=== PATIENT | female | born 1945 | race Caucasian/White ===

== ENCOUNTER 2023-01-05 10:14 | Outpatient (OUT) | payer MEDICARE, SELFPAY ==
--- NOTE | 2023-01-05 10:21 | CT_ITS ---
[address] [address] Patient Name: NUVIA ABRAHAM MRN: [id number] date: 1945 Sex: F Assigned Patient Location: CT Current Patient Location: CT Accession/Order Number: [id number] Exam Date: 01/05/2023 10:22 Report Date: 01/05/2023 14:35 At the request of: AMAN JOSEPH Procedure: CT lung screening low-dose EXAMINATION: CT lung screening low-dose HISTORY: Smoker F17.200 . COMPARISON: CT chest 11/10/2021, 11/08/2019 TECHNIQUE: Axial, Coronal, and Sagittal images were created without the administration of IV contrast material. Dose reduction techniques were achieved by using automated exposure control and/or adjustment of mA and/or kV according to patient size and/or use of iterative reconstruction technique. FINDINGS: LUNGS: Stable 8 mm nodule within right lower lobe superior segment. Stable 10 mm nodule within lingula. Mild emphysematous changes. Calcification of the bronchial pozo bilaterally, unchanged. No significant mucous plugging. PLEURA: No mass, effusion, or pneumothorax. VASCULATURE: No abnormality. SCOTTIE: No mass or pathologic adenopathy. MEDIASTINUM: No mass or pathologic adenopathy. CARDIAC: Atherosclerotic disease. Moderate narrowing of upper abdominal aorta. AORTA: No aneurysm or dissection. CHEST WALL: No mass or axillary adenopathy BONES: Marked degenerative disc disease of the visible lower cervical spine. No bone lesion or fracture. LIMITED ABDOMEN: No suspicious findings. Limited images of the upper abdomen. OTHER: Negative. CT/CT lung screening low-dose IMPRESSION: 1. Lung-RADS 2- Benign Appearance or Behavior. Nodules with a very low likelihood of becoming a clinically active cancer due to size or lack of growth. Follow-up CT Chest in 1 year. Electronically authenticated by: GINGER BROOKS Date: 01/05/2023 14:35
--- NOTE | 2023-01-05 10:23 | MM_ITS ---
Patient: NUVIA ABRAHAM Exam Date: 01/05/2023 : 1945 Gender:F Ordering : DR AMAN GE Admission #: [id number] Family : DR WILY PRADO M.D. Order #: [id number] CLICK HERE TO VIEW EXAM RADIOLOGY REPORT PROCEDURE: MM TOMOSYNTHESIS SCREENING BI COMPARISON: MG MAMM SCREEN 3D [place] CAD, 11/10/2021. MG MAMM [place] SCRN W CAD DIG, 11/15/2019. MG MAMM [place] SCRN W CAD DIG, 08/09/2018. INDICATIONS: Screening Calculator Name NCI Breast Cancer Risk Assessment Tool 5 Year Breast Cancer Risk 10.70% Lifetime Breast Cancer Risk 21.50% Personal Breast Cancer No Personal Ovarian Cancer No Treatments None Family Cancers Mother with breast cancer at age ~50; Sister with breast cancer at age ~60. LOCATION: [facility] BREAST COMPOSITION: Scattered areas fibroglandular density. FINDINGS: DIAGNOSTIC CATEGORY 2--BENIGN FINDING: RIGHT BREAST: No significant suspicious finding. Scattered benign-appearing calcifications are present. No significant change has occurred. LEFT BREAST: No significant suspicious finding. Scattered benign-appearing calcifications are present. Scattered benign-appearing lymph nodes are present. No significant change has occurred. RECOMMENDATIONS: ROUTINE MAMMOGRAM AND CLINICAL EVALUATION IN 12 MONTHS. PLEASE NOTE: A NORMAL MAMMOGRAM DOES NOT EXCLUDE THE POSSIBILITY OF BREAST CANCER. A CLINICALLY SUSPICIOUS PALPABLE LUMP SHOULD BE BIOPSIED. Dictated by: Camacho Dumont M.D. on 01/05/2023 at 13:38 Approved by: Camacho Dumont M.D. on 01/05/2023 at 13:41
== END 2023-01-05 10:15 | disposition home or self-care (01) ==
LOC: CT 10:14
PROVIDERS: PCP Family Medicine; Visit Provider Physician Assistant
DX: F17.200 Nicotine dependence, unspecified, uncomplicated (principal); Z12.31 Encounter for screening mammogram for malignant neoplasm of breast; Z80.3 Family history of malignant neoplasm of breast; R91.8 Other nonspecific abnormal finding of lung field
CPT/HCPCS: 71271; 77063; 77067

== ENCOUNTER 2023-01-13 11:00 | Emergency (ER) | payer MEDICARE, SELFPAY ==
[2023-01-13 11:04] VITALS: BP 181/64; PULSE 64; RESP 16; TEMP 36.4; O2SAT 95; BMI 33.8
--- NOTE | 2023-01-13 11:11 | PC.NURSE ---
Pt had a choking epsiode on a hard boiled egg. Pt's daughter did the Heimlich with no relief. Pt was able to breath and drink during this but was coughing and states she feels fine now just that her throat feels irritated. Pt states has had similar episodes of this in the past and has never been told she has strictures or anything in esophagus.
--- NOTE | 2023-01-13 11:21 | ED_ITS ---
HPI - General Adult General Chief complaint: Shortness of Breath/Dyspnea Stated complaint: CHOKING Time Seen by Provider: 01/13/23 11:18 Source: patient Mode of arrival: ambulance Limitations: no limitations History of Present Illness HPI narrative: Presenting to us after she had an episode of choking while she eating a boiled egg she did mention that she was eating very fast and maybe this is the reason, she does not have a problem frequently with the swallowing The patient daughter tried to give her the Heimlich maneuver but it all resolved by the time the EMS got there and the patient had no difficulty breathing The patient denies any difficulty breathing at the moment no complaints Related Data Allergies Allergy/AdvReac Type Severity Reaction Status Date / Time petrmiketum,white AdvReac Severe Blister Verified 01/13/23 11:08 [From Petroleum Jelly] tagemet AdvReac Severe Diarrhea Uncoded 01/13/23 11:08 Review of Systems ROS Status of ROS 10 or more systems reviewed and unremarkable except as noted in history and below [facility] Social History Smoking status: Current every day smoker Exam Narrative Exam Narrative: Nurses notes and vital signs reviewed and patient is not hypoxic. General: Well-appearing and in no apparent distress. Skin: Warm, dry, no pallor noted. No rash. Head: Normocephalic, atraumatic. Neck: Supple, non-tender. Eye: Pupils are equal, round and EOMI. No scleral icterus. Ears, Nose, Mouth, and Throat: TM are clear, no nasal mucosal hypertrophy. Oral mucosa is moist, no posterior oropharynx erythema, uvula is mid-line Cardiovascular: Regular Rate and Rhythm without murmur, gallop or rub. Respiratory: No accessory muscle use or respiratory distress. Lungs are clear to auscultation, no wheezing, rales or rhonchi Chest Wall: no tenderness Back: No midline thoracic or lumbar vertebral tenderness. No CVA tenderness Musculoskeletal: normal ROM, no calf or popliteal tenderness, no lower extremity edema/swelling GI: Abdomen is soft, non-distended. Normal bowel sounds. No masses appreciated. No tenderness to palpation. No rebound, guarding, or rigidity noted. Neurological: A&O x4. No cranial nerve dysfunction observed. No truncal ataxia. Moves all extremities. Sensation intact. Psychiatric: Cooperative and interactive. Normal mood and affect. Constitutional Vital Signs, click to edit/add: Last Vital Signs Temp 97.6 F 01/13/23 11:04 Pulse 64 01/13/23 11:04 Resp 16 01/13/23 11:04 BP 181/64 H 01/13/23 11:04 Pulse Ox 95 01/13/23 11:04 O2 Del Method Room Air 01/13/23 11:04 Course Vital Signs Vital signs: Vital Signs Temperature 97.6 F 01/13/23 11:04 Pulse Rate 64 01/13/23 11:04 Respiratory Rate 16 01/13/23 11:04 Blood Pressure 181/64 H 01/13/23 11:04 Pulse Oximetry 95 01/13/23 11:04 Oxygen Delivery Method Room Air 01/13/23 11:04 Temperature 97.6 F 01/13/23 11:04 Pulse Rate 64 01/13/23 11:04 Respiratory Rate 16 01/13/23 11:04 Blood Pressure 181/64 H 01/13/23 11:04 Pulse Oximetry 95 01/13/23 11:04 Oxygen Delivery Method Room Air 01/13/23 11:04 Medical Decision Making MDM Narrative Medical decision making narrative: The patient examination was completely benign her lung examination was normal with good air entry bilaterally She does not have any complaint at the moment but I did explain to her that she need to follow-up with a primary care doctor for further evaluation of her swallow because could be underlying problem The patient to avoid eating anything that hard or in big size The patient also was noted to have elevated blood pressure which according to her is a old problem as she has a history of hypertension The patient is to follow up with primary care physician in next 2-3 days or to return to the emergency department should any of the signs or symptoms worsen or new symptoms develop. The patient agrees with the following Diagnosis and Treatment plan and the patient will be discharged home. Discharge Plan Discharge Chief Complaint: Shortness of Breath/Dyspnea Clinical Impression: Choking Patient Disposition: Home, Self-Care Time of Disposition Decision: 11:19 Condition: Good Mode of Transportation: Private Vehicle Instructions: Food Impaction (ED) Stand Alone Forms: Portal Instructions Referrals: WILY PRADO [Primary Care Provider] - 1 week
== END 2023-01-13 11:40 | disposition home or self-care (01) ==
PROVIDERS: Emergency Provider Emergency Medicine; PCP Family Medicine
DX: T17.928A Food in respiratory tract, part unspecified causing other injury, initial encounter (principal); F17.210 Nicotine dependence, cigarettes, uncomplicated
CPT/HCPCS: 99283

== ENCOUNTER 2023-05-15 01:44 | Observation (INO) | payer MEDICARE, SELFPAY ==
[2023-05-15] VITALS (30 sets, daily range): BP systolic 182–271; BP diastolic 68–106; PULSE 60–80; RESP 2–28; TEMP 36.4–36.7; O2SAT 94; BMI 29.6
--- NOTE | 2023-05-15 01:48 | CT_ITS ---
The [address] [address] Patient Name: NUVIA ABRAHAM MRN: [id number] date: 1945 Sex: F Assigned Patient Location: ER Current Patient Location: ER Accession/Order Number: [id number] Exam Date: 05/15/2023 02:01 Report Date: 05/15/2023 02:50 At the request of: TERRANCE GENAO Procedure: CT head/brain wo con EXAM: CT head/brain wo con HISTORY: fall COMPARISON: CT head, 05/15/2023. TECHNIQUE: Nonenhanced CT imaging of the head with sagittal and coronal reconstructions. Dose reduction techniques were achieved by using automated exposure control and/or adjustment of mA and/or kV according to patient size and/or use of iterative reconstruction technique. FINDINGS: No intracranial hemorrhage, edema, mass effect or midline shift is seen. The brain parenchyma, ventricles and extra-axial CSF spaces appear age-appropriate. The calvarium and imaged facial bones appear intact. There is a right maxillary retention cyst or polyp. The paranasal sinuses are otherwise clear. There is nasal septal deviation to the right. The bilateral mastoid air cells are clear. No extracranial soft tissue gas, loculated fluid or foreign body is seen. CT/CT head/brain wo con IMPRESSION: No calvarial fracture or acute intracranial abnormality. Electronically authenticated by: SON SHELLEY Date: 05/15/2023 02:50
--- NOTE | 2023-05-15 01:48 | CT_ITS ---
[address] [address] Patient Name: NUVIA ABRAHAM MRN: [id number] date: 1945 Sex: F Assigned Patient Location: Current Patient Location: Accession/Order Number: [id number] Exam Date: 05/15/2023 02:01 Report Date: 05/15/2023 02:31 At the request of: TERRANCE GENAO Procedure: CT cervical spine wo con EXAMINATION: CT Cervical Spine without IV Contrast TECHNIQUE: Standard protocol axial Cervical spine CT was performed without intravenous contrast. Multiplanar reformatted images were created according to the routine protocol. QPP DOCUMENTATION: At least one of the following dose reduction techniques was utilized: Iterative reconstruction, and/or Automatic Exposure Control, and/or mA/kV adjustment based on body size. INDICATION: . fall COMPARISON: None FINDINGS: Segmentation: There are 7 cervical vertebrae. Alignment: Minimal anterolisthesis of C3 on C4 and C4 on C5. Vertebrae: No fractures or significant losses of vertebral body heights. Intervertebral Discs: Moderate degenerative disc disease at C5-C6 and C6-C7. There are anterior endplate osteophytes at these levels. Spinal Canal: There are small posterior disc osteophyte complexes at C5-C6 and C6-C7 which contribute to mild spinal canal narrowing. Neural foramina: There is multilevel facet arthropathy which is most severe bilaterally at C3-C4 and on the right at C4-C5 and C5-C6. There is also mild uncovertebral arthropathy at several levels. These findings result in mild foraminal narrowing at C3-C4 and C5-C6. Paraspinal soft tissues: Unremarkable. Mild emphysematous changes within the upper lungs. CT/CT cervical spine wo con IMPRESSION: 1. No CT evidence of acute abnormalities throughout the cervical spine. 2. Multilevel degenerative changes. Electronically authenticated by: CARLOZ VALDEZ Date: 05/15/2023 02:31
--- NOTE | 2023-05-15 01:54 | ED_ITS ---
HPI - Fall General Chief Complaint: Fall Stated Complaint: FALL Time Seen by Provider: 05/15/23 01:47 Source: patient Mode of arrival: ambulance History of Present Illness HPI Narrative: 77-year-old female presents to the emergency department for a fall. She fell and hit the back of her head. She takes Plavix and aspirin. She complains of headache. She was transported here by paramedics with a c-collar in place. No other apparent injury. She was recently started on baclofen. She fell just before coming into the emergency department. Related Data Home Medications Medication Instructions Recorded Confirmed B-Complex 05/15/23 CoQ-10 30 mg PO 05/15/23 Fish Oil 1,000 mg PO 05/15/23 Lantus Solostar U-100 Insulin 05/15/23 Miralax 17 g 05/15/23 [place] Oil 05/15/23 Ventolin HFA 05/15/23 Zyrtec 10 mg PO 05/15/23 alpha lipoic acid 200 mg capsule 200 mg PO DAILY 05/15/23 05/15/23 aspirin 81 mg capsule 81 mg PO DAILY 05/15/23 05/15/23 atorvastatin 20 mg tablet 20 mg PO DAILY 05/15/23 05/15/23 baclofen 10 mg tablet 10 mg PO Q12H 05/15/23 05/15/23 calcium citrate-vitamin D3 05/15/23 clopidogrel 75 mg tablet 75 mg PO DAILY 05/15/23 05/15/23 famotidine 20 mg PO 05/15/23 fenofibrate nanocrystallized 145 145 mg PO 05/15/23 mg tablet ferrous sulfate 325 mg PO 05/15/23 gabapentin 600 mg tablet 600 mg PO Q8H 05/15/23 05/15/23 hydrochlorothiazide 25 mg tablet 25 mg PO DAILY 05/15/23 05/15/23 ipratropium 0.5 mg-albuterol 3 mg 3 ml inhalation Q6H 05/15/23 05/15/23 (2.5 mg base)/3 mL nebulization soln levothyroxine 88 mcg tablet 88 mcg PO DAILY 05/15/23 05/15/23 lisinopril 40 mg tablet 40 mg PO DAILY 05/15/23 05/15/23 magnesium 30 mg PO 05/15/23 melatonin 5 mg capsule 5 mg PO 05/15/23 meloxicam 15 mg tablet 15 mg PO DAILY 05/15/23 05/15/23 metoprolol tartrate 25 mg tablet 25 mg PO TID 05/15/23 05/15/23 multivitamin (Daily Multi-Vitamin 1 tab PO DAILY 05/15/23 05/15/23 tablet) niacin 500 mg PO 05/15/23 omeprazole 20 mg capsule,delayed 20 mg PO 05/15/23 release oxcarbazepine 300 mg tablet 300 mg PO BID 05/15/23 05/15/23 sitagliptin phosphate 50 2 tab PO DAILY 05/15/23 05/15/23 mg-metformin 500 mg tablet (Janumet) sodium chloride 1,000 mg PO 05/15/23 tiotropium 2.5 mcg-olodaterol 2.5 2 puff inhalation Q24H 05/15/23 05/15/23 mcg/actuation mist for inhalation (Stiolto Respimat) torsemide 10 mg tablet 10 mg PO DAILY 05/15/23 05/15/23 tramadol 50 mg tablet 100 mg PO Q6H PRN pain 05/15/23 05/15/23 vitamin E 268 mg (400 unit) capsule 268 mg PO DAILY 05/15/23 05/15/23 zinc gluconate 50 mg PO 05/15/23 Allergies Allergy/AdvReac Type Severity Reaction Status Date / Time petrolatum,white AdvReac Severe Blister Verified 01/13/23 11:08 [From Petroleum Jelly] tagemet AdvReac Severe Diarrhea Uncoded 01/13/23 11:08 Review of Systems ROS Narrative A ten point review of systems is negative except as noted above. PFSH PFSH Social History Smoking status: Current every day smoker Exam Narrative Exam Narrative: Nurses note and vital signs reviewed and patient is not hypoxic. General: The patient appears well and in no apparent distress. Patient is resting comfortably on cart. Skin: Warm, dry, no pallor noted. There is no rash noted. Head: Normocephalic Eye: Normal conjunctiva, no drainage Ears, Nose, Mouth, and Throat: oral mucosa is moist. Nares patent. Cardiovascular: Regular Rate and Rhythm Respiratory: Patient is in no distress, no accessory muscle use, lungs are clear to auscultation, no wheezing, rales or rhonchi Back: non-tender GI: soft and nontender Musculoskeletal: no tenderness to palpation at all four extremities. Neurological: A&O x4, normal speechwith low to answer questions but answers appropriately Psychiatric: Cooperative Constitutional Vital Signs, click to edit/add: Last Vital Signs Temp 98.0 F 05/15/23 01:43 Pulse 62 05/15/23 01:43 Resp 16 05/15/23 01:43 BP 264/90 H 05/15/23 01:53 Pulse Ox 94 L 05/15/23 01:43 O2 Del Method Room Air 05/15/23 01:43 Course Vital Signs Vital signs: Vital Signs Temperature 98.0 F 05/15/23 01:43 Pulse Rate 62 05/15/23 01:43 Respiratory Rate 16 05/15/23 01:43 Blood Pressure 268/98 H 05/15/23 01:43 Pulse Oximetry 94 L 05/15/23 01:43 Oxygen Delivery Method Room Air 05/15/23 01:43 Temperature 98.0 F 05/15/23 01:43 Pulse Rate 62 05/15/23 01:43 Respiratory Rate 16 05/15/23 01:43 Blood Pressure 264/90 H 05/15/23 01:53 Pulse Oximetry 94 L 05/15/23 01:43 Oxygen Delivery Method Room Air 05/15/23 01:43 MDM - Fall MDM Narrative Medical decision making narrative: CT brain and CT C-spine are negative. Bloodwork nonspecific. The patient was already on melatonin and gabapentin and Trileptal and Ultram and then baclofen was added this week. Since then she's had increasing weakness and has been sleeping a lot. My clinical impression is that her symptoms are due to overmedication and she's being admitted. Findings discussed with her family. Differential Diagnosis Differential diagnosis: Likely syncope and other (intracranial hemorrhage, fall, head contusion) Lab Data Attestation: I reviewed the patient's lab results. Labs: Lab Results 05/15/23 Range/Units 01:43 WBC 6.7 (4.0-11.0) 10^3/uL RBC 4.77 (4.20-5.40) 10^6/uL Hgb 14.6 (12.0-16.0) g/dL Hct 44.2 (36.0-48.0) % MCV 92.7 (81.0-99.0) fL MCH 30.6 (26.7-34.0) pg MCHC 33.0 (29.9-35.2) g/dL RDW 14.7 (11.0-15.0) % Plt Count 308 (150-450) 10^3/uL MPV 9.1 L (9.5-13.5) fL Neut % (Auto) 63.9 (43.0-75.0) % Lymph % (Auto) 21.2 (20.5-60.0) % Schleicher % (Auto) 10.9 (1.7-12.0) % Eos % (Auto) 2.4 (0.9-7.0) % Baso % (Auto) 0.6 (0.2-2.0) % Neut # (Auto) 4.3 (1.4-6.5) 10^3/uL Lymph # (Auto) 1.4 (1.2-3.8) 10^3/uL Schleicher # (Auto) 0.7 (0.3-0.8) 10^3/uL Eos # (Auto) 0.2 (0.0-0.7) 10^3/uL Baso # (Auto) 0.0 (0.0-0.1) 10^3/uL Abs Immat Gran (auto) 0.07 H (0.00-0.03) 10^3/uL Imm/Tot Granulo (auto) 1.0 H (0.0-0.5) % Sodium 138 (136-145) mmol/L Potassium 3.6 (3.5-5.1) mmol/L Chloride 101 (98-107) mmol/L Carbon Dioxide 31.4 (21.0-32.0) mmol/L Anion Gap 9.2 BUN 25.0 H (7.0-18.0) mg/dL Creatinine 0.86 (0.55-1.02) mg/dL Est GFR ( Amer) >60 (>=60) Est GFR (Non-Af Amer) >60 (>=60) BUN/Creatinine Ratio 29.1 Glucose 100 (74-106) mg/dL Calcium 10.2 H (8.5-10.1) mg/dL Imaging Data CT C-spine and CT brain: Radiologist's impression: Procedure: CT cervical spine wo con EXAMINATION: CT Cervical Spine without IV Contrast TECHNIQUE: Standard protocol axial Cervical spine CT was performed without intravenous contrast. Multiplanar reformatted images were created according to the routine protocol. Q DOCUMENTATION: At least one of the following dose reduction techniques was utilized: Iterative reconstruction, and/or Automatic Exposure Control, and/or mA/kV adjustment based on body size. INDICATION: . fall COMPARISON: None FINDINGS: Segmentation: There are 7 cervical vertebrae. Alignment: Minimal anterolisthesis of C3 on C4 and C4 on C5. Vertebrae: No fractures or significant losses of vertebral body heights. Intervertebral Discs: Moderate degenerative disc disease at C5-C6 and C6-C7. There are anterior endplate osteophytes at these levels. Spinal Canal: There are small posterior disc osteophyte complexes at C5-C6 and C6-C7 which contribute to mild spinal canal narrowing. Neural foramina: There is multilevel facet arthropathy which is most severe bilaterally at C3-C4 and on the right at C4-C5 and C5-C6. There is also mild uncovertebral arthropathy at several levels. These findings result in mild foraminal narrowing at C3-C4 and C5-C6. Paraspinal soft tissues: Unremarkable. Mild emphysematous changes within the upper lungs. IMPRESSION: 1. No CT evidence of acute abnormalities throughout the cervical spine. 2. Multilevel degenerative changes. Electronically authenticated by: CARLOZ VALDEZ Date: 05/15/2023 02:31 Procedure: CT head/brain wo con EXAM: CT head/brain wo con HISTORY: fall COMPARISON: CT head, 05/15/2023. TECHNIQUE: Nonenhanced CT imaging of the head with sagittal and coronal reconstructions. Dose reduction techniques were achieved by using automated exposure control and/or adjustment of mA and/or kV according to patient size and/or use of iterative reconstruction technique. FINDINGS: No intracranial hemorrhage, edema, mass effect or midline shift is seen. The brain parenchyma, ventricles and extra-axial CSF spaces appear age-appropriate. The calvarium and imaged facial bones appear intact. There is a right maxillary retention cyst or polyp. The paranasal sinuses are otherwise clear. There is nasal septal deviation to the right. The bilateral mastoid air cells are clear. No extracranial soft tissue gas, loculated fluid or foreign body is seen. IMPRESSION: No calvarial fracture or acute intracranial abnormality. Electronically authenticated by: SON SHELLEY Date: 05/15/2023 02:50 ECG Data Attestation: I personally reviewed and interpreted this ECG as follows: (EKG on my interpretation shows sinus rhythm with a rate of 58 and no acute change) Discharge Plan Discharge Chief Complaint: Fall Clinical Impression: Medication side effect, Generalized weakness Patient Disposition: Admitted as Observation Time of Disposition Decision: 03:18 Condition: Good Prescriptions / Home Meds: No Action baclofen 10 mg tablet 10 mg PO Q12H clopidogrel 75 mg tablet 75 mg PO DAILY fenofibrate nanocrystallized 145 mg tablet 145 mg PO gabapentin 600 mg tablet 600 mg PO Q8H hydrochlorothiazide 25 mg tablet 25 mg PO DAILY ipratropium-albuterol 0.5 mg-3 mg(2.5 mg base)/3 mL solution for nebulization 3 ml INHALATION Q6H levothyroxine 88 mcg tablet 88 mcg PO DAILY lisinopril 40 mg tablet 40 mg PO DAILY meloxicam 15 mg tablet 15 mg PO DAILY metoprolol tartrate 25 mg tablet 25 mg PO TID omeprazole 20 mg capsule,delayed release(DR/EC) 20 mg PO oxcarbazepine 300 mg tablet 300 mg PO BID Janumet 50-500 mg tablet 2 tab PO DAILY Stiolto Respimat 2.5-2.5 mcg/actuation mist 2 puff INHALATION Q24H torsemide 10 mg tablet 10 mg PO DAILY tramadol 50 mg tablet 100 mg PO Q6H PRN (Reason: pain) alpha lipoic acid 200 mg capsule 200 mg PO DAILY vitamin E 268 mg (400 unit) capsule 268 mg PO DAILY aspirin 81 mg capsule 81 mg PO DAILY atorvastatin 20 mg tablet 20 mg PO DAILY B-Complex calcium citrate-vitamin D3 CoQ-10 30 mg PO [place] Oil famotidine 20 mg PO ferrous sulfate 325 mg PO Fish Oil 1,000 mg PO melatonin 5 mg capsule 5 mg PO magnesium 30 mg PO multivitamin [Daily Multi-Vitamin] Tablet 1 tab PO DAILY niacin 500 mg PO sodium chloride 1,000 mg PO Miralax 17 g Lantus Solostar U-100 Insulin Ventolin HFA zinc gluconate 50 mg PO Zyrtec 10 mg PO Stand Alone Forms: Portal Instructions Referrals: WILY PRADO [Primary Care Provider] - 1 week
--- NOTE | 2023-05-15 01:58 | ECG_ITS ---
The [facility] Test Date: 2023-05-15 Pat Name: NUVIA ABRAHAM Department: Room: - Gender: Female Lan Support Specialist: : 1945 Requested By: WILY PRADO Order Number: [id number] Reading MD: RAIN CLARK Measurements Intervals [place] Rate: 58 P: 70 ME: 164 QRS: 66 QRSD: 92 T: 43 QT: 446 QTc: 443 Interpretive Statements [address]/T wave changes, can't exclude inferolateral ischemia 9130 borderline ECG No previous ECG available for comparison Electronically Signed On 05-16-2023 17:33:55 EST by RAIN CLARK
--- NOTE | 2023-05-15 01:59 | PC.NURSE ---
Patient brought in by EMS after fallinng at home. She was walking out of bathroom and fell backwards, hitting her head. She is on Plavix and Aspirin. Her daughter that she lives with states she was started on Baclofen last month and has been having episodes of grogginess and being slow to respond since starting this medication. On arrival to the ED, patient is very slow to respond, although she does answer questions appropriately when she is able to wake up long enough to respond. She admits to pain in her head but denies pain anywhere else.
[2023-05-15 02:07] LABS: Basophils Percent Auto 0.6 % (0.2-2.0); Eosinophils Absolute Auto 0.2 10^3/uL (0.0-0.7); Eosinophils Percent Auto 2.4 % (0.9-7.0); Hematocrit 44.2 % (36.0-48.0); Hemoglobin 14.6 g/dL (12.0-16.0); Immature Granulocytes Abs Auto 0.07 10^3/uL (0.00-0.03); Lymphocytes Absolute Auto 1.4 10^3/uL (1.2-3.8); Lymphocytes Percent Auto 21.2 % (20.5-60.0); Mean Corpuscular Hemoglobin 30.6 pg (26.7-34.0); Mean Corpuscular Volume 92.7 fL (81.0-99.0); Mean Platelet Volume 9.1 fL (9.5-13.5); Monocytes Absolute Auto 0.7 10^3/uL (0.3-0.8); Monocytes Percent Auto 10.9 % (1.7-12.0); Neutrophils Absolute Auto 4.3 10^3/uL (1.4-6.5); Neutrophils Percent Auto 63.9 % (43.0-75.0); Platelet Count 308 10^3/uL (150-450); Red Blood Count 4.77 10^6/uL (4.20-5.40); Red Cell Distribution Width 14.7 % (11.0-15.0); White Blood Count 6.7 10^3/uL (4.0-11.0)
[2023-05-15 02:14] LABS: Anion Gap 9.2; BUN Creatinine Ratio 29.1; Calcium 10.2 mg/dL (8.5-10.1); Carbon Dioxide 31.4 mmol/L (21.0-32.0); Chloride 101 mmol/L (98-107); Estimated GFR (African America >60 (>=60); Estimated GFR (Non-African Ame >60 (>=60); Glucose 100 mg/dL (74-106); Potassium 3.6 mmol/L (3.5-5.1); Sodium 138 mmol/L (136-145)
[2023-05-15] MEDS: HYDRALAZINE HCL 20 MG/ML VIAL 10 MG IVP (03:48)
--- NOTE | 2023-05-15 05:36 | W.PM.TELEPN ---
Progress Note: Subjective Subjective Interval history: CC: Fall HPI: This is a 77 years old female with past medical history significant for diabetes, hypertension, chronic back pain who presents for evaluation of change in mental status, confusion, fall. Apparently patient taking multiple medications for management of her chronic back pain. Recently baclofen been added to his regimen. Family stating that with addition of the medication patient become more confused, obtunded, had difficulty walking and finally fell on the day of her presentation. On evaluation emergency room patient found to be profoundly hypertensive. She responded to IV hydralazine. Trauma workup was negative. Exam Narrative Exam Narrative: Physical Exam: Not in distress, pleasant, lucid, cooperative, Head - atraumatic, eyes - pupils equal, round, reactive to light, extra ocular movement intact, MMM Neck - supple, thyroid not enlarged, LN not palpated Lungs - clear to auscultation, no dullness on percussion CVS - heart sounds S1, S2, no additional murmurs gallop, regular rate and rhythm Gastrointestinal?abdomen is soft, non-tender, non-distended, no organomegaly, positive bowel sounds Extremities no clubbing, cyanosis or edema Neurological?cranial nerve II?XII grossly intact, no meningeal signs, no cerebellar signs, no sensory deficit Musculoskeletal - joints, no effusions, ROM preserved Dermatological - the skin dry, warm, no rashes Psychiatric?patient is AAO X3, patient has normal affect Constitutional Vital Signs, click to edit/add: Last Vital Signs Temp 97.8 F 05/15/23 04:41 Pulse 69 05/15/23 04:46 Resp 16 05/15/23 04:41 BP 212/75 H 05/15/23 04:41 Pulse Ox 94 L 05/15/23 04:46 O2 Del Method Room Air 05/15/23 04:46 Progress Note: Objective Labs Labs: Short CBC 05/15/23 Range/Units 01:43 WBC 6.7 (4.0-11.0) 10^3/uL Hgb 14.6 (12.0-16.0) g/dL Hct 44.2 (36.0-48.0) % Plt Count 308 (150-450) 10^3/uL BMP 05/15/23 01:43 Sodium 138 Potassium 3.6 Chloride 101 Carbon Dioxide 31.4 BUN 25.0 H Creatinine 0.86 Glucose 100 Calcium 10.2 H Progress Note: A&P Assessment and Plan (1) Toxic encephalopathy: Assessment and Plan: Most probably related to side effect of the medication, especially baclofen and combination of with the rest of your medications. Medications currently on hold. Anticipate resolution of the symptoms within the next 12-24 hours. Will going to provide fall precautions. Symptomatic care. (2) Diabetes: Assessment and Plan: I ordered ADA diet, Accu-Cheks, coverage with insulin sliding scale (3) Hypertension: Assessment and Plan: Patient's blood pressure seems to be poorly controlled on presentation. Home medications restarted. Continue to utilize hydralazine as needed (patient is relatively bradycardic). (4) Chronic back pain: Assessment and Plan: Defer to outpatient management. Hold on baclofen for now Plan As the provider for the telehealth service, I attest that I introduced myself to the patient, provided my credentials, disclosed by location and determined that based on a review of the patient's chart and discussion with members of the patient's treatment team, telemedicine via real-time, 2 way, and interactive audio and video platform is an appropriate and effective means of providing the service. ?The patient and I mutually agree this visit is appropriate for telemedicine. ?The virtual encounter was taken place from? [place], [place]. ?The encounter took approximately 35 minutes. ?The nurse was present during the entire time and I was able to move the stethoscope in appropriate directions. ?The patient was evaluated at the Hospital ? Portions of this note may be dictated using [employer]ged[employer] voice recognition software. Variances in spelling and vocabulary are possible and unintentional. Not all errors may be caught and/or corrected. Please notify the author if any discrepancies are noted and/or if the meaning of any statement is unclear.? ? Patient verbally consented for treatment via video visit with patient currently located at the [facility] and provider located in [place]. Telemedicine Attestation Telemedicine Attestation I conducted this encounter from [[place]] via secure live, [id number] video conference with the patient, located at [facility] with [toxic encephalopathy]. Prior to the interview, the risks and benefits of telemedicine were discussed with the patient and verbal consent was obtained.
[2023-05-15 06:20] LABS: Basophils Absolute Auto 0.1 10^3/uL (0.0-0.1); Basophils Percent Auto 0.4 % (0.2-2.0); Eosinophils Absolute Auto 0.1 10^3/uL (0.0-0.7); Eosinophils Percent Auto 0.8 % (0.9-7.0); Hematocrit 45.2 % (36.0-48.0); Hemoglobin 14.8 g/dL (12.0-16.0); Immature Granulocytes Abs Auto 0.06 10^3/uL (0.00-0.03); Immature Granulocytes Pct Auto 0.5 % (0.0-0.5); Lymphocytes Absolute Auto 1.8 10^3/uL (1.2-3.8); Lymphocytes Percent Auto 14.3 % (20.5-60.0); Mean Corpuscular HGB Conc 32.7 g/dL (29.9-35.2); Mean Corpuscular Hemoglobin 30.5 pg (26.7-34.0); Monocytes Absolute Auto 0.8 10^3/uL (0.3-0.8); Monocytes Percent Auto 6.8 % (1.7-12.0); Neutrophils Absolute Auto 9.6 10^3/uL (1.4-6.5); Neutrophils Percent Auto 77.2 % (43.0-75.0); Platelet Count 291 10^3/uL (150-450); Red Blood Count 4.86 10^6/uL (4.20-5.40); Red Cell Distribution Width 14.6 % (11.0-15.0); White Blood Count 12.4 10^3/uL (4.0-11.0)
[2023-05-15 06:54] LABS: C Reactive Protein <0.50 mg/dL (<=0.50)
[2023-05-15] MEDS: METOPROLOL TARTRATE 25 MG TABLET PO ×2 (07:46→11:45)
[2023-05-15 07:50] LABS: Glucometer 114 mg/dL (74-106)
[2023-05-15] MEDS: CLOPIDOGREL BISULFATE 75 MG TABLET PO (08:51)
[2023-05-15] MEDS: ATORVASTATIN CALCIUM 20 MG TABLET PO (08:51)
[2023-05-15] MEDS: HYDROCHLOROTHIAZIDE 25 MG TABLET PO (08:51)
[2023-05-15] MEDS: LEVOTHYROXINE SODIUM 88 MCG TABLET PO (08:51)
[2023-05-15] MEDS: LISINOPRIL 20 MG TABLET 40 MG PO (08:51)
[2023-05-15] MEDS: ASPIRIN 81 MG TAB.CHEW PO (08:51)
[2023-05-15] MEDS: TORSEMIDE 20 MG TABLET 10 MG PO (08:51)
[2023-05-15 11:40] LABS: Glucometer 119 mg/dL (74-106)
--- NOTE | 2023-05-15 14:53 | PM.HP ---
H&P: HPI History of Present Illness Chief complaint: FALL Narrative: 77 y/o female to ER after a fall. History of chronic back pain and on neurontin, trileptal, and ultram. Recently added baclofen and also uses melatonin QHS. Patient seemed more tired than usual and confused. Fell and hit head. Brought to ER and CT head and C-spine negative. BP initially elevated but responded to IV medicaiton. Patient remained very sedated and concerned of medication side effects. Admitted for monitoring. Improved overnight. Awake and alert this am. Feels well and no new concerns. Review of Systems ROS Constitutional Denies: fever, chills or fatigue Cardiovascular Denies: chest pain, palpitations or edema Respiratory Denies: shortness of breath, cough or wheezing Gastrointestinal Denies: abdominal pain, nausea, vomiting or diarrhea Genitourinary Denies: painful urination [facility] Medical History (Updated 05/15/23 @ 08:42 by Etienne Espitia MD) Medication side effect ?T88.7XXA - Unspecified adverse effect of drug or medicament, initial encounter (ICD-10) Chronic back pain ?M54.9 - Dorsalgia, unspecified (ICD-10) ?G89.29 - Other chronic pain (ICD-10) Diabetes ?E11.9 - Type 2 diabetes mellitus without complications (ICD-10) Choking ?T17.308A - Unspecified foreign body in larynx causing other injury, initial encounter (ICD-10) GERD (gastroesophageal reflux disease) ?K21.9 - Gastro-esophageal reflux disease without esophagitis (ICD-10) Social History Smoking status: Current every day smoker Meds Home Medications and Allergies Home Medications Medication Instructions Recorded Confirmed Type B-Complex 05/15/23 History CoQ-10 30 mg PO DAILY 05/15/23 05/15/23 History Fish Oil 1,000 mg PO 05/15/23 History Lantus Solostar U-100 Insulin 05/15/23 History Miralax 17 g PO .qd PRN constipation 05/15/23 05/15/23 History [place] Oil 05/15/23 History Ventolin HFA 05/15/23 History Zyrtec 10 mg PO .qd PRN allergy symptoms 05/15/23 05/15/23 History alpha lipoic acid 200 mg capsule 200 mg PO DAILY 05/15/23 05/15/23 History aspirin 81 mg capsule 81 mg PO DAILY 05/15/23 05/15/23 History atorvastatin 20 mg tablet 20 mg PO DAILY 05/15/23 05/15/23 History calcium citrate-vitamin D3 05/15/23 History clopidogrel 75 mg tablet 75 mg PO DAILY 05/15/23 05/15/23 History famotidine 20 mg PO 05/15/23 History fenofibrate nanocrystallized 145 145 mg PO .qd 05/15/23 05/15/23 History mg tablet ferrous sulfate 325 mg PO 05/15/23 History gabapentin 600 mg tablet 600 mg PO Q8H 05/15/23 05/15/23 History hydrochlorothiazide 25 mg tablet 25 mg PO DAILY 05/15/23 05/15/23 History ipratropium 0.5 mg-albuterol 3 mg 3 ml inhalation Q6H 05/15/23 05/15/23 History (2.5 mg base)/3 mL nebulization soln levothyroxine 88 mcg tablet 88 mcg PO DAILY 05/15/23 05/15/23 History lisinopril 40 mg tablet 40 mg PO DAILY 05/15/23 05/15/23 History magnesium 30 mg PO 05/15/23 History melatonin 5 mg capsule 5 mg PO 05/15/23 History meloxicam 15 mg tablet 15 mg PO DAILY 05/15/23 05/15/23 History metoprolol tartrate 25 mg tablet 25 mg PO TID 05/15/23 05/15/23 History multivitamin (Daily Multi-Vitamin 1 tab PO DAILY 05/15/23 05/15/23 History tablet) niacin 500 mg PO .qd 05/15/23 05/15/23 History omeprazole 20 mg capsule,delayed 20 mg PO .qd 05/15/23 05/15/23 History release oxcarbazepine 300 mg tablet 300 mg PO BID 05/15/23 05/15/23 History sitagliptin phosphate 50 2 tab PO DAILY 05/15/23 05/15/23 History mg-metformin 500 mg tablet (Janumet) sodium chloride 1,000 mg PO 05/15/23 History tiotropium 2.5 mcg-olodaterol 2.5 2 puff inhalation Q24H 05/15/23 05/15/23 History mcg/actuation mist for inhalation (Stiolto Respimat) torsemide 10 mg tablet 10 mg PO DAILY 05/15/23 05/15/23 History tramadol 50 mg tablet 100 mg PO Q6H PRN pain 05/15/23 05/15/23 History vitamin E 268 mg (400 unit) capsule 268 mg PO DAILY 05/15/23 05/15/23 History zinc gluconate 50 mg PO 05/15/23 History Allergies Allergy/AdvReac Type Severity Reaction Status Date / Time petrolatum,white AdvReac Severe Blister Verified 01/13/23 11:08 [From Petroleum Jelly] tagemet AdvReac Severe Diarrhea Uncoded 01/13/23 11:08 Exam Constitutional Vital Signs, click to edit/add: Last Vital Signs Temp 97.6 F 05/15/23 11:41 Pulse 60 05/15/23 10:50 Resp 10 L 05/15/23 10:50 BP 186/82 H 05/15/23 08:51 Pulse Ox 94 L 05/15/23 04:46 O2 Del Method Room Air 05/15/23 11:41 Documenting provider has reviewed patient's vital signs: yes Common normals: no apparent distress, oriented x3 and alert HENMT Common normals: normocephalic Eye Common normals: PERRL and EOMs intact bilaterally Respiratory Common normals: normal respiratory effort and clear to auscultation bilaterally Cardio Common normals: regular rate, regular rhythm, no gallops, no murmurs and no rub GI Common normals: Normal to inspection, nondistended, normoactive bowel sounds present and non-tender Extremity Common normals: no pedal edema Results Labs Labs: Short CBC 05/15/23 05/15/23 Range/Units 01:43 06:06 WBC 6.7 12.4 H (4.0-11.0) 10^3/uL Hgb 14.6 14.8 (12.0-16.0) g/dL Hct 44.2 45.2 (36.0-48.0) % Plt Count 308 291 (150-450) 10^3/uL BMP 05/15/23 01:43 Sodium 138 Potassium 3.6 Chloride 101 Carbon Dioxide 31.4 BUN 25.0 H Creatinine 0.86 Glucose 100 Calcium 10.2 H Assessment and Plan Assessment and Plan (1) Toxic encephalopathy: (2) Fall in elderly patient: (3) Sedated due to multiple medications: (4) Lumbar degenerative disc disease: (5) Generalized weakness: (6) Type 2 diabetes mellitus with hyperglycemia: (7) Hypertension: (8) PVD (peripheral vascular disease): Plan Admitted after fall and increased sedation related to medication. Improved over time and no further symptoms. Discharge home. Stop baclofen but resume other medication as directed. F/u with PCP in 1-2 weeks and can adjust medication as needed.
== END 2023-05-15 12:42 | disposition home or self-care (01) ==
LOC: ER 03:18 → ICU 04:28
PROVIDERS: Internal Medicine; Admitting Provider Family Medicine; Emergency Provider Emergency Medicine; PCP Family Medicine; Visit Provider Family Medicine
DX: G92.8 Other toxic encephalopathy (principal); R53.1 Weakness; M51.36 Other intervertebral disc degeneration, lumbar region; E11.65 Type 2 diabetes mellitus with hyperglycemia; I73.9 Peripheral vascular disease, unspecified; I10 Essential (primary) hypertension; G89.29 Other chronic pain; M54.9 Dorsalgia, unspecified; T50.915A Adverse effect of multiple unspecified drugs, medicaments and biological substances, initial encounter; F17.210 Nicotine dependence, cigarettes, uncomplicated; Z79.82 Long term (current) use of aspirin; Z79.899 Other long term (current) drug therapy; Z79.890 Hormone replacement therapy; Z79.02 Long term (current) use of antithrombotics/antiplatelets; K21.9 Gastro-esophageal reflux disease without esophagitis; W19.XXXA Unspecified fall, initial encounter
CPT/HCPCS: 36415; 70450; 72125; 80048; 82948; 85025; 86140; 93005; 96374; 99285; G0378; Q3014

== ENCOUNTER 2023-08-12 14:24 | Outpatient (OUT) | payer MEDICARE, SELFPAY ==
--- OUTSIDE RECORDS SUMMARY | 2023-08-12 14:28 | XMS_ITS | CCD ---
Author Organization [facility] Care Team Providers Care Devil Tender Name Role Phone Mikie West Unavailable MD Wily Prado Primary Care Provider MD Wily Prado Referring Provider [phone] CARMELA Tijerina Attending Provider MD Wily Prado Primary Care Provider MD Wily Prado Referring Provider CARMELA Tijerina Attending Provider MD Jesse Tran Attending Provider TODD, DR GINGER Hurley Consulting Unavailable PAY, DR HUNTER Attending Unavailable PAY, DR HUNTER Admitting Unavailable JOHAN, DR JULIEN Primary Care Unavailable PAY, DR HUNTER Consulting Unavailable AUNG ZIMMERMAN Consulting Unavailable ELSIE, AUNG Attending Unavailable ELSIE, AUNG Admitting Unavailable JOHAN, DR JULIEN Primary Care Unavailable MARKER, DR FISHER Attending Unavailable MARKER, DR FISHER Admitting Unavailable MARKER, DR FISHER Consulting Unavailable JOHAN, DR JULIEN Primary Care Unavailable TERRANCE GENAO Consulting Unavailable YAJAIRA, DR LOGAN Hurley Consulting Unavailable YAJAIRA, DR LOGAN Hurley Attending Unavailable YAJAIRA, DR LOGAN Hurley Admitting Unavailable JOHAN, DR JULIEN Primary Care Unavailable KETAN ALVAREZ Consulting Unavailable PAY, DR HUNTER Attending Unavailable PAY, DR HUNTER Admitting Unavailable LUMA BLAKE Consulting Unavailable JOHAN, DR JULIEN Primary Care Unavailable TODD, DR GINGER Hurley Consulting Unavailable ELSIE, AUNG Attending Unavailable ELSIE, AUNG Admitting Unavailable JOHAN, DR JULIEN Primary Care Unavailable TERRANCE GENAO Consulting Unavailable KATIRJI, ZAC Attending Unavailable KATIRPURVI, ZAC Admitting Unavailable ZIEBER, DR GINGER Hurley Consulting Unavailable JOHAN, DR JULIEN Primary Care Unavailable KATKOTERRANCE Consulting Unavailable ROBERT, ROXY Consulting Unavailable MARKER, DR FISHER Consulting Unavailable MARKER, DR FISHER Attending Unavailable MARKER, DR FISHER Admitting Unavailable JOHAN, DR JULIEN Primary Care Unavailable WEST, DR ARIAN Rahman Consulting Unavailable JOHAN, DR JULIEN Primary Care Unavailable HEMMER, DR AMAN Palacio Attending Unavailable HEMMER, DR AMAN Palacio Admitting Unavailable HEMMER, DR AMAN Palacio Consulting Unavailable BEJ, LOGAN Consulting Unavailable JOHAN, DR JULIEN Primary Care Unavailable BEJ, LOGAN Attending Unavailable BEJ, LOGAN Admitting Unavailable HOY, DR DAO Consulting Unavailable HOY, DR DAO Attending Unavailable HOY, DR DAO Admitting Unavailable JOHAN, DR JULIEN Primary Care Unavailable ZIEBER, DR GINGER Hurley Consulting Unavailable PAY, DR HUNTER Consulting Unavailable SAMSA, RHIANNON Consulting Unavailable ZIPSER, ALFONSO Consulting Unavailable GATES, DR LOGAN Hurley Consulting Unavailable GATES, DR LOGAN Hurley Attending Unavailable YAJAIRA, DR LOGAN Hurley Admitting Unavailable JOHAN, DR JULIEN Primary Care Unavailable CARSON VASQUEZ Consulting Unavailable JANET SCHWARTZ Consulting Unavailable MD Wily Prado Primary Care Provider MD Wily Prado Referring Provider CARMELA Tijerina Attending Provider PROVIDER, UNKNOWN Admitting Unavailable PROVIDER, UNKNOWN Attending Unavailable PROVIDER, UNKNOWN Admitting Unavailable PROVIDER, UNKNOWN Attending Unavailable Unavailable Primary Care Provider UnavailMD Wily Zhang Primary Care Provider MD Wily Prado Referring Provider CARMELA Tijerina Attending Provider MD Wily Prado Primary Care Provider MD Wily Prado Referring Provider CARMELA Tijerina Attending Provider MD Wily Prado Primary Care Provider MD Wily Prado Referring Provider CARMELA Tijerina Attending Provider MD Wily Prado Primary Care Provider MD Wily Prado Referring Provider CARMELA Tijerina Attending Provider Wily Prado MD Unavailable Wily Prado MD Primary Care Provider [phone] Taylor Tijerina Attending Unavail able Johan, Rugen M Primary Care Unavailable Dema, Rugen M Referring Unavailable DemTaylor pires Admitting Unavail able JOHAN, RUGEN M Attending Unavailable SONNY SHEFFIELD Attending Unavailable JOHAN, RUGEN M Referring Unavailable BLACKSTONSONNY Attending Unavailable JOHAN, RUGEN M Referring Unavailable BLACKSTONSONNY Attending Unavailable JOHAN, RUGEN M Referring Unavailable LONDON CRABTREE Attending Unavailable JOHAN, RUGEN M Referring Unavailable LONDON CRABTREE Attending Unavailable JOHAN, RUGEN M Referring Unavailable LONDON CRABTREE Attending Unavailable JOHAN, RUGEN M Referring Unavailable DAWIT NEFF Attending Unavailable JOHAN, RUGEN M Referring Unavailable LONDON CRABTREE Attending Unavailable JOHAN, RUGEN M Referring Unavailable LONDON CRABTREE Attending Unavailable JOHAN, RUGEN M Referring Unavailable LONDON CRABTREE Attending Unavailable JOHAN, RUGEN M Referring Unavailable LONDON CRABTREE Attending Unavailable JOHAN, RUGEN M Referring Unavailable LONDON CRABTREE Attending Unavailable JOHAN, RUGEN M Referring Unavailable LONDON CRABTREE Attending Unavailable JOHAN, RUGEN M Referring Unavailable LONDON CRABTREE Attending Unavailable JOHAN, RUGEN M Referring Unavailable Allergies Allergy Classification Reported Allergen(s) Allergy Type Date of Onset Reaction(s) Facility (1 source) Bacitracin / Neomycin / Polymyxin B Drug Allergy Unknown [facility] Other (1 source) Cimetidine Drug Allergy Unknown [facility] Other (8 sources) Bacitracin; Translations: [bacitracin] Drug Allergy 2 [facility] (15 sources) Cimetidine; Translations: [cimetidine] Drug Allergy 2 Unknown [facility] (8 sources) Neomycin; Translations: [neomycin] Drug Allergy 2 Blister [facility] (8 sources) contact metal agent; Translations: [contact metal agent] Propensity to adverse reactions 2 Rash [facility] (9 sources) petrolatum,whit e; Translations: [petrolatum,whi te] Propensity to adverse reactions 2 [facility] (8 sources) polymyxin B; Translations: [polymyxin B] Propensity to adverse reactions 2 [facility] (1 source) Bacitracin / Neomycin / Polymyxin B Drug Allergy 5 [facility] (1 source) Cimetidine Drug Allergy 5 [facility] (7 sources) Bacitracin / Polymyxin B Drug Allergy 3 Unknown [facility] Work Phone: (7 sources) Petrolatum Drug Allergy 3 Unknown [facility] Medications Current Medications Medication Drug Class(es) Dates Sig (Normalized) Sig (Original) [id number] 200 actuat albuterol 0.09 mg/actuat metered dose inhaler (15 sources) beta2-Adrenergic Agonist Start: 12-17-2019 take 1 puff(s) by inhalation four times daily Albuterol Sulfate (Ventolin Hfa) 90 mcg/actuation Hfa Aerosol Inhaler Active 2 PUFF INHALATION Four times daily December 17, 2019 12:00am take 2 puff(s) by in halation every six hours for wheezing Ventolin HFA 108 (90 Base) MCG/ACT inhaler Inhale 2 puffs every 6 (six) hours if needed for wheezing or shortness of breath. 0 Active take 1 puff(s) by in halation every four hours as needed Ventolin HFA 108 (90 Base) MCG/ACT 1 puf f as needed Inhalation every 4 hrs Active albuterol 0.833 mg/ml / ipratropium bromide 0.167 mg/ml inhalation solution (7 sources) Anticholinergic, beta2-Adrenergic Agonist Start: 06-17-2022 ipratropium-albuterol (Duo-Neb) 0.5-2.5 mg/3 mL nebulizer solution Take 3 mL by nebulization every 6 (six) hours. PRN 0 06/17/2022 Active Alpha Lipoic Acid 200 MG (1 source) take 3 capsules by mouth once daily Alpha Lipoic Acid 200 MG 3 capsules Orally one time a day Active ascorbic acid 60 mg / beta carotene 5000 unt / copper sulfate 40 mg / dl-alpha tocopheryl acetate 30 unt / sodium selenite 0.04 mg / zinc oxide 40 mg oral tablet (7 sources) Vitamin C take 1 tablet by mouth once daily Multiple Vitamin (Multivitamin Adult) tablet Take 1 tablet by mouth 1 (one) time each day at the same time. 0 Active aspirin 81 mg delayed release oral tablet (15 sources) Platelet Aggregation Inhibitor, Nonsteroidal Anti-inflammatory Drug Start: 12-17-2019 Aspirin (Magno Low Dose Aspirin) 81 mg Tablet,Delayed Release (Dr/Ec) Active 81 MG PO Daily at bedtime December 17, 2019 12:00am atorvastatin 20 mg oral tablet (15 sources) HMG-CoA Reductase Inhibitor Start: 04-25-2023 atorvastatin (Lipitor) 20 MG tablet Indications: Essential hypertension (CMS/HCC) TAKE 1 TABLET EVERY DAY 90 tablet 3 04/25/2023 Active Start: 12-14-2019 take 20 mg by mouth once daily at bedtime Atorvastatin Active 20 MG PO Daily at bedtime December 14, 2019 12:00am B Complex + C TR - (1 source) B Complex + C TR - as directed Orally Active B Complex Vitamins (B COMPLEX 1 PO) (7 sources) B Complex Vitami ns (B COMPLEX 1 PO) Take 1 tablet by mouth 1 (one) time each day. 0 Active Calcium (1 source) Phosphate Binder, Calcium Calcium 1200+D3 Active calcium carbonate 1500 mg / cholecalciferol 0.01 mg oral tablet (7 sources) Vitamin D Start: 12-17-19 take 1 tablet by mouth once daily before lunch Calcium Carbonate-Vitamin D3 (Calcium 600 + D(3)) 600 mg(1,500mg) -400 unit Tablet Active 1 TAB PO Daily before lunch December 17, 2019 12:00am Calcium Citrate / Vitamin D (7 sources) take 1 tablet by mouth once daily Calcium Citrate-Vitamin D (CALCIUM CITRATE + D3 MAXIMUM PO) Take 1 tablet by mouth 1 (one) time each day. 0 Active cetirizine hydrochloride 10 mg oral tablet (15 sources) Histamine-1 Receptor Antagonist Start: 12-17-19 take 1 tablet by mouth once daily Cetirizine (Zyrtec) 10 mg Tablet Active 10 MG PO every day at noon December 17, 2019 12:00am clopidogrel 75 mg oral tablet (15 sources) [id number] Platelet Inhibitor Start: 12-14-19 take 1 tablet by mouth in the morning clopidogrel (Plavix) 75 MG tablet Indications: Stenosis of carotid artery, unspecified laterality Take 1 tablet (75 mg) by mouth in the morning. 100 tablet 2 12/27/2022 Active docusate sodium 100 mg oral tablet (14 sources) Start: 12-30-19 take 100 mg by mouth once daily Docusate Sodium Active 100 MG PO Daily December 29, 2021 12:00am Docusate Sodium (STOOL SOFTENER LAXATIVE PO) Take 1 tablet by mouth if needed 0 Active evening primrose oil 500 mg oral capsule (8 sources) Start: 12-17-2019 take 1000 mg by mouth once daily Evening Burns Oil Active 1000 MG PO every day at noon December 17, 2019 12:00am take 1 capsule by mouth once alma delia ly Evening Burns Oil 1000 MG 1 capsule Orally one time a day Active EVENING PRIMROSE OIL PO (7 sources) EVENING PRIMROSE OIL PO Take 1 application by mouth 1 (one) time each day. 0 Active famotidine 10 mg oral tablet (15 sources) Histamine-2 Receptor Antagonist Start: 12-17-2019 Famotidine (Pepcid Ac) 10 mg Tablet Active 20 MG PO Daily at bedtime December 17, 2019 12:00am famotidine (Pepc id) 20 MG tablet Take 1 tablet by mouth as needed at bedtime for indigestion or heartburn. 0 Active fenofibrate 145 mg oral tablet (15 sources) Peroxisome Proliferator Receptor alpha Agonist Start: 12-14-2019 take 145 mg by mouth once daily at bedtime Fenofibrate Nanocrystallized Active 145 MG PO Daily at bedtime December 14, 2019 12:00am ferrous sulfate 325 mg oral tablet (7 sources) Start: 12-01-2021 take 1 tablet by mouth once daily ferrous sulfate 325 (65 Fe) MG tablet Take 1 tablet by mouth 1 (one) time each day at the same time. 0 12/01/2021 Active Fish Oils (1 source) take 1 capsule by mouth twice daily Fish Oil 1200 MG 1 capsule Orally Twice a day Active gabapentin 600 mg oral tablet (15 sources) Anti-epileptic Agent Start: 12-14-2019 take 1 tablet by mouth in the morning, then take 1 tablet by mouth in the evening, then take 1 tablet by mouth at bedtime gabapentin (Neurontin) 600 MG tablet Indications: Type 2 diabetes mellitus with diabetic polyneuropathy, with long-term current use of insulin (CMS/HCC) Take 1 tablet (600 mg) by mouth in the morning and 1 tablet (600 mg) in the evening and 1 tablet (600 mg) before bedtime. 300 tablet 1 12/31/2022 Active Horse [place] 300 MG (1 source) take 1 capsule by mouth once daily Horse [place] 300 MG 1 capsule Orally one time a day Active HORSE CHESTNUT PO (7 sources) take 1 tablet by mouth once daily HORSE CHESTNUT PO Take 1 tablet by mouth 1 (one) time each day. 0 Active horse chestnut seed 300 mg oral capsule (7 sources) Start: 12-17-2019 take 300 mg by mouth once daily [place] Active 300 MG PO every day at noon December 17, 2019 12:00am hydroCHLOROthiazide 25 mg oral tablet (15 sources) Thiazide Diuretic Start: 10-06-2020 take 1 tablet by mouth in the morning hydroCHLOROthiazide (HYDRODiuril) 25 MG tablet Indications: Essential hypertension (CMS/HCC) Take 1 tablet (25 mg) by mouth in the morning. 100 tablet 3 12/22/2022 Active 3 ml insulin glargine 100 unt/ml pen injector (15 sources) Insulin Analog Start: 12-14-2019 Insulin Glargine (Lantus Solostar U-100 Insulin) 100 unit/mL (3 mL) insulin pen Active 25 UNIT SUBCUT Daily at bedtime December 14, 2019 12:00am Lantus 100 UNIT/ ML as directed Subcutaneous Active levothyroxine sodium 0.088 mg oral tablet (15 sources) l-Thyroxine Start: 06-01-2023 take 1 tablet by mouth before mealtime levothyroxine (Synthroid) 88 MCG tablet Indications: Acquired hypothyroidism (CMS/HCC) Take 1 tablet (88 mcg) by mouth in the morning. Take before meals. 100 tablet 3 06/01/2023 Active Start: 12-14-2019 take 75 ug by mouth once daily in the morning Levothyroxine Active 75 MCG PO Every morning December 14, 2019 12:00am take 1 tablet by yana once daily in the morning Levothyroxine Sodium 75 MCG 1 tablet in the morning on an empty stomach Orally Once a day Active lisinopril 40 mg oral tablet (15 sources) Angiotensin Converting Enzyme Inhibitor Start: 10-06-2020 take 1 tablet by mouth in the morning lisinopril 40 MG tablet Indications: Essential hypertension (CMS/HCC) Take 1 tablet (40 mg) by mouth in the morning. 100 tablet 3 12/22/2022 Active magnesium gluconate 550 mg oral tablet (7 sources) take 1 tablet by mouth in the morning magnesium 30 MG tablet Take 30 mg by mouth in the morning. 0 Active meloxicam 15 mg oral tablet (7 sources) Nonsteroidal Anti-inflammatory Drug Start: 03-08-2023 meloxicam (Mobic) 15 MG tablet Indications: Carpal tunnel syndrome, unspecified laterality TAKE 1 TABLET EVERY DAY 90 tablet 3 03/08/2023 Active metFORMIN hydrochloride 500 mg / SITagliptin 50 mg oral tablet (15 sources) Biguanide, Dipeptidyl Peptidase 4 Inhibitor Start: 12-31-2022 take 2 tablets by mouth in the morning SITagliptin-metFOR MIN (Janumet) 50-500 MG tablet Indications: Type 2 diabetes mellitus with diabetic polyneuropathy, with long-term current use of insulin (CMS/HCC) Take 2 tablets by mouth in the morning. 200 tablet 3 12/31/2022 Active Start: 12-14-2019 take 2 tablets by mo [facility] once daily Sitagliptin Phos-Metformin (Janumet) 50-500 mg tablet Active 2 TAB PO Daily December 14, 2019 12:00am take 2 tablets one time daily metoprolol tartrate 25 mg oral tablet (15 sources) beta-Adrenergic Sofia Start: 05-23-2023 metopr olol tartrate (Lopressor) 25 MG tablet Indications: Essential hypertension (CMS/HCC) TAKE 1 TABLET THREE TIMES DAILY (IN THE MORNING, IN THE EVENING, AND BEFORE BEDTIME) 270 tablet 3 05/23/2023 Active Start: 10-06-2020 take 25 mg by mouth three times daily Metoprolol Tartrate Active 25 MG PO Three times daily 90 October 06, 2020 12:00am Multivital (1 source) Multivital Activ e Multivitamin (Daily-Sandy) Tablet (7 sources) Start: 12-17-2019 take 1 tablet by mouth once daily at bedtime Multivitamin (Daily-Sandy) Tablet Active 1 TAB PO Daily at bedtime December 16, 2019 11:00pm plus iron Start: 12-17-2019 take 1 tablet by yana th once daily at bedtime Multivitamin (Daily-Sandy) Tablet Active 1 TAB PO Daily at bedtime December 17, 2019 12:00am plus iron naproxen 500 mg oral tablet (8 sources) Nonsteroidal Anti-inflammatory Drug Start: 12-17-2019 take 1 tablet by mouth twice daily Naproxen (Naprosyn) 500 mg Tablet Active 500 MG PO Twice daily December 17, 2019 12:00am take 1 tablet by yana th every twelve hours at mealtime as needed Naproxen 500 MG 1 tablet with food or milk as needed Orally every 12 hrs Active niacin 500 mg oral tablet (15 sources) Nicotinic Acid Start: 12-17-2019 take 500 mg by mouth once daily Niacin Active 500 MG PO every day at noon December 17, 2019 12:00am Tiotropium-Olodat vipul (15 sources) Anticholinergic, beta2-Adrenergic Agonist Start: 09-18-2020 Tiotropium-Olodate rol (Stiolto Respimat) 2.5-2.5 mcg/actuation Mist Active 2 PUFF INHALATION Daily at bedtime September 17, 2020 11:00pm Start: 09-18-2020 Tiotropium-Olo daterol (Stiolto Respimat) 2.5-2.5 mcg/actuation Mist Active 2 PUFF INHALATION Daily at bedtime September 18, 2020 12:00am Stiolto Respimat 2.5-2.5 MCG/ACT aerosol solution inhaler Inhale 2 Inhalation 1 (one) time each day at the same time. 0 Active Stiolto Respimat 2.5-2.5 MCG/ACT TAKE 2 PUFFS BY MOUTH EVERY DAY Inhalation for 90 Active [place] 3-Okr-Ygu-Fish Oil (Fish Oil) 1,000 mg (120 mg-180 mg) Capsule (7 sources) Start: 12-17-2019 take 1 capsule by mouth twice daily [place] 6-Act-Qis-Fish Oil (Fish Oil) 1,000 mg (120 mg-180 mg) Capsule Active 1 CAP PO Twice daily December 16, 2019 11:00pm Start: 12-17-2019 take 1 capsule by [facility] twice daily [place] 4-Syk-Fqr-Fish Oil (Fish Oil) 1,000 mg (120 mg-180 mg) Capsule Active 1 CAP PO Twice daily December 17, 2019 12:00am [place]-3 Fatty Acids (Fish Oil) 1000 MG capsule delayed-release (7 sources) take 1 capsule by mouth once daily [place]-3 Fatty Acids (Fish Oil) 1000 MG capsule delayed-release Take 1 capsule by mouth 1 (one) time each day. 0 Active omeprazole 20 mg delayed release oral capsule (15 sources) Proton Pump Inhibitor Start: 12-30-19 take 20 mg by mouth once daily Omeprazole Active 20 MG PO Daily December 29, 2021 12:00am OXcarbazepine 300 mg oral tablet (13 sources) Anti-epileptic Agent Start: 12-14-19 take 1 tablet by mouth in the morning OXcarbazepine (Trileptal) 300 MG tablet Indications: Other diabetic neurological complication associated with type 2 diabetes mellitus (CMS/HCC) Take 1 tablet (300 mg) by mouth in the morning and 1 tablet (300 mg) before bedtime. 200 tablet 3 10/15/2022 Active polyethylene glycol 3350 43449 mg powder for oral solution (10 sources) Osmotic Laxative Start: 07-31-19 Polyethylene Glycol 3350 (Miralax) 17 gram Powder In Packet Active 17 GM PO Daily July 30, 2022 12:00am Sennosides-Docusate Sodium 8.6-50 MG (1 source) take 1 tablet by mouth once daily in the evening as needed Sennosides-Docusate Sodium 8.6-50 MG 1 tablet in the evening as needed Orally Once a day Active sodium chloride 1000 mg oral tablet (7 sources) take 1 tablet by mouth every twenty-four hours as needed sodium chloride 1 g tablet Take 1 g by mouth Daily as needed. 0 Active Spectravite - (1 source) Spectravite - as directed Orally Active thioctic acid 200 mg oral capsule (7 sources) take 1 tablet by mouth once daily Alpha Lipoic Acid 200 MG capsule Take 1 tablet by mouth 1 (one) time each day. 0 Active torsemide 10 mg oral tablet (13 sources) Loop Diuretic Start: 12-14-19 20 take 1 tablet by mouth in the morning torsemide (Demadex) 10 MG tablet Indications: Lymphedema Take 1 tablet (10 mg) by mouth in the morning. 100 tablet 3 10/15/2022 Active traMADol hydrochloride 50 mg oral tablet (10 sources) Opioid Agonist Start: 06-16-19 End: 07-02-19 24 take 1 tablet by mouth every six hours for pain traMADol (Ultram) 50 MG tablet Indications: Acute bilateral low back pain with bilateral sciatica Take 1 tablet (50 mg) by mouth every 6 (six) hours if needed for severe pain for up to 10 days 40 tablet 0 06/22/2023 07/02/2023 Active Start: 02-22-2022 take 50 mg by mouth twice padmini y Tramadol Active 50 MG PO Twice daily February 22, 2022 12:00am ubidecarenone 30 mg oral capsule (7 sources) take 1 capsule by mouth in the morning co-enzyme Q-10 30 MG capsule Take 30 mg by mouth in the morning. 0 Active Vitamin B Complex (B-Complex) Tablet (7 sources) Start: 12-17-2019 take 1 tablet by mouth once daily Vitamin B Complex (B-Complex) Tablet Active 1 TAB PO every day at noon December 16, 2019 11:00pm Start: 12-17-2019 take 1 tablet by [facility] once daily Vitamin B Complex (B-Complex) Tablet Active 1 TAB PO every day at noDecember 17, 2019 12:00am vitamin e 180 mg oral capsule (14 sources) Start: 12-17-2019 take 800 [IU] by mouth once daily in the morning Vitamin E Active 800 UNIT PO Every morning December 17, 2019 12:00am take 2 capsules by mouth once da feliberto alpha tocopherol (Vitamin E) 400 units capsule Take 2 capsules by mouth 1 (one) time each day at the same time. 0 Active Vitamin E 400 UNIT (1 source) take 1 capsule by mo [facility] once daily Vitamin E 400 UNIT 1 capsule Orally Once a day Active Zinc (8 sources) Start: 12-17-2019 take 50 mg by mouth once daily Zinc Active 50 MG PO every day at noDecember 16, 2019 11:00pm Start: 12-17-2019 take 50 mg by mouth once daily Zinc Active 50 MG PO every day at noDecember 17, 2019 12:00am take 1 tablet by mouth once padmini y Zinc 50 MG 1 tablet Orally Once a day Active zinc gluconate 50 mg oral tablet (7 sources) take 1 tablet by yana th once daily zinc gluconate 50 MG tablet Take 1 tablet by mouth 1 (one) time each day at the same time. 0 Active Completed/Discontinued Medications Medication Drug Class(es) Dates Sig (Normalized) Sig (Original) Glucos Sul [id number]-Wssvt-C-M n (Glucosamine Chondroitin) 550-30-1 mg Capsule (7 sources) Start: 12-17-2019 End: 01-12-2022 take 1 capsule by mouth twice daily Glucos Sul 9cjo-Edl-Lvjko-C-Mn (Glucosamine Chondroitin) 550-30-1 mg Capsule Discontinued 1 CAP PO Twice daily December 16, 2019 11:00pm January 12, 2022 10:09am Start: 12-17-2019 End: 01-12-2022 take 1 capsule by mouth twice daily Glucos Sul 4mkt-Qqe-Vhxuk-C-Mn (Glucosamine Chondroitin) 550-30-1 mg Capsule Discontinued 1 CAP PO Twice daily December 17, 2019 12:00am January 12, 2022 11:09am 12 hr guaiFENesin 600 mg extended release oral tablet (7 sources) Start: 12-17-2019 End: 12-31-2021 take 2 tablets by mouth twice daily, then take 1 tablet by mouth every twelve hours Guaifenesin (Mucinex) 600 mg Tablet Extended Release 12hr Discontinued 1200 MG PO Twice daily December 17, 2019 12:00am December 31, 2021 3:19pm hydroCHLOROthiazide 12.5 mg / lisinopril 20 mg oral tablet (7 sources) Thiazide Diuretic, Angiotensin Converting Enzyme Inhibitor Start: 12-14-2019 End: 10-06-2020 take 1 tablet by mouth once daily Lisinopril-Hydroc hlorothiazide Discontinued 1 TAB PO every day at noon December 14, 2019 12:00am October 06, 2020 2:11pm melatonin 10 mg oral tablet (15 sources) Start: 12-17-2019 End: 07-30-2022 take 5 mg by mouth at bedtime Melatonin Discontinued 5 MG PO Bedtime December 17, 2019 12:00am July 30, 2022 10:47am melatonin 5 MG t ablet Take 1 tablet by mouth if needed 0 Active Melatonin 10 MG as directed Orally Active 7 actuat umeclidinium 0.0625 mg/actuat / vilanterol 0.025 mg/actuat dry powder inhaler (7 sources) Anticholinergic, beta2-Adrenergic Agonist Start: 12-17-2019 End: 09-18-2020 Umeclidinium-Vilanterol (Anoro Ellipta) 62.5-25 mcg/actuation Blister With Device Discontinued 1 INH INHALATION Daily December 17, 2019 12:00am September 18, 2020 3:52pm Problems Active Problems Problem Classification Problem Date Documented Date Episodic/Chronic Anxiety disorders (7 sources) Feeling agitated; Translations: [Acute stress reaction] 01-12-2022 Chronic Cancer of cervix (1 source) Personal history of malignant neoplasm of cervix uteri; Translations: [PERS HX MALIG NEOPLASM CERV UTERI] Onset: 01-25-2022 Episodic Chronic obstructive pulmonary disease and bronchiectasis (17 sources) Chronic obstructive pulmonary disease with (acute) exacerbation; Translations: [Chronic obstructive pulmonary disease with (acute) lower respiratory infection] Onset: 11-13-2021 Resolved: 12-27-2022 10-31-2022 Chronic Congestive heart failure; nonhypertensive (1 source) Heart failure, unspecified; Translations: [HEART FAILURE UNSPECIFIED] Onset: 11-25-2021 Chronic Coronary atherosclerosis and other heart disease (1 source) Atherosclerotic heart disease of [place] coronary artery without angina pectoris; Translations: [ASHD 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] Onset: 11-25-2021 Chronic Deficiency and other anemia (1 source) Anemia, unspecified; Translations: [ANEMIA UNSPECIFIED] Onset: 01-25-2022 Episodic Diabetes mellitus without complication (8 sources) Type 2 diabetes mellitus without complications; Translations: [Diabetes mellitus] Onset: 01-25-2022 10-31-2022 Chronic Digestive congenital anomalies (7 sources) Enlargement of tongue; Translations: [Macroglossia] Onset: 10-31-2022 10-31-2022 Chronic Disorders of lipid metabolism (9 sources) Pure hypercholesterolemia, unspecified; Translations: [Hyperlipidemia, unspecified] Onset: 08-17-2021 10-31-2022 Chronic E Codes: Fall (2 sources) Unspecified fall, initial encounter; Translations: [Fall] Onset: 01-18-2022 Episodic Epilepsy; convulsions (1 source) Epilepsy, unspecified, not intractable, without status epilepticus; Translations: [EPILEPSY UNS NOT INTRACT W/O SE] Onset: 08-17-2021 Chronic Esophageal disorders (8 sources) Gastro-esophageal reflux disease without esophagitis; Translations: [Gastroesophageal reflux disease] Onset: 01-25-2022 10-31-2022 Chronic Essential hypertension (9 sources) Hypertensive disorder; Translations: [Essential (primary) hypertension] Onset: 01-25-2022 10-31-2022 Chronic Headache; including migraine (14 sources) Complicated migraine; Translations: [Migraine with aura, not intractable, without status migrainosus] Onset: 10-31-2022 10-31-2022 Chronic Hypertension with complications and secondary hypertension (8 sources) Hypertensive emergency; Translations: [Hypertensive emergency] Onset: 11-25-2021 01-12-2022 Chronic Menopausal disorders (8 sources) Other primary ovarian failure; Translations: [Primary ovarian failure] Onset: 11-13-2021 10-31-2022 Chronic Nausea and vomiting (4 sources) Nausea; Translations: [NAUSEA] Onset: 01-20-2022 Episodic Occlusion or stenosis of precerebral arteries (19 sources) Right carotid artery stenosis; Translations: [Occlusion and stenosis of right carotid artery] Onset: 02-24-2021 Resolved: 02-24-2021 Chronic Open wounds of extremities (4 sources) Unspecified open wound of left great toe without damage to nail, initial encounter; Translations: [UNS OP WND LT GRT TOE NO DMG NL INT] Onset: 12-24-2021 Episodic Osteoarthritis (7 sources) Osteoarthritis; Translations: [Unspecified osteoarthritis, unspecified site] Onset: 10-31-2022 10-31-2022 Chronic Other aftercare (1 source) salvage determiner (current) use of aspirin; Translations: [SKILLED NURSING CURRENT USE OF ASPIRIN] Onset: 01-25-2022 Episodic Other aftercare (1 source) residential (current) use of insulin; Translations: [SKILLED NURSING CURRENT USE OF INSULIN] Onset: 01-25-2022 Episodic Other aftercare (1 source) Other senior care (current) drug therapy; Translations: [OTH RN ONCOLOGY RESEARCH CURRENT DRUG THERAPY] Onset: 01-25-2022 Episodic Other and ill-defined heart disease (7 sources) Diastolic dysfunction; Translations: [Other ill-defined heart diseases] Onset: 10-31-2022 10-31-2022 Chronic Other bone disease and musculoskeletal deformities (1 source) Other specified disorders of bone density and structure, left thigh; Translations: [[facility] D/O BONE DEN STRUCT LT THIGH] Onset: 11-13-2021 Episodic Other circulatory disease (1 source) Disorder of carotid artery; Translations: [Disorder of arteries and arterioles, unspecified] Chronic Other diseases of veins and lymphatics (7 sources) Lymphedema; Translations: [Lymphedema, not elsewhere classified] Onset: 10-31-2022 10-31-2022 Chronic Other injuries and conditions due to external causes (1 source) History of falling; Translations: [HISTORY OF FALLING] Onset: 01-25-2022 Episodic Other lower respiratory disease (7 sources) Abnormal breathing; Translations: [Unspecified abnormalities of breathing] 01-12-2022 Episodic Other lower respiratory disease (3 sources) Shortness of breath; Translations: [SHORTNESS OF BREATH] Onset: 11-24-2021 Episodic Other lower respiratory disease (1 source) Other nonspecific abnormal finding of lung field; Translations: [[facility] NONSPECIFIC ABN FIND LNG FIELD] Onset: 11-13-2021 Episodic Other nervous system disorders (4 sources) Polyneuropathy, unspecified; Translations: [POLYNEUROPATHY UNSPECIFIED] Onset: 08-12-2021 Chronic Other nervous system disorders (1 source) Hereditary and idiopathic neuropathy, unspecified; Translations: [HEREDITARY IDIOPATH NEUROPATHY UNS] Onset: 08-17-2021 Chronic Other nervous system disorders (7 sources) Carpal tunnel syndrome; Translations: [Carpal tunnel syndrome, unspecified upper limb] Onset: 10-31-2022 10-31-2022 Chronic Other nervous system disorders (7 sources) Polyneuropathy; Translations: [Polyneuropathy, unspecified] Onset: 10-31-2022 10-31-2022 Chronic Other non-traumatic joint disorders (4 sources) Pain in right hip; Translations: [PAIN IN RIGHT HIP] Onset: 01-06-2022 Episodic Other non-traumatic joint disorders (4 sources) Pain in right elbow; Translations: [PAIN IN RIGHT ELBOW] Onset: 01-04-2022 Episodic Other non-traumatic joint disorders (1 source) Pain in right knee; Translations: [PAIN IN RIGHT KNEE] Onset: 01-06-2022 Episodic Other non-traumatic joint disorders (3 sources) Hip pain; Translations: [Pain in right hip] 06-20-2023 Episodic Other nutritional; endocrine; and metabolic disorders (7 sources) Body mass index 30+ - obesity; Translations: [Obesity, unspecified] Onset: 10-31-2022 10-31-2022 Chronic Other screening for suspected conditions (not mental disorders or infectious disease) (1 source) Encounter for screening mammogram for malignant neoplasm of breast; Translations: [ENC SCR MAMMO MALIG NEOPLASM BREAST] Onset: 11-13-2021 Episodic Other upper respiratory disease (3 sources) Other specified disorders of nose and nasal sinuses; Translations: [OTH SPEC D/O NOSE NASAL SINUSES] Onset: 01-14-2022 Episodic Peripheral and visceral atherosclerosis (2 sources) Peripheral vascular disease, unspecified; Translations: [Generalized atherosclerosis] Onset: 08-17-2021 Chronic Pneumonia (except that caused by tuberculosis or sexually transmitted disease) (1 source) Pneumonia, unspecified organism; Translations: [PNEUMONIA UNSPECIFIED ORGANISM] Onset: 11-25-2021 Episodic Residual codes; unclassified (7 sources) Noncompliance with treatment; Translations: [Patient's noncompliance with other medical treatment and regimen] 01-12-2022 Episodic Residual codes; unclassified (7 sources) Delirium; Translations: [Disorientation, unspecified] 01-12-2022 Episodic Residual codes; unclassified (1 source) Other specified postprocedural states; Translations: [OTH SPECIFIED POSTPROCEDURAL STATES] Onset: 01-25-2022 Episodic Residual codes; unclassified (1 source) Acquired absence of other specified parts of digestive tract; Translations: [ACQ ABSENCE OTH PART DIGESTV TRACT] Onset: 01-18-2022 Episodic Residual codes; unclassified (1 source) Acquired absence of both cervix and uterus; Translations: [ACQUIRED ABSENCE BOTH CERVIX AND UTERUS] Onset: 01-18-2022 Episodic Residual codes; unclassified (1 source) Family history of malignant neoplasm of breast; Translations: [FAMILY HX MALIG NEOPLASM OF BREAST] Onset: 11-13-2021 Episodic Spondylosis; intervertebral disc disorders; other back problems (10 sources) Lumbar spondylosis; Translations: [Spondylosis without myelopathy or radiculopathy, lumbar region] Onset: 12-27-2022 12-27-2022 Chronic Spondylosis; intervertebral disc disorders; other back problems (12 sources) Lumbago with sciatica, right side; Translations: [Acute back pain with sciatica] Onset: 01-25-2022 05-10-2023 Episodic Substance-related disorders (10 sources) Smoker; Translations: [Nicotine dependence, unspecified, uncomplicated] Onset: 02-24-2021 Resolved: 02-24-2021 Chronic Superficial injury; contusion (2 sources) Contusion of other part of head, initial encounter; Translations: [Contusion of right elbow, initial encounter] Onset: 01-06-2022 Episodic Thyroid disorders (8 sources) Hypothyroidism, unspecified; Translations: [Hypothyroidism] Onset: 01-25-2022 10-31-2022 Chronic Transient cerebral ischemia (8 sources) Transient cerebral ischemic attack, unspecified; Translations: [Transient cerebral ischemia] Onset: 06-10-2021 10-31-2022 Chronic Unclassified (1 source) CONTACT W/AND (SUSP) EXPOS COVID-19; Translations: [CONTACT W/AND (SUSP) EXPOS COVID-19] Onset: 11-25-2021 Past or Other Problems Problem Classification Problem Date Documented Date Episodic/Chronic Calculus of urinary tract (8 sources) Personal history of urinary calculi; Translations: [Kidney stone] Onset: 01-25-2022 10-31-2022 Episodic Conditions associated with dizziness or vertigo (4 sources) Dizziness and giddiness; Translations: [DIZZINESS AND GIDDINESS] Onset: 05-27-2021 Episodic Deficiency and other anemia (14 sources) Iron deficiency anemia; Translations: [Iron deficiency anemia, unspecified] Onset: 10-31-2022 01-12-2022 Episodic Deficiency and other anemia (8 sources) Iron deficiency anemia, unspecified; Translations: [Iron deficiency anemia, unspecified] Onset: 02-01-2023 01-12-2022 Episodic Deficiency and other anemia (1 source) Other dietary vitamin B12 deficiency anemia; Translations: [OTH DIETARY VITAMIN B12 DEF ANEMIA] Onset: 08-17-2021 Episodic Diabetes mellitus with complications (7 sources) Neuropathy due to diabetes mellitus; Translations: [Type 2 diabetes mellitus with diabetic neuropathy, unspecified] Onset: 10-31-2022 Resolved: 12-27-2022 12-27-2022 Chronic Fluid and electrolyte disorders (8 sources) Hypo-osmolality and hyponatremia; Translations: [Hyponatremia] Onset: 01-25-2022 10-31-2022 Episodic Immunizations and screening for infectious disease (1 source) Encounter for screening for infections with a predominantly sexual mode of transmission; Translations: [ENC SCREEN INFECTIONS SEXL TRANSMS] Onset: 08-17-2021 Episodic Mood disorders (7 sources) Mood disorders Onset: 12-27-2022 12-27-2022 Nutritional deficiencies (1 source) Pyridoxine deficiency; 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] Onset: 08-17-2021 Episodic Other aftercare (1 source) residential (current) use of oral hypoglycemic drugs; Translations: [RN ONCOLOGY RESEARCH USE ORAL HYPOGLYCEMIC DX] Onset: 05-28-2021 Episodic Other bone disease and musculoskeletal deformities (7 sources) Osteopenia; Translations: [Other specified disorders of bone density and structure, left thigh] Onset: 10-31-2022 10-31-2022 Episodic Other connective tissue disease (1 source) Myalgia, unspecified site; Translations: [MYALGIA UNSPECIFIED SITE] Onset: 08-17-2021 Episodic Other connective tissue disease (7 sources) Weakness of hand; Translations: [Other symptoms and signs involving the musculoskeletal system] Onset: 10-31-2022 10-31-2022 Episodic Other diseases of kidney and ureters (7 sources) Acquired renal cystic disease; Translations: [Cyst of kidney, acquired] Onset: 10-31-2022 10-31-2022 Episodic Other nervous system disorders (4 sources) Paresthesia of skin; Translations: [PARESTHESIA OF SKIN] Onset: 06-10-2021 Episodic Other nervous system disorders (4 sources) Anesthesia of skin; Translations: [ANESTHESIA OF SKIN] Onset: 05-28-2021 Episodic Other nervous system disorders (7 sources) White matter disease; Translations: [White matter disease, unspecified] Onset: 10-31-2022 10-31-2022 Episodic Residual codes; unclassified (1 source) Insomnia; Translations: [Insomnia, unspecified] Episodic Results Test Name Value Interpretation Reference Range Facility Alanine aminotransferase [En zymatic activity/volume] in Serum or PlasmaOrdered By: Taylor Tijerina on 01-31-2023 ALT [Catalytic activity/Vol] 16 U/L 7-52 [facility] Albumin [Mass/volume] in Ser um or Plasma by Bromocresol green (BCG) dye binding methoOrdered By: Taylor Tijerina on 01-31-2023 Albumin BCG dye [Mass/Vol] 3.7 g/dL 3.5-5.7 [facility] Alkaline phosphatase [Enzyma tic activity/volume] in Serum or PlasmaOrdered By: Taylor Tijerina on 01-31-2023 ALP [Catalytic activity/Vol] 72 U/L 34-104 [facility] Aspartate aminotransferase [ Enzymatic activity/volume] in Serum or PlasmaOrdered By: Taylor Tijerina on 01-31-2023 AST [Catalytic activity/Vol] 24 U/L 13-39 [facility] Basophils Auto (Bld) [#/Vol] Ordered By: Taylor Tijerina on 01-31-2023 Basophils (Bld) [#/Vol] 0.1 10*3/uL 0.0-0.2 [facility] Basophils/100 WBC Auto (Bld) Ordered By: Taylor Tijerina on 01-31-2023 Basophils/100 WBC (Bld) 0.9 % . [facility] Bilirubin.total [Mass/volume ] in Serum or PlasmaOrdered By: Taylor Tijerina on 01-31-2023 Bilirubin [Mass/Vol] 0.4 mg/dL 0.3-1.0 [facility] Calcium [Mass/volume] in Ser um or PlasmaOrdered By: Taylor Tijerina on 01-31-2023 Calcium [Mass/Vol] 9.1 mg/dL 8.6-10.3 [facility] Carbon dioxide, total [Moles /volume] in Serum or PlasmaOrdered By: Taylor Tijerina on 01-31-2023 CO2 [Moles/Vol] 30.6 mmol/L 21.0-31.0 [facility] Chloride [Moles/volume] in S ramiro or PlasmaOrdered By: Taylor Tijerina on 01-31-2023 Chloride [Moles/Vol] 102 mmol/L 98-107 [facility] Complete Blood Count Auto Di ffon 01-31-2023 Basophils (Bld) [#/Vol] 0.1 10*3/uL Normal 0.0-0.2 [facility] Comment on above: Result Comment: PERF ORMED BY: [place] [address] PATHOLOGIST DIRECTOR OF ENTERTAINMENT JOSE QUIROZ M.D. Performed By: #### F E and TIBC, CMP, CHEL, CBC #### [address] Basophils/100 WBC (Bld) 0.9 % Normal . F [facility] [place] Comment on above: Performed By: #### F E and TIBC, CMP, CHEL, CBC #### [address] Eosinophils (Bld) [#/Vol] 0.1 10*3/uL Normal 0.0-0.45 [facility] Comment on above: Performed By: #### F E and TIBC, CMP, CHEL, CBC #### [address] Eosinophils/100 WBC (Bld) 2.0 % Normal . [facility] Comment on above: Performed By: #### F E and TIBC, CMP, CHEL, CBC #### [address] Erythrocyte distribution width (RBC) [Ratio] 13.8 % Normal 11.9-15.3 [facility] Comment on above: Performed By: #### F E and TIBC, CMP, CHEL, CBC #### [address] Hematocrit (Bld) [Volume fraction] 40.4 % Normal 34.0-46.4 [facility] Comment on above: Performed By: #### F E and TIBC, CMP, CHEL, CBC #### [address] Hemoglobin (Bld) [Mass/Vol] 13.9 g/dL Normal 11.8-15.4 [facility] Comment on above: Performed By: #### F E and TIBC, CMP, CHEL, CBC #### [address] Lymphocytes (Bld) [#/Vol] 1.8 10*3/uL Normal 1.00-4.8 [facility] Comment on above: Performed By: #### F E and TIBC, CMP, CHEL, CBC #### [address] Lymphocytes/100 WBC (Bld) 26.2 % Normal . [facility] Comment on above: Performed By: #### F E and TIBC, CMP, CHEL, CBC #### [address] MCH (RBC) [Entitic mass] 32.5 pg Normal 24.7-34.3 [facility] Comment on above: Performed By: #### F E and TIBC, CMP, CHEL, CBC #### [address] MCV (RBC) [Entitic vol] 94.5 fL Normal 80-100 [facility] Comment on above: Performed By: #### F E and TIBC, CMP, CHEL, CBC #### [address] Mean Corpuscular HGB Conc 34.4 g/dL Normal 32.0-35.0 [facility] Comment on above: Performed By: #### F E and TIBC, CMP, CHEL, CBC #### [address] Monocytes (Bld) [#/Vol] 0.6 10*3/uL Normal 0.0-0.8 [facility] Comment on above: Performed By: #### F E and TIBC, CMP, CHEL, CBC #### [address] Monocytes/100 WBC (Bld) 9.2 % Normal . F [facility] [place] Comment on above: Performed By: #### F E and TIBC, CMP, CHEL, CBC #### [address] Neutrophils (Bld) [#/Vol] 4.2 10*3/uL Normal 1.8-7.7 [facility] Comment on above: Performed By: #### F E and TIBC, CMP, CHEL, CBC #### [facility] [address] Neutrophils/100 WBC (Bld) 61.7 % Normal . [facility] Comment on above: Performed By: #### F E and TIBC, CMP, CHEL, CBC #### [facility] [address] NRBC% 0.1 /100{WBC} Normal 0-0.5 [facility] Comment on above: Performed By: #### F E and TIBC, CMP, CHEL, CBC #### [address] Platelet mean volume (Bld) [Entitic vol] 7.4 fL Normal 6.3-10.7 [facility] Comment on above: Performed By: #### F E and TIBC, CMP, CHEL, CBC #### [address] Platelets (Bld) [#/Vol] 349 10*3/uL Normal 150-450 [facility] Comment on above: Performed By: #### F E and TIBC, CMP, CHEL, CBC #### [address] RBC (Bld) [#/Vol] 4.27 10*6/uL Normal 3.60-5.00 [facility] Comment on above: Performed By: #### F E and TIBC, CMP, CHEL, CBC #### [address] WBC (Bld) [#/Vol] 6.9 10*3/uL Normal 3.8-11.6 [facility] Comment on above: Performed By: #### F E and TIBC, CMP, CHEL, CBC #### [address] Comprehensive Metabolic Pane bing 01-31-2023 Albumin [Mass/Vol] 3.7 g/dL Normal 3.5-5.7 [facility] Comment on above: Performed By: #### F E and TIBC, CMP, CHEL, CBC #### [facility] [address] Albumin/Globulin [Mass ratio] 1.4 {ratio} Normal [facility] Comment on above: Performed By: #### F E and TIBC, CMP, CHEL, CBC #### [facility] [address] ALP [Catalytic activity/Vol] 72 U/L Normal 34-104 [facility] Comment on above: Performed By: #### F E and TIBC, CMP, CHEL, CBC #### [facility] [address] ALT [Catalytic activity/Vol] 16 U/L Normal 7-52 [facility] Comment on above: Performed By: #### F E and TIBC, CMP, CHEL, CBC #### [facility] [address] Anion gap [Moles/Vol] 7.6 mmol/L Normal 6.0-15.0 [facility] Comment on above: Performed By: #### F E and TIBC, CMP, CHEL, CBC #### [facility] [address] [place] [address] [place] AST [Catalytic activity/Vol] 24 U/L Normal 13-39 [facility] Comment on above: Performed By: #### F E and TIBC, CMP, CHEL, CBC #### [facility] [address] [place] [address] [place] Bilirubin [Mass/Vol] 0.4 mg/dL Normal 0.3-1.0 [facility] Comment on above: Performed By: #### F E and TIBC, CMP, CHEL, CBC #### [facility] [address] [place] [address] [place] Calcium [Mass/Vol] 9.1 mg/dL Normal 8.6-10.3 [facility] Comment on above: Performed By: #### F E and TIBC, CMP, CHEL, CBC #### [facility] [address] Chloride [Moles/Vol] 102 mmol/L Normal 98-107 [facility] Comment on above: Performed By: #### F E and TIBC, CMP, CHEL, CBC #### [facility] [address] CO2 [Moles/Vol] 30.6 mmol/L Normal 21.0-31.0 [facility] Comment on above: Performed By: #### F E and TIBC, CMP, CHEL, CBC #### [address] Creatinine [Mass/Vol] 0.90 mg/dL Normal 0.60-1.20 [facility] Comment on above: Performed By: #### F E and TIBC, CMP, CHEL, CBC #### [address] Creatinine Clr Calc Pharmacy 49.88 [facility] Comment on above: Performed By: #### F E and TIBC, CMP, CHEL, CBC #### [address] GFR/1.73 sq M.predicted MDRD (S/P/Bld) [Vol rate/Area] mL/min/{1.73_m2} [facility] Comment on above: Performed By: #### F E and TIBC, CMP, CHEL, CBC #### [address] Globulin (S) [Mass/Vol] 2.6 g/dL Normal [facility] Comment on above: Performed By: #### F E and TIBC, CMP, CHEL, CBC #### [address] Glucose [Mass/Vol] 118 mg/dL High 70-100 [facility] Comment on above: Result Comment: [facility] Glucose Reference Range is dependent on time and content of last meal. Glucose of more than 200 mg/dL in a nonstressed, ambulatory subject supports the diagnosis of Diabetes Mellitus. ADA recommended reference range Performed By: #### F E and TIBC, CMP, CHEL, CBC #### [address] Potassium [Moles/Vol] 4.2 mmol/L Normal 3.5-5.1 [facility] Comment on above: Result Comment: Hemo lysis is present at a level that could interfere with the result. Performed By: #### F E and TIBC, CMP, CHEL, CBC #### [address] Protein [Mass/Vol] 6.3 g/dL Low 6.4-8.9 [facility] Comment on above: Performed By: #### F E and TIBC, CMP, CHEL, CBC #### [address] Sodium [Moles/Vol] 136 mmol/L Normal 136-145 [facility] Comment on above: Performed By: #### F E and TIBC, CMP, CHEL, CBC #### [place] [address] [place] Urea nitrogen [Mass/Vol] 24 mg/dL Normal 7-25 [facility] Comment on above: Performed By: #### F E and TIBC, CMP, CHEL, CBC #### [address] Creatinine [Mass/volume] in Serum or PlasmaOrdered By: Taylor Tijerina on 01-31-2023 Creatinine [Mass/Vol] 0.90 mg/dL 0.60-1.20 [facility] Eosinophils Auto (Bld) [#/Vo l]Ordered By: Taylor Tijerina on 01-31-2023 Eosinophils (Bld) [#/Vol] 0.1 10*3/uL 0.0-0.45 [facility] Eosinophils/100 WBC Auto (Bl d)Ordered By: Taylor Tijerina on 01-31-2023 Eosinophils/100 WBC (Bld) 2.0 % . [facility] Erythrocyte distribution wid th Auto (RBC) [Ratio]Ordered By: Taylor Tijerina on 01-31-2023 Erythrocyte distribution width (RBC) [Ratio] 13.8 % 11.9-15.3 [facility] Ferritinon 01-31-2023 Ferritin [Mass/Vol] 58.3 ng/mL Normal 11.0-306.8 [facility] Comment on above: Result Comment: PERF ORMED BY: [facility] [address] [place] [address] PATHOLOGIST DIRECTOR OF ENTERTAINMENT JOSE QUIROZ M.D. Performed By: #### F E and TIBC, CMP, CHEL, CBC #### [facility] [address] Ferritin [Mass/volume] in Se rum or PlasmaOrdered By: Taylor Tijerina on 01-31-2023 Ferritin [Mass/Vol] 58.3 ng/mL 11.0-306.8 [facility] Globulin Calc (S) [Mass/Vol] Ordered By: Taylor Tijerina on 01-31-2023 Globulin (S) [Mass/Vol] 2.6 g/dL F [facility] Glucose [Mass/volume] in Ser um or PlasmaOrdered By: Taylor Tijerina on 01-31-2023 Glucose [Mass/Vol] 118 mg/dL 70-100 [facility] Comment on above: ADA recommended refe rence rangeRandom Glucose Reference Range is dependent on time and content of last meal. Glucose of more than 200 mg/dL in a nonstressed, ambulatory subject supports the diagnosis of Diabetes Mellitus. Hematocrit Auto (Bld) [Volum e fraction]Ordered By: Taylor Tijerina on 01-31-2023 Hematocrit (Bld) [Volume fraction] 40.4 % 34.0-46.4 [facility] Hemoglobin [Mass/volume] in BloodOrdered By: Taylor Tijerina on 01-31-2023 Hemoglobin (Bld) [Mass/Vol] 13.9 g/dL 11.8-15.4 [facility] Iron [Mass/volume] in Serum or PlasmaOrdered By: Taylor Tijerina on 01-31-2023 Iron [Mass/Vol] 91 ug/dL 50-212 [facility] Iron and TIBC Profileon 01-14 % Iron Saturation 23.6 % Normal 20-50 [facility] Comment on above: Performed By: #### F E and TIBC, CMP, CHEL, CBC #### [facility] [address] [place] [id number] [place] Iron [Mass/Vol] 91 ug/dL Normal 50-212 [facility] Comment on above: Performed By: #### F E and TIBC, CMP, CHEL, CBC #### [facility] [address] [place] [address] [place] Total Iron Binding Capacity 385 ug/dL Normal 255-450 [facility] Comment on above: Performed By: #### F E and TIBC, CMP, CHEL, CBC #### [facility] [address] [place] [id number] [place] Transferrin [Mass/Vol] 275 mg/dL Normal 203-362 [facility] Comment on above: Performed By: #### F E and TIBC, CMP, CHEL, CBC #### [facility] [address] [place] [address] [place] Iron binding capacity [Mass/ volume] in Serum or PlasmaOrdered By: Taylor Tijerina on 01-31-2023 Iron binding capacity [Mass/Vol] 385 ug/dL 255-450 [facility] Iron saturation [Mass Fracti on] in Serum or PlasmaOrdered By: Taylor Tijerina on 01-31-2023 Iron saturation [Mass fraction] 23.6 % 20-50 [facility] Leukocytes [#/volume] correc shara for nucleated erythrocytes in Blood by Automated counOrdered By: Talyor Tijerina on 01-31-2023 WBC corrected for nucl RBC Auto (Bld) [#/Vol] 6.9 10*3/uL 3.8-11.6 [facility] Lymphocytes Auto (Bld) [#/Vo l]Ordered By: Taylor Tijerina on 01-31-2023 Lymphocytes (Bld) [#/Vol] 1.8 10*3/uL 1.00-4.8 [facility] Lymphocytes/100 WBC Auto (Bl d)Ordered By: Taylor Tijerina on 01-31-2023 Lymphocytes/100 WBC (Bld) 26.2 % . [facility] MCH Auto (RBC) [Entitic mass ]Ordered By: Taylor Tijerina on 01-31-2023 MCH (RBC) [Entitic mass] 32.5 pg 24.7-34.3 [facility] MCHC Auto (RBC) [Mass/Vol]Or dered By: Taylor Tijerina on 01-31-2023 MCHC (RBC) [Mass/Vol] 34.4 g/dL 32.0-35.0 [facility] MCV Auto (RBC) [Entitic vol] Ordered By: Taylor Tijerina on 01-31-2023 MCV (RBC) [Entitic vol] 94.5 fL 80-100 [facility] Monocytes Auto (Bld) [#/Vol] Ordered By: Taylor Tijerina on 01-31-2023 Monocytes (Bld) [#/Vol] 0.6 10*3/uL 0.0-0.8 [facility] Monocytes/100 WBC Auto (Bld) Ordered By: Taylor Tijerina on 01-31-2023 Monocytes/100 WBC (Bld) 9.2 % . [facility] Neutrophils Auto (Bld) [#/Vo l]Ordered By: Taylor Tijerina on 01-31-2023 Neutrophils (Bld) [#/Vol] 4.2 10*3/uL 1.8-7.7 [facility] Neutrophils/100 WBC Auto (Bl d)Ordered By: Taylor Tijerina on 01-31-2023 Neutrophils/100 WBC (Bld) 61.7 % . [facility] No Panel InformationOrdered By: Taylor Tijerina on 01-31-2023 Estimated GFR (CKD-EPI) > 60.0 mL/Min [facility] Creatinine Clearance (Chem 49.88 [facility] Nucleated erythrocytes [Pres ence] in Blood by Automated countOrdered By: Taylor Tijerina on 01-31-2023 Nucleated RBC Auto Ql (Bld) 0.1 /100{WBC} 0-0.5 [facility] Platelet mean volume Auto (B ld) [Entitic vol]Ordered By: Taylor Tijerina on 01-31-2023 Platelet mean volume (Bld) [Entitic vol] 7.4 fL 6.3-10.7 [facility] Platelets Auto (Bld) [#/Vol] Ordered By: Taylor Tijerina on 01-31-2023 Platelets (Bld) [#/Vol] 349 10*3/uL 150-450 [facility] Potassium [Moles/volume] in Serum or PlasmaOrdered By: Taylor Tijerina on 01-31-2023 Potassium [Moles/Vol] 4.2 mmol/L 3.5-5.1 [facility] Comment on above: Hemolysis is present at a level that could interfere with the result. Protein [Mass/volume] in Ser um or PlasmaOrdered By: Taylor Tijerina on 01-31-2023 Protein [Mass/Vol] 6.3 g/dL 6.4-8.9 [facility] RBC Auto (Bld) [#/Vol]Ordere d By: Taylor Tijerina on 01-31-2023 RBC (Bld) [#/Vol] 4.27 10*6/uL 3.60-5.00 [facility] Serum or plasma albumin/glob ulin mass ratioOrdered By: Taylor Tijerina on 01-31-2023 Albumin/Globulin [Mass ratio] 1.4 {ratio} [facility] Serum or plasma anion gap de terminationOrdered By: Taylor Tijerina on 01-31-2023 Anion gap [Moles/Vol] 7.6 mmol/L 6.0-15.0 [facility] Sodium [Moles/volume] in Ser um or PlasmaOrdered By: Taylor Tijerina on 01-31-2023 Sodium [Moles/Vol] 136 mmol/L 136-145 [facility] Transferrin [Mass/volume] in Serum or PlasmaOrdered By: Taylor Tijerina on 01-31-2023 Transferrin [Mass/Vol] 275 mg/dL 203-362 [facility] Urea nitrogen [Mass/volume] in Serum or PlasmaOrdered By: Taylor Tijerina on 01-31-2023 Urea nitrogen [Mass/Vol] 24 mg/dL 7-25 [facility] WBC Auto (Bld) [#/Vol]Ordere d By: Taylor Tijerina on 01-31-2023 WBC (Bld) [#/Vol] 6.9 10*3/uL 3.8-11.6 [facility] Alanine aminotransferase [En zymatic activity/volume] in Serum or PlasmaOrdered By: Taylor Tijerina on 11-01-2022 ALT [Catalytic activity/Vol] 18 U/L 7-52 [facility] Albumin [Mass/volume] in Ser um or Plasma by Bromocresol green (BCG) dye binding methoOrdered By: Taylor Tijerina on 11-01-2022 Albumin BCG dye [Mass/Vol] 3.8 g/dL 3.5-5.7 [facility] Alkaline phosphatase [Enzyma tic activity/volume] in Serum or PlasmaOrdered By: Taylor Tijerina on 11-01-2022 ALP [Catalytic activity/Vol] 38 U/L 34-104 [facility] Aspartate aminotransferase [ Enzymatic activity/volume] in Serum or PlasmaOrdered By: Taylor Tijerina on 11-01-2022 AST [Catalytic activity/Vol] 22 U/L 13-39 [facility] Basophils Auto (Bld) [#/Vol] Ordered By: Taylor Tijerina on 11-01-2022 Basophils (Bld) [#/Vol] 0.1 10*3/uL 0.0-0.2 [facility] Basophils/100 WBC Auto (Bld) Ordered By: Taylor Tijerina on 11-01-2022 Basophils/100 WBC (Bld) 1.3 % . [facility] [place] Bilirubin.total [Mass/volume ] in Serum or PlasmaOrdered By: Taylor Tijerina on 11-01-2022 Bilirubin [Mass/Vol] 0.4 mg/dL 0.3-1.0 [facility] Calcium [Mass/volume] in Ser um or PlasmaOrdered By: Taylor Tijerina on 11-01-2022 Calcium [Mass/Vol] 9.2 mg/dL 8.6-10.3 [facility] Carbon dioxide, total [Moles /volume] in Serum or PlasmaOrdered By: Taylor Tijerina on 11-01-2022 CO2 [Moles/Vol] 28.9 mmol/L 21.0-31.0 [facility] Chloride [Moles/volume] in S ramiro or PlasmaOrdered By: Taylor Lilliana on 11-01-2022 Chloride [Moles/Vol] 100 mmol/L 98-107 [facility] Complete Blood Count Auto Di ffon 11-01-2022 Basophils (Bld) [#/Vol] 0.1 10*3/uL Normal 0.0-0.2 [facility] Comment on above: Result Comment: PERF ORMED BY: [place] [address] PATHOLOGIST DIRECTOR OF ENTERTAINMENT JOSE QUIROZ M.D. Performed By: #### C BC, FE and TIBC, CMP, CHEL #### [address] Basophils/100 WBC (Bld) 1.3 % Normal . F [facility] Comment on above: Performed By: #### C BC, FE and TIBC, CMP, CHEL #### [address] Eosinophils (Bld) [#/Vol] 0.1 10*3/uL Normal 0.0-0.45 [facility] Comment on above: Performed By: #### C BC, FE and TIBC, CMP, CHEL #### [address] Eosinophils/100 WBC (Bld) 1.7 % Normal . [facility] Comment on above: Performed By: #### C BC, FE and TIBC, CMP, CHEL #### [address] Erythrocyte distribution width (RBC) [Ratio] 13.6 % Normal 11.9-15.3 [facility] Comment on above: Performed By: #### C BC, FE and TIBC, CMP, CHEL #### [address] Hematocrit (Bld) [Volume fraction] 37.4 % Normal 34.0-46.4 [facility] Comment on above: Performed By: #### C BC, FE and TIBC, CMP, CHEL #### [address] Hemoglobin (Bld) [Mass/Vol] 13.0 g/dL Normal 11.8-15.4 [facility] Comment on above: Performed By: #### C BC, FE and TIBC, CMP, CHEL #### [address] Lymphocytes (Bld) [#/Vol] 1.7 10*3/uL Normal 1.00-4.8 [facility] Comment on above: Performed By: #### C BC, FE and TIBC, CMP, CHEL #### [address] Lymphocytes/100 WBC (Bld) 26.9 % Normal . [facility] Comment on above: Performed By: #### C BC, FE and TIBC, CMP, CHEL #### [address] MCH (RBC) [Entitic mass] 33.1 pg Normal 24.7-34.3 [facility] Comment on above: Performed By: #### C BC, FE and TIBC, CMP, CHEL #### [address] MCV (RBC) [Entitic vol] 95.6 fL Normal 80-100 F [facility] Comment on above: Performed By: #### C BC, FE and TIBC, CMP, CHEL #### [address] Mean Corpuscular HGB Conc 34.7 g/dL Normal 32.0-35.0 [facility] Comment on above: Performed By: #### C BC, FE and TIBC, CMP, CHEL #### [address] Monocytes (Bld) [#/Vol] 0.6 10*3/uL Normal 0.0-0.8 [facility] Comment on above: Performed By: #### C BC, FE and TIBC, CMP, CHEL #### [place] [address] [place] Monocytes/100 WBC (Bld) 9.5 % Normal . F [facility] Comment on above: Performed By: #### C BC, FE and TIBC, CMP, CHEL #### [address] Neutrophils (Bld) [#/Vol] 3.8 10*3/uL Normal 1.8-7.7 [facility] Comment on above: Performed By: #### C BC, FE and TIBC, CMP, CHEL #### [address] Neutrophils/100 WBC (Bld) 60.6 % Normal . [facility] Comment on above: Performed By: #### C BC, FE and TIBC, CMP, CHEL #### [address] NRBC% 0.2 /100{WBC} Normal 0-0.5 [facility] Comment on above: Performed By: #### C BC, FE and TIBC, CMP, CHEL #### [address] Platelet mean volume (Bld) [Entitic vol] 7.1 fL Normal 6.3-10.7 [facility] Comment on above: Performed By: #### C BC, FE and TIBC, CMP, CHEL #### [place] [address] [place] Platelets (Bld) [#/Vol] 266 10*3/uL Normal 150-450 [facility] Comment on above: Performed By: #### C BC, FE and TIBC, CMP, CHEL #### [place] [address] [place] RBC (Bld) [#/Vol] 3.92 10*6/uL Normal 3.60-5.00 [facility] Comment on above: Performed By: #### C BC, FE and TIBC, CMP, CHEL #### [place] [address] [place] WBC (Bld) [#/Vol] 6.3 10*3/uL Normal 3.8-11.6 [facility] Comment on above: Performed By: #### C BC, FE and TIBC, CMP, CHEL #### [facility] [address] Comprehensive Metabolic Pane bing 11-01-2022 Albumin [Mass/Vol] 3.8 g/dL Normal 3.5-5.7 [facility] Comment on above: Performed By: #### C BC, FE and TIBC, CMP, CHEL #### [address] Albumin/Globulin [Mass ratio] 1.7 {ratio} Normal [facility] Comment on above: Performed By: #### C BC, FE and TIBC, CMP, CHEL #### [address] ALP [Catalytic activity/Vol] 38 U/L Normal 34-104 [facility] Comment on above: Performed By: #### C BC, FE and TIBC, CMP, CHEL #### [address] ALT [Catalytic activity/Vol] 18 U/L Normal 7-52 [facility] Comment on above: Performed By: #### C BC, FE and TIBC, CMP, CHEL #### [address] Anion gap [Moles/Vol] 11.4 mmol/L Normal 6.0-15.0 [facility] Comment on above: Performed By: #### C BC, FE and TIBC, CMP, CHEL #### [address] AST [Catalytic activity/Vol] 22 U/L Normal 13-39 [facility] Comment on above: Performed By: #### C BC, FE and TIBC, CMP, CHEL #### [address] Bilirubin [Mass/Vol] 0.4 mg/dL Normal 0.3-1.0 [facility] Comment on above: Performed By: #### C BC, FE and TIBC, CMP, CHEL #### [facility] [address] Calcium [Mass/Vol] 9.2 mg/dL Normal 8.6-10.3 [facility] Comment on above: Performed By: #### C BC, FE and TIBC, CMP, CHEL #### [facility] [address] Chloride [Moles/Vol] 100 mmol/L Normal 98-107 [facility] Comment on above: Performed By: #### C BC, FE and TIBC, CMP, CHEL #### [address] CO2 [Moles/Vol] 28.9 mmol/L Normal 21.0-31.0 [facility] Comment on above: Performed By: #### C BC, FE and TIBC, CMP, CHEL #### [address] Creatinine [Mass/Vol] 0.76 mg/dL Normal 0.60-1.20 [facility] Comment on above: Performed By: #### C BC, FE and TIBC, CMP, CHEL #### [address] Creatinine Clr Calc Pharmacy 57.26 [facility] Comment on above: Performed By: #### C BC, FE and TIBC, CMP, CHEL #### [address] GFR/1.73 sq M.predicted MDRD (S/P/Bld) [Vol rate/Area] mL/min/{1.73_m2} [facility] Comment on above: Performed By: #### C BC, FE and TIBC, CMP, CHEL #### [address] Globulin (S) [Mass/Vol] 2.2 g/dL Normal [facility] Comment on above: Performed By: #### C BC, FE and TIBC, CMP, CHEL #### [place] [address] [place] Glucose [Mass/Vol] 118 mg/dL High 70-100 [facility] Comment on above: Result Comment: [place] Glucose Reference Range is dependent on time and content of last meal. Glucose of more than 200 mg/dL in a nonstressed, ambulatory subject supports the diagnosis of Diabetes Mellitus. ADA recommended reference range Performed By: #### C BC, FE and TIBC, CMP, CHEL #### [facility] [address] Potassium [Moles/Vol] 4.3 mmol/L Normal 3.5-5.1 [facility] Comment on above: Performed By: #### C BC, FE and TIBC CMP, CHEL #### [facility] [address] Protein [Mass/Vol] 6.0 g/dL Low 6.4-8.9 [facility] Comment on above: Performed By: #### C BC, FE and TIBC, CMP, CHEL #### [facility] [address] Sodium [Moles/Vol] 136 mmol/L Normal 136-145 [facility] Comment on above: Performed By: #### C BC, FE and TIBC, CMP, CHEL #### [facility] [address] Urea nitrogen [Mass/Vol] 22 mg/dL Normal 7-25 [facility] Comment on above: Performed By: #### C BC, FE and TIBC, CMP, CHEL #### [facility] [address] Creatinine [Mass/volume] in Serum or PlasmaOrdered By: Taylor Tijerina on 11-01-2022 Creatinine [Mass/Vol] 0.76 mg/dL 0.60-1.20 [facility] Eosinophils Auto (Bld) [#/Vo l]Ordered By: Taylor Tijerina on 11-01-2022 Eosinophils (Bld) [#/Vol] 0.1 10*3/uL 0.0-0.45 [facility] Eosinophils/100 WBC Auto (Bl d)Ordered By: Taylor Tijerina on 11-01-2022 Eosinophils/100 WBC (Bld) 1.7 % . [facility] Erythrocyte distribution wid th Auto (RBC) [Ratio]Ordered By: Taylor Tijerina on 11-01-2022 Erythrocyte distribution width (RBC) [Ratio] 13.6 % 11.9-15.3 [facility] Ferritinon 11-01-2022 Ferritin [Mass/Vol] 90.9 ng/mL Normal 11.0-306.8 [facility] Comment on above: Result Comment: PERF ORMED BY: [facility] [address] [place] [address] PATHOLOGIST DIRECTOR OF ENTERTAINMENT JOSE QUIROZ M.D. Performed By: #### C BC, FE and TIBC, CMP, CHEL #### [facility] [address] Ferritin [Mass/volume] in Se rum or PlasmaOrdered By: Taylor Tijerina on 11-01-2022 Ferritin [Mass/Vol] 90.9 ng/mL 11.0-306.8 [facility] Globulin Calc (S) [Mass/Vol] Ordered By: Taylor Tijerina on 11-01-2022 Globulin (S) [Mass/Vol] 2.2 g/dL F [facility] Glucose [Mass/volume] in Ser um or PlasmaOrdered By: Taylor Tijerina on 11-01-2022 Glucose [Mass/Vol] 118 mg/dL 70-100 [facility] Comment on above: ADA recommended refe rence rangeRandom Glucose Reference Range is dependent on time and content of last meal. Glucose of more than 200 mg/dL in a nonstressed, ambulatory subject supports the diagnosis of Diabetes Mellitus. Hematocrit Auto (Bld) [Volum e fraction]Ordered By: Taylor Tijerina on 11-01-2022 Hematocrit (Bld) [Volume fraction] 37.4 % 34.0-46.4 [facility] Hemoglobin [Mass/volume] in BloodOrdered By: Taylor Tijerina on 11-01-2022 Hemoglobin (Bld) [Mass/Vol] 13.0 g/dL 11.8-15.4 [facility] Iron [Mass/volume] in Serum or PlasmaOrdered By: Taylor Tijerina on 11-01-2022 Iron [Mass/Vol] 94 ug/dL 50-212 [facility] Iron and TIBC Profileon 10-14 % Iron Saturation 25.3 % Normal 20-50 [facility] Comment on above: Performed By: #### C BC, FE and TIBC, CMP, CHEL #### [facility] [address] [place] [id number] [place] Iron [Mass/Vol] 94 ug/dL Normal 50-212 [facility] Comment on above: Performed By: #### C BC, FE and TIBC, CMP, CHEL #### [facility] [address] Total Iron Binding Capacity 372 ug/dL Normal 255-450 [facility] Comment on above: Performed By: #### C BC, FE and TIBC, CMP, CHEL #### [facility] [address] [place] [id number] [place] Transferrin [Mass/Vol] 266 mg/dL Normal 203-362 [facility] Comment on above: Performed By: #### C BC, FE and TIBC, CMP, CHEL #### [facility] [address] [place] [address] [place] Iron binding capacity [Mass/ volume] in Serum or PlasmaOrdered By: Taylor Tijerina on 11-01-2022 Iron binding capacity [Mass/Vol] 372 ug/dL 255-450 [facility] Iron saturation [Mass Fracti on] in Serum or PlasmaOrdered By: Taylor Tijerina on 11-01-2022 Iron saturation [Mass fraction] 25.3 % 20-50 [facility] Leukocytes [#/volume] correc shara for nucleated erythrocytes in Blood by Automated counOrdered By: Taylor Tijerina on 11-01-2022 WBC corrected for nucl RBC Auto (Bld) [#/Vol] 6.3 10*3/uL 3.8-11.6 [facility] Lymphocytes Auto (Bld) [#/Vo l]Ordered By: Taylor Tijerina on 11-01-2022 Lymphocytes (Bld) [#/Vol] 1.7 10*3/uL 1.00-4.8 [facility] Lymphocytes/100 WBC Auto (Bl d)Ordered By: Taylor Tijerina on 11-01-2022 Lymphocytes/100 WBC (Bld) 26.9 % . [facility] MCH Auto (RBC) [Entitic mass ]Ordered By: Taylor Tijerina on 11-01-2022 MCH (RBC) [Entitic mass] 33.1 pg 24.7-34.3 [facility] MCHC Auto (RBC) [Mass/Vol]Or dered By: Taylor Tijerina on 11-01-2022 MCHC (RBC) [Mass/Vol] 34.7 g/dL 32.0-35.0 [facility] MCV Auto (RBC) [Entitic vol] Ordered By: Taylor Tijerina on 11-01-2022 MCV (RBC) [Entitic vol] 95.6 fL 80-100 [facility] Monocytes Auto (Bld) [#/Vol] Ordered By: Taylor Tijerina on 11-01-2022 Monocytes (Bld) [#/Vol] 0.6 10*3/uL 0.0-0.8 [facility] Monocytes/100 WBC Auto (Bld) Ordered By: Taylor Tijerina on 11-01-2022 Monocytes/100 WBC (Bld) 9.5 % . [facility] Neutrophils Auto (Bld) [#/Vo l]Ordered By: Taylor Tijerina on 11-01-2022 Neutrophils (Bld) [#/Vol] 3.8 10*3/uL 1.8-7.7 [facility] Neutrophils/100 WBC Auto (Bl d)Ordered By: Taylor Tijerina on 11-01-2022 Neutrophils/100 WBC (Bld) 60.6 % . [facility] No Panel InformationOrdered By: Taylor Tijerina on 11-01-2022 Estimated GFR (CKD-EPI) > 60.0 mL/Min [facility] Creatinine Clearance (Chem 57.26 [facility] Nucleated erythrocytes [Pres ence] in Blood by Automated countOrdered By: Taylor Tijerina on 11-01-2022 Nucleated RBC Auto Ql (Bld) 0.2 /100{WBC} 0-0.5 [facility] Platelet mean volume Auto (B ld) [Entitic vol]Ordered By: Taylor Tijerina on 11-01-2022 Platelet mean volume (Bld) [Entitic vol] 7.1 fL 6.3-10.7 [facility] Platelets Auto (Bld) [#/Vol] Ordered By: Taylor Tijerina on 11-01-2022 Platelets (Bld) [#/Vol] 266 10*3/uL 150-450 [facility] Potassium [Moles/volume] in Serum or PlasmaOrdered By: Taylor Tijerina on 11-01-2022 Potassium [Moles/Vol] 4.3 mmol/L 3.5-5.1 [facility] Protein [Mass/volume] in Ser um or PlasmaOrdered By: Taylor Tijerina on 11-01-2022 Protein [Mass/Vol] 6.0 g/dL 6.4-8.9 [facility] RBC Auto (Bld) [#/Vol]Ordere d By: Taylor Tijerina on 11-01-2022 RBC (Bld) [#/Vol] 3.92 10*6/uL 3.60-5.00 [facility] Serum or plasma albumin/glob ulin mass ratioOrdered By: Taylor Tijerina on 11-01-2022 Albumin/Globulin [Mass ratio] 1.7 {ratio} [facility] Serum or plasma anion gap de terminationOrdered By: Taylor Tijerina on 11-01-2022 Anion gap [Moles/Vol] 11.4 mmol/L 6.0-15.0 [facility] Sodium [Moles/volume] in Ser um or PlasmaOrdered By: Taylor Tijerina on 11-01-2022 Sodium [Moles/Vol] 136 mmol/L 136-145 [facility] Transferrin [Mass/volume] in Serum or PlasmaOrdered By: Taylor Tijerina on 11-01-2022 Transferrin [Mass/Vol] 266 mg/dL 203-362 [facility] Urea nitrogen [Mass/volume] in Serum or PlasmaOrdered By: Taylor Tijerina on 11-01-2022 Urea nitrogen [Mass/Vol] 22 mg/dL 7-25 [facility] WBC Auto (Bld) [#/Vol]Ordere d By: Taylor Tijerina on 11-01-2022 WBC (Bld) [#/Vol] 6.3 10*3/uL 3.8-11.6 [facility] Basophils Auto (Bld) [#/Vol] Ordered By: Emily Degroot on 07-22-2022 Basophils (Bld) [#/Vol] 0.0 10*3/uL 0.0-0.2 [facility] Basophils/100 WBC Auto (Bld) Ordered By: Emily Degroot on 07-22-2022 Basophils/100 WBC (Bld) 0.5 % . [facility] Complete Blood Count Auto Di ffon 07-22-2022 Basophils (Bld) [#/Vol] 0.0 10*3/uL Normal 0.0-0.2 [facility] Comment on above: Result Comment: PERF ORMED BY: [facility] [address] [facility] [place] [address] PATHOLOGIST DIRECTOR OF ENTERTAINMENT JOSE QUIROZ M.D. Performed By: #### C BC, FE and TIBC, CHEL #### [facility] [address] Basophils/100 WBC (Bld) 0.5 % Normal . [facility] Comment on above: Performed By: #### C BC, FE and TIBC, CHEL #### [facility] [address] [place] [address] [place] Eosinophils (Bld) [#/Vol] 0.1 10*3/uL Normal 0.0-0.45 [facility] Comment on above: Performed By: #### C BC, FE and TIBC, CHEL #### [facility] [address] [place] [address] [place] Eosinophils/100 WBC (Bld) 1.8 % Normal . [facility] Comment on above: Performed By: #### C BC, FE and TIBC, CHEL #### [facility] [address] [place] [address] [place] Erythrocyte distribution width (RBC) [Ratio] 15.1 % Normal 11.9-15.3 [facility] Comment on above: Performed By: #### C BC, FE and TIBC, CHEL #### [address] Hematocrit (Bld) [Volume fraction] 39.5 % Normal 34.0-46.4 [facility] Comment on above: Performed By: #### C BC, FE and TIBC, CHEL #### [address] Hemoglobin (Bld) [Mass/Vol] 13.5 g/dL Normal 11.8-15.4 [facility] Comment on above: Performed By: #### C BC, FE and TIBC, CHEL #### [address] Lymphocytes (Bld) [#/Vol] 1.5 10*3/uL Normal 1.00-4.8 [facility] Comment on above: Performed By: #### C BC, FE and TIBC, CHEL #### [address] Lymphocytes/100 WBC (Bld) 24.3 % Normal . [facility] Comment on above: Performed By: #### C BC, FE and TIBC, CHEL #### [address] MCH (RBC) [Entitic mass] 31.7 pg Normal 24.7-34.3 [facility] Comment on above: Performed By: #### C BC, FE and TIBC, CHEL #### [address] MCV (RBC) [Entitic vol] 92.9 fL Normal 80-100 [facility] Comment on above: Performed By: #### C BC, FE and TIBC, CHEL #### [address] Mean Corpuscular HGB Conc 34.1 g/dL Normal 32.0-35.0 [facility] Comment on above: Performed By: #### C BC, FE and TIBC, CHEL #### [facility] [address] Monocytes (Bld) [#/Vol] 0.5 10*3/uL Normal 0.0-0.8 [facility] Comment on above: Performed By: #### C BC, FE and TIBC, CHEL #### [facility] [address] Monocytes/100 WBC (Bld) 7.9 % Normal . [facility] Comment on above: Performed By: #### C BC, FE and TIBC, CHEL #### [facility] [address] Neutrophils (Bld) [#/Vol] 4.1 10*3/uL Normal 1.8-7.7 [facility] Comment on above: Performed By: #### C BC, FE and TIBC, CHEL #### [facility] [address] Neutrophils/100 WBC (Bld) 65.5 % Normal . [facility] Comment on above: Performed By: #### C BC, FE and TIBC, CHEL #### [facility] [address] [place] [address] [place] NRBC% 0.1 /100{WBC} Normal 0-0.5 [facility] Comment on above: Performed By: #### C BC, FE and TIBC, CHEL #### [facility] [address] Platelet mean volume (Bld) [Entitic vol] 7.1 fL Normal 6.3-10.7 [facility] Comment on above: Performed By: #### C BC, FE and TIBC, CHEL #### [facility] [address] [place] [address] [place] Platelets (Bld) [#/Vol] 308 10*3/uL Normal 150-450 [facility] Comment on above: Performed By: #### C BC, FE and TIBC, CHEL #### [facility] [address] [place] [address] [place] RBC (Bld) [#/Vol] 4.25 10*6/uL Normal 3.60-5.00 [facility] Comment on above: Performed By: #### C BC, FE and TIBC, CHEL #### [address] WBC (Bld) [#/Vol] 6.2 10*3/uL Normal 3.8-11.6 [facility] Comment on above: Performed By: #### C BC, FE and TIBC, CHEL #### [address] Eosinophils Auto (Bld) [#/Vo l]Ordered By: Emily Degroot on 07-22-2022 Eosinophils (Bld) [#/Vol] 0.1 10*3/uL 0.0-0.45 [facility] Eosinophils/100 WBC Auto (Bl d)Ordered By: Emily Degroot on 07-22-2022 Eosinophils/100 WBC (Bld) 1.8 % . [facility] Erythrocyte distribution wid th Auto (RBC) [Ratio]Ordered By: Emily Degroot on 07-22-2022 Erythrocyte distribution width (RBC) [Ratio] 15.1 % 11.9-15.3 [facility] Ferritinon 07-22-2022 Ferritin [Mass/Vol] 27.4 ng/mL Normal 11.0-306.8 [facility] Comment on above: Order Comment: PT NO T FASTING Result Comment: PERF ORMED BY: [place] [address] PATHOLOGIST DIRECTOR OF ENTERTAINMENT JOSE QUIROZ M.D. Performed By: #### C BC, FE and TIBC, CMP, CHEL #### [address] Ferritin [Mass/volume] in Se rum or PlasmaOrdered By: Emily Degroot on 07-22-2022 Ferritin [Mass/Vol] 27.4 ng/mL 11.0-306.8 [facility] Hematocrit Auto (Bld) [Volum e fraction]Ordered By: Emily Degroot on 07-22-2022 Hematocrit (Bld) [Volume fraction] 39.5 % 34.0-46.4 [facility] Hemoglobin [Mass/volume] in BloodOrdered By: Emily Degroot on 07-22-2022 Hemoglobin (Bld) [Mass/Vol] 13.5 g/dL 11.8-15.4 [facility] Iron [Mass/volume] in Serum or PlasmaOrdered By: Emily Degroot on 07-22-2022 Iron [Mass/Vol] 75 ug/dL 50-212 [facility] Iron and TIBC Profileon % Iron Saturation 15.4 % Low 20-50 [facility] Comment on above: Order Comment: PT NO T FASTING Performed By: #### C BC, FE and TIBC, CHEL #### [facility] [address] [place] [id number] [facility] Iron [Mass/Vol] 75 ug/dL Normal 50-212 [facility] Comment on above: Order Comment: PT NO T FASTING Performed By: #### C BC, FE and TIBC, CHEL #### [facility] [address] Total Iron Binding Capacity 486 ug/dL High 255-450 [facility] Comment on above: Order Comment: PT NO T FASTING Performed By: #### C BC, FE and TIBC, CHEL #### [facility] [address] [place] [id number] [place] Transferrin [Mass/Vol] 347 mg/dL Normal 203-362 [facility] Comment on above: Order Comment: PT NO T FASTING Performed By: #### C BC, FE and TIBC, CHEL #### [facility] [address] [place] [id number] [place] Iron binding capacity [Mass/ volume] in Serum or PlasmaOrdered By: Emily Degroot on 07-22-2022 Iron binding capacity [Mass/Vol] 486 ug/dL 255-450 [facility] Iron saturation [Mass Fracti on] in Serum or PlasmaOrdered By: Emily Degroot on 07-22-2022 Iron saturation [Mass fraction] 15.4 % 20-50 [facility] Leukocytes [#/volume] correc shara for nucleated erythrocytes in Blood by Automated counOrdered By: Emily Degroot on 07-22-2022 WBC corrected for nucl RBC Auto (Bld) [#/Vol] 6.2 10*3/uL 3.8-11.6 [facility] Lymphocytes Auto (Bld) [#/Vo l]Ordered By: Emily Degroot on 07-22-2022 Lymphocytes (Bld) [#/Vol] 1.5 10*3/uL 1.00-4.8 [facility] Lymphocytes/100 WBC Auto (Bl d)Ordered By: Emily Degroot on 07-22-2022 Lymphocytes/100 WBC (Bld) 24.3 % . [facility] MCH Auto (RBC) [Entitic mass ]Ordered By: Emily Degroot on 07-22-2022 MCH (RBC) [Entitic mass] 31.7 pg 24.7-34.3 [facility] MCHC Auto (RBC) [Mass/Vol]Or dered By: Emily Degroot on 07-22-2022 MCHC (RBC) [Mass/Vol] 34.1 g/dL 32.0-35.0 [facility] MCV Auto (RBC) [Entitic vol] Ordered By: Emily Degroot on 07-22-2022 MCV (RBC) [Entitic vol] 92.9 fL 80-100 [facility] Monocytes Auto (Bld) [#/Vol] Ordered By: Emily Degroot on 07-22-2022 Monocytes (Bld) [#/Vol] 0.5 10*3/uL 0.0-0.8 [facility] Monocytes/100 WBC Auto (Bld) Ordered By: Emily Degroot on 07-22-2022 Monocytes/100 WBC (Bld) 7.9 % . [facility] Neutrophils Auto (Bld) [#/Vo l]Ordered By: Emily Degroot on 07-22-2022 Neutrophils (Bld) [#/Vol] 4.1 10*3/uL 1.8-7.7 [facility] Neutrophils/100 WBC Auto (Bl d)Ordered By: Emily Degroot on 07-22-2022 Neutrophils/100 WBC (Bld) 65.5 % . [facility] Nucleated erythrocytes [Pres ence] in Blood by Automated countOrdered By: Emily Degroot on 07-22-2022 Nucleated RBC Auto Ql (Bld) 0.1 /100{WBC} 0-0.5 [facility] Platelet mean volume Auto (B ld) [Entitic vol]Ordered By: Emily Degroot on 07-22-2022 Platelet mean volume (Bld) [Entitic vol] 7.1 fL 6.3-10.7 [facility] Platelets Auto (Bld) [#/Vol] Ordered By: Emily Degroot on 07-22-2022 Platelets (Bld) [#/Vol] 308 10*3/uL 150-450 [facility] RBC Auto (Bld) [#/Vol]Ordere d By: Emily Degroot on 07-22-2022 RBC (Bld) [#/Vol] 4.25 10*6/uL 3.60-5.00 [facility] Transferrin [Mass/volume] in Serum or PlasmaOrdered By: Emily Degroot on 07-22-2022 Transferrin [Mass/Vol] 347 mg/dL 203-362 [facility] WBC Auto (Bld) [#/Vol]Ordere d By: Emily Degroot on 07-22-2022 WBC (Bld) [#/Vol] 6.2 10*3/uL 3.8-11.6 [facility] Anisocytosis LM Ql (Bld)Orde red By: Marisabel Noel on 04-23-2022 Anisocytosis Ql (Bld) Moderate [facility] Basophils Auto (Bld) [#/Vol] Ordered By: Marisabel Noel on 04-23-2022 Basophils (Bld) [#/Vol] 0.1 10*3/uL 0.0-0.2 [facility] Basophils/100 WBC Auto (Bld) Ordered By: Marisabel Noel on 04-23-2022 Basophils/100 WBC (Bld) 0.8 % . [facility] CT biopsyOrdered By: Marisabel foss on 04-23-2022 Transferrin [Mass/Vol] 309 mg/dL 180-380 [facility] Eosinophils Auto (Bld) [#/Vo l]Ordered By: Marisabel Noel on 04-23-2022 Eosinophils (Bld) [#/Vol] 0.2 10*3/uL 0.0-0.45 [facility] Eosinophils/100 WBC Auto (Bl d)Ordered By: Marisabel Noel on 04-23-2022 Eosinophils/100 WBC (Bld) 3.3 % . [facility] Erythrocyte distribution wid th Auto (RBC) [Ratio]Ordered By: Marisabel Noel on 04-23-2022 Erythrocyte distribution width (RBC) [Ratio] 16.9 % 11.9-15.3 [facility] Ferritin [Mass/volume] in Se rum or PlasmaOrdered By: Marisabel Noel on 04-23-2022 Ferritin [Mass/Vol] 40.0 ng/mL 11-306.8 [facility] Hematocrit Auto (Bld) [Volum e fraction]Ordered By: Marisabel Noel on 04-23-2022 Hematocrit (Bld) [Volume fraction] 40.2 % 34.0-46.4 [facility] Hemoglobin [Mass/volume] in BloodOrdered By: Marisabel Noel on 04-23-2022 Hemoglobin (Bld) [Mass/Vol] 13.5 g/dL 11.8-15.4 [facility] Hypochromia LM Ql (Bld)Order ed By: Marisabel Noel on 04-23-2022 Hypochromia Ql (Bld) Moderate [facility] Iron [Mass/volume] in Serum or PlasmaOrdered By: Marisabel Noel on 04-23-2022 Iron [Mass/Vol] 73 ug/dL 40-150 [facility] Iron binding capacity [Mass/ volume] in Serum or PlasmaOrdered By: Marisabel Noel on 04-23-2022 Iron binding capacity [Mass/Vol] 433 ug/dL 255-450 [facility] Iron saturation [Mass Fracti on] in Serum or PlasmaOrdered By: Marisabel Noel on 04-23-2022 Iron saturation [Mass fraction] 16.0 % 20-50 [facility] Leukocytes [#/volume] correc shara for nucleated erythrocytes in Blood by Automated counOrdered By: Marisabel Noel on 04-23-2022 WBC corrected for nucl RBC Auto (Bld) [#/Vol] 7.0 10*3/uL 3.8-11.6 [facility] Lymphocytes Auto (Bld) [#/Vo l]Ordered By: Marisabel Noel on 04-23-2022 Lymphocytes (Bld) [#/Vol] 1.4 10*3/uL 1.00-4.8 [facility] Lymphocytes/100 WBC Auto (Bl d)Ordered By: Marisabel Noel on 04-23-2022 Lymphocytes/100 WBC (Bld) 20.8 % . [facility] MCH Auto (RBC) [Entitic mass ]Ordered By: Marisabel Noel on 04-23-2022 MCH (RBC) [Entitic mass] 29.8 pg 24.7-34.3 [facility] MCHC Auto (RBC) [Mass/Vol]Or dered By: Marisabel Noel on 04-23-2022 MCHC (RBC) [Mass/Vol] 33.4 g/dL 32.0-35.0 [facility] MCV Auto (RBC) [Entitic vol] Ordered By: Marisabel Noel on 04-23-2022 MCV (RBC) [Entitic vol] 89.2 fL 80-100 [facility] Microcytes LM Ql (Bld)Ordere d By: Marisabel Noel on 04-23-2022 Microcytes Ql (Bld) Slight [facility] Monocytes Auto (Bld) [#/Vol] Ordered By: Marisabel Noel on 04-23-2022 Monocytes (Bld) [#/Vol] 0.5 10*3/uL 0.0-0.8 [facility] Monocytes/100 WBC Auto (Bld) Ordered By: Marisabel Noel on 04-23-2022 Monocytes/100 WBC (Bld) 6.9 % . [facility] Neutrophils Auto (Bld) [#/Vo l]Ordered By: Marisabel Noel on 04-23-2022 Neutrophils (Bld) [#/Vol] 4.7 10*3/uL 1.8-7.7 [facility] Neutrophils/100 WBC Auto (Bl d)Ordered By: Marisabel Noel on 04-23-2022 Neutrophils/100 WBC (Bld) 68.2 % . [facility] Nucleated erythrocytes [Pres ence] in Blood by Automated countOrdered By: Marisabel Noel on 04-23-2022 Nucleated RBC Auto Ql (Bld) 0.1 /100{WBC} 0-0.5 [facility] Ovalocyte detectionOrdered B y: Marisabel Noel on 04-23-2022 Ovalocytes LM Ql (Bld) Slight [facility] Platelet adequacy [Presence] in Blood by Light microscopyOrdered By: Marisabel Noel on 04-23-2022 Platelets LM Ql (Bld) Normal Normal [facility] Platelet mean volume Auto (B ld) [Entitic vol]Ordered By: Marisabel Noel on 04-23-2022 Platelet mean volume (Bld) [Entitic vol] 6.9 fL 6.3-10.7 [facility] Platelet morphology finding [Identifier] in BloodOrdered By: Marisabel Noel on 04-23-2022 Platelet morphology finding Nom (Bld) Normal Normal [facility] Platelets Auto (Bld) [#/Vol] Ordered By: Marisabel Noel on 04-23-2022 Platelets (Bld) [#/Vol] 298 10*3/uL 150-450 [facility] RBC Auto (Bld) [#/Vol]Ordere d By: Marisabel Noel on 04-23-2022 RBC (Bld) [#/Vol] 4.51 10*6/uL 3.60-5.00 [facility] RBC morphologyOrdered By: Pablo Noel on 04-23-2022 RBC morphology finding Nom (Bld) N/A [facility] Red blood cell stomatocyte d etectionOrdered By: Marisabel Noel on 04-23-2022 Stomatocytes LM Ql (Bld) Slight [facility] WBC Auto (Bld) [#/Vol]Ordere d By: Marisabel Noel on 04-23-2022 WBC (Bld) [#/Vol] 7.0 10*3/uL 3.8-11.6 [facility] Basophils Auto (Bld) [#/Vol] Ordered By: Taylor Tijerina on 02-18-2022 Basophils (Bld) [#/Vol] N/A [facility] Basophils/100 WBC Auto (Bld) Ordered By: Taylor Tijerina on 02-18-2022 Basophils/100 WBC (Bld) N/A [facility] Basophils/100 WBC (Bld) 1 % 0-2 F [facility] Blood anisocytosis detection Ordered By: Taylor Tijerina on 02-18-2022 Anisocytosis Ql (Bld) Marked [facility] Blood hemoglobin measurement (mass/volume)Ordered By: Taylor Tijerina on 02-18-2022 Hemoglobin (Bld) [Mass/Vol] 11.1 g/dL 11.8-15.4 [facility] Blood leukocytes automated c ount (number/volume)Ordered By: Taylor Tijerina on 02-18-2022 WBC (Bld) [#/Vol] 4.5 10*3/uL 4.5-11.0 [facility] CT biopsyOrdered By: Taylor Trammell on 02-18-2022 Transferrin [Mass/Vol] 297 mg/dL 180-380 [facility] Eosinophils Auto (Bld) [#/Vo l]Ordered By: Taylor Tijerina on 02-18-2022 Eosinophils (Bld) [#/Vol] N/A [facility] Eosinophils/100 WBC Auto (Bl d)Ordered By: Taylor Tijerina on 02-18-2022 Eosinophils/100 WBC (Bld) N/A [facility] Erythrocyte distribution wid th Auto (RBC) [Ratio]Ordered By: Taylor Tijerina on 02-18-2022 Erythrocyte distribution width (RBC) [Ratio] 38.8 % 11.9-15.3 [facility] Ferritin [Mass/volume] in Se rum or PlasmaOrdered By: Taylor Tijerina on 02-18-2022 Ferritin [Mass/Vol] 229.8 ng/mL 11-306.8 [facility] Hematocrit Auto (Bld) [Volum e fraction]Ordered By: Taylor Tijerina on 02-18-2022 Hematocrit (Bld) [Volume fraction] 35.2 % 34.0-46.4 [facility] Hypochromia detectionOrdered By: Taylor Tijerina on 02-18-2022 Hypochromia Ql (Bld) Marked [facility] Iron [Mass/volume] in Serum or PlasmaOrdered By: Taylor Tijerina on 02-18-2022 Iron [Mass/Vol] 116 ug/dL 40-150 [facility] Iron binding capacity [Mass/ volume] in Serum or PlasmaOrdered By: Taylor Tijerina on 02-18-2022 Iron binding capacity [Mass/Vol] 416 ug/dL 255-450 [facility] Iron saturation [Mass Fracti on] in Serum or PlasmaOrdered By: Taylor Tijerina on 02-18-2022 Iron saturation [Mass fraction] 27.0 % 20-50 [facility] Laboratory - Hematology and Cell countsOrdered By: Taylor Tijerina on 02-18-2022 Band form neutrophils/100 WBC (Bld) 2 % 0-5 [facility] Nucleated RBC/100 WBC (Bld) [Ratio] 0.1 % 0-0.5 [facility] Lymphocytes Auto (Bld) [#/Vo l]Ordered By: Taylor Tijerina on 02-18-2022 Lymphocytes (Bld) [#/Vol] N/A [facility] Lymphocytes/100 WBC Auto (Bl d)Ordered By: Taylor Tijerina on 02-18-2022 Lymphocytes/100 WBC (Bld) N/A [facility] Lymphocytes/100 WBC (Bld) 21 % 18-42 [facility] Lymphocytes/100 WBC Manual c nt (Bld)Ordered By: Taylor Tijerina on 02-18-2022 Lymphocytes/100 WBC (Bld) 2 % 0-12 [facility] MCH Auto (RBC) [Entitic mass ]Ordered By: Taylor Tijerina on 02-18-2022 MCH (RBC) [Entitic mass] 24.7 pg 24.7-34.3 [facility] MCHC Auto (RBC) [Mass/Vol]Or dered By: Taylor Tijerina on 02-18-2022 MCHC (RBC) [Mass/Vol] 31.6 g/dL 32.0-35.0 [facility] MCV Auto (RBC) [Entitic vol] Ordered By: Taylor Tijerina on 02-18-2022 MCV (RBC) [Entitic vol] 78.3 fL 80-100 [facility] Macrocytes detectionOrdered By: Taylor Tijerina on 02-18-2022 Macrocytes Ql (Bld) Moderate [facility] Monocytes Auto (Bld) [#/Vol] Ordered By: Taylor Tijerina on 02-18-2022 Monocytes (Bld) [#/Vol] N/A [facility] Monocytes/100 WBC Auto (Bld) Ordered By: Taylor Tijerina on 02-18-2022 Monocytes/100 WBC (Bld) N/A [facility] Monocytes/100 WBC Manual cnt (Bld)Ordered By: Taylor Tijerina on 02-18-2022 Monocytes/100 WBC (Bld) 6 % 2-11 [facility] Neutrophils Auto (Bld) [#/Vo l]Ordered By: Taylor Tijerina on 02-18-2022 Neutrophils (Bld) [#/Vol] N/A [facility] Neutrophils/100 WBC Auto (Bl d)Ordered By: Taylor Tijerina on 02-18-2022 Neutrophils/100 WBC (Bld) N/A [facility] No Panel InformationOrdered By: Taylor Tijerina on 02-18-2022 Microcytosis Slight [facility] Platelet Estimate Normal Normal [facility] Platelet Morphology Comment Normal Normal [facility] Platelet mean volume Auto (B ld) [Entitic vol]Ordered By: Taylor Tijerina on 02-18-2022 Platelet mean volume (Bld) [Entitic vol] 8.4 fL 6.3-10.7 [facility] Platelets Auto (Bld) [#/Vol] Ordered By: Taylor Tijerina on 02-18-2022 Platelets (Bld) [#/Vol] 363 10*3/uL 150-450 [facility] RBC Auto (Bld) [#/Vol]Ordere d By: Taylor Tijerina on 02-18-2022 RBC (Bld) [#/Vol] 4.49 10*6/uL 3.60-5.00 [facility] RBC morphologyOrdered By: Ana Laura shannon Lilliana on 02-18-2022 RBC morphology finding Nom (Bld) N/A [facility] Red blood cell stomatocyte d etectionOrdered By: Taylor Chengpranay on 02-18-2022 Stomatocytes LM Ql (Bld) Slight [facility] Segmented neutrophils/100 WB C Manual cnt (Bld)Ordered By: Taylor Chengpranay on 02-18-2022 Segmented neutrophils/100 WBC (Bld) 68 % 50-70 [facility] Progress Noteson 02-17-2022 Law Enforcement Director Authentication Interface Message Text EMERGENCY TRIAGE, TREAT AND TRANSPORT (ET3) DOCUMENTATION OF TELEHEALTH VISIT Date / Time: 02/17/2022916 Name: Nuvia Abraham : 1945 SSN: [id number] EMS Agency: [facility] [x] Verbal consent obtained [] Implied consent - patient with potential emergency medical condition requiring assessment of capacity to refuse treatment and/or transport VITAL SIGNS: see flowsheet documentation Reason for Telehealth Visit: Chief Complaint Patient presents with Fall fall History of Present Ilness: Per EMS Reports mechanical fall this Am. Denies head inj loc. No injuries Has capacity Would like to refuse transport Additional pertinent PMHx, SocHx, FamHx: DM HTN COPD Review of Systems: Unable to obtain Exam: Unable to complete Medical Decision Making: Standard Refusal done by EMS Unable to complete full tele health assessment d/t connection issues. Disposition Supported by Telehealth Assessment: ET3 transport decisions: Refused transport EMS Disposition Reported: Same ET3 Encounter Completed by: Cassidy Julio MD Normal [facility] [employer] CT FACIAL BONES WO CONon CT FACIAL BONES WO CON INDICATION: 76 ye ars old; Female. Closed head trauma status post fall. Nasal pain. No loss of consciousness. TECHNIQUE: CT Head (ax/cor/sag reformats). Ionizing radiation dose reduced via iterative reconstruction/FBP blend and body size kV/mA adjustment. Comparison: Head CT dated 06/04/2021. Brain MRI dated 06/05/2021. FINDINGS: POSTOPERATIVE CHANGES: None. BRAIN PARENCHYMA: No hemorrhage, mass or acute infarct. Subtle patchy low-density in the subcortical white matter without mass effect consistent with small vessel ischemia. VENTRICLES/EXTRA-AXI AL SPACES: Normal for patient's age. Dilated perivascular space in the lentiform nucleus on the right. SINUSES/MASTOIDS: Visualized sinuses are clear. Please see the facial bone portion of this report.. Mastoid air cells are clear. MSK: No displaced or depressed calvarial fractures are noted. OTHER: No hyperdense intraluminal thrombus is seen. Vascular calcifications are noted. Incidental note is disconjugate gaze with right external strabismus. This is a nonspecific finding. TECHNIQUE: CT of the facial bones was performed. IV contrast: None. Axial, coronal, sagittal reformats were created and reviewed. Ionizing radiation dose reduced via iterative reconstruction/FBP blend and body size kV/mA adjustment. Dose reduction techniques were achieved by using automated exposure control and/or adjustment of mA and/or kV according to patient size and/or use of iterative reconstruction technique. COMPARISON: None FINDINGS: FRONTAL BONES: SUPRAORBITAL SOFT TISSUES: Normal without swelling, laceration or foreign body. ORBITS: Globes: Normal without proptosis or evidence of disruption or intraocular foreign body. Retrobulbar fat: normal without mass or hematoma. Extraocular Muscles: Normal and symmetric without prolapse or evidence of entrapment. Optic Nerves: Normal without mass-effect or evidence of disruption. Preseptal Soft Tissues: Normal without swelling, laceration or foreign body. Lester: Intact without evidence of fracture. MAXILLA AND MANDIBLE: Maxillary and buccal soft tissues: There is soft tissue swelling overlying the maxilla on the left in the infraorbital soft tissues. Maxillary bones: Intact bilaterally without fracture or avulsed teeth. Mandible: No displaced fractures appreciated. Multiple missing teeth. Degenerative change in the TMJ. Nasal bones and septum: There is subtle deformity of the nasal bones without bony displacement. Soft tissue swelling is seen which is greater on the left than the right. There is a soft tissue nasal septal hematoma projecting to the left. This is best seen on the axial images including but not limited to, 47/series 4 and measures 19.48 x 17.44 mm in diameter. The nasal septum is deviated to the right with spur formation. PARANASAL SINUSES: Frontal: Clear. Ethmoid: Clear. Maxillary: Mucoperiosteal thickening with cyst or polyp formation present on the right. Sphenoid: Clear. Zygomatic arch: Intact bilaterally. Pterygoid plates: Intact bilaterally. IMPRESSION: 1. No acute intracranial abnormality. No hemorrhage or mass effect. 2. Small vessel ischemic changes. 3. Vascular calcifications. 4. Subtle deformity of the nasal bones consistent with nondisplaced fracture. There is a anterior septal soft tissue hematoma which projects to the left. Posteriorly the septum is deviated to the right. Electronically authenticated by: CARSON VASQUEZ Date: 2022-01-14 02:14 Normal [facility] XR CHEST 1 Von 01-14-2022 XR CHEST 1 V XR CHEST 1 V 01/14/2022 1:42 AM EDT CLINICAL INDICATION: Cough COMPARISON: 11/23/2021 TECHNIQUE: Portable semiupright AP view of the chest. FINDINGS: There are no tubes or implants noted. The cardiomediastinal silhouette and pulmonary vasculature are within normal limits. Aortic calcifications are seen. No focal opacity concerning for consolidation. No pneumothorax or pleural effusion. Osseous structures demonstrate degenerative changes. Soft tissues are grossly unremarkable. IMPRESSION: No acute cardiopulmonary abnormality. Electronically authenticated by: JANET SCHWARTZ Date: 2022-01-14 03:18 Normal [facility] Albumin [Mass/volume] in Ser um or PlasmaOrdered By: Taylor Tijerina on 01-12-2022 Albumin [Mass/Vol] 3.1 g/dL 2.9-4.4 [facility] Basophils Auto (Bld) [#/Vol] Ordered By: Taylor Tijerina on 01-12-2022 Basophils (Bld) [#/Vol] 0.1 10*3/uL 0.0-0.2 [facility] Basophils/100 WBC Auto (Bld) Ordered By: Taylor Tijerina on 01-12-2022 Basophils/100 WBC (Bld) 0.9 % . [facility] Blood anisocytosis detection Ordered By: Taylor Tijerina on 01-12-2022 Anisocytosis Ql (Bld) Moderate [facility] Blood hemoglobin measurement (mass/volume)Ordered By: Taylor Tijerina on 01-12-2022 Hemoglobin (Bld) [Mass/Vol] 8.2 g/dL 11.8-15.4 [facility] Blood leukocytes automated c ount (number/volume)Ordered By: Taylor Tijerina on 01-12-2022 WBC (Bld) [#/Vol] 6.0 10*3/uL 4.5-11.0 [facility] Blood polychromasia detectio n by light microscopyOrdered By: Taylor Tijerina on 01-12-2022 Polychromasia LM Ql (Bld) Slight [facility] Body fluid albumin measureme nt (mass/volume)Ordered By: Taylor Tijerina on 01-12-2022 Albumin (Body fld) [Mass/Vol] 2.9 g/dL 3.2-5.[address] [facility] CT biopsyOrdered By: Taylor Trammell on 01-12-2022 Transferrin [Mass/Vol] 479 mg/dL 180-380 [facility] Creatinine and Glomerular fi ltration rate.predicted panel (S/P/Bld)Ordered By: Taylor Tijerina on 01-12-2022 Creatinine [Mass/Vol] 0.76 mg/dL 0.44-1.03 [facility] Eosinophils Auto (Bld) [#/Vo l]Ordered By: Taylor Tijerina on 01-12-2022 Eosinophils (Bld) [#/Vol] 0.1 10*3/uL 0.0-0.45 [facility] Eosinophils/100 WBC Auto (Bl d)Ordered By: Taylor Tijerina on 01-12-2022 Eosinophils/100 WBC (Bld) 1.3 % . [facility] Erythrocyte distribution wid th Auto (RBC) [Ratio]Ordered By: Taylor Tijerina on 01-12-2022 Erythrocyte distribution width (RBC) [Ratio] 22.4 % 11.9-15.3 [facility] Erythrocyte sedimentation ra te by Photometric methodOrdered By: Taylor Tijerina on 01-12-2022 ESR Photometric method (Bld) [Velocity] 21 mm/hr 0-29 [facility] Estimated glomerular filtrat ion rate (GFR) non- AmericanOrdered By: Taylor Tijerina on 01-12-2022 GFR/1.73 sq M.predicted among non-blacks MDRD (S/P/Bld) [Vol rate/Area] > 60 mL/Min [facility] Ferritin [Mass/volume] in Se rum or PlasmaOrdered By: Taylor Tijerina on 01-12-2022 Ferritin [Mass/Vol] 10.8 ng/mL 11-306.8 [facility] Folate [Mass/volume] in Seru m or PlasmaOrdered By: Taylor Tijerina on 01-12-2022 Folate [Mass/Vol] ng/mL >5.9 [facility] Comment on above: Folate reference ran ge: >5.9 ng/ml The WHO technical consultation on folate and vitamin b12 deficiencies has determined that folate concentrations less than 4 ng/ml are considered deficient. Folate reference ran ge: >5.9 ng/mlThe WHO technical consultation on folate and vitamin [id number] has determined that folate concentrations lessthan 4 ng/ml are considered deficient. Globulin Calc (S) [Mass/Vol] Ordered By: Taylor Tijerina on 01-12-2022 Globulin (S) [Mass/Vol] 3.1 g/dL F [facility] Hematocrit Auto (Bld) [Volum e fraction]Ordered By: Taylor Tijerina on 01-12-2022 Hematocrit (Bld) [Volume fraction] 27.4 % 34.0-46.4 [facility] Hypochromia detectionOrdered By: Taylor Tijerina on 01-12-2022 Hypochromia Ql (Bld) Moderate [facility] IgA [Mass/volume] in Serum o r PlasmaOrdered By: Taylor Tijerina on 01-12-2022 IgA [Mass/Vol] 206 mg/dL 64-422 [facility] IgG [Mass/volume] in Serum o r PlasmaOrdered By: Taylor Tijerina on 01-12-2022 IgG [Mass/Vol] 1070 mg/dL 586-1602 [facility] IgM [Mass/volume] in Serum o r PlasmaOrdered By: Taylor Tijerina on 01-12-2022 IgM [Mass/Vol] 166 mg/dL 26-217 [facility] Comment on above: Performed at: [facility] [address] [id number] Center Lead Consultant: Carlos Mcintyre PhD, Phone: [phone] Performed at: [facility] [address] [id number] Director: Carlos Mcintyre PhD, Phone: [phone] Immunoglobulin light chains. kappa.free [Mass/volume] in SerumOrdered By: Taylor Tijerina on 01-12-2022 Immunoglobulin light chains.kappa.free (S) [Mass/Vol] 44.4 mg/L 3.3-19.4 [facility] Immunoglobulin light chains. kappa.free/Immunoglobulin light chains.lambda.free [MassOrdered By: Taylor Tijerina on 01-12-2022 Immunoglobulin light chains.kappa.free/Immun oglobulin light chains.lambda.free (S) [Mass ratio] 1.60 0.26-1.65 [facility] Comment on above: Performed at: [facility] [address] [id number] Center Lead Consultant: Carlos Mcintyre PhD, Phone: [phone] Performed at: [facility] [address] [id number] Director: Carlos Mcintyre PhD, Phone: [phone] Immunoglobulin light chains. lambda.free [Mass/volume] in Serum or PlasmaOrdered By: Taylor Tijerina on 01-12-2022 Immunoglobulin light chains.lambda.free [Mass/Vol] 27.7 mg/L 5.7-26.3 [facility] Iron [Mass/volume] in Serum or PlasmaOrdered By: Taylor Tijerina on 01-12-2022 Iron [Mass/Vol] 10 ug/dL 40-150 [facility] Iron binding capacity [Mass/ volume] in Serum or PlasmaOrdered By: Taylor Tijerina on 01-12-2022 Iron binding capacity [Mass/Vol] 671 ug/dL 255-450 [facility] Iron saturation [Mass Fracti on] in Serum or PlasmaOrdered By: Taylor Tijerina on 01-12-2022 Iron saturation [Mass fraction] 1.0 % 20-50 [facility] Laboratory - Chemistry and C hemistry - challengeOrdered By: Taylor Tijerina on 01-12-2022 Cobalamin (Vitamin B12) [Mass/Vol] 700 pg/mL 180-914 [facility] Laboratory - Hematology and Cell countsOrdered By: Taylor Tijerina on 01-12-2022 Nucleated RBC/100 WBC (Bld) [Ratio] 0.2 % 0-0.5 [facility] Lymphocytes Auto (Bld) [#/Vo l]Ordered By: Taylor Tijerina on 01-12-2022 Lymphocytes (Bld) [#/Vol] 1.1 10*3/uL 1.00-4.8 [facility] Lymphocytes/100 WBC Auto (Bl d)Ordered By: Taylor Tijerina on 01-12-2022 Lymphocytes/100 WBC (Bld) 17.7 % . [facility] Lymphocytes/100 WBC (Bld) 25 % 18-42 [facility] MCH Auto (RBC) [Entitic mass ]Ordered By: Taylor Tijerina on 01-12-2022 MCH (RBC) [Entitic mass] 18.6 pg 24.7-34.3 [facility] MCHC Auto (RBC) [Mass/Vol]Or dered By: Taylor Tijerina on 01-12-2022 MCHC (RBC) [Mass/Vol] 29.8 g/dL 32.0-35.0 [facility] MCV Auto (RBC) [Entitic vol] Ordered By: Taylor Tijerina on 01-12-2022 MCV (RBC) [Entitic vol] 62.5 fL 80-100 F [facility] Macrocytes detectionOrdered By: Taylor Tijerina on 01-12-2022 Macrocytes Ql (Bld) Slight [facility] Monocyte %Ordered By: Taylor hogan on 01-12-2022 Monocytes/100 WBC (Bld) 1 % 1-3 F [facility] Monocytes Auto (Bld) [#/Vol] Ordered By: Taylor Tijerina on 01-12-2022 Monocytes (Bld) [#/Vol] 0.5 10*3/uL 0.0-0.8 [facility] Monocytes/100 WBC Auto (Bld) Ordered By: Taylor Tijerina on 01-12-2022 Monocytes/100 WBC (Bld) 8.4 % . F [facility] Monocytes/100 WBC Manual cnt (Bld)Ordered By: Taylor Tijerina on 01-12-2022 Monocytes/100 WBC (Bld) 6 % 2-11 F [facility] Neutrophils Auto (Bld) [#/Vo l]Ordered By: Taylor Tijerina on 01-12-2022 Neutrophils (Bld) [#/Vol] 4.3 10*3/uL 1.8-7.7 [facility] Neutrophils/100 WBC Auto (Bl d)Ordered By: Taylor Chengpranay on 01-12-2022 Neutrophils/100 WBC (Bld) 71.7 % . [facility] No Panel InformationOrdered By: Taylor Chengpranay on 01-12-2022 Absolute Reticulocyte Count 0.213 10*6/uL 0.024-0.084 [facility] Estimated GFR () > 60 mL/Min [facility] Comment on above: GFR estimated refere nce range: According to KDOQI guidelines, <60 ml/min/1.73m2 is sufficient to diagnose a patient with chronic kidney disease. Microcytosis Slight [facility] Percent Reticulocyte Count 4.9 % 0.5-1.5 [facility] Pharmacy Creatinine Clearance (Chem 60.82 [facility] Platelet Estimate Normal Normal [facility] Platelet Morphology Comment Normal Normal [facility] Protein Electrophoresis M-Brooks Comment: g/dL Not Observed [facility] Comment on above: SPE shows asymmetric al gamma. Protein Electrophoresis Note See comment . [facility] Comment on above: Protein electrophore sis scan will follow via computer, mail, or plater production delivery. Performed at: [facility] [address] [id number] Center Lead Consultant: Carlos Mcintyre PhD, Phone: [phone] Protein electrophore sis scan will follow via computer,mail, or plater production delivery.Performed at: [facility] [id number] Director: Carlos Mcintyre PhD, Phone: [phone] Serum Immunofixation Comment: . [facility] Comment on above: Presence of monoclon al protein is unclear at this time. Suggest repeat in 3 to 6 months if clinically indicated. Presence of monoclon al protein is unclear at this time. Suggestrepeat in 3 to 6 months if clinically indicated. Platelet mean volume Auto (B ld) [Entitic vol]Ordered By: Taylor Tijerina on 01-12-2022 Platelet mean volume (Bld) [Entitic vol] 8.4 fL 6.3-10.7 [facility] Platelets Auto (Bld) [#/Vol] Ordered By: Taylor Tijerina on 01-12-2022 Platelets (Bld) [#/Vol] 386 10*3/uL 150-450 [facility] Protein [Mass/volume] in Ser um or PlasmaOrdered By: Taylor Tijerina on 01-12-2022 Protein [Mass/Vol] 6.0 g/dL 6.1-7.9 [facility] Protein [Mass/Vol] 6.4 g/dL 6.0-8.5 [facility] RBC Auto (Bld) [#/Vol]Ordere d By: Taylor Tijerina on 01-12-2022 RBC (Bld) [#/Vol] 4.38 10*6/uL 3.60-5.00 [facility] RBC morphologyOrdered By: Ana Laura Tijerina on 01-12-2022 RBC morphology finding Nom (Bld) N/A [facility] Segmented neutrophils/100 WB C Manual cnt (Bld)Ordered By: Taylor Tijerina on 01-12-2022 Segmented neutrophils/100 WBC (Bld) 68 % 50-70 [facility] Serum globulin measurement ( mass/volume)Ordered By: Taylor Tijerina on 01-12-2022 Globulin (S) [Mass/Vol] 3.3 g/dL 2.2-3.9 F [facility] Serum or plasma alanine terry otransferase measurement without P-5'-P (enzymatic activiOrdered By: Taylor Tijerina on 01-12-2022 ALT No additional P-5'-P [Catalytic activity/Vol] 25 U/L 10-60 [facility] Serum or plasma albumin/glob ulin mass ratioOrdered By: Taylor Tijerina on 01-12-2022 Albumin/Globulin [Mass ratio] 0.9 {ratio} 0.7-1.7 [facility] Serum or plasma alkaline ariella sphatase measurement (enzymatic activity/volume)Ordered By: Taylor Tijerina on 01-12-2022 ALP [Catalytic activity/Vol] 52 U/L 32-92 [facility] Serum or plasma alpha 1 glob ulin measurement by electrophoresis (mass/volume)Ordered By: Taylor Tijerina on 01-12-2022 Alpha 1 globulin Elph [Mass/Vol] 0.3 g/dL 0.0-0.4 [facility] Serum or plasma alpha 2 glob ulin measurement by electrophoresis (mass/volume)Ordered By: Taylor Tijerina on 01-12-2022 Alpha 2 globulin Elph [Mass/Vol] 0.8 g/dL 0.4-1.0 [facility] Serum or plasma anion gap de terminationOrdered By: Taylor Tijerina on 01-12-2022 Anion gap [Moles/Vol] 16.3 mmol/L 6.0-15.0 [facility] Serum or plasma aspartate am inotransferase measurement (enzymatic activity/volume)Ordered By: Taylor Tijerina on 01-12-2022 AST [Catalytic activity/Vol] 42 U/L 10-42 [facility] Serum or plasma beta globuli n measurement by electrophoresis (mass/volume)Ordered By: Taylor Tijerina on 01-12-2022 Beta globulin Elph [Mass/Vol] 1.1 g/dL 0.7-1.3 [facility] Serum or plasma calcium jake urement (mass/volume)Ordered By: Taylor Tijerina on 01-12-2022 Calcium [Mass/Vol] 8.8 mg/dL 8.2-10.2 [facility] Serum or plasma chloride jie surement (moles/volume)Ordered By: Taylor Tijerina on 01-12-2022 Chloride [Moles/Vol] 84 mmol/L 95-114 [facility] Serum or plasma erythropoiet in (EPO) measurement (units/volume)Ordered By: Taylor Tijerina on 01-12-2022 Erythropoietin (EPO) Qn 745.9 mIU/mL 2.6-18.5 [facility] Comment on above: Roomtag el DxI 800 Immunoassay System Values obtained with different assay methods or kits cannot be used interchangeably. Results cannot be interpreted as absolute evidence of the presence or absence of malignant disease. Performed at: [facility] [address], [place] [id number] Center Lead Consultant: Carlos Mcintyre PhD, Phone: [phone] Roomtag el DxI 800 Immunoassay SystemValues obtained with different assay methods or kits cannotbe used interchangeably. Results cannot be interpreted asabsolute evidence of the presence or absence of malignantdisease.Performed at: [facility], [place] [id number] Director: Carlos Mcintyre PhD, Phone: [phone] Serum or plasma gamma globul in measurement by electrophoresis (mass/volume)Ordered By: Taylor Tijerina on 01-12-2022 Gamma globulin Elph [Mass/Vol] 1.1 g/dL 0.4-1.8 [facility] Serum or plasma glucose jake urement (mass/volume)Ordered By: Taylor Tijerina on 01-12-2022 Glucose [Mass/Vol] 106 mg/dL 70-100 [facility] Comment on above: ADA recommended refe rence range Random Glucose Reference Range is dependent on time and content of last meal. Glucose of more than 200 mg/dL in a nonstressed, ambulatory subject supports the diagnosis of Diabetes Mellitus. ADA recommended refe rence rangeRandom Glucose Reference Range is dependent on time and content of last meal. Glucose of more than 200 mg/dL in a nonstressed, ambulatory subject supports the diagnosis of Diabetes Mellitus. Serum or plasma potassium me asurement (moles/volume)Ordered By: Taylor Tijerina on 01-12-2022 Potassium [Moles/Vol] 4.0 mmol/L 3.5-5.1 [facility] Serum or plasma sodium measu rement (moles/volume)Ordered By: Taylor Tijerina on 01-12-2022 Sodium [Moles/Vol] 125 mmol/L 136-146 [facility] Serum or plasma total biliru bin measurement (mass/volume)Ordered By: Talyor Tijerina on 01-12-2022 Bilirubin [Mass/Vol] 1.0 mg/dL 0.3-1.2 [facility] Serum or plasma total carbon dioxide measurement (moles/volume)Ordered By: Taylor Tijerina on 01-12-2022 CO2 [Moles/Vol] 28.7 mmol/L 22.0-30.0 [facility] Serum or plasma urea nitroge n measurement (mass/volume)Ordered By: Taylor Tijerina on 01-12-2022 Urea nitrogen [Mass/Vol] 9 mg/dL 02-05 [facility] BNPon 11-24-2021 Natriuretic peptide B (Bld) [Mass/Vol] 591.0 pg/mL Normal <=900.0 [facility] Comment on above: Performed By: #### C MP, BNP #### [facility] [address] [address] [address] Good Montiel CBC AUTO DIFFon 11-24-2021 BASO # 0.1 103/ul Normal 0.0-0.1 [facility] Comment on above: Performed By: #### C MP, CMADM #### [facility] [address] [address] [address] Good Montiel Basophils/100 WBC (Bld) 0.7 % Normal 0.2-2.0 [facility] Comment on above: Performed By: #### C MP, CMADM #### [facility] [address] [address] [address] Good Montiel EO # 0.2 103/ul Normal 0.0-0.7 [facility] Comment on above: Performed By: #### C MP, CMADM #### [facility] [address] [address] [address] Good Montiel Eosinophils/100 WBC (Bld) 2.4 % Normal 0.9-7.0 [facility] Comment on above: Performed By: #### C MP, CMADM #### [facility] [address] [address] [address] Good Montiel Erythrocyte distribution width (RBC) [Ratio] 19.1 % Critically high 11.0-15.0 [facility] Comment on above: Performed By: #### C MP, CMADM #### [facility] [address] [address] [address] Good Montiel Hematocrit (Bld) [Volume fraction] 25.5 % Critically low 36.0-48.0 [facility] Comment on above: Performed By: #### C TIFFANY, CMADM #### [facility] [address] [place] [address] Dr. Good Montiel Hemoglobin (Bld) [Mass/Vol] 7.4 g/dL Critically low 12.0-16.0 [facility] Comment on above: Performed By: #### C TIFFANY, CMADM #### [facility] [address] [place] [address] Dr. Good Montiel IG # 0.05 10e3/ul Critically high 0.00-0.03 [facility] Comment on above: Performed By: #### C TIFFANY, DOUGLASDM #### [facility] [address] [place] [address] Dr. Good Montiel IG % 0.6 % Critically high 0.0-0.5 [facility] Comment on above: Performed By: #### C TIFFANY CMADM #### [facility] [address] [place] [address] Dr. Good Montiel LYMPH # 1.7 103/ul Normal 1.2-3.8 [facility] Comment on above: Performed By: #### C DOUGLAS ALLENDM #### [facility] [address] [place] [address] Dr. Good Montiel Lymphocytes/100 WBC (Bld) 20.6 % Normal 20.5-60.0 [facility] Comment on above: Performed By: #### C TIFFANY, DOUGLASDM #### [facility] [address] [place] [address] Dr. Good Montiel MANUAL DIFF REQ NO Normal [facility] Comment on above: Performed By: #### C TIFFANY, CMADM #### [facility] [address] [place] [address] Dr. Good Montiel MCH (RBC) [Entitic mass] 18.9 pg Critically low 26.7-34.0 [facility] Comment on above: Performed By: #### C TIFFANY, CMADM #### [facility] [address] [place] [address] Dr. Good Montiel MCHC (RBC) [Mass/Vol] 29.0 g/dL Critically low 29.9-35.2 [facility] Comment on above: Performed By: #### C TIFFANY, CMADM #### [facility] [address] [address] [address] Good Montiel MCV (RBC) [Entitic vol] 65.2 fL Critically low 81.0-99. 0 [facility] Comment on above: Performed By: #### C TIFFANY, CMADM #### [facility] [address] [place] [address] Dr. Good Montiel MONO # 0.8 103/ul Normal 0.3-0.8 [facility] Comment on above: Performed By: #### C TIFFANY, CMADM #### [facility] [address] [place] [address] Dr. Good Montiel Monocytes/100 WBC (Bld) 9.4 % Normal 1.7-12.0 [facility] Comment on above: Performed By: #### C TIFFANY, CMADM #### [facility] [address] [place] [address] Dr. Good Montiel NEUT # 5.5 103/ul Normal 1.4-6.5 [facility] Comment on above: Performed By: #### C TIFFANY, DOUGLASDM #### [facility] [address] [place] [address] Dr. Good Montiel Neutrophils/100 WBC (Bld) 66.3 % Normal 43.0-75.0 [facility] Comment on above: Performed By: #### C TIFAFNY, CMADM #### [facility] [address] [place] [address] Dr. Good Montiel Platelet mean volume (Bld) [Entitic vol] 9.1 fL Critically low 9.5-13.5 [facility] Comment on above: Performed By: #### C TIFFANY, CMADM #### [facility] [address] [place] [address] Dr. Good Montiel PLT 431 103/ul Normal 150-450 [facility] Comment on above: Performed By: #### C TIFFANY, CMADM #### [facility] [address] [address] [address] Good Montiel RBC 3.91 106/ul Critically low 4.20-5.40 [facility] Comment on above: Performed By: #### C MP, CMADM #### [facility] [address] [address] [address] Good Montiel WBC 8.3 103/ul Normal 4.0-11.0 [facility] Comment on above: Performed By: #### C MP, CMADM #### [facility] [address] [address] [address] Good Montiel Covid-19 PCR ([facility])on 11-13 SARS-CoV-2 (COVID-19) RNA FELECIA+probe Ql (Unsp spec) Not detected Normal NOT DETECTED [facility] Comment on above: Result Comment: When diagnostic testing is negative, the possibility of a false negative should be considered in the context of a patient's recent exposures and the presence of clinical signs and symptoms consistent with SARS-CoV-2. This test is not yet approved or cleared by the [place] FDA. When there are no FDA-approved or cleared tests available, and other criteria are met, FDA can make tests available under an emergency access mechanism called an Emergency Use Authorization (EUA). The EUA for this test is supported by the [place] of Health and Human Service's declaration that circumstances exist to justify the emergency use of in vitro diagnostics for the detection and/or diagnosis of the virus that causes COVID-19. This EUA will remain in effect for the duration of the COVID-19 declaration justifying emergency of IVDs, unless it is terminated or revoked by the FDA (after which the test may no longer be used). Performed By: #### M MA2 #### [facility] [address] [address] [address] Good Montiel PROF 14(COMP METB)on 022 Albumin [Mass/Vol] 3.1 g/dL Critically low 3.4-5.0 [facility] Comment on above: Performed By: #### C MP, BNP #### [facility] [address] [address] [address] Good Montiel Albumin/Globulin [Mass ratio] 0.9 {ratio} Normal [facility] Comment on above: Performed By: #### C MP, BNP #### [facility] [address] [place] [address] Dr. Good Montiel ALP [Catalytic activity/Vol] 60 U/L Normal 46-116 [facility] Comment on above: Performed By: #### C MP, BNP #### [facility] [address] [address] [address] Good Montiel ALT [Catalytic activity/Vol] 30 U/L Normal 14-59 [facility] Comment on above: Performed By: #### C MP, BNP #### [facility] [address] [place] [address] Dr. Good Montiel Anion gap [Moles/Vol] 10.1 mmol/L Normal [facility] Comment on above: Performed By: #### C MP, BNP #### [facility] [address] [place] [address] Dr. Good Montiel AST [Catalytic activity/Vol] 32 U/L Normal 15-37 [facility] Comment on above: Performed By: #### C MP, BNP #### [facility] [address] [place] [address] Dr. Good Montiel Bilirubin [Mass/Vol] 0.7 mg/dL Normal 0.2-1.0 [facility] Comment on above: Performed By: #### C MP, BNP #### [facility] [address] [address] [address] Good Montiel Calcium [Mass/Vol] 8.7 mg/dL Normal 8.5-10.1 [facility] Comment on above: Performed By: #### C MP, BNP #### [facility] [address] [place] [address] Dr. Good Montiel Chloride [Moles/Vol] 93 mmol/L Critically low 98-107 [facility] Comment on above: Performed By: #### C MP, BNP #### [facility] [address] [place] [address] Dr. Good Montiel CO2 [Moles/Vol] 27.5 mmol/L Normal 21.0-32.0 [facility] Comment on above: Performed By: #### C MP, BNP #### [facility] [address] [place] [address] Dr. Good Montiel Creatinine [Mass/Vol] 0.80 mg/dL Normal 0.55-1.02 [facility] Comment on above: Performed By: #### C MP, BNP #### [facility] [address] [address] [address] Good Montiel EGFR-AF CYPRIOT >60 Normal >=60 [facility] Comment on above: Performed By: #### C MP, BNP #### [facility] [address] [place] [address] Dr. Good Montiel EGFR-NON AF CYPRIOT >60 Normal >=60 [facility] Comment on above: Performed By: #### C MP, BNP #### [facility] [address] [place] [address] Dr. Good Montiel Globulin (S) [Mass/Vol] 3.5 g/dL Normal [facility] Comment on above: Performed By: #### C MP, BNP #### [facility] [address] [place] [address] Dr. Good Montiel Glucose [Mass/Vol] 146 mg/dL Critically high 74-106 [facility] Comment on above: Performed By: #### C MP, BNP #### [facility] [address] [place] [address] Dr. Good Montiel Potassium [Moles/Vol] 3.6 mmol/L Normal 3.5-5.1 [facility] Comment on above: Performed By: #### C MP, BNP #### [facility] [address] [place] [address] Dr. Good Montiel Protein [Mass/Vol] 6.6 g/dL Normal 6.4-8.2 [facility] Comment on above: Performed By: #### C MP, BNP #### [facility] [address] [place] [address] Dr. Good Montiel Sodium [Moles/Vol] 127 mmol/L Critically low 136-145 Th e [facility] Comment on above: Performed By: #### C MP, BNP #### [facility] [address], [place] [address] Dr. Good Montiel Urea nitrogen [Mass/Vol] 19.0 mg/dL Critically high 7.0-18.0 [facility] Comment on above: Performed By: #### C MP, BNP #### [facility] [address], [place] [address] Dr. Good Montiel Urea nitrogen/Creatinine [Mass ratio] 23.8 mg/mg Normal [facility] Comment on above: Performed By: #### C MP, BNP #### [facility] [address], [place] [address] Dr. Good Montiel XR CHEST 1 Von 11-24-2021 XR CHEST 1 V CHEST X-RAY HISTORY: Chest pain COMPARISON: 06/05/2021 TECHNIQUE: 1 view chest is submitted for review. FINDINGS: The lungs are adequately expanded with airspace opacity in the right lower lobe. The cardiac silhouette is enlarged. Pulmonary vascularity is unremarkable. Osseous structures are within expected limits for patients age. . IMPRESSION: 1. Airspace opacity in the right lower lobe. Please correlate for pneumonia versus atelectasis. 2. Cardiomegaly. Electronically authenticated by: KETAN ALVAREZ Date: 2021-11-24 00:21 Normal [facility] CT LUNG CANCER SCREENINGon 0 11-10-2021 CT LUNG CANCER SCREENING EXAMINATION: CT LUNG CANCER SCREENING HISTORY: Adult health examination COMPARISON: 11/08/2019 TECHNIQUE: Axial, Coronal, and Sagittal images were created without the administration of IV contrast material. Dose reduction techniques were achieved by using automated exposure control and/or adjustment of mA and/or kV according to patient size and/or use of iterative reconstruction technique. FINDINGS: LUNGS: Stable solid 10 mm nodule in the lingula axial image 57. Stable 8 mm solid nodule in the right lower lobe axial image 70. Minimal emphysema with an apical predominance. Stable scattered patchy infiltrates in the lingula, right middle and lower lobes, atelectasis and/or scar. No new significant pulmonary nodule or mass. Extensive calcification of the tracheobronchial tree. Small amount of endobronchial soft tissue right mainstem bronchus, retained mucus is favored PLEURA: No mass, effusion, or pneumothorax. VASCULATURE: No abnormality. SCOTTIE: Scattered stable lymph nodes MEDIASTINUM: Scattered stable lymph nodes CARDIAC: No enlargement or pericardial effusion. Mild coronary atherosclerosis AORTA: Aortic valve calcifications. Moderate aortic calcifications. No aortic aneurysm CHEST WALL: No mass or axillary adenopathy BONES: No bone lesion or fracture. LIMITED ABDOMEN: No suspicious findings. Limited images of the upper abdomen. OTHER: Negative. IMPRESSION: Stable pulmonary nodules. No new significant nodule or mass LUNG SCREENING: Lung-RADS Category 2- Benign Appearance or Behavior. Nodules with a very low likelihood of becoming a clinically active cancer due to size or lack of growth. 2. Continue annual screening with LDCT in 12 months. Electronically authenticated by: ARIAN GRADY Date: 2021-11-10 10:55 Normal [facility] MAMM SCREEN 3D [place]OTTE CADon 11-10-2021 MG MAMM SCREEN 3D [place] CAD Patient: NUVIA ABRAHAM Exam Date: 11/10/2021 : 1945 Gender:F Ordering : DR AMAN GE Admission #: [id number] Family : Order #: [id number] CLICK HERE TO VIEW EXAM RADIOLOGY REPORT PROCEDURE: MAMMOGRAM SCREENING 3D BILATERAL CAD COMPARISON: MG MAMM CHARLOTTE SCRN W CAD DIG, 08/09/2018. MG MAMM [place] SCRN W CAD DIG, 11/15/2019. INDICATIONS: Primary ovarian failure Calculator Name NCI Breast Cancer Risk Assessment Tool 5 Year Breast Cancer Risk 10.70% Lifetime Breast Cancer Risk 22.80% Personal Breast Cancer No Personal Ovarian Cancer No Treatments None Family Cancers Mother with breast cancer at age 50; Sister with breast cancer at age 60. LOCATION: [facility] BREAST COMPOSITION: Scattered areas fibroglandular density. FINDINGS: DIAGNOSTIC CATEGORY 2--BENIGN FINDING. NO CHANGE FROM COMPARISON. Scattered benign-appearing calcifications are present. Scattered benign-appearing lymph nodes are present. RIGHT BREAST: No significant suspicious finding. LEFT BREAST: No significant suspicious finding. RECOMMENDATIONS: ROUTINE MAMMOGRAM AND CLINICAL EVALUATION IN 12 MONTHS. PLEASE NOTE: A NORMAL MAMMOGRAM DOES NOT EXCLUDE THE POSSIBILITY OF BREAST CANCER. A CLINICALLY SUSPICIOUS PALPABLE LUMP SHOULD BE BIOPSIED. Dictated by: Arian Grady MD on 11/12/2021 at 08:01 Approved by: Arian Grady MD on 11/12/2021 at 08:03 Normal [facility] XR DEXA BONE DENSITYon 11-10 XR DEXA BONE DENSITY EXAMINATION: XR DEX A BONE DENSITY, 11/10/2021 8:59 AM EDT HISTORY: Primary ovarian failure COMPARISON: None. TECHNIQUE: Dual-energy X-ray absorptiometry (DEXA) bone density study performed for the axial skeleton. FINDINGS: Bone mineral density AP spine L1-L4 measures 1.248 g/sq cm. T score 0.6. WHO classification: Normal. The lowest bone mineral densities the left femoral trochanter measuring 0.642 g/sq cm. T score -1.8. WHO classification: Osteopenia IMPRESSION: Osteopenia. Moderate fracture risk Electronically authenticated by: ARIAN GRADY Date: 2021-11-10 17:06 Normal [facility] Comprehensive Metabolic Pane bing 10-01-2021 Albumin [Mass/Vol] 3.9 g/dL Normal 3.6-5.1 [facility] Comment on above: Performed By: #### C MP #### [facility] [address], [place] [id number] Albumin/Globulin [Mass ratio] 1.4 {ratio} Normal 1.0-2.5 [facility] Comment on above: Performed By: #### C MP #### [facility] [address], [place] [id number] ALP [Catalytic activity/Vol] 51 U/L Normal 35-119 [facility] Comment on above: Performed By: #### C MP #### [facility] [address], [place] [id number] ALT [Catalytic activity/Vol] 15 U/L Normal 6-33 [facility] Comment on above: Result Comment: 04/15 Female reference range changed. Performed By: #### C MP #### [facility] [address], [place] [id number] Anion gap [Moles/Vol] 18 mmol/L Normal 12-20 [facility] Comment on above: Result Comment: Effe ctive 05/21/2019 reference range changed. Performed By: #### C MP #### [facility] [address], [place] [id number] AST [Catalytic activity/Vol] 20 U/L Normal 9-34 [facility] Comment on above: Performed By: #### C MP #### [facility] [address], [place] [id number] BUN/CREA 18 Ratio Normal 6-22 [facility] Comment on above: Performed By: #### C MP #### [facility] [address] [facility] [place] [id number] Calcium [Mass/Vol] 9.8 mg/dL Normal 8.6-10.2 [facility] Comment on above: Performed By: #### C MP #### [facility] [address] [facility] [id number] Chloride [Moles/Vol] 88 mmol/L Low 98-107 [facility] Comment on above: Performed By: #### C MP #### [facility] [address], [place] [id number] CO2 [Moles/Vol] 23 mmol/L Normal 20-31 [facility] Comment on above: Performed By: #### C MP #### [facility] [address], [place] [id number] Creatinine [Mass/Vol] 0.9 mg/dL Normal 0.6-1.4 [facility] Comment on above: Performed By: #### C MP #### [facility] [address], [place] [id number] eGFRAA 77 mL/min/1.73m2 Normal >60 [facility] Comment on above: Performed By: #### C MP #### [facility] [address], [place] [id number] eGFRNAA 64 mL/min/1.73m2 Normal >60 [facility] Comment on above: Performed By: #### C MP #### [facility] [address], [place] [id number] Globulin (S) [Mass/Vol] 2.7 g/dL Normal 1.9-3.7 [facility] Comment on above: Performed By: #### C MP #### [facility] [address], [place] [id number] Glucose [Mass/Vol] 151 mg/dL High 65-99 Aga [facility]ian [facility] Comment on above: Result Comment: For FASTING Glucose --- ADA reference ranges: Normal 65-99 mg/dl Prediabetes 100-125 Diabetes >/= 126 Performed By: #### C MP #### [facility] [address], [place] [id number] Potassium [Moles/Vol] 4.5 mmol/L Normal 3.5-5.5 [facility] Comment on above: Performed By: #### C MP #### [facility] [address], [place] [id number] Protein [Mass/Vol] 6.6 g/dL Normal 6.1-8.1 [facility]ga julian [facility] Comment on above: Performed By: #### C MP #### [facility] [address], [place] [id number] Sodium [Moles/Vol] 125 mmol/L Low 135-146 [facility]ga julian [facility] Comment on above: Performed By: #### C MP #### [facility] [address], [place] [id number] TBIL <0.3 Normal [facility] Comment on above: Performed By: #### C MP #### [facility] [address], [place] [id number] Urea nitrogen [Mass/Vol] 16 mg/dL Normal 7-25 [facility] Comment on above: Performed By: #### C MP #### [facility] [address], [place] [id number] VITAMIN B6on 08-20-2021 Vitamin B6 50.1 ug/L Critically high 2.0-32.8 [facility] Comment on above: Result Comment: Ef fective August 17, 2021 Vitamin B6 reference interval will be changing to: 3.4 - 65.2 ug/L Deficiency: < 3.4 Marginal: 3.4 - 5.1 Adequate: > 5.1 Performed By: #### V ITAB6 ####[facility] [address], [place] [address]KfDr. Good Montiel METHYLMALONIC ACID (MMA)on 0 08-18-2021 Methylmalonic Acid, Serum 327 nmol/L Normal 0-378 [facility] Comment on above: Performed By: #### M MA2 #### [facility] [address] [address] [address] Good Montiel IMMUNOFIX ELEC, PROTEIN ELEC URINEon 08-14-2021 Albumin, U 55.3 % Normal [facility] Comment on above: Performed By: #### C TIFFANY, CMADM #### [facility] [address] [address] [address] Good Montiel Jeqlz-0-Cbunlhkk, U 3.9 % Normal [facility] Comment on above: Performed By: #### C TIFFANY, DOUGLASDM #### [facility] [address] [place] [address] Dr. Good Montiel Smxyj-2-Gqxrefee, U 6.7 % Normal [facility] Comment on above: Performed By: #### C TIFFANY, CMADM #### [facility] [address] [address] [address] Good Montiel Beta Globulin, U 12.9 % Normal [facility] Comment on above: Performed By: #### C TIFFANY, DOUGLASDM #### [facility] [address] [address] [address] Good Montiel Gamma Globulin, U 21.1 % Normal [facility] Comment on above: Performed By: #### C TIFFANY, DOUGLASDM #### [facility] [address] [place] [address] Dr. Good Montiel Immunofixation Result, Urine Comment: Normal [facility] Comment on above: Result Comment: Pres ence of monoclonal protein is unclear at this time. Suggest repeat in 3 to 6 months if clinically indicated. Performed By: #### C TIFFANY, CMADM #### [facility] [address] [place] [address] Dr. Good Montiel M-Brooks, % Not Observed Normal Not Observed [facility] Comment on above: Performed By: #### C TIFFANY, CMADM #### [facility] [address] [place] [address] Dr. Good Montiel Note: Comment Normal [facility] Comment on above: Result Comment: Prot ein electrophoresis scan will follow via computer, mail, or plater production delivery. Performed By: #### C TIFFANY, SERAFIN #### [facility] [address] [place] [address] Dr. Good Montiel PDF . Normal [facility] Comment on above: Performed By: #### C TIFFANY, SERAFIN #### [facility] [address] [address] [address] Good Montiel Protein (U) [Mass/Vol] 12.2 mg/dL Normal Not Estab. Th e [facility] Comment on above: Performed By: #### C TIFFANY, SERAFIN #### [facility] [address] [place] [address] Dr. Good Montiel WEST NILE VIRUS AB (IGG AND IGM)on 08-14-2021 West Nile Virus, IgG Negative Normal Negative [facility] Comment on above: Result Comment: No d etectable West Nile Virus IgG Antibody. If a recent infection is suspected, another specimen should be submitted for testing within 7-14 days. Performed By: #### C TIFFANY, SERAFIN #### [facility] [address] [address] [address] Good Montiel West Nile Virus, IgM Negative Normal Negative [facility] Comment on above: Result Comment: No d etectable West Nile Virus IgM Antibody. If a recent infection is suspected, another specimen should be submitted for testing within 7-14 days. Performed By: #### C TIFFANY, SERAFIN #### [facility] [address] [place] [address] Dr. Good Montiel JAY EIA W/REFLEX 5 BIOMARKER Son 08-13-2021 JAY Direct Negative Normal Negative [facility] Comment on above: Performed By: #### A NARF ####[facility] [address] [address]Dr. Good Montiel C-REACTIVE PROTEINS (HS)on 0 08-13-2021 C-Reactive Protein, Cardiac 0.55 mg/L Normal 0.00-3.00 [facility] Comment on above: Result Comment: Rela tive Risk for Future Cardiovascular Event Low <1.00 Average 1.00 - 3.00 High >3.00 Performed By: #### C [facility] ####[facility] [address] [address]Dr. Good Montiel HOMOCYSTEINEon 08-13-2021 Homocyst(e)ine, Plasma 15.3 umol/L Normal 0.0-19.2 [facility] Comment on above: Performed By: #### H TALIBCY #### [facility] [address] [address] [address] Good Montiel IMMUNOFIXATION ELEC, PROTEIN ELECon 08-13-2021 Albumin [Mass/Vol] 3.7 g/dL Normal 2.9-4.4 [facility] Comment on above: Performed By: #### Hakeem MA2 #### [facility] [address] [address] [address] Good Montiel Albumin/Globulin [Mass ratio] 1.1 {ratio} Normal 0.7-1.7 [facility] Comment on above: Performed By: #### Hakeem MA2 #### [facility] [address] [address] [address] Good Montiel Awvna-6-Lgaexjeo 0.2 g/dL Normal 0.0-0.4 [facility] Comment on above: Performed By: #### Hakeem MA2 #### [facility] [address] [address] [address] Good Montiel Ngulv-4-Mtklwqgz 0.9 g/dL Normal 0.4-1.0 [facility] Comment on above: Performed By: #### Hakeem MA2 #### [facility] [address] [address] [address] Good Montiel Beta Globulin 1.2 g/dL Normal 0.7-1.3 [facility] Comment on above: Performed By: #### Hakeem MA2 #### [facility] [address] [place] [address] Dr. Good Montiel Gamma Globulin 1.2 g/dL Normal 0.4-1.8 [facility] Comment on above: Performed By: #### Hakeem MA2 #### [facility] [address] [address] [address] Good Montiel Globulin (S) [Mass/Vol] 3.4 g/dL Normal 2.2-3.9 [facility] Comment on above: Performed By: #### M MA2 #### [facility] [address] [address] [address] Good Montiel Immunofixation Result, Serum Comment: Normal [facility] Comment on above: Result Comment: Pres ence of monoclonal protein is unclear at this time. Suggest repeat in 3 to 6 months if clinically indicated. Performed By: #### M MA2 #### [facility] [address] [address] [address] Good Montiel Immunoglobulin A, Qn, Serum 269 mg/dL Normal 64-422 [facility] Comment on above: Performed By: #### M MA2 #### [facility] [address] [address] [address] Good Montiel Immunoglobulin G, Qn, Serum 1056 mg/dL Normal 586-1602 [facility] Comment on above: Performed By: #### M MA2 #### [facility] [address] [address] [address] Good Montiel Immunoglobulin M, Qn, Serum 201 mg/dL Normal 26-217 [facility] Comment on above: Performed By: #### M MA2 #### [facility] [address] [address] [address] Good Montiel M-Brooks Comment: Normal Not Observed [facility] Comment on above: Result Comment: ASYM METRICAL GAMMA Performed By: #### M MA2 #### [facility] [address] [address] [address] Good Montiel PDF . Normal [facility] Comment on above: Performed By: #### M MA2 #### [facility] [address] [address] [address] Good Montiel Please note: Comment Normal [facility] Comment on above: Result Comment: Prot ein electrophoresis scan will follow via computer, mail, or plater production delivery. Performed By: #### M MA2 #### [facility] [address], [place] [address] Dr. Good Montiel Protein [Mass/Vol] 7.1 g/dL Normal 6.0-8.5 [facility] Comment on above: Performed By: #### M MA2 #### [facility] [address], [place] [address] Dr. Good Montiel LYME DISEASE AB EIA W REFLEX on 08-13-2021 Lyme Total Antibody,EIA Negative Normal Negative [facility] Comment on above: Result Comment: Lyme Antibody Negative No laboratory evidence of infection with B. burgdorferi (Lyme disease). Negative results may occur in patients recently infected (greater than or equal to 14 days) with B. burgdorferi. If recent infection is suspected, repeat testing on a new sample collected in 7 to 14 days is recommended. Performed By: #### L YMA ####[facility] [address] [place], [place] [address]CvDr. Good Montiel RHEUMATOID FACTORon 08-14-19 RA Latex Turbid. 10.1 IU/mL Normal <14.0 [facility] Comment on above: Performed By: #### C TIFFANY, SERAFIN #### [facility] [address], [place] [address] Dr. Good Montiel RPR QUANTon 08-13-2021 Rapid Plasma Reagin, Quant Non-Reactive Normal NonRea<1:1 [facility] Comment on above: Result Comment: Plea se Note: This test does not meet current guidelines for screening and diagnosis of syphilis. This test is intended for following treatment response in patients being treated for syphilis infection. To screen for syphilis infection, a reflex cascade that includes both RPR and a treponema-specific assay should be utilized, such as Treponema pallidum (Syphilis) Screening [place] (698929) or Rapid Plasma Reagin (RPR) Test With Reflex to Quantitative RPR and Confirmatory Treponema pallidum Antibodies (491662). Performed By: #### C TIFFANY, CMADM #### [facility] [address], [place] [address] Dr. Good Montiel FREE T4on 08-12-2021 Free T4 [Mass/Vol] 1.03 ng/dL Normal 0.78-2.19 [facility] Comment on above: Performed By: #### B 12FOL, FT4 ####[facility] [address] [place] [id number]. Good Montiel SED RATE WESTERGRENon 2021 SED RATE 17 mm/hr Normal <=30 [facility] Comment on above: Performed By: #### C MP, CMADM #### [facility] [address] [address] [address] Good Montiel TSHon 08-12-2021 TSH 3.737 uIU/mL Normal 0.470-4.680 [facility] Comment on above: Performed By: #### T SH ####[facility] [address] [place], [place] [address]DrSmooth Montiel TSH RANGE SEE BELOW Normal [facility] Comment on above: Result Comment: <0.3 4 UIU/ml HYPERTHYROID 0.34-5.60 UIU/ml EUTHYROID >5.60 UIU/ml HYPOTHYROID Performed By: #### T SH ####[facility] [address] [place] [id number] Montiel VIT B12 AND FOLATEon 022 Cobalamin (Vitamin B12) [Mass/Vol] 741.0 pg/mL Normal 239.0-931.0 [facility] Comment on above: Performed By: #### B 12FOL, FT4 ####[facility] [address] [id number] Montiel FOLATE >20.00 Normal >=2.76 [facility] Comment on above: Performed By: #### B 12FOL, FT4 ####[facility] [address] [id number]. Good Montiel CBC AUTO DIFFon 06-10-2021 BASO # 0.1 103/ul Normal 0.0-0.1 [facility] Comment on above: Performed By: #### C BC ####[facility] [address] [address]DrSmooth Montiel Basophils/100 WBC (Bld) 0.7 % Normal 0.2-2.0 [facility] Comment on above: Performed By: #### C BC ####[facility] [address] [place] [address]DrSmooth Montiel EO # 0.2 103/ul Normal 0.0-0.7 [facility] Comment on above: Performed By: #### C BC ####[facility] [address] [place], [place] [address]DrSmooth Montiel Eosinophils/100 WBC (Bld) 1.6 % Normal 0.9-7.0 [facility] Comment on above: Performed By: #### C BC ####[facility] [address] [place], [place] [address]Dr. Good Montiel Erythrocyte distribution width (RBC) [Ratio] 18.7 % Critically high 11.0-15.0 [facility] Comment on above: Performed By: #### C BC ####[facility] [address] [place], [place] [address]DrSmooth Montiel Hematocrit (Bld) [Volume fraction] 29.6 % Critically low 36.0-48.0 [facility] Comment on above: Performed By: #### C BC ####[facility] [address] [place], [place] [address]DrSmooth Montiel Hemoglobin (Bld) [Mass/Vol] 9.1 g/dL Critically low 12.0-16.0 [facility] Comment on above: Performed By: #### C BC ####[facility] [address] [place], [place] [address]DrSmooth Montiel IG # 0.06 10e3/ul Critically high 0.00-0.03 [facility] Comment on above: Performed By: #### C BC ####[facility] [address] [place], [place] [address]DrSmooth Montiel IG % 0.6 % Critically high 0.0-0.5 [facility] Comment on above: Performed By: #### C BC ####[facility] [address] [place], [place] [address]DrSmooth Montiel LYMPH # 2.0 103/ul Normal 1.2-3.8 [facility] Comment on above: Performed By: #### C BC ####[facility] [address] [place] [address]DrSmooth Montiel Lymphocytes/100 WBC (Bld) 18.5 % Critically low 20.5-60.0 [facility] Comment on above: Performed By: #### C BC ####[facility] [address] [place], [place] [address]DrSmotoh Montiel MANUAL DIFF REQ NO Normal [facility] Comment on above: Performed By: #### C BC ####[facility] [address] [place] [address]DrSmooth Montiel MCH (RBC) [Entitic mass] 21.8 pg Critically low 26.7-34.0 [facility] Comment on above: Performed By: #### C BC ####[facility] [address] [place], [place] [address]DrSmooth Montiel MCHC (RBC) [Mass/Vol] 30.7 g/dL Normal 29.9-35.2 [facility] Comment on above: Performed By: #### C BC ####[facility] [address] [place], [place] [address]DrSmooth Montiel MCV (RBC) [Entitic vol] 71.0 fL Critically low 81.0-99. 0 [facility] Comment on above: Performed By: #### C BC ####[facility] [address] [place], [place] [address]DrSmooth Montiel MONO # 0.8 103/ul Normal 0.3-0.8 [facility] Comment on above: Performed By: #### C BC ####[facility] [address] [place], [place] [address]DrSmooth Montiel Monocytes/100 WBC (Bld) 7.0 % Normal 1.7-12.0 [facility] Comment on above: Performed By: #### C BC ####[facility] [address] [place], [place] [address]DrSmooth Montiel NEUT # 7.6 103/ul Critically high 1.4-6.5 [facility] Comment on above: Performed By: #### C BC ####[facility] [address] [place] [id number] Montiel Neutrophils/100 WBC (Bld) 71.6 % Normal 43.0-75.0 [facility] Comment on above: Performed By: #### C BC ####[facility] [address] [place] [id number]. Good Montiel Platelet mean volume (Bld) [Entitic vol] 8.4 fL Critically low 9.5-13.5 [facility] Comment on above: Performed By: #### C BC ####[facility] [address] [place] [address]Dr. Good Montiel PLT 442 103/ul Normal 150-450 [facility] Comment on above: Performed By: #### C BC ####[facility] [address] [place] [address]Dr. Good Montiel RBC 4.17 106/ul Critically low 4.20-5.40 [facility] Comment on above: Performed By: #### C BC ####[facility] [address] [place] [id number]. Good Montiel WBC 10.7 103/ul Normal 4.0-11.0 [facility] Comment on above: Performed By: #### C BC ####[facility] [address] [place] [id number]. Good Montiel CRPon 06-10-2021 CRP [Mass/Vol] mg/L Normal <=1.0 The [facility] Comment on above: Performed By: #### M MA2 #### [facility] [address] [place], [place] [address] Dr. Good Montiel ER URINE PROFILEon 2 Bilirubin Ql (U) Negative Normal NEGATIVE [facility] Comment on above: Performed By: #### E RUR ####[facility] [address] [place] [id number]. Good Montiel Clarity (U) CLEAR Normal CLEAR [facility] Comment on above: Performed By: #### E RUR ####[facility] [address] [place], [place] [address]Dr. Good Montiel Color (U) YELLOW Normal YELLOW [facility] Comment on above: Performed By: #### E RUR ####[facility] [address] [place], [place] [address]Dr. Rejoo Montiel ERUAHD A micrscopic examination will be performed if indicated. Normal [facility] Comment on above: Performed By: #### E RUR ####[facility] Fr[address] [place], [place] [address]Dr. Good Dinesh Glucose Ql (U) Negative Normal NEGATIVE The [facility] Comment on above: Performed By: #### E RUR ####[facility] R[address] [place], [place] [address]Dr. Good Dinesh Hemoglobin Ql (U) Negative Normal NEGATIVE [facility] Comment on above: Performed By: #### E RUR ####[facility] [address] [place], [place] [address]Dr. Good Dinesh Ketones Ql (U) Negative Normal NEGATIVE The [facility] Comment on above: Performed By: #### E RUR ####[facility] F[address] [place], [place] [address]Dr. Good Dinesh LEUKOCYTES Negative Normal NEGATIVE [facility] Comment on above: Performed By: #### E RUR ####[facility] [address] [place], [place] [address]Dr. Good Dinesh Nitrite Ql (U) Negative Normal NEGATIVE The [facility] Comment on above: Performed By: #### E RUR ####[facility] [address] [place], [place] [address]Dr. Good Montiel pH (U) 6.5 [pH] Normal 5-9 [facility] Comment on above: Performed By: #### E RUR ####[facility] K[address] [place], [place] [address]Dr. Good Montiel SPEC GRAVITY 1.010 Normal 1.005-<=1.02 5 [facility] Comment on above: Performed By: #### E RUR ####[facility] [address] [place] [address]DrSmooth Montiel UA PROTEIN Negative Normal NEGATIVE/ TRACE [facility] Comment on above: Performed By: #### E RUR ####[facility] [address] [place] [address]DrSmooth Montiel UR MICRO IND NOT INDICATED Normal [facility] Comment on above: Performed By: #### E RUR ####[facility] [address] [place] [address]Dr. Good Montiel Urobilinogen Qn (U) 0.2 {Momo'U}/dL Normal 0.2 - 1. 0 [facility] Comment on above: Performed By: #### E RUR ####[facility] [address] [place], [place] [address]DrSmooth Montiel LACTATE/LACTIC ACIDon 2021 Lactate [Moles/Vol] 1.9 mmol/L Normal 0.7-2.0 [facility] Comment on above: Performed By: #### L ACT ####[facility] [address] [place], [place] [address]Dr. Good Montiel PROF 14(COMP METB)on 022 Albumin [Mass/Vol] 3.0 g/dL Critically low 3.5-5.0 [facility] Comment on above: Performed By: #### Hakeem DU2 #### [facility] [address] [place] [address] Dr. Good Montiel Albumin/Globulin [Mass ratio] 0.9 {ratio} Normal [facility] Comment on above: Performed By: #### Hakeem DU2 #### [facility] [address] [place] [address] Dr. Good Montiel ALP [Catalytic activity/Vol] 36 U/L Critically low 38-126 [facility] Comment on above: Performed By: #### Hakeem RIVERA #### [facility] [address] [place] [address] Dr. Good Montiel ALT [Catalytic activity/Vol] 26 U/L Normal 9-52 [facility] Comment on above: Performed By: #### M MA2 #### [facility] [address] [place] [address] [address] Good Montiel Anion gap [Moles/Vol] 12.2 mmol/L Normal Th [facility] Comment on above: Performed By: #### Hakeem DU2 #### [facility] [address] [place] [address] [address] Good Montiel AST [Catalytic activity/Vol] 23 U/L Normal 14-36 [facility] Comment on above: Performed By: #### Hakeem DU2 #### [facility] [address] [place] [address] Dr. Good Montiel Bilirubin [Mass/Vol] 0.4 mg/dL Normal 0.2-1.3 [facility] Comment on above: Performed By: #### Hakeem DU2 #### [facility] [address] [address] [address] Good Montiel Calcium [Mass/Vol] 8.5 mg/dL Normal 8.4-10.2 [facility] Comment on above: Performed By: #### Hakeem DU2 #### [facility] [address] [place] [address] Dr. Good Montiel Chloride [Moles/Vol] 93 mmol/L Critically low 98-107 [facility] Comment on above: Performed By: #### Hakeem DU2 #### [facility] [address] [place] [address] [address] Good Montiel CO2 [Moles/Vol] 27.6 mmol/L Normal 22.0-30.0 [facility] Comment on above: Performed By: #### Hakeem DU2 #### [facility] [address] [place] [address] [address] Good Montiel Creatinine [Mass/Vol] 0.78 mg/dL Normal 0.52-1.04 [facility] Comment on above: Performed By: #### Hakeem DU2 #### [facility] [address] [place] [address] Dr. Good Montiel EGFR-AF CYPRIOT >60 Normal >=60 [facility] Comment on above: Performed By: #### M MA2 #### [facility] [address] [address] [address] Good Montiel EGFR-NON AF CYPRIOT >60 Normal >=60 [facility] Comment on above: Performed By: #### M MA2 #### [facility] [address] [place] [address] [address] Good Montiel Globulin (S) [Mass/Vol] 3.2 g/dL Normal [facility] Comment on above: Performed By: #### M MA2 #### [facility] [address] [place] [address] [address] Good Montiel Glucose [Mass/Vol] 111 mg/dL Critically high 74-106 [facility] Comment on above: Performed By: #### M MA2 #### [facility] [address] [place] [address] [address] Good Montiel Potassium [Moles/Vol] 3.8 mmol/L Normal 3.4-5.0 [facility] Comment on above: Performed By: #### M MA2 #### [facility] [address] [place] [address] [address] Good Montiel Protein [Mass/Vol] 6.2 g/dL Normal 6.1-8.2 [facility] Comment on above: Performed By: #### M MA2 #### [facility] [address] [place] [address] [address] Good Montiel Sodium [Moles/Vol] 129 mmol/L Critically low 137-145 [facility] Comment on above: Performed By: #### M MA2 #### [facility] [address] [place] [address] [address] Good Montiel Urea nitrogen [Mass/Vol] 17.0 mg/dL Normal 7.0-17.0 [facility] Comment on above: Performed By: #### M MA2 #### [facility] [address] [place] [address] [address] Good Montiel Urea nitrogen/Creatinine [Mass ratio] 21.8 mg/mg Normal [facility] Comment on above: Performed By: #### Hakeem DU2 #### [facility] [address] [place] [address] Dr. Good Montiel TROPONIN, HIGH SENSITIVITYon 06-10-2021 HSTROP 9.8 pg/mL Normal 4.0-35.5 [facility] Comment on above: Result Comment: CUT- OFF POINTS HAVE BEEN ESTABLISHED BASED ON THE FOURTH UNIVERSAL DEFINITIONS OF MYOCARDIAL INFARCTION. THE UPPER REFERENCE LIMIT (URL) OF TROPONIN, DEFINED THE 99TH PERCENTILE OF cTnI DISTRIBUTION IN A REFERENCE POPULATION, HAS BEEN CONFIRMED THE DECISION THRESHOLD FOR [place] DIAGNOSIS. Performed By: #### Hakeem DU2 #### [facility] [address] [place] [address] Dr. Good Montiel TSHon 06-10-2021 TSH 7.927 uIU/mL Critically high 0.470-4.680 [facility] Comment on above: Performed By: #### Hakeem DU2 #### [facility] [address] [place] [address] Dr. Good Montiel TSH RANGE SEE BELOW Normal [facility] Comment on above: Result Comment: <0.3 4 UIU/ml HYPERTHYROID 0.34-5.60 UIU/ml EUTHYROID >5.60 UIU/ml HYPOTHYROID Performed By: #### Hakeem RIVERA #### [facility] [address] [place] [address] Dr. Good Montiel CBC AUTO DIFFon 06-06-2021 BASO # 0.1 103/ul Normal 0.0-0.1 [facility] Comment on above: Performed By: #### C TIFFANY, SERAFIN #### [facility] [address] [place] [address] Dr. Good Montiel Basophils/100 WBC (Bld) 0.7 % Normal 0.2-2.0 [facility] Comment on above: Performed By: #### C TIFFANY, DOUGLASDM #### [facility] [address] [place] [address] Dr. Good Montiel EO # 0.2 103/ul Normal 0.0-0.7 [facility] Comment on above: Performed By: #### C MP, CMADM #### [facility] [address] [place] [address] Dr. Good Montiel Eosinophils/100 WBC (Bld) 2.5 % Normal 0.9-7.0 [facility] Comment on above: Performed By: #### C TIFFANY, CMADM #### [facility] [address] [place] [address] Dr. Good Montiel Erythrocyte distribution width (RBC) [Ratio] 18.5 % Critically high 11.0-15.0 [facility] Comment on above: Performed By: #### C TIFFANY, CMADM #### [facility] [address] [place] [address] Dr. Good Montiel Hematocrit (Bld) [Volume fraction] 30.1 % Critically low 36.0-48.0 [facility] Comment on above: Performed By: #### C TIFFANY, CMADM #### [facility] [address] [place] [address] Dr. Good Montiel Hemoglobin (Bld) [Mass/Vol] 9.3 g/dL Critically low 12.0-16.0 [facility] Comment on above: Performed By: #### C TIFFANY, CMADM #### [facility] [address] [place] [address] Dr. Good Montiel IG # 0.06 10e3/ul Critically high 0.00-0.03 [facility] Comment on above: Performed By: #### C TIFFANY, CMADM #### [facility] [address] [place] [address] Dr. Good Montiel IG % 0.7 % Critically high 0.0-0.5 [facility] Comment on above: Performed By: #### C TIFFANY, CMADM #### [facility] [address] [place] [address] Dr. Good Montiel LYMPH # 2.0 103/ul Normal 1.2-3.8 [facility] Comment on above: Performed By: #### C TIFFANY, CMADM #### [facility] [address] [place] [address] Dr. Good Montiel Lymphocytes/100 WBC (Bld) 23.0 % Normal 20.5-60.0 [facility] Comment on above: Performed By: #### C TIFFANY, CMADM #### [facility] [address] [place] [address] Dr. Good Montiel MANUAL DIFF REQ NO Normal [facility] Comment on above: Performed By: #### C TIFFANY, CMADM #### [facility] [address] [place] [address] Dr. Good Montiel MCH (RBC) [Entitic mass] 21.9 pg Critically low 26.7-34.0 [facility] Comment on above: Performed By: #### C TIFFANY, CMADM #### [facility] [address] [place] [address] Dr. Good Montiel MCHC (RBC) [Mass/Vol] 30.9 g/dL Normal 29.9-35.2 [facility] Comment on above: Performed By: #### C TIFFANY CMADM #### [facility] [address] [place] [address] Dr. Good Montiel MCV (RBC) [Entitic vol] 70.8 fL Critically low 81.0-99. 0 [facility] Comment on above: Performed By: #### C DOUGLAS ALLENDM #### [facility] [address] [place] [address] Dr. Good Montiel MONO # 1.0 103/ul Critically high 0.3-0.8 [facility] Comment on above: Performed By: #### C TIFFANY, DOUGLASDM #### [facility] [address] [place] [address] Dr. Good Montiel Monocytes/100 WBC (Bld) 11.3 % Normal 1.7-12.0 [facility] Comment on above: Performed By: #### C TIFFANY, DOUGLASDM #### [facility] [address] [place] [address] Dr. Good Montiel NEUT # 5.2 103/ul Normal 1.4-6.5 [facility] Comment on above: Performed By: #### C TIFFANY, DOUGLASDM #### [facility] [address] [place], [place] [id number] Dr. Good Montiel Neutrophils/100 WBC (Bld) 61.8 % Normal 43.0-75.0 [facility] Comment on above: Performed By: #### C TIFFANY, SERAFIN #### [facility] [address] [place] [address] Dr. Good Montiel Platelet mean volume (Bld) [Entitic vol] 8.5 fL Critically low 9.5-13.5 [facility] Comment on above: Performed By: #### C TIFFANY, DOUGLASDM #### [facility] [address] [place] [address] Dr. Good Montiel PLT 455 103/ul Critically high 150-450 [facility] Comment on above: Performed By: #### C TIFFANY, DOUGLASDM #### [facility] [address] [place] [address] Dr. Good Montiel RBC 4.25 106/ul Normal 4.20-5.40 [facility] Comment on above: Performed By: #### C TIFFANY, DOUGLASDM #### [facility] [address] [place] [address] Dr. Good Montiel WBC 8.5 103/ul Normal 4.0-11.0 [facility] Comment on above: Performed By: #### C TIFFANY, DOUGLASDM #### [facility] [address] [place] [address] Dr. Good Montiel POINT OF CARE GLUCOSEon 05-17 Glucose [Mass/Vol] 164 mg/dL Critically high 74-106 [facility] Comment on above: Performed By: #### C TIFFANY, DOUGLASDM #### [facility] [address] [place] [address] Dr. Good Montiel PROF 14(COMP METB)on 022 Albumin [Mass/Vol] 3.2 g/dL Critically low 3.5-5.0 [facility] Comment on above: Performed By: #### M MA2 #### [facility] [address] [place] [address] Dr. Good Montiel Albumin/Globulin [Mass ratio] 1.1 {ratio} Normal [facility] Comment on above: Performed By: #### M MA2 #### [facility] [address] [place] [address] [address] Good Montiel ALP [Catalytic activity/Vol] 37 U/L Critically low 38-126 [facility] Comment on above: Performed By: #### M MA2 #### [facility] [address] [place] [address] [address] Good Montiel ALT [Catalytic activity/Vol] 26 U/L Normal 9-52 [facility] Comment on above: Performed By: #### M MA2 #### [facility] [address] [place] [address] [address] Good Montiel Anion gap [Moles/Vol] 11.5 mmol/L Normal Th e [facility] Comment on above: Performed By: #### M MA2 #### [facility] [address] [place] [address] Dr. Good Montiel AST [Catalytic activity/Vol] 25 U/L Normal 14-36 [facility] Comment on above: Performed By: #### M MA2 #### [facility] [address] [place] [address] [address] Good Montiel Bilirubin [Mass/Vol] 0.4 mg/dL Normal 0.2-1.3 [facility] Comment on above: Performed By: #### M MA2 #### [facility] [address] [place] [address] [address] Good Montiel Calcium [Mass/Vol] 8.8 mg/dL Normal 8.4-10.2 [facility] Comment on above: Performed By: #### M MA2 #### [facility] [address] [place] [address] [address] Good Montiel Chloride [Moles/Vol] 93 mmol/L Critically low 98-107 [facility] Comment on above: Performed By: #### M MA2 #### [facility] [address] [place] [address] [address] Good Montiel CO2 [Moles/Vol] 28.2 mmol/L Normal 22.0-30.0 [facility] Comment on above: Performed By: #### M MA2 #### [facility] [address] [place] [address] [address] Good Montiel Creatinine [Mass/Vol] 0.57 mg/dL Normal 0.52-1.04 [facility] Comment on above: Performed By: #### M MA2 #### [facility] [address] [place] [address] [address] Good Montiel EGFR-AF CYPRIOT >60 Normal >=60 [facility] Comment on above: Performed By: #### M MA2 #### [facility] [address] [place] [address] [address] Good Montiel EGFR-NON AF CYPRIOT >60 Normal >=60 [facility] Comment on above: Performed By: #### M MA2 #### [facility] [address] [place] [address] Dr. Good Montiel Globulin (S) [Mass/Vol] 3.0 g/dL Normal [facility] Comment on above: Performed By: #### M MA2 #### [facility] [address] [place] [address] Dr. Good Montiel Glucose [Mass/Vol] 106 mg/dL Normal 74-106 [facility] Comment on above: Performed By: #### M MA2 #### [facility] [address] [place] [address] Dr. Good Montiel Potassium [Moles/Vol] 3.7 mmol/L Normal 3.4-5.0 [facility] Comment on above: Performed By: #### M MA2 #### [facility] [address] [place] [address] [address] Good Montiel Protein [Mass/Vol] 6.2 g/dL Normal 6.1-8.2 [facility] Comment on above: Performed By: #### M MA2 #### [facility] [address] [place] [address] Dr. Good Montiel Sodium [Moles/Vol] 129 mmol/L Critically low 137-145 [facility] Comment on above: Performed By: #### M MA2 #### [facility] [address] [place] [address] [address] Good Montiel Urea nitrogen [Mass/Vol] 14.0 mg/dL Normal 7.0-17.0 [facility] Comment on above: Performed By: #### M ANA LAURA2 #### [facility] [address] [place] [address] Dr. Good Montiel Urea nitrogen/Creatinine [Mass ratio] 24.6 mg/mg Normal [facility] Comment on above: Performed By: #### M MA2 #### [facility] [address] [place] [address] Dr. Good Montiel CARDIAC LOGAN ADMITon 022 CK [Catalytic activity/Vol] 55 U/L Normal 30-135 [facility] Comment on above: Performed By: #### C TIFFANY, SERAFIN #### [facility] [address] [place] [address] Dr. Good Montiel CK.MB [Mass/Vol] 2.09 ng/mL Normal <=2.37 [facility] Comment on above: Performed By: #### C TIFFANY, DOUGLASDM #### [facility] [address] [place] [address] Dr. Good Montiel HSTROP 10.2 pg/mL Normal 4.0-35.5 [facility] Comment on above: Result Comment: CUT- OFF POINTS HAVE BEEN ESTABLISHED BASED ON THE FOURTH UNIVERSAL DEFINITIONS OF MYOCARDIAL INFARCTION. THE UPPER REFERENCE LIMIT (URL) OF TROPONIN, DEFINED THE 99TH PERCENTILE OF cTnI DISTRIBUTION IN A REFERENCE POPULATION, HAS BEEN CONFIRMED THE DECISION THRESHOLD FOR [place] DIAGNOSIS. Performed By: #### C TIFFANY, SERAFIN #### [facility] [address] [place] [address] Dr. Good Montiel CLIF 61.0 ng/mL Normal <=61.5 [facility] Comment on above: Performed By: #### C TIFFANY, DOUGLASDM #### [facility] [address] [place] [address] Dr. Good Montiel CBC AUTO DIFFon 06-05-2021 BASO # 0.1 103/ul Normal 0.0-0.1 [facility] Comment on above: Performed By: #### C BC ####[facility] [address] [place] [id number]. Good Montiel Basophils/100 WBC (Bld) 0.8 % Normal 0.2-2.0 [facility] Comment on above: Performed By: #### C BC ####[facility] [address] [place] [id number]. Good Montiel EO # 0.2 103/ul Normal 0.0-0.7 [facility] Comment on above: Performed By: #### C BC ####[facility] [address] [place], [place] [address]Dr. Good Montiel Eosinophils/100 WBC (Bld) 2.2 % Normal 0.9-7.0 [facility] Comment on above: Performed By: #### C BC ####[facility] [address] [place], [place] [address]Dr. Good Montiel Erythrocyte distribution width (RBC) [Ratio] 18.2 % Critically high 11.0-15.0 [facility] Comment on above: Performed By: #### C BC ####[facility] [address] [place] [address]Dr. Good Montiel Hematocrit (Bld) [Volume fraction] 31.1 % Critically low 36.0-48.0 [facility] Comment on above: Performed By: #### C BC ####[facility] [address] [place] [id number]. Good Montiel Hemoglobin (Bld) [Mass/Vol] 9.6 g/dL Critically low 12.0-16.0 [facility] Comment on above: Performed By: #### C BC ####[facility] [address] [place] [id number]. Good Montiel IG # 0.07 10e3/ul Critically high 0.00-0.03 [facility] Comment on above: Performed By: #### C BC ####[facility] [address] [place], [place] [id number]. Good Montiel IG % 0.9 % Critically high 0.0-0.5 [facility] Comment on above: Performed By: #### C BC ####[facility] [address] [place] [id number]. Rejoo Dinesh LYMPH # 1.3 103/ul Normal 1.2-3.8 [facility] Comment on above: Performed By: #### C BC ####[facility] [address] [place] [id number]. Good Montiel Lymphocytes/100 WBC (Bld) 17.2 % Critically low 20.5-60.0 [facility] Comment on above: Performed By: #### C BC ####[facility] [address] [place] [id number]. Good Montiel MANUAL DIFF REQ NO Normal [facility] Comment on above: Performed By: #### C BC ####[facility] [address] [place] [id number]. Good Montiel MCH (RBC) [Entitic mass] 21.8 pg Critically low 26.7-34.0 [facility] Comment on above: Performed By: #### C BC ####[facility] [address] [place] [id number]. Good Montiel MCHC (RBC) [Mass/Vol] 30.9 g/dL Normal 29.9-35.2 [facility] Comment on above: Performed By: #### C BC ####[facility] [address] [place] [id number]. Good Montiel MCV (RBC) [Entitic vol] 70.5 fL Critically low 81.0-99. 0 [facility] Comment on above: Performed By: #### C BC ####[facility] [address] [place] [id number]. Good Montiel MONO # 0.6 103/ul Normal 0.3-0.8 [facility] Comment on above: Performed By: #### C BC ####[facility] [address] [place] [id number]. Good Montiel Monocytes/100 WBC (Bld) 8.3 % Normal 1.7-12.0 [facility] Comment on above: Performed By: #### C BC ####[facility] [address] [place], [place] [address]Af. Good Montiel NEUT # 5.3 103/ul Normal 1.4-6.5 [facility] Comment on above: Performed By: #### C BC ####[facility] [address] [place], [place] [address]An. Good Montiel Neutrophils/100 WBC (Bld) 70.6 % Normal 43.0-75.0 [facility] Comment on above: Performed By: #### C BC ####[facility] [address] [place], [place] [address]Vf. Good Montiel Platelet mean volume (Bld) [Entitic vol] 8.3 fL Critically low 9.5-13.5 [facility] Comment on above: Performed By: #### C BC ####[facility] [address] [place] [id number]. Good Montiel PLT 463 103/ul Critically high 150-450 [facility] Comment on above: Performed By: #### C BC ####[facility] [address] [place], [place] [address]Qf. Good Montiel RBC 4.41 106/ul Normal 4.20-5.40 [facility] Comment on above: Performed By: #### C BC ####[facility] [address] [place] [id number]. Good Montiel WBC 7.6 103/ul Normal 4.0-11.0 [facility] Comment on above: Performed By: #### C BC ####[facility] [address] [place] [id number]. Good Montiel CT STROKE HEAD WOon 06-05-19 CT STROKE HEAD WO EXAMINATION: CT STROKE HEAD WO, 06/05/2021 8:50 AM EST HISTORY: Dizziness COMPARISON: None. TECHNIQUE: CT scan of the head was performed without IV contrast. CT dose reduction technique was used, including Automated Exposure Control. FINDINGS: BRAIN: No edema, hemorrhage, mass, acute infarction, or inappropriate atrophy. Decreased attenuation within the periventricular deep white matter of the frontal lobes favoring chronic small vessel ischemic changes. CSF SPACES: No hydrocephalus, subarachnoid hemorrhage, or mass. Appropriate for age. SKULL: No fracture, mass, or other significant visible lesion. SINUSES: Large mucocele/retention cyst within right maxillary sinus and minimal mucosal thickening. ORBITS: No appreciable abnormality on the limited views. OTHER: Negative IMPRESSION: 1. No intracranial hemorrhage or appreciable acute abnormality. 2. Age consistent mild atrophy and chronic small vessel ischemic changes. 3. Mild chronic sinusitis. Findings called to the emergency department to be relayed to Dr. Garcia. Electronically authenticated by: GINGER BROOKS Date: 2021-06-05 10:30 Normal [facility] Covid-19 PCR (CVDTBH)on 05-17 SARS-CoV-2 (COVID-19) RNA FELECIA+probe Ql (Unsp spec) Not detected Normal NOT DETECTED [facility] Comment on above: Result Comment: When diagnostic testing is negative, the possibility of a false negative should be considered in the context of a patient's recent exposures and the presence of clinical signs and symptoms consistent with SARS-CoV-2. This test is not yet approved or cleared by the [place] FDA. When there are no FDA-approved or cleared tests available, and other criteria are met, FDA can make tests available under an emergency access mechanism called an Emergency Use Authorization (EUA). The EUA for this test is supported by the Marketing Services Coordinator of Health and Human Service's declaration that circumstances exist to justify the emergency use of in vitro diagnostics for the detection and/or diagnosis of the virus that causes COVID-19. This EUA will remain in effect for the duration of the COVID-19 declaration justifying emergency of IVDs, unless it is terminated or revoked by the FDA (after which the test may no longer be used). Performed By: #### C [facility] #### [facility] [address] [address] [address] Good Montiel ECHOCARDIO M/2D COMPLETEon 0 06-05-2021 ECHOCARDIO M/2D COMPLETE Patient: NUVIA ABRAHAM Exam Date: 06/05/2021 : 1945 Gender:F Ordering : DR. RHIANNON OLSON . Admission #: [id number] Family : DR WILY PRADO M.D. Order #: [id number] CLICK HERE TO VIEW EXAM ECHOCARDIOGRAM REPORT PROCEDURE: CARDIO PULMONARY ECHOCARDIO M/2D COMP INDICATIONS: CVA symptoms, hypertension, smoker COMPARISON: None. DESCRIPTION: COMPLETE ECHOCARDIOGRAM Real-time transthoracic echocardiography with 2D, M-mode, spectral and color flow Doppler performed. QUALITY: Technical quality was good. LEFT VENTRICLE: Normal chamber size. Thickened septal wall. No regional wall motion abnormalities. LV EF: Normal left ventricular ejection fraction, (>55%). DIASTOLIC: Grade II diastolic dysfunction. ATRIAL SEPTUM: Agitated saline contrast does not reveal an intra-cardiac shunt. LEFT ATRIUM: Mild dilatation. RIGHT ATRIUM: Normal chamber size. RIGHT VENTRICLE: Normal chamber size. Normal systolic function. TRICUSPID VALVE: Normal mobility and thickness. No stenosis with mild to moderate regurgitation. Doppler studies reveal moderately (45-60) elevated right sided pressures. RVSP 50 mmHg MITRAL VALVE: Normal mobility and thickness. No evidence of mitral valve stenosis. There is no mitral annular calcification. Mild to moderate mitral regurgitation. AORTIC VALVE: Normal trileaflet appearance. Mildly calcified aortic valve. Normal leaflet mobility. No evidence of aortic valve stenosis. No aortic regurgitation. AORTIC ROOT: Normal diameter and appearance. Ascending aorta and aortic arch are normal in size. PULMONIC VALVE: Not well visualized. No stenosis. No regurgitation. PERICARDIUM: No evidence of pericardial effusion. IVC: Collapses with inspirations. IVC is normal in size. CONCLUSION: Global left ventricular systolic function is normal; visually estimated ejection fraction is 55-60%. No significant wall motion abnormalities. Grade 2, moderate diastolic dysfunction. The left atrium is mildly dilated. The right ventricle is normal in size and systolic function. Mild to moderate tricuspid and mitral regurgitation. Moderately elevated right-sided pressures. Agitated saline contrast does not reveal an intracardiac shunt. Adult Echocardiography Procedure Report Left Ventricle LVEDD (3.7 - 5.6 cm): 5.11 cm LVESD (2.2 - 4.0 cm): 3.80 cm LVIVS thickness (0.6 - 1.2 cm): 1.43 cm LVPW thickness (0.5 - 1.0 cm): 8.54 mm e': 6.77 cm/s E - e': 14.80 LVOT Area (cm2): 3.14 cm2 LVOT Diameter 2.00 cm Left Atrium LA Volume Index (2D A2C): 39.70 ml/m2 Left Atrium Systolic Dimension: 4.00 cm Left Atrium Systolic Area(A2C): 21.50 cm2 Left Atrium Systolic Area(A4C): 18.50 cm2 Left Atrium Systolic Volume(A2C): 98398 mm3 Left Atrium Systolic Volume(A4C): 03444 mm3 Mitral Valve MV E to A Ratio: 1.10 Mitral Valve A-Wave Peak Velocity: 91.30 cm/s Mitral Valve E-Wave Peak Velocity: 100.00 cm/s Deceleration Time: 185 ms Right Ventricle Aorta AO Root Diam: 3.40 cm Aortic Valve Peak Velocity (Antegrade Flow): 117.00 cm/s AoV Area (Peak Angelito): 1.91 cm2 Peak Velocity(Antegrade Flow): 123.00 cm/s Peak Gradient(Antegrade Flow): 6 mm[Hg] Tricuspid Valve Peak Velocity (Regurgitant Flow): 331.00 cm/s Pulmonic Valve Peak Velocity: 97.70 cm/s Peak Gradient: 4 mm[Hg] Right Atrium Dictated by: Josafat Ramírez M.D. on 06/08/2021 at 14:15 Approved by: Josafat Ramírez M.D. on 06/08/2021 at 14:19 Normal [facility] GLYCOHEMOGLOBIN A1Con 2021 ADA RECOMMENDATION ADA THERAPEUTIC TARGET 6.0 - 7.0 ACTION SUGGESTED > 7.0 Normal [facility] Comment on above: Performed By: #### M MA2 #### [facility] [address] [address] [address] Good Montiel Glucose [Mass/Vol] 131 mg/dL Normal [facility] Comment on above: Performed By: #### M MA2 #### [facility] [address] [address] [address] Good Montiel HbA1c (Bld) [Mass fraction] 6.2 % Critically high <=6.0 [facility] Comment on above: Performed By: #### M MA2 #### [facility] [address] [place], [place] [address] Dr. Good Montiel LIPID PROFILEon 06-05-2021 CHOL-HDL RATIO NORM SEE BELOW Normal [facility] Comment on above: Result Comment: 3.3 - 4.4 LOW RISK 4.4 - 7.1 AVERAGE RISK 7.1 - 11.0 MODERATE RISK >11.0 HIGH RISK Performed By: #### C SERAFIN ALLEN #### [facility] [address] [address] [address] Good Montiel Cholesterol [Mass/Vol] 157 mg/dL Normal <=200 [facility] Comment on above: Performed By: #### C TIFFANY, DOUGLASDM #### [facility] [address] [address] [address] Good Montiel Cholesterol in HDL [Mass/Vol] 44 mg/dL Normal [facility] Comment on above: Performed By: #### C TIFFANY, SERAFIN #### [facility] [address] [address] [address] Good Montiel Cholesterol in LDL [Mass/Vol] 80.0 mg/dL Normal [facility] Comment on above: Performed By: #### C SERAFIN ALLEN #### [facility] [address] [address] [address] Good Montiel Cholesterol.total/Rocío sterol in HDL [Mass ratio] 3.6 {ratio} Normal [facility] Comment on above: Performed By: #### C SERAFIN ALLEN #### [facility] [address] [address] [address] Good Montiel HDL NORMAL > or = 60 mg/dl - LOW CARDIOVASCULAR RISK <40 mg/dl - HIGH CARDIOVASCULAR RISK Normal [facility] Comment on above: Performed By: #### C SERAFIN ALLEN #### [facility] [address] [address] [address] Good Montiel LDL CALC NORMAL SEE BELOW Normal [facility] Comment on above: Result Comment: <100 mg/dl OPTIMAL 100 - 129 mg/dl NEAR OR ABOVE OPTIMAL 130 - 159 mg/dl BORDERLINE HIGH 160 - 189 mg/dl HIGH >190 mg/dl VERY HIGH Performed By: #### C SERAFIN ALLEN #### [facility] [address] [address] [address] Good Montiel Triglyceride [Mass/Vol] 165 mg/dL Critically high <=150 [facility] Comment on above: Performed By: #### C SERAFIN ALLEN #### [facility] [address] [address] [address] Good Montiel VLDL CALC 33.0 mg/dL Normal [facility] Comment on above: Performed By: #### C SERAFIN ALLEN #### [facility] [address] [id number] Good Montiel MRI BRAIN WO CONon 2 MRI BRAIN WO CON EXAM: MRI BRAIN WO CON HISTORY: Transient cerebral ischemia left arm numbness. COMPARISON: CT brain 06/05/2021. TECHNIQUE: Multiplanar, multisequence MRI images of the brain were obtained without contrast including the following: Axial diffusion, axial T2, axial flair, axial GRE, and sagittal T1-weighted images of the brain. FINDINGS: There is a mild degree of scattered foci of periventricular and subcortical white matter T2/FLAIR hyperintensity that are nonspecific and likely due to chronic microangiopathic change. There is no acute intracranial hemorrhage, extra-axial fluid collection, midline shift, or mass effect. There is no acute infarction. There is no abnormal intracranial susceptibility. The ventricles, sulci, and cisterns are age-appropriate in size and configuration without hydrocephalus or herniation. Flow voids are seen in the major intracranial vessels suggesting their patency. The orbits appear normal. There is a mucous retention cysts within the right maxillary sinus with mild mucosal thickening. The bones and extracranial soft tissues are unremarkable. IMPRESSION: 1. No acute intracranial process. No acute intracranial hemorrhage, mass, extra-axial fluid collection, or acute infarction. 2. Mild degree of white matter T2 hyperintensity is nonspecific although likely due to chronic microangiopathic change. Electronically authenticated by: ALFONSO ALTMAN Date: 2021-06-05 15:08 Normal [facility] POINT OF CARE GLUCOSEon 05-17 Glucose [Mass/Vol] 119 mg/dL Critically high 74-106 [facility] Comment on above: Performed By: #### P OCGLUC ####[facility] [address] [place], [place] [address]TrDr. Godo Montiel Glucose [Mass/Vol] 169 mg/dL Critically high 74-106 [facility] Comment on above: Performed By: #### P OCGLUC ####[facility] [address] [place], [place] [address]Dr. Good Montiel Glucose [Mass/Vol] 119 mg/dL Critically high 74-106 [facility] Comment on above: Performed By: #### P OCGLUC ####[facility] [address] [place], [place] [address]QyDr. Good Montiel PROF 14(COMP METB)on 022 Albumin [Mass/Vol] 3.3 g/dL Critically low 3.5-5.0 [facility] Comment on above: Performed By: #### C TIFFANY, CMADM #### [facility] [address] [address] [address] Good Montiel Albumin/Globulin [Mass ratio] 1.0 {ratio} Normal [facility] Comment on above: Performed By: #### C TIFFANY, CMADM #### [facility] [address] [address] [address] Good Montiel ALP [Catalytic activity/Vol] 40 U/L Normal 38-126 [facility] Comment on above: Performed By: #### C TIFFANY, CMADM #### [facility] [address] [address] [address] Good Montiel ALT [Catalytic activity/Vol] 23 U/L Normal 9-52 [facility] Comment on above: Performed By: #### C TIFFANY, CMADM #### [facility] [address] [address] [address] Good Montiel Anion gap [Moles/Vol] 11.3 mmol/L Normal [facility] Comment on above: Performed By: #### C TIFFANY, CMADM #### [facility] [address] [address] [address] Good Montiel AST [Catalytic activity/Vol] 20 U/L Normal 14-36 [facility] Comment on above: Performed By: #### C MP, CMADM #### [facility] [address] [address] [address] Good Montiel Bilirubin [Mass/Vol] 0.6 mg/dL Normal 0.2-1.3 [facility] Comment on above: Performed By: #### C MP, CMADM #### [facility] [address] [address] [address] Good Montiel Calcium [Mass/Vol] 8.5 mg/dL Normal 8.4-10.2 [facility] Comment on above: Performed By: #### C MP, CMADM #### [facility] [address] [address] [address] Good Montiel Chloride [Moles/Vol] 90 mmol/L Critically low 98-107 [facility] Comment on above: Performed By: #### C MP, CMADM #### [facility] [address] [address] [address] Good Montiel CO2 [Moles/Vol] 28.5 mmol/L Normal 22.0-30.0 [facility] Comment on above: Performed By: #### C MP, CMADM #### [facility] [address] [address] [address] Good Montiel Creatinine [Mass/Vol] 0.89 mg/dL Normal 0.52-1.04 [facility] Comment on above: Performed By: #### C TIFFANY, CMADM #### [facility] [address] [place] [address] Dr. Good Montiel EGFR-AF CYPRIOT >60 Normal >=60 [facility] Comment on above: Performed By: #### C TIFFANY, CMADM #### [facility] [address] [address] [address] Good Montiel EGFR-NON AF CYPRIOT >60 Normal >=60 [facility] Comment on above: Performed By: #### C MP, CMADM #### [facility] [address] [address] [address] Good Montiel Globulin (S) [Mass/Vol] 3.3 g/dL Normal [facility] Comment on above: Performed By: #### C MP, CMADM #### [facility] [address] [address] [address] Good Montiel Glucose [Mass/Vol] 128 mg/dL Critically high 74-106 [facility] Comment on above: Performed By: #### C TIFFANY, CMADM #### [facility] [address] [address] [address] Good Montiel Potassium [Moles/Vol] 3.8 mmol/L Normal 3.4-5.0 [facility] Comment on above: Performed By: #### C TIFFANY, CMADM #### [facility] [address] [place] [address] Dr. Good Montiel Protein [Mass/Vol] 6.6 g/dL Normal 6.1-8.2 [facility] Comment on above: Performed By: #### C TIFFANY, DOUGLASDM #### [facility] [address] [place] [address] Dr. Good Montiel Sodium [Moles/Vol] 126 mmol/L Critically low 137-145 [facility] Comment on above: Performed By: #### C TIFFANY, DOUGLASDM #### [facility] [address] [place] [address] Dr. Good Montiel Urea nitrogen [Mass/Vol] 16.0 mg/dL Normal 7.0-17.0 [facility] Comment on above: Performed By: #### C TIFFANY, DOUGLASDM #### [facility] [address] [place] [address] Dr. Good Montiel Urea nitrogen/Creatinine [Mass ratio] 18.0 mg/mg Normal [facility] Comment on above: Performed By: #### C TIFFANY, DOUGLASDM #### [facility] [address] [place] [address] Dr. Good Montiel US CAROTID ART BILon 022 US CAROTID ART [place]TE EXAMINATION: US CAROTID ART [place] HISTORY: Transient cerebral ischemia COMPARISON: Ultrasound carotid artery bilateral 11/08/2019 TECHNIQUE: Duplex Doppler ultrasound analysis of carotid and vertebral arteries. . Bilateral carotid arterial duplex examination was performed using B-mode, color flow and spectral analysis. Carotid stenosis is reported according to validated velocity parameters, similar to NASCET criteria. FINDINGS: RIGHT CAROTID ARTERY: Endovascular stent within the internal carotid artery. Mild plaque without significant stenosis. RIGHT VERTEBRAL: Antegrade flow. Subclavian: PSV: 116.2 cm/s EDV: 11.5 cm/s CCA: Prox: PSV: 72.9 cm/s EDV: 7.5 cm/s Mid: PSV: 49.4 cm/s EDV: 11.0 cm/s Distal: PSV: 67.7 cm/s EDV: 11.9 cm/s BULB: PSV: 61.6 cm/s EDV: 9.2 cm/s ICA: Prox: PSV: 80.9 cm/s EDV: 18.2 cm/s Mid: PSV: 171.0 cm/s EDV: 33.9 cm/s Distal: PSV: 161.7 cm/s EDV: 29.3 cm/s ECA: PSV: 152.9 cm/s EDV: 5.1 cm/s VERTEBRAL: PSV: 72.9 cm/s EDV: 10.1 cm/s ICA/CCA ratio: PSV: 2.5 EDV: 2.9 LEFT CAROTID ARTERY: Mild plaque without significant stenosis. Suspect prior endarterectomy with clearing of previously seen plaque. LEFT VERTEBRAL: Antegrade flow. Subclavian: PSV: 119.4 cm/s EDV: 11.5 cm/s CCA: Prox: PSV: 59.0 cm/s EDV: 7.5 cm/s Mid: PSV: 66.0 cm/s EDV: 11.9 cm/s Distal: PSV: 58.1 cm/s EDV: 8.4 cm/s BULB: PSV: 62.5 cm/s EDV: 8.4 cm/s ICA: Prox: PSV: 60.0 cm/s EDV: 10.6 cm/s Mid: PSV: 122.4 cm/s EDV: 26.7 cm/s Distal: PSV: 126.3 cm/s EDV: 25.4 cm/s ECA: PSV: 161.3 cm/s EDV: 0.0 cm/s VERTEBRAL: PSV: 61.4 cm/s EDV: 13.1 cm/s ICA/CCA ratio: PSV: 2.2 EDV: 3.0 IMPRESSION: 1. Flow velocities on the right suggest 50-69% flow stenosis. Stent placement within ICA, and mild atherosclerotic disease. 2. Flow velocities on the left suggest 0-49% flow stenosis. Clearing of previously seen dense atherosclerotic plaque. Electronically authenticated by: GINGER BROOKS Date: 2021-06-05 15:31 Normal [facility] XR CHEST 1 Von 06-05-2021 XR CHEST 1 V EXAMINATION: XR CHEST 1 V HISTORY: Dizziness COMPARISON: XR chest 05/27/2021, 01/08/2015 FINDINGS: LUNGS: Mild haziness overlying the lung bases and mild chronic stranding consistent with interstitial changes. VASCULATURE: No increased pulmonary vasculature. PLEURA: No pneumothorax, effusion, or pleural thickening. CARDIAC: No cardiomegaly or cardiac silhouette abnormality. MEDIASTINUM: No visible mass or adenopathy. BONES: No fracture or visible bone lesion. OTHER: Negative. IMPRESSION: 1. Trace bibasilar atelectasis versus infiltrates overlying chronic interstitial changes. Electronically authenticated by: GINGER BROOKS Date: 2021-06-05 09:36 Normal [facility] CT HEAD WO CONon 06-04-2021 CT HEAD WO CON EXAMINATION: CT HEAD WO CON, 06/04/2021 7:10 AM EST HISTORY: Numbness , left-sided weakness and tingling COMPARISON: None. TECHNIQUE: CT scan of the head was performed without IV contrast. CT dose reduction technique was used, including Automated Exposure Control. FINDINGS: BRAIN: Areas of mildly decreased attenuation within the deep white matter favoring chronic small vessel ischemic changes. No edema, hemorrhage, mass, acute infarction, or inappropriate atrophy. CSF SPACES: No hydrocephalus, subarachnoid hemorrhage, or mass. Appropriate for age. SKULL: No fracture, mass, or other significant visible lesion. SINUSES: No significant mucosal thickening or fluid on the limited views. ORBITS: No appreciable abnormality on the limited views. OTHER: Negative IMPRESSION: 1. No intracranial hemorrhage or appreciable acute abnormality. 2. Mild age consistent atrophy and chronic small vessel ischemic changes. Electronically authenticated by: GINGER BROOKS Date: 2021-06-04 08:06 Normal [facility] BNPon 05-27-2021 Natriuretic peptide B (Bld) [Mass/Vol] 285.0 pg/mL Normal <=900.0 [facility] Comment on above: Performed By: #### C MADM, CMP, BNP ####[facility] [address] [place] [address]DrSmooth Montiel CARDIAC LOGAN ADMITon 022 CK [Catalytic activity/Vol] 60 U/L Normal 30-135 [facility] Comment on above: Performed By: #### C MADM, CMP, BNP ####[facility] [address] [place] [id number]. Good Montiel CK.MB [Mass/Vol] 2.13 ng/mL Normal <=2.37 [facility] Comment on above: Performed By: #### C MADM, CMP, BNP ####[facility] [address] [place] [id number]. Good Montiel HSTROP 10.8 pg/mL Normal 4.0-35.5 [facility] Comment on above: Result Comment: CUT- OFF POINTS HAVE BEEN ESTABLISHED BASED ON THE FOURTH UNIVERSAL DEFINITIONS OF MYOCARDIAL INFARCTION. THE UPPER REFERENCE LIMIT (URL) OF TROPONIN, DEFINED THE 99TH PERCENTILE OF cTnI DISTRIBUTION IN A REFERENCE POPULATION, HAS BEEN CONFIRMED THE DECISION THRESHOLD FOR [place] DIAGNOSIS. Performed By: #### C MADM, CMP, BNP ####[facility] [address] [place] [id number]. oGod Montiel CLIF 62.0 ng/mL Critically high <=61.5 [facility] Comment on above: Performed By: #### C MADM, CMP, BNP ####[facility] [address] [place] [id number]. Good Montiel CBC AUTO DIFFon 05-27-2021 BASO # 0.1 103/ul Normal 0.0-0.1 [facility] Comment on above: Performed By: #### C BC ####[facility] [address] [place] [id number]. Good Montiel Basophils/100 WBC (Bld) 0.8 % Normal 0.2-2.0 [facility] Comment on above: Performed By: #### C BC ####[facility] [address] [place] [id number]. Good Montiel EO # 0.3 103/ul Normal 0.0-0.7 [facility] Comment on above: Performed By: #### C BC ####[facility] [facility] [address] [place] [id number]. Good Montiel Eosinophils/100 WBC (Bld) 3.1 % Normal 0.9-7.0 [facility] Comment on above: Performed By: #### C BC ####[facility] [address] [place] [id number]. Good Montiel Erythrocyte distribution width (RBC) [Ratio] 18.4 % Critically high 11.0-15.0 [facility] Comment on above: Performed By: #### C BC ####[facility] [address] [place] [address]Dr. Good Montiel Hematocrit (Bld) [Volume fraction] 31.8 % Critically low 36.0-48.0 [facility] Comment on above: Performed By: #### C BC ####[facility] [address] [place], [place] [address]Dr. Good Montiel Hemoglobin (Bld) [Mass/Vol] 9.8 g/dL Critically low 12.0-16.0 [facility] Comment on above: Performed By: #### C BC ####[facility] [address] [place], [place] [address]Dr. Good Montiel IG # 0.09 10e3/ul Critically high 0.00-0.03 [facility] Comment on above: Performed By: #### C BC ####[facility] [address] [place], [place] [address]Dr. Good Montiel IG % 1.1 % Critically high 0.0-0.5 [facility] Comment on above: Performed By: #### C BC ####[facility] [address] [place], [place] [address]Dr. Good Montiel LYMPH # 1.6 103/ul Normal 1.2-3.8 [facility] Comment on above: Performed By: #### C BC ####[facility] [address] [place], [place] [address]Dr. Good Montiel Lymphocytes/100 WBC (Bld) 18.5 % Critically low 20.5-60.0 [facility] Comment on above: Performed By: #### C BC ####[facility] Ishgevicve[address] [place] [id number]. Rejoo Montiel MANUAL DIFF REQ NO Normal [facility] Comment on above: Performed By: #### C BC ####[facility] X[address]sl[address] [place] [id number]. Good Montiel MCH (RBC) [Entitic mass] 22.1 pg Critically low 26.7-34.0 [facility] Comment on above: Performed By: #### C BC ####[facility] Qp[address]ym[address] [place] [id number]. Rejoo Montiel MCHC (RBC) [Mass/Vol] 30.8 g/dL Normal 29.9-35.2 [facility] Comment on above: Performed By: #### C BC ####[facility] [address]xsmdx[address] [place] [address]Dr. Good Montiel MCV (RBC) [Entitic vol] 71.6 fL Critically low 81.0-99. 0 [facility] Comment on above: Performed By: #### C BC ####[facility] V[address]fec[address] [place] [id number]. Good Montiel MONO # 0.7 103/ul Normal 0.3-0.8 [facility] Comment on above: Performed By: #### C BC ####[facility] [address]bs[address] [place] [id number]. Good Montiel Monocytes/100 WBC (Bld) 8.8 % Normal 1.7-12.0 [facility] Comment on above: Performed By: #### C BC ####[facility] [address]uz[address] [place] [id number]. Good Montiel NEUT # 5.7 103/ul Normal 1.4-6.5 [facility] Comment on above: Performed By: #### C BC ####[facility] [address] [place] [id number]. Good Montiel Neutrophils/100 WBC (Bld) 67.7 % Normal 43.0-75.0 [facility] Comment on above: Performed By: #### C BC ####[facility] [address] [place], [place] [address]Ix. Good Montiel Platelet mean volume (Bld) [Entitic vol] 8.2 fL Critically low 9.5-13.5 [facility] Comment on above: Performed By: #### C BC ####[facility] [address]ce[address]xs[address] [place], [place] [address]Cm. Good Montiel PLT 382 103/ul Normal 150-450 [facility] Comment on above: Performed By: #### C BC ####[facility] Esxowrwh[address]26[address] [place], [place] [address]Ph. Good Montiel RBC 4.44 106/ul Normal 4.20-5.40 [facility] Comment on above: Performed By: #### C BC ####[facility] [address]kv[address] [place], [place] [address]Sr. Good Montiel WBC 8.4 103/ul Normal 4.0-11.0 [facility] Comment on above: Performed By: #### C BC ####[facility] [address]ndtw[address] [place], [place] [address]Xo. Good Mont[address] CT STROKE HEAD WOon 05-27-19 CT STROKE HEAD WO EXAMINATION: CT STROKE HEAD WO, 05/27/2021 6:54 AM EST HISTORY: Dizziness ; left facial numbness, left upper extremity numbness COMPARISON: None. TECHNIQUE: CT scan of the head was performed without IV contrast. CT dose reduction technique was used, including Automated Exposure Control. FINDINGS: BRAIN: Mild decreased attenuation involving the periventricular deep white matter of the frontal lobes, left greater than right. No edema, hemorrhage, mass, acute infarction, or inappropriate atrophy. CSF SPACES: No hydrocephalus, subarachnoid hemorrhage, or mass. Appropriate for age. SKULL: No fracture, mass, or other significant visible lesion. SINUSES: No significant mucosal thickening or fluid on the limited views. ORBITS: No appreciable abnormality on the limited views. OTHER: Negative IMPRESSION: 1. No intracranial hemorrhage. 2. Mild chronic small vessel ischemic changes. Minimal atrophy. Findings discussed via telephone with Hetal in the emergency department to be relayed to Dr. Castillo. Electronically authenticated by: GINGER BROOKS Date: 2021-05-27 07:10 Normal [facility] PROF 14(COMP METB)on 022 Albumin [Mass/Vol] 3.3 g/dL Critically low 3.5-5.0 Th e [facility] Comment on above: Performed By: #### C MADM, CMP, BNP ####[facility] [address] [place] [address]Dr. Good Montiel Albumin/Globulin [Mass ratio] 1.0 {ratio} Normal [facility] Comment on above: Performed By: #### C MADM, CMP, BNP ####[facility] Rv[address]xvx[address] [place] [address]Dr. Good Montiel ALP [Catalytic activity/Vol] 43 U/L Normal 38-126 [facility] Comment on above: Performed By: #### C MADM, CMP, BNP ####[facility] Mbw[address]opwurt[address] [place] [address]Dr. Good Montiel ALT [Catalytic activity/Vol] 27 U/L Normal 9-52 [facility] Comment on above: Performed By: #### C MADM, CMP, BNP ####[facility] Dtrlcxvndp6553 [place] [address]Dr. Good Montiel Anion gap [Moles/Vol] 8.1 mmol/L Normal [facility] Comment on above: Performed By: #### C MADM, CMP, BNP ####[facility] Pboiipkuhv[address] [place] [address]Dr. Good Montiel AST [Catalytic activity/Vol] 23 U/L Normal 14-36 [facility] Comment on above: Performed By: #### C MADM, CMP, BNP ####[facility] Jjtmborihi[address]19 [place] [address]Dr. Good Montiel Bilirubin [Mass/Vol] 0.4 mg/dL Normal 0.2-1.3 [facility] Comment on above: Performed By: #### C MADM, CMP, BNP ####[facility] C[address]wbbcwz[address] [place] [address]Dr. Good Montiel Calcium [Mass/Vol] 8.5 mg/dL Normal 8.4-10.2 [facility] Comment on above: Performed By: #### C MADM, CMP, BNP ####[facility] Tdbpa[address]joz[address] [place] [address]Dr. Good Montiel Chloride [Moles/Vol] 94 mmol/L Critically low 98-107 [facility] Comment on above: Performed By: #### C MADM, CMP, BNP ####[facility] Enfmjhwunb35[address] [place] [address]Dr. Good Montiel CO2 [Moles/Vol] 29.9 mmol/L Normal 22.0-30.0 [facility] Comment on above: Performed By: #### C MADM, CMP, BNP ####[facility] [address] [place], [place] [address]Dr. Good Montiel Creatinine [Mass/Vol] 0.77 mg/dL Normal 0.52-1.04 [facility] Comment on above: Performed By: #### C MADM, CMP, BNP ####[facility] If[address]th[address] [place], [place] [address]Dr. Good Montiel EGFR-AF CYPRIOT >60 Normal >=60 [facility] Comment on above: Performed By: #### C MADM, CMP, BNP ####[facility] K[address]ch[address] [place], [place] [address]Dr. Good Montiel EGFR-NON AF CYPRIOT >60 Normal >=60 [facility] Comment on above: Performed By: #### C MADM, CMP, BNP ####[facility] E[address]xc[address] [place] [address]Dr. Good Montiel Globulin (S) [Mass/Vol] 3.4 g/dL Normal [facility] Comment on above: Performed By: #### C MADM, CMP, BNP ####[facility] [address] [place], [place] [address]Dr. Good Montiel Glucose [Mass/Vol] 114 mg/dL Critically high 74-106 [facility] Comment on above: Performed By: #### C MADM, CMP, BNP ####[facility] Anvmjtmmlz[address] [place] [address]Dr. Good Montiel Potassium [Moles/Vol] 4.0 mmol/L Normal 3.4-5.0 [facility] Comment on above: Performed By: #### C MADM, CMP, BNP ####[facility] [address] [place] [address]Dr. Good Montiel Protein [Mass/Vol] 6.7 g/dL Normal 6.1-8.2 [facility] Comment on above: Performed By: #### C MADM, CMP, BNP ####[facility] [address]qph[address]jjxi[address] [place] [address]Dr. Good Montiel Sodium [Moles/Vol] 128 mmol/L Critically low 137-145 [facility] Comment on above: Performed By: #### C MADM, CMP, BNP ####[facility] Y[address]mfawl[address] [place] [address]Dr. Good Montiel Urea nitrogen [Mass/Vol] 12.0 mg/dL Normal 7.0-17.0 [facility] Comment on above: Performed By: #### C MADHakeem, CMP, BNP ####[facility] Y[address]pd[address] [place] [address]Dr. Good Montiel Urea nitrogen/Creatinine [Mass ratio] 15.6 mg/mg Normal [facility] Comment on above: Performed By: #### C MADM, CMP, BNP ####[facility] Wrxtxbhpji[address] [place] [address]Dr. Good Montiel PROTIMEon 05-27-2021 INR Coag (PPP) [Relative time] 1.01 {INR} Normal [facility] Comment on above: Performed By: #### M MA2 #### [facility] [address] [address] [address] Good Montiel INR GUIDELINES SEE BELOW Normal [facility] Comment on above: Result Comment: JEANNINE RED INR: 2.0 - 3.0 CONDITIONS NOT LISTED BELOW 2.5 - 3.5 FOR PROSTHETIC HEART VALVE REPLACEMENT 2.5 - 3.5 RECURRENT THROMBOSIS Performed By: #### M MA2 #### [facility] [address] [address] [address] Good Montiel PT Coag (PPP) [Time] 10.9 s Normal 9.0-11.6 [facility] Comment on above: Performed By: #### M MA2 #### [facility] [address] [place] [address] Dr. Good Montiel PTTon 05-27-2021 aPTT Coag (Bld) [Time] 24.5 s Normal 22.3-36.2 [facility] Comment on above: Performed By: #### M MA2 #### [facility] [address] [place] [address] Dr. Good Montiel XR CHEST 1 Von 05-27-2021 XR CHEST 1 V EXAMINATION: XR CHEST 1 V HISTORY: Dizziness COMPARISON: XR chest 01/08/2015 FINDINGS: LUNGS: No significant pulmonary parenchymal abnormalities. VASCULATURE: No increased pulmonary vasculature. PLEURA: No pneumothorax, effusion, or pleural thickening. CARDIAC: No cardiomegaly or cardiac silhouette abnormality. MEDIASTINUM: No visible mass or adenopathy. BONES: No fracture or visible bone lesion. OTHER: Negative. IMPRESSION: 1. No acute cardiopulmonary process. Stable chest. Electronically authenticated by: GINGER BROOKS Date: 2021-05-27 07:53 Normal [facility] Vital Signs Date Time Vital Sign Value Performing Clinician Facility 02-01-2023 10:58-0400 Body temperature 97.2 [degF] MD Wily Prado Work Phone: [facility] 02-01-2023 10:58-0400 Body weight 78.92 kg MD Wily Prado Work Phone: [facility] 02-01-2023 10:58-0400 Diastolic blood pressure 66 mm[Hg] MD Wily Prado Work Phone: [facility] 02-01-2023 10:58-0400 Heart rate 67 /min MD Wily Prado Work Phone: [facility] 02-01-2023 10:58-0400 Respiratory rate 16 /min MD Wily Prado Work Phone: [facility] 02-01-2023 10:58-0400 SaO2% (BldA) [Mass fraction] 95 % MD Wily Prado Work Phone: [facility] 02-01-2023 10:58-0400 Systolic blood pressure 171 mm[Hg] MD Wily Prado Work Phone: [facility] 11-02-2022 09:46-0400 Body temperature 97.8 [degF] MD Wily Prado Work Phone: [facility] 11-02-2022 09:46-0400 Body weight 78.01 kg MD Wily Prado Work Phone: [facility] 11-02-2022 09:46-0400 Diastolic blood pressure 79 mm[Hg] MD Wily Prado Work Phone: [facility] 11-02-2022 09:46-0400 Heart rate 64 /min MD Wily Prado Work Phone: [facility] 11-02-2022 09:46-0400 Respiratory rate 16 /min MD Wily Prado Work Phone: [facility] 11-02-2022 09:46-0400 SaO2% (BldA) [Mass fraction] 95 % MD Wily Prado Work Phone: [facility] 11-02-2022 09:46-0400 Systolic blood pressure 179 mm[Hg] MD Wily Prado Work Phone: [facility] 07-30-2022 10:49-0400 Body temperature 97.7 [degF] MD Wily Prado Work Phone: [facility] 07-30-2022 10:49-0400 Body weight 81 kg MD Wily Prado Work Phone: [facility] 07-30-2022 10:49-0400 Diastolic blood pressure 81 mm[Hg] MD Wily Prado Work Phone: [facility] 07-30-2022 10:49-0400 Heart rate 64 /min MD Wily Prado Work Phone: [facility] 07-30-2022 10:49-0400 Respiratory rate 16 /min MD Wily Prado Work Phone: [facility] 07-30-2022 10:49-0400 SaO2% (BldA) [Mass fraction] 96 % MD Wily Prado Work Phone: [facility] 07-30-2022 10:49-0400 Systolic blood pressure 166 mm[Hg] MD Wily Prado Work Phone: [facility] 04-26-2022 09:37-0500 Body temperature 97.8 [degF] MD Wily Prado Work Phone: [facility] 04-26-2022 09:37-0500 Body weight 80.4 kg MD Wily Prado Work Phone: [facility] 04-26-2022 09:37-0500 Diastolic blood pressure 71 mm[Hg] MD Wily Prado Work Phone: [facility] 04-26-2022 09:37-0500 Heart rate 60 /min MD Wily Prado Work Phone: [facility] 04-26-2022 09:37-0500 Respiratory rate 16 /min MD Wily Prado Work Phone: [facility] 04-26-2022 09:37-0500 SaO2% (BldA) [Mass fraction] 93 % MD Wily Prado Work Phone: [facility] 04-26-2022 09:37-0500 Systolic blood pressure 145 mm[Hg] MD Wily Prado Work Phone: [facility] 02-22-2022 11:08-0400 Body temperature 98 [degF] MD Wily Prado Work Phone: [facility] 02-22-2022 11:08-0400 Body weight 80.73 kg MD Wily Prado Work Phone: [facility] 02-22-2022 11:08-0400 Diastolic blood pressure 56 mm[Hg] MD Wily Prado Work Phone: [facility] 02-22-2022 11:08-0400 Heart rate 65 /min MD Wily Prado Work Phone: [facility] 02-22-2022 11:08-0400 Respiratory rate 16 /min MD Wily Prado Work Phone: [facility] 02-22-2022 11:08-0400 SaO2% (BldA) [Mass fraction] 95 % MD Wily Prado Work Phone: [facility] 02-22-2022 11:08-0400 Systolic blood pressure 163 mm[Hg] MD Wily Prado Work Phone: [facility] 01-12-2022 11:24-0400 Body temperature 97.9 [degF] MD Wily Prado Work Phone: [facility] 01-12-2022 11:24-0400 Body weight 87.86 kg MD Wily Prado Work Phone: [facility] 01-12-2022 11:24-0400 Diastolic blood pressure 63 mm[Hg] MD Wily Prado Work Phone: [facility] 01-12-2022 11:24-0400 Heart rate 58 /min MD Wily Prado Work Phone: [facility] 01-12-2022 11:24-0400 Respiratory rate 18 /min MD Wily Prado Work Phone: [facility] 01-12-2022 11:24-0400 SaO2% (BldA) [Mass fraction] 97 % MD Wily Prado Work Phone: [facility] 01-12-2022 11:24-0400 Systolic blood pressure 169 mm[Hg] MD Wily Prado Work Phone: [facility] 01-12-2022 11:14-0400 Body height 152.4 cm MD Wily Prado Work Phone: [facility] 02-24-2021 13:00-0400 Body height 152.4 cm Mikie West Other [facility] Other 02-24-2021 13:00-0400 Body mass index (BMI) [Ratio] 37.1 kg/m2 Mikie Mijaresreyaima Other [facility] Other 02-24-2021 13:00-0400 Body temperature 97.6 [degF] Mikie West Other [facility] Other 02-24-2021 13:00-0400 Body weight 86.18 kg Mikie West Other [facility] Other 02-24-2021 13:00-0400 Diastolic blood pressure 67 mm[Hg] Mikie Mijaresrer Other [facility] Other 02-24-2021 13:00-0400 Systolic blood pressure 166 mm[Hg] Mikie Buehrer Other [facility] Other Encounters Encounter Date Encounter Type Care Provider Facility Start: 08-09-2023 End: 08-10-2023 ambulatory LONDON BRO Not Available Start: 08-05-2023 End: 08-05-2023 ambulatory LONDON BRO Not Available Start: 08-02-2023 End: 08-02-2023 ambulatory LONDON BRO Not Available Start: 07-29-2023 End: 07-29-2023 ambulatory LONDON BRO Not Available Start: 07-25-2023 End: 07-26-2023 ambulatory LONDON BRO Not Available Start: 07-21-2023 End: 07-21-2023 ambulatory LONDON CRABTREE Not Available Start: 07-18-2023 End: 07-18-2023 ambulatory LONDON CRABTREE Not Available Start: 07-14-2023 End: 07-14-2023 ambulatory DAWIT NEFF Not Available Start: 07-12-2023 End: 07-12-2023 ambulatory LONDON CRABTREE Not Available Start: 07-05-2023 End: 07-05-2023 ambulatory LONDON CRABTREE Not Available Start: 06-28-2023 End: 06-28-2023 ambulatory LONDON CRABTREE Not Available Start: 06-28-2023 End: 06-28-2023 ambulatory London Crabtree [employer] [facility] Comment on above: Acute bilateral low back pain with sciatica, sciatica laterality unspecified (Primary Dx); Lumbar spondylosis; Bilateral hip pain Start: 06-28-2023 Bamboo flowsheet Londno Crabtree PT A [facility] Start: 06-28-2023 Bamboo flowsheet [place] Crabtree PT A [facility] Start: 06-21-2023 End: 06-21-2023 ambulatory SONNY SHEFFIELD Not Available Start: 06-21-2023 End: 06-21-2023 ambulatory Sonny Sheffield PT Work Phone: [facility] Comment on above: Acute bilateral low back pain with sciatica, sciatica laterality unspecified (Primary Dx); Lumbar spondylosis; Bilateral hip pain Start: 06-16-2023 End: 06-16-2023 ambulatory Sonny Sheffield PT Work Phone: [facility] Comment on above: Acute bilateral low back pain with sciatica, sciatica laterality unspecified (Primary Dx); Lumbar spondylosis; Bilateral hip pain Start: 06-16-2023 Bamboo flowsheet Sonny brown PT Work Phone: [facility] Start: 06-16-2023 Bamboo flowsheet Sonny gauthierton PT Work Phone: [facility] Start: 06-16-2023 Telephone encounter Wily Swenson MD Work Phone: [facility] Comment on above: Med Refill ([facility] [place]) Acute bilateral low back pain with bilateral sciatica (Primary Dx) Start: 06-09-2023 End: 06-09-2023 ambulatory SONNY SHEFFIELD Not Available Start: 05-10-2023 End: 05-10-2023 ambulatory WILY PRADO Not Available Start: 02-01-2023 ambulatory MD Wily caballero Work Phone: [facility] Work Phone: Start: 02-01-2023 Registered Recurring MD Wily Prado Work Phone: [facility] Work Phone: Start: 11-02-2022 End: 11-02-2022 ambulatory MD Wily Prado Work Phone: [facility] Work Phone: Start: 11-02-2022 End: 11-02-2022 Registered Recurring MD Wily Prado Work Phone: [facility] Work Phone: Start: 07-30-2022 End: 07-30-2022 ambulatory MD Wily Prado Work Phone: [facility] Work Phone: Start: 07-30-2022 End: 07-30-2022 Registered Recurring MD Wily Prado Work Phone: [facility] Work Phone: Start: 04-26-2022 End: 04-26-2022 ambulatory MD Wily Prado Work Phone: [facility] Work Phone: Start: 04-26-2022 End: 04-26-2022 Registered Recurring MD Wily Prado Work Phone: [facility] Start: 02-22-2022 End: 02-22-2022 ambulatory MD Wily Prado Work Phone: [facility] Work Phone: Start: 02-22-2022 End: 02-22-2022 Registered Recurring MD Wily Prado Work Phone: [facility] Start: 02-17-2022 End: 02-17-2022 ambulatory UNKNOWN PROVIDER Facility:[facility] Start: 02-17-2022 End: 02-17-2022 Emergency department patient visit [facility] Emergency Triage, Treat and Transport Comment on above: Arrived Start: 01-21-2022 End: 01-21-[address] NATALIA LYN Facility:[facility] Start: 01-20-2022 End: 01-20-[address] MIKIE GARCIA Facility:[facility] Start: 01-20-2022 End: 01-20-2022 Departed Referred MD Wily Prado Work Phone: [facility] Start: 01-15-2022 End: 01-19-2022 ambulatory UNKNOWN PROVIDER Facility:[facility] Start: 01-14-2022 End: 01-14-[address] LOGAN GATES Facility:[facility] Start: 01-12-2022 End: 01-12-2022 Registered Recurring MD [facility] Prado [facility] Start: 01-12-2022 Registered Recurring MD [facility]ily Prado [facility] Start: 01-04-2022 End: 01-04-[address] GINGER BROOKS Facility:[facility] Start: 12-24-2021 End: 12-24-2021 ambulatory AUNG ZIMMERMAN Facility:[facility] Start: 11-24-2021 End: 11-24-[address] LOGAN GATES Facility:[facility] Start: 11-13-2021 Encounter for genera l adult medical examination without abnormal findings DR AMAN JOSEPH [facility] Start: 11-10-2021 End: 11-11-[address] ARIAN GRADY Facility:[facility] Start: 11-10-2021 End: 11-11-2021 Encounter for general adult medical examination without abnormal findings DR ARIAN GRADY Facility:[facility] Start: 08-12-2021 End: 08-13-2021 ambulatory LOGAN ROSE Facility:[facility] Start: 06-10-2021 End: 06-10-[address] NATALIA LYN Facility:[facility] Start: 06-05-2021 End: 06-06-[address] FELIBERTO LEO Facility:[facility] Start: 06-04-2021 End: 06-04-[address] GINGER BROOKS Facility:[facility] Start: 05-27-2021 End: 05-27-2021 ambulatory ZAC HANKINS Facility:[facility] Start: 02-24-2021 Office outpatient vi sit 15 minutes Mikie West [facility] Procedures Date Procedure Procedure Detail Performing Clinician Start: 01-05-2022 Colonoscopy Sonny Sheffield PT Work Phone: History of carotid endarterectomy H/O carotid endarterectomy MD Wily Prado Work Phone: Plan of Treatment Date Care Activity Detail Author Start: 01-06-2032 Screening for malign ant neoplasm of colon [facility] Start: 10-28-2025 Cholesterol [Mass/volume] in Serum or Plasma Cholesterol [facility] Start: 05-10-2024 Urine screening for protein Diabetes: Urine Protein Screening [facility] Start: 12-28-2023 Medicare Annual Well ness (AWV) Medicare Annual Wellness (AWV) [facility] Start: 07-05-2023 End: 07-05-2023 ambulatory 07/05/2023 2:30 PM EST Treatment [facility] [address] [place] [id number] [place] Crabtree, [employer] [facility] Start: 06-30-2023 End: 06-30-2023 ambulatory [facility] Start: 06-29-2023 Hemoglobin A1c measurement Diabetes: Hemoglobin A1C [facility] Comment on above: Postponed from 03/29 (Other Medical Reasons) Start: 06-28-2023 End: 06-28-2023 ambulatory [facility] Comment on above: Arrived Start: 06-23-2023 End: 06-23-2023 ambulatory [facility] Start: 06-21-2023 End: 02-06-2024 ambulatory 06/21/2023 2:30 PM EST Treatment [facility] [address] [facility] [address] [place] [address] Sonny Sheffield, PT [address] [facility] [address] [place] [address] [facility] Start: 06-16-2023 End: 06-16-2023 ambulatory 06/16/2023 2:00 PM EST Treatment [facility] [address] [facility] [address] [place] [address] Sonny Sheffield, PT [address] [facility] [address] [place] [address] Arrived [facility] Comment on above: Arrived Start: 11-22-2022 Screening for malign ant neoplasm of colon FIT-DNA [facility] Start: 10-14-2022 Annual Wellness Visi t ([id number]) Annual Wellness Visit (G0439) [facility] Start: 08-30-2022 [facility] Start: 08-23-2022 [facility] Start: 02-28-2022 Glaucoma screening Diabetes: R etinopathy Screening [facility] Start: 02-13-2022 Influenza vaccination Influenza Vacc ine (#1) [facility] Start: 02-04-2022 [facility] Start: 02-02-2022 COVID-19 Vaccine (5 - Booster for Pfizer series) COVID-19 Vaccine (5 - Booster for Pfizer series) [facility] Start: 01-28-2022 [facility] Start: 11-10-2021 Screening for malign ant neoplasm of colon FOBT [facility] Start: 11-07-2021 Pneumococcal vaccination Pneum ococcal Vaccine(s) (65+ yrs) (2 - PPSV23 or PCV20) [facility] Start: 01-02-2021 Shingles (RZV) Vacci ne (2 of 2) Shingles (RZV) Vaccine (2 of 2) [facility] Start: 11-14-2020 Screening for malign ant neoplasm of breast Mammography [facility] Start: 07-26-2012 Screening for osteoporosis Bone Densitometry [facility] Start: 07-26-1997 Measurement of occul t blood in single stool specimen [facility] Start: 07-26-1997 Screening for malign ant neoplasm of colon CRC Screening [facility] Start: 07-26-1965 Hepatitis C screening Hepatitis C An tibody [facility] Start: 07-26-1965 Tetanus + diphtheria + acellular pertussis vaccine (product) Tdap Booster [facility] Start: 1947 Screening for malign ant neoplasm of colon [facility] Comprehensive metabo lic 1999 panel - Serum or Plasma [facility] Comprehensive metabo lic 1999 panel - Serum or Plasma [facility] Comprehensive metabo lic 1999 panel - Serum or Plasma [facility] Ferritin [Mass/volum e] in Serum or Plasma [facility] Ferritin [Mass/volum e] in Serum or Plasma [facility] Work Phone: [facility] Immunizations Immunization Date Immunization Notes Care Provider [facility] 06-17-2023 RSV, recombinant, protein subunit RSVpreF, adjuvant reconstitu, 120mcg/0.5mL, PF (Arexvy) Sonny Sheffield PT Work Phone: [facility] 03-21-2023 Influenza, Seasonal, Quadrivalent, Adjuvanted Sonny Sheffield PT Work Phone: [facility] 03-19-2022 influenza, high dose seasonal, preservative-free Sonny Sheffield PT Work Phone: [facility] 01-04-2022 diphtheria, tetanus toxoids and pertussis vaccine [facility] 01-04-2022 tetanus toxoid, redu blake diphtheria toxoid, and acellular pertussis vaccine, adsorbed Sonny Sheffield PT Work Phone: [facility] 10-30-2021 tetanus toxoid, redu blake diphtheria toxoid, and acellular pertussis vaccine, adsorbed Sonny Sheffield PT Work Phone: [facility] 04-21-2021 Influenza, seasonal vaccine, quadrivalent, adjuvanted, 0.5mL dose, preservative free (QYK=379) [facility] 04-21-2021 Seasonal, trivalent, recombinant, injectable influenza vaccine, preservative free Sonny Sheffield PT Work Phone: [facility] 04-21-2021 influenza virus vaccine, unspecified formulation [facility] 11-07-2020 pneumococcal conjuga te vaccine, 13 valent [facility] 11-07-2020 zoster vaccine recombinant [facility] 07-14-2020 COVID-19 Vaccine Pfi zer - Documentation Purposes Only Mikie West Other [facility] 06-22-2020 COVID-19 Vaccine Pfi zer - Documentation Purposes Only Mikie West Other [facility] 2018 pneumococcal polysaccharide vaccine, 23 valent Mikie West Other [facility] 06-13-2009 novel [id number], preservative-free, injectable [facility] Payers Date Payer Category Payer Unknown AARP AARP [id number] 2022-Present [address] [place] [address] [id number] 2021 Self-pay [id number] 2012 Medicare [id number] [id number] [id number] 1959 Medicare [id number] 2.1 6.840.1.641717.19 1959 Unknown [id number] 2.1 6.840.1.328297.19 1947 Unknown [id number] 2.16.840.1.306100.3.579.2.593 1947 Unknown [id number] 2.16.840.1.975374.3.579.2.593 1947 Unknown [id number] 2.16.840.1.613987.3.579.2.593 1947 Unknown [id number] 2.16.840.1.612409.3.579.2.593 1947 Unknown [id number] 2.16.840.1.536130.3.579.2.593 1947 Unknown [id number] 2.16.840.1.024581.3.579.2.593 1947 Unknown [id number] 2.16.840.1.468253.3.579.2.593 1947 Unknown [id number] 2.16.840.1.235360.3.579.2.593 1947 Unknown [id number] 2.16.840.1.959922.3.579.2.593 1947 Unknown [id number] 2.16.840.1.688165.3.579.2.593 1947 Unknown [id number] 2.16.840.1.220998.3.579.2.593 1947 Unknown [id number] 2.16.840.1.392437.3.579.2.593 1947 Unknown [id number] 2.16.840.1.667543.3.579.2.732 1947 Unknown [id number] 2.16.840.1.294201.3.579.2.732 1947 Unknown [id number] 2.16.840.1.839728.3.579.2.1259 1947 Unknown [id number] 2.16.840.1.970587.3.579.2.1259 1947 Unknown [id number] 2.16.840.1.172293.3.579.2.1259 1947 Unknown [id number] 2.16.840.1.284871.3.579.2.1258 1947 Unknown [id number] 2.16.840.1.032009.3.579.2.1258 1947 Unknown [id number] 2.16.840.1.165391.3.579.2.1258 1947 Unknown [id number] 2.16.840.1.409057.3.579.2.1258 1947 Unknown [id number] 2.16.840.1.788439.3.579.2.1258 1947 Unknown [id number] 2.16.840.1.331106.3.579.2.1258 1947 Unknown [id number] 2.16.840.1.772044.3.579.2.1258 1947 Unknown [id number] 2.16.840.1.228277.3.579.2.1258 1947 Unknown [id number] 2.16.840.1.801779.3.579.2.1258 1947 Unknown [id number] 2.16.840.1.455318.3.579.2.1258 1947 Unknown [id number] 2.16.840.1.457707.3.579.2.125 1947 Unknown [id number] 2.16.840.1.163619.3.579.2.1259 Unknown [id number] 2.16.840.1.946242.3.579.2.531 Social History Date Type Detail Facility Unknown if ever smoked [facility] Other Start: 12-27-2022 End: 05-10-2023 Sex Assigned At [facility] Other Start: 01-12-2022 End: 02-01-2023 Tobacco smoking status NHIS Smoker (finding) [facility] Start: 1945 Sex Assigned At Female [facility] Tobacco smoking stat us NHIS Tobacco smoking consumption unknown [facility] Start: 1945 Sex Assigned At Not on file [facility] Start: 12-27-2022 Tobacco smoking status PAIS Smokes tobacco daily [facility] History of tobacco use Cigarette Smoker [facility] Start: 12-27-2022 End: 05-10-2023 Cigarettes smoked current (pack per day) - Reported 1.5 [facility] Start: 12-27-2022 Tobacco use and exposure Smokeless tobacco non-user [facility] Start: 05-10-2023 Alcohol intake Lifetime non-drinker (finding) [facility] Start: 11-10-2022 Tobacco Comment 11-20 cigs/day [facility] Start: 11-10-2022 Alcohol Comment Caffeine intake: more than 4 cups per day [facility] Medical Equipment Procedure Code Equipment Code Equipment Origin al Text Equipment Identifier Dates Endarterectomy, carotid Cardiovascular patch, animal-derived [id number] FDA Start: 10-02-2020 Angioplasty of carotid artery with insertion of stent Bare-metal carotid artery stent ()[id number] FDA Start: 12-17-2019 USE DIRECTED TWICE A DAY [id number] Start: 12-20-2022 1 each by Other route in the morning and 1 each before bedtime. [id number] USE TO TEST BLOO D SUGAR TWICE DAILY [id number] Start: 06-27-2023 Goals Date Patient Goal Desired Activity /State Clinical Notes 02-24-2021 to 06-21-2023 Sonny Sheffield, PT - 06/21/2023 2:30 PM ESTTelephone Encounter - Meme Olsen, LANGUAGE INSTRUCTOR - 06/16/2023 3:41 PM ESTTelephone Encounter - Meme Olsen, LANGUAGE INSTRUCTOR - 06/16/2023 3:41 PM EST Note Date & Type Note Facility 06-21-2023 History of Presen t illness Narrative Physical Therapy Physical Therapy Evaluation Visit Patient Name: Nuvia Abraham Today's Date: 06/16/23 Encounter Diagnoses Name Primary? Acute bilateral low back pain with sciatica, sciatica laterality unspecified Yes Lumbar spondylosis Bilateral hip pain Visit number: 3 Supervised Time: 40 minutes Total Time: 60 minutes Time IN: 2:20 pm Time OUT: 3:20 pm History: Pt. Presents to PT with c/c of bilateral lumbar and hip pain which started 4-5 months ago. No insidious onset. Denies N/T. Right side pain is worse than left. Unable to stand greater than 10 minutes. Pt. Has history of neuropathy. Sit to stand transfers increases her pain. History of falls a year ago due to low sodium leading to increase weakness but no falls since correcting sodium issue. Precautions: as tolerated Subjective/Pain: Reports of less back and hip pain, pleased with her progress. Objective: PT Evaluation (06/09/23) LE ROM: grossly WFL Lumbar: flexion ankle, rotation normal, extension decreased 50% limited to due pain Flexibility: moderate bilateral hamstring and piriformis muscle tightness Strength: right LE grossly 4/5, left LE grossly 4/5, core 4-/5 Palpation: TTP L5/S1 segement Back index: 12% Goals: To be met by 4-6 weeks 1) Pt. Will report of 0/10 low back pain while walking/standing for long periods of time to help improve her functional mobility with daily tasks. 2) Pt. Will demonstrate normal LE muscle flexibility to help decrease back pain and improve her functional mobility with daily tasks. 3) Pt. Will demonstrate 5/5 bilateral LE muscle strength to help improve her functional mobility and quality of life with daily tasks. 4) Pt. Will demonstrate 5/5 core strength to allow her to walk/stand for long periods of time to help improve her functional mobility. 5) Pt. Will be able to stand for 30-40 minutes or greater to help improve her functional mobility. TREATMENT: PT evaluation (20 minutes) Manual: lumbar PA mob, LE stretching/PROM (24 minutes) Therapeutic Exercise: guided patient through skilled therapeutic exercises to help improve functional mobility; exercises in grid (16 minutes) Therapeutic Activity: Neuromuscular Re-education: Modalities: sitting: IFC with MHP to lumbar spine (15 minutes) Assessment: The patient has participated in 3 outpatient PT sessions since start of care on 06/09/23. Pt. Will benefit from skilled PT services. PT treatment to focus on improve LE/core strength and flexibility. Progressing well toward PT goals. Plan: Recommend outpatient PT 1-2x/week for 4-6 weeks per above PT POC pending patient progress and medical necessity standards I hereby deem this POC medically necessary. Please sign below and fax back to the number below. Physician Signature: Date: documented in this encounter [facility] 06-16-2023 Telephone encounter Note Form atting of this note might be different from the original. Requesting refill of Tramadol - not on current med list. [facility] 06-16-2023 Miscellaneous Notes Formattin g of this note might be different from the original. Requesting refill of Tramadol - not on current med list. documented in this encounter [facility] 06-16-2023 History of Presen t illness Narrative Physical Therapy Physical Therapy Evaluation Visit Patient Name: Nuvia Abraham Today's Date: 06/16/23 Encounter Diagnoses Name Primary? Acute bilateral low back pain with sciatica, sciatica laterality unspecified Yes Lumbar spondylosis Bilateral hip pain Visit number: 2 Supervised Time: 40 minutes Total Time: 60 minutes Time IN: 2:00 pm Time OUT: 3:00 pm History: Pt. Presents to PT with c/c of bilateral lumbar and hip pain which started 4-5 months ago. No insidious onset. Denies N/T. Right side pain is worse than left. Unable to stand greater than 10 minutes. Pt. Has history of neuropathy. Sit to stand transfers increases her pain. History of falls a year ago due to low sodium leading to increase weakness but no falls since correcting sodium issue. Precautions: as tolerated Subjective/Pain: Reports she continues to have bilateral hip pain. Objective: PT Evaluation (06/09/23) LE ROM: grossly WFL Lumbar: flexion ankle, rotation normal, extension decreased 50% limited to due pain Flexibility: moderate bilateral hamstring and piriformis muscle tightness Strength: right LE grossly 4/5, left LE grossly 4/5, core 4-/5 Palpation: TTP L5/S1 segement Back index: 12% Goals: To be met by 4-6 weeks 1) Pt. Will report of 0/10 low back pain while walking/standing for long periods of time to help improve her functional mobility with daily tasks. 2) Pt. Will demonstrate normal LE muscle flexibility to help decrease back pain and improve her functional mobility with daily tasks. 3) Pt. Will demonstrate 5/5 bilateral LE muscle strength to help improve her functional mobility and quality of life with daily tasks. 4) Pt. Will demonstrate 5/5 core strength to allow her to walk/stand for long periods of time to help improve her functional mobility. 5) Pt. Will be able to stand for 30-40 minutes or greater to help improve her functional mobility. TREATMENT: PT evaluation (20 minutes) Manual: lumbar PA mob, LE stretching/PROM (24 minutes) Therapeutic Exercise: guided patient through skilled therapeutic exercises to help improve functional mobility; exercises in grid (16 minutes) Therapeutic Activity: Neuromuscular Re-education: Modalities: sitting: IFC with MHP to lumbar spine (15 minutes) Assessment: The patient has participated in 2 outpatient PT sessions since start of care on 06/09/23. Pt. Will benefit from skilled PT services. PT treatment to focus on improve LE/core strength and flexibility. Added manual techniques to help improve muscle flexibility today. Pt. Tolerate treatment well, performed MT bilaterally. Plan: Recommend outpatient PT 1-2x/week for 4-6 weeks per above PT POC pending patient progress and medical necessity standards I hereby deem this POC medically necessary. Please sign below and fax back to the number below. Physician Signature: Date: documented in this encounter [facility] 11-02-2022 Progress note Note Date/Time November 02, 2022 10:01[facility] [place] [id number] Hem/Onc Follow Up Note - OP Signed Patient: Nuvia Abraham MR#: [id number] : 1945 Acct:[id number] Age/Sex: 77 / F Type: REG RCR Copies to: Wily Prado MD~ Subjective Date/Time of Service: Date of Service: 11/02/2022 Time of Service: 10:00 Chief Complaint: Patient is here today for a 3 month follow up visit for iron deficiency anemia and go over labs HPI: Patient is a 76-year-old white lady seen with her daughter for hematologic surveillance on iron deficiency anemia. She received Injectafer in January 2022. She felt slightly better in terms of energy and much better in terms of restless leg syndrome symptoms. She continues to feel pretty good for the most part. No significant fatigue or changes in energy levels. Most recent iron studies show ferritin - 40 and iron saturation of 16%; with normal, robust hemoglobin of 13.5. She denies dyspnea, orthopnea, chest pain, dizziness or lightheadedness. She had repeated fall episodes previously, but nothing recently; denies with no syncope or near syncope. If mostly due to her lower extremity neuropathy and restless leg 07/30/22 She has fatigue and restless legs denies dark, tarry stool or other complaints hgb 13.5, iron sat low at 15.4% and ferritin 27.4 11/02/22 she is feeling well, has good energy denies restless legs or black, tarry stool. no new complaints her chronic back and hip pain continues to be her biggest issue. she is due for follow-up soon for this labs good- iron WNL - Summary of Therapies Summary of Therapies: Injectafer 750 mg IV x 2 doses: 01/28/2022 and 02/04/2022 PMFSH - Medical History Medical History: Medical History (Last Reviewed 08/30/22 @ 11:15 by Ritika Stiles) Arthritis mild hips Cellulitis left arm Cervical cancer COPD (chronic obstructive pulmonary disease) Diabetes Eczema ears bilateral GERD (gastroesophageal reflux disease) History of cataract not replaced yet Hyperlipidemia Hypertension Hypothyroidism Iron deficiency anemia Kidney stones Neuropathy Smoker - Surgical History Surgical History: Surgical History (Last Reviewed 01/12/22 @ 11:15 by Ritika Stiles) H/O carotid endarterectomy right, stent placed 2014 H/O: hysterectomy partial 1993 History of cholecystectomy 1999 - Family History Family History: Family History (Last Updated 01/12/22 @ 11:16 by Ritika Stiles) Mother Pancreatic cancer Diabetes Breast cancer Father Diabetes Heart disease Sister Breast cancer - Social History Smoking Status: Current every day smoker Tobacco Type: cigarettes Substance Use Type: None Social History Comments: I share with my daughter; it's my house. Home Medications & Allergies Allergies cimetidine [From Tagamet] Allergy (Verified 11/02/22 09:45) Diarrhea bacitracin [From Neosporin ([id number])] Adverse Reaction (Verified 11/02/22 09:45) Blister contact metal agent Adverse Reaction (Verified 11/02/22 09:45) Rash neomycin [From Neosporin ([id number])] Adverse Reaction (Verified 11/02/22 09:45) Blister petrolatum,white [From Petroleum Jelly] Adverse Reaction (Verified 11/02/22 09:45) Blister polymyxin B [From Neosporin (guu-mxx-kyukr)] Adverse Reaction (Verified 11/02/2308:45) Blister Home Medications atorvastatin 20 mg tablet 20 mg PO QHS 12/14/19 [History Confirmed 11/02/22] clopidogrel 75 mg tablet (Plavix) 75 mg PO QNOON 12/14/19 [History Confirmed 11/02/22] fenofibrate nanocrystallized 145 mg tablet 145 mg PO QHS cholesterol 12/14/19 [History Confirmed 11/02/22] gabapentin 600 mg tablet 600 mg PO TID neuropathy 12/14/19 [History Confirmed 11/02/22] insulin glargine 100 unit/mL (3 mL) subcutaneous pen (Lantus Solostar U-100 Insulin) 25 unit subcut QHS 12/14/19 [History Confirmed 11/02/22] levothyroxine 75 mcg tablet 75 mcg PO QAM thyroid 12/14/19 [History Confirmed 11/02/22] oxcarbazepine 300 mg tablet 300 mg PO BID neuropathy 12/14/19 [History Confirmed 11/02/22] sitagliptin phosphate 50 mg-metformin 500 mg tablet (Janumet) 2 tab PO DAILY diabetes 12/14/19 [History Confirmed 11/02/22] torsemide 10 mg tablet 10 mg PO QAM blood pressure 12/14/19 [History Confirmed 11/02/22] albuterol sulfate 90 mcg/actuation aerosol inhaler (Ventolin HFA) 2 puff inhalation QID PRN Shortness Of Breath Or Wheezing 12/17/19 [History Confirmed 11/02/22] aspirin 81 mg tablet,delayed release (Magno Low Dose Aspirin) 81 mg PO QHS 12/17/19 [History Confirmed 11/02/22] calcium carbonate 600 mg-vitamin D3 10 mcg (400 unit) tablet (Calcium 600 + D(3)) 1 tab PO DAILY.AC.LUNCH 12/17/19 [History Confirmed 11/02/22] cetirizine 10 mg tablet (Zyrtec) 10 mg PO QNOON allergies 12/17/19 [History Confirmed 11/02/22] evening primrose oil 500 mg capsule 1,000 mg PO QNOON 12/17/19 [History Confirmed 11/02/22] famotidine 10 mg tablet (Pepcid AC) 20 mg PO QHS PRN upset stomach 12/17/19 [History Confirmed 11/02/22] horse chestnut 300 mg capsule 300 mg PO QNOON circulation in legs 12/17/19 [History Confirmed 11/02/22] multivitamin (Daily-Sandy tablet) 1 tab PO QHS 12/17/19 [History Confirmed 11/02/22] naproxen 500 mg tablet (Naprosyn) 500 mg PO BID 12/17/19 [History Confirmed 11/02/22] niacin 500 mg tablet 500 mg PO QNOON 12/17/19 [History Confirmed 11/02/22] omega 2-zdu-nis-fish oil 1,000 mg (120 mg-180 mg) capsule (Fish Oil) 1 cap PO BID 12/17/19 [History Confirmed 11/02/22] vitamin B complex (B-Complex tablet) 1 tab PO QNOON 12/17/19 [History Confirmed 11/02/22] vitamin E 268 mg (400 unit) capsule 800 unit PO QAM 12/17/19 [History Confirmed 11/02/22] zinc 50 mg tablet 50 mg PO QNOON 12/17/19 [History Confirmed 11/02/22] tiotropium 2.5 mcg-olodaterol 2.5 mcg/actuation mist for inhalation (Stiolto Respimat) 2 puff inhalation QHS 09/18/20 [History Confirmed 11/02/22] hydrochlorothiazide 25 mg tablet 25 mg PO DAILY@1200 #30 tabs 10/06/20 [Rx Confirmed 11/02/22] lisinopril 40 mg tablet 40 mg PO DAILY@1200 30 days #30 tabs 10/06/20 [Rx Confirmed 11/02/22] metoprolol tartrate 25 mg tablet 25 mg PO TID #90 tabs 10/06/20 [Rx Confirmed 11/02/22] docusate sodium 100 mg tablet 100 mg PO DAILY PRN Constipation 12/29/21 [History Confirmed 11/02/22] omeprazole 20 mg capsule,delayed release 20 mg PO DAILY 12/29/21 [History Confirmed 11/02/22] tramadol 50 mg tablet 50 mg PO BID PRN Back Pain 02/22/22 [History Confirmed 11/02/22] polyethylene glycol 3350 17 gram oral powder packet (Miralax) 17 g PO DAILY 07/30/22 [History Confirmed 11/02/22] Objective - Height/Weight Height/Weight: Height 5 ft Weight 78.018 kg - Vital Signs Vital Signs: 11/02/22 09:46 Temperature 97.8 F Pulse Rate [Left Brachial] 64 Respiratory Rate 16 Blood Pressure [Left Arm] 179/79 H 02 Sat by Pulse Oximetry 95 Oxygen Delivery Method Room Air - Pain Generalized Left Pain Intensity: 0 Physical Exam Narrative: GENERAL APPEARANCE: Well developed, well nourished, in no acute distress. SKIN: Inspection of the skin reveals no rashes, ulcerations or petechiae. HEENT: The sclerae were anicteric and conjunctivae were pink and moist. EOMI, PERRLA. The oral mucosa is moist and clear. NECK: Supple and symmetric. There was no thyroid enlargement, and no tenderness,or masses were felt. LUNGS: Normal breath sounds on auscultation without rales, rhonchi, or crackles. CARDIOVASCULAR: S1 and S2, regular rate and rhythm, no murmurs, gallops, rubs. ABDOMEN: Soft, nontender, bowel sounds normal. No hepatosplenomegaly. No mass palpated. MUSCULOSKELETAL: Gait was normal. There was no tenderness or effusions noted. Muscle strength and tone were normal. EXTREMITIES: No cyanosis, clubbing or edema. NEUROLOGIC: Alert and oriented x 3. Normal affect. Gait was normal. Sensation totouch was normal. Results - Labs Labs: Diagram of Most Recent CBC and CMP 11/01/22 14:05 11/01/22 14:05 Labs - Last 7 Days 11/01/22 14:05: PHA Creatinine Clear 57.26, Sodium 136, Potassium 4.3, Chloride 100, Carbon Dioxide 28.9, Anion Gap 11.4, BUN 22, Creatinine 0.76, Est GFR (CKD-EPI) > 60.0, Glucose 118 H, Calcium 9.2, Iron 94, TIBC 372, Iron Saturation 25.3, Transferrin 266, Ferritin 90.9, Total Bilirubin 0.4, AST 22, ALT 18, Alkaline Phosphatase 38, Total Protein 6.0 L, Albumin 3.8, Globulin 2.2, Albumin/Globulin Ratio 1.7 11/01/22 14:05: Corrected WBC 6.3, Uncorrected WBC Count 6.3, RBC 3.92, Hgb 13.0, Hct 37.4, MCV 95.6, MCH 33.1, MCHC 34.7, RDW 13.6, Plt Count 266, MPV 7.1,Neut % (Auto) 60.6, Lymph % (Auto) 26.9, Greene % (Auto) 9.5, Eos % (Auto) 1.7, Baso % (Auto) 1.3, Nucleat RBC Rel Count 0.2, Neut # (Auto) 3.8, Lymph # (Auto) 1.7, Greene # (Auto) 0.6, Eos # (Auto) 0.1, Baso # (Auto) 0.1 Assessment and Plan (1) Iron deficiency anemia Iron deficiency anemia - she does not tolerate oral iron, as this previously caused severe constipation. In general, the patient feels better since the iron infusion; she notes better energy and improvement in restless legs. Most recent labs reveal normal, rather robust hemoglobin of 13.5; with iron saturation of 16% and ferritin?40. Status post: EGD/Colonoscopy in January 2022; with no acute findings other than chronic, inactive gastritis. Is not taking NSAIDS as previously advised by Dr. Noel. July 2022 iron levels low again, will plan to replete with additional IV Injectafer x 2 doses October 2022 hemoglobin and iron studies WNL. Will repeat in 3mo with follow-up - Time with Patient Time Spent with Patient (Follow Up Visit): 25 minutes Coordination of Care & Counseling Time: Greater than 50% of time spent with patient was for coordination of care (as documented) and [id number] counseling of patient and/or family. Dictated By: Taylor Tijerina APRN DD/ 1000 Signed By: <Electronically signed by CARMELA Tijerina> 11/02/22 [address] [facility] Work Phone: 1(735) 411-760003-28-2023 Progress note Author Taylor Tijerina [facility] August 10, 2022 11:00am Note Date/Time July 30, 2022 11: 10am [facility] [place] [id number] Hem/Onc Follow Up Note - OP Signed Patient: Nuvia Abraham MR#: [id number] : 1945 Acct:[id number] Age/Sex: 77 / F Type: REG RCR Copies to: Wily Prado MD~ Subjective Date/Time of Service: Date of Service: 07/30/2022 Time of Service: 11:10 Chief Complaint: 3 month follup up with labs HPI: Patient is a 76-year-old white lady seen with her daughter for hematologic surveillance on iron deficiency anemia. She received Injectafer in January 2022. She felt slightly better in terms of energy and much better in terms of restless leg syndrome symptoms. She continues to feel pretty good for the most part. No significant fatigue or changes in energy levels. Most recent iron studies show ferritin - 40 and iron saturation of 16%; with normal, robust hemoglobin of 13.5. She denies dyspnea, orthopnea, chest pain, dizziness or lightheadedness. She had repeated fall episodes previously, but nothing recently; denies with no syncope or near syncope. If mostly due to her lower extremity neuropathy and restless leg 07/30/22 She has fatigue and restless legs denies dark, tarry stool or other complaints hgb 13.5, iron sat low at 15.4% and ferritin 27.4 [facility] - Medical History Medical History: Medical History (Last Reviewed 01/12/22 @ 11:15 by Ritika Stiles) Arthritis mild hips Cellulitis left arm Cervical cancer COPD (chronic obstructive pulmonary disease) Diabetes Eczema ears bilateral GERD (gastroesophageal reflux disease) History of cataract not replaced yet Hyperlipidemia Hypertension Hypothyroidism Iron deficiency anemia Kidney stones Neuropathy Smoker - Surgical History Surgical History: Surgical History (Last Reviewed 01/12/22 @ 11:15 by Ritika Stiles) H/O carotid endarterectomy right, stent placed 2014 H/O: hysterectomy partial 1993 History of cholecystectomy 1999 - Family History Family History: Family History (Last Updated 01/12/22 @ 11:16 by Ritika Stiles) Mother Pancreatic cancer Diabetes Breast cancer Father Diabetes Heart disease Sister Breast cancer - Social History Smoking Status: Current every day smoker Tobacco Type: cigarettes Substance Use Type: None Social History Comments: I share with my daughter; it's my house. Home Medications & Allergies Allergies cimetidine [From Tagamet] Allergy (Verified 07/30/22 10:44) Diarrhea bacitracin [From Neosporin ([id number])] Adverse Reaction (Verified 07/30/22 10:44) Blister contact metal agent Adverse Reaction (Verified 07/30/22 10:44) Rash neomycin [From Neosporin ([id number]-[id number])] Adverse Reaction (Verified 07/30/22 10:44) Blister petrolatum,white [From Petroleum Jelly] Adverse Reaction (Verified 07/30/22 10:44) Blister polymyxin B [From Neosporin ([id number]-[id number])] Adverse Reaction (Verified 07/30/2309:44) Blister Home Medications atorvastatin 20 mg tablet 20 mg PO QHS 12/14/19 [History Confirmed 07/30/22] clopidogrel 75 mg tablet (Plavix) 75 mg PO QNOON 12/14/19 [History Confirmed 07/30/22] fenofibrate nanocrystallized 145 mg tablet 145 mg PO QHS cholesterol 12/14/19 [History Confirmed 07/30/22] gabapentin 600 mg tablet 600 mg PO TID neuropathy 12/14/19 [History Confirmed 07/30/22] insulin glargine 100 unit/mL (3 mL) subcutaneous pen (Lantus Solostar U-100 Insulin) 25 unit subcut QHS 12/14/19 [History Confirmed 07/30/22] levothyroxine 75 mcg tablet 75 mcg PO QAM thyroid 12/14/19 [History Confirmed 07/30/22] oxcarbazepine 300 mg tablet 300 mg PO BID neuropathy 12/14/19 [History Confirmed 07/30/22] sitagliptin phosphate 50 mg-metformin 500 mg tablet (Janumet) 2 tab PO DAILY diabetes 12/14/19 [History Confirmed 07/30/22] torsemide 10 mg tablet 10 mg PO QAM blood pressure 12/14/19 [History Confirmed 07/30/22] albuterol sulfate 90 mcg/actuation aerosol inhaler (Ventolin HFA) 2 puff inhalation QID PRN Shortness Of Breath Or Wheezing 12/17/19 [History Confirmed 07/30/22] aspirin 81 mg tablet,delayed release (Magno Low Dose Aspirin) 81 mg PO QHS 12/17/19 [History Confirmed 07/30/22] calcium carbonate 600 mg-vitamin D3 10 mcg (400 unit) tablet (Calcium 600 + D(3)) 1 tab PO DAILY.AC.LUNCH 12/17/19 [History Confirmed 07/30/22] cetirizine 10 mg tablet (Zyrtec) 10 mg PO QNOON allergies 12/17/19 [History Confirmed 07/30/22] evening primrose oil 500 mg capsule 1,000 mg PO QNOON 12/17/19 [History Confirmed 07/30/22] famotidine 10 mg tablet (Pepcid AC) 20 mg PO QHS PRN upset stomach 12/17/19 [History Confirmed 07/30/22] horse chestnut 300 mg capsule 300 mg PO QNOON circulation in legs 12/17/19 [History Confirmed 07/30/22] multivitamin (Daily-Sandy tablet) 1 tab PO QHS 12/17/19 [History Confirmed 07/30/22] naproxen 500 mg tablet (Naprosyn) 500 mg PO BID 12/17/19 [History Confirmed 07/30/22] niacin 500 mg tablet 500 mg PO QNOON 12/17/19 [History Confirmed 07/30/22] omega 7-ooa-icr-fish oil 1,000 mg (120 mg-180 mg) capsule (Fish Oil) 1 cap PO BID 12/17/19 [History Confirmed 07/30/22] vitamin B complex (B-Complex tablet) 1 tab PO QNOON 12/17/19 [History Confirmed 07/30/22] vitamin E 268 mg (400 unit) capsule 800 unit PO QAM 12/17/19 [History Confirmed 07/30/22] zinc 50 mg tablet 50 mg PO QNOON 12/17/19 [History Confirmed 07/30/22] tiotropium 2.5 mcg-olodaterol 2.5 mcg/actuation mist for inhalation (SocialTaggolto Respimat) 2 puff inhalation QHS 09/18/20 [History Confirmed 07/30/22] hydrochlorothiazide 25 mg tablet 25 mg PO DAILY@1200 #30 tabs 10/06/20 [Rx Confirmed 07/30/22] lisinopril 40 mg tablet 40 mg PO DAILY@1200 30 days #30 tabs 10/06/20 [Rx Confirmed 07/30/22] metoprolol tartrate 25 mg tablet 25 mg PO TID #90 tabs 10/06/20 [Rx Confirmed 07/30/22] docusate sodium 100 mg tablet 100 mg PO DAILY PRN Constipation 12/29/21 [History Confirmed 07/30/22] omeprazole 20 mg capsule,delayed release 20 mg PO DAILY 12/29/21 [History Confirmed 07/30/22] tramadol 50 mg tablet 50 mg PO BID PRN Back Pain 02/22/22 [History Confirmed 07/30/22] polyethylene glycol 3350 17 gram oral powder packet (Miralax) 17 g PO DAILY 07/30/22 [History Confirmed 07/30/22] Objective - Height/Weight Height/Weight: Height 5 ft Weight 81 kg - Vital Signs Vital Signs: 07/30/22 10:49 Temperature 97.7 F Pulse Rate [Left Brachial] 64 Respiratory Rate 16 Blood Pressure [Left Arm] 166/81 H 02 Sat by Pulse Oximetry 96 Oxygen Delivery Method Room Air - Pain Generalized Left Pain Intensity: 0 Physical Exam Narrative: GENERAL APPEARANCE: Well developed, well nourished, in no acute distress. SKIN: Inspection of the skin reveals no rashes, ulcerations or petechiae. HEENT: The sclerae were anicteric and conjunctivae were pink and moist. EOMI, PERRLA. The oral mucosa is moist and clear. NECK: Supple and symmetric. There was no thyroid enlargement, and no tenderness,or masses were felt. LUNGS: Normal breath sounds on auscultation without rales, rhonchi, or crackles. CARDIOVASCULAR: S1 and S2, regular rate and rhythm, no murmurs, gallops, rubs. ABDOMEN: Soft, nontender, bowel sounds normal. No hepatosplenomegaly. No mass palpated. MUSCULOSKELETAL: Gait was normal. There was no tenderness or effusions noted. Muscle strength and tone were normal. EXTREMITIES: No cyanosis, clubbing or edema. NEUROLOGIC: Alert and oriented x 3. Normal affect. Gait was normal. Sensation totouch was normal. Results - Labs Labs: Diagram of Most Recent CBC and CMP 07/22/22 12:20 01/12/22 12:41 Assessment and Plan (1) Iron deficiency anemia Iron deficiency anemia - she does not tolerate oral iron, as this previously caused severe constipation. In general, the patient feels better since the iron infusion; she notes better energy and improvement in restless legs. Most recent labs reveal normal, rather robust hemoglobin of 13.5; with iron saturation of 16% and ferritin?40. Status post: EGD/Colonoscopy in January 2022; with no acute findings other than chronic, inactive gastritis. Is not taking NSAIDS as previously advised by Dr. Noel. July 2022 iron levels low again, will plan to replete with additional IV Injectafer x 2 doses Repeat cbc, cmp, iron studies in 3 months, sooner as needed - Time with Patient Time Spent with Patient (Follow Up Visit): 25 minutes Coordination of Care & Counseling Time: Greater than 50% of time spent with patient was for coordination of care (as documented) and [id number] counseling of patient and/or family. Dictated By: Taylor Tijerina APRN DD/ [id number] Signed By: <Electronically signed by CARMELA Tijerina> 08/10/22 [address] [facility] Work Phone: [phone]) 820-240112-12-2022 Progress note Author mEily Degroot [facility] April 26, 2022 3:23pm Note Date/Time April 26, 2022 3:16pm [facility] [place] [id number] Hem/Onc Follow Up Note - OP Signed Patient: Nuvia Abraham MR#: [id number] : 1945 Acct:[id number] Age/Sex: 76 / F Type: REG RCR Copies to: Wily Prado MD~ Subjective Date/Time of Service: Date of Service: 04/26/2022 Time of Service: 15:14 Chief Complaint: Patient is here today for 2 month follow up visit for iron deficiency anemia and go over labs HPI: Patient is a 76-year-old white lady seen with her daughter for hematologic surveillance on iron deficiency anemia. She received Injectafer in January 2022. She felt slightly better in terms of energy and much better in terms of restless leg syndrome symptoms. She continues to feel pretty good for the most part. No significant fatigue or changes in energy levels. Most recent iron studies show ferritin - 40 and iron saturation of 16%; with normal, robust hemoglobin of 13.5. She denies dyspnea, orthopnea, chest pain, dizziness or lightheadedness. She had repeated fall episodes previously, but nothing recently; denies with no syncope or near syncope. If mostly due to her lower extremity neuropathy and restless leg - Summary of Therapies Summary of Therapies: Injectafer 750 mg IV x 2 doses: 01/28/2022 and 02/04/2022 Subjective/ROS - Narrative: CONSTITUTIONAL: No weight loss, fever, chills, weakness or fatigue. HEENT: Eyes: No visual loss, blurred vision, double vision or yellow sclerae. Ears, Nose, Throat: No hearing loss, epistaxis. SKIN: No rash or itching. CARDIOVASCULAR: No chest pain, chest pressure or chest discomfort. No palpitations or edema. RESPIRATORY: No shortness of breath, cough or hemoptysis. GASTROINTESTINAL: No dysphagia, nausea, vomiting or diarrhea. No abdominal pain,melena, hematochezia. GENITOURINARY: No dysuria, urinary frequency or urgency. NEUROLOGICAL: No headache, dizziness, syncope, numbness or tingling in the extremities. MUSCULOSKELETAL: No muscle, back pain, joint pain or stiffness. HEMATOLOGIC: No bleeding or bruising. LYMPHATICS: No enlarged nodes. PSYCHIATRIC: No history of depression or anxiety. ENDOCRINOLOGIC: No reports of sweating, cold or heat intolerance. No polyuria orpolydipsia. ALLERGIES: No history of asthma, hives, eczema or rhinitis. [facility] - Medical History Medical History: Medical History (Last Reviewed 01/12/22 @ 11:15 by Ritika Stiles) Arthritis mild hips Cellulitis left arm Cervical cancer COPD (chronic obstructive pulmonary disease) Diabetes Eczema ears bilateral GERD (gastroesophageal reflux disease) History of cataract not replaced yet Hyperlipidemia Hypertension Hypothyroidism Iron deficiency anemia Kidney stones Neuropathy Smoker - Surgical History Surgical History: Surgical History (Last Reviewed 01/12/22 @ 11:15 by Ritika Stiles) H/O carotid endarterectomy right, stent placed 2014 H/O: hysterectomy partial 1992 History of cholecystectomy 1999 - Family History Family History: Family History (Last Updated 01/12/22 @ 11:16 by Ritika Stiles) Mother Pancreatic cancer Diabetes Breast cancer Father Diabetes Heart disease Sister Breast cancer - Social History Smoking Status: Current every day smoker Tobacco Type: cigarettes Substance Use Type: None Social History Comments: I share with my daughter; it's my house. Home Medications & Allergies Allergies cimetidine [From Tagamet] Allergy (Verified 04/26/22 09:36) Diarrhea bacitracin [From Neosporin ([id number]-mlr-aaral)] Adverse Reaction (Verified 04/26/22 09:36) Blister contact metal agent Adverse Reaction (Verified 04/26/22 09:36) Rash neomycin [From Neosporin ([id number]-syv-ykhcx)] Adverse Reaction (Verified 04/26/22 09:36) Blister petrolatum,white [From Petroleum Jelly] Adverse Reaction (Verified 04/26/22 09:36) Blister polymyxin B [From Neosporin ([id number]-yau-[id number])] Adverse Reaction (Verified 04/26/2209:36) Blister Home Medications atorvastatin 20 mg tablet 20 mg PO QHS 12/14/19 [History Confirmed 04/26/22] clopidogrel 75 mg tablet (Plavix) 75 mg PO QNOON 12/14/19 [History Confirmed 04/26/22] fenofibrate nanocrystallized 145 mg tablet 145 mg PO QHS cholesterol 12/14/19 [History Confirmed 04/26/22] gabapentin 600 mg tablet 600 mg PO TID neuropathy 12/14/19 [History Confirmed 04/26/22] insulin glargine 100 unit/mL (3 mL) subcutaneous pen (Lantus Solostar U-100 Insulin) 25 unit subcut QHS 12/14/19 [History Confirmed 04/26/22] levothyroxine 75 mcg tablet 75 mcg PO QAM thyroid 12/14/19 [History Confirmed 04/26/22] oxcarbazepine 300 mg tablet 300 mg PO BID neuropathy 12/14/19 [History Confirmed 04/26/22] sitagliptin phosphate 50 mg-metformin 500 mg tablet (Janumet) 2 tab PO DAILY diabetes 12/14/19 [History Confirmed 04/26/22] torsemide 10 mg tablet 10 mg PO QAM blood pressure 12/14/19 [History Confirmed 04/26/22] albuterol sulfate 90 mcg/actuation aerosol inhaler (Ventolin HFA) 2 puff inhalation QID PRN Shortness Of Breath Or Wheezing 12/17/19 [History Confirmed 04/26/22] aspirin 81 mg tablet,delayed release (Magno Low Dose Aspirin) 81 mg PO QHS 12/17/19 [History Confirmed 04/26/22] calcium carbonate 600 mg-vitamin D3 10 mcg (400 unit) tablet (Calcium 600 + D(3)) 1 tab PO DAILY.AC.LUNCH 12/17/19 [History Confirmed 04/26/22] cetirizine 10 mg tablet (Zyrtec) 10 mg PO QNOON allergies 12/17/19 [History Confirmed 04/26/22] evening primrose oil 500 mg capsule 1,000 mg PO QNOON 12/17/19 [History Confirmed 04/26/22] famotidine 10 mg tablet (Pepcid AC) 20 mg PO QHS PRN upset stomach 12/17/19 [History Confirmed 04/26/22] horse chestnut 300 mg capsule 300 mg PO QNOON circulation in legs 12/17/19 [History Confirmed 04/26/22] melatonin 10 mg tablet 5 mg PO HS sleep 12/17/19 [History Confirmed 04/26/22] multivitamin (Daily-Sandy tablet) 1 tab PO QHS 12/17/19 [History Confirmed 04/26/22] naproxen 500 mg tablet (Naprosyn) 500 mg PO BID 12/17/19 [History Confirmed 04/26/22] niacin 500 mg tablet 500 mg PO QNOON 12/17/19 [History Confirmed 04/26/22] omega 1-xdj-zdl-fish oil 1,000 mg (120 mg-180 mg) capsule (Fish Oil) 1 cap PO BID 12/17/19 [History Confirmed 04/26/22] vitamin B complex (B-Complex tablet) 1 tab PO QNOON 12/17/19 [History Confirmed 04/26/22] vitamin E 268 mg (400 unit) capsule 800 unit PO QAM 12/17/19 [History Confirmed 04/26/22] zinc 50 mg tablet 50 mg PO QNOON 12/17/19 [History Confirmed 04/26/22] tiotropium 2.5 mcg-olodaterol 2.5 mcg/actuation mist for inhalation (Stiolto Respimat) 2 puff inhalation QHS 09/18/20 [History Confirmed 04/26/22] hydrochlorothiazide 25 mg tablet 25 mg PO DAILY@1200 #30 tabs 10/06/20 [Rx Confirmed 04/26/22] lisinopril 40 mg tablet 40 mg PO DAILY@1200 30 days #30 tabs 10/06/20 [Rx Confirmed 04/26/22] metoprolol tartrate 25 mg tablet 25 mg PO TID #90 tabs 10/06/20 [Rx Confirmed 04/26/22] docusate sodium 100 mg tablet 100 mg PO DAILY PRN Constipation 12/29/21 [History Confirmed 04/26/22] omeprazole 20 mg capsule,delayed release 20 mg PO DAILY 12/29/21 [History Confirmed 04/26/22] tramadol 50 mg tablet 50 mg PO BID PRN Back Pain 02/22/22 [History Confirmed 04/26/22] Objective - Resuscitation Status Resuscitation Status: Full Code - Height/Weight Height/Weight: Height 5 ft Weight 80.4 kg - Vital Signs Vital Signs: 04/26/22 09:37 Temperature 97.8 F Pulse Rate [Left Brachial] 60 Respiratory Rate 16 Blood Pressure [Left Arm] 145/71 H 02 Sat by Pulse Oximetry 93 L Oxygen Delivery Method Room Air - Pain Generalized Left Pain Intensity: 0 Physical Exam Narrative: GENERAL APPEARANCE: Well developed, well nourished, in no acute distress. SKIN: Inspection of the skin reveals no rashes, ulcerations or petechiae. HEENT: The sclerae were anicteric and conjunctivae were pink and moist. EOMI, PERRLA. The oral mucosa is moist and clear. NECK: Supple and symmetric. There was no thyroid enlargement, and no tenderness,or masses were felt. CHEST: Normal contour without any kyphoscoliosis. LUNGS: Normal breath sounds on auscultation without rales, rhonchi, or crackles. CARDIOVASCULAR: S1 and S2, regular rate and rhythm, no murmurs, gallops, rubs. ABDOMEN: Soft, nontender, bowel sounds normal. No hepatosplenomegaly. No mass palpated. LYMPH NODES: No lymphadenopathy was appreciated in the neck, axillae or groin. MUSCULOSKELETAL: Gait was normal. There was no tenderness or effusions noted. Muscle strength and tone were normal. EXTREMITIES: No cyanosis, clubbing or edema. NEUROLOGIC: Alert and oriented x 3. Normal affect. Gait was normal. Sensation totouch was normal. - ECOG Performance Status ECOG Score: 1 Results - Labs Labs: Diagram of Most Recent CBC and CMP 04/23/22 12:05 01/12/22 12:41 Labs - Last 7 Days 04/23/22 12:05: Corrected WBC 7.0, Uncorrected WBC Count 7.0, RBC 4.51, Hgb 13.5, Hct 40.2, MCV 89.2, MCH 29.8, MCHC 33.4, RDW 16.9 H, Plt Count 298, MPV 6.9, Neut % (Auto) 68.2, Lymph % (Auto) 20.8, Greene % (Auto) 6.9, Eos % (Auto) 3.3, Baso % (Auto) 0.8, Nucleat RBC Rel Count 0.1, Neut # (Auto) 4.7, Lymph # (Auto) 1.4, Greene # (Auto) 0.5, Eos # (Auto) 0.2, Baso # (Auto) 0.1, Platelet Estimate Normal, Plt Morphology Comment Normal, RBC Morphology N/A, Hypochromasia Moderate, Anisocytosis Moderate, Microcytosis Slight, Ovalocytes Slight, Stomatocytes Slight 04/23/22 11:52: Iron 73, TIBC 433, Iron Saturation 16.0 L, Transferrin 309, Ferritin 40.0 Assessment and Plan (1) Iron deficiency anemia In general, the patient feels better since the iron infusion; she notes better energy and improvement in restless legs. Most recent labs reveal normal, rather robust hemoglobin of 13.5; with iron saturation of 16% and ferritin?40. Status post: EGD/Colonoscopy in January 2022; with no acute findings other than chronic, inactive gastritis. She has since stopped taking NSAIDS as previously advised by Dr. Noel. Will follow clinically, see patient back in ~ 3-4 months to identify need and frequency of iron. - she does not tolerate oral iron, as this previously caused severe constipation. - repeat labs and iron studies in 3 months; sooner if new issues or concerns arise. - Time with Patient Time Spent with Patient (Follow Up Visit): 25 minutes Coordination of Care & Counseling Time: Greater than 50% of time spent with patient was for coordination of care (as documented) and [id number] counseling of patient and/or family. Dictated By: Emily Degroot APRN DD/ 151 Signed By: <Electronically signed by CARMELA Degroot> 04/26/22 [address] [facility] Work Phone: [phone]) 755-388910-10-2022 Progress note Author Marisabel Noel [facility] February 22, 2022 12:49pm Note Date/Time February 22, 2022 1 2:45pm [facility] [place] [id number] Hem/Onc Follow Up Note - OP Signed Patient: Nuvia Abraham MR#: [id number] : 1945 Acct:[id number] Age/Sex: 76 / F Type: REG RCR Copies to: Wily Prado MD~ Subjective Date/Time of Service: Date of Service: 02/22/2022 Time of Service: 12:43 Chief Complaint: Patient is here today for a 5 week follow up visit for iron deficiency anemia and go over labs HPI: Patient is a 76-year-old white lady seen with her daughter for hematologic surveillance on iron deficiency anemia. She received 2 weekly infusions of Injectafer last 1 was 2 weeks ago. She felt slightly better in terms of energy and much better in terms of restless leg syndrome symptoms. She denies dyspnea,orthopnea, chest pain, dizziness or lightheadedness. She had repeated fall episodes with no syncope or near syncope. If mostly due to her lower extremity neuropathy and restless leg Subjective/ROS - Narrative: CONSTITUTIONAL: No weight loss, fever, chills, weakness or fatigue. HEENT: Eyes: No visual loss, blurred vision, double vision or yellow sclerae. Ears, Nose, Throat: No hearing loss, epistaxis. SKIN: No rash or itching. CARDIOVASCULAR: No chest pain, chest pressure or chest discomfort. No palpitations or edema. RESPIRATORY: No shortness of breath, cough or hemoptysis. GASTROINTESTINAL: No dysphagia, nausea, vomiting or diarrhea. No abdominal pain,melena, hematochezia. GENITOURINARY: No dysuria, urinary frequency or urgency. NEUROLOGICAL: No headache, dizziness, syncope, numbness or tingling in the extremities. MUSCULOSKELETAL: No muscle, back pain, joint pain or stiffness. HEMATOLOGIC: No bleeding or bruising. LYMPHATICS: No enlarged nodes. PSYCHIATRIC: No history of depression or anxiety. ENDOCRINOLOGIC: No reports of sweating, cold or heat intolerance. No polyuria orpolydipsia. ALLERGIES: No history of asthma, hives, eczema or rhinitis. [facility] - Medical History Medical History: Medical History (Last Reviewed 01/12/22 @ 11:15 by Ritika Stiles) Arthritis mild hips Cellulitis left arm Cervical cancer COPD (chronic obstructive pulmonary disease) Diabetes Eczema ears bilateral GERD (gastroesophageal reflux disease) History of cataract not replaced yet Hyperlipidemia Hypertension Hypothyroidism Iron deficiency anemia Kidney stones Neuropathy Smoker - Surgical History Surgical History: Surgical History (Last Reviewed 01/12/22 @ 11:15 by Ritika Stiles) H/O carotid endarterectomy right, stent placed 2014 H/O: hysterectomy partial 1992 History of cholecystectomy 1999 - Family History Family History: Family History (Last Updated 01/12/22 @ 11:16 by Ritika Stiles) Mother Pancreatic cancer Diabetes Breast cancer Father Diabetes Heart disease Sister Breast cancer - Social History Smoking Status: Current every day smoker Tobacco Type: cigarettes Substance Use Type: None Social History Comments: I share with my daughter; it's my house. Home Medications & Allergies Allergies cimetidine [From Tagamet] Allergy (Verified 02/22/22 11:05) Diarrhea bacitracin [From Neosporin ([id number]-mho-bpkyy)] Adverse Reaction (Verified 02/22/22 11:05) Blister contact metal agent Adverse Reaction (Verified 02/22/22 11:05) Rash neomycin [From Neosporin ([id number]-irs-qawly)] Adverse Reaction (Verified 02/22/22 11:05) Blister petrolatum,white [From Petroleum Jelly] Adverse Reaction (Verified 02/22/22 11:05) Blister polymyxin B [From Neosporin ([id number]-keryq)] Adverse Reaction (Verified 02/22/2211:05) Blister Home Medications atorvastatin 20 mg tablet 20 mg PO QHS 12/14/19 [History Confirmed 02/22/22] clopidogrel 75 mg tablet (Plavix) 75 mg PO QNOON 12/14/19 [History Confirmed 02/22/22] fenofibrate nanocrystallized 145 mg tablet 145 mg PO QHS cholesterol 12/14/19 [History Confirmed 02/22/22] gabapentin 600 mg tablet 600 mg PO TID neuropathy 12/14/19 [History Confirmed 02/22/22] insulin glargine 100 unit/mL (3 mL) subcutaneous pen (Lantus Solostar U-100 Insulin) 25 unit subcut QHS 12/14/19 [History Confirmed 02/22/22] levothyroxine 75 mcg tablet 75 mcg PO QAM thyroid 12/14/19 [History Confirmed 02/22/22] oxcarbazepine 300 mg tablet 300 mg PO BID neuropathy 12/14/19 [History Confirmed 02/22/22] sitagliptin 50 mg-metformin 500 mg tablet (Janumet) 2 tab PO DAILY diabetes 12/14/19 [History Confirmed 02/22/22] torsemide 10 mg tablet 10 mg PO QAM blood pressure 12/14/19 [History Confirmed 02/22/22] albuterol sulfate 90 mcg/actuation aerosol inhaler (Ventolin HFA) 2 puff inhalation QID PRN Shortness Of Breath Or Wheezing 12/17/19 [History Confirmed 02/22/22] aspirin 81 mg tablet,delayed release (Magno Low Dose Aspirin) 81 mg PO QHS 12/17/19 [History Confirmed 02/22/22] calcium carbonate 600 mg-vitamin D3 10 mcg (400 unit) tablet (Calcium 600 + D(3)) 1 tab PO DAILY.AC.LUNCH 12/17/19 [History Confirmed 02/22/22] cetirizine 10 mg tablet (Zyrtec) 10 mg PO QNOON allergies 12/17/19 [History Confirmed 02/22/22] evening primrose oil 500 mg capsule 1,000 mg PO QNOON 12/17/19 [History Confirmed 02/22/22] famotidine 10 mg tablet (Pepcid AC) 20 mg PO QHS PRN upset stomach 12/17/19 [History Confirmed 02/22/22] horse chestnut 300 mg capsule 300 mg PO QNOON circulation in legs 12/17/19 [History Confirmed 02/22/22] melatonin 10 mg tablet 5 mg PO HS sleep 12/17/19 [History Confirmed 02/22/22] multivitamin (Daily-Sandy tablet) 1 tab PO QHS 12/17/19 [History Confirmed 02/22/22] naproxen 500 mg tablet (Naprosyn) 500 mg PO BID 12/17/19 [History Confirmed 02/22/22] niacin 500 mg tablet 500 mg PO QNOON 12/17/19 [History Confirmed 02/22/22] omega 3-cll-twq-fish oil 1,000 mg (120 mg-180 mg) capsule (Fish Oil) 1 cap PO BID 12/17/19 [History Confirmed 02/22/22] vitamin B complex (B-Complex tablet) 1 tab PO QNOON 12/17/19 [History Confirmed 02/22/22] vitamin E 268 mg (400 unit) capsule 800 unit PO QAM 12/17/19 [History Confirmed 02/22/22] zinc 50 mg tablet 50 mg PO QNOON 12/17/19 [History Confirmed 02/22/22] tiotropium 2.5 mcg-olodaterol 2.5 mcg/actuation mist for inhalation (Stiolto Respimat) 2 puff inhalation QHS 09/18/20 [History Confirmed 02/22/22] hydrochlorothiazide 25 mg tablet 25 mg PO DAILY@1200 #30 tabs 10/06/20 [Rx Confirmed 02/22/22] lisinopril 40 mg tablet 40 mg PO DAILY@1200 30 days #30 tabs 10/06/20 [Rx Confirmed 02/22/22] metoprolol tartrate 25 mg tablet 25 mg PO TID #90 tabs 10/06/20 [Rx Confirmed 02/22/22] docusate sodium 100 mg tablet 100 mg PO DAILY PRN Constipation 12/29/21 [History Confirmed 02/22/22] omeprazole 20 mg capsule,delayed release 20 mg PO DAILY 12/29/21 [History Confirmed 02/22/22] tramadol 50 mg tablet 50 mg PO BID PRN Back Pain 02/22/22 [History Confirmed 02/22/22] Objective - Height/Weight Height/Weight: Height 5 ft Weight 80.739 kg - Vital Signs Vital Signs: 02/22/22 11:08 Temperature 98.0 F Pulse Rate [Left Brachial] 65 Respiratory Rate 16 Blood Pressure [Left Arm] 163/56 H 02 Sat by Pulse Oximetry 95 Oxygen Delivery Method Nasal Cannula - Pain Generalized Left Pain Intensity: 4 Physical Exam Narrative: GENERAL APPEARANCE: Well developed, well nourished, in no acute distress. SKIN: Inspection of the skin reveals no rashes, ulcerations or petechiae. HEENT: The sclerae were anicteric and conjunctivae were pink and moist. EOMI, PERRLA. The oral mucosa is moist and clear. NECK: Supple and symmetric. There was no thyroid enlargement, and no tenderness,or masses were felt. CHEST: Normal contour without any kyphoscoliosis. LUNGS: Normal breath sounds on auscultation without rales, rhonchi, or crackles. CARDIOVASCULAR: S1 and S2, regular rate and rhythm, no murmurs, gallops, rubs. ABDOMEN: Soft, nontender, bowel sounds normal. No hepatosplenomegaly. No mass palpated. LYMPH NODES: No lymphadenopathy was appreciated in the neck, axillae or groin. MUSCULOSKELETAL: Gait was normal. There was no tenderness or effusions noted. Muscle strength and tone were normal. EXTREMITIES: No cyanosis, clubbing or edema. NEUROLOGIC: Alert and oriented x 3. Normal affect. Gait was normal. Sensation totouch was normal. - ECOG Performance Status ECOG Score: 1 Results - Labs Labs: Diagram of Most Recent CBC and CMP 02/18/22 14:13 01/12/22 12:41 Labs - Last 7 Days 02/18/22 14:13: Iron 116, TIBC 416, Iron Saturation 27.0, Transferrin 297, Ferritin 229.8 02/18/22 14:13: Corrected WBC 4.5, Uncorrected WBC Count 4.5, RBC 4.49, Hgb 11.1L, Hct 35.2, MCV 78.3 L, MCH 24.7, MCHC 31.6 L, RDW 38.8 H, Plt Count 363, MPV 8.4, Neut % (Auto) N/A, Lymph % (Auto) N/A, Greene % (Auto) N/A, Eos % (Auto) N/A,Baso % (Auto) N/A, Neut # (Auto) N/A, Lymph # (Auto) N/A, Greene # (Auto) N/A, Eos# (Auto) N/A, Baso # (Auto) N/A, Nucleated RBC % (auto) 0.1, Band Neutrophils % 2, Lymphocytes % 21, Monocytes % 6, Basophils % 1, Segmented Neutrophils 68, Reactive Lymphocytes 2, Platelet Estimate Normal, Plt Morphology Comment Normal,RBC Morphology N/A, Hypochromasia Marked, Anisocytosis Marked, Microcytosis Slight, Macrocytosis Moderate, Stomatocytes Slight Assessment and Plan (1) Iron deficiency anemia Patient feels better since the iron infusion. Although she said slightly betterrelated to her allergy but it is too early since the infusions were given 10 days ago also. On the other hand she already noticed significant improvement inher symptoms related to the restless leg syndrome. Patient's takes nonsteroidalanti-inflammatory medications so advised her not to. She does not have symptomsto suggest celiac disease. Instructed to return to office in 8 weeks with CBC, ferritin and TIBC. If everything normalizes as hopefully anticipated return to office as needed - Time with Patient Coordination of Care & Counseling Time: Greater than 50% of time spent with patient was for coordination of care (as documented) and [id number] counseling of patient and/or family. Dictated By: Marisabel Noel MD DD/ 124 Signed By: <Electronically signed by Marisabel Noel MD> 02/22/22 1249 [facility] Work Phone: [phone] 910-716910-05-2022 History of Present illness Narrative* Cassidy Julio MD - 02/17/2022 9:17 AM EDT Images from the original note were not included. EMERGENCY TRIAGE, TREAT AND TRANSPORT (ET3) DOCUMENTATION OF TELEHEALTH VISIT Date / Time: 02/17/2022916 Name: Nuvia Abraham : 1945 SSN: [id number] EMS Agency: [facility] [x] Verbal consent obtained [] Implied consent - patient with potential emergency medical condition requiring assessment of capacity to refuse treatment and/or transport VITAL SIGNS: see flowsheet documentation Reason for Telehealth Visit: Chief Complaint Patient presents with Fall fall History of Present Ilness: Per EMS Reports mechanical fall this Am. Denies head inj loc. No injuries Has capacity Would like to refuse transport Additional pertinent PMHx, SocHx, FamHx: DM HTN COPD Review of Systems: Unable to obtain Exam: Unable to complete Medical Decision Making: Standard Refusal done by EMS Unable to complete full tele health assessment d/t connection issues. Disposition Supported by Telehealth Assessment: ET3 transport decisions: Refused transport EMS Disposition Reported: Same ET3 Encounter Completed by: Cassidy Julio MD documented in this [id number] Consult note Author Maciel Sofia [facility] January 19, 2022 2:52pm Note Date/Time January 12, 2022 12 :54pm [facility] [place] [id number] Hem/Onc Consult Note - OP Signed Patient: Nuvia Abraham MR#: [id number] : 1945 Acct:[id number] Age/Sex: 76 / F Type: REG RCR Copies to: Wily Prado MD~ HPI Date/Time of Service: Date of Service: 01/12/2022 Time of Service: 12:41 Referring Provider/PCP: Referring Provider: Wily Prado MD PCP: Wily Prado MD - History of Present Illness Reason for Consultation: Iron deficiency anemia Chief Complaint: Patient is here for a referral from Dr Prado for iron deficiencyanemia, outside labs. Patient reports fatigue and weakness. HPI: Nuvia is a 76yr old female with a history of hyperlipidemia, hypothyroidism, HTN, COPD, diabetes, carotid artery stenosis, arthritis, cervical cancer, GERD, kidney stones, neuropathy, Eczema and iron deficiency anemia. Surgical history includes hysterectomy, cholecystectomy, right carotid angioplasty and stent, andleft carotid endarterectomy with Dacron patch angioplasty. Her family history ofcancer includes her mother with breast and pancreatic cancer and her sister withbreast cancer. She does not believe any genetic testing has been done, and declines this for now. She is referred from Dr. Wily Prado for iron deficiency anemia. Most recent labsfrom November 2021 reveal hemoglobin of 7.4 with low MCV and MCH, and normal WBC andplatelets. Unable to locate recent iron studies from [facility]. She will have a colonoscopy and EGD in one week (beginning of January). On exam, she is significantly fatigued and feels weak. She denies any pica or dark/tarry stool, but admits to restless legs that she has had for years. She also notes BLE neuropathy from her diabetes, as well as nausea without vomiting and intermittent constipation. The only time she gets heartburn is if she does not take her medications with food. Otherwise she denies dyspnea, chest pain, new bone pain, diarrhea, fevers, chills, sweats, or unintentional weight loss. [facility] - Medical History Medical History: Medical History (Last Reviewed 01/12/22 @ 11:15 by Ritika Stiles) Arthritis mild hips Cellulitis left arm Cervical cancer COPD (chronic obstructive pulmonary disease) Diabetes Eczema ears bilateral GERD (gastroesophageal reflux disease) History of cataract not replaced yet Hyperlipidemia Hypertension Hypothyroidism Iron deficiency anemia Kidney stones Neuropathy Smoker - Surgical History Surgical History: Surgical History (Last Reviewed 01/12/22 @ 11:15 by Ritika Stiles) H/O carotid endarterectomy right, stent placed 2014 H/O: hysterectomy partial 1992 History of cholecystectomy 1999 - Family History Family History: Family History (Last Updated 01/12/22 @ 11:16 by Ritika Stiles) Mother Pancreatic cancer Diabetes Breast cancer Father Diabetes Heart disease Sister Breast cancer - Social History Smoking Status: Current every day smoker Tobacco Type: cigarettes Substance Use Type: None Social History Comments: I share with my daughter; it's my house. Home Medications & Allergies Allergies cimetidine [From Tagamet] Allergy (Verified 01/12/22 11:14) Diarrhea bacitracin [From Neosporin ([id number])] Adverse Reaction (Verified 01/12/22 11:14) Blister contact metal agent Adverse Reaction (Verified 01/12/22 11:14) Rash neomycin [From Neosporin ([id number])] Adverse Reaction (Verified 01/12/22 11:14) Blister petrolatum,white [From Petroleum Jelly] Adverse Reaction (Verified 01/12/22 11:14) Blister polymyxin B [From Neosporin ([id number])] Adverse Reaction (Verified 01/12/2211:14) Blister Home Medications atorvastatin 20 mg tablet 20 mg PO QHS 12/14/19 [History Confirmed 01/12/22] clopidogrel 75 mg tablet (Plavix) 75 mg PO QNOON 12/14/19 [History Confirmed 01/12/22] fenofibrate nanocrystallized 145 mg tablet 145 mg PO QHS cholesterol 12/14/19 [History Confirmed 01/12/22] gabapentin 600 mg tablet 600 mg PO TID neuropathy 12/14/19 [History Confirmed 01/12/22] insulin glargine 100 unit/mL (3 mL) subcutaneous pen (Lantus Solostar U-100 Insulin) 25 unit subcut QHS 12/14/19 [History Confirmed 01/12/22] levothyroxine 75 mcg tablet 75 mcg PO QAM thyroid 12/14/19 [History Confirmed 01/12/22] oxcarbazepine 300 mg tablet 300 mg PO BID neuropathy 12/14/19 [History Confirmed 01/12/22] sitagliptin 50 mg-metformin 500 mg tablet (Janumet) 2 tab PO DAILY diabetes 12/14/19 [History Confirmed 01/12/22] torsemide 10 mg tablet 10 mg PO QAM blood pressure 12/14/19 [History Confirmed 01/12/22] albuterol sulfate 90 mcg/actuation aerosol inhaler (Ventolin HFA) 2 puff inhalation QID PRN Shortness Of Breath Or Wheezing 12/17/19 [History Confirmed 01/12/22] aspirin 81 mg tablet,delayed release (Magno Low Dose Aspirin) 81 mg PO QHS 12/17/19 [History Confirmed 01/12/22] calcium carbonate 600 mg-vitamin D3 10 mcg (400 unit) tablet (Calcium 600 + D(3)) 1 tab PO DAILY.AC.LUNCH 08/03/20 [History Confirmed 01/12/22] cetirizine 10 mg tablet (Zyrtec) 10 mg PO QNOON allergies 12/17/19 [History Confirmed 01/12/22] evening primrose oil 500 mg capsule 1,000 mg PO QNOON 12/17/19 [History Confirmed 01/12/22] famotidine 10 mg tablet (Pepcid AC) 20 mg PO QHS PRN upset stomach 12/17/19 [History Confirmed 01/12/22] horse chestnut 300 mg capsule 300 mg PO QNOON circulation in legs 12/17/19 [History Confirmed 01/12/22] melatonin 10 mg tablet 5 mg PO HS sleep 12/17/19 [History Confirmed 01/12/22] multivitamin (Daily-Sandy) 1 tab PO QHS 12/17/19 [History Confirmed 01/12/22] naproxen 500 mg tablet (Naprosyn) 500 mg PO BID 12/17/19 [History Confirmed 01/12/22] niacin 500 mg tablet 500 mg PO QNOON 12/17/19 [History Confirmed 01/12/22] omega 1-yrr-gdi-fish oil 1,000 mg (120 mg-180 mg) capsule (Fish Oil) 1 cap PO BID 12/17/19 [History Confirmed 01/12/22] vitamin B complex (B-Complex) 1 tab PO QNOON 12/17/19 [History Confirmed 01/12/22] vitamin E 268 mg (400 unit) capsule 800 unit PO QAM 12/17/19 [History Confirmed 01/12/22] zinc 50 mg tablet 50 mg PO QNOON 12/17/19 [History Confirmed 01/12/22] tiotropium 2.5 mcg-olodaterol 2.5 mcg/actuation mist for inhalation (Stiolto Respimat) 2 puff inhalation QHS 09/18/20 [History Confirmed 01/12/22] hydrochlorothiazide 25 mg tablet 25 mg PO DAILY@1200 #30 tabs 10/06/20 [Rx Confirmed 01/12/22] lisinopril 40 mg tablet 40 mg PO DAILY@1200 30 days #30 tabs 10/06/20 [Rx Confirmed 01/12/22] metoprolol tartrate 25 mg tablet 25 mg PO TID #90 tabs 10/06/20 [Rx Confirmed 01/12/22] docusate sodium 100 mg tablet 100 mg PO DAILY PRN Constipation 12/29/21 [History Confirmed 01/12/22] omeprazole 20 mg capsule,delayed release 20 mg PO DAILY 12/29/21 [History Confirmed 01/12/22] Objective - Height/Weight Height/Weight: Height 5 ft Weight 87.861 kg - Vital Signs Vital Signs: 01/12/22 11:24 Temperature 97.9 F Pulse Rate [Left Brachial] 58 L Respiratory Rate 18 Blood Pressure [Left Arm] 169/63 H 02 Sat by Pulse Oximetry 97 Oxygen Delivery Method Room Air - Pain Generalized Left Pain Intensity: 4 Physical Exam Narrative: CONSTITUTIONAL: The patient is in no acute distress, but falling asleep during exam. Patient is examined in wheelchair HEAD / FACE: Normocephalic. EYES: Pupils are equal and reactive to light. Conjunctivae and lids are benign in appearance. Ocular movement intact. No scleral icterus. EARS: Hearing grossly intact. NOSE / MOUTH / THROAT: Nose, mouth, tongue and oropharynx are benign in appearance. No signs of inflammation. NECK / THYROID: Neck is supple. Thyroid is symmetrical, without thyromegaly, masses or palpable nodules. RESPIRATORY: Normal to inspection. Lungs clear to auscultation and percussion. No wheezing, rhonchi, rales or rubs. Normal effort. CARDIOVASCULAR: Regular rate and rhythm. No murmurs, gallops, or rubs. ABDOMEN: Bowel sounds normoactive. Soft, nontender and non-distended. No hepatosplenomegaly noted. No masses noted. INTEGUMENTARY: No rashes. No suspicious lesions. Some scattered small scabs to her BUE, chronic per patient MUSCULOSKELETAL: Normal musculature, no joint deformities. EXTREMITIES: No cyanosis or clubbing. 1+ BLE edema. NEUROLOGICAL: Alert and oriented. Cranial nerves intact. No gross motor or sensory deficits. PSYCHIATRIC: No anxiety or evidence of depression. Assessment and Plan (1) Iron deficiency anemia Iron deficiency anemia- likely due to chronic blood loss She has been on oral iron supplementation without response to date Unclear source of bleeding- scheduled for colonoscopy and EGD first week of January 2022 We will plan to replete with IV Injectafer x 2 doses Will check cbc, cmp, iron studies, b12, folate, esr, epo, retic, and paraproteinevaluation Follow-up in 6 weeks to review results We will repeat cbc, iron studies at follow-up to assess response to IV therapy - Time with Patient Coordination of Care & Counseling Time: Greater than 50% of time spent with patient was for coordination of care (as documented) and [id number] counseling of patient and/or family. Dictated By: Taylor Tijerina APRN DD/ 1241 Signed By: <Electronically signed by CARMELA Tijerina> 01/12/22 1403 <Electronically signed by Maciel Sofia II, DO> 01/19/22 1452 [facility] Work Phone: [phone] 245-473608-22-2022 NotePROCEDURE: XR ELBOW RT 2V HISTORY: Bone injury ; acute elbow pain after falling COMPARISON: None. FINDINGS: BONES:No fracture, acute abnormality, or significant arthropathy. SOFT TISSUES:Soft tissue swelling posterior to the proximal forearm. EFFUSION:None visible. OTHER: Negative. IMPRESSION: 1. No acute bone abnormality or joint effusion. Electronically authenticated by: GINGER BROOKS Date: 2022-01-04 13:57[facility]10-12-2021 Evaluation note* Encounter Date Diagnosis Assessment Notes Treatment Notes Treatment Clinical Notes Feb, Occlusion and stenosis of bilateral carotid arteries (ICD-10 - I65.23) Overall she has done well since her left CEA. We reviewed today's duplex studies together and her carotid occlusive disease is stable. We will continue to follow her along for annual surveillance carotid duplex studies. She will continue with her aspirin and statin medications daily. She verbalizes understanding of all discussion here today, agrees with plan at this time, denies any questions. Feb, Current smoker (ICD-10 - F17.200) We discussed the various health risks associated with cigarette smoking and discussed my recommendation for smoking cessation. She does not state readiness for smoking cessation at this time. [facility] Other Evaluation note* Diagnosis Onset Date Resolution Status Iron deficiency anemia acute [facility] Work Phone: Evaluation note* Diagnosis Fall, initial encounter- [facility] Diagnosis Acute bilateral low back pain with bilateral sciatica- Primary documented in this encounter [facility]* Diagnosis Acute bilateral low back pain with sciatica, sciatica laterality unspecified- Primary Lumbar spondylosis Lumbosacral spondylosis without myelopathy Bilateral hip pain Pain in joint, pelvic region and thigh documented in this encounter [facility]* Diagnosis Acute bilateral low back pain with sciatica, sciatica laterality unspecified- Primary Lumbar spondylosis Lumbosacral spondylosis without myelopathy Bilateral hip pain Pain in joint, pelvic region and thigh documented in this encounter [facility] HealthcareHistory general Narrative - Reported* Type Description Date Medical History carotid stenosis Medical History DM Medical History HTN Medical History Hyperlipidemia Medical History COPD Medical History GERD Medical History HYPOTHYROIDISM Surgical History Carotid endarterectomy right Surgical History choly 1999 Surgical History Hysterectomy 1992 Surgical History LEFT CEA Hospitalization History see above Hospitalization History pgeisert Hospitalization History ACUTE DELIRIUM; 10/02/20 [facility] Other Progress note [facility] 02, 2022 10:02am Note Date/Time November 02, 2022 10:0 1am [facility] [place] [address] Hem/Onc Follow Up Note - OP Signed Patient: Nuvia Abraham MR#: [id number] : 1945 Acct:[id number] Age/Sex: 77 / F Type: REG RCR Copies to: Wily Prado MD~ Subjective Date/Time of Service: Date of Service: 11/02/2022 Time of Service: 10:00 Chief Complaint: Patient is here today for a 3 month follow up visit for iron deficiency anemia and go over labs HPI: Patient is a 76-year-old white lady seen with her daughter for hematologic surveillance on iron deficiency anemia. She received Injectafer in January 2022. She felt slightly better in terms of energy and much better in terms of restless leg syndrome symptoms. She continues to feel pretty good for the most part. No significant fatigue or changes in energy levels. Most recent iron studies show ferritin - 40 and iron saturation of 16%; with normal, robust hemoglobin of 13.5. She denies dyspnea, orthopnea, chest pain, dizziness or lightheadedness. She had repeated fall episodes previously, but nothing recently; denies with no syncope or near syncope. If mostly due to her lower extremity neuropathy and restless leg 07/30/22 She has fatigue and restless legs denies dark, tarry stool or other complaints hgb 13.5, iron sat low at 15.4% and ferritin 27.4 11/02/22 she is feeling well, has good energy denies restless legs or black, tarry stool. no new complaints her chronic back and hip pain continues to be her biggest issue. she is due for follow-up soon for this labs good- iron WNL - Summary of Therapies Summary of Therapies: Injectafer 750 mg IV x 2 doses: 01/28/2022 and 02/04/2022 [facility] - Medical History Medical History: Medical History (Last Reviewed 01/12/22 @ 11:15 by Ritika Stiles) Arthritis mild hips Cellulitis left arm Cervical cancer COPD (chronic obstructive pulmonary disease) Diabetes Eczema ears bilateral GERD (gastroesophageal reflux disease) History of cataract not replaced yet Hyperlipidemia Hypertension Hypothyroidism Iron deficiency anemia Kidney stones Neuropathy Smoker - Surgical History Surgical History: Surgical History (Last Reviewed 01/12/22 @ 11:15 by Ritika Stiles) H/O carotid endarterectomy right, stent placed 2014 H/O: hysterectomy partial 1993 History of cholecystectomy 1999 - Family History Family History: Family History (Last Updated 01/12/22 @ 11:16 by Ritika Stiles) Mother Pancreatic cancer Diabetes Breast cancer Father Diabetes Heart disease Sister Breast cancer - Social History Smoking Status: Current every day smoker Tobacco Type: cigarettes Substance Use Type: None Social History Comments: I share with my daughter; it's my house. Home Medications & Allergies Allergies cimetidine [From Tagamet] Allergy (Verified 11/02/22 09:45) Diarrhea bacitracin [From Neosporin ([id number])] Adverse Reaction (Verified 11/02/22 09:45) Blister contact metal agent Adverse Reaction (Verified 11/02/22 09:45) Rash neomycin [From Neosporin ([id number])] Adverse Reaction (Verified 11/02/22 09:45) Blister petrolatum,white [From Petroleum Jelly] Adverse Reaction (Verified 11/02/22 09:45) Blister polymyxin B [From Neosporin ([id number])] Adverse Reaction (Verified 11/02/2308:45) Blister Home Medications atorvastatin 20 mg tablet 20 mg PO QHS 12/14/19 [History Confirmed 11/02/22] clopidogrel 75 mg tablet (Plavix) 75 mg PO QNOON 12/14/19 [History Confirmed 11/02/22] fenofibrate nanocrystallized 145 mg tablet 145 mg PO QHS cholesterol 12/14/19 [History Confirmed 11/02/22] gabapentin 600 mg tablet 600 mg PO TID neuropathy 12/14/19 [History Confirmed 11/02/22] insulin glargine 100 unit/mL (3 mL) subcutaneous pen (Lantus Solostar U-100 Insulin) 25 unit subcut QHS 12/14/19 [History Confirmed 11/02/22] levothyroxine 75 mcg tablet 75 mcg PO QAM thyroid 12/14/19 [History Confirmed 11/02/22] oxcarbazepine 300 mg tablet 300 mg PO BID neuropathy 12/14/19 [History Confirmed 11/02/22] sitagliptin phosphate 50 mg-metformin 500 mg tablet (Janumet) 2 tab PO DAILY diabetes 12/14/19 [History Confirmed 11/02/22] torsemide 10 mg tablet 10 mg PO QAM blood pressure 12/14/19 [History Confirmed 11/02/22] albuterol sulfate 90 mcg/actuation aerosol inhaler (Ventolin HFA) 2 puff inhalation QID PRN Shortness Of Breath Or Wheezing 12/17/19 [History Confirmed 11/02/22] aspirin 81 mg tablet,delayed release (Magno Low Dose Aspirin) 81 mg PO QHS 12/17/19 [History Confirmed 11/02/22] calcium carbonate 600 mg-vitamin D3 10 mcg (400 unit) tablet (Calcium 600 + D(3)) 1 tab PO DAILY.AC.LUNCH 12/17/19 [History Confirmed 11/02/22] cetirizine 10 mg tablet (Zyrtec) 10 mg PO QNOON allergies 12/17/19 [History Confirmed 11/02/22] evening primrose oil 500 mg capsule 1,000 mg PO QNOON 12/17/19 [History Confirmed 11/02/22] famotidine 10 mg tablet (Pepcid AC) 20 mg PO QHS PRN upset stomach 12/17/19 [History Confirmed 11/02/22] horse chestnut 300 mg capsule 300 mg PO QNOON circulation in legs 12/17/19 [History Confirmed 11/02/22] multivitamin (Daily-Sandy tablet) 1 tab PO QHS 12/17/19 [History Confirmed 11/02/22] naproxen 500 mg tablet (Naprosyn) 500 mg PO BID 12/17/19 [History Confirmed 11/02/22] niacin 500 mg tablet 500 mg PO QNOON 12/17/19 [History Confirmed 11/02/22] omega 0-tys-hvo-fish oil 1,000 mg (120 mg-180 mg) capsule (Fish Oil) 1 cap PO BID 12/17/19 [History Confirmed 11/02/22] vitamin B complex (B-Complex tablet) 1 tab PO QNOON 12/17/19 [History Confirmed 11/02/22] vitamin E 268 mg (400 unit) capsule 800 unit PO QAM 12/17/19 [History Confirmed 11/02/22] zinc 50 mg tablet 50 mg PO QNOON 12/17/19 [History Confirmed 11/02/22] tiotropium 2.5 mcg-olodaterol 2.5 mcg/actuation mist for inhalation (Stiolto Respimat) 2 puff inhalation QHS 09/18/20 [History Confirmed 11/02/22] hydrochlorothiazide 25 mg tablet 25 mg PO DAILY@1200 #30 tabs 10/06/20 [Rx Confirmed 11/02/22] lisinopril 40 mg tablet 40 mg PO DAILY@1200 30 days #30 tabs 10/06/20 [Rx Confirmed 11/02/22] metoprolol tartrate 25 mg tablet 25 mg PO TID #90 tabs 10/06/20 [Rx Confirmed 11/02/22] docusate sodium 100 mg tablet 100 mg PO DAILY PRN Constipation 12/29/21 [History Confirmed 11/02/22] omeprazole 20 mg capsule,delayed release 20 mg PO DAILY 12/29/21 [History Confirmed 11/02/22] tramadol 50 mg tablet 50 mg PO BID PRN Back Pain 02/22/22 [History Confirmed 11/02/22] polyethylene glycol 3350 17 gram oral powder packet (Miralax) 17 g PO DAILY 07/30/22 [History Confirmed 11/02/22] Objective - Height/Weight Height/Weight: Height 5 ft Weight 78.018 kg - Vital Signs Vital Signs: 11/02/22 09:46 Temperature 97.8 F Pulse Rate [Left Brachial] 64 Respiratory Rate 16 Blood Pressure [Left Arm] 179/79 H 02 Sat by Pulse Oximetry 95 Oxygen Delivery Method Room Air - Pain Generalized Left Pain Intensity: 0 Physical Exam Narrative: GENERAL APPEARANCE: Well developed, well nourished, in no acute distress. SKIN: Inspection of the skin reveals no rashes, ulcerations or petechiae. HEENT: The sclerae were anicteric and conjunctivae were pink and moist. EOMI, PERRLA. The oral mucosa is moist and clear. NECK: Supple and symmetric. There was no thyroid enlargement, and no tenderness,or masses were felt. LUNGS: Normal breath sounds on auscultation without rales, rhonchi, or crackles. CARDIOVASCULAR: S1 and S2, regular rate and rhythm, no murmurs, gallops, rubs. ABDOMEN: Soft, nontender, bowel sounds normal. No hepatosplenomegaly. No mass palpated. MUSCULOSKELETAL: Gait was normal. There was no tenderness or effusions noted. Muscle strength and tone were normal. EXTREMITIES: No cyanosis, clubbing or edema. NEUROLOGIC: Alert and oriented x 3. Normal affect. Gait was normal. Sensation totouch was normal. Results - Labs Labs: Diagram of Most Recent CBC and CMP 11/01/22 14:05 11/01/22 14:05 Labs - Last 7 Days 11/01/22 14:05: PHA Creatinine Clear 57.26, Sodium 136, Potassium 4.3, Chloride 100, Carbon Dioxide 28.9, Anion Gap 11.4, BUN 22, Creatinine 0.76, Est GFR (CKD-EPI) > 60.0, Glucose 118 H, Calcium 9.2, Iron 94, TIBC 372, Iron Saturation 25.3, Transferrin 266, Ferritin 90.9, Total Bilirubin 0.4, AST 22, ALT 18, Alkaline Phosphatase 38, Total Protein 6.0 L, Albumin 3.8, Globulin 2.2, Albumin/Globulin Ratio 1.7 11/01/22 14:05: Corrected WBC 6.3, Uncorrected WBC Count 6.3, RBC 3.92, Hgb 13.0, Hct 37.4, MCV 95.6, MCH 33.1, MCHC 34.7, RDW 13.6, Plt Count 266, MPV 7.1,Neut % (Auto) 60.6, Lymph % (Auto) 26.9, Greene % (Auto) 9.5, Eos % (Auto) 1.7, Baso % (Auto) 1.3, Nucleat RBC Rel Count 0.2, Neut # (Auto) 3.8, Lymph # (Auto) 1.7, Greene # (Auto) 0.6, Eos # (Auto) 0.1, Baso # (Auto) 0.1 Assessment and Plan (1) Iron deficiency anemia Iron deficiency anemia - she does not tolerate oral iron, as this previously caused severe constipation. In general, the patient feels better since the iron infusion; she notes better energy and improvement in restless legs. Most recent labs reveal normal, rather robust hemoglobin of 13.5; with iron saturation of 16% and ferritin?40. Status post: EGD/Colonoscopy in January 2022; with no acute findings other than chronic, inactive gastritis. Is not taking NSAIDS as previously advised by Dr. Noel. July 2022 iron levels low again, will plan to replete with additional IV Injectafer x 2 doses October 2022 hemoglobin and iron studies WNL. Will repeat in 3mo with follow-up - Time with Patient Time Spent with Patient (Follow Up Visit): 25 minutes Coordination of Care & Counseling Time: Greater than 50% of time spent with patient was for coordination of care (as documented) and [id number] counseling of patient and/or family. Dictated By: Taylor Tijerina APRN DD/ 1000 Signed By: <Electronically signed by CARMELA Tijerina> 11/02/22 1002 [facility] Work Phone: Progress note Author Taylor Tijerina [facility] February 01, 2023 11:23am Note Date/Time February 01, 2023 11:04am [facility] at [address] [address] Hem/Onc Follow Up Note - OP Signed Patient: Nuvia Abraham MR#: [id number] : 1945 Acct:[id number] Age/Sex: 77 / F Type: REG RCR Copies to: Wily Prado MD~ Date of Service: 02/01/2023 Time of Service: 11:04 - Assessment & Plan (1) Iron deficiency anemia Plan: Iron deficiency anemia - she does not tolerate oral iron, as this previously caused severe constipation. Received IV iron Jan 2022 with improvement in symptoms and counts EGD/Colonoscopy in January 2022; with no acute findings other than chronic, inactive gastritis. Is not taking NSAIDS as previously advised by Dr. Noel. July 2022 iron levels low again, will plan to replete with additional IV Injectafer x 2 doses October 2022 and Jan 2023 hemoglobin and iron studies WNL. Given stability, will push f/u and labs to 6mo Follow Up Instructions: cbc, cmp, iron studies in 6mo follow-up in 6mo - History of Present Illness Chief Complaint: Patient is here today for a 3 month follow up for iron deficiency anemia and go over labs HPI: Patient is a 76-year-old white lady seen with her daughter for hematologic surveillance on iron deficiency anemia. She received Injectafer in January 2022. She felt slightly better in terms of energy and much better in terms of restless leg syndrome symptoms. She continues to feel pretty good for the most part. No significant fatigue or changes in energy levels. Most recent iron studies show ferritin - 40 and iron saturation of 16%; with normal, robust hemoglobin of 13.5. She denies dyspnea, orthopnea, chest pain, dizziness or lightheadedness. She had repeated fall episodes previously, but nothing recently; denies with no syncope or near syncope. If mostly due to her lower extremity neuropathy and restless leg 07/30/22 She has fatigue and restless legs denies dark, tarry stool or other complaints hgb 13.5, iron sat low at 15.4% and ferritin 27.4 11/02/22 she is feeling well, has good energy denies restless legs or black, tarry stool. no new complaints her chronic back and hip pain continues to be her biggest issue. she is due for follow-up soon for this labs good- iron WNL 02/01/23 she feels good, energy is stable she is not having any black or tarry stool. Is eating and drinking ok no new complaints at all hgb 13.9, iron sat 23.6% and ferritin 58.3 - Physical Exam GENERAL APPEARANCE: Well developed, well nourished, in no acute distress. SKIN: Inspection of the skin reveals no rashes, ulcerations or petechiae. LUNGS: Normal breath sounds on auscultation without rales, rhonchi, or crackles. CARDIOVASCULAR: S1 and S2, regular rate and rhythm, no murmurs, gallops, rubs. EXTREMITIES: No cyanosis, clubbing or edema. NEUROLOGIC: Alert and oriented x 3. Normal affect. Gait was normal. Sensation totouch was normal. - Time with Patient Coordination of Care & Counseling Time: Greater than 50% of time spent with patient was for coordination of care (as documented) and [id number] counseling of patient and/or family. [facility] - Medical History Medical History: Medical History (Last Reviewed 01/12/22 @ 11:15 by Ritika Stiles) Arthritis mild hips Cellulitis left arm Cervical cancer COPD (chronic obstructive pulmonary disease) Diabetes Eczema ears bilateral GERD (gastroesophageal reflux disease) History of cataract not replaced yet Hyperlipidemia Hypertension Hypothyroidism Iron deficiency anemia Kidney stones Neuropathy Smoker - Surgical History Surgical History: Surgical History (Last Reviewed 01/12/22 @ 11:15 by Ritika Stiles) H/O carotid endarterectomy right, stent placed 2014 H/O: hysterectomy partial 1993 History of cholecystectomy 1999 - Family History Family History: Family History (Last Updated 01/12/22 @ 11:16 by Ritika Stiles) Mother Pancreatic cancer Diabetes Breast cancer Father Diabetes Heart disease Sister Breast cancer - Social History Smoking Status: Current every day smoker Tobacco Type: cigarettes Substance Use Type: None Social History Comments: I share with my daughter; it's my house. Additional Data - Additional Objective Data Height/Weight: Height 5 ft Weight 78.925 kg Vital Signs: 02/01/23 10:58 Temperature 97.2 F L Pulse Rate [Left Brachial] 67 Respiratory Rate 16 Blood Pressure [Left Arm] 171/66 H 02 Sat by Pulse Oximetry 95 Oxygen Delivery Method Room Air - Lab Results Diagram of Most Recent CBC and CMP 01/31/23 15:48 01/31/23 15:48 Labs - Last 7 Days 01/31/23 15:48: PHA Creatinine Clear 49.88, Sodium 136, Potassium 4.2, Chloride 102, Carbon Dioxide 30.6, Anion Gap 7.6, BUN 24, Creatinine 0.90, Est GFR (CKD-EPI) > 60.0, Glucose 118 H, Calcium 9.1, Iron 91, TIBC 385, Iron Saturation 23.6, Transferrin 275, Ferritin 58.3, Total Bilirubin 0.4, AST 24, ALT 16, Alkaline Phosphatase 72, Total Protein 6.3 L, Albumin 3.7, Globulin 2.6, Albumin/Globulin Ratio 1.4 01/31/23 15:48: Corrected WBC 6.9, Uncorrected WBC Count 6.9, RBC 4.27, Hgb 13.9, Hct 40.4, MCV 94.5, MCH 32.5, MCHC 34.4, RDW 13.8, Plt Count 349, MPV 7.4,Neut % (Auto) 61.7, Lymph % (Auto) 26.2, Greene % (Auto) 9.2, Eos % (Auto) 2.0, Baso % (Auto) 0.9, Nucleat RBC Rel Count 0.1, Neut # (Auto) 4.2, Lymph # (Auto) 1.8, Greene # (Auto) 0.6, Eos # (Auto) 0.1, Baso # (Auto) 0.1 - Home Medications and Allergies Allergies/Adverse Reactions: Allergies cimetidine [From Tagamet] Allergy (Verified 02/01/23 10:56) Diarrhea bacitracin [From Neosporin ([id number])] Adverse Reaction (Verified 02/01/23 10:56) Blister contact metal agent Adverse Reaction (Verified 02/01/23 10:56) Rash neomycin [From Neosporin ([id number])] Adverse Reaction (Verified 02/01/23 10:56) Blister petrolatum,white [From Petroleum Jelly] Adverse Reaction (Verified 02/01/23 10:56) Blister polymyxin B [From Neosporin ([id number])] Adverse Reaction (Verified 02/01/2310:56) Blister Home Medications: Home Medications atorvastatin 20 mg tablet 20 mg PO QHS 12/14/19 [History Confirmed 02/01/23] clopidogrel 75 mg tablet (Plavix) 75 mg PO QNOON 12/14/19 [History Confirmed 02/01/23] fenofibrate nanocrystallized 145 mg tablet 145 mg PO QHS cholesterol 12/14/19 [History Confirmed 02/01/23] gabapentin 600 mg tablet 600 mg PO TID neuropathy 12/14/19 [History Confirmed 02/01/23] insulin glargine 100 unit/mL (3 mL) subcutaneous pen (Lantus Solostar U-100 Insulin) 25 unit subcut QHS 12/14/19 [History Confirmed 02/01/23] levothyroxine 75 mcg tablet 75 mcg PO QAM thyroid 12/14/19 [History Confirmed 02/01/23] oxcarbazepine 300 mg tablet 300 mg PO BID neuropathy 12/14/19 [History Confirmed 02/01/23] sitagliptin phosphate 50 mg-metformin 500 mg tablet (Janumet) 2 tab PO DAILY diabetes 12/14/19 [History Confirmed 02/01/23] torsemide 10 mg tablet 10 mg PO QAM blood pressure 12/14/19 [History Confirmed 02/01/23] albuterol sulfate 90 mcg/actuation aerosol inhaler (Ventolin HFA) 2 puff inhalation QID PRN Shortness Of Breath Or Wheezing 12/17/19 [History Confirmed 02/01/23] aspirin 81 mg tablet,delayed release (Magno Low Dose Aspirin) 81 mg PO QHS 12/17/19 [History Confirmed 02/01/23] calcium carbonate 600 mg-vitamin D3 10 mcg (400 unit) tablet (Calcium 600 + D(3)) 1 tab PO DAILY.AC.LUNCH 12/17/19 [History Confirmed 02/01/23] cetirizine 10 mg tablet (Zyrtec) 10 mg PO QNOON allergies 12/17/19 [History Confirmed 02/01/23] evening primrose oil 500 mg capsule 1,000 mg PO QNOON 12/17/19 [History Confirmed 02/01/23] famotidine 10 mg tablet (Pepcid AC) 20 mg PO QHS PRN upset stomach 12/17/19 [History Confirmed 02/01/23] horse chestnut 300 mg capsule 300 mg PO QNOON circulation in legs 12/17/19 [History Confirmed 02/01/23] multivitamin (Daily-Sandy tablet) 1 tab PO QHS 12/17/19 [History Confirmed 02/01/23] naproxen 500 mg tablet (Naprosyn) 500 mg PO BID 08/03/20 [History Confirmed 02/01/23] niacin 500 mg tablet 500 mg PO QNOON 12/17/19 [History Confirmed 02/01/23] omega 7-rmt-jpm-fish oil 1,000 mg (120 mg-180 mg) capsule (Fish Oil) 1 cap PO BID 12/17/19 [History Confirmed 02/01/23] vitamin B complex (B-Complex tablet) 1 tab PO QNOON 12/17/19 [History Confirmed 02/01/23] vitamin E 268 mg (400 unit) capsule 800 unit PO QAM 12/17/19 [History Confirmed 02/01/23] zinc 50 mg tablet 50 mg PO QNOON 12/17/19 [History Confirmed 02/01/23] tiotropium 2.5 mcg-olodaterol 2.5 mcg/actuation mist for inhalation (Stiolto Respimat) 2 puff inhalation QHS 09/18/20 [History Confirmed 02/01/23] hydrochlorothiazide 25 mg tablet 25 mg PO DAILY@1200 #30 tabs 10/06/20 [Rx Confirmed 02/01/23] lisinopril 40 mg tablet 40 mg PO DAILY@1200 30 days #30 tabs 10/06/20 [Rx Confirmed 02/01/23] metoprolol tartrate 25 mg tablet 25 mg PO TID #90 tabs 10/06/20 [Rx Confirmed 02/01/23] docusate sodium 100 mg tablet 100 mg PO DAILY PRN Constipation 12/29/21 [History Confirmed 02/01/23] omeprazole 20 mg capsule,delayed release 20 mg PO DAILY 12/29/21 [History Confirmed 02/01/23] tramadol 50 mg tablet 50 mg PO BID PRN Back Pain 02/22/22 [History Confirmed 02/01/23] polyethylene glycol 3350 17 gram oral powder packet (Miralax) 17 g PO DAILY 07/30/22 [History Confirmed 02/01/23] Dictated By: Taylor Tijerina APRN DD/ 1104 Signed By: <Electronically signed by CARMELA Tijerina> 02/01/23 1123 [facility] Work Phone: Summary Purpose Family History No Family History Records Found Relationship Condition Age at Onset Recorded Date/T rosa Not Specified Malignant neoplasm of pancreas Unknown Diabetes mellitus Unknown Malignant neoplasm of breast Unknown father Diabetes mellitus Unknown Heart disease Unknown sister Malignant neoplasm of breast Unknown Advance Directives No Advanced Directives Records Found Advance Directive Response Recorded Date/ Time Advance Directives No December 11 3:31pm Advance Directive Response Recorded Date/ Time Advance Directives No December 11 2:31pm Chief Complaint and Reason for Visit Chief Complaint Iron Def /Anemia Reason for Visit Iron deficiency anem ia Chief Complaint Anemia Iron Def /Anemia Reason for Visit Iron deficiency anem ia Additional Source Comments INFORMATION SOURCE (unrecogn ized section and content) DATE CREATED AUTHOR 10/04/2021 [facility] dical Specialist DATE CREATED AUTHOR AUTHOR'S ORGANIZ ATION 01/25/2022 [facility] DATE CREATED AUTHOR AUTHOR'S ORGANIZ ATION 02/23/2022 [facility] DATE CREATED AUTHOR AUTHOR'S ORGANIZ ATION 07/20/2023 [facility] DATE CREATED AUTHOR AUTHOR'S ORGANIZ ATION 08/10/2023 [facility] d[facility] Specialists EPIC REASON FOR VISIT (unrecogniz ed section and content) Reason Comments Fall Reason Onset Date Comments Med Refill 06/16/2023 [facility]AM[facility]OL [facility] [place] Specialty Diagnoses / Procedures Referred By David chin Referred To Contact Physical Therapy Diagnoses Acute bilateral low back pain with sciatica, sciatica laterality unspecified Lumbar spondylosis Procedures AK OFFICE/OUTPATIENT NEW HIGH MDM 60 MINUTES Wily Prado MD [address] [facility] [address] [place] [address] Sonny Sheffield, PT [address] [facility] [address] [place] [address] Referral ID Status Reason Start Date Expiration Date Visits Requested Visits Authorized [id number] Authorized Specialty Services Required 3 11/06/2023 10 10 Care Teams (unrecognized sec tion and content) Team Status: Active Member Role Status Dates Wiyl Prado MD Primary Care Provider Active Team Status: Active Member Role Status Dates Wily Prado MD Primary Care Provider, Referring Pro vider Active Taylor Tijerina APRN Attending Provider Actcarmelo tillman Team Status: Inactive Member Role Status Dates Wily Prado MD Primary Care Provider Active Jesse Tran MD Attending Provider Active Devil Tender Relationship Specialty Start Date End Date Wily Prado MD [address] [place] [address] PCP - ACO Reach 10/07/22 Wily Prado MD [address] [place] [address] PCP - General Family Medicine 10/28/22 Devil Tender Relationship Specialty Start Date End Date Wily Prado MD [address] [place] [address] PCP - ACO Reach 10/07/22 Wily Prado MD [address] [place] [address] PCP - General Family Medicine 10/28/22 Devil Tender Relationship Specialty Start Date End Date Wily Prado MD [address] [place] [address] PCP - ACO Reach 10/07/22 Wily Prado MD [address] [place] [address] PCP - General Family Medicine 10/28/22 Devil Tender Relationship Specialty Start Date End Date Wily Prado MD [address] [place] [address] PCP - ACO Reach 10/07/22 Wily Prado MD [address] [place] [address] PCP - General Family Medicine 10/28/22 Goals (unrecognized section and content) Goals may be documented in a n alternate section FOR RECORDS PERTAINING TO PATIENTS WHO ARE OR HAVE BEEN ENROLLED IN A CHEMICAL DEPENDENCY/SUBSTANCEABUSE PROGRAM, SOME INFORMATION MAY BE OMITTED. This clinical summary was aggregated from multiple sources. Caution should be exercised in using it in the provision of clinical care. This summary normalizes information from multiple sources, and as a consequence, information in this document may materially change the coding, format and clinical context of patient data. In addition, data may be omitted in some cases. CLINICAL DECISIONS SHOULD BE BASED ON THE PRIMARY CLINICAL RECORDS. [facility]. provides no warranty or guarantee of the accuracy or completeness of information in this document.
--- NOTE | 2023-08-12 14:30 | XR_ITS ---
[place] [id number] Patient Name: NUVIA ABRAHAM MRN: [id number] date: 1945 Sex: F Assigned Patient Location: [facility] Current Patient Location: Accession/Order Number: [id number] Exam Date: 08/12/2023 14:38 Report Date: 08/13/2023 06:43 At the request of: WILY PRADO Procedure: XR lumbar spine 2-3V EXAMINATION: XR lumbar spine 2-3V HISTORY: Lumbar Spondylosis M47.816, Acute Low Back Pain radiating into hips and legs COMPARISON: CT abdomen pelvis 11/10/2020 FINDINGS: BONES: Mild grade 1 anterolisthesis of L4 on 5. No fracture or bone lesion. Moderate degenerative facet arthropathy L3-L4 through L5-S1. DISC SPACES: L3-L4 mild narrowing. L4-L5, L5-S1 moderate-marked narrowing. PARASPINOUS: Marked atherosclerotic disease of aorta and branches. OTHER: Negative. XR/XR lumbar spine 2-3V IMPRESSION: 1. Multilevel moderate- marked degenerative changes of lower lumbar spine; slightly progressed compared to prior study. Electronically authenticated by: GINGER BROOKS Date: 08/13/2023 06:43
== END 2023-08-12 14:25 | disposition home or self-care (01) ==
LOC: RAD 14:25
PROVIDERS: PCP Family Medicine; Visit Provider Family Medicine
DX: M54.40 Lumbago with sciatica, unspecified side (principal); M47.816 Spondylosis without myelopathy or radiculopathy, lumbar region; M51.36 Other intervertebral disc degeneration, lumbar region
CPT/HCPCS: 72100

== ENCOUNTER 2024-11-13 11:39 | Outpatient (OUT) | payer MEDICARE, SELFPAY ==
--- NOTE | 2024-11-13 12:10 | PM.WCHP ---
Wound Care H&P: HPI History of Present Illness Narrative: The pain is a pleasant 79-year-old female with history of well-controlled type 2 diabetes, last hemoglobin A1c was 4.8, who presents for evaluation of a black bloody toenail . The patient states she snagged her left second toe on the rug and noticed black drainage from under the toenail. She denies pain in her foot. She wears custom diabetic shoes. [facility] Medical History (Updated 11/13/24 @ 12:13 by LUMA Nazario) PVD (peripheral vascular disease) ?I73.9 - Peripheral vascular disease, unspecified (ICD-10) Type 2 diabetes mellitus with hyperglycemia ?E11.65 - Type 2 diabetes mellitus with hyperglycemia (ICD-10) Lumbar degenerative disc disease ?M51.36 - Other intervertebral disc degeneration, lumbar region (ICD-10) Hypertension ?I10 - Essential (primary) hypertension (ICD-10) Medication side effect ?T88.7XXA - Unspecified adverse effect of drug or medicament, initial encounter (ICD-10) Chronic back pain ?M54.9 - Dorsalgia, unspecified (ICD-10) ?G89.29 - Other chronic pain (ICD-10) Diabetes ?E11.9 - Type 2 diabetes mellitus without complications (ICD-10) Choking ?T17.308A - Unspecified foreign body in larynx causing other injury, initial encounter (ICD-10) GERD (gastroesophageal reflux disease) ?K21.9 - Gastro-esophageal reflux disease without esophagitis (ICD-10) Social History Smoking status: Current every day smoker Meds Home Medications and Allergies Home Medications ?Medication ?Instructions ?Recorded ?Confirmed ?Type B-Complex 05/15/23 History CoQ-10 30 mg PO DAILY 05/15/23 05/15/23 History Fish Oil 1,000 mg PO 05/15/23 History Lantus Solostar U-100 Insulin 05/15/23 History Miralax 17 g PO .qd PRN constipation 05/15/23 05/15/23 History Vici Oil 05/15/23 History Ventolin HFA 05/15/23 History Zyrtec 10 mg PO .qd PRN allergy symptoms 05/15/23 05/15/23 History alpha lipoic acid 200 mg capsule 200 mg PO DAILY 05/15/23 05/15/23 History aspirin 81 mg capsule 81 mg PO DAILY 05/15/23 05/15/23 History atorvastatin 20 mg tablet 20 mg PO DAILY 05/15/23 05/15/23 History calcium citrate-vitamin D3 05/15/23 History clopidogrel 75 mg tablet 75 mg PO DAILY 05/15/23 05/15/23 History famotidine 20 mg PO 05/15/23 History fenofibrate nanocrystallized 145 145 mg PO .qd 05/15/23 05/15/23 History mg tablet ferrous sulfate 325 mg PO 05/15/23 History gabapentin 600 mg tablet 600 mg PO Q8H 05/15/23 05/15/23 History hydrochlorothiazide 25 mg tablet 25 mg PO DAILY 05/15/23 05/15/23 History ipratropium 0.5 mg-albuterol 3 mg 3 ml inhalation Q6H 05/15/23 05/15/23 History (2.5 mg base)/3 mL nebulization soln levothyroxine 88 mcg tablet 88 mcg PO DAILY 05/15/23 05/15/23 History lisinopril 40 mg tablet 40 mg PO DAILY 05/15/23 05/15/23 History magnesium 30 mg PO 05/15/23 History melatonin 5 mg capsule 5 mg PO 05/15/23 History meloxicam 15 mg tablet 15 mg PO DAILY 05/15/23 05/15/23 History metoprolol tartrate 25 mg tablet 25 mg PO TID 05/15/23 05/15/23 History multivitamin (Daily Multi-Vitamin 1 tab PO DAILY 05/15/23 05/15/23 History tablet) niacin 500 mg PO .qd 05/15/23 05/15/23 History omeprazole 20 mg capsule,delayed 20 mg PO .qd 05/15/23 05/15/23 History release oxcarbazepine 300 mg tablet 300 mg PO BID 05/15/23 05/15/23 History sitagliptin phosphate 50 2 tab PO DAILY 05/15/23 05/15/23 History mg-metformin 500 mg tablet (Janumet) sodium chloride 1,000 mg PO 05/15/23 History tiotropium 2.5 mcg-olodaterol 2.5 2 puff inhalation Q24H 05/15/23 05/15/23 History mcg/actuation mist for inhalation (Stiolto Respimat) torsemide 10 mg tablet 10 mg PO DAILY 05/15/23 05/15/23 History tramadol 50 mg tablet 100 mg PO Q6H PRN pain 05/15/23 05/15/23 History vitamin E 268 mg (400 unit) capsule 268 mg PO DAILY 05/15/23 05/15/23 History zinc gluconate 50 mg PO 05/15/23 History Allergies Allergy/AdvReac Type Severity Reaction Status Date / Time petrolatum,white (From AdvReac Severe Blister Verified 01/13/23 11:08 Petroleum Jelly) tagemet AdvReac Severe Diarrhea Uncoded 01/13/23 11:08 Exam Narrative: Exam Narrative: Derm: Toenails 1 through 10 are thickened, elongated, and incurvated.? No evidence of paronychia.? The left second toenail is detached proximally and attached at the distal end of the toenail. Upon debridement of the toenail, there is no laceration identified. Skin is diffusely dry, thin, and atrophic.? Hemosiderin staining present on the lower legs bilaterally. Vascular: DP and PT pulses are nonpalpable bilaterally.? Capillary refill is less than 3 seconds to all toes. Digital hair is absent bilaterally. 2+ pitting edema noted to both ankles. Neuro: Vibratory sensation is absent bilaterally.? Achilles deep tendon reflex is absent bilaterally.? Protective sensation was tested with a monofilament and is present in 1/5 areas tested on the right and 0/5 areas tested on the left.? Musculoskeletal: No gross deformity.? Mild bruising noted on the left second toe which is rectus. Strength 5/5 in all planes bilaterally Assessment and Plan Assessment and Plan (1) Traumatic onycholysis: (2) Tinea unguium: (3) Type 2 diabetes mellitus with diabetic neuropathy, unspecified: (4) Diminished pulses in lower extremity: Plan The patient presents for evaluation of trauma to the left second toenail. The toenail was noted to be partially from the nailbed. The nail was debrided, anesthesia was not necessary. No nailbed laceration was identified. The remainder of her toenails were sharply debrided with nail nippers without incident. She may follow-up in 3 months or at her discretion. Acute Procedures Podiatry Nail Debridement Class B Findings Absent posterior tibial pulse: bilateral Advanced trophic changes as evidenced by any three of the following: decreased hair growth, nail changes (thickening), pigmentary changes (discoloring), skin texture (thin or shiny) and skin color (rubor or redness) Absent dorsalis pedis pulse: bilateral Class C Findings Claudication: No Temperature changes: No Edema: Yes Nail debridement paresthesia (abnormal spontaneous sensations in the feet): Yes Burning: Yes Qualifies If: Qualifiers If:: A patient qualifies for nail debridement if they have: 1 class A finding (Q7) 2 class B findings (Q8) OR 1 class B & 2 class C findings in addition to a primary condition (Q9) Nail Procedure Nail Procedure Time out: Yes Nail procedure: other (Toenail debridement nails 1 through 10) Number of affected nails: 10 Location (toes): left and right Procedure successful: Yes Patient tolerated procedure: well and no complications Additional comments: Left second toenail was noted to be partially detached from the nailbed. It was debrided without incident.
== END 2024-11-13 11:40 | disposition home or self-care (01) ==
LOC: WC 11:39
PROVIDERS: PCP Family Medicine; Visit Provider Physician Assistant
DX: L60.1 Onycholysis (principal); B35.1 Tinea unguium; E11.40 Type 2 diabetes mellitus with diabetic neuropathy, unspecified; I73.9 Peripheral vascular disease, unspecified
CPT/HCPCS: 11721

== ENCOUNTER 2024-11-19 11:24 | Outpatient (OUT) | payer MEDICARE, SELFPAY ==
--- OUTSIDE RECORDS SUMMARY | 2024-11-19 11:27 | XMS_ITS | Encounter Summary ---
Author Organization [facility] Address [address] [place] [address] Care Team Providers Care Abrasive Sawyer Name Role Phone Nohemy Guajardo MD Unavailable Nohemy Guajardo MD Primary Care Provider [phone] Encounter Details Date Type Department Care Team (Late Contact Info) Description 01/05/2023 Orders Only [facility] [address] [place] [address] A, Unknown Practice [address] [place], [place] [id number] Social History Tobacco Use Types Packs/Day Years Used Date Smoking Tobacco: Every Day Cigarettes 1.5 50 Smokeless Tobacco: Never Comments:11-20 cigs/day Alcohol Use Standard Drinks/Week Comments Never 0 (1 standard drink = 0.6 oz pure alcohol) Caffeine intake: more than 4 cups per day PHQ-2 Answer Date Recorded Patient Health Questionnaire-2 Score 0 12/27/2022 Comments Unknown Sex and Gender Information Value Date Recorded Sex Assigned at Not on file Legal Sex Female 8:06 PM EDT Gender Identity Not on file Sexual Orientation Not on file documented as of this encounter Plan of Treatment Upcoming Encounters Date Type Department Care Team (Late Contact Info) Description 04/02/2025 1:00 PM EST Office Visit [facility] [address] [place] [id number] Nohemy Guajardo MD [address] [id number] documented as of this encounter Procedures Procedure Name Priority Date/Time Associated Diagnosis Comments CT LUNG SCREENING LOW DOSE Routine 01/05/2023 4:36 PM EDT documented in this encounter Results * CT lung screening low dose (01/05/2023 4:36 PM EDT) Anatomical Region Laterality Modality Lung Computed Tomogra phy us Unknown Practice A IMG CT PROCEDURES Final Resul t documented in this encounter Visit Diagnoses Not on filedocumented in this encounter Additional Health Concerns Assessment Noted Time PHQ-9 Depression Total Score: 5 12/28/19 23 8:00 AM EDT documented as of this encounter Care Teams Abrasive Sawyer Relationship Specialty Start Date End Date Nohemy Guajardo MD [address] [place] [address] PCP - ACO Reach 10/07/22 Nohemy Guajardo MD [address] [address] PCP - General Family Medicine 10/28/22 documented as of this encounter
--- OUTSIDE RECORDS SUMMARY | 2024-11-19 11:27 | XMS_ITS | Clinical Summary ---
Author Organization [facility] Address [address] [place] [address] Care Team Providers Care Emergency Medical Services Coordinator Name Role Phone Nohemy Guajardo MD Unavailable Nohemy Guajardo MD Primary Care Provider [phone] Allergies Active Allergy Reactions Criticality Noted Date Comments Bacitracin 02/01/2023 Other Reaction(s): Blister Bacitracin-Polymyxin B Unknown 10/31/2022 Cimetidine Unknown 10/31/2022 Neomycin 02/01/2023 Other Reaction(s): Blister Petrolatum Unknown 10/31/2022 Polymyxin B 02/01/2023 Other Reaction(s): Blister Medications Calcium Citrate-Vitamin D (CALCIUM CITRATE + D3 MAXIMUM PO) Take 1 tablet by mouth 1 (one) time each day. Active EVENING PRIMROSE OIL PO Take 1 application by mouth 1 (one) time each day. Active [place]-3 Fatty Acids (Fish Oil) 1000 MG capsule delayed-release Take 1 capsule by mouth 1 (one) time each day. Active HORSE CHESTNUT PO Take 1 tablet by mouth 1 (one) time each day. Active Docusate Sodium (STOOL SOFTENER LAXATIVE PO) Take 1 tablet by mouth if needed Active Ventolin HFA 108 (90 Base) MCG/ACT inhaler Inhale 2 puffs every 6 (six) hours if needed for wheezing or shortness of breath. Active Alpha Lipoic Acid 200 MG capsule Take 1 tablet by mouth 1 (one) time each day. Active cetirizine (ZyrTEC ALLERGY) 10 MG tablet Take 1 tablet by mouth 1 (one) time each day at the same time. Active famotidine (Pepcid) 20 MG tablet Take 1 tablet by mouth as needed at bedtime for indigestion or heartburn. Active ferrous sulfate 325 (65 Fe) MG tablet Take 1 tablet by mouth 1 (one) time each day at the same time. 022 Active ipratropium-albut vipul (Duo-Neb) 0.5-2.5 mg/3 mL nebulizer solution Take 3 mL by nebulization every 6 (six) hours. PRN 023 Active melatonin 5 MG tablet Take 1 tablet by mouth if needed Active Multiple Vitamin (Multivitamin Adult) tablet Take 1 tablet by mouth 1 (one) time each day at the same time. Active niacin 500 MG tablet Take 1 tablet by mouth 1 (one) time each day at the same time. Active alpha tocopherol (Vitamin E) 400 units capsule Take 2 capsules by mouth 1 (one) time each day at the same time. Active zinc gluconate 50 MG tablet Take 1 tablet by mouth 1 (one) time each day at the same time. Active co-enzyme Q-10 30 MG capsule Take 30 mg by mouth in the morning. Active magnesium 30 MG tablet Take 30 mg by mouth in the morning. Active sodium chloride 1 g tablet Take 1 g by mouth Daily as needed. Active polyethylene glycol, PEG, 3350 (Miralax) 17 g packet Take 17 g by mouth Daily as needed. Active OneTouch Ultra test stripIndications: Type 2 diabetes mellitus with diabetic polyneuropathy, with long-term current use of insulin ([facility]) USE TO TEST BLOOD SUGAR TWICE DAILY 200 strip 3 024 Active lisinopril 40 MG tabletIndications :Essential hypertension TAKE 1 TABLET EVERY MORNING 100 tablet 3 024 Active hydroCHLOROthiazi de (HYDRODiuril) 25 MG tabletIndications :Essential hypertension TAKE 1 TABLET EVERY MORNING 100 tablet 3 024 Active SITagliptin-metFO RMIN (Janumet) 50-500 MG tabletIndications :Type 2 diabetes mellitus with diabetic polyneuropathy, with long-term current use of insulin ([facility]) Take 2 tablets by mouth in the morning. 180 tablet 3 024 Active atorvastatin (Lipitor) 20 MG tabletIndications :Essential hypertension TAKE 1 TABLET EVERY DAY 90 tablet 3 024 Active metoprolol tartrate (Lopressor) 25 MG tabletIndications :Essential hypertension TAKE 1 TABLET THREE TIMES DAILY (IN THE MORNING, IN THE EVENING, AND BEFORE BEDTIME) 270 tablet 3 024 Active naproxen (Naprosyn) 500 MG tabletIndications :Hand weakness TAKE 1 TABLET TWICE DAILY WITH FOOD OR MILK 180 tablet 025 Active levothyroxine (Synthroid, Levoxyl) 88 MCG tabletIndications :Acquired hypothyroidism TAKE 1 TABLET IN THE MORNING BEFORE A MEAL 90 tablet 3 025 Active omeprazole (PriLOSEC) [address] capsuleIndication s:Gastroesophagea l reflux disease without esophagitis TAKE 1 CAPSULE EVERY DAY 100 capsule 3 025 Active fenofibrate (Tricor) 145 MG tabletIndications :Mixed hyperlipidemia TAKE 1 TABLET EVERY DAY 100 tablet 025 Active Stiolto Respimat 2.5-2.5 MCG/ACT aerosol solution inhalerIndication s:Chronic obstructive pulmonary disease, unspecified ([facility]) INHALE 2 PUFFS EVERY DAY 12 g 3 025 Active insulin pen needle (Droplet Pen [place]) 32G x 4 mm miscIndications:O ther specified diabetes mellitus with other specified complication, unspecified whether care home insulin use ([facility]) USE INSTRUCTED 300 each 3 025 Active OXcarbazepine (Trileptal) 300 MG tabletIndications :Other diabetic neurological complication associated with type 2 diabetes mellitus (HCC) TAKE 1 TABLET IN THE MORNING AND TAKE 1 TABLET BEFORE BEDTIME 200 tablet 3 025 Active torsemide (Demadex) 10 MG tabletIndications :Lymphedema TAKE 1 TABLET EVERY MORNING 100 tablet 025 Active clopidogrel (Plavix) 75 MG tabletIndications :Stenosis of carotid artery, unspecified laterality TAKE 1 TABLET EVERY MORNING 100 tablet 025 Active insulin glargine (Lantus SoloStar) 100 UNIT/ML penIndications:Ty pe 2 diabetes mellitus with diabetic polyneuropathy, with long-term current use of insulin ([facility]) Inject 22 Units under the skin at bedtime 025 Active ALPRAZolam (Xanax) 0.5 MG tabletIndications :Other insomnia Take 1 tablet (0.5 mg) by mouth as needed at bedtime for anxiety 30 tablet 025 2024 Active gabapentin (Neurontin) 600 MG tabletIndications :Type 2 diabetes mellitus with diabetic polyneuropathy, with long-term current use of insulin (HCC) Take 1 tablet (600 mg) by mouth in the morning and 1 tablet (600 mg) in the evening and 1 tablet (600 mg) before bedtime. 300 tablet 3 025 Active amLODIPine (Norvasc) 10 MG tabletIndications :Essential hypertension TAKE 1 TABLET (10 MG) BY MOUTH DAILY. 100 tablet 1 025 Active gabapentin (Neurontin) 600 MG tabletIndications :Type 2 diabetes mellitus with diabetic polyneuropathy, with long-term current use of insulin (HCC) Take 1 tablet (600 mg) by mouth in the morning and 1 tablet (600 mg) in the evening and 1 tablet (600 mg) before bedtime. 300 tablet 3 024 2024 Discontinued(R eorder) amLODIPine (Norvasc) 10 MG tabletIndications :Essential hypertension TAKE 1 TABLET (10 MG) BY MOUTH DAILY. 100 tablet 1 025 2024 Discontinued ALPRAZolam (Xanax) 0.5 MG tabletIndications :Other insomnia Take 1 tablet (0.5 mg) by mouth as needed at bedtime for anxiety 30 tablet 025 2024 Discontinued(R eorder) Active Problems Problem Noted Date Diagnosed Date Bilateral carotid bruits 10/11/2024 Routine general medical examination at [facility] 12/26/2023 Atherosclerosis of aorta 12/26/2023 Assessment & Plan (12/26/2023 11:18 AM EDT): Found on imaging. Make sure we control DM HTN A1c ordered Other secondary pulmonary hypertension Assessment & Plan (12/26/2023 11:20 AM EDT): Ound on Echo No CHF sxs or edema Epilepsy, unspecified, not i ntractable, without status epilepticus 12/26/2023 Assessment & Plan (10/11/2024 3:53 PM EDT): Controlled with meds Assessment & Plan (12/26/2023 11:22 AM EDT): Stable Follow up with Neuro as needed Saw Neuro last week also said back non surgical Heart failure, unspecified 12/26/2023 Assessment & Plan (10/11/2024 3:53 PM EDT): Continue current meds. Assessment & Plan (12/26/2023 11:18 AM EDT): No symptoms currently Peripheral vascular disease, unspecified Assessment & Plan (12/26/2023 11:19 AM EDT): Continue current meds Diabetes mellitus with peripheral vascular disea se 12/26/2023 Assessment & Plan (10/11/2024 3:53 PM EDT): No Tobacco use Follow ADA 1800 diet low carbohydrate Continue Med Compliance Goal LDL less than 100 Goal BP 130/80 Goal HgbA1c < 7.0% Monitor Feet, monitor for infection Needs Exercise Yearly eye exams Prior to your visit today we reviewed your chart and outlined testing and treatment needed for your care. Reviewed poissble complications of diabetes including, loss of vision, kidney failure and increased risk of heart attacks and stroke. We made recommendations on how to control your blood sugars, and minimize your risk of these complications. We discussed your current barriers to a healthy living and importance of healthy diet and exercise. Assessment & Plan (12/26/2023 11:19 AM EDT): No Tobacco use Follow ADA 1800 diet low carbohydrate Continue Med Compliance Goal LDL less than 100 Goal BP 130/80 Goal HgbA1c < 7.0% Monitor Feet, monitor for infection Needs Exercise Yearly eye exams Prior to your visit today we reviewed your chart and outlined testing and treatment needed for your care. Reviewed poissble complications of diabetes including, loss of vision, kidney failure and increased risk of heart attacks and stroke. We made recommendations on how to control your blood sugars, and minimize your risk of these complications. We discussed your current barriers to a healthy living and importance of healthy diet and exercise. OLIVA (obstructive sleep apnea) 12/20/2023 Assessment & Plan (12/20/2023 2:45 PM EDT): Get old chart rasheed PSGs. Hypervitaminosis B6 12/20/2023 Assessment & Plan (12/20/2023 3:06 PM EDT): Stop B-complex. Remain on MVI alone. Redo B6 4-8 w. Lumbar paraspinal muscle spasm 12/20/2023 Assessment & Plan (12/20/2023 3:04 PM EDT): PT - add lumbar spine to curr regimen. I do not feel that there is a surgical lesion at present. May have tizanidine 2 mg hs, incr to 4 mg if need be, if/when pt decides. Carpal tunnel syndrome, bilateral 12/20/2023 Assessment & Plan (12/20/2023 3:03 PM EDT): Use splints B nightly! PT/OT please fit for B wrist splints.) Acute delirium 08/25/2023 Agitation states as acute re action to exceptional (gross) stress 08/25/2023 Assessment & Plan (05/08/2024 8:57 AM EST): Patient's Medicine is effective at controlling symptoms at current dose and frequency. PDMP reviewed with no evidence of overuse and abuse D/W patient to avoid use of benzodiazepines when consuming alcohol Advised against operating heavy machinery and driving long distances while on medicines. Breathing problem 08/25/2023 H/O carotid endarterectomy 08/25/2023 Hypertensive emergency 08/25/2023 Assessment & Plan (05/08/2024 9:07 AM EST): Add Norvasc Take all current blood medications If with severe or stroke like symptoms got to ER Noncompliance 08/25/2023 Claustrophobia 08/25/2023 Acute bilateral low back pain with sciatica 04/16 Assessment & Plan (05/10/2023 3:51 PM EST): Stretching exercises. Will do XR and meds and PT first. 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 12/27/2022 Assessment & Plan (08/25/2023 2:25 PM EDT): Do an MRI Consider Referral pain specialist or neurosurgeon Chronic obstructive pulmonary disease 10/31/2022 Carotid artery stenosis 10/31/2022 Assessment & Plan (08/25/2023 2:24 PM EDT): Needs to f/up with vascular surgery Carpal tunnel syndrome 10/31/2022 Complicated migraine 10/31/2022 Diabetes mellitus 10/31/2022 Assessment & Plan (05/08/2024 8:56 AM EST): No Tobacco use Follow ADA 1800 diet low carbohydrate Continue Med Compliance Goal LDL less than 100 Goal BP 130/80 Goal HgbA1c < 7.0% Monitor Feet, monitor for infection Needs Exercise Yearly eye exams Prior to your visit today we reviewed your chart and outlined testing and treatment needed for your care. Reviewed poissble complications of diabetes including, loss of vision, kidney failure and increased risk of heart attacks and stroke. We made recommendations on how to control your blood sugars, and minimize your risk of these complications. We discussed your current barriers to a healthy living and importance of healthy diet and exercise. Grade II diastolic dysfunction 10/31/2022 Assessment & Plan (10/11/2024 3:56 PM EDT): Needs better BP control Benign hypertension 10/31/2022 Assessment & Plan (10/11/2024 3:54 PM EDT): Our specific goals, for your hypertension, is to keep your blood pressure less than 140/90, and the importance of weight control. We made recommendations on how to control your blood pressure, and minimize your risk of these copmplications. We also discussed your current barriers to a healthy living and importance of healthy diet and exercise. Prior to your visit today we have reviewed your chart and formed a plan to assist with providing you the best possible care. We reviewed the possible complications of hypertension including, stroke, heart failure and kidney impairment. In addition, we discussed your medications, the importance of taking them as prescribed. DASH diet handouts Gastroesophageal reflux disease 10/31/2022 Hand weakness 10/31/2022 Hyperlipidemia 10/31/2022 Assessment & Plan (05/08/2024 9:06 AM EST): This is a chronic medical condition that is stable since last assessment. No changes in treatment are suggested at this time. Continue Current meds. 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 Renal cysts, acquired, bilateral 10/31/2022 Smoker 10/31/2022 Transient ischemic attack 10/31/2022 White matter disease 10/31/2022 Resolved Problems Problem Noted Date Diagnosed Date Resolved Date Acute exacerbation of chroni c obstructive pulmonary disease 10/31/2022 12/27/2022 Diabetic neuropathy 10/31/2022 12/28/19 23 Encounters Date Type Department Care Team Description 11/18/2024 Refill [facility] [address] [facility] [address] [place] [id number] Nohemy Guajardo MD Essential hypertension 11/12/2024 Telephone [facility] [address] [facility] [address] [place] [id number] Nohemy Guajardo MD 11/09/2024 Refill [facility] [address] [facility] [address] [place] [id number] Nohemy Guajardo MD Type 2 diabetes mellitus with diabetic polyneuropathy, with long-term current use of insulin (HCC) 11/09/2024 Refill [facility] [address] [facility] [address] [place] [address] Nohemy Guajardo MD Other insomnia 10/22/2024 Results Follow-Up [facility] [address] [facility] [address] [place] [address] Nohemy Guajardo MD 10/19/2024 10:30 AM EDT Ancillary Procedure [facility] [address] [place] [address] Bilateral carotid bruits 10/19/2024 Travel 10/12/2024 Telephone [facility] [address] [facility] [address] [place] [address] Latonya Marie PA 10/11/2024 3:30 PM EDT Office Visit [facility] [address] [facility] [address] [place] [address] Nohemy Guajardo MD Diabetes mellitus with peripheral vascular disease (HCC) (Primary Dx); Epilepsy, unspecified, not intractable, without status epilepticus (HCC); Other secondary pulmonary hypertension (HCC); Heart failure, unspecified (HCC); Benign hypertension ; Grade II diastolic dysfunction; Type 2 diabetes mellitus with diabetic polyneuropathy, with long-term current use of insulin (HCC); Bilateral carotid bruits 10/11/2024 Telephone [facility] [address] [facility] [facility] [address] [place] [address] Nohemy Guajardo MD 10/11/2024 Travel 10/09/2024 Refill [facility] [address] [facility] [address] [place] [address] Nohemy Guajardo MD Other insomnia 10/01/2024 Refill [facility] [address] [facility] [address] [place] [address] Delia Hernandez, RACING SECR[employer]ARY Stenosis of carotid artery, unspecified laterality 10/01/2024 Refill [facility] [address] [facility] [address] [place] [address] Nohemy Guajardo MD Other diabetic neurological complication associated with type 2 diabetes mellitus (HCC); Lymphedema 09/06/2024 Refill [facility] [address] [place] [address] [place] [address] Alexandriaanahy Mariia, JORI Other insomnia 08/27/2024 Refill [facility] [address] [place] [address] [place] [address] Nohemy Guajardo MD Type 2 diabetes mellitus with diabetic polyneuropathy, with long-term current use of insulin (HCC) 08/20/2024 Refill [facility] [address] [place] [address] [place] [address] Nohemy Guajardo MD Chronic obstructive pulmonary disease, unspecified (HCC); Other specified diabetes mellitus with other specified complication, unspecified whether terminal worker insulin use (HCC) from Last 3 Months Immunizations Immunization Administration Dates Next Due Influenza, High Dose Seasonal, Preservative Free 01/06/2024,03/19/2022 Influenza, Recombinant, injectable, preservative free 04/21/2021 Influenza, Seasonal, Quadrivalent, Adjuvanted Novel [id number], preservative-free 06/13 Pneumococcal Conjugate PCV 13 11/07/2020 Pneumococcal Polysaccharide PPSV23 2018 RSV, recombinant, protein bravo bunit RSVpreF, adjuvant reconstitu, 120mcg/0.5mL, PF (Arexvy) 06/17/2023 Tdap 01/04/2022,10/30/2021 Zoster, Recombinant 11/07/2020 Family History Medical History Relation Name Comments Cancer Father Cancer Mother Diabetes Mother Heart disease Mother Hypertension Mother Relation Name Status Comments Father Mother Sister 3 sisters Social History Tobacco Use Types Packs/Day Years Used Date Smoking Tobacco: Every Day Cigarettes 1.5 50 Smokeless Tobacco: Never Tobacco Cessation:Ready to Q uit: Not Asked; Counseling Given: Not Answered Comments:11-20 cigs/day Alcohol Use Standard Drinks/Week Comments Never 0 (1 standard drink = 0.6 oz pure alcohol) Caffeine intake: more than 4 cups per day PHQ-2 Answer Date Recorded Patient Health Questionnaire-2 Score 0 10/11/2024 Comments Unknown Sex and Gender Information Value Date Recorded Sex Assigned at Not on file Legal Sex Female 8:06 PM EDT Gender Identity Not on file Sexual Orientation Not on file Last Filed Vital Signs Vital Sign Reading Time Taken Comments Blood Pressure 130/60 10/11/2024 3:48 PM EDT Pulse 64 10/11/2024 3:48 PM EDT Temperature - - Respiratory Rate 17 05/08/2024 8:24 AM EST Oxygen Saturation 94% 10/11/2024 3:48 PM EDT Inhaled Oxygen Concentration - - Weight 78 kg (172 lb) 10/11/2024 3:48 PM EDT Height 149.9 cm (4' 11 ) 10/11/2024 3:48 PM EDT Body Mass Index 34.74 10/11/2024 3:48 PM EDT Plan of Treatment Upcoming Encounters Date Type Department Care Team (Late st Contact Info) Description 04/02/2025 1:00 PM EST Office Visit [facility] [address] [facility] [address] [place] [address] Nohemy Guajardo MD [address] [facility] [address] [place] [address] Health Maintenance Due Date Last Done Comments Lung Cancer Screening Shared Decision Making 1945 Diabetes: Retinopathy Screening 02/28/2022 0 Diabetes: Urine Protein Screening 05/10/2024 05/10/2023, 10/28/2020, 10/22/2019 Medicare Annual Wellness (AWV) 12/25/2024 0 12/26/2023, 12/27/2022, 10/30/2021, Additional history exists Diabetes: Hemoglobin A1C 01/11/2025 025, 12/26/2023, 08/25/2023, Additional history exists Influenza Vaccine (#1) 2025 4, 03/21/2023, 03/19/2022, Additional history exists FIT-DNA Discontinued 11/23/2019, 11/23/2019 Pneumococcal Vaccine: 65+ Years Completed 1, 2018 FOBT Discontinued 11/10/2020 Colonoscopy Discontinued 01/20/2022, 01/05/2022 Colorectal Cancer Screening Discontinued CT Colonography Discontinued FIT Discontinued Sigmoidoscopy Discontinued Procedures Procedure Name Priority Date/Time Associated Diagnosis Comments [facility] US CAROTID ARTERY DUPLEX BILATERAL Routine 10/19/2024 11:02 AM EDT Bilateral carotid bruits POCT GLYCATED HEMOGLOBIN, TOTAL Routine 10/11/2024 3:59 PM EDT Diabetes mellitus with peripheral vascular disease (HCC) MICROALBUMIN / CREATININE URINE RATIO Routine 05/10/2023 3:42 PM EST Type 2 diabetes mellitus with diabetic polyneuropathy, with long-term current use of insulin (HCC) COLONOSCOPY Routine 01/05/2022 12:00 PM EDT Iron deficiency anemia secondary to blood loss (chronic) Anemia, unspecified OCC BLD IMMUNO SCREEN Routine 11/10/2020 COLOR FUNDUS PHOTOGRAPHY - OU - BOTH EYES Routine 02/29/2020 12:00 PM EDT LAB COLOGUARD COLON CANCER SCREEN Routine 11/23/2019 from Last 3 Months or Most Recently Relevant to Health Maintenance Results * Vascular US carotid artery duplex bilateral (10/19/2024 11:02 AM EDT) Anatomical Region Laterality Modality Neck Ultrasound 10/22/2024 10:5 5 AM EDT Narrative 10/22/2024 10:55 AM EDT EXAM: [facility] US CAROTID ARTERY DUPLEX BILATERAL HISTORY: Bilateral carotid bruit. History of endarterectomy 15 years ago. COMPARISON: None available. TECHNIQUE: Two-dimensional grayscale, color and spectral Doppler ultrasound imaging of the bilateral carotid arteries was performed. FINDINGS: There is mild plaque visualized in the right common carotid artery and bulb, extending into the internal carotid artery resulting in less than 50% stenosis. The peak systolic and end diastolic velocities in the distal right CCA, ICA and ECA are 67/11, 105/20 and 163 cm/s. The ICA/CCA ratio is 1.6. The external carotid artery is patent with antegrade flow. Antegrade flow is present in the vertebral artery. There is [id number] plaque visualized in the left common carotid artery and bulb, extending into the internal carotid artery resulting in less than 50% stenosis. The peak systolic and end diastolic velocities in the distal left CCA, ICA and ECA are 68/9, 92/23 and 173 cm/s. The ICA/CCA ratio is 1.4. The external carotid artery is patent with antegrade flow. Antegrade flow is present in the vertebral artery. IMPRESSION: 1. Less than 50% stenosis of the bilateral internal carotid arteries utilizing SRU criteria. Interpreted by: Electronically signed by CARLOZ HEARD II, MD, PHD at 22-Oct-2024 10:54:18 AM [facility] SRU criteria: <180 No plaque <2.0 Normal <180 <50% plaque <2.0 <50% 180-230 >50% plaque 2.0 - 4.0 50-69% >230 >50% plaque >4.0 >70% PSV 125-180 cm/sec and ICA/CCA PSV Ratio >= 2.0 is also consistent with 50- 69% stenosis. Procedure Note Carloz Heard MD - 10/22/2024 EXAM: [facility] US CAROTID ARTERY DUPLEX BILATERAL HISTORY: Bilateral carotid bruit. History of endarterectomy 15 yearsago. COMPARISON: None available. TECHNIQUE: Two-dimensional grayscale, color and spectral Dopplerultrasound imaging of the bilateral carotid arteries was performed. FINDINGS: There is mild plaque visualized in the right common carotid artery andbulb, extending into the internal carotid artery resulting in less than50% stenosis. The peak systolic and end diastolic velocities in thedistal right CCA, ICA and ECA are 67/11, 105/20 and 163 cm/s. The ICA/CCAratio is 1.6. The external carotid artery is patent with antegrade flow.Antegrade flow is present in the vertebral artery. There is [id number] plaque visualized in the left common carotidartery and bulb, extending into the internal carotid artery resulting inless than 50% stenosis. The peak systolic and end diastolic velocities inthe distal left CCA, ICA and ECA are 68/9, 92/23 and 173 cm/s. TheICA/CCA ratio is 1.4. The external carotid artery is patent withantegrade flow. Antegrade flow is present in the vertebral artery. IMPRESSION: 1. Less than 50% stenosis of the bilateral internal carotid arteriesutilizing SRU criteria. Interpreted by: Electronically signed by CARLOZ HEARD II, MD, PHD [id number] 10:54:18 AM [facility] SRU criteria: <180 No plaque <2.0 Normal <180 <50% plaque <2.0 <50% 180-230 >50% plaque 2.0 - 4.0 50-69% >230 >50% plaque >4.0 >70% PSV 125-180 cm/sec and ICA/CCA PSV Ratio >= 2.0 is also consistent [id number]% stenosis. us Nohemy Guajardo MD IMG US PROCEDURES Final Result * POCT Glycated hemoglobin, total (10/11/2024 3:59 PM EDT) Hemoglobin A1C 4.8 Blood 10/11/2024 3:59 PM EDT us Nohemy Guajardo MD POINT OF CARE TEST ENTER/EDIT OR DERABLES Final Result * (ABNORMAL) Microalbumin / creatinine, urine ratio (05/10/2023 3:42 PM EST) CREATININE, RANDOM URINE 30 20 - 275 mg/dL [facility] ALBUMIN, URINE 7.5 See Note: mg/dL [facility] Comment: Reference Range: Reference Range Not established ALBUMIN/CREATININE RATIO, RANDOM URINE 250(H) <30 mcg/mg creat [facility] Comment: The ADA defines abnormalities in albumin excretion as follows: Albuminuria Category Result (mcg/mg creatinine) Normal to Mildly increased <30 Moderately increased 30-299 Severely increased > OR = 300 The ADA recommends that at least two of three specimens collected within a 3-6 month period be abnormal before considering a patient to be within a diagnostic category. Urine Urine specimen obtained by clean catch procedure / Unknown 05/10/2023 3:42 PM EST 05/10/2023 3:42 PM EST Narrative Resulting Agency Comment Performing Organization Information Site ID: QPT Name: [facility] Address: [address], [address] [place] [address] Director: Дмитрий Mendoza MD Nohemy Guajardo MD LAB URINE ORDERABLES Final Resul t Performing Organization Address [facility] Co de Phone Number [facility] * Colonoscopy (01/05/2022 12:00 PM EDT) Anatomical Region Laterality Modality Endoscopy 01/05/2022 12:0 0 PM EDT Narrative 01/05/2022 12:00 PM EDT PERFORMED AT [facility] LOCATION:[id number] Procedure Note CONVERSION, GENERIC - 09/29/2022 PERFORMED AT [facility] LOCATION:[id number] Jesse Rahman MD ENDOSCOPY PROCEDURE ORDERABL ES Final Result * OCC BLD IMMUNO SCREEN (11/10/2020) [facility] OCCULT BLOOD NEGATIVE NEGATIVE [facility] PERFORMING LAB: see note [facility] Comment:[address] [facility] - [place] Latonya Jarrett,[place] [address] ,Ext. [phone] 11/10/2020 Nohemy Guajardo MD [facility] Final Result Performing Organization Address [facility] Co de Phone Number [facility] * Color Fundus Photography - OU - Both Eyes (02/29/2020 12:00 PM EDT) Anatomical Region Laterality Modality Head Fundus Photograp hy 02/29/2020 12:0 0 PM EDT Narrative 02/29/2020 12:00 PM EDT PERFORMED AT [facility] LOCATION:[id number] [facility] Procedure Note CONVERSION, GENERIC - 09/29/2022 PERFORMED AT [facility] LOCATION:[id number] [facility] Nohemy Guajardo MD OPHTH PHOTOGRAPHY Final Result * Cologuard® colon cancer screening (11/23/2019) COLOGUARD RESULT REPORTABLE Negative Not Applicable [facility] Comment: A negative result indicates a low likelihood that a colorectal cancer (CRC) or an advanced adenoma (adenomatous polyps with more advanced pre-malignant features) is present. The chance that a person with a negative Cologuard test has a colorectal cancer is less than 1 in 1500 (negative predictive value >99.9%) or has an advanced adenoma is less than 5.3% (negative predictive value 94.7%). These data are based on a prospective cross-sectional screening study of 10,000 individuals at average risk for colorectal cancer who were screened with both Cologuard and colonoscopy. (Patricia Madera et al, N Engl J Med 2014;370(14):5886-0517) The normal value (reference range) for this assay is negative. COLOGUARD RE-SCREENING RECOMMENDATION: Periodic routine colorectal cancer screening is an important part of preventive healthcare for asymptomatic persons at average risk for colorectal cancer. Following a negative Cologuard result, the [place] Cancer Society and U.S. Multi-Society Task Force screening guidelines recommend a Cologuard re-screening interval of 3 years. References: [place] [employer] Society (ACS). Colorectal cancer prevention and early detection. [place], [place]: [place] [employer]; [updated 2015Sep 06]. https://www.cancer.org/cancer/zstid-zntbfc-wjireh/skuxkwzfi-bbvjizzwg-dpjpdky/ac s-rec ommendations.html. Accessed January 13, 2018; Dominic DK, Tamiko HARMON, Lance KayK, Colorectal Cancer Screening: Recommendations for Physicians and Patients from the U.S. Multi-Society Task Force on Colorectal Cancer Screening, Am J Gastroenterology 2017; 112:5511-0909. TEST TYPE: Composite algorithmic analysis of stool DNA-biomarkers with hemoglobin immunoassay. Quantitative values of individual biomarkers are not reportable and are not associated with individual biomarker result reference ranges. PRECAUTIONS AND LIMITATIONS: Cologuard is intended for colorectal cancer screening of adults of either sex, 45 years or older, who are at average-risk for colorectal cancer (CRC). Cologuard has been approved for use by the U.S. FDA. Cologuard may produce a false negative or false positive result. A negative Cologuard test result does not guarantee the absence of CRC or advanced adenoma (pre-cancer). Patients with a negative Cologuard test result should be advised to continue participating in a colorectal cancer screening program. The screening interval for Cologuard is currently recommended at an interval of every 3 years by the [place] [employer] and U.S. Multi-Society Task Force. A false positive result occurs when Cologuard produces a positive result, even though a colonoscopy may not find colorectal cancer or precancerous polyps. The performance of Cologuard has been established in a cross sectional study (i.e., single point in time) of average-risk adults aged 50-84. Cologuard performance in patients ages 45 to 49 years was estimated by sub-group analysis of near-age groups. Cologuard performance data in a 10,000 patient pivotal study using colonoscopy as the reference method can be accessed at the following location: www.RedCap/results. Additional description of the Cologuard test process, warnings and precautions can be found at www.cologuardtest.com. Rx only. 11/23/2019 Nohemy Guajardo MD LAB MOLECULAR DIAGNOSTICS ORDERA NENITA Final Result [facility] from Last 3 Months or Most Recently Relevant to Health Maintenance Insurance MEDICARE [facility] Care Teams Emergency Medical Services Coordinator Relationship Specialty Start Date End Date Nohemy Guajardo MD [address] [facility] [address] [place] [address] PCP - ACO Reach 10/07/22 Nohemy Guajardo MD [address] [facility] [address] [place] [address] PCP - General Family Medicine 10/28/22
--- OUTSIDE RECORDS SUMMARY | 2024-11-19 11:27 | XMS_ITS | Encounter Summary ---
Author Organization [facility] Address [address] [place] [address] Care Team Providers Care Aeronautical Engineering Teacher Name Role Phone Nohemy Guajardo MD Unavailable Nohemy Guajardo MD Primary Care Provider [phone] Encounter Details Date Type Department Care Team (Late Contact Info) Description 09/16/2023 External Result Encounter [facility] External Department Unsolicited Nohemy Guajardo MD [address] [place] [facility] 110 [place], [place] [id number] Social History Tobacco Use Types Packs/Day Years [...] Upcoming Encounters Date Type Department Care Team ([facility] Contact Info) Description 04/02/2025 1:00 PM EST Office Visit [facility] 112 [facility] 110 [place] [address] Nohemy Guajardo MD 112 [facility] 110 [place], [place] [id number] documented as of this encounter Procedures Procedure Name Priority Date/Time Associated Diagnosis Comments MR LUMBAR SPINE WO CONTRAST 09/16/2023 10:46 AM EDT documented in this encounter Results * MR lumbar spine wo contrast (09/16/2023 10:46 AM EDT) Anatomical Region Laterality Modality Spine, L-spine Magnetic Resonan ce 09/16/2023 10:4 6 AM EDT Impressions 09/16/2023 10:59 AM EDT OSTEOPENIA AND DEGENERATIVE CHANGES. MRI LUMBAR SPINE WITHOUT CONTRAST COMPARISON: None Multiecho imaging in the axial and sagittal plane was performed without contrast. There is mild anterolisthesis of L4 on L5. No acute compression fractures are identified. There are discovertebral degenerative changes, greatest at L4-5 though also at the lumbosacral junction. The conus medullaris is normal caliber, position and signal intensity. Renal cysts are present. At T12-L1 and L1-2, there is no significant disc disease or stenosis. At L2-3, there is mild annular disc bulging, greater toward the neural foramen. Minor facet and ligament hypertrophy is seen. There is thecal sac effacement. There is no significant foraminal impingement. At L3-4, there is mild narrowing of the disc space. Moderate annular disc bulging is visualized. There is slight cephalad extension of disc material, greater centrally. There is moderate facet and ligamentous hypertrophy. There is a small synovial cyst on the left along the anterior margin of the lamina measuring 4 mm in size. There is moderate central stenosis and crowding of the nerve roots. There is moderate left and mild to moderate right foraminal encroachment. At L4-5, there is narrowing of the disc space. Annular disc bulging is present, asymmetric extending laterally on the right. There is also partial uncovering of the disc and slight cephalad extension of disc material. There is prominent bilateral facet disease and thickening of ligamentum flavum. There is moderate thecal sac effacement. There is severe right and at least moderate left foraminal encroachment. At the lumbosacral junction, there is narrowing of the disc space. Annular disc bulging is visualized, slightly asymmetric extending laterally on the left. There is bilateral facet disease. No significant thecal sac effacement is identified. There is moderate left and mild right foraminal encroachment. IMPRESSION: LOWER LUMBAR DISCOVERTEBRAL DEGENERATIVE CHANGES FROM L3 - 4 DOWN WITH ASSOCIATED STENOSIS OUTLINED ABOVE. Impression dictated by: Latonya Riggs M.D.09/16/2023 10:57 AM Dictation Location: [id number]-12 Transcribed By: [facility] 09/16/23 1057 Dictated By: Latonya Riggs MD 09/16/23 1046 Signed By: <Electronically signed by MD Latonya Riggs in OV> 09/16/23 1057 Narrative 09/16/2023 10:59 AM EDT [facility] Main Drifting [address] [place] [address] XRay Report Signed Patient: Lovely Martin MR#: [id number] : 1945 Acct:[id number] Age/Sex: 78 / F ADM Date: 09/16/23 Loc: Room: Type: [facility] Attending Dr: Nohemy Guajardo MD Copies to: Nohemy Guajardo MD Ordering Provider: Nohemy Guajardo MD Date of Service: 09/16/23 MR/MR lumbar spine wo con: M51.36, M43.16 M54.42, M54.41 ([id number]) XR/XR pre/post mri xray: M54.42, M54.41, M51.36, M43.16 CLINICAL DATA: Acute bilateral low back pain with radiculopathy. No reported injury. PRE-MRI LUMBAR SPINE - 2 views COMPARISON: None AP and lateral standing views were obtained. There is osteopenia. There is approximately 5 mm retrolisthesis of L4 on L5. Alignment is otherwise maintained. No acute compression fractures are seen. This is space narrowing from L3 - 4 down. There is mild endplate spurring and mid and lower lumbar facet hypertrophy. The SI joints are intact. There is atherosclerotic plaque involving the aorta and its branches. There is moderate stool within the distal colon. XR/XR pre/post mri xray Procedure Note Radiology, Radiologist, - 09/16/[address] [facility] Main Drifting [address] [place] [address] XRay Report Signed Patient: Lovely Martin AMR#: [id number] : 8Acct:[id number] Age/Sex: 78 / FADM Date: 09/16/23 Loc: Room:Type: [facility] Attending Dr: Nohemy Guajardo MD Copies to: Nohemy Guajardo MD Ordering Provider: Nohemy Guajardo MD Date of Service: 09/16/23 MR/MR lumbar spine wo con: M51.36, M43.16M54.42, M54.41 ([id number]) XR/XR pre/post mri xray: M54.42, M54.41, M51.36, M43.16 CLINICAL DATA: Acute bilateral low back pain with radiculopathy. Noreported injury. PRE-MRI LUMBAR SPINE - 2 views COMPARISON: None AP and lateral standing views were obtained. There is osteopenia. There isapproximately 5 mm retrolisthesis of L4 on L5. Alignment is otherwise maintained. No acutecompression fractures are seen. This is space narrowing from L3 - 4 down. There is mild endplatespurring and mid and lower lumbar facet hypertrophy. The SI joints are intact. There isatherosclerotic plaque involving the aorta and its branches. There is moderate stool within the distal colon. XR/XR pre/post mri xray IMPRESSION: OSTEOPENIA AND DEGENERATIVE CHANGES. MRI LUMBAR SPINE WITHOUT CONTRAST COMPARISON: None Multiecho imaging in the axial and sagittal plane was performed withoutcontrast. There is mild anterolisthesis of L4 on L5. No acute compression fracturesare identified. There are discovertebral degenerative changes, greatest at L4-5 though also at thelumbosacral junction. The conus medullaris is normal caliber, position and signal intensity. Renalcysts are present. At T12-L1 and L1-2, there is no significant disc disease or stenosis. At L2-3, there is mild annular disc bulging, greater toward the neuralforamen. Minor facet and ligament hypertrophy is seen. There is thecal sac effacement. There is nosignificant foraminal impingement. At L3-4, there is mild narrowing of the disc space. Moderate annular discbulging is visualized. There is slight cephalad extension of disc material, greater centrally.There is moderate facet and ligamentous hypertrophy. There is a small synovial cyst on the left alongthe anterior margin of the lamina measuring 4 mm in size. There is moderate central stenosis andcrowding of the nerve roots. There is moderate left and mild to moderate right foraminal encroachment. At L4-5, there is narrowing of the disc space. Annular disc bulging ispresent, asymmetric extending laterally on the right. There is also partial uncovering of the disc andslight cephalad extension of disc material. There is prominent bilateral facet disease andthickening of ligamentum flavum. There is moderate thecal sac effacement. There is severe right and atleast moderate left foraminal encroachment. At the lumbosacral junction, there is narrowing of the disc space. Annulardisc bulging is visualized, slightly asymmetric extending laterally on the left. There isbilateral facet disease. No significant thecal sac effacement is identified. There is moderate leftand mild right foraminal encroachment. IMPRESSION: LOWER LUMBAR DISCOVERTEBRAL DEGENERATIVE CHANGES FROM L3 - 4 DOWN WITHASSOCIATED STENOSIS OUTLINED ABOVE. Impression dictated by: Latonya Riggs M.D.09/16/2023 10:57 AM Dictation Location: [place] [address] Transcribed By: [facility] 09/16/23 1057 Dictated By: Latonya Riggs MD 09/16/23 1046 Signed By: <Electronically signed by MD Latonya Riggs in OV> 09/16/23 1057 Nohemy Guajardo MD IMG MRI PROCEDURES Final Result documented in this encounter Visit Diagnoses Not on filedocumented in this encounter Additional Health Concerns Assessment Noted Time PHQ-9 Depression Total Score: 5 12/28/19 23 8:00 AM EDT documented as of this encounter Care Teams Aeronautical Engineering Teacher Relationship Specialty Start Date End Date Nohemy Guajardo MD [address] [place] [address] PCP - ACO Reach 10/07/22 Nohemy Guajardo MD 112 [facility] 110 [place] [phone] PCP - General Family Medicine 10/28/22 documented as of this encounter
--- OUTSIDE RECORDS SUMMARY | 2024-11-19 11:27 | XMS_ITS | Encounter Summary ---
Author Organization [facility] Address [address] [place] [address] Care Team Providers Care Returned Goods Receiving Clerk Name Role Phone Nohemy Guajardo MD Unavailable Nohemy Guajardo MD Primary Care Provider [phone] Encounter Details Date Type Department Care Team ([facility] Contact Info) Description 12/31/2022 Abstract [facility] 112 [facility] 110 [place] [address] Nohemy Guajardo MD 112 [facility] 110 [place] [address] Social History Tobacco Use Types Packs/Day Years [...] Upcoming Encounters Date Type Department Care Team ([facility] Contact Info) Description 04/02/2025 1:00 PM EST Office Visit [facility] 112 [facility] 110 [place] [address] Nohemy Guajardo MD 112 [facility] 110 [place] [address] documented as of this encounter Visit Diagnoses Not on filedocumented in this encounter Additional Health Concerns Assessment Noted Time PHQ-9 Depression Total Score: 5 12/28/19 23 8:00 AM EDT documented as of this encounter Care Teams Returned Goods Receiving Clerk Relationship Specialty Start Date End Date Nohemy Guajardo MD 112 [facility] 110 [place] [address] PCP - ACO Reach 10/07/22 Nohemy Guajardo MD 112 [facility] 110 [place] [address] PCP - General Family Medicine 10/28/22 documented as of this encounter
--- OUTSIDE RECORDS SUMMARY | 2024-11-19 11:27 | XMS_ITS | Encounter Summary ---
Author Organization [facility] Address [address] [place] [address] Care Team Providers Care Steam Fitter Supervisor Maintenance Name Role Phone Nohemy Guajardo MD Unavailable Nohemy Guajardo MD Primary Care Provider [phone] Encounter Details Date Type Department Care Team ([facility] Contact Info) Description 05/17/2023 Abstract [facility] 112 [facility] 110 [place] [address] Nohemy Guajardo MD 112 [facility] 110 [place] [address] Social History Tobacco Use Types Packs/Day Years [...] Upcoming Encounters Date Type Department Care Team ([facility] Contact Info) Description 04/02/2025 1:00 PM EST Office Visit [facility] 112 [facility] [address] [place] [address] Nohemy Guajardo MD 112 [facility] [address] [place] [address] documented as of this encounter Visit Diagnoses Not on filedocumented in this encounter Additional Health Concerns Assessment Noted Time PHQ-9 Depression Total Score: 5 12/28/19 23 8:00 AM EDT documented as of this encounter Care Teams Steam Fitter Supervisor Maintenance Relationship Specialty Start Date End Date Nohemy Guajardo MD 112 [facility] 110 [place] [address] PCP - ACO Reach 10/07/22 Nohemy Guajardo MD 112 [facility] [address] [place] [address] PCP - General Family Medicine 10/28/22 documented as of this encounter
--- OUTSIDE RECORDS SUMMARY | 2024-11-19 11:27 | XMS_ITS | Encounter Summary ---
Author Organization [facility] Address [address] [place] [address] Care Team Providers Care Technology Applications Consultant Name Role Phone Nohemy Guajardo MD Unavailable Nohemy Guajardo MD Primary Care Provider [phone] Reason for Visit * Reason Onset Date Comments Med Refill 09/06/2024 Encounter Details Date Type Department Care Team (Late st Contact Info) Description 09/06/2024 Refill [facility] [address] [place] [address] [place] [address] Mariia Dos Santos LPN [address] [place] [address] Other insomnia Social History Tobacco Use Types Packs/Day Years Used Date Smoking Tobacco: Every Day Cigarettes 1.5 50 Smokeless Tobacco: Never Comments:11-20 cigs/day Alcohol Use Standard Drinks/Week Comments Never 0 (1 standard drink = 0.6 oz pure alcohol) Caffeine intake: more than 4 cups per day PHQ-2 Answer Date Recorded Patient Health Questionnaire-2 Score 0 12/26/2023 Comments Unknown Sex and Gender Information Value Date Recorded Sex Assigned at Not on file Legal Sex Female 8:06 PM EDT Gender Identity Not on file Sexual Orientation Not on file documented as of this encounter Miscellaneous Notes * Telephone Encounter - LUMA Garcia - 09/07/2024 12:29 PM EDT Please help pt get set up with a medication follow up appt with Dr. Guajardo within the next few weeks.Last refill for Xanax until seen. OARRS reviewed, Rx sent into patient's pharmacy. documented in this encounter Plan of Treatment Upcoming Encounters Date Type Department Care Team (Late st Contact Info) Description 04/02/2025 1:00 PM EST Office Visit [facility] [address] [address] Nohemy Guajardo MD 112 [facility] 110 [place] [address] documented as of this encounter Visit Diagnoses Diagnosis Other insomnia documented in this encounter Additional Health Concerns Assessment Noted Time PHQ-9 Depression Total Score: 4 12/26/19 24 10:00 AM EDT documented as of this encounter Care Teams Technology Applications Consultant Relationship Specialty Start Date End Date Nohemy Guajardo MD [address] [address] PCP - ACO Reach 10/07/22 Nohemy Guajardo MD 112 [facility] 110 [place] [address] PCP - General Family Medicine 10/28/22 documented as of this encounter
--- OUTSIDE RECORDS SUMMARY | 2024-11-19 11:27 | XMS_ITS | Encounter Summary ---
Author Organization [facility] Address [address] [place] [address] Care Team Providers Care Shear Scrapman Name Role Phone Nohemy Guajardo MD Unavailable Nohemy Guajardo MD Primary Care Provider [phone] Encounter Details Date Type Department Care Team ([facility] Contact Info) Description 07/03/2024 Abstract [facility] 112 [facility] 110 [place] [address] Nohemy Guajardo MD 112 [facility] 110 [place] [address] Social History Tobacco Use Types Packs/Day Years [...] Upcoming Encounters Date Type Department Care Team ([facility] Contact Info) Description 04/02/2025 1:00 PM EST Office Visit [facility] 112 [facility] 110 [place] [address] Nohemy Guajardo MD 112 [facility] [address] [place] [address] documented as of this encounter Visit Diagnoses Not on filedocumented in this encounter Additional Health Concerns Assessment Noted Time PHQ-9 Depression Total Score: 4 12/26/19 24 10:00 AM EDT documented as of this encounter Care Teams Shear Scrapman Relationship Specialty Start Date End Date Nohemy Guajardo MD 112 [facility] 110 [place] [address] PCP - ACO Reach 10/07/22 Nohemy Guajardo MD 112 [facility] 110 [place] [address] PCP - General Family Medicine 10/28/22 documented as of this encounter
--- OUTSIDE RECORDS SUMMARY | 2024-11-19 11:27 | XMS_ITS | Encounter Summary ---
Author Organization [facility] Address [address] [place] [address] Care Team Providers Care Dry Can Tender Name Role Phone Nohemy Guajardo MD Unavailable Nohemy Guajardo MD Primary Care Provider [phone] Reason for Referral * Consultation (Routine) - Authorized Specialty Diagnoses / Procedures Referred By David chin Referred To Contact Pain Medicine Diagnoses Lumbar spondylosis 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 claudication Procedures [facility] 60 MINUTES Nohemy Guajardo MD 112 [facility] 110 [place] [address] Phone: tel: fax: Danitza Murray MD [address] [place] [address] Phone: tel: fax: Referral ID Status Reason Start Date Expiration Date Visits Requested Visits Authorized [id number] Authorized Specialty Services Required 11/12/2024 05/11/2025 1 1 Encounter Details Date Type Department Care Team ([facility] Contact Info) Description 11/12/2024 Telephone [facility] [address] [facility] 110 [place] [address] Nohemy Guajardo MD 112 [facility] 110 [place] [address] Social History Tobacco Use Types Packs/Day Years [...] encounter Miscellaneous Notes * Telephone Encounter - Madiha Negrete MA - 11/12/2024 11:16 AM EDT Referral faxed to dr dill * Telephone Encounter - Elke Menezes - 11/12/2024 10:52 AM EDT Patient is reqesting a referral to pain management in [facility] the phone number is [phone] Dr. Rider documented in this encounter Plan of Treatment Upcoming Encounters Date Type Department Care Team (Late st Contact Info) Description 04/02/2025 1:00 PM EST Office Visit [facility] [address] [facility] 110 [place] [address] Nohemy Guajardo MD 112 [facility] 110 [place] [address] Scheduled Referrals Name Type Priority Associated Diagnoses Orde r Schedule Ambulatory referral to Pain Medicine Outpatient Referral Routine Lumbar spondylosis 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 claudication Expected: 11/12/2024 (Approximate), Expires: 05/14/2025 documented as of this encounter Visit Diagnoses Diagnosis Lumbar spondylosis Lumbosacral spondylosis without myelopathy 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 claudication documented in this encounter Additional Health Concerns Assessment Noted Time PHQ-9 Depression Total Score: 4 12/26/19 24 10:00 AM EDT documented as of this encounter Care Teams Dry Can Tender Relationship Specialty Start Date End Date Nohemy Guajardo MD 112 [facility] 110 [place] [address] PCP - ACO Reach 10/07/22 Nohemy Guajardo MD [address] [address] PCP - General Family Medicine 10/28/22 documented as of this encounter
--- OUTSIDE RECORDS SUMMARY | 2024-11-19 11:27 | XMS_ITS | Encounter Summary ---
Author Organization [facility] Address [address] [place] [address] Care Team Providers Care Patron Attendant Name Role Phone Nohemy Guajardo MD Unavailable Nohemy Guajardo MD Primary Care Provider [phone] Reason for Visit * Reason Onset Date Comments Med Refill 11/09/2024 Encounter Details Date Type Department Care Team (Late st Contact Info) Description 11/09/2024 Refill [facility] 112 [facility] 110 [place] [phone] Nohemy Guajardo MD 112 [facility] 110 [place], [place] [id number] Other insomnia Social History Tobacco Use Types [...] * Telephone Encounter - LUMA Garcia - 11/09/2024 9:39 AM EDT I believe I already did so, Did they not receive it? * Telephone Encounter - VENANCIO SMALL - 11/09/2024 9:27 AM EDT Send to [facility] in [place] * Telephone Encounter - LUMA Garcia - 11/09/2024 9:07 AM EDT OARRS reviewed, Rx sent into patient's pharmacy. * Telephone Encounter - VENANCIO SMALL - 11/09/2024 8:40 AM EDT OV 10/11/24 RF 10/11/24 documented in this encounter Plan of Treatment Upcoming Encounters Date Type Department Care Team (Late st Contact Info) Description 04/02/2025 1:00 PM EST Office Visit [facility] [address] [address] Nohemy Guajardo MD [address] [address] documented as of this encounter Visit Diagnoses Diagnosis Other insomnia documented in this encounter Additional Health Concerns Assessment Noted Time PHQ-9 Depression Total Score: 4 12/26/19 24 10:00 AM EDT documented as of this encounter Care Teams Patron Attendant Relationship Specialty Start Date End Date Nohemy Guajardo MD 112 [address] [facility] 110 [place] [address] PCP - ACO Reach 10/07/22 Nohemy Guajardo MD [address] [address] PCP - General Family Medicine 10/28/22 documented as of this encounter
--- OUTSIDE RECORDS SUMMARY | 2024-11-19 11:27 | XMS_ITS | Encounter Summary ---
Author Organization [facility] Address [address] [place] [address] Care Team Providers Care Urgent Care Name Role Phone Nohemy Guajardo MD Unavailable Nohemy Guajardo MD Primary Care Provider [phone] Encounter Details Date Type Department Care Team ([facility] Contact Info) Description 05/17/2023 Abstract [facility] 112 [facility] 110 [place] [address] Nohemy Guajardo MD 112 [facility] 110 [place] [address] Social History Tobacco Use Types Packs/Day Years [...] Upcoming Encounters Date Type Department Care Team ([facility] Contact Info) Description 04/02/2025 1:00 PM EST Office Visit [facility] 112 [facility] 110 [place] [address] Nohemy Guajardo MD 112 [facility] [address] [place] [address] documented as of this encounter Visit Diagnoses Not on filedocumented in this encounter Additional Health Concerns Assessment Noted Time PHQ-9 Depression Total Score: 5 12/28/19 23 8:00 AM EDT documented as of this encounter Care Teams Urgent Care Relationship Specialty Start Date End Date Nohemy Guajardo MD 112 [facility] 110 [place] [address] PCP - ACO Reach 10/07/22 Nohemy Guajardo MD 112 [facility] 110 [place] [address] PCP - General Family Medicine 10/28/22 documented as of this encounter
--- OUTSIDE RECORDS SUMMARY | 2024-11-19 11:27 | XMS_ITS | Encounter Summary ---
Author Organization [facility] Address [address] [place] [address] Care Team Providers Care Metaphysician Name Role Phone Nohemy Guajardo MD Unavailable Nohemy Guajardo MD Primary Care Provider [phone] Encounter Details Date Type Department Care Team (Late Contact Info) Description 05/17/2023 Orders Only [facility] [address] [facility] 110 [place] [address] A, Unknown Practice [address] [place], [place] [phone] Social History Tobacco Use Types Packs/Day Years [...] Office Visit [facility] [address] [facility] 110 [place] [address] Nohemy Guajardo MD [address] [facility] 110 [place] [address] documented as of this encounter Procedures Procedure Name Priority Date/Time Associated Diagnosis Comments CT SPINE CERVICAL W/O CONTRAST Routine 05/15/2023 9:15 AM EST ELECTROCARDIOGRAM REPORT Routine 023 8:[address] HEAD/BRAIN W & WO CONTRAST Routine 05/15/2023 8:20 AM EST documented in this encounter Results * CT SPINE CERVICAL W/O CONTRAST (05/15/2023 9:15 AM EST) Anatomical Region Laterality Modality Radiographic Alice ging us Unknown Practice A IMG XR PROCEDURES Final Resul t * Electrocardiogram Report (05/15/2023 8:21 AM EST) us Unknown Practice A IN CLINIC/BEDSIDE ORDERABLES Final Result * CT HEAD/BRAIN W & WO CONTRAST (05/15/2023 8:20 AM EST) Anatomical Region Laterality Modality Radiographic Alice ging us Unknown Practice A IMG XR PROCEDURES Final Resul t documented in this encounter Visit Diagnoses Not on filedocumented in this encounter Additional Health Concerns Assessment Noted Time PHQ-9 Depression Total Score: 5 12/28/19 23 8:00 AM EDT documented as of this encounter Care Teams Metaphysician Relationship Specialty Start Date End Date Nohemy Guajardo MD [address] [facility] 110 [place] [address] PCP - ACO Reach 10/07/22 Nohemy Guajardo MD [address] [facility] [address] [place] [address] PCP - General Family Medicine 10/28/22 documented as of this encounter
--- OUTSIDE RECORDS SUMMARY | 2024-11-19 11:27 | XMS_ITS | Encounter Summary ---
Author Organization [facility] Address [id number] [address] [place] [address] Care Team Providers Care Finish Repairer Name Role Phone Nohemy Guajardo MD Primary Care Provider Encounter Details Date Type Department Care Team (Late st Contact Info) Description 03/03/2016 Refill [facility] [address] [place] [phone] Kristina Elizalde Social History Tobacco Use Types Packs/Day Years Used Date Smoking Tobacco: Never Assessed Comments Unknown Sex and Gender Information Value Date Recorded Sex Assigned at Not on file Legal Sex Female 11:53 AM EDT Gender Identity Not on file Sexual Orientation Not on file documented as of this encounter Plan of Treatment Not on file documented as of this encounter Visit Diagnoses Not on filedocumented in this encounter Care Teams Finish Repairer Relationship Specialty Start Date [place] [address] PCP - General Family Medicine 11/15/19 documented as of this encounter
--- OUTSIDE RECORDS SUMMARY | 2024-11-19 11:27 | XMS_ITS | Encounter Summary ---
Author Organization [facility] Address [address] [place] [address] Care Team Providers Care Shaper Hand Name Role Phone Nohemy Guajardo MD Unavailable Nohemy Guajardo MD Primary Care Provider [phone] Encounter Details Date Type Department Care Team ([facility] Contact Info) Description 05/17/2023 Abstract [facility] 112 [facility] 110 [place] [address] Nohemy Guajardo MD 112 [facility] 110 [place] [address] Social History Tobacco Use Types Packs/Day Years [...] Upcoming Encounters Date Type Department Care Team ([facility] Contact Info) Description 04/02/2025 1:00 PM EST Office Visit [facility] 112 [facility] 110 [place] [address] Nohemy Guajardo MD 112 [facility] [address] [place] [address] documented as of this encounter Visit Diagnoses Not on filedocumented in this encounter Additional Health Concerns Assessment Noted Time PHQ-9 Depression Total Score: 5 12/28/19 23 8:00 AM EDT documented as of this encounter Care Teams Shaper Hand Relationship Specialty Start Date End Date Nohemy Guajardo MD 112 [facility] 110 [place] [address] PCP - ACO Reach 10/07/22 Nohemy Guajardo MD 112 [facility] 110 [place] [address] PCP - General Family Medicine 10/28/22 documented as of this encounter
--- OUTSIDE RECORDS SUMMARY | 2024-11-19 11:27 | XMS_ITS | Encounter Summary ---
Author Organization [facility] Address [address] [place] [address] Care Team Providers Care Woodwind Reeds Cutter Name Role Phone Nohemy Guajardo MD Unavailable Nohemy Guajardo MD Primary Care Provider [phone] Encounter Details Date Type Department Care Team ([facility] Contact Info) Description 01/05/2023 Abstract [facility] 112 [facility] 110 [place] [address] Nohemy Guajardo MD 112 [facility] 110 [place] [address] Social History Tobacco Use Types Packs/Day Years [...] Upcoming Encounters Date Type Department Care Team ([facility] Contact Info) Description 04/02/2025 1:00 PM EST Office Visit [facility] 112 [facility] 110 [place] [address] Nohemy Guajardo MD 112 [facility] [address] [place] [address] documented as of this encounter Visit Diagnoses Not on filedocumented in this encounter Additional Health Concerns Assessment Noted Time PHQ-9 Depression Total Score: 5 12/28/19 23 8:00 AM EDT documented as of this encounter Care Teams Woodwind Reeds Cutter Relationship Specialty Start Date End Date Nohemy Guajardo MD 112 [facility] 110 [place] [address] PCP - ACO Reach 10/07/22 Nohemy Guajardo MD 112 [facility] 110 [place] [address] PCP - General Family Medicine 10/28/22 documented as of this encounter
--- OUTSIDE RECORDS SUMMARY | 2024-11-19 11:27 | XMS_ITS | Encounter Summary ---
Author Organization [facility] Address [address] [place] [address] Care Team Providers Care Plate Sensitizer Name Role Phone Nohemy Guajardo MD Unavailable Nohemy Guajardo MD Primary Care Provider [phone] Encounter Details Date Type Department Care Team ([facility] Contact Info) Description 02/01/2023 Abstract [facility] 112 [facility] [address] [place] [address] Nohemy Guajardo MD 112 [facility] 110 [place] [address] Social History Tobacco Use Types Packs/Day Years [...] Upcoming Encounters Date Type Department Care Team ([facility] Contact Info) Description 04/02/2025 1:00 PM EST Office Visit [facility] 112 [facility] [address] [place] [address] Nohemy Guajardo MD 112 [facility] [address] [place] [address] documented as of this encounter Visit Diagnoses Not on filedocumented in this encounter Additional Health Concerns Assessment Noted Time PHQ-9 Depression Total Score: 5 12/28/19 23 8:00 AM EDT documented as of this encounter Care Teams Plate Sensitizer Relationship Specialty Start Date End Date Nohemy Guajardo MD 112 [facility] 110 [place] [address] PCP - ACO Reach 10/07/22 Nohemy Guajardo MD 112 [facility] 110 [place] [address] PCP - General Family Medicine 10/28/22 documented as of this encounter
--- OUTSIDE RECORDS SUMMARY | 2024-11-19 11:27 | XMS_ITS | Encounter Summary ---
Author Organization [facility] Address [address] [place] [address] Care Team Providers Care Asic Design Engineer Name Role Phone Nohemy Prado MD Unavailable Nohemy Prado MD Primary Care Provider [phone] Encounter Details Date Type Department Care Team (Late Contact Info) Description 08/13/2023 Clinisync Result Encounter [facility] External Department Unsolicited Nohemy Prado MD 112 [facility] 110 [place], [place] [id number] Social History Tobacco Use Types Packs/Day Years [...] Upcoming Encounters Date Type Department Care Team ([facility] Contact Info) Description 04/02/2025 1:00 PM EST Office Visit [facility] 112 [facility] 110 [place] [address] Nohemy Prado MD 112 [facility] 110 [place], [place] [address] documented as of this encounter Procedures Procedure Name Priority Date/Time Associated Diagnosis Comments XR LUMBAR SPINE 2 OR 3V 08/13/2023 6:43 AM EDT documented in this encounter Results * XR LUMBAR SPINE 2 OR 3V (08/13/2023 6:43 AM EDT) Anatomical Region Laterality Modality Radiographic Alice ging 08/13/2023 6:43 AM EDT Narrative 08/13/2023 6:46 AM EDT [address] [address] XRay Report Signed Patient: NUVIA ABRAHAM MR#: [id number] : 1945 Acct:[id number] Age/Sex: 78 / F ADM Date: 08/12/23 Loc: RAD Attending Dr: NOHEMY PRADO Ordering Physician: NOHEMY PRADO Date of Service: 08/12/23 Procedure(s): XR lumbar spine 2-3V Accession Number(s): [id number] cc: NOHEMY PRADO [address] [address] Patient Name: NUVIA ABRAHAM MRN: [id number] date: 1945 Sex: F Assigned Patient Location: [facility] Current Patient Location: Accession/Order Number: [id number] Exam Date: 08/12/2023 14:38 Report Date: 08/13/2023 06:43 At the request of: NOHEMY PRADO Procedure: XR lumbar spine 2-3V EXAMINATION: XR lumbar spine 2-3V HISTORY: Lumbar Spondylosis M47.816, Acute Low Back Pain radiating into hips and legs COMPARISON: CT abdomen pelvis 11/10/2020 FINDINGS: BONES: Mild grade 1 anterolisthesis of L4 on 5. No fracture or bone lesion. Moderate degenerative facet arthropathy L3-L4 through L5-S1. DISC SPACES: L3-L4 mild narrowing. L4-L5, L5-S1 moderate-marked narrowing. PARASPINOUS: Marked atherosclerotic disease of aorta and branches. OTHER: Negative. XR/XR lumbar spine 2-3V IMPRESSION: 1. Multilevel moderate- marked degenerative changes of lower lumbar spine; slightly progressed compared to prior study. Electronically authenticated by: CAMACHO DUMONT Date: 08/13/2023 06:43 Dictated By: Camacho Dumont M.D. Signed By: 08/13/2346 DD/ 2 TD/TT: Excavating Supervisor: Procedure Note Radiology, Radiologist, MD - 08/17/2023 [place] [address] XRay Report Signed Patient: NUVIA ABRAHAM AMR#: [id number] : 1945cct:[id number] Age/Sex: 78 / FADM Date: 08/12/23 Loc: [facility] Attending Dr: NOHEMY PRADO Ordering Physician: NOHEMY PRADO Date of Service: 08/12/23 Procedure(s): XR lumbar spine 2-3V Accession Number(s): [id number] cc: NOHEMY PRADO [place] [id number] Patient Name: NUVIA ABRAHAM MRN: [facility]:[id number] date: 1945 Sex: F Assigned Patient Location: [facility] Current Patient Location: Accession/Order Number: [id number] Exam Date: 08/12/2023 14:38 Report Date: 08/13/2023 06:43 At the request of: NOHEMY PRADO Procedure: XR lumbar spine 2-3V EXAMINATION: XR lumbar spine 2-3V HISTORY: Lumbar Spondylosis M47.816, Acute Low Back Pain radiating intohips and legs COMPARISON: CT abdomen pelvis 11/10/2020 FINDINGS: BONES: Mild grade 1 anterolisthesis of L4 on 5. No fracture or bonelesion. Moderate degenerative facet arthropathy L3-L4 through L5-S1. DISC SPACES: L3-L4 mild narrowing. L4-L5, L5-S1 moderate-marked narrowing. PARASPINOUS: Marked atherosclerotic disease of aorta and branches. OTHER: Negative. XR/XR lumbar spine 2-3V IMPRESSION: 1. Multilevel moderate- marked degenerative changes of lower lumbar spine; slightly progressed compared to prior study. Electronically authenticated by: CAMACHO DUMONT Date: 08/13/2023 06:43 Dictated By: Camacho Dumont M.D. Signed By:08/13/2346 DD/ TD/TT: Excavating Supervisor: us Nohemy Prado MD IMG XR PROCEDURES Final Result documented in this encounter Visit Diagnoses Not on filedocumented in this encounter Additional Health Concerns Assessment Noted Time PHQ-9 Depression Total Score: 5 12/28/19 23 8:00 AM EDT documented as of this encounter Care Teams Asic Design Engineer Relationship Specialty Start Date End Date Nohemy Prado MD 112 [facility] 110 [place] [address] PCP - ACO Reach 10/07/22 Nohemy Prado MD 112 [facility] 110 [place] [address] PCP - General Family Medicine 10/28/22 documented as of this encounter
--- OUTSIDE RECORDS SUMMARY | 2024-11-19 11:27 | XMS_ITS | Encounter Summary ---
Author Organization [facility] Address [address] [place] [address] Care Team Providers Care Infrastructure Design Engineer Name Role Phone Nohemy Guajardo MD Unavailable Nohemy Guajardo MD Primary Care Provider [phone] Encounter Details Date Type Department Care Team (Late Contact Info) Description 01/06/2023 Orders Only [facility] 112 [facility] 110 [place] [address] A, Unknown Practice [address] [place], [place] [phone] Social History Tobacco Use Types Packs/Day Years [...] Office Visit [facility] 112 [facility] 110 [place] [address] Nohemy Guajardo MD [address] [address] documented as of this encounter Procedures Procedure Name Priority Date/Time Associated Diagnosis Comments CT LUNG SCREENING LOW DOSE Routine 01/05/2023 8:43 AM EDT documented in this encounter Results * CT lung screening low dose (01/05/2023 8:43 AM EDT) Anatomical Region Laterality Modality Lung Computed Tomogra phy us Unknown Practice A IMG CT PROCEDURES Final Resul t documented in this encounter Visit Diagnoses Not on filedocumented in this encounter Additional Health Concerns Assessment Noted Time PHQ-9 Depression Total Score: 5 12/28/19 8:00 AM EDT documented as of this encounter Care Teams Infrastructure Design Engineer Relationship Specialty Start Date End Date Noheym Guajardo MD 112 [address] [place] [address] PCP - ACO Reach 10/07/22 Nohemy Guajardo MD [address] [address] PCP - General Family Medicine 10/28/22 documented as of this encounter
--- OUTSIDE RECORDS SUMMARY | 2024-11-19 11:27 | XMS_ITS | Encounter Summary ---
Author Organization [facility] Address [address] [place] [address] Care Team Providers Care Marketing Writer Name Role Phone Nohemy Guajardo MD Unavailable Nohemy Guajardo MD Primary Care Provider [phone] Encounter Details Date Type Department Care Team ([facility] Contact Info) Description 08/30/2023 Abstract [facility] 112 [facility] 110 [place] [address] Nohemy Guajardo MD 112 [facility] 110 [place] [address] Social History Tobacco Use Types Packs/Day Years [...] Upcoming Encounters Date Type Department Care Team ([facility] Contact Info) Description 04/02/2025 1:00 PM EST Office Visit [facility] 112 [facility] 110 [place] [address] Nohemy Guajardo MD 112 [facility] [address] [place] [address] documented as of this encounter Visit Diagnoses Not on filedocumented in this encounter Additional Health Concerns Assessment Noted Time PHQ-9 Depression Total Score: 5 12/28/19 23 8:00 AM EDT documented as of this encounter Care Teams Marketing Writer Relationship Specialty Start Date End Date Nohemy Guajardo MD 112 [facility] 110 [place] [address] PCP - ACO Reach 10/07/22 Nohemy Guajardo MD 112 [facility] 110 [place] [address] PCP - General Family Medicine 10/28/22 documented as of this encounter
--- OUTSIDE RECORDS SUMMARY | 2024-11-19 11:27 | XMS_ITS | Encounter Summary ---
Author Organization [facility] Address [address] [place] [address] Care Team Providers Care Tire Shop Mechanic Name Role Phone Nohemy Guajardo MD Unavailable Nohemy Guajardo MD Primary Care Provider [phone] Encounter Details Date Type Department Care Team ([facility] Contact Info) Description 12/28/2023 Abstract [facility] 112 [facility] 110 [place] [address] Nohemy Guajardo MD 112 [facility] 110 [place] [address] Social History Tobacco Use Types Packs/Day Years [...] Upcoming Encounters Date Type Department Care Team ([facility] Contact Info) Description 04/02/2025 1:00 PM EST Office Visit [facility] 112 [facility] 110 [place] [address] Nohemy Guajardo MD 112 [facility] [address] [place] [address] documented as of this encounter Visit Diagnoses Not on filedocumented in this encounter Additional Health Concerns Assessment Noted Time PHQ-9 Depression Total Score: 4 12/26/19 24 10:00 AM EDT documented as of this encounter Care Teams Tire Shop Mechanic Relationship Specialty Start Date End Date Nohemy Guajardo MD 112 [facility] 110 [place] [address] PCP - ACO Reach 10/07/22 Nohemy Guajardo MD 112 [facility] 110 [place] [address] PCP - General Family Medicine 10/28/22 documented as of this encounter
--- OUTSIDE RECORDS SUMMARY | 2024-11-19 11:27 | XMS_ITS | Encounter Summary ---
Author Organization [facility] Address [address] [place] [address] Care Team Providers Care Sawmill Relief Worker Name Role Phone Nohemy Guajardo MD Unavailable Nohemy Guajardo MD Primary Care Provider [phone] Reason for Visit * Reason Onset Date Comments Med Refill 11/09/2024 Encounter Details Date Type Department Care Team (Late Contact Info) Description 11/09/2024 Refill [facility] 112 [facility] 110 [place] [phone] Nohemy Guajardo MD 112 [facility] 110 [place] [address] Type 2 diabetes mellitus with diabetic polyneuropathy, with long-term current use of insulin ([facility]) Social History Tobacco Use Types Packs/Day Years [...] EST Office Visit [facility] 112 [facility] 110 [place] [address] Nohemy Guajardo MD 112 [facility] [address] [place] [address] documented as of this encounter Visit Diagnoses Diagnosis Type 2 diabetes mellitus with diabetic polyneuropathy, with long-term current use of insulin (HCC) documented in this encounter Additional Health Concerns Assessment Noted Time PHQ-9 Depression Total Score: 4 12/26/19 24 10:00 AM EDT documented as of this encounter Care Teams Sawmill Relief Worker Relationship Specialty Start Date End Date Nohemy Guajardo MD 112 [facility] [address] [place] [address] PCP - ACO Reach 10/07/22 Nohemy Guajardo MD 112 [facility] [address] [place] [address] PCP - General Family Medicine 10/28/22 documented as of this encounter
--- OUTSIDE RECORDS SUMMARY | 2024-11-19 11:27 | XMS_ITS | Encounter Summary ---
Author Organization [facility] Address [address] [place] [address] Care Team Providers Care Roofing Applicator Name Role Phone Nohemy Guajardo MD Unavailable Nohemy Guajardo MD Primary Care Provider [phone] Reason for Visit * Reason Comments Med Refill Encounter Details Date Type Department Care Team (Late st Contact Info) Description 11/18/2024 Refill [facility] 112 [facility] 110 [place] [phone] Nohemy Guajardo MD 112 [facility] 110 [place], [place] [id number] Essential hypertension Social History Tobacco Use Types Packs/Day Years [...] * Telephone Encounter - LUMA Garcia - 11/19/2024 8:33 AM EDT Amlodipine sent. documented in this encounter Plan of Treatment Upcoming Encounters Date Type Department Care Team (Late st Contact Info) Description 04/02/2025 1:00 PM EST Office Visit [facility] 112 [facility] [address] [place] [address] Nohemy Guajardo MD 112 [facility] [address] [place] [address] documented as of this encounter Visit Diagnoses Diagnosis Essential hypertension Unspecified essential hypertension documented in this encounter Additional Health Concerns Assessment Noted Time PHQ-9 Depression Total Score: 4 12/26/19 24 10:00 AM EDT documented as of this encounter Care Teams Roofing Applicator Relationship Specialty Start Date End Date Nohemy Guajardo MD 112 [facility] [address] [place] [address] PCP - ACO Reach 10/07/22 Nohemy Guajardo MD 112 [facility] [address] [place] [address] PCP - General Family Medicine 10/28/22 documented as of this encounter
--- NOTE | 2024-11-19 12:35 | PM.CN ---
Consult Note: HPI Data of Consult Patient: new to practice Consult date: 11/19/24 Requesting Physician: Danitza Murray MD Primary Care Provider: WILY PRADO Consult Narrative Reason for consult: low back pain Narrative: 79yof who presents for evaluation. longstanding history of low back pain, worsened with standing and ambulation. imaging reviewed, significant for moderate to severe facet arthropathy in lower lumbar spine. has engaged in >6 weeks of provider directed home exercise course, without benefit. uses gabapentin, mobic. denies adverse med side effects. cc:: CC: Danitza Murray MD Review of Systems ROS Status of ROS 10 or more systems reviewed and unremarkable except as noted in history and below [facility] Medical History PVD (peripheral vascular disease) �I73.9 - Peripheral vascular disease, unspecified (ICD-10) Type 2 diabetes mellitus with hyperglycemia �E11.65 - Type 2 diabetes mellitus with hyperglycemia (ICD-10) Lumbar degenerative disc disease �M51.36 - Other intervertebral disc degeneration, lumbar region (ICD-10) Hypertension �I10 - Essential (primary) hypertension (ICD-10) Medication side effect �T88.7XXA - Unspecified adverse effect of drug or medicament, initial encounter (ICD-10) Chronic back pain �M54.9 - Dorsalgia, unspecified (ICD-10) �G89.29 - Other chronic pain (ICD-10) Diabetes �E11.9 - Type 2 diabetes mellitus without complications (ICD-10) Choking �T17.308A - Unspecified foreign body in larynx causing other injury, initial encounter (ICD-10) GERD (gastroesophageal reflux disease) �K21.9 - Gastro-esophageal reflux disease without esophagitis (ICD-10) Social History Smoking status: Current every day smoker Meds Home Medications and Allergies Home Medications �Medication �Instructions �Recorded �Confirmed �Type B-Complex 05/15/23 History CoQ-10 30 mg PO DAILY 05/15/23 05/15/23 History Fish Oil 1,000 mg PO 05/15/23 History Lantus Solostar U-100 Insulin 05/15/23 History Miralax 17 g PO .qd PRN constipation 05/15/23 05/15/23 History [place] Oil 05/15/23 History Ventolin HFA 05/15/23 History Zyrtec 10 mg PO .qd PRN allergy symptoms 05/15/23 05/15/23 History alpha lipoic acid 200 mg capsule 200 mg PO DAILY 05/15/23 05/15/23 History aspirin 81 mg capsule 81 mg PO DAILY 05/15/23 05/15/23 History atorvastatin 20 mg tablet 20 mg PO DAILY 05/15/23 05/15/23 History calcium citrate-vitamin D3 05/15/23 History clopidogrel 75 mg tablet 75 mg PO DAILY 05/15/23 05/15/23 History famotidine 20 mg PO 05/15/23 History fenofibrate nanocrystallized 145 145 mg PO .qd 05/15/23 05/15/23 History mg tablet ferrous sulfate 325 mg PO 05/15/23 History gabapentin 600 mg tablet 600 mg PO Q8H 05/15/23 05/15/23 History hydrochlorothiazide 25 mg tablet 25 mg PO DAILY 05/15/23 05/15/23 History ipratropium 0.5 mg-albuterol 3 mg 3 ml inhalation Q6H 05/15/23 05/15/23 History (2.5 mg base)/3 mL nebulization soln levothyroxine 88 mcg tablet 88 mcg PO DAILY 05/15/23 05/15/23 History lisinopril 40 mg tablet 40 mg PO DAILY 05/15/23 05/15/23 History magnesium 30 mg PO 05/15/23 History melatonin 5 mg capsule 5 mg PO 05/15/23 History meloxicam 15 mg tablet 15 mg PO DAILY 05/15/23 05/15/23 History metoprolol tartrate 25 mg tablet 25 mg PO TID 05/15/23 05/15/23 History multivitamin (Daily Multi-Vitamin 1 tab PO DAILY 05/15/23 05/15/23 History tablet) niacin 500 mg PO .qd 05/15/23 05/15/23 History omeprazole 20 mg capsule,delayed 20 mg PO .qd 05/15/23 05/15/23 History release oxcarbazepine 300 mg tablet 300 mg PO BID 05/15/23 05/15/23 History sitagliptin phosphate 50 2 tab PO DAILY 05/15/23 05/15/23 History mg-metformin 500 mg tablet (Janumet) sodium chloride 1,000 mg PO 05/15/23 History tiotropium 2.5 mcg-olodaterol 2.5 2 puff inhalation Q24H 05/15/23 05/15/23 History mcg/actuation mist for inhalation (Stiolto Respimat) torsemide 10 mg tablet 10 mg PO DAILY 05/15/23 05/15/23 History tramadol 50 mg tablet 100 mg PO Q6H PRN pain 05/15/23 05/15/23 History vitamin E 268 mg (400 unit) capsule 268 mg PO DAILY 05/15/23 05/15/23 History zinc gluconate 50 mg PO 05/15/23 History Allergies Allergy/AdvReac Type Severity Reaction Status Date / Time petrolatum,white (From AdvReac Severe Blister Verified 01/13/23 11:08 Petroleum Jelly) tagemet AdvReac Severe Diarrhea Uncoded 01/13/23 11:08 Exam Narrative Exam Narrative: Psych-alert and oriented x 3. Attentive and appropriate, constitutionally normal, displays normal mood and affect per situation.� There are no obvious deficits in memory, reasoning, or intellect.� Skin-no obvious rashes, bruising, erythema noted to the patient's area of pain. Extremities- extremities are warm with minimal edema and palpable pulses. Lumbar-no significant tenderness to palpation noted in the lumbar spine and paraspinal musculature.� Pain is elicited with extension, and lateral rotation of the lumbar spine. Range of motion is slightly diminished with these motions due to pain. Facet loading maneuvers are positive bilaterally and do appear to be concordant with the patient's normal complaints of pain.� Coordination remains intact.� Gait remains non-antalgic. Assessment and Plan Assessment and Plan (1) Lumbar spondylosis: Plan 79yof who presents for evaluation. failed conservative measures, as noted. imaging reviewed, as noted. given symptoms and imaging, prudent to attempt bilateral l4-5, l5-s1 medial branch block under fluoroscopic guidance. she is in agreement. meds reviewed, no changes. follow up after procedure.
== END 2024-11-19 11:25 | disposition home or self-care (01) ==
LOC: PM 11:25
PROVIDERS: PCP Family Medicine; Visit Provider Anesthesiology
DX: M47.816 Spondylosis without myelopathy or radiculopathy, lumbar region (principal)
CPT/HCPCS: G0463

== ENCOUNTER 2024-12-24 09:02 | Day surgery (SDC) | payer MEDICARE, SELFPAY ==
[2024-12-24 09:23] VITALS: BP 160/60; PULSE 65; TEMP 36.3; O2SAT 96
[2024-12-24 09:46] VITALS: BP 179/74; PULSE 67; O2SAT 93
[2024-12-24 09:47] VITALS: BP 170/74; PULSE 67; O2SAT 92
[2024-12-24] MEDS: LIDOCAINE HCL 2% 400 MG/20 ML MDV INJ (09:50)
[2024-12-24] MEDS: BUPIVACAINE HCL 0.25% PF 25 MG/10 ML VIAL 8 ML INJ (09:50)
--- NOTE | 2024-12-24 09:54 | W.PM.PROCNOT ---
Date of procedure: 12/24/24 Pre-op diagnosis: Pain due to lumbar spondylosis without myelopathy Post-op diagnosis: same as pre-op Procedure: Procedure: Bilateral L4-5, l5-S1 medial branch block Medications: Bupivacaine 0.25% 6cc The patient was seen and examined in the preoperative holding area.? An informed consent was obtained and placed on the chart.? The patient was brought to the medical procedure unit and placed in the prone position.? A timeout was completed verifying correct patient, procedure site, positioning, plan, and special equipment.? Using aseptic technique, the needle was placed at left L4. Under direct fluoroscopic visualization a Quincke-tipped spinal needle was advanced to the junction of the superior articulating process with the transverse process at the designated medial branch segment.? Preceded by negative aspiration, the above-mentioned injectate was placed in 1 mL aliquots.? The procedure was repeated at left L5, S1.? The needle was removed and insertion site was covered. The same procedure, at the same levels, was completed on the right side. The patient was taken to the postprocedural recovery area and monitored for an appropriate length of time before found suitable for discharge in the company of a responsible adult. Anesthesia: Local Surgeon: Danitza Murray Pathology: none sent Condition: stable Disposition: no change
== END 2024-12-24 09:57 | disposition home or self-care (01) ==
LOC: SURGOUT 09:03
PROVIDERS: PCP Family Medicine; Visit Provider Anesthesiology
DX: M47.816 Spondylosis without myelopathy or radiculopathy, lumbar region (principal); M54.50 Low back pain, unspecified; E11.8 Type 2 diabetes mellitus with unspecified complications; Z79.84 Long term (current) use of oral hypoglycemic drugs
CPT/HCPCS: 36415; 64493; 64494; 82948; J0665

== ENCOUNTER 2024-12-27 12:22 | Outpatient (OUT) | payer MEDICARE, SELFPAY ==
--- OUTSIDE RECORDS SUMMARY | 2024-12-27 12:24 | XMS_ITS | Clinical Summary ---
Author Organization [facility] Address [id number] [address] [place] [address] Care Team Providers Care Golf Sales Associate Name Role Phone Nohemy Guajardo MD Primary Care Provider [phone] Family History Medical History Relation Name Comments Breast cancer Mother Breast cancer Other MATERNAL GREAT GRANDMOTH Breast cancer Paternal Grandmother Breast cancer Sister Relation Name Status Comments Mother Other MATERNAL GREAT GRANDMOTH Paternal Grandmother Sister Social History Tobacco Use Types Packs/Day Years Used Date Smoking Tobacco: Never Assessed Childcare Answer Date Recorded Childcare Unknown 10/25/2018 Employment Answer Date Recorded Employment Unknown 10/25/2018 Purpose - Life Answer Date Recorded Purpose and direction in life Unknown Comments No Sex and Gender Information Value Date Recorded Sex Assigned at Not on file Legal Sex Female 11:53 AM EDT Gender Identity Not on file Sexual Orientation Not on file Last Filed Vital Signs Vital Sign Reading Time Taken Comments Blood Pressure - - Pulse - - Temperature - - Respiratory Rate - - Oxygen Saturation - - Inhaled Oxygen Concentration - - Weight 86.2 kg (190 lb) 08/09/2018 10:13 AM EDT Height 154.9 cm (5' 1 ) 08/09/2018 10:13 AM EDT Body Mass Index 35.9 08/09/2018 10:13 AM EDT Plan of Treatment Health Maintenance Due Date Last Done Comments Depression Screening 1957 Tobacco Screening 1957 DTaP,Tdap and Td Vaccines (1 - Tdap) 07/26/1966 Fall Risk Screening 07/26/2012 Zoster (Shingles) Vaccine (2 of 2) 01/02/20212020 COVID-19 Vaccine (4 2023-2 5 season) 2024 04/21/2021, 07/14/2020, 06/22/2020 Influenza Vaccine 01/14/2025 04/21/2021, 06/13/2009 Medical Devices Not on file Insurance [facility] Care Teams Golf Sales Associate Relationship Specialty Start Date End Date Nohemy Guajardo MD [facility] [place] [address] PCP - General Family Medicine 11/15/19
--- OUTSIDE RECORDS SUMMARY | 2024-12-27 12:24 | XMS_ITS | Encounter Summary ---
Author Organization [facility] Address [address] [place] [address] Care Team Providers Care Manager Chinese Name Role Phone Nohemy Guajardo MD Unavailable Nohemy Guajardo MD Primary Care Provider [phone] Reason for Visit * Reason Onset Date Comments Med Refill 12/14/2024 Encounter Details Date Type Department Care Team (Late st Contact Info) Description 12/14/2024 Refill [facility] [place] [facility] [address] [facility] 110 [place] [phone] Latonya Marie PA [address] [facility] 110 [place] [address] Other insomnia Social History Tobacco Use Types [...] encounter Miscellaneous Notes * Telephone Encounter - LMUA Garcia - 12/14/2024 12:17 PM EDT Resent, though it does show that [facility] filled this, hopefully she will not have an issue getting this at [facility] and the other Rx will be cancelled. * Telephone Encounter - VENANCIO SMALL - 12/14/2024 10:03 AM EDT Needs to go to [facility] documented in this encounter Plan of Treatment Upcoming Encounters Date Type Department Care Team (Late st Contact Info) Description 04/02/2025 1:00 PM EST Office Visit [facility] [place] [facility] [address] [facility] [address] [place] [address] Nohemy Guajardo MD [address] [facility] [address] [place] [address] documented as of this encounter Visit Diagnoses Diagnosis Other insomnia documented in this encounter Additional Health Concerns Assessment Noted Time PHQ-9 Depression Total Score: 4 12/26/19 24 10:00 AM EDT documented as of this encounter Care Teams Manager Chinese Relationship Specialty Start Date End Date Nohemy Guajardo MD [address] [facility] [address] [place] [address] PCP - ACO Reach 10/07/22 Nohemy Guajardo MD [address] [facility] [address] [place] [address] PCP - General Family Medicine 10/28/22 documented as of this encounter
--- OUTSIDE RECORDS SUMMARY | 2024-12-27 12:24 | XMS_ITS | Encounter Summary ---
Author Organization [facility] Address [address] [place] [address] Care Team Providers Care Commercial Loan Assistant Name Role Phone Nohemy Guajardo MD Unavailable Nohemy Guajardo MD Primary Care Provider [phone] Encounter Details Date Type Department Care Team (Late Contact Info) Description 05/17/2023 Abstract [facility] [place] [facility] 112 [facility] 110 [place] [phone] Noehmy Guajardo MD 112 [facility] 110 [place] [address] Social History Tobacco Use Types Packs/Day Years [...] Upcoming Encounters Date Type Department Care Team ([facility] Contact Info) Description 04/02/2025 1:00 PM EST Office Visit [facility] [place] [facility] 112 [facility] 110 [place] [address] Nohemy Guajardo MD 112 [facility] 110 [place] [address] documented as of this encounter Visit Diagnoses Not on filedocumented in this encounter Additional Health Concerns Assessment Noted Time PHQ-9 Depression Total Score: 5 12/28/19 23 8:00 AM EDT documented as of this encounter Care Teams Commercial Loan Assistant Relationship Specialty Start Date End Date Nohemy Guajardo MD 112 [facility] 110 [place] [address] PCP - ACO Reach 10/07/22 Nohemy Guajardo MD 112 [facility] 110 [place] [address] PCP - General Family Medicine 10/28/22 documented as of this encounter
--- OUTSIDE RECORDS SUMMARY | 2024-12-27 12:24 | XMS_ITS | Encounter Summary ---
Author Organization [facility] Address [address] [place] [address] Care Team Providers Care Simulation Software Engineer Name Role Phone Nohemy Guajardo MD Unavailable Nohemy Guajardo MD Primary Care Provider [phone] Encounter Details Date Type Department Care Team (Late Contact Info) Description 05/17/2023 Abstract [facility] [place] [facility] 112 [facility] 110 [place] [address] Nohemy Guajardo MD 112 [facility] 110 [place] [address] Social History Tobacco Use Types Packs/Day Years [...] Upcoming Encounters Date Type Department Care Team ([facility] Contact Info) Description 04/02/2025 1:00 PM EST Office Visit [facility] [place] [facility] [address] [facility] 110 [place] [address] Nohemy Guajardo MD 112 [facility] 110 [place] [address] documented as of this encounter Visit Diagnoses Not on filedocumented in this encounter Additional Health Concerns Assessment Noted Time PHQ-9 Depression Total Score: 5 12/28/19 23 8:00 AM EDT documented as of this encounter Care Teams Simulation Software Engineer Relationship Specialty Start Date End Date Nohemy Guajardo MD 112 [facility] 110 [place] [address] PCP - ACO Reach 10/07/22 Nohemy Guajardo MD 112 [facility] 110 [place] [address] PCP - General Family Medicine 10/28/22 documented as of this encounter
--- OUTSIDE RECORDS SUMMARY | 2024-12-27 12:24 | XMS_ITS | Encounter Summary ---
Author Organization [facility] Address [address] [place] [address] Care Team Providers Care System Planning Engineer Name Role Phone Nohemy Guajardo MD Unavailable Nohemy Guajardo MD Primary Care Provider [phone] Encounter Details Date Type Department Care Team (Late Contact Info) Description 01/05/2023 Abstract [facility] [place] [facility] 112 [facility] 110 [place] [address] Nohemy Guajardo MD 112 [facility] 110 [place] [address] Social History Tobacco Use Types Packs/Day Years [...] Upcoming Encounters Date Type Department Care Team ([facility] Contact Info) Description 04/02/2025 1:00 PM EST Office Visit [facility] [place] [facility] 112 [facility] 110 [place] [address] Nohemy Guajardo MD 112 [facility] 110 [place] [address] documented as of this encounter Visit Diagnoses Not on filedocumented in this encounter Additional Health Concerns Assessment Noted Time PHQ-9 Depression Total Score: 5 12/28/19 23 8:00 AM EDT documented as of this encounter Care Teams System Planning Engineer Relationship Specialty Start Date End Date Nohemy Guajardo MD 112 [facility] 110 [place] [address] PCP - ACO Reach 10/07/22 Nohemy Guajardo MD 112 [facility] 110 [place] [address] PCP - General Family Medicine 10/28/22 documented as of this encounter
--- OUTSIDE RECORDS SUMMARY | 2024-12-27 12:24 | XMS_ITS | Encounter Summary ---
Author Organization [facility] Address [address] [place] [address] Care Team Providers Care Procedure Writer Name Role Phone Nohemy Guajardo MD Unavailable Nohemy Guajardo MD Primary Care Provider [phone] Encounter Details Date Type Department Care Team (Late Contact Info) Description 01/06/2023 Orders Only [facility] [place] [facility] [address] [place] [address] [place] [address] A, Unknown Practice [address] [place], [place] [phone] Social History Tobacco Use Types Packs/Day Years [...] Upcoming Encounters Date Type Department Care Team ([facility] Contact Info) Description 04/02/2025 1:00 PM EST Office Visit [facility] [place] [facility] [address] [place] [address] [place] [address] Nohemy Guajardo MD 112 [facility] 110 [place] [address] documented as of this encounter Procedures Procedure [...] documented as of this encounter Care Teams Procedure Writer Relationship Specialty Start Date End Date Nohemy Guajardo MD 112 [facility] 110 [place] [address] PCP - ACO Reach 10/07/22 Nohemy Guajardo MD 112 [facility] 110 [place] [address] PCP - General Family Medicine 10/28/22 documented as of this encounter
--- OUTSIDE RECORDS SUMMARY | 2024-12-27 12:24 | XMS_ITS | Encounter Summary ---
Author Organization [facility] Address [address] [place] [address] Care Team Providers Care Radiation Protection Engineer Name Role Phone Nohemy Guajardo MD Unavailable Nohemy Guajardo MD Primary Care Provider [phone] Encounter Details Date Type Department Care Team (Late Contact Info) Description 05/17/2023 Abstract [facility] [place] [facility] [address] [facility] 110 [place] [address] Nohemy Guajardo MD 112 [facility] 110 [place] [address] Social History Tobacco Use Types Packs/Day Years [...] Upcoming Encounters Date Type Department Care Team ([facility] Contact Info) Description 04/02/2025 1:00 PM EST Office Visit [facility] [place] [facility] [address] [facility] 110 [place] [address] Nohemy Guajardo MD 112 [facility] 110 [place] [address] documented as of this encounter Visit Diagnoses Not on filedocumented in this encounter Additional Health Concerns Assessment Noted Time PHQ-9 Depression Total Score: 5 12/28/19 23 8:00 AM EDT documented as of this encounter Care Teams Radiation Protection Engineer Relationship Specialty Start Date End Date Nohemy Guajardo MD 112 [facility] 110 [place] [address] PCP - ACO Reach 10/07/22 Nohemy Guajardo MD 112 [facility] 110 [place] [address] PCP - General Family Medicine 10/28/22 documented as of this encounter
--- OUTSIDE RECORDS SUMMARY | 2024-12-27 12:24 | XMS_ITS | Encounter Summary ---
Author Organization [facility] Address [address] [place] [address] Care Team Providers Care Brass Burnisher Name Role Phone Nohemy Guajardo MD Unavailable Nohemy Guajardo MD Primary Care Provider [phone] Encounter Details Date Type Department Care Team (Late Contact Info) Description 12/31/2022 Abstract [facility] [place] [facility] 112 [facility] 110 [place] [address] Nohemy Guajardo MD 112 [facility] 110 [place] [address] Social History Tobacco Use Types Packs/Day Years [...] Upcoming Encounters Date Type Department Care Team ([facility] [address] Contact Info) Description 04/02/2025 1:00 PM EST Office Visit [facility] [place] [facility] 112 [facility] 110 [place] [address] Nohemy Guajardo MD 112 [facility] 110 [place] [address] documented as of this encounter Visit Diagnoses Not on filedocumented in this encounter Additional Health Concerns Assessment Noted Time PHQ-9 Depression Total Score: 5 12/28/19 23 8:00 AM EDT documented as of this encounter Care Teams Brass Burnisher Relationship Specialty Start Date End Date Nohemy Guajardo MD 112 [facility] 110 [place] [address] PCP - ACO Reach 10/07/22 Nohemy Guajardo MD 112 [facility] 110 [place] [address] PCP - General Family Medicine 10/28/22 documented as of this encounter
--- OUTSIDE RECORDS SUMMARY | 2024-12-27 12:24 | XMS_ITS | Encounter Summary ---
Author Organization [facility] Address [address] [place] [address] Care Team Providers Care Manager Wholesale Name Role Phone Nohemy Guajardo MD Unavailable Nohemy Guajardo MD Primary Care Provider [phone] Encounter Details Date Type Department Care Team (Late Contact Info) Description 01/05/2023 Orders Only [facility] [place] [facility] [address] [place] [address] [place] [address] A, Unknown Practice [address] [place], [place] [phone] Social History Tobacco Use Types Packs/Day Years [...] Upcoming Encounters Date Type Department Care Team ([facility] Contact Info) Description 04/02/2025 1:00 PM EST Office Visit [facility] [place] [facility] [address] [address] [place] [address] Nohemy Guajardo MD 112 [facility] 110 [place] [address] documented as of this encounter Procedures Procedure [...] as of this encounter Care Teams Manager Wholesale Relationship Specialty Start Date End Date Nohemy Guajardo MD 112 [facility] 110 [place] [address] PCP - ACO Reach 10/07/22 Nohemy Guajardo MD 112 [facility] 110 [place] [address] PCP - General Family Medicine 10/28/22 documented as of this encounter
--- OUTSIDE RECORDS SUMMARY | 2024-12-27 12:24 | XMS_ITS | Encounter Summary ---
Author Organization [facility] tem Address [id number] [address] [place] [address] Care Team Providers Care Document Design Specialist Name Role Phone Nohemy Guajardo MD Primary Care Provider Encounter Details Date Type Department Care Team (Late st Contact Info) Description 03/03/2016 Refill [facility] [address] [place] [phone] Kristina Elizalde Social History Tobacco Use Types [...] on filedocumented in this encounter Care Teams Document Design Specialist Relationship Specialty Start Date End Date [place] [address] PCP - General Family Medicine 11/15/19 documented as of this encounter
--- OUTSIDE RECORDS SUMMARY | 2024-12-27 12:24 | XMS_ITS | Encounter Summary ---
Author Organization [facility] Address [address] [place] [address] Care Team Providers Care School Guard Name Role Phone Nohemy Guajardo MD Unavailable Nohemy Guajardo MD Primary Care Provider [phone] Encounter Details Date Type Department Care Team (Late Contact Info) Description 12/28/2023 Abstract [facility] [place] [facility] 112 [facility] 110 [place] [phone] Nohemy Guajardo MD 112 [facility] 110 [place] [address] Social History Tobacco Use Types Packs/Day Years [...] Encounters Date Type Department Care Team ([facility] Contact Info) Description 04/02/2025 1:00 PM EST Office Visit [facility] [place] [facility] 112 [facility] 110 [place] [address] Nohemy Guajardo MD 112 [place] [facility] 110 [place] [address] documented as of this encounter Visit Diagnoses Not on filedocumented in this encounter Additional Health Concerns Assessment Noted Time PHQ-9 Depression Total Score: 4 12/26/19 24 10:00 AM EDT documented as of this encounter Care Teams School Guard Relationship Specialty Start Date End Date Nohemy Guajardo MD [address] [place] [facility] 110 [place] [address] PCP - ACO Reach 10/07/22 Nohemy Guajardo MD [address] [place] [facility] [address] [place] [address] PCP - General Family Medicine 10/28/22 documented as of this encounter
--- OUTSIDE RECORDS SUMMARY | 2024-12-27 12:24 | XMS_ITS | Encounter Summary ---
Author Organization [facility] Address [address] [place] [address] Care Team Providers Care Coconut Candy Maker Name Role Phone Nohemy Guajardo MD Unavailable Nohemy Guajardo MD Primary Care Provider [phone] Reason for Visit * Reason Comments Med Refill Encounter Details Date Type Department Care Team (Late Contact Info) Description 12/22/2024 Refill [facility] [place] [facility] [address] [facility] 110 [place] [address] Nohemy Guajardo MD 112 [facility] 110 [place] [address] Essential hypertension Social History Tobacco Use Types [...] Upcoming Encounters Date Type Department Care Team ([facility] Contact Info) Description 04/02/2025 1:00 PM EST Office Visit [facility] [place] [facility] [address] [facility] 110 [place] [address] Nohemy Guajardo MD 112 [facility] [address] [place] [address] documented as of this encounter Visit Diagnoses Diagnosis Essential hypertension Unspecified essential hypertension documented in this encounter Additional Health Concerns Assessment Noted Time PHQ-9 Depression Total Score: 4 12/26/19 24 10:00 AM EDT documented as of this encounter Care Teams Coconut Candy Maker Relationship Specialty Start Date End Date Nohemy Guajardo MD 112 [facility] [address] [place] [address] PCP - ACO Reach 10/07/22 Nohemy Guajardo MD 112 [facility] [address] [place] [address] PCP - General Family Medicine 10/28/22 documented as of this encounter
--- OUTSIDE RECORDS SUMMARY | 2024-12-27 12:24 | XMS_ITS | Encounter Summary ---
Author Organization [facility] Address [address] [place] [address] Care Team Providers Care Supervisor Tank House Name Role Phone Nohemy Guajardo MD Unavailable Nohemy Guajardo MD Primary Care Provider [phone] Encounter Details Date Type Department Care Team (Late Contact Info) Description 12/17/2024 Abstract [facility] [place] [facility] 112 [facility] 110 [place] [address] Nohemy Guajardo MD 112 [facility] 110 [place] [address] Social History Tobacco Use Types Packs/Day Years [...] Upcoming Encounters Date Type Department Care Team ([facility] Contact Info) Description 04/02/2025 1:00 PM EST Office Visit [facility] [place] [facility] 112 [facility] 110 [place] [address] Nohemy Guajardo MD 112 [facility] 110 [place] [address] documented as of this encounter Visit Diagnoses Not on filedocumented in this encounter Additional Health Concerns Assessment Noted Time PHQ-9 Depression Total Score: 4 12/26/19 24 10:00 AM EDT documented as of this encounter Care Teams Supervisor Tank House Relationship Specialty Start Date End Date Nohemy Guajardo MD 112 [facility] 110 [place] [address] PCP - ACO Reach 10/07/22 Nohemy Guajardo MD 112 [facility] 110 [place] [address] PCP - General Family Medicine 10/28/22 documented as of this encounter
--- OUTSIDE RECORDS SUMMARY | 2024-12-27 12:24 | XMS_ITS | Encounter Summary ---
Author Organization [facility] Address [address] [place] [address] Care Team Providers Care House Wirer Name Role Phone Nohemy Guajardo MD Unavailable Nohemy Guajardo MD Primary Care Provider [phone] Encounter Details Date Type Department Care Team (Late Contact Info) Description 07/03/2024 Abstract [facility] [place] [facility] 112 [facility] 110 [place] [phone] Nohemy Guajardo MD 112 [facility] 110 [place] [address] Social History Tobacco Use Types Packs/Day Years [...] Department Care Team ([facility] Contact Info) Description 04/02/2025 1:00 PM EST Office Visit [facility] [place] [facility] [address] [facility] 110 [place] [address] Nohemy Guajardo MD 112 [place] [facility] 110 [place] [address] documented as of this encounter Visit Diagnoses Not on filedocumented in this encounter Additional Health Concerns Assessment Noted Time PHQ-9 Depression Total Score: 4 12/26/19 24 10:00 AM EDT documented as of this encounter Care Teams House Wirer Relationship Specialty Start Date End Date Nohemy Guajardo MD 112 [place] [facility] [address] [place] [address] PCP - ACO Reach 10/07/22 Nohemy Guajardo MD 112 [place] [facility] 110 [place] [address] PCP - General Family Medicine 10/28/22 documented as of this encounter
--- OUTSIDE RECORDS SUMMARY | 2024-12-27 12:24 | XMS_ITS | Encounter Summary ---
Author Organization [facility] Address [address] [place] [address] Care Team Providers Care Balance Staff Inspector Name Role Phone Nohemy Guajardo MD Unavailable Nohemy Guajardo MD Primary Care Provider Encounter Details Date Type Department Care Team (Late st Contact Info) Description 12/14/2024 Abstract [facility] 112 [facility] 110 [place] [address] Nohemy Guajardo MD 112 [facility] 110 [place] [address] Social History Tobacco Use Types Packs/Day Years [...] on file documented as of this encounter Progress Notes * Madiha Negrete MA - 12/14/2024 9:01 AM EDT Documented eye exam documented in this encounter Plan of Treatment Upcoming Encounters Date Type Department Care Team (Late st Contact Info) Description 04/02/2025 1:00 PM EST Office Visit [facility] [place] [facility] [address] [place] [address] [place] [address] Nohemy Guajardo MD [address] [place] 110 [place] [address] documented as of this encounter Procedures Procedure Name Priority Date/Time Associated Diagnosis Comments DIABETIC RETINOPATHY SCREENING - OU - BOTH EYES Routine 12/13/2024 10:00 AM EDT documented in this encounter Results * Diabetic Retinopathy Screening - OU - Both Eyes (12/13/2024 10:00 AM EDT) RESULTS normal Anatomical Region Laterality Modality Head Other Nohemy Guajardo MD OPHTH PHOTOGRAPHY Final Result documented in this encounter Visit Diagnoses Not on filedocumented in this encounter Additional Health Concerns Assessment Noted Time PHQ-9 Depression Total Score: 4 12/26/19 24 10:00 AM EDT documented as of this encounter Care Teams Balance Staff Inspector Relationship Specialty Start Date End Date Nohemy Guajardo MD [address] [facility] 110 [place] [address] PCP - ACO Reach 10/07/22 Nohemy Guajardo MD [address] [facility] 110 [place] [address] PCP - General Family Medicine 10/28/22 documented as of this encounter
--- OUTSIDE RECORDS SUMMARY | 2024-12-27 12:24 | XMS_ITS | Encounter Summary ---
Author Organization [facility] Address [address] [place] [address] Care Team Providers Care Wireless Sales Expert Name Role Phone Nohemy Guajardo MD Unavailable Nohemy Guajardo MD Primary Care Provider [phone] Encounter Details Date Type Department Care Team (Late Contact Info) Description 05/17/2023 Orders Only [facility] [place] [facility] [address] [place] [address] [place] [address] A, Unknown Practice [address] [place], [place] [phone] Social History Tobacco Use Types Packs/Day Years [...] 1:00 PM EST Office Visit [facility] [place] [facility] [address] [place] [address] [place] [address] Nohemy Guajardo MD [address] [facility] 110 [place] [address] documented as of this encounter Procedures Procedure [...] documented as of this encounter Care Teams Wireless Sales Expert Relationship Specialty Start Date End Date Nohemy Guajardo MD [address] [facility] [address] [place] [address] PCP - ACO Reach 10/07/22 Nohemy Guajardo MD [address] [facility] 110 [place] [address] PCP - General Family Medicine 10/28/22 documented as of this encounter
--- OUTSIDE RECORDS SUMMARY | 2024-12-27 12:24 | XMS_ITS | Encounter Summary ---
Author Organization [facility] Address [address] [place] [address] Care Team Providers Care Watchstander Name Role Phone Nohemy Prado MD Unavailable Nohemy Prado MD Primary Care Provider [phone] Encounter Details Date Type Department Care Team (Late Contact Info) Description 08/13/2023 Clinisync Result Encounter N[facility] External Department Unsolicited Nohemy Prado MD 112 [place] [facility] 110 [place] [address] Social History Tobacco Use Types Packs/Day Years [...] Upcoming Encounters Date Type Department Care Team ([facility] Contact Info) Description 04/02/2025 1:00 PM EST Office Visit [facility] [place] [address] [facility] 110 [place] [address] Nohemy Prado MD [address] [place] [address] documented as of this encounter Procedures Procedure Name Priority Date/Time Associated Diagnosis Comments XR LUMBAR SPINE 2 OR 3V 08/13/2023 6:43 AM EDT documented in this encounter Results * XR LUMBAR SPINE 2 OR 3V (08/13/2023 6:43 AM EDT) Anatomical Region Laterality Modality Radiographic Alice ging 08/13/2023 6:43 AM EDT Narrative 08/13/2023 6:46 AM EDT [address] [address] XRay Report Signed Patient: NUVIA ABRAHAM MR#: [id number] : 1945 Acct:[id number] Age/Sex: 78 / F ADM Date: 08/12/23 Loc: RAD Attending Dr: NOHEMY PRADO Ordering Physician: NOHEMY PRADO Date of Service: 08/12/23 Procedure(s): XR lumbar spine 2-3V Accession Number(s): [id number] cc: NOHEMY PRADO [address] [address] Patient Name: NUVIA ABRAHAM MRN: [id number] date: 1945 Sex: F Assigned Patient Location: [facility] Current Patient Location: Accession/Order Number: [id number] Exam Date: 08/12/2023 14:38 Report Date: 08/13/2023 [...] M.D. Signed By: 08/13/2346 DD/ 2 TD/TT: Disability Program Navigator: Procedure Note Radiology, Radiologist, MD - 08/17/2023 [place] [address] XRay Report Signed Patient: NUVIA ABRAHAM AMR#: [id number] : 1945cct:[id number] Age/Sex: 78 / FADM Date: 08/12/23 Loc: RAD Attending Dr: NOHEMY PRADO Ordering Physician: NOHEMY PRADO Date of Service: 08/12/23 Procedure(s): XR lumbar spine 2-3V Accession Number(s): [id number] cc: NOHEMY PRADO [place] [id number] Patient Name: NUVIA ABRAHAM MRN: [facility]:[id number] date: 1945 Sex: F Assigned Patient Location: [facility] Current Patient Location: Accession/Order Number: [id number] Exam Date: 08/12/2023 14:38 Report Date: 08/13/2023 [...] By: Camacho Dumont M.D. Signed By:08/13/2346 DD/ 2 TD/TT: Disability Program Navigator: us Nohemy Prado MD IMG XR PROCEDURES Final Result documented in this encounter Visit Diagnoses Not on filedocumented in this encounter Additional Health Concerns Assessment Noted Time PHQ-9 Depression Total Score: 5 12/28/19 23 8:00 AM EDT documented as of this encounter Care Teams Watchstander Relationship Specialty Start Date End Date Nohemy Prado MD 112 [place] [facility] 110 [place] [address] PCP - ACO Reach 10/07/22 Nohemy Prado MD 112 [facility] 110 [place] [address] PCP - General Family Medicine 10/28/22 documented as of this encounter
--- OUTSIDE RECORDS SUMMARY | 2024-12-27 12:24 | XMS_ITS | Encounter Summary ---
Author Organization [facility] Address [address] [place] [address] Care Team Providers Care Title I Instructional Assistant Name Role Phone Nohemy Guajardo MD Unavailable Nohemy Guajardo MD Primary Care Provider [phone] Encounter Details Date Type Department Care Team (Late Contact Info) Description 02/01/2023 Abstract [facility] [place] [facility] 112 [facility] 110 [place] [address] Nohemy Guajardo MD 112 [facility] 110 [place] [address] Social History Tobacco Use Types Packs/Day Years [...] Upcoming Encounters Date Type Department Care Team ([facility] Contact Info) Description 04/02/2025 1:00 PM EST Office Visit [facility] [place] [facility] 112 [facility] 110 [place] [address] Nohemy Guajardo MD 112 [place] [facility] 110 [place] [address] documented as of this encounter Visit Diagnoses Not on filedocumented in this encounter Additional Health Concerns Assessment Noted Time PHQ-9 Depression Total Score: 5 12/28/19 23 8:00 AM EDT documented as of this encounter Care Teams Title I Instructional Assistant Relationship Specialty Start Date End Date Nohemy Guajardo MD 112 [place] [facility] 110 [place] [address] PCP - ACO Reach 10/07/22 Nohemy Guajardo MD 112 [place] [facility] 110 [place] [address] PCP - General Family Medicine 10/28/22 documented as of this encounter
--- OUTSIDE RECORDS SUMMARY | 2024-12-27 12:24 | XMS_ITS | Encounter Summary ---
Author Organization [facility] Address [address] [place] [address] Care Team Providers Care Company Accountant Name Role Phone Nohemy Guajardo MD Unavailable Nohemy Guajardo MD Primary Care Provider [phone] Encounter Details Date Type Department Care Team (Late Contact Info) Description 09/16/2023 External Result Encounter N[facility] External Department Unsolicited Nohemy Guajardo MD 112 [facility] 110 [place] [address] Social History Tobacco Use Types [...] Type Department Care Team ([facility] Contact Info) Description 04/02/2025 1:00 PM EST Office Visit [facility] [place] 112 [facility] 110 [place] [address] Nohemy Guajardo MD 112 [facility] 110 [place] [address] documented as of this encounter Procedures Procedure [...] Latonya Riggs M.D.09/16/2023 10:57 AM Dictation Location: [place] [address] Transcribed By: [facility] 09/16/23 1057 Dictated By: Latonya Riggs MD 09/16/23 1046 Signed By: <Electronically signed by MD Latonya Riggs in [place]> 09/16/23 1057 Narrative 09/16/2023 10:59 AM EDT [facility] [place] [address] [place] [address] XRay Report Signed Patient: Lovely Martin MR#: [id number] : 1945 Acct:[id number] Age/Sex: 78 / F ADM Date: 09/16/23 Loc: Room: Type: [facility] Attending Dr: Nohemy Guajardo MD Copies to: Nohemy Guajardo MD Ordering Provider: Nohemy Guajardo MD Date of Service: 09/16/23 MR/MR lumbar spine wo con: M51.36, M43.16 M54.42, M54.41 ([id number]) XR/XR pre/post mri xray: M54.42, M54.41, M51.36, [...] xray Procedure Note Radiology, Radiologist, - 09/16/2023 [facility] [place] [address] [place] [address] XRay Report Signed Patient: Lovely Martin AMR#: [id number] : 8Acct:[id number] Age/Sex: 78 / FADM Date: 09/16/23 Loc: MR Room:Type: [facility] Attending Dr: Nohemy Guajardo MD Copies to: Nohemy Guajardo MD Ordering Provider: Nohemy Guajardo MD Date of Service: 09/16/23 MR/MR lumbar spine wo con: M51.36, M43.16M54.42, M54.41 ([id number]) XR/XR pre/post mri xray: M54.42, M54.41, M51.36, [...] Latonya Riggs M.D.09/16/2023 10:57 AM Dictation Location: [place] [address] Transcribed By: [facility] 09/16/23 1057 Dictated By: Latonya Riggs MD [...] documented as of this encounter Care Teams Company Accountant Relationship Specialty Start Date End Date Nohemy Guajardo MD [address] [place] [address] PCP - ACO Reach 10/07/22 Nohemy Guajardo MD 112 [place] [address] PCP - General Family Medicine 10/28/22 documented as of this encounter
--- OUTSIDE RECORDS SUMMARY | 2024-12-27 12:24 | XMS_ITS | Clinical Summary ---
Author Organization [facility] Address [address] [place] [address] Care Team Providers Care Parking Worker Name Role Phone Nohemy Guajardo MD Unavailable Nohemy Guajardo MD Primary Care Provider [phone] Allergies Active Allergy Reactions Criticality Noted Date [...] mouth 1 (one) time each day. Active [place]-3 Fatty Acids (Fish Oil) 1000 MG capsule [...] g by mouth Daily as needed. Active SITagliptin-metFO RMIN (Janumet) 50-500 MG tabletIndications :Type 2 diabetes mellitus with diabetic polyneuropathy, with long-term current use of insulin (HCC) Take 2 tablets by mouth in the [...] DAILY WITH FOOD OR MILK 180 tablet 3 025 Active levothyroxine (Synthroid, Levoxyl) 88 MCG tabletIndications :Acquired hypothyroidism TAKE 1 TABLET IN THE MORNING BEFORE A MEAL 90 tablet 3 025 Active omeprazole (PriLOSEC) [address] capsuleIndication s:Gastroesophagea l reflux disease without esophagitis TAKE 1 CAPSULE EVERY DAY 100 capsule 3 025 Active fenofibrate (Tricor) 145 MG tabletIndications :Mixed hyperlipidemia TAKE 1 TABLET EVERY DAY 100 tablet 3 025 Active Stiolto Respimat 2.5-2.5 MCG/ACT aerosol solution inhalerIndication s:Chronic obstructive pulmonary disease, unspecified ([facility]) INHALE 2 PUFFS EVERY DAY 12 g 3 Active insulin pen needle (Droplet Pen Meherrin) 32G x 4 mm miscIndications:O ther specified diabetes mellitus with other specified complication, unspecified whether intermodal customer service insulin use ([facility]) USE INSTRUCTED 300 each 3 025 Active OXcarbazepine (Trileptal) 300 MG tabletIndications :Other diabetic neurological complication associated with type 2 diabetes mellitus ([facility]) TAKE 1 TABLET IN THE MORNING AND TAKE 1 TABLET BEFORE BEDTIME 200 tablet 3 025 Active torsemide (Demadex) 10 MG tabletIndications :Lymphedema TAKE 1 TABLET EVERY MORNING 100 tablet 3 025 Active clopidogrel (Plavix) 75 MG tabletIndications :Stenosis of carotid artery, unspecified laterality TAKE 1 TABLET EVERY MORNING 100 tablet 3 025 Active insulin glargine (Lantus SoloStar) 100 UNIT/ML penIndications:Ty pe 2 diabetes mellitus with diabetic polyneuropathy, with long-term current use of insulin ([facility]) Inject 22 Units under the skin at bedtime 025 Active gabapentin (Neurontin) 600 MG tabletIndications :Type 2 diabetes mellitus with diabetic polyneuropathy, with long-term current use of insulin ([facility]) Take 1 tablet (600 mg) by mouth in the morning and 1 tablet (600 mg) in the evening and 1 tablet (600 mg) before bedtime. 300 tablet 3 025 Active amLODIPine (Norvasc) 10 MG tabletIndications :Essential hypertension TAKE 1 TABLET (10 MG) BY MOUTH DAILY. 100 tablet 1 07/07/2 025 Active OneTouch Ultra test stripIndications: Type 2 diabetes mellitus with diabetic polyneuropathy, with long-term current use of insulin ([facility]),Type 2 diabetes mellitus with diabetic peripheral angiopathy without gangrene, without long-term current use of insulin ([facility]) USE TO TEST BLOOD SUGAR TWICE DAILY 200 strip 3 Active ALPRAZolam (Xanax) 0.5 MG tabletIndications :Other insomnia Take 1 tablet (0.5 mg) by mouth as needed at bedtime for anxiety 30 tablet 025 2024 Active lisinopril 40 MG tabletIndications :Essential hypertension TAKE 1 TABLET EVERY MORNING 100 tablet 3 Active hydroCHLOROthiazi de (HYDRODiuril) 25 MG tabletIndications :Essential hypertension TAKE 1 TABLET EVERY MORNING 100 tablet 3 Active OneTouch Ultra test stripIndications: Type 2 diabetes mellitus with diabetic polyneuropathy, with long-term current use of insulin ([facility]) USE TO TEST BLOOD SUGAR TWICE DAILY 200 strip 3 024 2024 Discontinued lisinopril 40 MG tabletIndications :Essential hypertension TAKE 1 TABLET EVERY MORNING 100 tablet 3 024 2024 Discontinued hydroCHLOROthiazi de (HYDRODiuril) 25 MG tabletIndications :Essential hypertension TAKE 1 TABLET EVERY MORNING 100 tablet 3 024 2024 Discontinued ALPRAZolam (Xanax) 0.5 MG tabletIndications :Other insomnia Take 1 tablet (0.5 mg) by mouth as needed at bedtime for anxiety 30 tablet 025 2024 Discontinued(R eorder) ALPRAZolam (Xanax) 0.5 MG tabletIndications :Other insomnia Take 1 tablet (0.5 mg) by mouth as needed at bedtime for anxiety 30 tablet 025 2024 Discontinued(R eorder) Active Problems Problem Noted Date Diagnosed Date Bilateral carotid bruits 10/11/2024 Routine general medical examination at [facility] 12/26/2023 Atherosclerosis of aorta 12/26/2023 Assessment & [...] No symptoms currently Peripheral vascular disease, unspecified 024 Assessment & Plan (12/26/2023 11:19 AM EDT): [...] Encounters Date Type Department Care Team Description 12/22/2024 Refill [facility] [place] [facility] [address] [facility] [address] [place] [address] Nohemy Guajardo MD Essential hypertension 12/17/2024 [facility] [address] [address] [facility] [address] [place] [address] Nohemy Guajardo MD 12/14/2024 [facility] [address] [place] [address] [place] [address] Latonya Marie PA Other insomnia 12/14/2024 [facility] [address] [address] [place] [address] Nohemy Guajardo MD 12/10/2024 [facility] [address] [place] [address] Nohemy Guajardo MD Other insomnia 12/08/2024 [facility] [place] [facility] [address] [facility] [address] [place] [address] Nohemy Guajardo MD Type 2 diabetes mellitus with diabetic polyneuropathy, with long-term current use of insulin (HCC); Type 2 diabetes mellitus with diabetic peripheral angiopathy without gangrene, without long-term current use of insulin (HCC) 12/03/2024 Abstract [facility] [place] [facility] [address] [address] [place] [address] Nohemy Guajardo MD 11/18/2024 [facility] [address] [address] [facility] [address] [place] [address] Nohemy Guajardo MD Essential hypertension 11/12/2024 Telephone [facility] [place] [facility] [address] [facility] [address] [place] [address] Nohemy Guajardo MD 11/09/2024 [facility] [address] [place] [address] [place] [address] Nohemy Guajardo MD Type 2 diabetes mellitus with diabetic polyneuropathy, with long-term current use of insulin (HCC) 11/09/2024 Refill [facility] [address] [facility] [address] [place] [address] Nohemy Guajardo MD Other insomnia 10/22/2024 Results Follow-Up [facility] [address] [facility] [address] [place] [address] Nohemy Guajardo MD Vascular US carotid artery duplex bilateral 10/19/2024 10:30 AM EDT Ancillary Procedure [facility] [address] [place] [phone] Bilateral carotid bruits 10/19/2024 Travel 10/12/2024 Telephone [facility] [address] [facility] [address] [place] [phone] Latonya Marie PA 10/11/2024 3:30 PM EDT Office Visit [facility] [address] [facility] [address] [place] [phone] Nohemy Guajardo MD Diabetes mellitus with peripheral vascular disease (HCC) (Primary Dx); Epilepsy, unspecified, not intractable, without status epilepticus (HCC); Other secondary pulmonary hypertension (HCC); Heart failure, unspecified (HCC); Benign hypertension ; Grade II diastolic dysfunction; Type 2 diabetes mellitus with diabetic polyneuropathy, with long-term current use of insulin (HCC); Bilateral carotid bruits 10/11/[address]phone [facility] [address] [facility] [address] [place] [address] Nohemy Guajardo MD 10/11/2024 Travel 10/09/2024 Refill [facility] [address] [facility] [address] [place] [address] Nohemy Guajardo MD Other insomnia 10/01/2024 Refill [facility] [address] [facility] [address] [place] [address] Delia Hernandez, DONOR SERVICES MANAGER Stenosis of carotid artery, unspecified laterality 10/01/20[facility] [address] [facility] [address] [place] [address] Nohemy Guajardo MD Other diabetic neurological complication associated with type 2 diabetes mellitus (HCC); Lymphedema from Last 3 Months Immunizations Immunization Administration Dates Next Due Influenza, High Dose Seasonal, Preservative Free 01/06/2024,03/19/2022 Influenza, Recombinant, injectable, preservative free 04/21/2021 Influenza, Seasonal, Quadrivalent, Adjuvanted Novel [id number], preservative-free 06/13 Pneumococcal Conjugate PCV 13 11/07/2020 [...] 1:00 PM EST Office Visit [facility] [place] [facility] [address] [facility] [address] [place] [address] Nohemy Guajardo MD [address] [facility] [address] [place] [address] Health Maintenance Due Date Last Done Comments Lung Cancer Screening Shared Decision Making 1945 Diabetes: Urine Protein Screening 05/10/2024 05/10/2023, 10/28/2020, 10/22/2019 Medicare Annual Wellness (AWV) 12/25/2024 0 12/26/2023, 12/27/2022, 10/30/2021, Additional history exists Diabetes: Hemoglobin A1C 01/11/2025 025, 12/26/2023, 08/25/2023, Additional history exists Influenza Vaccine (#1) 2025 4, 03/21/2023, 03/19/2022, Additional history exists Diabetes: Retinopathy Screening 12/13/2026 12/13/2024, 11/30/2024, 02/29/2020 FIT-DNA Discontinued 11/23/2019, 11/23/2019 Pneumococcal Vaccine: 65+ Years Completed , 2018 FOBT Discontinued 11/10/2020 Colonoscopy Discontinued 01/20/2022, 01/05/2022 Colorectal Cancer Screening Discontinued CT Colonography Discontinued FIT Discontinued Sigmoidoscopy Discontinued Procedures Procedure Name Priority Date/Time Associated Diagnosis Comments DIABETIC RETINOPATHY SCREENING - OU - BOTH EYES Routine 12/13/2024 10:00 AM EDT DIABETIC RETINOPATHY SCREENING - OU - BOTH EYES Routine 11/30/2024 VAS US CAROTID ARTERY DUPLEX BILATERAL Routine 10/19/2024 [...] unspecified OCC BLD IMMUNO SCREEN Routine 11/10/2020 LAB COLOGUARD COLON CANCER SCREEN Routine 11/23/2019 from Last 3 Months or Most Recently Relevant to Health Maintenance Results * Diabetic Retinopathy Screening - OU - Both Eyes (12/13/2024 10:00 AM EDT) RESULTS normal Anatomical Region Laterality Modality Head Other us Nohemy Guajardo MD OPHTH PHOTOGRAPHY Final Result * Diabetic Retinopathy Screening - OU - Both Eyes (11/30/2024) RESULTS normal Anatomical Region Laterality Modality Head Other 11/30/2024 us Nohemy Guajardo MD OPHTH PHOTOGRAPHY Final Result * Vascular US carotid artery duplex bilateral (10/19/2024 11:02 AM EDT) Anatomical Region Laterality Modality Neck Ultrasound 10/22/2024 10:5 5 AM EDT Narrative 10/22/2024 10:55 AM EDT EXAM: VASC US CAROTID ARTERY DUPLEX BILATERAL HISTORY: Bilateral [...] present in the vertebral artery. There is [id number] plaque visualized in the left common carotid [...] II, MD, PHD at 22-Oct-2024 10:54:18 AM [facility] SRU criteria: <180 No plaque <2.0 Normal <180 <50% plaque <2.0 <50% 180-230 >50% plaque 2.0 - 4.0 50-69% >230 >50% plaque >4.0 >70% PSV 125-180 cm/sec and ICA/CCA PSV Ratio >= 2.0 is also consistent with 50- 69% stenosis. Procedure Note Carloz Heard MD - 10/22/2024 EXAM: [facility] US CAROTID ARTERY DUPLEX BILATERAL HISTORY: Bilateral [...] present in the vertebral artery. There is [id number] plaque visualized in the left common carotidartery [...] signed by CARLOZ HEARD II, MD, PHD [id number] 10:54:18 AM [facility] SRU criteria: <180 No plaque <2.0 Normal <180 <50% plaque <2.0 <50% 180-230 >50% plaque 2.0 - 4.0 50-69% >230 >50% plaque >4.0 >70% PSV 125-180 cm/sec and ICA/CCA PSV Ratio >= 2.0 is also consistent [id number]% stenosis. us Nohemy Guajardo MD IMG US [...] Information Site ID: [id number] Name: [facility] Address: [address] [facility], [address] [place] [id number] Director: Дмитрий Mendoza MD Nohemy Guajardo MD LAB URINE ORDERABLES Final Resul t Performing Organization Address City/[facility]/ZIP Co de Phone Number [facility] * Colonoscopy (01/05/2022 12:00 PM EDT) Anatomical Region Laterality Modality Endoscopy 01/05/2022 12:0 0 PM EDT Narrative 01/05/2022 12:00 PM EDT PERFORMED AT [facility] LOCATION:[id number] Procedure Note CONVERSION, GENERIC - 09/29/2022 PERFORMED AT [facility] LOCATION:[id number] Jesse Rahman MD ENDOSCOPY PROCEDURE ORDERABL ES Final Result * OCC BLD IMMUNO SCREEN (11/10/2020) OCCULT BLOOD NEGATIVE NEGATIVE [facility] PERFORMING LAB: see note [facility] Comment:[address] Laboratory - [employer] Latonya Jarrett,[place] [address] ,Ext. [phone] 11/10/2020 Nohemy Guajardo MD [facility] Final Result Performing Organization Address City/[facility]/ZIP Co de Phone Number [facility] * Cologuard?? colon cancer screening (11/23/2019) COLOGUARD RESULT REPORTABLE [...] screened with both Cologuard and colonoscopy. (Patricia Real al, N Engl J Med 2014;370(14):3877-6426) The normal value (reference range) for this assay is negative. COLOGUARD RE-SCREENING RECOMMENDATION: Periodic routine colorectal cancer screening is an important part of preventive healthcare for asymptomatic persons at average risk for colorectal cancer. Following a negative Cologuard result, the [place] [employer] and U.S. Multi-Society Task Force screening guidelines recommend a Cologuard re-screening interval of 3 years. References: [place] [employer] (ACS). Colorectal cancer prevention and early detection. [place], [place]: [place] [employer]; [updated 2015Sep 06]. https://www.cancer.org/cancer/oapvi-slllyc-bfwhiw/vhglgiydk-dhqegggng-fewpzws/ac s-rec ommendations.html. Accessed January 13, 2018; Dominic FRIAS, Tamiko HARMON, Lance KayK, Colorectal Cancer Screening: Recommendations for Physicians and Patients from the U.S. Multi-Society Task Force on Colorectal Cancer Screening, Am J Gastroenterology 2017; 112:2431-5781. TEST TYPE: Composite algorithmic analysis of stool [...] interval of every 3 years by the [place] [employer] and U.S. Multi-Society Task Force. [...] can be accessed at the following location: www.[employer].Envis/results. Additional description of the Cologuard test process, warnings and precautions can be found at www.cologuardtest.com. Rx only. 11/23/2019 Nohemy Guajardo MD LAB MOLECULAR DIAGNOSTICS ORDERA BLEAbhijeet Final Result [facility] from Last 3 Months or Most Recently Relevant to Health Maintenance Insurance MEDICARE [facility] Care Teams Parking Worker Relationship Specialty Start Date End Date Nohemy Guajardo MD [address] [place] [address] [address] [place] [address] PCP - ACO Reach 10/07/22 Nohemy Guajardo MD [address] [facility] [address] [place] [address] PCP - General Family Medicine 10/28/22
--- OUTSIDE RECORDS SUMMARY | 2024-12-27 12:29 | XMS_ITS | CCD ---
Author Organization [facility] Care Team Providers Care Embedded Firmware Developer Name Role Phone Mikie West Unavailable MD [...] Unavailable YAJAIRA, DR LOGAN Hurley Consulting Unavailable GATES, DR LOGAN Hurley Attending Unavailable YAJAIRA, DR LOGAN Hurley Admitting Unavailable JOHAN, DR JULIEN Primary Care Unavailable KETAN ALVAREZ Consulting Unavailable PAY, DR HUNTER Attending Unavailable PAY, DR HUNTER Admitting Unavailable LUMA BLAKE Consulting Unavailable JOHAN, DR JULIEN Primary Care Unavailable ZIEBER, DR GINGER Hurley Consulting Unavailable ELSIE, AUNG Attending Unavailable ELSIE, AUNG Admitting Unavailable JOHAN, DR JULIEN Primary Care Unavailable TERRANCE GENAO Consulting Unavailable ZAC HANKINS Attending Unavailable ZAC HANKINS Admitting Unavailable ZIEBER, DR GINGER Hurley Consulting Unavailable JOHAN, DR JULIEN Primary Care Unavailable KATKO, TERRANCE Yoder Consulting Unavailable ROBERT, ROXY Consulting Unavailable MARKER, DR FISHER Consulting Unavailable MARKER, DR FISHER Attending Unavailable MARKER, DR FISHER Admitting Unavailable JOHAN, DR JULIEN Primary Care Unavailable WEST, DR ARIAN Rahman Consulting Unavailable JOHAN, DR JULIEN Primary Care Unavailable HEMMER, DR LATONYA Palacio Attending Unavailable HEMMER, DR LATONYA Palacio Admitting Unavailable HEMMER, DR LATONYA Palacio Consulting Unavailable BEJ, LOGAN Consulting Unavailable JOHAN, DR JULIEN Primary Care Unavailable BEJ, LOGAN Attending Unavailable BEJ, LOGAN Admitting Unavailable HOY, DR ADO Consulting Unavailable HOY, DR DAO Attending Unavailable HOY, DR DAO Admitting Unavailable JOHAN, DR JULIEN Primary Care Unavailable ZIEBER, DR GINGER Hurley Consulting Unavailable PAY, DR HUNTER Consulting Unavailable SAMSA, RHIANNON Consulting Unavailable ZIPSER, ALFONSO Consulting Unavailable YAJAIRA, DR LOGAN Hurley Consulting Unavailable YAJAIRA, DR LOGNA Hurley Attending Unavailable YAJAIRA, DR LOGAN Hurley Admitting Unavailable JOHAN, DR JULIEN Primary Care Unavailable CHRISTINA, CARSON Consulting Unavailable JANET SCHWARTZ Consulting Unavailable MD Wily Prado Primary Care Provider [phone] MD Wily Prado Referring Provider CARMELA Tijerina Attending Provider PROVIDER, UNKNOWN Admitting Unavailable PROVIDER, UNKNOWN Attending Unavailable PROVIDER, UNKNOWN Admitting Unavailable PROVIDER, UNKNOWN Attending Unavailable Unavailable Primary Care Provider UnavailMD Wily Zhang Primary Care Provider [phone] MD Wily Prado Referring Provider CARMELA Tijerina Attending Provider MD Wily Prado Primary Care Provider MD Wily Prado Referring Provider CARMELA Tijerina Attending Provider MD Wily Prado Primary Care Provider MD Wily Prado Referring Provider CARMELA Tijerina Attending Provider MD Wily Prado Primary Care Provider [phone] MD Wily Prado Referring Provider [phone] CARMELA Tijerina Katherine Attending Provider Wily Prado MD Unavailable Wily Prado MD Primary Care Provider MD Wily Prado Primary Care Provider [phone] MD Wily Prado Attending Provider Wily Prado Attending Unavailable Wily Prado Primary Care Unavailable Wily Prado Admitting Unavailable WILY PRADO Attending Unavailable WILY PRADO Referring Unavailable LOGAN KAUR Attending Unavailable WILY PRADO Referring Unavailable WILY PRADO Attending Unavailable JALYN GUAN Attending Unavailable LOGAN KAUR Referring Unavailable LONDON CRABTREE Attending Unavailable LOGAN KAUR Referring Unavailable JALYN GUAN Attending Unavailable LOGAN KAUR Referring Unavailable LONDON CRABTREE Attending Unavailable LOGAN KAUR Referring Unavailable EDDIE AMBROCIO Attending Unavailable LOGAN KAUR Referring Unavailable JALYN GUAN Attending Unavailable LOGAN KAUR Referring Unavailable WILY PRADO Attending Unavailable WILY PRADO Attending Unavailable Trevor HERNANDEZ, Danitza Egan Attending Unavailable Allergies Allergy Classification Reported Allergen(s) Allergy Type Date of Onset Reaction(s) Facility (1 source) Bacitracin / Neomycin / Polymyxin B Drug Allergy Unknown [facility] Other (1 source) Cimetidine Drug Allergy Unknown [facility] Other (20 sources) Bacitracin; Translations: [bacitracin] Drug Allergy 2 [facility] (20 sources) Cimetidine; Translations: [cimetidine] Drug Allergy 2 [facility] (20 sources) Neomycin; Translations: [neomycin] Drug Allergy 2 [facility] (10 sources) contact metal agent; Translations: [contact metal agent] Propensity to adverse reactions 2 [facility] (11 sources) petrolatum,whit e; Translations: [petrolatum,whi te] Propensity to adverse reactions 2 [facility] (20 sources) polymyxin B; Translations: [polymyxin B] Propensity to adverse reactions 2 [facility] (1 source) Bacitracin / Neomycin / Polymyxin B Drug Allergy 5 [facility] (1 source) Cimetidine Drug Allergy 5 [facility] (20 sources) Bacitracin / Polymyxin B Drug Allergy 3 Unknown [facility] Work Phone: (20 sources) Petrolatum Drug Allergy 3 Unknown [facility] Medications Current Medications Medication Drug Class(es) Dates Sig (Normalized) Sig (Original) [id number] 200 actuat albuterol 0.09 mg/actuat metered dose inhaler (20 sources) beta2-Adrenergic Agonist Start: 12-17-2019 take 1 [...] for wheezing or shortness of breath. Active take 1 puff(s) by in halation every four hours as needed Ventolin HFA 108 (90 Base) MCG/ACT 1 puf f as needed Inhalation every 4 hrs Active albuterol 0.833 mg/ml / ipratropium bromide 0.167 mg/ml inhalation solution (20 sources) Anticholinergic, beta2-Adrenergic Agonist Start: 06-17-2022 ipratropium-albuterol (Duo-Neb) 0.5-2.5 mg/3 mL nebulizer solution Take 3 mL by nebulization every 6 (six) hours. PRN 06/17/2022 Active Alpha Lipoic Acid 200 MG (1 source) take 3 capsules by mouth once daily Alpha Lipoic Acid 200 MG 3 capsules Orally one time a day Active ALPRAZolam 0.5 mg oral tablet (20 sources) Benzodiazepine Start: 12-16-2023 End: 01-13-2025 ALPRAZolam (Xanax) 0.5 MG tablet Indications: Other insomnia Take 1 tablet (0.5 mg) by mouth as needed at bedtime for anxiety 30 tablet 12/14/2024 01/13/2025 Active amLODIPine 10 mg oral tablet (14 sources) Dihydropyridine Calcium Channel Latha Start: 05-08-2024 End: 12-16-2024 take 1 tablet by mouth once daily amLODIPine (Norvasc) 10 MG tablet Indications: Essential hypertension TAKE 1 TABLET (10 MG) BY MOUTH DAILY. 100 tablet 1 11/19/2024 Active ascorbic acid 60 mg / beta carotene 5000 unt / copper sulfate 40 mg / dl-alpha tocopheryl acetate 30 unt / sodium selenite 0.04 mg / zinc oxide 40 mg oral tablet (20 sources) Vitamin C take 1 tablet by mouth once daily Multiple Vitamin (Multivitamin Adult) tablet Take 1 tablet by mouth 1 (one) time each day at the same time. Active aspirin 81 mg delayed release oral tablet (17 sources) Platelet Aggregation Inhibitor, Nonsteroidal Anti-inflammatory Drug Start: 12-17-2019 Aspirin (Magno Low Dose Aspirin) 81 mg Tablet,Delayed Release (Dr/Ec) Active 81 MG PO Daily at bedtime December 17, 2019 12:00am atorvastatin 20 mg oral tablet (20 sources) HMG-CoA Reductase Inhibitor Start: 12-14-2019 End: 02-10-2024 atorvastatin (Lipitor) 20 MG tablet Indications: Essential hypertension TAKE 1 TABLET EVERY DAY 90 tablet 3 02/10/2024 Active B Complex + C TR - (1 source) B Complex + C TR - as directed Orally Active B Complex Vitamins (B COMPLEX 1 PO) (7 sources) B Complex Vitami ns (B COMPLEX 1 PO) Take 1 tablet by mouth 1 (one) time each day. 0 Active Calcium (1 source) Phosphate Binder, Calcium Calcium 1200+D3 Acti ve calcium carbonate 1500 mg / cholecalciferol 0.01 mg oral tablet (9 sources) Vitamin D Start: 12-17-2019 take 1 tablet by mouth once daily before lunch Calcium Carbonate-Vitamin D3 (Calcium 600 + D(3)) 600 mg(1,500mg) -400 unit Tablet Active 1 TAB PO Daily before lunch December 17, 2019 12:00am Calcium Citrate / Vitamin D (20 sources) take 1 tablet by mouth once daily Calcium Citrate-Vitamin D (CALCIUM CITRATE + D3 MAXIMUM PO) Take 1 tablet by mouth 1 (one) time each day. Active take 1 tablet by mouth once padmini y Calcium Citrate-Vitamin D (CALCIUM CITRATE + D3 MAXIMUM PO) Take 1 tablet by mouth 1 (one) time each day. 0 Active cetirizine hydrochloride 10 mg oral tablet (20 sources) Histamine-1 Receptor Antagonist Start: 12-17-2019 take 1 tablet by mouth once daily Cetirizine (Zyrtec) 10 mg Tablet Active 10 MG PO every day at noon December 17, 2019 12:00am clopidogrel 75 mg oral tablet (20 sources) [id number] Platelet Inhibitor Start: 10-01-2024 clopidogrel (Plavix) 75 MG tablet Indications: Stenosis of carotid artery, unspecified laterality TAKE 1 TABLET EVERY MORNING 100 tablet 3 10/01/2024 Active Start: 12-14-2019 clopidogrel (P lavix) 75 MG tablet Indications: Stenosis of carotid artery, unspecified laterality TAKE 1 TABLET EVERY MORNING 90 tablet 3 11/11/2023 Active docusate sodium 100 mg oral tablet (20 sources) Start: 12-29-2021 take 100 mg by mouth once daily Docusate Sodium Active 100 MG PO Daily December 29, 2021 12:00am Docusate Sodium (STOOL SOFTENER LAXATIVE PO) Take 1 tablet by mouth if needed Active Docusate Sodium (STOOL SOFTENER LAXATIVE PO) Take 1 tablet by mouth if needed 0 Active evening primrose oil 500 mg oral capsule (10 sources) Start: 12-17-2019 take 1000 mg by mouth once daily Evening [place] Oil Active 1000 MG PO every day at noon December 17, 2019 12:00am take 1 capsule by mouth once alma delia ly Evening [place] Oil 1000 MG 1 capsule Orally one time a day Active EVENING PRIMROSE OIL PO (20 sources) EVENING PRIMROSE OIL PO Take 1 application by mouth 1 (one) time each day. Active EVENING PRIMROSE OIL PO Take 1 application by mouth 1 (one) time each day. 0 Active famotidine 10 mg oral tablet (20 sources) Histamine-2 Receptor Antagonist Start: 12-17-2019 Famotidine (Pepcid Ac) 10 mg Tablet Active 20 MG PO Daily at bedtime December 17, 2019 12:00am famotidine (Pepc id) 20 MG tablet Take 1 tablet by mouth as needed at bedtime for indigestion or heartburn. Active fenofibrate 145 mg oral tablet (20 sources) Peroxisome Proliferator Receptor alpha Agonist Start: 07-16-2024 fenofibrate (Tricor) 145 MG tablet Indications: Mixed hyperlipidemia TAKE 1 TABLET EVERY DAY 100 tablet 3 07/16/2024 Active Start: 12-14-2019 fenofibrate (T ricor) 145 MG tablet Indications: Mixed hyperlipidemia (CMS/HCC) TAKE 1 TABLET EVERY DAY 100 tablet 3 08/26/2023 Active ferrous sulfate 325 mg oral tablet (20 sources) Start: 12-01-2021 take 1 tablet by mouth once daily ferrous sulfate 325 (65 Fe) MG tablet Take 1 tablet by mouth 1 (one) time each day at the same time. 12/01/2021 Active Fish Oils (1 source) take 1 capsule by mouth twice daily Fish Oil 1200 MG 1 capsule Orally Twice a day Active gabapentin 600 mg oral tablet (20 sources) Anti-epileptic Agent Start: 12-14-2019 take 1 [...] (600 mg) before bedtime. 300 tablet 3 11/09/2024 Active Horse [place] 300 MG (1 source) take 1 capsule by mouth once daily Horse [place] 300 MG 1 capsule Orally one time a day Active HORSE CHESTNUT PO (20 sources) take 1 tablet by mouth once daily HORSE CHESTNUT PO Take 1 tablet by mouth 1 (one) time each day. Active take 1 tablet by mouth once padmini y HORSE CHESTNUT PO Take 1 tablet by mouth 1 (one) time each day. 0 Active horse chestnut seed 300 mg oral capsule (9 sources) Start: 12-17-2019 take 300 mg by mouth once daily [place] Active 300 MG PO every day at noon December 17, 2019 12:00am hydroCHLOROthiazide 25 mg oral tablet (20 sources) Thiazide Diuretic Start: 10-06-2020 hydroCHLOROthiazide (HYDRODiuril) 25 MG tablet Indications: Essential hypertension TAKE 1 TABLET EVERY MORNING 100 tablet 3 12/01/2023 Active 3 ml insulin glargine 100 unt/ml pen injector (20 sources) Insulin Analog Start: 10-11-2024 insulin glargine (Lantus SoloStar) 100 UNIT/ML pen Indications: Type 2 diabetes mellitus with diabetic polyneuropathy, with long-term current use of insulin (HCC) Inject 22 Units under the skin at bedtime 10/11/2024 Active Start: 08-27-2024 End: 10-11-2024 Lantus SoloStar 100 UNIT/ML pen Indications: Type 2 diabetes mellitus with diabetic polyneuropathy, with long-term current use of insulin (CMS/HCC) INJECT 25 UNITS UNDER THE SKIN ONE TIME DAILY DIRECTED 30 mL 3 08/27/2024 10/11/2024 Discontinued (Reorder) Start: 12-14-2019 Lantus SoloSta r 100 UNIT/ML pen Indications: Type 2 diabetes mellitus with diabetic polyneuropathy, with long-term current use of insulin (CMS/HCC) INJECT 25 UNITS UNDER THE SKIN ONE TIME DAILY DIRECTED 30 mL 3 07/25/2023 Active Lantus 100 UNIT/ ML as directed Subcutaneous Active levothyroxine sodium 0.088 mg oral tablet (20 sources) l-Thyroxine Start: 06-08-2024 levothyroxine (Synthroid, Levoxyl) 88 MCG tablet Indications: Acquired hypothyroidism TAKE 1 TABLET IN THE MORNING BEFORE A MEAL 90 tablet 3 06/08/2024 Active Start: 08-01-2023 take 1 tablet by yana th before mealtime levothyroxine (Synthroid, Levoxyl) 88 MCG tablet Indications: Acquired hypothyroidism (CMS/HCC) TAKE 1 TABLET (88 MCG) BY MOUTH IN THE MORNING BEFORE A MEAL 90 tablet 3 08/01/2023 Active Start: 06-01-2023 take 1 tablet by yana th before mealtime levothyroxine (Synthroid) 88 MCG tablet Indications: Acquired hypothyroidism (CMS/HCC) Take 1 tablet (88 mcg) by mouth in the morning. Take before meals. 100 tablet 3 06/01/2023 Active Start: 12-14-2019 take 75 ug by mouth once daily in the morning Levothyroxine Active 75 MCG PO Every morning December 14, 2019 12:00am take 1 tablet by yana th once daily in the morning Levothyroxine Sodium 75 MCG 1 tablet in the morning on an empty stomach Orally Once a day Active lisinopril 40 mg oral tablet (20 sources) Angiotensin Converting Enzyme Inhibitor Start: 10-06-2020 lisinopril 40 MG tablet Indications: Essential hypertension TAKE 1 TABLET EVERY MORNING 100 tablet 3 12/01/2023 Active magnesium gluconate 550 mg oral tablet (20 sources) take 1 tablet by mouth in the morning magnesium 30 MG tablet Take 30 mg by mouth in the morning. Active meloxicam 15 mg oral tablet (7 sources) Nonsteroidal Anti-inflammatory Drug Start: 03-08-2023 meloxicam (Mobic) 15 MG tablet Indications: Carpal tunnel syndrome, unspecified laterality TAKE 1 TABLET EVERY DAY 90 tablet 3 03/08/2023 Active metFORMIN hydrochloride 500 mg / SITagliptin 50 mg oral tablet (20 sources) Biguanide, Dipeptidyl Peptidase 4 Inhibitor Start: 12-31-2022 End: 02-10-2024 take 2 tablets by mouth in the morning SITagliptin-metFOR MIN (Janumet) 50-500 MG tablet Indications: Type 2 diabetes mellitus with diabetic polyneuropathy, with long-term current use of insulin (HCC) Take 2 tablets by mouth in the morning. 180 tablet 3 02/10/2024 Active Start: 12-14-2019 take 2 tablets by mo [facility] once daily Sitagliptin Phos-Metformin (Janumet) 50-500 mg tablet Active 2 TAB PO Daily December 14, 2019 12:00am take 2 tablets one time daily metoprolol tartrate 25 mg oral tablet (20 sources) beta-Adrenergic Latha Start: 10-06-2020 metoprolol tartrate (Lopressor) 25 MG tablet Indications: Essential hypertension TAKE 1 TABLET THREE TIMES DAILY (IN THE MORNING, IN THE EVENING, AND BEFORE BEDTIME) 270 tablet 3 02/13/2024 Active Multivital (1 source) Multivital Activ e Multivitamin (Daily-Sandy) Tablet (9 sources) Start: 12-17-2019 take 1 tablet by mouth once daily at bedtime Multivitamin (Daily-Sandy) Tablet Active 1 TAB PO Daily at bedtime December 16, 2019 11:00pm plus iron Start: 12-17-2019 take 1 tablet by yana th once daily at bedtime Multivitamin (Daily-Sandy) Tablet Active 1 TAB PO Daily at bedtime December 17, 2019 12:00am plus iron naproxen 500 mg oral tablet (20 sources) Nonsteroidal Anti-inflammatory Drug Start: 06-04-2024 naproxen (Naprosy n) 500 MG tablet Indications: Hand weakness TAKE 1 TABLET TWICE DAILY WITH FOOD OR MILK 180 tablet 3 06/04/2024 Active Start: 12-17-2019 naproxen (Napr osyn) 500 MG tablet Indications: Hand weakness TAKE 1 TABLET TWICE DAILY WITH FOOD OR MILK 180 tablet 3 08/01/2023 Active take 1 tablet by yana th every twelve hours at mealtime as needed Naproxen 500 MG 1 tablet with food or milk as needed Orally every 12 hrs Active niacin 500 mg oral tablet (20 sources) Nicotinic Acid Start: 12-17-2019 take 500 mg by mouth once daily Niacin Active 500 MG PO every day at noon December 17, 2019 12:00am 10 actuat olodaterol 0.0025 mg/actuat / tiotropium 0.0025 mg/actuat inhalation spray (20 sources) Anticholinergic, beta2-Adrenergic Agonist Start: 08-20-2024 Stiolto Respimat 2.5-2.5 MCG/ACT aerosol solution inhaler Indications: Chronic obstructive pulmonary disease, unspecified (HCC) INHALE 2 PUFFS EVERY DAY 12 g 3 08/20/2024 Active Start: 05-31-2024 tiotropium-olo daterol (Stiolto Respimat) 2.5-2.5 MCG/ACT aerosol solution inhaler Indications: Chronic obstructive pulmonary disease, unspecified (CMS/HCC) Inhale 2 Inhalation Daily 4 g 3 05/31/2024 Active Start: 02-07-2024 tiotropium-olo daterol (Stiolto Respimat) 2.5-2.5 MCG/ACT aerosol solution inhaler Indications: Chronic obstructive pulmonary disease, unspecified (CMS/HCC) INHALE 2 PUFFS BY MOUTH ONCE A DAY 4 g 3 02/07/2024 Active Start: 09-15-2023 tiotropium-olo daterol (Stiolto Respimat) 2.5-2.5 MCG/ACT aerosol solution inhaler Indications: Chronic obstructive pulmonary disease, unspecified (CMS/HCC) INHALE 2 PUFFS ONCE A DAY 4 g 3 09/15/2023 Active Start: 09-18-2020 Tiotropium-Olo daterol (Stiolto Respimat) 2.5-2.5 [...] MOUTH EVERY DAY Inhalation for 90 Active [place] 3-Wxc-Zev-Fish Oil (Fish Oil) 1,000 mg (120 mg-180 mg) Capsule (9 sources) Start: 12-17-2019 take 1 capsule by mouth twice daily [place] 1-Hlp-Ile-Fish Oil (Fish Oil) 1,000 mg (120 mg-180 mg) Capsule Active 1 CAP PO Twice daily December 16, 2019 11:00pm Start: 12-17-2019 take 1 capsule by mo [facility] twice daily [place] 4-Bmc-Wkr-Fish Oil (Fish Oil) 1,000 mg (120 mg-180 mg) Capsule Active 1 CAP PO Twice daily December 17, 2019 12:00am [place]-3 Fatty Acids (Fish Oi l) 1000 MG capsule delayed-release (20 sources) take 1 capsule by mouth once daily [place]-3 Fatty Acids (Fish Oil) 1000 MG capsule delayed-release Take 1 capsule by mouth 1 (one) time each day. Active take 1 capsule by mouth once alma delia ly [place]-3 Fatty Acids (Fish Oil) 1000 MG capsule delayed-release Take 1 capsule by mouth 1 (one) time each day. 0 Active omeprazole 20 mg delayed release oral capsule (20 sources) Proton Pump Inhibitor Start: 07-16-2024 omeprazole (PriLOSEC ) [address] capsule Indications: Gastroesophageal reflux disease without esophagitis TAKE 1 CAPSULE EVERY DAY 100 capsule 3 07/16/2024 Active Start: 12-29-2021 omeprazole (Pr iLOSEC) [address] capsule Indications: Gastroesophageal reflux disease without esophagitis TAKE 1 CAPSULE ONE TIME DAILY 100 capsule 3 08/26/2023 Active OXcarbazepine 300 mg oral tablet (20 sources) Anti-epileptic Agent Start: 10-01-2024 OXcarbaze pine (Trileptal) 300 MG tablet Indications: Other diabetic neurological complication associated with type 2 diabetes mellitus (HCC) TAKE 1 TABLET IN THE MORNING AND TAKE 1 TABLET BEFORE BEDTIME 200 tablet 3 10/01/2024 Active Start: 12-14-2019 OXcarbazepine (Trileptal) 300 MG tablet Indications: Other diabetic neurological complication associated with type 2 diabetes mellitus (CMS/HCC) TAKE 1 TABLET IN THE MORNING AND TAKE 1 TABLET BEFORE BEDTIME 180 tablet 3 11/14/2023 Active polyethylene glycol 3350 32049 mg powder for oral solution (20 sources) Osmotic Laxative Start: 07-30-2022 Polyethylene Glycol 3350 (Miralax) 17 gram Powder In Packet Active 17 GM PO Daily July 30, 2022 12:00am Sennosides-Docusate Sodium 8.6-50 MG (1 source) take 1 tablet by mouth once daily in the evening as needed Sennosides-Docusate Sodium 8.6-50 MG 1 tablet in the evening as needed Orally Once a day Active sodium chloride 1000 mg oral tablet (20 sources) take 1 tablet by mouth every twenty-four hours as needed sodium chloride 1 g tablet Take 1 g by mouth Daily as needed. Active Spectravite - (1 source) Spectravite - as directed Orally Active thioctic acid 200 mg oral capsule (20 sources) take 1 tablet by mouth once daily Alpha Lipoic Acid 200 MG capsule Take 1 tablet by mouth 1 (one) time each day. Active torsemide 10 mg oral tablet (20 sources) Loop Diuretic Start: 10-01-2024 torsemide (Dem adex) 10 MG tablet Indications: Lymphedema TAKE 1 TABLET EVERY MORNING 100 tablet 3 10/01/2024 Active Start: 12-14-2019 torsemide (Dem adex) 10 MG tablet Indications: Lymphedema TAKE 1 TABLET EVERY MORNING 90 tablet 3 11/14/2023 Active traMADol hydrochloride 50 mg oral tablet (20 sources) Opioid Agonist Start: 06-16-2023 End: 02-16-2024 take 1 tablet by mouth every six hours for pain traMADol (Ultram) 50 MG tablet Indications: Lumbar spondylosis , 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 claudication Take 1 tablet (50 mg) by mouth every 6 (six) hours if needed for severe pain 120 tablet 01/17/2024 02/16/2024 Active Start: 02-22-2022 take 50 mg by mouth twice padmini y Tramadol Active 50 MG PO Twice daily February 22, 2022 12:00am ubidecarenone 30 mg oral capsule (20 sources) take 1 capsule by mouth in the morning co-enzyme Q-10 30 MG capsule Take 30 mg by mouth in the morning. Active Vitamin B Complex (B-Complex) Tablet (9 sources) Start: 12-17-2019 take 1 tablet by mouth once daily Vitamin B Complex (B-Complex) Tablet Active 1 TAB PO every day at noon December 16, 2019 11:00pm Start: 12-17-2019 take 1 tablet by yana th once daily Vitamin B Complex (B-Complex) Tablet Active 1 TAB PO every day at noon December 17, 2019 12:00am vitamin e 180 mg oral capsule (20 sources) Start: 12-17-2019 take 800 [IU] by mouth once daily in the morning Vitamin E Active 800 UNIT PO Every morning December 17, 2019 12:00am take 2 capsules by mouth once da feliberto alpha tocopherol (Vitamin E) 400 units capsule Take 2 capsules by mouth 1 (one) time each day at the same time. Active Vitamin E 400 UNIT (1 source) take 1 capsule by mo [facility] once daily Vitamin E 400 UNIT 1 capsule Orally Once a day Active Zinc (10 sources) Start: 12-17-2019 take 50 mg by mouth once daily Zinc Active 50 MG PO every day at noon December 16, 2019 11:00pm Start: 12-17-2019 take 50 mg by mouth once daily Zinc Active 50 MG PO every day at noDecember 17, 2019 12:00am take 1 tablet by mouth once padmini y Zinc 50 MG 1 tablet Orally Once a day Active zinc gluconate 50 mg oral tablet (20 sources) take 1 tablet by yana th once daily zinc gluconate 50 MG tablet Take 1 tablet by mouth 1 (one) time each day at the same time. Active Completed/Discontinued Medications Medication Drug Class(es) Dates Sig (Normalized) Sig (Original) Gluc[place] [id number]-C-M n (Glucosamine Chondroitin) 550-30-1 mg Capsule (9 sources) Start: 12-17-2019 End: 01-12-2022 take 1 capsule by mouth twice daily [place]uc[place] 5jcr-Cej-Eajyf-C-Mn (Glucosamine Chondroitin) 550-30-1 mg Capsule Discontinued 1 CAP PO Twice daily December 16, 2019 11:00pm January 12, 2022 10:09am Start: 12-17-2019 End: 01-12-2022 take 1 capsule by mouth twice daily Glucos [place] 4gkv-Szy-Pxzhl-C-Mn (Glucosamine Chondroitin) 550-30-1 mg Capsule Discontinued 1 CAP PO Twice daily December 17, 2019 12:00am January 12, 2022 11:09am 12 hr guaiFENesin 600 mg extended release oral tablet (9 sources) Start: 12-17-2019 End: 12-31-2021 take 2 tablets by mouth twice daily, then take 1 tablet by mouth every twelve hours Guaifenesin (Mucinex) 600 mg Tablet Extended Release 12hr Discontinued 1200 MG PO Twice daily December 17, 2019 12:00am December 31, 2021 3:19pm hydroCHLOROthiazide 12.5 mg / lisinopril 20 mg oral tablet (9 sources) Thiazide Diuretic, Angiotensin Converting Enzyme Inhibitor Start: 12-14-2019 End: 10-06-2020 take 1 tablet by mouth once daily Lisinopril-Hydroc hlorothiazide Discontinued 1 TAB PO every day at noon December 14, 2019 12:00am October 06, 2020 2:11pm melatonin 10 mg oral tablet (20 sources) Start: 12-17-2019 End: 07-30-2022 take 5 mg by mouth at bedtime Melatonin Discontinued 5 MG PO Bedtime December 17, 2019 12:00am July 30, 2022 10:47am melatonin 5 MG t ablet Take 1 tablet by mouth if needed Active Melatonin 10 MG as directed Orally Active 7 actuat umeclidinium 0.0625 mg/actuat / vilanterol 0.025 mg/actuat dry powder inhaler (9 sources) Anticholinergic, beta2-Adrenergic Agonist Start: 12-17-2019 End: 09-18-2020 Umeclidinium-Vilanterol (Anoro Ellipta) 62.5-25 mcg/actuation Blister With Device Discontinued 1 INH INHALATION Daily December 17, 2019 12:00am September 18, 2020 3:52pm Problems Active Problems Problem Classification Problem Date Documented Date Episodic/Chronic Anxiety disorders (20 sources) Feeling agitated; Translations: [Acute stress reaction] Onset: 08-25-2023 01-12-2022 Chronic Cancer of cervix (1 source) Personal history of malignant neoplasm of cervix uteri; Translations: [PERS HX MALIG NEOPLASM CERV UTERI] Onset: 01-25-2022 Episodic Chronic obstructive pulmonary disease and bronchiectasis (20 sources) Chronic obstructive pulmonary disease with (acute) exacerbation; Translations: [Chronic obstructive pulmonary disease with (acute) lower respiratory infection] Onset: 11-13-2021 Resolved: 12-27-2022 10-31-2022 Chronic Congestive heart failure; nonhypertensive (20 sources) Heart failure, unspecified; Translations: [Heart failure] Onset: 11-25-2021 12-26-2023 Chronic Coronary atherosclerosis and other heart disease (1 source) Atherosclerotic heart disease of [place] coronary artery without angina pectoris; Translations: [ASHD [place] 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] Onset: 11-25-2021 Chronic Deficiency and other anemia (7 sources) Iron deficiency anemia, unspecified; Translations: [Iron deficiency anemia, unspecified] 01-12-2022 Episodic Deficiency and other anemia (1 source) Anemia, unspecified; Translations: [ANEMIA UNSPECIFIED] Onset: 01-25-2022 Episodic Diabetes mellitus with complications (20 sources) Neuropathy due to diabetes mellitus; Translations: [Type 2 diabetes mellitus with diabetic neuropathy, unspecified] Onset: 10-31-2022 Resolved: 12-27-2022 12-27-2022 Chronic Diabetes mellitus without complication (20 sources) Type 2 diabetes mellitus without complications; Translations: [Diabetes mellitus] Onset: 01-25-2022 10-31-2022 Chronic Digestive congenital anomalies (20 sources) Enlargement of tongue; Translations: [Macroglossia] Onset: 10-31-2022 10-31-2022 Chronic Disorders of lipid metabolism (20 sources) Pure hypercholesterolemia, unspecified; Translations: [Hyperlipidemia, unspecified] Onset: 08-17-2021 10-31-2022 Chronic E Codes: Fall (2 sources) Unspecified fall, initial encounter; Translations: [Fall] Onset: 01-18-2022 Episodic Epilepsy; convulsions (20 sources) Epilepsy, unspecified, not intractable, without status epilepticus; Translations: [Epilepsy] Onset: 08-17-2021 12-26-2023 Chronic Esophageal disorders (20 sources) Gastro-esophageal reflux disease without esophagitis; Translations: [Gastroesophageal reflux disease] Onset: 01-25-2022 10-31-2022 Chronic Essential hypertension (20 sources) Hypertensive disorder; Translations: [Essential (primary) hypertension] Onset: 01-25-2022 10-31-2022 Chronic Headache; including migraine (20 sources) Complicated migraine; Translations: [Migraine with aura, not intractable, without status migrainosus] Onset: 10-31-2022 10-31-2022 Chronic Hypertension with complications and secondary hypertension (20 sources) Hypertensive emergency; Translations: [Hypertensive emergency] Onset: 11-25-2021 01-12-2022 Chronic Menopausal disorders (20 sources) Other primary ovarian failure; Translations: [Primary ovarian failure] Onset: 11-13-2021 10-31-2022 Chronic Nausea and vomiting (4 sources) Nausea; Translations: [NAUSEA] Onset: 01-20-2022 Episodic Occlusion or stenosis of precerebral arteries (20 sources) Right carotid artery stenosis; Translations: [Occlusion and stenosis of right carotid artery] Onset: 02-24-2021 Resolved: 02-24-2021 Chronic Open wounds of extremities (4 sources) Unspecified open wound of left great toe without damage to nail, initial encounter; Translations: [UNS OP WND LT GRT TOE NO DMG NL INT] Onset: 12-24-2021 Episodic Osteoarthritis (20 sources) Osteoarthritis; Translations: [Unspecified osteoarthritis, unspecified site] Onset: 10-31-2022 10-31-2022 Chronic Other aftercare (1 source) intermediate (current) use of aspirin; Translations: [[facility] CURRENT USE OF ASPIRIN] Onset: 01-25-2022 Episodic Other aftercare (1 source) intermediate (current) use of insulin; Translations: [[facility] CURRENT USE OF INSULIN] Onset: 01-25-2022 Episodic Other aftercare (1 source) Other mcfp (current) drug therapy; Translations: [OTH [facility] CURRENT DRUG THERAPY] Onset: 01-25-2022 Episodic Other and ill-defined heart disease (20 sources) Diastolic dysfunction; Translations: [Other ill-defined heart diseases] Onset: 10-31-2022 10-31-2022 Chronic Other bone disease and musculoskeletal deformities (1 source) Other specified disorders of bone density and structure, left thigh; Translations: [OT D/O BONE DEN STRUCT LT THIGH] Onset: 11-13-2021 Episodic Other circulatory disease (1 source) Disorder of carotid artery; Translations: [Disorder of arteries and arterioles, unspecified] Chronic Other circulatory disease (12 sources) Carotid bruit; Translations: [Other specified symptoms and signs involving the circulatory and respiratory systems] Onset: 10-11-2024 10-11-2024 Episodic Other diseases of veins and lymphatics (20 sources) Lymphedema; Translations: [Lymphedema, not elsewhere classified] Onset: 10-31-2022 10-31-2022 Chronic Other injuries and conditions due to external causes (1 source) History of falling; Translations: [HISTORY OF FALLING] Onset: 01-25-2022 Episodic Other lower respiratory disease (3 sources) Shortness of breath; Translations: [SHORTNESS OF BREATH] Onset: 11-24-2021 Episodic Other lower respiratory disease (1 source) Other nonspecific abnormal finding of lung field; Translations: [[facility] NONSPECIFIC ABN FIND LNG FIELD] Onset: 11-13-2021 Episodic Other nervous system disorders (4 sources) Polyneuropathy, unspecified; Translations: [POLYNEUROPATHY UNSPECIFIED] Onset: 08-12-2021 Chronic Other nervous system disorders (1 source) Hereditary and idiopathic neuropathy, unspecified; Translations: [HEREDITARY IDIOPATH NEUROPATHY UNS] Onset: 08-17-2021 Chronic Other nervous system disorders (20 sources) Carpal tunnel syndrome; Translations: [Carpal tunnel syndrome, unspecified upper limb] Onset: 10-31-2022 10-31-2022 Chronic Other nervous system disorders (20 sources) Polyneuropathy; Translations: [Polyneuropathy, unspecified] Onset: 10-31-2022 10-31-2022 Chronic Other nervous system disorders (20 sources) Bilateral carpal tunnel syndrome; Translations: [Carpal tunnel syndrome, bilateral upper limbs] Onset: 12-20-2023 12-20-2023 Chronic Other non-traumatic joint disorders (4 sources) Pain in right hip; Translations: [PAIN IN RIGHT HIP] Onset: 01-06-2022 Episodic Other non-traumatic joint disorders (4 sources) Pain in right elbow; Translations: [PAIN IN RIGHT ELBOW] Onset: 01-04-2022 Episodic Other non-traumatic joint disorders (1 source) Pain in right knee; Translations: [PAIN IN RIGHT KNEE] Onset: 01-06-2022 Episodic Other nutritional; endocrine; and metabolic disorders (20 sources) Body mass index 30+ - obesity; Translations: [Obesity, unspecified] Onset: 10-31-2022 10-31-2022 Chronic Other nutritional; endocrine; and metabolic disorders (20 sources) Hypervitaminosis B6; 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] Onset: 12-20-2023 12-20-2023 Chronic Other screening for suspected conditions (not mental disorders or infectious disease) (1 source) Encounter for screening mammogram for malignant neoplasm of breast; Translations: [ENC SCR MAMMO MALIG NEOPLASM BREAST] Onset: 11-13-2021 Episodic Other upper respiratory disease (3 sources) Other specified disorders of nose and nasal sinuses; Translations: [OTH SPEC D/O NOSE NASAL SINUSES] Onset: 01-14-2022 Episodic Peripheral and visceral atherosclerosis (20 sources) Peripheral vascular disease, unspecified; Translations: [Generalized atherosclerosis] Onset: 08-17-2021 12-26-2023 Chronic Pneumonia (except that caused by tuberculosis or sexually transmitted disease) (1 source) Pneumonia, unspecified organism; Translations: [PNEUMONIA UNSPECIFIED ORGANISM] Onset: 11-25-2021 Episodic Pulmonary heart disease (20 sources) Secondary pulmonary hypertension; Translations: [Other secondary pulmonary hypertension] Onset: 12-26-2023 12-26-2023 Chronic Residual codes; unclassified (13 sources) Insomnia; Translations: [Other insomnia] 02-15-2024 Chronic Residual codes; unclassified (20 sources) Obstructive sleep apnea syndrome; Translations: [Obstructive sleep apnea (adult) (pediatric)] Onset: 12-20-2023 12-20-2023 Chronic Residual codes; unclassified (1 source) Other specified [...] Spondylosis; intervertebral disc disorders; other back problems (20 sources) Lumbar spondylosis; Translations: [Spondylosis without myelopathy or radiculopathy, lumbar region] Onset: 12-27-2022 12-27-2022 Chronic Substance-related disorders (20 sources) Smoker; Translations: [Nicotine dependence, unspecified, uncomplicated] Onset: 02-24-2021 Resolved: 02-24-2021 Chronic Superficial injury; contusion (2 sources) Contusion of other part of head, initial encounter; Translations: [Contusion of right elbow, initial encounter] Onset: 01-06-2022 Episodic Thyroid disorders (20 sources) Hypothyroidism, unspecified; Translations: [Hypothyroidism] Onset: 01-25-2022 10-31-2022 Chronic Transient cerebral ischemia (20 sources) Transient cerebral ischemic attack, unspecified; Translations: [Transient cerebral ischemia] Onset: 06-10-2021 10-31-2022 Chronic Unclassified (1 source) CONTACT W/AND (SUSP) EXPOS COVID-19; Translations: [CONTACT W/AND (SUSP) EXPOS COVID-19] Onset: 11-25-2021 Past or Other Problems Problem Classification Problem Date Documented Date Episodic/Chronic Calculus of urinary tract (20 sources) Personal history of urinary calculi; Translations: [Kidney stone] Onset: 01-25-2022 10-31-2022 Episodic Conditions associated with dizziness or vertigo (4 sources) Dizziness and giddiness; Translations: [DIZZINESS AND GIDDINESS] Onset: 05-27-2021 Episodic Deficiency and other anemia (20 sources) Iron deficiency anemia; Translations: [Iron deficiency anemia, unspecified] Onset: 10-31-2022 01-12-2022 Episodic Deficiency and other anemia (1 source) Other dietary vitamin B12 deficiency anemia; Translations: [OTH DIETARY VITAMIN B12 DEF ANEMIA] Onset: 08-17-2021 Episodic Fluid and electrolyte disorders (20 sources) Hypo-osmolality and hyponatremia; Translations: [Hyponatremia] Onset: 01-25-2022 3 Episodic Immunizations and screening for infectious disease (1 source) Encounter for screening for infections with a predominantly sexual mode of transmission; Translations: [ENC SCREEN INFECTIONS SEXL TRANSMS] Onset: 08-17-2021 Episodic Mood disorders (20 sources) Mood disorders Onset: 12-27-2022 Resolved: 12-26-2023 12-27-2022 Nutritional deficiencies (1 source) Pyridoxine deficiency; 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] Onset: 08-17-2021 Episodic Other aftercare (1 source) 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; Translations: [JAVA APPLICATION ENGINEER USE ORAL HYPOGLYCEMIC DX] Onset: 05-28-2021 Episodic Other bone disease and musculoskeletal deformities (20 sources) Osteopenia; Translations: [Other specified disorders of bone density and structure, left thigh] Onset: 10-31-2022 10-31-2022 Episodic Other connective tissue disease (1 source) Myalgia, unspecified site; Translations: [MYALGIA UNSPECIFIED SITE] Onset: 08-17-2021 Episodic Other connective tissue disease (20 sources) Weakness of hand; Translations: [Other symptoms and signs involving the musculoskeletal system] Onset: 10-31-2022 10-31-2022 Episodic Other diseases of kidney and ureters (20 sources) Acquired renal cystic disease; Translations: [Cyst of kidney, acquired] Onset: 10-31-2022 10-31-2022 Episodic Other lower respiratory disease (20 sources) Abnormal breathing; Translations: [Unspecified abnormalities of breathing] Onset: 08-25-2023 01-12-2022 Episodic Other nervous system disorders (4 sources) Paresthesia of skin; Translations: [PARESTHESIA OF SKIN] Onset: 06-10-2021 Episodic Other nervous system disorders (4 sources) Anesthesia of skin; Translations: [ANESTHESIA OF SKIN] Onset: 05-28-2021 Episodic Other nervous system disorders (20 sources) White matter disease; Translations: [White matter disease, unspecified] Onset: 10-31-2022 10-31-2022 Episodic Other non-traumatic joint disorders (6 sources) Hip pain; Translations: [Pain in right hip] 06-20-2023 Episodic Residual codes; unclassified (1 source) Insomnia; Translations: [Insomnia, unspecified] Episodic Residual codes; unclassified (20 sources) Noncompliance with treatment; Translations: [Patient's noncompliance with other medical treatment and regimen] Onset: 08-25-2023 01-12-2022 Episodic Residual codes; unclassified (20 sources) Delirium; Translations: [Disorientation, unspecified] Onset: 08-25-2023 01-12-2022 Episodic Spondylosis; intervertebral disc disorders; other back problems (20 sources) Lumbago with sciatica, right side; Translations: [Acute back pain with sciatica] Onset: 01-25-2022 05-10-2023 Episodic Results Test Name Value Interpretation Reference Range Facility [facility] US CAROTID ARTERY DUPLE X BILATERALon 10-19-2024 [facility] US CAROTID ARTERY DUPLEX BILATERAL EXAM: [facility] US CAROTID ARTERY DUPLEX BILATERAL HISTORY: Bilateral [...] present in the vertebral artery. There is ydki-uz-edmgkner plaque visualized in the left common carotid [...] criteria. Interpreted by: Electronically signed by CARLOZ HOUGH II, MD, PHD at 22-Oct-2024 10:54:18 AM [facility] SRU criteria: <180 No plaque <2.0 Normal <180 <50% plaque <2.0 <50% 180-230 >50% plaque 2.0 - 4.0 50-69% >230 >50% plaque >4.0 >70% PSV 125-180 cm/sec and ICA/CCA PSV Ratio >= 2.0 is also consistent with 50-69% stenosis. Normal Not Available Laboratory - Hematology and Cell countson 10-11-2024 HbA1c (Bld) [Mass fraction] 4.8 % [facility] No Panel Informationon 10-11 Interpretation and review of laboratory results Normal [facility] CBC (H/H, RBC, INDICES, WBC, PLT)on 05-12-2024 Erythrocyte distribution width (RBC) [Ratio] 14.0 % Normal 11.0-15.0 [facility] Comment on above: Performed By: #### 7 600 #### [facility] [address], [address] [place] [address] [employer]: Дмитрий Mendoza MD #### [id number], 1759 #### [facility] [address] [employer] Electrician: Joyce Vaca Hematocrit (Bld) [Volume fraction] 40.1 % Normal 35.0-45.0 [facility] Comment on above: Performed By: #### 7 600 #### [facility] [address], [address] [place] [address] [employer]ian: Дмитрий Mendoza MD #### [id number], 1759 #### [facility] [address] [employer] Electrician: Joyce Vaca Hemoglobin (Bld) [Mass/Vol] 13.5 g/dL Normal 11.7-15.5 [facility] Comment on above: Performed By: #### 7 600 #### [facility] [address], [address] [place] [address] [employer]ian: Дмитрий Mendoza MD #### [id number], 1759 #### [facility] [id number] Aviation Electrician: Joyce Vaca MCH (RBC) [Entitic mass] 30.6 pg Normal 27.0-33.0 [facility] Comment on above: Performed By: #### 7 600 #### [facility] [address], [address] [place] [address] [employer] Electrician: Дмитрий Mendoza MD #### [id number], 1759 #### [facility] [address] Aviation Electrician: Joyce Vaca MCHC (RBC) [Mass/Vol] 33.7 g/dL Normal 32.0-36.[address] [facility] Comment on above: Result Comment: For adults, a slight decrease in the calculated MCHC value (in the range of 30 to 32 g/dL) is most likely not clinically significant; however, it should be interpreted with caution in correlation with other red cell parameters and the patient's clinical condition. Performed By: #### 7 600 #### [facility] [place] [address] [employer] Electrician: Дмитрий Mendoza MD #### [id number], 1759 #### [facility] [address] [employer] Electrician: Joyce Vaca MCV (RBC) [Entitic vol] 90.9 fL Normal 80.0-100.0 [facility] Comment on above: Performed By: #### 7 600 #### [facility] [place] [address] [employer] Electrician: Дмитрий Mendoza MD #### [id number], 1759 #### [facility] [address] [employer] Electrician: Joyce Vaca Platelet mean volume (Bld) [Entitic vol] 8.5 fL Normal 7.5-12.5 [facility] Comment on above: Performed By: #### 7 600 #### [facility] [place] [address] [employer] Electrician: Дмитрий Mendoza MD #### [id number], 1759 #### [facility] [address] Aviation Electrician: Joyce Vaca Platelets (Bld) [#/Vol] 309 10*3/uL Normal 140-400 [facility] Comment on above: Performed By: #### 7 600 #### [facility] [address], [address] [place] [address] [employer] Electrician: Дмитрий Mendoza MD #### [id number], 1759 #### [facility] [address] [place] [address] Aviation Electrician: Joyce Vaca RBC (Bld) [#/Vol] 4.41 10*6/uL Normal 3.80-5.10 [facility] Comment on above: Performed By: #### 7 600 #### [facility] [address], [address] [place] [address] Aviation Electrician: Дмитрий Mendoza MD #### [id number], 1759 #### [facility] [address] Aviation Electrician: Joyce Vaca WBC (Bld) [#/Vol] 7.2 10*3/uL Normal 3.8-10.8 [facility] Comment on above: Performed By: #### 7 600 #### [facility] [place] [address] [employer] Electrician: Дмитрий Mendoza MD #### [id number], 1759 #### [facility] [address] Aviation Electrician: Joyce Vaca [facility] 05-12-2024 Albumin [Mass/Vol] 3.7 g/dL Normal 3.6-5.1 [facility] Comment on above: Performed By: #### 7 600 #### [facility] [address], [address] [place] [address] Aviation Electrician: Дмитрий Mendoza MD #### [id number], 1759 #### [facility] [id number] Aviation Electrician: Joyce Vaca Albumin/Globulin [Mass ratio] 1.3 {ratio} Normal 1.0-2.5 [facility] Comment on above: Performed By: #### 7 600 #### [facility] of [address], [address] [place] [address] [employer] Electrician: Дмитрий Mendoza MD #### [id number], 1759 #### [facility] [address] Aviation Electrician: Joyce Vaca ALP [Catalytic activity/Vol] 35 U/L Low 37-153 [facility] Comment on above: Performed By: #### 7 600 #### [facility] [address], [address] [place] [address] Aviation Electrician: Дмитрий Mendoza MD #### [id number], 1759 #### [facility] [address] Aviation Electrician: Joyce Vaca ALT [Catalytic activity/Vol] 16 U/L Normal 6-29 [facility] Comment on above: Performed By: #### 7 600 #### [facility] [address], [address] [place] [address] Aviation Electrician: Дмитрий Mendoza MD #### [id number], 1759 #### [facility]-[address] Aviation Electrician: Joyce Vaca AST [Catalytic activity/Vol] 26 U/L Normal 10-35 [facility] Comment on above: Performed By: #### 7 600 #### [facility] [address], [address] [place] [address] Aviation Electrician: Дмитрий Mendoza MD #### [id number], 1759 #### [facility] [address] Aviation Electrician: Joyce Vaca Bilirubin [Mass/Vol] 0.5 mg/dL Normal 0.2-1.2 [facility] Comment on above: Performed By: #### 7 600 #### [facility] [address], [address] [place] [address] Aviation Electrician: Дмитрий Mendoza MD #### [id number], 1759 #### [facility] [address] [place] [address] [employer] Electrician: Joyce Vaca BUN/CREATININE RATIO SEE NOTE: Normal 6-22 [facility] Comment on above: Result Comment: Not Reported: BUN and Creatinine are within reference range. Performed By: #### 7 600 #### [facility] [address], [address] [place] [address] [employer] Electrician: Дмитрий Mendoza MD #### [id number], 1759 #### [facility] [address] [place] [address] Aviation Electrician: Joyce Friedmani Calcium [Mass/Vol] 9.6 mg/dL Normal 8.6-10.4 [facility] Comment on above: Performed By: #### 7 600 #### [facility] [address], [address] [place] [address] [employer] Electrician: Дмитрий Mendoza MD #### [id number], 175 #### [facility] [address] [place] [address] [employer] Electrician: Joyce Hurley Flati Chloride [Moles/Vol] 97 mmol/L Low 98-110 [facility] Comment on above: Performed By: #### 7 600 #### [facility] [address], [address] [place] [address] Aviation Electrician: Дмитрий Mendoza MD #### [id number], 1759 #### [facility] [address] [place] [address] Aviation Electrician: Joyce Hurley Flati CO2 [Moles/Vol] 30 mmol/L Normal 20-32 [facility] Comment on above: Performed By: #### 7 600 #### [facility] [address], [address] [place] [address] Aviation Electrician: Дмитрий Mendoza MD #### [id number], 175 #### [facility] [address] [place] [id number] Aviation Electrician: Joyce Vaca Creatinine [Mass/Vol] 0.69 mg/dL Normal 0.60-1.[address] [facility] Comment on above: Performed By: #### 7 600 #### [facility] [address], [address] [place] [address] Aviation Electrician: Дмитрий Mendoza MD #### [id number], 1759 #### [facility] [address] [place], [place] [id number] Aviation Electrician: Joyce Friedmani GFR/1.73 sq M.predicted among non-blacks MDRD (S/P/Bld) [Vol rate/Area] 90 mL/min/{1.73_m2} Normal > OR = 60 [facility] Comment on above: Performed By: #### 7 600 #### [facility] [address], [address] [place] [address] Aviation Electrician: Дмитрий Mendoza MD #### [id number], 1759 #### [facility] [address] [place], [place] [id number] Aviation Electrician: Joyce Vaca Globulin (S) [Mass/Vol] 2.8 g/dL Normal 1.9-3.7 [facility] Comment on above: Performed By: #### 7 600 #### [facility] [address], [address] [place] [address] [employer] Electrician: Дмитрий Mendoza MD #### [id number], 1759 #### [facility] [address] [place] [id number] [employer] Electrician: Joyce Hurley Flati Glucose [Mass/Vol] 81 mg/dL Normal 65-139 [facility] Comment on above: Result Comment: Non-fasting reference interval Performed By: #### 7 600 #### [facility] [address], [address] [place] [address] [employer] Electrician: Дмитрий Mendoza MD #### [id number], 1757 #### [facility] [address] [address] [employer] Electrician: Joyce Vaca Potassium [Moles/Vol] 4.1 mmol/L Normal 3.5-5.3 [facility] Comment on above: Performed By: #### 7 600 #### [facility] [address], [address] [place] [address] [employer] Electrician: Дмитрий Mendoza MD #### [id number], 1759 #### [facility] [address] [place] [address] Aviation Electrician: Joyce Vaca Protein [Mass/Vol] 6.5 g/dL Normal 6.1-8.1 [facility] Comment on above: Performed By: #### 7 600 #### [facility] [place] [address] [employer] Electrician: Дмитрий Mendoza MD #### [id number], 1759 #### [facility] [address] [place] [address] Aviation Electrician: Joyce Vaca Sodium [Moles/Vol] 135 mmol/L Normal 135-146 [facility] Comment on above: Performed By: #### 7 600 #### [facility] [place] [address] Aviation Electrician: Дмитрий Mendoza MD #### [id number], 1759 #### [facility] [address] Aviation Electrician: Joyce Vaca Urea nitrogen [Mass/Vol] 21 mg/dL Normal 7-25 [facility] Comment on above: Performed By: #### 7 600 #### [facility] [address], [address] [place] [address] [employer]: Дмитрий Mendoza MD #### [id number], 1750 #### [facility] [address] [place] [phone] [employer] Electrician: Joyce Vaca LIPID PANEL, [facility] 12-2 Cholesterol [Mass/Vol] 156 mg/dL Normal <200 [facility] Comment on above: Order Comment: FASTI NG:NO COLLECTION REQUIREMENTS NOT MET. PATIENT ADVISED TO RETURN. FASTING: NO Performed By: #### 7 600 #### [facility] [address], [address] [place] [address] [employer]ian: Дмитрий Mendoza MD #### [id number], 1759 #### [facility] [address] [place] [address] [employer] Electrician: Joyce Vaca Cholesterol in HDL [Mass/Vol] 42 mg/dL Low > OR = 50 [facility] Comment on above: Order Comment: FASTI NG:NO COLLECTION REQUIREMENTS NOT MET. PATIENT ADVISED TO RETURN. FASTING: NO Performed By: #### 7 600 #### [facility] [address], [address] [place] [address] [employer]ian: Дмитрий Mendoza MD #### [id number], 1759 #### [facility] [address] [place] [address] [employer] Electrician: Joyce Vaca Cholesterol in LDL [Mass/Vol] 85 mg/dL Normal [facility] Comment on above: Order Comment: FASTI NG:NO COLLECTION REQUIREMENTS NOT MET. PATIENT ADVISED TO RETURN. FASTING: NO Result Comment: Refe rence range: <100 Desirable range <100 mg/dL for primary prevention; <70 mg/dL for patients with CHD or diabetic patients with > or = 2 CHD risk factors. LDL-C is now calculated using the Yraely calculation, which is a validated novel method providing better accuracy than the Friedewald equation in the estimation of LDL-C. Devyn SUE et al. ZORAIDA. 2013;310(19): 9018-9879 (http://education.DxTerity.Betterific/faq/VFW146) Performed By: #### 7 600 #### [facility] [address], [address] [place] [address] [employer]ian: Дмитрий Mendoza MD #### [id number], 1759 #### [facility] [address] [place], [place] [id number] Aviation Electrician: Joyce Vaca Cholesterol.total/Rocío sterol in HDL [Mass ratio] 3.7 {ratio} Normal <5.0 [facility] Comment on above: Order Comment: FASTI NG:NO COLLECTION REQUIREMENTS NOT MET. PATIENT ADVISED TO RETURN. FASTING: NO Performed By: #### 7 600 #### [facility] [address], [address] [place] [address] [employer]ian: Дмитрий Mendoza MD #### [id number], 1759 #### [facility] [address] [place] [phone] [employer]ian: Joyce Vaca NON HDL CHOLESTEROL 114 mg/dL (calc) Normal <130 [facility] Comment on above: Order Comment: FASTI NG:NO COLLECTION REQUIREMENTS NOT MET. PATIENT ADVISED TO RETURN. FASTING: NO Result Comment: For patients with diabetes plus 1 major ASCVD risk factor, treating to a non-HDL-C goal of <100 mg/dL (LDL-C of <70 mg/dL) is considered a therapeutic option. Performed By: #### 7 600 #### [facility] [address], [address] [place] [address] [employer]ian: Дмитрий Mendoza MD #### [id number], 1759 #### [facility] [address] [place] [phone] [employer]ian: Joyce Vaca Triglyceride [Mass/Vol] 197 mg/dL High <150 [facility] Comment on above: Order Comment: FASTI NG:NO COLLECTION REQUIREMENTS NOT MET. PATIENT ADVISED TO RETURN. FASTING: NO Performed By: #### 7 600 #### [facility] [address], [address] [place] [address] [employer] Electrician: Дмитрий Mendoza MD #### [id number], 1758 #### [facility] [address] [place] [phone] [employer] Electrician: Joyce Vaca MR lumbar spine wo conon MR lumbar spine wo con [facility] Main [address] [address] XRay Report Signed Patient: Nuvia Martin MR#: [id number] : 1945 Acct:[id number] Age/Sex: 78 / F ADM Date: 09/16/23 Loc: MR Room: Type: [facility] Attending Dr: Wily Prado MD Copies to: Wily Prado MD Ordering Provider: Wily Prado MD Date of Service: 09/16/23 MR/MR lumbar spine wo con: M51.36, M43.16 M54.42, M54.41 ([id number]) XR/XR pre/post mri xray: M54.42, M54.41, M51.36, [...] Latonya Riggs M.D.09/16/2023 10:57 AM Dictation Location: [place] [address] Transcribed By: [facility] 09/16/23 1057 Dictated By: Latonya Riggs MD 09/16/23 1046 Signed By: 09/16/23 1057 Normal [facility] Alanine aminotransferase [En zymatic activity/volume] in Serum or PlasmaOrdered By: Taylor Tijerina on 01-31-2023 ALT [Catalytic activity/Vol] 16 U/L 7-52 [facility] Albumin [Mass/volume] in Ser um or Plasma by Bromocresol green (BCG) dye binding methoOrdered By: Taylor Tijerina on 01-31-2023 Albumin BCG dye [Mass/Vol] 3.7 g/dL 3.5-5.7 [facility] Alkaline phosphatase [Enzyma tic activity/volume] in Serum or PlasmaOrdered By: Taylor Tijerina on 01-31-2023 ALP [Catalytic activity/Vol] 72 U/L 34-104 [facility] Aspartate aminotransferase [ Enzymatic activity/volume] in Serum or PlasmaOrdered By: Taylor Tijerina 01-31-2023 AST [Catalytic activity/Vol] 24 U/L 13-39 [facility] Basophils Auto (Bld) [#/Vol] Ordered By: Taylor Tijerina on 01-31-2023 Basophils (Bld) [#/Vol] 0.1 10*3/uL 0.0-0.2 [facility] Basophils/100 WBC Auto (Bld) Ordered By: Taylor Tijerina on 01-31-2023 Basophils/100 WBC (Bld) 0.9 % . [facility] Bilirubin.total [Mass/volume ] in Serum or PlasmaOrdered By: Taylor Tijerina on 01-31-2023 Bilirubin [Mass/Vol] 0.4 mg/dL 0.3-1.0 [facility] Calcium [Mass/volume] in Ser um or PlasmaOrdered By: Taylor Tijerina on 01-31-2023 Calcium [Mass/Vol] 9.1 mg/dL 8.6-10.3 [facility] Carbon dioxide, total [Moles /volume] in Serum or PlasmaOrdered By: Taylor Tijerina on 01-31-2023 CO2 [Moles/Vol] 30.6 mmol/L 21.0-31.0 [facility] Chloride [Moles/volume] in S ramiro or PlasmaOrdered By: Taylor Tijerina on 01-31-2023 Chloride [Moles/Vol] 102 mmol/L 98-107 [facility] Creatinine [Mass/volume] in Serum or PlasmaOrdered By: Taylor Tijerina on 01-31-2023 Creatinine [Mass/Vol] 0.90 mg/dL 0.60-1.20 [facility] Eosinophils Auto (Bld) [#/Vo l]Ordered By: Taylor Tijerina on 01-31-2023 Eosinophils (Bld) [#/Vol] 0.1 10*3/uL 0.0-0.45 [facility] Eosinophils/100 WBC Auto (Bl d)Ordered By: Taylor Tijerina on 01-31-2023 Eosinophils/100 WBC (Bld) 2.0 % . [facility] Erythrocyte distribution wid th Auto (RBC) [Ratio]Ordered By: Taylor Tijerina on 01-31-2023 Erythrocyte distribution width (RBC) [Ratio] 13.8 % 11.9-15.3 [facility] Ferritin [Mass/volume] in Se rum or PlasmaOrdered By: Taylor Tijerina on 01-31-2023 Ferritin [Mass/Vol] 58.3 ng/mL 11.0-306.8 [facility] Globulin Calc (S) [Mass/Vol] Ordered By: Taylor Tijerina on 01-31-2023 Globulin (S) [Mass/Vol] 2.6 g/dL [facility] Glucose [Mass/volume] in Ser um or PlasmaOrdered By: Taylor Tijerina on 01-31-2023 Glucose [Mass/Vol] 118 mg/dL 70-100 [facility] Comment on above: ADA recommended refe rence rangeRandom Glucose Reference Range is dependent on time and content of last meal. Glucose of more than 200 mg/dL in a nonstressed, ambulatory subject supports the diagnosis of Diabetes Mellitus. Hematocrit Auto (Bld) [Volum e fraction]Ordered By: Taylor Tijerina on 01-31-2023 Hematocrit (Bld) [Volume fraction] 40.4 % 34.0-46.4 [facility] Hemoglobin [Mass/volume] in BloodOrdered By: Taylor Tijerina on 01-31-2023 Hemoglobin (Bld) [Mass/Vol] 13.9 g/dL 11.8-15.4 [facility] Iron [Mass/volume] in Serum or PlasmaOrdered By: Taylor Tijerina on 01-31-2023 Iron [Mass/Vol] 91 ug/dL 50-212 [facility] Iron binding capacity [Mass/ volume] in Serum or PlasmaOrdered By: Taylor Tijerina on 01-31-2023 Iron binding capacity [Mass/Vol] 385 ug/dL 255-450 [facility] Iron saturation [Mass Fracti on] in Serum or PlasmaOrdered By: Taylor Tijerina on 01-31-2023 Iron saturation [Mass fraction] 23.6 % 20-50 [facility] Leukocytes [#/volume] correc shara for nucleated erythrocytes in Blood by Automated counOrdered By: Taylor Tijerina on 01-31-2023 WBC corrected for nucl RBC Auto (Bld) [#/Vol] 6.9 10*3/uL 3.8-11.6 [facility] Lymphocytes Auto (Bld) [#/Vo l]Ordered By: Taylor Tijerina on 01-31-2023 Lymphocytes (Bld) [#/Vol] 1.8 10*3/uL 1.00-4.8 [facility] Lymphocytes/100 WBC Auto (Bl d)Ordered By: Taylor Tijerina on 01-31-2023 Lymphocytes/100 WBC (Bld) 26.2 % . [facility] MCH Auto (RBC) [Entitic mass ]Ordered By: Taylor Tijerina on 01-31-2023 MCH (RBC) [Entitic mass] 32.5 pg 24.7-34.3 [facility] MCHC Auto (RBC) [Mass/Vol]Or dered By: Taylor Tijerina on 01-31-2023 MCHC (RBC) [Mass/Vol] 34.4 g/dL 32.0-35.0 [facility] MCV Auto (RBC) [Entitic vol] Ordered By: Taylor Tijerina on 01-31-2023 MCV (RBC) [Entitic vol] 94.5 fL 80-100 [facility] Monocytes Auto (Bld) [#/Vol] Ordered By: Taylor Tijerina on 01-31-2023 Monocytes (Bld) [#/Vol] 0.6 10*3/uL 0.0-0.8 [facility] Monocytes/100 WBC Auto (Bld) Ordered By: Taylor Tijerina on 01-31-2023 Monocytes/100 WBC (Bld) 9.2 % . [facility] Neutrophils Auto (Bld) [#/Vo l]Ordered By: Taylor Tijerina on 01-31-2023 Neutrophils (Bld) [#/Vol] 4.2 10*3/uL 1.8-7.7 [facility] Neutrophils/100 WBC Auto (Bl d)Ordered By: Taylor Tijerina on 01-31-2023 Neutrophils/100 WBC (Bld) 61.7 % . [facility] No Panel InformationOrdered By: Taylor Tijerina on 01-31-2023 Estimated GFR (CKD-EPI) > 60.0 mL/Min [facility] Creatinine Clearance (Chem 49.88 [facility] Nucleated erythrocytes [Pres ence] in Blood by Automated countOrdered By: Taylor Tijerina on 01-31-2023 Nucleated RBC Auto Ql (Bld) 0.1 /100{WBC} 0-0.5 [facility] Platelet mean volume Auto (B ld) [Entitic vol]Ordered By: Taylor Tijerina on 01-31-2023 Platelet mean volume (Bld) [Entitic vol] 7.4 fL 6.3-10.7 [facility] Platelets Auto (Bld) [#/Vol] Ordered By: Taylor Tijerina on 01-31-2023 Platelets (Bld) [#/Vol] 349 10*3/uL 150-450 [facility] Potassium [Moles/volume] in Serum or PlasmaOrdered By: Taylor Tijerina on 01-31-2023 Potassium [Moles/Vol] 4.2 mmol/L 3.5-5.1 [facility] Comment on above: Hemolysis is present at a level that could interfere with the result. Protein [Mass/volume] in Ser um or PlasmaOrdered By: Taylor Tijerina on 01-31-2023 Protein [Mass/Vol] 6.3 g/dL 6.4-8.9 [facility] RBC Auto (Bld) [#/Vol]Ordere d By: Taylor Tijerina on 01-31-2023 RBC (Bld) [#/Vol] 4.27 10*6/uL 3.60-5.00 [facility] Serum or plasma albumin/glob ulin mass ratioOrdered By: Taylor Tijerina on 01-31-2023 Albumin/Globulin [Mass ratio] 1.4 {ratio} [facility] Serum or plasma anion gap de terminationOrdered By: Taylor Tijerina on 01-31-2023 Anion gap [Moles/Vol] 7.6 mmol/L 6.0-15.0 [facility] Sodium [Moles/volume] in Ser um or PlasmaOrdered By: Taylor Tijerina on 01-31-2023 Sodium [Moles/Vol] 136 mmol/L 136-145 [facility] Transferrin [Mass/volume] in Serum or PlasmaOrdered By: Taylor Tijerina on 01-31-2023 Transferrin [Mass/Vol] 275 mg/dL 203-362 [facility] Urea nitrogen [Mass/volume] in Serum or PlasmaOrdered By: Taylor Tijerina on 01-31-2023 Urea nitrogen [Mass/Vol] 24 mg/dL 7-25 [facility] WBC Auto (Bld) [#/Vol]Ordere d By: Taylor Tijerina on 01-31-2023 WBC (Bld) [#/Vol] 6.9 10*3/uL 3.8-11.6 [facility] Alanine aminotransferase [En zymatic activity/volume] in Serum or PlasmaOrdered By: Taylor Tijerina on 11-01-2022 ALT [Catalytic activity/Vol] 18 U/L 7-52 [facility] Albumin [Mass/volume] in Ser um or Plasma by Bromocresol green (BCG) dye binding methoOrdered By: Taylor Tijerina on 11-01-2022 Albumin BCG dye [Mass/Vol] 3.8 g/dL 3.5-5.7 [facility] Alkaline phosphatase [Enzyma tic activity/volume] in Serum or PlasmaOrdered By: Taylor Tijerina on 11-01-2022 ALP [Catalytic activity/Vol] 38 U/L 34-104 [facility] Aspartate aminotransferase [ Enzymatic activity/volume] in Serum or PlasmaOrdered By: Taylor Tijerina on 11-01-2022 AST [Catalytic activity/Vol] 22 U/L 13-39 [facility] Basophils Auto (Bld) [#/Vol] Ordered By: Taylor Tijerina on 11-01-2022 Basophils (Bld) [#/Vol] 0.1 10*3/uL 0.0-0.2 [facility] Basophils/100 WBC Auto (Bld) Ordered By: Taylor Tijerina on 11-01-2022 Basophils/100 WBC (Bld) 1.3 % . [facility] Bilirubin.total [Mass/volume ] in Serum or PlasmaOrdered By: Taylor Tijerina on 11-01-2022 Bilirubin [Mass/Vol] 0.4 mg/dL 0.3-1.0 [facility] Calcium [Mass/volume] in Ser um or PlasmaOrdered By: Taylor Tijerina on 11-01-2022 Calcium [Mass/Vol] 9.2 mg/dL 8.6-10.3 [facility] Carbon dioxide, total [Moles /volume] in Serum or PlasmaOrdered By: Taylor Tijerina on 11-01-2022 CO2 [Moles/Vol] 28.9 mmol/L 21.0-31.0 [facility] Chloride [Moles/volume] in S ramiro or PlasmaOrdered By: Taylor Tijerina on 11-01-2022 Chloride [Moles/Vol] 100 mmol/L 98-107 [facility] Creatinine [Mass/volume] in Serum or PlasmaOrdered By: Taylor Tijerina on 11-01-2022 Creatinine [Mass/Vol] 0.76 mg/dL 0.60-1.20 [facility] Eosinophils Auto (Bld) [#/Vo l]Ordered By: Taylor Tijerina on 11-01-2022 Eosinophils (Bld) [#/Vol] 0.1 10*3/uL 0.0-0.45 [facility] Eosinophils/100 WBC Auto (Bl d)Ordered By: Taylor Tijerina on 11-01-2022 Eosinophils/100 WBC (Bld) 1.7 % . [facility] Erythrocyte distribution wid th Auto (RBC) [Ratio]Ordered By: Taylor Tijerina on 11-01-2022 Erythrocyte distribution width (RBC) [Ratio] 13.6 % 11.9-15.3 [facility] Ferritin [Mass/volume] in Se rum or PlasmaOrdered By: Taylor Tijerina on 11-01-2022 Ferritin [Mass/Vol] 90.9 ng/mL 11.0-306.8 [facility] Globulin Calc (S) [Mass/Vol] Ordered By: Taylor Tijerina on 11-01-2022 Globulin (S) [Mass/Vol] 2.2 g/dL [facility] Glucose [Mass/volume] in Ser um or PlasmaOrdered By: Taylor Tijerina on 11-01-2022 Glucose [Mass/Vol] 118 mg/dL 70-100 [facility] Comment on above: ADA recommended refe rence rangeRandom Glucose Reference Range is dependent on time and content of last meal. Glucose of more than 200 mg/dL in a nonstressed, ambulatory subject supports the diagnosis of Diabetes Mellitus. Hematocrit Auto (Bld) [Volum e fraction]Ordered By: Taylor Tijerina on 11-01-2022 Hematocrit (Bld) [Volume fraction] 37.4 % 34.0-46.4 [facility] Hemoglobin [Mass/volume] in BloodOrdered By: Taylor Tijerina on 11-01-2022 Hemoglobin (Bld) [Mass/Vol] 13.0 g/dL 11.8-15.4 [facility] Iron [Mass/volume] in Serum or PlasmaOrdered By: Taylor Tijerina on 11-01-2022 Iron [Mass/Vol] 94 ug/dL 50-212 [facility] Iron binding capacity [Mass/ volume] in Serum or PlasmaOrdered By: Taylor Tijerina on 11-01-2022 Iron binding capacity [Mass/Vol] 372 ug/dL 255-450 [facility] Iron saturation [Mass Fracti on] in Serum or PlasmaOrdered By: Taylor Tijerina on 11-01-2022 Iron saturation [Mass fraction] 25.3 % 20-50 [facility] Leukocytes [#/volume] correc shara for nucleated erythrocytes in Blood by Automated counOrdered By: Taylor Tijerina on 11-01-2022 WBC corrected for nucl RBC Auto (Bld) [#/Vol] 6.3 10*3/uL 3.8-11.6 [facility] Lymphocytes Auto (Bld) [#/Vo l]Ordered By: Taylor Tijerina on 11-01-2022 Lymphocytes (Bld) [#/Vol] 1.7 10*3/uL 1.00-4.8 [facility] Lymphocytes/100 WBC Auto (Bl d)Ordered By: Taylor Tijerina on 11-01-2022 Lymphocytes/100 WBC (Bld) 26.9 % . [facility] MCH Auto (RBC) [Entitic mass ]Ordered By: Taylor Tijerina on 11-01-2022 MCH (RBC) [Entitic mass] 33.1 pg 24.7-34.3 [facility] MCHC Auto (RBC) [Mass/Vol]Or dered By: Taylor Tijerina on 11-01-2022 MCHC (RBC) [Mass/Vol] 34.7 g/dL 32.0-35.0 [facility] MCV Auto (RBC) [Entitic vol] Ordered By: Taylor Tijerina on 11-01-2022 MCV (RBC) [Entitic vol] 95.6 fL 80-100 [facility] Monocytes Auto (Bld) [#/Vol] Ordered By: Taylor Tijerina on 11-01-2022 Monocytes (Bld) [#/Vol] 0.6 10*3/uL 0.0-0.8 [facility] Monocytes/100 WBC Auto (Bld) Ordered By: Taylor Tijerina on 11-01-2022 Monocytes/100 WBC (Bld) 9.5 % . [facility] Neutrophils Auto (Bld) [#/Vo l]Ordered By: Taylor Tijerina on 11-01-2022 Neutrophils (Bld) [#/Vol] 3.8 10*3/uL 1.8-7.7 [facility] Neutrophils/100 WBC Auto (Bl d)Ordered By: Taylor Tijerina on 11-01-2022 Neutrophils/100 WBC (Bld) 60.6 % . [facility] No Panel InformationOrdered By: Taylor Tijerina on 11-01-2022 Estimated GFR (CKD-EPI) > 60.0 mL/Min [facility] Creatinine Clearance (Chem 57.26 [facility] Nucleated erythrocytes [Pres ence] in Blood by Automated countOrdered By: Taylor Tijerina on 11-01-2022 Nucleated RBC Auto Ql (Bld) 0.2 /100{WBC} 0-0.5 [facility] Platelet mean volume Auto (B ld) [Entitic vol]Ordered By: Taylor Tijerina on 11-01-2022 Platelet mean volume (Bld) [Entitic vol] 7.1 fL 6.3-10.7 [facility] Platelets Auto (Bld) [#/Vol] Ordered By: Taylor Tijerina on 11-01-2022 Platelets (Bld) [#/Vol] 266 10*3/uL 150-450 [facility] Potassium [Moles/volume] in Serum or PlasmaOrdered By: Taylor Tijerina on 11-01-2022 Potassium [Moles/Vol] 4.3 mmol/L 3.5-5.1 [facility] Protein [Mass/volume] in Ser um or PlasmaOrdered By: Taylor Tijerina on 11-01-2022 Protein [Mass/Vol] 6.0 g/dL 6.4-8.9 [facility] RBC Auto (Bld) [#/Vol]Ordere d By: Taylor Tijerina on 11-01-2022 RBC (Bld) [#/Vol] 3.92 10*6/uL 3.60-5.00 [facility] Serum or plasma albumin/glob ulin mass ratioOrdered By: Taylor Tijerina on 11-01-2022 Albumin/Globulin [Mass ratio] 1.7 {ratio} [facility] Serum or plasma anion gap de terminationOrdered By: Taylor Tijerina on 11-01-2022 Anion gap [Moles/Vol] 11.4 mmol/L 6.0-15.0 [facility] Sodium [Moles/volume] in Ser um or PlasmaOrdered By: Taylor Tijerina on 11-01-2022 Sodium [Moles/Vol] 136 mmol/L 136-145 [facility] Transferrin [Mass/volume] in Serum or PlasmaOrdered By: Taylor Tijerina on 11-01-2022 Transferrin [Mass/Vol] 266 mg/dL 203-362 [facility] Urea nitrogen [Mass/volume] in Serum or PlasmaOrdered By: Taylor Tijerina on 11-01-2022 Urea nitrogen [Mass/Vol] 22 mg/dL 7-25 [facility] WBC Auto (Bld) [#/Vol]Ordere d By: Taylor Tijerina on 11-01-2022 WBC (Bld) [#/Vol] 6.3 10*3/uL 3.8-11.6 [facility] Basophils Auto (Bld) [#/Vol] Ordered By: Emily Degroot on 07-22-2022 Basophils (Bld) [#/Vol] 0.0 10*3/uL 0.0-0.2 [facility] Basophils/100 WBC Auto (Bld) Ordered By: Emily Degroot on 07-22-2022 Basophils/100 WBC (Bld) 0.5 % . [facility] Eosinophils Auto (Bld) [#/Vo l]Ordered By: Emily Degroot on 07-22-2022 Eosinophils (Bld) [#/Vol] 0.1 10*3/uL 0.0-0.45 [facility] Eosinophils/100 WBC Auto (Bl d)Ordered By: Emily Degroot on 07-22-2022 Eosinophils/100 WBC (Bld) 1.8 % . [facility] Erythrocyte distribution wid th Auto (RBC) [Ratio]Ordered By: Emily Degroot on 07-22-2022 Erythrocyte distribution width (RBC) [Ratio] 15.1 % 11.9-15.3 [facility] Ferritin [Mass/volume] in Se rum or PlasmaOrdered By: Emily Degroot on 07-22-2022 Ferritin [Mass/Vol] 27.4 ng/mL 11.0-306.8 [facility] Hematocrit Auto (Bld) [Volum e fraction]Ordered By: Emily Degroot on 07-22-2022 Hematocrit (Bld) [Volume fraction] 39.5 % 34.0-46.4 [facility] Hemoglobin [Mass/volume] in BloodOrdered By: Emily Degroot on 07-22-2022 Hemoglobin (Bld) [Mass/Vol] 13.5 g/dL 11.8-15.4 [facility] Iron [Mass/volume] in Serum or PlasmaOrdered By: Emily Degroot on 07-22-2022 Iron [Mass/Vol] 75 ug/dL 50-212 [facility] Iron binding capacity [Mass/ volume] in Serum or PlasmaOrdered By: Emily Degroot on 07-22-2022 Iron binding capacity [Mass/Vol] 486 ug/dL 255-450 [facility] Iron saturation [Mass Fracti on] in Serum or PlasmaOrdered By: Emily Degroot on 07-22-2022 Iron saturation [Mass fraction] 15.4 % 20-50 [facility] Leukocytes [#/volume] correc shara for nucleated erythrocytes in Blood by Automated counOrdered By: Emily Degroot on 07-22-2022 WBC corrected for nucl RBC Auto (Bld) [#/Vol] 6.2 10*3/uL 3.8-11.6 [facility] Lymphocytes Auto (Bld) [#/Vo l]Ordered By: Emily Degroot on 07-22-2022 Lymphocytes (Bld) [#/Vol] 1.5 10*3/uL 1.00-4.8 [facility] Lymphocytes/100 WBC Auto (Bl d)Ordered By: Emily Degroot on 07-22-2022 Lymphocytes/100 WBC (Bld) 24.3 % . [facility] MCH Auto (RBC) [Entitic mass ]Ordered By: Emily Degroot on 07-22-2022 MCH (RBC) [Entitic mass] 31.7 pg 24.7-34.3 [facility] MCHC Auto (RBC) [Mass/Vol]Or dered By: Emily Degroot on 07-22-2022 MCHC (RBC) [Mass/Vol] 34.1 g/dL 32.0-35.0 [facility] MCV Auto (RBC) [Entitic vol] Ordered By: Emily Degroot on 07-22-2022 MCV (RBC) [Entitic vol] 92.9 fL 80-100 [facility] Monocytes Auto (Bld) [#/Vol] Ordered By: Emily Degroot on 07-22-2022 Monocytes (Bld) [#/Vol] 0.5 10*3/uL 0.0-0.8 [facility] Monocytes/100 WBC Auto (Bld) Ordered By: Emily Degroot on 07-22-2022 Monocytes/100 WBC (Bld) 7.9 % . [facility] Neutrophils Auto (Bld) [#/Vo l]Ordered By: Emily Degroot on 07-22-2022 Neutrophils (Bld) [#/Vol] 4.1 10*3/uL 1.8-7.7 [facility] Neutrophils/100 WBC Auto (Bl d)Ordered By: Emily Degroot on 07-22-2022 Neutrophils/100 WBC (Bld) 65.5 % . [facility] Nucleated erythrocytes [Pres ence] in Blood by Automated countOrdered By: Emily Degroot on 07-22-2022 Nucleated RBC Auto Ql (Bld) 0.1 /100{WBC} 0-0.5 [facility] Platelet mean volume Auto (B ld) [Entitic vol]Ordered By: Emily Degroot on 07-22-2022 Platelet mean volume (Bld) [Entitic vol] 7.1 fL 6.3-10.7 [facility] Platelets Auto (Bld) [#/Vol] Ordered By: Emily Degroot on 07-22-2022 Platelets (Bld) [#/Vol] 308 10*3/uL 150-450 [facility] RBC Auto (Bld) [#/Vol]Ordere d By: Emily Degroot on 07-22-2022 RBC (Bld) [#/Vol] 4.25 10*6/uL 3.60-5.00 [facility] Transferrin [Mass/volume] in Serum or PlasmaOrdered By: Emily Degroot on 07-22-2022 Transferrin [Mass/Vol] 347 mg/dL 203-362 [facility] WBC Auto (Bld) [#/Vol]Ordere d By: Emily Degroot on 07-22-2022 WBC (Bld) [#/Vol] 6.2 10*3/uL 3.8-11.6 [facility] Anisocytosis LM Ql (Bld)Orde red By: Marisabel Noel on 04-23-2022 Anisocytosis Ql (Bld) Moderate [facility] Basophils Auto (Bld) [#/Vol] Ordered By: Marisabel Noel on 04-23-2022 Basophils (Bld) [#/Vol] 0.1 10*3/uL 0.0-0.2 [facility] Basophils/100 WBC Auto (Bld) Ordered By: Marisabel Noel on 04-23-2022 Basophils/100 WBC (Bld) 0.8 % . [facility] CT biopsyOrdered By: Marisabel foss on 04-23-2022 Transferrin [Mass/Vol] 309 mg/dL 180-380 [facility] Eosinophils Auto (Bld) [#/Vo l]Ordered By: Marisabel Noel on 04-23-2022 Eosinophils (Bld) [#/Vol] 0.2 10*3/uL 0.0-0.45 [facility] Eosinophils/100 WBC Auto (Bl d)Ordered By: Marisabel Noel on 04-23-2022 Eosinophils/100 WBC (Bld) 3.3 % . [facility] Erythrocyte distribution wid th Auto (RBC) [Ratio]Ordered By: Marisabel Noel on 04-23-2022 Erythrocyte distribution width (RBC) [Ratio] 16.9 % 11.9-15.3 [facility] Ferritin [Mass/volume] in Se rum or PlasmaOrdered By: Marisabel Noel on 04-23-2022 Ferritin [Mass/Vol] 40.0 ng/mL 11-306.8 [facility] Hematocrit Auto (Bld) [Volum e fraction]Ordered By: Marisabel Noel on 04-23-2022 Hematocrit (Bld) [Volume fraction] 40.2 % 34.0-46.4 [facility] Hemoglobin [Mass/volume] in BloodOrdered By: Marisabel Noel on 04-23-2022 Hemoglobin (Bld) [Mass/Vol] 13.5 g/dL 11.8-15.4 [facility] Hypochromia LM Ql (Bld)Order ed By: Marisabel Noel on 04-23-2022 Hypochromia Ql (Bld) Moderate [facility] Iron [Mass/volume] in Serum or PlasmaOrdered By: Marisabel Noel on 04-23-2022 Iron [Mass/Vol] 73 ug/dL 40-150 [facility] Iron binding capacity [Mass/ volume] in Serum or PlasmaOrdered By: Marisabel Noel on 04-23-2022 Iron binding capacity [Mass/Vol] 433 ug/dL 255-450 [facility] Iron saturation [Mass Fracti on] in Serum or PlasmaOrdered By: Marisabel Noel on 04-23-2022 Iron saturation [Mass fraction] 16.0 % 20-50 [facility] Leukocytes [#/volume] correc shara for nucleated erythrocytes in Blood by Automated counOrdered By: Marisabel Noel on 04-23-2022 WBC corrected for nucl RBC Auto (Bld) [#/Vol] 7.0 10*3/uL 3.8-11.6 [facility] Lymphocytes Auto (Bld) [#/Vo l]Ordered By: Marisabel Noel on 04-23-2022 Lymphocytes (Bld) [#/Vol] 1.4 10*3/uL 1.00-4.8 [facility] Lymphocytes/100 WBC Auto (Bl d)Ordered By: Marisabel Noel on 04-23-2022 Lymphocytes/100 WBC (Bld) 20.8 % . [facility] MCH Auto (RBC) [Entitic mass ]Ordered By: Marisabel Noel on 04-23-2022 MCH (RBC) [Entitic mass] 29.8 pg 24.7-34.3 [facility] MCHC Auto (RBC) [Mass/Vol]Or dered By: Marisabel Noel on 04-23-2022 MCHC (RBC) [Mass/Vol] 33.4 g/dL 32.0-35.0 [facility] MCV Auto (RBC) [Entitic vol] Ordered By: Marisabel Noel on 04-23-2022 MCV (RBC) [Entitic vol] 89.2 fL 80-100 F [facility] Microcytes LM Ql (Bld)Ordere d By: Marisabel Noel on 04-23-2022 Microcytes Ql (Bld) [facility]light [facility] Monocytes Auto (Bld) [#/Vol] Ordered By: Marisabel Noel on 04-23-2022 Monocytes (Bld) [#/Vol] 0.5 10*3/uL 0.0-0.8 [facility] Monocytes/100 WBC Auto (Bld) Ordered By: Marisabel Noel on 04-23-2022 Monocytes/100 WBC (Bld) 6.9 % . F [facility] Neutrophils Auto (Bld) [#/Vo l]Ordered By: Marisabel Noel on 04-23-2022 Neutrophils (Bld) [#/Vol] 4.7 10*3/uL 1.8-7.7 [facility] Neutrophils/100 WBC Auto (Bl d)Ordered By: Marisabel Noel on 04-23-2022 Neutrophils/100 WBC (Bld) 68.2 % . [facility] Nucleated erythrocytes [Pres ence] in Blood by Automated countOrdered By: Marisabel Noel on 04-23-2022 Nucleated RBC Auto Ql (Bld) 0.1 /100{WBC} 0-0.5 [facility] Ovalocyte detectionOrdered B y: Marisabel Noel on 04-23-2022 Ovalocytes LM Ql (Bld) Slight [facility] Platelet adequacy [Presence] in Blood by Light microscopyOrdered By: Marisabel Noel on 04-23-2022 Platelets LM Ql (Bld) Normal Normal [facility] Platelet mean volume Auto (B ld) [Entitic vol]Ordered By: Marisabel Noel on 04-23-2022 Platelet mean volume (Bld) [Entitic vol] 6.9 fL 6.3-10.7 [facility] Platelet morphology finding [Identifier] in BloodOrdered By: Marisabel Noel on 04-23-2022 Platelet morphology finding Nom (Bld) Normal Normal [facility] Platelets Auto (Bld) [#/Vol] Ordered By: Marisabel Noel on 04-23-2022 Platelets (Bld) [#/Vol] 298 10*3/uL 150-450 [facility] RBC Auto (Bld) [#/Vol]Ordere d By: Marisabel Noel on 04-23-2022 RBC (Bld) [#/Vol] 4.51 10*6/uL 3.60-5.00 [facility] RBC morphologyOrdered By: Pablo Noel on 04-23-2022 RBC morphology finding Nom (Bld) N/A [facility] Red blood cell stomatocyte d etectionOrdered By: Marisabel Noel on 04-23-2022 Stomatocytes LM Ql (Bld) Slight [facility] WBC Auto (Bld) [#/Vol]Ordere d By: Marisabel Noel on 04-23-2022 WBC (Bld) [#/Vol] 7.0 10*3/uL 3.8-11.6 [facility] Basophils Auto (Bld) [#/Vol] Ordered By: Taylor Tijerina on 02-18-2022 Basophils (Bld) [#/Vol] N/A F [facility] Basophils/100 WBC Auto (Bld) Ordered By: Taylor Tijerina on 02-18-2022 Basophils/100 WBC (Bld) N/A [facility] Basophils/100 WBC (Bld) 1 % 0-2 F [facility] Blood anisocytosis detection Ordered By: Taylor Tijerina on 02-18-2022 Anisocytosis Ql (Bld) Marked [facility] Blood hemoglobin measurement (mass/volume)Ordered By: Taylor Tijerina on 02-18-2022 Hemoglobin (Bld) [Mass/Vol] 11.1 g/dL 11.8-15.4 [facility] Blood leukocytes automated c ount (number/volume)Ordered By: Taylor Tijerina on 02-18-2022 WBC (Bld) [#/Vol] 4.5 10*3/uL 4.5-11.[address] [facility] [address] biopsyOrdered By: Taylor Trammell on 02-18-2022 Transferrin [Mass/Vol] 297 mg/dL 180-380 [facility] Eosinophils Auto (Bld) [#/Vo l]Ordered By: Taylor Tijerina on 02-18-2022 Eosinophils (Bld) [#/Vol] N/A [facility] Eosinophils/100 WBC Auto (Bl d)Ordered By: Taylor Tijerina on 02-18-2022 Eosinophils/100 WBC (Bld) N/A [facility] Erythrocyte distribution wid th Auto (RBC) [Ratio]Ordered By: Taylor Tijerina on 02-18-2022 Erythrocyte distribution width (RBC) [Ratio] 38.8 % 11.9-15.3 [facility] Ferritin [Mass/volume] in Se rum or PlasmaOrdered By: Taylor Tijerina on 02-18-2022 Ferritin [Mass/Vol] 229.8 ng/mL 11-306.8 [facility] Hematocrit Auto (Bld) [Volum e fraction]Ordered By: Taylor Tijerina on 02-18-2022 Hematocrit (Bld) [Volume fraction] 35.2 % 34.0-46.4 [facility] Hypochromia detectionOrdered By: Taylor Tijerina on 02-18-2022 Hypochromia Ql (Bld) Marked [facility] Iron [Mass/volume] in Serum or PlasmaOrdered By: Taylor Tijerina on 02-18-2022 Iron [Mass/Vol] 116 ug/dL 40-150 [facility] Iron binding capacity [Mass/ volume] in Serum or PlasmaOrdered By: Taylor Tijerina on 02-18-2022 Iron binding capacity [Mass/Vol] 416 ug/dL 255-450 [facility] Iron saturation [Mass Fracti on] in Serum or PlasmaOrdered By: Taylor Tijerina on 02-18-2022 Iron saturation [Mass fraction] 27.0 % 20-50 [facility] Laboratory - Hematology and Cell countsOrdered By: Taylor Tijerina on 02-18-2022 Band form neutrophils/100 WBC (Bld) 2 % 0-5 [facility] Nucleated RBC/100 WBC (Bld) [Ratio] 0.1 % 0-0.5 [facility] Lymphocytes Auto (Bld) [#/Vo l]Ordered By: Taylor Tijerina on 02-18-2022 Lymphocytes (Bld) [#/Vol] N/A [facility] Lymphocytes/100 WBC Auto (Bl d)Ordered By: Taylor Tijerina on 02-18-2022 Lymphocytes/100 WBC (Bld) N/A [facility] Lymphocytes/100 WBC (Bld) 21 % 18-42 [facility] Lymphocytes/100 WBC Manual c nt (Bld)Ordered By: Taylor Tijerina on 02-18-2022 Lymphocytes/100 WBC (Bld) 2 % 0-12 [facility] MCH Auto (RBC) [Entitic mass ]Ordered By: Taylor Tijerina on 02-18-2022 MCH (RBC) [Entitic mass] 24.7 pg 24.7-34.3 [facility] MCHC Auto (RBC) [Mass/Vol]Or dered By: Taylor Tijerina on 02-18-2022 MCHC (RBC) [Mass/Vol] 31.6 g/dL 32.0-35.0 [facility] MCV Auto (RBC) [Entitic vol] Ordered By: Taylor Tijerina on 02-18-2022 MCV (RBC) [Entitic vol] 78.3 fL 80-100 F [facility] Macrocytes detectionOrdered By: Taylor Tijerina on 02-18-2022 Macrocytes Ql (Bld) Moderate [facility] Monocytes Auto (Bld) [#/Vol] Ordered By: Taylor Tijerina on 02-18-2022 Monocytes (Bld) [#/Vol] N/A F [facility] Monocytes/100 WBC Auto (Bld) Ordered By: Taylor Tijerina on 02-18-2022 Monocytes/100 WBC (Bld) N/A [facility] Monocytes/100 WBC Manual cnt (Bld)Ordered By: Taylor Tijerina on 02-18-2022 Monocytes/100 WBC (Bld) 6 % 2-11 [facility] Neutrophils Auto (Bld) [#/Vo l]Ordered By: Taylor Tijerina on 02-18-2022 Neutrophils (Bld) [#/Vol] N/A [facility] Neutrophils/100 WBC Auto (Bl d)Ordered By: Taylor Tijerina on 02-18-2022 Neutrophils/100 WBC (Bld) N/A [facility] No Panel InformationOrdered By: Taylor Tijerina on 02-18-2022 Microcytosis Slight [facility] Platelet Estimate Normal Normal [facility] Platelet Morphology Comment Normal Normal [facility] Platelet mean volume Auto (B ld) [Entitic vol]Ordered By: Taylor Tijerina on 02-18-2022 Platelet mean volume (Bld) [Entitic vol] 8.4 fL 6.3-10.7 [facility] Platelets Auto (Bld) [#/Vol] Ordered By: Taylor Tijerina on 02-18-2022 Platelets (Bld) [#/Vol] 363 10*3/uL 150-450 [facility] RBC Auto (Bld) [#/Vol]Ordere d By: Taylor Tijerina on 02-18-2022 RBC (Bld) [#/Vol] 4.49 10*6/uL 3.60-5.00 [facility] RBC morphologyOrdered By: Ana Laura ortega Lilliana on 02-18-2022 RBC morphology finding Nom (Bld) N/A [facility] Red blood cell stomatocyte d etectionOrdered By: Taylor Tijerina on 02-18-2022 Stomatocytes LM Ql (Bld) Slight [facility] Segmented neutrophils/100 WB C Manual cnt (Bld)Ordered By: Taylor Peñaedwar on 02-18-2022 Segmented neutrophils/100 WBC (Bld) 68 % 50-70 [facility] Progress Noteson 02-17-2022 Bag Inspector Authentication Interface Message Text EMERGENCY TRIAGE, TREAT AND TRANSPORT (ET3) DOCUMENTATION OF TELEHEALTH VISIT Date / Time: 02/17/2022916 Name: Nuvia Martin : 1945 SSN: [id number] EMS Agency: [facility] [x] Verbal consent obtained [] [...] Completed by: Cassidy Julio MD Normal [facility] [employer] [facility] CT FACIAL BONES WO CONon CT [...] by: CARSON VASQUEZ Date: 2022-01-14 02:14 Normal [facility] XR CHEST 1 Von 01-14-2022 XR CHEST [...] JANET SCHWARTZ Date: 2022-01-14 03:18 Normal [facility] Albumin [Mass/volume] in Ser um or PlasmaOrdered By: Taylor Tijerina on 01-12-2022 Albumin [Mass/Vol] 3.1 g/dL 2.9-4.4 [facility] Basophils Auto (Bld) [#/Vol] Ordered By: Taylor Tijerina on 01-12-2022 Basophils (Bld) [#/Vol] 0.1 10*3/uL 0.0-0.2 [facility] Basophils/100 WBC Auto (Bld) Ordered By: Taylor Tijerina on 01-12-2022 Basophils/100 WBC (Bld) 0.9 % . F [facility] Blood anisocytosis detection Ordered By: Taylor Tijerina on 01-12-2022 Anisocytosis Ql (Bld) Moderate [facility] Blood hemoglobin measurement (mass/volume)Ordered By: Taylor Tijerina on 01-12-2022 Hemoglobin (Bld) [Mass/Vol] 8.2 g/dL 11.8-15.4 [facility] Blood leukocytes automated c ount (number/volume)Ordered By: Taylor Tijerina on 01-12-2022 WBC (Bld) [#/Vol] 6.0 10*3/uL 4.5-11.0 [facility] Blood polychromasia detectio n by light microscopyOrdered By: Taylor Tijerina on 01-12-2022 Polychromasia LM Ql (Bld) Slight [facility] Body fluid albumin measureme nt (mass/volume)Ordered By: Taylor Tijerina on 01-12-2022 Albumin (Body fld) [Mass/Vol] 2.9 g/dL 3.2-5.[address] [facility] [address] biopsyOrdered By: Taylor Trammell on 01-12-2022 Transferrin [Mass/Vol] 479 mg/dL 180-380 [facility] Creatinine and Glomerular fi ltration rate.predicted panel (S/P/Bld)Ordered By: Taylor Tijerina on 01-12-2022 Creatinine [Mass/Vol] 0.76 mg/dL 0.44-1.03 [facility] Eosinophils Auto (Bld) [#/Vo l]Ordered By: Taylor Tijerina on 01-12-2022 Eosinophils (Bld) [#/Vol] 0.1 10*3/uL 0.0-0.45 [facility] Eosinophils/100 WBC Auto (Bl d)Ordered By: Taylor Tijerina on 01-12-2022 Eosinophils/100 WBC (Bld) 1.3 % . [facility] Erythrocyte distribution wid th Auto (RBC) [Ratio]Ordered By: Taylor Tijerina on 01-12-2022 Erythrocyte distribution width (RBC) [Ratio] 22.4 % 11.9-15.3 [facility] Erythrocyte sedimentation ra te by Photometric methodOrdered By: Taylor Tijerina on 01-12-2022 ESR Photometric method (Bld) [Velocity] 21 mm/hr 0-29 [facility] Estimated glomerular filtrat ion rate (GFR) non- AmericanOrdered By: Taylor Tijerina on 01-12-2022 GFR/1.73 sq M.predicted among non-blacks MDRD (S/P/Bld) [Vol rate/Area] > 60 mL/Min [facility] Ferritin [Mass/volume] in Se rum or PlasmaOrdered By: Taylor Tijerina on 01-12-2022 Ferritin [Mass/Vol] 10.8 ng/mL 11-306.8 [facility] Folate [Mass/volume] in Seru m or PlasmaOrdered By: Taylor Tijerina on 01-12-2022 Folate [Mass/Vol] ng/mL >5.9 [facility] Comment on above: Folate reference ran ge: >5.9 ng/ml The WHO technical consultation on folate and vitamin b12 deficiencies has determined that folate concentrations less than 4 ng/ml are considered deficient. Folate reference ran ge: >5.9 ng/mlThe WHO technical consultation on folate and vitamin [id number] has determined that folate concentrations lessthan 4 ng/ml are considered deficient. Globulin Calc (S) [Mass/Vol] Ordered By: Taylor Tijerina on 01-12-2022 Globulin (S) [Mass/Vol] 3.1 g/dL F [facility] Hematocrit Auto (Bld) [Volum e fraction]Ordered By: Taylor Tijerina on 01-12-2022 Hematocrit (Bld) [Volume fraction] 27.4 % 34.0-46.4 [facility] Hypochromia detectionOrdered By: Taylor Tijerina on 01-12-2022 Hypochromia Ql (Bld) Moderate [facility] IgA [Mass/volume] in Serum o r PlasmaOrdered By: Taylor Tijerina on 01-12-2022 IgA [Mass/Vol] 206 mg/dL 64-422 [facility] IgG [Mass/volume] in Serum o r PlasmaOrdered By: Taylor Tijerina on 01-12-2022 IgG [Mass/Vol] 1070 mg/dL 586-1602 [facility] IgM [Mass/volume] in Serum o r PlasmaOrdered By: Taylor Tijerina on 01-12-2022 IgM [Mass/Vol] 166 mg/dL 26-217 [facility] Comment on above: Performed at: [employer] [place] [address], [place] [id number] District Manager: Carlos Mcintyre PhD, Phone: [phone] Performed at: [facility], [place] [id number] Director: Carlos Mcintyre PhD, Phone: [phone] Immunoglobulin light chains. kappa.free [Mass/volume] in SerumOrdered By: Taylor Tijerina on 01-12-2022 Immunoglobulin light chains.kappa.free (S) [Mass/Vol] 44.4 mg/L 3.3-19.4 [facility] Immunoglobulin light chains. kappa.free/Immunoglobulin light chains.lambda.free [MassOrdered By: Taylor Tijerina on 01-12-2022 Immunoglobulin light chains.kappa.free/Immun oglobulin light chains.lambda.free (S) [Mass ratio] 1.60 0.26-1.65 [facility] Comment on above: Performed at: [facility] [address] [id number] District Manager: Carlos Mcintyre PhD, Phone: [phone] Performed at: [employer] [address] [id number] Director: Carlos Mcintyre PhD, Phone: [phone] Immunoglobulin light chains. lambda.free [Mass/volume] in Serum or PlasmaOrdered By: Taylor Tijerina on 01-12-2022 Immunoglobulin light chains.lambda.free [Mass/Vol] 27.7 mg/L 5.7-26.3 [facility] Iron [Mass/volume] in Serum or PlasmaOrdered By: Taylor Tijerina on 01-12-2022 Iron [Mass/Vol] 10 ug/dL 40-150 [facility] Iron binding capacity [Mass/ volume] in Serum or PlasmaOrdered By: Taylor Tijerina on 01-12-2022 Iron binding capacity [Mass/Vol] 671 ug/dL 255-450 [facility] Iron saturation [Mass Fracti on] in Serum or PlasmaOrdered By: Taylor Tijerina on 01-12-2022 Iron saturation [Mass fraction] 1.0 % 20-50 [facility] Laboratory - Chemistry and C hemistry - challengeOrdered By: Taylor Tijerina on 01-12-2022 Cobalamin (Vitamin B12) [Mass/Vol] 700 pg/mL 180-914 [facility] - Hematology and Cell countsOrdered By: Taylor Tijerina on 01-12-2022 Nucleated RBC/100 WBC (Bld) [Ratio] 0.2 % 0-0.5 [facility] Lymphocytes Auto (Bld) [#/Vo l]Ordered By: Taylor Tijerina on 01-12-2022 Lymphocytes (Bld) [#/Vol] 1.1 10*3/uL 1.00-4.8 [facility] Lymphocytes/100 WBC Auto (Bl d)Ordered By: Taylor Tijerina on 01-12-2022 Lymphocytes/100 WBC (Bld) 17.7 % . [facility] Lymphocytes/100 WBC (Bld) 25 % 18-42 [facility] MCH Auto (RBC) [Entitic mass ]Ordered By: Taylor Tijerina on 01-12-2022 MCH (RBC) [Entitic mass] 18.6 pg 24.7-34.3 [facility] MCHC Auto (RBC) [Mass/Vol]Or dered By: Taylor Tijerina on 01-12-2022 MCHC (RBC) [Mass/Vol] 29.8 g/dL 32.0-35.0 [facility] MCV Auto (RBC) [Entitic vol] Ordered By: Taylor Tijerina on 01-12-2022 MCV (RBC) [Entitic vol] 62.5 fL 80-100 F [facility] Macrocytes detectionOrdered By: Taylor Tijerina on 01-12-2022 Macrocytes Ql (Bld) Slight [facility] Monocyte %Ordered By: Taylor hogan on 01-12-2022 Monocytes/100 WBC (Bld) 1 % 1-3 F [facility] Monocytes Auto (Bld) [#/Vol] Ordered By: Taylor Tijerina on 01-12-2022 Monocytes (Bld) [#/Vol] 0.5 10*3/uL 0.0-0.8 [facility] Monocytes/100 WBC Auto (Bld) Ordered By: Taylor Tijerina on 01-12-2022 Monocytes/100 WBC (Bld) 8.4 % . F [facility] Monocytes/100 WBC Manual cnt (Bld)Ordered By: Taylor Tijerina on 01-12-2022 Monocytes/100 WBC (Bld) 6 % 2-11 [facility] Neutrophils Auto (Bld) [#/Vo l]Ordered By: Taylor Lilliana on 01-12-2022 Neutrophils (Bld) [#/Vol] 4.3 10*3/uL 1.8-7.7 [facility] Neutrophils/100 WBC Auto (Bl d)Ordered By: Taylor Tijerina on 01-12-2022 Neutrophils/100 WBC (Bld) 71.7 % . [facility] No Panel InformationOrdered By: Taylor Tijerina on 01-12-2022 Absolute Reticulocyte Count 0.213 10*6/uL 0.024-0.084 [facility] Estimated GFR () > 60 mL/Min [facility] Comment on above: GFR estimated refere nce range: According to KDOQI guidelines, <60 ml/min/1.73m2 is sufficient to diagnose a patient with chronic kidney disease. Microcytosis Slight [facility] Percent Reticulocyte Count 4.9 % 0.5-1.5 [facility] Creatinine Clearance (Chem 60.82 [facility] Platelet Estimate Normal Normal [facility] Platelet Morphology Comment Normal Normal [facility] Protein Electrophoresis M-Brooks Comment: g/dL Not Observed [facility] Comment on above: SPE shows asymmetric al gamma. Protein Electrophoresis Note See comment . [facility] Comment on above: Protein electrophore sis scan will follow via computer, mail, or equal opportunity officer delivery. Performed at: [employer] [id number] District Manager: Carlos Mcintyre PhD, Phone: [phone] Protein electrophore sis scan will follow via computer,mail, or equal opportunity officer delivery.Performed at: [employer] [id number] Director: Carlos Mcintyre PhD, Phone: [phone] Serum Immunofixation Comment: . [facility] Comment on above: Presence of monoclon [...] volume (Bld) [Entitic vol] 8.4 fL 6.3-10.7 [facility] Platelets Auto (Bld) [#/Vol] Ordered By: Taylor Tijerina on 01-12-2022 Platelets (Bld) [#/Vol] 386 10*3/uL 150-450 [facility] Protein [Mass/volume] in Ser um or PlasmaOrdered By: Taylor Tijerina on 01-12-2022 Protein [Mass/Vol] 6.0 g/dL 6.1-7.9 [facility] Protein [Mass/Vol] 6.4 g/dL 6.0-8.5 [facility] RBC Auto (Bld) [#/Vol]Ordere d By: Taylor Tijerina on 01-12-2022 RBC (Bld) [#/Vol] 4.38 10*6/uL 3.60-5.00 [facility] RBC morphologyOrdered By: Ana Laura Tijerina on 01-12-2022 RBC morphology finding Nom (Bld) N/A [facility] Segmented neutrophils/100 WB C Manual cnt (Bld)Ordered By: Taylor Tijerina on 01-12-2022 Segmented neutrophils/100 WBC (Bld) 68 % 50-70 [facility] Serum globulin measurement ( mass/volume)Ordered By: Taylor Tijerina on 01-12-2022 Globulin (S) [Mass/Vol] 3.3 g/dL 2.2-3.9 [facility] Serum or plasma alanine terry otransferase measurement without P-5'-P (enzymatic activiOrdered By: Taylor Tijerina on 01-12-2022 ALT No additional P-5'-P [Catalytic activity/Vol] 25 U/L 10-60 [facility] Serum or plasma albumin/glob ulin mass ratioOrdered By: Taylor Tijerina on 01-12-2022 Albumin/Globulin [Mass ratio] 0.9 {ratio} 0.7-1.7 [facility] Serum or plasma alkaline ariella sphatase measurement (enzymatic activity/volume)Ordered By: Taylor Tijerina on 01-12-2022 ALP [Catalytic activity/Vol] 52 U/L 32-92 [facility] Serum or plasma alpha 1 glob ulin measurement by electrophoresis (mass/volume)Ordered By: Taylor Lilliana on 01-12-2022 Alpha 1 globulin Elph [Mass/Vol] 0.3 g/dL 0.0-0.4 [facility] Serum or plasma alpha 2 glob ulin measurement by electrophoresis (mass/volume)Ordered By: Taylor Tijerina on 01-12-2022 Alpha 2 globulin Elph [Mass/Vol] 0.8 g/dL 0.4-1.0 [facility] Serum or plasma anion gap de terminationOrdered By: Taylor Tijerina on 01-12-2022 Anion gap [Moles/Vol] 16.3 mmol/L 6.0-15.0 [facility] Serum or plasma aspartate am inotransferase measurement (enzymatic activity/volume)Ordered By: Taylor Tijerina on 01-12-2022 AST [Catalytic activity/Vol] 42 U/L 10-42 [facility] Serum or plasma beta globuli n measurement by electrophoresis (mass/volume)Ordered By: Taylor Tijerina on 01-12-2022 Beta globulin Elph [Mass/Vol] 1.1 g/dL 0.7-1.3 [facility] Serum or plasma calcium jake urement (mass/volume)Ordered By: Taylor Tijerina on 01-12-2022 Calcium [Mass/Vol] 8.8 mg/dL 8.2-10.2 [facility] Serum or plasma chloride jie surement (moles/volume)Ordered By: Taylor Tijerina on 01-12-2022 Chloride [Moles/Vol] 84 mmol/L 95-114 [facility] Serum or plasma erythropoiet in (EPO) measurement (units/volume)Ordered By: Taylor Tijerina on 01-12-2022 Erythropoietin (EPO) Qn 745.9 mIU/mL 2.6-18.5 [facility] Comment on above: [employer] 800 Immunoassay System Values obtained with different assay methods or kits cannot be used interchangeably. Results cannot be interpreted as absolute evidence of the presence or absence of malignant disease. Performed at: [address] [id number] District Manager: Carlos Mcintyre PhD, Phone: [phone] [employer] 800 Immunoassay SystemValues obtained with different assay methods or kits cannotbe used interchangeably. Results cannot be interpreted asabsolute evidence of the presence or absence of malignantdisease.Performed at: [facility], [place] [id number] Director: Carlos Mcintyre PhD, Phone: [phone] Serum or plasma gamma globul in measurement by electrophoresis (mass/volume)Ordered By: Taylor Tijerina on 01-12-2022 Gamma globulin Elph [Mass/Vol] 1.1 g/dL 0.4-1.8 [facility] Serum or plasma glucose jake urement (mass/volume)Ordered By: Taylor Tijerina on 01-12-2022 Glucose [Mass/Vol] 106 mg/dL 70-100 [facility] Comment on above: ADA recommended refe [...] on 01-12-2022 Potassium [Moles/Vol] 4.0 mmol/L 3.5-5.1 [facility] Serum or plasma sodium measu rement (moles/volume)Ordered By: Taylor Tijerina on 01-12-2022 Sodium [Moles/Vol] 125 mmol/L 136-146 [facility] Serum or plasma total biliru bin measurement (mass/volume)Ordered By: Taylor Tijerina on 01-12-2022 Bilirubin [Mass/Vol] 1.0 mg/dL 0.3-1.2 [facility] Serum or plasma total carbon dioxide measurement (moles/volume)Ordered By: Taylor Tijerina on 01-12-2022 CO2 [Moles/Vol] 28.7 mmol/L 22.0-30.0 [facility] Serum or plasma urea nitroge n measurement (mass/volume)Ordered By: Taylor Lilliana on 01-12-2022 Urea nitrogen [Mass/Vol] 9 mg/dL 02-05 [facility] BNPon 11-24-2021 Natriuretic peptide B (Bld) [Mass/Vol] 591.0 pg/mL Normal <=900.0 [facility] Comment on above: Performed By: #### C MP, BNP #### [facility] [address] [address] [address] Good Montiel CBC AUTO DIFFon 11-24-2021 BASO # 0.1 103/ul Normal 0.0-0.1 [facility] Comment on above: Performed By: #### C TIFFANY, CMADM #### [facility] [address] [address] [address] Good Montiel Basophils/100 WBC (Bld) 0.7 % Normal 0.2-2.0 [facility] Comment on above: Performed By: #### C MP, CMADM #### [facility] [address] [address] [address] Good Montiel EO # 0.2 103/ul Normal 0.0-0.7 [facility] Comment on above: Performed By: #### C MP, CMADM #### [facility] [address] [address] [address] Good Montiel Eosinophils/100 WBC (Bld) 2.4 % Normal 0.9-7.0 [facility] Comment on above: Performed By: #### C MP, CMADM #### [facility] [address] [address] [address] Good Montiel Erythrocyte distribution width (RBC) [Ratio] 19.1 % Critically high 11.0-15.0 [facility] Comment on above: Performed By: #### C MP, CMADM #### [facility] [address] [place] [address] Dr. Good Montiel Hematocrit (Bld) [Volume fraction] 25.5 % Critically low 36.0-48.0 [facility] Comment on above: Performed By: #### C MP, CMADM #### [facility] [address] [address] [address] Good Montiel Hemoglobin (Bld) [Mass/Vol] 7.4 g/dL Critically low 12.0-16.0 [facility] Comment on above: Performed By: #### C MP, CMADM #### [facility] [address] [address] [address] Good Montiel IG # 0.05 10e3/ul Critically high 0.00-0.03 [facility] Comment on above: Performed By: #### C MP, CMADM #### [facility] [address] [address] [address] Good Montiel IG % 0.6 % Critically high 0.0-0.5 [facility] Comment on above: Performed By: #### C MP, CMADM #### [facility] [address] [address] [address] Good Montiel LYMPH # 1.7 103/ul Normal 1.2-3.8 [facility] Comment on above: Performed By: #### C MP, CMADM #### [facility] [address] [place] [address] Dr. Good Montiel Lymphocytes/100 WBC (Bld) 20.6 % Normal 20.5-60.0 [facility] Comment on above: Performed By: #### C MP, CMADM #### [facility] [address] [address] [address] Good Montiel MANUAL DIFF REQ NO Normal [facility] Comment on above: Performed By: #### C MP, CMADM #### [facility] [address] [address] [address] Good Montiel MCH (RBC) [Entitic mass] 18.9 pg Critically low 26.7-34.0 [facility] Comment on above: Performed By: #### C MP, CMADM #### [facility] [address] [place] [address] Dr. Good Montiel MCHC (RBC) [Mass/Vol] 29.0 g/dL Critically low 29.9-35.2 [facility] Comment on above: Performed By: #### C MP, CMADM #### [facility] [address] [place] [address] Dr. Good Montiel MCV (RBC) [Entitic vol] 65.2 fL Critically low 81.0-99. 0 [facility] Comment on above: Performed By: #### C MP, CMADM #### [facility] [address] [place] [address] Dr. Good Montiel MONO # 0.8 103/ul Normal 0.3-0.8 [facility] Comment on above: Performed By: #### C TIFFANY, CMADM #### [facility] [address] [place] [address] Dr. Good Montiel Monocytes/100 WBC (Bld) 9.4 % Normal 1.7-12.0 [facility] Comment on above: Performed By: #### C MP, CMADM #### [facility] [address] [place] [address] Dr. Good Montiel NEUT # 5.5 103/ul Normal 1.4-6.5 [facility] Comment on above: Performed By: #### C TIFFANY, CMADM #### [facility] [address] [place] [address] Dr. Good Montiel Neutrophils/100 WBC (Bld) 66.3 % Normal 43.0-75.0 [facility] Comment on above: Performed By: #### C MP, CMADM #### [facility] [address] [place] [address] Dr. Good Montiel Platelet mean volume (Bld) [Entitic vol] 9.1 fL Critically low 9.5-13.5 [facility] Comment on above: Performed By: #### C MP, CMADM #### [facility] [address] [place] [address] Dr. Good Montiel PLT 431 103/ul Normal 150-450 [facility] Comment on above: Performed By: #### C MP, CMADM #### [facility] [address] [place] [address] Dr. Good Montiel RBC 3.91 106/ul Critically low 4.20-5.40 [facility] Comment on above: Performed By: #### C MP, CMADM #### [facility] [address] [address] [address] Good Montiel WBC 8.3 103/ul Normal 4.0-11.0 [facility] Comment on above: Performed By: #### C TIFFANY, CMADM #### [facility] [address] [address] [address] Good Montiel Covid-19 PCR ([facility]on 11-13 SARS-CoV-2 (COVID-19) RNA FELECIA+probe Ql (Unsp spec) Not detected Normal NOT DETECTED [facility] Comment on above: Result Comment: When diagnostic [...] for this test is supported by the Range Ecologist of Health and Human Service's declaration that [...] used). Performed By: #### M MA2 #### [facility] [address] [place] [address] Dr. Good Montiel PROF 14(COMP METB)on 022 Albumin [Mass/Vol] 3.1 g/dL Critically low 3.4-5.0 [facility] Comment on above: Performed By: #### C MP, BNP #### [facility] [address] [place] [address] Dr. Good Montiel Albumin/Globulin [Mass ratio] 0.9 {ratio} Normal [facility] Comment on above: Performed By: #### C MP, BNP #### [facility] [address] [address] [address] Good Montiel ALP [Catalytic activity/Vol] 60 U/L Normal 46-116 [facility] Comment on above: Performed By: #### C MP, BNP #### [facility] [address] [address] [address] Good Montiel ALT [Catalytic activity/Vol] 30 U/L Normal 14-59 [facility] Comment on above: Performed By: #### C MP, BNP #### [facility] [address] [address] [address] Good Montiel Anion gap [Moles/Vol] 10.1 mmol/L Normal [facility] Comment on above: Performed By: #### C MP, BNP #### [facility] [address] [place] [address] Dr. Good Montiel AST [Catalytic activity/Vol] 32 U/L Normal 15-37 [facility] Comment on above: Performed By: #### C MP, BNP #### [facility] [address] [address] [address] Good Montiel Bilirubin [Mass/Vol] 0.7 mg/dL Normal 0.2-1.0 [facility] Comment on above: Performed By: #### C MP, BNP #### [facility] [address] [address] [address] Good Montiel Calcium [Mass/Vol] 8.7 mg/dL Normal 8.5-10.1 [facility] Comment on above: Performed By: #### C MP, BNP #### [facility] [address] [address] [address] Good Montiel Chloride [Moles/Vol] 93 mmol/L Critically low 98-107 [facility] Comment on above: Performed By: #### C MP, BNP #### [facility] [address] [address] [address] Good Montiel CO2 [Moles/Vol] 27.5 mmol/L Normal 21.0-32.0 [facility] Comment on above: Performed By: #### C MP, BNP #### [facility] [address] [address] [address] Good Montiel Creatinine [Mass/Vol] 0.80 mg/dL Normal 0.55-1.02 [facility] Comment on above: Performed By: #### C MP, BNP #### [facility] [address] [address] [address] Good Montiel EGFR-AF EGYPTIAN >60 Normal >=60 [facility] Comment on above: Performed By: #### C MP, BNP #### [facility] [address] [address] [address] Good Montiel EGFR-NON AF EGYPTIAN >60 Normal >=60 [facility] Comment on above: Performed By: #### C MP, BNP #### [facility] [address] [address] [address] Good Montiel Globulin (S) [Mass/Vol] 3.5 g/dL Normal [facility] Comment on above: Performed By: #### C MP, BNP #### [facility] [address] [address] [address] Good Montiel Glucose [Mass/Vol] 146 mg/dL Critically high 74-106 [facility] Comment on above: Performed By: #### C MP, BNP #### [facility] [address] [address] [address] Good Montiel Potassium [Moles/Vol] 3.6 mmol/L Normal 3.5-5.1 [facility] Comment on above: Performed By: #### C MP, BNP #### [facility] [address] [address] [address] Good Montiel Protein [Mass/Vol] 6.6 g/dL Normal 6.4-8.2 [facility] Comment on above: Performed By: #### C MP, BNP #### [facility] [address] [address] [address] Good Montiel Sodium [Moles/Vol] 127 mmol/L Critically low 136-145 [facility] Comment on above: Performed By: #### C MP, BNP #### [facility] [address], [place] [address] [address] Good Montiel Urea nitrogen [Mass/Vol] 19.0 mg/dL Critically high 7.0-18.0 [facility] Comment on above: Performed By: #### C MP, BNP #### [facility] [address], [place] [address] Dr. Good Montiel Urea nitrogen/Creatinine [Mass ratio] 23.8 mg/mg Normal [facility] Comment on above: Performed By: #### C MP, BNP #### [facility] [address], [place] [address] Dr. Good Montiel XR CHEST 1 Von [...] by: KETAN ALVAREZ Date: 2021-11-24 00:21 Normal [facility] CT LUNG CANCER SCREENINGon 0 11-10-2021 [...] in 12 months. Electronically authenticated by: ARIAN VARGAS Date: 2021-11-10 10:55 Normal [facility] MAMM SCREEN 3D [place] CADon 11-10-2021 MG MAMM SCREEN 3D [place] CAD Patient: NUVIA MARTIN Exam Date: 11/10/2021 : 1945 Gender:F Ordering : DR LATONYA JOSEPH PA Admission #: [id number] Family : Order #: [id number] CLICK HERE TO VIEW EXAM RADIOLOGY REPORT [...] with breast cancer at age 62. LOCATION: [facility] BREAST COMPOSITION: Scattered areas fibroglandular density. [...] LUMP SHOULD BE BIOPSIED. Dictated by: Arian Vargas MD on 11/12/2021 at 08:01 Approved by: Arian Vargas MD on 11/12/2021 at 08:03 Normal [facility] XR DEXA BONE DENSITYon 11-10 XR [...] Moderate fracture risk Electronically authenticated by: ARIAN VARGAS Date: 2021-11-10 17:06 Normal [facility] Comprehensive Metabolic Pane bing 10-01-2021 Albumin [Mass/Vol] 3.9 g/dL Normal 3.6-5.1 [facility] [place] [employer] Comment on above: Performed By: #### C MP #### [facility] [address], [place] [id number] Albumin/Globulin [Mass ratio] 1.4 {ratio} Normal 1.0-2.5 [facility] Comment on above: Performed By: #### C MP #### [facility] [address], [place] [id number] ALP [Catalytic activity/Vol] 51 U/L Normal 35-119 [facility] Comment on above: Performed By: #### C MP #### [facility] [address], [place] [id number] ALT [Catalytic activity/Vol] 15 U/L Normal 6-33 [facility] Comment on above: Result Comment: 04/15 Female reference range changed. Performed By: #### C MP #### [facility] [address], [place] [id number] Anion gap [Moles/Vol] 18 mmol/L Normal 12-20 [facility] Comment on above: Result Comment: Effe ctive 05/21/2019 reference range changed. Performed By: #### C MP #### [facility] [address], [place] [id number] AST [Catalytic activity/Vol] 20 U/L Normal 9-34 [facility] Comment on above: Performed By: #### C MP #### [facility] [address], [place] [id number] BUN/CREA 18 Ratio Normal 6-22 [facility] Comment on above: Performed By: #### C MP #### [facility] [address], [place] [id number] Calcium [Mass/Vol] 9.8 mg/dL Normal 8.6-10.2 [facility] on above: Performed By: #### C MP #### [facility] [address], [place] [id number] Chloride [Moles/Vol] 88 mmol/L Low 98-107 [facility] Comment on above: Performed By: #### C MP #### [facility] [address], [place] [id number] CO2 [Moles/Vol] 23 mmol/L Normal 20-31 [facility] Comment on above: Performed By: #### C MP #### [facility] [address], [place] [id number] Creatinine [Mass/Vol] 0.9 mg/dL Normal 0.6-1.4 [facility] Comment on above: Performed By: #### C MP #### [facility] [address], [place] [id number] eGFRAA 77 mL/min/1.73m2 Normal >60 [facility] Comment on above: Performed By: #### C MP #### [facility] [address], [place] [id number] eGFRNAA 64 mL/min/1.73m2 Normal >60 [facility] Comment on above: Performed By: #### C MP #### [facility] [address], [place] [id number] Globulin (S) [Mass/Vol] 2.7 g/dL Normal 1.9-3.7 [facility] Comment on above: Performed By: #### C MP #### [facility] [address] [facility] [place] [id number] Glucose [Mass/Vol] 151 mg/dL High 65-99 [facility] [place] [employer] Comment on above: Result Comment: For FASTING Glucose --- ADA reference ranges: Normal 65-99 mg/dl Prediabetes 100-125 Diabetes >/= 126 Performed By: #### C MP #### [facility] [address], [place] [id number] Potassium [Moles/Vol] 4.5 mmol/L Normal 3.5-5.5 [facility] Comment on above: Performed By: #### C MP #### [facility] [address], [place] [id number] Protein [Mass/Vol] 6.6 g/dL Normal 6.1-8.1 [facility] Comment on above: Performed By: #### C MP #### [facility] [address], [place] [id number] Sodium [Moles/Vol] 125 mmol/L Low 135-146 Aga [facility] Comment on above: Performed By: #### C MP #### [facility] [address], [place] [id number] TBIL <0.3 Normal [facility] Comment on above: Performed By: #### C MP #### [facility] [address], [place] [id number] Urea nitrogen [Mass/Vol] 16 mg/dL Normal 7-25 [facility] Comment on above: Performed By: #### C MP #### [facility] [address], [place] [id number] VITAMIN B6on 08-20-2021 Vitamin B6 50.1 ug/L Critically high 2.0-32.8 [facility] Comment on above: Result Comment: Ef fective August 17, 2021 Vitamin B6 reference interval will be changing to: 3.4 - 65.2 ug/L Deficiency: < 3.4 Marginal: 3.4 - 5.1 Adequate: > 5.1 Performed By: #### V ITAB6 ####[facility] [address] [place], [place] [address]ZaSmooth Montiel METHYLMALONIC ACID (MMA)on 0 08-18-2021 Methylmalonic Acid, Serum 327 nmol/L Normal 0-378 [facility] Comment on above: Performed By: #### M MA2 #### [facility] [address] [address] [address] Good Montiel IMMUNOFIX ELEC, PROTEIN ELEC URINEon 08-14-2021 Albumin, U 55.3 % Normal [facility] Comment on above: Performed By: #### C MP, CMADM #### [facility] [address] [address] [address] Good Montiel Xgjss-6-Rjzuzqkt, U 3.9 % Normal [facility] Comment on above: Performed By: #### C MP, CMADM #### [facility] [address] [address] [address] Good Montiel Itgro-3-Srmareqf, U 6.7 % Normal [facility] Comment on above: Performed By: #### C MP, CMADM #### [facility] [address] [address] [address] Good Montiel Beta Globulin, U 12.9 % Normal [facility] Comment on above: Performed By: #### C MP, CMADM #### [facility] [address] [address] [address] Good Montiel Gamma Globulin, U 21.1 % Normal [facility] Comment on above: Performed By: #### C MP, CMADM #### [facility] [address] [address] [address] Good Montiel Immunofixation Result, Urine Comment: Normal [facility] Comment on above: Result Comment: Pres ence of monoclonal protein is unclear at this time. Suggest repeat in 3 to 6 months if clinically indicated. Performed By: #### C MP, CMADM #### [facility] [address] [address] [address] Good Montiel M-Brooks, % Not Observed Normal Not Observed [facility] Comment on above: Performed By: #### C MP, CMADM #### [facility] [address] [address] [address] Good Montiel Note: Comment Normal [facility] Comment on above: Result Comment: Prot ein electrophoresis scan will follow via computer, mail, or equal opportunity officer delivery. Performed By: #### C TIFFANY, CMADM #### [facility] [address] [place] [address] Dr. Good Montiel PDF . Normal [facility] Comment on above: Performed By: #### C TIFFANY, CMADM #### [facility] [address] [address] [address] Good Montiel Protein (U) [Mass/Vol] 12.2 mg/dL Normal Not Estab. Th [facility] Comment on above: Performed By: #### C TIFFANY, CMADM #### [facility] [address] [address] [address] Good Montiel WEST NILE VIRUS AB (IGG AND IGM)on 08-14-2021 West Nile Virus, IgG Negative Normal Negative [facility] Comment on above: Result Comment: No d etectable West Nile Virus IgG Antibody. If a recent infection is suspected, another specimen should be submitted for testing within 7-14 days. Performed By: #### C TIFFANY, CMADM #### [facility] [address] [address] [address] Good Montiel West Nile Virus, IgM Negative Normal Negative [facility] Comment on above: Result Comment: No d etectable West Nile Virus IgM Antibody. If a recent infection is suspected, another specimen should be submitted for testing within 7-14 days. Performed By: #### C TIFFANY, CMADM #### [facility] [address] [place] [address] Dr. Good Montiel JAY EIA W/REFLEX 5 BIOMARKER Son 08-13-2021 JAY Direct Negative Normal Negative [facility] Comment on above: Performed By: #### A NARF ####[facility] [address] [address]Dr. Good Montiel C-REACTIVE PROTEINS (HS)on 0 08-13-2021 C-Reactive Protein, Cardiac 0.55 mg/L Normal 0.00-3.00 [facility] Comment on above: Result Comment: Rela tive Risk for Future Cardiovascular Event Low <1.00 Average 1.00 - 3.00 High >3.00 Performed By: #### C RPHS ####[facility] [address] [address]Dr. Good Montiel HOMOCYSTEINEon 08-13-2021 Homocyst(e)ine, Plasma 15.3 umol/L Normal 0.0-19.2 [facility] Comment on above: Performed By: #### H OMCY #### [facility] [address] [address] [address] Good Montiel IMMUNOFIXATION ELEC, PROTEIN ELECon 08-13-2021 Albumin [Mass/Vol] 3.7 g/dL Normal 2.9-4.4 [facility] Comment on above: Performed By: #### M MA2 #### [facility] [address] [address] [address] Good Montiel Albumin/Globulin [Mass ratio] 1.1 {ratio} Normal 0.7-1.7 [facility] Comment on above: Performed By: #### Hakeem DU2 #### [facility] [address] [address] [address] Good Montiel Gdhxy-3-Gphoczic 0.2 g/dL Normal 0.0-0.4 [facility] Comment on above: Performed By: #### Hakeem MA2 #### [facility] [address] [place] [address] Dr. Good Montiel Mzyzu-9-Yhfbvmxc 0.9 g/dL Normal 0.4-1.0 [facility] Comment on above: Performed By: #### Hakeem MA2 #### [facility] [address] [address] [address] Good Montiel Beta Globulin 1.2 g/dL Normal 0.7-1.3 [facility] Comment on above: Performed By: #### Hakeem MA2 #### [facility] [address] [place] [address] Dr. Good Montiel Gamma Globulin 1.2 g/dL Normal 0.4-1.8 [facility] Comment on above: Performed By: #### Hakeem MA2 #### [facility] [address] [place] [address] Dr. Good Montiel Globulin (S) [Mass/Vol] 3.4 g/dL Normal 2.2-3.9 [facility] Comment on above: Performed By: #### M MA2 #### [facility] [address] [address] [address] Good Montiel Immunofixation Result, Serum Comment: Normal [facility] Comment on above: Result Comment: Pres ence of monoclonal protein is unclear at this time. Suggest repeat in 3 to 6 months if clinically indicated. Performed By: #### M MA2 #### [facility] [address] [address] [address] Good Montiel Immunoglobulin A, Qn, Serum 269 mg/dL Normal 64-422 [facility] Comment on above: Performed By: #### M MA2 #### [facility] [address] [place] [address] Dr. Good Montiel Immunoglobulin G, Qn, Serum 1056 mg/dL Normal 586-1602 [facility] Comment on above: Performed By: #### Hakeem MA2 #### [facility] [address] [place] [address] Dr. Good Montiel Immunoglobulin M, Qn, Serum 201 mg/dL Normal 26-217 [facility] Comment on above: Performed By: #### M MA2 #### [facility] [address] [place] [address] Dr. Good Montiel M-Brooks Comment: Normal Not Observed [facility] Comment on above: Result Comment: ASYM METRICAL GAMMA Performed By: #### M MA2 #### [facility] [address] [address] [address] Good Montiel PDF . Normal [facility] Comment on above: Performed By: #### M MA2 #### [facility] [address] [place] [address] Dr. Good Montiel Please note: Comment Normal [facility] Comment on above: Result Comment: Prot ein electrophoresis scan will follow via computer, mail, or equal opportunity officer delivery. Performed By: #### M MA2 #### [facility] [address] [address] [address] Good Montiel Protein [Mass/Vol] 7.1 g/dL Normal 6.0-8.5 [facility] Comment on above: Performed By: #### M MA2 #### [facility] [address] [address] [address] Good Montiel LYME DISEASE AB EIA W REFLEX on 08-13-2021 Lyme Total Antibody,EIA Negative Normal Negative [facility] Comment on above: Result Comment: Lyme Antibody Negative No laboratory evidence of infection with B. burgdorferi (Lyme disease). Negative results may occur in patients recently infected (greater than or equal to 14 days) with B. burgdorferi. If recent infection is suspected, repeat testing on a new sample collected in 7 to 14 days is recommended. Performed By: #### L YMA ####[facility] [address] [address]. Good Montiel RHEUMATOID FACTORon 08-14-19 22 RA Latex Turbid. 10.1 IU/mL Normal <14.0 [facility] Comment on above: Performed By: #### C SERAFIN ALLEN #### [facility] [address] [address] [address] Good Montiel RPR QUANTon 08-13-2021 Rapid Plasma Reagin, Quant Non-Reactive Normal NonRea<1:1 [facility] Comment on above: Result Comment: Plea se Note: This test does not meet current guidelines for screening and diagnosis of syphilis. This test is intended for following treatment response in patients being treated for syphilis infection. To screen for syphilis infection, a reflex cascade that includes both RPR and a treponema-specific assay should be utilized, such as Treponema pallidum (Syphilis) Screening [place] (088750) or Rapid Plasma Reagin (RPR) Test With Reflex to Quantitative RPR and Confirmatory Treponema pallidum Antibodies (510355). Performed By: #### C TIFFANY, SERAFIN #### [facility] [address] [place] [address] Dr. Good Montiel FREE T4on 08-12-2021 Free T4 [Mass/Vol] 1.03 ng/dL Normal 0.78-2.19 [facility] Comment on above: Performed By: #### B 12FOL, FT4 ####[facility] [address] [place] [id number]. Good Montiel SED RATE WESTERGRENon 2021 SED RATE 17 mm/hr Normal <=30 [facility] Comment on above: Performed By: #### C MP, CMADM #### [facility] [address], [place] [address] Dr. Good Montiel TSHon 08-12-2021 TSH 3.737 uIU/mL Normal 0.470-4.680 [facility] Comment on above: Performed By: #### T SH ####[facility] [address] [place] [address]Dr. Good Montiel TSH RANGE SEE BELOW Normal [facility] Comment on above: Result Comment: <0.3 4 UIU/ml HYPERTHYROID 0.34-5.60 UIU/ml EUTHYROID >5.60 UIU/ml HYPOTHYROID Performed By: #### T SH ####[facility] [address] [place] [address]Dr. Good Montiel VIT B12 AND FOLATEon 022 Cobalamin (Vitamin B12) [Mass/Vol] 741.0 pg/mL Normal 239.0-931.0 [facility] Comment on above: Performed By: #### B 12FOL, FT4 ####[facility] [address] [place] [id number]. Good Montiel FOLATE >20.00 Normal >=2.76 [facility] Comment on above: Performed By: #### B 12FOL, FT4 ####[facility] [address] [place] [id number]. Good Montiel CBC AUTO DIFFon 06-10-2021 BASO # 0.1 103/ul Normal 0.0-0.1 [facility] Comment on above: Performed By: #### C BC ####[facility] [address] [place] [address]Dr. Good Montiel Basophils/100 WBC (Bld) 0.7 % Normal 0.2-2.0 [facility] Comment on above: Performed By: #### C BC ####[facility] [address] [place] [id number]. Good Montiel EO # 0.2 103/ul Normal 0.0-0.7 [facility] Comment on above: Performed By: #### C BC ####[facility] [address] [place] [id number]. Good Montiel Eosinophils/100 WBC (Bld) 1.6 % Normal 0.9-7.0 [facility] Comment on above: Performed By: #### C BC ####[facility] [address] [place] [address]Dr. Good Montiel Erythrocyte distribution width (RBC) [Ratio] 18.7 % Critically high 11.0-15.0 [facility] Comment on above: Performed By: #### C BC ####[facility] [address] [place], [place] [address]Dr. Good Montiel Hematocrit (Bld) [Volume fraction] 29.6 % Critically low 36.0-48.0 [facility] Comment on above: Performed By: #### C BC ####[facility] [address] [place], [place] [address]Dr. Good Montiel Hemoglobin (Bld) [Mass/Vol] 9.1 g/dL Critically low 12.0-16.0 [facility] Comment on above: Performed By: #### C BC ####[facility] [address] [place] [address]Dr. Good Montiel IG # 0.06 10e3/ul Critically high 0.00-0.03 [facility] Comment on above: Performed By: #### C BC ####[facility] [address] [place], [place] [address]Dr. Good Montiel IG % 0.6 % Critically high 0.0-0.5 [facility] Comment on above: Performed By: #### C BC ####[facility] [address] [place], [place] [address]DrSmooth Montiel LYMPH # 2.0 103/ul Normal 1.2-3.8 [facility] Comment on above: Performed By: #### C BC ####[facility] [address] [place] [address]Dr. Good Montiel Lymphocytes/100 WBC (Bld) 18.5 % Critically low 20.5-60.0 [facility] Comment on above: Performed By: #### C BC ####[facility] [address] [place] [address]DrSmooth Montiel MANUAL DIFF REQ NO Normal [facility] Comment on above: Performed By: #### C BC ####[facility] [address] [place] [phone]. Good Montiel MCH (RBC) [Entitic mass] 21.8 pg Critically low 26.7-34.0 [facility] Comment on above: Performed By: #### C BC ####[facility] [address] [place], [place] [address]Dr. Good Montiel MCHC (RBC) [Mass/Vol] 30.7 g/dL Normal 29.9-35.2 [facility] Comment on above: Performed By: #### C BC ####[facility] [address] [place] [address]DrSmooth Montiel MCV (RBC) [Entitic vol] 71.0 fL Critically low 81.0-99. 0 [facility] Comment on above: Performed By: #### C BC ####[facility] [address] [place] [address]DrSmooth Montiel MONO # 0.8 103/ul Normal 0.3-0.8 [facility] Comment on above: Performed By: #### C BC ####[facility] [address] [place] [phone] Montiel Monocytes/100 WBC (Bld) 7.0 % Normal 1.7-12.0 [facility] Comment on above: Performed By: #### C BC ####[facility] [address] [place], [place] [address]DrSmooth Montiel NEUT # 7.6 103/ul Critically high 1.4-6.5 [facility] Comment on above: Performed By: #### C BC ####[facility] [address] [place] [phone] Montiel Neutrophils/100 WBC (Bld) 71.6 % Normal 43.0-75.0 [facility] Comment on above: Performed By: #### C BC ####[facility] [address] [place] [phone] Montiel Platelet mean volume (Bld) [Entitic vol] 8.4 fL Critically low 9.5-13.5 [facility] Comment on above: Performed By: #### C BC ####[facility] [address] [place] [phone] Montiel PLT 442 103/ul Normal 150-450 [facility] Comment on above: Performed By: #### C BC ####[facility] [address] [place] [phone]. Good Montiel RBC 4.17 106/ul Critically low 4.20-5.40 [facility] Comment on above: Performed By: #### C BC ####[facility] [address] [place] [phone] Montiel WBC 10.7 103/ul Normal 4.0-11.0 [facility] Comment on above: Performed By: #### C BC ####[facility] [address] [place] [phone]. Good Montiel CRPon 06-10-2021 CRP [Mass/Vol] mg/L Normal <=1.0 [facility] Comment on above: Performed By: #### M MA2 #### [facility] [address], [place] [address] Dr. Good Montiel ER URINE PROFILEon 2 Bilirubin Ql (U) Negative Normal NEGATIVE [facility] Comment on above: Performed By: #### E RUR ####[facility] [address] [place] [phone]. Good Montiel Clarity (U) CLEAR Normal CLEAR [facility] Comment on above: Performed By: #### E RUR ####[facility] [address] [place], [place] [address]Dr. Good Montiel Color (U) YELLOW Normal YELLOW [facility] Comment on above: Performed By: #### E RUR ####[facility] [address] [place], [place] [address]Dr. Good Montiel ERUAHD A micrscopic examination will be performed if indicated. Normal [facility] Comment on above: Performed By: #### E RUR ####[facility] [address] [place], [place] [address]Dr. Good Dinesh Glucose Ql (U) Negative Normal NEGATIVE [facility] Comment on above: Performed By: #### E RUR ####[facility] [address] [place], [place] [address]Dr. Good Dinesh Hemoglobin Ql (U) Negative Normal NEGATIVE [facility] Comment on above: Performed By: #### E RUR ####[facility] [address] [place], [place] [address]Dr. Good Montiel Ketones Ql (U) Negative Normal NEGATIVE [facility] Comment on above: Performed By: #### E RUR ####[facility] [address] [place], [place] [address]Dr. Rejoo Montiel LEUKOCYTES Negative Normal NEGATIVE [facility] Comment on above: Performed By: #### E RUR ####[facility] [address] [place], [place] [address]Dr. Good Montiel Nitrite Ql (U) Negative Normal NEGATIVE [facility] Comment on above: Performed By: #### E RUR ####[facility] [address] [place], [place] [address]Dr. Rejoo Dinesh pH (U) 6.5 [pH] Normal 5-9 [facility] Comment on above: Performed By: #### E RUR ####[facility] [address] [place], [place] [address]Dr. Good Montiel SPEC GRAVITY 1.010 Normal 1.005-<=1.02 5 [facility] Comment on above: Performed By: #### E RUR ####[facility] [address] [place] [address]Dr. Good Montiel UA PROTEIN Negative Normal NEGATIVE/ TRACE [facility] Comment on above: Performed By: #### E RUR ####[facility] [address] [place] [address]Dr. Good Montiel UR MICRO IND NOT INDICATED Normal [facility] Comment on above: Performed By: #### E RUR ####[facility] [address] [place] [address]Dr. Good Montiel Urobilinogen Qn (U) 0.2 {Momo'U}/dL Normal 0.2 - 1. 0 [facility] Comment on above: Performed By: #### E RUR ####[facility] [address] [place] [address]DrSmooth Montiel LACTATE/LACTIC ACIDon 2021 Lactate [Moles/Vol] 1.9 mmol/L Normal 0.7-2.0 [facility] Comment on above: Performed By: #### L ACT ####[facility] [address] [place], [place] [address]Dr. Good Montiel PROF 14(COMP METB)on 022 Albumin [Mass/Vol] 3.0 g/dL Critically low 3.5-5.0 [facility] Comment on above: Performed By: #### Hakeem DU2 #### [facility] [address] [place] [address] [address] Good Montiel Albumin/Globulin [Mass ratio] 0.9 {ratio} Normal [facility] Comment on above: Performed By: #### Hakeem DU2 #### [facility] [address] [place] [address] [address] Good Montiel ALP [Catalytic activity/Vol] 36 U/L Critically low 38-126 [facility] Comment on above: Performed By: #### Hakeem DU2 #### [facility] [address] [place] [address] [address] Good Montiel ALT [Catalytic activity/Vol] 26 U/L Normal 9-52 [facility] Comment on above: Performed By: #### M MA2 #### [facility] [address] [place] [address] [address] Good Montiel Anion gap [Moles/Vol] 12.2 mmol/L Normal [facility] Comment on above: Performed By: #### M MA2 #### [facility] [address] [place] [address] [address] Good Montiel AST [Catalytic activity/Vol] 23 U/L Normal 14-36 [facility] Comment on above: Performed By: #### M MA2 #### [facility] [address] [place] [address] [address] Good Montiel Bilirubin [Mass/Vol] 0.4 mg/dL Normal 0.2-1.3 [facility] Comment on above: Performed By: #### M MA2 #### [facility] [address] [place] [address] [address] Good Montiel Calcium [Mass/Vol] 8.5 mg/dL Normal 8.4-10.2 [facility] Comment on above: Performed By: #### M MA2 #### [facility] [address] [place] [address] [address] Good Montiel Chloride [Moles/Vol] 93 mmol/L Critically low 98-107 [facility] Comment on above: Performed By: #### M MA2 #### [facility] [address] [place] [address] [address] Good Montiel CO2 [Moles/Vol] 27.6 mmol/L Normal 22.0-30.0 [facility] Comment on above: Performed By: #### M MA2 #### [facility] [address] [place] [address] [address] Good Montiel Creatinine [Mass/Vol] 0.78 mg/dL Normal 0.52-1.04 [facility] Comment on above: Performed By: #### M MA2 #### [facility] [address] [place] [address] [address] Good Montiel EGFR-AF EGYPTIAN >60 Normal >=60 [facility] Comment on above: Performed By: #### M MA2 #### [facility] [address] [place] [address] [address] Good Montiel EGFR-NON AF EGYPTIAN >60 Normal >=60 [facility] Comment on above: Performed By: #### M MA2 #### [facility] [address] [place] [address] [address] Good Montiel Globulin (S) [Mass/Vol] 3.2 g/dL Normal [facility] Comment on above: Performed By: #### M MA2 #### [facility] [address] [place] [address] [address] Good Montiel Glucose [Mass/Vol] 111 mg/dL Critically high 74-106 [facility] Comment on above: Performed By: #### M MA2 #### [facility] [address] [place] [address] [address] Good Montiel Potassium [Moles/Vol] 3.8 mmol/L Normal 3.4-5.0 [facility] Comment on above: Performed By: #### M MA2 #### [facility] [address] [place] [address] [address] Good Montiel Protein [Mass/Vol] 6.2 g/dL Normal 6.1-8.2 [facility] Comment on above: Performed By: #### M MA2 #### [facility] [address] [place] [address] [address] Good Montiel Sodium [Moles/Vol] 129 mmol/L Critically low 137-145 [facility] Comment on above: Performed By: #### M MA2 #### [facility] [address] [place] [address] [address] Good Montiel Urea nitrogen [Mass/Vol] 17.0 mg/dL Normal 7.0-17.0 [facility] Comment on above: Performed By: #### M MA2 #### [facility] [address] [place] [address] [address] Good Montiel Urea nitrogen/Creatinine [Mass ratio] 21.8 mg/mg Normal [facility] Comment on above: Performed By: #### M MA2 #### [facility] [address] [place] [address] Dr. Good Montiel TROPONIN, HIGH SENSITIVITYon 06-10-2021 HSTROP 9.8 pg/mL Normal 4.0-35.5 [facility] Comment on above: Result Comment: CUT- OFF POINTS HAVE BEEN ESTABLISHED BASED ON THE FOURTH UNIVERSAL DEFINITIONS OF MYOCARDIAL INFARCTION. THE UPPER REFERENCE LIMIT (URL) OF TROPONIN, DEFINED THE 99TH PERCENTILE OF cTnI DISTRIBUTION IN A REFERENCE POPULATION, HAS BEEN CONFIRMED THE DECISION THRESHOLD FOR PA DIAGNOSIS. Performed By: #### Hakeem RIVERA #### [facility] [address] [place] [address] Dr. Good Montiel TSHon 06-10-2021 TSH 7.927 uIU/mL Critically high 0.470-4.680 [facility] Comment on above: Performed By: #### Hakeem RIVERA #### [facility] [address] [place] [address] Dr. Good Montiel TSH RANGE SEE BELOW Normal [facility] Comment on above: Result Comment: <0.3 4 UIU/ml HYPERTHYROID 0.34-5.60 UIU/ml EUTHYROID >5.60 UIU/ml HYPOTHYROID Performed By: #### Hakeem RIVERA #### [facility] [address] [place] [address] Dr. Good Montiel CBC AUTO DIFFon 06-06-2021 BASO # 0.1 103/ul Normal 0.0-0.1 [facility] Comment on above: Performed By: #### SERAFIN Portillo MP #### [facility] [address] [place] [address] Dr. Good Montiel Basophils/100 WBC (Bld) 0.7 % Normal 0.2-2.0 [facility] Comment on above: Performed By: #### SERAFIN Portillo MP #### [facility] [address] [place] [address] Dr. Good Montiel EO # 0.2 103/ul Normal 0.0-0.7 [facility] Comment on above: Performed By: #### SERAFIN Portillo MP #### [facility] [address] [place] [address] [address] Good Montiel Eosinophils/100 WBC (Bld) 2.5 % Normal 0.9-7.0 [facility] Comment on above: Performed By: #### C TIFFANY, CMADM #### [facility] [address] [place] [address] Dr. Good Montiel Erythrocyte distribution width (RBC) [Ratio] 18.5 % Critically high 11.0-15.0 [facility] Comment on above: Performed By: #### C TIFFANY, CMADM #### [facility] [address] [place] [address] [address] Good Montiel Hematocrit (Bld) [Volume fraction] 30.1 % Critically low 36.0-48.0 [facility] Comment on above: Performed By: #### C TIFFANY, CMADM #### [facility] [address] [place] [address] Dr. Good Montiel Hemoglobin (Bld) [Mass/Vol] 9.3 g/dL Critically low 12.0-16.0 [facility] Comment on above: Performed By: #### C TIFFANY, CMADM #### [facility] [address] [place] [address] [address] Good Montiel IG # 0.06 10e3/ul Critically high 0.00-0.03 [facility] Comment on above: Performed By: #### C TIFFANY, CMADM #### [facility] [address] [place] [address] Dr. Good Montiel IG % 0.7 % Critically high 0.0-0.5 [facility] Comment on above: Performed By: #### C TIFFANY, CMADM #### [facility] [address] [place] [address] Dr. Good Montiel LYMPH # 2.0 103/ul Normal 1.2-3.8 [facility] Comment on above: Performed By: #### C TIFFANY, CMADM #### [facility] [address] [place] [address] Dr. Good Montiel Lymphocytes/100 WBC (Bld) 23.0 % Normal 20.5-60.0 [facility] Comment on above: Performed By: #### C TIFFANY, CMADM #### [facility] [address] [place] [address] Dr. Good Montiel MANUAL DIFF REQ NO Normal [facility] Comment on above: Performed By: #### C MP, CMADM #### [facility] [address] [place] [address] Dr. Good Montiel MCH (RBC) [Entitic mass] 21.9 pg Critically low 26.7-34.0 [facility] Comment on above: Performed By: #### C TIFFANY, CMADM #### [facility] [address] [place] [address] Dr. Good Montiel MCHC (RBC) [Mass/Vol] 30.9 g/dL Normal 29.9-35.2 [facility] Comment on above: Performed By: #### C TIFFANY, CMADM #### [facility] [address] [place] [address] Dr. Good Montiel MCV (RBC) [Entitic vol] 70.8 fL Critically low 81.0-99. 0 [facility] Comment on above: Performed By: #### C TIFFANY, CMADM #### [facility] [address] [place] [address] Dr. Good Montiel MONO # 1.0 103/ul Critically high 0.3-0.8 [facility] Comment on above: Performed By: #### C TIFFANY, CMADM #### [facility] [address] [place] [address] Dr. Good Montiel Monocytes/100 WBC (Bld) 11.3 % Normal 1.7-12.0 [facility] Comment on above: Performed By: #### C TIFFANY, CMADM #### [facility] [address] [place] [address] Dr. Good Montiel NEUT # 5.2 103/ul Normal 1.4-6.5 [facility] Comment on above: Performed By: #### C TIFFANY, CMADM #### [facility] [address] [place] [address] Dr. Good Montiel Neutrophils/100 WBC (Bld) 61.8 % Normal 43.0-75.0 [facility] Comment on above: Performed By: #### C SERAFIN ALLEN #### [facility] [address] [place] [address] Dr. Good Montiel Platelet mean volume (Bld) [Entitic vol] 8.5 fL Critically low 9.5-13.5 [facility] Comment on above: Performed By: #### C SERAFIN ALLEN #### [facility] [address] [place] [address] [address] Good Montiel PLT 455 103/ul Critically high 150-450 [facility] Comment on above: Performed By: #### C SERAFIN ALLEN #### [facility] [address] [place] [address] Dr. Good Montiel RBC 4.25 106/ul Normal 4.20-5.40 [facility] Comment on above: Performed By: #### C SERAFIN ALLEN #### [facility] [address] [place] [address] Dr. Good Montiel WBC 8.5 103/ul Normal 4.0-11.0 [facility] Comment on above: Performed By: #### C SERAFIN ALLEN #### [facility] [address] [place] [address] Dr. Good Montiel POINT OF CARE GLUCOSEon 05-17 Glucose [Mass/Vol] 164 mg/dL Critically high 74-106 [facility] Comment on above: Performed By: #### C SERAFIN ALLEN #### [facility] [address] [place] [address] Dr. Good Montiel PROF 14(COMP METB)on 022 Albumin [Mass/Vol] 3.2 g/dL Critically low 3.5-5.0 [facility] Comment on above: Performed By: #### Hakeem RIVERA #### [facility] [address] [place] [address] Dr. Good Montiel Albumin/Globulin [Mass ratio] 1.1 {ratio} Normal [facility] Comment on above: Performed By: #### M MIGUEL #### [facility] [address] [place] [address] [address] Good Montiel ALP [Catalytic activity/Vol] 37 U/L Critically low 38-126 [facility] Comment on above: Performed By: #### M MA2 #### [facility] [address] [place] [address] [address] Good Montiel ALT [Catalytic activity/Vol] 26 U/L Normal 9-52 [facility] Comment on above: Performed By: #### M MA2 #### [facility] [address] [place] [address] [address] Good Montiel Anion gap [Moles/Vol] 11.5 mmol/L Normal [facility] Comment on above: Performed By: #### M MA2 #### [facility] [address] [place] [address] [address] Good Montiel AST [Catalytic activity/Vol] 25 U/L Normal 14-36 [facility] Comment on above: Performed By: #### M MA2 #### [facility] [address] [place] [address] [address] Good Montiel Bilirubin [Mass/Vol] 0.4 mg/dL Normal 0.2-1.3 [facility] Comment on above: Performed By: #### M MA2 #### [facility] [address] [place] [address] [address] Good Montiel Calcium [Mass/Vol] 8.8 mg/dL Normal 8.4-10.2 [facility] Comment on above: Performed By: #### M MA2 #### [facility] [address] [place] [address] [address] Good Montiel Chloride [Moles/Vol] 93 mmol/L Critically low 98-107 [facility] Comment on above: Performed By: #### M MA2 #### [facility] [address] [place] [address] [address] Good Montiel CO2 [Moles/Vol] 28.2 mmol/L Normal 22.0-30.0 [facility] Comment on above: Performed By: #### M MA2 #### [facility] [address] [place] [address] [address] Good Montiel Creatinine [Mass/Vol] 0.57 mg/dL Normal 0.52-1.04 [facility] Comment on above: Performed By: #### M MA2 #### [facility] [address] [place] [address] [address] Good Montiel EGFR-AF EGYPTIAN >60 Normal >=60 [facility] Comment on above: Performed By: #### M MA2 #### [facility] [address] [place] [address] [address] Good Montiel EGFR-NON AF EGYPTIAN >60 Normal >=60 [facility] Comment on above: Performed By: #### M ANA LAURA2 #### [facility] [address] [place] [address] [address] Good Montiel Globulin (S) [Mass/Vol] 3.0 g/dL Normal T [facility] Comment on above: Performed By: #### M ANA LAURA2 #### [facility] [address] [place] [address] [address] Good Montiel Glucose [Mass/Vol] 106 mg/dL Normal 74-106 [facility] Comment on above: Performed By: #### M ANA LAURA2 #### [facility] [address] [place] [address] Dr. Good Montiel Potassium [Moles/Vol] 3.7 mmol/L Normal 3.4-5.0 [facility] Comment on above: Performed By: #### M ANA LAURA2 #### [facility] [address] [address] [address] Good Montiel Protein [Mass/Vol] 6.2 g/dL Normal 6.1-8.2 [facility] Comment on above: Performed By: #### M ANA LAURA2 #### [facility] [address] [place] [address] Dr. Good Montiel Sodium [Moles/Vol] 129 mmol/L Critically low 137-145 [facility] Comment on above: Performed By: #### M ANA LAURA2 #### [facility] [address] [place] [address] Dr. Good Montiel Urea nitrogen [Mass/Vol] 14.0 mg/dL Normal 7.0-17.0 [facility] Comment on above: Performed By: #### M ANA LAURA2 #### [facility] [address] [place] [address] Dr. Good Montiel Urea nitrogen/Creatinine [Mass ratio] 24.6 mg/mg Normal [facility] Comment on above: Performed By: #### M ANA LAURA2 #### [facility] [address] [place] [address] Dr. Good Montiel CARDIAC LOGAN ADMITon 022 CK [Catalytic activity/Vol] 55 U/L Normal 30-135 [facility] Comment on above: Performed By: #### SERAFIN Portillo MP #### [facility] [address] [place] [address] Dr. Good Montiel CK.MB [Mass/Vol] 2.09 ng/mL Normal <=2.37 [facility] Comment on above: Performed By: #### SERAFIN Portillo MP #### [facility] [address] [place] [address] Dr. Good Montiel HSTROP 10.2 pg/mL Normal 4.0-35.5 [facility] Comment on above: Result Comment: CUT- OFF POINTS HAVE BEEN ESTABLISHED BASED ON THE FOURTH UNIVERSAL DEFINITIONS OF MYOCARDIAL INFARCTION. THE UPPER REFERENCE LIMIT (URL) OF TROPONIN, DEFINED THE 99TH PERCENTILE OF cTnI DISTRIBUTION IN A REFERENCE POPULATION, HAS BEEN CONFIRMED THE DECISION THRESHOLD FOR PA DIAGNOSIS. Performed By: #### SERAFIN Portillo MP #### [facility] [address] [place] [address] Dr. Good Montiel CLIF 61.0 ng/mL Normal <=61.5 [facility] Comment on above: Performed By: #### C SERAFIN ALLEN #### [facility] [address] [place] [address] Dr. Good Montiel CBC AUTO DIFFon 06-05-2021 BASO # 0.1 103/ul Normal 0.0-0.1 [facility] Comment on above: Performed By: #### C MONO ####[facility] [address] [address]Dr. Good Montiel Basophils/100 WBC (Bld) 0.8 % Normal 0.2-2.0 [facility] Comment on above: Performed By: #### C BC ####[facility] [address] [address]Dr. Good Montiel EO # 0.2 103/ul Normal 0.0-0.7 [facility] Comment on above: Performed By: #### C BC ####[facility] [address] [place], [place] [address]Dr. Good Montiel Eosinophils/100 WBC (Bld) 2.2 % Normal 0.9-7.0 [facility] Comment on above: Performed By: #### C BC ####[facility] [address] [place], [place] [address]Dr. Good Montiel Erythrocyte distribution width (RBC) [Ratio] 18.2 % Critically high 11.0-15.0 [facility] Comment on above: Performed By: #### C BC ####[facility] [address] [place], [place] [address]Dr. Good Montiel Hematocrit (Bld) [Volume fraction] 31.1 % Critically low 36.0-48.0 [facility] Comment on above: Performed By: #### C BC ####[facility] [address] [place], [place] [address]Dr. Good Montiel Hemoglobin (Bld) [Mass/Vol] 9.6 g/dL Critically low 12.0-16.0 [facility] Comment on above: Performed By: #### C BC ####[facility] [address] [address]Dr. Good Montiel IG # 0.07 10e3/ul Critically high 0.00-0.03 [facility] Comment on above: Performed By: #### C BC ####[facility] [address] [place], [place] [address]Dr. Good Montiel IG % 0.9 % Critically high 0.0-0.5 [facility] Comment on above: Performed By: #### C BC ####[facility] [address] [id number]. Good Dinesh LYMPH # 1.3 103/ul Normal 1.2-3.8 [facility] Comment on above: Performed By: #### C BC ####[facility] [address] [id number]. Good Dinesh Lymphocytes/100 WBC (Bld) 17.2 % Critically low 20.5-60.0 [facility] Comment on above: Performed By: #### C BC ####[facility] [address] [id number]. Rejoo Montiel MANUAL DIFF REQ NO Normal [facility] Comment on above: Performed By: #### C BC ####[facility] [address] [id number]. Rejoo Montiel MCH (RBC) [Entitic mass] 21.8 pg Critically low 26.7-34.0 [facility] Comment on above: Performed By: #### C BC ####[facility] [address] [id number]. Good Dinesh MCHC (RBC) [Mass/Vol] 30.9 g/dL Normal 29.9-35.2 [facility] Comment on above: Performed By: #### C BC ####[facility] [address] [id number]. Good Montiel MCV (RBC) [Entitic vol] 70.5 fL Critically low 81.0-99. 0 [facility] Comment on above: Performed By: #### C BC ####[facility] [address] [phone]. Good Montiel MONO # 0.6 103/ul Normal 0.3-0.8 [facility] Comment on above: Performed By: #### C BC ####[facility] [address] [id number]. Good Montiel Monocytes/100 WBC (Bld) 8.3 % Normal 1.7-12.0 [facility] Comment on above: Performed By: #### C BC ####[facility] [address] [place], [place] [address]Rs. Good Montiel NEUT # 5.3 103/ul Normal 1.4-6.5 [facility] Comment on above: Performed By: #### C BC ####[facility] [address] [place], [place] [address]In. Good Montiel Neutrophils/100 WBC (Bld) 70.6 % Normal 43.0-75.0 [facility] Comment on above: Performed By: #### C BC ####[facility] [address]hjc[address] [place], [place] [address]Vh. Good Montiel Platelet mean volume (Bld) [Entitic vol] 8.3 fL Critically low 9.5-13.5 [facility] Comment on above: Performed By: #### C BC ####[facility] [address]q37[address] [place], [place] [address]Rs. Good Montiel PLT 463 103/ul Critically high 150-450 [facility] Comment on above: Performed By: #### C BC ####[facility] [address] [place], [place] [address]Fr. Good Montiel RBC 4.41 106/ul Normal 4.20-5.40 [facility] Comment on above: Performed By: #### C BC ####[facility] Tsh[address] [place], [place] [address]Nt. Good Montiel WBC 7.6 103/ul Normal 4.0-11.0 [facility] Comment on above: Performed By: #### C BC ####[facility] [phone]. Good Montiel CT STROKE HEAD WOon 06-05-19 [...] GINGER BROOKS Date: 2021-06-05 10:30 Normal [facility] Covid-19 PCR (CVDTBH)on 05-17 SARS-CoV-2 (COVID-19) RNA FELECIA+probe Ql (Unsp spec) Not detected Normal NOT DETECTED [facility] Comment on above: Result Comment: When diagnostic [...] for this test is supported by the [employer] of Health and Human Service's declaration that [...] longer be used). Performed By: #### C [facility] #### [facility] [address] [address] [address] Good Montiel ECHOCARDIO M/2D COMPLETEon 0 06-05-2021 ECHOCARDIO M/2D COMPLETE Patient: NUVIA MARTIN Exam Date: 06/05/2021 : 1945 Gender:F Ordering : DR. RHIANNON OLSON . Admission #: [id number] Family : DR WILY PRADO M.D. Order #: [id number] CLICK HERE TO VIEW EXAM ECHOCARDIOGRAM REPORT [...] Area(A4C): 18.50 cm2 Left Atrium Systolic Volume(A2C): 43479 mm3 Left Atrium Systolic Volume(A4C): 50449 mm3 Mitral Valve MV E to A [...] Ramírez M.D. on 06/08/2021 at 14:19 Normal [facility] GLYCOHEMOGLOBIN A1Con 2021 ADA RECOMMENDATION ADA THERAPEUTIC TARGET 6.0 - 7.0 ACTION SUGGESTED > 7.0 Normal [facility] Comment on above: Performed By: #### M MA2 #### [facility] [address] [address] [address] Good Montiel Glucose [Mass/Vol] 131 mg/dL Normal [facility] Comment on above: Performed By: #### M MA2 #### [facility] [address] [address] [address] Good Montiel HbA1c (Bld) [Mass fraction] 6.2 % Critically high <=6.0 [facility] Comment on above: Performed By: #### M MA2 #### [facility] [address] [address] [address] Good Montiel LIPID PROFILEon 06-05-2021 CHOL-HDL RATIO NORM SEE BELOW Normal [facility] Comment on above: Result Comment: 3.3 - 4.4 LOW RISK 4.4 - 7.1 AVERAGE RISK 7.1 - 11.0 MODERATE RISK >11.0 HIGH RISK Performed By: #### C SERAFIN ALLEN #### [facility] [address] [address] [address] Good Montiel Cholesterol [Mass/Vol] 157 mg/dL Normal <=200 [facility] Comment on above: Performed By: #### C SERAFIN ALLEN #### [facility] [address] [address] [address] Good Montiel Cholesterol in HDL [Mass/Vol] 44 mg/dL Normal [facility] Comment on above: Performed By: #### C SERAFIN ALLEN #### [facility] [address] [place] [address] Dr. Good Montiel Cholesterol in LDL [Mass/Vol] 80.0 mg/dL Normal [facility] Comment on above: Performed By: #### C SERAFIN ALLEN #### [facility] [address] [place] [address] Dr. Good Montiel Cholesterol.total/Rocío sterol in HDL [Mass ratio] 3.6 {ratio} Normal [facility] Comment on above: Performed By: #### C SERAFIN ALLEN #### [facility] [address] [place] [address] Dr. Good Montiel HDL NORMAL > or = 60 mg/dl - LOW CARDIOVASCULAR RISK <40 mg/dl - HIGH CARDIOVASCULAR RISK Normal [facility] Comment on above: Performed By: #### C SERAFIN ALLEN #### [facility] [address] [place] [address] Dr. Good Montiel LDL CALC NORMAL SEE BELOW Normal [facility] Comment on above: Result Comment: <100 mg/dl OPTIMAL 100 - 129 mg/dl NEAR OR ABOVE OPTIMAL 130 - 159 mg/dl BORDERLINE HIGH 160 - 189 mg/dl HIGH >190 mg/dl VERY HIGH Performed By: #### C SERAFIN ALLEN #### [facility] [address] [place] [address] Dr. Good Montiel Triglyceride [Mass/Vol] 165 mg/dL Critically high <=150 [facility] Comment on above: Performed By: #### C SERAFIN ALLEN #### [facility] [address] [address] [address] Good Montiel VLDL CALC 33.0 mg/dL Normal [facility] Comment on above: Performed By: #### C SERAFIN ALLEN #### [facility] [address] [address] [address] Good Montiel MRI BRAIN WO CONon [...] by: ALFONSO ALTMAN Date: 2021-06-05 15:08 Normal [facility] POINT OF CARE GLUCOSEon 05-17 Glucose [Mass/Vol] 119 mg/dL Critically high 74-106 [facility] Comment on above: Performed By: #### P OCGLUC ####[facility] [address] [address]Dr. Good oMntiel Glucose [Mass/Vol] 169 mg/dL Critically high 74-106 [facility] Comment on above: Performed By: #### P OCGLUC ####[facility] [address] [place], [place] [address]CpDr. Good Montiel Glucose [Mass/Vol] 119 mg/dL Critically high 74-106 [facility] Comment on above: Performed By: #### P OCGLUC ####[facility] [address] [place], [place] [address]GcDr. Good Montiel PROF 14(COMP METB)on 022 Albumin [Mass/Vol] 3.3 g/dL Critically low 3.5-5.0 [facility] Comment on above: Performed By: #### C TIFFANY, CMADM #### [facility] [address] [address] [address] Good Montiel Albumin/Globulin [Mass ratio] 1.0 {ratio} Normal [facility] Comment on above: Performed By: #### C TIFFANY, CMADM #### [facility] [address] [address] [address] Good Montiel ALP [Catalytic activity/Vol] 40 U/L Normal 38-126 [facility] Comment on above: Performed By: #### C TIFFANY, CMADM #### [facility] [address] [address] [address] Good Montiel ALT [Catalytic activity/Vol] 23 U/L Normal 9-52 [facility] Comment on above: Performed By: #### C TIFFANY, CMADM #### [facility] [address] [address] [address] Good Montiel Anion gap [Moles/Vol] 11.3 mmol/L Normal [facility] Comment on above: Performed By: #### C TIFFANY, CMADM #### [facility] [address] [address] [address] Good Montiel AST [Catalytic activity/Vol] 20 U/L Normal 14-36 [facility] Comment on above: Performed By: #### C TIFFANY, CMADM #### [facility] [address] [address] [address] Good Montiel Bilirubin [Mass/Vol] 0.6 mg/dL Normal 0.2-1.3 [facility] Comment on above: Performed By: #### C TIFFANY, CMADM #### [facility] [address] [address] [address] Good Montiel Calcium [Mass/Vol] 8.5 mg/dL Normal 8.4-10.2 [facility] Comment on above: Performed By: #### C MP, CMADM #### [facility] [address] [address] [address] Good Montiel Chloride [Moles/Vol] 90 mmol/L Critically low 98-107 [facility] Comment on above: Performed By: #### C MP, CMADM #### [facility] [address] [address] [address] Good Montiel CO2 [Moles/Vol] 28.5 mmol/L Normal 22.0-30.0 [facility] Comment on above: Performed By: #### C MP, CMADM #### [facility] [address] [place] [address] Dr. Good Montiel Creatinine [Mass/Vol] 0.89 mg/dL Normal 0.52-1.04 [facility] Comment on above: Performed By: #### C MP, CMADM #### [facility] [address] [address] [address] Good Montiel EGFR-AF EGYPTIAN >60 Normal >=60 [facility] Comment on above: Performed By: #### C MP, CMADM #### [facility] [address] [address] [address] Good Montiel EGFR-NON AF EGYPTIAN >60 Normal >=60 [facility] Comment on above: Performed By: #### C MP, CMADM #### [facility] [address] [address] [address] Good Montiel Globulin (S) [Mass/Vol] 3.3 g/dL Normal [facility] Comment on above: Performed By: #### C MP, CMADM #### [facility] [address] [address] [address] Good Montiel Glucose [Mass/Vol] 128 mg/dL Critically high 74-106 [facility] Comment on above: Performed By: #### C MP, CMADM #### [facility] [address] [address] [address] Good Montiel Potassium [Moles/Vol] 3.8 mmol/L Normal 3.4-5.0 [facility] Comment on above: Performed By: #### C MP, CMADM #### [facility] [address] [address] [address] Good Montiel Protein [Mass/Vol] 6.6 g/dL Normal 6.1-8.2 [facility] Comment on above: Performed By: #### C MP, CMADM #### [facility] [address] [address] [address] Good Montiel Sodium [Moles/Vol] 126 mmol/L Critically low 137-145 [facility] Comment on above: Performed By: #### C MP, CMADM #### [facility] [address] [address] [address] Good Montiel Urea nitrogen [Mass/Vol] 16.0 mg/dL Normal 7.0-17.0 [facility] Comment on above: Performed By: #### C MP, CMADM #### [facility] [address] [address] [address] Good Montiel Urea nitrogen/Creatinine [Mass ratio] 18.0 mg/mg Normal [facility] Comment on above: Performed By: #### C MP, CMADM #### [facility] [address] [place] [address] Dr. Good Montiel US CAROTID ART BILon [...] GINGER BROOKS Date: 2021-06-05 15:31 Normal [facility] XR CHEST 1 Von 06-05-2021 XR CHEST [...] GINGER BROOKS Date: 2021-06-05 09:36 Normal [facility] CT HEAD WO CONon 06-04-2021 CT HEAD [...] GINGER BROOKS Date: 2021-06-04 08:06 Normal [facility] BNPon 05-27-2021 Natriuretic peptide B (Bld) [Mass/Vol] 285.0 pg/mL Normal <=900.0 [facility] Comment on above: Performed By: #### C MADM, CMP, BNP ####[facility] [address] [place], [place] [address]Yi. Good Montiel CARDIAC LOGAN ADMITon 01-12-2 022 CK [Catalytic activity/Vol] 60 U/L Normal 30-135 [facility] Comment on above: Performed By: #### C MADM, CMP, BNP ####[facility] [address] [address]Dr. Good Dinesh CK.MB [Mass/Vol] 2.13 ng/mL Normal <=2.37 [facility] Comment on above: Performed By: #### C MADM, CMP, BNP ####[facility] [address] [address]Dr. Good Dinesh HSTROP 10.8 pg/mL Normal 4.0-35.5 [facility] Comment on above: Result Comment: CUT- OFF POINTS HAVE BEEN ESTABLISHED BASED ON THE FOURTH UNIVERSAL DEFINITIONS OF MYOCARDIAL INFARCTION. THE UPPER REFERENCE LIMIT (URL) OF TROPONIN, DEFINED THE 99TH PERCENTILE OF cTnI DISTRIBUTION IN A REFERENCE POPULATION, HAS BEEN CONFIRMED THE DECISION THRESHOLD FOR PA DIAGNOSIS. Performed By: #### C MADM, CMP, BNP ####[facility] [address] [address]Dr. Rejoo Montiel CLIF 62.0 ng/mL Critically high <=61.5 [facility] Comment on above: Performed By: #### C MADM, CMP, BNP ####[facility] [address] [address]Dr. Rejoo Montiel CBC AUTO DIFFon 05-27-2021 BASO # 0.1 103/ul Normal 0.0-0.1 [facility] Comment on above: Performed By: #### C BC ####[facility] [address] [address]Dr. Good Montiel Basophils/100 WBC (Bld) 0.8 % Normal 0.2-2.0 [facility] Comment on above: Performed By: #### C BC ####[facility] [address] [place], [place] [address]Dr. Good Montiel EO # 0.3 103/ul Normal 0.0-0.7 [facility] Comment on above: Performed By: #### C BC ####[facility] [address] [address]Dr. Good Montiel Eosinophils/100 WBC (Bld) 3.1 % Normal 0.9-7.0 [facility] Comment on above: Performed By: #### C BC ####[facility] [address] [place], [place] [address]Dr. Good Montiel Erythrocyte distribution width (RBC) [Ratio] 18.4 % Critically high 11.0-15.0 [facility] Comment on above: Performed By: #### C BC ####[facility] [address] [place], [place] [address]Dr. Good Montiel Hematocrit (Bld) [Volume fraction] 31.8 % Critically low 36.0-48.0 [facility] Comment on above: Performed By: #### C BC ####[facility] [address] [place], [place] [address]Dr. Good Montiel Hemoglobin (Bld) [Mass/Vol] 9.8 g/dL Critically low 12.0-16.0 [facility] Comment on above: Performed By: #### C BC ####[facility] [address] [place], [place] [address]Dr. Good Montiel IG # 0.09 10e3/ul Critically high 0.00-0.03 [facility] Comment on above: Performed By: #### C BC ####[facility] [address] [place], [place] [address]Dr. Good Montiel IG % 1.1 % Critically high 0.0-0.5 [facility] Comment on above: Performed By: #### C BC ####[facility] [address] [place], [place] [address]Dr. Good Montiel LYMPH # 1.6 103/ul Normal 1.2-3.8 [facility] Comment on above: Performed By: #### C BC ####[facility] [address] [place], [place] [address]Dr. Good Montiel Lymphocytes/100 WBC (Bld) 18.5 % Critically low 20.5-60.0 [facility] Comment on above: Performed By: #### C BC ####[facility] [address] [id number]. Good Montiel MANUAL DIFF REQ NO Normal [facility] Comment on above: Performed By: #### C BC ####[facility] [address] [id number]. Good Montiel MCH (RBC) [Entitic mass] 22.1 pg Critically low 26.7-34.0 [facility] Comment on above: Performed By: #### C BC ####[facility] [address] [id number]. Good Montiel MCHC (RBC) [Mass/Vol] 30.8 g/dL Normal 29.9-35.2 [facility] Comment on above: Performed By: #### C BC ####[facility] [address] [id number]. Good Dinesh MCV (RBC) [Entitic vol] 71.6 fL Critically low 81.0-99. 0 [facility] Comment on above: Performed By: #### C BC ####[facility] [address] [id number]. Good Dinesh MONO # 0.7 103/ul Normal 0.3-0.8 [facility] Comment on above: Performed By: #### C BC ####[facility] [address] [id number]. Good Dinesh Monocytes/100 WBC (Bld) 8.8 % Normal 1.7-12.0 [facility] Comment on above: Performed By: #### C BC ####[facility] [address] [id number]. Good Montiel NEUT # 5.7 103/ul Normal 1.4-6.5 [facility] Comment on above: Performed By: #### C BC ####[facility] [address] [id number]. Rejoo Montiel Neutrophils/100 WBC (Bld) 67.7 % Normal 43.0-75.0 [facility] Comment on above: Performed By: #### C BC ####[facility] [address] [place], [place] [address]Aa. Good Montiel Platelet mean volume (Bld) [Entitic vol] 8.2 fL Critically low 9.5-13.5 [facility] Comment on above: Performed By: #### C BC ####[facility] [address]60[address] [place], [place] [address]Hz. Good Montiel PLT 382 103/ul Normal 150-450 [facility] Comment on above: Performed By: #### C BC ####[facility] [address]cnu[address] [place], [place] [address]Um. Good Montiel RBC 4.44 106/ul Normal 4.20-5.40 [facility] Comment on above: Performed By: #### C BC ####[facility] [address]np97[address] [place], [place] [address]Iu. Good Montiel WBC 8.4 103/ul Normal 4.0-11.0 [facility] Comment on above: Performed By: #### C BC ####[facility] [address] [place], [place] [address] STROKE HEAD WOon 05-27-19 CT [...] GINGER BROOKS Date: 2021-05-27 07:10 Normal [facility] PROF 14(COMP METB)on 022 Albumin [Mass/Vol] 3.3 g/dL Critically low 3.5-5.0 [facility] Comment on above: Performed By: #### C MADM, CMP, BNP ####[facility] [address] [address]Dr. Good Montiel Albumin/Globulin [Mass ratio] 1.0 {ratio} Normal [facility] Comment on above: Performed By: #### C MADM, CMP, BNP ####[facility] [address] [address]Dr. Good Montiel ALP [Catalytic activity/Vol] 43 U/L Normal 38-126 [facility] Comment on above: Performed By: #### C MADM, CMP, BNP ####[facility] [address] [address]Dr. Good Montiel ALT [Catalytic activity/Vol] 27 U/L Normal 9-52 [facility] Comment on above: Performed By: #### C MADM, CMP, BNP ####[facility] [address] [address]Dr. Good Montiel Anion gap [Moles/Vol] 8.1 mmol/L Normal [facility] Comment on above: Performed By: #### C MADM, CMP, BNP ####[facility] [address] [place] [address]Dr. Good Montiel AST [Catalytic activity/Vol] 23 U/L Normal 14-36 [facility] Comment on above: Performed By: #### C MADM, CMP, BNP ####[facility] [address] [address]Dr. Good Montiel Bilirubin [Mass/Vol] 0.4 mg/dL Normal 0.2-1.3 [facility] Comment on above: Performed By: #### C MADM, CMP, BNP ####[facility] [address] [address]Dr. Good Montiel Calcium [Mass/Vol] 8.5 mg/dL Normal 8.4-10.2 [facility] Comment on above: Performed By: #### C MADM, CMP, BNP ####[facility] [address] [address]Dr. Good Montiel Chloride [Moles/Vol] 94 mmol/L Critically low 98-107 [facility] Comment on above: Performed By: #### C MADM, CMP, BNP ####[facility] [address] [address]Dr. Good Montiel CO2 [Moles/Vol] 29.9 mmol/L Normal 22.0-30.0 [facility] Comment on above: Performed By: #### C MADM, CMP, BNP ####[facility] [address] [place], [place] [address]Dr. Good Montiel Creatinine [Mass/Vol] 0.77 mg/dL Normal 0.52-1.04 [facility] Comment on above: Performed By: #### C MADM, CMP, BNP ####[facility] [address] [place], [place] [address]Dr. Good Montiel EGFR-AF EGYPTIAN >60 Normal >=60 [facility] Comment on above: Performed By: #### C MADM, CMP, BNP ####[facility] [address] [place], [place] [address]Dr. Good Montiel EGFR-NON AF EGYPTIAN >60 Normal >=60 [facility] Comment on above: Performed By: #### C MADM, CMP, BNP ####[facility] [address] [place], [place] [address]Dr. Good Montiel Globulin (S) [Mass/Vol] 3.4 g/dL Normal [facility] Comment on above: Performed By: #### C MADM, CMP, BNP ####[facility] [address] [place], [place] [address]Dr. Good Montiel Glucose [Mass/Vol] 114 mg/dL Critically high 74-106 [facility] Comment on above: Performed By: #### C MADM, CMP, BNP ####[facility] [address] [place], [place] [address]Dr. Good Montiel Potassium [Moles/Vol] 4.0 mmol/L Normal 3.4-5.0 [facility] Comment on above: Performed By: #### C BAUTISTA CMP, BNP ####[facility] [address] [address]Dr. Good Montiel Protein [Mass/Vol] 6.7 g/dL Normal 6.1-8.2 [facility] Comment on above: Performed By: #### C BAUTISTA, CMP, BNP ####[facility] [address] [address]Dr. Good Montiel Sodium [Moles/Vol] 128 mmol/L Critically low 137-145 [facility] Comment on above: Performed By: #### C BAUTISTA CMP, BNP ####[facility] [address] [address]Dr. Good Montiel Urea nitrogen [Mass/Vol] 12.0 mg/dL Normal 7.0-17.0 [facility] Comment on above: Performed By: #### C BAUTISTA CMP, BNP ####[facility] [address] [address]Dr. Good Montiel Urea nitrogen/Creatinine [Mass ratio] 15.6 mg/mg Normal [facility] Comment on above: Performed By: #### C BAUTISTA CMP, BNP ####[facility] [address] [address]DrSmooth Montiel PROTIMEon 05-27-2021 INR Coag (PPP) [Relative time] 1.01 {INR} Normal [facility] Comment on above: Performed By: #### M ANA LAURA2 #### [facility] [address] [address] [address] Good Montiel INR GUIDELINES SEE BELOW Normal [facility] Comment on above: Result Comment: JEANNINE RED INR: 2.0 - 3.0 CONDITIONS NOT LISTED BELOW 2.5 - 3.5 FOR PROSTHETIC HEART VALVE REPLACEMENT 2.5 - 3.5 RECURRENT THROMBOSIS Performed By: #### M MA2 #### [facility] [address] [address] [address] Good Montiel PT Coag (PPP) [Time] 10.9 s Normal 9.0-11.6 [facility] Comment on above: Performed By: #### M MA2 #### [facility] [address], [place] [address] Dr. Good Montiel PTTon 05-27-2021 aPTT Coag (Bld) [Time] 24.5 s Normal 22.3-36.2 [facility] Comment on above: Performed By: #### M MA2 #### [facility] [address], [place] [address] Dr. Good Montiel XR CHEST 1 Von [...] by: GINGER BROOKS Date: 2021-05-27 07:53 Normal [facility] Vital Signs Date Time Vital Sign Value Performing Clinician Facility 10-11-2024 15:48-0400 Body height 149.9 cm Wily Prado MD Work Phone: [facility] 10-11-2024 15:48-0400 Body mass index (BMI) [Ratio] 34.74 kg/m2 Wily Prado MD Work Phone: [facility] 10-11-2024 15:48-0400 Body weight 78.02 kg Wily Prado MD Work Phone: [facility] 10-11-2024 15:48-0400 Diastolic blood pressure 60 mm[Hg] Wily Prado MD Work Phone: [facility] 10-11-2024 15:48-0400 Heart rate 64 /min Wily Prado MD Work Phone: [facility] 10-11-2024 15:48-0400 SaO2% (BldA) [Mass fraction] 94 % Wily Prado MD Work Phone: [facility] 10-11-2024 15:48-0400 Systolic blood pressure 130 mm[Hg] Wily Prado MD Work Phone: [facility] 05-11-2024 08:34-0500 Diastolic blood pressure 60 mm[Hg] Wily Prado MD Work Phone: [facility] 05-11-2024 08:34-0500 Systolic blood pressure 160 mm[Hg] Wily Prado MD Work Phone: [facility] 05-08-2024 08:24-0500 Body height 149.9 cm Wily Prado MD Work Phone: [facility] 05-08-2024 08:24-0500 Body mass index (BMI) [Ratio] 33.33 kg/m2 Wily Prado MD Work Phone: [facility] 05-08-2024 08:24-0500 Body weight 74.84 kg Wily Prado MD Work Phone: [facility] 05-08-2024 08:24-0500 Diastolic blood pressure 92 mm[Hg] Wily Prado MD Work Phone: [facility] 05-08-2024 08:24-0500 Heart rate 61 /min Wily Prado MD Work Phone: [facility] 05-08-2024 08:24-0500 Respiratory rate 17 /min Wily Prado MD Work Phone: [facility] 05-08-2024 08:24-0500 SaO2% (BldA) [Mass fraction] 98 % Wily Prado MD Work Phone: [facility] 05-08-2024 08:24-0500 Systolic blood pressure 184 mm[Hg] Wily Prado MD Work Phone: [facility] 01-17-2024 10:04-0400 Body height 149.9 cm Wily Prado MD Work Phone: [facility] 01-17-2024 10:04-0400 Body mass index (BMI) [Ratio] 33.12 kg/m2 Wily Prado MD Work Phone: [facility] 01-17-2024 10:04-0400 Body weight 74.39 kg Wily Prado MD Work Phone: [facility] 01-17-2024 10:04-0400 Diastolic blood pressure 84 mm[Hg] Wily Prado MD Work Phone: [facility] 01-17-2024 10:04-0400 Heart rate 58 /min Wily Prado MD Work Phone: [facility] 01-17-2024 10:04-0400 SaO2% (BldA) [Mass fraction] 97 % Wily Prado MD Work Phone: [facility] 01-17-2024 10:04-0400 Systolic blood pressure 138 mm[Hg] Wily Prado MD Work Phone: [facility] 02-01-2023 10:58-0400 Body temperature 97.2 [degF] MD Wily Prado Work Phone: [facility] 02-01-2023 10:58-0400 Body weight 78.92 kg MD Wily Prado Work Phone: [facility] 02-01-2023 10:58-0400 Diastolic blood pressure 66 mm[Hg] MD Wily Prado Work Phone: [facility] 02-01-2023 10:58-0400 Heart rate 67 /min MD Wily Prado Work Phone: [facility] 02-01-2023 10:58-0400 Respiratory rate 16 /min MD Wily Prado Work Phone: [facility] 02-01-2023 10:58-0400 SaO2% (BldA) [Mass fraction] 95 % MD Wily Prado Work Phone: [facility] 02-01-2023 10:58-0400 Systolic blood pressure 171 mm[Hg] MD Wily Prado Work Phone: [facility] 11-02-2022 09:46-0400 Body temperature 97.8 [degF] MD Wily Prado Work Phone: [facility] 11-02-2022 09:46-0400 Body weight 78.01 kg MD Wily Prado Work Phone: [facility] 11-02-2022 09:46-0400 Diastolic blood pressure 79 mm[Hg] MD Wily Prado Work Phone: [facility] 11-02-2022 09:46-0400 Heart rate 64 /min MD Wily Prado Work Phone: [facility] 11-02-2022 09:46-0400 Respiratory rate 16 /min MD Wily Prado Work Phone: [facility] 11-02-2022 09:46-0400 SaO2% (BldA) [Mass fraction] 95 % MD Wily Prado Work Phone: [facility] 11-02-2022 09:46-0400 Systolic blood pressure 179 mm[Hg] MD Wily Prado Work Phone: [facility] 07-30-2022 10:49-0400 Body temperature 97.7 [degF] MD Wily Prado Work Phone: [facility] 07-30-2022 10:49-0400 Body weight 81 kg MD Wily Prado Work Phone: [facility] 07-30-2022 10:49-0400 Diastolic blood pressure 81 mm[Hg] MD Wily Prado Work Phone: [facility] 07-30-2022 10:49-0400 Heart rate 64 /min MD Wily Prado Work Phone: [facility] 07-30-2022 10:49-0400 Respiratory rate 16 /min MD Wily Prado Work Phone: [facility] 07-30-2022 10:49-0400 SaO2% (BldA) [Mass fraction] 96 % MD Wily Prado Work Phone: [facility] 07-30-2022 10:49-0400 Systolic blood pressure 166 mm[Hg] MD Wily Prado Work Phone: [facility] 04-26-2022 09:37-0500 Body temperature 97.8 [degF] MD Wily Prado Work Phone: [facility] 04-26-2022 09:37-0500 Body weight 80.4 kg MD Wily Prado Work Phone: [facility] 04-26-2022 09:37-0500 Diastolic blood pressure 71 mm[Hg] MD Wily Prado Work Phone: [facility] 04-26-2022 09:37-0500 Heart rate 60 /min MD Wily Prado Work Phone: [facility] 04-26-2022 09:37-0500 Respiratory rate 16 /min MD Wily Prado Work Phone: [facility] 04-26-2022 09:37-0500 SaO2% (BldA) [Mass fraction] 93 % MD Wily Prado Work Phone: [facility] 04-26-2022 09:37-0500 Systolic blood pressure 145 mm[Hg] MD Wily Prado Work Phone: [facility] 02-22-2022 11:08-0400 Body temperature 98 [degF] MD Wily Prado Work Phone: [facility] 02-22-2022 11:08-0400 Body weight 80.73 kg MD Wily Prado Work Phone: [facility] 02-22-2022 11:08-0400 Diastolic blood pressure 56 mm[Hg] MD Wily Prado Work Phone: [facility] 02-22-2022 11:08-0400 Heart rate 65 /min MD Wily Prado Work Phone: [facility] 02-22-2022 11:08-0400 Respiratory rate 16 /min MD Wily Prado Work Phone: [facility] 02-22-2022 11:08-0400 SaO2% (BldA) [Mass fraction] 95 % MD Wily Prado Work Phone: [facility] 02-22-2022 11:08-0400 Systolic blood pressure 163 mm[Hg] MD Wily Prado Work Phone: [facility] 01-12-2022 11:24-0400 Body temperature 97.9 [degF] MD Wily Prado Work Phone: [facility] 01-12-2022 11:24-0400 Body weight 87.86 kg MD Wily Prado Work Phone: [facility] 01-12-2022 11:24-0400 Diastolic blood pressure 63 mm[Hg] MD Wily Prado Work Phone: [facility] 01-12-2022 11:24-0400 Heart rate 58 /min MD Wily Prado Work Phone: [facility] 01-12-2022 11:24-0400 Respiratory rate 18 /min MD Wily Prado Work Phone: [facility] 01-12-2022 11:24-0400 SaO2% (BldA) [Mass fraction] 97 % MD Wily Prado Work Phone: [facility] 01-12-2022 11:24-0400 Systolic blood pressure 169 mm[Hg] MD Wily Prado Work Phone: [facility] 01-12-2022 11:14-0400 Body height 152.4 cm MD Wily Prado Work Phone: [facility] 02-24-2021 13:00-0400 Body height 152.4 cm Mikie West Other [employer] Other 02-24-2021 13:00-0400 Body mass index (BMI) [Ratio] 37.1 kg/m2 Mikie West Other [employer] Other 02-24-2021 13:00-0400 Body temperature 97.6 [degF] Mikie West Other [employer] Other 02-24-2021 13:00-0400 Body weight 86.18 kg Mikie West Other [employer] Other 02-24-2021 13:00-0400 Diastolic blood pressure 67 mm[Hg] Mikie Serranor Other [employer] Other 02-24-2021 13:00-0400 Systolic blood pressure 166 mm[Hg] Mikie Mijaresrer Other [employer] Other Encounters Encounter Date Encounter Type Care Provider Facility Start: 12-14-2024 End: 12-14-2024 Refill Latonya GE Work Phone: [facility] Comment on above: Other insomnia Start: 12-10-2024 End: 12-11-2024 Refill Wily Prado MD Work Phone: [facility] Comment on above: Other insomnia Start: 11-18-2024 End: 11-19-2024 Refill Wily Prado MD Work Phone: [facility] Comment on above: Essential hypertensi on Start: 11-09-2024 End: 11-09-2024 Refill Wily Prado MD Work Phone: [facility] Comment on above: Other insomnia Start: 10-19-2024 End: 10-19-2024 ambulatory WILY PRADO Not Available Start: 10-12-2024 End: 10-12-2024 Telephone encounter Latonya GE Work Phone: [facility] Start: 10-11-2024 End: 10-11-2024 ambulatory WILY PRADO Not Available Start: 10-11-2024 End: 10-11-2024 Office outpatient visit 25 minutes Wily Prado MD Work Phone: [facility] Comment on above: Diabetes mellitus wi th peripheral vascular disease (CMS/HCC) (Primary Dx); Epilepsy, unspecified, not intractable, without status epilepticus; Other secondary pulmonary hypertension; Heart failure, unspecified (CMS/HCC); Benign hypertension (CMS/HCC); Grade II diastolic dysfunction; Type 2 diabetes mellitus with diabetic polyneuropathy, with long-term current use of insulin (CMS/HCC); Bilateral carotid bruits Start: 10-11-2024 End: 10-12-2024 Telephone encounter Wily Prado MD Work Phone: [facility] Start: 10-09-2024 End: 10-11-2024 Refill Wily Prado MD Work Phone: [facility] Comment on above: Other insomnia Start: 08-09-2024 End: 08-09-2024 Refill Mariia Dos Santos LPN [facility] Comment on above: Other insomnia Start: 05-11-2024 End: 05-11-2024 Patient encounter procedure Wily Prado MD Work Phone: [facility] Comment on above: Essential hypertensi on (CMS/HCC) Start: 05-11-2024 End: 05-11-2024 ambulatory WILY PRADO Not Available Start: 05-08-2024 End: 05-08-2024 Bamboo flowsheet Wily Prado MD Work Phone: [facility] Start: 05-08-2024 End: 05-08-2024 Bamboo flowsheet Wily Prado MD Work Phone: [facility] Start: 05-08-2024 End: 05-08-2024 Office outpatient visit 25 minutes Wily Prado MD Work Phone: [facility] Comment on above: 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, with long-term current use of insulin ([facility]/HCC) (Primary Dx); Mixed hyperlipidemia (CMS/HCC); Agitation states as acute reaction to exceptional (gross) stress; Essential hypertension (CMS/HCC); Other insomnia; Hypertensive emergency (CMS/HCC) Start: 05-08-2024 End: 05-08-2024 ambulatory RUGEN M JOHAN Not Available Start: 05-04-2024 End: 05-04-2024 Refill Madiha [place] MA [facility] Comment on above: Other insomnia Start: 03-26-2024 End: 03-26-2024 Refill Madiha [place] MA [facility] Comment on above: Other insomnia Start: 03-20-2024 End: 03-20-2024 Refill Madiha Caden MA [facility] Comment on above: Other insomnia Start: 02-15-2024 End: 02-15-2024 Refill Madiha [place] MA [facility] Comment on above: Other insomnia Start: 02-10-2024 End: 02-10-2024 Refill Latonya GE Work Phone: [facility] Comment on above: 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, with long-term current use of insulin (CMS/[facility]) Essential hypertensi on ([facility]) Start: 01-17-2024 End: 01-17-2024 Office outpatient visit 25 minutes Wily Prado MD Work Phone: [facility] Comment on above: Lumbar spondylosis ( Primary Dx); Other insomnia; 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 claudication Start: 01-17-2024 End: 01-17-2024 ambulatory RUGEN M JOHAN Not Available Start: 01-11-2024 End: 01-11-2024 Bamboo flowsheet Jalyn Guan PT [facility] Start: 01-11-2024 End: 01-11-2024 Bamboo flowsheet Jalyn Guan PT [facility] Start: 01-11-2024 End: 01-11-2024 ambulatory Jalyn Guan PT [facility] Comment on above: Muscle spasm of back (Primary Dx); Bilateral hip pain; Acute bilateral low back pain with sciatica, sciatica laterality unspecified; Lumbar spondylosis Start: 01-09-2024 End: 01-09-2024 Bamboo flowsheet Eddie Ambrocio HOSPITALIST NOCTURNIST PHYSICIAN [facility] Start: 01-09-2024 End: 01-09-2024 Bamboo flowsheet Eddie Ambrocio HOSPITALIST NOCTURNIST PHYSICIAN [facility] Start: 01-09-2024 End: 01-09-2024 ambulatory Eddie Marierebel HOSPITALIST NOCTURNIST PHYSICIAN [facility] Comment on above: Muscle spasm of back (Primary Dx); Bilateral hip pain; Acute bilateral low back pain with sciatica, sciatica laterality unspecified; Lumbar spondylosis Start: 01-05-2024 End: 01-05-2024 ambulatory London German HOSPITALIST NOCTURNIST PHYSICIAN [facility] Comment on above: Muscle spasm of back (Primary Dx); Bilateral hip pain; Acute bilateral low back pain with sciatica, sciatica laterality unspecified; Lumbar spondylosis Start: 01-02-2024 End: 01-02-2024 ambulatory JALYN GUAN Not Available Start: 12-29-2023 End: 12-29-2023 ambulatory LONDON CRABTREE Not Available Start: 12-27-2023 End: 12-27-2023 ambulatory JALYN GUAN Not Available Start: 12-26-2023 Assay of hemosiderin , quant London German HOSPITALIST NOCTURNIST PHYSICIAN [facility] Start: 12-26-2023 End: 12-26-2023 ambulatory WILY PRADO Not Available Start: 12-20-2023 End: 12-20-2023 ambulatory LOGAN KAUR Not Available Start: 09-16-2023 End: 09-16-2023 Patient encounter procedure MD Wily Prado Work Phone: [facility] [place] Work Phone: Start: 09-16-2023 End: 09-16-2023 ambulatory MD Wily Prado Work Phone: [facility] Work Phone: Start: 06-28-2023 End: 06-28-2023 ambulatory London Crabtree HOSPITALIST NOCTURNIST PHYSICIAN [facility] Comment on above: Acute bilateral low back pain with sciatica, sciatica laterality unspecified (Primary Dx); Lumbar spondylosis; Bilateral hip pain Start: 06-28-2023 Bamboo flowsheet London Crabtree PT A [facility] Start: 06-28-2023 Bamboo flowsheet London Crabtree PT A [facility] Start: 06-21-2023 End: 06-21-2023 ambulatory Som Sheffield PT Work Phone: [facility] Comment on above: Acute bilateral low back pain with sciatica, sciatica laterality unspecified (Primary Dx); Lumbar spondylosis; Bilateral hip pain Start: 06-16-2023 End: 06-16-2023 ambulatory Som Hernandezton PT Work Phone: [facility] Comment on above: Acute bilateral low back pain with sciatica, sciatica laterality unspecified (Primary Dx); Lumbar spondylosis; Bilateral hip pain Start: 06-16-2023 Bamboo flowsheet Som Chin Terrence kston PT Work Phone: [facility] Start: 06-16-2023 Bamboo flowsheet Som T Terrence kston PT Work Phone: [facility] Start: 06-16-2023 Telephone encounter Wily Swenson MD Work Phone: [facility] Comment on above: Med Refill ([facility]AM[facility]OL TO [facility] [place]) Acute bilateral low back pain with bilateral sciatica (Primary Dx) Start: 02-01-2023 ambulatory MD Wily landers Work Phone: [facility] Work Phone: Start: 02-01-2023 Registered Recurring MD Wily Prado Work Phone: [facility] Work Phone: Start: 11-02-2022 End: 11-02-2022 ambulatory MD Wily Prado Work Phone: [facility] Work Phone: Start: 11-02-2022 End: 11-02-2022 Registered Recurring MD Wily Prado Work Phone: [facility] Work Phone: Start: 07-30-2022 End: 07-30-2022 ambulatory MD Wily Prado Work Phone: [facility] Work Phone: Start: 07-30-2022 End: 07-30-2022 Registered Recurring MD Wily Prado Work Phone: [facility] Work Phone: Start: 04-26-2022 End: 04-26-2022 ambulatory MD Wily Prado Work Phone: [facility] Work Phone: Start: 04-26-2022 End: 04-26-2022 Registered Recurring MD [facility] Start: 02-22-2022 End: 02-22-2022 ambulatory MD Wily Prado Work Phone: [facility] Work Phone: Start: 02-22-2022 End: 02-22-2022 Registered Recurring MD [facility] Prado [facility] Start: 02-17-2022 End: 02-17-2022 ambulatory UNKNOWN PROVIDER Facility:[facility] Start: 02-17-2022 End: 02-17-2022 Emergency department patient visit [facility] Emergency Triage, Treat and Transport Comment on above: Arrived Start: 01-21-2022 End: 01-21-[address] NATALIA LYN Facility:[facility] Start: 01-20-2022 End: 01-20-[address] MIKIE GARCIA Facility:[facility] Start: 01-20-2022 End: 01-20-2022 Departed Referred MD Wily Prado Work Phone: [facility] [place] Start: 01-15-2022 End: 01-19-2022 ambulatory UNKNOWN PROVIDER Facility:[facility] Start: 01-14-2022 End: 01-14-[address] LOGAN GATES Facility:[facility] Start: 01-12-2022 End: 01-12-2022 Registered Recurring MD [facility]ado [facility] Start: 01-12-2022 Registered Recurring MD [facility]ado [facility] Start: 01-04-2022 End: 01-04-[address] GINGER BROOKS Facility:[facility] Start: 12-24-2021 End: 12-24-2021 ambulatory AUNG ZIMMERMAN Facility:[facility] Start: 11-24-2021 End: 11-24-[address] LOGAN GATES Facility:[facility] Start: 11-13-2021 Encounter for genera l adult medical examination without abnormal findings DR LATONYA JOSEPH [facility] Start: 11-10-2021 End: 11-11-[address] ARIAN VARGAS Facility:[facility] Start: 11-10-2021 End: 11-11-2021 Encounter for general adult medical examination without abnormal findings DR ARIAN VARGAS Facility:[facility] Start: 08-12-2021 End: 08-13-2021 ambulatory LOGAN KAUR Facility:[facility] Start: 06-10-2021 End: 06-10-[address] NATALIA LYN Facility:[facility] Start: 06-05-2021 End: 06-06-[address] FELIBERTO LEO Facility:[facility] Start: 06-04-2021 End: 06-04-[address] GINGER BROOKS Facility:[facility] Start: 05-27-2021 End: 05-27-2021 ambulatory ZAC HANKINS Facility:[facility] Start: 02-24-2021 Office outpatient vi sit 15 minutes Mikie West [facility] Procedures Date Procedure Procedure Detail Performing Clinician Start: 10-11-2024 Hemoglobin glycosylated a1c Wily Prado MD Work Phone: Start: 09-16-2023 XR pre/post mri xray MD Wily Prado Work Phone: Start: 09-16-2023 MR lumbar spine wo con MD Wily Prado Work Phone: Start: 08-25-2023 History of carotid endarterectomy H/O carotid endarterectomy London Crabtree HOSPITALIST NOCTURNIST PHYSICIAN Start: 01-05-2022 Colonoscopy Som Sheffield PT Work Phone: History of carotid endarterectomy H/O carotid endarterectomy MD Wily Prado Work Phone: Plan of Treatment Date Care Activity Detail Author Start: 01-06-2032 Screening for malign ant neoplasm of colon [facility] Start: 12-13-2026 Glaucoma screening Diabetes: R etinopathy Screening [facility] Start: 11-30-2026 Glaucoma screening Diabetes: R etinopathy Screening [facility] Start: 10-28-2025 Cholesterol [Mass/volume] in Serum or Plasma Cholesterol [facility] Start: 04-02-2025 End: 04-02-2025 Patient encounter procedure [facility] Start: 01-14-2025 Influenza vaccination Influenza Vacc ine (#1) [facility] Start: 01-11-2025 Hemoglobin A1c measurement Diabetes: Hemoglobin A1C [facility] Start: 12-25-2024 Medicare Annual Well ness (AWV) Medicare Annual Wellness (AWV) [facility] Start: 10-11-2024 End: 10-11-2024 Patient encounter procedure 10/11/2024 3:30 PM EDT Office Visit [facility] [address] [facility] [address] [place] [id number] Wily Prado MD [address] [place] [facility] [address] [place] [address] [facility] Start: 10-11-2024 End: 10-11-2025 US.doppler Carotid arteries - bilateral Vascular US carotid artery duplex bilateral Imaging Routine Bilateral carotid bruits Expected: 10/11/2024, Expires: 10/11/2025 [facility] Work Phone: Comment on above: Expected: 10/11/2024 , Expires: 10/11/2025 Start: 05-11-2024 End: 05-11-2024 Clinical Support 05/11/2024 10:00 AM EST Clinical Support [facility] [address] [place] [address] [place] [address] [facility] Start: 05-10-2024 Urine screening for protein Diabetes: Urine Protein Screening [facility] [facility] Start: 05-08-2024 End: 05-08-2024 Patient encounter procedure [facility] Comment on above: Arrived Start: 04-17-2024 End: 04-17-2024 Patient encounter procedure [facility] Start: 03-27-2024 Hemoglobin A1c measurement Diabetes: Hemoglobin A1C [facility] Start: 01-17-2024 End: 01-17-2024 Patient encounter procedure 01/17/2024 10:00 AM EDT Office Visit [facility] [address] [facility] [address] [place] [address] Wily Prado MD [address] [place] [address] [facility] Start: 01-15-2024 Influenza vaccination Influenza Vacc ine (#1) [facility] Start: 01-11-2024 End: 01-11-2024 ambulatory 01/11/2024 10:30 AM EDT Treatment [facility] [address] [place] [address] Jalyn uGan, PT [facility] Start: 01-09-2024 End: 01-09-2024 ambulatory [facility] Comment on above: Arrived Start: 12-28-2023 Medicare Annual Well ness (AWV) Medicare Annual Wellness (AWV) [facility] Start: 07-05-2023 End: 07-05-2023 ambulatory 07/05/2023 2:30 PM EST Treatment [facility] [address] [place] [address] London Crabtree, JUNIOR [facility] Start: 06-30-2023 End: 06-30-2023 ambulatory [facility] Start: 06-29-2023 Hemoglobin A1c measurement Diabetes: Hemoglobin A1C [facility] Comment on above: Postponed from 03/29 (Other Medical Reasons) Start: 06-28-2023 End: 06-28-2023 ambulatory [facility] Comment on above: Arrived Start: 06-23-2023 End: 06-23-2023 ambulatory [facility] Start: 06-21-2023 End: 06-21-2023 ambulatory 06/21/2023 2:30 PM EST Treatment [facility] [address] [facility] [address] [place] [address] Som Sheffield, PT [address] [facility] [address] [place] [address] [facility] Start: 06-16-2023 End: 06-16-2023 ambulatory 06/16/2023 2:00 PM EST Treatment [facility] [address] [facility] [address] [place] [address] Som Sheffield, PT [address] [facility] [address] [place] [address] Arrived [facility] Comment on above: Arrived Start: 11-22-2022 Screening for malign ant neoplasm of colon FIT-DNA [facility] Start: 10-14-2022 Annual Wellness Visi t (G0439) Annual Wellness Visit (G0439) [facility] Start: 08-30-2022 [facility] Start: 08-23-2022 [facility] Start: 02-28-2022 Glaucoma screening Diabetes: R etinopathy Screening [facility] Start: 02-13-2022 Influenza vaccination Influenza Vacc ine (#1) [facility] Start: 02-04-2022 [facility] Start: 02-02-2022 COVID-19 Vaccine (5 - Booster for Pfizer series) COVID-19 Vaccine (5 - Booster for Pfizer series) [facility] Start: 01-28-2022 [facility] Start: 11-10-2021 Screening for malign ant [...] t blood in single stool specimen FIT [facility] Start: 07-26-1997 Screening for malign ant neoplasm of colon CRC Screening [facility] Start: 07-26-1965 Hepatitis C screening Hepatitis C An tibody [facility] Start: 07-26-1965 Tetanus + diphtheria + acellular pertussis vaccine (product) Tdap Booster [facility] Start: 1947 Screening for malign ant neoplasm of colon [facility] Start: 1947 Screening for malign ant neoplasm of lung Lung Cancer Screening Shared Decision Making [facility] metabo lic 1999 panel - Serum or Plasma [facility] Comprehensive metabo lic 1999 panel - Serum or Plasma [facility] Comprehensive metabo lic 1999 panel - Serum or Plasma [facility] Ferritin [Mass/volum e] in Serum or Plasma [facility] Ferritin [Mass/volum e] in Serum or Plasma [facility] Work Phone: [facility] Immunizations Immunization Date Immunization Notes Care Provider Fa [facility] 01-06-2024 influenza, high dose seasonal, preservative-free Wily Prado MD Work Phone: [facility] 01-06-2024 influenza virus vaccine, unspecified formulation Wily Prado MD Work Phone: [facility] 06-17-2023 RSV, recombinant, protein subunit RSVpreF, adjuvant reconstitu, 120mcg/0.5mL, PF (Arexvy) Som Sheffield PT Work Phone: [facility] 03-21-2023 Influenza, Seasonal, Quadrivalent, Adjuvanted Som Sheffield PT Work Phone: [facility] 03-21-2023 influenza virus vaccine, unspecified formulation London Crabtree PTA [facility] 03-19-2022 influenza, high dose seasonal, preservative-free Som Sheffield PT Work Phone: [facility] 01-04-2022 diphtheria, tetanus toxoids and pertussis vaccine [facility] 01-04-2022 tetanus toxoid, redu blake diphtheria toxoid, and acellular pertussis vaccine, adsorbed Som Sheffield PT Work Phone: [facility] 10-30-2021 tetanus toxoid, redu blake diphtheria toxoid, and acellular pertussis vaccine, adsorbed Som Sheffield PT Work Phone: [facility] 04-21-2021 Influenza, seasonal vaccine, quadrivalent, adjuvanted, 0.5mL dose, preservative free (AKB=718) [facility] 04-21-2021 Seasonal, trivalent, recombinant, injectable influenza vaccine, preservative free Som Sheffield PT Work Phone: [facility] 04-21-2021 influenza virus vaccine, unspecified formulation [facility] 11-07-2020 pneumococcal conjuga te vaccine, 13 valent [facility] 11-07-2020 zoster vaccine recombinant Et3 [facility] 07-14-2020 COVID-19 Vaccine Pfi zer - Documentation Purposes Only Mikie West Other [facility] 06-22-2020 COVID-19 Vaccine Pfi zer - Documentation Purposes Only Mikie West Other [facility] 2018 pneumococcal polysaccharide vaccine, 23 valent Mikie West Other [facility] 06-13-2009 novel [id number], preservative-free, injectable [facility] Payers Date Payer Category Payer Self-pay [id number] 2022 Private Health Insurance [employer] Mo mber [id number] 2022 Unknown [id number] .[id number] 2012 Medicare [id number] 1.13.56.2. [id number] 1959 Medicare [id number] 2.16.840.1.923280.19 1959 Unknown [id number] 2.16.840.1.128093.19 1947 Unknown [id number] 2.16.840.1.848493.3.579.2 .593 1947 Unknown [id number] 2.16.840.1.451192.3.579.2 .593 1947 Unknown [id number] 2.16.840.1.347818.3.579.2 .593 1947 Unknown [id number] 2.16.840.1.210058.3.579.2 .593 1947 Unknown [id number] 2.16.840.1.441779.3.579.2 .593 1947 Unknown [id number] 2.16.840.1.803492.3.579.2 .593 1947 Unknown [id number] 2.16.840.1.075140.3.579.2 .593 1947 Unknown [id number] 2.16.840.1.898050.3.579.2 .593 1947 Unknown [id number] 2.16.840.1.089046.3.579.2 .593 1947 Unknown [id number] 2.16.840.1.876494.3.579.2 .593 1947 Unknown [id number] 2.16.840.1.793675.3.579.2 .593 1947 Unknown [id number] 2.16.840.1.680179.3.579.2 .593 1947 Unknown [id number] 2.16.840.1.975587.3.579.2 .732 1947 Unknown [id number] 2.16.840.1.994565.3.579.2 .732 1947 Unknown [id number] 2..840.1.266530.3.579.2 .125 1947 Unknown [id number] 2..840.1.330957.3.579.2 .125 1947 Unknown [id number] 2.16.840.1.209669.3.579.2 .1259 1947 Unknown [id number] 2.16.840.1.784844.3.579.2 .1259 1947 Unknown [id number] 2.16.840.1.214454.3.579.2 .1259 1947 Unknown [id number] 2.16.840.1.323428.3.579.2 .125 1947 Unknown [id number] 2.16.840.1.237966.3.579.2 .1259 1947 Unknown [id number] 2.16.840.1.335309.3.579.2 .1259 1947 Unknown [id number] 2.16.840.1.141516.3.579.2 .9 1947 Unknown [id number] 2.16.840.1.736526.3.579.2 .1258 1947 Unknown [id number] 2.16.840.1.337005.3.579.2 .9 1947 Unknown [id number] 2.16.840.1.903289.3.579.2 .1258 1947 Unknown [id number] 2.16.840.1.550283.3.579.2 .9 1947 Unknown [id number] 2.16.840.1.768822.3.579.2 .196 Unknown [id number] 2.16.840.1.498522.3.579.2 .531 Social History Date Type Detail Facility Unknown if ever smoked [facility] Other Start: 05-10-2023 End: 10-11-2024 Sex Assigned At [facility] Start: 01-12-2022 End: 02-01-2023 Tobacco smoking status [facility] Smoker (finding) [facility] Start: 1945 Sex Assigned At Female [facility] Tobacco smoking stat us [facility] Tobacco smoking consumption unknown [facility] Start: 1945 Sex Assigned At Not on file [facility] Start: 12-27-2022 End: 05-08-2024 Tobacco smoking status [facility] Smokes tobacco daily [facility] History of tobacco use Cigarette Smoker [facility] Start: 12-27-2022 End: 10-11-2024 Cigarettes smoked current (pack per day) - Reported 1.5 [facility] Start: 12-27-2022 End: 05-08-2024 Tobacco use and exposure Smokeless tobacco non-user [facility] Start: 05-10-2023 End: 10-11-2024 Alcohol intake Lifetime non-drinker (finding) [facility] Start: 11-10-2022 Tobacco Comment 11-20 cigs/day [facility] Start: 11-10-2022 Alcohol Comment Caffeine intake: more than 4 cups per day [facility] Medical Equipment Procedure Code Equipment Code Equipment Origin al Text Equipment Identifier Dates Endarterectomy, carotid Cardiovascular patch, animal-derived ()[id number] [facility] Start: 10-02-2020 Angioplasty of carotid artery with insertion of stent Bare-metal carotid artery stent ()[id number] [facility] Start: 12-17-2019 USE DIRECTED TWICE A DAY [id number] Start: 12-20-2022 1 each by Other route in the morning and 1 each before bedtime. [id number] USE TO TEST BLOO D SUGAR TWICE DAILY [id number] Start: 06-27-2023 Use as instructed [id number] Start: 05-31-2024 USE INSTRUCTED [id number] Start: 08-20-2024 USE TO TEST BLOO D SUGAR TWICE DAILY [id number] Start: 12-10-2024 Goals Date Patient Goal Desired Activity /State Functional Status Date Assessment Result Facility 10-11-2024 Patient Health [facility] ionnaire 2 item (PHQ-2) [Reported] [facility] Clinical Notes 02-24-2021 to 12-14-2024 Telephone Encounter - LUMA Garcia - 12/14/2024 12:17 PM EDTTelephone Encounter - LUMA Garcia - 12/14/2024 12:17 PM EDTTelephone Encounter - VENANCIO SMALL - 12/14/2024 10:03 AM EDT Note Date & Type Note Facility 12-14-2024 Telephone encount er Note Resent, though it does show that [facility] filled this, hopefully she will not have an issue getting this at [facility] and the other Rx will be cancelled. [facility] 12-14-2024 Miscellaneous Notes Formattin g of this note might be different from the original. Resent, though it does show that [facility] filled this, hopefully she will not have an issue getting this at [facility] and the other Rx will be cancelled. [facility] documented in this encounter [facility] 12-14-2024 Telephone encount er Note [facility]eds [facility] go to [facility] 12-11-2024 Telephone encount er Note OARRS reviewed, Rx sent into patient's pharmacy. [facility] 12-11-2024 Miscellaneous Notes Formattin g of this note might be different from the original. [facility]ARRS reviewed, Rx sent into patient's pharmacy. documented in this encounter [facility] 11-19-2024 Telephone encount er Note Amlodipine sent. [facility] 11-19-2024 Miscellaneous Notes Formattin g of this note might be different from the original. Amlodipine sent. documented in this encounter [facility] 11-09-2024 Telephone encount er Note OARRS reviewed, Rx sent into patient's pharmacy. [facility] 11-09-2024 Miscellaneous Notes Formattin g of this note might be different from the original. OARRS reviewed, Rx sent into patient's pharmacy. [facility] 10/11/24 RF 10/11/24 documented in this encounter [facility] 11-09-2024 Telephone encount er Note OV 10/11/24 RF 10/11/24 [facility] 10-12-2024 Telephone encount er Note See TE from today. Rx will be filled at [facility]. [facility] 10-12-2024 Miscellaneous Notes Formattin g of this note might be different from the original. See TE from today. Rx will be filled at [facility]. Patient need refill on ALPRAZolam (Xanax) 0.5 MG . She asked if that could be sent to [facility] in [place]. documented in this encounter [facility] 10-12-2024 Telephone encount er Note [facility] called, questioning Xanax being sent to [facility]. Advised it was supposed to be filled at [facility], pt did want it filled there, not [facility]. They have a refill on file for her for 30 day supply and will proceed with filling it. They will contact [facility] and let them know that they are filling the Rx for the patient. [facility] 10-12-2024 Miscellaneous Notes Formattin g of this note might be different from the original. [facility] called, questioning Xanax being sent to [facility]. Advised it was supposed to be filled at [facility], pt did want it filled there, not [facility]. They have a refill on file for her for 30 day supply and will proceed with filling it. They will contact [facility] and let them know that they are filling the Rx for the patient. documented in this encounter [facility] 10-11-2024 Telephone encount er Note Patient need refill on ALPRAZolam (Xanax) 0.5 MG . She asked if that could be sent to [facility] in [place]. [facility] 10-11-2024 History of Presen t illness Narrative Associated Problem(s): Grade II diastolic dysfunction Needs better BP control Associated Problem(s): Benign hypertension (CMS/HCC) Our specific goals, for your hypertension, is [...] taking them as prescribed. DASH diet handouts Associated Problem(s): Diabetes mellitus with peripheral vascular disease (CMS/HCC) No Tobacco use Follow ADA 1800 diet [...] and importance of healthy diet and exercise. Associated Problem(s): Heart failure, unspecified (CMS/HCC) Continue current meds. Associated Problem(s): Epilepsy, unspecified, not intractable, without status epilepticus Controlled with meds Images from the original note were not included. HPI Diabetes Additional comments: Last A1c was 5.2 Last edited by Madiha Negrete MA on 10/11/2024 8:44 AM. Subjective Patient ID: Nuvia Martin is a 79 y.o. female who presents for Diabetes (Last A1c was 5.2 ). Pt states her BP is still running the same even with the new medication amlodipine , for her at home Pt is also having constipation and gas, she has tried laxatives, eating more fruit, things with lots of fiber, increase her with intake , this has been going on for a couple of months now Poss wanting lab work for sodium Pt BP today is 160/62 repeat 130/60 Diabetes She presents for her follow-up diabetic visit. She has type 2 diabetes mellitus. No MedicAlert identification noted. Her disease course has been stable. There are no hypoglycemic associated symptoms. Pertinent negatives for hypoglycemia include no confusion, dizziness, nervousness/anxiousness, speech difficulty or tremors. Pertinent negatives for diabetes include no chest pain, no fatigue and no polydipsia. There are no hypoglycemic complications. There are no diabetic complications. Risk factors for coronary artery disease include diabetes mellitus. Current diabetic treatment includes oral agent (dual therapy). Her weight is stable. She is following a diabetic diet. Meal planning includes avoidance of concentrated sweets. She has not had a previous visit with a dietitian. She participates in exercise intermittently. There is no change in her home blood glucose trend. An LESLEY inhibitor/angiotensin II receptor latha is being taken. 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 Current Outpatient Medications on File Prior to Visit Medication Sig Dispense Refill Alpha Lipoic Acid 200 MG capsule Take 1 tablet by mouth 1 (one) time each day. alpha tocopherol (Vitamin E) 400 units capsule Take 2 capsules by mouth 1 (one) time each day at the same time. amLODIPine (Norvasc) 10 MG tablet TAKE 1 TABLET (10 MG) BY MOUTH DAILY. 100 tablet 1 atorvastatin (Lipitor) 20 MG tablet TAKE 1 TABLET EVERY DAY 90 tablet 3 Calcium Citrate-Vitamin D (CALCIUM CITRATE + D3 MAXIMUM PO) Take 1 tablet by mouth 1 (one) time each day. cetirizine (ZyrTEC ALLERGY) 10 MG tablet Take 1 tablet by mouth 1 (one) time each day at the same time. clopidogrel (Plavix) 75 MG tablet TAKE 1 TABLET EVERY MORNING 100 tablet 3 co-enzyme Q-10 30 MG capsule Take 30 mg by mouth in the morning. Docusate Sodium (STOOL SOFTENER LAXATIVE PO) Take 1 tablet by mouth if needed EVENING PRIMROSE OIL PO Take 1 application by mouth 1 (one) time each day. famotidine (Pepcid) 20 MG tablet Take 1 tablet by mouth as needed at bedtime for indigestion or heartburn. fenofibrate (Tricor) 145 MG tablet TAKE 1 TABLET EVERY DAY 100 tablet 3 ferrous sulfate 325 (65 Fe) MG tablet Take 1 tablet by mouth 1 (one) time each day at the same time. gabapentin (Neurontin) 600 MG tablet Take 1 tablet (600 mg) by mouth in the morning and 1 tablet (600 mg) in the evening and 1 tablet (600 mg) before bedtime. 300 tablet 3 HORSE CHESTNUT PO Take 1 tablet by mouth 1 (one) time each day. hydroCHLOROthiazide (HYDRODiuril) 25 MG tablet TAKE 1 TABLET EVERY MORNING 100 tablet 3 insulin pen needle (Droplet Pen Levasy) 32G x 4 mm misc USE INSTRUCTED 300 each 3 ipratropium-albuterol (Duo-Neb) 0.5-2.5 mg/3 mL nebulizer solution Take 3 mL by nebulization every 6 (six) hours. PRN levothyroxine (Synthroid, Levoxyl) 88 MCG tablet TAKE 1 TABLET IN THE MORNING BEFORE A MEAL 90 tablet 3 lisinopril 40 MG tablet TAKE 1 TABLET EVERY MORNING 100 tablet 3 magnesium 30 MG tablet Take 30 mg by mouth in the morning. melatonin 5 MG tablet Take 1 tablet by mouth if needed metoprolol tartrate (Lopressor) 25 MG tablet TAKE 1 TABLET THREE TIMES DAILY (IN THE MORNING, IN THE EVENING, AND BEFORE BEDTIME) 270 tablet 3 Multiple Vitamin (Multivitamin Adult) tablet Take 1 tablet by mouth 1 (one) time each day at the same time. naproxen (Naprosyn) 500 MG tablet TAKE 1 TABLET TWICE DAILY WITH FOOD OR MILK 180 tablet 3 niacin 500 MG tablet Take 1 tablet by mouth 1 (one) time each day at the same time. [place]-3 Fatty Acids (Fish Oil) 1000 MG capsule delayed-release Take 1 capsule by mouth 1 (one) time each day. omeprazole (PriLOSEC) [address] capsule TAKE 1 CAPSULE EVERY DAY 100 capsule 3 Ma[place]ou InternationalTouch Ultra test strip USE TO TEST BLOOD SUGAR TWICE DAILY 200 strip 3 OXcarbazepine (Trileptal) 300 MG tablet TAKE 1 TABLET IN THE MORNING AND TAKE 1 TABLET BEFORE BEDTIME 200 tablet 3 polyethylene glycol, PEG, 3350 (Miralax) 17 g packet Take 17 g by mouth Daily as needed. SITagliptin-metFORMIN (Janumet) 50-500 MG tablet Take 2 tablets by mouth in the morning. 180 tablet 3 sodium chloride 1 g tablet Take 1 g by mouth Daily as needed. Stiolto Respimat 2.5-2.5 MCG/ACT aerosol solution inhaler INHALE 2 PUFFS EVERY DAY 12 g 3 torsemide (Demadex) 10 MG tablet TAKE 1 TABLET EVERY MORNING 100 tablet 3 Ventolin HFA 108 (90 Base) MCG/ACT inhaler Inhale 2 puffs every 6 (six) hours if needed for wheezing or shortness of breath. zinc gluconate 50 MG tablet Take 1 tablet by mouth 1 (one) time each day at the same time. [DISCONTINUED] ALPRAZolam (Xanax) 0.5 MG tablet Take 1 tablet (0.5 mg) by mouth as needed at bedtime for anxiety 30 tablet 0 [DISCONTINUED] Lantus SoloStar 100 UNIT/ML pen INJECT 25 UNITS UNDER THE SKIN ONE TIME DAILY DIRECTED 30 mL 3 ALPRAZolam (Xanax) 0.5 MG tablet Take 1 tablet (0.5 mg) by mouth as needed at bedtime for anxiety 30 tablet 0 No current facility-administered medications on file prior to visit. I have reviewed and reconciled the history and medication list with the patient today. Allergies Allergen Reactions Bacitracin Other Reaction(s): Blister Bacitracin-Polymyxin B Unknown Cimetidine Unknown Neomycin Other Reaction(s): Blister Petrolatum Unknown Polymyxin B Other Reaction(s): Blister Social History Tobacco Use Smoking status: Every Day Current packs/day: 1.50 Average packs/day: 1.5 packs/day for 50.0 years (75.0 ttl pk-yrs) Types: Cigarettes Smokeless tobacco: Never Tobacco comments: 11-20 cigs/day Vaping Use Vaping status: Every Day Substance Use Topics Alcohol use: Never Comment: Caffeine intake: more than 4 cups per day Drug use: Never Family History Problem Relation Name Age of Onset Cancer Mother Hypertension Mother Heart disease Mother Diabetes Mother Cancer Father Past Medical History: Diagnosis Date AMS (altered mental status) 10/30/2020 [facility] Anemia Arthritis Asthma Breast lump Bronchitis Cancer ([facility]/HCC) cervical Carotid artery stenosis Cataract Chicken pox COPD (chronic obstructive pulmonary disease) ([facility]/HCC) Diabetes mellitus (CMS/HCC) Disease of thyroid gland (CMS/HCC) Emphysema lung (CMS/HCC) History of being hospitalized 10/30/2020 AMS [facility] Hyperlipemia ([facility]) Hypertension ([facility]/HCC) Measles Vascular calcification Past Surgical History: Procedure Laterality Date CAROTID ARTERY ANGIOPLASTY 12/17/2019 and stent CAROTID ENDARTERECTOMY Right 2015 CAROTID ENDARTERECTOMY Left 10/02/2020 CHOLECYSTECTOMY 2000 COLONOSCOPY 01/20/2022 normal, EGD, chronic gastritis, Dr. Tran CT ANGIOGRAM NECK 09/23/2015 CT ANGIOGRAM NECK 09/23/2015 HYSTERECTOMY 1993 Visit Vitals BP 130/60 Pulse 64 Ht 4' 11 Wt 172 lb SpO2 94% BMI 34.74 kg/m Smoking Status Every Day BSA 1.8 m Review of Systems Constitutional: Negative for chills, fatigue, fever and unexpected weight change. Respiratory: Negative for cough. Cardiovascular: Negative for chest pain. Gastrointestinal: Negative for abdominal pain, blood in stool, constipation, diarrhea, nausea and vomiting. Genitourinary: Negative for dysuria, enuresis, frequency and hematuria. Musculoskeletal: Negative for back pain. Neurological: Negative for dizziness, tremors, syncope, facial asymmetry and speech difficulty. Psychiatric/Behavioral: Negative for agitation, behavioral problems, confusion and dysphoric mood. The patient is not nervous/anxious. Endocrine: Negative for polydipsia. Objective Physical Exam Constitutional: General: She is not in acute distress. Appearance: Normal appearance. HENT: Head: Normocephalic. Neck: Vascular: Carotid bruit present. Cardiovascular: Rate and Rhythm: Normal rate and regular rhythm. Pulmonary: Effort: Pulmonary effort is normal. No respiratory distress. Breath sounds: Normal breath sounds. Neurological: General: No focal deficit present. Mental Status: She is alert and oriented to person, place, and time. Psychiatric: Mood and Affect: Mood normal. Office Visit on 10/11/2024 Component Date Value Ref Range Status Hemoglobin A1C 10/11/2024 4.8 Final Assessment/Plan Problem List Items Addressed This Visit Diabetes mellitus (CMS/HCC) Relevant Medications insulin glargine (Lantus SoloStar) 100 UNIT/ML pen Grade II diastolic dysfunction Needs better BP control Benign hypertension (CMS/HCC) Our specific goals, for your hypertension, is [...] taking them as prescribed. DASH diet handouts Other secondary pulmonary hypertension Epilepsy, unspecified, not intractable, without status epilepticus Controlled with meds Heart failure, unspecified (CMS/HCC) Continue current meds. Diabetes mellitus with peripheral vascular disease (CMS/HCC) - Primary No Tobacco use Follow ADA 1800 diet [...] and importance of healthy diet and exercise. Relevant Orders POCT Glycated hemoglobin, total (Completed) Bilateral carotid bruits Relevant Orders Vascular US carotid artery duplex bilateral Follow up in about 6 months (around 04/13/2025) for Diabetes. documented in this encounter [facility] 10-11-2024 Telephone encount er Note Patient has appointment today. [facility] 10-11-2024 Miscellaneous Notes Formattin g of this note might be different from the original. Patient has appointment today. documented in this encounter [facility] 05-11-2024 History of Presen t illness Narrative Pt was here for a BP check documented in this encounter [facility] 05-08-2024 History of Presen t illness Narrative Associated Problem(s): Hypertensive emergency (CMS/HCC) Add Norvasc Take all current blood medications If with severe or stroke like symptoms got to ER Associated Problem(s): Hyperlipidemia (CMS/HCC) This is a chronic medical condition that is stable since last assessment. No changes in treatment are suggested at this time. Continue Current meds. Associated Problem(s): Agitation states as acute reaction to exceptional (gross) stress Patient's Medicine is effective at controlling symptoms at current dose and frequency. PDMP reviewed with no evidence of overuse and abuse D/W patient to avoid use of benzodiazepines when consuming alcohol Advised against operating heavy machinery and driving long distances while on medicines. Associated Problem(s): Diabetes mellitus ([facility]) No Tobacco use Follow ADA 1800 diet [...] and importance of healthy diet and exercise. Images from the original note were not included. Subjective Patient ID: Nuvia Martin is a 78 y.o. female who presents for pain management/ depression. Nuvia presents today for a 3 month F/U for pain/ drepression. Patient states she has a lot of pain when standing and walking. Current Outpatient Medications on File Prior to Visit Medication Sig Dispense Refill atorvastatin (Lipitor) 20 MG tablet TAKE 1 TABLET EVERY DAY 90 tablet 3 Alpha Lipoic Acid 200 MG capsule Take 1 tablet by mouth 1 (one) time each day. alpha tocopherol (Vitamin E) 400 units capsule Take 2 capsules by mouth 1 (one) time each day at the same time. Calcium Citrate-Vitamin D (CALCIUM CITRATE + D3 MAXIMUM PO) Take 1 tablet by mouth 1 (one) time each day. cetirizine (ZyrTEC ALLERGY) 10 MG tablet Take 1 tablet by mouth 1 (one) time each day at the same time. clopidogrel (Plavix) 75 MG tablet TAKE 1 TABLET EVERY MORNING 90 tablet 3 co-enzyme Q-10 30 MG capsule Take 30 mg by mouth in the morning. Docusate Sodium (STOOL SOFTENER LAXATIVE PO) Take 1 tablet by mouth if needed EVENING PRIMROSE OIL PO Take 1 application by mouth 1 (one) time each day. famotidine (Pepcid) 20 MG tablet Take 1 tablet by mouth as needed at bedtime for indigestion or heartburn. fenofibrate (Tricor) 145 MG tablet TAKE 1 TABLET EVERY DAY 100 tablet 3 ferrous sulfate 325 (65 Fe) MG tablet Take 1 tablet by mouth 1 (one) time each day at the same time. gabapentin (Neurontin) 600 MG tablet Take 1 tablet (600 mg) by mouth in the morning and 1 tablet (600 mg) in the evening and 1 tablet (600 mg) before bedtime. 300 tablet 3 HORSE CHESTNUT PO Take 1 tablet by mouth 1 (one) time each day. hydroCHLOROthiazide (HYDRODiuril) 25 MG tablet TAKE 1 TABLET EVERY MORNING 100 tablet 3 insulin pen needle (BD Pen Needle Susan U/F) 32G x 4 mm misc USE DIRECTED TWICE A DAY 100 each 3 ipratropium-albuterol (Duo-Neb) 0.5-2.5 mg/3 mL nebulizer solution Take 3 mL by nebulization every 6 (six) hours. PRN Lantus SoloStar 100 UNIT/ML pen INJECT 25 UNITS UNDER THE SKIN ONE TIME DAILY DIRECTED 30 mL 3 levothyroxine (Synthroid, Levoxyl) 88 MCG tablet TAKE 1 TABLET (88 MCG) BY MOUTH IN THE MORNING BEFORE A MEAL 90 tablet 3 lisinopril 40 MG tablet TAKE 1 TABLET EVERY MORNING 100 tablet 3 magnesium 30 MG tablet Take 30 mg by mouth in the morning. melatonin 5 MG tablet Take 1 tablet by mouth if needed metoprolol tartrate (Lopressor) 25 MG tablet TAKE 1 TABLET THREE TIMES DAILY (IN THE MORNING, IN THE EVENING, AND BEFORE BEDTIME) 270 tablet 3 Multiple Vitamin (Multivitamin Adult) tablet Take 1 tablet by mouth 1 (one) time each day at the same time. naproxen (Naprosyn) 500 MG tablet TAKE 1 TABLET TWICE DAILY WITH FOOD OR MILK 180 tablet 3 niacin 500 MG tablet Take 1 tablet by mouth 1 (one) time each day at the same time. [place]-3 Fatty Acids (Fish Oil) 1000 MG capsule delayed-release Take 1 capsule by mouth 1 (one) time each day. omeprazole (PriLOSEC) [address] capsule TAKE 1 CAPSULE ONE TIME DAILY 100 capsule 3 OneTouch Ultra test strip USE TO TEST BLOOD SUGAR TWICE DAILY 200 strip 3 OXcarbazepine (Trileptal) 300 MG tablet TAKE 1 TABLET IN THE MORNING AND TAKE 1 TABLET BEFORE BEDTIME 180 tablet 3 polyethylene glycol, PEG, 3350 (Miralax) 17 g packet Take 17 g by mouth Daily as needed. SITagliptin-metFORMIN (Janumet) 50-500 MG tablet Take 2 tablets by mouth in the morning. 180 tablet 3 sodium chloride 1 g tablet Take 1 g by mouth Daily as needed. tiotropium-olodaterol (Stiolto Respimat) 2.5-2.5 MCG/ACT aerosol solution inhaler INHALE 2 PUFFS BY MOUTH ONCE A DAY 4 g 3 torsemide (Demadex) 10 MG tablet TAKE 1 TABLET EVERY MORNING 90 tablet 3 Ventolin HFA 108 (90 Base) MCG/ACT inhaler Inhale 2 puffs every 6 (six) hours if needed for wheezing or shortness of breath. zinc gluconate 50 MG tablet Take 1 tablet by mouth 1 (one) time each day at the same time. [DISCONTINUED] ALPRAZolam (Xanax) 0.5 MG tablet Take 1 tablet (0.5 mg) by mouth as needed at bedtime for anxiety for up to 7 days 7 tablet 0 [DISCONTINUED] ALPRAZolam (Xanax) 0.5 MG tablet Take 1 tablet (0.5 mg) by mouth as needed at bedtime for anxiety for up to 7 days 7 tablet 0 No current facility-administered medications on file prior to visit. I have reviewed and reconciled the history and medication list with the patient today. Allergies Allergen Reactions Bacitracin Other Reaction(s): Blister Bacitracin-Polymyxin B Unknown Cimetidine Unknown Neomycin Other Reaction(s): Blister Petrolatum Unknown Polymyxin B Other Reaction(s): Blister Social History Tobacco Use Smoking status: Every Day Current packs/day: 1.50 Average packs/day: 1.5 packs/day for 50.0 years (75.0 ttl pk-yrs) Types: Cigarettes Smokeless tobacco: Never Tobacco comments: 11-20 cigs/day Vaping Use Vaping status: Every Day Substance Use Topics Alcohol use: Never Comment: Caffeine intake: more than 4 cups per day Drug use: Never Family History Problem Relation Name Age of Onset Cancer Mother Hypertension Mother Heart disease Mother Diabetes Mother Cancer Father Past Medical History: Diagnosis Date AMS (altered mental status) 10/30/[place] [facility] [place] Arthritis Asthma ([facility]) Breast lump Bronchitis Cancer ([facility]) cervical Carotid artery stenosis Cataract Chicken pox COPD (chronic obstructive pulmonary disease) (CMS/HCC) Diabetes mellitus (CMS/HCC) Disease of thyroid gland (CMS/HCC) Emphysema lung (CMS/HCC) History of being hospitalized 10/30/2020 [facility] Hyperlipemia (CMS/HCC) Hypertension (CMS/HCC) Measles Vascular calcification Past Surgical History: Procedure Laterality Date CAROTID ARTERY ANGIOPLASTY 12/17/2019 and stent CAROTID ENDARTERECTOMY Right 2014 CAROTID ENDARTERECTOMY Left 10/02/2020 CHOLECYSTECTOMY 2000 COLONOSCOPY 01/20/2022 normal, EGD, chronic gastritis, Dr. Tran CT ANGIOGRAM NECK 09/23/2015 CT ANGIOGRAM NECK 09/23/2015 HYSTERECTOMY 1993 Visit Vitals BP (!) 184/92 Pulse 61 Resp 17 Ht 4' 11 Wt 165 lb SpO2 98% BMI 33.33 kg/m Smoking Status Every Day BSA 1.76 m Review of Systems Constitutional: Negative for chills, fatigue, fever and unexpected weight change. Respiratory: Negative for cough. Cardiovascular: Negative for chest pain. Gastrointestinal: Negative for abdominal pain, blood in stool, constipation, diarrhea, nausea and vomiting. Genitourinary: Negative for dysuria, enuresis, frequency and hematuria. Musculoskeletal: Negative for back pain. Neurological: Negative for dizziness, tremors, syncope, facial asymmetry and speech difficulty. Psychiatric/Behavioral: Negative for agitation, behavioral problems, confusion and dysphoric mood. The patient is not nervous/anxious. Objective Physical Exam Constitutional: General: She is not in acute distress. Appearance: Normal appearance. HENT: Head: Normocephalic. Neck: Vascular: No carotid bruit. Cardiovascular: Rate and Rhythm: Normal rate and regular rhythm. Pulmonary: Effort: Pulmonary effort is normal. No respiratory distress. Breath sounds: Normal breath sounds. Neurological: General: No focal deficit present. Mental Status: She is alert and oriented to person, place, and time. Psychiatric: Mood and Affect: Mood normal. Assessment/Plan Problem List Items Addressed This Visit Diabetes mellitus (CMS/HCC) - Primary No Tobacco use Follow ADA 1800 diet [...] and importance of healthy diet and exercise. Essential hypertension (CMS/HCC) Relevant Medications amLODIPine (Norvasc) 10 MG tablet Hyperlipidemia (CMS/HCC) This is a chronic medical condition that is stable since last assessment. No changes in treatment are suggested at this time. Continue Current meds. Agitation states as acute reaction to exceptional (gross) stress Patient's Medicine is effective at controlling symptoms at current dose and frequency. PDMP reviewed with no evidence of overuse and abuse D/W patient to avoid use of benzodiazepines when consuming alcohol Advised against operating heavy machinery and driving long distances while on medicines. Hypertensive emergency (CMS/HCC) Add Norvasc Take all current blood medications If with severe or stroke like symptoms got to ER Other Visit Diagnoses Other insomnia Relevant Medications ALPRAZolam (Xanax) 0.5 MG tablet Follow up in about 3 days (around 05/11/2024) for Hypertension. documented in this encounter [facility] 05-04-2024 Telephone encount er Note 7 day supply sent. [facility] 05-04-2024 Miscellaneous Notes Formattin g of this note might be different from the original. 7 day supply sent. Pt made an appt for tues with johan , but she is needing a refill on her xanax if willing to send in for her [facility] she stated it helps her sleep at night documented in this encounter [facility] 05-04-2024 Telephone encount er Note Pt made an appt for tues with johan , but she is needing a refill on her xanax if willing to send in for her [facility] she stated it helps her sleep at night [facility] 03-20-2024 Telephone encount er Note OARRS reviewed, Rx sent into patient's pharmacy. [facility] 03-20-2024 Miscellaneous Notes Formattin g of this note might be different from the original. OARRS reviewed, Rx sent into patient's pharmacy. documented in this encounter [facility] 02-15-2024 Telephone encount er Note OARRS reviewed, Rx sent into patient's pharmacy. [facility] 02-15-2024 Miscellaneous Notes Formattin g of this note might be different from the original. OARRS reviewed, Rx sent into patient's pharmacy. documented in this encounter [facility] 02-10-2024 Telephone encount er Note Atorvastatin sent. [facility] 02-10-2024 Miscellaneous Notes Formattin g of this note might be different from the original. Atorvastatin sent. documented in this encounter [facility] 02-10-2024 Telephone encount er Note Janumet sent [facility] 02-10-2024 Miscellaneous Notes Formattin g of this note might be different from the original. Janumet sent documented in this encounter [facility] 01-17-2024 History of Presen t illness Narrative Images from the original note were not included. Subjective Patient ID: Nuvia Martin is a 78 y.o. female who presents for dicuss pain management. Pt is wanting to discuss going to pain management, she also would like to know if she can get refill of tramadol Current Outpatient Medications on File Prior to Visit Medication Sig Dispense Refill Alpha Lipoic Acid 200 MG capsule Take 1 tablet by mouth 1 (one) time each day. alpha tocopherol (Vitamin E) 400 units capsule Take 2 capsules by mouth 1 (one) time each day at the same time. atorvastatin (Lipitor) 20 MG tablet TAKE 1 TABLET EVERY DAY 90 tablet 3 Calcium Citrate-Vitamin D (CALCIUM CITRATE + D3 MAXIMUM PO) Take 1 tablet by mouth 1 (one) time each day. cetirizine (ZyrTEC ALLERGY) 10 MG tablet Take 1 tablet by mouth 1 (one) time each day at the same time. clopidogrel (Plavix) 75 MG tablet TAKE 1 TABLET EVERY MORNING 90 tablet 3 co-enzyme Q-10 30 MG capsule Take 30 mg by mouth in the morning. Docusate Sodium (STOOL SOFTENER LAXATIVE PO) Take 1 tablet by mouth if needed EVENING PRIMROSE OIL PO Take 1 application by mouth 1 (one) time each day. famotidine (Pepcid) 20 MG tablet Take 1 tablet by mouth as needed at bedtime for indigestion or heartburn. fenofibrate (Tricor) 145 MG tablet TAKE 1 TABLET EVERY DAY 100 tablet 3 ferrous sulfate 325 (65 Fe) MG tablet Take 1 tablet by mouth 1 (one) time each day at the same time. gabapentin (Neurontin) 600 MG tablet Take 1 tablet (600 mg) by mouth in the morning and 1 tablet (600 mg) in the evening and 1 tablet (600 mg) before bedtime. 300 tablet 3 HORSE CHESTNUT PO Take 1 tablet by mouth 1 (one) time each day. hydroCHLOROthiazide (HYDRODiuril) 25 MG tablet TAKE 1 TABLET EVERY MORNING 100 tablet 3 insulin pen needle (BD Pen Needle Susan U/F) 32G x 4 mm misc USE DIRECTED TWICE A DAY 100 each 3 ipratropium-albuterol (Duo-Neb) 0.5-2.5 mg/3 mL nebulizer solution Take 3 mL by nebulization every 6 (six) hours. PRN Lantus SoloStar 100 UNIT/ML pen INJECT 25 UNITS UNDER THE SKIN ONE TIME DAILY DIRECTED 30 mL 3 levothyroxine (Synthroid, Levoxyl) 88 MCG tablet TAKE 1 TABLET (88 MCG) BY MOUTH IN THE MORNING BEFORE A MEAL 90 tablet 3 lisinopril 40 MG tablet TAKE 1 TABLET EVERY MORNING 100 tablet 3 magnesium 30 MG tablet Take 30 mg by mouth in the morning. melatonin 5 MG tablet Take 1 tablet by mouth if needed metoprolol tartrate (Lopressor) 25 MG tablet TAKE 1 TABLET THREE TIMES DAILY (IN THE MORNING, IN THE EVENING, AND BEFORE BEDTIME) 270 tablet 3 Multiple Vitamin (Multivitamin Adult) tablet Take 1 tablet by mouth 1 (one) time each day at the same time. naproxen (Naprosyn) 500 MG tablet TAKE 1 TABLET TWICE DAILY WITH FOOD OR MILK 180 tablet 3 niacin 500 MG tablet Take 1 tablet by mouth 1 (one) time each day at the same time. [place]-3 Fatty Acids (Fish Oil) 1000 MG capsule delayed-release Take 1 capsule by mouth 1 (one) time each day. omeprazole (PriLOSEC) [address] capsule TAKE 1 CAPSULE ONE TIME DAILY 100 capsule 3 OneTouch Ultra test strip USE TO TEST BLOOD SUGAR TWICE DAILY 200 strip 3 OXcarbazepine (Trileptal) 300 MG tablet TAKE 1 TABLET IN THE MORNING AND TAKE 1 TABLET BEFORE BEDTIME 180 tablet 3 polyethylene glycol, PEG, 3350 (Miralax) 17 g packet Take 17 g by mouth Daily as needed. SITagliptin-metFORMIN (Janumet) 50-500 MG tablet Take 2 tablets by mouth in the morning. 200 tablet 3 sodium chloride 1 g tablet Take 1 g by mouth Daily as needed. tiotropium-olodaterol (Stiolto Respimat) 2.5-2.5 MCG/ACT aerosol solution inhaler INHALE 2 PUFFS ONCE A DAY 4 g 3 torsemide (Demadex) 10 MG tablet TAKE 1 TABLET EVERY MORNING 90 tablet 3 Ventolin HFA 108 (90 Base) MCG/ACT inhaler Inhale 2 puffs every 6 (six) hours if needed for wheezing or shortness of breath. zinc gluconate 50 MG tablet Take 1 tablet by mouth 1 (one) time each day at the same time. [DISCONTINUED] ALPRAZolam (Xanax) 0.5 MG tablet Take 1 tablet (0.5 mg) by mouth as needed at bedtime for anxiety 30 tablet 0 [DISCONTINUED] traMADol (Ultram) 50 MG tablet Take 50 mg by mouth every 6 (six) hours if needed for severe pain No current facility-administered medications on file prior to visit. I have reviewed and reconciled the history and medication list with the patient today. Allergies Allergen Reactions Bacitracin Other Reaction(s): Blister Bacitracin-Polymyxin B Unknown Cimetidine Unknown Neomycin Other Reaction(s): Blister Petrolatum Unknown Polymyxin B Other Reaction(s): Blister Social History Tobacco Use Smoking status: Every Day Current packs/day: 1.50 Average packs/day: 1.5 packs/day for 50.0 years (75.0 ttl pk-yrs) Types: Cigarettes Smokeless tobacco: Never Tobacco comments: 11-20 cigs/day Substance Use Topics Alcohol use: Never Comment: Caffeine intake: more than 4 cups per day Drug use: Never Family History Problem Relation Name Age of Onset Cancer Mother Hypertension Mother Heart disease Mother Diabetes Mother Cancer Father Past Medical History: Diagnosis Date AMS (altered mental status) 10/30/2020 [facility] [place] Anemia Arthritis Asthma ([facility]) Breast lump Bronchitis Cancer ([facility]) cervical Carotid artery stenosis Cataract Chicken pox COPD (chronic obstructive pulmonary disease) ([facility]CC) Diabetes mellitus ([facility]) Disease of thyroid gland ([facility]) Emphysema lung ([facility]) History of being hospitalized 10/30/2020 A[facility] [place] Hyperlipemia ([facility]) Hypertension ([facility]) Measles Vascular calcification Past Surgical History: Procedure Laterality Date CAROTID ARTERY ANGIOPLASTY 12/17/2019 and stent CAROTID ENDARTERECTOMY Right 2014 CAROTID ENDARTERECTOMY Left 10/02/2020 CHOLECYSTECTOMY 2000 COLONOSCOPY 01/20/2022 normal, EGD, chronic gastritis, Dr. Tran CT ANGIOGRAM NECK 09/23/2015 CT ANGIOGRAM NECK 09/23/2015 HYSTERECTOMY 1993 Visit Vitals BP 138/84 Pulse 58 Ht 4' 11 Wt 164 lb SpO2 97% BMI 33.12 kg/m Smoking Status Every Day BSA 1.76 m Review of Systems Constitutional: Negative for chills, fatigue, fever and unexpected weight change. Respiratory: Negative for cough. Cardiovascular: Negative for chest pain. Gastrointestinal: Negative for abdominal pain, blood in stool, constipation, diarrhea, nausea and vomiting. Genitourinary: Negative for dysuria, enuresis, frequency and hematuria. Musculoskeletal: Negative for back pain. Neurological: Negative for dizziness, tremors, syncope, facial asymmetry and speech difficulty. Psychiatric/Behavioral: Negative for agitation, behavioral problems, confusion and dysphoric mood. The patient is not nervous/anxious. Objective Physical Exam Constitutional: Appearance: Normal appearance. She is normal weight. Musculoskeletal: Cervical back: Tenderness present. No rigidity. Thoracic back: Spasms and tenderness present. Back: Neurological: Mental Status: She is alert. Assessment/Plan Problem List Items Addressed This Visit None Visit Diagnoses Lumbar spondylosis - Primary Relevant Medications traMADol (Ultram) 50 MG tablet Other Relevant Orders Ambulatory referral to Pain Medicine Other insomnia Relevant Medications ALPRAZolam (Xanax) 0.5 MG tablet 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 claudication Relevant Medications traMADol (Ultram) 50 MG tablet Other Relevant Orders Ambulatory referral to Pain Medicine Follow up in about 3 months (around 04/17/2024). documented in this encounter [facility] 01-11-2024 History of Presen t illness Narrative Physical Therapy Treatment Visit / DISCHARGE Patient Name: Nuvia Landeros Today's Date: 01/11/2024 Encounter Diagnoses Name Primary? Muscle spasm of back Yes Bilateral hip pain Acute bilateral low back pain with sciatica, sciatica laterality unspecified Lumbar spondylosis Visit number: 6 Timed Code Treatment Minutes: 28 minutes Total Treatment Time: 28 minutes Time In: 1030 Time Out: 1103 History: Pt has had back and bilateral hip pain for quite some time. PT in the past has helped. Pt states lately she has not been doing exercises at home like she should and she has been feeling weaker. Feels like she needs to get her strength and endurance back where it was. Has not been able to walk outside with her cane lately; has only been able to walk at store when she is pushing a cart. Pt states she does have neuropathy in both her feet; denies any recent falls. Precautions: [place] Subjective: Pt states she has been hurting pretty bad since last session. Thought she was doing OK but when she arrived home her naproxen wore off and she was in a significant amount of pain. Pt states she believes she has hit a point where her exercises cannot be progressed without increasing her pain. Knows she has to work at exercises to get stronger; however, her pain continues to interfere. Would like to continue with HEP and step therapy at this point. Pain: 11/22 Objective: PT Evaluation (12/27/2023) LUMBAR SPINE AROM: flex fingers to toes without end range pain, ERP noted with extension and right SB Strength: 4-/5 bilateral hips, 4- to 4/5 bilateral quads and ankles; Five Time Sit to Stand with arms across chest: 34.94 seconds Muscle length: 90/90 HS right 45 degrees knee flexion, left 38 degrees Palpation: Mild tenderness right lower lumbar and right buttock Special Test: bilateral slump testing is negative Functional: TUG without device: 24.65 seconds and 24.66 seconds. Ten meter walk test: 10.26 seconds Neurological: Reflexes: 2+ bilateral patellar Myotomes: negative bilateral Dermatomes: negative bilateral Special Test: negative clonus Treatment: Education: HEP education with demonstration, Educated on Eval Findings and POC Manual Therapy: () STM/DTM, low grade mobilization. Passive ROM, Joint mobilization, Soft Tissue Mobilization, Myofascial Release, Muscle Energy Technique, Neural Mobilization, Myofascial Cupping, Dry Needling, IASTM, and Scar mobilization as needed. Therapeutic Exercise: (28 minutes) Strength, Endurance, Flexibility, ROM, HEP, Neural Mobilization, Power, and Core Stability as needed. Reviewed HEP with focus on sitting and supine ex. Pt issued pictures of supine core ex for home program with good understanding. Therapeutic Activity: Exercises to improve dynamic activities, functional tasks, functional mobility to return to prior activity level as needed. Neuromuscular re-education: Balance Training, Muscle Facilitation, Dynamic Stability, Core Stabilization, and Blood Flow Restriction Training (BFRT) as needed. Modalities: Heat, Ice, Electrical Stimulation, Ultrasound, Cervical Mechanical Traction, Lumbar Mechanical Traction, Iontophoresis, and Fluidotherapy as needed. HP in supine post treatment. (PRN minutes) Assessment: Pt was seen for 6 PT sessions for low back pain and bilateral LE weakness. Pt reports compliance with HEP and demo's good knowledge of current program. Five Time Sit to Stand: 46.52 seconds with arms across chest. TUG without device: 24.80 seconds. Ten Meter Walk Test: 12.06 seconds. Strength bilateral hips and quads 4- to 4/5. Back Index score: 18/50. We will now discharge per pt request and inability to progress strengthening due to pain. Outcome Measure: Back Index: 22/50 Rehab Diagnosis: low back and bilateral hip pain, bilateral LE weakness Short Term Goal: To be met in 2 weeks Goal 1: Pt to be instructed in home exercise program. - met [facility] Goals: To be met in 10 weeks Goal 1: Pt to report independence and compliance with home program. - met Goal 2: Pt to complete TUG in less than 16.00 seconds indicating improved mobility and decrease fall risk. - not met Goal 3: Pt to perform 5 sit to stands with arms across chest in less than 20.0 seconds indicating improved functional strength of LE's. - not met Goal 4: Pt to score no greater than 14/50 on Back Index indicating improved QOL. - not met Goal 5: Pt to report pain no greater than 4/10 with function tasks, ADL's, and work related activities. - not met Goal 6: Pt to achieve 4/5 strength bilateral hips and 4+/5 strength bilateral quads to assist with functional mobility. - not met Goal 7: Pt to complete Ten meter walk test in less than 8.0 seconds indicating improved gait and mobility. - not met Discharge to home program. documented in this encounter [facility] 06-21-2023 History of Presen t illness Narrative Physical Therapy Physical Therapy Evaluation Visit Patient Name: Nuvia Martin Today's Date: 06/16/23 Encounter Diagnoses Name Primary? [...] Physician Signature: Date: documented in this encounter [facility] 06-16-2023 Telephone encount er Note Requesting refill of Tramadol - not on current med list. [facility] 06-16-2023 Miscellaneous Notes Formattin g of this note might be different from the original. Requesting refill of Tramadol - not on current med list. documented in this encounter [facility] 06-16-2023 History of Presen t illness Narrative Physical Therapy Physical Therapy Evaluation Visit Patient Name: Nuvia Martin Today's Date: 06/16/23 Encounter Diagnoses Name Primary? [...] Physician Signature: Date: documented in this encounter [facility] 11-02-2022 Progress note Note Date/Time November 02, 2022 10:01[facility] [place] at [address] [address] Hem/Onc Follow Up Note - OP Signed Patient: Nuvia Martin MR#: [id number] : 1945 Acct:[id number] Age/Sex: 77 / F Type: REG RCR [...] 2 doses: 01/28/2022 and 02/04/2022 [facility] - Medical History Medical History: Medical History [...] (Verified 11/02/22 09:45) Diarrhea bacitracin [From Neosporin (isq-nfb-rwxsi)] Adverse Reaction (Verified 11/02/22 09:45) Blister contact metal agent Adverse Reaction (Verified 11/02/22 09:45) Rash neomycin [From Neosporin (myy-miq-jlfpm)] Adverse Reaction (Verified 11/02/22 09:45) Blister petrolatum,white [From Petroleum Jelly] Adverse Reaction (Verified 11/02/22 09:45) Blister polymyxin B [From Neosporin (jxn-meg-ufnxk)] Adverse Reaction (Verified 11/02/2308:45) Blister Home Medications [...] PO QNOON 12/17/19 [History Confirmed 11/02/22] omega 8-oaa-vsy-fish oil 1,000 mg (120 mg-180 mg) capsule [...] % (Auto) 60.6, Lymph % (Auto) 26.9, Mathews % (Auto) 9.5, Eos % (Auto) 1.7, Baso % (Auto) 1.3, Nucleat RBC Rel Count 0.2, Neut # (Auto) 3.8, Lymph # (Auto) 1.7, Mathews # (Auto) 0.6, Eos # (Auto) 0.1, [...] for coordination of care (as documented) and uqze-fm-ehds counseling of patient and/or family. Dictated By: Taylor Tijerina APRN DD/ 1000 Signed By: <Electronically signed by CARMELA Tijerina> 11/02/22 1002 [facility] Work Phone: 1(373) 150-666803-28-2023 Progress note Author Taylor Tijerina [facility] August 10, 2022 11:00am Note Date/Time July 30, 2022 11: 10am [facility] [place] [address] Hem/Onc Follow Up Note - OP Signed Patient: Nuvia Martin MR#: [id number] : 1945 Acct:[id number] Age/Sex: 77 / F Type: REG RCR [...] at 15.4% and ferritin 27.4 [facility] - Medical History Medical History: Medical History [...] (Verified 07/30/22 10:44) Diarrhea bacitracin [From Neosporin (nij-wsr-ewmyh)] Adverse Reaction (Verified 07/30/22 10:44) Blister contact metal agent Adverse Reaction (Verified 07/30/22 10:44) Rash neomycin [From Neosporin (jia-kxf-hhnku)] Adverse Reaction (Verified 07/30/22 10:44) Blister petrolatum,white [From Petroleum Jelly] Adverse Reaction (Verified 07/30/22 10:44) Blister polymyxin B [From Neosporin (hxl-ucg-awkes)] Adverse Reaction (Verified 07/30/2309:44) Blister Home Medications [...] Confirmed 07/30/22] aspirin 81 mg tablet,delayed release (Mango Low Dose Aspirin) 81 mg PO QHS [...] PO QNOON 12/17/19 [History Confirmed 07/30/22] omega 5-qzi-jcj-fish oil 1,000 mg (120 mg-180 mg) capsule [...] for coordination of care (as documented) and ofuu-wn-gcrx counseling of patient and/or family. Dictated By: Taylor Tijerina APRN DD/ 1110 Signed By: <Electronically signed by CARMELA Tijerina> 08/10/22 1100 [facility] Work Phone: 1(261) 297-526912-12-2022 Progress note Author Emily Degroot [facility] April 26, 2022 3:23pm Note Date/Time April 26, 2022 3:16pm [facility] [place] [address] Hem/Onc Follow Up Note - OP Signed Patient: Nuvia Martin MR#: [id number] : 1945 Acct:[id number] Age/Sex: 76 / F Type: REG RCR [...] asthma, hives, eczema or rhinitis. [facility] - Medical History Medical History: Medical History [...] (Verified 04/26/22 09:36) Diarrhea bacitracin [From Neosporin (coo-tak-njooa)] Adverse Reaction (Verified 04/26/22 09:36) Blister contact metal agent Adverse Reaction (Verified 04/26/22 09:36) Rash neomycin [From Neosporin (lzk-grp-ahzls)] Adverse Reaction (Verified 04/26/22 09:36) Blister petrolatum,white [From Petroleum Jelly] Adverse Reaction (Verified 04/26/22 09:36) Blister polymyxin B [From Neosporin (vah-nat-fbvbn)] Adverse Reaction (Verified 04/26/2209:36) Blister Home Medications [...] PO QNOON 12/17/19 [History Confirmed 04/26/22] omega 5-qvs-sfj-fish oil 1,000 mg (120 mg-180 mg) capsule (Fish Oil) 1 cap PO BID 12/17/19 [History Confirmed 04/26/22] vitamin B complex (B-Complex tablet) 1 tab PO QNOON 12/17/19 [History Confirmed 04/26/22] vitamin E 268 mg (400 unit) capsule 800 unit PO QAM 08/03/20 [History Confirmed 04/26/22] zinc 50 mg tablet [...] % (Auto) 68.2, Lymph % (Auto) 20.8, Mathews % (Auto) 6.9, Eos % (Auto) 3.3, Baso % (Auto) 0.8, Nucleat RBC Rel Count 0.1, Neut # (Auto) 4.7, Lymph # (Auto) 1.4, Mathews # (Auto) 0.5, Eos # (Auto) 0.2, [...] for coordination of care (as documented) and ivab-jk-mevi counseling of patient and/or family. Dictated By: Emily Degroot APRN DD/ 1514 Signed By: <Electronically signed by CARMELA Degroot> 04/26/22 1523 [facility] Work Phone: 1(924) 230-528210-10-2022 Progress note Author Marisabel Noel [facility] February 22, 2022 12:49pm Note Date/Time February 22, 2022 1 2:45pm [facility] [place] [id number] Hem/Onc Follow Up Note - OP Signed Patient: Nuvia Martin MR#: [id number] : 1945 Acct:[id number] Age/Sex: 76 / F Type: REG RCR [...] asthma, hives, eczema or rhinitis. [facility] - Medical History Medical History: Medical History [...] (Verified 02/22/22 11:05) Diarrhea bacitracin [From Neosporin (fvv-oqq-wkhfw)] Adverse Reaction (Verified 02/22/22 11:05) Blister contact metal agent Adverse Reaction (Verified 02/22/22 11:05) Rash neomycin [From Neosporin (oqq-veb-ghmgx)] Adverse Reaction (Verified 02/22/22 11:05) Blister petrolatum,white [From Petroleum Jelly] Adverse Reaction (Verified 02/22/22 11:05) Blister polymyxin B [From Neosporin (iut-axn-kchkx)] Adverse Reaction (Verified 02/22/2211:05) Blister Home Medications [...] PO QNOON 12/17/19 [History Confirmed 02/22/22] omega 6-pat-hrl-fish oil 1,000 mg (120 mg-180 mg) capsule [...] % (Auto) N/A, Lymph % (Auto) N/A, Mathews % (Auto) N/A, Eos % (Auto) N/A,Baso % (Auto) N/A, Neut # (Auto) N/A, Lymph # (Auto) N/A, Mathews # (Auto) N/A, Eos# (Auto) N/A, Baso [...] for coordination of care (as documented) and otnw-pq-gbzs counseling of patient and/or family. Dictated By: Marisabel Noel MD DD/ 1243 Signed By: <Electronically signed by Marisabel Noel MD> 02/22/22 1249 [facility] Work Phone: 1(661) 618-285110-05-2022 History of Present illness Narrative* Cassidy Julio MD - 02/17/2022 9:17 AM EDT Images from the original note were not included. EMERGENCY TRIAGE, TREAT AND TRANSPORT (ET3) DOCUMENTATION OF TELEHEALTH VISIT Date / Time: 02/17/2022916 Name: Nuvia Martin : 1945 SSN: [id number] EMS Agency: [facility] [x] Verbal consent obtained [] [...] by: Cassidy Julio MD documented in this [id number] Consult note Author Maciel Sofia [facility] January 19, 2022 2:52pm Note Date/Time January 12, 2022 12 :54pm [facility] [place] [address] Hem/Onc Consult Note - OP Signed Patient: Nuvia Martin MR#: [id number] : 1945 Acct:[id number] Age/Sex: 76 / F Type: REG RCR [...] Unable to locate recent iron studies from [facility]. She will have a colonoscopy and EGD [...] sweats, or unintentional weight loss. [facility] - Medical History Medical History: Medical History [...] (Verified 01/12/22 11:14) Diarrhea bacitracin [From Neosporin (anl-rnz-hvczm)] Adverse Reaction (Verified 01/12/22 11:14) Blister contact metal agent Adverse Reaction (Verified 01/12/22 11:14) Rash neomycin [From Neosporin (xhf-pqe-hckri)] Adverse Reaction (Verified 01/12/22 11:14) Blister petrolatum,white [From Petroleum Jelly] Adverse Reaction (Verified 01/12/22 11:14) Blister polymyxin B [From Neosporin (uqu-pgv-ffywo)] Adverse Reaction (Verified 01/12/2211:14) Blister Home Medications [...] 1 tab PO DAILY.AC.LUNCH 12/17/19 [History Confirmed 01/12/22] cetirizine 10 mg tablet [...] PO QNOON 12/17/19 [History Confirmed 01/12/22] omega 9-ghn-flk-fish oil 1,000 mg (120 mg-180 mg) capsule [...] for coordination of care (as documented) and azbx-jw-ulje counseling of patient and/or family. Dictated By: Taylor Tijerina APRN DD/ 1241 Signed By: <Electronically signed by CARMELA Tijerina> 01/12/22 1403 <Electronically signed by Maciel Sofia II, DO> 01/19/22 1452 [facility] Work Phone: 1(423) 531-414208-22-2022 NotePROCEDURE: XR ELBOW RT 2V HISTORY: Bone injury ; acute elbow pain after falling COMPARISON: None. FINDINGS: BONES:No fracture, acute abnormality, or significant arthropathy. SOFT TISSUES:Soft tissue swelling posterior to the proximal forearm. EFFUSION:None visible. OTHER: Negative. IMPRESSION: 1. No acute bone abnormality or joint effusion. Electronically authenticated by: GINGER BROOKS Date: 2022-01-04 13:57[facility]10-12-2021 Evaluation note* Encounter Date Diagnosis Assessment [...] readiness for smoking cessation at this time. [employer] Other Evaluation note* Diagnosis Onset Date Resolution Status Iron deficiency anemia acute [facility] Work Phone: Evaluation note* Diagnosis Fall, initial encounter- [facility] Diagnosis Acute bilateral low back pain with bilateral sciatica- Primary [facility] [...] thigh [facility] noteNo assessment information availableFirTriHealth Work Phone: Evaluation note* Diagnosis Other insomnia documented in this encounter [facility]* Diagnosis Acute bilateral low back pain with sciatica, sciatica laterality unspecified- Primary Type 2 diabetes mellitus with diabetic polyneuropathy, with long-term current use of insulin (CMS/HCC) Lumbar spondylosis Lumbosacral spondylosis without myelopathy Lumbar adjacent segment disease with spondylolisthesis- Primary Acute bilateral low back pain with bilateral sciatica Type 2 diabetes mellitus with diabetic polyneuropathy, with long-term current use of insulin (CMS/HCC) Bilateral carotid artery stenosis Occlusion and stenosis of carotid artery without mention of cerebral infarction Claustrophobia (CMS/HCC) Other isolated or specific phobias Type 2 diabetes mellitus with diabetic peripheral angiopathy without gangrene, without long-term current use of insulin (CMS/HCC) Hypervitaminosis B6- Primary Other hyperalimentation Acute bilateral low back pain with bilateral sciatica Lumbar adjacent segment disease with spondylolisthesis Lumbar spondylosis Lumbosacral spondylosis without myelopathy Stenosis of carotid artery, unspecified laterality Lumbar paraspinal muscle spasm Other symptoms referable to back Carpal tunnel syndrome, bilateral Carpal tunnel syndrome Migraine without aura and without status migrainosus, not intractable (CMS/HCC) OLIVA (obstructive sleep apnea) Obstructive sleep apnea (adult) (pediatric) Routine general medical examination at health care facility- Primary Routine general medical examination at a health care facility Type 2 diabetes mellitus with diabetic peripheral angiopathy without gangrene, without long-term current use of insulin (CMS/HCC) Peripheral vascular disease, unspecified (CMS/HCC) Peripheral vascular disease, unspecified Heart failure, unspecified (CMS/HCC) Heart failure, unspecified Epilepsy, unspecified, not intractable, without status epilepticus (CMS/HCC) Other secondary pulmonary hypertension (CMS/HCC) Atherosclerosis of aorta (CMS/HCC) Atherosclerosis of aorta Medicare annual wellness visit, subsequent Diabetes mellitus with peripheral vascular disease (CMS/HCC) Other insomnia documented in this encounter [facility]* Diagnosis Acute bilateral low back pain with sciatica, sciatica laterality unspecified- Primary Type 2 diabetes mellitus with diabetic polyneuropathy, with long-term current use of insulin (CMS/HCC) Lumbar spondylosis Lumbosacral spondylosis without myelopathy Lumbar adjacent segment disease with spondylolisthesis- Primary Acute bilateral low back pain with bilateral sciatica Type 2 diabetes mellitus with diabetic polyneuropathy, with long-term current use of insulin (CMS/HCC) Bilateral carotid artery stenosis Occlusion and stenosis of carotid artery without mention of cerebral infarction Claustrophobia (CMS/HCC) Other isolated or specific phobias Type 2 diabetes mellitus with diabetic peripheral angiopathy without gangrene, without long-term current use of insulin (CMS/HCC) Hypervitaminosis B6- Primary Other hyperalimentation Acute bilateral low back pain with bilateral sciatica Lumbar adjacent segment disease with spondylolisthesis Lumbar spondylosis Lumbosacral spondylosis without myelopathy Stenosis of carotid artery, unspecified laterality Lumbar paraspinal muscle spasm Other symptoms referable to back Carpal tunnel syndrome, bilateral Carpal tunnel syndrome Migraine without aura and without status migrainosus, not intractable (CMS/HCC) OLIVA (obstructive sleep apnea) Obstructive sleep apnea (adult) (pediatric) Routine general medical examination at health care facility- Primary Routine general medical examination at a health care facility Type 2 diabetes mellitus with diabetic peripheral angiopathy without gangrene, without long-term current use of insulin (CMS/HCC) Peripheral vascular disease, unspecified (CMS/HCC) Peripheral vascular disease, unspecified Heart failure, unspecified (CMS/HCC) Heart failure, unspecified Epilepsy, unspecified, not intractable, without status epilepticus (CMS/HCC) Other secondary pulmonary hypertension (CMS/HCC) Atherosclerosis of aorta ([facility]) Atherosclerosis of aorta Medicare annual wellness visit, subsequent Diabetes mellitus with peripheral vascular disease ([facility]) Other insomnia [facility] Diagnosis Muscle spasm of back- Primary Bilateral hip pain Pain in joint, pelvic region and thigh Acute bilateral low back pain with sciatica, sciatica laterality unspecified Lumbar spondylosis Lumbosacral spondylosis without myelopathy [facility]* Diagnosis Muscle spasm of back- Primary Bilateral hip pain Pain in joint, pelvic region and thigh Acute bilateral low back pain with sciatica, sciatica laterality unspecified Lumbar spondylosis Lumbosacral spondylosis without myelopathy [facility]* Diagnosis Lumbar spondylosis- Primary Lumbosacral spondylosis without myelopathy Other insomnia 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 claudication documented [facility]* Diagnosis Type 2 diabetes mellitus with diabetic polyneuropathy, with long-term current use of insulin (CMS/HCC) documented in this encounter [facility]* Diagnosis Essential hypertension (CMS/HCC) Unspecified essential hypertension documented in this encounter [facility]* Diagnosis Acute bilateral low back pain with sciatica, sciatica laterality unspecified- Primary Type 2 diabetes mellitus with diabetic polyneuropathy, with long-term current use of insulin (CMS/HCC) Lumbar spondylosis Lumbosacral spondylosis without myelopathy Lumbar adjacent segment disease with spondylolisthesis- Primary Acute bilateral low back pain with bilateral sciatica Type 2 diabetes mellitus with diabetic polyneuropathy, with long-term current use of insulin (CMS/HCC) Bilateral carotid artery stenosis Occlusion and stenosis of carotid artery without mention of cerebral infarction Claustrophobia (CMS/HCC) Other isolated or specific phobias Type 2 diabetes mellitus with diabetic peripheral angiopathy without gangrene, without long-term current use of insulin (CMS/HCC) Hypervitaminosis B6- Primary Other hyperalimentation Acute bilateral low back pain with bilateral sciatica Lumbar adjacent segment disease with spondylolisthesis Lumbar spondylosis Lumbosacral spondylosis without myelopathy Stenosis of carotid artery, unspecified laterality Lumbar paraspinal muscle spasm Other symptoms referable to back Carpal tunnel syndrome, bilateral Carpal tunnel syndrome Migraine without aura and without status migrainosus, not intractable (CMS/HCC) OLIVA (obstructive sleep apnea) Obstructive sleep apnea (adult) (pediatric) Routine general medical examination at health care facility- Primary Routine general medical examination at a health care facility Type 2 diabetes mellitus with diabetic peripheral angiopathy without gangrene, without long-term current use of insulin (CMS/HCC) Peripheral vascular disease, unspecified (CMS/HCC) Peripheral vascular disease, unspecified Heart failure, unspecified (CMS/HCC) Heart failure, unspecified Epilepsy, unspecified, not intractable, without status epilepticus (CMS/HCC) Other secondary pulmonary hypertension (CMS/HCC) Atherosclerosis of aorta (CMS/HCC) Atherosclerosis of aorta Medicare annual wellness visit, subsequent Diabetes mellitus with peripheral vascular disease (CMS/HCC) Type 2 diabetes mellitus with diabetic polyneuropathy, with long-term current use of insulin (CMS/HCC)- Primary Mixed hyperlipidemia (CMS/HCC) Mixed hyperlipidemia Agitation states as acute reaction to exceptional (gross) stress Predominant psychomotor disturbance as reaction to stress Essential hypertension (CMS/HCC) Unspecified essential hypertension Other insomnia Hypertensive emergency (CMS/HCC) documented in this encounter [facility]* Diagnosis Acute bilateral low back pain with sciatica, sciatica laterality unspecified- Primary Type 2 diabetes mellitus with diabetic polyneuropathy, with long-term current use of insulin (CMS/HCC) Lumbar spondylosis Lumbosacral spondylosis without myelopathy Lumbar adjacent segment disease with spondylolisthesis- Primary Acute bilateral low back pain with bilateral sciatica Type 2 diabetes mellitus with diabetic polyneuropathy, with long-term current use of insulin (CMS/HCC) Bilateral carotid artery stenosis Occlusion and stenosis of carotid artery without mention of cerebral infarction Claustrophobia (CMS/HCC) Other isolated or specific phobias Type 2 diabetes mellitus with diabetic peripheral angiopathy without gangrene, without long-term current use of insulin (CMS/HCC) Hypervitaminosis B6- Primary Other hyperalimentation Acute bilateral low back pain with bilateral sciatica Lumbar adjacent segment disease with spondylolisthesis Lumbar spondylosis Lumbosacral spondylosis without myelopathy Stenosis of carotid artery, unspecified laterality Lumbar paraspinal muscle spasm Other symptoms referable to back Carpal tunnel syndrome, bilateral Carpal tunnel syndrome Migraine without aura and without status migrainosus, not intractable (CMS/HCC) OLIVA (obstructive sleep apnea) Obstructive sleep apnea (adult) (pediatric) Routine general medical examination at health care facility- Primary Routine general medical examination at a health care facility Type 2 diabetes mellitus with diabetic peripheral angiopathy without gangrene, without long-term current use of insulin (CMS/HCC) Peripheral vascular disease, unspecified (CMS/HCC) Peripheral vascular disease, unspecified Heart failure, unspecified (CMS/HCC) Heart failure, unspecified Epilepsy, unspecified, not intractable, without status epilepticus (CMS/HCC) Other secondary pulmonary hypertension (CMS/HCC) Atherosclerosis of aorta (CMS/HCC) Atherosclerosis of aorta Medicare annual wellness visit, subsequent Diabetes mellitus with peripheral vascular disease (CMS/HCC) Type 2 diabetes mellitus with diabetic polyneuropathy, with long-term current use of insulin (CMS/HCC)- Primary Mixed hyperlipidemia (CMS/HCC) Mixed hyperlipidemia Agitation states as acute reaction to exceptional (gross) stress Predominant psychomotor disturbance as reaction to stress Essential hypertension (CMS/HCC) Unspecified essential hypertension Other insomnia Hypertensive emergency (CMS/HCC) Essential hypertension (CMS/HCC) Unspecified essential hypertension documented in this encounter [facility]* Diagnosis Acute bilateral low back pain with sciatica, sciatica laterality unspecified- Primary Type 2 diabetes mellitus with diabetic polyneuropathy, with long-term current use of insulin (CMS/HCC) Lumbar spondylosis Lumbosacral spondylosis without myelopathy Lumbar adjacent segment disease with spondylolisthesis- Primary Acute bilateral low back pain with bilateral sciatica Type 2 diabetes mellitus with diabetic polyneuropathy, with long-term current use of insulin (CMS/HCC) Bilateral carotid artery stenosis Occlusion and stenosis of carotid artery without mention of cerebral infarction Claustrophobia (CMS/[facility]) Other isolated or specific phobias Type 2 diabetes mellitus with diabetic peripheral angiopathy without gangrene, without long-term current use of insulin (CMS/[facility]) Hypervitaminosis B6- Primary Other hyperalimentation Acute bilateral low back pain with bilateral sciatica Lumbar adjacent segment disease with spondylolisthesis Lumbar spondylosis Lumbosacral spondylosis without myelopathy Stenosis of carotid artery, unspecified laterality Lumbar paraspinal muscle spasm Other symptoms referable to back Carpal tunnel syndrome, bilateral Carpal tunnel syndrome Migraine without aura and without status migrainosus, not intractable (CMS/[facility]) OLIVA (obstructive sleep apnea) Obstructive sleep apnea (adult) (pediatric) Routine general medical examination at health care facility- Primary Routine general medical examination at a health care facility Type 2 diabetes mellitus with diabetic peripheral angiopathy without gangrene, without long-term current use of insulin (CMS/HCC) Peripheral vascular disease, unspecified (CMS/HCC) Peripheral vascular disease, unspecified Heart failure, unspecified (CMS/HCC) Heart failure, unspecified Epilepsy, unspecified, not intractable, without status epilepticus (CMS/HCC) Other secondary pulmonary hypertension (CMS/HCC) Atherosclerosis of aorta (CMS/[facility]) Atherosclerosis of aorta Medicare annual wellness visit, subsequent Diabetes mellitus with peripheral vascular disease (CMS/[facility]) Type 2 diabetes mellitus with diabetic polyneuropathy, with long-term current use of insulin (CMS/HCC)- Primary Mixed hyperlipidemia (CMS/HCC) Mixed hyperlipidemia Agitation states as acute reaction to exceptional (gross) stress Predominant psychomotor disturbance as reaction to stress Essential hypertension (CMS/HCC) Unspecified essential hypertension Other insomnia Hypertensive emergency (CMS/[facility]) Other insomnia documented in this encounter [facility]* Diagnosis Acute bilateral low back pain with sciatica, sciatica laterality unspecified- Primary Type 2 diabetes mellitus with diabetic polyneuropathy, with long-term current use of insulin ([facility]) Lumbar spondylosis Lumbosacral spondylosis without myelopathy Lumbar adjacent segment disease with spondylolisthesis- Primary Acute bilateral low back pain with bilateral sciatica Type 2 diabetes mellitus with diabetic polyneuropathy, with long-term current use of insulin ([facility]) Bilateral carotid artery stenosis Occlusion and stenosis of carotid artery without mention of cerebral infarction Claustrophobia ([facility]) Other isolated or specific phobias Type 2 diabetes mellitus with diabetic peripheral angiopathy without gangrene, without long-term current use of insulin ([facility]) Hypervitaminosis B6- Primary Other hyperalimentation Acute bilateral low back pain with bilateral sciatica Lumbar adjacent segment disease with spondylolisthesis Lumbar spondylosis Lumbosacral spondylosis without myelopathy Stenosis of carotid artery, unspecified laterality Lumbar paraspinal muscle spasm Other symptoms referable to back Carpal tunnel syndrome, bilateral Carpal tunnel syndrome Migraine without aura and without status migrainosus, not intractable ([facility]) OLIVA (obstructive sleep apnea) Obstructive sleep apnea (adult) (pediatric) Routine general medical examination at health care facility- Primary Routine general medical examination at a health care facility Type 2 diabetes mellitus with diabetic peripheral angiopathy without gangrene, without long-term current use of insulin ([facility]) Peripheral vascular disease, unspecified ([facility]) Peripheral vascular disease, unspecified Heart failure, unspecified ([facility]) Heart failure, unspecified Epilepsy, unspecified, not intractable, without status epilepticus Other secondary pulmonary hypertension Atherosclerosis of aorta ([facility]) Atherosclerosis of aorta Medicare annual wellness visit, subsequent Diabetes mellitus with peripheral vascular disease ([facility]) Type 2 diabetes mellitus with diabetic polyneuropathy, with long-term current use of insulin ([facility])- Primary Mixed hyperlipidemia ([facility]) Mixed hyperlipidemia Agitation states as acute reaction to exceptional (gross) stress Predominant psychomotor disturbance as reaction to stress Essential hypertension ([facility]) Unspecified essential hypertension Other insomnia Hypertensive emergency ([facility]) Other insomnia documented in this encounter [facility] Diagnosis Acute bilateral low back pain with sciatica, sciatica laterality unspecified- Primary Type 2 diabetes mellitus with diabetic polyneuropathy, with long-term current use of insulin ([facility]) Lumbar spondylosis Lumbosacral spondylosis without myelopathy Lumbar adjacent segment disease with spondylolisthesis- Primary Acute bilateral low back pain with bilateral sciatica Type 2 diabetes mellitus with diabetic polyneuropathy, with long-term current use of insulin (CMS/HCC) Bilateral carotid artery stenosis Occlusion and stenosis of carotid artery without mention of cerebral infarction Claustrophobia (CMS/HCC) Other isolated or specific phobias Type 2 diabetes mellitus with diabetic peripheral angiopathy without gangrene, without long-term current use of insulin (CMS/HCC) Hypervitaminosis B6- Primary Other hyperalimentation Acute bilateral low back pain with bilateral sciatica Lumbar adjacent segment disease with spondylolisthesis Lumbar spondylosis Lumbosacral spondylosis without myelopathy Stenosis of carotid artery, unspecified laterality Lumbar paraspinal muscle spasm Other symptoms referable to back Carpal tunnel syndrome, bilateral Carpal tunnel syndrome Migraine without aura and without status migrainosus, not intractable (CMS/HCC) OLIVA (obstructive sleep apnea) Obstructive sleep apnea (adult) (pediatric) Routine general medical examination at health care facility- Primary Routine general medical examination at a health care facility Type 2 diabetes mellitus with diabetic peripheral angiopathy without gangrene, without long-term current use of insulin (CMS/HCC) Peripheral vascular disease, unspecified (CMS/HCC) Peripheral vascular disease, unspecified Heart failure, unspecified (CMS/HCC) Heart failure, unspecified Epilepsy, unspecified, not intractable, without status epilepticus Other secondary pulmonary hypertension Atherosclerosis of aorta (CMS/HCC) Atherosclerosis of aorta Medicare annual wellness visit, subsequent Diabetes mellitus with peripheral vascular disease ([facility]/H[facility]) Type 2 diabetes mellitus with diabetic polyneuropathy, with long-term current use of insulin (CMS/HCC)- Primary Mixed hyperlipidemia (CMS/HCC) Mixed hyperlipidemia Agitation states as acute reaction to exceptional (gross) stress Predominant psychomotor disturbance as reaction to stress Essential hypertension (CMS/HCC) Unspecified essential hypertension Other insomnia Hypertensive emergency ([facility]) Diabetes mellitus with peripheral vascular disease (CMS/HCC)- Primary Epilepsy, unspecified, not intractable, without status epilepticus Other secondary pulmonary hypertension Heart failure, unspecified (CMS/HCC) Heart failure, unspecified Benign hypertension (CMS/HCC) Essential hypertension, benign Grade II diastolic dysfunction Type 2 diabetes mellitus with diabetic polyneuropathy, with long-term current use of insulin ([facility]) Bilateral carotid bruits documented in this encounter [facility]* Diagnosis Acute bilateral low back pain with sciatica, sciatica laterality unspecified- Primary Type 2 diabetes mellitus with diabetic polyneuropathy, with long-term current use of insulin (HCC) Lumbar spondylosis Lumbosacral spondylosis without myelopathy Lumbar adjacent segment disease with spondylolisthesis- Primary Acute bilateral low back pain with bilateral sciatica Type 2 diabetes mellitus with diabetic polyneuropathy, with long-term current use of insulin (HCC) Bilateral carotid artery stenosis Occlusion and stenosis of carotid artery without mention of cerebral infarction Claustrophobia Other isolated or specific phobias Type 2 diabetes mellitus with diabetic peripheral angiopathy without gangrene, without long-term current use of insulin (HCC) Hypervitaminosis B6- Primary Other hyperalimentation Acute bilateral low back pain with bilateral sciatica Lumbar adjacent segment disease with spondylolisthesis Lumbar spondylosis Lumbosacral spondylosis without myelopathy Stenosis of carotid artery, unspecified laterality Lumbar paraspinal muscle spasm Other symptoms referable to back Carpal tunnel syndrome, bilateral Carpal tunnel syndrome Migraine without aura and without status migrainosus, not intractable OLIVA (obstructive sleep apnea) Obstructive sleep apnea (adult) (pediatric) Routine general medical examination at health care facility- Primary Routine general medical examination at a health care facility Type 2 diabetes mellitus with diabetic peripheral angiopathy without gangrene, without long-term current use of insulin (HCC) Peripheral vascular disease, unspecified Heart failure, unspecified (HCC) Heart failure, unspecified Epilepsy, unspecified, not intractable, without status epilepticus (HCC) Other secondary pulmonary hypertension (HCC) Atherosclerosis of aorta Medicare annual wellness visit, subsequent Diabetes mellitus with peripheral vascular disease (HCC) Type 2 diabetes mellitus with diabetic polyneuropathy, with long-term current use of insulin (HCC)- Primary Mixed hyperlipidemia Mixed hyperlipidemia Agitation states as acute reaction to exceptional (gross) stress Predominant psychomotor disturbance as reaction to stress Essential hypertension Unspecified essential hypertension Other insomnia Hypertensive emergency Diabetes mellitus with peripheral vascular disease (HCC)- Primary Epilepsy, unspecified, not intractable, without status epilepticus (HCC) Other secondary pulmonary hypertension (HCC) Heart failure, unspecified (HCC) Heart failure, unspecified Benign hypertension Essential hypertension, benign Grade II diastolic dysfunction Type 2 diabetes mellitus with diabetic polyneuropathy, with long-term current use of insulin (HCC) Bilateral carotid bruits Other insomnia documented in this encounter [facility]* Diagnosis Acute bilateral low back pain with sciatica, sciatica laterality unspecified- Primary Type 2 diabetes mellitus with diabetic polyneuropathy, with long-term current use of insulin (HCC) Lumbar spondylosis Lumbosacral spondylosis without myelopathy Lumbar adjacent segment disease with spondylolisthesis- Primary Acute bilateral low back pain with bilateral sciatica Type 2 diabetes mellitus with diabetic polyneuropathy, with long-term current use of insulin (HCC) Bilateral carotid artery stenosis Occlusion and stenosis of carotid artery without mention of cerebral infarction Claustrophobia Other isolated or specific phobias Type 2 diabetes mellitus with diabetic peripheral angiopathy without gangrene, without long-term current use of insulin (HCC) Hypervitaminosis B6- Primary Other hyperalimentation Acute bilateral low back pain with bilateral sciatica Lumbar adjacent segment disease with spondylolisthesis Lumbar spondylosis Lumbosacral spondylosis without myelopathy Stenosis of carotid artery, unspecified laterality Lumbar paraspinal muscle spasm Other symptoms referable to back Carpal tunnel syndrome, bilateral Carpal tunnel syndrome Migraine without aura and without status migrainosus, not intractable OLIVA (obstructive sleep apnea) Obstructive sleep apnea (adult) (pediatric) Routine general medical examination at health care facility- Primary Routine general medical examination at a health care facility Type 2 diabetes mellitus with diabetic peripheral angiopathy without gangrene, without long-term current use of insulin (HCC) Peripheral vascular disease, unspecified Heart failure, unspecified (HCC) Heart failure, unspecified Epilepsy, unspecified, not intractable, without status epilepticus (HCC) Other secondary pulmonary hypertension (HCC) Atherosclerosis of aorta Medicare annual wellness visit, subsequent Diabetes mellitus with peripheral vascular disease (HCC) Type 2 diabetes mellitus with diabetic polyneuropathy, with long-term current use of insulin (HCC)- Primary Mixed hyperlipidemia Mixed hyperlipidemia Agitation states as acute reaction to exceptional (gross) stress Predominant psychomotor disturbance as reaction to stress Essential hypertension Unspecified essential hypertension Other insomnia Hypertensive emergency Diabetes mellitus with peripheral vascular disease (HCC)- Primary Epilepsy, unspecified, not intractable, without status epilepticus (HCC) Other secondary pulmonary hypertension (HCC) Heart failure, unspecified (HCC) Heart failure, unspecified Benign hypertension Essential hypertension, benign Grade II diastolic dysfunction Type 2 diabetes mellitus with diabetic polyneuropathy, with long-term current use of insulin (HCC) Bilateral carotid bruits Essential hypertension Unspecified essential hypertension documented in this encounter [facility]* Diagnosis Acute bilateral low back pain with sciatica, sciatica laterality unspecified- Primary Type 2 diabetes mellitus with diabetic polyneuropathy, with long-term current use of insulin (HCC) Lumbar spondylosis Lumbosacral spondylosis without myelopathy Lumbar adjacent segment disease with spondylolisthesis- Primary Acute bilateral low back pain with bilateral sciatica Type 2 diabetes mellitus with diabetic polyneuropathy, with long-term current use of insulin (HCC) Bilateral carotid artery stenosis Occlusion and stenosis of carotid artery without mention of cerebral infarction Claustrophobia Other isolated or specific phobias Type 2 diabetes mellitus with diabetic peripheral angiopathy without gangrene, without long-term current use of insulin (HCC) Hypervitaminosis B6- Primary Other hyperalimentation Acute bilateral low back pain with bilateral sciatica Lumbar adjacent segment disease with spondylolisthesis Lumbar spondylosis Lumbosacral spondylosis without myelopathy Stenosis of carotid artery, unspecified laterality Lumbar paraspinal muscle spasm Other symptoms referable to back Carpal tunnel syndrome, bilateral Carpal tunnel syndrome Migraine without aura and without status migrainosus, not intractable OLIVA (obstructive sleep apnea) Obstructive sleep apnea (adult) (pediatric) Routine general medical examination at health care facility- Primary Routine general medical examination at a health care facility Type 2 diabetes mellitus with diabetic peripheral angiopathy without gangrene, without long-term current use of insulin (HCC) Peripheral vascular disease, unspecified Heart failure, unspecified (HCC) Heart failure, unspecified Epilepsy, unspecified, not intractable, without status epilepticus (HCC) Other secondary pulmonary hypertension (HCC) Atherosclerosis of aorta Medicare annual wellness visit, subsequent Diabetes mellitus with peripheral vascular disease (HCC) Type 2 diabetes mellitus with diabetic polyneuropathy, with long-term current use of insulin (HCC)- Primary Mixed hyperlipidemia Mixed hyperlipidemia Agitation states as acute reaction to exceptional (gross) stress Predominant psychomotor disturbance as reaction to stress Essential hypertension Unspecified essential hypertension Other insomnia Hypertensive emergency Diabetes mellitus with peripheral vascular disease (HCC)- Primary Epilepsy, unspecified, not intractable, without status epilepticus (HCC) Other secondary pulmonary hypertension (HCC) Heart failure, unspecified (HCC) Heart failure, unspecified Benign hypertension Essential hypertension, benign Grade II diastolic dysfunction Type 2 diabetes mellitus with diabetic polyneuropathy, with long-term current use of insulin (HCC) Bilateral carotid bruits Other insomnia documented in this encounter [facility]* Diagnosis Acute bilateral low back pain with sciatica, sciatica laterality unspecified- Primary Type 2 diabetes mellitus with diabetic polyneuropathy, with long-term current use of insulin (HCC) Lumbar spondylosis Lumbosacral spondylosis without myelopathy Lumbar adjacent segment disease with spondylolisthesis- Primary Acute bilateral low back pain with bilateral sciatica Type 2 diabetes mellitus with diabetic polyneuropathy, with long-term current use of insulin (HCC) Bilateral carotid artery stenosis Occlusion and stenosis of carotid artery without mention of cerebral infarction Claustrophobia Other isolated or specific phobias Type 2 diabetes mellitus with diabetic peripheral angiopathy without gangrene, without long-term current use of insulin (HCC) Hypervitaminosis B6- Primary Other hyperalimentation Acute bilateral low back pain with bilateral sciatica Lumbar adjacent segment disease with spondylolisthesis Lumbar spondylosis Lumbosacral spondylosis without myelopathy Stenosis of carotid artery, unspecified laterality Lumbar paraspinal muscle spasm Other symptoms referable to back Carpal tunnel syndrome, bilateral Carpal tunnel syndrome Migraine without aura and without status migrainosus, not intractable OLIVA (obstructive sleep apnea) Obstructive sleep apnea (adult) (pediatric) Routine general medical examination at health care facility- Primary Routine general medical examination at a health care facility Type 2 diabetes mellitus with diabetic peripheral angiopathy without gangrene, without long-term current use of insulin (HCC) Peripheral vascular disease, unspecified Heart failure, unspecified (HCC) Heart failure, unspecified Epilepsy, unspecified, not intractable, without status epilepticus (HCC) Other secondary pulmonary hypertension (HCC) Atherosclerosis of aorta Medicare annual wellness visit, subsequent Diabetes mellitus with peripheral vascular disease (HCC) Type 2 diabetes mellitus with diabetic polyneuropathy, with long-term current use of insulin (HCC)- Primary Mixed hyperlipidemia Mixed hyperlipidemia Agitation states as acute reaction to exceptional (gross) stress Predominant psychomotor disturbance as reaction to stress Essential hypertension Unspecified essential hypertension Other insomnia Hypertensive emergency Diabetes mellitus with peripheral vascular disease (HCC)- Primary Epilepsy, unspecified, not intractable, without status epilepticus (HCC) Other secondary pulmonary hypertension (HCC) Heart failure, unspecified (HCC) Heart failure, unspecified Benign hypertension Essential hypertension, benign Grade II diastolic dysfunction Type 2 diabetes mellitus with diabetic polyneuropathy, with long-term current use of insulin (HCC) Bilateral carotid bruits Other insomnia documented in this encounter [facility] N[facility]ative - Reported* Type Description Date Medical History carotid stenosis Medical History DM Medical History HTN Medical History Hyperlipidemia Medical History COPD Medical History GERD Medical History HYPOTHYROIDISM Surgical History Carotid endarterectomy right Surgical History choly 1999 Surgical History Hysterectomy 1992 Surgical History LEFT CEA Hospitalization History see above Hospitalization History pgeisert Hospitalization History ACUTE DELIRIUM; 10/02/20 [employer] Other Progress note Author Taylor Tijerina [facility] November 02, 2022 10:02am Note Date/Time November 02, 2022 10:0 1am [facility] [place] [id number] Hem/Onc Follow Up Note - OP Signed Patient: Nuvia Martin MR#: [id number] : 1945 Acct:[id number] Age/Sex: 77 / F Type: REG RCR [...] (Verified 11/02/22 09:45) Diarrhea bacitracin [From Neosporin ([id number])] Adverse Reaction (Verified 11/02/22 09:45) Blister contact metal agent Adverse Reaction (Verified 11/02/22 09:45) Rash neomycin [From Neosporin (bpk-[id number])] Adverse Reaction (Verified 11/02/22 09:45) Blister petrolatum,white [From Petroleum Jelly] Adverse Reaction (Verified 11/02/22 09:45) Blister polymyxin B [From Neosporin (xvk-mmo-qbnzc)] Adverse Reaction (Verified 11/02/2308:45) Blister Home Medications [...] PO QNOON 12/17/19 [History Confirmed 11/02/22] omega 0-aiv-izz-fish oil 1,000 mg (120 mg-180 mg) capsule [...] % (Auto) 60.6, Lymph % (Auto) 26.9, Mathews % (Auto) 9.5, Eos % (Auto) 1.7, Baso % (Auto) 1.3, Nucleat RBC Rel Count 0.2, Neut # (Auto) 3.8, Lymph # (Auto) 1.7, Mathews # (Auto) 0.6, Eos # (Auto) 0.1, [...] for coordination of care (as documented) and xqun-cu-ramd counseling of patient and/or family. Dictated By: Taylor Tijerina APRN DD/ 1000 Signed By: <Electronically signed by CARMELA Tijerina> 11/02/22 1002 [facility] Work Phone: Progress note Author Taylor Tijerina [facility] February 01, 2023 11:23am Note Date/Time February 01, 2023 11:04am [facility] [place] [address] Hem/Onc Follow Up Note - OP Signed Patient: Nuvia Martin MR#: [id number] : 1945 Acct:[id number] Age/Sex: 77 / F Type: REG RCR [...] for coordination of care (as documented) and bdcv-nd-svse counseling of patient and/or family. [facility] - Medical History Medical History: Medical History [...] % (Auto) 61.7, Lymph % (Auto) 26.2, Mathews % (Auto) 9.2, Eos % (Auto) 2.0, Baso % (Auto) 0.9, Nucleat RBC Rel Count 0.1, Neut # (Auto) 4.2, Lymph # (Auto) 1.8, Mathews # (Auto) 0.6, Eos # (Auto) 0.1, Baso # (Auto) 0.1 - Home Medications and Allergies Allergies/Adverse Reactions: Allergies cimetidine [From Tagamet] Allergy (Verified 02/01/23 10:56) Diarrhea bacitracin [From Neosporin (ftv-wjl-wpudq)] Adverse Reaction (Verified 02/01/23 10:56) Blister contact metal agent Adverse Reaction (Verified 02/01/23 10:56) Rash neomycin [From Neosporin (drl-tdb-oqbvj)] Adverse Reaction (Verified 02/01/23 10:56) Blister petrolatum,white [From Petroleum Jelly] Adverse Reaction (Verified 02/01/23 10:56) Blister polymyxin B [From Neosporin (gqk-tnc-mhnpy)] Adverse Reaction (Verified 02/01/2310:56) Blister Home Medications: [...] 500 mg PO BID 12/17/19 [History Confirmed 02/01/23] niacin 500 mg tablet 500 mg PO QNOON 12/17/19 [History Confirmed 02/01/23] omega 2-ofh-ylb-fish oil 1,000 mg (120 mg-180 mg) capsule [...] <Electronically signed by CARMELA Tijerina> 02/01/23 [address] [facility] Work Phone: Reason for referral (narrative)* Consultation (Routine) - Pending Review Specialty Diagnoses / Procedures Referred By David t Referred To Contact Pain Medicine Diagnoses Lumbar spondylosis 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 claudication Procedures [place] OFFICE/OUTPATIENT [facility] 60 MINUTES Wily Prado MD [address] [address] Danitza Murray MD [address] [place] [address] Referral ID Status Reason Start Date Expiration Date Visits Requested Visits Authorized [id number] Pending Review Specialty Services Required 01/17/2024 07/15/2024 1 1 [facility] Summary Purpose Family History Relationship Condition Age at Onset Recorded Date/T rosa Not Specified Malignant neoplasm of pancreas Unknown Diabetes mellitus Unknown Malignant neoplasm of breast Unknown father Diabetes mellitus Unknown Heart disease Unknown sister Malignant neoplasm of breast Unknown Relationship Condition Age at Onset Recorded Date/T rosa Not Specified Malignant neoplasm of pancreas Unknown Diabetes mellitus Unknown Malignant neoplasm of breast Unknown father Diabetes mellitus Unknown Heart disease Unknown sister Malignant neoplasm of breast Unknown brother Malignant neoplasm of breast Unknown Malignant neoplasm Unknown Hypertension Unknown father Heart disease Unknown Unknown Not Specified Unknown Relationship Condition Age at Onset Recorded Date/T rosa mother Malignant neoplasm of pancreas Unknown Diabetes mellitus Unknown Malignant neoplasm of breast Unknown father Diabetes mellitus Unknown Heart disease Unknown sister Malignant neoplasm of breast Unknown brother Malignant neoplasm of breast Unknown Malignant neoplasm Unknown Hypertension Unknown father Heart disease Unknown Unknown mother Unknown Advance Directives Advance Directive Response Recorded Date/ Time Advance Directives No December 11 3:31pm Advance Directive Response Recorded Date/ Time Advance Directives No December 11 2:31pm Chief Complaint and Reason for Visit Chief Complaint Iron Def /Anemia Reason for Visit Iron deficiency anem ia Chief Complaint Anemia Iron Def /Anemia Reason for Visit Iron deficiency anem ia Chief Complaint m43.16 m54.42 m54.41 Additional Source Comments INFORMATION SOURCE (unrecogn ized section and content) DATE CREATED AUTHOR 10/04/2021 [facility] DATE CREATED AUTHOR AUTHOR'S ORGANIZ ATION 01/25/2022 [facility] DATE CREATED AUTHOR AUTHOR'S ORGANIZ ATION 02/23/2022 [facility] DATE CREATED AUTHOR AUTHOR'S ORGANIZ ATION 03/09/2024 [facility] DATE CREATED AUTHOR AUTHOR'S ORGANIZ ATION 05/13/2024 [facility] DATE CREATED AUTHOR AUTHOR'S ORGANIZ ATION 10/23/2024 [facility] DATE CREATED AUTHOR AUTHOR'S ORGANIZ ATION 12/02/2024 [facility] REASON FOR VISIT (unrecogniz ed section and content) Reason Comments Fall Reason Onset Date Comments Med Refill 06/16/2023 [facility] [place] Specialty Diagnoses / Procedures Referred By Contac t Referred To Contact Physical Therapy Diagnoses Acute bilateral low back pain with sciatica, sciatica laterality unspecified Lumbar spondylosis Procedures [place] OFFICE/OUTPATIENT NEW HIGH MDM 60 MINUTES Wily Prado MD [address] [facility] [address] [place] [address] Som Sheffield, PT [address] [facility] [address] [place] [address] Referral ID Status Reason Start Date Expiration Date Visits Requested Visits Authorized [id number] Authorized Specialty Services Required 3 11/06/2023 10 10 Reason Onset Date Comments Med Refill 02/15/2024 Reason Onset Date Comments Med Refill 03/20/2024 Reason Onset Date Comments Med Refill 03/26/2024 Specialty Diagnoses / Procedures Referred By David chin Referred To Contact Physical Therapy Diagnoses Muscle spasm of back lumbar paraspinal muscle spasms Procedures consult and treat Logan Kaur MD [address] [facility] [address] [place] [address] Jalyn Guan PT Referral ID Status Reason Start Date Expiration Date Visits Requested Visits Authorized [id number] Authorized Consult and Treat 12/20/2023 06/17/2024 15 15 Reason Comments dicuss pain management Reason Comments Med Refill Reason Onset Date Comments Med Refill 05/04/2024 Reason Onset Date Comments Med Refill 08/09/2024 Reason Onset Date Comments Med Refill 10/09/2024 Reason Comments Diabetes Last A1c was 5.2 Reason Onset Date Comments Med Refill 11/09/2024 Reason Onset Date Comments Med Refill 12/10/2024 Reason Onset Date Comments Med Refill 12/14/2024 Care Teams (unrecognized sec tion and content) Team Status: Active Member Role Status Amber Prado MD Primary Care Provider Active Team Status: Inactive Member Role Status Dates Wily Prado MD Primary Care Provide r, Attending Provider Active Start: September 16, 2023 End: September 16, 2023 Team Status: Active Member Role Status Amber Prado MD Primary Care Provider, Referring Pro vider Active Taylor Tijerina APRN Attending Provider Acti primo Team Status: Inactive Member Role Status Dates Wily Prado MD Primary Care Provider Active Jesse Tran MD Attending Provider Active Embedded Firmware Developer Relationship Specialty Start Date End Date Wily Prado MD [address] [facility] [address] [place] [address] PCP - ACO Reach 10/07/22 iWly Prado MD [address] [facility] [address] [place] [address] PCP - General Family Medicine 10/28/22 Embedded Firmware Developer Relationship Specialty Start Date End Date Wily Prado MD [address] [facility] [address] [place] [address] PCP - ACO Reach 10/07/22 Wily Prado MD [address] [facility] [address] [place] [address] PCP - General Family Medicine 10/28/22 Embedded Firmware Developer Relationship Specialty Start Date End Date Wily Prado MD [address] [facility] [address] [place] [address] PCP - ACO Reach 10/07/22 Wily Prado MD [address] [facility] [address] [place] [address] PCP - General Family Medicine 10/28/22 Embedded Firmware Developer Relationship Specialty Start Date End Date Wily Prado MD [address] [facility] [address] [place] [address] PCP - ACO Reach 10/07/22 Wily Prado MD [address] [facility] [address] [place] [address] PCP - General Family Medicine 10/28/22 Embedded Firmware Developer Relationship Specialty Start Date End Date Wily Prado MD [address] [facility] [address] [place] [address] PCP - ACO Reach 10/07/22 Wily Prado MD [address] [facility] [address] [place] [address] PCP - General Family Medicine 10/28/22 Embedded Firmware Developer Relationship Specialty Start Date End Date Wily Prado MD [address] [facility] [address] [place] [address] PCP - ACO Reach 10/07/22 Wily Prado MD [address] [facility] [address] [place] [address] PCP - General Family Medicine 10/28/22 Embedded Firmware Developer Relationship Specialty Start Date End Date Wily Prado MD [address] [facility] [address] [place] [address] PCP - ACO Reach 10/07/22 Wily Prado MD [address] [facility] [address] [place] [address] PCP - General Family Medicine 10/28/22 Embedded Firmware Developer Relationship Specialty Start Date End Date Wily Prado MD [address] [facility] [address] [place] [address] PCP - ACO Reach 10/07/22 Wily Prado MD [address] [facility] [address] [place] [address] PCP - General Family Medicine 10/28/22 Embedded Firmware Developer Relationship Specialty Start Date End Date Wily Prado MD [address] [facility] [address] [place] [address] PCP - ACO Reach 10/07/22 Wily Prado MD [address] [facility] [address] [place] [address] PCP - General Family Medicine 10/28/22 Embedded Firmware Developer Relationship Specialty Start Date End Date Wily Prado MD [address] [facility] [address] [place] [address] PCP - ACO Reach 10/07/22 Wily Prado MD [address] [facility] [address] [place] [address] PCP - General Family Medicine 10/28/22 Embedded Firmware Developer Relationship Specialty Start Date End Date Wily Prado MD [address] [facility] [address] [place] [address] PCP - ACO Reach 10/07/22 Wily Prado MD [address] [facility] [address] [place] [address] PCP - General Family Medicine 10/28/22 Embedded Firmware Developer Relationship Specialty Start Date End Date Wily Prado MD [address] [facility] [address] [place] [address] PCP - ACO Reach 10/07/22 Wily Prado MD [address] [facility] [address] [place] [address] PCP - General Family Medicine 10/28/22 Embedded Firmware Developer Relationship Specialty Start Date End Date Wily Prado MD [address] [facility] [address] [place] [address] PCP - ACO Reach 10/07/22 Wily Prado MD [address] [facility] [address] [place] [address] PCP - General Family Medicine 10/28/22 Embedded Firmware Developer Relationship Specialty Start Date End Date Wily Prado MD [address] [facility] [address] [place] [address] PCP - ACO Reach 10/07/22 Wily Prado MD [address] [facility] [address] [place] [address] PCP - General Family Medicine 10/28/22 Embedded Firmware Developer Relationship Specialty Start Date End Date Wily Prado MD [address] [facility] [address] [place] [address] PCP - ACO Reach 10/07/22 Wily Prado MD [address] [facility] [address] [place] [address] PCP - General Family Medicine 10/28/22 Embedded Firmware Developer Relationship Specialty Start Date End Date Wily Prado MD [address] [facility] [address] [place] [address] PCP - ACO Reach 10/07/22 Wily Prado MD [address] [facility] [address] [place] [address] PCP - General Family Medicine 10/28/22 Embedded Firmware Developer Relationship Specialty Start Date End Date Wily Prado MD [address] [facility] [address] [place] [address] PCP - ACO Reach 10/07/22 Wily Prado MD [address] [facility] [address] [place] [address] PCP - General Family Medicine 10/28/22 Embedded Firmware Developer Relationship Specialty Start Date End Date Wily Prado MD [address] [facility] [address] [place] [address] PCP - ACO Reach 10/07/22 Wily Prado MD [address] [facility] [address] [place] [address] PCP - General Family Medicine 10/28/22 Embedded Firmware Developer Relationship Specialty Start Date End Date Wily Prado MD [address] [facility] [address] [place] [address] PCP - ACO Reach 10/07/22 Wily Prado MD [address] [facility] [address] [place] [address] PCP - General Family Medicine 10/28/22 Embedded Firmware Developer Relationship Specialty Start Date End Date Wily Prado MD [address] [facility] [address] [place] [address] PCP - ACO Reach 10/07/22 Wily Prado MD [address] [facility] [address] [place] [address] PCP - General Family Medicine 10/28/22 Embedded Firmware Developer Relationship Specialty Start Date End Date Wily Prado MD [address] [facility] [address] [place] [address] PCP - ACO Reach 10/07/22 Wily Prado MD [address] [facility] [address] [place] [address] PCP - General Family Medicine 10/28/22 Embedded Firmware Developer Relationship Specialty Start Date End Date Wily Prado MD [address] [facility] [address] [place] [address] PCP - ACO Reach 10/07/22 Wily Prado MD [address] [facility] [address] [place] [address] PCP - General Family Medicine 10/28/22 Embedded Firmware Developer Relationship Specialty Start Date End Date Wily Prado MD [address] [facility] [address] [place] [address] PCP - ACO Reach 10/07/22 Wily Prado MD [address] [facility] [address] [place] [address] PCP - General Family Medicine 10/28/22 Goals [...] BE BASED ON THE PRIMARY CLINICAL RECORDS. [employer] [facility]. provides no warranty or guarantee of the accuracy or completeness of information in this document.
--- NOTE | 2024-12-27 12:56 | PM.CN ---
Consult Note: HPI Data of Consult Patient: known to practice within the last 3 years Consult date: 12/27/24 Requesting Physician: Maria Antonia Powers NP Primary Care Provider: WILY PRADO Consult Narrative Reason for consult: back pain Narrative: Lovely Martin a pleasant 79 year old female presents for evaluation of low back pain secondary to lumbar stenosis, lumbar ddd, and lumbar spondylosis. pt has failed to benefit from > 6 weeks of PT/HEP, heat, ice, tylenol, nsaids. recently underwent bilateral L4-5 L5-S1 mbb #1 with no improvement while anesthetized. pain today 6/10 increasing to 8/10 with standing walking and lifting, improves significantly with forward flexion and sitting. SHANNAN 31%. cc:: CC: Maria Antonia Powers NP [facility] Medical History (Updated 12/27/24 @ 12:59 by Maria Antonia Powers NP) Low back pain ?M54.50 - Low back pain, unspecified (ICD-10) Smoker ?F17.200 - Nicotine dependence, unspecified, uncomplicated (ICD-10) PVD (peripheral vascular disease) ?I73.9 - Peripheral vascular disease, unspecified (ICD-10) Type 2 diabetes mellitus with hyperglycemia ?E11.65 - Type 2 diabetes mellitus with hyperglycemia (ICD-10) Lumbar degenerative disc disease ?M51.36 - Other intervertebral disc degeneration, lumbar region (ICD-10) Hypertension ?I10 - Essential (primary) hypertension (ICD-10) Medication side effect ?T88.7XXA - Unspecified adverse effect of drug or medicament, initial encounter (ICD-10) Chronic back pain ?M54.9 - Dorsalgia, unspecified (ICD-10) ?G89.29 - Other chronic pain (ICD-10) Diabetes ?E11.9 - Type 2 diabetes mellitus without complications (ICD-10) Choking ?T17.308A - Unspecified foreign body in larynx causing other injury, initial encounter (ICD-10) GERD (gastroesophageal reflux disease) ?K21.9 - Gastro-esophageal reflux disease without esophagitis (ICD-10) Surgical History (Updated 12/07/24 @ 09:04 by Grace Abbott) H/O heart artery stent ?Z95.5 - Presence of coronary angioplasty implant and graft (ICD-10) H/O: hysterectomy ?Z90.710 - Acquired absence of both cervix and uterus (ICD-10) History of cholecystectomy ?Z90.49 - Acquired absence of other specified parts of digestive tract (ICD-10) Social History Smoking status: Current every day smoker Meds Home Medications and Allergies Home Medications ?Medication ?Instructions ?Recorded ?Confirmed ?Type Lantus Solostar U-100 Insulin 05/15/23 History Ventolin HFA 05/15/23 History atorvastatin 20 mg tablet 20 mg PO DAILY 05/15/23 12/24/24 History clopidogrel 75 mg tablet 75 mg PO DAILY 05/15/23 12/24/24 History fenofibrate nanocrystallized 145 145 mg PO .qd 05/15/23 12/24/24 History mg tablet gabapentin 600 mg tablet 600 mg PO Q8H 05/15/23 12/24/24 History hydrochlorothiazide 25 mg tablet 25 mg PO DAILY 05/15/23 12/24/24 History ipratropium 0.5 mg-albuterol 3 mg 3 ml inhalation Q6H 05/15/23 12/24/24 History (2.5 mg base)/3 mL nebulization soln lisinopril 40 mg tablet 40 mg PO DAILY 05/15/23 12/24/24 History metoprolol tartrate 25 mg tablet 25 mg PO TID 05/15/23 12/24/24 History omeprazole 20 mg capsule,delayed 20 mg PO .qd 05/15/23 12/24/24 History release oxcarbazepine 300 mg tablet 300 mg PO BID 05/15/23 12/24/24 History sitagliptin phosphate 50 2 tab PO DAILY 05/15/23 12/24/24 History mg-metformin 500 mg tablet (Janumet) tiotropium 2.5 mcg-olodaterol 2.5 2 puff inhalation Q24H 05/15/23 12/24/24 History mcg/actuation mist for inhalation (Stiolto Respimat) torsemide 10 mg tablet 10 mg PO DAILY 05/15/23 12/24/24 History alprazolam 0.5 mg tablet 0.5 mg PO DAILY 11/20/24 12/24/24 History amlodipine 10 mg tablet 10 mg PO DAILY 11/20/24 12/24/24 History naproxen 500 mg tablet 500 mg PO Q12H 11/20/24 12/24/24 History Allergies Allergy/AdvReac Type Severity Reaction Status Date / Time nickel Allergy Mild Rash Verified 12/24/24 09:28 petrolatum,white (From AdvReac Severe Blister Verified 12/24/24 09:28 Petroleum Jelly) tagemet AdvReac Severe Diarrhea Uncoded 12/24/24 09:28 Exam Constitutional Documenting provider has reviewed patient's vital signs: yes Common normals: no apparent distress, oriented x3, healthy appearing, alert and well nourished General appearance: cooperative HENMT Common normals: normocephalic, hearing grossly normal bilaterally and moist oral mucous membranes Head and scalp: normocephalic Eye Common normals: PERRL Pupil: PERRL Neck & C-Spine Common normals: full ROM General: normal visual inspection Chest Common normals: inspection of chest normal Respiratory Common normals: normal respiratory effort, no retractions and no use of accessory muscles Back & Pelvis Lumbar spine/lower back: ROM limited, pain with ROM and straight leg raise negative bilaterally; no lumbar spinal tenderness Other: increased low back pain with standing and walking, significant improvement with forward flexion and sitting strength 4/5 in BLE decreased sensation bilateral L3,4,5 Neuro Common normals: oriented x3 Sensorium/orientation: alert Psych Common normals: mental status grossly normal, thought process normal, cooperative, affect normal, speech normal and activity/motor behavior normal Speech: normal speech Thought process: normal thought process Results Additional Findings Additional findings: If on a controlled substance or opioids, I have checked an [place] report on this patient and there are no aberrancies noted in the prescribing history.??If on a controlled substance or opioid a drug screen was completed and reviewed within the last year, and if there has not been a drug screen completed we ordered one today to monitor higher risk, state monitored pain medication use. As part of providing excellent, safe, comprehensive care, the following was completed at our patient's visit: 1. A medication reconciliation and review to ensure accurate knowledge of current/active medications, including asking our patients to inform us about any [id number] medications or herbal remedies/nutritional supplements/alternative remedies. 2. A review to specifically ensure our patients have had annual screening for screening for depression, screening for tobacco use, and screening for unhealthy alcohol use. For concerning screenings had a discussion with the patient, provided patient education, and recommended follow-up with primary care provider when appropriate. If patient noted with a risk of falling, they received education on strength, gait, and balance training to prevent future risk of falling. Portions of this note may have been carried over from the previous visit and updated as appropriate. Please note this office utilizes paper charting in addition to the electronic medical record. A list of current medications, vitals, and PMH is available there as the clinical staff outside of myself do not have access to [employer] charting during the clinic day operations. As part of providing quality comprehensive care the current medications, vitals, and PMH were reviewed in the paper chart. Assessment and Plan Assessment and Plan (1) Lumbar stenosis with neurogenic claudication: (2) Lumbar spondylosis: (3) Other intervertebral disc degeneration, lumbar region with discogenic back pain only: Plan lumbar MRI reviewed with pt, proceed with bilateral L4-5 TFESI for lumbar stenosis with NC under fluoroscopy defer additional medication management due to polypharmacy and hx of falls continue HEP as tolerated f/u 2 weeks after injection, may consider bilateral L3-4 TFESI due to multilevel stenosis
== END 2024-12-27 12:23 | disposition home or self-care (01) ==
LOC: PM 12:22
PROVIDERS: PCP Family Medicine; Visit Provider Nurse Practitioner
DX: M48.062 Spinal stenosis, lumbar region with neurogenic claudication (principal); M47.816 Spondylosis without myelopathy or radiculopathy, lumbar region; M51.360 Other intervertebral disc degeneration, lumbar region with discogenic back pain only
CPT/HCPCS: G0463

== ENCOUNTER 2025-01-07 08:08 | Day surgery (SDC) | payer MEDICARE, SELFPAY ==
--- OUTSIDE RECORDS SUMMARY | 2025-01-07 08:14 | XMS_ITS | CCD ---
Author Organization [facility] Inform ion Partnership [facility] Care Team Providers Care Seismograph Helper Name Role Phone Mikie West Unavailable MD Wily Prado Primary Care Provider MD Wily Prado Referring Provider CARMELA Tijerina Attending Provider MD Wily Prado Primary Care Provider [phone] MD Wily Prado Referring Provider [phone] CARMELA Tijerina Attending Provider MD Jesse Tran Attending Provider [phone] TODD, DR GINGER Hurley Consulting Unavailable PAY, DR HUNTER Attending Unavailable PAY, DR HUNTER Admitting Unavailable JOHAN, DR JULIEN Primary Care Unavailable PAY, DR HUNTER Consulting Unavailable AUNG ZIMMERMAN Consulting Unavailable ELSIE, AUNG Attending Unavailable AUNG ZIMMERMAN Admitting Unavailable JOHAN, DR JULIEN Primary Care Unavailable MARKER, DR FISHER Attending Unavailable MARKER, DR FISHER Admitting Unavailable MARKER, DR FISHER Consulting Unavailable JOHAN, DR JULIEN Primary Care Unavailable TERRANCE GENAO Consulting Unavailable YAJAIRA, DR LOGAN Hurley Consulting Unavailable GATES, DR LOGAN Hurley Attending Unavailable GATES, DR LOGAN Hurley Admitting Unavailable JOHAN, DR JULIEN Primary Care Unavailable KETAN ALVAREZ Consulting Unavailable PAY, DR HUNTER Attending Unavailable PAY, DR HUNTER Admitting Unavailable HAYDENLUMA Consulting Unavailable JOHAN, DR JULIEN Primary Care Unavailable TODD, DR GINGER Hurley Consulting Unavailable ELSIE, AUNG Attending Unavailable ELSIE, AUNG Admitting Unavailable JOHAN, DR JULIEN Primary Care Unavailable TERRANCE GENAO Consulting Unavailable ZAC HANKINS Attending Unavailable KATIRPURVI, ZAC Admitting Unavailable ZIEBER, [...] Unavailable GATES, DR LOGAN Hurley Attending Unavailable GATES, DR LOGAN Hurley Admitting Unavailable JOHAN, DR JULIEN Primary Care Unavailable CHRISTINA, CARSON Consulting Unavailable JANET SCHWARTZ Consulting Unavailable MD Wily Prado Primary Care Provider MD Wily Prado Referring Provider CARMELA Tijerina Attending Provider PROVIDER, UNKNOWN Admitting Unavailable PROVIDER, UNKNOWN Attending Unavailable PROVIDER, UNKNOWN Admitting Unavailable PROVIDER, UNKNOWN Attending Unavailable Unavailable Primary Care Provider UnavailMD Wily Zhang Primary Care Provider [phone] MD Wily Prado Referring Provider [phone] CARMELA Tijerina Attending Provider MD Wily Prado Primary Care Provider [phone] MD Wily Prado Referring Provider CARMELA Tijerina Attending Provider MD Wily Prado Primary Care Provider MD Wily Prado Referring Provider [phone] CARMELA Tijerina Attending Provider MD Wily Prado Primary Care Provider [phone] MD Wily Prado Referring Provider FITO TijerinaN Narcisa Attending Provider Wily Prado MD Unavailable iWly Prado MD Primary Care Provider [phone] MD Wily Prado Primary Care Provider MD Wily Prado Attending Provider [phone] Wily Prado Attending Unavailable Wily Prado Primary [...] Unavailable Trevor HERNANDEZ, Danitza Egan Attending Unavailable Trevor HERNANDEZ, Danitza Egan Attending Unavailable Allergies Allergy Classification Reported Allergen(s) Allergy Type Date of Onset Reaction(s) Facility (1 source) Bacitracin / Neomycin / Polymyxin B Drug Allergy Unknown [facility] Other (1 source) Cimetidine Drug Allergy Unknown [facility] Other (20 sources) Bacitracin; Translations: [bacitracin] Drug Allergy 2 [facility] (20 sources) Cimetidine; Translations: [cimetidine] Drug Allergy 2 [facility] (20 sources) Neomycin; Translations: [neomycin] Drug Allergy [address] [facility] (10 sources) contact metal agent; Translations: [contact metal agent] Propensity to adverse reactions 2 Rash [facility] (11 sources) petrolatum,whit e; Translations: [petrolatum,whi te] Propensity to adverse reactions 2 [facility] (20 sources) polymyxin B; Translations: [polymyxin B] Propensity to adverse reactions 2 [facility] (1 source) Bacitracin / Neomycin / Polymyxin B Drug Allergy 5 [facility] (1 source) Cimetidine Drug Allergy 5 [facility] (20 sources) Bacitracin / Polymyxin B Drug Allergy 3 Unknown [facility] Work Phone: (20 sources) Petrolatum Drug Allergy 3 Unknown [facility] Medications Current Medications Medication Drug Class(es) Dates Sig (Normalized) Sig (Original) [id number] 200 actuat albuterol 0.09 mg/actuat metered dose [...] 1000 mg by mouth once daily Evening [place] Oil Active 1000 MG PO every day at noon December 17, 2019 12:00am take 1 capsule by mouth once alma delia ly Evening [place] Oil 1000 MG 1 capsule Orally one [...] bedtime. 300 tablet 3 11/09/2024 Active Horse Mcdonald 300 MG (1 source) take 1 capsule by mouth once daily Horse Mcdonald 300 MG 1 capsule Orally one time [...] 300 mg by mouth once daily Horse Mcdonald Active 300 MG PO every day at [...] Start: 12-14-2019 take 2 tablets by mo [facility] once daily Sitagliptin Phos-Metformin (Janumet) 50-500 [...] MOUTH EVERY DAY Inhalation for 90 Active [place] 2-Yhp-Lbh-Fish Oil (Fish Oil) 1,000 mg (120 mg-180 mg) Capsule (9 sources) Start: 12-17-2019 take 1 capsule by mouth twice daily [place] 9-Tqn-Orq-Fish Oil (Fish Oil) 1,000 mg (120 mg-180 mg) Capsule Active 1 CAP PO Twice daily December 16, 2019 11:00pm Start: 12-17-2019 take 1 capsule by [facility] twice daily [place] 5-Crp-Qfg-Fish Oil (Fish Oil) 1,000 mg (120 mg-180 mg) Capsule Active 1 CAP PO Twice daily December 17, 2019 12:00am [place]-3 Fatty Acids (Fish Oi l) 1000 MG capsule delayed-release (20 sources) take 1 capsule by mouth once daily [place]-3 Fatty Acids (Fish Oil) 1000 MG capsule delayed-release Take 1 capsule by mouth 1 (one) time each day. Active take 1 capsule by mouth once alma delia ly [place]-3 Fatty Acids (Fish Oil) 1000 MG capsule [...] tablet 3 11/14/2023 Active polyethylene glycol 3350 89757 mg powder for oral solution (20 sources) [...] (1 source) take 1 capsule by mo ut once daily Vitamin E 400 UNIT 1 capsule Orally Once a day Active Zinc (10 sources) Start: 12-17-2019 take 50 mg by mouth once daily Zinc Active 50 MG PO every day at noon December 16, 2019 11:00pm Start: 12-17-2019 take 50 mg by mouth once daily Zinc Active 50 MG PO every day at noon December 17, 2019 12:00am take 1 tablet [...] Dates Sig (Normalized) Sig (Original) Glucos Sul 5nnq-Tkc-Lftyz-C-M n (Glucosamine Chondroitin) 550-30-1 mg Capsule (9 sources) Start: 12-17-2019 End: 01-12-2022 take 1 capsule by mouth twice daily Glucos Sul 0xhk-Gcw-Qntvu-C-Mn (Glucosamine Chondroitin) 550-30-1 mg Capsule Discontinued 1 CAP PO Twice daily December 16, 2019 11:00pm January 12, 2022 10:09am Start: 12-17-2019 End: 01-12-2022 take 1 capsule by mouth twice daily Glucos Sul 3zoa-Yrp-Lhxps-C-Mn (Glucosamine Chondroitin) 550-30-1 mg Capsule Discontinued 1 [...] disease (1 source) Atherosclerotic heart disease of [place] coronary artery without angina pectoris; Translations: [[facility] 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] Onset: 11-25-2021 Chronic [...] 10-31-2022 10-31-2022 Chronic Other aftercare (1 source) termite control service representative (current) use of aspirin; Translations: [[employer] CURRENT USE OF ASPIRIN] Onset: 01-25-2022 Episodic Other aftercare (1 source) termite control service representative (current) use of insulin; Translations: [[facility] CURRENT USE OF INSULIN] Onset: 01-25-2022 Episodic Other aftercare (1 source) Other termite control service representative (current) drug therapy; Translations: [OTH [employer] CURRENT DRUG THERAPY] Onset: 01-25-2022 Episodic Other and ill-defined heart disease (20 sources) Diastolic dysfunction; Translations: [Other ill-defined heart diseases] Onset: 10-31-2022 10-31-2022 Chronic Other bone disease and musculoskeletal deformities (1 source) Other specified disorders of bone density and structure, left thigh; Translations: [[facility] D/O BONE DEN STRUCT LT THIGH] Onset: [...] nonspecific abnormal finding of lung field; Translations: [[facility] NONSPECIFIC ABN FIND LNG FIELD] Onset: 11-13-2021 [...] Onset: 08-17-2021 Episodic Other aftercare (1 source) termite control service representative (current) use of oral hypoglycemic drugs; Translations: [[facility] USE ORAL HYPOGLYCEMIC DX] Onset: 05-28-2021 Episodic [...] Test Name Value Interpretation Reference Range Facility [facility] US CAROTID ARTERY DUPLE X BILATERALon 10-19-2024 [facility] US CAROTID ARTERY DUPLEX BILATERAL EXAM: [facility] US CAROTID ARTERY DUPLEX BILATERAL [...] present in the vertebral artery. There is rjro-zu-dafzpfwm plaque visualized in the left common carotid [...] II, MD, PHD at 22-Oct-2024 10:54:18 AM [facility] SRU criteria: <180 No plaque <2.0 Normal <180 <50% plaque <2.0 <50% 180-230 >50% plaque 2.0 - 4.0 50-69% >230 >50% plaque >4.0 >70% PSV 125-180 cm/sec and ICA/CCA PSV Ratio >= 2.0 is also consistent with 50-69% stenosis. Normal Not Available Laboratory - Hematology and Cell countson 10-11-2024 HbA1c (Bld) [Mass fraction] 4.8 % [facility] No Panel Informationon 10-11 Interpretation and review of laboratory results Normal [facility] CBC (H/H, RBC, INDICES, WBC, PLT)on 05-12-2024 Erythrocyte distribution width (RBC) [Ratio] 14.0 % Normal 11.0-15.0 [facility] Comment on above: Performed By: #### 7 600 #### [facility] [place] [address] [employer] Attendant: Дмитрий Mendoza MD #### [id number], 2932 #### [facility] [address] [employer] Attendant: Joyce Vaca Hematocrit (Bld) [Volume fraction] 40.1 % Normal 35.0-45.0 [facility] Comment on above: Performed By: #### 7 600 #### [facility] [place] [address] [employer] Attendant: Дмитрий Mendoza MD #### 69414, 175 #### [facility] [address] [employer] Attendant: Joyce Vaca Hemoglobin (Bld) [Mass/Vol] 13.5 g/dL Normal 11.7-15.5 [facility] Comment on above: Performed By: #### 7 600 #### [facility] [place] [address] [employer]ist [employer] Attendant: Дмитрий Mendoza MD #### 57800, 1753 #### [facility] [employer]ist [employer] Attendant: Joyce R Flati MCH (RBC) [Entitic mass] 30.6 pg Normal 27.0-33.0 [facility] Comment on above: Performed By: #### 7 600 #### [facility] [address], [address] [place] [address] [employer]ist [employer] Attendant: Дмитрий Mendoza MD #### 46642, 1759 #### [facility] [place] [address] [employer] Attendant: Joyce Vaca MCHC (RBC) [Mass/Vol] 33.7 g/dL [...] By: #### 7 600 #### [facility] [address], [address] [place] [address] [employer]ist [employer] Attendant: Дмитрий Mendoza MD #### 98165, 175 #### [facility] [place] [address] [employer] Attendant: Joyce Vaca MCV (RBC) [Entitic vol] 90.9 fL Normal 80.0-100.0 [facility] Comment on above: Performed By: #### 7 600 #### [facility] [place] [address] [employer]ist [employer] Attendant: Дмитрий Mendoza MD #### 73622, 175 #### [facility] [address] [place], [place] [id number] [employer]ist [employer] Attendant: Joyce Vaca Platelet mean volume (Bld) [Entitic vol] 8.5 fL Normal 7.5-12.5 [facility] Comment on above: Performed By: #### 7 600 #### [facility] [address], [address] [place] [address] [employer]ist [employer] Attendant: Дмитрий Mendoza MD #### 83072, 1757 #### [facility] [address] [place] [phone] [employer]ist [employer] Attendant: Joyce Vaca Platelets (Bld) [#/Vol] 309 10*3/uL Normal 140-400 [facility] Comment on above: Performed By: #### 7 600 #### [facility] [address], [address] [place] [address] [employer]ist [employer] Attendant: Дмитрий Mendoza MD #### 22205, 1759 #### [facility] [address] [place] [phone] [employer]ist [employer] Attendant: Joyce Vaca RBC (Bld) [#/Vol] 4.41 10*6/uL Normal 3.80-5.10 [facility] Comment on above: Performed By: #### 7 600 #### [facility] [address], [address] [place] [address] [employer]ist [employer] Attendant: Дмитрий Mendoza MD #### 28169, 1759 #### [facility] [address] [employer] Attendant: Joyce Vaca WBC (Bld) [#/Vol] 7.2 10*3/uL Normal 3.8-10.8 [facility] Comment on above: Performed By: #### 7 600 #### [facility] [address], [address] [place] [address] [employer]ist [employer] Attendant: Дмитрий Mendoza MD #### 81269, 1759 #### [facility] [address] [place], [place] [id number] [employer]ist [employer] Attendant: Joyce Vaca [facility] 05-12-2024 Albumin [Mass/Vol] 3.7 g/dL Normal 3.6-5.1 [facility] Comment on above: Performed By: #### 7 600 #### [facility] [address], [address] [place] [address] [employer]ist [employer] Attendant: Дмитрий Mendoza MD #### 07474, 1759 #### [facility] [address] [place] [address] Tourist [employer] Attendant: Joyce Vaca Albumin/Globulin [Mass ratio] 1.3 {ratio} Normal 1.0-2.5 [facility] Comment on above: Performed By: #### 7 600 #### [facility] [address], [address] [place] [address] [employer]ist [employer] Attendant: Дмитрий Mendoza MD #### 15803, 1759 #### [facility] [address] [place] [address] Tourist [employer] Attendant: Joyce Vaca ALP [Catalytic activity/Vol] 35 U/L Low 37-153 [facility] Comment on above: Performed By: #### 7 600 #### [facility] [address], [address] [place] [address] [employer]ist [employer] Attendant: Дмитрий Mendoza MD #### 09345, 1759 #### [facility] [address] [employer]ist [employer] Attendant: Joyce Vaca ALT [Catalytic activity/Vol] 16 U/L Normal 6-29 [facility] Comment on above: Performed By: #### 7 600 #### [facility] [address], [address] [place] [address] [employer]ist [employer] Attendant: Дмитрий Mendoza MD #### 73482, 1759 #### [facility]-[address] Tourist [employer] Attendant: Joyce Vaca AST [Catalytic activity/Vol] 26 U/L Normal 10-35 [facility] Comment on above: Performed By: #### 7 600 #### [facility] [address], [address] [place] [address] [employer]ist [employer] Attendant: Дмитрий Mendoza MD #### 31862, 8642 #### [facility] [address] [place], [place] [id number] Tourist [employer] Attendant: Joyce Vaca Bilirubin [Mass/Vol] 0.5 mg/dL Normal 0.2-1.2 [facility] Comment on above: Performed By: #### 7 600 #### [facility] [address], [address] [place] [address] [employer]ist [employer] Attendant: Дмитрий Mendoza MD #### 26596, 1759 #### [facility] [address] [employer] Attendant: Joyce Vaca BUN/CREATININE RATIO SEE NOTE: Normal 6-22 [facility] Comment on above: Result Comment: Not Reported: BUN and Creatinine are within reference range. Performed By: #### 7 600 #### [facility] [address], [address] [place] [address] [employer]ist [employer] Attendant: Дмитрий Mendoza MD #### 27787, 1759 #### [facility] [address] [employer] Attendant: Joyce Hurley Flati Calcium [Mass/Vol] 9.6 mg/dL Normal 8.6-10.4 [facility] Comment on above: Performed By: #### 7 600 #### [facility] [address], [address] [place] [address] [employer]ist [employer] Attendant: Дмитрий Mendoza MD #### 46733, 1759 #### [facility] [address] [employer]ist [employer] Attendant: Joyce Hurley Flati Chloride [Moles/Vol] 97 mmol/L Low 98-110 [facility] Comment on above: Performed By: #### 7 600 #### [facility] [address], [address] [place] [address] [employer]ist [employer] Attendant: Дмитрий Mendoza MD #### 74663, 1759 #### [facility] [address] [place] [address] Tourist [employer] Attendant: Joyce Hurley Flati CO2 [Moles/Vol] 30 mmol/L Normal 20-32 [facility] Comment on above: Performed By: #### 7 600 #### [facility] [address], [address] [place] [address] [employer]ist [employer] Attendant: Дмитрий Mendoza MD #### 17969, 1759 #### [facility] [address] [place] [phone] Tourist [employer] Attendant: Joyce Vaca Creatinine [Mass/Vol] 0.69 mg/dL Normal 0.60-1.[address] [facility] Comment on above: Performed By: #### 7 600 #### [facility] [address], [address] [place] [address] [employer]ist [employer] Attendant: Дмитрий Mendoza MD #### 64428, 1759 #### [facility] [address] [place] [phone] [employer]ist [employer] Attendant: Joyce Vaca GFR/1.73 sq M.predicted among non-blacks MDRD (S/P/Bld) [Vol rate/Area] 90 mL/min/{1.73_m2} Normal > OR = 60 [facility] Comment on above: Performed By: #### 7 600 #### [facility] [address], [address] [place] [address] [employer]ist [employer] Attendant: Дмитрий Mendoza MD #### 50278, 1759 #### [facility] [address] [place] [address] Tourist [employer] Attendant: Joyce Vaca Globulin (S) [Mass/Vol] 2.8 g/dL Normal 1.9-3.7 [facility] Comment on above: Performed By: #### 7 600 #### [facility] [address], [address] [place] [address] [employer]ist [employer] Attendant: Дмитрий Mendoza MD #### 90625, 1759 #### [facility] [address] [place] [phone] [employer]ist [employer] Attendant: Joyce Vaca Glucose [Mass/Vol] 81 mg/dL Normal 65-139 [facility] Comment on above: Result Comment: Non-fasting reference interval Performed By: #### 7 600 #### [facility] [address], [address] [place] [address] [employer]ist [employer] Attendant: Дмитрий Mendoza MD #### 58867, 1759 #### [facility] [address] [place], [place] [id number] [employer]ist [employer] Attendant: Joyce Vaca Potassium [Moles/Vol] 4.1 mmol/L Normal 3.5-5.[address] [facility] Comment on above: Performed By: #### 7 600 #### [facility] [address], [address] [place] [address] [employer]ist [employer] Attendant: Дмитрий Mendoza MD #### 71695, 1759 #### [facility] [address] [place] [address] Tourist [employer] Attendant: Joyce Vaca Protein [Mass/Vol] 6.5 g/dL Normal 6.1-8.1 [facility] Comment on above: Performed By: #### 7 600 #### [facility] [address], [address] [place] [address] [employer]ist [employer] Attendant: Дмитрий Mendoza MD #### 87205, 1759 #### [facility] [address] [place] [address] Tourist [employer] Attendant: Joyce Vaca Sodium [Moles/Vol] 135 mmol/L Normal 135-146 [facility] Comment on above: Performed By: #### 7 600 #### [facility] [address], [address] [place] [address] [employer]ist [employer] Attendant: Дмитрий Mendoza MD #### 79741, 1759 #### [facility] [address] [place], [place] [address] [employer]ist [employer] Attendant: Joyce Vaca Urea nitrogen [Mass/Vol] 21 mg/dL Normal 7-25 [facility] Comment on above: Performed By: #### 7 600 #### [facility] [address], [address] [place] [address] [employer]ist [employer] Attendant: Дмитрий Mendoza MD #### 58865, 175 #### [facility] [address] [place] [address] Tourist [employer] Attendant: Joyce Vaca LIPID PANEL, [place] [address] Cholesterol [Mass/Vol] 156 mg/dL Normal <200 [facility] Comment on above: Order Comment: FASTI NG:NO COLLECTION REQUIREMENTS NOT MET. PATIENT ADVISED TO RETURN. FASTING: NO Performed By: #### 7 600 #### [facility] [address], [address] [place] [address] [employer]ist [employer] Attendant: Дмитрий Mendoza MD #### 23516, 1759 #### [facility] [address] [place], [place] [address] Tourist [employer] Attendant: Joyce Vaca Cholesterol in HDL [Mass/Vol] 42 mg/dL Low > OR = 50 [facility] Comment on above: Order Comment: FASTI NG:NO COLLECTION REQUIREMENTS NOT MET. PATIENT ADVISED TO RETURN. FASTING: NO Performed By: #### 7 600 #### [facility] [address], [address] [place] [address] [employer]ist [employer] Attendant: Дмитрий Mendoza MD #### 74431, 1759 #### [facility] [place] [phone] [employer]ist [employer] Attendant: Joyce Vaca Cholesterol in LDL [Mass/Vol] 85 [...] factors. LDL-C is now calculated using the Yarely calculation, which is a validated novel method providing better accuracy than the Friedewald equation in the estimation of LDL-C. Devyn SUE et al. ZORAIDA. 2013;310(19): 4829-3069 (http://education.Shenzhen MR Photoelectricity.SuperSonic Imagine/faq/WED217) Performed By: #### 7 600 #### [facility] [address], [address] [place] [address] [employer]ist [employer] Attendant: Дмитрий Mendoza MD #### 02686, 1759 #### [facility] [address] [place] [phone] [employer]ist [employer] Attendant: Joyce Vaca Cholesterol.total/Rocío sterol in HDL [Mass ratio] 3.7 {ratio} Normal <5.0 [facility] Comment on above: Order Comment: FASTI NG:NO COLLECTION REQUIREMENTS NOT MET. PATIENT ADVISED TO RETURN. FASTING: NO Performed By: #### 7 600 #### [facility] [place] [address] [facility], [address] [place] [address] [employer]ist [employer] Attendant: Дмитрий Mendoza MD #### 24444, 1759 #### [facility] [address] [place] [phone] Tourist [employer] Attendant: Joyce Vaca NON HDL CHOLESTEROL 114 mg/dL [...] option. Performed By: #### 7 600 #### [facility] [address], [address] [place] [address] [employer]ist [employer] Attendant: Дмитрий Mendoza MD #### 30061, 1759 #### [facility] [address] [place] [phone] Tourist [employer] Attendant: Joyce Vaca Triglyceride [Mass/Vol] 197 mg/dL High <150 [facility] Comment on above: Order Comment: FASTI NG:NO COLLECTION REQUIREMENTS NOT MET. PATIENT ADVISED TO RETURN. FASTING: NO Performed By: #### 7 600 #### [facility] [address], [address] [place] [address] [employer]ist [employer] Attendant: Дмитрий Mendoza MD #### 03427, 1759 #### [facility] [address] [place] [phone] [employer]ist [employer] Attendant: Joyce Vaca MR lumbar spine wo david MR lumbar spine wo con [facility] [place] [address] [place] [address] XRay Report Signed Patient: Nuvia Martin MR#: [id number] : 1945 Acct:[id number] Age/Sex: 78 / F ADM Date: 09/16/23 Loc: MR Room: Type: [facility] Attending Dr: Wily Prado MD Copies to: Wily Prado MD Ordering Provider: Wily Prado MD Date of Service: 09/16/23 MR/MR lumbar spine wo con: M51.36, M43.16 M54.42, M54.41 ([id number]) XR/XR pre/post mri xray: M54.42, M54.41, M51.36, [...] STENOSIS OUTLINED ABOVE. Impression dictated by: Latonya Rgigs M.D.09/16/2023 10:57 AM Dictation Location: [place] [address] Transcribed By: [facility] 09/16/23 1057 Dictated By: Laotnya Riggs MD 09/16/23 1046 Signed By: 09/16/23 1057 Normal [facility] Alanine aminotransferase [En zymatic activity/volume] in Serum or PlasmaOrdered By: Taylor Tijerina on 01-31-2023 ALT [Catalytic activity/Vol] 16 U/L 7-52 [facility] Albumin [Mass/volume] in Ser um or Plasma by Bromocresol green (BCG) dye binding methoOrdered By: Taylor Tijerina on 01-31-2023 Albumin BCG dye [Mass/Vol] 3.7 g/dL 3.5-5.7 [facility] Alkaline phosphatase [Enzyma tic activity/volume] in Serum or PlasmaOrdered By: Taylor Tijerina on 01-31-2023 ALP [Catalytic activity/Vol] 72 U/L 34-104 [facility] Aspartate aminotransferase [ Enzymatic activity/volume] in Serum or PlasmaOrdered By: Taylor Tijerina on 01-31-2023 AST [Catalytic activity/Vol] 24 U/L 13-39 [facility] Basophils Auto (Bld) [#/Vol] Ordered By: Taylor Tijerina on 01-31-2023 Basophils (Bld) [#/Vol] 0.1 10*3/uL 0.0-0.2 [facility] Basophils/100 WBC Auto (Bld) Ordered By: Taylor Tijerina on 01-31-2023 Basophils/100 WBC (Bld) 0.9 % . F [facility] Bilirubin.total [Mass/volume ] in Serum or PlasmaOrdered By: Taylor Tijerina on 01-31-2023 Bilirubin [Mass/Vol] 0.4 mg/dL 0.3-1.0 [facility] Calcium [Mass/volume] in Ser um or PlasmaOrdered By: Taylor Tijerina on 01-31-2023 Calcium [Mass/Vol] 9.1 mg/dL 8.6-10.3 [facility] Carbon dioxide, total [Moles /volume] in Serum or PlasmaOrdered By: Taylor Tijerina on 01-31-2023 CO2 [Moles/Vol] 30.6 mmol/L 21.0-31.0 [facility] Chloride [Moles/volume] in S ramiro or PlasmaOrdered By: Taylor Tijerina on 01-31-2023 Chloride [Moles/Vol] 102 mmol/L 98-107 [facility] Creatinine [Mass/volume] in Serum or PlasmaOrdered By: Taylor Tijerina on 01-31-2023 Creatinine [Mass/Vol] 0.90 mg/dL 0.60-1.20 [facility] Eosinophils Auto (Bld) [#/Vo l]Ordered By: Taylor Tijerina on 01-31-2023 Eosinophils (Bld) [#/Vol] 0.1 10*3/uL 0.0-0.45 [facility] Eosinophils/100 WBC Auto (Bl d)Ordered By: Taylor Tijerina on 01-31-2023 Eosinophils/100 WBC (Bld) 2.0 % . [facility] Erythrocyte distribution wid th Auto (RBC) [Ratio]Ordered By: Taylor Tijerina on 01-31-2023 Erythrocyte distribution width (RBC) [Ratio] 13.8 % 11.9-15.3 [facility] Ferritin [Mass/volume] in Se rum or PlasmaOrdered By: Taylor Tijerina on 01-31-2023 Ferritin [Mass/Vol] 58.3 ng/mL 11.0-306.[address] [facility] Globulin Calc (S) [Mass/Vol] Ordered By: Taylor Tijerina on 01-31-2023 Globulin (S) [Mass/Vol] 2.6 g/dL F [facility] Glucose [Mass/volume] in Ser um or PlasmaOrdered By: Taylor Tijerina on 01-31-2023 Glucose [Mass/Vol] 118 mg/dL 70-100 [facility] Comment on above: ADA recommended refe rence rangeRandom Glucose Reference Range is dependent on time and content of last meal. Glucose of more than 200 mg/dL in a nonstressed, ambulatory subject supports the diagnosis of Diabetes Mellitus. Hematocrit Auto (Bld) [Volum e fraction]Ordered By: Taylor Tijerina on 01-31-2023 Hematocrit (Bld) [Volume fraction] 40.4 % 34.0-46.4 [facility] Hemoglobin [Mass/volume] in BloodOrdered By: Taylor Tijerina 01-31-2023 Hemoglobin (Bld) [Mass/Vol] 13.9 g/dL 11.8-15.4 [facility] Iron [Mass/volume] in Serum or PlasmaOrdered By: Taylor Tijerina 01-31-2023 Iron [Mass/Vol] 91 ug/dL 50-212 [facility] Iron binding capacity [Mass/ volume] in Serum or PlasmaOrdered By: Taylor Tijerina on 01-31-2023 Iron binding capacity [Mass/Vol] 385 ug/dL 255-450 [facility] Iron saturation [Mass Fracti on] in Serum or PlasmaOrdered By: Taylor Tijerina on 01-31-2023 Iron saturation [Mass fraction] 23.6 % 20-50 [facility] Leukocytes [#/volume] correc shara for nucleated erythrocytes in Blood by Automated counOrdered By: Taylor Tijerina on 01-31-2023 WBC corrected for nucl RBC Auto (Bld) [#/Vol] 6.9 10*3/uL 3.8-11.6 [facility] Lymphocytes Auto (Bld) [#/Vo l]Ordered By: Taylor Tijerina on 01-31-2023 Lymphocytes (Bld) [#/Vol] 1.8 10*3/uL 1.00-4.8 [facility] Lymphocytes/100 WBC Auto (Bl d)Ordered By: Taylor Tijerina on 01-31-2023 Lymphocytes/100 WBC (Bld) 26.2 % . [facility] MCH Auto (RBC) [Entitic mass ]Ordered By: Taylor Tijerina on 01-31-2023 MCH (RBC) [Entitic mass] 32.5 pg 24.7-34.3 [facility] MCHC Auto (RBC) [Mass/Vol]Or dered By: Taylor Tijerina on 01-31-2023 MCHC (RBC) [Mass/Vol] 34.4 g/dL 32.0-35.0 [facility]ir [facility] MCV Auto (RBC) [Entitic vol] Ordered By: Taylor Tijerina on 01-31-2023 MCV (RBC) [Entitic vol] 94.5 fL 80-100 [facility] Monocytes Auto (Bld) [#/Vol] Ordered By: Taylor Tijerina on 01-31-2023 Monocytes (Bld) [#/Vol] 0.6 10*3/uL 0.0-0.8 [facility] Monocytes/100 WBC Auto (Bld) Ordered By: Taylor Tijerina on 01-31-2023 Monocytes/100 WBC (Bld) 9.2 % . [facility] Neutrophils Auto (Bld) [#/Vo l]Ordered By: Taylor Tijerina on 01-31-2023 Neutrophils (Bld) [#/Vol] 4.2 10*3/uL 1.8-7.7 [facility] Neutrophils/100 WBC Auto (Bl d)Ordered By: Taylor Tijerina on 01-31-2023 Neutrophils/100 WBC (Bld) 61.7 % . [facility] No Panel InformationOrdered By: Taylor Tijerina on 01-31-2023 Estimated GFR (CKD-EPI) > 60.0 mL/Min [facility] Creatinine Clearance (Chem 49.88 [facility] Nucleated erythrocytes [Pres ence] in Blood by Automated countOrdered By: Taylor Tijerina on 01-31-2023 Nucleated RBC Auto Ql (Bld) 0.1 /100{WBC} 0-0.5 [facility] Platelet mean volume Auto (B ld) [Entitic vol]Ordered By: Taylor Tijerina on 01-31-2023 Platelet mean volume (Bld) [Entitic vol] 7.4 fL 6.3-10.7 [facility] Platelets Auto (Bld) [#/Vol] Ordered By: Taylor Tijerina on 01-31-2023 Platelets (Bld) [#/Vol] 349 10*3/uL 150-450 [facility] Potassium [Moles/volume] in Serum or PlasmaOrdered By: Taylor Tijerina on 01-31-2023 Potassium [Moles/Vol] 4.2 mmol/L 3.5-5.1 [facility] Comment on above: Hemolysis is present at a level that could interfere with the result. Protein [Mass/volume] in Ser um or PlasmaOrdered By: Taylor Tijerina on 01-31-2023 Protein [Mass/Vol] 6.3 g/dL 6.4-8.9 [facility] RBC Auto (Bld) [#/Vol]Ordere d By: Taylor Tijerina on 01-31-2023 RBC (Bld) [#/Vol] 4.27 10*6/uL 3.60-5.[address] [facility] Serum or plasma albumin/glob ulin mass ratioOrdered By: Taylor Tijerina on 01-31-2023 Albumin/Globulin [Mass ratio] 1.4 {ratio} [facility] Serum or plasma anion gap de terminationOrdered By: Taylor Tijerina on 01-31-2023 Anion gap [Moles/Vol] 7.6 mmol/L 6.0-15.0 [facility] Sodium [Moles/volume] in Ser um or PlasmaOrdered By: Taylor Tijerina on 01-31-2023 Sodium [Moles/Vol] 136 mmol/L 136-145 [facility] Transferrin [Mass/volume] in Serum or PlasmaOrdered By: Taylor Tijerina on 01-31-2023 Transferrin [Mass/Vol] 275 mg/dL 203-362 [facility] Urea nitrogen [Mass/volume] in Serum or PlasmaOrdered By: Taylor Tijerina on 01-31-2023 Urea nitrogen [Mass/Vol] 24 mg/dL 7-25 [facility] WBC Auto (Bld) [#/Vol]Ordere d By: Taylor Tijerina on 01-31-2023 WBC (Bld) [#/Vol] 6.9 10*3/uL 3.8-11.6 [facility] Alanine aminotransferase [En zymatic activity/volume] in Serum or PlasmaOrdered By: Taylor Tijerina on 11-01-2022 ALT [Catalytic activity/Vol] 18 U/L 7-52 [facility] Albumin [Mass/volume] in Ser um or Plasma by Bromocresol green (BCG) dye binding methoOrdered By: Taylor Tijerina on 11-01-2022 Albumin BCG dye [Mass/Vol] 3.8 g/dL 3.5-5.7 [facility] Alkaline phosphatase [Enzyma tic activity/volume] in Serum or PlasmaOrdered By: Taylor Tijerina on 11-01-2022 ALP [Catalytic activity/Vol] 38 U/L 34-104 [facility] Aspartate aminotransferase [ Enzymatic activity/volume] in Serum or PlasmaOrdered By: Taylor Tijerina on 11-01-2022 AST [Catalytic activity/Vol] 22 U/L 13-39 [facility] Basophils Auto (Bld) [#/Vol] Ordered By: Taylor Tijerina on 11-01-2022 Basophils (Bld) [#/Vol] 0.1 10*3/uL 0.0-0.2 [facility] Basophils/100 WBC Auto (Bld) Ordered By: Taylor Tijerina on 11-01-2022 Basophils/100 WBC (Bld) 1.3 % . [facility] Bilirubin.total [Mass/volume ] in Serum or PlasmaOrdered By: Taylor Tijerina on 11-01-2022 Bilirubin [Mass/Vol] 0.4 mg/dL 0.3-1.0 [facility] Calcium [Mass/volume] in Ser um or PlasmaOrdered By: Taylor Tijerina on 11-01-2022 Calcium [Mass/Vol] 9.2 mg/dL 8.6-10.3 [facility] Carbon dioxide, total [Moles /volume] in Serum or PlasmaOrdered By: Taylor Tijerina on 11-01-2022 CO2 [Moles/Vol] 28.9 mmol/L 21.0-31.0 [facility] Chloride [Moles/volume] in S ramiro or PlasmaOrdered By: Taylor Tijerina on 11-01-2022 Chloride [Moles/Vol] 100 mmol/L 98-107 [facility] Creatinine [Mass/volume] in Serum or PlasmaOrdered By: Taylor Tijerina on 11-01-2022 Creatinine [Mass/Vol] 0.76 mg/dL 0.60-1.20 [facility] Eosinophils Auto (Bld) [#/Vo l]Ordered By: Taylor Tijerina on 11-01-2022 Eosinophils (Bld) [#/Vol] 0.1 10*3/uL 0.0-0.45 [facility] Eosinophils/100 WBC Auto (Bl d)Ordered By: Taylor Tijerina on 11-01-2022 Eosinophils/100 WBC (Bld) 1.7 % . [facility] Erythrocyte distribution wid th Auto (RBC) [Ratio]Ordered By: Tyalor Tijerina on 11-01-2022 Erythrocyte distribution width (RBC) [Ratio] 13.6 % 11.9-15.3 [facility] Ferritin [Mass/volume] in Se rum or PlasmaOrdered By: Taylor Tjierina on 11-01-2022 Ferritin [Mass/Vol] 90.9 ng/mL 11.0-306.[address] [facility] Globulin Calc (S) [Mass/Vol] Ordered By: Taylor Tijerina on 11-01-2022 Globulin (S) [Mass/Vol] 2.2 g/dL F [facility] Glucose [Mass/volume] in Ser um or PlasmaOrdered By: Taylor Tijerina on 11-01-2022 Glucose [Mass/Vol] 118 mg/dL 70-100 [facility] Comment on above: ADA recommended refe rence rangeRandom Glucose Reference Range is dependent on time and content of last meal. Glucose of more than 200 mg/dL in a nonstressed, ambulatory subject supports the diagnosis of Diabetes Mellitus. Hematocrit Auto (Bld) [Volum e fraction]Ordered By: Taylor Tijerina on 11-01-2022 Hematocrit (Bld) [Volume fraction] 37.4 % 34.0-46.4 [facility] Hemoglobin [Mass/volume] in BloodOrdered By: Taylor Tijerina on 11-01-2022 Hemoglobin (Bld) [Mass/Vol] 13.0 g/dL 11.8-15.4 [facility] Iron [Mass/volume] in Serum or PlasmaOrdered By: Taylor Tijerina on 11-01-2022 Iron [Mass/Vol] 94 ug/dL 50-212 [facility] Iron binding capacity [Mass/ volume] in Serum or PlasmaOrdered By: Taylor Tijerina on 11-01-2022 Iron binding capacity [Mass/Vol] 372 ug/dL 255-450 [facility] Iron saturation [Mass Fracti on] in Serum or PlasmaOrdered By: Taylor Tijerina on 11-01-2022 Iron saturation [Mass fraction] 25.3 % 20-50 [facility] Leukocytes [#/volume] correc shara for nucleated erythrocytes in Blood by Automated counOrdered By: Taylor Tijerina on 11-01-2022 WBC corrected for nucl RBC Auto (Bld) [#/Vol] 6.3 10*3/uL 3.8-11.6 [facility] Lymphocytes Auto (Bld) [#/Vo l]Ordered By: Taylor Tijerina on 11-01-2022 Lymphocytes (Bld) [#/Vol] 1.7 10*3/uL 1.00-4.8 [facility] Lymphocytes/100 WBC Auto (Bl d)Ordered By: Taylor Tijerina on 11-01-2022 Lymphocytes/100 WBC (Bld) 26.9 % . [facility] MCH Auto (RBC) [Entitic mass ]Ordered By: Taylor Tijerina on 11-01-2022 MCH (RBC) [Entitic mass] 33.1 pg 24.7-34.3 [facility] MCHC Auto (RBC) [Mass/Vol]Or dered By: Taylor Tijerina on 11-01-2022 MCHC (RBC) [Mass/Vol] 34.7 g/dL 32.0-35.0 [facility] MCV Auto (RBC) [Entitic vol] Ordered By: Taylor Tijerina on 11-01-2022 MCV (RBC) [Entitic vol] 95.6 fL 80-100 [facility] Monocytes Auto (Bld) [#/Vol] Ordered By: Taylor Tijerina on 11-01-2022 Monocytes (Bld) [#/Vol] 0.6 10*3/uL 0.0-0.8 [facility] Monocytes/100 WBC Auto (Bld) Ordered By: Taylor Tijerina on 11-01-2022 Monocytes/100 WBC (Bld) 9.5 % . [facility] Neutrophils Auto (Bld) [#/Vo l]Ordered By: Taylor Tijerina on 11-01-2022 Neutrophils (Bld) [#/Vol] 3.8 10*3/uL 1.8-7.7 [facility] Neutrophils/100 WBC Auto (Bl d)Ordered By: Taylor Tijerina on 11-01-2022 Neutrophils/100 WBC (Bld) 60.6 % . [facility] No Panel InformationOrdered By: Taylor Tijerina on 11-01-2022 Estimated GFR (CKD-EPI) > 60.0 mL/Min [facility] Creatinine Clearance (Chem 57.26 [facility] Nucleated erythrocytes [Pres ence] in Blood by Automated countOrdered By: Taylor Tijerina on 11-01-2022 Nucleated RBC Auto Ql (Bld) 0.2 /100{WBC} 0-0.5 [facility] Platelet mean volume Auto (B ld) [Entitic vol]Ordered By: Taylor Tijerina on 11-01-2022 Platelet mean volume (Bld) [Entitic vol] 7.1 fL 6.3-10.7 [facility] Platelets Auto (Bld) [#/Vol] Ordered By: Taylor Tijerina on 11-01-2022 Platelets (Bld) [#/Vol] 266 10*3/uL 150-450 [facility] Potassium [Moles/volume] in Serum or PlasmaOrdered By: Taylor Tijerina on 11-01-2022 Potassium [Moles/Vol] 4.3 mmol/L 3.5-5.1 [facility] Protein [Mass/volume] in Ser um or PlasmaOrdered By: Taylor Tijerina on 11-01-2022 Protein [Mass/Vol] 6.0 g/dL 6.4-8.9 [facility] RBC Auto (Bld) [#/Vol]Ordere d By: Taylor Tijerina on 11-01-2022 RBC (Bld) [#/Vol] 3.92 10*6/uL 3.60-5.[address] [facility] Serum or plasma albumin/glob ulin mass ratioOrdered By: Taylor Tijerina on 11-01-2022 Albumin/Globulin [Mass ratio] 1.7 {ratio} [facility] Serum or plasma anion gap de terminationOrdered By: Taylor Tijerina on 11-01-2022 Anion gap [Moles/Vol] 11.4 mmol/L 6.0-15.0 [facility] Sodium [Moles/volume] in Ser um or PlasmaOrdered By: Taylor Tijerina on 11-01-2022 Sodium [Moles/Vol] 136 mmol/L 136-145 [facility] Transferrin [Mass/volume] in Serum or PlasmaOrdered By: Taylor Tijerina on 11-01-2022 Transferrin [Mass/Vol] 266 mg/dL 203-362 [facility] Urea nitrogen [Mass/volume] in Serum or PlasmaOrdered By: Taylor Tijerina on 11-01-2022 Urea nitrogen [Mass/Vol] 22 mg/dL 7-25 [facility] WBC Auto (Bld) [#/Vol]Ordere d By: Taylor Tijerina on 11-01-2022 WBC (Bld) [#/Vol] 6.3 10*3/uL 3.8-11.6 [facility] Basophils Auto (Bld) [#/Vol] Ordered By: Emily Degroot on 07-22-2022 Basophils (Bld) [#/Vol] 0.0 10*3/uL 0.0-0.2 [facility] Basophils/100 WBC Auto (Bld) Ordered By: Emily Degroot on 07-22-2022 Basophils/100 WBC (Bld) 0.5 % . [facility] Eosinophils Auto (Bld) [#/Vo l]Ordered By: Emily Degroot on 07-22-2022 Eosinophils (Bld) [#/Vol] 0.1 10*3/uL 0.0-0.45 [facility] Eosinophils/100 WBC Auto (Bl d)Ordered By: Emily Degroot on 07-22-2022 Eosinophils/100 WBC (Bld) 1.8 % . [facility] Erythrocyte distribution wid th Auto (RBC) [Ratio]Ordered By: Emily Degroot on 07-22-2022 Erythrocyte distribution width (RBC) [Ratio] 15.1 % 11.9-15.3 [facility] Ferritin [Mass/volume] in Se rum or PlasmaOrdered By: Emily Degroot on 07-22-2022 Ferritin [Mass/Vol] 27.4 ng/mL 11.0-306.[address] [facility] Hematocrit Auto (Bld) [Volum e fraction]Ordered By: Emily Degroot on 07-22-2022 Hematocrit (Bld) [Volume fraction] 39.5 % 34.0-46.4 [facility] Hemoglobin [Mass/volume] in BloodOrdered By: Emily Degroot on 07-22-2022 Hemoglobin (Bld) [Mass/Vol] 13.5 g/dL 11.8-15.4 [facility] Iron [Mass/volume] in Serum or PlasmaOrdered By: Emily Degroot on 07-22-2022 Iron [Mass/Vol] 75 ug/dL 50-212 [facility] Iron binding capacity [Mass/ volume] in Serum or PlasmaOrdered By: Emily Degroot on 07-22-2022 Iron binding capacity [Mass/Vol] 486 ug/dL 255-450 [facility] Iron saturation [Mass Fracti on] in Serum or PlasmaOrdered By: Emily Degroot on 03-09-2023 Iron saturation [Mass fraction] 15.4 % 20-50 [facility] Leukocytes [#/volume] correc shara for nucleated erythrocytes in Blood by Automated counOrdered By: Emily Degroot on 07-22-2022 WBC corrected for nucl RBC Auto (Bld) [#/Vol] 6.2 10*3/uL 3.8-11.6 [facility] Lymphocytes Auto (Bld) [#/Vo l]Ordered By: Emily Degroot on 07-22-2022 Lymphocytes (Bld) [#/Vol] 1.5 10*3/uL 1.00-4.8 [facility] Lymphocytes/100 WBC Auto (Bl d)Ordered By: Emily Degroot on 07-22-2022 Lymphocytes/100 WBC (Bld) 24.3 % . [facility] MCH Auto (RBC) [Entitic mass ]Ordered By: Emily Degroot on 07-22-2022 MCH (RBC) [Entitic mass] 31.7 pg 24.7-34.3 [facility] MCHC Auto (RBC) [Mass/Vol]Or dered By: Emily Degroot on 07-22-2022 MCHC (RBC) [Mass/Vol] 34.1 g/dL 32.0-35.0 [facility] MCV Auto (RBC) [Entitic vol] Ordered By: Emily Degroot on 07-22-2022 MCV (RBC) [Entitic vol] 92.9 fL 80-100 [facility] Monocytes Auto (Bld) [#/Vol] Ordered By: Emily Degroot on 07-22-2022 Monocytes (Bld) [#/Vol] 0.5 10*3/uL 0.0-0.8 [facility] Monocytes/100 WBC Auto (Bld) Ordered By: Emily Degroot on 07-22-2022 Monocytes/100 WBC (Bld) 7.9 % . [facility] Neutrophils Auto (Bld) [#/Vo l]Ordered By: Emily Degroot on 07-22-2022 Neutrophils (Bld) [#/Vol] 4.1 10*3/uL 1.8-7.7 [facility] Neutrophils/100 WBC Auto (Bl d)Ordered By: Emily Degroot on 07-22-2022 Neutrophils/100 WBC (Bld) 65.5 % . [facility] Nucleated erythrocytes [Pres ence] in Blood by Automated countOrdered By: Emily Degroot on 07-22-2022 Nucleated RBC Auto Ql (Bld) 0.1 /100{WBC} 0-0.5 [facility] Platelet mean volume Auto (B ld) [Entitic vol]Ordered By: Emily Degroot on 07-22-2022 Platelet mean volume (Bld) [Entitic vol] 7.1 fL 6.3-10.7 [facility] Platelets Auto (Bld) [#/Vol] Ordered By: Emily Degroot on 07-22-2022 Platelets (Bld) [#/Vol] 308 10*3/uL 150-450 [facility] RBC Auto (Bld) [#/Vol]Ordere d By: Emily Degroot on 07-22-2022 RBC (Bld) [#/Vol] 4.25 10*6/uL 3.60-5.[address] [facility] Transferrin [Mass/volume] in Serum or PlasmaOrdered By: Emily Degroot on 07-22-2022 Transferrin [Mass/Vol] 347 mg/dL 203-362 [facility] WBC Auto (Bld) [#/Vol]Ordere d By: Emily Degroot on 07-22-2022 WBC (Bld) [#/Vol] 6.2 10*3/uL 3.8-11.6 [facility] Anisocytosis LM Ql (Bld)Orde red By: Marisabel Noel on 04-23-2022 Anisocytosis Ql (Bld) Moderate [facility]ir [facility] Basophils Auto (Bld) [#/Vol] Ordered By: Marisabel Noel on 04-23-2022 Basophils (Bld) [#/Vol] 0.1 10*3/uL 0.0-0.2 [facility] Basophils/100 WBC Auto (Bld) Ordered By: Marisabel Noel on 04-23-2022 Basophils/100 WBC (Bld) 0.8 % . [facility] CT biopsyOrdered By: Marisabel foss on 04-23-2022 Transferrin [Mass/Vol] 309 mg/dL 180-380 [facility] Eosinophils Auto (Bld) [#/Vo l]Ordered By: Marisabel Noel on 04-23-2022 Eosinophils (Bld) [#/Vol] 0.2 10*3/uL 0.0-0.45 [facility] Eosinophils/100 WBC Auto (Bl d)Ordered By: Marisabel Noel on 04-23-2022 Eosinophils/100 WBC (Bld) 3.3 % . [facility] Erythrocyte distribution wid th Auto (RBC) [Ratio]Ordered By: Marisabel Noel on 04-23-2022 Erythrocyte distribution width (RBC) [Ratio] 16.9 % 11.9-15.3 [facility] Ferritin [Mass/volume] in Se rum or PlasmaOrdered By: Marisabel Noel on 04-23-2022 Ferritin [Mass/Vol] 40.0 ng/mL 11-306.[address] [facility] Hematocrit Auto (Bld) [Volum e fraction]Ordered By: Marisabel Noel on 04-23-2022 Hematocrit (Bld) [Volume fraction] 40.2 % 34.0-46.4 [facility] Hemoglobin [Mass/volume] in BloodOrdered By: Marisabel Noel on 04-23-2022 Hemoglobin (Bld) [Mass/Vol] 13.5 g/dL 11.8-15.4 [facility] Hypochromia LM Ql (Bld)Order ed By: Marisabel Noel on 04-23-2022 Hypochromia Ql (Bld) Moderate [facility] Iron [Mass/volume] in Serum or PlasmaOrdered By: Marisabel Noel on 04-23-2022 Iron [Mass/Vol] 73 ug/dL 40-150 [facility] Iron binding capacity [Mass/ volume] in Serum or PlasmaOrdered By: Marisabel Noel on 04-23-2022 Iron binding capacity [Mass/Vol] 433 ug/dL 255-450 [facility] Iron saturation [Mass Fracti on] in Serum or PlasmaOrdered By: Marisabel Noel on 04-23-2022 Iron saturation [Mass fraction] 16.0 % 20-50 [facility] Leukocytes [#/volume] correc shara for nucleated erythrocytes in Blood by Automated counOrdered By: Marisabel Noel on 04-23-2022 WBC corrected for nucl RBC Auto (Bld) [#/Vol] 7.0 10*3/uL 3.8-11.6 [facility] Lymphocytes Auto (Bld) [#/Vo l]Ordered By: Marisabel Noel on 04-23-2022 Lymphocytes (Bld) [#/Vol] 1.4 10*3/uL 1.00-4.8 [facility] Lymphocytes/100 WBC Auto (Bl d)Ordered By: Marisabel Noel on 04-23-2022 Lymphocytes/100 WBC (Bld) 20.8 % . [facility] MCH Auto (RBC) [Entitic mass ]Ordered By: Marisabel Noel on 04-23-2022 MCH (RBC) [Entitic mass] 29.8 pg 24.7-34.3 [facility] MCHC Auto (RBC) [Mass/Vol]Or dered By: Marisabel Noel on 04-23-2022 MCHC (RBC) [Mass/Vol] 33.4 g/dL 32.0-35.0 [facility] MCV Auto (RBC) [Entitic vol] Ordered By: Marisabel Noel on 04-23-2022 MCV (RBC) [Entitic vol] 89.2 fL 80-100 [facility] Microcytes LM Ql (Bld)Ordere d By: Marisabel Noel on 04-23-2022 Microcytes Ql (Bld) Slight [facility] Monocytes Auto (Bld) [#/Vol] Ordered By: Marisabel Noel on 04-23-2022 Monocytes (Bld) [#/Vol] 0.5 10*3/uL 0.0-0.8 [facility] Monocytes/100 WBC Auto (Bld) Ordered By: Marisabel Noel on 04-23-2022 Monocytes/100 WBC (Bld) 6.9 % . [facility] Neutrophils Auto (Bld) [#/Vo l]Ordered By: Marisabel Noel on 04-23-2022 Neutrophils (Bld) [#/Vol] 4.7 10*3/uL 1.8-7.7 [facility] Neutrophils/100 WBC Auto (Bl d)Ordered By: Marisabel Noel on 04-23-2022 Neutrophils/100 WBC (Bld) 68.2 % . [facility] Nucleated erythrocytes [Pres ence] in Blood by Automated countOrdered By: Marisabel Noel on 04-23-2022 Nucleated RBC Auto Ql (Bld) 0.1 /100{WBC} 0-0.5 [facility] Ovalocyte detectionOrdered B y: Marisabel Noel on 04-23-2022 Ovalocytes LM Ql (Bld) Slight Fi [facility] Platelet adequacy [Presence] in Blood by Light microscopyOrdered By: Marisabel Noel on 04-23-2022 Platelets LM Ql (Bld) Normal Normal [facility] Platelet mean volume Auto (B ld) [Entitic vol]Ordered By: Marisabel Noel on 04-23-2022 Platelet mean volume (Bld) [Entitic vol] 6.9 fL 6.3-10.7 [facility] Platelet morphology finding [Identifier] in BloodOrdered By: Marisabel Noel on 04-23-2022 Platelet morphology finding Nom (Bld) Normal Normal [facility] Platelets Auto (Bld) [#/Vol] Ordered By: Marisabel Noel on 04-23-2022 Platelets (Bld) [#/Vol] 298 10*3/uL 150-450 [facility] RBC Auto (Bld) [#/Vol]Ordere d By: Marisabel Noel on 04-23-2022 RBC (Bld) [#/Vol] 4.51 10*6/uL 3.60-5.[address] [facility] RBC morphologyOrdered By: Pablo Noel on 04-23-2022 RBC morphology finding Nom (Bld) N/A [facility] Red blood cell stomatocyte d etectionOrdered By: Marisabel Noel on 04-23-2022 Stomatocytes LM Ql (Bld) Slight [facility] WBC Auto (Bld) [#/Vol]Ordere d By: Marisabel Noel on 04-23-2022 WBC (Bld) [#/Vol] 7.0 10*3/uL 3.8-11.6 [facility] Basophils Auto (Bld) [#/Vol] Ordered By: Taylor Tijerina on 02-18-2022 Basophils (Bld) [#/Vol] N/A [facility] Basophils/100 WBC Auto (Bld) Ordered By: Taylor Tijerina on 02-18-2022 Basophils/100 WBC (Bld) N/A [facility] Basophils/100 WBC (Bld) 1 % 0-2 F [facility] Blood anisocytosis detection Ordered By: Taylor Tijerina on 02-18-2022 Anisocytosis Ql (Bld) Marked [facility] Blood hemoglobin measurement (mass/volume)Ordered By: Taylor Tijerina on 02-18-2022 Hemoglobin (Bld) [Mass/Vol] 11.1 g/dL 11.8-15.4 [facility] Blood leukocytes automated c ount (number/volume)Ordered By: Taylor Tijerina on 02-18-2022 WBC (Bld) [#/Vol] 4.5 10*3/uL 4.5-11.[address] [facility] [address] biopsyOrdered By: Taylor Trammell on 02-18-2022 Transferrin [Mass/Vol] 297 mg/dL 180-380 [facility] Eosinophils Auto (Bld) [#/Vo l]Ordered By: Taylor Tijerina on 02-18-2022 Eosinophils (Bld) [#/Vol] N/A [facility] Eosinophils/100 WBC Auto (Bl d)Ordered By: Taylor Tijerina on 02-18-2022 Eosinophils/100 WBC (Bld) N/A [facility] Erythrocyte distribution wid th Auto (RBC) [Ratio]Ordered By: Taylor Tijerina on 02-18-2022 Erythrocyte distribution width (RBC) [Ratio] 38.8 % 11.9-15.3 [facility] Ferritin [Mass/volume] in Se rum or PlasmaOrdered By: Taylor Tijerina on 02-18-2022 Ferritin [Mass/Vol] 229.8 ng/mL 11-306.8 [facility] Hematocrit Auto (Bld) [Volum e fraction]Ordered By: Taylor Tijerina on 02-18-2022 Hematocrit (Bld) [Volume fraction] 35.2 % 34.0-46.4 [facility] Hypochromia detectionOrdered By: Taylor Tijerina on 02-18-2022 Hypochromia Ql (Bld) Marked [facility] Iron [Mass/volume] in Serum or PlasmaOrdered By: Taylor Tijerina on 02-18-2022 Iron [Mass/Vol] 116 ug/dL 40-150 [facility] Iron binding capacity [Mass/ volume] in Serum or PlasmaOrdered By: Taylor Tijerina on 02-18-2022 Iron binding capacity [Mass/Vol] 416 ug/dL 255-450 [facility] Iron saturation [Mass Fracti on] in Serum or PlasmaOrdered By: Taylor Tijerina on 02-18-2022 Iron saturation [Mass fraction] 27.0 % 20-50 [facility] Laboratory - Hematology and Cell countsOrdered By: Taylor Tijerina on 02-18-2022 Band form neutrophils/100 WBC (Bld) 2 % 0-5 [facility] Nucleated RBC/100 WBC (Bld) [Ratio] 0.1 % 0-0.5 [facility] Lymphocytes Auto (Bld) [#/Vo l]Ordered By: Taylor Tijerina on 02-18-2022 Lymphocytes (Bld) [#/Vol] N/A [facility] Lymphocytes/100 WBC Auto (Bl d)Ordered By: Taylor Tijerina on 02-18-2022 Lymphocytes/100 WBC (Bld) N/A [facility] Lymphocytes/100 WBC (Bld) 21 % 18-42 [facility] Lymphocytes/100 WBC Manual c nt (Bld)Ordered By: Taylor Tijerina on 02-18-2022 Lymphocytes/100 WBC (Bld) 2 % 0-12 [facility] MCH Auto (RBC) [Entitic mass ]Ordered By: Taylor Tijerina on 02-18-2022 MCH (RBC) [Entitic mass] 24.7 pg 24.7-34.3 [facility] MCHC Auto (RBC) [Mass/Vol]Or dered By: Taylor Tijerina on 02-18-2022 MCHC (RBC) [Mass/Vol] 31.6 g/dL 32.0-35.0 [facility] MCV Auto (RBC) [Entitic vol] Ordered By: Taylor Tijerina on 02-18-2022 MCV (RBC) [Entitic vol] 78.3 fL 80-100 [facility] Macrocytes detectionOrdered By: Taylor Tijerina on 02-18-2022 Macrocytes Ql (Bld) Moderate [facility] Monocytes Auto (Bld) [#/Vol] Ordered By: Taylor Tijerina on 02-18-2022 Monocytes (Bld) [#/Vol] N/A [facility] Monocytes/100 WBC Auto (Bld) Ordered By: Taylor Tijerina on 02-18-2022 Monocytes/100 WBC (Bld) N/A [facility] Monocytes/100 WBC Manual cnt (Bld)Ordered By: Taylor Tijerina on 02-18-2022 Monocytes/100 WBC (Bld) 6 % 2-11 [facility] Neutrophils Auto (Bld) [#/Vo l]Ordered By: Taylor Tijerina on 02-18-2022 Neutrophils (Bld) [#/Vol] N/A [facility] Neutrophils/100 WBC Auto (Bl d)Ordered By: Taylor Tijerina on 02-18-2022 Neutrophils/100 WBC (Bld) N/A [facility] No Panel InformationOrdered By: Taylor Tijerina on 02-18-2022 Microcytosis Slight [facility] Platelet Estimate Normal Normal [facility] Platelet Morphology Comment Normal Normal [facility] Platelet mean volume Auto (B ld) [Entitic vol]Ordered By: Taylor Tijerina on 02-18-2022 Platelet mean volume (Bld) [Entitic vol] 8.4 fL 6.3-10.7 [facility] Platelets Auto (Bld) [#/Vol] Ordered By: Taylor Tijerina on 02-18-2022 Platelets (Bld) [#/Vol] 363 10*3/uL 150-450 [facility] RBC Auto (Bld) [#/Vol]Ordere d By: Taylor Tijerina on 02-18-2022 RBC (Bld) [#/Vol] 4.49 10*6/uL 3.60-5.[address] [facility] RBC morphologyOrdered By: Ana Laura ortega Prosperfeleciaedwar on 02-18-2022 RBC morphology finding Nom (Bld) N/A [facility] Red blood cell stomatocyte d etectionOrdered By: Taylor Peñaedwar on 02-18-2022 Stomatocytes LM Ql (Bld) Slight [facility] Segmented neutrophils/100 WB C Manual cnt (Bld)Ordered By: Taylor Peñaedwar on 02-18-2022 Segmented neutrophils/100 WBC (Bld) 68 % 50-70 [facility] Progress Noteson 02-17-2022 Shank Archer Authentication Interface Message Text EMERGENCY TRIAGE, TREAT AND TRANSPORT (ET3) DOCUMENTATION OF TELEHEALTH VISIT Date / Time: 02/17/2022916 Name: Nuvia Martin : 1945 SSN: [id number] EMS Agency: [facility] [x] Verbal consent obtained [] [...] Reported: Same ET3 Encounter Completed by: Cassidy Jluio MD Normal [facility] [employer] [facility] CT FACIAL BONES WO CONon CT [...] by: CARSON VASQUEZ Date: 2022-01-14 02:14 Normal [facility] XR CHEST 1 Von 01-14-2022 XR [...] JANET SCHWARTZ Date: 2022-01-14 03:18 Normal [facility] Albumin [Mass/volume] in Ser um or PlasmaOrdered By: Taylor Tijerina on 01-12-2022 Albumin [Mass/Vol] 3.1 g/dL 2.9-4.4 [facility] Basophils Auto (Bld) [#/Vol] Ordered By: Taylor Tijerina on 01-12-2022 Basophils (Bld) [#/Vol] 0.1 10*3/uL 0.0-0.2 [facility] Basophils/100 WBC Auto (Bld) Ordered By: Taylor Tijerina on 01-12-2022 Basophils/100 WBC (Bld) 0.9 % . F [facility] Blood anisocytosis detection Ordered By: Taylor Tijerina on 01-12-2022 Anisocytosis Ql (Bld) Moderate [facility] Blood hemoglobin measurement (mass/volume)Ordered By: Taylor Tijerina on 01-12-2022 Hemoglobin (Bld) [Mass/Vol] 8.2 g/dL 11.8-15.4 [facility] Blood leukocytes automated c ount (number/volume)Ordered By: Taylor Tijerina on 01-12-2022 WBC (Bld) [#/Vol] 6.0 10*3/uL 4.5-11.0 [facility] Blood polychromasia detectio n by light microscopyOrdered By: Taylor Tijerina on 01-12-2022 Polychromasia LM Ql (Bld) Slight [facility] Body fluid albumin measureme nt (mass/volume)Ordered By: Taylor Tijerina on 01-12-2022 Albumin (Body fld) [Mass/Vol] 2.9 g/dL 3.2-5.[address] [facility] [address] biopsyOrdered By: Taylor Trammell on 01-12-2022 Transferrin [Mass/Vol] 479 mg/dL 180-380 [facility] Creatinine and Glomerular fi ltration rate.predicted panel (S/P/Bld)Ordered By: Taylor Tijerina on 01-12-2022 Creatinine [Mass/Vol] 0.76 mg/dL 0.44-1.03 [facility] Eosinophils Auto (Bld) [#/Vo l]Ordered By: Taylor Tijerina on 01-12-2022 Eosinophils (Bld) [#/Vol] 0.1 10*3/uL 0.0-0.45 [facility] Eosinophils/100 WBC Auto (Bl d)Ordered By: Taylor Tijerina on 01-12-2022 Eosinophils/100 WBC (Bld) 1.3 % . [facility] Erythrocyte distribution wid th Auto (RBC) [Ratio]Ordered By: Taylor Tijerina on 01-12-2022 Erythrocyte distribution width (RBC) [Ratio] 22.4 % 11.9-15.3 [facility] Erythrocyte sedimentation ra te by Photometric methodOrdered By: Taylor Tijerina on 01-12-2022 ESR Photometric method (Bld) [Velocity] 21 mm/hr 0-29 [facility] Estimated glomerular filtrat ion rate (GFR) non- AmericanOrdered By: Taylor Tijerina on 01-12-2022 GFR/1.73 sq M.predicted among non-blacks MDRD (S/P/Bld) [Vol rate/Area] > 60 mL/Min [facility] Ferritin [Mass/volume] in Se rum or PlasmaOrdered By: Taylor Tijerina on 01-12-2022 Ferritin [Mass/Vol] 10.8 ng/mL 11-306.[address] [facility] Folate [Mass/volume] in Seru m or PlasmaOrdered By: Taylor Tijerina on 01-12-2022 Folate [Mass/Vol] ng/mL >5.9 [facility] Comment on above: Folate reference ran ge: >5.9 ng/ml The WHO technical consultation on folate and vitamin b12 deficiencies has determined that folate concentrations less than 4 ng/ml are considered deficient. Folate reference ran ge: >5.9 ng/mlThe WHO technical consultation on folate and vitamin [id number] has determined that folate concentrations lessthan 4 ng/ml are considered deficient. Globulin Calc (S) [Mass/Vol] Ordered By: Taylor Tijerina on 01-12-2022 Globulin (S) [Mass/Vol] 3.1 g/dL F [facility] Hematocrit Auto (Bld) [Volum e fraction]Ordered By: Taylor Tijernia on 01-12-2022 Hematocrit (Bld) [Volume fraction] 27.4 % 34.0-46.4 [facility] Hypochromia detectionOrdered By: Taylor Tijerina on 01-12-2022 Hypochromia Ql (Bld) Moderate [facility] IgA [Mass/volume] in Serum o r PlasmaOrdered By: Taylor Tijerina on 01-12-2022 IgA [Mass/Vol] 206 mg/dL 64-422 [facility] IgG [Mass/volume] in Serum o r PlasmaOrdered By: Taylor Tijerina on 01-12-2022 IgG [Mass/Vol] 1070 mg/dL 586-1602 [facility] IgM [Mass/volume] in Serum o r PlasmaOrdered By: Taylor Tijerina on 01-12-2022 IgM [Mass/Vol] 166 mg/dL 26-217 [facility] Comment on above: Performed at: [address] [id number] [employer] Manager: Carlos Mcintyre PhD, Phone: [phone] Performed at: [facility] [employer] [address] [id number] Director: Carlos Mcintyre PhD, Phone: [phone] Immunoglobulin light chains. kappa.free [Mass/volume] in SerumOrdered By: Taylor Tijerina on 01-12-2022 Immunoglobulin light chains.kappa.free (S) [Mass/Vol] 44.4 mg/L 3.3-19.4 [facility] Immunoglobulin light chains. kappa.free/Immunoglobulin light chains.lambda.free [MassOrdered By: Taylor Tijerina on 01-12-2022 Immunoglobulin light chains.kappa.free/Immun oglobulin light chains.lambda.free (S) [Mass ratio] 1.60 0.26-1.65 [facility] Comment on above: Performed at: [employer] [facility] [id number] [place], [place] [id number] [employer] Manager: Carlos Mcintyre PhD, Phone: [phone] Performed at: [employer] [address] [id number] Director: Carlos Mcintyre PhD, Phone: [phone] Immunoglobulin light chains. lambda.free [Mass/volume] in Serum or PlasmaOrdered By: Taylor Tijerina on 01-12-2022 Immunoglobulin light chains.lambda.free [Mass/Vol] 27.7 mg/L 5.7-26.3 [facility] Iron [Mass/volume] in Serum or PlasmaOrdered By: Taylor Tijerina on 01-12-2022 Iron [Mass/Vol] 10 ug/dL 40-150 [facility] Iron binding capacity [Mass/ volume] in Serum or PlasmaOrdered By: Taylor Tijerina on 01-12-2022 Iron binding capacity [Mass/Vol] 671 ug/dL 255-450 [facility] Iron saturation [Mass Fracti on] in Serum or PlasmaOrdered By: Taylor Tijerina on 01-12-2022 Iron saturation [Mass fraction] 1.0 % 20-50 [facility] Laboratory - Chemistry and C hemistry - challengeOrdered By: Taylor Tijerina on 01-12-2022 Cobalamin (Vitamin B12) [Mass/Vol] 700 pg/mL 180-914 [facility] Laboratory - Hematology and Cell countsOrdered By: Taylor Tijerina on 01-12-2022 Nucleated RBC/100 WBC (Bld) [Ratio] 0.2 % 0-0.5 [facility] Lymphocytes Auto (Bld) [#/Vo l]Ordered By: Taylor Tijerina on 01-12-2022 Lymphocytes (Bld) [#/Vol] 1.1 10*3/uL 1.00-4.8 [facility] Lymphocytes/100 WBC Auto (Bl d)Ordered By: Taylor Tijerina on 01-12-2022 Lymphocytes/100 WBC (Bld) 17.7 % . [facility] Lymphocytes/100 WBC (Bld) 25 % 18-42 [facility] MCH Auto (RBC) [Entitic mass ]Ordered By: Taylor Tijerina on 01-12-2022 MCH (RBC) [Entitic mass] 18.6 pg 24.7-34.3 [facility] MCHC Auto (RBC) [Mass/Vol]Or dered By: Taylor Tijerina on 01-12-2022 MCHC (RBC) [Mass/Vol] 29.8 g/dL 32.0-35.0 Fir [facility] MCV Auto (RBC) [Entitic vol] Ordered By: Taylor Tijerina on 01-12-2022 MCV (RBC) [Entitic vol] 62.5 fL 80-100 F [facility] Macrocytes detectionOrdered By: Taylor Tijerina on 01-12-2022 Macrocytes Ql (Bld) Slight [facility] Monocyte %Ordered By: Taylor hogan on 01-12-2022 Monocytes/100 WBC (Bld) 1 % 1-3 F [facility] Monocytes Auto (Bld) [#/Vol] Ordered By: Taylor Tijerina on 01-12-2022 Monocytes (Bld) [#/Vol] 0.5 10*3/uL 0.0-0.8 [facility] Monocytes/100 WBC Auto (Bld) Ordered By: Taylor Tijerina on 01-12-2022 Monocytes/100 WBC (Bld) 8.4 % . F [facility] Monocytes/100 WBC Manual cnt (Bld)Ordered By: Taylor Peñaedwar on 01-12-2022 Monocytes/100 WBC (Bld) 6 % 2-11 [facility] Neutrophils Auto (Bld) [#/Vo l]Ordered By: Taylor Tijerina on 01-12-2022 Neutrophils (Bld) [#/Vol] 4.3 10*3/uL 1.8-7.7 [facility] Neutrophils/100 WBC Auto (Bl d)Ordered By: Taylor Chengpranay on 01-12-2022 Neutrophils/100 WBC (Bld) 71.7 % . [facility] No Panel InformationOrdered By: Taylor Peñaedwar on 01-12-2022 Absolute Reticulocyte Count 0.213 10*6/uL 0.024-0.084 [facility] Estimated GFR () > 60 mL/Min [facility] Comment on above: GFR estimated refere nce range: According to KDOQI guidelines, <60 ml/min/1.73m2 is sufficient to diagnose a patient with chronic kidney disease. Microcytosis Slight [facility] Percent Reticulocyte Count 4.9 % 0.5-1.5 [facility] Pharmacy Creatinine Clearance (Chem 60.82 [facility] Platelet Estimate Normal Normal [facility] Platelet Morphology Comment Normal Normal [facility] Protein Electrophoresis M-Brooks Comment: g/dL Not Observed [facility] Comment on above: SPE shows asymmetric al gamma. Protein Electrophoresis Note See comment . [facility] Comment on above: Protein electrophore sis scan will follow via computer, mail, or environmental sampling technician delivery. Performed at: [facility] [address] [id number] [employer] Manager: Carlos Mcintyre PhD, Phone: [phone] Protein electrophore sis scan will follow via computer,mail, or environmental sampling technician delivery.Performed at: [facility] [address] [id number] Director: Carlos Mcintyre PhD, Phone: [phone] Serum Immunofixation Comment: . [facility] Comment on above: Presence of monoclon [...] volume (Bld) [Entitic vol] 8.4 fL 6.3-10.7 [facility] Platelets Auto (Bld) [#/Vol] Ordered By: Taylor Tijerina on 01-12-2022 Platelets (Bld) [#/Vol] 386 10*3/uL 150-450 [facility] Protein [Mass/volume] in Ser um or PlasmaOrdered By: Taylor Tijerina on 01-12-2022 Protein [Mass/Vol] 6.0 g/dL 6.1-7.9 [facility] Protein [Mass/Vol] 6.4 g/dL 6.0-8.5 [facility] RBC Auto (Bld) [#/Vol]Ordere d By: Taylor Tijerina on 01-12-2022 RBC (Bld) [#/Vol] 4.38 10*6/uL 3.60-5.[address] [facility] RBC morphologyOrdered By: Ana Laura Tijerina on 01-12-2022 RBC morphology finding Nom (Bld) N/A [facility] Segmented neutrophils/100 WB C Manual cnt (Bld)Ordered By: Taylor Tijerina on 01-12-2022 Segmented neutrophils/100 WBC (Bld) 68 % 50-70 [facility] Serum globulin measurement ( mass/volume)Ordered By: Taylor Tijerina on 01-12-2022 Globulin (S) [Mass/Vol] 3.3 g/dL 2.2-3.9 [facility] Serum or plasma alanine terry otransferase measurement without P-5'-P (enzymatic activiOrdered By: Taylor Tijerina on 01-12-2022 ALT No additional P-5'-P [Catalytic activity/Vol] 25 U/L 10-60 [facility] Serum or plasma albumin/glob ulin mass ratioOrdered By: Taylor Tijerina on 01-12-2022 Albumin/Globulin [Mass ratio] 0.9 {ratio} 0.7-1.7 [facility] Serum or plasma alkaline ariella sphatase measurement (enzymatic activity/volume)Ordered By: Taylor Tijerina on 01-12-2022 ALP [Catalytic activity/Vol] 52 U/L 32-92 [facility] Serum or plasma alpha 1 glob ulin measurement by electrophoresis (mass/volume)Ordered By: Taylor Tijerina on 01-12-2022 Alpha 1 globulin Elph [Mass/Vol] 0.3 g/dL 0.0-0.4 [facility] Serum or plasma alpha 2 glob ulin measurement by electrophoresis (mass/volume)Ordered By: Taylor Tijerina on 01-12-2022 Alpha 2 globulin Elph [Mass/Vol] 0.8 g/dL 0.4-1.0 [facility] Serum or plasma anion gap de terminationOrdered By: Taylor Tijerina on 01-12-2022 Anion gap [Moles/Vol] 16.3 mmol/L 6.0-15.0 [facility] Serum or plasma aspartate am inotransferase measurement (enzymatic activity/volume)Ordered By: Taylor Tijerina on 01-12-2022 AST [Catalytic activity/Vol] 42 U/L 10-42 [facility] Serum or plasma beta globuli n measurement by electrophoresis (mass/volume)Ordered By: Taylor Tijerina on 01-12-2022 Beta globulin Elph [Mass/Vol] 1.1 g/dL 0.7-1.3 [facility] Serum or plasma calcium jake urement (mass/volume)Ordered By: Taylor Tijerina on 01-12-2022 Calcium [Mass/Vol] 8.8 mg/dL 8.2-10.2 [facility] Serum or plasma chloride jie surement (moles/volume)Ordered By: Taylor Tijerina on 01-12-2022 Chloride [Moles/Vol] 84 mmol/L 95-114 [facility] Serum or plasma erythropoiet in (EPO) measurement (units/volume)Ordered By: Taylor Lilliana on 01-12-2022 Erythropoietin (EPO) Qn 745.9 mIU/mL 2.6-18.5 [facility] Comment on above: [employer] DxI 800 Immunoassay System Values obtained with different assay methods or kits cannot be used interchangeably. Results cannot be interpreted as absolute evidence of the presence or absence of malignant disease. Performed at: [facility] [address] [place], [place] [id number] [employer] Manager: Carlos Mcintyre PhD, Phone: [phone] [employer]xI 800 Immunoassay SystemValues obtained with different assay methods or kits cannotbe used interchangeably. Results cannot be interpreted asabsolute evidence of the presence or absence of malignantdisease.Performed at: [facility] [place], [place] [id number] Director: Carlos Mcintyre PhD, Phone: [phone] Serum or plasma gamma globul in measurement by electrophoresis (mass/volume)Ordered By: Taylor Tijerina on 01-12-2022 Gamma globulin Elph [Mass/Vol] 1.1 g/dL 0.4-1.8 [facility] Serum or plasma glucose jake urement (mass/volume)Ordered By: Taylor Tijerina on 01-12-2022 Glucose [Mass/Vol] 106 mg/dL 70-100 [facility] Comment on above: ADA recommended refe rence [...] on 01-12-2022 Potassium [Moles/Vol] 4.0 mmol/L 3.5-5.1 [facility] Serum or plasma sodium measu rement (moles/volume)Ordered By: Taylor Tijerina on 01-12-2022 Sodium [Moles/Vol] 125 mmol/L 136-146 [facility] Serum or plasma total biliru bin measurement (mass/volume)Ordered By: Taylor Tijerina on 01-12-2022 Bilirubin [Mass/Vol] 1.0 mg/dL 0.3-1.2 [facility] Serum or plasma total carbon dioxide measurement (moles/volume)Ordered By: Taylor Tijerina on 01-12-2022 CO2 [Moles/Vol] 28.7 mmol/L 22.0-30.0 [facility] Serum or plasma urea nitroge n measurement (mass/volume)Ordered By: Taylor Tijerina on 01-12-2022 Urea nitrogen [Mass/Vol] 9 mg/dL 02-05 [facility] BNPon 11-24-2021 Natriuretic peptide B (Bld) [Mass/Vol] 591.0 pg/mL Normal <=900.0 [facility] Comment on above: Performed By: #### C MP, BNP #### [facility] [address] [place] [address] Dr. Good Montiel CBC AUTO DIFFon 11-24-2021 BASO # 0.1 103/ul Normal 0.0-0.1 [facility] Comment on above: Performed By: #### C MP, CMADM #### [facility] [address] [place] [address] Dr. Good Montiel Basophils/100 WBC (Bld) 0.7 % Normal 0.2-2.0 [facility] Comment on above: Performed By: #### C MP, CMADM #### [facility] [address] [place] [address] Dr. Good Montiel EO # 0.2 103/ul Normal 0.0-0.7 [facility] Comment on above: Performed By: #### C MP, CMADM #### [facility] [address] [place] [address] Dr. Good Montiel Eosinophils/100 WBC (Bld) 2.4 % Normal 0.9-7.0 [facility] Comment on above: Performed By: #### C MP, CMADM #### [facility] [address] [place] [address] Dr. Good Montiel Erythrocyte distribution width (RBC) [Ratio] 19.1 % Critically high 11.0-15.0 [facility] Comment on above: Performed By: #### C MP, CMADM #### [facility] [address] [place] [address] Dr. Good Montiel Hematocrit (Bld) [Volume fraction] 25.5 % Critically low 36.0-48.0 [facility] Comment on above: Performed By: #### C TIFFANY, DOUGLASDM #### [facility] [address] [place] [address] Dr. Good Montiel Hemoglobin (Bld) [Mass/Vol] 7.4 g/dL Critically low 12.0-16.0 [facility] Comment on above: Performed By: #### C TIFFANY, DOUGLASDM #### [facility] [address] [place] [address] Dr. Good Montiel IG # 0.05 10e3/ul Critically high 0.00-0.03 [facility] Comment on above: Performed By: #### C DOUGLAS ALLENDM #### [facility] [address] [place] [address] Dr. Good Montiel IG % 0.6 % Critically high 0.0-0.5 [facility] Comment on above: Performed By: #### C DOUGLAS ALLENDM #### [facility] [address] [place] [address] Dr. Good Montiel LYMPH # 1.7 103/ul Normal 1.2-3.8 [facility] Comment on above: Performed By: #### C DOUGLAS ALLENDM #### [facility] [address] [place] [address] Dr. Good Montiel Lymphocytes/100 WBC (Bld) 20.6 % Normal 20.5-60.0 [facility] Comment on above: Performed By: #### C TIFFANY, DOUGLASDM #### [facility] [address] [place] [address] Dr. Good Montiel MANUAL DIFF REQ NO Normal [facility] Comment on above: Performed By: #### C TIFFANY, DOUGLASDM #### [facility] [address] [place] [address] Dr. Good Montiel MCH (RBC) [Entitic mass] 18.9 pg Critically low 26.7-34.0 [facility] Comment on above: Performed By: #### C DOUGLAS ALLENDM #### [facility] [address] [place] [address] Dr. Good Montiel MCHC (RBC) [Mass/Vol] 29.0 g/dL Critically low 29.9-35.2 [facility] Comment on above: Performed By: #### C MP, CMADM #### [facility] [address] [address] [address] Good Montiel MCV (RBC) [Entitic vol] 65.2 fL Critically low 81.0-99. 0 [facility] Comment on above: Performed By: #### C MP, CMADM #### [facility] [address] [address] [address] Good Montiel MONO # 0.8 103/ul Normal 0.3-0.8 [facility] Comment on above: Performed By: #### C TIFFANY, CMADM #### [facility] [address] [place] [address] Dr. Good Montiel Monocytes/100 WBC (Bld) 9.4 % Normal 1.7-12.0 [facility] Comment on above: Performed By: #### C TIFFANY, CMADM #### [facility] [address] [address] [address] Good Montiel NEUT # 5.5 103/ul Normal 1.4-6.5 [facility] Comment on above: Performed By: #### C TIFFANY, CMADM #### [facility] [address] [place] [address] Dr. Good Montiel Neutrophils/100 WBC (Bld) 66.3 % Normal 43.0-75.0 [facility] Comment on above: Performed By: #### C MP, CMADM #### [facility] [address] [address] [address] Good Montiel Platelet mean volume (Bld) [Entitic vol] 9.1 fL Critically low 9.5-13.5 [facility] Comment on above: Performed By: #### C MP, CMADM #### [facility] [address] [place] [address] Dr. Good Montiel PLT 431 103/ul Normal 150-450 [facility] Comment on above: Performed By: #### C MP, CMADM #### [facility] [address] [address] [address] Good Montiel RBC 3.91 106/ul Critically low 4.20-5.40 [facility] Comment on above: Performed By: #### C MP, CMADM #### [facility] [address] [place], [place] [address] Dr. Good Montiel WBC 8.3 103/ul Normal 4.0-11.0 [facility] Comment on above: Performed By: #### C MP, CMADM #### [facility] [address] [address] [address] Good Montiel Covid-19 PCR ([facility])on 11-13 SARS-CoV-2 (COVID-19) RNA FELECIA+probe Ql (Unsp spec) Not detected Normal NOT DETECTED [facility] Comment on above: Result Comment: [...] for this test is supported by the Removable Prosthodontist of Health and Human Service's declaration that [...] used). Performed By: #### M MA2 #### [facility] [address] [place] [address] Dr. Good Montiel PROF 14(COMP METB)on 022 Albumin [Mass/Vol] 3.1 g/dL Critically low 3.4-5.0 [facility] Comment on above: Performed By: #### C MP, BNP #### [facility] [address] [place] [address] Dr. Good Montiel Albumin/Globulin [Mass ratio] 0.9 {ratio} Normal [facility] Comment on above: Performed By: #### C MP, BNP #### [facility] [address] [place] [address] Dr. Good Montiel ALP [Catalytic activity/Vol] 60 U/L Normal 46-116 [facility] Comment on above: Performed By: #### C MP, BNP #### [facility] [address] [place] [address] Dr. Good Montiel ALT [Catalytic activity/Vol] 30 U/L Normal 14-59 [facility] Comment on above: Performed By: #### C MP, BNP #### [facility] [address] [place] [address] Dr. Good Montiel Anion gap [Moles/Vol] 10.1 mmol/L Normal [facility] Comment on above: Performed By: #### C MP, BNP #### [facility] [address] [place] [address] Dr. Good Montiel AST [Catalytic activity/Vol] 32 U/L Normal 15-37 [facility] Comment on above: Performed By: #### C MP, BNP #### [facility] [address] [place] [address] Dr. Good Montiel Bilirubin [Mass/Vol] 0.7 mg/dL Normal 0.2-1.0 [facility] Comment on above: Performed By: #### C MP, BNP #### [facility] [address] [place] [address] Dr. Good Montiel Calcium [Mass/Vol] 8.7 mg/dL Normal 8.5-10.1 [facility] [place] [facility] Comment on above: Performed By: #### C MP, BNP #### [facility] [address] [place] [address] Dr. Good Montiel Chloride [Moles/Vol] 93 mmol/L Critically low 98-107 [facility] Comment on above: Performed By: #### C MP, BNP #### [facility] [address] [place] [address] Dr. Good Montiel CO2 [Moles/Vol] 27.5 mmol/L Normal 21.0-32.0 [facility] Comment on above: Performed By: #### C MP, BNP #### [facility] [address] [place] [address] Dr. Good Montiel Creatinine [Mass/Vol] 0.80 mg/dL Normal 0.55-1.02 [facility] Comment on above: Performed By: #### C MP, BNP #### [facility] [address] [place] [address] Dr. Good Montiel EGFR-AF BOLIVIAN >60 Normal >=60 [facility] Comment on above: Performed By: #### C MP, BNP #### [facility] [address] [place] [address] Dr. Good Montiel EGFR-NON AF BOLIVIAN >60 Normal >=60 [facility] Comment on above: Performed By: #### C MP, BNP #### [facility] [address] [place] [address] Dr. Good Montiel Globulin (S) [Mass/Vol] 3.5 g/dL Normal [facility] Comment on above: Performed By: #### C MP, BNP #### [facility] [address] [place] [address] Dr. Good Montiel Glucose [Mass/Vol] 146 mg/dL Critically high 74-106 [facility] Comment on above: Performed By: #### C MP, BNP #### [facility] [address] [place] [address] Dr. Good Montiel Potassium [Moles/Vol] 3.6 mmol/L Normal 3.5-5.1 [facility] Comment on above: Performed By: #### C MP, BNP #### [facility] [address] [place] [address] Dr. Good Montiel Protein [Mass/Vol] 6.6 g/dL Normal 6.4-8.2 [facility] [place] [facility] Comment on above: Performed By: #### C MP, BNP #### [facility] [address] [place] [address] Dr. Good Montiel Sodium [Moles/Vol] 127 mmol/L Critically low 136-145 Th e [facility] Comment on above: Performed By: #### C MP, BNP #### [facility] [address] [address] [address] Good Montiel Urea nitrogen [Mass/Vol] 19.0 mg/dL Critically high 7.0-18.0 [facility] Comment on above: Performed By: #### C MP, BNP #### [facility] [address] [address] [address] Good Montiel Urea nitrogen/Creatinine [Mass ratio] 23.8 mg/mg Normal [facility] Comment on above: Performed By: #### C MP, BNP #### [facility] [address] [address] [address] Good Montiel XR CHEST 1 Von [...] by: KETAN ALVAREZ Date: 2021-11-24 00:[address] [facility] [address] LUNG CANCER SCREENINGon 0 11-10-2021 [...] by: ARIAN VARGAS Date: 2021-11-10 10:55 Normal The [facility] MAMM SCREEN 3D [place] CADon 11-10-2021 MG MAMM SCREEN 3D [place] CAD Patient: NUVIA MARTIN Exam Date: 11/10/2021 : 1945 Gender:F Ordering : DR LATONYA GE Admission #: [id number] Family : Order #: [id number] CLICK HERE TO VIEW EXAM RADIOLOGY REPORT [...] with breast cancer at age 62. LOCATION: [facility] BREAST COMPOSITION: Scattered areas fibroglandular density. [...] Vargas MD on 11/12/2021 at 08:03 Normal [facility] XR DEXA BONE DENSITYon 11-10 XR [...] by: ARIAN VARGAS Date: 2021-11-10 17:06 Normal [facility] Comprehensive Metabolic Pane bing 10-01-2021 Albumin [Mass/Vol] 3.9 g/dL Normal 3.6-5.1 [facility] Comment on above: Performed By: #### C MP #### [facility] [address], [place] [id number] Albumin/Globulin [Mass ratio] 1.4 {ratio} Normal 1.0-2.5 [facility] Comment on above: Performed By: #### C MP #### [facility] [address], [place] [id number] ALP [Catalytic activity/Vol] 51 U/L Normal 35-119 [facility] Comment on above: Performed By: #### C MP #### [facility] [address], [place] [id number] ALT [Catalytic activity/Vol] 15 U/L Normal 6-33 [facility] Comment on above: Result Comment: 04/15 Female reference range changed. Performed By: #### C MP #### [facility] [address], [place] [id number] Anion gap [Moles/Vol] 18 mmol/L Normal 12-20 [facility] Comment on above: Result Comment: Effe ctive 05/21/2019 reference range changed. Performed By: #### C MP #### [facility] [address], [place] [id number] AST [Catalytic activity/Vol] 20 U/L Normal 9-34 [facility] Comment on above: Performed By: #### C MP #### [facility] [address], [place] [id number] BUN/CREA 18 Ratio Normal 6-22 [facility] Comment on above: Performed By: #### C MP #### [facility] [address], [place] [id number] Calcium [Mass/Vol] 9.8 mg/dL Normal 8.6-10.2 [facility] Comment on above: Performed By: #### C MP #### [facility] [address], [place] [id number] Chloride [Moles/Vol] 88 mmol/L Low 98-107 [facility] Comment on above: Performed By: #### C MP #### [facility] [address], [place] [id number] CO2 [Moles/Vol] 23 mmol/L Normal 20-31 [facility] Comment on above: Performed By: #### C MP #### [facility] [address], [place] [id number] Creatinine [Mass/Vol] 0.9 mg/dL Normal 0.6-1.4 [facility] Comment on above: Performed By: #### C MP #### [facility] [address], [place] [id number] eGFRAA 77 mL/min/1.73m2 Normal >60 [facility] Comment on above: Performed By: #### C MP #### [facility] [address], [place] [id number] eGFRNAA 64 mL/min/1.73m2 Normal >60 [facility] Comment on above: Performed By: #### C MP #### [facility] [address], [place] [id number] Globulin (S) [Mass/Vol] 2.7 g/dL Normal 1.9-3.7 [facility] Comment on above: Performed By: #### C MP #### [facility] [address], [place] [id number] Glucose [Mass/Vol] 151 mg/dL High 65-99 [facility] [place] [employer] Comment on above: Result Comment: For FASTING Glucose --- ADA reference ranges: Normal 65-99 mg/dl Prediabetes 100-125 Diabetes >/= 126 Performed By: #### C MP #### [facility] [address], [place] [id number] Potassium [Moles/Vol] 4.5 mmol/L Normal 3.5-5.5 [facility] Comment on above: Performed By: #### C MP #### [facility] [address], [place] [id number] Protein [Mass/Vol] 6.6 g/dL Normal 6.1-8.1 Aga julian [facility] Comment on above: Performed By: #### C MP #### [facility] [address], [place] [id number] Sodium [Moles/Vol] 125 mmol/L Low 135-146 Aga julian [place] [employer] Comment on above: Performed By: #### C MP #### [facility] [address], [place] [id number] TBIL <0.3 Normal [facility] Comment on above: Performed By: #### C MP #### [facility] [address], [place] [id number] Urea nitrogen [Mass/Vol] 16 mg/dL Normal 7-25 [facility] Comment on above: Performed By: #### C MP #### [facility] [address], [place] [id number] VITAMIN B6on 08-20-2021 Vitamin B6 50.1 ug/L Critically high 2.0-32.8 The [facility] Comment on above: Result Comment: Ef fective August 17, 2021 Vitamin B6 reference interval will be changing to: 3.4 - 65.2 ug/L Deficiency: < 3.4 Marginal: 3.4 - 5.1 Adequate: > 5.1 Performed By: #### V ITAB6 ####[facility] [address] [address]Dr. Good Montiel METHYLMALONIC ACID (MMA)on 0 08-18-2021 Methylmalonic Acid, Serum 327 nmol/L Normal 0-378 [facility] Comment on above: Performed By: #### M MA2 #### [facility] [address] [address] [address] Good Montiel IMMUNOFIX ELEC, PROTEIN ELEC URINEon 08-14-2021 Albumin, U 55.3 % Normal [facility] Comment on above: Performed By: #### C TIFFANY, DOUGLASDM #### [facility] [address] [address] [address] Good Montiel Rkjlv-2-Ynxrxlfp, U 3.9 % Normal The [facility] Comment on above: Performed By: #### C TIFFANY, DOUGLASDM #### [facility] [address] [address] [address] Good Montiel Salmo-1-Odskhveo, U 6.7 % Normal [facility] Comment on above: Performed By: #### C TIFFANY, DOUGLASDM #### [facility] [address] [address] [address] Good Montiel Beta Globulin, U 12.9 % Normal The [facility] Comment on above: Performed By: #### C TIFFANY, DOUGLASDM #### [facility] [address] [address] [address] Good Montiel Gamma Globulin, U 21.1 % Normal The [facility] Comment on above: Performed By: #### C TIFFANY, DOUGLASDM #### [facility] [address] [address] [address] Good Montiel Immunofixation Result, Urine Comment: Normal [facility] Comment on above: Result Comment: Pres ence of monoclonal protein is unclear at this time. Suggest repeat in 3 to 6 months if clinically indicated. Performed By: #### C TIFFANY, CMADM #### [facility] [address] [address] [address] Good Montiel M-Brooks, % Not Observed Normal Not Observed The [facility] Comment on above: Performed By: #### C TIFFANY, CMADM #### [facility] [address] [address] [address] Good Montiel Note: Comment Normal [facility] Comment on above: Result Comment: Prot ein electrophoresis scan will follow via computer, mail, or environmental sampling technician delivery. Performed By: #### C SERAFIN ALLEN #### [facility] [address] [place] [address] Dr. Good Montiel PDF . Normal [facility] Comment on above: Performed By: #### C TIFFANY, SERAFIN #### [facility] [address] [address] [address] Good Montiel Protein (U) [Mass/Vol] 12.2 mg/dL Normal Not Estab. Th [facility] Comment on above: Performed By: #### C TIFFANY, SERAFIN #### [facility] [address] [place] [address] Dr. Good Montiel WEST NILE VIRUS AB (IGG AND IGM)on 08-14-2021 West Nile Virus, IgG Negative Normal Negative [facility] Comment on above: Result Comment: No d etectable West Nile Virus IgG Antibody. If a recent infection is suspected, another specimen should be submitted for testing within 7-14 days. Performed By: #### C SERAFIN ALLEN #### [facility] [address] [place] [address] Dr. Good Montiel West Nile Virus, IgM Negative Normal Negative [facility] Comment on above: Result Comment: No d etectable West Nile Virus IgM Antibody. If a recent infection is suspected, another specimen should be submitted for testing within 7-14 days. Performed By: #### C TIFFANY, SERAFIN #### [facility] [address] [place] [address] Dr. Good Montiel JAY EIA W/REFLEX 5 BIOMARKER Son 08-13-2021 JAY Direct Negative Normal Negative [facility] Comment on above: Performed By: #### A NARF ####[facility] [address] [address]. Good Montiel C-REACTIVE PROTEINS (HS)on 0 08-13-2021 C-Reactive Protein, Cardiac 0.55 mg/L Normal 0.00-3.00 [facility] Comment on above: Result Comment: Rela tive Risk for Future Cardiovascular Event Low <1.00 Average 1.00 - 3.00 High >3.00 Performed By: #### C [facility] ####[facility] [address] [address]Dr. Good Montiel HOMOCYSTEINEon 08-13-2021 Homocyst(e)ine, Plasma 15.3 umol/L Normal 0.0-19.2 [facility] Comment on above: Performed By: #### H [facility] #### [facility] [address] [address] [address] Good Montiel IMMUNOFIXATION ELEC, PROTEIN ELECon 08-13-2021 Albumin [Mass/Vol] 3.7 g/dL Normal 2.9-4.4 [facility] [place] [facility] Comment on above: Performed By: #### Hakeem MA2 #### [facility] [address] [place] [address] Dr. Good Montiel Albumin/Globulin [Mass ratio] 1.1 {ratio} Normal 0.7-1.7 [facility] Comment on above: Performed By: #### Hakeem MA2 #### [facility] [address] [address] [address] Good Montiel Mblvm-7-Fyslorpz 0.2 g/dL Normal 0.0-0.4 [facility] Comment on above: Performed By: #### Hakeem MA2 #### [facility] [address] [place] [address] Dr. Good Montiel Nvqzl-8-Nhcjskmq 0.9 g/dL Normal 0.4-1.0 [facility] Comment on above: Performed By: #### Hakeem MA2 #### [facility] [address] [address] [address] Good Montiel Beta Globulin 1.2 g/dL Normal 0.7-1.3 The [facility] Comment on above: Performed By: #### Hakeem MA2 #### [facility] [address] [address] [address] Good Montiel Gamma Globulin 1.2 g/dL Normal 0.4-1.8 The [facility] Comment on above: Performed By: #### M MA2 #### [facility] [address] [address] [address] Good Montiel Globulin (S) [Mass/Vol] 3.4 g/dL Normal 2.2-3.9 [facility] Comment on above: Performed By: #### M MA2 #### [facility] [address] [address] [address] Good Montiel Immunofixation Result, Serum Comment: Normal [facility] Comment on above: Result Comment: Pres ence of monoclonal protein is unclear at this time. Suggest repeat in 3 to 6 months if clinically indicated. Performed By: #### M MA2 #### [facility] [address] [address] [address] Good Montiel Immunoglobulin A, Qn, Serum 269 mg/dL Normal 64-422 [facility] Comment on above: Performed By: #### M MA2 #### [facility] [address] [address] [address] Good Montiel Immunoglobulin G, Qn, Serum 1056 mg/dL Normal 586-1602 [facility] Comment on above: Performed By: #### M MA2 #### [facility] [address] [address] [address] Good Montiel Immunoglobulin M, Qn, Serum 201 mg/dL Normal 26-217 [facility] Comment on above: Performed By: #### M MA2 #### [facility] [address] [address] [address] Good Montiel M-Brooks Comment: Normal Not Observed [facility] Comment on above: Result Comment: ASYM METRICAL GAMMA Performed By: #### M MA2 #### [facility] [address] [address] [address] Good Montiel PDF . Normal [facility] Comment on above: Performed By: #### M MA2 #### [facility] [address] [address] [address] Good Montiel Please note: Comment Normal [facility] Comment on above: Result Comment: Prot ein electrophoresis scan will follow via computer, mail, or environmental sampling technician delivery. Performed By: #### M MA2 #### [facility] [address] [address] [address] Good Montiel Protein [Mass/Vol] 7.1 g/dL Normal 6.0-8.5 [facility] Comment on above: Performed By: #### M MA2 #### [facility] [address] [address] [address] Good Montiel LYME DISEASE AB EIA W REFLEX on 08-13-2021 Lyme Total Antibody,EIA Negative Normal Negative [facility] Comment on above: Result Comment: Lyme Antibody Negative No laboratory evidence of infection with B. burgdorferi (Lyme disease). Negative results may occur in patients recently infected (greater than or equal to 14 days) with B. burgdorferi. If recent infection is suspected, repeat testing on a new sample collected in 7 to 14 days is recommended. Performed By: #### L YMA ####[facility] [address] [address]Dr. Good Montiel RHEUMATOID FACTORon 08-14-19 22 RA Latex Turbid. 10.1 IU/mL Normal <14.0 [facility] Comment on above: Performed By: #### C SERAFIN ALLEN #### [facility] [address] [address] [address] Good Montiel RPR QUANTon 08-13-2021 Rapid Plasma Reagin, Quant Non-Reactive Normal NonRea<1:1 [facility] Comment on above: Result Comment: Plea se Note: This test does not meet current guidelines for screening and diagnosis of syphilis. This test is intended for following treatment response in patients being treated for syphilis infection. To screen for syphilis infection, a reflex cascade that includes both RPR and a treponema-specific assay should be utilized, such as Treponema pallidum (Syphilis) Screening Peggs (069150) or Rapid Plasma Reagin (RPR) Test With Reflex to Quantitative RPR and Confirmatory Treponema pallidum Antibodies (614327). Performed By: #### C TIFFANY, CMADM #### [facility] [address] [address] [address] Good Montiel FREE T4on 08-12-2021 Free T4 [Mass/Vol] 1.03 ng/dL Normal 0.78-2.19 [facility] Comment on above: Performed By: #### B 12FOL, FT4 ####[facility] [address] [address]Dr. Good Montiel SED RATE WESTERGRENon 2021 SED RATE 17 mm/hr Normal <=30 [facility] Comment on above: Performed By: #### C MP, CMADM #### [facility] [address] [address] [address] Good Montiel TSHon 08-12-2021 TSH 3.737 uIU/mL Normal 0.470-4.680 [facility] Comment on above: Performed By: #### T SH ####[facility] [address] [place], [place] [address]Dr. Good Montiel TSH RANGE SEE BELOW Normal [facility] Comment on above: Result Comment: <0.3 4 UIU/ml HYPERTHYROID 0.34-5.60 UIU/ml EUTHYROID >5.60 UIU/ml HYPOTHYROID Performed By: #### T SH ####[facility] [address] [place], [place] [address]Dr. Good Montiel VIT B12 AND FOLATEon 022 Cobalamin (Vitamin B12) [Mass/Vol] 741.0 pg/mL Normal 239.0-931.0 [facility] Comment on above: Performed By: #### B 12FOL, FT4 ####[facility] [address] [address]Dr. Good Montiel FOLATE >20.00 Normal >=2.76 [facility] Comment on above: Performed By: #### B 12FOL, FT4 ####[facility] [address] [address]Dr. Good Montiel CBC AUTO DIFFon 06-10-2021 BASO # 0.1 103/ul Normal 0.0-0.1 [facility] Comment on above: Performed By: #### C BC ####[facility] [address] [place], [place] [address]Dr. Good Montiel Basophils/100 WBC (Bld) 0.7 % Normal 0.2-2.0 [facility] Comment on above: Performed By: #### C BC ####[facility] [address] [id number]. Good Montiel EO # 0.2 103/ul Normal 0.0-0.7 [facility] Comment on above: Performed By: #### C BC ####[facility] [address] [address]Dr. Good Montiel Eosinophils/100 WBC (Bld) 1.6 % Normal 0.9-7.0 [facility] Comment on above: Performed By: #### C BC ####[facility] [address] [place], [place] [address]Dr. Good Montiel Erythrocyte distribution width (RBC) [Ratio] 18.7 % Critically high 11.0-15.0 [facility] Comment on above: Performed By: #### C BC ####[facility] [address] [place], [place] [address]Dr. Good Montiel Hematocrit (Bld) [Volume fraction] 29.6 % Critically low 36.0-48.0 [facility] Comment on above: Performed By: #### C BC ####[facility] [address] [place], [place] [address]Dr. Good Montiel Hemoglobin (Bld) [Mass/Vol] 9.1 g/dL Critically low 12.0-16.0 [facility] Comment on above: Performed By: #### C BC ####[facility] [address] [place] [id number]. Good Montiel IG # 0.06 10e3/ul Critically high 0.00-0.03 [facility] Comment on above: Performed By: #### C BC ####[facility] [address] [place], [place] [id number]. Good Montiel IG % 0.6 % Critically high 0.0-0.5 [facility] Comment on above: Performed By: #### C BC ####[facility] [address] [place] [address]Dr. Good Montiel LYMPH # 2.0 103/ul Normal 1.2-3.8 [facility] Comment on above: Performed By: #### C BC ####[facility] [address] [place] [address]Dr. Rejoo Montiel Lymphocytes/100 WBC (Bld) 18.5 % Critically low 20.5-60.0 [facility] Comment on above: Performed By: #### C BC ####[facility] [address] [place] [address]Dr. Good Montiel MANUAL DIFF REQ NO Normal [facility] Comment on above: Performed By: #### C BC ####[facility] [address] [place] [address]Dr. Good Montiel MCH (RBC) [Entitic mass] 21.8 pg Critically low 26.7-34.0 [facility] Comment on above: Performed By: #### C BC ####[facility] Mg[address]yl[address] [place], [place] [address]Dr. Good Montiel MCHC (RBC) [Mass/Vol] 30.7 g/dL Normal 29.9-35.2 [facility] Comment on above: Performed By: #### C BC ####[facility] [address] [place] [address]Dr. Good Montiel MCV (RBC) [Entitic vol] 71.0 fL Critically low 81.0-99. 0 [facility] Comment on above: Performed By: #### C BC ####[facility] [address] [place] [address]Dr. Good Montiel MONO # 0.8 103/ul Normal 0.3-0.8 [facility] Comment on above: Performed By: #### C BC ####[facility] [address] [place], [place] [address]Dr. Good Montiel Monocytes/100 WBC (Bld) 7.0 % Normal 1.7-12.0 [facility] Comment on above: Performed By: #### C BC ####[facility] [address] [place], [place] [address]Pr. Good Montiel NEUT # 7.6 103/ul Critically high 1.4-6.5 [facility] Comment on above: Performed By: #### C BC ####[facility] [address] [place] [id number]. Good Montiel Neutrophils/100 WBC (Bld) 71.6 % Normal 43.0-75.0 [facility] Comment on above: Performed By: #### C BC ####[facility] [address]he[address]wt[address] [place] [id number]. Good Dinesh Platelet mean volume (Bld) [Entitic vol] 8.4 fL Critically low 9.5-13.5 [facility] Comment on above: Performed By: #### C BC ####[facility] [address]xs[address] [place] [id number]. Good Montiel PLT 442 103/ul Normal 150-450 [facility] Comment on above: Performed By: #### C BC ####[facility] [address]zzje[address]sez[address] [place] [id number]. Good Montiel RBC 4.17 106/ul Critically low 4.20-5.40 [facility] Comment on above: Performed By: #### C BC ####[facility] [address] [place] [id number]. Rejoo Montiel WBC 10.7 103/ul Normal 4.0-11.0 [facility] Comment on above: Performed By: #### C BC ####[facility] [address]fkh[address]ttu[address] [place] [id number]. Good Montiel CRPon 06-10-2021 CRP [Mass/Vol] mg/L Normal <=1.0 [facility] Comment on above: Performed By: #### M MA2 #### [facility] [address] [place], [place] [address] Dr. Good Montiel ER URINE PROFILEon 2 Bilirubin Ql (U) Negative Normal NEGATIVE [facility] Comment on above: Performed By: #### E RUR ####[facility] [address] [place], [place] [address]Dr. Good Montiel Clarity (U) CLEAR Normal CLEAR The [facility] Comment on above: Performed By: #### E RUR ####[facility] J[address] [place], [place] [address]Dr. Good Montiel Color (U) YELLOW Normal YELLOW The [facility] Comment on above: Performed By: #### E RUR ####[facility] [address] [place], [place] [address]Dr. Good Montiel ERUAHD A micrscopic examination will be performed if indicated. Normal The [facility] Comment on above: Performed By: #### E RUR ####[facility] [address] [place], [place] [address]Dr. Good Montiel Glucose Ql (U) Negative Normal NEGATIVE [facility] Comment on above: Performed By: #### E RUR ####[facility] [address] [place], [place] [address]Dr. Good Montiel Hemoglobin Ql (U) Negative Normal NEGATIVE [facility] Comment on above: Performed By: #### E RUR ####[facility] [address] [place], [place] [address]Dr. Good Montiel Ketones Ql (U) Negative Normal NEGATIVE [facility] Comment on above: Performed By: #### E RUR ####[facility] [address] [place], [place] [address]Dr. Good Montiel LEUKOCYTES Negative Normal NEGATIVE [facility] Comment on above: Performed By: #### E RUR ####[facility] Sl[address] [place], [place] [address]Dr. Good Montiel Nitrite Ql (U) Negative Normal NEGATIVE [facility] Comment on above: Performed By: #### E RUR ####[facility] [address]pe[address] [place], [place] [address]Dr. Good Montiel pH (U) 6.5 [pH] Normal 5-9 [facility] Comment on above: Performed By: #### E RUR ####[facility] [address]qc[address] [place], [place] [address]DrSmooth Montiel SPEC GRAVITY 1.010 Normal 1.005-<=1.02 5 [facility] Comment on above: Performed By: #### E RUR ####[facility] [address] [place] [address]DrSmooth Montiel UA PROTEIN Negative Normal NEGATIVE/ TRACE [facility] Comment on above: Performed By: #### E RUR ####[facility] [address] [place] [address]DrSmooth Montiel UR MICRO IND NOT INDICATED Normal [facility] Comment on above: Performed By: #### E RUR ####[facility] [address] [place] [address]DrSmooth Montiel Urobilinogen Qn (U) 0.2 {Momo'U}/dL Normal 0.2 - 1. 0 [facility] Comment on above: Performed By: #### E RUR ####[facility] X[address] [place] [address]Dr. oGod Montiel LACTATE/LACTIC ACIDon 2021 Lactate [Moles/Vol] 1.9 mmol/L Normal 0.7-2.0 [facility] Comment on above: Performed By: #### L ACT ####[facility] X[address] [place], [place] [address]Dr. Good Montiel PROF 14(COMP METB)on 022 Albumin [Mass/Vol] 3.0 g/dL Critically low 3.5-5.0 [facility] Comment on above: Performed By: #### M MA2 #### [facility] [address] [place] [address] Dr. Good Montiel Albumin/Globulin [Mass ratio] 0.9 {ratio} Normal [facility] Comment on above: Performed By: #### Hakeem DU2 #### [facility] [address] [place] [address] [address] Good Montiel ALP [Catalytic activity/Vol] 36 U/L Critically low 38-126 [facility] Comment on above: Performed By: #### Hakeem DU2 #### [facility] [address] [place] [address] [address] Good Montiel ALT [Catalytic activity/Vol] 26 U/L Normal 9-52 [facility] Comment on above: Performed By: #### M MA2 #### [facility] [address] [place] [address] [address] Good Montiel Anion gap [Moles/Vol] 12.2 mmol/L Normal Th [facility] Comment on above: Performed By: #### M MA2 #### [facility] [address] [place] [address] [address] Good Montiel AST [Catalytic activity/Vol] 23 U/L Normal 14-36 [facility] Comment on above: Performed By: #### M MA2 #### [facility] [address] [place] [address] [address] Good Montiel Bilirubin [Mass/Vol] 0.4 mg/dL Normal 0.2-1.3 [facility] Comment on above: Performed By: #### M MA2 #### [facility] [address] [place] [address] Dr. Good Montiel Calcium [Mass/Vol] 8.5 mg/dL Normal 8.4-10.2 [facility] [place] [facility] Comment on above: Performed By: #### M MA2 #### [facility] [address] [place] [address] Dr. Good Montiel Chloride [Moles/Vol] 93 mmol/L Critically low 98-107 The [facility] Comment on above: Performed By: #### M MA2 #### [facility] [address] [place] [address] Dr. Good Montile CO2 [Moles/Vol] 27.6 mmol/L Normal 22.0-30.0 [facility] Comment on above: Performed By: #### M MA2 #### [facility] [address] [place] [address] [address] Good Montiel Creatinine [Mass/Vol] 0.78 mg/dL Normal 0.52-1.04 [facility] Comment on above: Performed By: #### M ANA LAURA2 #### [facility] [address] [place] [address] [address] Good Montiel EGFR-AF BOLIVIAN >60 Normal >=60 [facility] Comment on above: Performed By: #### M MA2 #### [facility] [address] [place] [address] Dr. Good Montiel EGFR-NON AF BOLIVIAN >60 Normal >=60 [facility] Comment on above: Performed By: #### M MA2 #### [facility] [address] [place] [address] [address] Good Montiel Globulin (S) [Mass/Vol] 3.2 g/dL Normal [facility] Comment on above: Performed By: #### M MA2 #### [facility] [address] [place] [address] Dr. Good Montiel Glucose [Mass/Vol] 111 mg/dL Critically high 74-106 [facility] Comment on above: Performed By: #### M MA2 #### [facility] [address] [place] [address] Dr. Good Montiel Potassium [Moles/Vol] 3.8 mmol/L Normal 3.4-5.0 [facility] Comment on above: Performed By: #### M MA2 #### [facility] [address] [place] [address] Dr. Good Montiel Protein [Mass/Vol] 6.2 g/dL Normal 6.1-8.2 [facility] [place] [facility] Comment on above: Performed By: #### M MA2 #### [facility] [address] [place] [address] Dr. Good Montiel Sodium [Moles/Vol] 129 mmol/L Critically low 137-145 [facility] Comment on above: Performed By: #### M MA2 #### [facility] [address] [place] [address] Dr. Good Montiel Urea nitrogen [Mass/Vol] 17.0 mg/dL Normal 7.0-17.0 [facility] Comment on above: Performed By: #### M MA2 #### [facility] [address] [place] [address] Dr. Good Montiel Urea nitrogen/Creatinine [Mass ratio] 21.8 mg/mg Normal [facility] Comment on above: Performed By: #### Hakeem DU2 #### [facility] [address] [place] [address] Dr. Good Montiel TROPONIN, HIGH SENSITIVITYon 06-10-2021 HSTROP 9.8 pg/mL Normal 4.0-35.5 [facility] Comment on above: Result Comment: CUT- OFF POINTS HAVE BEEN ESTABLISHED BASED ON THE FOURTH UNIVERSAL DEFINITIONS OF MYOCARDIAL INFARCTION. THE UPPER REFERENCE LIMIT (URL) OF TROPONIN, DEFINED THE 99TH PERCENTILE OF cTnI DISTRIBUTION IN A REFERENCE POPULATION, HAS BEEN CONFIRMED THE DECISION THRESHOLD FOR [place] DIAGNOSIS. Performed By: #### Hakeem DU2 #### [facility] [address] [place] [address] Dr. Good Montiel TSHon 06-10-2021 TSH 7.927 uIU/mL Critically high 0.470-4.680 [facility] [place] [facility] Comment on above: Performed By: #### Hakeem RIVERA #### [facility] [address] [place] [address] Dr. Good Montiel TSH RANGE SEE BELOW Normal [facility] Comment on above: Result Comment: <0.3 4 UIU/ml HYPERTHYROID 0.34-5.60 UIU/ml EUTHYROID >5.60 UIU/ml HYPOTHYROID Performed By: #### Hakeem RIVERA #### [facility] [address] [place] [address] Dr. Good Montiel CBC AUTO DIFFon 06-06-2021 BASO # 0.1 103/ul Normal 0.0-0.1 [facility] Comment on above: Performed By: #### C TIFFANY, CMADM #### [facility] [address] [place] [address] Dr. Good Montiel Basophils/100 WBC (Bld) 0.7 % Normal 0.2-2.0 [facility] Comment on above: Performed By: #### C TIFFANY, CMADM #### [facility] [address] [place] [address] Dr. Good Montiel EO # 0.2 103/ul Normal 0.0-0.7 [facility] Comment on above: Performed By: #### C TIFFANY, CMADM #### [facility] [address] [place] [address] [address] Good Montiel Eosinophils/100 WBC (Bld) 2.5 % Normal 0.9-7.0 [facility] Comment on above: Performed By: #### C TIFFANY, CMADM #### [facility] [address] [place] [address] Dr. Good Montiel Erythrocyte distribution width (RBC) [Ratio] 18.5 % Critically high 11.0-15.0 [facility] Comment on above: Performed By: #### C TIFFANY, DOUGLASDM #### [facility] [address] [place] [address] Dr. Good Montiel Hematocrit (Bld) [Volume fraction] 30.1 % Critically low 36.0-48.0 [facility] Comment on above: Performed By: #### C TIFFANY, DOUGLASDM #### [facility] [address] [place] [address] Dr. Good Montiel Hemoglobin (Bld) [Mass/Vol] 9.3 g/dL Critically low 12.0-16.0 [facility] Comment on above: Performed By: #### C DOUGLAS ALLENDM #### [facility] [address] [place] [address] Dr. Good Montiel IG # 0.06 10e3/ul Critically high 0.00-0.03 [facility] Comment on above: Performed By: #### C TIFFANY, CMADM #### [facility] [address] [place] [address] Dr. Good Montiel IG % 0.7 % Critically high 0.0-0.5 [facility] Comment on above: Performed By: #### C TIFFANY, CMADM #### [facility] [address] [place] [address] Dr. Good Montiel LYMPH # 2.0 103/ul Normal 1.2-3.8 [facility] Comment on above: Performed By: #### C TIFFANY, DOUGLASDM #### [facility] [address] [place] [address] Dr. Good Montiel Lymphocytes/100 WBC (Bld) 23.0 % Normal 20.5-60.0 [facility] Comment on above: Performed By: #### C TIFFANY, DOUGLASDM #### [facility] [address] [place] [address] Dr. Good Montiel MANUAL DIFF REQ NO Normal [facility] Comment on above: Performed By: #### C TIFFANY, DOUGLASDM #### [facility] [address] [place] [address] Dr. Good Montiel MCH (RBC) [Entitic mass] 21.9 pg Critically low 26.7-34.0 [facility] Comment on above: Performed By: #### C TIFFANY, DOUGLASDM #### [facility] [address] [place] [address] Dr. Good Montiel MCHC (RBC) [Mass/Vol] 30.9 g/dL Normal 29.9-35.2 [facility] Comment on above: Performed By: #### C TIFFANY, DOUGLASDM #### [facility] [address] [place] [address] Dr. Good Montiel MCV (RBC) [Entitic vol] 70.8 fL Critically low 81.0-99. 0 [facility] Comment on above: Performed By: #### C TIFFANY, DOUGLASDM #### [facility] [address] [place] [address] Dr. Good Montiel MONO # 1.0 103/ul Critically high 0.3-0.8 [facility] Comment on above: Performed By: #### C TIFFANY, DOUGLASDM #### [facility] [address] [place] [address] Dr. Good Montiel Monocytes/100 WBC (Bld) 11.3 % Normal 1.7-12.0 [facility] Comment on above: Performed By: #### C TIFFANY, CMADM #### [facility] [address] [place] [address] Dr. Good Montiel NEUT # 5.2 103/ul Normal 1.4-6.5 [facility] Comment on above: Performed By: #### C TIFFANY, DOUGLASDM #### [facility] [address] [place] [address] [address] Good Montiel Neutrophils/100 WBC (Bld) 61.8 % Normal 43.0-75.0 [facility] Comment on above: Performed By: #### C TIFFANY, CMADM #### [facility] [address] [place] [address] [address] Good Montiel Platelet mean volume (Bld) [Entitic vol] 8.5 fL Critically low 9.5-13.5 [facility] Comment on above: Performed By: #### C TIFFANY, CMADM #### [facility] [address] [place] [address] [address] Good Montiel PLT 455 103/ul Critically high 150-450 [facility] Comment on above: Performed By: #### C TIFFANY, CMADM #### [facility] [address] [place] [address] Dr. Good Montiel RBC 4.25 106/ul Normal 4.20-5.40 [facility] Comment on above: Performed By: #### C TIFFANY, CMADM #### [facility] [address] [place] [address] [address] Good Montiel WBC 8.5 103/ul Normal 4.0-11.0 [facility] Comment on above: Performed By: #### C TIFFANY, CMADM #### [facility] [address] [place] [address] Dr. Good Montiel POINT OF CARE GLUCOSEon 05-17 Glucose [Mass/Vol] 164 mg/dL Critically high 74-106 [facility] Comment on above: Performed By: #### C TIFFANY, CMADM #### [facility] [address] [place] [address] Dr. Good Montiel PROF 14(COMP METB)on 022 Albumin [Mass/Vol] 3.2 g/dL Critically low 3.5-5.0 [facility] Comment on above: Performed By: #### M MA2 #### [facility] [address] [place] [address] Dr. Good Montiel Albumin/Globulin [Mass ratio] 1.1 {ratio} Normal [facility] Comment on above: Performed By: #### M MA2 #### [facility] [address] [place] [address] [address] Good Montiel ALP [Catalytic activity/Vol] 37 U/L Critically low 38-126 [facility] Comment on above: Performed By: #### M MA2 #### [facility] [address] [place] [address] [address] Good Montiel ALT [Catalytic activity/Vol] 26 U/L Normal 9-52 [facility] Comment on above: Performed By: #### M MA2 #### [facility] [address] [place] [address] [address] Good Montiel Anion gap [Moles/Vol] 11.5 mmol/L Normal Th e [facility] Comment on above: Performed By: #### M MA2 #### [facility] [address] [place] [address] [address] Good Montiel AST [Catalytic activity/Vol] 25 U/L Normal 14-36 [facility] Comment on above: Performed By: #### M MA2 #### [facility] [address] [place] [address] [address] Good Montiel Bilirubin [Mass/Vol] 0.4 mg/dL Normal 0.2-1.3 [facility] Comment on above: Performed By: #### M MA2 #### [facility] [address] [place] [address] [address] Good Montiel Calcium [Mass/Vol] 8.8 mg/dL Normal 8.4-10.2 [facility] [place] [facility] Comment on above: Performed By: #### M MA2 #### [facility] [address] [place] [address] [address] Good Montiel Chloride [Moles/Vol] 93 mmol/L Critically low 98-107 [facility] Comment on above: Performed By: #### M MA2 #### [facility] [address] [place] [address] [address] Good Montiel CO2 [Moles/Vol] 28.2 mmol/L Normal 22.0-30.0 [facility] Comment on above: Performed By: #### M MA2 #### [facility] [address] [place] [address] [address] Good Montiel Creatinine [Mass/Vol] 0.57 mg/dL Normal 0.52-1.04 [facility] Comment on above: Performed By: #### M MA2 #### [facility] [address] [place] [address] [address] Good Montiel EGFR-AF BOLIVIAN >60 Normal >=60 [facility] Comment on above: Performed By: #### M MA2 #### [facility] [address] [place] [address] [address] Good Montiel EGFR-NON AF BOLIVIAN >60 Normal >=60 [facility] Comment on above: Performed By: #### M MA2 #### [facility] [address] [place] [address] [address] Good Montiel Globulin (S) [Mass/Vol] 3.0 g/dL Normal [facility] Comment on above: Performed By: #### M MA2 #### [facility] [address] [place] [address] [address] Good Montiel Glucose [Mass/Vol] 106 mg/dL Normal 74-106 [facility] [place] [facility] Comment on above: Performed By: #### M MA2 #### [facility] [address] [place] [address] [address] Good Montiel Potassium [Moles/Vol] 3.7 mmol/L Normal 3.4-5.0 [facility] Comment on above: Performed By: #### M MA2 #### [facility] [address] [place] [address] [address] Good Montiel Protein [Mass/Vol] 6.2 g/dL Normal 6.1-8.2 [facility] [place] [facility] Comment on above: Performed By: #### M MA2 #### [facility] [address] [place] [address] [address] Good Montiel Sodium [Moles/Vol] 129 mmol/L Critically low 137-145 Th [facility] Comment on above: Performed By: #### M MA2 #### [facility] [address] [place] [address] [address] Good Montiel Urea nitrogen [Mass/Vol] 14.0 mg/dL Normal 7.0-17.0 [facility] Comment on above: Performed By: #### M MA2 #### [facility] [address] [place] [address] [address] Good Montiel Urea nitrogen/Creatinine [Mass ratio] 24.6 mg/mg Normal [facility] Comment on above: Performed By: #### M MA2 #### [facility] [address] [place] [address] Dr. Good Montiel CARDIAC LOGAN ADMITon 022 CK [Catalytic activity/Vol] 55 U/L Normal 30-135 [facility] Comment on above: Performed By: #### C TIFFANY, DOUGLASDM #### [facility] [address] [place] [address] Dr. Good Montiel CK.MB [Mass/Vol] 2.09 ng/mL Normal <=2.37 [facility] Comment on above: Performed By: #### C TIFFANY, DOUGLASDM #### [facility] [address] [place] [address] Dr. Good Montiel HSTROP 10.2 pg/mL Normal 4.0-35.5 [facility] Comment on above: Result Comment: CUT- OFF POINTS HAVE BEEN ESTABLISHED BASED ON THE FOURTH UNIVERSAL DEFINITIONS OF MYOCARDIAL INFARCTION. THE UPPER REFERENCE LIMIT (URL) OF TROPONIN, DEFINED THE 99TH PERCENTILE OF cTnI DISTRIBUTION IN A REFERENCE POPULATION, HAS BEEN CONFIRMED THE DECISION THRESHOLD FOR [place] DIAGNOSIS. Performed By: #### C TIFFANY, CMADM #### [facility] [address] [place] [address] Dr. Good Montiel CLIF 61.0 ng/mL Normal <=61.5 [facility] Comment on above: Performed By: #### C TIFFANY, DOUGLASDM #### [facility] [address] [place] [address] Dr. Good Montiel CBC AUTO DIFFon 06-05-2021 BASO # 0.1 103/ul Normal 0.0-0.1 [facility] Comment on above: Performed By: #### C BC ####[facility] [address] [place] [id number]. Good Montiel Basophils/100 WBC (Bld) 0.8 % Normal 0.2-2.0 [facility] Comment on above: Performed By: #### C BC ####[facility] [address] [place] [phone]. Good Montiel EO # 0.2 103/ul Normal 0.0-0.7 [facility] Comment on above: Performed By: #### C BC ####[facility] [address] [place] [address]Dr. Good Montiel Eosinophils/100 WBC (Bld) 2.2 % Normal 0.9-7.0 [facility] Comment on above: Performed By: #### C BC ####[facility] [address] [place], [place] [address]Dr. Good Montiel Erythrocyte distribution width (RBC) [Ratio] 18.2 % Critically high 11.0-15.0 [facility] Comment on above: Performed By: #### C BC ####[facility] [address] [place], [place] [address]Dr. Good Montiel Hematocrit (Bld) [Volume fraction] 31.1 % Critically low 36.0-48.0 [facility] Comment on above: Performed By: #### C BC ####[facility] [address] [place], [place] [address]Dr. Good Montiel Hemoglobin (Bld) [Mass/Vol] 9.6 g/dL Critically low 12.0-16.0 [facility] Comment on above: Performed By: #### C BC ####[facility] [address] [place], [place] [address]Dr. Good Montiel IG # 0.07 10e3/ul Critically high 0.00-0.03 [facility] Comment on above: Performed By: #### C BC ####[facility] [address] [place], [place] [id number]. Good Montiel IG % 0.9 % Critically high 0.0-0.5 [facility] Comment on above: Performed By: #### C BC ####[facility] [address] [place] [address]DrSmooth Montiel LYMPH # 1.3 103/ul Normal 1.2-3.8 [facility] Comment on above: Performed By: #### C BC ####[facility] [address] [place] [phone]. Good Montiel Lymphocytes/100 WBC (Bld) 17.2 % Critically low 20.5-60.0 [facility] Comment on above: Performed By: #### C BC ####[facility] [address] [place] [address]DrSmooth Montiel MANUAL DIFF REQ NO Normal [facility] Comment on above: Performed By: #### C BC ####[facility] [address] [place] [address]DrSmooth Montiel MCH (RBC) [Entitic mass] 21.8 pg Critically low 26.7-34.0 [facility] Comment on above: Performed By: #### C BC ####[facility] [address] [place] [address]Dr. Good Montiel MCHC (RBC) [Mass/Vol] 30.9 g/dL Normal 29.9-35.2 [facility] Comment on above: Performed By: #### C BC ####[facility] [address] [place] [address]DrSmooth Montiel MCV (RBC) [Entitic vol] 70.5 fL Critically low 81.0-99. 0 [facility] Comment on above: Performed By: #### C BC ####[facility] [address] [place] [address]DrSmooth Montiel MONO # 0.6 103/ul Normal 0.3-0.8 [facility] Comment on above: Performed By: #### C BC ####[facility] [address] [place] [phone] Montiel Monocytes/100 WBC (Bld) 8.3 % Normal 1.7-12.0 [facility] Comment on above: Performed By: #### C BC ####[facility] [address] [place] [phone]. Good Montiel NEUT # 5.3 103/ul Normal 1.4-6.5 [facility] Comment on above: Performed By: #### C BC ####[facility] [address]kp25[address] [place] [phone]. Good Montiel Neutrophils/100 WBC (Bld) 70.6 % Normal 43.0-75.0 [facility] Comment on above: Performed By: #### C BC ####[facility] [address] [place] [phone]. Good Montiel Platelet mean volume (Bld) [Entitic vol] 8.3 fL Critically low 9.5-13.5 [facility] Comment on above: Performed By: #### C BC ####[facility] [address] [place] [phone]. Good Montiel PLT 463 103/ul Critically high 150-450 [facility] Comment on above: Performed By: #### C BC ####[facility] [address] [place] [phone]. Good Montiel RBC 4.41 106/ul Normal 4.20-5.40 [facility] Comment on above: Performed By: #### C BC ####[facility] [address] [place] [phone]. Good Montiel WBC 7.6 103/ul Normal 4.0-11.0 [facility] Comment on above: Performed By: #### C BC ####[facility] [address] [place] [phone]. Good Montiel CT STROKE HEAD WOon 06-05-19 [...] GINGER BROOKS Date: 2021-06-05 10:30 Normal [facility] Covid-19 PCR (CVDTBH)on 05-17 SARS-CoV-2 (COVID-19) RNA FELECIA+probe Ql (Unsp spec) Not detected Normal NOT DETECTED [facility] Comment on above: Result Comment: [...] for this test is supported by the Removable Prosthodontist of Health and Human Service's declaration that [...] longer be used). Performed By: #### C [facility] #### [facility] [address] [place] [address] Dr. Good Montiel ECHOCARDIO M/2D COMPLETEon 0 06-05-2021 ECHOCARDIO M/2D COMPLETE Patient: NUVIA MARTIN Exam Date: 06/05/2021 : 1945 Gender:F Ordering : DR. RHIANNON OLSON . Admission #: [id number] Family : DR WILY PRADO M.D. Order #: [id number] CLICK HERE TO VIEW EXAM ECHOCARDIOGRAM REPORT [...] Area(A4C): 18.50 cm2 Left Atrium Systolic Volume(A2C): 51803 mm3 Left Atrium Systolic Volume(A4C): 92591 mm3 Mitral Valve MV E to A [...] Ramírez M.D. on 06/08/2021 at 14:19 Normal [facility] GLYCOHEMOGLOBIN A1Con 2021 ADA RECOMMENDATION ADA THERAPEUTIC TARGET 6.0 - 7.0 ACTION SUGGESTED > 7.0 Normal [facility] Comment on above: Performed By: #### M MA2 #### [facility] [address] [address] [address] Good Montiel Glucose [Mass/Vol] 131 mg/dL Normal [facility] [place] [facility] Comment on above: Performed By: #### M MA2 #### [facility] [address] [place], [place] [address] Dr. Good Montiel HbA1c (Bld) [Mass fraction] 6.2 % Critically high <=6.0 [facility] Comment on above: Performed By: #### M MA2 #### [facility] [address] [place], [place] [address] Dr. Good Montiel LIPID PROFILEon 06-05-2021 CHOL-HDL RATIO NORM SEE BELOW Normal [facility] Comment on above: Result Comment: 3.3 - 4.4 LOW RISK 4.4 - 7.1 AVERAGE RISK 7.1 - 11.0 MODERATE RISK >11.0 HIGH RISK Performed By: #### C TIFFANY, SERAFIN #### [facility] [address] [address] [address] Good Montiel Cholesterol [Mass/Vol] 157 mg/dL Normal <=200 Th [facility] Comment on above: Performed By: #### C TIFFANY, CMADM #### [facility] [address] [address] [address] Good Montiel Cholesterol in HDL [Mass/Vol] 44 mg/dL Normal [facility] Comment on above: Performed By: #### C TIFFANY, SERAFIN #### [facility] [address] [address] [address] Good Montiel Cholesterol in LDL [Mass/Vol] 80.0 mg/dL Normal [facility] Comment on above: Performed By: #### C SERAFIN ALLEN #### [facility] [address] [address] [address] Good Montiel Cholesterol.total/Rocío sterol in HDL [Mass ratio] 3.6 {ratio} Normal [facility] Comment on above: Performed By: #### C TIFFANY, CMADM #### [facility] [address] [address] [address] Good Montiel HDL NORMAL > or = 60 mg/dl - LOW CARDIOVASCULAR RISK <40 mg/dl - HIGH CARDIOVASCULAR RISK Normal [facility] Comment on above: Performed By: #### C TIFFANY, CMADM #### [facility] [address] [address] [address] Good Montiel LDL CALC NORMAL SEE BELOW Normal [facility] Comment on above: Result Comment: <100 mg/dl OPTIMAL 100 - 129 mg/dl NEAR OR ABOVE OPTIMAL 130 - 159 mg/dl BORDERLINE HIGH 160 - 189 mg/dl HIGH >190 mg/dl VERY HIGH Performed By: #### C TIFFANY, SERAFIN #### [facility] [address] [address] [address] Good Montiel Triglyceride [Mass/Vol] 165 mg/dL Critically high <=150 [facility] Comment on above: Performed By: #### C TIFFANY, DOUGLASDM #### [facility] [address] [place], [place] [address] Dr. Good Montiel VLDL CALC 33.0 mg/dL Normal [facility] Comment on above: Performed By: #### C TIFFANY, DOUGLASDM #### [facility] [address] [place], [place] [address] Dr. Good Montiel MRI BRAIN WO CONon [...] by: ALFONSO ALTMAN Date: 2021-06-05 15:08 Normal [facility] POINT OF CARE GLUCOSEon 05-17 Glucose [Mass/Vol] 119 mg/dL Critically high 74-106 [facility] Comment on above: Performed By: #### P OCGLUC ####[facility] [address] [place], [place] [address]HcDr. Good Montiel Glucose [Mass/Vol] 169 mg/dL Critically high 74-106 [facility] Comment on above: Performed By: #### P OCGLUC ####[facility] [address] [place], [place] [address]ObDr. Good Montiel Glucose [Mass/Vol] 119 mg/dL Critically high 74-106 [facility] Comment on above: Performed By: #### P OCGLUC ####[facility] [address] [place], [place] [address]MfDr. Good Montiel PROF 14(COMP METB)on 022 Albumin [Mass/Vol] 3.3 g/dL Critically low 3.5-5.0 [facility] Comment on above: Performed By: #### C SERAFIN ALLEN #### [facility] [address] [address] [address] Good Montiel Albumin/Globulin [Mass ratio] 1.0 {ratio} Normal [facility] Comment on above: Performed By: #### C SERAFIN ALLEN #### [facility] [address] [address] [address] Good Montiel ALP [Catalytic activity/Vol] 40 U/L Normal 38-126 [facility] Comment on above: Performed By: #### C SERAFIN ALLEN #### [facility] [address] [address] [address] Good Montiel ALT [Catalytic activity/Vol] 23 U/L Normal 9-52 [facility] Comment on above: Performed By: #### C SERAFIN ALLEN #### [facility] [address] [address] [address] Good Montiel Anion gap [Moles/Vol] 11.3 mmol/L Normal [facility] Comment on above: Performed By: #### C TIFFANY, DOUGLASDM #### [facility] [address] [address] [address] Good Montiel AST [Catalytic activity/Vol] 20 U/L Normal 14-36 [facility] Comment on above: Performed By: #### C TIFFANY, DOUGLASDM #### [facility] [address] [address] [address] Good Montiel Bilirubin [Mass/Vol] 0.6 mg/dL Normal 0.2-1.3 [facility] Comment on above: Performed By: #### C TIFFANY, CMADM #### [facility] [address] [place] [address] Dr. Good Montiel Calcium [Mass/Vol] 8.5 mg/dL Normal 8.4-10.2 [facility] [place] [facility] Comment on above: Performed By: #### C TIFFANY, CMADM #### [facility] [address] [place] [address] Dr. Good Montiel Chloride [Moles/Vol] 90 mmol/L Critically low 98-107 [facility] Comment on above: Performed By: #### C TIFFANY, CMADM #### [facility] [address] [place] [address] Dr. Good Montiel CO2 [Moles/Vol] 28.5 mmol/L Normal 22.0-30.0 [facility] Comment on above: Performed By: #### C TIFFANY, CMADM #### [facility] [address] [place] [address] Dr. Good Montiel Creatinine [Mass/Vol] 0.89 mg/dL Normal 0.52-1.04 [facility] Comment on above: Performed By: #### C TIFFANY, DOUGLASDM #### [facility] [address] [place] [address] Dr. Good Montiel EGFR-AF BOLIVIAN >60 Normal >=60 [facility] Comment on above: Performed By: #### C TIFFANY, CMADM #### [facility] [address] [place] [address] Dr. Good Montiel EGFR-NON AF BOLIVIAN >60 Normal >=60 [facility] Comment on above: Performed By: #### C TIFFANY, CMADM #### [facility] [address] [place] [address] Dr. Good Montiel Globulin (S) [Mass/Vol] 3.3 g/dL Normal [facility] Comment on above: Performed By: #### C TIFFANY, CMADM #### [facility] [address] [place] [address] Dr. Good Montiel Glucose [Mass/Vol] 128 mg/dL Critically high 74-106 [facility] Comment on above: Performed By: #### C TIFFANY, DOUGLASDM #### [facility] [address] [place] [address] Dr. Good Montiel Potassium [Moles/Vol] 3.8 mmol/L Normal 3.4-5.0 [facility] Comment on above: Performed By: #### C TIFFANY, DOUGLASDM #### [facility] [address] [place] [address] Dr. Good Montiel Protein [Mass/Vol] 6.6 g/dL Normal 6.1-8.2 [facility] [place] [facility] Comment on above: Performed By: #### C DOUGLAS ALLENDM #### [facility] [address] [place] [address] Dr. Good Montiel Sodium [Moles/Vol] 126 mmol/L Critically low 137-145 Th [facility] Comment on above: Performed By: #### C DOUGLAS ALLENDM #### [facility] [address] [place] [address] Dr. Good Montiel Urea nitrogen [Mass/Vol] 16.0 mg/dL Normal 7.0-17.0 [facility] Comment on above: Performed By: #### C SERAFIN ALLEN #### [facility] [address] [place] [address] Dr. Good Montiel Urea nitrogen/Creatinine [Mass ratio] 18.0 mg/mg Normal [facility] Comment on above: Performed By: #### C DOUGLAS ALLENDM #### [facility] [address] [place] [address] Dr. Good Montiel US CAROTID ART BILon [...] GINGER BROOKS Date: 2021-06-05 15:31 Normal [facility] XR CHEST 1 Von 06-05-2021 [...] GINGER BROOKS Date: 2021-06-05 09:36 Normal [facility] CT HEAD WO CONon 06-04-2021 [...] GINGER BROOKS Date: 2021-06-04 08:06 Normal [facility] BNPon 05-27-2021 Natriuretic peptide B (Bld) [Mass/Vol] 285.0 pg/mL Normal <=900.0 [facility] Comment on above: Performed By: #### C MADM, CMP, BNP ####[facility] [address] [place] [address]Dr. Good Montiel CARDIAC LOGAN ADMITon 022 CK [Catalytic activity/Vol] 60 U/L Normal 30-135 [facility] Comment on above: Performed By: #### C MADM, CMP, BNP ####[facility] [address] [place] [address]Dr. Good Montiel CK.MB [Mass/Vol] 2.13 ng/mL Normal <=2.37 [facility] Comment on above: Performed By: #### C MADM, CMP, BNP ####[facility] [address] [place], [place] [address]Dr. Good Montiel HSTROP 10.8 pg/mL Normal 4.0-35.5 [facility] Comment on above: Result Comment: CUT- OFF POINTS HAVE BEEN ESTABLISHED BASED ON THE FOURTH UNIVERSAL DEFINITIONS OF MYOCARDIAL INFARCTION. THE UPPER REFERENCE LIMIT (URL) OF TROPONIN, DEFINED THE 99TH PERCENTILE OF cTnI DISTRIBUTION IN A REFERENCE POPULATION, HAS BEEN CONFIRMED THE DECISION THRESHOLD FOR [place] DIAGNOSIS. Performed By: #### C MADM, CMP, BNP ####[facility] [address] [place] [address]Dr. Good Montiel CLIF 62.0 ng/mL Critically high <=61.5 [facility] Comment on above: Performed By: #### C MADM, CMP, BNP ####[facility] [address] [place] [address]Dr. Good Montiel CBC AUTO DIFFon 05-27-2021 BASO # 0.1 103/ul Normal 0.0-0.1 [facility] Comment on above: Performed By: #### C BC ####[facility] [address] [place] [address]Dr. Good Montiel Basophils/100 WBC (Bld) 0.8 % Normal 0.2-2.0 [facility] Comment on above: Performed By: #### C BC ####[facility] [address] [place], [place] [address]Dr. Good Montiel EO # 0.3 103/ul Normal 0.0-0.7 [facility] Comment on above: Performed By: #### C BC ####[facility] [address] [place] [id number]. Good Montiel Eosinophils/100 WBC (Bld) 3.1 % Normal 0.9-7.0 [facility] Comment on above: Performed By: #### C BC ####[facility] [address] [place] [phone]. Good Montiel Erythrocyte distribution width (RBC) [Ratio] 18.4 % Critically high 11.0-15.0 [facility] Comment on above: Performed By: #### C BC ####[facility] [address] [place] [address]Dr. Good Montiel Hematocrit (Bld) [Volume fraction] 31.8 % Critically low 36.0-48.0 [facility] Comment on above: Performed By: #### C BC ####[facility] [address] [place], [place] [address]Dr. Good Montiel Hemoglobin (Bld) [Mass/Vol] 9.8 g/dL Critically low 12.0-16.0 [facility] Comment on above: Performed By: #### C BC ####[facility] [address] [place], [place] [address]Dr. Good Montiel IG # 0.09 10e3/ul Critically high 0.00-0.03 [facility] Comment on above: Performed By: #### C BC ####[facility] [address] [place] [address]Dr. Good Montiel IG % 1.1 % Critically high 0.0-0.5 [facility] Comment on above: Performed By: #### C BC ####[facility] [address] [place] [address]Dr. Good Montiel LYMPH # 1.6 103/ul Normal 1.2-3.8 [facility] Comment on above: Performed By: #### C BC ####[facility] [address] [place] [phone]. Good Montiel Lymphocytes/100 WBC (Bld) 18.5 % Critically low 20.5-60.0 [facility] Comment on above: Performed By: #### C BC ####[facility] [address] [place] [address]Dr. Good Montiel MANUAL DIFF REQ NO Normal [facility] Comment on above: Performed By: #### C BC ####[facility] [address] [place] [phone]. Good Montiel MCH (RBC) [Entitic mass] 22.1 pg Critically low 26.7-34.0 [facility] Comment on above: Performed By: #### C BC ####[facility] [address] [address]Dr. Good Montiel MCHC (RBC) [Mass/Vol] 30.8 g/dL Normal 29.9-35.2 [facility] Comment on above: Performed By: #### C BC ####[facility] [address] [place], [place] [address]Dr. Good Montiel MCV (RBC) [Entitic vol] 71.6 fL Critically low 81.0-99. 0 [facility] Comment on above: Performed By: #### C BC ####[facility] [address] [place], [place] [address]Dr. Good Montiel MONO # 0.7 103/ul Normal 0.3-0.8 [facility] Comment on above: Performed By: #### C BC ####[facility] [address] [place] [address]Dr. Good Montiel Monocytes/100 WBC (Bld) 8.8 % Normal 1.7-12.0 [facility] Comment on above: Performed By: #### C BC ####[facility] [address] [place], [place] [address]DrSmooth Montiel NEUT # 5.7 103/ul Normal 1.4-6.5 [facility] Comment on above: Performed By: #### C BC ####[facility] [address] [place] [id number] Montiel Neutrophils/100 WBC (Bld) 67.7 % Normal 43.0-75.0 [facility] Comment on above: Performed By: #### C BC ####[facility] [address] [place], [place] [address]Pt. Good Montiel Platelet mean volume (Bld) [Entitic vol] 8.2 fL Critically low 9.5-13.5 [facility] Comment on above: Performed By: #### C BC ####[facility] [address] [place], [place] [address]Kz. Good Montiel PLT 382 103/ul Normal 150-450 [facility] Comment on above: Performed By: #### C BC ####[facility] [address] [place], [place] [address]Gk. Good Montiel RBC 4.44 106/ul Normal 4.20-5.40 [facility] Comment on above: Performed By: #### C BC ####[facility] [address] [place], [place] [address]Dy. Good Montiel WBC 8.4 103/ul Normal 4.0-11.0 [facility] Comment on above: Performed By: #### C BC ####[facility] [address] [place], [place] [address]n. [address] STROKE HEAD WOon 05-27-19 [...] GINGER BROOKS Date: 2021-05-27 07:10 Normal [facility] PROF 14(COMP METB)on 05-27- 022 Albumin [Mass/Vol] 3.3 g/dL Critically low 3.5-5.0 Th [facility] Comment on above: Performed By: #### C MADM, CMP, BNP ####[facility] [address] [place] [address]Dr. Good Montiel Albumin/Globulin [Mass ratio] 1.0 {ratio} Normal [facility] Comment on above: Performed By: #### C MADM, CMP, BNP ####[facility] [address] [place] [address]Dr. Good Montiel ALP [Catalytic activity/Vol] 43 U/L Normal 38-126 [facility] Comment on above: Performed By: #### C MADM, CMP, BNP ####[facility] [address] [place] [address]Dr. Good Montiel ALT [Catalytic activity/Vol] 27 U/L Normal 9-52 [facility] Comment on above: Performed By: #### C MADM, CMP, BNP ####[facility] [address] [place] [address]Dr. Good Montiel Anion gap [Moles/Vol] 8.1 mmol/L Normal [facility] Comment on above: Performed By: #### C MADM, CMP, BNP ####[facility] [address] [place] [address]Dr. Good Montiel AST [Catalytic activity/Vol] 23 U/L Normal 14-36 [facility] Comment on above: Performed By: #### C MADM, CMP, BNP ####[facility] [address] [place] [address]Dr. Good Montiel Bilirubin [Mass/Vol] 0.4 mg/dL Normal 0.2-1.3 [facility] Comment on above: Performed By: #### C MADM, CMP, BNP ####[facility] [id number] [place] [address]Dr. Good Montiel Calcium [Mass/Vol] 8.5 mg/dL Normal 8.4-10.2 [facility] [place] [facility] Comment on above: Performed By: #### C MADM, CMP, BNP ####[facility] [address] [place] [address]Dr. Good Montiel Chloride [Moles/Vol] 94 mmol/L Critically low 98-107 [facility] Comment on above: Performed By: #### C MADM, CMP, BNP ####[facility] [address] [place] [address]Dr. Good Montiel CO2 [Moles/Vol] 29.9 mmol/L Normal 22.0-30.0 [facility] Comment on above: Performed By: #### C MADM, CMP, BNP ####[facility] [address] [place] [address]Dr. Good Montiel Creatinine [Mass/Vol] 0.77 mg/dL Normal 0.52-1.04 [facility] Comment on above: Performed By: #### C MADM, CMP, BNP ####[facility] [address] [place] [address]Dr. Good Montiel EGFR-AF BOLIVIAN >60 Normal >=60 [facility] Comment on above: Performed By: #### C MADM, CMP, BNP ####[facility] [address] [place] [address]Dr. Good Montiel EGFR-NON AF BOLIVIAN >60 Normal >=60 [facility] Comment on above: Performed By: #### C MADM, CMP, BNP ####[facility] [address] [place] [address]Dr. Good Montiel Globulin (S) [Mass/Vol] 3.4 g/dL Normal [facility] Comment on above: Performed By: #### C MADM, CMP, BNP ####[facility] [address] [place] [address]Dr. Good Montiel Glucose [Mass/Vol] 114 mg/dL Critically high 74-106 [facility] Comment on above: Performed By: #### C MADM, CMP, BNP ####[facility] [address] [place] [id number]. Good Montiel Potassium [Moles/Vol] 4.0 mmol/L Normal 3.4-5.0 [facility] Comment on above: Performed By: #### C MADM, CMP, BNP ####[facility] [address] [place] [id number]. Good Montiel Protein [Mass/Vol] 6.7 g/dL Normal 6.1-8.2 [facility] [place] [facility] Comment on above: Performed By: #### C MADM, CMP, BNP ####[facility] [address] [place] [address]Dr. Good Montiel Sodium [Moles/Vol] 128 mmol/L Critically low 137-145 [facility] Comment on above: Performed By: #### C MADM, CMP, BNP ####[facility] [address] [place] [address]Dr. Good Montiel Urea nitrogen [Mass/Vol] 12.0 mg/dL Normal 7.0-17.0 [facility] Comment on above: Performed By: #### C MADM, CMP, BNP ####[facility] [address] [place] [address]Dr. Good Montiel Urea nitrogen/Creatinine [Mass ratio] 15.6 mg/mg Normal [facility] Comment on above: Performed By: #### C MADM, CMP, BNP ####[facility] [address] [place] [address]DrSmooth Montiel PROTIMEon 05-27-2021 INR Coag (PPP) [Relative time] 1.01 {INR} Normal [facility] Comment on above: Performed By: #### Hakeem DU2 #### [facility] [address] [address] [address] Good Montiel INR GUIDELINES SEE BELOW Normal [facility] Comment on above: Result Comment: JEANNINE RED INR: 2.0 - 3.0 CONDITIONS NOT LISTED BELOW 2.5 - 3.5 FOR PROSTHETIC HEART VALVE REPLACEMENT 2.5 - 3.5 RECURRENT THROMBOSIS Performed By: #### Hakeem DU2 #### [facility] [address] [place], [place] [address] Dr. Good Montiel PT Coag (PPP) [Time] 10.9 s Normal 9.0-11.6 [facility] Comment on above: Performed By: #### M MA2 #### [facility] [address] [place], [place] [address] Dr. Good Montiel PTTon 05-27-2021 aPTT Coag (Bld) [Time] 24.5 s Normal 22.3-36.2 [facility] Comment on above: Performed By: #### M MA2 #### [facility] [id number] Good Montiel XR CHEST 1 Von [...] by: GINGER BROOKS Date: 2021-05-27 07:53 Normal [facility] Vital Signs Date Time Vital Sign Value Performing Clinician Facility 10-11-2024 15:48-0400 Body height 149.9 cm Wily Prado MD Work Phone: [facility] 10-11-2024 15:48-0400 Body mass index (BMI) [Ratio] 34.74 kg/m2 Wily Prado MD Work Phone: [facility] 10-11-2024 15:48-0400 Body weight 78.02 kg Wily Prado MD Work Phone: [facility] 10-11-2024 15:48-0400 Diastolic blood pressure 60 mm[Hg] Wily Prado MD Work Phone: [facility] 10-11-2024 15:48-0400 Heart rate 64 /min Wily Prado MD Work Phone: [facility] 10-11-2024 15:48-0400 SaO2% (BldA) [Mass fraction] 94 % Wily Prado MD Work Phone: [facility] 10-11-2024 15:48-0400 Systolic blood pressure 130 mm[Hg] Wily Prado MD Work Phone: [facility] 05-11-2024 08:34-0500 Diastolic blood pressure 60 mm[Hg] Wily Prado MD Work Phone: [facility] 05-11-2024 08:34-0500 Systolic blood pressure 160 mm[Hg] Wily Prado MD Work Phone: [facility] 05-08-2024 08:24-0500 Body height 149.9 cm Wily Prado MD Work Phone: [facility] 05-08-2024 08:24-0500 Body mass index (BMI) [Ratio] 33.33 kg/m2 Wily Prado MD Work Phone: [facility] 05-08-2024 08:24-0500 Body weight 74.84 kg Wily Prado MD Work Phone: [facility] 05-08-2024 08:24-0500 Diastolic blood pressure 92 mm[Hg] Wily Prado MD Work Phone: [facility] 05-08-2024 08:24-0500 Heart rate 61 /min Wily Prado MD Work Phone: [facility] 05-08-2024 08:24-0500 Respiratory rate 17 /min Wily Prado MD Work Phone: [facility] 05-08-2024 08:24-0500 SaO2% (BldA) [Mass fraction] 98 % Wily Prado MD Work Phone: [facility] 05-08-2024 08:24-0500 Systolic blood pressure 184 mm[Hg] Wily Prado MD Work Phone: [facility] 01-17-2024 10:04-0400 Body height 149.9 cm Wily Prado MD Work Phone: [facility] 01-17-2024 10:04-0400 Body mass index (BMI) [Ratio] 33.12 kg/m2 Wily Prado MD Work Phone: [facility] 01-17-2024 10:04-0400 Body weight 74.39 kg Wily Prado MD Work Phone: [facility] 01-17-2024 10:04-0400 Diastolic blood pressure 84 mm[Hg] Wily Prado MD Work Phone: [facility] 01-17-2024 10:04-0400 Heart rate 58 /min Wily Prado MD Work Phone: [facility] 01-17-2024 10:04-0400 SaO2% (BldA) [Mass fraction] 97 % Wily Prado MD Work Phone: [facility] 01-17-2024 10:04-0400 Systolic blood pressure 138 mm[Hg] Wily Prado MD Work Phone: [facility] 02-01-2023 10:58-0400 Body temperature 97.2 [degF] MD Wily Prado Work Phone: [facility] 02-01-2023 10:58-0400 Body weight 78.92 kg MD Wily Prado Work Phone: [facility] 02-01-2023 10:58-0400 Diastolic blood pressure 66 mm[Hg] MD Wily Prado Work Phone: [facility] 02-01-2023 10:58-0400 Heart rate 67 /min MD Wily Prado Work Phone: [facility] 02-01-2023 10:58-0400 Respiratory rate 16 /min MD Wily Prado Work Phone: [facility] 02-01-2023 10:58-0400 SaO2% (BldA) [Mass fraction] 95 % MD Wily Prado Work Phone: [facility] 02-01-2023 10:58-0400 Systolic blood pressure 171 mm[Hg] MD Wily Prado Work Phone: [facility] 11-02-2022 09:46-0400 Body temperature 97.8 [degF] MD Wily Prado Work Phone: [facility] 11-02-2022 09:46-0400 Body weight 78.01 kg MD Wily Prado Work Phone: [facility] 11-02-2022 09:46-0400 Diastolic blood pressure 79 mm[Hg] MD Wliy Prado Work Phone: [facility] 11-02-2022 09:46-0400 Heart rate 64 /min MD Wily Prado Work Phone: [facility] 11-02-2022 09:46-0400 Respiratory rate 16 /min MD Wily Prado Work Phone: [facility] 11-02-2022 09:46-0400 SaO2% (BldA) [Mass fraction] 95 % MD Wily Prado Work Phone: [facility] 11-02-2022 09:46-0400 Systolic blood pressure 179 mm[Hg] MD Wily Prado Work Phone: [facility] 07-30-2022 10:49-0400 Body temperature 97.7 [degF] MD Wily Prado Work Phone: [facility] 07-30-2022 10:49-0400 Body weight 81 kg MD Wily Prado Work Phone: [facility] 07-30-2022 10:49-0400 Diastolic blood pressure 81 mm[Hg] MD Wily Prado Work Phone: [facility] 07-30-2022 10:49-0400 Heart rate 64 /min MD Wily Prado Work Phone: [facility] 07-30-2022 10:49-0400 Respiratory rate 16 /min MD Wily Prado Work Phone: [facility] 07-30-2022 10:49-0400 SaO2% (BldA) [Mass fraction] 96 % MD Wily Prado Work Phone: [facility] 07-30-2022 10:49-0400 Systolic blood pressure 166 mm[Hg] MD Wily Prado Work Phone: [facility] 04-26-2022 09:37-0500 Body temperature 97.8 [degF] MD Wily Prado Work Phone: [facility] 04-26-2022 09:37-0500 Body weight 80.4 kg MD Wily Prado Work Phone: [facility] 04-26-2022 09:37-0500 Diastolic blood pressure 71 mm[Hg] MD Wily Prado Work Phone: [facility] 04-26-2022 09:37-0500 Heart rate 60 /min MD Wily rPado Work Phone: [facility] 04-26-2022 09:37-0500 Respiratory rate 16 /min MD Wily Prado Work Phone: [facility] 04-26-2022 09:37-0500 SaO2% (BldA) [Mass fraction] 93 % MD Wily Prado Work Phone: [facility] 04-26-2022 09:37-0500 Systolic blood pressure 145 mm[Hg] MD Wily Prado Work Phone: [facility] 02-22-2022 11:08-0400 Body temperature 98 [degF] MD Wily Prado Work Phone: [facility] 02-22-2022 11:08-0400 Body weight 80.73 kg MD Wily Prado Work Phone: [facility] 02-22-2022 11:08-0400 Diastolic blood pressure 56 mm[Hg] MD Wily Prado Work Phone: [facility] 02-22-2022 11:08-0400 Heart rate 65 /min MD Wily Prado Work Phone: [facility] 02-22-2022 11:08-0400 Respiratory rate 16 /min MD Wily Prado Work Phone: [facility] 02-22-2022 11:08-0400 SaO2% (BldA) [Mass fraction] 95 % MD Wily Prado Work Phone: [facility] 02-22-2022 11:08-0400 Systolic blood pressure 163 mm[Hg] MD Wily Prado Work Phone: [facility] 01-12-2022 11:24-0400 Body temperature 97.9 [degF] MD Wily Prado Work Phone: [facility] 01-12-2022 11:24-0400 Body weight 87.86 kg MD Wily Prado Work Phone: [facility] 01-12-2022 11:24-0400 Diastolic blood pressure 63 mm[Hg] MD Wily Prado Work Phone: [facility] 01-12-2022 11:24-0400 Heart rate 58 /min MD Wily Prado Work Phone: [facility] 01-12-2022 11:24-0400 Respiratory rate 18 /min MD Wily Prado Work Phone: [facility] 01-12-2022 11:24-0400 SaO2% (BldA) [Mass fraction] 97 % MD Wily Prado Work Phone: [facility] 01-12-2022 11:24-0400 Systolic blood pressure 169 mm[Hg] MD Wily Prado Work Phone: [facility] 01-12-2022 11:14-0400 Body height 152.4 cm MD Wily Prado Work Phone: [facility] 02-24-2021 13:00-0400 Body height 152.4 cm Mikie Mijaresrer Other [employer] Other 02-24-2021 13:00-0400 Body mass index (BMI) [Ratio] 37.1 kg/m2 Mikie Pughehrer Other [employer] Other 02-24-2021 13:00-0400 Body temperature 97.6 [degF] Mikie Mijaresrer Other [employer] Other 02-24-2021 13:00-0400 Body weight 86.18 kg Mikie Mijaresrer Other [employer] Other 02-24-2021 13:00-0400 Diastolic blood pressure 67 mm[Hg] Mikie Buehrer Other [employer] Other 02-24-2021 13:00-0400 Systolic blood pressure 166 mm[Hg] Mikie Buehrer Other [employer] Other Encounters Encounter Date Encounter Type Care Provider Facility Start: 12-24-2024 End: 12-24-2024 ambulatory Danitza Murray MD Facility: [facility] Start: 12-14-2024 End: 12-14-2024 Jordan GE Work Phone: [facility] [facility] Comment on above: Other insomnia Start: 12-10-2024 End: 12-11-2024 Jordan Prado MD Work Phone: [facility] [facility] Comment on above: Other insomnia Start: 11-18-2024 End: 11-19-2024 Jordan Prado MD Work Phone: [facility] Comment on above: Essential hypertensi on Start: 11-09-2024 End: 11-09-2024 Refill Wily Prado MD Work Phone: [facility] Comment on above: Other insomnia Start: 10-19-2024 End: 10-19-2024 ambulatory RUGEN Hakeem JOHAN Not Available Start: 10-12-2024 End: 10-12-2024 Telephone encounter Latonya GE Work Phone: [facility] Start: 10-11-2024 End: 10-11-2024 ambulatory RUGAPOLINAR M JOHAN Not Available Start: 10-11-2024 End: 10-11-2024 Office [...] on (CMS/HCC) Start: 05-11-2024 End: 05-11-2024 ambulatory RUGEN JOHAN Not Available Start: 05-08-2024 End: 05-08-2024 Bamboo [...] with long-term current use of insulin (CMS/HCC) (Primary Dx); Mixed hyperlipidemia (CMS/HCC); Agitation states as acute reaction to exceptional (gross) stress; Essential hypertension (CMS/HCC); Other insomnia; Hypertensive emergency (CMS/HCC) Start: 05-08-2024 End: 05-08-2024 ambulatory RUGEN M JOHAN Not Available Start: 05-04-2024 End: 05-04-2024 Refill Madiha Negrete MA [facility] Comment on above: Other insomnia Start: 03-26-2024 End: 03-26-2024 Refill Madiha Negrete MA [facility] Comment on above: Other insomnia Start: 03-20-2024 End: 03-20-2024 Refill Madiha Negrete MA [facility] Comment on above: Other insomnia Start: 02-15-2024 End: 02-15-2024 Refill Madiha Negrete MA [facility] Comment on above: Other insomnia Start: 02-10-2024 End: 02-10-2024 Refill Latonya EG Work Phone: [facility] Comment on above: 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, with long-term current use of insulin (CMS/HCC) Essential hypertensi on (CMS/HCC) Start: 01-17-2024 End: 01-17-2024 Office outpatient visit [...] 01-09-2024 End: 01-09-2024 Bamboo flowsheet Eddie Ambrocio CERTIFIED SURGICAL ASSISTANT [facility] Start: 01-09-2024 End: 01-09-2024 Bamboo flowsheet Eddie Ambrocio CERTIFIED SURGICAL ASSISTANT [facility] Start: 01-09-2024 End: 01-09-2024 ambulatory Eddie Tita CERTIFIED SURGICAL ASSISTANT [facility] Comment on above: Muscle spasm of back (Primary Dx); Bilateral hip pain; Acute bilateral low back pain with sciatica, sciatica laterality unspecified; Lumbar spondylosis Start: 01-05-2024 End: 01-05-2024 ambulatory London Crabtree CERTIFIED SURGICAL ASSISTANT [facility] Comment on above: Muscle spasm of back (Primary Dx); Bilateral hip pain; Acute bilateral low back pain with sciatica, sciatica laterality unspecified; Lumbar spondylosis Start: 01-02-2024 End: 01-02-2024 ambulatory JALYN GUAN Not Available Start: 12-29-2023 End: 12-29-2023 ambulatory LONDON CRABTREE Not Available Start: 12-27-2023 End: 12-27-2023 ambulatory JALYN GUAN Not Available Start: 12-26-2023 Assay of hemosiderin , quant London Crabtree CERTIFIED SURGICAL ASSISTANT [facility] Start: 12-26-2023 End: 12-26-2023 ambulatory WILY PRADO Not Available Start: 12-20-2023 End: 12-20-2023 ambulatory LOGAN KAUR Not Available Start: 09-16-2023 End: 09-16-2023 Patient encounter procedure MD Wily Prado Work Phone: [facility] [place] Work Phone: Start: 09-16-2023 End: 09-16-2023 ambulatory MD Wily Prado Work Phone: [facility] Work Phone: Start: 06-28-2023 End: 06-28-2023 ambulatory London Crabtree CERTIFIED SURGICAL ASSISTANT [facility] Comment on above: Acute [...] pain Start: 06-16-2023 End: 06-16-2023 ambulatory Som Sheffield PT Work Phone: [facility] Comment on above: Acute bilateral low back pain with sciatica, sciatica laterality unspecified (Primary Dx); Lumbar spondylosis; Bilateral hip pain Start: 06-16-2023 Bamboo flowsheet Som Ocampo kston PT Work Phone: [facility] Start: 06-16-2023 Bamboo flowsheet Som Rivera Terrence kston PT Work Phone: [facility] Start: 06-16-2023 Telephone encounter Wily Swenson MD Work Phone: [facility] Comment on above: Med Refill ([facility]OL [facility] [place]) Acute bilateral low back pain with bilateral sciatica (Primary Dx) Start: 02-01-2023 ambulatory MD Wily landers Work Phone: [facility] Work Phone: Start: 02-01-2023 Registered Recurring MD Wily Prado Work Phone: [facility] Work Phone: Start: 11-02-2022 End: 11-02-2022 ambulatory MD Wily Prado Work Phone: [facility] Work Phone: Start: 11-02-2022 End: 11-02-2022 Registered Recurring MD Wily Prado Work Phone: [facility] Work Phone: Start: 07-30-2022 End: 07-30-2022 ambulatory MD Wily Prado Work Phone: [facility] Work Phone: Start: 07-30-2022 End: 07-30-2022 Registered Recurring MD [facility] Prado [facility]: Start: 04-26-2022 End: 04-26-2022 ambulatory MD Wily Prado Work Phone: [facility] Work Phone: Start: 04-26-2022 End: 04-26-2022 Registered Recurring MD Wliy Prado [facility] Start: 02-22-2022 End: 02-22-2022 ambulatory MD Wily Prado Work Phone: [facility] Work Phone: Start: 02-22-2022 End: 02-22-2022 Registered Recurring MD Wily Prado [facility] Start: 02-17-2022 End: 02-17-2022 ambulatory UNKNOWN PROVIDER Facility:[facility] Start: 02-17-2022 End: 02-17-2022 Emergency department patient visit [facility] Emergency Triage, Treat and Transport Comment on above: Arrived Start: 01-21-2022 End: 01-21-[address] NATALIA LYN Facility:[facility] Start: 01-20-2022 End: 01-20-[address] MIKIE GARCIA Facility:[facility] Start: 01-20-2022 End: 01-20-2022 Departed Referred MD Wily Prado Work Phone: [facility] [place] Start: 01-15-2022 End: 01-19-2022 ambulatory UNKNOWN PROVIDER Facility:[facility] Start: 01-14-2022 End: 01-14-[address] LOGAN GATES Facility:[facility] Start: 01-12-2022 End: 01-12-2022 Registered Recurring MD Wily Prado Work Phone: [facility] Start: 01-12-2022 Registered Recurring MD Wily Prado Work Phone: [facility] Start: 01-04-2022 End: 01-04-[address] GINGER BROOKS Facility:[facility] Start: 12-24-2021 End: 12-24-2021 ambulatory AUNG ZIMMERMAN Facility:[facility] Start: 11-24-2021 End: 11-24-[address] LOGAN GATES Facility:[facility] Start: 11-13-2021 Encounter for genera l adult medical examination without abnormal findings DR LATONYA JOSEPH [facility] Start: 11-10-2021 End: 11-11-[address] ARIAN [...] outpatient vi sit 15 minutes Mikie West [facility] Vascular Surgery Procedures Date Procedure Procedure Detail Performing Clinician Start: 10-11-2024 Hemoglobin glycosylated a1c Wily Prado MD Work Phone: Start: 09-16-2023 XR pre/post mri xray MD Wily Prado Work Phone: Start: 09-16-2023 MR lumbar spine wo con MD Wily Prado Work Phone: Start: 08-25-2023 History of carotid endarterectomy H/O carotid endarterectomy London Crabtree CERTIFIED SURGICAL ASSISTANT Start: 01-05-2022 Colonoscopy Som Sheffield PT Work [...] Visit [facility] [address] [facility] [[email or web address]] [address] [place] [id number] Wily Prado MD [address] [place] [address] [facility] Start: 10-11-2024 End: 10-11-2025 US.doppler Carotid arteries - bilateral Vascular US carotid artery duplex bilateral Imaging Routine Bilateral carotid bruits Expected: 10/11/2024, Expires: 10/11/2025 [facility] Work Phone: Comment on above: Expected: 10/11/2024 , Expires: 10/11/2025 Start: 05-11-2024 End: 05-11-2024 Clinical Support 05/11/2024 10:00 AM EST Clinical Support [facility] [address] [place] [id number] [facility] Start: 05-10-2024 Urine screening [...] Visit [facility] [address] [facility] [[email or web address]] [address] [place] [address] Wily Prado MD [address] [facility] [address] [place] [address] [facility] Start: 01-15-2024 Influenza vaccination Influenza Vacc ine (#1) [facility] Start: 01-11-2024 End: 01-11-2024 ambulatory 01/11/2024 10:30 AM EDT Treatment [facility] [address] [facility] [[email or web address]] [address] [place] [address] Jalyn Guan, PT [facility] Start: 01-09-2024 End: 01-09-2024 ambulatory [facility] Comment on above: Arrived Start: 12-28-2023 Medicare Annual Well ness (AWV) Medicare Annual Wellness (AWV) [facility] Start: 07-05-2023 End: 07-05-2023 ambulatory 07/05/2023 2:30 PM EST Treatment [facility] [address] [place] [address] London Crabtree, CERTIFIED SURGICAL ASSISTANT [facility] Start: 06-30-2023 End: 06-30-2023 ambulatory [facility] Start: 06-29-2023 Hemoglobin A1c measurement Diabetes: Hemoglobin A1C [facility] Comment on above: Postponed from 03/29 (Other Medical Reasons) Start: 06-28-2023 End: 06-28-2023 ambulatory [facility] Comment on above: Arrived Start: 06-23-2023 End: 06-23-2023 ambulatory [facility] Start: 06-21-2023 End: 06-21-2023 ambulatory 06/21/2023 2:30 PM EST Treatment [facility] [address] [facility] [[email or web address]] [address] [place] [address] Som Sheffield, PT [address] [facility] [address] [place] [address] [facility] Start: 06-16-2023 End: 06-16-2023 ambulatory 06/16/2023 2:00 PM EST Treatment [facility] [address] [facility] [[email or web address] [address] [place] [address] Som Sheffield, PT [address] [facility] [address] [place] [address] Arrived [facility] Comment on above: Arrived Start: 11-22-2022 Screening for malign ant neoplasm of colon FIT-DNA [facility] Start: 10-14-2022 Annual Wellness Visi t (G0439) Annual Wellness Visit (G0439) [facility] Start: 08-30-2022 [facility] Start: 08-23-2022 [facility] Start: 02-28-2022 Glaucoma screening Diabetes: R etinopathy Screening [facility] Start: 02-13-2022 Influenza vaccination Influenza Vacc ine (#1) [facility] Start: 02-04-2022 [facility] Start: 02-02-2022 COVID-19 Vaccine (5 - Booster for Pfizer series) COVID-19 Vaccine (5 - Booster for Pfizer series) [facility] Start: 01-28-2022 [facility] Start: 11-10-2021 Screening for malign ant neoplasm of colon FOB[facility] Start: 11-07-2021 Pneumococcal vaccination Pneum ococcal Vaccine(s) (65+ yrs) (2 - PPSV23 or PCV20) [facility] Start: 01-02-2021 Shingles (RZV) Vacci ne (2 of 2) Shingles (RZV) Vaccine (2 of 2) [facility] Start: 11-14-2020 Screening for malign ant neoplasm of breast Mammography [facility] Start: 07-26-2012 Screening for osteoporosis Bone Densitometry [facility] Start: 07-26-1997 Measurement of occul t blood in single stool specimen FIT [facility] Start: 07-26-1997 Screening for malign ant neoplasm of colon CRC Screening [facility] Start: 07-26-1965 Hepatitis C screening Hepatitis C An tibody [facility] Start: 07-26-1965 Tetanus + diphtheria + acellular pertussis vaccine (product) Tdap Booster [facility] Start: 1945 Screening for malign ant neoplasm of colon [facility] Start: 1947 Screening for malign ant neoplasm of lung Lung Cancer Screening Shared Decision Making [facility] metabo lic 1999 panel - Serum or Plasma [facility] Comprehensive metabo lic 1999 panel - Serum or Plasma [facility] Comprehensive metabo lic 1999 panel - Serum or Plasma [facility] Ferritin [Mass/volum e] in Serum or Plasma [facility] Ferritin [Mass/volum e] in Serum or Plasma [facility] Work Phone: [facility] Immunizations Immunization Date Immunization Notes Care Provider Fa cility 01-06-2024 influenza, high dose seasonal, preservative-free Wily Prado MD Work Phone: [facility] 01-06-2024 influenza virus vaccine, unspecified formulation Wily Prado MD Work Phone: [facility] 06-17-2023 RSV, recombinant, protein subunit RSVpreF, adjuvant reconstitu, 120mcg/0.5mL, PF (Arexvy) Som Sheffield PT Work Phone: [facility] 03-21-2023 Influenza, Seasonal, Quadrivalent, Adjuvanted Som Sheffield PT Work Phone: [facility] 03-21-2023 influenza virus vaccine, unspecified formulation London Crabtree PTA [facility] 03-19-2022 influenza, high dose seasonal, preservative-free Som Sheffield PT Work Phone: [facility] 01-04-2022 diphtheria, tetanus toxoids and pertussis vaccine Et3 [facility] 01-04-2022 tetanus toxoid, redu blake diphtheria toxoid, and acellular pertussis vaccine, adsorbed Som Sheffield PT Work Phone: [facility] 10-30-2021 tetanus toxoid, redu blake diphtheria toxoid, and acellular pertussis vaccine, adsorbed Som Sheffield PT Work Phone: [facility] 04-21-2021 Influenza, seasonal vaccine, quadrivalent, adjuvanted, 0.5mL dose, preservative free (DWY=191) Et3 [facility] 04-21-2021 Seasonal, trivalent, recombinant, injectable influenza vaccine, preservative free Som Sheffield PT Work Phone: [facility] 04-21-2021 influenza virus vaccine, unspecified formulation Et3 [facility] 11-07-2020 pneumococcal conjuga te vaccine, 13 valent Et3 [facility] 11-07-2020 zoster vaccine recombinant Et3 [facility] 07-14-2020 COVID-19 Vaccine Pfi zer - Documentation Purposes Only Mikie West Other [facility] 06-22-2020 COVID-19 Vaccine Pfi zer - Documentation Purposes Only Mikie West Other [facility] 2018 pneumococcal polysaccharide vaccine, 23 valent Mikie West Other [facility] 06-13-2009 novel [id number], preservative-free, injectable Et3 [facility] Payers Date Payer Category Payer Self-pay [id number] 2022 Private Health Insurance [employer] [place] [id number] 2022 Unknown [id number] 1.13.693.2 .[id number] 2012 Medicare [id number]. 1.13.56.2. 7.3.179393.315 1959 Medicare [id number] 2.16.840.1.708062.19 1959 Unknown [id number] 2.16.840.1.188537.19 1947 Unknown [id number] 2.840.1.925272.3.579.2 .593 1945 Unknown [id number] 2.16.840.1.509260.3.579.2 .593 1945 Unknown [id number] 2.16.840.1.641584.3.579.2 .593 1945 Unknown [id number] 2.16.840.1.280103.3.579.2 .593 1945 Unknown [id number] 2.16.840.1.065654.3.579.2 .593 1945 Unknown [id number] 2.16.840.1.234033.3.579.2 .593 1947 Unknown [id number] 2.16.840.1.729289.3.579.2 .593 1947 Unknown [id number] 2.16.840.1.779846.3.579.2 .593 1947 Unknown [id number] 2.16.840.1.812805.3.579.2 .593 1947 Unknown [id number] 2.16.840.1.049272.3.579.2 .593 1947 Unknown [id number] 2.16.840.1.830532.3.579.2 .593 1947 Unknown [id number] 2.16.840.1.842749.3.579.2 .593 1947 Unknown [id number] 2.16.840.1.478549.3.579.2 .732 1945 Unknown [id number] 2.16.840.1.711401.3.579.2 .732 1947 Unknown [id number] 2.16.840.1.746863.3.579.2 .1259 1945 Unknown [id number] 2.16.840.1.691539.3.579.2 .1259 1945 Unknown [id number] 2.16.840.1.121015.3.579.2 .1259 1945 Unknown [id number] 2.16.840.1.511877.3.579.2 .1259 1945 Unknown [id number] 2.16.840.1.895854.3.579.2 .1259 1945 Unknown [id number] 2.16.840.1.330783.3.579.2 .1259 1945 Unknown [id number] 2.16.840.1.796945.3.579.2 .1259 1945 Unknown [id number] 2.16.840.1.658884.3.579.2 .1258 1945 Unknown [id number] 2.16.840.1.259198.3.579.2 .9 1945 Unknown [id number] 2.16.840.1.934836.3.579.2 .1258 1945 Unknown [id number] 2.16.840.1.194385.3.579.2 .1258 1945 Unknown [id number] 2.16.840.1.771972.3.579.2 .1258 1947 Unknown [id number] 2.16.840.1.453961.3.579.2 .9 1945 Unknown [id number] 2.16.840.1.055043.3.579.2 .196 1945 Unknown [id number] 2.16.840.1.352658.3.579.2 .196 Unknown [id number] 2.16.840.1.753138.3.579.2 .531 Social History Date Type Detail Facility Unknown if ever smoked [facility] Other Start: 05-10-2023 End: 10-11-2024 Sex Assigned At [facility] Other Start: 01-12-2022 End: 02-01-2023 Tobacco smoking status IDIS Smoker (finding) [facility] Start: 1945 Sex Assigned At Female [facility] Tobacco smoking stat us IDIS Tobacco smoking consumption unknown [facility] Start: 1945 Sex Assigned At Not on file [facility] Start: 12-27-2022 End: 05-08-2024 Tobacco smoking status IDIS Smokes tobacco daily [facility] History of tobacco use Cigarette Smoker [facility] Start: 12-27-2022 End: 10-11-2024 Cigarettes smoked current (pack per day) - Reported 1.5 [facility] Start: 12-27-2022 End: 05-08-2024 Tobacco use and exposure Smokeless tobacco non-user [facility] Start: 05-10-2023 End: 10-11-2024 Alcohol intake Lifetime non-drinker (finding) [facility] Start: 11-10-2022 Tobacco Comment 11-20 cigs/day [facility] Start: 11-10-2022 Alcohol Comment Caffeine intake: more than [address] [facility] Medical Equipment Procedure Code Equipment Code Equipment Origin al Text Equipment Identifier Dates Endarterectomy, carotid Cardiovascular patch, animal-derived ()[id number] [facility] Start: 10-02-2020 Angioplasty of carotid artery with insertion of stent Bare-metal carotid artery stent ()[id number] [facility] Start: 12-17-2019 USE DIRECTED TWICE A DAY [id number] Start: 12-20-2022 1 each by Other route in the morning and 1 each before bedtime. [id number] USE TO TEST BLOO D SUGAR TWICE DAILY [id number] Start: 06-27-2023 Use as instructed [id number] Start: 05-31-2024 USE INSTRUCTED [id number] Start: 08-20-2024 USE TO TEST BLOO D SUGAR TWICE DAILY [id number] Start: 12-10-2024 Goals Date Patient Goal Desired Activity /State Functional Status Date Assessment Result Facility 10-11-2024 Patient Health [facility] ionnaire 2 item (PHQ-2) [Reported] [facility] Clinical Notes 02-24-2021 to 12-14-2024 Telephone Encounter - LUMA Garcia - 12/14/2024 12:17 PM EDTTelephone Encounter - LUMA Garcia - 12/14/2024 12:17 PM EDTTelephone Encounter - VENANCIO SMALL - 12/14/2024 10:03 AM EDT Note Date & Type Note Facility 12-14-2024 Telephone encount er Note Resent, though it does show that [facility] filled this, hopefully she will not have an issue getting this at [facility] and the other Rx will be cancelled. [facility] 12-14-2024 Miscellaneous Notes Formattin g of this note might be different from the original. Resent, though it does show that [facility] filled this, hopefully she will not have an issue getting this at [facility] and the other Rx will be cancelled. Needs to go to [facility] documented in this encounter [facility] 12-14-2024 Telephone encount er Note Needs to go to [facility] 12-11-2024 Telephone encount er Note OARRS reviewed, Rx sent into patient's pharmacy. [facility] 12-11-2024 Miscellaneous Notes Formattin g of this note might be different from the original. OARRS reviewed, Rx sent into patient's pharmacy. documented in this encounter [facility] 11-19-2024 Telephone encount er Note Amlodipine sent. [facility] 11-19-2024 Miscellaneous Notes Formattin g of this note might be different from the original. Amlodipine sent. documented in this encounter [facility] 11-09-2024 Telephone encount er Note OARRS reviewed, Rx sent into patient's pharmacy. [facility] 11-09-2024 Miscellaneous Notes Formattin g of this note might be different from the original. OARRS reviewed, Rx sent into patient's pharmacy. OV 10/11/24 RF 10/11/24 documented in this encounter [facility] 11-09-2024 Telephone encount er Note OV 10/11/24 RF 10/11/24 [facility] 10-12-2024 Telephone encount er Note See TE from today. Rx will be filled at [facility]. [facility] 10-12-2024 Miscellaneous Notes Formattin g of this note might be different from the original. See TE from today. Rx will be filled at [facility]. Patient need refill on ALPRAZolam (Xanax) 0.5 MG . She asked if that could be sent to [facility] in [place]. documented in this encounter [facility] 10-12-2024 Telephone encount er Note [facility] called, questioning Xanax being sent to [facility]. Advised it was supposed to be filled at [facility], pt did want it filled there, not [facility]. They have a refill on file for her for 30 day supply and will proceed with filling it. They will contact [facility] and let them know that they are filling the Rx for the patient. [facility] 10-12-2024 Miscellaneous Notes Formattin g of this note might be different from the original. [facility] called, questioning Xanax being sent to [facility]. Advised it was supposed to be filled at [facility], pt did want it filled there, not [facility]. They have a refill on file for her for 30 day supply and will proceed with filling it. They will contact [facility] and let them know that they are filling the Rx for the patient. documented in this encounter [facility] 10-11-2024 Telephone encount er Note Patient need refill on ALPRAZolam (Xanax) 0.5 MG . She asked if that could be sent to [facility] in [place]. [facility] 10-11-2024 History of Presen t illness Narrative [...] glucose trend. An LESLEY inhibitor/angiotensin II receptor lahta is being taken. She does not see a kaiawhina kohanga reo.Eye exam is current. Current Outpatient Medications on [...] tablet 3 insulin pen needle (Droplet Pen Cassel) 32G x 4 mm misc USE INSTRUCTED [...] time each day at the same time. [place]-3 Fatty Acids (Fish Oil) 1000 MG capsule delayed-release Take 1 capsule by mouth 1 (one) time each day. omeprazole (PriLOSEC) [address] capsule TAKE 1 CAPSULE EVERY DAY 100 capsule 3 OneTouch Ultra test strip [...] Diagnosis Date AMS (altered mental status) 10/30/2020 [facility] Anemia Arthritis Asthma Breast lump Bronchitis Cancer ([facility]/HCC) cervical Carotid artery stenosis Cataract Chicken pox COPD (chronic obstructive pulmonary disease) ([facility]) Diabetes mellitus ([facility]) Disease of thyroid gland ([facility]/HCC) Emphysema lung ([facility]/HCC) History of being hospitalized 10/30/2020 AMS [facility] Hyperlipemia ([facility]) Hypertension ([facility]) Measles Vascular calcification Past Surgical History: Procedure [...] 04/13/2025) for Diabetes. documented in this encounter [facility] 10-11-2024 Telephone encount er Note Patient has appointment today. [facility] 10-11-2024 Miscellaneous Notes Formattin g of this note might be different from the original. Patient has appointment today. documented in this encounter [facility] 05-11-2024 History of Presen t illness Narrative Pt was here for a BP check documented in this encounter [facility] 05-08-2024 History of Presen t illness Narrative [...] while on medicines. Associated Problem(s): Diabetes mellitus (CMS/HCC) No Tobacco use Follow ADA 1800 [...] time each day at the same time. [place]-3 Fatty Acids (Fish Oil) 1000 MG capsule [...] Diagnosis Date AMS (altered mental status) 10/30/2020 [facility] Anemia Arthritis Asthma (CMS/HCC) Breast lump Bronchitis Cancer ([facility]/H[facility]) cervical Carotid artery stenosis Cataract Chicken pox COPD (chronic obstructive pulmonary disease) ([facility]/HCC) Diabetes mellitus (CMS/HCC) Disease of thyroid gland (CMS/HCC) Emphysema lung ([facility]/HCC) History of being hospitalized 10/30/2020 AMS [facility] Hyperlipemia ([facility]/HCC) Hypertension ([facility]/HCC) Measles Vascular calcification Past Surgical History: Procedure Laterality Date CAROTID ARTERY ANGIOPLASTY 12/17/2019 and stent CAROTID ENDARTERECTOMY Right 2014 CAROTID ENDARTERECTOMY Left 10/02/2020 CHOLECYSTECTOMY 1999 COLONOSCOPY 01/20/2022 normal, EGD, chronic gastritis, Dr. [...] List Items Addressed This Visit Diabetes mellitus ([facility]/HCC) - Primary No Tobacco use Follow ADA [...] long distances while on medicines. Hypertensive emergency ([facility]) Add Norvasc Take all current blood medications If with severe or stroke like symptoms got to ER Other Visit Diagnoses Other insomnia Relevant Medications ALPRAZolam (Xanax) 0.5 MG tablet Follow up in about 3 days (around 05/11/2024) for Hypertension. documented in this encounter [facility] 05-04-2024 Telephone encount er Note [address] [facility] 05-04-2024 Miscellaneous Notes Formattin g of this note might be different from the original. 7 day supply sent. Pt made an appt for tues with johan , but she is needing a refill on her xanax if willing to send in for her please send to [facility] she stated it helps her sleep at night documented in this encounter [facility] 05-04-2024 Telephone encount er Note Pt made an appt for tues with johan , but she is needing a refill on her xanax if willing to send in for her please send to [facility] she stated it helps her sleep at night [facility] 03-20-2024 Telephone encount er Note OARRS reviewed, Rx sent into patient's pharmacy. [facility] 03-20-2024 Miscellaneous Notes Formattin g of this note might be different from the original. OARRS reviewed, Rx sent into patient's pharmacy. documented in this encounter [facility] 02-15-2024 Telephone encount er Note OARRS reviewed, Rx sent into patient's pharmacy. [facility] 02-15-2024 Miscellaneous Notes Formattin g of this note might be different from the original. OARRS reviewed, Rx sent into patient's pharmacy. documented in this encounter [facility] 02-10-2024 Telephone encount er Note Atorvastatin sent. [facility] 02-10-2024 Miscellaneous Notes Formattin g of this note might be different from the original. Atorvastatin sent. documented in this encounter [facility] 02-10-2024 Telephone encount er Note Janumet sent [facility] 02-10-2024 Miscellaneous Notes Formattin g of this note might be different from the original. Janumet sent documented in this encounter [facility] 01-17-2024 History of Presen t illness Narrative [...] time each day at the same time. [place]-3 Fatty Acids (Fish Oil) 1000 MG capsule [...] Diagnosis Date AMS (altered mental status) 10/30/2020 [facility] Anemia Arthritis Asthma ([facility]) Breast lump Bronchitis Cancer ([facility]) cervical Carotid artery stenosis Cataract Chicken pox COPD (chronic obstructive pulmonary disease) ([facility]) Diabetes mellitus ([facility]/HCC) Disease of thyroid gland ([facility]/HCC) Emphysema lung ([facility]) History of being hospitalized 10/30/2020 AMS [facility] Hyperlipemia ([facility]) Hypertension ([facility]) Measles Vascular calcification Past Surgical History: Procedure Laterality Date CAROTID ARTERY ANGIOPLASTY 12/17/2019 and stent CAROTID ENDARTERECTOMY Right 2014 CAROTID ENDARTERECTOMY Left 10/02/2020 CHOLECYSTECTOMY 2000 COLONOSCOPY 01/20/2022 normal, EGD, chronic gastritis, Dr. Trna CT ANGIOGRAM NECK 09/23/2015 CT ANGIOGRAM NECK [...] months (around 04/17/2024). documented in this encounter [facility] 01-11-2024 History of Presen t illness Narrative [...] her feet; denies any recent falls. Precautions: [place] Subjective: Pt states she has been hurting [...] instructed in home exercise program. - met [employer] Goals: To be met in 10 weeks [...] to home program. documented in this encounter [facility] 06-21-2023 History of Presen t illness Narrative [...] Physician Signature: Date: documented in this encounter [facility] 06-16-2023 Telephone encount er Note Requesting refill of Tramadol - not on current med list. [facility] 06-16-2023 Miscellaneous Notes Formattin g of this note might be different from the original. Requesting refill of Tramadol - not on current med list. documented in this encounter [facility] 06-16-2023 History of Presen t illness Narrative [...] Physician Signature: Date: documented in this encounter [facility] 11-02-2022 Progress note Note Date/Time November 02, 2022 10:01[facility] [place] [address] Hem/Onc Follow Up Note - OP Signed Patient: Nuvia Martin MR#: [id number] : 1945 Acct:[id number] Age/Sex: 77 / F Type: REG RCR [...] (Verified 11/02/22 09:45) Diarrhea bacitracin [From Neosporin (ltw-klh-mxspw)] Adverse Reaction (Verified 11/02/22 09:45) Blister contact metal agent Adverse Reaction (Verified 11/02/22 09:45) Rash neomycin [From Neosporin (bvl-que-zxkkt)] Adverse Reaction (Verified 11/02/22 09:45) Blister petrolatum,white [From Petroleum Jelly] Adverse Reaction (Verified 11/02/22 09:45) Blister polymyxin B [From Neosporin (bgu-vei-iuraz)] Adverse Reaction (Verified 11/02/2308:45) Blister Home Medications [...] PO QNOON 12/17/19 [History Confirmed 11/02/22] omega 6-rqr-mqg-fish oil 1,000 mg (120 mg-180 mg) capsule [...] % (Auto) 60.6, Lymph % (Auto) 26.9, [place] % (Auto) 9.5, Eos % (Auto) 1.7, Baso % (Auto) 1.3, Nucleat RBC Rel Count 0.2, Neut # (Auto) 3.8, Lymph # (Auto) 1.7, [place] # (Auto) 0.6, Eos # (Auto) 0.1, [...] for coordination of care (as documented) and vkqr-tl-gvun counseling of patient and/or family. Dictated By: Taylor Tijerina APRN DD/ 1000 Signed By: <Electronically signed by CARMELA Tijerina> 11/02/22 1002 [facility] Work Phone: 1(941) 683-740303-28-2023 Progress note Author Taylor Tijerina [facility] August 10, 2022 11:00am Note Date/Time July 30, 2022 11: 10am [facility] [place] [address] Hem/Onc Follow Up Note - OP Signed Patient: Nuvia Martin MR#: [id number] : 1945 Acct:[id number] Age/Sex: 77 / F Type: REG RCR [...] sat low at 15.4% and ferritin 27.4 [facility] - Medical History Medical History: Medical History [...] (Verified 07/30/22 10:44) Diarrhea bacitracin [From Neosporin (tlk-hqg-cmwly)] Adverse Reaction (Verified 07/30/22 10:44) Blister contact metal agent Adverse Reaction (Verified 07/30/22 10:44) Rash neomycin [From Neosporin (frq-bqp-slcfi)] Adverse Reaction (Verified 07/30/22 10:44) Blister petrolatum,white [From Petroleum Jelly] Adverse Reaction (Verified 07/30/22 10:44) Blister polymyxin B [From Neosporin (gbe-txv-ydmas)] Adverse Reaction (Verified 07/30/2309:44) Blister Home Medications [...] PO QNOON 12/17/19 [History Confirmed 07/30/22] omega 1-plm-nvt-fish oil 1,000 mg (120 mg-180 mg) capsule [...] for coordination of care (as documented) and gjxs-va-iovh counseling of patient and/or family. Dictated By: Taylor Tijerina APRN DD/ 1110 Signed By: <Electronically signed by CARMELA Tijerina> 08/10/22 1100 [facility] Work Phone: 1(464) 307-786212-12-2022 Progress note Author Emily Degroot [facility] April 26, 2022 3:23pm Note Date/Time April 26, 2022 3:16pm [facility] at [address] [address] Hem/Onc Follow Up Note - OP Signed Patient: Nuvia Martin MR#: [id number] : 1945 Acct:[id number] Age/Sex: 76 / F Type: REG RCR [...] history of asthma, hives, eczema or rhinitis. [facility] - Medical History Medical History: Medical History [...] (Verified 04/26/22 09:36) Diarrhea bacitracin [From Neosporin (ojd-vrj-tsggz)] Adverse Reaction (Verified 04/26/22 09:36) Blister contact metal agent Adverse Reaction (Verified 04/26/22 09:36) Rash neomycin [From Neosporin (zop-rvt-ubkof)] Adverse Reaction (Verified 04/26/22 09:36) Blister petrolatum,white [From Petroleum Jelly] Adverse Reaction (Verified 04/26/22 09:36) Blister polymyxin B [From Neosporin (kec-qfs-udxel)] Adverse Reaction (Verified 04/26/2209:36) Blister Home Medications [...] PO QNOON 12/17/19 [History Confirmed 04/26/22] omega 6-akj-sfo-fish oil 1,000 mg (120 mg-180 mg) capsule [...] % (Auto) 68.2, Lymph % (Auto) 20.8, [place] % (Auto) 6.9, Eos % (Auto) 3.3, Baso % (Auto) 0.8, Nucleat RBC Rel Count 0.1, Neut # (Auto) 4.7, Lymph # (Auto) 1.4, [place] # (Auto) 0.5, Eos # (Auto) 0.2, [...] for coordination of care (as documented) and xqwj-pd-qpng counseling of patient and/or family. Dictated By: Emily Degroot APRN DD/ 151 Signed By: <Electronically signed by CARMELA Degroot> 04/26/22 1523 [facility] Work Phone: 1([phone]) 806-112510-10-2022 Progress note Author Marisabel Noel [facility] February 22, 2022 12:49pm Note Date/Time February 22, 2022 1 2:45pm [facility] [place] [address] Hem/Onc Follow Up Note - OP Signed Patient: Nuvia Martin MR#: [id number] : 1945 Acct:[id number] Age/Sex: 76 / F Type: REG RCR [...] history of asthma, hives, eczema or rhinitis. [facility] - Medical History Medical History: Medical History [...] (Verified 02/22/22 11:05) Diarrhea bacitracin [From Neosporin (tcr-icy-xwzxu)] Adverse Reaction (Verified 02/22/22 11:05) Blister contact metal agent Adverse Reaction (Verified 02/22/22 11:05) Rash neomycin [From Neosporin (qtd-sdl-kptjh)] Adverse Reaction (Verified 02/22/22 11:05) Blister petrolatum,white [From Petroleum Jelly] Adverse Reaction (Verified 02/22/22 11:05) Blister polymyxin B [From Neosporin (xfq-wze-nakny)] Adverse Reaction (Verified 02/22/2211:05) Blister Home Medications [...] PO QNOON 12/17/19 [History Confirmed 02/22/22] omega 8-zie-ejh-fish oil 1,000 mg (120 mg-180 mg) capsule [...] % (Auto) N/A, Lymph % (Auto) N/A, [place] % (Auto) N/A, Eos % (Auto) N/A,Baso % (Auto) N/A, Neut # (Auto) N/A, Lymph # (Auto) N/A, [place] # (Auto) N/A, Eos# (Auto) N/A, Baso [...] for coordination of care (as documented) and xrsn-bi-eenf counseling of patient and/or family. Dictated By: Marisabel Noel MD DD/ 42 Signed By: <Electronically signed by Marisabel Noel MD> 02/22/22 1249 [facility] Work Phone: 1(132) 893-795510-05-2022 History of Present illness Narrative* Cassidy Julio MD - 02/17/2022 9:17 AM EDT Images from the original note were not included. EMERGENCY TRIAGE, TREAT AND TRANSPORT (ET3) DOCUMENTATION OF TELEHEALTH VISIT Date / Time: 02/17/2022916 Name: Nuvia Martin : 1945 SSN: [id number] EMS Agency: [facility] [x] Verbal consent obtained [] [...] by: Cassidy Julio MD documented in this [id number] Consult note Author Maciel Sofia [facility] January 19, 2022 2:52pm Note Date/Time January 12, 2022 12 :54pm [facility] [place] [address] Hem/Onc Consult Note - OP Signed Patient: Nuvia Martin MR#: [id number] : 1945 Acct:[id number] Age/Sex: 76 / F Type: REG RCR [...] Unable to locate recent iron studies from [facility]. She will have a colonoscopy and [...] fevers, chills, sweats, or unintentional weight loss. [facility] - Medical History Medical History: Medical History [...] (Verified 01/12/22 11:14) Diarrhea bacitracin [From Neosporin (fjy-fqd-qrioh)] Adverse Reaction (Verified 01/12/22 11:14) Blister contact metal agent Adverse Reaction (Verified 01/12/22 11:14) Rash neomycin [From Neosporin (umz-eaq-sgosq)] Adverse Reaction (Verified 01/12/22 11:14) Blister petrolatum,white [From Petroleum Jelly] Adverse Reaction (Verified 01/12/22 11:14) Blister polymyxin B [From Neosporin (cvp-zmm-lxplq)] Adverse Reaction (Verified 01/12/2211:14) Blister Home Medications [...] PO QNOON 12/17/19 [History Confirmed 01/12/22] omega 9-fhl-mum-fish oil 1,000 mg (120 mg-180 mg) capsule [...] for coordination of care (as documented) and mfyf-cs-wjog counseling of patient and/or family. Dictated By: Taylor Tijerina APRN DD/ 1241 Signed By: <Electronically signed by CARMELA Tijerina> 01/12/22 1403 <Electronically signed by Maciel Sofia II, DO> 01/19/22 1452 [facility] Work Phone: 1(194) 957-610708-22-2022 NotePROCEDURE: XR ELBOW RT 2V HISTORY: Bone injury ; acute elbow pain after falling COMPARISON: None. FINDINGS: BONES:No fracture, acute abnormality, or significant arthropathy. SOFT TISSUES:Soft tissue swelling posterior to the proximal forearm. EFFUSION:None visible. OTHER: Negative. IMPRESSION: 1. No acute bone abnormality or joint effusion. Electronically authenticated by: GINGER BROOKS Date: 2022-01-04 13:57[facility]10-12-2021 Evaluation note* Encounter Date Diagnosis Assessment [...] readiness for smoking cessation at this time. [employer] Other Evaluation note* Diagnosis Onset Date Resolution Status Iron deficiency anemia acute [facility] Work Phone: Evaluation note* Diagnosis Fall, [...] region and thigh documented in this encounter [facility] HealthcareEvaluation note* Diagnosis Acute bilateral low back pain with sciatica, sciatica laterality unspecified- Primary Lumbar spondylosis Lumbosacral spondylosis without myelopathy Bilateral hip pain Pain in joint, pelvic region and thigh documented in this encounter [facility] HealthcareEvaluation noteNo assessment information [facility]Tr[facility] Work Phone: Evaluation note* Diagnosis Other insomnia documented in this encounter [facility] HealthcareEvaluation note* Diagnosis Acute bilateral low back [...] subsequent Diabetes mellitus with peripheral vascular disease ([facility]) Other insomnia documented in this encounter [facility] HealthcareEvaluation note* Diagnosis Acute bilateral low back [...] artery without mention of cerebral infarction Claustrophobia ([facility]) Other isolated or specific phobias Type 2 diabetes mellitus with diabetic peripheral angiopathy without gangrene, without long-term current use of insulin ([facility]) Hypervitaminosis B6- Primary Other hyperalimentation Acute bilateral low back pain with bilateral sciatica Lumbar adjacent segment disease with spondylolisthesis Lumbar spondylosis Lumbosacral spondylosis without myelopathy Stenosis of carotid artery, unspecified laterality Lumbar paraspinal muscle spasm Other symptoms referable to back Carpal tunnel syndrome, bilateral Carpal tunnel syndrome Migraine without aura and without status migrainosus, not intractable ([facility]) OLIVA (obstructive sleep apnea) Obstructive sleep apnea (adult) (pediatric) Routine general medical examination at health care facility- Primary Routine general medical examination at a health care facility Type 2 diabetes mellitus with diabetic peripheral angiopathy without gangrene, without long-term current use of insulin ([facility]) Peripheral vascular disease, unspecified (CMS/HCC) Peripheral vascular disease, unspecified Heart failure, unspecified (CMS/HCC) Heart failure, unspecified Epilepsy, unspecified, not intractable, without status epilepticus ([facility]) Other secondary pulmonary hypertension (CMS/HCC) Atherosclerosis of aorta ([facility]) Atherosclerosis of aorta Medicare annual wellness visit, subsequent Diabetes mellitus with peripheral vascular disease ([facility]) Other insomnia documented in this encounter [facility] [...] spondylosis without myelopathy documented in this encounter [facility] HealthcareEvaluation note* Diagnosis Lumbar spondylosis- Primary Lumbosacral spondylosis without myelopathy Other insomnia 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 claudication documented in this encounter [facility] HealthcareEvaluation note* Diagnosis Type 2 diabetes mellitus with diabetic polyneuropathy, with long-term current use of insulin (CMS/HCC) documented in this encounter [facility] HealthcareEvaluation note* Diagnosis Essential hypertension (CMS/HCC) Unspecified essential hypertension documented in this encounter [facility] HealthcareEvaluation note* Diagnosis Acute bilateral low back [...] Unspecified essential hypertension Other insomnia Hypertensive emergency ([facility]) documented in this encounter [facility] HealthcareEvaluation note* Diagnosis Acute bilateral low back [...] Unspecified essential hypertension documented in this encounter [facility] HealthcareEvaluation note* Diagnosis Acute bilateral low back [...] artery without mention of cerebral infarction Claustrophobia ([facility]) Other isolated or specific phobias Type 2 [...] aura and without status migrainosus, not intractable ([facility]) OLIVA (obstructive sleep apnea) Obstructive sleep apnea [...] secondary pulmonary hypertension (CMS/HCC) Atherosclerosis of aorta ([facility]) Atherosclerosis of aorta Medicare annual wellness visit, subsequent Diabetes mellitus with peripheral vascular disease ([facility]) Type 2 diabetes mellitus with diabetic polyneuropathy, with long-term current use of insulin (CMS/HCC)- Primary Mixed hyperlipidemia (CMS/HCC) Mixed hyperlipidemia Agitation states as acute reaction to exceptional (gross) stress Predominant psychomotor disturbance as reaction to stress Essential hypertension (CMS/HCC) Unspecified essential hypertension Other insomnia Hypertensive emergency ([facility]) Other insomnia documented in this encounter [facility] HealthcareEvaluation note* Diagnosis Acute bilateral low back pain with sciatica, sciatica laterality unspecified- Primary Type 2 diabetes mellitus with diabetic polyneuropathy, with long-term current use of insulin (/HCC) Lumbar spondylosis Lumbosacral spondylosis without myelopathy Lumbar adjacent segment disease with spondylolisthesis- Primary Acute bilateral low back pain with bilateral sciatica Type 2 diabetes mellitus with diabetic polyneuropathy, with long-term current use of insulin (/HCC) Bilateral carotid artery stenosis Occlusion and stenosis of carotid artery without mention of cerebral infarction Claustrophobia (/) Other isolated or specific phobias Type 2 diabetes mellitus with diabetic peripheral angiopathy without gangrene, without long-term current use of insulin (/) Hypervitaminosis B6- Primary Other hyperalimentation Acute bilateral [...] polyneuropathy, with long-term current use of insulin (/HCC)- Primary Mixed hyperlipidemia (CMS/HCC) Mixed hyperlipidemia Agitation states as acute reaction to exceptional (gross) stress Predominant psychomotor disturbance as reaction to stress Essential hypertension (CMS/HCC) Unspecified essential hypertension Other insomnia Hypertensive emergency ([facility]) Other insomnia documented in this encounter [facility]Evaluation note* Diagnosis Acute bilateral low back pain with sciatica, sciatica laterality unspecified- Primary Type 2 diabetes mellitus with diabetic polyneuropathy, with long-term current use of insulin (CMS/[facility]) Lumbar spondylosis Lumbosacral spondylosis without myelopathy Lumbar adjacent segment disease with spondylolisthesis- Primary Acute bilateral low back pain with bilateral sciatica Type 2 diabetes mellitus with diabetic polyneuropathy, with long-term current use of insulin (CMS/HCC) Bilateral carotid artery stenosis Occlusion and stenosis of carotid artery without mention of cerebral infarction Claustrophobia ([facility]) Other isolated or specific phobias Type 2 diabetes mellitus with diabetic peripheral angiopathy without gangrene, without long-term current use of insulin (CMS/[facility]) Hypervitaminosis B6- Primary Other hyperalimentation Acute bilateral low back pain with bilateral sciatica Lumbar adjacent segment disease with spondylolisthesis Lumbar spondylosis Lumbosacral spondylosis without myelopathy Stenosis of carotid artery, unspecified laterality Lumbar paraspinal muscle spasm Other symptoms referable to back Carpal tunnel syndrome, bilateral Carpal tunnel syndrome Migraine without aura and without status migrainosus, not intractable ([facility]) OLIVA (obstructive sleep apnea) Obstructive sleep apnea (adult) (pediatric) Routine general medical examination at health care facility- Primary Routine general medical examination at a health care facility Type 2 diabetes mellitus with diabetic peripheral angiopathy without gangrene, without long-term current use of insulin ([facility]) Peripheral vascular disease, unspecified (CMS/HCC) Peripheral vascular disease, unspecified Heart failure, unspecified (CMS/HCC) Heart failure, unspecified Epilepsy, unspecified, not intractable, without status epilepticus Other secondary pulmonary hypertension Atherosclerosis of aorta ([facility]) Atherosclerosis of aorta Medicare annual wellness visit, subsequent Diabetes mellitus with peripheral vascular disease ([facility]) Type 2 diabetes mellitus with diabetic polyneuropathy, with long-term current use of insulin ([facility])- Primary Mixed hyperlipidemia (CMS/[facility]) Mixed hyperlipidemia Agitation states as acute reaction to exceptional (gross) stress Predominant psychomotor disturbance as reaction to stress Essential hypertension (CMS/HCC) Unspecified essential hypertension Other insomnia Hypertensive emergency (CMS/HCC) Diabetes mellitus with peripheral vascular disease (CMS/HCC)- Primary Epilepsy, unspecified, not intractable, without status epilepticus Other secondary pulmonary hypertension Heart failure, unspecified (CMS/HCC) Heart failure, unspecified Benign hypertension (CMS/HCC) Essential hypertension, benign Grade II diastolic dysfunction Type 2 diabetes mellitus with diabetic polyneuropathy, with long-term current use of insulin (CMS/HCC) Bilateral carotid bruits documented in this encounter [facility] HealthcareEvaluation note* Diagnosis Acute bilateral low back [...] Unspecified essential hypertension documented in this encounter [facility] HealthcareEvaluation note* Diagnosis Acute bilateral low back [...] bruits Other insomnia documented in this encounter [facility] HealthcareEvaluation note* Diagnosis Acute bilateral low back [...] History pgeisert Hospitalization History ACUTE DELIRIUM; 10/02/20 [employer] Other Progress note Author Taylor Lilliana [facility] November 02, 2022 10:02am Note Date/Time November 02, 2022 10:0 1am [facility] [place] [address] Hem/Onc Follow Up Note - OP Signed Patient: Nuvia Martin MR#: [id number] : 1945 Acct:[id number] Age/Sex: 77 / F Type: REG RCR [...] IV x 2 doses: 01/28/2022 and 02/04/2022 [facility] - Medical History Medical History: Medical History [...] (Verified 11/02/22 09:45) Diarrhea bacitracin [From Neosporin (euv-fgx-cdygr)] Adverse Reaction (Verified 11/02/22 09:45) Blister contact metal agent Adverse Reaction (Verified 11/02/22 09:45) Rash neomycin [From Neosporin (hxc-wux-msadq)] Adverse Reaction (Verified 11/02/22 09:45) Blister petrolatum,white [From Petroleum Jelly] Adverse Reaction (Verified 11/02/22 09:45) Blister polymyxin B [From Neosporin (pfc-ekn-vcxfj)] Adverse Reaction (Verified 11/02/2308:45) Blister Home Medications [...] PO QNOON 12/17/19 [History Confirmed 11/02/22] omega 9-eqj-sjn-fish oil 1,000 mg (120 mg-180 mg) capsule [...] % (Auto) 60.6, Lymph % (Auto) 26.9, [place] % (Auto) 9.5, Eos % (Auto) 1.7, Baso % (Auto) 1.3, Nucleat RBC Rel Count 0.2, Neut # (Auto) 3.8, Lymph # (Auto) 1.7, [place] # (Auto) 0.6, Eos # (Auto) 0.1, [...] for coordination of care (as documented) and rtfm-fa-ondc counseling of patient and/or family. Dictated By: Taylor Tijerina APRN DD/ 1000 Signed By: <Electronically signed by CARMELA Tijerina> 11/02/22 1002 [facility] Work Phone: Progress note Author Taylor Tijerina [facility] February 01, 2023 11:23am Note Date/Time February 01, 2023 11:04am [facility] [place] [address] Hem/Onc Follow Up Note - OP Signed Patient: Nuvia Martin MR#: [id number] : 1945 Acct:[id number] Age/Sex: 77 / F Type: REG RCR [...] for coordination of care (as documented) and jghn-la-dqrd counseling of patient and/or family. [facility] - Medical History Medical History: Medical History [...] % (Auto) 61.7, Lymph % (Auto) 26.2, [place] % (Auto) 9.2, Eos % (Auto) 2.0, Baso % (Auto) 0.9, Nucleat RBC Rel Count 0.1, Neut # (Auto) 4.2, Lymph # (Auto) 1.8, [place] # (Auto) 0.6, Eos # (Auto) 0.1, Baso # (Auto) 0.1 - Home Medications and Allergies Allergies/Adverse Reactions: Allergies cimetidine [From Tagamet] Allergy (Verified 02/01/23 10:56) Diarrhea bacitracin [From Neosporin (ciz-ibf-cdlud)] Adverse Reaction (Verified 02/01/23 10:56) Blister contact metal agent Adverse Reaction (Verified 02/01/23 10:56) Rash neomycin [From Neosporin (nro-spd-cixnt)] Adverse Reaction (Verified 02/01/23 10:56) Blister petrolatum,white [From Petroleum Jelly] Adverse Reaction (Verified 02/01/23 10:56) Blister polymyxin B [From Neosporin (ynq-ncx-rilfn)] Adverse Reaction (Verified 02/01/2310:56) Blister Home Medications: [...] PO QNOON 12/17/19 [History Confirmed 02/01/23] omega 4-mzg-kwh-fish oil 1,000 mg (120 mg-180 mg) capsule [...] <Electronically signed by CARMELA Tijerina> 02/01/23 1123 [facility] Work Phone: Reason for referral (narrative)* Consultation (Routine) - Pending Review Specialty Diagnoses / Procedures Referred By David t Referred To Contact Pain Medicine Diagnoses Lumbar spondylosis 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 claudication Procedures [place] OFFICE/OUTPATIENT [facility] 60 MINUTES Wily Prado MD [address] [address] Danitza Murray MD [address] [place] [address] Referral ID Status Reason Start Date Expiration Date Visits Requested Visits Authorized [id number] Pending Review Specialty Services Required 01/17/2024 07/15/2024 1 1 [facility] Summary Purpose Family History No Family History [...] disease Unknown Unknown mother Unknown Advance Directives No Advanced Directives Records [...] section and content) DATE CREATED AUTHOR 10/04/2021 [facility] dical Specialist DATE CREATED AUTHOR AUTHOR'S ORGANIZ ATION 01/25/2022 [facility] DATE CREATED AUTHOR AUTHOR'S ORGANIZ ATION 02/23/2022 [facility] DATE CREATED AUTHOR AUTHOR'S ORGANIZ ATION 03/09/2024 [facility] DATE CREATED AUTHOR AUTHOR'S ORGANIZ ATION 05/13/2024 [facility] DATE CREATED AUTHOR AUTHOR'S ORGANIZ ATION 10/23/2024 [facility] dical Specialists EPIC DATE CREATED AUTHOR AUTHOR'S ORGANIZ ATION 01/02/2025 [facility] REASON FOR VISIT (unrecogniz ed section and content) Reason Comments Fall Reason Onset Date Comments Med Refill 06/16/2023 [facility] [place] Specialty Diagnoses / Procedures Referred By Contac t Referred To Contact Physical Therapy Diagnoses Acute bilateral low back pain with sciatica, sciatica laterality unspecified Lumbar spondylosis Procedures [place] OFFICE/OUTPATIENT NEW [facility] 60 MINUTES Wily Prado MD 112 [facility] [address] [place] [address] Som Sheffield, PAVEL [address] [facility] [address] [place] [address] Referral ID Status Reason Start Date Expiration Date Visits Requested Visits Authorized [id number] Authorized Specialty Services Required 3 11/06/2023 10 10 Reason Onset Date Comments Med Refill 02/15/2024 Reason Onset Date Comments Med Refill 03/20/2024 Reason Onset Date Comments Med Refill 03/26/2024 Specialty Diagnoses / Procedures Referred By Contac t Referred To Contact Physical Therapy Diagnoses Muscle spasm of back lumbar paraspinal muscle spasms Procedures consult and treat Logan Kaur MD [address] [facility] [address] [place] [address] Jalyn Guan PT Referral ID Status Reason Start Date Expiration Date Visits Requested Visits Authorized [id number] Authorized Consult and Treat 12/20/2023 06/17/2024 15 [...] Wily Prado MD Primary Care Provider Active Team Status: Inactive Member Role Status Dates Wily Prado MD Primary Care Provide r, Attending Provider Active Start: September 16, 2023 End: September 16, 2023 Team Status: Active Member Role Status Dates Wily Prado MD Primary Care Provider, Referring Pro vider Active Narcisarj Tijerina APRN Attending Provider Mika tillman Team Status: Inactive Member Role Status Dates Wily Prado MD Primary Care Provider Active Jesse Tran MD Attending Provider Active Seismograph Helper Relationship Specialty Start Date End Date Wily Prado MD [address] [place] [address] PCP - ACO Reach 10/07/22 Wily Prado MD [address] [facility] [address] [place] [address] PCP - General Family Medicine 10/28/22 Seismograph Helper Relationship Specialty Start Date End Date Wily Prado MD [address] [place] [address] PCP - ACO Reach 10/07/22 Wily Prado MD [address] [facility] [address] [place] [address] PCP - General Family Medicine 10/28/22 Seismograph Helper Relationship Specialty Start Date End Date Wily Prado MD [address] [place] [address] PCP - ACO Reach 10/07/22 Wily Prado MD [address] [place] [address] PCP - General Family Medicine 10/28/22 Seismograph Helper Relationship Specialty Start Date End Date Wily Prado MD [address] [place] [address] PCP - ACO Reach 10/07/22 Wily Prado MD [address] [place] [address] PCP - General Family Medicine 10/28/22 Seismograph Helper Relationship Specialty Start Date End Date Wily Prado MD [address] [place] [address] PCP - ACO Reach 10/07/22 Wily Prado MD [address] [facility] [address] [place] [address] PCP - General Family Medicine 10/28/22 Seismograph Helper Relationship Specialty Start Date End Date Wily Prado MD [address] [facility] [address] [place] [address] PCP - ACO Reach 10/07/22 Wily Prado MD [address] [facility] [address] [place] [address] PCP - General Family Medicine 10/28/22 Seismograph Helper Relationship Specialty Start Date End Date Wily Prado MD [address] [facility] [address] [place] [address] PCP - ACO Reach 10/07/22 Wily Prado MD [address] [facility] [address] [place] [address] PCP - General Family Medicine 10/28/22 Seismograph Helper Relationship Specialty Start Date End Date Wily Prado MD [address] [facility] [address] [place] [address] PCP - ACO Reach 10/07/22 Wily Prado MD [address] [place] [address] PCP - General Family Medicine 10/28/22 Seismograph Helper Relationship Specialty Start Date End Date Wily Prado MD [address] [place] [address] PCP - ACO Reach 10/07/22 Wily Prado MD [address] [place] [address] PCP - General Family Medicine 10/28/22 Seismograph Helper Relationship Specialty Start Date End Date Wily Prado MD [address] [place] [address] PCP - ACO Reach 10/07/22 Wily Prado MD [address] [place] [address] PCP - General Family Medicine 10/28/22 Seismograph Helper Relationship Specialty Start Date End Date Wily Prado MD [address] [place] [address] PCP - ACO Reach 10/07/22 Wily Prado MD [address] [place] [address] PCP - General Family Medicine 10/28/22 Seismograph Helper Relationship Specialty Start Date End Date Wily Prado MD [address] [place] [address] PCP - ACO Reach 10/07/22 Wily Prado MD [address] [place] [address] PCP - General Family Medicine 10/28/22 Seismograph Helper Relationship Specialty Start Date End Date Wily Prado MD [address] [place] [address] PCP - ACO Reach 10/07/22 Wily Prado MD [address] [place] [address] PCP - General Family Medicine 10/28/22 Seismograph Helper Relationship Specialty Start Date End Date Wily Prado MD [address] [place] [address] PCP - ACO Reach 10/07/22 Wily Prado MD [address] [place] [address] PCP - General Family Medicine 10/28/22 Seismograph Helper Relationship Specialty Start Date End Date Wily Prado MD [address] [place] [address] PCP - ACO Reach 10/07/22 Wily Prado MD [address] [place] [address] PCP - General Family Medicine 10/28/22 Seismograph Helper Relationship Specialty Start Date End Date Wily Prdao MD [address] [place] [address] PCP - ACO Reach 10/07/22 Wily Prado MD [address] [place] [address] PCP - General Family Medicine 10/28/22 Seismograph Helper Relationship Specialty Start Date End Date Wily Prado MD [address] [place] [address] PCP - ACO Reach 10/07/22 Wily Prado MD [address] [place] [address] PCP - General Family Medicine 10/28/22 Seismograph Helper Relationship Specialty Start Date End Date Wily Prado MD [address] [place] [address] PCP - ACO Reach 10/07/22 Wily Prado MD [address] [place] [address] PCP - General Family Medicine 10/28/22 Seismograph Helper Relationship Specialty Start Date End Date Wily Prado MD [address] [place] [address] PCP - ACO Reach 10/07/22 Wily Prado MD [address] [facility] [address] [place] [address] PCP - General Family Medicine 10/28/22 Seismograph Helper Relationship Specialty Start Date End Date Wily Prado MD [address] [place] [address] PCP - ACO Reach 10/07/22 Wily Prado MD [address] [facility] [address] [place] [address] PCP - General Family Medicine 10/28/22 Seismograph Helper Relationship Specialty Start Date End Date Wily Prado MD [address] [place] [address] PCP - ACO Reach 10/07/22 Wily Prado MD [address] [place] [address] PCP - General Family Medicine 10/28/22 Seismograph Helper Relationship Specialty Start Date End Date Wily Prado MD [address] [place] [address] PCP - ACO Reach 10/07/22 Wily Prado MD [address] [facility] [address] [place] [address] PCP - General Family Medicine 10/28/22 Seismograph Helper Relationship Specialty Start Date End Date Wily Prado MD [address] [facility] [address] [place] [address] PCP - ACO Reach 10/07/22 Wily Prado MD [address] [facility] [address] [place] [address] PCP - General Family Medicine 10/28/22 Goals [...] BE BASED ON THE PRIMARY CLINICAL RECORDS. [facility] [employer] provides no warranty or guarantee of the accuracy or completeness of information in this document.
[2025-01-07 08:41] VITALS: BP 188/69; PULSE 70; TEMP 36; O2SAT 98
[2025-01-07 09:04] VITALS: BP 183/85; PULSE 68; O2SAT 95
[2025-01-07 09:06] VITALS: BP 210/82; PULSE 98; O2SAT 96
[2025-01-07] MEDS: 0.9 % SODIUM CHLORIDE 10 ML SYRINGE - SALINE FLUSH INJ (09:08)
[2025-01-07] MEDS: BUPIVACAINE HCL 0.25% PF 25 MG/10 ML VIAL INJ (09:08)
[2025-01-07] MEDS: IOHEXOL 240 MG/ML - 10 ML VIAL 24 MG INJ (09:08)
--- NOTE | 2025-01-07 09:08 | W.PM.PROCNOT ---
Date of procedure: 01/07/25 Pre-op diagnosis: Pain due to lumbar stenosis with neurogenic claudication Post-op diagnosis: same as pre-op Procedure: Procedure: Bilateral L4-5 transforaminal epidural steroid injection Medications: Bupivacaine 0.25% 2cc, lidocaine 2% 1cc, depomedrol 80mg The patient was seen and examined in the preoperative holding area.? Informed consent was obtained and placed on the chart.? Patient was brought to the medical procedure unit and placed in the prone position where a timeout was completed verifying the correct patient, procedure site, position, and planned special equipment using sterile aseptic technique.? Under direct fluoroscopic visualization a 25-gauge Quincke tipped spinal needle was advanced at level left L4-5 to the designated neural foramen where contrast dye was injected to show adequate spread.? There was no evidence of vascular or adverse uptake.? Epidural spread was appreciated.? The above-mentioned injectate was then placed in a 1.5 mL aliquot preceded by negative aspiration.? The needle was removed. The same procedure, at the same level, was completed on the opposite side. ? Patient was taken to the postprocedural recovery area and monitored for an appropriate length of time before found suitable for discharge in the accompaniment of a responsible adult. Anesthesia: Local Surgeon: Danitza Murray Pathology: none sent Condition: stable Disposition: no change
[2025-01-07] MEDS: LIDOCAINE HCL 2% 400 MG/20 ML MDV 3 ML INJ (09:09)
[2025-01-07] MEDS: METHYLPREDNISOLONE ACETATE 80 MG/ML VIAL INJ (09:09)
== END 2025-01-07 09:13 | disposition home or self-care (01) ==
PROVIDERS: PCP Family Medicine; Visit Provider Anesthesiology
DX: M48.062 Spinal stenosis, lumbar region with neurogenic claudication (principal)
CPT/HCPCS: 36415; 64483; J0665; J1010; Q9966

== ENCOUNTER 2025-01-17 14:13 | Outpatient (OUT) | payer MEDICARE, SELFPAY ==
--- OUTSIDE RECORDS SUMMARY | 2025-01-17 14:27 | XMS_ITS | CCD ---
Author Organization [facility] Inform ion Partnership [facility] Care Team Providers Care Production Planner Name Role Phone Mikie West Unavailable MD Wily Prado Primary Care Provider MD Wily Prado Referring Provider [phone] CARMELA Tijerina Attending Provider MD Wily Prado Primary Care Provider [phone] MD Wily Prado Referring Provider [phone] CARMELA Tijerina Attending Provider MD Jesse Tran Attending Provider [phone] TODD, DR GINGER Hurley Consulting Unavailable PAY, [...] Unavailable MD Wily Prado Primary Care Provider [phone] MD Wily Prado Referring Provider [phone] CARMELA Tijerina Attending Provider PROVIDER, UNKNOWN Admitting Unavailable PROVIDER, UNKNOWN Attending Unavailable PROVIDER, UNKNOWN Admitting Unavailable PROVIDER, UNKNOWN Attending Unavailable Unavailable Primary Care Provider UnavailMD Wily Zhang Primary Care Provider [phone] MD Wily Prado Referring Provider CARMELA Tijerina Attending Provider MD Wily Prado Primary Care Provider MD Wily Prado Referring Provider CARMELA Tijerina Attending Provider MD Wily Prado Primary Care Provider MD Wily Prado Referring Provider CARMELA Tijerina Attending Provider MD Wily Prado Primary Care Provider MD Wily Prado Referring Provider [phone] ProsperfeleciaFITO vannN Narcisa Attending Provider Wily Prado MD Unavailable Wily Prado MD Primary Care Provider [phone] MD Wily Prado Primary Care Provider [phone] MD Wily Prado Attending Provider Wily Prado [...] Unavailable WILY PRADO Attending Unavailable Trevor HERNANDEZ, Andyajaira Egan Attending Unavailable Gileyla HERNANDEZ, Andrius Egan Attending Unavailable Gileyla HERNANDEZ, Danitza Egan Attending Unavailable Allergies Allergy Classification Reported Allergen(s) Allergy Type Date of Onset Reaction(s) Facility (1 source) Bacitracin / Neomycin / Polymyxin B Drug Allergy Unknown [facility] Other (1 source) Cimetidine Drug Allergy Unknown [facility] Other (20 sources) Bacitracin; Translations: [bacitracin] Drug Allergy 2 [facility] (20 sources) Cimetidine; Translations: [cimetidine] Drug Allergy 2 [facility] (20 sources) Neomycin; Translations: [neomycin] Drug Allergy 2 [facility] (10 sources) contact metal agent; Translations: [contact metal agent] Propensity to adverse reactions 2 [facility] (11 sources) petrolatum,whit e; Translations: [petrolatum,whi te] Propensity to adverse reactions 2 [facility] (20 sources) polymyxin B; Translations: [polymyxin B] Propensity to adverse reactions 2 [facility] (1 source) Bacitracin / Neomycin / Polymyxin B Drug Allergy 5 [facility] (1 source) Cimetidine Drug Allergy 5 [facility] (20 sources) Bacitracin / Polymyxin B Drug Allergy 3 Unknown [facility] Work Phone: (20 sources) Petrolatum Drug Allergy 3 Unknown [facility] Medications Current Medications Medication Drug Class(es) Dates Sig (Normalized) Sig (Original) [id number] 200 actuat albuterol 0.09 mg/actuat metered dose [...] 1000 mg by mouth once daily [place] Oil Active 1000 MG PO every day at noon December 17, 2019 12:00am take 1 capsule by mouth once alma delia ly [place] Oil 1000 MG 1 capsule Orally one [...] bedtime. 300 tablet 3 11/09/2024 Active [place] 300 MG (1 source) take 1 capsule by mouth once daily [place] 300 MG 1 capsule Orally one time [...] 300 mg by mouth once daily [place] Active 300 MG PO every day at [...] Start: 12-14-2019 take 2 tablets by mo [facility] once daily Sitagliptin Phos-Metformin (Janumet) 50-500 mg [...] MOUTH EVERY DAY Inhalation for 90 Active [place] 9-Jif-Hdg-Fish Oil (Fish Oil) 1,000 mg (120 mg-180 mg) Capsule (9 sources) Start: 12-17-2019 take 1 capsule by mouth twice daily [place] 5-Jbn-Cgt-Fish Oil (Fish Oil) 1,000 mg (120 mg-180 mg) Capsule Active 1 CAP PO Twice daily December 16, 2019 11:00pm Start: 12-17-2019 take 1 capsule by mo [facility] twice daily [place] 9-Wfh-Dyq-Fish Oil (Fish Oil) 1,000 mg (120 mg-180 mg) Capsule Active 1 CAP PO Twice daily December 17, 2019 12:00am [place]-3 Fatty Acids (Fish Oi l) 1000 MG capsule delayed-release (20 sources) take 1 capsule by mouth once daily [place]-3 Fatty Acids (Fish Oil) 1000 MG capsule delayed-release Take 1 capsule by mouth 1 (one) time each day. Active take 1 capsule by mouth once alma delia ly [place]-3 Fatty Acids (Fish Oil) 1000 MG [...] tablet 3 11/14/2023 Active polyethylene glycol 3350 81523 mg powder for oral solution (20 sources) [...] (1 source) take 1 capsule by mo [facility] once daily Vitamin E 400 UNIT 1 [...] Dates Sig (Normalized) Sig (Original) Glucos Sul 4vpy-Zii-Unliq-C-M n (Glucosamine Chondroitin) 550-30-1 mg Capsule (9 sources) Start: 12-17-2019 End: 01-12-2022 take 1 capsule by mouth twice daily [place] 3zeq-Vdz-Rngig-C-Mn (Glucosamine Chondroitin) 550-30-1 mg Capsule Discontinued 1 CAP PO Twice daily December 16, 2019 11:00pm January 12, 2022 10:09am Start: 12-17-2019 End: 01-12-2022 take 1 capsule by mouth twice daily Gluc[place] 3hyx-Qfg-Gmyvx-C-Mn (Glucosamine Chondroitin) 550-30-1 mg Capsule Discontinued 1 [...] disease (1 source) Atherosclerotic heart disease of [place] coronary artery without angina pectoris; Translations: [ASHD [place] 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] Onset: 11-25-2021 Chronic [...] 10-31-2022 10-31-2022 Chronic Other aftercare (1 source) alf (current) use of aspirin; Translations: [SENIOR SCHEDULER CURRENT USE OF ASPIRIN] Onset: 01-25-2022 Episodic Other aftercare (1 source) buttermaker helper (current) use of insulin; Translations: [RETIREMENT CURRENT USE OF INSULIN] Onset: 01-25-2022 Episodic Other aftercare (1 source) Other fdc (current) drug therapy; Translations: [OTH SENIOR SCHEDULER CURRENT DRUG THERAPY] Onset: 01-25-2022 Episodic Other and ill-defined heart disease (20 sources) Diastolic dysfunction; Translations: [Other ill-defined heart diseases] Onset: 10-31-2022 10-31-2022 Chronic Other bone disease and musculoskeletal deformities (1 source) Other specified disorders of bone density and structure, left thigh; Translations: [[facility] D/O BONE DEN STRUCT LT THIGH] [...] nonspecific abnormal finding of lung field; Translations: [[facility] NONSPECIFIC ABN FIND LNG FIELD] Onset: [...] Onset: 08-17-2021 Episodic Other aftercare (1 source) buttermaker helper (current) use of oral hypoglycemic drugs; Translations: [SENIOR SCHEDULER USE ORAL HYPOGLYCEMIC DX] Onset: 05-28-2021 Episodic [...] Test Name Value Interpretation Reference Range Facility [facility] US CAROTID ARTERY DUPLE X BILATERALon 10-19-2024 [facility] US CAROTID ARTERY DUPLEX BILATERAL EXAM: [facility] US CAROTID ARTERY DUPLEX BILATERAL HISTORY: Bilateral [...] present in the vertebral artery. There is szoi-kv-tycpyuiy plaque visualized in the left common carotid [...] II, MD, PHD at 22-Oct-2024 10:54:18 AM [facility] SRU criteria: <180 No plaque <2.0 Normal <180 <50% plaque <2.0 <50% 180-230 >50% plaque 2.0 - 4.0 50-69% >230 >50% plaque >4.0 >70% PSV 125-180 cm/sec and ICA/CCA PSV Ratio >= 2.0 is also consistent with 50-69% stenosis. Normal Not Available Laboratory - Hematology and Cell countson 10-11-2024 HbA1c (Bld) [Mass fraction] 4.8 % [facility] No Panel Informationon 10-11 Interpretation and review of laboratory results Normal [facility] CBC (H/H, RBC, INDICES, WBC, PLT)on 05-12-2024 Erythrocyte distribution width (RBC) [Ratio] 14.0 % Normal 11.0-15.0 [facility] Comment on above: Performed By: #### 7 600 #### [facility] [place] [address] [employer]: Дмитрий Mendoza MD #### [id number], 1759 #### [facility] [address] [employer]: Joyce Vaca Hematocrit (Bld) [Volume fraction] 40.1 % Normal 35.0-45.0 [facility] Comment on above: Performed By: #### 7 600 #### [facility] [place] [address] [employer]: Дмитрий Mendoza MD #### [id number], 1759 #### [facility] [address] [place], [place] [id number] [employer]: Joyce Hurley Flati Hemoglobin (Bld) [Mass/Vol] 13.5 g/dL Normal 11.7-15.5 [facility] Comment on above: Performed By: #### 7 600 #### [facility] [address], [address] [place] [address] [employer]: Дмитрий Mendoza MD #### [id number], 1759 #### [facility] [address] [place], [place] [phone] [employer]: Joyce Vaca MCH (RBC) [Entitic mass] 30.6 pg Normal 27.0-33.0 [facility] Comment on above: Performed By: #### 7 600 #### [facility] [address], [address] [place] [address] [employer]: Дмитрий Mendoza MD #### [id number], 1754 #### [facility] [address] [employer]: Joyce Vaca MCHC (RBC) [Mass/Vol] 33.7 g/dL [...] By: #### 7 600 #### [facility] [address], [address] [place] [address] [employer]: Дмитрий Mendoza MD #### [id number], 1756 #### [facility] [address] [employer]: Joyce Vaca MCV (RBC) [Entitic vol] 90.9 fL Normal 80.0-100.0 [facility] Comment on above: Performed By: #### 7 600 #### [facility] [place] [address] [employer]: Дмитрий Mendoza MD #### [id number], 1755 #### [facility] [address] [employer]: Joyce Vaca Platelet mean volume (Bld) [Entitic vol] 8.5 fL Normal 7.5-12.5 [facility] Comment on above: Performed By: #### 7 600 #### [facility] [address], [address] [place] [address] [employer]: Дмитрий Mendoza MD #### [id number], 1759 #### [facility] [place] [address] [employer]: Joyce Vaca Platelets (Bld) [#/Vol] 309 10*3/uL Normal 140-400 [facility] Comment on above: Performed By: #### 7 600 #### [facility] [place] [address] [place] , [address] [place] [address] [employer]: Дмитрий Mendoza MD #### [id number], 1759 #### [facility] [address] [place] [phone] [employer]: Joyce Vaca RBC (Bld) [#/Vol] 4.41 10*6/uL Normal 3.80-5.10 [facility] Comment on above: Performed By: #### 7 600 #### [facility] [place] [address], [address] [place] [address] [employer]: Дмитрий Mendoza MD #### [id number], 1759 #### [facility] [phone] [employer]: Joyce Vaca WBC (Bld) [#/Vol] 7.2 10*3/uL Normal 3.8-10.8 [facility] Comment on above: Performed By: #### 7 600 #### [facility] [place] [address] [place] , [address] [place] [address] [employer]: Дмитрий Mendoza MD #### [id number], 1759 #### [facility] [address] [place] [phone] [employer]: Joyce Vaca [facility] 05-12-2024 Albumin [Mass/Vol] 3.7 g/dL Normal 3.6-5.1 [facility] Comment on above: Performed By: #### 7 600 #### [facility] [place] [address] [place] , [address] [place] [address] [employer]: Дмитрий Mendoza MD #### [id number], 175 #### [facility] [address] [place], [place] [phone] [employer]: Joyce Vaca Albumin/Globulin [Mass ratio] 1.3 {ratio} Normal 1.0-2.5 [facility] Comment on above: Performed By: #### 7 600 #### [facility] [address], [address] [place] [address] [employer]: Дмитрий Mendoza MD #### [id number], 1759 #### [facility] [address] [place], [place] [phone] [employer]: Joyce Vaca ALP [Catalytic activity/Vol] 35 U/L Low 37-153 [facility] Comment on above: Performed By: #### 7 600 #### [facility] [address], [address] [place] [address] [employer]: Дмитрий Mendoza MD #### 28975, 1759 #### [facility] [address] [place] [address] [employer]: Jocye Vaca ALT [Catalytic activity/Vol] 16 U/L Normal 6-29 [facility] Comment on above: Performed By: #### 7 600 #### [facility] [address], [address] [place] [address] [employer]: Дмитрий Mendoza MD #### 51010, 1759 #### [facility] [address] [place], [place] [phone] [employer]: Joyce Vaca AST [Catalytic activity/Vol] 26 U/L Normal 10-35 [facility] Comment on above: Performed By: #### 7 600 #### [facility] [address], [address] [place] [address] [employer]: Дмитрий Mendoza MD #### 48968, 1757 #### [facility]-[address] [employer]: Joyce Vaca Bilirubin [Mass/Vol] 0.5 mg/dL Normal 0.2-1.2 [facility] Comment on above: Performed By: #### 7 600 #### [facility] [address], [address] [place] [address] [employer]: Дмитрий Mendoza MD #### [id number], 1759 #### [facility] [address] [place] [address] [employer]: Joyce Vaca BUN/CREATININE RATIO SEE NOTE: Normal 6-22 [facility] Comment on above: Result Comment: Not Reported: BUN and Creatinine are within reference range. Performed By: #### 7 600 #### [facility] [address], [address] [place] [address] [employer]: Дмитрий Mendoza MD #### [id number], 1759 #### [facility] [address] [employer]: Joyce Vaca Calcium [Mass/Vol] 9.6 mg/dL Normal 8.6-10.4 [facility] Comment on above: Performed By: #### 7 600 #### [facility] [address], [address] [place] [address] [employer]: Дмитрий Mendoza MD #### [id number], 1759 #### [facility] [address] [employer]: Joyce Hurley Flati Chloride [Moles/Vol] 97 mmol/L Low 98-110 [facility] Comment on above: Performed By: #### 7 600 #### [facility] [address], [address] [place] [address] [employer]: Дмитрий Mendoza MD #### 33860, 1759 #### [facility] [address] [place] [address] [employer]: Joyce Hurley Flati CO2 [Moles/Vol] 30 mmol/L Normal 20-32 [facility] Comment on above: Performed By: #### 7 600 #### [facility] [address], [address] [place] [address] [employer]: Дмитрий Mendoza MD #### 22248, 1759 #### [facility] [address] [place] [address] [employer]: Joyce Vaca Creatinine [Mass/Vol] 0.69 mg/dL Normal 0.60-1.[address] [facility] Comment on above: Performed By: #### 7 600 #### [facility] [address], [address] [place] [address] [employer]: Дмитрий Mendoza MD #### 10585, 1759 #### [facility] [address] [employer]: Joyce Vaca GFR/1.73 sq M.predicted among non-blacks MDRD (S/P/Bld) [Vol rate/Area] 90 mL/min/{1.73_m2} Normal > OR = 60 [facility] Comment on above: Performed By: #### 7 600 #### [facility] [address], [address] [place] [address] [employer]: Дмитрий Mendoza MD #### [id number], 1759 #### [facility] [address] [employer]: Joyce Vaca Globulin (S) [Mass/Vol] 2.8 g/dL Normal 1.9-3.7 [facility] Comment on above: Performed By: #### 7 600 #### [facility] [address], [address] [place] [address] [employer]: Дмитрий Mendoza MD #### 16112, 1759 #### [facility] [address] [place] [address] [employer]: Joyce Vaca Glucose [Mass/Vol] 81 mg/dL Normal 65-139 [facility] Comment on above: Result Comment: Non-fasting reference interval Performed By: #### 7 600 #### [facility] [address], [address] [place], [place] [address] [employer]: Дмитрий Mendoza MD #### [id number], 1759 #### [facility] [address] [place] [address] [employer]: Joyce Friedmani Potassium [Moles/Vol] 4.1 mmol/L Normal 3.5-5.[address] [facility] Comment on above: Performed By: #### 7 600 #### [facility] [address], [address] [place] [address] [employer]: Дмитрий Mendoza MD #### 43604, 1759 #### [facility] [address] [place], [place] [phone] [employer]: Joyce Friedmani Protein [Mass/Vol] 6.5 g/dL Normal 6.1-8.1 [facility] Comment on above: Performed By: #### 7 600 #### [facility] [address], [address] [place] [address] [employer]: Дмитрий Mendoza MD #### [id number], 1759 #### [facility] [address] [place], [place] [phone] [employer]: Joyce Hurley Flati Sodium [Moles/Vol] 135 mmol/L Normal 135-146 [facility] Comment on above: Performed By: #### 7 600 #### [facility] [address], [address] [place] [address] [employer]: Дмитрий Mendoza MD #### 55232, 1759 #### [facility] [address] [place] [address] [employer]: Joyce Vaca Urea nitrogen [Mass/Vol] 21 mg/dL Normal 7-25 [facility] Comment on above: Performed By: #### 7 600 #### [facility] [address], [address] [place] [address] [employer]: Дмитрий Mendoza MD #### 65021, 1759 #### [facility] [address] [place], [place] [phone] [employer]: Joyce Vaca LIPID PANEL, [address] Cholesterol [Mass/Vol] 156 mg/dL Normal <200 [facility] Comment on above: Order Comment: FASTI NG:NO COLLECTION REQUIREMENTS NOT MET. PATIENT ADVISED TO RETURN. FASTING: NO Performed By: #### 7 600 #### [facility] [address], [address] [place] [address] [employer]: Дмитрий Mendoza MD #### 99044, 1759 #### [facility] [address] [place] [phone] [employer]: Joyce Vaca Cholesterol in HDL [Mass/Vol] 42 mg/dL Low > OR = 50 [facility] Comment on above: Order Comment: FASTI NG:NO COLLECTION REQUIREMENTS NOT MET. PATIENT ADVISED TO RETURN. FASTING: NO Performed By: #### 7 600 #### [facility] [address], [address] [place] [address] [employer]: Дмитрий Mendoza MD #### 27526, 1759 #### [facility] [address] [place] [phone] [employer]: Joyce Vaca Cholesterol in LDL [Mass/Vol] 85 [...] equation in the estimation of LDL-C. Devyn SS et al. ZORAIDA. 2013;310(19): 5765-1235 (http://education.Pelikon.Impinj/faq/HYY989) Performed By: #### 7 600 #### [facility] [address], [address] [place] [address] [employer]: Дмитрий Mendoza MD #### 76406, 1759 #### [facility] [address] [place] [phone] [employer]: Joyce Vaca Cholesterol.total/Rocío sterol in HDL [Mass ratio] 3.7 {ratio} Normal <5.0 [facility] Comment on above: Order Comment: FASTI NG:NO COLLECTION REQUIREMENTS NOT MET. PATIENT ADVISED TO RETURN. FASTING: NO Performed By: #### 7 600 #### [facility] [address], [address] [place] [address] [employer]: Дмитрий Mendoza MD #### 89080, 1759 #### [facility] [address] [place] [address] [employer]: Joyce Vaca NON HDL CHOLESTEROL 114 mg/dL [...] By: #### 7 600 #### [facility] [address], [address] [place] [address] [employer]: Дмитрий Mendoza MD #### 64714, 1759 #### [facility] [address] [place] [phone] [employer]: Joyce Vaca Triglyceride [Mass/Vol] 197 mg/dL High <150 [facility] Comment on above: Order Comment: FASTI NG:NO COLLECTION REQUIREMENTS NOT MET. PATIENT ADVISED TO RETURN. FASTING: NO Performed By: #### 7 600 #### [facility] [address], [address] [place] [address] [employer]: Дмитрий Mendoza MD #### [id number], 1759 #### [facility] [address] [place] [phone] [employer]: Joyce Vaca MR lumbar spine wo conon MR lumbar spine wo con [facility] [place] [address] [place] [address] XRay Report Signed Patient: Nuvia Martin MR#: [id number] : 1945 Acct:[id number] Age/Sex: 78 / F ADM Date: 09/16/23 Loc: MR Room: Type: [facility] Attending Dr: Wily Prado MD Copies to: Wily Prado MD Ordering Provider: Wily Prado MD Date of Service: 09/16/23 MR/MR lumbar spine wo con: M51.36, M43.16 M54.42, M54.41 ([id number]) XR/XR pre/post mri xray: M54.42, M54.41, M51.36, [...] Latonya Riggs M.D.09/16/2023 10:57 AM Dictation Location: [place] [address] Transcribed By: MARLON 09/16/23 1057 Dictated By: Latonya Riggs MD 09/16/23 1046 Signed By: 09/16/23 1057 Normal [facility] Alanine aminotransferase [En zymatic activity/volume] in Serum or PlasmaOrdered By: Taylor Tijerina on 01-31-2023 ALT [Catalytic activity/Vol] 16 U/L 7-52 [facility] Albumin [Mass/volume] in Ser um or Plasma by Bromocresol green (BCG) dye binding methoOrdered By: Taylor Tijerina on 01-31-2023 Albumin BCG dye [Mass/Vol] 3.7 g/dL 3.5-5.7 [facility] Alkaline phosphatase [Enzyma tic activity/volume] in Serum or PlasmaOrdered By: Taylor Tijerina on 01-31-2023 ALP [Catalytic activity/Vol] 72 U/L 34-104 [facility] Aspartate aminotransferase [ Enzymatic activity/volume] in Serum or PlasmaOrdered By: Taylor Tijerina on 01-31-2023 AST [Catalytic activity/Vol] 24 U/L 13-39 [facility] Basophils Auto (Bld) [#/Vol] Ordered By: Taylor Tijerina on 01-31-2023 Basophils (Bld) [#/Vol] 0.1 10*3/uL 0.0-0.2 [facility] Basophils/100 WBC Auto (Bld) Ordered By: Taylor Tijerina on 01-31-2023 Basophils/100 WBC (Bld) 0.9 % . [facility] Bilirubin.total [Mass/volume ] in Serum or PlasmaOrdered By: Taylor Tijerina on 01-31-2023 Bilirubin [Mass/Vol] 0.4 mg/dL 0.3-1.0 [facility] Calcium [Mass/volume] in Ser um or PlasmaOrdered By: Taylor Tijerina on 01-31-2023 Calcium [Mass/Vol] 9.1 mg/dL 8.6-10.3 [facility] Carbon dioxide, total [Moles /volume] in Serum or PlasmaOrdered By: Taylor Tijerina on 01-31-2023 CO2 [Moles/Vol] 30.6 mmol/L 21.0-31.0 [facility] Chloride [Moles/volume] in S ramiro or PlasmaOrdered By: Taylor Tijerina on 01-31-2023 Chloride [Moles/Vol] 102 mmol/L 98-107 [facility] Creatinine [Mass/volume] in Serum or PlasmaOrdered By: Taylor Tijerina on 01-31-2023 Creatinine [Mass/Vol] 0.90 mg/dL 0.60-1.20 [facility] Eosinophils Auto (Bld) [#/Vo l]Ordered By: Taylor Tijerina on 01-31-2023 Eosinophils (Bld) [#/Vol] 0.1 10*3/uL 0.0-0.45 [facility] Eosinophils/100 WBC Auto (Bl d)Ordered By: Taylor Tijerina on 01-31-2023 Eosinophils/100 WBC (Bld) 2.0 % . [facility] Erythrocyte distribution wid th Auto (RBC) [Ratio]Ordered By: Taylor Tijerina on 01-31-2023 Erythrocyte distribution width (RBC) [Ratio] 13.8 % 11.9-15.3 [facility] Ferritin [Mass/volume] in Se rum or PlasmaOrdered By: Taylor Tijerina on 01-31-2023 Ferritin [Mass/Vol] 58.3 ng/mL 11.0-306.8 [facility] Globulin Calc (S) [Mass/Vol] Ordered By: Taylor Tijerina on 01-31-2023 Globulin (S) [Mass/Vol] 2.6 g/dL [facility] Glucose [Mass/volume] in Ser um or PlasmaOrdered By: Taylor Tijerina on 01-31-2023 Glucose [Mass/Vol] 118 mg/dL 70-100 [facility] Comment on above: ADA recommended refe rence rangeRandom Glucose Reference Range is dependent on time and content of last meal. Glucose of more than 200 mg/dL in a nonstressed, ambulatory subject supports the diagnosis of Diabetes Mellitus. Hematocrit Auto (Bld) [Volum e fraction]Ordered By: Taylor Tijerina on 01-31-2023 Hematocrit (Bld) [Volume fraction] 40.4 % 34.0-46.4 [facility] Hemoglobin [Mass/volume] in BloodOrdered By: Taylor Tijerina 01-31-2023 Hemoglobin (Bld) [Mass/Vol] 13.9 g/dL 11.8-15.4 [facility] Iron [Mass/volume] in Serum or PlasmaOrdered By: Taylor Tijerina 01-31-2023 Iron [Mass/Vol] 91 ug/dL 50-212 [facility] Iron binding capacity [Mass/ volume] in Serum or PlasmaOrdered By: Taylor Tijerina on 01-31-2023 Iron binding capacity [Mass/Vol] 385 ug/dL 255-450 [facility] Iron saturation [Mass Fracti on] in Serum or PlasmaOrdered By: Taylor Tijerina on 01-31-2023 Iron saturation [Mass fraction] 23.6 % 20-50 [facility] Leukocytes [#/volume] correc shara for nucleated erythrocytes in Blood by Automated counOrdered By: Taylor Tijerina on 01-31-2023 WBC corrected for nucl RBC Auto (Bld) [#/Vol] 6.9 10*3/uL 3.8-11.6 [facility] Lymphocytes Auto (Bld) [#/Vo l]Ordered By: Taylor Tijerina on 01-31-2023 Lymphocytes (Bld) [#/Vol] 1.8 10*3/uL 1.00-4.8 [facility] Lymphocytes/100 WBC Auto (Bl d)Ordered By: Taylor Tijerina on 01-31-2023 Lymphocytes/100 WBC (Bld) 26.2 % . [facility] MCH Auto (RBC) [Entitic mass ]Ordered By: Taylor Tijerina on 01-31-2023 MCH (RBC) [Entitic mass] 32.5 pg 24.7-34.3 [facility] MCHC Auto (RBC) [Mass/Vol]Or dered By: Taylor Tijerina on 01-31-2023 MCHC (RBC) [Mass/Vol] 34.4 g/dL 32.0-35.0 [facility] MCV Auto (RBC) [Entitic vol] Ordered By: Taylor Tijerina on 01-31-2023 MCV (RBC) [Entitic vol] 94.5 fL 80-100 [facility] Monocytes Auto (Bld) [#/Vol] Ordered By: Taylor Tijerina on 01-31-2023 Monocytes (Bld) [#/Vol] 0.6 10*3/uL 0.0-0.8 [facility] Monocytes/100 WBC Auto (Bld) Ordered By: Taylor Tijerina on 01-31-2023 Monocytes/100 WBC (Bld) 9.2 % . [facility] Neutrophils Auto (Bld) [#/Vo l]Ordered By: Taylor Tijerina on 01-31-2023 Neutrophils (Bld) [#/Vol] 4.2 10*3/uL 1.8-7.7 [facility] Neutrophils/100 WBC Auto (Bl d)Ordered By: Taylor Tijerina on 01-31-2023 Neutrophils/100 WBC (Bld) 61.7 % . [facility] No Panel InformationOrdered By: Taylor Tijerina on 01-31-2023 Estimated GFR (CKD-EPI) > 60.0 mL/Min [facility] Creatinine Clearance (Chem 49.88 [facility] Nucleated erythrocytes [Pres ence] in Blood by Automated countOrdered By: Taylor Tijerina on 01-31-2023 Nucleated RBC Auto Ql (Bld) 0.1 /100{WBC} 0-0.5 [facility] Platelet mean volume Auto (B ld) [Entitic vol]Ordered By: Taylor Tijerina on 01-31-2023 Platelet mean volume (Bld) [Entitic vol] 7.4 fL 6.3-10.7 [facility] Platelets Auto (Bld) [#/Vol] Ordered By: Taylor Tijerina on 01-31-2023 Platelets (Bld) [#/Vol] 349 10*3/uL 150-450 [facility] Potassium [Moles/volume] in Serum or PlasmaOrdered By: Taylor Tijerina on 01-31-2023 Potassium [Moles/Vol] 4.2 mmol/L 3.5-5.1 [facility] Comment on above: Hemolysis is present at a level that could interfere with the result. Protein [Mass/volume] in Ser um or PlasmaOrdered By: Taylor Tijerina on 01-31-2023 Protein [Mass/Vol] 6.3 g/dL 6.4-8.9 [facility] RBC Auto (Bld) [#/Vol]Ordere d By: Taylor Tijerina on 01-31-2023 RBC (Bld) [#/Vol] 4.27 10*6/uL 3.60-5.00 [facility] Serum or plasma albumin/glob ulin mass ratioOrdered By: Taylor Tijerina on 01-31-2023 Albumin/Globulin [Mass ratio] 1.4 {ratio} [facility] Serum or plasma anion gap de terminationOrdered By: Taylor Tijerina on 01-31-2023 Anion gap [Moles/Vol] 7.6 mmol/L 6.0-15.0 [facility] Sodium [Moles/volume] in Ser um or PlasmaOrdered By: Taylor Tijerina on 01-31-2023 Sodium [Moles/Vol] 136 mmol/L 136-145 [facility] Transferrin [Mass/volume] in Serum or PlasmaOrdered By: Taylor Tijerina on 01-31-2023 Transferrin [Mass/Vol] 275 mg/dL 203-362 [facility] Urea nitrogen [Mass/volume] in Serum or PlasmaOrdered By: Taylor Tijerina on 01-31-2023 Urea nitrogen [Mass/Vol] 24 mg/dL 7-25 [facility] WBC Auto (Bld) [#/Vol]Ordere d By: Taylor Tijerina on 01-31-2023 WBC (Bld) [#/Vol] 6.9 10*3/uL 3.8-11.6 [facility] Alanine aminotransferase [En zymatic activity/volume] in Serum or PlasmaOrdered By: Taylor Tijerina on 11-01-2022 ALT [Catalytic activity/Vol] 18 U/L 7-52 [facility] Albumin [Mass/volume] in Ser um or Plasma by Bromocresol green (BCG) dye binding methoOrdered By: Taylor Tijerina on 11-01-2022 Albumin BCG dye [Mass/Vol] 3.8 g/dL 3.5-5.7 [facility] Alkaline phosphatase [Enzyma tic activity/volume] in Serum or PlasmaOrdered By: Taylor Tijerina on 11-01-2022 ALP [Catalytic activity/Vol] 38 U/L 34-104 [facility] Aspartate aminotransferase [ Enzymatic activity/volume] in Serum or PlasmaOrdered By: Taylor Tijerina on 11-01-2022 AST [Catalytic activity/Vol] 22 U/L 13-39 [facility] Basophils Auto (Bld) [#/Vol] Ordered By: Taylor Tijerina on 11-01-2022 Basophils (Bld) [#/Vol] 0.1 10*3/uL 0.0-0.2 [facility] Basophils/100 WBC Auto (Bld) Ordered By: Taylor Tijerina on 11-01-2022 Basophils/100 WBC (Bld) 1.3 % . [facility] Bilirubin.total [Mass/volume ] in Serum or PlasmaOrdered By: Taylor Tijerina on 11-01-2022 Bilirubin [Mass/Vol] 0.4 mg/dL 0.3-1.0 [facility] Calcium [Mass/volume] in Ser um or PlasmaOrdered By: Taylor Tijerina on 11-01-2022 Calcium [Mass/Vol] 9.2 mg/dL 8.6-10.3 [facility] Carbon dioxide, total [Moles /volume] in Serum or PlasmaOrdered By: Tayolr Tijerina on 11-01-2022 CO2 [Moles/Vol] 28.9 mmol/L 21.0-31.0 [facility] Chloride [Moles/volume] in S ramiro or PlasmaOrdered By: Taylor Tijerina on 11-01-2022 Chloride [Moles/Vol] 100 mmol/L 98-107 [facility] Creatinine [Mass/volume] in Serum or PlasmaOrdered By: Taylor Tijerina on 11-01-2022 Creatinine [Mass/Vol] 0.76 mg/dL 0.60-1.20 [facility] Eosinophils Auto (Bld) [#/Vo l]Ordered By: Taylor Tijerina on 11-01-2022 Eosinophils (Bld) [#/Vol] 0.1 10*3/uL 0.0-0.45 [facility] Eosinophils/100 WBC Auto (Bl d)Ordered By: Taylor Tijerina on 11-01-2022 Eosinophils/100 WBC (Bld) 1.7 % . [facility] Erythrocyte distribution wid th Auto (RBC) [Ratio]Ordered By: Taylor Tijerina on 11-01-2022 Erythrocyte distribution width (RBC) [Ratio] 13.6 % 11.9-15.3 [facility] Ferritin [Mass/volume] in Se rum or PlasmaOrdered By: Taylor Tijerina on 11-01-2022 Ferritin [Mass/Vol] 90.9 ng/mL 11.0-306.8 [facility] Globulin Calc (S) [Mass/Vol] Ordered By: Taylor Tijerina on 11-01-2022 Globulin (S) [Mass/Vol] 2.2 g/dL [facility] Glucose [Mass/volume] in Ser um or PlasmaOrdered By: Taylor Tijerina on 11-01-2022 Glucose [Mass/Vol] 118 mg/dL 70-100 [facility] Comment on above: ADA recommended refe rence rangeRandom Glucose Reference Range is dependent on time and content of last meal. Glucose of more than 200 mg/dL in a nonstressed, ambulatory subject supports the diagnosis of Diabetes Mellitus. Hematocrit Auto (Bld) [Volum e fraction]Ordered By: Taylor Tijerina on 11-01-2022 Hematocrit (Bld) [Volume fraction] 37.4 % 34.0-46.4 [facility] Hemoglobin [Mass/volume] in BloodOrdered By: Taylor Tijerina on 11-01-2022 Hemoglobin (Bld) [Mass/Vol] 13.0 g/dL 11.8-15.4 [facility] Iron [Mass/volume] in Serum or PlasmaOrdered By: Taylor Tijerina on 11-01-2022 Iron [Mass/Vol] 94 ug/dL 50-212 [facility] Iron binding capacity [Mass/ volume] in Serum or PlasmaOrdered By: Taylor Tijerina on 11-01-2022 Iron binding capacity [Mass/Vol] 372 ug/dL 255-450 [facility] Iron saturation [Mass Fracti on] in Serum or PlasmaOrdered By: Taylor Tijerina on 11-01-2022 Iron saturation [Mass fraction] 25.3 % 20-50 [facility] Leukocytes [#/volume] correc shara for nucleated erythrocytes in Blood by Automated counOrdered By: Taylor Tijerina on 11-01-2022 WBC corrected for nucl RBC Auto (Bld) [#/Vol] 6.3 10*3/uL 3.8-11.6 [facility] Lymphocytes Auto (Bld) [#/Vo l]Ordered By: Taylor Tijerina on 11-01-2022 Lymphocytes (Bld) [#/Vol] 1.7 10*3/uL 1.00-4.8 [facility] Lymphocytes/100 WBC Auto (Bl d)Ordered By: Taylor Tijerina on 11-01-2022 Lymphocytes/100 WBC (Bld) 26.9 % . [facility] MCH Auto (RBC) [Entitic mass ]Ordered By: Taylor Tijerina on 11-01-2022 MCH (RBC) [Entitic mass] 33.1 pg 24.7-34.3 [facility] MCHC Auto (RBC) [Mass/Vol]Or dered By: Taylor Tijerina on 11-01-2022 MCHC (RBC) [Mass/Vol] 34.7 g/dL 32.0-35.0 [facility] MCV Auto (RBC) [Entitic vol] Ordered By: Taylor Tijerina on 11-01-2022 MCV (RBC) [Entitic vol] 95.6 fL 80-100 [facility] Monocytes Auto (Bld) [#/Vol] Ordered By: Taylor Tijerina on 11-01-2022 Monocytes (Bld) [#/Vol] 0.6 10*3/uL 0.0-0.8 [facility] Monocytes/100 WBC Auto (Bld) Ordered By: Taylor Tijerina on 11-01-2022 Monocytes/100 WBC (Bld) 9.5 % . [facility] Neutrophils Auto (Bld) [#/Vo l]Ordered By: Taylor Tijerina on 11-01-2022 Neutrophils (Bld) [#/Vol] 3.8 10*3/uL 1.8-7.7 [facility] Neutrophils/100 WBC Auto (Bl d)Ordered By: Taylor Tijerina on 11-01-2022 Neutrophils/100 WBC (Bld) 60.6 % . [facility] No Panel InformationOrdered By: Taylor Tijerina on 11-01-2022 Estimated GFR (CKD-EPI) > 60.0 mL/Min [facility] Creatinine Clearance (Chem 57.26 [facility] Nucleated erythrocytes [Pres ence] in Blood by Automated countOrdered By: Taylor Tijerina on 11-01-2022 Nucleated RBC Auto Ql (Bld) 0.2 /100{WBC} 0-0.5 [facility] Platelet mean volume Auto (B ld) [Entitic vol]Ordered By: Taylor Tijerina on 11-01-2022 Platelet mean volume (Bld) [Entitic vol] 7.1 fL 6.3-10.7 [facility] Platelets Auto (Bld) [#/Vol] Ordered By: Taylor Tijerina on 11-01-2022 Platelets (Bld) [#/Vol] 266 10*3/uL 150-450 [facility] Potassium [Moles/volume] in Serum or PlasmaOrdered By: Taylor Tijerina on 11-01-2022 Potassium [Moles/Vol] 4.3 mmol/L 3.5-5.1 [facility] Protein [Mass/volume] in Ser um or PlasmaOrdered By: Taylor Tijerina on 11-01-2022 Protein [Mass/Vol] 6.0 g/dL 6.4-8.9 [facility] RBC Auto (Bld) [#/Vol]Ordere d By: Taylor Tijerina on 11-01-2022 RBC (Bld) [#/Vol] 3.92 10*6/uL 3.60-5.00 [facility] Serum or plasma albumin/glob ulin mass ratioOrdered By: Taylor Tijerina on 11-01-2022 Albumin/Globulin [Mass ratio] 1.7 {ratio} [facility] Serum or plasma anion gap de terminationOrdered By: Taylor Tijerina on 11-01-2022 Anion gap [Moles/Vol] 11.4 mmol/L 6.0-15.0 [facility] Sodium [Moles/volume] in Ser um or PlasmaOrdered By: Taylor Tijerina on 11-01-2022 Sodium [Moles/Vol] 136 mmol/L 136-145 [facility] Transferrin [Mass/volume] in Serum or PlasmaOrdered By: Taylor Tijerina on 11-01-2022 Transferrin [Mass/Vol] 266 mg/dL 203-362 [facility] Urea nitrogen [Mass/volume] in Serum or PlasmaOrdered By: Taylor Tijerina on 11-01-2022 Urea nitrogen [Mass/Vol] 22 mg/dL 7-25 [facility] WBC Auto (Bld) [#/Vol]Ordere d By: Taylor Tijerina on 11-01-2022 WBC (Bld) [#/Vol] 6.3 10*3/uL 3.8-11.6 [facility] Basophils Auto (Bld) [#/Vol] Ordered By: Emily Degroot on 07-22-2022 Basophils (Bld) [#/Vol] 0.0 10*3/uL 0.0-0.2 [facility] Basophils/100 WBC Auto (Bld) Ordered By: Emily Degroot on 07-22-2022 Basophils/100 WBC (Bld) 0.5 % . [facility] Eosinophils Auto (Bld) [#/Vo l]Ordered By: Emily Degroot on 07-22-2022 Eosinophils (Bld) [#/Vol] 0.1 10*3/uL 0.0-0.45 [facility] Eosinophils/100 WBC Auto (Bl d)Ordered By: Emily Degroot on 07-22-2022 Eosinophils/100 WBC (Bld) 1.8 % . [facility] Erythrocyte distribution wid th Auto (RBC) [Ratio]Ordered By: Emily Degroot on 07-22-2022 Erythrocyte distribution width (RBC) [Ratio] 15.1 % 11.9-15.3 [facility] Ferritin [Mass/volume] in Se rum or PlasmaOrdered By: Emily Degroot on 07-22-2022 Ferritin [Mass/Vol] 27.4 ng/mL 11.0-306.8 [facility] Hematocrit Auto (Bld) [Volum e fraction]Ordered By: Emily Degroot on 07-22-2022 Hematocrit (Bld) [Volume fraction] 39.5 % 34.0-46.4 [facility] Hemoglobin [Mass/volume] in BloodOrdered By: Emily Degroot on 07-22-2022 Hemoglobin (Bld) [Mass/Vol] 13.5 g/dL 11.8-15.4 [facility] Iron [Mass/volume] in Serum or PlasmaOrdered By: Emily Degroot on 07-22-2022 Iron [Mass/Vol] 75 ug/dL 50-212 [facility] Iron binding capacity [Mass/ volume] in Serum or PlasmaOrdered By: Emily Degroot on 07-22-2022 Iron binding capacity [Mass/Vol] 486 ug/dL 255-450 [facility] Iron saturation [Mass Fracti on] in Serum or PlasmaOrdered By: Emily Degroot on 07-22-2022 Iron saturation [Mass fraction] 15.4 % 20-50 [facility] Leukocytes [#/volume] correc shara for nucleated erythrocytes in Blood by Automated counOrdered By: Emily Degroot on 07-22-2022 WBC corrected for nucl RBC Auto (Bld) [#/Vol] 6.2 10*3/uL 3.8-11.6 [facility] Lymphocytes Auto (Bld) [#/Vo l]Ordered By: Emily Degroot on 07-22-2022 Lymphocytes (Bld) [#/Vol] 1.5 10*3/uL 1.00-4.8 [facility] Lymphocytes/100 WBC Auto (Bl d)Ordered By: Emily Degroot on 07-22-2022 Lymphocytes/100 WBC (Bld) 24.3 % . [facility] MCH Auto (RBC) [Entitic mass ]Ordered By: Emily Degroot on 07-22-2022 MCH (RBC) [Entitic mass] 31.7 pg 24.7-34.3 [facility] MCHC Auto (RBC) [Mass/Vol]Or dered By: Emily Degroot on 07-22-2022 MCHC (RBC) [Mass/Vol] 34.1 g/dL 32.0-35.0 [facility] MCV Auto (RBC) [Entitic vol] Ordered By: Emily Degroot on 07-22-2022 MCV (RBC) [Entitic vol] 92.9 fL 80-100 [facility] Monocytes Auto (Bld) [#/Vol] Ordered By: Emily Degroot on 07-22-2022 Monocytes (Bld) [#/Vol] 0.5 10*3/uL 0.0-0.8 [facility] Monocytes/100 WBC Auto (Bld) Ordered By: Emily Degroot on 07-22-2022 Monocytes/100 WBC (Bld) 7.9 % . [facility] Neutrophils Auto (Bld) [#/Vo l]Ordered By: Emily Degroot on 07-22-2022 Neutrophils (Bld) [#/Vol] 4.1 10*3/uL 1.8-7.7 [facility] Neutrophils/100 WBC Auto (Bl d)Ordered By: Emily Degroot on 07-22-2022 Neutrophils/100 WBC (Bld) 65.5 % . [facility] Nucleated erythrocytes [Pres ence] in Blood by Automated countOrdered By: Emily Degroot on 07-22-2022 Nucleated RBC Auto Ql (Bld) 0.1 /100{WBC} 0-0.5 [facility] Platelet mean volume Auto (B ld) [Entitic vol]Ordered By: Emily Degroot on 07-22-2022 Platelet mean volume (Bld) [Entitic vol] 7.1 fL 6.3-10.7 [facility] Platelets Auto (Bld) [#/Vol] Ordered By: Emily Degroot on 07-22-2022 Platelets (Bld) [#/Vol] 308 10*3/uL 150-450 [facility] RBC Auto (Bld) [#/Vol]Ordere d By: Emily Degroot on 07-22-2022 RBC (Bld) [#/Vol] 4.25 10*6/uL 3.60-5.00 [facility] Transferrin [Mass/volume] in Serum or PlasmaOrdered By: Emily Degroot on 07-22-2022 Transferrin [Mass/Vol] 347 mg/dL 203-362 [facility] WBC Auto (Bld) [#/Vol]Ordere d By: Emily Degroot on 07-22-2022 WBC (Bld) [#/Vol] 6.2 10*3/uL 3.8-11.6 [facility] Anisocytosis LM Ql (Bld)Orde red By: Marisabel Noel on 04-23-2022 Anisocytosis Ql (Bld) Moderate [facility] Basophils Auto (Bld) [#/Vol] Ordered By: Marisabel Noel on 04-23-2022 Basophils (Bld) [#/Vol] 0.1 10*3/uL 0.0-0.2 [facility] Basophils/100 WBC Auto (Bld) Ordered By: Marisabel Noel on 04-23-2022 Basophils/100 WBC (Bld) 0.8 % . [facility] CT biopsyOrdered By: Marisabel foss on 04-23-2022 Transferrin [Mass/Vol] 309 mg/dL 180-380 [facility] Eosinophils Auto (Bld) [#/Vo l]Ordered By: Marisabel Noel on 04-23-2022 Eosinophils (Bld) [#/Vol] 0.2 10*3/uL 0.0-0.45 [facility] Eosinophils/100 WBC Auto (Bl d)Ordered By: Marisabel Noel on 04-23-2022 Eosinophils/100 WBC (Bld) 3.3 % . [facility] Erythrocyte distribution wid th Auto (RBC) [Ratio]Ordered By: Marisabel Noel on 04-23-2022 Erythrocyte distribution width (RBC) [Ratio] 16.9 % 11.9-15.3 [facility] Ferritin [Mass/volume] in Se rum or PlasmaOrdered By: Marisabel Noel on 04-23-2022 Ferritin [Mass/Vol] 40.0 ng/mL 11-306.8 [facility] Hematocrit Auto (Bld) [Volum e fraction]Ordered By: Marisabel Noel on 04-23-2022 Hematocrit (Bld) [Volume fraction] 40.2 % 34.0-46.4 [facility] Hemoglobin [Mass/volume] in BloodOrdered By: Marisabel Noel on 04-23-2022 Hemoglobin (Bld) [Mass/Vol] 13.5 g/dL 11.8-15.4 [facility] Hypochromia LM Ql (Bld)Order ed By: Marisabel Noel on 04-23-2022 Hypochromia Ql (Bld) Moderate [facility] Iron [Mass/volume] in Serum or PlasmaOrdered By: Marisabel Noel on 04-23-2022 Iron [Mass/Vol] 73 ug/dL 40-150 [facility] Iron binding capacity [Mass/ volume] in Serum or PlasmaOrdered By: Marisabel Noel on 04-23-2022 Iron binding capacity [Mass/Vol] 433 ug/dL 255-450 [facility] Iron saturation [Mass Fracti on] in Serum or PlasmaOrdered By: Marisabel Noel on 04-23-2022 Iron saturation [Mass fraction] 16.0 % 20-50 [facility] Leukocytes [#/volume] correc shara for nucleated erythrocytes in Blood by Automated counOrdered By: Marisabel Noel on 04-23-2022 WBC corrected for nucl RBC Auto (Bld) [#/Vol] 7.0 10*3/uL 3.8-11.6 [facility] Lymphocytes Auto (Bld) [#/Vo l]Ordered By: Marisabel Noel on 04-23-2022 Lymphocytes (Bld) [#/Vol] 1.4 10*3/uL 1.00-4.8 [facility] Lymphocytes/100 WBC Auto (Bl d)Ordered By: Marisabel Noel on 04-23-2022 Lymphocytes/100 WBC (Bld) 20.8 % . [facility] MCH Auto (RBC) [Entitic mass ]Ordered By: Marisabel Noel on 04-23-2022 MCH (RBC) [Entitic mass] 29.8 pg 24.7-34.3 [facility] MCHC Auto (RBC) [Mass/Vol]Or dered By: Marisabel Noel on 04-23-2022 MCHC (RBC) [Mass/Vol] 33.4 g/dL 32.0-35.0 [facility] MCV Auto (RBC) [Entitic vol] Ordered By: Marisabel Noel on 04-23-2022 MCV (RBC) [Entitic vol] 89.2 fL 80-100 [facility] Microcytes LM Ql (Bld)Ordere d By: Marisabel Noel on 04-23-2022 Microcytes Ql (Bld) Slight [facility] Monocytes Auto (Bld) [#/Vol] Ordered By: Marisabel oNel on 04-23-2022 Monocytes (Bld) [#/Vol] 0.5 10*3/uL 0.0-0.8 [facility] Monocytes/100 WBC Auto (Bld) Ordered By: Marisabel Noel on 04-23-2022 Monocytes/100 WBC (Bld) 6.9 % . [facility] Neutrophils Auto (Bld) [#/Vo l]Ordered By: Marisabel Noel on 04-23-2022 Neutrophils (Bld) [#/Vol] 4.7 10*3/uL 1.8-7.7 [facility] Neutrophils/100 WBC Auto (Bl d)Ordered By: Marisabel Noel on 04-23-2022 Neutrophils/100 WBC (Bld) 68.2 % . [facility] Nucleated erythrocytes [Pres ence] in Blood by Automated countOrdered By: Marisabel Noel on 04-23-2022 Nucleated RBC Auto Ql (Bld) 0.1 /100{WBC} 0-0.5 [facility] Ovalocyte detectionOrdered B y: Marisabel Noel on 04-23-2022 Ovalocytes LM Ql (Bld) Slight [facility] Platelet adequacy [Presence] in Blood by Light microscopyOrdered By: Marisabel Noel on 04-23-2022 Platelets LM Ql (Bld) Normal Normal [facility] Platelet mean volume Auto (B ld) [Entitic vol]Ordered By: Marisabel Noel on 04-23-2022 Platelet mean volume (Bld) [Entitic vol] 6.9 fL 6.3-10.7 [facility] Platelet morphology finding [Identifier] in BloodOrdered By: Marisabel Noel on 04-23-2022 Platelet morphology finding Nom (Bld) Normal Normal [facility] Platelets Auto (Bld) [#/Vol] Ordered By: Marisabel Noel on 04-23-2022 Platelets (Bld) [#/Vol] 298 10*3/uL 150-450 [facility] RBC Auto (Bld) [#/Vol]Ordere d By: Marisabel Noel on 04-23-2022 RBC (Bld) [#/Vol] 4.51 10*6/uL 3.60-5.00 [facility] RBC morphologyOrdered By: Pablo Noel on 04-23-2022 RBC morphology finding Nom (Bld) N/A [facility] Red blood cell stomatocyte d etectionOrdered By: Marisabel Noel on 04-23-2022 Stomatocytes LM Ql (Bld) Slight [facility] WBC Auto (Bld) [#/Vol]Ordere d By: Marisabel Noel on 04-23-2022 WBC (Bld) [#/Vol] 7.0 10*3/uL 3.8-11.6 [facility] Basophils Auto (Bld) [#/Vol] Ordered By: Taylor Tijerina on 02-18-2022 Basophils (Bld) [#/Vol] N/A [facility] Basophils/100 WBC Auto (Bld) Ordered By: Taylor Tijerina on 02-18-2022 Basophils/100 WBC (Bld) N/A [facility] Basophils/100 WBC (Bld) 1 % 0-2 [facility] Blood anisocytosis detection Ordered By: Taylor Tijerina on 02-18-2022 Anisocytosis Ql (Bld) Marked [facility] Blood hemoglobin measurement (mass/volume)Ordered By: Taylor Tijerina on 02-18-2022 Hemoglobin (Bld) [Mass/Vol] 11.1 g/dL 11.8-15.4 [facility] Blood leukocytes automated c ount (number/volume)Ordered By: Taylor Tijerina on 02-18-2022 WBC (Bld) [#/Vol] 4.5 10*3/uL 4.5-11.0 [facility] CT biopsyOrdered By: Taylor Trammell on 02-18-2022 Transferrin [Mass/Vol] 297 mg/dL 180-380 [facility] Eosinophils Auto (Bld) [#/Vo l]Ordered By: Taylor Tijerina on 02-18-2022 Eosinophils (Bld) [#/Vol] N/A [facility] Eosinophils/100 WBC Auto (Bl d)Ordered By: Taylor Tijerina on 02-18-2022 Eosinophils/100 WBC (Bld) N/A [facility] Erythrocyte distribution wid th Auto (RBC) [Ratio]Ordered By: Taylor Tijerina on 02-18-2022 Erythrocyte distribution width (RBC) [Ratio] 38.8 % 11.9-15.3 [facility] Ferritin [Mass/volume] in Se rum or PlasmaOrdered By: Taylor Tijerina on 02-18-2022 Ferritin [Mass/Vol] 229.8 ng/mL 11-306.8 [facility] Hematocrit Auto (Bld) [Volum e fraction]Ordered By: Taylor Tijerina on 02-18-2022 Hematocrit (Bld) [Volume fraction] 35.2 % 34.0-46.4 [facility] Hypochromia detectionOrdered By: Taylor Tijerina on 02-18-2022 Hypochromia Ql (Bld) Marked [facility] Iron [Mass/volume] in Serum or PlasmaOrdered By: Taylor Tijerina on 02-18-2022 Iron [Mass/Vol] 116 ug/dL 40-150 [facility] Iron binding capacity [Mass/ volume] in Serum or PlasmaOrdered By: Taylor Tijerina on 02-18-2022 Iron binding capacity [Mass/Vol] 416 ug/dL 255-450 [facility] Iron saturation [Mass Fracti on] in Serum or PlasmaOrdered By: Taylor Tijerina on 02-18-2022 Iron saturation [Mass fraction] 27.0 % 20-50 [facility] Laboratory - Hematology and Cell countsOrdered By: Taylor Tijerina on 02-18-2022 Band form neutrophils/100 WBC (Bld) 2 % 0-5 [facility] Nucleated RBC/100 WBC (Bld) [Ratio] 0.1 % 0-0.5 [facility] Lymphocytes Auto (Bld) [#/Vo l]Ordered By: Taylor Tijerina on 02-18-2022 Lymphocytes (Bld) [#/Vol] N/A [facility] Lymphocytes/100 WBC Auto (Bl d)Ordered By: Taylor Tijerina on 02-18-2022 Lymphocytes/100 WBC (Bld) N/A [facility] Lymphocytes/100 WBC (Bld) 21 % 18-42 [facility] Lymphocytes/100 WBC Manual c nt (Bld)Ordered By: Taylor Tijerina on 02-18-2022 Lymphocytes/100 WBC (Bld) 2 % 0-12 [facility] MCH Auto (RBC) [Entitic mass ]Ordered By: Taylor Tijerina on 02-18-2022 MCH (RBC) [Entitic mass] 24.7 pg 24.7-34.3 [facility] MCHC Auto (RBC) [Mass/Vol]Or dered By: Taylor Tijerina on 02-18-2022 MCHC (RBC) [Mass/Vol] 31.6 g/dL 32.0-35.0 [facility] MCV Auto (RBC) [Entitic vol] Ordered By: Taylor Tijerina on 02-18-2022 MCV (RBC) [Entitic vol] 78.3 fL 80-100 [facility] Macrocytes detectionOrdered By: Taylor Tijerina on 02-18-2022 Macrocytes Ql (Bld) Moderate [facility] Monocytes Auto (Bld) [#/Vol] Ordered By: Talyor Tijerina on 02-18-2022 Monocytes (Bld) [#/Vol] N/A [facility] Monocytes/100 WBC Auto (Bld) Ordered By: Taylor Tijerina on 02-18-2022 Monocytes/100 WBC (Bld) N/A [facility] Monocytes/100 WBC Manual cnt (Bld)Ordered By: Taylor Tijerina on 02-18-2022 Monocytes/100 WBC (Bld) 6 % 2-11 [facility] Neutrophils Auto (Bld) [#/Vo l]Ordered By: Taylor Tijerina on 02-18-2022 Neutrophils (Bld) [#/Vol] N/A [facility] Neutrophils/100 WBC Auto (Bl d)Ordered By: Taylor Tijerina on 02-18-2022 Neutrophils/100 WBC (Bld) N/A [facility] No Panel InformationOrdered By: Taylor Tijerina on 02-18-2022 Microcytosis Slight [facility] Platelet Estimate Normal Normal [facility] Platelet Morphology Comment Normal Normal [facility] Platelet mean volume Auto (B ld) [Entitic vol]Ordered By: Taylor Tijerina on 02-18-2022 Platelet mean volume (Bld) [Entitic vol] 8.4 fL 6.3-10.7 [facility] Platelets Auto (Bld) [#/Vol] Ordered By: Taylor Tijerina on 02-18-2022 Platelets (Bld) [#/Vol] 363 10*3/uL 150-450 [facility] RBC Auto (Bld) [#/Vol]Ordere d By: Taylor Tijerina on 02-18-2022 RBC (Bld) [#/Vol] 4.49 10*6/uL 3.60-5.00 [facility] RBC morphologyOrdered By: Ana Laura shannon Lilliana on 02-18-2022 RBC morphology finding Nom (Bld) N/A [facility] Red blood cell stomatocyte d etectionOrdered By: Taylor Chengpranay on 02-18-2022 Stomatocytes LM Ql (Bld) Slight [facility] Segmented neutrophils/100 WB C Manual cnt (Bld)Ordered By: Taylor Chengpranay on 02-18-2022 Segmented neutrophils/100 WBC (Bld) 68 % 50-70 [facility] Progress Noteson 02-17-2022 [employer] Authentication Interface Message Text EMERGENCY TRIAGE, TREAT AND TRANSPORT (ET3) DOCUMENTATION OF TELEHEALTH VISIT Date / Time: 02/17/2022916 Name: Nuvia Martin : 1945 SSN: [id number] EMS Agency: [facility] [x] Verbal consent obtained [] Implied [...] Completed by: Cassidy Julio MD Normal [facility] [employer] [facility] CT FACIAL BONES WO CONon CT [...] CARSON VASQUEZ Date: 2022-01-14 02:14 Normal [facility] XR CHEST 1 Von 01-14-2022 XR [...] JANET SCHWARTZ Date: 2022-01-14 03:18 Normal [facility] Albumin [Mass/volume] in Ser um or PlasmaOrdered By: Taylor Tijerina on 01-12-2022 Albumin [Mass/Vol] 3.1 g/dL 2.9-4.4 [facility] Basophils Auto (Bld) [#/Vol] Ordered By: Taylor Tijerina on 01-12-2022 Basophils (Bld) [#/Vol] 0.1 10*3/uL 0.0-0.2 [facility] Basophils/100 WBC Auto (Bld) Ordered By: Taylor Tijerina on 01-12-2022 Basophils/100 WBC (Bld) 0.9 % . [facility] Blood anisocytosis detection Ordered By: Taylor Tijerina on 01-12-2022 Anisocytosis Ql (Bld) Moderate [facility] Blood hemoglobin measurement (mass/volume)Ordered By: Taylor Tijerina on 01-12-2022 Hemoglobin (Bld) [Mass/Vol] 8.2 g/dL 11.8-15.4 [facility] Blood leukocytes automated c ount (number/volume)Ordered By: Taylor Tijerina on 01-12-2022 WBC (Bld) [#/Vol] 6.0 10*3/uL 4.5-11.0 [facility] Blood polychromasia detectio n by light microscopyOrdered By: Taylor Tijerina on 01-12-2022 Polychromasia LM Ql (Bld) Slight [facility] Body fluid albumin measureme nt (mass/volume)Ordered By: Taylor Tijerina on 01-12-2022 Albumin (Body fld) [Mass/Vol] 2.9 g/dL 3.2-5.[address] [facility] [address] biopsyOrdered By: Taylor Trammell on 01-12-2022 Transferrin [Mass/Vol] 479 mg/dL 180-380 [facility] Creatinine and Glomerular fi ltration rate.predicted panel (S/P/Bld)Ordered By: Taylor Tijerina on 01-12-2022 Creatinine [Mass/Vol] 0.76 mg/dL 0.44-1.03 [facility] Eosinophils Auto (Bld) [#/Vo l]Ordered By: Taylor Tijerina on 01-12-2022 Eosinophils (Bld) [#/Vol] 0.1 10*3/uL 0.0-0.45 [facility] Eosinophils/100 WBC Auto (Bl d)Ordered By: Taylor Tijerina on 01-12-2022 Eosinophils/100 WBC (Bld) 1.3 % . [facility] Erythrocyte distribution wid th Auto (RBC) [Ratio]Ordered By: Taylor Tijerina on 01-12-2022 Erythrocyte distribution width (RBC) [Ratio] 22.4 % 11.9-15.3 [facility] Erythrocyte sedimentation ra te by Photometric methodOrdered By: Taylor Tijerina on 01-12-2022 ESR Photometric method (Bld) [Velocity] 21 mm/hr 0-29 [facility] Estimated glomerular filtrat ion rate (GFR) non- AmericanOrdered By: Taylor Tijerina on 01-12-2022 GFR/1.73 sq M.predicted among non-blacks MDRD (S/P/Bld) [Vol rate/Area] > 60 mL/Min [facility] Ferritin [Mass/volume] in Se rum or PlasmaOrdered By: Taylor Tijerina on 01-12-2022 Ferritin [Mass/Vol] 10.8 ng/mL 11-306.8 [facility] Folate [Mass/volume] in Seru m or PlasmaOrdered By: Taylor Tijerina on 01-12-2022 Folate [Mass/Vol] ng/mL >5.9 [facility] Comment on above: Folate reference ran ge: >5.9 ng/ml The WHO technical consultation on folate and vitamin b12 deficiencies has determined that folate concentrations less than 4 ng/ml are considered deficient. Folate reference ran ge: >5.9 ng/mlThe WHO technical consultation on folate and vitamin [id number] has determined that folate concentrations lessthan 4 ng/ml are considered deficient. Globulin Calc (S) [Mass/Vol] Ordered By: Taylor Tijerina on 01-12-2022 Globulin (S) [Mass/Vol] 3.1 g/dL [facility] Hematocrit Auto (Bld) [Volum e fraction]Ordered By: Taylor Tijerina on 01-12-2022 Hematocrit (Bld) [Volume fraction] 27.4 % 34.0-46.4 [facility] Hypochromia detectionOrdered By: Taylor Tijerina on 01-12-2022 Hypochromia Ql (Bld) Moderate [facility] IgA [Mass/volume] in Serum o r PlasmaOrdered By: Taylor Tijerina on 01-12-2022 IgA [Mass/Vol] 206 mg/dL 64-422 [facility] IgG [Mass/volume] in Serum o r PlasmaOrdered By: Taylor Tijerina on 01-12-2022 IgG [Mass/Vol] 1070 mg/dL 586-1602 [facility] IgM [Mass/volume] in Serum o r PlasmaOrdered By: Taylor Tijerina on 01-12-2022 IgM [Mass/Vol] 166 mg/dL 26-217 [facility] Comment on above: Performed at: [address] [id number] Network Control Supervisor: Carlos Mcintyre PhD, Phone: [phone] Performed at: [address] [id number] Director: Carlos Mcintyre PhD, Phone: [phone] Immunoglobulin light chains. kappa.free [Mass/volume] in SerumOrdered By: Taylor Tijerina on 01-12-2022 Immunoglobulin light chains.kappa.free (S) [Mass/Vol] 44.4 mg/L 3.3-19.4 [facility] Immunoglobulin light chains. kappa.free/Immunoglobulin light chains.lambda.free [MassOrdered By: Taylor Tijerina on 01-12-2022 Immunoglobulin light chains.kappa.free/Immun oglobulin light chains.lambda.free (S) [Mass ratio] 1.60 0.26-1.65 [facility] Comment on above: Performed at: [address] [id number] Network Control Supervisor: Carlos Mcintyre PhD, Phone: [phone] Performed at: [facility] [employer] [address] [id number] Director: Carlos Mcintyre PhD, Phone: [phone] Immunoglobulin light chains. lambda.free [Mass/volume] in Serum or PlasmaOrdered By: Taylor Tijerina on 01-12-2022 Immunoglobulin light chains.lambda.free [Mass/Vol] 27.7 mg/L 5.7-26.3 [facility] Iron [Mass/volume] in Serum or PlasmaOrdered By: Taylor Tijerina on 01-12-2022 Iron [Mass/Vol] 10 ug/dL 40-150 [facility] Iron binding capacity [Mass/ volume] in Serum or PlasmaOrdered By: Taylor Tijerina on 01-12-2022 Iron binding capacity [Mass/Vol] 671 ug/dL 255-450 [facility] Iron saturation [Mass Fracti on] in Serum or PlasmaOrdered By: Taylor Tijerina on 01-12-2022 Iron saturation [Mass fraction] 1.0 % 20-50 [facility] Laboratory - Chemistry and C hemistry - challengeOrdered By: Taylor Tijerina on 01-12-2022 Cobalamin (Vitamin B12) [Mass/Vol] 700 pg/mL 180-914 [facility] Laboratory - Hematology and Cell countsOrdered By: Taylor Tijerina on 01-12-2022 Nucleated RBC/100 WBC (Bld) [Ratio] 0.2 % 0-0.5 [facility] Lymphocytes Auto (Bld) [#/Vo l]Ordered By: Taylor Tijerina on 01-12-2022 Lymphocytes (Bld) [#/Vol] 1.1 10*3/uL 1.00-4.8 [facility] Lymphocytes/100 WBC Auto (Bl d)Ordered By: Taylor Tijerina on 01-12-2022 Lymphocytes/100 WBC (Bld) 17.7 % . [facility] Lymphocytes/100 WBC (Bld) 25 % 18-42 [facility] MCH Auto (RBC) [Entitic mass ]Ordered By: Taylor Tijerina on 01-12-2022 MCH (RBC) [Entitic mass] 18.6 pg 24.7-34.3 [facility] MCHC Auto (RBC) [Mass/Vol]Or dered By: Taylro Tijerina on 01-12-2022 MCHC (RBC) [Mass/Vol] 29.8 g/dL 32.0-35.0 [facility] MCV Auto (RBC) [Entitic vol] Ordered By: Taylor Tijerina on 01-12-2022 MCV (RBC) [Entitic vol] 62.5 fL 80-100 [facility] Macrocytes detectionOrdered By: Taylor Tijerina on 01-12-2022 Macrocytes Ql (Bld) Slight [facility] Monocyte %Ordered By: Taylor hogan on 01-12-2022 Monocytes/100 WBC (Bld) 1 % 1-3 [facility] Monocytes Auto (Bld) [#/Vol] Ordered By: Taylor Tijerina on 01-12-2022 Monocytes (Bld) [#/Vol] 0.5 10*3/uL 0.0-0.8 [facility] Monocytes/100 WBC Auto (Bld) Ordered By: Taylor Tijerina on 01-12-2022 Monocytes/100 WBC (Bld) 8.4 % . [facility] Monocytes/100 WBC Manual cnt (Bld)Ordered By: Taylor Lilliana on 01-12-2022 Monocytes/100 WBC (Bld) 6 % 2-11 [facility] Neutrophils Auto (Bld) [#/Vo l]Ordered By: Taylor Chengpranay on 01-12-2022 Neutrophils (Bld) [#/Vol] 4.3 10*3/uL 1.8-7.7 [facility] Neutrophils/100 WBC Auto (Bl d)Ordered By: Taylor Lilliana on 01-12-2022 Neutrophils/100 WBC (Bld) 71.7 % . [facility] No Panel InformationOrdered By: [facility] Prosperpranay on 01-12-2022 Absolute Reticulocyte Count 0.213 10*6/uL 0.024-0.084 [facility] Estimated GFR () > 60 mL/Min [facility] Comment on above: GFR estimated refere nce range: According to KDOQI guidelines, <60 ml/min/1.73m2 is sufficient to diagnose a patient with chronic kidney disease. Microcytosis Slight [facility] Percent Reticulocyte Count 4.9 % 0.5-1.5 [facility] Pharmacy Creatinine Clearance (Chem 60.82 [facility] Platelet Estimate Normal Normal [facility] Platelet Morphology Comment Normal Normal [facility] Protein Electrophoresis M-Brooks Comment: g/dL Not Observed [facility] Comment on above: SPE shows asymmetric al gamma. Protein Electrophoresis Note See comment . [facility] Comment on above: Protein electrophore sis scan will follow via computer, mail, or road monkey delivery. Performed at: [facility] [id number] Network Control Supervisor: Carlos Mcintyre PhD, Phone: [phone] Protein electrophore sis scan will follow via computer,mail, or road monkey delivery.Performed at: [facility] [facility] [id number] Director: Carlos Mcintyre PhD, Phone: [phone] Serum Immunofixation Comment: . [facility] Comment on above: Presence of monoclon al [...] volume (Bld) [Entitic vol] 8.4 fL 6.3-10.7 [facility] Platelets Auto (Bld) [#/Vol] Ordered By: Taylor Tijerina on 01-12-2022 Platelets (Bld) [#/Vol] 386 10*3/uL 150-450 [facility] Protein [Mass/volume] in Ser um or PlasmaOrdered By: Taylor Tijerina on 01-12-2022 Protein [Mass/Vol] 6.0 g/dL 6.1-7.9 [facility] Protein [Mass/Vol] 6.4 g/dL 6.0-8.5 [facility] RBC Auto (Bld) [#/Vol]Ordere d By: Taylor Tijerina on 01-12-2022 RBC (Bld) [#/Vol] 4.38 10*6/uL 3.60-5.00 [facility] RBC morphologyOrdered By: Ana Laura Tijerina on 01-12-2022 RBC morphology finding Nom (Bld) N/A [facility] Segmented neutrophils/100 WB C Manual cnt (Bld)Ordered By: Taylor Tijerina on 01-12-2022 Segmented neutrophils/100 WBC (Bld) 68 % 50-70 [facility] Serum globulin measurement ( mass/volume)Ordered By: Taylor Tijerina on 01-12-2022 Globulin (S) [Mass/Vol] 3.3 g/dL 2.2-3.9 [facility] Serum or plasma alanine terry otransferase measurement without P-5'-P (enzymatic activiOrdered By: Taylor Tijerina on 01-12-2022 ALT No additional P-5'-P [Catalytic activity/Vol] 25 U/L 10-60 [facility] Serum or plasma albumin/glob ulin mass ratioOrdered By: Taylor Tijerina on 01-12-2022 Albumin/Globulin [Mass ratio] 0.9 {ratio} 0.7-1.7 [facility] Serum or plasma alkaline ariella sphatase measurement (enzymatic activity/volume)Ordered By: Taylor Tijerina on 01-12-2022 ALP [Catalytic activity/Vol] 52 U/L 32-92 [facility] Serum or plasma alpha 1 glob ulin measurement by electrophoresis (mass/volume)Ordered By: Taylor Tijerina on 01-12-2022 Alpha 1 globulin Elph [Mass/Vol] 0.3 g/dL 0.0-0.4 [facility] Serum or plasma alpha 2 glob ulin measurement by electrophoresis (mass/volume)Ordered By: Taylor Tijerina on 01-12-2022 Alpha 2 globulin Elph [Mass/Vol] 0.8 g/dL 0.4-1.0 [facility] Serum or plasma anion gap de terminationOrdered By: Taylor Tijerina on 01-12-2022 Anion gap [Moles/Vol] 16.3 mmol/L 6.0-15.0 [facility] Serum or plasma aspartate am inotransferase measurement (enzymatic activity/volume)Ordered By: Taylor Tijerina on 01-12-2022 AST [Catalytic activity/Vol] 42 U/L 10-42 [facility] Serum or plasma beta globuli n measurement by electrophoresis (mass/volume)Ordered By: Taylor Tijerina on 01-12-2022 Beta globulin Elph [Mass/Vol] 1.1 g/dL 0.7-1.3 [facility] Serum or plasma calcium jake urement (mass/volume)Ordered By: Taylor Tijerina on 01-12-2022 Calcium [Mass/Vol] 8.8 mg/dL 8.2-10.2 [facility] Serum or plasma chloride jie surement (moles/volume)Ordered By: Taylor Tijerina on 01-12-2022 Chloride [Moles/Vol] 84 mmol/L 95-114 [facility] Serum or plasma erythropoiet in (EPO) measurement (units/volume)Ordered By: Taylor Tijerina on 01-12-2022 Erythropoietin (EPO) Qn 745.9 mIU/mL 2.6-18.5 [facility] Comment on above: [employer] 800 Immunoassay System Values obtained with different assay methods or kits cannot be used interchangeably. Results cannot be interpreted as absolute evidence of the presence or absence of malignant disease. Performed at: [id number] [place], [place] [id number] Network Control Supervisor: Carlos Mcintyre PhD, Phone: [phone] [employer] 800 Immunoassay SystemValues obtained with different assay methods or kits cannotbe used interchangeably. Results cannot be interpreted asabsolute evidence of the presence or absence of malignantdisease.Performed at: [facility] [employer] [id number] [place], [place] [id number] Director: Carlos Mcintyre PhD, Phone: [phone] Serum or plasma gamma globul in measurement by electrophoresis (mass/volume)Ordered By: Taylor Tijerina on 01-12-2022 Gamma globulin Elph [Mass/Vol] 1.1 g/dL 0.4-1.8 [facility] Serum or plasma glucose jake urement (mass/volume)Ordered By: Taylor Tijerina on 01-12-2022 Glucose [Mass/Vol] 106 mg/dL 70-100 [facility] Comment on above: ADA recommended refe rence [...] on 01-12-2022 Potassium [Moles/Vol] 4.0 mmol/L 3.5-5.1 [facility] Serum or plasma sodium measu rement (moles/volume)Ordered By: Taylor Tijerina on 01-12-2022 Sodium [Moles/Vol] 125 mmol/L 136-146 [facility] Serum or plasma total biliru bin measurement (mass/volume)Ordered By: Taylor Tijerina on 01-12-2022 Bilirubin [Mass/Vol] 1.0 mg/dL 0.3-1.2 [facility] Serum or plasma total carbon dioxide measurement (moles/volume)Ordered By: Taylor Lilliana on 01-12-2022 CO2 [Moles/Vol] 28.7 mmol/L 22.0-30.0 [facility] Serum or plasma urea nitroge n measurement (mass/volume)Ordered By: Taylor Chengpranay on 01-12-2022 Urea nitrogen [Mass/Vol] 9 mg/dL 9 [facility] BNPon 11-24-2021 Natriuretic peptide B (Bld) [Mass/Vol] 591.0 pg/mL Normal <=900.0 [facility] Comment on above: Performed By: #### C TIFFANY, BNP #### [facility] [address] [place] [address] Dr. Good Montiel CBC AUTO DIFFon 11-24-2021 BASO # 0.1 103/ul Normal 0.0-0.1 [facility] Comment on above: Performed By: #### C TIFFANY CMADM #### [facility] [address] [place] [address] Dr. Good Montiel Basophils/100 WBC (Bld) 0.7 % Normal 0.2-2.0 [facility] Comment on above: Performed By: #### C TIFFANY CMADM #### [facility] [address] [place] [address] Dr. Good Montiel EO # 0.2 103/ul Normal 0.0-0.7 [facility] Comment on above: Performed By: #### C TIFFANY CMADM #### [facility] [address] [place] [address] Dr. Good Montiel Eosinophils/100 WBC (Bld) 2.4 % Normal 0.9-7.0 [facility] Comment on above: Performed By: #### C TIFFANY CMADM #### [facility] [address] [place] [address] Dr. Good Montiel Erythrocyte distribution width (RBC) [Ratio] 19.1 % Critically high 11.0-15.0 [facility] Comment on above: Performed By: #### C TIFFANY CMADM #### [facility] [address] [place], [place] [id number] Dr. Good Montiel Hematocrit (Bld) [Volume fraction] 25.5 % Critically low 36.0-48.0 [facility] Comment on above: Performed By: #### C TIFFANY, CMADM #### [facility] [address] [place] [address] Dr. Good Montiel Hemoglobin (Bld) [Mass/Vol] 7.4 g/dL Critically low 12.0-16.0 [facility] Comment on above: Performed By: #### C MP, CMADM #### [facility] [address] [place] [address] Dr. Good Montiel IG # 0.05 10e3/ul Critically high 0.00-0.03 [facility] Comment on above: Performed By: #### C TIFFANY, CMADM #### [facility] [address] [place] [address] Dr. Good Montiel IG % 0.6 % Critically high 0.0-0.5 [facility] Comment on above: Performed By: #### C TIFFANY, CMADM #### [facility] [address] [place] [address] Dr. Good Montiel LYMPH # 1.7 103/ul Normal 1.2-3.8 [facility] Comment on above: Performed By: #### C TIFFANY, CMADM #### [facility] [address] [place] [address] Dr. Good Montiel Lymphocytes/100 WBC (Bld) 20.6 % Normal 20.5-60.0 [facility] Comment on above: Performed By: #### C TIFFANY, CMADM #### [facility] [address] [place] [address] Dr. Good Montiel MANUAL DIFF REQ NO Normal [facility] Comment on above: Performed By: #### C TIFFANY, CMADM #### [facility] [address] [place] [address] Dr. Good Montiel MCH (RBC) [Entitic mass] 18.9 pg Critically low 26.7-34.0 [facility] Comment on above: Performed By: #### C TIFFANY, CMADM #### [facility] [address] [address] [address] Good Montiel MCHC (RBC) [Mass/Vol] 29.0 g/dL Critically low 29.9-35.2 [facility] Comment on above: Performed By: #### C MP, CMADM #### [facility] [address] [address] [address] Good Montiel MCV (RBC) [Entitic vol] 65.2 fL Critically low 81.0-99. 0 [facility] Comment on above: Performed By: #### C MP, CMADM #### [facility] [address] [address] [address] Good Montiel MONO # 0.8 103/ul Normal 0.3-0.8 [facility] Comment on above: Performed By: #### C MP, CMADM #### [facility] [address] [address] [address] Good Montiel Monocytes/100 WBC (Bld) 9.4 % Normal 1.7-12.0 [facility] Comment on above: Performed By: #### C MP, CMADM #### [facility] [address] [address] [address] Good Montiel NEUT # 5.5 103/ul Normal 1.4-6.5 [facility] Comment on above: Performed By: #### C MP, CMADM #### [facility] [address] [address] [address] Good Montiel Neutrophils/100 WBC (Bld) 66.3 % Normal 43.0-75.0 [facility] Comment on above: Performed By: #### C MP, CMADM #### [facility] [address] [address] [address] Good Montiel Platelet mean volume (Bld) [Entitic vol] 9.1 fL Critically low 9.5-13.5 [facility] Comment on above: Performed By: #### C MP, CMADM #### [facility] [address] [address] [address] Good Montiel PLT 431 103/ul Normal 150-450 [facility] Comment on above: Performed By: #### C MP, CMADM #### [facility] [address] [address] [address] Good Montiel RBC 3.91 106/ul Critically low 4.20-5.40 [facility] Comment on above: Performed By: #### C MP, CMADM #### [facility] [address] [address] [address] Good Montiel WBC 8.3 103/ul Normal 4.0-11.0 [facility] Comment on above: Performed By: #### C TIFFANY, CMADM #### [facility] [address] [address] [address] Good Montiel Covid-19 PCR ([facility])on 11-13 SARS-CoV-2 (COVID-19) RNA FELECIA+probe Ql (Unsp spec) Not detected Normal NOT DETECTED [facility] Comment on above: Result Comment: When [...] for this test is supported by the Promotion Officer of Health and Human Service's declaration that [...] used). Performed By: #### M MA2 #### [facility] [address] [address] [address] Good Montiel PROF 14(COMP METB)on 022 Albumin [Mass/Vol] 3.1 g/dL Critically low 3.4-5.0 [facility] Comment on above: Performed By: #### C TIFFANY, BNP #### [facility] [address] [place] [address] Dr. Good Montiel Albumin/Globulin [Mass ratio] 0.9 {ratio} Normal [facility] Comment on above: Performed By: #### C MP, BNP #### [facility] [address] [address] [address] Good Montiel ALP [Catalytic activity/Vol] 60 U/L Normal 46-116 [facility] Comment on above: Performed By: #### C MP, BNP #### [facility] [address] [address] [address] Good Montiel ALT [Catalytic activity/Vol] 30 U/L Normal 14-59 [facility] Comment on above: Performed By: #### C MP, BNP #### [facility] [address] [place] [address] Dr. Good Montiel Anion gap [Moles/Vol] 10.1 mmol/L Normal [facility] Comment on above: Performed By: #### C MP, BNP #### [facility] [address] [place] [address] Dr. Good Montiel AST [Catalytic activity/Vol] 32 U/L Normal 15-37 [facility] Comment on above: Performed By: #### C MP, BNP #### [facility] [address] [place] [address] Dr. Good Montiel Bilirubin [Mass/Vol] 0.7 mg/dL Normal 0.2-1.0 [facility] Comment on above: Performed By: #### C MP, BNP #### [facility] [address] [address] [address] Good Montiel Calcium [Mass/Vol] 8.7 mg/dL Normal 8.5-10.1 [facility] Comment on above: Performed By: #### C MP, BNP #### [facility] [address] [place] [address] Dr. Good Montiel Chloride [Moles/Vol] 93 mmol/L Critically low 98-107 [facility] Comment on above: Performed By: #### C MP, BNP #### [facility] [address] [place] [address] Dr. Good Montiel CO2 [Moles/Vol] 27.5 mmol/L Normal 21.0-32.0 [facility] Comment on above: Performed By: #### C MP, BNP #### [facility] [address] [address] [address] Good Montiel Creatinine [Mass/Vol] 0.80 mg/dL Normal 0.55-1.02 [facility] Comment on above: Performed By: #### C MP, BNP #### [facility] [address] [place] [address] Dr. Good Montiel EGFR-AF NIGERIEN >60 Normal >=60 [facility] Comment on above: Performed By: #### C MP, BNP #### [facility] [address] [place] [address] Dr. Good Montiel EGFR-NON AF NIGERIEN >60 Normal >=60 [facility] Comment on above: Performed By: #### C MP, BNP #### [facility] [address] [place] [address] Dr. Good Montiel Globulin (S) [Mass/Vol] 3.5 g/dL Normal [facility] Comment on above: Performed By: #### C MP, BNP #### [facility] [address] [place] [address] Dr. Good Montiel Glucose [Mass/Vol] 146 mg/dL Critically high 74-106 [facility] Comment on above: Performed By: #### C MP, BNP #### [facility] [address] [place] [address] Dr. Good Montiel Potassium [Moles/Vol] 3.6 mmol/L Normal 3.5-5.1 [facility] Comment on above: Performed By: #### C MP, BNP #### [facility] [address] [place] [address] Dr. Good Montiel Protein [Mass/Vol] 6.6 g/dL Normal 6.4-8.2 [facility] Comment on above: Performed By: #### C MP, BNP #### [facility] [address] [place], [place] [address] Dr. Good Montiel Sodium [Moles/Vol] 127 mmol/L Critically low 136-145 [facility] Comment on above: Performed By: #### C MP, BNP #### [facility] [address] [place], [place] [address] Dr. Good Montiel Urea nitrogen [Mass/Vol] 19.0 mg/dL Critically high 7.0-18.0 [facility] Comment on above: Performed By: #### C MP, BNP #### [facility] [address] [place], [place] [address] Dr. Good Montiel Urea nitrogen/Creatinine [Mass ratio] 23.8 mg/mg Normal [facility] Comment on above: Performed By: #### C MP, BNP #### [facility] [address] [place], [place] [address] Dr. Good Montiel XR CHEST 1 Von [...] by: KETAN ALVAREZ Date: 2021-11-24 00:[address] [facility] [address] LUNG CANCER SCREENINGon 0 11-10-2021 [...] ARIAN VARGAS Date: 2021-11-10 10:55 Normal [facility] MAMM SCREEN 3D [place] CADon 11-10-2021 MG MAMM SCREEN 3D [place] CAD Patient: NUVIA MARTIN Exam Date: 11/10/2021 : 1945 Gender:F Ordering : DR LATONYA JOSEPH PA Admission #: [id number] Family : Order #: [id number] CLICK HERE TO VIEW EXAM RADIOLOGY REPORT [...] breast cancer at age 62. LOCATION: [facility] BREAST COMPOSITION: Scattered areas fibroglandular density. [...] Vargas MD on 11/12/2021 at 08:03 Normal [facility] XR DEXA BONE DENSITYon 11-10 XR [...] by: ARIAN VARGAS Date: 2021-11-10 17:06 Normal [facility] Comprehensive Metabolic Pane bing 10-01-2021 Albumin [Mass/Vol] 3.9 g/dL Normal 3.6-5.1 [facility] Comment on above: Performed By: #### C MP #### [facility] [address] [place], [place] [id number] Albumin/Globulin [Mass ratio] 1.4 {ratio} Normal 1.0-2.5 [facility] Comment on above: Performed By: #### C MP #### [facility] [address] [place], [place] [id number] ALP [Catalytic activity/Vol] 51 U/L Normal 35-119 [facility] Comment on above: Performed By: #### C MP #### [facility] [address] [place], [place] [id number] ALT [Catalytic activity/Vol] 15 U/L Normal 6-33 [facility] Comment on above: Result Comment: 04/15 Female reference range changed. Performed By: #### C MP #### [facility] [address] [place], [place] [id number] Anion gap [Moles/Vol] 18 mmol/L Normal 12-20 [facility] Comment on above: Result Comment: Effe ctive 05/21/2019 reference range changed. Performed By: #### C MP #### [facility] [address] [place], [place] [id number] AST [Catalytic activity/Vol] 20 U/L Normal 9-34 [facility] Comment on above: Performed By: #### C MP #### [facility] [address] [place], [place] [id number] BUN/CREA 18 Ratio Normal 6-22 [facility] Comment on above: Performed By: #### C MP #### [facility] [address] [place], [place] [id number] Calcium [Mass/Vol] 9.8 mg/dL Normal 8.6-10.2 [facility] Comment on above: Performed By: #### C MP #### [facility] [address] [place], [place] [id number] Chloride [Moles/Vol] 88 mmol/L Low 98-107 [facility] Comment on above: Performed By: #### C MP #### [facility] [address] [place], [place] [id number] CO2 [Moles/Vol] 23 mmol/L Normal 20-31 [facility] Comment on above: Performed By: #### C MP #### [facility] [address] [place], [place] [id number] Creatinine [Mass/Vol] 0.9 mg/dL Normal 0.6-1.4 [facility] Comment on above: Performed By: #### C MP #### [facility] [address] [place], [place] [id number] eGFRAA 77 mL/min/1.73m2 Normal >60 [facility] Comment on above: Performed By: #### C MP #### [facility] [address] [place], [place] [id number] eGFRNAA 64 mL/min/1.73m2 Normal >60 [facility] Comment on above: Performed By: #### C MP #### [facility] [address] [place], [place] [id number] Globulin (S) [Mass/Vol] 2.7 g/dL Normal 1.9-3.7 [facility] Comment on above: Performed By: #### C MP #### [facility] [address] [place], [place] [id number] Glucose [Mass/Vol] 151 mg/dL High 65-99 [facility] Comment on above: Result Comment: For FASTING Glucose --- ADA reference ranges: Normal 65-99 mg/dl Prediabetes 100-125 Diabetes >/= 126 Performed By: #### C MP #### [facility] [address] [place], [place] [id number] Potassium [Moles/Vol] 4.5 mmol/L Normal 3.5-5.5 [facility] Comment on above: Performed By: #### C MP #### [facility] [address] [place], [place] [id number] Protein [Mass/Vol] 6.6 g/dL Normal 6.1-8.1 [facility] Comment on above: Performed By: #### C MP #### [facility] [address] [place], [place] [id number] Sodium [Moles/Vol] 125 mmol/L Low 135-146 [facility] Comment on above: Performed By: #### C MP #### [facility] [address] [place], [place] [id number] TBIL <0.3 Normal [facility] Comment on above: Performed By: #### C MP #### [facility] [address] [place], [place] [id number] Urea nitrogen [Mass/Vol] 16 mg/dL Normal 7-25 [facility] Comment on above: Performed By: #### C MP #### [facility] [address] [place], [place] [id number] VITAMIN B6on 08-20-2021 Vitamin B6 50.1 ug/L Critically high 2.0-32.8 [facility] Comment on above: Result Comment: Ef fective August 17, 2021 Vitamin B6 reference interval will be changing to: 3.4 - 65.2 ug/L Deficiency: < 3.4 Marginal: 3.4 - 5.1 Adequate: > 5.1 Performed By: #### V ITAB6 ####[facility] [address] [place], [place] [address]OcDr. Good Montiel METHYLMALONIC ACID (MMA)on 0 08-18-2021 Methylmalonic Acid, Serum 327 nmol/L Normal 0-378 [facility] Comment on above: Performed By: #### M MA2 #### [facility] [address] [address] [address] Good Montiel IMMUNOFIX ELEC, PROTEIN ELEC URINEon 08-14-2021 Albumin, U 55.3 % Normal [facility] Comment on above: Performed By: #### C TIFFANY, CMADM #### [facility] [address] [address] [address] Good Montiel Mumur-4-Eoexgnqr, U 3.9 % Normal [facility] Comment on above: Performed By: #### C TIFFANY, CMADM #### [facility] [address] [address] [address] Good Montiel Iqpoy-3-Lufhhwmk, U 6.7 % Normal [facility] Comment on above: Performed By: #### C TIFFANY, CMADM #### [facility] [address] [address] [address] Good Montiel Beta Globulin, U 12.9 % Normal [facility] Comment on above: Performed By: #### C TIFFANY, CMADM #### [facility] [address] [address] [address] Good Montiel Gamma Globulin, U 21.1 % Normal [facility] Comment on above: Performed By: #### C TIFFANY, CMADM #### [facility] [address] [address] [address] Good Montiel Immunofixation Result, Urine Comment: Normal [facility] Comment on above: Result Comment: Pres ence of monoclonal protein is unclear at this time. Suggest repeat in 3 to 6 months if clinically indicated. Performed By: #### C TIFFANY, CMADM #### [facility] [address] [address] [address] Good Montiel M-Brooks, % Not Observed Normal Not Observed [facility] Comment on above: Performed By: #### C MP, CMADM #### [facility] [address] [place] [address] Dr. Good Montiel Note: Comment Normal [facility] Comment on above: Result Comment: Prot ein electrophoresis scan will follow via computer, mail, or road monkey delivery. Performed By: #### C SERAFIN ALLEN #### [facility] [address] [place] [address] Dr. Good Montiel PDF . Normal [facility] Comment on above: Performed By: #### C SERAFIN ALLEN #### [facility] [address] [place] [address] Dr. Good Montiel Protein (U) [Mass/Vol] 12.2 mg/dL Normal Not Estab. Th [facility] Comment on above: Performed By: #### C SERAFIN ALLEN #### [facility] [address] [place] [address] Dr. Good Montiel WEST NILE VIRUS AB (IGG AND IGM)on 08-14-2021 West Nile Virus, IgG Negative Normal Negative [facility] Comment on above: Result Comment: No d etectable West Nile Virus IgG Antibody. If a recent infection is suspected, another specimen should be submitted for testing within 7-14 days. Performed By: #### C SERAFIN ALLEN #### [facility] [address] [place] [address] Dr. Good Montiel West Nile Virus, IgM Negative Normal Negative [facility] Comment on above: Result Comment: No d etectable West Nile Virus IgM Antibody. If a recent infection is suspected, another specimen should be submitted for testing within 7-14 days. Performed By: #### C SERAFIN ALLEN #### [facility] [address] [place] [address] Dr. Good Montiel JAY EIA W/REFLEX 5 BIOMARKER Son 08-13-2021 JAY Direct Negative Normal Negative [facility] Comment on above: Performed By: #### A NARF ####[facility] [address] [address]. Good Montiel C-REACTIVE PROTEINS (HS)on 0 08-13-2021 C-Reactive Protein, Cardiac 0.55 mg/L Normal 0.00-3.00 [facility] Comment on above: Result Comment: Rela tive Risk for Future Cardiovascular Event Low <1.00 Average 1.00 - 3.00 High >3.00 Performed By: #### C [facility] ####[facility] [address] [address]Dr. Good Montiel HOMOCYSTEINEon 08-13-2021 Homocyst(e)ine, Plasma 15.3 umol/L Normal 0.0-19.2 [facility] Comment on above: Performed By: #### H [facility] #### [facility] [address] [address] [address] Good Montiel IMMUNOFIXATION ELEC, PROTEIN ELECon 08-13-2021 Albumin [Mass/Vol] 3.7 g/dL Normal 2.9-4.4 [facility] Comment on above: Performed By: #### M MA2 #### [facility] [address] [address] [address] Good Montiel Albumin/Globulin [Mass ratio] 1.1 {ratio} Normal 0.7-1.7 [facility] Comment on above: Performed By: #### Hakeem MA2 #### [facility] [address] [address] [address] Good Montiel Dzvsu-5-Qkrxxzod 0.2 g/dL Normal 0.0-0.4 [facility] Comment on above: Performed By: #### Hakeem MA2 #### [facility] [address] [address] [address] Good Montiel Czvdl-2-Mnnmixvt 0.9 g/dL Normal 0.4-1.0 [facility] Comment on above: Performed By: #### Hakeem MA2 #### [facility] [address] [address] [address] Good Montiel Beta Globulin 1.2 g/dL Normal 0.7-1.3 [facility] Comment on above: Performed By: #### M MA2 #### [facility] [address] [address] [address] Good Montiel Gamma Globulin 1.2 g/dL Normal 0.4-1.8 [facility] Comment on above: Performed By: #### M MA2 #### [facility] [address] [address] [address] Good Montiel Globulin (S) [Mass/Vol] 3.4 g/dL Normal 2.2-3.9 [facility] Comment on above: Performed By: #### M MA2 #### [facility] [address] [address] [address] Good Montiel Immunofixation Result, Serum Comment: Normal [facility] Comment on above: Result Comment: Pres ence of monoclonal protein is unclear at this time. Suggest repeat in 3 to 6 months if clinically indicated. Performed By: #### M MA2 #### [facility] [address] [address] [address] Good Montiel Immunoglobulin A, Qn, Serum 269 mg/dL Normal 64-422 [facility] Comment on above: Performed By: #### Hakeem MA2 #### [facility] [address] [address] [address] Good Montiel Immunoglobulin G, Qn, Serum 1056 mg/dL Normal 586-1602 [facility] Comment on above: Performed By: #### Hakeem MA2 #### [facility] [address] [address] [address] Good Montiel Immunoglobulin M, Qn, Serum 201 mg/dL Normal 26-217 [facility] Comment on above: Performed By: #### Hakeem MA2 #### [facility] [address] [address] [address] Good Montiel M-Brooks Comment: Normal Not Observed [facility] Comment on above: Result Comment: ASYM METRICAL GAMMA Performed By: #### M MA2 #### [facility] [address] [address] [address] Good Montiel PDF . Normal [facility] Comment on above: Performed By: #### M MA2 #### [facility] [address] [place] [address] Dr. Good Montiel Please note: Comment Normal [facility] Comment on above: Result Comment: Prot ein electrophoresis scan will follow via computer, mail, or road monkey delivery. Performed By: #### M MA2 #### [facility] [address] [address] [address] Good Montiel Protein [Mass/Vol] 7.1 g/dL Normal 6.0-8.5 [facility] Comment on above: Performed By: #### M MA2 #### [facility] [address] [address] [address] Good Montiel LYME DISEASE AB EIA W REFLEX on 08-13-2021 Lyme Total Antibody,EIA Negative Normal Negative [facility] Comment on above: Result Comment: Lyme Antibody Negative No laboratory evidence of infection with B. burgdorferi (Lyme disease). Negative results may occur in patients recently infected (greater than or equal to 14 days) with B. burgdorferi. If recent infection is suspected, repeat testing on a new sample collected in 7 to 14 days is recommended. Performed By: #### L YMA ####[facility] [address] [address]Dr. Good Montiel RHEUMATOID FACTORon 08-14-19 22 RA Latex Turbid. 10.1 IU/mL Normal <14.0 [facility] Comment on above: Performed By: #### SERAFIN Portillo MP #### [facility] [address] [address] [address] Good Montiel RPR QUANTon 08-13-2021 Rapid Plasma Reagin, Quant Non-Reactive Normal NonRea<1:1 [facility] Comment on above: Result Comment: Plea se Note: This test does not meet current guidelines for screening and diagnosis of syphilis. This test is intended for following treatment response in patients being treated for syphilis infection. To screen for syphilis infection, a reflex cascade that includes both RPR and a treponema-specific assay should be utilized, such as Treponema pallidum (Syphilis) Screening Braxton (578244) or Rapid Plasma Reagin (RPR) Test With Reflex to Quantitative RPR and Confirmatory Treponema pallidum Antibodies (538237). Performed By: #### C SERAFIN ALLEN #### [facility] [address] [address] [address] Good Montiel FREE T4on 08-12-2021 Free T4 [Mass/Vol] 1.03 ng/dL Normal 0.78-2.19 [facility] Comment on above: Performed By: #### B 12FOL, FT4 ####[facility] [address] [address]Dr. Good Montiel SED RATE WESTERGRENon 2021 SED RATE 17 mm/hr Normal <=30 [facility] Comment on above: Performed By: #### C MP, CMADM #### [facility] [address] [address] [address] Good Montiel TSHon 08-12-2021 TSH 3.737 uIU/mL Normal 0.470-4.680 [facility] Comment on above: Performed By: #### T SH ####[facility] [address] [place], [place] [address]Dr. Good Montiel TSH RANGE SEE BELOW Normal [facility] Comment on above: Result Comment: <0.3 4 UIU/ml HYPERTHYROID 0.34-5.60 UIU/ml EUTHYROID >5.60 UIU/ml HYPOTHYROID Performed By: #### T SH ####[facility] [address] [place], [place] [address]Dr. Godo Montiel VIT B12 AND FOLATEon 022 Cobalamin (Vitamin B12) [Mass/Vol] 741.0 pg/mL Normal 239.0-931.0 [facility] Comment on above: Performed By: #### B 12FOL, FT4 ####[facility] [address] [address]Dr. Good Montiel FOLATE >20.00 Normal >=2.76 [facility] Comment on above: Performed By: #### B 12FOL, FT4 ####[facility] [address] [address]DrSmooth Montiel CBC AUTO DIFFon 06-10-2021 BASO # 0.1 103/ul Normal 0.0-0.1 [facility] Comment on above: Performed By: #### C BC ####[facility] [address] [id number]. Good Montiel Basophils/100 WBC (Bld) 0.7 % Normal 0.2-2.0 [facility] Comment on above: Performed By: #### C BC ####[facility] [address] [id number]. Good Montiel EO # 0.2 103/ul Normal 0.0-0.7 [facility] Comment on above: Performed By: #### C BC ####[facility] [address] [address]Dr. Good Montiel Eosinophils/100 WBC (Bld) 1.6 % Normal 0.9-7.0 [facility] Comment on above: Performed By: #### C BC ####[facility] [address] [place], [place] [address]Dr. Good Montiel Erythrocyte distribution width (RBC) [Ratio] 18.7 % Critically high 11.0-15.0 [facility] Comment on above: Performed By: #### C BC ####[facility] [address] [id number]. Good Montiel Hematocrit (Bld) [Volume fraction] 29.6 % Critically low 36.0-48.0 [facility] Comment on above: Performed By: #### C BC ####[facility] [address] [id number]. Good Montiel Hemoglobin (Bld) [Mass/Vol] 9.1 g/dL Critically low 12.0-16.0 [facility] Comment on above: Performed By: #### C BC ####[facility] [address] [id number]. Good Montiel IG # 0.06 10e3/ul Critically high 0.00-0.03 [facility] Comment on above: Performed By: #### C BC ####[facility] [address] [id number]. Good Montiel IG % 0.6 % Critically high 0.0-0.5 [facility] Comment on above: Performed By: #### C BC ####[facility] [address] [id number]. Good Montiel LYMPH # 2.0 103/ul Normal 1.2-3.8 [facility] Comment on above: Performed By: #### C BC ####[facility] [address] [place], [place] [address]Lu. Good Montiel Lymphocytes/100 WBC (Bld) 18.5 % Critically low 20.5-60.0 [facility] Comment on above: Performed By: #### C BC ####[facility] [address] [id number]. Rejoo Montiel MANUAL DIFF REQ NO Normal [facility] Comment on above: Performed By: #### C BC ####[facility] [address] [id number]. Good Dinesh MCH (RBC) [Entitic mass] 21.8 pg Critically low 26.7-34.0 [facility] Comment on above: Performed By: #### C BC ####[facility] [address] [id number]. Good Montiel MCHC (RBC) [Mass/Vol] 30.7 g/dL Normal 29.9-35.2 [facility] Comment on above: Performed By: #### C BC ####[facility] [address] [id number]. Good Dinesh MCV (RBC) [Entitic vol] 71.0 fL Critically low 81.0-99. 0 [facility] Comment on above: Performed By: #### C BC ####[facility] [address] [id number]. Good Dinesh MONO # 0.8 103/ul Normal 0.3-0.8 [facility] Comment on above: Performed By: #### C BC ####[facility] [address] [place] [id number]. Rejoo Montiel Monocytes/100 WBC (Bld) 7.0 % Normal 1.7-12.0 [facility] Comment on above: Performed By: #### C BC ####[facility] [address] [place], [place] [address]Iz. Good Montiel NEUT # 7.6 103/ul Critically high 1.4-6.5 [facility] Comment on above: Performed By: #### C BC ####[facility] [address] [place], [place] [address]Ly. Good Montiel Neutrophils/100 WBC (Bld) 71.6 % Normal 43.0-75.0 [facility] Comment on above: Performed By: #### C BC ####[facility] [address] [place] [id number]. Good Montiel Platelet mean volume (Bld) [Entitic vol] 8.4 fL Critically low 9.5-13.5 [facility] Comment on above: Performed By: #### C BC ####[facility] [address] [place] [id number]. Rejoo Montiel PLT 442 103/ul Normal 150-450 [facility] Comment on above: Performed By: #### C BC ####[facility] [address] [place] [id number]. Good Montiel RBC 4.17 106/ul Critically low 4.20-5.40 [facility] Comment on above: Performed By: #### C BC ####[facility] [address] [place] [id number]. Good Montiel WBC 10.7 103/ul Normal 4.0-11.0 [facility] Comment on above: Performed By: #### C BC ####[facility] [address] [id number]. Good Montiel CRPon 06-10-2021 CRP [Mass/Vol] mg/L Normal <=1.0 [facility] Comment on above: Performed By: #### M MA2 #### [facility] [address] [place], [place] [address] Dr. Good Montiel ER URINE PROFILEon 2 Bilirubin Ql (U) Negative Normal NEGATIVE The [facility] Comment on above: Performed By: #### E RUR ####[facility] [address] [place], [place] [address]Dr. Good Montiel Clarity (U) CLEAR Normal CLEAR [facility] Comment on above: Performed By: #### E RUR ####[facility] Yfpjqsp[address] [place], [place] [address]Dr. Good Montiel Color (U) YELLOW Normal YELLOW [facility] Comment on above: Performed By: #### E RUR ####[facility] [address] [place], [place] [address]Dr. Good Montiel ERUAHD A micrscopic examination will be performed if indicated. Normal [facility] Comment on above: Performed By: #### E RUR ####[facility] [address] [place], [place] [address]Dr. Rejoo Montiel Glucose Ql (U) Negative Normal NEGATIVE The [facility] Comment on above: Performed By: #### E RUR ####[facility] C[address]isyxpd[address] [place], [place] [address]Dr. Good Montiel Hemoglobin Ql (U) Negative Normal NEGATIVE [facility] Comment on above: Performed By: #### E RUR ####[facility] Eigsatfqsh[address] [place], [place] [address]Dr. Good Montiel Ketones Ql (U) Negative Normal NEGATIVE The [facility] Comment on above: Performed By: #### E RUR ####[facility] Izyph[address]facz[address] [place], [place] [address]Dr. Good Montiel LEUKOCYTES Negative Normal NEGATIVE [facility] Comment on above: Performed By: #### E RUR ####[facility] Hrpyqltx[address] [place], [place] [address]Dr. Good Montiel Nitrite Ql (U) Negative Normal NEGATIVE The [facility] Comment on above: Performed By: #### E RUR ####[facility] Un[address] [place], [place] [address]Dr. Good Montiel pH (U) 6.5 [pH] Normal 5-9 [facility] Comment on above: Performed By: #### E RUR ####[facility] [address] [place] [address]Dr. Good Montiel SPEC GRAVITY 1.010 Normal 1.005-<=1.02 5 [facility] Comment on above: Performed By: #### E RUR ####[facility] [address] [place] [address]Dr. Good Montiel UA PROTEIN Negative Normal NEGATIVE/ TRACE [facility] Comment on above: Performed By: #### E RUR ####[facility] [address] [place] [address]Dr. Good Montiel UR MICRO IND NOT INDICATED Normal The [facility] Comment on above: Performed By: #### E RUR ####[facility] [address] [place] [address]DrSmooth Montiel Urobilinogen Qn (U) 0.2 {Momo'U}/dL Normal 0.2 - 1. 0 [facility] Comment on above: Performed By: #### E RUR ####[facility] [address] [place] [address]DrSmooth Montiel LACTATE/LACTIC ACIDon 2021 Lactate [Moles/Vol] 1.9 mmol/L Normal 0.7-2.0 [facility] Comment on above: Performed By: #### L ACT ####[facility] Cdkwpun[address] [place], [place] [address]DrSmooth Montiel PROF 14(COMP METB)on 022 Albumin [Mass/Vol] 3.0 g/dL Critically low 3.5-5.0 [facility] Comment on above: Performed By: #### M ANA LAURA2 #### [facility] [address] [place] [address] Dr. Good Montiel Albumin/Globulin [Mass ratio] 0.9 {ratio} Normal [facility] Comment on above: Performed By: #### M ANA LAURA2 #### [facility] [address] [place] [address] [address] Good Montiel ALP [Catalytic activity/Vol] 36 U/L Critically low 38-126 [facility] Comment on above: Performed By: #### M ANA LAURA2 #### [facility] [address] [place] [address] [address] Good Montiel ALT [Catalytic activity/Vol] 26 U/L Normal 9-52 [facility] Comment on above: Performed By: #### M MA2 #### [facility] [address] [place] [address] [address] Good Montiel Anion gap [Moles/Vol] 12.2 mmol/L Normal Th [facility] Comment on above: Performed By: #### M MA2 #### [facility] [address] [place] [address] [address] Good Montiel AST [Catalytic activity/Vol] 23 U/L Normal 14-36 [facility] Comment on above: Performed By: #### M MA2 #### [facility] [address] [place] [address] [address] Good Montiel Bilirubin [Mass/Vol] 0.4 mg/dL Normal 0.2-1.3 [facility] Comment on above: Performed By: #### M MA2 #### [facility] [address] [place] [address] [address] Good Montiel Calcium [Mass/Vol] 8.5 mg/dL Normal 8.4-10.2 [facility] Comment on above: Performed By: #### M MA2 #### [facility] [address] [place] [address] [address] Good Montiel Chloride [Moles/Vol] 93 mmol/L Critically low 98-107 [facility] Comment on above: Performed By: #### M MA2 #### [facility] [address] [place] [address] [address] Good Montiel CO2 [Moles/Vol] 27.6 mmol/L Normal 22.0-30.0 [facility] Comment on above: Performed By: #### M MA2 #### [facility] [address] [place] [address] [address] Good Montiel Creatinine [Mass/Vol] 0.78 mg/dL Normal 0.52-1.04 [facility] Comment on above: Performed By: #### M MA2 #### [facility] [address] [place] [address] [address] Good Montiel EGFR-AF NIGERIEN >60 Normal >=60 [facility] Comment on above: Performed By: #### M MA2 #### [facility] [address] [place] [address] [address] Good Montiel EGFR-NON AF NIGERIEN >60 Normal >=60 [facility] Comment on above: Performed By: #### M MA2 #### [facility] [address] [place] [address] [address] Good Montiel Globulin (S) [Mass/Vol] 3.2 g/dL Normal [facility] [place] Comment on above: Performed By: #### M MA2 #### [facility] [address] [place] [address] [address] Good Montiel Glucose [Mass/Vol] 111 mg/dL Critically high 74-106 [facility] [place] Comment on above: Performed By: #### M MA2 #### [facility] [address] [place] [address] [address] Good Montiel Potassium [Moles/Vol] 3.8 mmol/L Normal 3.4-5.0 [facility] Comment on above: Performed By: #### M MA2 #### [facility] [address] [place] [address] [address] Good Montiel Protein [Mass/Vol] 6.2 g/dL Normal 6.1-8.2 [facility] Comment on above: Performed By: #### M MA2 #### [facility] [address] [place] [address] [address] Good Montiel Sodium [Moles/Vol] 129 mmol/L Critically low 137-145 [facility] Comment on above: Performed By: #### M MA2 #### [facility] [address] [place] [address] [address] Good Montiel Urea nitrogen [Mass/Vol] 17.0 mg/dL Normal 7.0-17.0 [facility] Comment on above: Performed By: #### M MA2 #### [facility] [address] [place] [address] Dr. Good Montiel Urea nitrogen/Creatinine [Mass ratio] 21.8 mg/mg Normal [facility] Comment on above: Performed By: #### Hakeem DU2 #### [facility] [address] [place] [address] Dr. Good Montiel TROPONIN, HIGH SENSITIVITYon 06-10-2021 HSTROP 9.8 pg/mL Normal 4.0-35.5 [facility] Comment on above: Result Comment: CUT- OFF POINTS HAVE BEEN ESTABLISHED BASED ON THE FOURTH UNIVERSAL DEFINITIONS OF MYOCARDIAL INFARCTION. THE UPPER REFERENCE LIMIT (URL) OF TROPONIN, DEFINED THE 99TH PERCENTILE OF cTnI DISTRIBUTION IN A REFERENCE POPULATION, HAS BEEN CONFIRMED THE DECISION THRESHOLD FOR NE DIAGNOSIS. Performed By: #### Hakeem DU2 #### [facility] [address] [place] [address] Dr. Good Montiel TSHon 06-10-2021 TSH 7.927 uIU/mL Critically high 0.470-4.680 [facility] Comment on above: Performed By: #### Hakeem DU2 #### [facility] [address] [place] [address] Dr. Good Montiel TSH RANGE SEE BELOW Normal [facility] Comment on above: Result Comment: <0.3 4 UIU/ml HYPERTHYROID 0.34-5.60 UIU/ml EUTHYROID >5.60 UIU/ml HYPOTHYROID Performed By: #### Hakeem DU2 #### [facility] [address] [place] [address] Dr. Good Montiel CBC AUTO DIFFon 06-06-2021 BASO # 0.1 103/ul Normal 0.0-0.1 [facility] Comment on above: Performed By: #### C TIFFANY CMADM #### [facility] [address] [place] [address] Dr. Good Montiel Basophils/100 WBC (Bld) 0.7 % Normal 0.2-2.0 [facility] Comment on above: Performed By: #### C TIFFANY, DOUGLASDM #### [facility] [address] [place] [address] Dr. Good Montiel EO # 0.2 103/ul Normal 0.0-0.7 [facility] Comment on above: Performed By: #### C TIFFANY, DOUGLASDM #### [facility] [address] [place] [address] Dr. Good Montiel Eosinophils/100 WBC (Bld) 2.5 % Normal 0.9-7.0 [facility] Comment on above: Performed By: #### C TIFFANY, DOUGLASDM #### [facility] [address] [place] [address] Dr. Good Montiel Erythrocyte distribution width (RBC) [Ratio] 18.5 % Critically high 11.0-15.0 [facility] Comment on above: Performed By: #### C TIFFANY, DOUGLASDM #### [facility] [address] [place] [address] Dr. Good Montiel Hematocrit (Bld) [Volume fraction] 30.1 % Critically low 36.0-48.0 [facility] Comment on above: Performed By: #### C DOUGLAS ALLENDM #### [facility] [address] [place] [address] Dr. Good Montiel Hemoglobin (Bld) [Mass/Vol] 9.3 g/dL Critically low 12.0-16.0 [facility] Comment on above: Performed By: #### C TIFFANY, DOUGLASDM #### [facility] [address] [place] [address] Dr. Good Montiel IG # 0.06 10e3/ul Critically high 0.00-0.03 [facility] Comment on above: Performed By: #### C TIFFANY, CMADM #### [facility] [address] [place] [address] Dr. Good Montiel IG % 0.7 % Critically high 0.0-0.5 [facility] Comment on above: Performed By: #### C TIFFANY, CMADM #### [facility] [address] [place] [address] Dr. Good Montiel LYMPH # 2.0 103/ul Normal 1.2-3.8 [facility] Comment on above: Performed By: #### C TIFFANY, CMADM #### [facility] [address] [place] [address] Dr. Good Montiel Lymphocytes/100 WBC (Bld) 23.0 % Normal 20.5-60.0 [facility] Comment on above: Performed By: #### C TIFFANY, CMADM #### [facility] [address] [place] [address] Dr. Good Montiel MANUAL DIFF REQ NO Normal [facility] Comment on above: Performed By: #### C MP, CMADM #### [facility] [address] [place] [address] Dr. Good Montiel MCH (RBC) [Entitic mass] 21.9 pg Critically low 26.7-34.0 [facility] Comment on above: Performed By: #### C TIFFANY, CMADM #### [facility] [address] [place] [address] Dr. Good Montiel MCHC (RBC) [Mass/Vol] 30.9 g/dL Normal 29.9-35.2 [facility] Comment on above: Performed By: #### C TIFFANY, CMADM #### [facility] [address] [place] [address] Dr. Good Montiel MCV (RBC) [Entitic vol] 70.8 fL Critically low 81.0-99. 0 [facility] Comment on above: Performed By: #### C TIFFANY, CMADM #### [facility] [address] [place] [address] Dr. Good Montiel MONO # 1.0 103/ul Critically high 0.3-0.8 [facility] Comment on above: Performed By: #### C MP, CMADM #### [facility] [address] [place] [address] Dr. Good Montiel Monocytes/100 WBC (Bld) 11.3 % Normal 1.7-12.0 [facility] Comment on above: Performed By: #### C MP, CMADM #### [facility] [address] [place] [address] Dr. Good Montiel NEUT # 5.2 103/ul Normal 1.4-6.5 [facility] Comment on above: Performed By: #### C MP, CMADM #### [facility] [address] [place] [address] [address] Good Montiel Neutrophils/100 WBC (Bld) 61.8 % Normal 43.0-75.0 [facility] Comment on above: Performed By: #### C MP, CMADM #### [facility] [address] [place] [address] [address] Good Montiel Platelet mean volume (Bld) [Entitic vol] 8.5 fL Critically low 9.5-13.5 [facility] Comment on above: Performed By: #### C MP, CMADM #### [facility] [address] [place] [address] [address] Good Montiel PLT 455 103/ul Critically high 150-450 [facility] Comment on above: Performed By: #### C MP, CMADM #### [facility] [address] [place] [address] [address] Good Montiel RBC 4.25 106/ul Normal 4.20-5.40 [facility] Comment on above: Performed By: #### C MP, CMADM #### [facility] [address] [place] [address] [address] Good Montiel WBC 8.5 103/ul Normal 4.0-11.0 [facility] Comment on above: Performed By: #### C TIFFANY, CMADM #### [facility] [address] [place] [address] [address] Good Montiel POINT OF CARE GLUCOSEon 05-17 Glucose [Mass/Vol] 164 mg/dL Critically high 74-106 [facility] Comment on above: Performed By: #### C MP, CMADM #### [facility] [address] [place] [address] [address] Good Montiel PROF 14(COMP METB)on Albumin [Mass/Vol] 3.2 g/dL Critically low 3.5-5.0 [facility] Comment on above: Performed By: #### M MA2 #### [facility] [address] [place] [address] Dr. Good Montiel Albumin/Globulin [Mass ratio] 1.1 {ratio} Normal [facility] Comment on above: Performed By: #### M MA2 #### [facility] [address] [place] [address] [address] Good Montiel ALP [Catalytic activity/Vol] 37 U/L Critically low 38-126 [facility] Comment on above: Performed By: #### Hakeem MA2 #### [facility] [address] [place] [address] [address] Good Montiel ALT [Catalytic activity/Vol] 26 U/L Normal 9-52 [facility] Comment on above: Performed By: #### Hakeem DU2 #### [facility] [address] [place] [address] [address] Good Montiel Anion gap [Moles/Vol] 11.5 mmol/L Normal [facility] Comment on above: Performed By: #### Hakeem DU2 #### [facility] [address] [place] [address] [address] Good Montiel AST [Catalytic activity/Vol] 25 U/L Normal 14-36 [facility] Comment on above: Performed By: #### Hakeem DU2 #### [facility] [address] [place] [address] [address] Good Montiel Bilirubin [Mass/Vol] 0.4 mg/dL Normal 0.2-1.3 [facility] Comment on above: Performed By: #### Hakeem DU2 #### [facility] [address] [place] [address] [address] Good Montiel Calcium [Mass/Vol] 8.8 mg/dL Normal 8.4-10.2 [facility] Comment on above: Performed By: #### Hakeem DU2 #### [facility] [address] [place] [address] [address] Good Montiel Chloride [Moles/Vol] 93 mmol/L Critically low 98-107 [facility] Comment on above: Performed By: #### Hakeem MA2 #### [facility] [address] [place] [address] Dr. Good Montiel CO2 [Moles/Vol] 28.2 mmol/L Normal 22.0-30.0 [facility] Comment on above: Performed By: #### M MA2 #### [facility] [address] [place] [address] [address] Good Montiel Creatinine [Mass/Vol] 0.57 mg/dL Normal 0.52-1.04 [facility] Comment on above: Performed By: #### M MA2 #### [facility] [address] [place] [address] [address] Good Montiel EGFR-AF NIGERIEN >60 Normal >=60 [facility] Comment on above: Performed By: #### M MA2 #### [facility] [address] [place] [address] [address] Good Montiel EGFR-NON AF NIGERIEN >60 Normal >=60 [facility] Comment on above: Performed By: #### M MA2 #### [facility] [address] [place] [address] [address] Good Montiel Globulin (S) [Mass/Vol] 3.0 g/dL Normal T [facility] Comment on above: Performed By: #### M MA2 #### [facility] [address] [place] [address] [address] Good Montiel Glucose [Mass/Vol] 106 mg/dL Normal 74-106 [facility] Comment on above: Performed By: #### M MA2 #### [facility] [address] [place] [address] [address] Good Montiel Potassium [Moles/Vol] 3.7 mmol/L Normal 3.4-5.0 [facility] Comment on above: Performed By: #### M MA2 #### [facility] [address] [place] [address] [address] Good Montiel Protein [Mass/Vol] 6.2 g/dL Normal 6.1-8.2 [facility] Comment on above: Performed By: #### M MA2 #### [facility] [address] [place] [address] [address] Good Montiel Sodium [Moles/Vol] 129 mmol/L Critically low 137-145 [facility] Comment on above: Performed By: #### M MA2 #### [facility] [address] [place] [address] [address] Good Montiel Urea nitrogen [Mass/Vol] 14.0 mg/dL Normal 7.0-17.0 [facility] Comment on above: Performed By: #### M MA2 #### [facility] [address] [place] [address] [address] Good Montiel Urea nitrogen/Creatinine [Mass ratio] 24.6 mg/mg Normal [facility] Comment on above: Performed By: #### M MA2 #### [facility] [address] [place] [address] [address] Good Montiel CARDIAC LOGAN ADMITon 022 CK [Catalytic activity/Vol] 55 U/L Normal 30-135 [facility] Comment on above: Performed By: #### C TIFFANY, DOUGLASDM #### [facility] [address] [place] [address] Dr. Good Montiel CK.MB [Mass/Vol] 2.09 ng/mL Normal <=2.37 [facility] Comment on above: Performed By: #### C TIFFANY, CMADM #### [facility] [address] [place] [address] Dr. Good Montiel HSTROP 10.2 pg/mL Normal 4.0-35.5 [facility] Comment on above: Result Comment: CUT- OFF POINTS HAVE BEEN ESTABLISHED BASED ON THE FOURTH UNIVERSAL DEFINITIONS OF MYOCARDIAL INFARCTION. THE UPPER REFERENCE LIMIT (URL) OF TROPONIN, DEFINED THE 99TH PERCENTILE OF cTnI DISTRIBUTION IN A REFERENCE POPULATION, HAS BEEN CONFIRMED THE DECISION THRESHOLD FOR NE DIAGNOSIS. Performed By: #### C TIFFANY, CMADM #### [facility] [address] [place] [address] Dr. Good Montiel CLIF 61.0 ng/mL Normal <=61.5 [facility] Comment on above: Performed By: #### C TIFFANY, CMADM #### [facility] [address] [place] [address] Dr. Good Montiel CBC AUTO DIFFon 06-05-2021 BASO # 0.1 103/ul Normal 0.0-0.1 [facility] Comment on above: Performed By: #### C BC ####[facility] [address] [place], [place] [address]Dr. Good Montiel Basophils/100 WBC (Bld) 0.8 % Normal 0.2-2.0 [facility] Comment on above: Performed By: #### C BC ####[facility] [address] [place], [place] [address]Dr. Good Montiel EO # 0.2 103/ul Normal 0.0-0.7 [facility] Comment on above: Performed By: #### C BC ####[facility] Dr[address]uab[address] [place], [place] [address]Dr. Good Montiel Eosinophils/100 WBC (Bld) 2.2 % Normal 0.9-7.0 [facility] Comment on above: Performed By: #### C BC ####[facility] Ynzb[address] [place], [place] [address]Dr. Good Montiel Erythrocyte distribution width (RBC) [Ratio] 18.2 % Critically high 11.0-15.0 [facility] Comment on above: Performed By: #### C BC ####[facility] [address] [place], [place] [address]Dr. Good Montiel Hematocrit (Bld) [Volume fraction] 31.1 % Critically low 36.0-48.0 [facility] Comment on above: Performed By: #### C BC ####[facility] [address] [place], [place] [address]Dr. oGod Montiel Hemoglobin (Bld) [Mass/Vol] 9.6 g/dL Critically low 12.0-16.0 [facility] Comment on above: Performed By: #### C BC ####[facility] [address] [place], [place] [address]Dr. Good Montiel IG # 0.07 10e3/ul Critically high 0.00-0.03 [facility] Comment on above: Performed By: #### C BC ####[facility] [address] [place], [place] [address]DrSmooth Montiel IG % 0.9 % Critically high 0.0-0.5 [facility] Comment on above: Performed By: #### C BC ####[facility] [address] [place] [address]DrSmooth Montiel LYMPH # 1.3 103/ul Normal 1.2-3.8 [facility] Comment on above: Performed By: #### C BC ####[facility] [address] [place], [place] [address]DrSmooth Montiel Lymphocytes/100 WBC (Bld) 17.2 % Critically low 20.5-60.0 [facility] Comment on above: Performed By: #### C BC ####[facility] [address]wcrs[address] [place], [place] [address]DrSmooth Montiel MANUAL DIFF REQ NO Normal [facility] Comment on above: Performed By: #### C BC ####[facility] X[address]ardmzyid[address] [place], [place] [address]DrSmooth Montiel MCH (RBC) [Entitic mass] 21.8 pg Critically low 26.7-34.0 [facility] Comment on above: Performed By: #### C BC ####[facility] [address] [place], [place] [address]DrSmooth Montiel MCHC (RBC) [Mass/Vol] 30.9 g/dL Normal 29.9-35.2 [facility] Comment on above: Performed By: #### C BC ####[facility] [address] [place], [place] [address]DrSmooth Montiel MCV (RBC) [Entitic vol] 70.5 fL Critically low 81.0-99. 0 [facility] Comment on above: Performed By: #### C BC ####[facility] [address] [place], [place] [address]DrSmooth Montiel MONO # 0.6 103/ul Normal 0.3-0.8 [facility] Comment on above: Performed By: #### C BC ####[facility] O[address] [place], [place] [address]DrSmooth Montiel Monocytes/100 WBC (Bld) 8.3 % Normal 1.7-12.0 [facility] Comment on above: Performed By: #### C BC ####[facility] [address] [place] [address]Dr. Good Montiel NEUT # 5.3 103/ul Normal 1.4-6.5 [facility] Comment on above: Performed By: #### C BC ####[facility] [address] [place], [place] [address]Dr. Good Montiel Neutrophils/100 WBC (Bld) 70.6 % Normal 43.0-75.0 [facility] Comment on above: Performed By: #### C BC ####[facility] [address] [place], [place] [address]Dr. Good Montiel Platelet mean volume (Bld) [Entitic vol] 8.3 fL Critically low 9.5-13.5 [facility] Comment on above: Performed By: #### C BC ####[facility] [address] [place], [place] [address]Dr. Good Montiel PLT 463 103/ul Critically high 150-450 [facility] Comment on above: Performed By: #### C BC ####[facility] [address] [place], [place] [address]Dr. Good Montiel RBC 4.41 106/ul Normal 4.20-5.40 [facility] Comment on above: Performed By: #### C BC ####[facility] [address] [place], [place] [address]Dr. Good Montiel WBC 7.6 103/ul Normal 4.0-11.0 [facility] Comment on above: Performed By: #### C BC ####[facility] [address] [place], [place] [address]Dr. Good Montiel CT STROKE HEAD WOon 06-05-19 [...] GINGER BROOKS Date: 2021-06-05 10:30 Normal [facility] Covid-19 PCR (CVDTBH)on 05-17 SARS-CoV-2 (COVID-19) RNA FELECIA+probe Ql (Unsp spec) Not detected Normal NOT DETECTED [facility] Comment on above: Result Comment: When [...] for this test is supported by the Promotion Officer of Health and Human Service's declaration that [...] used). Performed By: #### C [facility] #### [facility] [address] [place] [address] Dr. Good Montiel ECHOCARDIO M/2D COMPLETEon 0 06-05-2021 ECHOCARDIO M/2D COMPLETE Patient: NUVIA MARTIN Exam Date: 06/05/2021 : 1945 Gender:F Ordering : DR. RHIANNON OLSON . Admission #: [id number] Family : DR WILY PRADO M.D. Order #: [id number] CLICK HERE TO VIEW EXAM ECHOCARDIOGRAM REPORT [...] Area(A4C): 18.50 cm2 Left Atrium Systolic Volume(A2C): 59270 mm3 Left Atrium Systolic Volume(A4C): 74467 mm3 Mitral Valve MV E to A [...] Ramírez M.D. on 06/08/2021 at 14:19 Normal [facility] GLYCOHEMOGLOBIN A1Con 2021 ADA RECOMMENDATION ADA THERAPEUTIC TARGET 6.0 - 7.0 ACTION SUGGESTED > 7.0 Normal [facility] Comment on above: Performed By: #### M MA2 #### [facility] [address] [place] [address] Dr. Good Montiel Glucose [Mass/Vol] 131 mg/dL Normal [facility] Comment on above: Performed By: #### M MA2 #### [facility] [address] [address] [address] Good Montiel HbA1c (Bld) [Mass fraction] 6.2 % Critically high <=6.0 [facility] Comment on above: Performed By: #### M MA2 #### [facility] [address] [address] [address] Good Montiel LIPID PROFILEon 06-05-2021 CHOL-HDL RATIO NORM SEE BELOW Normal [facility] Comment on above: Result Comment: 3.3 - 4.4 LOW RISK 4.4 - 7.1 AVERAGE RISK 7.1 - 11.0 MODERATE RISK >11.0 HIGH RISK Performed By: #### C TIFFANY, CMADM #### [facility] [address] [address] [address] Good Montiel Cholesterol [Mass/Vol] 157 mg/dL Normal <=200 [facility] Comment on above: Performed By: #### C MP, CMADM #### [facility] [address] [address] [address] Good Montiel Cholesterol in HDL [Mass/Vol] 44 mg/dL Normal [facility] Comment on above: Performed By: #### C TIFFANY, CMADM #### [facility] [address] [address] [address] Good Montiel Cholesterol in LDL [Mass/Vol] 80.0 mg/dL Normal [facility] Comment on above: Performed By: #### C TIFFANY, CMADM #### [facility] [address] [address] [address] Good Montiel Cholesterol.total/Rocío sterol in HDL [Mass ratio] 3.6 {ratio} Normal [facility] Comment on above: Performed By: #### C TIFFANY, CMADM #### [facility] [address] [address] [address] Good Montiel HDL NORMAL > or = 60 mg/dl - LOW CARDIOVASCULAR RISK <40 mg/dl - HIGH CARDIOVASCULAR RISK Normal [facility] Comment on above: Performed By: #### C TIFFANY, CMADM #### [facility] [address] [address] [address] Good Montiel LDL CALC NORMAL SEE BELOW Normal [facility] Comment on above: Result Comment: <100 mg/dl OPTIMAL 100 - 129 mg/dl NEAR OR ABOVE OPTIMAL 130 - 159 mg/dl BORDERLINE HIGH 160 - 189 mg/dl HIGH >190 mg/dl VERY HIGH Performed By: #### C TIFFANY, CMADM #### [facility] [address] [address] [address] Good Montiel Triglyceride [Mass/Vol] 165 mg/dL Critically high <=150 [facility] Comment on above: Performed By: #### C SERAFIN ALLEN #### [facility] [address] [address] [address] Good Montiel VLDL CALC 33.0 mg/dL Normal [facility] Comment on above: Performed By: #### C SERAFIN ALLEN #### [facility] [address] [address] [address] Good Montiel MRI BRAIN WO CONon [...] by: ALFONSO ALTMAN Date: 2021-06-05 15:08 Normal [facility] POINT OF CARE GLUCOSEon 05-17 Glucose [Mass/Vol] 119 mg/dL Critically high 74-106 T [facility] Comment on above: Performed By: #### P OCGLUC ####[facility] [address] [address]Dr. Good Montiel Glucose [Mass/Vol] 169 mg/dL Critically high 74-106 [facility] Comment on above: Performed By: #### P OCGLUC ####[facility] [address] [address]Dr. Good Montiel Glucose [Mass/Vol] 119 mg/dL Critically high 74-106 [facility] Comment on above: Performed By: #### P OCGLUC ####[facility] [address] [address]Dr. Good Montiel PROF 14(COMP METB)on 022 Albumin [Mass/Vol] 3.3 g/dL Critically low 3.5-5.0 [facility] Comment on above: Performed By: #### C SERAFIN ALLEN #### [facility] [address] [address] [address] Good Montiel Albumin/Globulin [Mass ratio] 1.0 {ratio} Normal [facility] Comment on above: Performed By: #### C SERAFIN ALLEN #### [facility] [address] [address] [address] Good Montiel ALP [Catalytic activity/Vol] 40 U/L Normal 38-126 [facility] Comment on above: Performed By: #### C SERAFIN ALLEN #### [facility] [address] [address] [address] Good Montiel ALT [Catalytic activity/Vol] 23 U/L Normal 9-52 [facility] Comment on above: Performed By: #### C SERAFIN ALLEN #### [facility] [address] [address] [address] Good Montiel Anion gap [Moles/Vol] 11.3 mmol/L Normal [facility] Comment on above: Performed By: #### C DOUGLAS ALLENDM #### [facility] [address] [address] [address] Good Montiel AST [Catalytic activity/Vol] 20 U/L Normal 14-36 [facility] Comment on above: Performed By: #### C SERAFIN ALLEN #### [facility] [address] [address] [address] Good Montiel Bilirubin [Mass/Vol] 0.6 mg/dL Normal 0.2-1.3 [facility] Comment on above: Performed By: #### C TIFFANY, CMADM #### [facility] [address] [place] [address] Dr. Good Montiel Calcium [Mass/Vol] 8.5 mg/dL Normal 8.4-10.2 [facility] Comment on above: Performed By: #### C TIFFANY, CMADM #### [facility] [address] [place] [address] Dr. Good Montiel Chloride [Moles/Vol] 90 mmol/L Critically low 98-107 [facility] Comment on above: Performed By: #### C TIFFANY, CMADM #### [facility] [address] [place] [address] Dr. Good Montiel CO2 [Moles/Vol] 28.5 mmol/L Normal 22.0-30.0 [facility] Comment on above: Performed By: #### C TIFFANY, CMADM #### [facility] [address] [place] [address] Dr. Good Montiel Creatinine [Mass/Vol] 0.89 mg/dL Normal 0.52-1.04 [facility] Comment on above: Performed By: #### C TIFFANY, DOUGLASDM #### [facility] [address] [place] [address] Dr. Good Montiel EGFR-AF NIGERIEN >60 Normal >=60 [facility] Comment on above: Performed By: #### C TIFFANY, CMADM #### [facility] [address] [place] [address] Dr. Good Montiel EGFR-NON AF NIGERIEN >60 Normal >=60 [facility] Comment on above: Performed By: #### C TIFFANY, CMADM #### [facility] [address] [place] [address] Dr. Good Montiel Globulin (S) [Mass/Vol] 3.3 g/dL Normal T [facility] Comment on above: Performed By: #### C TIFFANY, DOUGLASDM #### [facility] [address] [place] [address] Dr. Good Montiel Glucose [Mass/Vol] 128 mg/dL Critically high 74-106 T [facility] Comment on above: Performed By: #### C TIFFANY, DOUGLASDM #### [facility] [address] [address] [address] Good Montiel Potassium [Moles/Vol] 3.8 mmol/L Normal 3.4-5.0 [facility] Comment on above: Performed By: #### C TIFFANY, DOUGLASDM #### [facility] [address] [address] [address] Good Montiel Protein [Mass/Vol] 6.6 g/dL Normal 6.1-8.2 [facility] Comment on above: Performed By: #### C TIFFANY, DOUGLASDM #### [facility] [address] [address] [address] Good Montiel Sodium [Moles/Vol] 126 mmol/L Critically low 137-145 [facility] Comment on above: Performed By: #### C TIFFANY, CMADM #### [facility] [address] [address] [address] Good Montiel Urea nitrogen [Mass/Vol] 16.0 mg/dL Normal 7.0-17.0 [facility] Comment on above: Performed By: #### C TIFFANY, CMADM #### [facility] [address] [place] [address] Dr. Good Montiel Urea nitrogen/Creatinine [Mass ratio] 18.0 mg/mg Normal [facility] Comment on above: Performed By: #### C TIFFANY, CMADM #### [facility] [address] [address] [address] Good Montiel US CAROTID ART BILon [...] GINGER BROOKS Date: 2021-06-05 15:31 Normal [facility] XR CHEST 1 Von 06-05-2021 XR [...] GINGER BROOKS Date: 2021-06-05 09:36 Normal [facility] CT HEAD WO CONon 06-04-2021 CT [...] GINGER BROOKS Date: 2021-06-04 08:06 Normal [facility] BNPon 05-27-2021 Natriuretic peptide B (Bld) [Mass/Vol] 285.0 pg/mL Normal <=900.0 [facility] Comment on above: Performed By: #### C MADM, CMP, BNP ####[facility] [address] [id number]. Good Dinesh CARDIAC LOGAN ADMITon 022 CK [Catalytic activity/Vol] 60 U/L Normal 30-135 [facility] Comment on above: Performed By: #### C MADM, CMP, BNP ####[facility] [address] [id number]. Good Montiel CK.MB [Mass/Vol] 2.13 ng/mL Normal <=2.37 [facility] Comment on above: Performed By: #### C MADM, CMP, BNP ####[facility] [address] [address]Dr. Rejoo Montiel HSTROP 10.8 pg/mL Normal 4.0-35.5 [facility] Comment on above: Result Comment: CUT- OFF POINTS HAVE BEEN ESTABLISHED BASED ON THE FOURTH UNIVERSAL DEFINITIONS OF MYOCARDIAL INFARCTION. THE UPPER REFERENCE LIMIT (URL) OF TROPONIN, DEFINED THE 99TH PERCENTILE OF cTnI DISTRIBUTION IN A REFERENCE POPULATION, HAS BEEN CONFIRMED THE DECISION THRESHOLD FOR NE DIAGNOSIS. Performed By: #### C MADM, CMP, BNP ####[facility] [address] [address]Dr. Rejoo Montiel CLIF 62.0 ng/mL Critically high <=61.5 [facility] Comment on above: Performed By: #### C MADM, CMP, BNP ####[facility] [address] [address]Dr. Good Montiel CBC AUTO DIFFon 05-27-2021 BASO # 0.1 103/ul Normal 0.0-0.1 [facility] Comment on above: Performed By: #### C BC ####[facility] [address] [address]Dr. Good Montiel Basophils/100 WBC (Bld) 0.8 % Normal 0.2-2.0 [facility] Comment on above: Performed By: #### C BC ####[facility] [address] [address]Dr. Good Montiel EO # 0.3 103/ul Normal 0.0-0.7 [facility] Comment on above: Performed By: #### C BC ####[facility] [address] [address]Dr. Good Montiel Eosinophils/100 WBC (Bld) 3.1 % Normal 0.9-7.0 [facility] Comment on above: Performed By: #### C BC ####[facility] [address] [place], [place] [address]Dr. Good Montiel Erythrocyte distribution width (RBC) [Ratio] 18.4 % Critically high 11.0-15.0 [facility] Comment on above: Performed By: #### C BC ####[facility] [address] [place], [place] [address]Dr. Good Montiel Hematocrit (Bld) [Volume fraction] 31.8 % Critically low 36.0-48.0 [facility] Comment on above: Performed By: #### C BC ####[facility] [address] [place], [place] [address]Dr. Good Montiel Hemoglobin (Bld) [Mass/Vol] 9.8 g/dL Critically low 12.0-16.0 [facility] Comment on above: Performed By: #### C BC ####[facility] [address] [place], [place] [address]Dr. Good Montiel IG # 0.09 10e3/ul Critically high 0.00-0.03 [facility] Comment on above: Performed By: #### C BC ####[facility] [address] [place], [place] [address]Dr. Good Montiel IG % 1.1 % Critically high 0.0-0.5 [facility] Comment on above: Performed By: #### C BC ####[facility] [address] [place], [place] [address]Dr. Good Montiel LYMPH # 1.6 103/ul Normal 1.2-3.8 [facility] Comment on above: Performed By: #### C BC ####[facility] [address] [place], [place] [address]Dr. Good Montiel Lymphocytes/100 WBC (Bld) 18.5 % Critically low 20.5-60.0 [facility] Comment on above: Performed By: #### C BC ####[facility] [address] [address]DrSmooht Montiel MANUAL DIFF REQ NO Normal [facility] Comment on above: Performed By: #### C BC ####[facility] [address] [address]Dr. Good Montiel MCH (RBC) [Entitic mass] 22.1 pg Critically low 26.7-34.0 [facility] Comment on above: Performed By: #### C BC ####[facility] [address] [place], [place] [address]Dr. Good Montiel MCHC (RBC) [Mass/Vol] 30.8 g/dL Normal 29.9-35.2 [facility] Comment on above: Performed By: #### C BC ####[facility] [address] [place], [place] [address]Dr. Good Montiel MCV (RBC) [Entitic vol] 71.6 fL Critically low 81.0-99. 0 [facility] Comment on above: Performed By: #### C BC ####[facility] [address] [place], [place] [address]DrSmooth Montiel MONO # 0.7 103/ul Normal 0.3-0.8 [facility] Comment on above: Performed By: #### C BC ####[facility] [address] [place], [place] [address]Dr. Good Montiel Monocytes/100 WBC (Bld) 8.8 % Normal 1.7-12.0 [facility] Comment on above: Performed By: #### C BC ####[facility] [address] [place], [place] [address]DrSmooth Montiel NEUT # 5.7 103/ul Normal 1.4-6.5 [facility] Comment on above: Performed By: #### C BC ####[facility] [address] [place], [place] [address]DrSmooth Montiel Neutrophils/100 WBC (Bld) 67.7 % Normal 43.0-75.0 [facility] Comment on above: Performed By: #### C BC ####[facility] [address] [place], [place] [address]EbSmooth Montiel Platelet mean volume (Bld) [Entitic vol] 8.2 fL Critically low 9.5-13.5 [facility] Comment on above: Performed By: #### C BC ####[facility] [address] [place], [place] [address]Jh. Good Montiel PLT 382 103/ul Normal 150-450 [facility] Comment on above: Performed By: #### C BC ####[facility] [address] [id number]. Good Montiel RBC 4.44 106/ul Normal 4.20-5.40 [facility] Comment on above: Performed By: #### C BC ####[facility] [address] [id number]. Good Montiel WBC 8.4 103/ul Normal 4.0-11.0 [facility] Comment on above: Performed By: #### C BC ####[facility] [address] [place], [place] [address] STROKE HEAD WOon 05-27-19 CT [...] GINGER BROOKS Date: 2021-05-27 07:10 Normal [facility] PROF 14(COMP METB)on 022 Albumin [Mass/Vol] 3.3 g/dL Critically low 3.5-5.0 [facility] Comment on above: Performed By: #### C MADM, CMP, BNP ####[facility] [address] [address]Dr. Good Montiel Albumin/Globulin [Mass ratio] 1.0 {ratio} Normal [facility] Comment on above: Performed By: #### C MADM, CMP, BNP ####[facility] [address] [address]Dr. Good Montiel ALP [Catalytic activity/Vol] 43 U/L Normal 38-126 [facility] Comment on above: Performed By: #### C MADM, CMP, BNP ####[facility] [address] [address]Dr. Good Montiel ALT [Catalytic activity/Vol] 27 U/L Normal 9-52 [facility] Comment on above: Performed By: #### C MADM, CMP, BNP ####[facility] [address] [address]Dr. Good Montiel Anion gap [Moles/Vol] 8.1 mmol/L Normal [facility] Comment on above: Performed By: #### C MADM, CMP, BNP ####[facility] [address] [address]Dr. Good Montiel AST [Catalytic activity/Vol] 23 U/L Normal 14-36 [facility] Comment on above: Performed By: #### C MADM, CMP, BNP ####[facility] [address] [address]Dr. Good Montiel Bilirubin [Mass/Vol] 0.4 mg/dL Normal 0.2-1.3 [facility] Comment on above: Performed By: #### C MADM, CMP, BNP ####[facility] [address] [address]Dr. Good Montiel Calcium [Mass/Vol] 8.5 mg/dL Normal 8.4-10.2 [facility] Comment on above: Performed By: #### C MADM, CMP, BNP ####[facility] [address] [address]Dr. Good Montiel Chloride [Moles/Vol] 94 mmol/L Critically low 98-107 [facility] Comment on above: Performed By: #### C MADM, CMP, BNP ####[facility] [address] [address]Dr. Good Montiel CO2 [Moles/Vol] 29.9 mmol/L Normal 22.0-30.0 [facility] Comment on above: Performed By: #### C MADM, CMP, BNP ####[facility] [address] [place], [place] [address]Dr. oGod Montiel Creatinine [Mass/Vol] 0.77 mg/dL Normal 0.52-1.04 [facility] Comment on above: Performed By: #### C MADM, CMP, BNP ####[facility] [address] [place], [place] [address]Dr. Good Montiel EGFR-AF NIGERIEN >60 Normal >=60 [facility] Comment on above: Performed By: #### C MADM, CMP, BNP ####[facility] [address] [place], [place] [address]Dr. Good Montiel EGFR-NON AF NIGERIEN >60 Normal >=60 [facility] Comment on above: Performed By: #### C MADM, CMP, BNP ####[facility] [address] [address]Dr. Good Montiel Globulin (S) [Mass/Vol] 3.4 g/dL Normal [facility] Comment on above: Performed By: #### C MADM, CMP, BNP ####[facility] [address] [address]Dr. Good Montiel Glucose [Mass/Vol] 114 mg/dL Critically high 74-106 [facility] Comment on above: Performed By: #### C MADM, CMP, BNP ####[facility] [address] [address]Dr. Good Montiel Potassium [Moles/Vol] 4.0 mmol/L Normal 3.4-5.0 [facility] Comment on above: Performed By: #### C MADM, CMP, BNP ####[facility] [address] [address]Dr. Good Montiel Protein [Mass/Vol] 6.7 g/dL Normal 6.1-8.2 [facility] Comment on above: Performed By: #### C MADM, CMP, BNP ####[facility] [address] [address]Dr. Good Montiel Sodium [Moles/Vol] 128 mmol/L Critically low 137-145 [facility] Comment on above: Performed By: #### C MADM, CMP, BNP ####[facility] [address] [address]Dr. Good Montiel Urea nitrogen [Mass/Vol] 12.0 mg/dL Normal 7.0-17.0 [facility] Comment on above: Performed By: #### C MADM, CMP, BNP ####[facility] [address] [address]Dr. Good Montiel Urea nitrogen/Creatinine [Mass ratio] 15.6 mg/mg Normal [facility] Comment on above: Performed By: #### C MADM, CMP, BNP ####[facility] [address] [address]DrSmooth Montiel PROTIMEon 05-27-2021 INR Coag (PPP) [Relative time] 1.01 {INR} Normal [facility] Comment on above: Performed By: #### M MA2 #### [facility] [address] [address] [address] Good Montiel INR GUIDELINES SEE BELOW Normal [facility] Comment on above: Result Comment: JEANNINE RED INR: 2.0 - 3.0 CONDITIONS NOT LISTED BELOW 2.5 - 3.5 FOR PROSTHETIC HEART VALVE REPLACEMENT 2.5 - 3.5 RECURRENT THROMBOSIS Performed By: #### M MA2 #### [facility] [address] [place], [place] [address] Dr. Good Montiel PT Coag (PPP) [Time] 10.9 s Normal 9.0-11.6 [facility] Comment on above: Performed By: #### M MA2 #### [facility] [address] [place], [place] [address] Dr. Good Montiel PTTon 05-27-2021 aPTT Coag (Bld) [Time] 24.5 s Normal 22.3-36.2 [facility] Comment on above: Performed By: #### M MA2 #### [facility] [id number] Good Montiel XR CHEST 1 Von [...] by: GINGER BROOKS Date: 2021-05-27 07:53 Normal [facility] Vital Signs Date Time Vital Sign Value Performing Clinician Facility 10-11-2024 15:48-0400 Body height 149.9 cm Wily Prado MD Work Phone: [facility] 10-11-2024 15:48-0400 Body mass index (BMI) [Ratio] 34.74 kg/m2 Wily Prado MD Work Phone: [facility] 10-11-2024 15:48-0400 Body weight 78.02 kg Wily Prado MD Work Phone: [facility] 10-11-2024 15:48-0400 Diastolic blood pressure 60 mm[Hg] Wily Prado MD Work Phone: [facility] 10-11-2024 15:48-0400 Heart rate 64 /min Wily Prado MD Work Phone: [facility] 10-11-2024 15:48-0400 SaO2% (BldA) [Mass fraction] 94 % Wily Prado MD Work Phone: [facility] 10-11-2024 15:48-0400 Systolic blood pressure 130 mm[Hg] Wily Prado MD Work Phone: [facility] 05-11-2024 08:34-0500 Diastolic blood pressure 60 mm[Hg] Wily Prado MD Work Phone: [facility] 05-11-2024 08:34-0500 Systolic blood pressure 160 mm[Hg] Wily Prado MD Work Phone: [facility] 05-08-2024 08:24-0500 Body height 149.9 cm Wily Prado MD Work Phone: [facility] 05-08-2024 08:24-0500 Body mass index (BMI) [Ratio] 33.33 kg/m2 Wily Prado MD Work Phone: [facility] 05-08-2024 08:24-0500 Body weight 74.84 kg Wily Prado MD Work Phone: [facility] 05-08-2024 08:24-0500 Diastolic blood pressure 92 mm[Hg] Wily Prado MD Work Phone: [facility] 05-08-2024 08:24-0500 Heart rate 61 /min Wily Prado MD Work Phone: [facility] 05-08-2024 08:24-0500 Respiratory rate 17 /min Wily Prado MD Work Phone: [facility] 05-08-2024 08:24-0500 SaO2% (BldA) [Mass fraction] 98 % Wily Prado MD Work Phone: [facility] 05-08-2024 08:24-0500 Systolic blood pressure 184 mm[Hg] Wily Prado MD Work Phone: [facility] 01-17-2024 10:04-0400 Body height 149.9 cm Wily Prado MD Work Phone: [facility] 01-17-2024 10:04-0400 Body mass index (BMI) [Ratio] 33.12 kg/m2 Wily Prado MD Work Phone: [facility] 01-17-2024 10:04-0400 Body weight 74.39 kg Wily Prado MD Work Phone: [facility] 01-17-2024 10:04-0400 Diastolic blood pressure 84 mm[Hg] Wily Prado MD Work Phone: [facility] 01-17-2024 10:04-0400 Heart rate 58 /min Wily Prado MD Work Phone: [facility] 01-17-2024 10:04-0400 SaO2% (BldA) [Mass fraction] 97 % Wily Prado MD Work Phone: [facility] 01-17-2024 10:04-0400 Systolic blood pressure 138 mm[Hg] Wily Prado MD Work Phone: [facility] 02-01-2023 10:58-0400 Body temperature 97.2 [degF] MD Wily Prado Work Phone: [facility] 02-01-2023 10:58-0400 Body weight 78.92 kg MD Wily Prado Work Phone: [facility] 02-01-2023 10:58-0400 Diastolic blood pressure 66 mm[Hg] MD Wily Prado Work Phone: [facility] 02-01-2023 10:58-0400 Heart rate 67 /min MD Wily Prado Work Phone: [facility] 02-01-2023 10:58-0400 Respiratory rate 16 /min MD Wily Prado Work Phone: [facility] 02-01-2023 10:58-0400 SaO2% (BldA) [Mass fraction] 95 % MD Wily Prado Work Phone: [facility] 02-01-2023 10:58-0400 Systolic blood pressure 171 mm[Hg] MD Wily Prado Work Phone: [facility] 11-02-2022 09:46-0400 Body temperature 97.8 [degF] MD Wily Prado Work Phone: [facility] 11-02-2022 09:46-0400 Body weight 78.01 kg MD Wily Prado Work Phone: [facility] 11-02-2022 09:46-0400 Diastolic blood pressure 79 mm[Hg] MD Wily Prado Work Phone: [facility] 11-02-2022 09:46-0400 Heart rate 64 /min MD Wily Prado Work Phone: [facility] 11-02-2022 09:46-0400 Respiratory rate 16 /min MD Wily Prado Work Phone: [facility] 11-02-2022 09:46-0400 SaO2% (BldA) [Mass fraction] 95 % MD Wily Prado Work Phone: [facility] 11-02-2022 09:46-0400 Systolic blood pressure 179 mm[Hg] MD Wily Prado Work Phone: [facility] 07-30-2022 10:49-0400 Body temperature 97.7 [degF] MD Wily Prado Work Phone: [facility] 07-30-2022 10:49-0400 Body weight 81 kg MD Wily Prado Work Phone: [facility] 07-30-2022 10:49-0400 Diastolic blood pressure 81 mm[Hg] MD Wily Prado Work Phone: [facility] 07-30-2022 10:49-0400 Heart rate 64 /min MD Wily Prado Work Phone: [facility] 07-30-2022 10:49-0400 Respiratory rate 16 /min MD Wily Prado Work Phone: [facility] 07-30-2022 10:49-0400 SaO2% (BldA) [Mass fraction] 96 % MD Wily Prado Work Phone: [facility] 07-30-2022 10:49-0400 Systolic blood pressure 166 mm[Hg] MD Wily Prado Work Phone: [facility] 04-26-2022 09:37-0500 Body temperature 97.8 [degF] MD Wily Prado Work Phone: [facility] 04-26-2022 09:37-0500 Body weight 80.4 kg MD Wily Prado Work Phone: [facility] 04-26-2022 09:37-0500 Diastolic blood pressure 71 mm[Hg] MD Wily Prado Work Phone: [facility] 04-26-2022 09:37-0500 Heart rate 60 /min MD Wily Prado Work Phone: [facility] 04-26-2022 09:37-0500 Respiratory rate 16 /min MD Wily Prado Work Phone: [facility] 04-26-2022 09:37-0500 SaO2% (BldA) [Mass fraction] 93 % MD Wily Prado Work Phone: [facility] 04-26-2022 09:37-0500 Systolic blood pressure 145 mm[Hg] MD Wily Prado Work Phone: [facility] 02-22-2022 11:08-0400 Body temperature 98 [degF] MD Wily Prado Work Phone: [facility] 02-22-2022 11:08-0400 Body weight 80.73 kg MD Wily Prado Work Phone: [facility] 02-22-2022 11:08-0400 Diastolic blood pressure 56 mm[Hg] MD Wily Prado Work Phone: [facility] 02-22-2022 11:08-0400 Heart rate 65 /min MD Wily Prado Work Phone: [facility] 02-22-2022 11:08-0400 Respiratory rate 16 /min MD Wily Prado Work Phone: [facility] 02-22-2022 11:08-0400 SaO2% (BldA) [Mass fraction] 95 % MD Wily Prado Work Phone: [facility] 02-22-2022 11:08-0400 Systolic blood pressure 163 mm[Hg] MD Wily Prado Work Phone: [facility] 01-12-2022 11:24-0400 Body temperature 97.9 [degF] MD Wily Prado Work Phone: [facility] 01-12-2022 11:24-0400 Body weight 87.86 kg MD Wily Prado Work Phone: [facility] 01-12-2022 11:24-0400 Diastolic blood pressure 63 mm[Hg] MD Wily Prado Work Phone: [facility] 01-12-2022 11:24-0400 Heart rate 58 /min MD Wily Prado Work Phone: [facility] 01-12-2022 11:24-0400 Respiratory rate 18 /min MD Wily Prado Work Phone: [facility] 01-12-2022 11:24-0400 SaO2% (BldA) [Mass fraction] 97 % MD Wily Prado Work Phone: [facility] 01-12-2022 11:24-0400 Systolic blood pressure 169 mm[Hg] MD Wily Prado Work Phone: [facility] 01-12-2022 11:14-0400 Body height 152.4 cm MD Wily Prado Work Phone: [facility] 02-24-2021 13:00-0400 Body height 152.4 cm Mikie Mijaresreyaima Other [employer] Other 02-24-2021 13:00-0400 Body mass index (BMI) [Ratio] 37.1 kg/m2 Mikie Mijaresrer Other [employer] Other 02-24-2021 13:00-0400 Body temperature 97.6 [degF] Mikie Mijaresrer Other [employer] Other 02-24-2021 13:00-0400 Body weight 86.18 kg Mikie Mijaresrer Other [employer] Other 02-24-2021 13:00-0400 Diastolic blood pressure 67 mm[Hg] Mikie Mijaresrer Other [employer] Other 02-24-2021 13:00-0400 Systolic blood pressure 166 mm[Hg] Mikie Buehrer Other [employer] Other Encounters Encounter Date Encounter Type Care Provider Facility Start: 01-07-2025 End: 01-07-2025 ambulatory [facility] Start: 12-24-2024 End: 12-24-2024 ambulatory Danitza Murray MD Facility:[facility] Start: 12-14-2024 End: 12-14-2024 Jordan GE Work Phone: [facility] Comment on above: Other insomnia Start: 12-10-2024 End: 12-11-2024 Jordan Prado MD Work Phone: [facility] Comment on above: Other insomnia Start: 11-18-2024 End: 11-19-2024 Refill Wily Prado MD Work Phone: [facility] Comment on above: Essential hypertensi on Start: 11-09-2024 End: 11-09-2024 Refill Wily Prado MD Work Phone: [facility] Comment on above: Other insomnia Start: 10-19-2024 End: 10-19-2024 ambulatory RUGAPOLINAR Palacio JOHAN Not Available Start: 10-12-2024 End: 10-12-2024 Telephone encounter Latonya GE Work Phone: [facility] Start: 10-11-2024 End: 10-11-2024 ambulatory WILY Palacio JOHAN Not Available Start: 10-11-2024 End: 10-11-2024 [...] polyneuropathy, with long-term current use of insulin ([facility]) (Primary Dx); Mixed hyperlipidemia (CMS/[facility]); Agitation states as acute reaction to exceptional (gross) stress; Essential hypertension ([facility]); Other insomnia; Hypertensive emergency ([facility]) Start: 05-08-2024 End: 05-08-2024 ambulatory RUGEN Hakeem JOHAN Not Available Start: 05-04-2024 End: 05-04-2024 [...] polyneuropathy, with long-term current use of insulin ([facility]) Essential hypertensi on ([facility]/HCC) Start: 01-17-2024 End: 01-17-2024 Office outpatient visit [...] 01-09-2024 End: 01-09-2024 Bamboo flowsheet Eddie Ambrocio [employer] [facility] Start: 01-09-2024 End: 01-09-2024 Bamboo flowsheet Eddie Ambrocio [employer] [facility] Start: 01-09-2024 End: 01-09-2024 ambulatory Eddie Ambrocio [employer] [facility] Comment on above: Muscle spasm of back (Primary Dx); Bilateral hip pain; Acute bilateral low back pain with sciatica, sciatica laterality unspecified; Lumbar spondylosis Start: 01-05-2024 End: 01-05-2024 ambulatory London Crabtree [employer] [facility] Comment on above: Muscle spasm of back (Primary Dx); Bilateral hip pain; Acute bilateral low back pain with sciatica, sciatica laterality unspecified; Lumbar spondylosis Start: 01-02-2024 End: 01-02-2024 ambulatory JALYN GUAN Not Available Start: 12-29-2023 End: 12-29-2023 ambulatory LONDON CRABTREE Not Available Start: 12-27-2023 End: 12-27-2023 ambulatory JALYN GUAN Not Available Start: 12-26-2023 Assay of hemosiderin , quant London Crabtree [employer] [facility] Start: 12-26-2023 End: 12-26-2023 ambulatory RUGEN M JOHAN Not Available Start: 12-20-2023 End: 12-20-2023 ambulatory LOGAN KAUR Not Available Start: 09-16-2023 End: 09-16-2023 Patient encounter procedure MD Wily Prado Work Phone: [facility] [place] Work Phone: Start: 09-16-2023 End: 09-16-2023 ambulatory MD Wily Prado Work Phone: [facility] Work Phone: Start: 06-28-2023 End: 06-28-2023 ambulatory London German [employer] [facility] Comment on above: Acute [...] hip pain Start: 06-16-2023 Bamboo flowsheet Som gauthierton PT Work Phone: [facility] Start: 06-16-2023 Bamboo flowsheet Som Ocampo kston PT Work Phone: [facility] Start: 06-16-2023 Telephone encounter Wily Swenson MD Work Phone: [facility] Comment on above: Med Refill ([facility] [place]) Acute bilateral low back pain with bilateral sciatica (Primary Dx) Start: 02-01-2023 ambulatory MD Wily landers Work Phone: [facility] Work Phone: Start: 02-01-2023 Registered Recurring MD Wily Prado Work Phone: [facility] Work Phone: Start: 11-02-2022 End: 11-02-2022 ambulatory MD Wily Prado Work Phone: [facility] Work Phone: Start: 11-02-2022 End: 11-02-2022 Registered Recurring MD Wily Prado Work Phone: [facility] Work Phone: Start: 07-30-2022 End: 07-30-2022 ambulatory MD Wily Prado Work Phone: [facility] Work Phone: Start: 07-30-2022 End: 07-30-2022 Registered Recurring MD Wily Prado Work Phone: [facility] Work Phone: Start: 04-26-2022 End: 04-26-2022 ambulatory MD Wily Prado Work Phone: [facility] Work Phone: Start: 04-26-2022 End: 04-26-2022 Registered Recurring MD Wily Prado Work Phone: [facility] Start: 02-22-2022 End: 02-22-2022 ambulatory MD Wily Prado Work Phone: [facility] Work Phone: Start: 02-22-2022 End: 02-22-2022 Registered Recurring MD Wily Prado Work Phone: [facility] Start: 02-17-2022 End: 02-17-2022 ambulatory UNKNOWN PROVIDER Facility:[facility] Start: 02-17-2022 End: 02-17-2022 Emergency department patient visit [facility] Emergency Triage, Treat and Transport Comment on above: Arrived Start: 01-21-2022 End: 01-21-[address] NATALIA LYN Facility:[facility] Start: 01-20-2022 End: 01-20-[address] MIKIE GARCIA Facility:[facility] Start: 01-20-2022 End: 01-20-2022 Departed Referred MD Wily Prado Work Phone: [facility] [place] Start: 01-15-2022 End: 01-19-2022 ambulatory UNKNOWN PROVIDER Facility:[facility] Start: 01-14-2022 End: 01-14-[address] LOGAN GATES Facility:[facility] Start: 01-12-2022 End: 01-12-2022 Registered Recurring MD Wily Prado Work Phone: [facility] Start: 01-12-2022 Registered Recurring MD [facility]ily Praod [facility] Start: 01-04-2022 End: 01-04-[address] GINGER BROOKS Facility:[facility] Start: 12-24-2021 End: 12-24-2021 ambulatory AUNG ZIMMERMAN Facility:[facility] Start: 11-24-2021 End: 11-24-[address] LOGAN GATES Facility:[facility] Start: 11-13-2021 Encounter for genera l adult medical examination without abnormal findings DR LATONYA JOSEPH [facility] Start: 11-10-2021 End: 11-11-[address] [...] Office outpatient vi sit 15 minutes Mikie REED Vascular Surgery Procedures Date Procedure Procedure Detail Performing Clinician Start: 10-11-2024 Hemoglobin glycosylated a1c Wily Prado MD Work Phone: Start: 09-16-2023 XR pre/post mri xray MD Wily Prado Work Phone: Start: 09-16-2023 MR lumbar spine wo con MD Wily Prado Work Phone: Start: 08-25-2023 History of carotid endarterectomy H/O carotid endarterectomy London Crabtree [employer] Start: 01-05-2022 Colonoscopy Som Hernandezraymond PT Work Phone: History of carotid endarterectomy [...] Visit [facility] [address] [facility] [address] [place] [address] Wily Prado MD [address] [place] [address] [facility] Start: 10-11-2024 End: 10-11-2025 US.doppler Carotid arteries - bilateral Vascular US carotid artery duplex bilateral Imaging Routine Bilateral carotid bruits Expected: 10/11/2024, Expires: 10/11/2025 [facility] Work Phone: Comment on above: Expected: 10/11/2024 , Expires: 10/11/2025 Start: 05-11-2024 End: 05-11-2024 Clinical Support 05/11/2024 10:00 AM EST Clinical Support [facility] [address] [place] [id number] [facility] Start: 05-10-2024 Urine screening [...] Visit [facility] [address] [place] [address] Wily Prado MD [address] [place] [address] [facility] Start: 01-15-2024 Influenza vaccination Influenza Vacc ine (#1) [facility] Start: 01-11-2024 End: 01-11-2024 ambulatory 01/11/2024 10:30 AM EDT Treatment [facility] [address] [place] [address] Jalyn Guan, PT [facility] Start: 01-09-2024 End: 01-09-2024 ambulatory [facility] Comment on above: Arrived Start: 12-28-2023 Medicare Annual Well ness (AWV) Medicare Annual Wellness (AWV) [facility] Start: 07-05-2023 End: 07-05-2023 ambulatory 07/05/2023 2:30 PM EST Treatment [facility] [address] [place] [address] London Crabtree PTA [facility] Start: 06-30-2023 End: 06-30-2023 [...] PT [address] [place] [address] Som Sheffield, PT [address] [place] [address] [facility] Start: 06-16-2023 End: 06-16-2023 ambulatory 06/16/2023 2:00 PM EST Treatment [facility] [address] [place] [address] Som Sheffield, PT [address] [place] [address] Arrived [facility] Comment on above: Arrived Start: 11-22-2022 Screening for malign ant neoplasm of colon FIT-DNA [facility] Start: 10-14-2022 Annual Wellness Visi t (G0439) Annual Wellness Visit (G0439) [facility] Start: 08-30-2022 [facility] Start: 08-23-2022 [facility] Start: 02-28-2022 Glaucoma screening Diabetes: R etinopathy Screening [facility] Start: 02-13-2022 Influenza vaccination Influenza Vacc ine (#1) [facility] Start: 02-04-2022 [facility] Start: 02-02-2022 COVID-19 Vaccine (5 - Booster for Pfizer series) COVID-19 Vaccine (5 - Bo[facility] Pfizer series[facility] Start: 01-28-2022 [facility] Start: 11-10-2021 Screening for malign ant neoplasm of colon [facility] Start: 11-07-2021 Pneumococcal vaccination Pneum ococcal [...] Hepatitis C screening Hepatitis C An tibody [facility] Start: 07-26-1965 Tetanus + diphtheria + acellular pertussis vaccine (product) Tdap Booster [facility] Start: 1947 Screening for malign ant neoplasm of colon [facility] Start: 1947 Screening for malign ant neoplasm of lung Lung Cancer Screening Shared Decision Making [facility] metabo lic 1999 panel - Serum or Plasma [facility] Comprehensive metabo lic 1999 panel - Serum or Plasma [facility] Comprehensive metabo lic 1999 panel - Serum or Plasma [facility] Ferritin [Mass/volum e] in Serum or Plasma [facility] Ferritin [Mass/volum e] in Serum or Plasma [facility] Work Phone: [facility] Immunizations Immunization Date Immunization Notes Care Provider Fa cility 01-06-2024 influenza, high dose seasonal, preservative-free Wily Prado MD Work Phone: [facility] 01-06-2024 influenza virus vaccine, unspecified formulation Wily Prado MD Work Phone: [facility] 06-17-2023 RSV, recombinant, protein subunit RSVpreF, adjuvant reconstitu, 120mcg/0.5mL, PF (Arexvy) Som Sheffield PT Work Phone: [facility] 03-21-2023 Influenza, Seasonal, Quadrivalent, Adjuvanted Som Sheffield PT Work Phone: [facility] 03-21-2023 influenza virus vaccine, unspecified formulation London Crabtree [employer] [facility] 03-19-2022 influenza, high dose seasonal, preservative-free Som Sheffield PT Work Phone: [facility] 01-04-2022 diphtheria, tetanus toxoids and pertussis vaccine [facility] 01-04-2022 tetanus toxoid, redu blake diphtheria toxoid, and acellular pertussis vaccine, adsorbed Som Sheffield PT Work Phone: [facility] 10-30-2021 tetanus toxoid, redu blake diphtheria toxoid, and acellular pertussis vaccine, adsorbed Som Sheffield PT Work Phone: [facility] 04-21-2021 Influenza, seasonal vaccine, quadrivalent, adjuvanted, 0.5mL dose, preservative free (ITS=894) [facility] 04-21-2021 Seasonal, trivalent, recombinant, injectable influenza vaccine, preservative free Som Sheffield PT Work Phone: [facility] 04-21-2021 influenza virus vaccine, unspecified formulation [facility] 11-07-2020 pneumococcal conjuga te vaccine, 13 valent [facility] 11-07-2020 zoster vaccine recombinant [facility] 07-14-2020 COVID-19 Vaccine Pfi zer - Documentation Purposes Only Mikie West Other [facility] 06-22-2020 COVID-19 Vaccine Pfi zer - Documentation Purposes Only Mikie West Other [facility] 2018 pneumococcal polysaccharide vaccine, 23 hira West Other [facility] 06-13-2009 novel [id number], preservative-free, injectable [facility] Payers Date Payer Category Payer Self-pay [id number] 2022 Private Health Insurance [employer] mber Subscriber Plan / Payer (Effective 2022-Present) Name: Nuvia Martin Relation to Subscriber: Self Name: Nuvia Martin Anshul Payer ID: Not on file Group ID: Not on file Type: Not on file Address: [place] [id number] 2022 Unknown [id number] .[id number] 2012 Medicare [id number] 1.13.56.2. [id number] 1959 Medicare [id number] 2.16.840.1.684323.19 1959 Unknown [id number] 2.16.840.1.092449.19 1947 Unknown [id number] 2.16.840.1.327775.3.579.2 .593 1947 Unknown [id number] 2.16.840.1.929196.3.579.2 .593 1947 Unknown [id number] 2.16.840.1.331713.3.579.2 .593 1947 Unknown [id number] 2.16.840.1.676497.3.579.2 .593 1947 Unknown [id number] 2.16.840.1.328724.3.579.2 .593 1947 Unknown [id number] 2.16.840.1.215993.3.579.2 .593 1947 Unknown [id number] 2.16.840.1.182484.3.579.2 .593 1947 Unknown [id number] 2.16.840.1.342568.3.579.2 .593 1947 Unknown [id number] 2.16.840.1.247453.3.579.2 .593 1947 Unknown [id number] 2.16.840.1.963216.3.579.2 .593 1947 Unknown [id number] 2.16.840.1.372772.3.579.2 .593 1947 Unknown [id number] 2.16.840.1.435310.3.579.2 .593 1947 Unknown [id number] 2.16.840.1.698888.3.579.2 .732 1947 Unknown [id number] 2.16.840.1.993508.3.579.2 .732 1947 Unknown [id number] 2.840.1.624513.3.579.2 .1259 1947 Unknown [id number] 2.16.840.1.200649.3.579.2 .1259 1947 Unknown [id number] 2.16.840.1.706953.3.579.2 .1259 1947 Unknown [id number] 2.16.840.1.454944.3.579.2 .1259 1947 Unknown [id number] 2.16.840.1.460672.3.579.2 .1259 1947 Unknown [id number] 2.16.840.1.354732.3.579.2 .9 1947 Unknown [id number] 2.16.840.1.911699.3.579.2 .9 1947 Unknown [id number] 2.16.840.1.043586.3.579.2 .1258 1947 Unknown [id number] 2.16.840.1.632091.3.579.2 .1258 1947 Unknown [id number] 2.16.840.1.200885.3.579.2 .1258 1947 Unknown [id number] 2.16.840.1.520493.3.579.2 .1258 1947 Unknown [id number] 2.16.840.1.646993.3.579.2 .1258 1947 Unknown [id number] 2.16.840.1.776206.3.579.2 .1258 1947 Unknown [id number] 2.16.840.1.943433.3.579.2 .196 1947 Unknown [id number] 2.16.840.1.409314.3.579.2 .196 1947 Unknown [id number] 2.16.840.1.921866.3.579.2 .196 Unknown [id number] 2.16.840.1.304093.3.579.2 .531 Social History Date Type Detail Facility Unknown if ever smoked [employer] Other Start: 05-10-2023 End: 10-11-2024 Sex Assigned At [employer] Other Start: 01-12-2022 End: 02-01-2023 Tobacco smoking status NHIS Smoker (finding) [facility] Start: 1945 Sex Assigned At Female [facility] Tobacco smoking stat us MDIS Tobacco smoking consumption unknown [facility] Start: 1945 Sex Assigned At Not on file [facility] Start: 12-27-2022 End: 05-08-2024 Tobacco smoking status NHIS Smokes tobacco daily [facility] History of tobacco use Cigarette Smoker N [facility] Start: 12-27-2022 End: 10-11-2024 Cigarettes smoked current (pack per day) - Reported 1.5 [facility] Start: 12-27-2022 End: 05-08-2024 Tobacco use and exposure Smokeless tobacco non-user [facility] Start: 05-10-2023 End: 10-11-2024 Alcohol intake Lifetime non-drinker (finding) [facility] Start: 11-10-2022 Tobacco Comment 11-20 cigs/day [facility] Start: 11-10-2022 Alcohol Comment Caffeine intake: more than 4 cups per day [facility] Medical Equipment Procedure Code Equipment Code Equipment Origin al Text Equipment Identifier Dates Endarterectomy, carotid Cardiovascular patch, animal-derived ()[id number] [facility] Start: 10-02-2020 Angioplasty of carotid artery with insertion of stent Bare-metal carotid artery stent ()[id number] [facility] Start: 12-17-2019 USE DIRECTED TWICE A DAY [id number] Start: 12-20-2022 1 each by Other route in the morning and 1 each before bedtime. [id number] USE TO TEST BLOO D SUGAR TWICE DAILY [id number] Start: 06-27-2023 Use as instructed [id number] Start: 05-31-2024 USE INSTRUCTED [id number] Start: 08-20-2024 USE TO TEST BLOO D SUGAR TWICE DAILY [id number] Start: 12-10-2024 Goals Date Patient Goal Desired Activity /State Functional Status Date Assessment Result Facility 10-11-2024 Patient Health Quest ionnaire 2 item (PHQ-2) [Reported] [facility] Clinical Notes 02-24-2021 to 12-14-2024 Telephone Encounter - LUMA Garcai - 12/14/2024 12:17 PM EDTTelephone Encounter - LUMA Garcia - 12/14/2024 12:17 PM EDTTelephone Encounter - VENANCIO SMALL - 12/14/2024 10:03 AM EDT Note Date & Type Note Facility 12-14-2024 Telephone encount er Note Resent, though it does show that [facility] filled this, hopefully she will not have an issue getting this at [facility] and the other Rx will be cancelled. [facility] 12-14-2024 Miscellaneous Notes Formattin g of this note might be different from the original. Resent, though it does show that [facility] filled this, hopefully she will not have an issue getting this at [facility] and the other Rx will be cancelled. Needs to go to [facility] documented in this encounter [facility] 12-14-2024 Telephone encount er Note Needs to go to [facility] 12-11-2024 Telephone encount er Note OARRS reviewed, Rx sent into patient's pharmacy. [facility] 12-11-2024 Miscellaneous Notes Formattin g of this note might be different from the original. OARRS reviewed, Rx sent into patient's pharmacy. documented in this encounter [facility] 11-19-2024 Telephone encount er Note Amlodipine sent. [facility] 11-19-2024 Miscellaneous Notes Formattin g of this note might be different from the original. Amlodipine sent. documented in this encounter [facility] 11-09-2024 Telephone encount er Note OARRS reviewed, Rx sent into patient's pharmacy. [facility] 11-09-2024 Miscellaneous Notes Formattin g of this note might be different from the original. OARRS reviewed, Rx sent into patient's pharmacy. [facility] 10/11/24 RF 10/11/24 documented in this encounter [facility] 11-09-2024 Telephone encount er Note OV 10/11/24 RF 10/11/24 [facility] 10-12-2024 Telephone encount er Note See TE from today. Rx will be filled at [facility]. [facility] 10-12-2024 Miscellaneous Notes Formattin g of this note might be different from the original. See TE from today. Rx will be filled at [facility]. Patient need refill on ALPRAZolam (Xanax) 0.5 MG . She asked if that could be sent to [facility] in [place]. documented in this encounter [facility] 10-12-2024 Telephone encount er Note [facility] called, questioning Xanax being sent to [facility]. Advised it was supposed to be filled at [facility], pt did want it filled there, not [facility]. They have a refill on file for her for 30 day supply and will proceed with filling it. They will contact [facility] and let them know that they are filling the Rx for the patient. [facility] 10-12-2024 Miscellaneous Notes Formattin g of this note might be different from the original. [facility] called, questioning Xanax being sent to [facility]. Advised it was supposed to be filled at [facility], pt did want it filled there, not [facility]. They have a refill on file for her for 30 day supply and will proceed with filling it. They will contact [facility] and let them know that they are filling the Rx for the patient. documented in this encounter [facility] 10-11-2024 Telephone encount er Note Patient need refill on ALPRAZolam (Xanax) 0.5 MG . She asked if that could be sent to [facility] in [place]. [facility] 10-11-2024 History of Presen t illness Narrative Associated Problem(s): Grade II diastolic dysfunction Needs better BP control Associated Problem(s): Benign hypertension ([facility]/HCC) Our specific goals, for your hypertension, is [...] being taken. She does not see a vehicle technician.Eye exam is current. Current Outpatient Medications on [...] tablet 3 insulin pen needle (Droplet Pen [place]) 32G x 4 mm [facility] USE INSTRUCTED 300 each 3 ipratropium-albuterol (Duo-Neb) [...] time each day at the same time. [place]-3 Fatty Acids (Fish Oil) 1000 MG [...] AMS (altered mental status) 10/30/2020 [facility] Anemia Arthritis Asthma Breast lump Bronchitis Cancer (CMS/HCC) cervical Carotid artery stenosis Cataract Chicken pox COPD (chronic obstructive pulmonary disease) (CMS/HCC) Diabetes mellitus (CMS/HCC) Disease of thyroid gland (CMS/HCC) Emphysema lung (CMS/HCC) History of being hospitalized 10/30/2020 AMS [facility] Hyperlipemia (CMS/HCC) Hypertension (CMS/HCC) Measles Vascular calcification [...] 04/13/2025) for Diabetes. documented in this encounter [facility] 10-11-2024 Telephone encount er Note Patient has appointment today. [facility] 10-11-2024 Miscellaneous Notes Formattin g of this note might be different from the original. Patient has appointment today. documented in this encounter [facility] 05-11-2024 History of Presen t illness Narrative Pt was here for a BP check documented in this encounter [facility] 05-08-2024 History of Presen t illness [...] time each day at the same time. [place]-3 Fatty Acids (Fish Oil) 1000 MG [...] AMS (altered mental status) 10/30/2020 [facility] Anemia Arthritis Asthma ([facility]/HCC) Breast lump Bronchitis Cancer ([facility]/HCC) cervical Carotid artery stenosis Cataract Chicken pox COPD (chronic obstructive pulmonary disease) ([facility]/HCC) Diabetes mellitus ([facility]/HCC) Disease of thyroid gland ([facility]/HCC) Emphysema lung ([facility]/HCC) History of being hospitalized 10/30/2020 AMS [facility] Hyperlipemia ([facility]) Hypertension ([facility]) Measles Vascular calcification Past Surgical History: Procedure [...] of healthy diet and exercise. Essential hypertension ([facility]/HCC) Relevant Medications amLODIPine (Norvasc) 10 MG tablet Hyperlipidemia ([facility]/HCC) This is a chronic medical condition that [...] long distances while on medicines. Hypertensive emergency ([facility]) Add Norvasc Take all current blood medications If with severe or stroke like symptoms got to ER Other Visit Diagnoses Other insomnia Relevant Medications ALPRAZolam (Xanax) 0.5 MG tablet Follow up in about 3 days (around 05/11/2024) for Hypertension. documented in this encounter [facility] 05-04-2024 Telephone encount er Note 7 day supply sent. [facility] 05-04-2024 Miscellaneous Notes Formattin g of this note might be different from the original. 7 day supply sent. Pt made an appt for tues with johan , but she is needing a refill on her xanax if willing to send in for her please send to [facility] she stated it helps her sleep at night documented in this encounter [facility] 05-04-2024 Telephone encount er Note Pt made an appt for tues with johan , but she is needing a refill on her xanax if willing to send in for her please send to [facility] she stated it helps her sleep at night [facility] 03-20-2024 Telephone encount er Note OARRS reviewed, Rx sent into patient's pharmacy. [facility] 03-20-2024 Miscellaneous Notes Formattin g of this note might be different from the original. OARRS reviewed, Rx sent into patient's pharmacy. documented in this encounter [facility] 02-15-2024 Telephone encount er Note OARRS reviewed, Rx sent into patient's pharmacy. [facility] 02-15-2024 Miscellaneous Notes Formattin g of this note might be different from the original. OARRS reviewed, Rx sent into patient's pharmacy. documented in this encounter [facility] 02-10-2024 Telephone encount er Note Atorvastatin sent. [facility] 02-10-2024 Miscellaneous Notes Formattin g of this note might be different from the original. Atorvastatin sent. documented in this encounter [facility] 02-10-2024 Telephone encount er Note Janumet sent [facility] 02-10-2024 Miscellaneous Notes Formattin g of this note might be different from the original. Janumet sent documented in this encounter [facility] 01-17-2024 History of Presen t illness [...] time each day at the same time. [place]-3 Fatty Acids (Fish Oil) 1000 MG [...] AMS (altered mental status) 10/30/2020 [facility] Anemia Arthritis Asthma (CMS/HCC) Breast lump Bronchitis Cancer (CMS/HCC) cervical Carotid artery stenosis Cataract Chicken pox COPD (chronic obstructive pulmonary disease) (CMS/HCC) Diabetes mellitus (CMS/HCC) Disease of thyroid gland (CMS/HCC) Emphysema lung (CMS/HCC) History of being hospitalized 10/30/2020 [facility] Hyperlipemia (CMS/HCC) Hypertension (CMS/HCC) Measles Vascular calcification [...] months (around 04/17/2024). documented in this encounter [facility] 01-11-2024 History of Presen t illness [...] her feet; denies any recent falls. Precautions: [place] Subjective: Pt states she has been hurting [...] and step therapy at this point. Pain: 10 Objective: PT Evaluation (12/27/2023) LUMBAR SPINE AROM: [...] instructed in home exercise program. - met Group Home Goals: To be met in 10 weeks [...] to home program. documented in this encounter [facility] 06-21-2023 History of Presen t illness [...] Physician Signature: Date: documented in this encounter [facility] 06-16-2023 Telephone encount er Note Requesting refill of Tramadol - not on current med list. [facility] 06-16-2023 Miscellaneous Notes Formattin g of this note might be different from the original. Requesting refill of Tramadol - not on current med list. documented in this encounter [facility] 06-16-2023 History of Presen t illness [...] Physician Signature: Date: documented in this encounter [facility] 11-02-2022 Progress note Note Date/Time November 02, 2022 10:01[facility] [place] at [address] [address] Hem/Onc Follow Up Note - OP Signed Patient: Nuvia Martin MR#: [id number] : 1945 Acct:[id number] Age/Sex: 77 / F Type: REG RCR [...] IV x 2 doses: 01/28/2022 and 02/04/2022 [facility] - Medical History Medical History: Medical [...] (Verified 11/02/22 09:45) Diarrhea bacitracin [From Neosporin (mvj-sqv-njdtz)] Adverse Reaction (Verified 11/02/22 09:45) Blister contact metal agent Adverse Reaction (Verified 11/02/22 09:45) Rash neomycin [From Neosporin (txu-vff-prrmt)] Adverse Reaction (Verified 11/02/22 09:45) Blister petrolatum,white [From Petroleum Jelly] Adverse Reaction (Verified 11/02/22 09:45) Blister polymyxin B [From Neosporin (bil-ptc-qjhjv)] Adverse Reaction (Verified 11/02/2308:45) Blister Home Medications [...] PO QNOON 12/17/19 [History Confirmed 11/02/22] omega 5-yyl-vgv-fish oil 1,000 mg (120 mg-180 mg) capsule [...] % (Auto) 60.6, Lymph % (Auto) 26.9, [place] % (Auto) 9.5, Eos % (Auto) 1.7, Baso % (Auto) 1.3, Nucleat RBC Rel Count 0.2, Neut # (Auto) 3.8, Lymph # (Auto) 1.7, [place] # (Auto) 0.6, Eos # (Auto) 0.1, [...] for coordination of care (as documented) and lmdx-xv-zthx counseling of patient and/or family. Dictated By: Taylor Tijerina APRN DD/ 1000 Signed By: <Electronically signed by CARMELA Tijerina> 11/02/22 1002 [facility] Work Phone: 1(982) 207-314203-28-2023 Progress note Author Taylor Tijerina [facility] August 10, 2022 11:00am Note Date/Time July 30, 2022 11: 10am [facility] [place] [address] Hem/Onc Follow Up Note - OP Signed Patient: Nuvia Martin MR#: [id number] : 1945 Acct:[id number] Age/Sex: 77 / F Type: REG RCR [...] sat low at 15.4% and ferritin 27.4 [facility] - Medical History Medical History: Medical [...] (Verified 07/30/22 10:44) Diarrhea bacitracin [From Neosporin (uvj-hed-rgfet)] Adverse Reaction (Verified 07/30/22 10:44) Blister contact metal agent Adverse Reaction (Verified 07/30/22 10:44) Rash neomycin [From Neosporin (vvo-jni-lxrhw)] Adverse Reaction (Verified 07/30/22 10:44) Blister petrolatum,white [From Petroleum Jelly] Adverse Reaction (Verified 07/30/22 10:44) Blister polymyxin B [From Neosporin (mlq-brc-wfcml)] Adverse Reaction (Verified 07/30/2309:44) Blister Home Medications [...] PO QNOON 12/17/19 [History Confirmed 07/30/22] omega 9-rxr-hwf-fish oil 1,000 mg (120 mg-180 mg) capsule [...] for coordination of care (as documented) and gwun-hy-eqio counseling of patient and/or family. Dictated By: Taylor Tijerina APRN DD/ 1110 Signed By: <Electronically signed by CARMELA Tijerina> 08/10/22 1100 [facility] Work Phone: 1(486) 448-148212-12-2022 Progress note Author Emily Laronvanessa [facility] April 26, 2022 3:23pm Note Date/Time April 26, 2022 3:16pm [facility] at [address] [address] Hem/Onc Follow Up Note - OP Signed Patient: Nuvia Martin MR#: [id number] : 1945 Acct:[id number] Age/Sex: 76 / F Type: REG RCR [...] history of asthma, hives, eczema or rhinitis. [facility] - Medical History Medical History: Medical [...] (Verified 04/26/22 09:36) Diarrhea bacitracin [From Neosporin (qqp-etw-khvvd)] Adverse Reaction (Verified 04/26/22 09:36) Blister contact metal agent Adverse Reaction (Verified 04/26/22 09:36) Rash neomycin [From Neosporin (zni-zzg-bobal)] Adverse Reaction (Verified 04/26/22 09:36) Blister petrolatum,white [From Petroleum Jelly] Adverse Reaction (Verified 04/26/22 09:36) Blister polymyxin B [From Neosporin (wqx-oke-sewsm)] Adverse Reaction (Verified 04/26/2209:36) Blister Home Medications [...] PO QNOON 12/17/19 [History Confirmed 04/26/22] omega 4-lnn-qmf-fish oil 1,000 mg (120 mg-180 mg) capsule [...] 2.5 mcg-olodaterol 2.5 mcg/actuation mist for inhalation ([employer])olto Respimat) 2 puff inhalation QHS 09/18/20 [History [...] % (Auto) 68.2, Lymph % (Auto) 20.8, [place] % (Auto) 6.9, Eos % (Auto) 3.3, Baso % (Auto) 0.8, Nucleat RBC Rel Count 0.1, Neut # (Auto) 4.7, Lymph # (Auto) 1.4, [place] # (Auto) 0.5, Eos # (Auto) 0.2, [...] for coordination of care (as documented) and snoh-zl-kqhl counseling of patient and/or family. Dictated By: Emily Degroot APRN DD/ 151 Signed By: <Electronically signed by CARMELA Degroot> 04/26/22 1523 [facility] Work Phone: 1(841) 824-781710-10-2022 Progress note Author Marisabel Noel [facility] February 22, 2022 12:49pm Note Date/Time February 22, 2022 1 2:45pm [facility] [place] [address] Hem/Onc Follow Up Note - OP Signed Patient: Nuvia Martin MR#: [id number] : 1945 Acct:[id number] Age/Sex: 76 / F Type: REG RCR [...] history of asthma, hives, eczema or rhinitis. [facility] - Medical History Medical History: Medical [...] (Verified 02/22/22 11:05) Diarrhea bacitracin [From Neosporin (erj-uaj-dyauj)] Adverse Reaction (Verified 02/22/22 11:05) Blister contact metal agent Adverse Reaction (Verified 02/22/22 11:05) Rash neomycin [From Neosporin (irg-vut-rslnx)] Adverse Reaction (Verified 02/22/22 11:05) Blister petrolatum,white [From Petroleum Jelly] Adverse Reaction (Verified 02/22/22 11:05) Blister polymyxin B [From Neosporin (dil-dxc-aenac)] Adverse Reaction (Verified 02/22/2211:05) Blister Home Medications [...] PO QNOON 12/17/19 [History Confirmed 02/22/22] omega 6-byt-ugw-fish oil 1,000 mg (120 mg-180 mg) capsule [...] % (Auto) N/A, Lymph % (Auto) N/A, [place] % (Auto) N/A, Eos % (Auto) N/A,Baso % (Auto) N/A, Neut # (Auto) N/A, Lymph # (Auto) N/A, [place] # (Auto) N/A, Eos# (Auto) N/A, Baso [...] for coordination of care (as documented) and bidx-ft-luzo counseling of patient and/or family. Dictated By: Marisabel Noel MD DD/ 1245 Signed By: <Electronically signed by Marisabel Noel MD> 02/22/22 1244 [facility] Work Phone: 1(554) 211-819010-05-2022 History of Present illness Narrative* Cassidy Julio MD - 02/17/2022 9:17 AM EDT Images from the original note were not included. EMERGENCY TRIAGE, TREAT AND TRANSPORT (ET3) DOCUMENTATION OF TELEHEALTH VISIT Date / Time: 02/17/2022916 Name: Nuvia Martin : 1945 SSN: [id number] EMS Agency: [facility] [x] Verbal consent obtained [] Implied [...] by: Cassidy Julio MD documented in this [id number] Consult note Author Maciel Sofia [facility] January 19, 2022 2:52pm Note Date/Time January 12, 2022 12 :54pm [facility] [place] [id number] Hem/Onc Consult Note - OP Signed Patient: Nuvia Martin MR#: [id number] : 1945 Acct:[id number] Age/Sex: 76 / F Type: REG RCR [...] Unable to locate recent iron studies from [facility]. She will have a colonoscopy and [...] fevers, chills, sweats, or unintentional weight loss. [facility] - Medical History Medical History: Medical [...] (Verified 01/12/22 11:14) Diarrhea bacitracin [From Neosporin (fid-euk-ktath)] Adverse Reaction (Verified 01/12/22 11:14) Blister contact metal agent Adverse Reaction (Verified 01/12/22 11:14) Rash neomycin [From Neosporin (zmf-sef-boksl)] Adverse Reaction (Verified 01/12/22 11:14) Blister petrolatum,white [From Petroleum Jelly] Adverse Reaction (Verified 01/12/22 11:14) Blister polymyxin B [From Neosporin (pob-tbk-lujhs)] Adverse Reaction (Verified 01/12/2211:14) Blister Home Medications [...] PO QNOON 12/17/19 [History Confirmed 01/12/22] omega 6-clc-vsx-fish oil 1,000 mg (120 mg-180 mg) capsule [...] for coordination of care (as documented) and pxib-ot-xnex counseling of patient and/or family. Dictated By: Taylor Tijerina APRN DD/ 1241 Signed By: <Electronically signed by CARMELA Tijerina> 01/12/22 1403 <Electronically signed by Maicel Sofia II, DO> 01/19/22 1452 [facility] Work Phone: [phone] 181-151508-22-2022 NotePROCEDURE: XR ELBOW RT 2V HISTORY: Bone injury ; acute elbow pain after falling COMPARISON: None. FINDINGS: BONES:No fracture, acute abnormality, or significant arthropathy. SOFT TISSUES:Soft tissue swelling posterior to the proximal forearm. EFFUSION:None visible. OTHER: Negative. IMPRESSION: 1. No acute bone abnormality or joint effusion. Electronically authenticated by: GINGER BROOKS Date: 2022-01-04 13:57[facility]10-12-2021 Evaluation note* Encounter Date Diagnosis Assessment [...] readiness for smoking cessation at this time. [employer] Other Evaluation note* Diagnosis Onset Date Resolution Status Iron deficiency anemia acute [facility] Work Phone: Evaluation note* Diagnosis Fall, initial encounter- [facility] Diagnosis Acute bilateral low back pain with bilateral sciatica- Primary documented in this encounter [facility] Healthcare[facility]* Diagnosis Acute bilateral low back pain with sciatica, sciatica laterality unspecified- Primary Lumbar spondylosis Lumbosacral spondylosis without myelopathy Bilateral hip pain Pain in joint, pelvic region and thigh documented in this encounter [facility] HealthcareEvaluation note* Diagnosis Acute bilateral low back pain with sciatica, sciatica laterality unspecified- Primary Lumbar spondylosis Lumbosacral spondylosis without myelopathy Bilateral hip pain Pain in joint, pelvic region and thigh documented in this encounter [facility] HealthcareEvaluation noteNo assessment information [facility] Work Phone: Evaluation note* Diagnosis Other insomnia documented in this encounter [facility] HealthcareEvaluation note* Diagnosis Acute bilateral low [...] (CMS/HCC) Other insomnia documented in this encounter [facility] HealthcareEvaluation note* Diagnosis Acute bilateral low [...] (CMS/HCC) Other insomnia documented in this encounter [facility] [...] polyneuropathy, with long-term current use of insulin ([facility]) documented in this encounter [facility]* Diagnosis Essential hypertension ([facility]) Unspecified essential hypertension documented in this encounter [facility]* Diagnosis Acute bilateral low back pain with sciatica, sciatica laterality unspecified- Primary Type 2 diabetes mellitus with diabetic polyneuropathy, with long-term current use of insulin (CMS/[facility]) Lumbar spondylosis Lumbosacral spondylosis without myelopathy Lumbar adjacent segment disease with spondylolisthesis- Primary Acute bilateral low back pain with bilateral sciatica Type 2 diabetes mellitus with diabetic polyneuropathy, with long-term current use of insulin (CMS/[facility]) Bilateral carotid artery stenosis Occlusion and stenosis of carotid artery without mention of cerebral infarction Claustrophobia (CMS/[facility]) Other isolated or specific phobias Type 2 diabetes mellitus with diabetic peripheral angiopathy without gangrene, without long-term current use of insulin (CMS/[facility]) Hypervitaminosis B6- Primary Other hyperalimentation Acute bilateral low back pain with bilateral sciatica Lumbar adjacent segment disease with spondylolisthesis Lumbar spondylosis Lumbosacral spondylosis without myelopathy Stenosis of carotid artery, unspecified laterality Lumbar paraspinal muscle spasm Other symptoms referable to back Carpal tunnel syndrome, bilateral Carpal tunnel syndrome Migraine without aura and without status migrainosus, not intractable (CMS/[facility]) OLIVA (obstructive sleep apnea) Obstructive sleep apnea (adult) (pediatric) Routine general medical examination at health care facility- Primary Routine general medical examination at a health care facility Type 2 diabetes mellitus with diabetic peripheral angiopathy without gangrene, without long-term current use of insulin ([facility]/HCC) Peripheral vascular disease, unspecified (CMS/HCC) Peripheral vascular disease, unspecified Heart failure, unspecified (CMS/HCC) Heart failure, unspecified Epilepsy, unspecified, not intractable, without status epilepticus (CMS/[facility]) Other secondary pulmonary hypertension (CMS/[facility]) Atherosclerosis of aorta ([facility]) Atherosclerosis of aorta Medicare annual wellness visit, subsequent Diabetes mellitus with peripheral vascular disease ([facility]) Type 2 diabetes mellitus with diabetic polyneuropathy, with long-term current use of insulin (CMS/HCC)- Primary Mixed hyperlipidemia (CMS/[facility]) Mixed hyperlipidemia Agitation states as acute reaction to exceptional (gross) stress Predominant psychomotor disturbance as reaction to stress Essential hypertension ([facility]) Unspecified essential hypertension Other insomnia Hypertensive emergency ([facility]) documented in this encounter [facility] HealthcareEvaluation note* Diagnosis Acute bilateral low back pain with sciatica, sciatica laterality unspecified- Primary Type 2 diabetes mellitus with diabetic polyneuropathy, with long-term current use of insulin (/[facility]) Lumbar spondylosis Lumbosacral spondylosis without myelopathy Lumbar adjacent segment disease with spondylolisthesis- Primary Acute bilateral low back pain with bilateral sciatica Type 2 diabetes mellitus with diabetic polyneuropathy, with long-term current use of insulin (/[facility]) Bilateral carotid artery stenosis Occlusion and stenosis of carotid artery without mention of cerebral infarction Claustrophobia (/[facility]) Other isolated or specific phobias Type 2 diabetes mellitus with diabetic peripheral angiopathy without gangrene, without long-term current use of insulin (/[facility]) Hypervitaminosis B6- Primary Other hyperalimentation Acute bilateral [...] (adult) (pediatric) Routine general medical examination at [facility] care facility- Primary Routine general medical examination at a [facility] facility Type 2 diabetes mellitus with diabetic [...] subsequent Diabetes mellitus with peripheral vascular disease (CMS/[facility]) Type 2 diabetes mellitus with diabetic polyneuropathy, with long-term current use of insulin (CMS/HCC)- Primary Mixed hyperlipidemia (CMS/HCC) Mixed hyperlipidemia Agitation states as acute reaction to exceptional (gross) stress Predominant psychomotor disturbance as reaction to stress Essential hypertension (CMS/HCC) Unspecified essential hypertension Other insomnia Hypertensive emergency (/[facility]) Essential hypertension (/[facility]) Unspecified essential hypertension documented in this encounter [facility] HealthcareEvaluation note* Diagnosis Acute bilateral low back pain with sciatica, sciatica laterality unspecified- Primary Type 2 diabetes mellitus with diabetic polyneuropathy, with long-term current use of insulin (/[facility]) Lumbar spondylosis Lumbosacral spondylosis without myelopathy Lumbar adjacent segment disease with spondylolisthesis- Primary Acute bilateral low back pain with bilateral sciatica Type 2 diabetes mellitus with diabetic polyneuropathy, with long-term current use of insulin (/[facility]) Bilateral carotid artery stenosis Occlusion and stenosis of carotid artery without mention of cerebral infarction Claustrophobia (/[facility]) Other isolated or specific phobias Type 2 diabetes mellitus with diabetic peripheral angiopathy without gangrene, without long-term current use of insulin (/[facility]) Hypervitaminosis B6- Primary Other hyperalimentation Acute bilateral [...] gangrene, without long-term current use of insulin (/HCC) Peripheral vascular disease, unspecified (CMS/HCC) Peripheral vascular disease, unspecified Heart failure, unspecified (CMS/HCC) Heart failure, unspecified Epilepsy, unspecified, not intractable, without status epilepticus (CMS/[facility]) Other secondary pulmonary hypertension (CMS/[facility]) Atherosclerosis of aorta (CMS/[facility]) Atherosclerosis of aorta Medicare annual wellness visit, subsequent Diabetes mellitus with peripheral vascular disease (/[facility]) Type 2 diabetes mellitus with diabetic polyneuropathy, with long-term current use of insulin (/[facility])- Primary Mixed hyperlipidemia (/[facility]) Mixed hyperlipidemia Agitation states as acute reaction to exceptional (gross) stress Predominant psychomotor disturbance as reaction to stress Essential hypertension (CMS/[facility]) Unspecified essential hypertension Other insomnia Hypertensive emergency ([facility]) Other insomnia documented in this encounter [facility]* Diagnosis Acute bilateral low back pain with sciatica, sciatica laterality unspecified- Primary Type 2 diabetes mellitus with diabetic polyneuropathy, with long-term current use of insulin (/[facility]) Lumbar spondylosis Lumbosacral spondylosis without myelopathy Lumbar adjacent segment disease with spondylolisthesis- Primary Acute bilateral low back pain with bilateral sciatica Type 2 diabetes mellitus with diabetic polyneuropathy, with long-term current use of insulin (/[facility]) Bilateral carotid artery stenosis Occlusion and stenosis of carotid artery without mention of cerebral infarction Claustrophobia ([facility]) Other isolated or specific phobias Type 2 diabetes mellitus with diabetic peripheral angiopathy without gangrene, without long-term current use of insulin (/[facility]) Hypervitaminosis B6- Primary Other hyperalimentation Acute bilateral low back pain with bilateral sciatica Lumbar adjacent segment disease with spondylolisthesis Lumbar spondylosis Lumbosacral spondylosis without myelopathy Stenosis of carotid artery, unspecified laterality Lumbar paraspinal muscle spasm Other symptoms referable to back Carpal tunnel syndrome, bilateral Carpal tunnel syndrome Migraine without aura and without status migrainosus, not intractable (CMS/[facility]) OLIVA (obstructive sleep apnea) Obstructive sleep apnea (adult) (pediatric) Routine general medical examination at health care facility- Primary Routine general medical examination at a health care facility Type 2 diabetes mellitus with diabetic peripheral angiopathy without gangrene, without long-term current use of insulin (CMS/[facility]) Peripheral vascular disease, unspecified (CMS/HCC) Peripheral vascular disease, unspecified Heart failure, unspecified (CMS/HCC) Heart failure, unspecified Epilepsy, unspecified, not intractable, without status epilepticus Other secondary pulmonary hypertension Atherosclerosis of aorta ([facility]/HCC) Atherosclerosis of aorta Medicare annual wellness visit, subsequent Diabetes mellitus with peripheral vascular disease ([facility]) Type 2 diabetes mellitus with diabetic polyneuropathy, with long-term current use of insulin (/HCC)- Primary Mixed hyperlipidemia (/HCC) Mixed hyperlipidemia Agitation states as acute reaction to exceptional (gross) stress Predominant psychomotor disturbance as reaction to stress Essential hypertension (/) Unspecified essential hypertension Other insomnia Hypertensive emergency (/[facility]) Other insomnia documented in this encounter [facility] HealthcareEvaluation note* Diagnosis Acute bilateral low back pain with sciatica, sciatica laterality unspecified- Primary Type 2 diabetes mellitus with diabetic polyneuropathy, with long-term current use of insulin (/) Lumbar spondylosis Lumbosacral spondylosis without myelopathy Lumbar adjacent segment disease with spondylolisthesis- Primary Acute bilateral low back pain with bilateral sciatica Type 2 diabetes mellitus with diabetic polyneuropathy, with long-term current use of insulin (/[facility]) Bilateral carotid artery stenosis Occlusion and stenosis of carotid artery without mention of cerebral infarction Claustrophobia (/[facility]) Other isolated or specific phobias Type 2 diabetes mellitus with diabetic peripheral angiopathy without gangrene, without long-term current use of insulin (/[facility]) Hypervitaminosis B6- Primary Other hyperalimentation Acute bilateral low back pain with bilateral sciatica Lumbar adjacent segment disease with spondylolisthesis Lumbar spondylosis Lumbosacral spondylosis without myelopathy Stenosis of carotid artery, unspecified laterality Lumbar paraspinal muscle spasm Other symptoms referable to back Carpal tunnel syndrome, bilateral Carpal tunnel syndrome Migraine without aura and without status migrainosus, not intractable (/[facility]) OLIVA (obstructive sleep apnea) Obstructive sleep apnea (adult) (pediatric) Routine general medical examination at health care facility- Primary Routine general medical examination at a health care facility Type 2 diabetes mellitus with diabetic peripheral angiopathy without gangrene, without long-term current use of insulin (/HCC) Peripheral vascular disease, unspecified (CMS/HCC) Peripheral vascular disease, unspecified Heart failure, unspecified (CMS/HCC) Heart failure, unspecified Epilepsy, unspecified, not intractable, without status epilepticus Other secondary pulmonary hypertension Atherosclerosis of aorta ([facility]/HCC) Atherosclerosis of aorta Medicare annual wellness visit, [...] bruits Other insomnia documented in this encounter [facility] HealthcareEvaluation note* Diagnosis Acute bilateral low back [...] Unspecified essential hypertension documented in this encounter [facility] HealthcareEvaluation note* Diagnosis Acute bilateral low back [...] History pgeisert Hospitalization History ACUTE DELIRIUM; 10/02/20 [employer] Other Progress note Author [facility] November 02, 2022 10:02am Note Date/Time November 02, 2022 10:0 1am [facility] [place] [address] Hem/Onc Follow Up Note - OP Signed Patient: Nuvia Martin MR#: [id number] : 1945 Acct:[id number] Age/Sex: 77 / F Type: REG RCR [...] IV x 2 doses: 01/28/2022 and 02/04/2022 [facility] - Medical History Medical History: Medical [...] (Verified 11/02/22 09:45) Diarrhea bacitracin [From Neosporin (nyq-nvz-bktel)] Adverse Reaction (Verified 11/02/22 09:45) Blister contact metal agent Adverse Reaction (Verified 11/02/22 09:45) Rash neomycin [From Neosporin (qvl-ulo-xtbwi)] Adverse Reaction (Verified 11/02/22 09:45) Blister petrolatum,white [From Petroleum Jelly] Adverse Reaction (Verified 11/02/22 09:45) Blister polymyxin B [From Neosporin (qqx-ooc-wdbld)] Adverse Reaction (Verified 11/02/2308:45) Blister Home Medications [...] PO QNOON 12/17/19 [History Confirmed 11/02/22] omega 5-jev-lle-fish oil 1,000 mg (120 mg-180 mg) capsule [...] % (Auto) 60.6, Lymph % (Auto) 26.9, [place] % (Auto) 9.5, Eos % (Auto) 1.7, Baso % (Auto) 1.3, Nucleat RBC Rel Count 0.2, Neut # (Auto) 3.8, Lymph # (Auto) 1.7, [place] # (Auto) 0.6, Eos # (Auto) 0.1, [...] for coordination of care (as documented) and fxeu-fp-wzow counseling of patient and/or family. Dictated By: Taylor Tijerina APRN DD/ 1000 Signed By: <Electronically signed by CARMELA Tijerina> 11/02/22 1002 [facility] Work Phone: Progress note Author Taylor Tijerina [facility] February 01, 2023 11:23am Note Date/Time February 01, 2023 11:04am [place] [address] Hem/Onc Follow Up Note - OP Signed Patient: Nuvia Martin MR#: [id number] : 1945 Acct:[id number] Age/Sex: 77 / F Type: REG RCR [...] soon for this labs good- iron WNL 9/19/23 she feels good, energy is stable she [...] for coordination of care (as documented) and mloh-dk-dbcl counseling of patient and/or family. [facility] - Medical History Medical History: Medical [...] % (Auto) 61.7, Lymph % (Auto) 26.2, [place] % (Auto) 9.2, Eos % (Auto) 2.0, Baso % (Auto) 0.9, Nucleat RBC Rel Count 0.1, Neut # (Auto) 4.2, Lymph # (Auto) 1.8, [place] # (Auto) 0.6, Eos # (Auto) 0.1, Baso # (Auto) 0.1 - Home Medications and Allergies Allergies/Adverse Reactions: Allergies cimetidine [From Tagamet] Allergy (Verified 02/01/23 10:56) Diarrhea bacitracin [From Neosporin (jkr-xvg-qsmqv)] Adverse Reaction (Verified 02/01/23 10:56) Blister contact metal agent Adverse Reaction (Verified 02/01/23 10:56) Rash neomycin [From Neosporin (nfi-car-ihgii)] Adverse Reaction (Verified 02/01/23 10:56) Blister petrolatum,white [From Petroleum Jelly] Adverse Reaction (Verified 02/01/23 10:56) Blister polymyxin B [From Neosporin (xil-vph-tgjtf)] Adverse Reaction (Verified 02/01/2310:56) Blister Home Medications: [...] PO QNOON 12/17/19 [History Confirmed 02/01/23] omega 4-vuy-duh-fish oil 1,000 mg (120 mg-180 mg) capsule [...] <Electronically signed by CARMELA Tijerina> 02/01/23 1123 [facility] Work Phone: Reason for referral (narrative)* Consultation (Routine) - Pending Review Specialty Diagnoses / Procedures Referred By Contac t Referred To Contact Pain Medicine Diagnoses Lumbar spondylosis 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 claudication Procedures MA OFFICE/OUTPATIENT NEW HIGH MDM 60 MINUTES Wily Prado MD [address] [facility] [address] [place] [address] Danitza Murray MD [address] [place] [address] Referral ID Status Reason Start Date Expiration Date Visits Requested Visits Authorized [id number] Pending Review Specialty Services Required 01/17/2024 07/15/2024 [...] section and content) DATE CREATED AUTHOR 10/04/2021 [facility] dical Specialist DATE CREATED AUTHOR AUTHOR'S ORGANIZ ATION 01/25/2022 [facility] DATE CREATED AUTHOR AUTHOR'S ORGANIZ ATION 02/23/2022 [facility] DATE CREATED AUTHOR AUTHOR'S ORGANIZ ATION 03/09/2024 [facility] DATE CREATED AUTHOR AUTHOR'S ORGANIZ ATION 05/13/2024 [facility] DATE CREATED AUTHOR AUTHOR'S ORGANIZ ATION 10/23/2024 [facility]ists EPIC DATE CREATED AUTHOR AUTHOR'S ORGANIZ ATION 01/12/2025 [facility] REASON FOR VISIT (unrecogniz ed section and content) Reason Comments Fall Reason Onset Date Comments Med Refill 06/16/2023 [facility] [place] Specialty Diagnoses / Procedures Referred By David chin Referred To Contact Physical Therapy Diagnoses Acute bilateral low back pain with sciatica, sciatica laterality unspecified Lumbar spondylosis Procedures MA OFFICE/OUTPATIENT NEW HIGH MDM 60 MINUTES Wily Prado MD [address] [facility] [address] [place] [address] Som Sheffield, PT [address] [facility] [address] [place] [address] Referral ID Status Reason Start Date Expiration Date Visits Requested Visits Authorized [id number] Authorized Specialty Services Required 3 11/06/2023 10 10 Reason Onset Date Comments Med Refill 02/15/2024 Reason Onset Date Comments Med Refill 03/20/2024 Reason Onset Date Comments Med Refill 03/26/2024 Specialty Diagnoses / Procedures Referred By Contac t Referred To Contact Physical Therapy Diagnoses Muscle spasm of back lumbar paraspinal muscle spasms Procedures consult and treat Logan Kaur MD [address] [facility] [address] [place] [address] Jalyn Guan, PAVEL Referral ID Status Reason Start Date Expiration Date Visits Requested Visits Authorized [id number] Authorized Consult and Treat 12/20/2023 06/17/2024 15 [...] vider Active Taylor Tijerina APRN Attending Provider Mika tillman Team Status: Inactive Member Role Status Dates Wily Prado MD Primary Care Provider Active Jesse Tran MD Attending Provider Active Production Planner Relationship Specialty Start Date End Date Wily Prado MD [address] [facility] [address] [place] [address] PCP - ACO Reach 10/07/22 Wily Prado MD [address] [facility] [address] [place] [address] PCP - General Family Medicine 10/28/22 Production Planner Relationship Specialty Start Date End Date Wily Prado MD [address] [facility] [address] [place] [address] PCP - ACO Reach 10/07/22 Wily Prado MD [address] [facility] [address] [place] [address] PCP - General Family Medicine 10/28/22 Production Planner Relationship Specialty Start Date End Date Wily Prado MD [address] [facility] [address] [place] [address] PCP - ACO Reach 10/07/22 Wily Prado MD [address] [facility] [address] [place] [address] PCP - General Family Medicine 10/28/22 Production Planner Relationship Specialty Start Date End Date Wily rPado MD [address] [facility] [address] [place] [address] PCP - ACO Reach 10/07/22 Wily Prado MD [address] [facility] [address] [place] [address] PCP - General Family Medicine 10/28/22 Production Planner Relationship Specialty Start Date End Date Wily Prado MD [address] [facility] [address] [place] [address] PCP - ACO Reach 10/07/22 Wily Prado MD [address] [facility] [address] [place] [address] PCP - General Family Medicine 10/28/22 Production Planner Relationship Specialty Start Date End Date Wily Prado MD [address] [facility] [address] [place] [address] PCP - ACO Reach 10/07/22 Wily Prado MD [address] [facility] [address] [place] [address] PCP - General Family Medicine 10/28/22 Production Planner Relationship Specialty Start Date End Date Wily Prado MD [address] [facility] [address] [place] [address] PCP - ACO Reach 10/07/22 Wily Prado MD [address] [facility] [address] [place] [address] PCP - General Family Medicine 10/28/22 Production Planner Relationship Specialty Start Date End Date Wily Prado MD [address] [facility] [address] [place] [address] PCP - ACO Reach 10/07/22 Wily Prado MD [address] [facility] [address] [place] [address] PCP - General Family Medicine 10/28/22 Production Planner Relationship Specialty Start Date End Date Wily Prado MD [address] [facility] [address] [place] [address] PCP - ACO Reach 10/07/22 Wily Prado MD [address] [facility] [address] [place] [address] PCP - General Family Medicine 10/28/22 Production Planner Relationship Specialty Start Date End Date Wily Prado MD [address] [facility] [address] [place] [address] PCP - ACO Reach 10/07/22 Wily Prado MD [address] [facility] [address] [place] [address] PCP - General Family Medicine 10/28/22 Production Planner Relationship Specialty Start Date End Date Wily Prado MD [address] [facility] [address] [place] [address] PCP - ACO Reach 10/07/22 Wily Prado MD [address] [facility] [address] [place] [address] PCP - General Family Medicine 10/28/22 Production Planner Relationship Specialty Start Date End Date Wily Prado MD [address] [facility] [address] [place] [address] PCP - ACO Reach 10/07/22 Wily Prado MD [address] [facility] [address] [place] [address] PCP - General Family Medicine 10/28/22 Production Planner Relationship Specialty Start Date End Date Wily Prado MD [address] [facility] [address] [place] [address] PCP - ACO Reach 10/07/22 Wily Prado MD [address] [facility] [address] [place] [address] PCP - General Family Medicine 10/28/22 Production Planner Relationship Specialty Start Date End Date Wily Prado MD [address] [facility] [address] [place] [address] PCP - ACO Reach 10/07/22 Wily Prado MD [address] [facility] [address] [place] [address] PCP - General Family Medicine 10/28/22 Production Planner Relationship Specialty Start Date End Date Wily Prado MD [address] [facility] [address] [place] [address] PCP - ACO Reach 10/07/22 Wily Prado MD [address] [facility] [address] [place] [address] PCP - General Family Medicine 10/28/22 Production Planner Relationship Specialty Start Date End Date Wily Prado MD [address] [facility] [address] [place] [address] PCP - ACO Reach 10/07/22 Wily Prado MD [address] [facility] [address] [place] [address] PCP - General Family Medicine 10/28/22 Production Planner Relationship Specialty Start Date End Date Wily Prado MD [address] [facility] [address] [place] [address] PCP - ACO Reach 10/07/22 Wily Prado MD [address] [facility] [address] [place] [address] PCP - General Family Medicine 10/28/22 Production Planner Relationship Specialty Start Date End Date Wily Prado MD [address] [facility] [address] [place] [address] PCP - ACO Reach 10/07/22 Wily Prado MD [address] [facility] [address] [place] [address] PCP - General Family Medicine 10/28/22 Production Planner Relationship Specialty Start Date End Date Wily Prado MD [address] [facility] [address] [place] [address] PCP - ACO Reach 10/07/22 Wily Prado MD [address] [facility] [address] [place] [address] PCP - General Family Medicine 10/28/22 Production Planner Relationship Specialty Start Date End Date Wily Prado MD [address] [facility] [address] [place] [address] PCP - ACO Reach 10/07/22 Wily Prado MD [address] [facility] [address] [place] [address] PCP - General Family Medicine 10/28/22 Production Planner Relationship Specialty Start Date End Date Wily Prado MD [address] [facility] [address] [place] [address] PCP - ACO Reach 10/07/22 Wily Prado MD [address] [facility] [address] [place] [address] PCP - General Family Medicine 10/28/22 Production Planner Relationship Specialty Start Date End Date Wily Prado MD [address] [facility] [address] [place] [address] PCP - ACO Reach 10/07/22 Wily Prado MD [address] [facility] [address] [place] [address] PCP - General Family Medicine 10/28/22 Production Planner Relationship Specialty Start Date End Date Wily Prado MD [address] [facility] [address] [place] [address] PCP - ACO Reach 10/07/22 Wily Prado MD [address] [facility] [address] [place] [address] PCP - General Family Medicine 10/28/22 Goals [...] BE BASED ON THE PRIMARY CLINICAL RECORDS. [facility]. provides no warranty or guarantee of the accuracy or completeness of information in this document.
--- NOTE | 2025-01-17 14:32 | PM.CN ---
Consult Note: HPI Data of Consult Patient: known to practice within the last 3 years Consult date: 01/17/25 Requesting Physician: Maria Antonia Powers NP Primary Care Provider: WILY PRADO Consult Narrative Reason for consult: back pain Narrative: Lovely Martin a pleasant 79 year old female presents for evaluation of low back pain secondary to lumbar stenosis, lumbar ddd, and lumbar spondylosis. pt has failed to benefit from > 6 weeks of PT/HEP, heat, ice, tylenol, nsaids. previously underwent bilateral L4-5 L5-S1 mbb #1 with no improvement while anesthetized and bilateral L4-5 TFESI with less than 50% improvement per pt. pain today 2/10 increasing to 6/10 with standing walking and lifting, improves significantly with forward flexion and sitting. SHANNAN 22%. originally 35% cc:: CC: Maria Antonia Powers NP [facility] Medical History (Updated 12/27/24 @ 12:59 by Maria Antonia Powers NP) Low back pain ?M54.50 - Low back pain, unspecified (ICD-10) Smoker ?F17.200 - Nicotine dependence, unspecified, uncomplicated (ICD-10) PVD (peripheral vascular disease) ?I73.9 - Peripheral vascular disease, unspecified (ICD-10) Type 2 diabetes mellitus with hyperglycemia ?E11.65 - Type 2 diabetes mellitus with hyperglycemia (ICD-10) Lumbar degenerative disc disease ?M51.36 - Other intervertebral disc degeneration, lumbar region (ICD-10) Hypertension ?I10 - Essential (primary) hypertension (ICD-10) Medication side effect ?T88.7XXA - Unspecified adverse effect of drug or medicament, initial encounter (ICD-10) Chronic back pain ?M54.9 - Dorsalgia, unspecified (ICD-10) ?G89.29 - Other chronic pain (ICD-10) Diabetes ?E11.9 - Type 2 diabetes mellitus without complications (ICD-10) Choking ?T17.308A - Unspecified foreign body in larynx causing other injury, initial encounter (ICD-10) GERD (gastroesophageal reflux disease) ?K21.9 - Gastro-esophageal reflux disease without esophagitis (ICD-10) Surgical History (Updated 12/07/24 @ 09:04 by Grace Abbott) H/O heart artery stent ?Z95.5 - Presence of coronary angioplasty implant and graft (ICD-10) H/O: hysterectomy ?Z90.710 - Acquired absence of both cervix and uterus (ICD-10) History of cholecystectomy ?Z90.49 - Acquired absence of other specified parts of digestive tract (ICD-10) Social History Smoking status: Current every day smoker Meds Home Medications and Allergies Home Medications ?Medication ?Instructions ?Recorded ?Confirmed ?Type Lantus Solostar U-100 Insulin 05/15/23 History Ventolin HFA 05/15/23 History atorvastatin 20 mg tablet 20 mg PO DAILY 05/15/23 01/07/25 History clopidogrel 75 mg tablet 75 mg PO DAILY 05/15/23 01/07/25 History fenofibrate nanocrystallized 145 145 mg PO .qd 05/15/23 01/07/25 History mg tablet gabapentin 600 mg tablet 600 mg PO Q8H 05/15/23 01/07/25 History hydrochlorothiazide 25 mg tablet 25 mg PO DAILY 05/15/23 01/07/25 History ipratropium 0.5 mg-albuterol 3 mg 3 ml inhalation Q6H 05/15/23 01/07/25 History (2.5 mg base)/3 mL nebulization soln lisinopril 40 mg tablet 40 mg PO DAILY 05/15/23 01/07/25 History metoprolol tartrate 25 mg tablet 25 mg PO TID 05/15/23 01/07/25 History omeprazole 20 mg capsule,delayed 20 mg PO .qd 05/15/23 01/07/25 History release oxcarbazepine 300 mg tablet 300 mg PO BID 05/15/23 01/07/25 History sitagliptin phosphate 50 2 tab PO DAILY 05/15/23 01/07/25 History mg-metformin 500 mg tablet (Janumet) tiotropium 2.5 mcg-olodaterol 2.5 2 puff inhalation Q24H 05/15/23 01/07/25 History mcg/actuation mist for inhalation (Stiolto Respimat) torsemide 10 mg tablet 10 mg PO DAILY 05/15/23 01/07/25 History alprazolam 0.5 mg tablet 0.5 mg PO DAILY 11/20/24 01/07/25 History amlodipine 10 mg tablet 10 mg PO DAILY 11/20/24 01/07/25 History naproxen 500 mg tablet 500 mg PO Q12H 11/20/24 01/07/25 History acetaminophen 650 mg 1,300 mg PO Q12H PRN pain 01/07/25 01/07/25 History tablet,extended release (Pain Relief (acetaminophen)) famotidine 20 mg tablet (Pepcid) 20 mg PO DAILY 01/07/25 01/07/25 History guaifenesin 600 mg tablet, 600 mg PO BID PRN cough 01/07/25 01/07/25 History extended release 12 hr (Mucinex) Allergies Allergy/AdvReac Type Severity Reaction Status Date / Time nickel Allergy Mild Rash Verified 01/07/25 08:43 petrolatum,white (From AdvReac Severe Blister Verified 01/07/25 08:43 Petroleum Jelly) tagemet AdvReac Severe Diarrhea Uncoded 01/07/25 08:43 Exam Constitutional Documenting provider has reviewed patient's vital signs: yes Common normals: no apparent distress, oriented x3, healthy appearing, alert and well nourished General appearance: cooperative HENFL Common normals: normocephalic, hearing grossly normal bilaterally and moist oral mucous membranes Head and scalp: normocephalic Eye Common normals: PERRL Pupil: PERRL Neck & C-Spine Common normals: full ROM General: normal visual inspection Chest Common normals: inspection of chest normal Respiratory Common normals: normal respiratory effort, no retractions and no use of accessory muscles Back & Pelvis Lumbar spine/lower back: ROM limited, pain with ROM and straight leg raise negative bilaterally; no lumbar spinal tenderness Other: increased low back pain with standing and walking, significant improvement with forward flexion and sitting strength 4/5 in BLE decreased sensation bilateral L3,4 Neuro Common normals: oriented x3 Sensorium/orientation: alert Psych Common normals: mental status grossly normal, thought process normal, cooperative, affect normal, speech normal and activity/motor behavior normal Speech: normal speech Thought process: normal thought process Results Additional Findings Additional findings: If on a controlled substance or opioids, I have checked an [place] report on this patient and there are no aberrancies noted in the prescribing history.??If on a controlled substance or opioid a drug screen was completed and reviewed within the last year, and if there has not been a drug screen completed we ordered one today to monitor higher risk, state monitored pain medication use. As part of providing excellent, safe, comprehensive care, the following was completed at our patient's visit: 1. A medication reconciliation and review to ensure accurate knowledge of current/active medications, including asking our patients to inform us about any [id number]-lxxvwsf medications or herbal remedies/nutritional supplements/alternative remedies. 2. A review to specifically ensure our patients have had annual screening for screening for depression, screening for tobacco use, and screening for unhealthy alcohol use. For concerning screenings had a discussion with the patient, provided patient education, and recommended follow-up with primary care provider when appropriate. If patient noted with a risk of falling, they received education on strength, gait, and balance training to prevent future risk of falling. Portions of this note may have been carried over from the previous visit and updated as appropriate. Please note this office utilizes paper charting in addition to the electronic medical record. A list of current medications, vitals, and PMH is available there as the clinical staff outside of myself do not have access to [employer] charting during the clinic day operations. As part of providing quality comprehensive care the current medications, vitals, and PMH were reviewed in the paper chart. Assessment and Plan Assessment and Plan (1) Lumbar stenosis with neurogenic claudication: Assessment and Plan: The patient has had over 3 months of moderate to severe low back pain with functional impairment and inadequate response to conservative care including NSAIDS (unless there are contraindication such as concurrent blood thinners), multiple oral or topical pain medications, and home exercise program/physical therapy.? Patient has completed >6 weeks of guided home exercise program and/or formal physical therapy program without relief of their symptoms.? (2) Lumbar spondylosis: (3) Other intervertebral disc degeneration, lumbar region with discogenic back pain only: Plan proceed with bilateral L3-4 TFESI under fluoroscopy for lumbar stenosis with nc consider scs trial if she fails to benefit, handout provided today defer additional medication management due to polypharmacy and hx of falls continue HEP as tolerated f/u 2 weeks after injection
== END 2025-01-17 14:14 | disposition home or self-care (01) ==
LOC: PM 14:13
PROVIDERS: PCP Family Medicine; Visit Provider Nurse Practitioner
DX: M48.062 Spinal stenosis, lumbar region with neurogenic claudication (principal); M47.816 Spondylosis without myelopathy or radiculopathy, lumbar region; M51.370 Other intervertebral disc degeneration, lumbosacral region with discogenic back pain only
CPT/HCPCS: G0463

== ENCOUNTER 2025-01-28 11:32 | Day surgery (SDC) | payer MEDICARE, SELFPAY ==
--- OUTSIDE RECORDS SUMMARY | 2025-01-28 11:36 | XMS_ITS | Encounter Summary ---
Author Organization [facility] Address [address] [place] [address] Care Team Providers Care Retail Branch Manager Name Role Phone Nohemy Guajardo MD Unavailable Nohemy Guajardo MD Primary Care Provider [phone] Encounter Details Date Type Department Care Team (Late Contact Info) Description 05/17/2023 Orders Only [facility] [place] [facility] [address] [place] [address] [place] [address] A, Unknown Practice [address] [place], [place] [id number] Social History Tobacco Use Types Packs/Day Years [...] 1:00 PM EST Office Visit [facility] [place] [facility] [address] [place] [address] [place] [address] Nohemy Guajardo MD [address] [facility] [address] [place] [address] documented as of this encounter Procedures Procedure [...] documented as of this encounter Care Teams Retail Branch Manager Relationship Specialty Start Date End Date Nohemy Guajardo MD [address] [facility] [address] [place] [address] PCP - ACO Reach 10/07/22 Nohemy Guajardo MD [address] [facility] [address] [place] [address] PCP - General Family Medicine 10/28/22 documented as of this encounter
--- OUTSIDE RECORDS SUMMARY | 2025-01-28 11:36 | XMS_ITS | Clinical Summary ---
Author Organization [employer] tem Address [id number] [address] [place] [address] Care Team Providers Care Rubber Stamp Dies Inspector Name Role Phone Nohemy Guajardo MD Primary Care Provider [phone] Family History Medical History Relation Name Comments [...] 06/13/2009 Medical Devices Not on file Insurance [facility] Care Teams Rubber Stamp Dies Inspector Relationship Specialty Start Date End Date Nohemy Guajardo MD [facility] [place] [address] PCP - General Family Medicine 11/15/19
--- OUTSIDE RECORDS SUMMARY | 2025-01-28 11:36 | XMS_ITS | Encounter Summary ---
Author Organization [facility] Address [address] [place] [address] Care Team Providers Care Brim Setter Name Role Phone Nohemy Guajardo MD Unavailable Nohemy Guajardo MD Primary Care Provider [phone] Encounter Details Date Type Department Care Team (Late Contact Info) Description 12/31/2022 Abstract [facility] [place] [facility] 112 [facility] 110 [place] [address] Nohemy Guajardo MD 112 [facility] 110 [place] [address] Social History Tobacco Use Types Packs/Day Years [...] Upcoming Encounters Date Type Department Care Team ([facility] Contact Info) Description 04/02/2025 1:00 PM EST Office Visit [facility] [place] [facility] 112 [facility] 110 [place] [address] Nohemy Guajardo MD [address] [facility] 110 [place] [address] documented as of this encounter Visit Diagnoses Not on filedocumented in this encounter Additional Health Concerns Assessment Noted Time PHQ-9 Depression Total Score: 5 12/28/19 23 8:00 AM EDT documented as of this encounter Care Teams Brim Setter Relationship Specialty Start Date End Date Nohemy Guajardo MD [address] [facility] [address] [place] [address] PCP - ACO Reach 10/07/22 Nohemy Guajardo MD [address] [facility] [address] [place] [address] PCP - General Family Medicine 10/28/22 documented as of this encounter
--- OUTSIDE RECORDS SUMMARY | 2025-01-28 11:36 | XMS_ITS | Encounter Summary ---
Author Organization [facility] Address [address] [place] [address] Care Team Providers Care Bead Maker Name Role Phone Nohemy Guajardo MD Unavailable Nohemy Guajardo MD Primary Care Provider [phone] Encounter Details Date Type Department Care Team (Late Contact Info) Description 01/06/2023 Orders Only [facility] [place] [facility] [address] [place] [address] [place] [address] A, Unknown Practice [address] [place], [place] [phone] Social History Tobacco Use Types Packs/Day Years [...] Upcoming Encounters Date Type Department Care Team ([facility] Contact Info) Description 04/02/2025 1:00 PM EST Office Visit [facility] [place] [facility] [address] [place] [address] [place] [address] Nohemy Guajardo MD [address] [facility] 110 [place] [address] documented as of this encounter Procedures Procedure [...] documented as of this encounter Care Teams Bead Maker Relationship Specialty Start Date End Date Nohemy Guajardo MD [address] [facility] 110 [place] [address] PCP - ACO Reach 10/07/22 Nohemy Guajardo MD [address] [facility] 110 [place] [address] PCP - General Family Medicine 10/28/22 documented as of this encounter
--- OUTSIDE RECORDS SUMMARY | 2025-01-28 11:36 | XMS_ITS | Encounter Summary ---
Author Organization [facility] Address [address] [place] [address] Care Team Providers Care Metal Grader Name Role Phone Nohemy Guajardo MD Unavailable Nohemy Guajardo MD Primary Care Provider [phone] Encounter Details Date Type Department Care Team (Late Contact Info) Description 01/05/2023 Abstract [facility] [place] [facility] 112 [facility] 110 [place] [address] Nohemy Guajardo MD 112 [facility] 110 [place] [address] Social History Tobacco Use Types Packs/Day Years [...] 1:00 PM EST Office Visit [facility] [place] [facility] 112 [facility] 110 [place] [address] Nohemy Guajardo MD [address] [facility] 110 [place] [address] documented as of this encounter Visit Diagnoses Not on filedocumented in this encounter Additional Health Concerns Assessment Noted Time PHQ-9 Depression Total Score: 5 12/28/19 23 8:00 AM EDT documented as of this encounter Care Teams Metal Grader Relationship Specialty Start Date End Date Nohemy Guajardo MD [address] [facility] 110 [place] [address] PCP - ACO Reach 10/07/22 Nohemy Guajardo MD [address] [facility] 110 [place] [address] PCP - General Family Medicine 10/28/22 documented as of this encounter
--- OUTSIDE RECORDS SUMMARY | 2025-01-28 11:36 | XMS_ITS | Encounter Summary ---
Author Organization [facility] Address [address] [place] [address] Care Team Providers Care Reports Analysis Manager Name Role Phone Nohemy Prado MD Unavailable Nohemy Prado MD Primary Care Provider [phone] Encounter Details Date Type Department Care Team (Late Contact Info) Description 08/13/2023 Clinisync Result Encounter [facility] External Department Unsolicited Nohemy Prado MD [address] [place] [facility] 110 [place] [address] Social History Tobacco Use Types [...] Upcoming Encounters Date Type Department [facility] Description 04/02/2025 1:00 PM EST Office Visit [facility] [place] 112 [facility] 110 [place] [address] Nohemy Prado MD [address] [place] [address] documented as of this encounter Procedures Procedure Name Priority Date/Time Associated Diagnosis Comments XR LUMBAR SPINE 2 OR 3V 08/13/2023 6:43 AM EDT documented in this encounter Results * XR LUMBAR SPINE 2 OR 3V (08/13/2023 6:43 AM EDT) Anatomical Region Laterality Modality Radiographic Alice ging 08/13/2023 6:43 AM EDT Narrative 08/13/2023 6:46 AM EDT [address] [address] XRay Report Signed Patient: NUVIA ABRAHAM MR#: [id number] : 1945 Acct:[id number] Age/Sex: 78 / F ADM Date: 08/12/23 Loc: RAD Attending Dr: NOHEMY PRADO Ordering Physician: NOHEMY PRADO Date of Service: 08/12/23 Procedure(s): XR lumbar spine 2-3V Accession Number(s): [id number] cc: NOHEMY PRADO [address] [address] Patient Name: NUVIA ABRAHAM MRN: [id number] date: 1945 Sex: F Assigned Patient Location: [facility] Current Patient Location: Accession/Order Number: [id number] Exam Date: 08/12/2023 14:38 Report Date: 08/13/2023 [...] M.D. Signed By: 08/13/2346 DD/ 2 TD/TT: Chop Saw Operator: Procedure Note Radiology, Radiologist, MD - 08/17/2023 [place] [address] XRay Report Signed Patient: NUVIA ABRAHAM AMR#: [id number] : 1945cct:[id number] Age/Sex: 78 / FADM Date: 08/12/23 Loc: RAD Attending Dr: NOHEMY PRADO Ordering Physician: NOHEMY PRADO Date of Service: 08/12/23 Procedure(s): XR lumbar spine 2-3V Accession Number(s): [id number] cc: NOHEMY PRADO [place] [id number] Patient Name: NUVIA ABRAHAM MRN: [facility]:[id number] date: 1945 Sex: F Assigned Patient Location: [facility] Current Patient Location: Accession/Order Number: [id number] Exam Date: 08/12/2023 14:38 Report Date: 08/13/2023 [...] Dumont M.D. Signed By:08/13/2346 DD/ 2 TD/TT: Chop Saw Operator: us Nohemy Prado MD IMG XR PROCEDURES Final Result documented in this encounter Visit Diagnoses Not on filedocumented in this encounter Additional Health Concerns Assessment Noted Time PHQ-9 Depression Total Score: 5 12/28/19 23 8:00 AM EDT documented as of this encounter Care Teams Reports Analysis Manager Relationship Specialty Start Date End Date Nohemy Prado MD [address] [place] [facility] 110 [place] [address] PCP - ACO Reach 10/07/22 Nohemy Prado MD [address] [place] [facility] 110 [place] [address] PCP - General Family Medicine 10/28/22 documented as of this encounter
--- OUTSIDE RECORDS SUMMARY | 2025-01-28 11:36 | XMS_ITS | Encounter Summary ---
Author Organization [facility] Address [address] [place] [address] Care Team Providers Care Ophthalmic Nurse Name Role Phone Nohemy Guajardo MD Unavailable Nohemy Guajardo MD Primary Care Provider [phone] Encounter Details Date Type Department Care Team (Late Contact Info) Description 05/17/2023 Abstract [facility] [place] [facility] 112 [facility] 110 [place] [address] Nohemy Guajardo MD 112 [facility] 110 [place] [address] Social History Tobacco Use Types Packs/Day Years [...] Upcoming Encounters Date Type Department Care Team ([facility] Contact Info) Description 04/02/2025 1:00 PM EST Office Visit [facility] [place] [facility] 112 [facility] 110 [place] [address] Nohemy Guajardo MD [address] [facility] 110 [place] [address] documented as of this encounter Visit Diagnoses Not on filedocumented in this encounter Additional Health Concerns Assessment Noted Time PHQ-9 Depression Total Score: 5 12/28/19 23 8:00 AM EDT documented as of this encounter Care Teams Ophthalmic Nurse Relationship Specialty Start Date End Date Nohemy Guajardo MD [address] [facility] 110 [place] [address] PCP - ACO Reach 10/07/22 Nohemy Guajardo MD [address] [facility] 110 [place] [address] PCP - General Family Medicine 10/28/22 documented as of this encounter
--- OUTSIDE RECORDS SUMMARY | 2025-01-28 11:36 | XMS_ITS | Encounter Summary ---
Author Organization [facility] Address [address] [place] [address] Care Team Providers Care Contact Lens Blocker And Cutter Name Role Phone Nohemy Guajardo MD Unavailable Nohemy Guajardo MD Primary Care Provider [phone] Encounter Details Date Type Department Care Team (Late Contact Info) Description 09/16/2023 External Result Encounter [facility] External Department Unsolicited Nohemy Guajardo MD [address] [facility] 110 [place] [address] Social History Tobacco Use Types [...] Upcoming Encounters Date Type Department Care Team ([facility] Contact Info) Description 04/02/2025 1:00 PM EST Office Visit [facility] [place] 112 [facility] 110 [place] [address] Nohemy Guajardo MD 112 [facility] 110 [place] [address] documented as of this encounter Procedures Procedure [...] Latonya Riggs M.D.09/16/2023 10:57 AM Dictation Location: [place] [address] Transcribed By: [facility] 09/16/23 1057 Dictated By: Latonya Riggs MD 09/16/23 1046 Signed By: <Electronically signed by MD Latonya Riggs in OV> 09/16/23 1057 Narrative 09/16/2023 10:59 AM EDT [facility] Main [place] [address] [place] [address] XRay Report Signed Patient: Lovely Martin MR#: [id number] : 1945 Acct:[id number] Age/Sex: 78 / F ADM Date: 09/16/23 Loc: Room: Type: [facility] Attending Dr: Nohemy Guajardo MD Copies to: Nohemy Guajardo MD Ordering Provider: Nohemy Guajardo MD Date of Service: 09/16/23 MR/MR lumbar spine wo con: M51.36, M43.16 M54.42, M54.41 ([id number]) XR/XR pre/post mri xray: M54.42, M54.41, M51.36, [...] xray Procedure Note Radiology, Radiologist, - 09/16/2023 [facility] Main [place] [address] [place] [address] XRay Report Signed Patient: Lovely Martin AMR#: [id number] : 8Acct:[id number] Age/Sex: 78 / FADM Date: 09/16/23 Loc: MR Room:Type: [facility] Attending Dr: Nohemy Guajardo MD Copies to: Nohemy Guajardo MD Ordering Provider: Nohemy Guajardo MD Date of Service: 09/16/23 MR/MR lumbar spine wo con: M51.36, M43.16M54.42, M54.41 ([id number]) XR/XR pre/post mri xray: M54.42, M54.41, M51.36, [...] Latonya Riggs M.D.09/16/2023 10:57 AM Dictation Location: [place] [address] Transcribed By: [facility] 09/16/23 1057 Dictated By: Latonya Riggs [...] documented as of this encounter Care Teams Contact Lens Blocker And Cutter Relationship Specialty Start Date End Date Nohemy Guajardo MD [address] [place] [address] PCP - ACO Reach 10/07/22 Nohemy Guajardo MD [address] [place] [address] PCP - General Family Medicine 10/28/22 documented as of this encounter
--- OUTSIDE RECORDS SUMMARY | 2025-01-28 11:36 | XMS_ITS | Encounter Summary ---
Author Organization [facility] Address [address] [place] [address] Care Team Providers Care Corn Lab Technician Name Role Phone Nohemy Guajardo MD Unavailable Nohemy Guajardo MD Primary Care Provider [phone] Encounter Details Date Type Department Care Team (Late Contact Info) Description 12/17/2024 Abstract [facility] [place] [facility] 112 [facility] 110 [place] [address] Nohemy Guajardo MD 112 [facility] 110 [place] [address] Social History Tobacco Use Types Packs/Day Years [...] Upcoming Encounters Date Type Department Care Team ([facility] Contact Info) Description 04/02/2025 1:00 PM EST Office Visit [facility] [place] [facility] 112 [facility] 110 [place] [address] Nohemy Guajardo MD [address] [facility] 110 [place] [address] documented as of this encounter Visit Diagnoses Not on filedocumented in this encounter Additional Health Concerns Assessment Noted Time PHQ-9 Depression Total Score: 4 12/26/19 24 10:00 AM EDT documented as of this encounter Care Teams Corn Lab Technician Relationship Specialty Start Date End Date Nohemy Guajardo MD [address] [facility] 110 [place] [address] PCP - ACO Reach 10/07/22 Nohemy Guajardo MD [address] [facility] 110 [place] [address] PCP - General Family Medicine 10/28/22 documented as of this encounter
--- OUTSIDE RECORDS SUMMARY | 2025-01-28 11:36 | XMS_ITS | Clinical Summary ---
Author Organization [facility] Address [address] [place] [address] Care Team Providers Care Glaze Carrier Name Role Phone Nohemy Guajardo MD Unavailable Nohemy Guajardo MD Primary Care Provider [phone] Allergies Active Allergy Reactions Criticality Noted Date [...] mouth 1 (one) time each day. Active [place]-3 Fatty Acids (Fish Oil) 1000 MG capsule [...] time each day at the same time. 12/02/19 22 Active ipratropium-albute rol (Duo-Neb) 0.5-2.5 mg/3 mL nebulizer solution Take 3 mL by nebulization every 6 (six) hours. PRN 06/17/19 23 Active melatonin 5 MG tablet Take 1 [...] g by mouth Daily as needed. Active SITagliptin-metFOR MIN (Janumet) 50-500 MG tabletIndications: Type 2 diabetes mellitus with diabetic polyneuropathy, with long-term current use of insulin (HCC) Take 2 tablets by mouth in the morning. 180 tablet 3 02/10/20 24 Active atorvastatin (Lipitor) 20 MG tabletIndications: Essential hypertension TAKE 1 TABLET EVERY DAY 90 tablet 3 02/10/20 24 Active metoprolol tartrate (Lopressor) 25 MG tabletIndications: Essential hypertension TAKE 1 TABLET THREE TIMES DAILY (IN THE MORNING, IN THE EVENING, AND BEFORE BEDTIME) 270 tablet 3 02/13/20 24 Active naproxen (Naprosyn) 500 MG tabletIndications: Hand weakness TAKE 1 TABLET TWICE DAILY WITH FOOD OR MILK 180 tablet 3 06/04/19 25 Active levothyroxine (Synthroid, Levoxyl) 88 MCG tabletIndications: Acquired hypothyroidism TAKE 1 TABLET IN THE MORNING BEFORE A MEAL 90 tablet 3 06/08/19 25 Active omeprazole (PriLOSEC) [address] capsuleIndications :Gastroesophageal reflux disease without esophagitis TAKE 1 CAPSULE EVERY DAY 100 capsule 3 07/17/19 25 Active fenofibrate (Tricor) 145 MG tabletIndications: Mixed hyperlipidemia TAKE 1 TABLET EVERY DAY 100 tablet 3 07/17/19 25 Active Stiolto Respimat 2.5-2.5 MCG/ACT aerosol solution inhalerIndications :Chronic obstructive pulmonary disease, unspecified ([facility]) INHALE 2 PUFFS EVERY DAY 12 g 3 08/21/19 25 Active insulin pen needle (Droplet Pen [place]) 32G x 4 mm miscIndications:Ot her specified diabetes mellitus with other specified complication, unspecified whether terminal system operator insulin use ([facility]) USE INSTRUCTED 300 each 3 08/21/19 25 Active OXcarbazepine (Trileptal) 300 MG tabletIndications: Other diabetic neurological complication associated with type 2 diabetes mellitus ([facility]) TAKE 1 TABLET IN THE MORNING AND TAKE 1 TABLET BEFORE BEDTIME 200 tablet 3 10/02/19 25 Active torsemide (Demadex) 10 MG tabletIndications: Lymphedema TAKE 1 TABLET EVERY MORNING 100 tablet 3 10/02/19 25 Active clopidogrel (Plavix) 75 MG tabletIndications: Stenosis of carotid artery, unspecified laterality TAKE 1 TABLET EVERY MORNING 100 tablet 3 10/02/19 25 Active insulin glargine (Lantus SoloStar) 100 UNIT/ML penIndications:Typ e 2 diabetes mellitus with diabetic polyneuropathy, with long-term current use of insulin ([facility]) Inject 22 Units under the skin at bedtime 10/12/19 25 Active gabapentin (Neurontin) 600 MG tabletIndications: Type 2 diabetes mellitus with diabetic polyneuropathy, with long-term current use of insulin ([facility]) Take 1 tablet (600 mg) by mouth in the morning and 1 tablet (600 mg) in the evening and 1 tablet (600 mg) before bedtime. 300 tablet 3 11/10/19 25 Active amLODIPine (Norvasc) 10 MG tabletIndications: Essential hypertension TAKE 1 TABLET (10 MG) BY MOUTH DAILY. 100 tablet 1 11/20/19 25 Active OneTouch Ultra test stripIndications:T ype 2 diabetes mellitus with diabetic polyneuropathy, with long-term current use of insulin (HCC),Type 2 diabetes mellitus with diabetic peripheral angiopathy without gangrene, without long-term current use of insulin (HCC) USE TO TEST BLOOD SUGAR TWICE DAILY 200 strip 3 12/11/19 25 Active ALPRAZolam (Xanax) 0.5 MG tabletIndications: Other insomnia Take 1 tablet (0.5 mg) by mouth as needed at bedtime for anxiety 30 tablet 12/15/19 25 Active lisinopril 40 MG tabletIndications: Essential hypertension TAKE 1 TABLET EVERY MORNING 100 tablet 3 12/25/19 25 Active hydroCHLOROthiazid e (HYDRODiuril) 25 MG tabletIndications: Essential hypertension TAKE 1 TABLET EVERY MORNING 100 tablet 3 12/25/19 25 Active Active Problems Problem Noted Date Diagnosed Date Bilateral carotid bruits 10/11/2024 Routine general medical examination at [facility] 12/26/2023 Atherosclerosis of aorta 12/26/2023 Assessment & [...] No symptoms currently Peripheral vascular disease, unspecified 08/12/2 024 Assessment & Plan (12/26/2023 11:19 AM [...] disease 10/31/2022 12/27/2022 Diabetic neuropathy 10/31/2022 12/28/19 Encounters Date Type Department Care Team Description 12/22/2024 Refill [facility] [place] [facility] [address] [facility] [address] [place] [address] Nohemy Guajardo MD Essential hypertension 12/17/2024 Abstract [facility] [place] [facility] [address] [facility] [address] [place] [address] Nohemy Guajardo MD 12/14/2024 Refill [facility] [place] [facility] [address] [facility] [address] [place] [address] Latonya Marie PA Other insomnia 12/14/2024 Abstract [facility] [place] [facility] [address] [facility] [address] [place] [address] Nohemy Guajardo MD 12/10/2024 Refill [facility] [place] [facility] [address] [facility] [address] [place] [address] Nohemy Guajardo MD Other insomnia 12/08/2024 Refill [facility] [place] [facility] [address] [facility] [address] [place] [address] Nohemy Guajardo MD Type 2 diabetes mellitus with diabetic polyneuropathy, with long-term current use of insulin ([facility]); Type 2 diabetes mellitus with diabetic peripheral angiopathy without gangrene, without long-term current use of insulin ([facility]) 12/03/2024 Abstract [facility] [address] [facility] [address] [place] [address] Nohemy Guajardo MD 11/18/2024 Refill [facility] [address] [place] [address] Nohemy Guajardo MD Essential hypertension 11/12/2024 Telephone [facility] [address] [facility] [address] [place] [address] Nohemy Guajardo MD 11/09/2024 Refill [facility] [address] [place] [address] Nohemy Guajardo MD Type 2 diabetes mellitus with diabetic polyneuropathy, with long-term current use of insulin ([facility]) 11/09/2024 Refill [facility] [address] [facility] [address] [place] [address] Nohemy Guajardo MD Other insomnia from Last 3 Months Immunizations Immunization Administration Dates Next Due Influenza, High Dose Seasonal, Preservative Free 01/06/2024,03/19/2022 Influenza, Recombinant, injectable, preservative free 04/21/2021 Influenza, Seasonal, Quadrivalent, Adjuvanted Novel [id number], preservative-free 06/13 Pneumococcal Conjugate PCV 13 11/07/2020 [...] Description 04/02/2025 1:00 PM EST Office Visit [facility] 112 [facility] [address] [place] [address] Nohemy Guajardo MD 112 [facility] 110 [place] [address] Health Maintenance Due Date Last Done Comments [...] - OU - BOTH EYES Routine 11/30/2024 POCT GLYCATED HEMOGLOBIN, TOTAL Routine 10/11/2024 3:59 [...] Guajardo MD OPHTH PHOTOGRAPHY Final Result * POCT Glycated hemoglobin, total [...] Performing Organization Information Site ID: QPT Name: [facility] Address: [address] [place] [address], [address] [place] [id number] Director: Дмитрий Mendoza MD us Nohemy Guajardo MD LAB URINE ORDERABLES Final Resul t [facility] * Colonoscopy (01/05/2022 12:00 PM EDT) Anatomical Region Laterality Modality Endoscopy 01/05/2022 12:0 0 PM EDT Narrative 01/05/2022 12:00 PM EDT PERFORMED AT [facility] LOCATION:[id number] Procedure Note CONVERSION, GENERIC - 09/29/2022 PERFORMED AT [facility] LOCATION:[id number] Jesse Rahman MD ENDOSCOPY PROCEDURE ORDERABL ES Final Result * OCC BLD IMMUNO SCREEN (11/10/2020) OCCULT BLOOD NEGATIVE NEGATIVE [facility] PERFORMING LAB: see note [facility] Comment:[address] Laboratory - Transmission Worker Latonya Jarrett,[place] [address] ,Ext. [phone] 11/10/2020 Nohemy uGajardo MD EC LABS Final Result [facility] * Cologuard?? colon cancer screening [...] (Patricia Real al, N Engl J Med 2014;370(14):8331-5482) The normal value (reference range) for this assay is negative. COLOGUARD RE-SCREENING RECOMMENDATION: Periodic routine colorectal cancer screening is an important part of preventive healthcare for asymptomatic persons at average risk for colorectal cancer. Following a negative Cologuard result, the [place] [employer] and U.S. Multi-Society Task Force screening guidelines recommend a Cologuard re-screening interval of 3 years. References: [employer] [place] [employer] (ACS). Colorectal cancer prevention and early detection. Likely, [place]: [place] [employer]; [updated 2015Sep 06]. https://www.cancer.org/cancer/waffz-dybuoi-bpabnw/xylzyuqvl-dhcpsvwtb-axwcaku/ac s-rec ommendations.html. Accessed January 13, 2018; Dominic DK, Tamiko HARMON, Lance LOVE, Colorectal Cancer Screening: Recommendations for Physicians and Patients from the U.S. Multi-Society Task Force on Colorectal Cancer Screening, Am J Gastroenterology 2017; 112:1222-2229. TEST TYPE: Composite algorithmic analysis of stool [...] interval of every 3 years by the [place] [employer] Society and U.S. Multi-Society Task Force. [...] can be accessed at the following location: www.SocialSamba.Clarimedix/results. Additional description of the Cologuard test process, warnings and precautions can be found at www.cologuardtest.com. Rx only. 11/23/2019 Nohemy Guajardo MD LAB MOLECULAR DIAGNOSTICS ORDERA BLES Final Result [facility] from Last 3 Months or Most Recently Relevant to Health Maintenance Insurance MEDICARE [facility] Care Teams Glaze Carrier Relationship Specialty Start Date End Date Nohemy Guajardo MD [address] [place] [facility] 110 [place] [address] PCP - ACO Reach 10/07/22 Nohemy Guajardo MD [address] [facility] 110 [place] [address] PCP - General Family Medicine 10/28/22
--- OUTSIDE RECORDS SUMMARY | 2025-01-28 11:36 | XMS_ITS | Encounter Summary ---
Author Organization [facility] Address [address] [place] [address] Care Team Providers Care Sales And Marketing Associate Name Role Phone Nohemy Guajardo MD Unavailable Nohemy Guajardo MD Primary Care Provider [phone] Encounter Details Date Type Department Care Team (Late Contact Info) Description 05/17/2023 Abstract [facility] [place] [facility] 112 [facility] 110 [place] [address] Nohemy Guajardo MD 112 [facility] 110 [place] [address] Social History Tobacco Use Types Packs/Day Years [...] Upcoming Encounters Date Type Department Care Team ([facility] Contact Info) Description 04/02/2025 1:00 PM EST Office Visit [facility] [place] [facility] 112 [facility] 110 [place] [address] Nohemy Guajardo MD 112 [place] 110 [place] [address] documented as of this encounter Visit Diagnoses Not on filedocumented in this encounter Additional Health Concerns Assessment Noted Time PHQ-9 Depression Total Score: 5 12/28/19 23 8:00 AM EDT documented as of this encounter Care Teams Sales And Marketing Associate Relationship Specialty Start Date End Date Nohemy Guajardo MD [address] [facility] 110 [place] [address] PCP - ACO Reach 10/07/22 Nohemy Guajardo MD 112 [facility] 110 [place] [address] PCP - General Family Medicine 10/28/22 documented as of this encounter
--- OUTSIDE RECORDS SUMMARY | 2025-01-28 11:36 | XMS_ITS | Encounter Summary ---
Author Organization [facility] Address [address] [place] [address] Care Team Providers Care Prosthodontist/Owner Name Role Phone Nohemy Guajardo MD Unavailable Nohemy Guajardo MD Primary Care Provider [phone] Encounter Details Date Type Department Care Team (Late Contact Info) Description 05/17/2023 Abstract [facility] [place] [facility] 112 [facility] 110 [place] [address] Nohemy Guajardo MD 112 [facility] 110 [place] [address] Social History Tobacco Use Types Packs/Day Years [...] Department Care Team ([facility] Contact Info) Description 04/02/2025 1:00 PM EST Office Visit [facility] [place] [facility] 112 [facility] 110 [place] [address] Nohemy Guajardo MD 112 [facility] 110 [place] [address] documented as of this encounter Visit Diagnoses Not on filedocumented in this encounter Additional Health Concerns Assessment Noted Time PHQ-9 Depression Total Score: 5 12/28/19 23 8:00 AM EDT documented as of this encounter Care Teams Prosthodontist/Owner Relationship Specialty Start Date End Date Nohemy Guajardo MD 112 [facility] [address] [place] [address] PCP - ACO Reach 10/07/22 Nohemy Guajardo MD 112 [facility] 110 [place] [address] PCP - General Family Medicine 10/28/22 documented as of this encounter
--- OUTSIDE RECORDS SUMMARY | 2025-01-28 11:36 | XMS_ITS | Encounter Summary ---
Author Organization [facility] Address [address] [place] [address] Care Team Providers Care International Banker Name Role Phone Nohemy Guajardo MD Unavailable Nohemy Guajardo MD Primary Care Provider [phone] Encounter Details Date Type Department Care Team (Late Contact Info) Description 01/05/2023 Orders Only [facility] [place] [facility] [address] [place] [address] [place] [address] A, Unknown Practice [address] [place], [place] [phone] Social History Tobacco Use Types Packs/Day Years [...] Upcoming Encounters Date Type Department Care Team ([facility] Contact Info) Description 04/02/2025 1:00 PM EST Office Visit [facility] [place] [facility] [address] [place] [address] [place] [address] Nohemy Guajardo MD 112 [facility] 110 [place] [address] documented as of this encounter Procedures Procedure [...] documented as of this encounter Care Teams International Banker Relationship Specialty Start Date End Date Nohemy Guajardo MD 112 [facility] 110 [place] [address] PCP - ACO Reach 10/07/22 Nohemy Guajardo MD 112 [place] [facility] 110 [place] [address] PCP - General Family Medicine 10/28/22 documented as of this encounter
--- OUTSIDE RECORDS SUMMARY | 2025-01-28 11:36 | XMS_ITS | Encounter Summary ---
Author Organization [facility] Address [address] [place] [address] Care Team Providers Care Poultry Husbandman Name Role Phone Nohemy Guajardo MD Unavailable Nohemy Guajardo MD Primary Care Provider [phone] Encounter Details Date Type Department Care Team (Late Contact Info) Description 07/03/2024 Abstract [facility] [place] [facility] 112 [facility] 110 [place] [address] Nohemy Guajardo MD 112 [facility] 110 [place] [address] Social History Tobacco Use Types Packs/Day Years [...] Upcoming Encounters Date Type Department Care Team ([facility] Contact Info) Description 04/02/2025 1:00 PM EST Office Visit [facility] [place] [facility] 112 [facility] 110 [place] [address] Nohemy Guajardo MD 112 [place] [facility] 110 [place] [address] documented as of this encounter Visit Diagnoses Not on filedocumented in this encounter Additional Health Concerns Assessment Noted Time PHQ-9 Depression Total Score: 4 12/26/19 24 10:00 AM EDT documented as of this encounter Care Teams Poultry Husbandman Relationship Specialty Start Date End Date Nohemy Guajardo MD 112 [place] [facility] 110 [place] [address] PCP - ACO Reach 10/07/22 Nohemy Guajardo MD [address] [place] [facility] 110 [place] [address] PCP - General Family Medicine 10/28/22 documented as of this encounter
--- OUTSIDE RECORDS SUMMARY | 2025-01-28 11:36 | XMS_ITS | Encounter Summary ---
Author Organization [facility] Address [address] [place] [address] Care Team Providers Care Tieing Machine Operator Name Role Phone Nohemy Guajardo MD Unavailable Nohemy Guajardo MD Primary Care Provider [phone] Encounter Details Date Type Department Care Team (Late Contact Info) Description 02/01/2023 Abstract [facility] [place] [facility] 112 [facility] 110 [place] [address] Nohemy Guajardo MD 112 [facility] 110 [place] [address] Social History Tobacco Use Types Packs/Day Years [...] Upcoming Encounters Date Type Department Care Team ([facility] Contact Info) Description 04/02/2025 1:00 PM EST Office Visit [facility] [place] [facility] 112 [facility] 110 [place] [address] Nohemy Guajardo MD 112 [place] [facility] 110 [place] [address] documented as of this encounter Visit Diagnoses Not on filedocumented in this encounter Additional Health Concerns Assessment Noted Time PHQ-9 Depression Total Score: 5 12/28/19 23 8:00 AM EDT documented as of this encounter Care Teams Tieing Machine Operator Relationship Specialty Start Date End Date Nohemy Guajardo MD 112 [place] [facility] 110 [place] [address] PCP - ACO Reach 10/07/22 Nohemy Guajardo MD 112 [place] [facility] 110 [place] [address] PCP - General Family Medicine 10/28/22 documented as of this encounter
--- OUTSIDE RECORDS SUMMARY | 2025-01-28 11:36 | XMS_ITS | Encounter Summary ---
Author Organization [facility] tem Address [id number] [address] [place] [address] Care Team Providers Care Retail Client Solutions Consultant Name Role Phone Nohemy Guajardo MD Primary Care Provider [phone] Encounter Details Date Type Department Care Team (Late st Contact Info) Description 03/03/2016 Refill [facility] [address] [place] [phone] Kristina Elizalde Social History Tobacco Use Types [...] on filedocumented in this encounter Care Teams Retail Client Solutions Consultant Relationship Specialty Start Date End Date Nohe[place] [address] PCP - General Family Medicine 11/15/19 documented as of this encounter
--- OUTSIDE RECORDS SUMMARY | 2025-01-28 11:36 | XMS_ITS | Encounter Summary ---
Author Organization [facility] Address [address] [place] [address] Care Team Providers Care Rubber Mixer Name Role Phone Nohemy Guajardo MD Unavailable Nohemy Guajardo MD Primary Care Provider [phone] Encounter Details Date Type Department Care Team (Late Contact Info) Description 12/28/2023 Abstract [facility] [place] [facility] 112 [facility] 110 [place] [address] Nohemy Guajardo MD 112 [facility] 110 [place] [address] Social History Tobacco Use Types Packs/Day Years [...] Encounters Date Type Department Care Team ([facility] Contact Info) Description 04/02/2025 1:00 PM EST Office Visit [facility] [place] [facility] 112 [facility] 110 [place] [address] Nohemy Guajardo MD 112 [facility] 110 [place] [address] documented as of this encounter Visit Diagnoses Not on filedocumented in this encounter Additional Health Concerns Assessment Noted Time PHQ-9 Depression Total Score: 4 12/26/19 24 10:00 AM EDT documented as of this encounter Care Teams Rubber Mixer Relationship Specialty Start Date End Date Nohemy Guajardo MD 112 [facility] [place] [facility] [address] [place] [address] PCP - ACO Reach 10/07/22 Nohemy Guajardo MD [address] [facility] [place] [facility] [address] [place] [address] PCP - General Family Medicine 10/28/22 documented as of this encounter
[2025-01-28 11:46] VITALS: BP 146/67; PULSE 63; TEMP 36.5; O2SAT 96
--- OUTSIDE RECORDS SUMMARY | 2025-01-28 12:06 | XMS_ITS | CCD ---
Author Organization [facility] Inform ion Partnership [facility] Care Team Providers Care Sourcing Consultant Name Role Phone Mikie West Unavailable MD Wily Prado Primary Care Provider [phone] MD Wily Prado Referring Provider CARMELA Tijerina Attending Provider MD Wily Prado Primary Care Provider MD Wily Prado Referring Provider CARMELA Tijerina Attending Provider MD Jesse Tran Attending Provider [phone] TODD, DR GINGER Hurley Consulting Unavailable PAY, [...] Attending Unavailable HOY, DR DAO Admitting Unavailable JOAHN, DR JULIEN Primary Care Unavailable ZIEBER, DR [...] Care Provider MD Wily Prado Referring Provider [phone] ProsperfeleciaFITO vannN Narcisa Attending Provider Wily Prado MD Unavailable Wily Prado MD Primary Care Provider [phone] MD Wily Prado Primary Care Provider [phone] MD Wily Prado Attending Provider Wily Prado [...] Neomycin / Polymyxin B Drug Allergy Unknown [facility] Other (1 source) Cimetidine Drug Allergy Unknown [facility] Other (20 sources) Bacitracin; Translations: [bacitracin] Drug Allergy 2 [facility] (20 sources) Cimetidine; Translations: [cimetidine] Drug Allergy 2 [facility] (20 sources) Neomycin; Translations: [neomycin] Drug Allergy 2 [facility] (10 sources) contact metal agent; Translations: [contact metal agent] Propensity to adverse reactions 2 [facility] (11 sources) petrolatum,whit e; Translations: [petrolatum,whi te] Propensity to adverse reactions 2 [facility] (20 sources) polymyxin B; Translations: [polymyxin B] Propensity to adverse reactions 2 [facility] (1 source) Bacitracin / Neomycin / Polymyxin B Drug Allergy 5 [facility] (1 source) Cimetidine Drug Allergy 5 [facility] (20 sources) Bacitracin / Polymyxin B Drug Allergy 3 Unknown [facility] Work Phone: (20 sources) Petrolatum Drug Allergy 3 Unknown [facility] Medications Current Medications Medication Drug Class(es) Dates Sig (Normalized) Sig (Original) [id number] 200 actuat albuterol 0.09 mg/actuat metered dose [...] 1000 mg by mouth once daily Evening [place] Oil Active 1000 MG PO every day at noon December 17, 2019 12:00am take 1 capsule by mouth once alma delia ly Evening [place] Oil 1000 MG 1 capsule Orally one [...] bedtime. 300 tablet 3 11/09/2024 Active Horse [place] 300 MG (1 source) take 1 capsule by mouth once daily [place] 300 MG 1 capsule Orally one time [...] 300 mg by mouth once daily Horse [place] Active 300 MG PO every day at [...] Start: 12-14-2019 take 2 tablets by mo [facility] once daily Sitagliptin Phos-Metformin (Janumet) [...] MOUTH EVERY DAY Inhalation for 90 Active Bison 4-Xpm-Mks-Fish Oil (Fish Oil) 1,000 mg (120 mg-180 mg) Capsule (9 sources) Start: 12-17-2019 take 1 capsule by mouth twice daily Bison 9-Hgm-Tfy-Fish Oil (Fish Oil) 1,000 mg (120 mg-180 mg) Capsule Active 1 CAP PO Twice daily December 16, 2019 11:00pm Start: 12-17-2019 take 1 capsule by mo [facility] twice daily Bison 4-Ysc-Wpm-Fish Oil (Fish Oil) 1,000 mg (120 mg-180 mg) Capsule Active 1 CAP PO Twice daily December 17, 2019 12:00am Bison-3 Fatty Acids (Fish Oi l) 1000 MG capsule delayed-release (20 sources) take 1 capsule by mouth once daily Bison-3 Fatty Acids (Fish Oil) 1000 MG capsule delayed-release Take 1 capsule by mouth 1 (one) time each day. Active take 1 capsule by mouth once alma delia ly Bison-3 Fatty Acids (Fish Oil) 1000 MG capsule [...] tablet 3 11/14/2023 Active polyethylene glycol 3350 88173 mg powder for oral solution (20 sources) [...] (1 source) take 1 capsule by mo [facility] once daily Vitamin E 400 [...] Dates Sig (Normalized) Sig (Original) Glucos Sul 8qxw-Uue-Mnveb-C-M n (Glucosamine Chondroitin) 550-30-1 mg Capsule (9 sources) Start: 12-17-2019 End: 01-12-2022 take 1 capsule by mouth twice daily Glucos Sul 4vrc-Qco-Yifzs-C-Mn (Glucosamine Chondroitin) 550-30-1 mg Capsule Discontinued 1 CAP PO Twice daily December 16, 2019 11:00pm January 12, 2022 10:09am Start: 12-17-2019 End: 01-12-2022 take 1 capsule by mouth twice daily Glucos Sul 9pma-Kgj-Eztfl-C-Mn (Glucosamine Chondroitin) 550-30-1 mg Capsule Discontinued 1 [...] disease (1 source) Atherosclerotic heart disease of [place] coronary artery without angina pectoris; Translations: [ASHD VIEJAS 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] Onset: 11-25-2021 Chronic [...] 10-31-2022 10-31-2022 Chronic Other aftercare (1 source) halfway (current) use of aspirin; Translations: [CONSULTING ACTUARY CURRENT USE OF ASPIRIN] Onset: 01-25-2022 Episodic Other aftercare (1 source) intermediate designer (current) use of insulin; Translations: [LONGTERM CURRENT USE OF INSULIN] Onset: 01-25-2022 Episodic Other aftercare (1 source) Other usp (current) drug therapy; Translations: [OTH CONSULTING ACTUARY CURRENT DRUG THERAPY] Onset: 01-25-2022 Episodic Other and ill-defined heart disease (20 sources) Diastolic dysfunction; Translations: [Other ill-defined heart diseases] Onset: 10-31-2022 10-31-2022 Chronic Other bone disease and musculoskeletal deformities (1 source) Other specified disorders of bone density and structure, left thigh; Translations: [[facility] D/O BONE DEN STRUCT LT THIGH] Onset: [...] nonspecific abnormal finding of lung field; Translations: [[facility] NONSPECIFIC ABN FIND LNG FIELD] Onset: 11-13-2021 [...] Onset: 08-17-2021 Episodic Other aftercare (1 source) intermediate designer (current) use of oral hypoglycemic drugs; Translations: [LONGTERM USE ORAL HYPOGLYCEMIC DX] Onset: 05-28-2021 Episodic [...] Test Name Value Interpretation Reference Range Facility [facility] US CAROTID ARTERY DUPLE X BILATERALon 10-19-2024 [facility] US CAROTID ARTERY DUPLEX BILATERAL EXAM: [facility] US CAROTID ARTERY DUPLEX BILATERAL HISTORY: [...] present in the vertebral artery. There is jgjs-ax-gvdlsfhe plaque visualized in the left common carotid [...] II, MD, PHD at 22-Oct-2024 10:54:18 AM [facility] [employer]comradiology SRU criteria: <180 No plaque <2.0 Normal <180 <50% plaque <2.0 <50% 180-230 >50% plaque 2.0 - 4.0 50-69% >230 >50% plaque >4.0 >70% PSV 125-180 cm/sec and ICA/CCA PSV Ratio >= 2.0 is also consistent with 50-69% stenosis. Normal Not Available Laboratory - Hematology and Cell countson 10-11-2024 HbA1c (Bld) [Mass fraction] 4.8 % [facility] No Panel Informationon 10-11 Interpretation and review of laboratory results Normal [facility] CBC (H/H, RBC, INDICES, WBC, PLT)on 05-12-2024 Erythrocyte distribution width (RBC) [Ratio] 14.0 % Normal 11.0-15.0 [facility] Comment on above: Performed By: #### 7 600 #### [facility] [place] [address] Head Chopper: Дмитрий Mendoza MD #### [id number], 1759 #### [facility] [facility] [address] Head Chopper: Joyce Vaca Hematocrit (Bld) [Volume fraction] 40.1 % Normal 35.0-45.0 [facility] Comment on above: Performed By: #### 7 600 #### [facility] [place] [address] Head Chopper: Дмитрий Mendoza MD #### [id number], 1759 #### [facility] [address] [place], [place] [id number] Head Chopper: Joyce Hurley Flati Hemoglobin (Bld) [Mass/Vol] 13.5 g/dL Normal 11.7-15.5 [facility] Comment on above: Performed By: #### 7 600 #### [facility] [address], [address] [place] [address] Head Chopper: Дмитрий Mendoza MD #### [id number], 1759 #### [facility] [address] [place], [place] [phone] Head Chopper: Joyce Vaca MCH (RBC) [Entitic mass] 30.6 pg Normal 27.0-33.0 [facility] Comment on above: Performed By: #### 7 600 #### [facility] [address], [address] [place] [address] Head Chopper: Дмитрий Mendoza MD #### [id number], 175 #### [facility] [address] Head Chopper: Joyce Vaca MCHC (RBC) [Mass/Vol] 33.7 g/dL [...] #### 7 600 #### [facility] [address], [address] [place] [address] Head Chopper: Дмитрий Mendoza MD #### [id number], 1756 #### [facility] [address] Head Chopper: Joyce Vaca MCV (RBC) [Entitic vol] 90.9 fL Normal 80.0-100.0 [facility] Comment on above: Performed By: #### 7 600 #### [facility] [place] [address] Head Chopper: Дмитрий Mendoza MD #### [id number], 1755 #### [facility] [address] Head Chopper: Joyce Vaca Platelet mean volume (Bld) [Entitic vol] 8.5 fL Normal 7.5-12.5 [facility] Comment on above: Performed By: #### 7 600 #### [facility] [address], [address] [place] [address] Head Chopper: Дмитрий Mendoza MD #### [id number], 1759 #### [place] [phone] Head Chopper: Joyce Vaca Platelets (Bld) [#/Vol] 309 10*3/uL Normal 140-400 [facility] Comment on above: Performed By: #### 7 600 #### [facility] [place] [address] [address] , [address] [place] [address] Head Chopper: Дмитрий Mendoza MD #### 55675, 1759 #### [facility] [address] [place] [phone] Head Chopper: Joyce Vaca RBC (Bld) [#/Vol] 4.41 10*6/uL Normal 3.80-5.10 [facility] Comment on above: Performed By: #### 7 600 #### [facility] [place] [address], [address] [place] [address] Head Chopper: Дмитрий Mendoza MD #### [id number], 1759 #### [facility] [phone] Head Chopper: Joyce Vaca WBC (Bld) [#/Vol] 7.2 10*3/uL Normal 3.8-10.8 [facility] Comment on above: Performed By: #### 7 600 #### [facility] [place] [address] [address] , [address] [place] [address] Head Chopper: Дмитрий Mendoza MD #### 92110, 1759 #### [facility] [address] [place] [phone] Head Chopper: Joyce Vaca [facility] 05-12-2024 Albumin [Mass/Vol] 3.7 g/dL Normal 3.6-5.1 [facility] Comment on above: Performed By: #### 7 600 #### [facility] [place] [address] [address] , [address] [place] [address] Head Chopper: Дмитрий Mendoza MD #### [id number], 175 #### [facility] [address] [place], [place] [id number] Head Chopper: Joyce Vaca Albumin/Globulin [Mass ratio] 1.3 {ratio} Normal 1.0-2.5 [facility] Comment on above: Performed By: #### 7 600 #### [facility] [address], [address] [place] [address] Head Chopper: Дмитрий Mendoza MD #### 38762, 1759 #### [facility] [address] [place], [place] [id number] Head Chopper: Joyce Vaca ALP [Catalytic activity/Vol] 35 U/L Low 37-153 [facility] Comment on above: Performed By: #### 7 600 #### [facility] [address], [address] [place] [address] Head Chopper: Дмитрий Mendoza MD #### 60885, 1759 #### [facility] [address] [place] [address] Head Chopper: Joyce Vaca ALT [Catalytic activity/Vol] 16 U/L Normal 6-29 [facility] Comment on above: Performed By: #### 7 600 #### [facility] [address], [address] [place] [address] Head Chopper: Дмитрий Mendoza MD #### 71705, 1759 #### [facility] [address] [place], [place] [id number] Head Chopper: Joyce Vaca AST [Catalytic activity/Vol] 26 U/L Normal 10-35 [facility] Comment on above: Performed By: #### 7 600 #### [facility] [address], [address] [place] [address] Head Chopper: Дмитрий Mendoza MD #### [id number], 1753 #### [facility]-[address] Head Chopper: Joyce Vaca Bilirubin [Mass/Vol] 0.5 mg/dL Normal 0.2-1.2 [facility] Comment on above: Performed By: #### 7 600 #### [facility] [address], [address] [place] [address] Head Chopper: Дмитрий Mendoza MD #### [id number], 1759 #### [facility] [address] [place] [address] Head Chopper: Joyce Vaca BUN/CREATININE RATIO SEE NOTE: Normal 6-22 [facility] Comment on above: Result Comment: Not Reported: BUN and Creatinine are within reference range. Performed By: #### 7 600 #### [facility] [address], [address] [place] [address] Head Chopper: Дмитрий Mendoza MD #### 62638, 1759 #### [facility] [address] Head Chopper: Joyce Vaca Calcium [Mass/Vol] 9.6 mg/dL Normal 8.6-10.4 [facility] Comment on above: Performed By: #### 7 600 #### [facility] [address], [address] [place] [address] Head Chopper: Дмитрий Mendoza MD #### 35327, 1759 #### [facility] [address] Head Chopper: Joyce Hurley Flati Chloride [Moles/Vol] 97 mmol/L Low 98-110 [facility] Comment on above: Performed By: #### 7 600 #### [facility] [address], [address] [place] [address] Head Chopper: Дмитрий Mendoza MD #### 91376, 1759 #### [facility] [address] [place] [address] Head Chopper: Joyce Hurley Flati CO2 [Moles/Vol] 30 mmol/L Normal 20-32 [facility] Comment on above: Performed By: #### 7 600 #### [facility] [address], [address] [place] [address] Head Chopper: Дмитрий Mendoza MD #### 52540, 1759 #### [facility] [address] [place] [address] Head Chopper: Joyce Vaca Creatinine [Mass/Vol] 0.69 mg/dL Normal 0.60-1.[address] [facility] Comment on above: Performed By: #### 7 600 #### [facility] [address], [address] [place] [address] Head Chopper: Дмитрий Mendoza MD #### [id number], 1759 #### [facility] [address] Head Chopper: Joyce Vaca GFR/1.73 sq M.predicted among non-blacks MDRD (S/P/Bld) [Vol rate/Area] 90 mL/min/{1.73_m2} Normal > OR = 60 [facility] Comment on above: Performed By: #### 7 600 #### [facility] [address], [address] [place] [address] Head Chopper: Дмитрий Mendoza MD #### 70635, 1759 #### [facility] [address] Head Chopper: Joyce Vaca Globulin (S) [Mass/Vol] 2.8 g/dL Normal 1.9-3.7 [facility] Comment on above: Performed By: #### 7 600 #### [facility] [address], [address] [place] [address] Head Chopper: Дмитрий Mendoza MD #### 96820, 1759 #### [facility] [address] [place] [address] Head Chopper: Joyce Vaca Glucose [Mass/Vol] 81 mg/dL Normal 65-139 [facility] Comment on above: Result Comment: Non-fasting reference interval Performed By: #### 7 600 #### [facility] [address], [address] [place], [place] [address] Head Chopper: Дмитрий Mendoza MD #### 60946, 1759 #### [facility] [address] [place] [address] Head Chopper: Joyce Friedmani Potassium [Moles/Vol] 4.1 mmol/L Normal 3.5-5.3 [facility] Comment on above: Performed By: #### 7 600 #### [facility] [address], [address] [place] [address] Head Chopper: Дмитрий Mendoza MD #### 51534, 1759 #### [facility] [address] [place], [place] [id number] Head Chopper: Joyce Friedmani Protein [Mass/Vol] 6.5 g/dL Normal 6.1-8.1 [facility] Comment on above: Performed By: #### 7 600 #### [facility] [address], [address] [place] [address] Head Chopper: Дмитрий Mendoza MD #### 83122, 1759 #### [facility] [address] [place], [place] [id number] Head Chopper: Joyce Hurley Flati Sodium [Moles/Vol] 135 mmol/L Normal 135-146 [facility] Comment on above: Performed By: #### 7 600 #### [facility] [address], [address] [place] [address] Head Chopper: Дмитрий Mendoza MD #### 15559, 1759 #### [facility] [address] [place] [address] Head Chopper: Joyce Vaca Urea nitrogen [Mass/Vol] 21 mg/dL Normal 7-25 [facility] Comment on above: Performed By: #### 7 600 #### [facility] [address], [address] [place] [address] Head Chopper: Дмитрий Mendoza MD #### 62460, 1759 #### [facility] [address] [place], [place] [phone] Head Chopper: Joyce Vaca LIPID PANEL, [address] Cholesterol [Mass/Vol] 156 mg/dL Normal <200 [facility] Comment on above: Order Comment: FASTI NG:NO COLLECTION REQUIREMENTS NOT MET. PATIENT ADVISED TO RETURN. FASTING: NO Performed By: #### 7 600 #### [facility] [address], [address] [place] [address] Head Chopper: Дмитрий Mendoza MD #### 83245, 1759 #### [facility] [address] [place] [phone] Head Chopper: Joyce Vaca Cholesterol in HDL [Mass/Vol] 42 mg/dL Low > OR = 50 [facility] Comment on above: Order Comment: FASTI NG:NO COLLECTION REQUIREMENTS NOT MET. PATIENT ADVISED TO RETURN. FASTING: NO Performed By: #### 7 600 #### [facility] [address], [address] [place] [address] Head Chopper: Дмитрий Mendoza MD #### 59613, 1759 #### [facility] [address] [place] [phone] Head Chopper: Joyce Vaca Cholesterol in LDL [Mass/Vol] 85 [...] LDL-C. Devyn SS et al. ZORAIDA. 2013;310(19): 4062-9248 (http://education.Exavio.SmartwareToday.com/faq/KGQ267) Performed By: #### 7 600 #### [facility] [address], [address] [place] [address] Head Chopper: Дмитрий Mendoza MD #### 52226, 1759 #### [facility] [address] [place] [phone] Head Chopper: Joyce Vaca Cholesterol.total/Rocío sterol in HDL [Mass ratio] 3.7 {ratio} Normal <5.0 [facility] Comment on above: Order Comment: FASTI NG:NO COLLECTION REQUIREMENTS NOT MET. PATIENT ADVISED TO RETURN. FASTING: NO Performed By: #### 7 600 #### [facility] [address], [address] [place] [address] Head Chopper: Дмитрий Mendoza MD #### 35364, 1759 #### [facility] [address] [place] [address] Head Chopper: Joyce Vaca NON HDL CHOLESTEROL 114 mg/dL [...] #### 7 600 #### [facility] [address], [address] [place] [address] Head Chopper: Дмитрий Mendoza MD #### 07073, 1759 #### [facility] [address] [place] [phone] Head Chopper: Joyce Vaca Triglyceride [Mass/Vol] 197 mg/dL High <150 [facility] Comment on above: Order Comment: FASTI NG:NO COLLECTION REQUIREMENTS NOT MET. PATIENT ADVISED TO RETURN. FASTING: NO Performed By: #### 7 600 #### [facility] [address], [address] [place] [address] Head Chopper: Дмитрий Mendoza MD #### 57315, 1759 #### [facility] [address] [place] [phone] Head Chopper: Joyce Vaca MR lumbar spine wo conon MR lumbar spine wo con [facility] [place] [address] [place] [address] XRay Report Signed Patient: Nuvia Martin MR#: [id number] : 1945 Acct:[id number] Age/Sex: 78 / F ADM Date: 09/16/23 Loc: MR Room: Type: [facility] Attending Dr: Wily Prado MD Copies to: Wily Prado MD Ordering Provider: Wily Prado MD Date of Service: 09/16/23 MR/MR lumbar spine wo con: M51.36, M43.16 M54.42, M54.41 ([id number]) XR/XR pre/post mri xray: M54.42, M54.41, M51.36, [...] Latonya Riggs M.D.09/16/2023 10:57 AM Dictation Location: [place] [address] Transcribed By: MARLON 09/16/23 1057 Dictated By: Latonya Riggs MD 09/16/23 1046 Signed By: 09/16/23 1057 Normal [facility] Alanine aminotransferase [En zymatic activity/volume] in Serum or PlasmaOrdered By: Taylor Tijerina on 01-31-2023 ALT [Catalytic activity/Vol] 16 U/L 7-52 [facility] Albumin [Mass/volume] in Ser um or Plasma by Bromocresol green (BCG) dye binding methoOrdered By: Taylor Tijerina on 01-31-2023 Albumin BCG dye [Mass/Vol] 3.7 g/dL 3.5-5.7 [facility] Alkaline phosphatase [Enzyma tic activity/volume] in Serum or PlasmaOrdered By: Taylor Tijerina on 01-31-2023 ALP [Catalytic activity/Vol] 72 U/L 34-104 [facility] Aspartate aminotransferase [ Enzymatic activity/volume] in Serum or PlasmaOrdered By: Taylor Tijerina on 01-31-2023 AST [Catalytic activity/Vol] 24 U/L 13-39 [facility] Basophils Auto (Bld) [#/Vol] Ordered By: Taylor Tijerina on 01-31-2023 Basophils (Bld) [#/Vol] 0.1 10*3/uL 0.0-0.2 [facility] Basophils/100 WBC Auto (Bld) Ordered By: Taylor Tijerina on 01-31-2023 Basophils/100 WBC (Bld) 0.9 % . F [facility] Bilirubin.total [Mass/volume ] in Serum or PlasmaOrdered By: Taylor Tijerina on 01-31-2023 Bilirubin [Mass/Vol] 0.4 mg/dL 0.3-1.0 [facility] Calcium [Mass/volume] in Ser um or PlasmaOrdered By: Taylor Tijerina on 01-31-2023 Calcium [Mass/Vol] 9.1 mg/dL 8.6-10.3 [facility] Carbon dioxide, total [Moles /volume] in Serum or PlasmaOrdered By: Taylor Tijerina on 01-31-2023 CO2 [Moles/Vol] 30.6 mmol/L 21.0-31.0 [facility] Chloride [Moles/volume] in S ramiro or PlasmaOrdered By: Taylor Tijerina on 01-31-2023 Chloride [Moles/Vol] 102 mmol/L 98-107 [facility] Creatinine [Mass/volume] in Serum or PlasmaOrdered By: Taylor Tijerina on 01-31-2023 Creatinine [Mass/Vol] 0.90 mg/dL 0.60-1.20 [facility] Eosinophils Auto (Bld) [#/Vo l]Ordered By: Taylor Tijerina on 01-31-2023 Eosinophils (Bld) [#/Vol] 0.1 10*3/uL 0.0-0.45 [facility] Eosinophils/100 WBC Auto (Bl d)Ordered By: Taylor Tijerina on 01-31-2023 Eosinophils/100 WBC (Bld) 2.0 % . [facility] Erythrocyte distribution wid th Auto (RBC) [Ratio]Ordered By: Taylor Tijerina on 01-31-2023 Erythrocyte distribution width (RBC) [Ratio] 13.8 % 11.9-15.3 [facility] Ferritin [Mass/volume] in Se rum or PlasmaOrdered By: Taylor Tijerina on 01-31-2023 Ferritin [Mass/Vol] 58.3 ng/mL 11.0-306.8 [facility] Globulin Calc (S) [Mass/Vol] Ordered By: Taylor Tijerina on 01-31-2023 Globulin (S) [Mass/Vol] 2.6 g/dL F [facility] Glucose [Mass/volume] in Ser um or PlasmaOrdered By: Taylor Tijerina on 01-31-2023 Glucose [Mass/Vol] 118 mg/dL 70-100 [facility] Comment on above: ADA recommended refe rence rangeRandom Glucose Reference Range is dependent on time and content of last meal. Glucose of more than 200 mg/dL in a nonstressed, ambulatory subject supports the diagnosis of Diabetes Mellitus. Hematocrit Auto (Bld) [Volum e fraction]Ordered By: Taylor Tijerina on 01-31-2023 Hematocrit (Bld) [Volume fraction] 40.4 % 34.0-46.4 [facility] Hemoglobin [Mass/volume] in BloodOrdered By: Taylor Tijerina 01-31-2023 Hemoglobin (Bld) [Mass/Vol] 13.9 g/dL 11.8-15.4 [facility] Iron [Mass/volume] in Serum or PlasmaOrdered By: Taylor Tijerina 01-31-2023 Iron [Mass/Vol] 91 ug/dL 50-212 [facility] Iron binding capacity [Mass/ volume] in Serum or PlasmaOrdered By: Taylor Tijerina on 01-31-2023 Iron binding capacity [Mass/Vol] 385 ug/dL 255-450 [facility] Iron saturation [Mass Fracti on] in Serum or PlasmaOrdered By: Taylor Tijerina on 01-31-2023 Iron saturation [Mass fraction] 23.6 % 20-50 [facility] Leukocytes [#/volume] correc shara for nucleated erythrocytes in Blood by Automated counOrdered By: Taylor Tijerina on 01-31-2023 WBC corrected for nucl RBC Auto (Bld) [#/Vol] 6.9 10*3/uL 3.8-11.6 [facility] Lymphocytes Auto (Bld) [#/Vo l]Ordered By: Taylor Tijerina on 01-31-2023 Lymphocytes (Bld) [#/Vol] 1.8 10*3/uL 1.00-4.8 [facility] Lymphocytes/100 WBC Auto (Bl d)Ordered By: Taylor Tijerina on 01-31-2023 Lymphocytes/100 WBC (Bld) 26.2 % . [facility] MCH Auto (RBC) [Entitic mass ]Ordered By: Taylor Tijerina on 01-31-2023 MCH (RBC) [Entitic mass] 32.5 pg 24.7-34.3 [facility] MCHC Auto (RBC) [Mass/Vol]Or dered By: Taylor Tijerina on 01-31-2023 MCHC (RBC) [Mass/Vol] 34.4 g/dL 32.0-35.0 [facility] MCV Auto (RBC) [Entitic vol] Ordered By: Taylor Tijerina on 01-31-2023 MCV (RBC) [Entitic vol] 94.5 fL 80-100 [facility] Monocytes Auto (Bld) [#/Vol] Ordered By: Taylor Tijerina on 01-31-2023 Monocytes (Bld) [#/Vol] 0.6 10*3/uL 0.0-0.8 [facility] Monocytes/100 WBC Auto (Bld) Ordered By: Taylor Tijerina on 01-31-2023 Monocytes/100 WBC (Bld) 9.2 % . [facility] Neutrophils Auto (Bld) [#/Vo l]Ordered By: Taylor Tijerina on 01-31-2023 Neutrophils (Bld) [#/Vol] 4.2 10*3/uL 1.8-7.7 [facility] Neutrophils/100 WBC Auto (Bl d)Ordered By: Taylor Tijerina on 01-31-2023 Neutrophils/100 WBC (Bld) 61.7 % . [facility] No Panel InformationOrdered By: Taylor Tijerina on 01-31-2023 Estimated GFR (CKD-EPI) > 60.0 mL/Min [facility] Creatinine Clearance (Chem 49.88 [facility] Nucleated erythrocytes [Pres ence] in Blood by Automated countOrdered By: Taylor Tijerina on 01-31-2023 Nucleated RBC Auto Ql (Bld) 0.1 /100{WBC} 0-0.5 [facility] Platelet mean volume Auto (B ld) [Entitic vol]Ordered By: Taylor Tijerina on 01-31-2023 Platelet mean volume (Bld) [Entitic vol] 7.4 fL 6.3-10.7 [facility] Platelets Auto (Bld) [#/Vol] Ordered By: Taylor Tijerina on 01-31-2023 Platelets (Bld) [#/Vol] 349 10*3/uL 150-450 [facility] Potassium [Moles/volume] in Serum or PlasmaOrdered By: Taylor Tijerina on 01-31-2023 Potassium [Moles/Vol] 4.2 mmol/L 3.5-5.1 [facility] Comment on above: Hemolysis is present at a level that could interfere with the result. Protein [Mass/volume] in Ser um or PlasmaOrdered By: Taylor Tijerina on 01-31-2023 Protein [Mass/Vol] 6.3 g/dL 6.4-8.9 [facility] RBC Auto (Bld) [#/Vol]Ordere d By: Taylor Tijerina on 01-31-2023 RBC (Bld) [#/Vol] 4.27 10*6/uL 3.60-5.00 [facility] Serum or plasma albumin/glob ulin mass ratioOrdered By: Taylor Tijerina on 01-31-2023 Albumin/Globulin [Mass ratio] 1.4 {ratio} [facility] Serum or plasma anion gap de terminationOrdered By: Taylor Tijerina on 01-31-2023 Anion gap [Moles/Vol] 7.6 mmol/L 6.0-15.0 [facility] Sodium [Moles/volume] in Ser um or PlasmaOrdered By: Taylor Tijerina on 01-31-2023 Sodium [Moles/Vol] 136 mmol/L 136-145 [facility] Transferrin [Mass/volume] in Serum or PlasmaOrdered By: Taylor Tijerina on 01-31-2023 Transferrin [Mass/Vol] 275 mg/dL 203-362 [facility] Urea nitrogen [Mass/volume] in Serum or PlasmaOrdered By: Taylor Tijerina on 01-31-2023 Urea nitrogen [Mass/Vol] 24 mg/dL 7-25 [facility] WBC Auto (Bld) [#/Vol]Ordere d By: Taylor Tijerina on 01-31-2023 WBC (Bld) [#/Vol] 6.9 10*3/uL 3.8-11.6 [facility] Alanine aminotransferase [En zymatic activity/volume] in Serum or PlasmaOrdered By: Taylor Tijerina on 11-01-2022 ALT [Catalytic activity/Vol] 18 U/L 7-52 [facility] Albumin [Mass/volume] in Ser um or Plasma by Bromocresol green (BCG) dye binding methoOrdered By: Taylor Tijerina on 11-01-2022 Albumin BCG dye [Mass/Vol] 3.8 g/dL 3.5-5.7 [facility] Alkaline phosphatase [Enzyma tic activity/volume] in Serum or PlasmaOrdered By: Taylor Tijerina on 11-01-2022 ALP [Catalytic activity/Vol] 38 U/L 34-104 [facility] Aspartate aminotransferase [ Enzymatic activity/volume] in Serum or PlasmaOrdered By: Taylor Tijerina on 11-01-2022 AST [Catalytic activity/Vol] 22 U/L 13-39 [facility] Basophils Auto (Bld) [#/Vol] Ordered By: Taylor Tijerina on 11-01-2022 Basophils (Bld) [#/Vol] 0.1 10*3/uL 0.0-0.2 [facility] Basophils/100 WBC Auto (Bld) Ordered By: Taylor Tijerina on 11-01-2022 Basophils/100 WBC (Bld) 1.3 % . [facility] Bilirubin.total [Mass/volume ] in Serum or PlasmaOrdered By: Taylor Tijerina on 11-01-2022 Bilirubin [Mass/Vol] 0.4 mg/dL 0.3-1.0 [facility] Calcium [Mass/volume] in Ser um or PlasmaOrdered By: Taylor Tijerina on 11-01-2022 Calcium [Mass/Vol] 9.2 mg/dL 8.6-10.3 [facility] Carbon dioxide, total [Moles /volume] in Serum or PlasmaOrdered By: Taylor Tijerina on 11-01-2022 CO2 [Moles/Vol] 28.9 mmol/L 21.0-31.0 [facility] Chloride [Moles/volume] in S ramiro or PlasmaOrdered By: Taylor Tijerina on 11-01-2022 Chloride [Moles/Vol] 100 mmol/L 98-107 [facility] Creatinine [Mass/volume] in Serum or PlasmaOrdered By: Taylor Tijerina on 11-01-2022 Creatinine [Mass/Vol] 0.76 mg/dL 0.60-1.20 [facility] Eosinophils Auto (Bld) [#/Vo l]Ordered By: Taylor Tijerina on 11-01-2022 Eosinophils (Bld) [#/Vol] 0.1 10*3/uL 0.0-0.45 [facility] Eosinophils/100 WBC Auto (Bl d)Ordered By: Taylor Tijerina on 11-01-2022 Eosinophils/100 WBC (Bld) 1.7 % . [facility] Erythrocyte distribution wid th Auto (RBC) [Ratio]Ordered By: Taylor Tijerina on 11-01-2022 Erythrocyte distribution width (RBC) [Ratio] 13.6 % 11.9-15.3 [facility] Ferritin [Mass/volume] in Se rum or PlasmaOrdered By: Taylor Tijerina on 11-01-2022 Ferritin [Mass/Vol] 90.9 ng/mL 11.0-306.8 [facility] Globulin Calc (S) [Mass/Vol] Ordered By: Taylor Tijerina on 11-01-2022 Globulin (S) [Mass/Vol] 2.2 g/dL [facility] Glucose [Mass/volume] in Ser um or PlasmaOrdered By: Tyalor Tijerina on 11-01-2022 Glucose [Mass/Vol] 118 mg/dL 70-100 [facility] Comment on above: ADA recommended refe rence rangeRandom Glucose Reference Range is dependent on time and content of last meal. Glucose of more than 200 mg/dL in a nonstressed, ambulatory subject supports the diagnosis of Diabetes Mellitus. Hematocrit Auto (Bld) [Volum e fraction]Ordered By: Taylor Tijerina on 11-01-2022 Hematocrit (Bld) [Volume fraction] 37.4 % 34.0-46.4 [facility] Hemoglobin [Mass/volume] in BloodOrdered By: Taylor Tijerina on 11-01-2022 Hemoglobin (Bld) [Mass/Vol] 13.0 g/dL 11.8-15.4 [facility] Iron [Mass/volume] in Serum or PlasmaOrdered By: Taylor Tijerina on 11-01-2022 Iron [Mass/Vol] 94 ug/dL 50-212 [facility] Iron binding capacity [Mass/ volume] in Serum or PlasmaOrdered By: Taylor Tijerina on 11-01-2022 Iron binding capacity [Mass/Vol] 372 ug/dL 255-450 [facility] Iron saturation [Mass Fracti on] in Serum or PlasmaOrdered By: Taylor Tijerina on 11-01-2022 Iron saturation [Mass fraction] 25.3 % 20-50 [facility] Leukocytes [#/volume] correc shara for nucleated erythrocytes in Blood by Automated counOrdered By: Taylor Tijerina on 11-01-2022 WBC corrected for nucl RBC Auto (Bld) [#/Vol] 6.3 10*3/uL 3.8-11.6 [facility] Lymphocytes Auto (Bld) [#/Vo l]Ordered By: Taylor Tijerina on 11-01-2022 Lymphocytes (Bld) [#/Vol] 1.7 10*3/uL 1.00-4.8 [facility] Lymphocytes/100 WBC Auto (Bl d)Ordered By: Taylor Tijerina on 11-01-2022 Lymphocytes/100 WBC (Bld) 26.9 % . [facility] MCH Auto (RBC) [Entitic mass ]Ordered By: Taylor Tijerina on 11-01-2022 MCH (RBC) [Entitic mass] 33.1 pg 24.7-34.3 [facility] MCHC Auto (RBC) [Mass/Vol]Or dered By: Taylor Tijerina on 11-01-2022 MCHC (RBC) [Mass/Vol] 34.7 g/dL 32.0-35.0 [facility] MCV Auto (RBC) [Entitic vol] Ordered By: Taylor Tijerina on 11-01-2022 MCV (RBC) [Entitic vol] 95.6 fL 80-100 [facility] Monocytes Auto (Bld) [#/Vol] Ordered By: Taylor Tijerina on 11-01-2022 Monocytes (Bld) [#/Vol] 0.6 10*3/uL 0.0-0.8 [facility] Monocytes/100 WBC Auto (Bld) Ordered By: Taylor Tijerina on 11-01-2022 Monocytes/100 WBC (Bld) 9.5 % . [facility] Neutrophils Auto (Bld) [#/Vo l]Ordered By: Taylor Tijerina on 11-01-2022 Neutrophils (Bld) [#/Vol] 3.8 10*3/uL 1.8-7.7 [facility] Neutrophils/100 WBC Auto (Bl d)Ordered By: Taylor Tijerina on 11-01-2022 Neutrophils/100 WBC (Bld) 60.6 % . [facility] No Panel InformationOrdered By: Taylor Tijerina on 11-01-2022 Estimated GFR (CKD-EPI) > 60.0 mL/Min [facility] Creatinine Clearance (Chem 57.26 [facility] Nucleated erythrocytes [Pres ence] in Blood by Automated countOrdered By: Taylor Tijerina on 11-01-2022 Nucleated RBC Auto Ql (Bld) 0.2 /100{WBC} 0-0.5 [facility] Platelet mean volume Auto (B ld) [Entitic vol]Ordered By: Taylor Tijerina on 11-01-2022 Platelet mean volume (Bld) [Entitic vol] 7.1 fL 6.3-10.7 [facility] Platelets Auto (Bld) [#/Vol] Ordered By: Taylor Tijerina on 11-01-2022 Platelets (Bld) [#/Vol] 266 10*3/uL 150-450 [facility] Potassium [Moles/volume] in Serum or PlasmaOrdered By: Taylor Tijerina on 11-01-2022 Potassium [Moles/Vol] 4.3 mmol/L 3.5-5.1 [facility] Protein [Mass/volume] in Ser um or PlasmaOrdered By: Taylor Tijerina on 11-01-2022 Protein [Mass/Vol] 6.0 g/dL 6.4-8.9 [facility] RBC Auto (Bld) [#/Vol]Ordere d By: Taylor Tijerina on 11-01-2022 RBC (Bld) [#/Vol] 3.92 10*6/uL 3.60-5.00 [facility] Serum or plasma albumin/glob ulin mass ratioOrdered By: Taylor Tijerina on 11-01-2022 Albumin/Globulin [Mass ratio] 1.7 {ratio} [facility] Serum or plasma anion gap de terminationOrdered By: Taylor Tijerina on 11-01-2022 Anion gap [Moles/Vol] 11.4 mmol/L 6.0-15.0 [facility] Sodium [Moles/volume] in Ser um or PlasmaOrdered By: Taylor Tijerina on 11-01-2022 Sodium [Moles/Vol] 136 mmol/L 136-145 [facility] Transferrin [Mass/volume] in Serum or PlasmaOrdered By: Taylor Tijerina on 11-01-2022 Transferrin [Mass/Vol] 266 mg/dL 203-362 [facility] Urea nitrogen [Mass/volume] in Serum or PlasmaOrdered By: Taylor Tijerina on 11-01-2022 Urea nitrogen [Mass/Vol] 22 mg/dL 7-25 [facility] WBC Auto (Bld) [#/Vol]Ordere d By: Taylor Tijerina on 11-01-2022 WBC (Bld) [#/Vol] 6.3 10*3/uL 3.8-11.6 [facility] Basophils Auto (Bld) [#/Vol] Ordered By: Emily Degroot on 07-22-2022 Basophils (Bld) [#/Vol] 0.0 10*3/uL 0.0-0.2 [facility] Basophils/100 WBC Auto (Bld) Ordered By: Emily Degroot on 07-22-2022 Basophils/100 WBC (Bld) 0.5 % . [facility] Eosinophils Auto (Bld) [#/Vo l]Ordered By: Emily Degroot on 07-22-2022 Eosinophils (Bld) [#/Vol] 0.1 10*3/uL 0.0-0.45 [facility] Eosinophils/100 WBC Auto (Bl d)Ordered By: Emily Degroot on 07-22-2022 Eosinophils/100 WBC (Bld) 1.8 % . [facility] Erythrocyte distribution wid th Auto (RBC) [Ratio]Ordered By: Emily Degroot on 07-22-2022 Erythrocyte distribution width (RBC) [Ratio] 15.1 % 11.9-15.3 [facility] Ferritin [Mass/volume] in Se rum or PlasmaOrdered By: Emily Degroot on 07-22-2022 Ferritin [Mass/Vol] 27.4 ng/mL 11.0-306.8 [facility] Hematocrit Auto (Bld) [Volum e fraction]Ordered By: Emily Degroot on 07-22-2022 Hematocrit (Bld) [Volume fraction] 39.5 % 34.0-46.4 [facility] Hemoglobin [Mass/volume] in BloodOrdered By: Emily Degroot on 07-22-2022 Hemoglobin (Bld) [Mass/Vol] 13.5 g/dL 11.8-15.4 [facility] Iron [Mass/volume] in Serum or PlasmaOrdered By: Emily Degroot on 07-22-2022 Iron [Mass/Vol] 75 ug/dL 50-212 [facility] Iron binding capacity [Mass/ volume] in Serum or PlasmaOrdered By: Emily Degroot on 07-22-2022 Iron binding capacity [Mass/Vol] 486 ug/dL 255-450 [facility] Iron saturation [Mass Fracti on] in Serum or PlasmaOrdered By: Emily Degroot on 07-22-2022 Iron saturation [Mass fraction] 15.4 % 20-50 [facility] Leukocytes [#/volume] correc shara for nucleated erythrocytes in Blood by Automated counOrdered By: Emily Degroot on 07-22-2022 WBC corrected for nucl RBC Auto (Bld) [#/Vol] 6.2 10*3/uL 3.8-11.6 [facility] Lymphocytes Auto (Bld) [#/Vo l]Ordered By: Emily Degroot on 07-22-2022 Lymphocytes (Bld) [#/Vol] 1.5 10*3/uL 1.00-4.8 [facility] Lymphocytes/100 WBC Auto (Bl d)Ordered By: Emily Degroot on 07-22-2022 Lymphocytes/100 WBC (Bld) 24.3 % . [facility] MCH Auto (RBC) [Entitic mass ]Ordered By: Emily Degroot on 07-22-2022 MCH (RBC) [Entitic mass] 31.7 pg 24.7-34.3 [facility] MCHC Auto (RBC) [Mass/Vol]Or dered By: Emily Degroot on 07-22-2022 MCHC (RBC) [Mass/Vol] 34.1 g/dL 32.0-35.0 [facility] MCV Auto (RBC) [Entitic vol] Ordered By: Emily Degroot on 07-22-2022 MCV (RBC) [Entitic vol] 92.9 fL 80-100 [facility] Monocytes Auto (Bld) [#/Vol] Ordered By: Emily Degroot on 07-22-2022 Monocytes (Bld) [#/Vol] 0.5 10*3/uL 0.0-0.8 [facility] Monocytes/100 WBC Auto (Bld) Ordered By: Emily Degroot on 07-22-2022 Monocytes/100 WBC (Bld) 7.9 % . [facility] Neutrophils Auto (Bld) [#/Vo l]Ordered By: Emily Degroot on 07-22-2022 Neutrophils (Bld) [#/Vol] 4.1 10*3/uL 1.8-7.7 [facility] Neutrophils/100 WBC Auto (Bl d)Ordered By: Emily Degroot on 07-22-2022 Neutrophils/100 WBC (Bld) 65.5 % . [facility] Nucleated erythrocytes [Pres ence] in Blood by Automated countOrdered By: Emily Degroot on 07-22-2022 Nucleated RBC Auto Ql (Bld) 0.1 /100{WBC} 0-0.5 [facility] Platelet mean volume Auto (B ld) [Entitic vol]Ordered By: Emily Degroot on 07-22-2022 Platelet mean volume (Bld) [Entitic vol] 7.1 fL 6.3-10.7 [facility] Platelets Auto (Bld) [#/Vol] Ordered By: Emily Degroot on 07-22-2022 Platelets (Bld) [#/Vol] 308 10*3/uL 150-450 [facility] RBC Auto (Bld) [#/Vol]Ordere d By: Emily Degroot on 07-22-2022 RBC (Bld) [#/Vol] 4.25 10*6/uL 3.60-5.00 [facility] Transferrin [Mass/volume] in Serum or PlasmaOrdered By: Emily Degroot on 07-22-2022 Transferrin [Mass/Vol] 347 mg/dL 203-362 [facility] WBC Auto (Bld) [#/Vol]Ordere d By: Emily Degroot on 07-22-2022 WBC (Bld) [#/Vol] 6.2 10*3/uL 3.8-11.6 [facility] Anisocytosis LM Ql (Bld)Orde red By: Marisabel Noel on 04-23-2022 Anisocytosis Ql (Bld) Moderate [facility] Basophils Auto (Bld) [#/Vol] Ordered By: Marisabel Noel on 04-23-2022 Basophils (Bld) [#/Vol] 0.1 10*3/uL 0.0-0.2 [facility] Basophils/100 WBC Auto (Bld) Ordered By: Marisabel Noel on 04-23-2022 Basophils/100 WBC (Bld) 0.8 % . [facility] CT biopsyOrdered By: Marisabel foss on 04-23-2022 Transferrin [Mass/Vol] 309 mg/dL 180-380 [facility] Eosinophils Auto (Bld) [#/Vo l]Ordered By: Marisabel Noel on 04-23-2022 Eosinophils (Bld) [#/Vol] 0.2 10*3/uL 0.0-0.45 [facility] Eosinophils/100 WBC Auto (Bl d)Ordered By: Marisabel Noel on 04-23-2022 Eosinophils/100 WBC (Bld) 3.3 % . [facility] Erythrocyte distribution wid th Auto (RBC) [Ratio]Ordered By: Marisabel Noel on 04-23-2022 Erythrocyte distribution width (RBC) [Ratio] 16.9 % 11.9-15.3 [facility] Ferritin [Mass/volume] in Se rum or PlasmaOrdered By: Marisabel Noel on 04-23-2022 Ferritin [Mass/Vol] 40.0 ng/mL 11-306.8 [facility] Hematocrit Auto (Bld) [Volum e fraction]Ordered By: Marisabel Noel on 04-23-2022 Hematocrit (Bld) [Volume fraction] 40.2 % 34.0-46.4 [facility] Hemoglobin [Mass/volume] in BloodOrdered By: Marisabel Noel on 04-23-2022 Hemoglobin (Bld) [Mass/Vol] 13.5 g/dL 11.8-15.4 [facility] Hypochromia LM Ql (Bld)Order ed By: Marisabel Noel on 04-23-2022 Hypochromia Ql (Bld) Moderate [facility] Iron [Mass/volume] in Serum or PlasmaOrdered By: Marisabel Noel on 04-23-2022 Iron [Mass/Vol] 73 ug/dL 40-150 [facility] Iron binding capacity [Mass/ volume] in Serum or PlasmaOrdered By: Marisabel Noel on 04-23-2022 Iron binding capacity [Mass/Vol] 433 ug/dL 255-450 [facility] Iron saturation [Mass Fracti on] in Serum or PlasmaOrdered By: Marisabel Noel on 04-23-2022 Iron saturation [Mass fraction] 16.0 % 20-50 [facility] Leukocytes [#/volume] correc shara for nucleated erythrocytes in Blood by Automated counOrdered By: Marisabel Noel on 04-23-2022 WBC corrected for nucl RBC Auto (Bld) [#/Vol] 7.0 10*3/uL 3.8-11.6 [facility] Lymphocytes Auto (Bld) [#/Vo l]Ordered By: Marisabel Noel on 04-23-2022 Lymphocytes (Bld) [#/Vol] 1.4 10*3/uL 1.00-4.8 [facility] Lymphocytes/100 WBC Auto (Bl d)Ordered By: Marisabel Noel on 04-23-2022 Lymphocytes/100 WBC (Bld) 20.8 % . [facility] MCH Auto (RBC) [Entitic mass ]Ordered By: Marisabel Noel on 04-23-2022 MCH (RBC) [Entitic mass] 29.8 pg 24.7-34.3 [facility] MCHC Auto (RBC) [Mass/Vol]Or dered By: Marisabel Noel on 04-23-2022 MCHC (RBC) [Mass/Vol] 33.4 g/dL 32.0-35.0 [facility] MCV Auto (RBC) [Entitic vol] Ordered By: Marisabel Noel on 04-23-2022 MCV (RBC) [Entitic vol] 89.2 fL 80-100 [facility] Microcytes LM Ql (Bld)Ordere d By: Marisabel Noel on 04-23-2022 Microcytes Ql (Bld) Slight [facility] Monocytes Auto (Bld) [#/Vol] Ordered By: Marisabel Noel on 04-23-2022 Monocytes (Bld) [#/Vol] 0.5 10*3/uL 0.0-0.8 [facility] Monocytes/100 WBC Auto (Bld) Ordered By: Marisabel Noel on 04-23-2022 Monocytes/100 WBC (Bld) 6.9 % . [facility] Neutrophils Auto (Bld) [#/Vo l]Ordered By: Marisabel Noel on 04-23-2022 Neutrophils (Bld) [#/Vol] 4.7 10*3/uL 1.8-7.7 [facility] Neutrophils/100 WBC Auto (Bl d)Ordered By: Marisabel Noel on 04-23-2022 Neutrophils/100 WBC (Bld) 68.2 % . [facility] Nucleated erythrocytes [Pres ence] in Blood by Automated countOrdered By: Marisabel Noel on 04-23-2022 Nucleated RBC Auto Ql (Bld) 0.1 /100{WBC} 0-0.5 [facility] Ovalocyte detectionOrdered B y: Marisabel Noel on 04-23-2022 Ovalocytes LM Ql (Bld) Slight [facility] Platelet adequacy [Presence] in Blood by Light microscopyOrdered By: Marisabel Noel on 04-23-2022 Platelets LM Ql (Bld) Normal Normal [facility] Platelet mean volume Auto (B ld) [Entitic vol]Ordered By: Marisabel Noel on 04-23-2022 Platelet mean volume (Bld) [Entitic vol] 6.9 fL 6.3-10.7 [facility] Platelet morphology finding [Identifier] in BloodOrdered By: Marisabel Noel on 04-23-2022 Platelet morphology finding Nom (Bld) Normal Normal [facility] Platelets Auto (Bld) [#/Vol] Ordered By: Marisabel Noel on 04-23-2022 Platelets (Bld) [#/Vol] 298 10*3/uL 150-450 [facility] RBC Auto (Bld) [#/Vol]Ordere d By: Marisabel Noel on 04-23-2022 RBC (Bld) [#/Vol] 4.51 10*6/uL 3.60-5.00 [facility] RBC morphologyOrdered By: Pablo Noel on 04-23-2022 RBC morphology finding Nom (Bld) N/A [facility] Red blood cell stomatocyte d etectionOrdered By: Marisabel Noel on 04-23-2022 Stomatocytes LM Ql (Bld) Slight [facility] WBC Auto (Bld) [#/Vol]Ordere d By: Marisabel Noel on 04-23-2022 WBC (Bld) [#/Vol] 7.0 10*3/uL 3.8-11.6 [facility] Basophils Auto (Bld) [#/Vol] Ordered By: Taylor Tijerina on 02-18-2022 Basophils (Bld) [#/Vol] N/A [facility] Basophils/100 WBC Auto (Bld) Ordered By: Taylor Tijerina on 02-18-2022 Basophils/100 WBC (Bld) N/A [facility] Basophils/100 WBC (Bld) 1 % 0-2 [facility] Blood anisocytosis detection Ordered By: Taylor Tijerina on 02-18-2022 Anisocytosis Ql (Bld) Marked [facility] Blood hemoglobin measurement (mass/volume)Ordered By: Taylor Tijerina on 02-18-2022 Hemoglobin (Bld) [Mass/Vol] 11.1 g/dL 11.8-15.4 [facility] Blood leukocytes automated c ount (number/volume)Ordered By: Taylor Tijerina on 02-18-2022 WBC (Bld) [#/Vol] 4.5 10*3/uL 4.5-11.[address] [facility] [address] biopsyOrdered By: Taylor Trammell on 02-18-2022 Transferrin [Mass/Vol] 297 mg/dL 180-380 [facility] Eosinophils Auto (Bld) [#/Vo l]Ordered By: Taylor Tijerina on 02-18-2022 Eosinophils (Bld) [#/Vol] N/A [facility] Eosinophils/100 WBC Auto (Bl d)Ordered By: Taylor Tijerina on 02-18-2022 Eosinophils/100 WBC (Bld) N/A [facility] Erythrocyte distribution wid th Auto (RBC) [Ratio]Ordered By: Taylor Tijerina on 02-18-2022 Erythrocyte distribution width (RBC) [Ratio] 38.8 % 11.9-15.3 [facility] Ferritin [Mass/volume] in Se rum or PlasmaOrdered By: Taylor Tijerina on 02-18-2022 Ferritin [Mass/Vol] 229.8 ng/mL 11-306.8 [facility] Hematocrit Auto (Bld) [Volum e fraction]Ordered By: Taylor Tijerina on 02-18-2022 Hematocrit (Bld) [Volume fraction] 35.2 % 34.0-46.4 [facility] Hypochromia detectionOrdered By: Taylor Tijerina on 02-18-2022 Hypochromia Ql (Bld) Marked [facility] Iron [Mass/volume] in Serum or PlasmaOrdered By: Taylor Tijerina on 02-18-2022 Iron [Mass/Vol] 116 ug/dL 40-150 [facility] Iron binding capacity [Mass/ volume] in Serum or PlasmaOrdered By: Taylor Tijerina on 02-18-2022 Iron binding capacity [Mass/Vol] 416 ug/dL 255-450 [facility] Iron saturation [Mass Fracti on] in Serum or PlasmaOrdered By: Taylor Tijerina on 02-18-2022 Iron saturation [Mass fraction] 27.0 % 20-50 [facility] Laboratory - Hematology and Cell countsOrdered By: Taylor Tijerina on 02-18-2022 Band form neutrophils/100 WBC (Bld) 2 % 0-5 [facility] Nucleated RBC/100 WBC (Bld) [Ratio] 0.1 % 0-0.5 [facility] Lymphocytes Auto (Bld) [#/Vo l]Ordered By: Taylor Tijerina on 02-18-2022 Lymphocytes (Bld) [#/Vol] N/A [facility] Lymphocytes/100 WBC Auto (Bl d)Ordered By: Taylor Tijerina on 02-18-2022 Lymphocytes/100 WBC (Bld) N/A [facility] Lymphocytes/100 WBC (Bld) 21 % 18-42 [facility] Lymphocytes/100 WBC Manual c nt (Bld)Ordered By: Taylor Tijerina on 02-18-2022 Lymphocytes/100 WBC (Bld) 2 % 0-12 [facility] MCH Auto (RBC) [Entitic mass ]Ordered By: Taylor Tijerina on 02-18-2022 MCH (RBC) [Entitic mass] 24.7 pg 24.7-34.3 [facility] MCHC Auto (RBC) [Mass/Vol]Or dered By: Taylor Tijerina on 02-18-2022 MCHC (RBC) [Mass/Vol] 31.6 g/dL 32.0-35.0 [facility] MCV Auto (RBC) [Entitic vol] Ordered By: Taylor Tijerina on 02-18-2022 MCV (RBC) [Entitic vol] 78.3 fL 80-100 [facility] Macrocytes detectionOrdered By: Taylor Tijerina on 02-18-2022 Macrocytes Ql (Bld) Moderate [facility] Monocytes Auto (Bld) [#/Vol] Ordered By: Taylor Tijerina on 02-18-2022 Monocytes (Bld) [#/Vol] N/A [facility] Monocytes/100 WBC Auto (Bld) Ordered By: Taylor Tijerina on 02-18-2022 Monocytes/100 WBC (Bld) N/A [facility] Monocytes/100 WBC Manual cnt (Bld)Ordered By: Taylor Tijerina on 02-18-2022 Monocytes/100 WBC (Bld) 6 % 2-11 [facility] Neutrophils Auto (Bld) [#/Vo l]Ordered By: Taylor Tijerina on 02-18-2022 Neutrophils (Bld) [#/Vol] N/A [facility] Neutrophils/100 WBC Auto (Bl d)Ordered By: Taylor Tijerina on 02-18-2022 Neutrophils/100 WBC (Bld) N/A [facility] No Panel InformationOrdered By: Taylor Tijreina on 02-18-2022 Microcytosis Slight [facility] Platelet Estimate Normal Normal [facility] Platelet Morphology Comment Normal Normal [facility] Platelet mean volume Auto (B ld) [Entitic vol]Ordered By: Taylor Tijerina on 02-18-2022 Platelet mean volume (Bld) [Entitic vol] 8.4 fL 6.3-10.7 [facility] Platelets Auto (Bld) [#/Vol] Ordered By: Taylor Tijerina on 02-18-2022 Platelets (Bld) [#/Vol] 363 10*3/uL 150-450 [facility] RBC Auto (Bld) [#/Vol]Ordere d By: Taylor Tijerina on 02-18-2022 RBC (Bld) [#/Vol] 4.49 10*6/uL 3.60-5.00 [facility] RBC morphologyOrdered By: Ana Laura shannon Lilliana on 02-18-2022 RBC morphology finding Nom (Bld) N/A [facility] Red blood cell stomatocyte d etectionOrdered By: Taylor Chengpranay on 02-18-2022 Stomatocytes LM Ql (Bld) Slight [facility] Segmented neutrophils/100 WB C Manual cnt (Bld)Ordered By: Taylor Chengpranay on 02-18-2022 Segmented neutrophils/100 WBC (Bld) 68 % 50-70 [facility] Progress Noteson 02-17-2022 [employer] Authentication Interface Message Text EMERGENCY TRIAGE, TREAT AND TRANSPORT (ET3) DOCUMENTATION OF TELEHEALTH VISIT Date / Time: 02/17/2022916 Name: Nuvia Martin : 1945 SSN: [id number] EMS Agency: [facility] [x] Verbal consent obtained [] [...] Completed by: Cassidy Julio MD Normal [facility] FACIAL BONES WO CONon CT [...] CARSON VASQUEZ Date: 2022-01-14 02:14 Normal [facility] XR CHEST 1 Von 01-14-2022 XR [...] JANET SCHWARTZ Date: 2022-01-14 03:18 Normal [facility] Albumin [Mass/volume] in Ser um or PlasmaOrdered By: Taylor Tijerina on 01-12-2022 Albumin [Mass/Vol] 3.1 g/dL 2.9-4.4 [facility] Basophils Auto (Bld) [#/Vol] Ordered By: Taylor Tijerina on 01-12-2022 Basophils (Bld) [#/Vol] 0.1 10*3/uL 0.0-0.2 [facility] Basophils/100 WBC Auto (Bld) Ordered By: Taylor Tijerina on 01-12-2022 Basophils/100 WBC (Bld) 0.9 % . F [facility] Blood anisocytosis detection Ordered By: Taylor Tijerina on 01-12-2022 Anisocytosis Ql (Bld) Moderate [facility] Blood hemoglobin measurement (mass/volume)Ordered By: Taylor Tijerina on 01-12-2022 Hemoglobin (Bld) [Mass/Vol] 8.2 g/dL 11.8-15.4 [facility] Blood leukocytes automated c ount (number/volume)Ordered By: Taylor Tijerina on 01-12-2022 WBC (Bld) [#/Vol] 6.0 10*3/uL 4.5-11.0 [facility] Blood polychromasia detectio n by light microscopyOrdered By: Taylor Tijerina on 01-12-2022 Polychromasia LM Ql (Bld) Slight [facility] Body fluid albumin measureme nt (mass/volume)Ordered By: Taylor Tijerina on 01-12-2022 Albumin (Body fld) [Mass/Vol] 2.9 g/dL 3.2-5.[address] [facility] [address] biopsyOrdered By: Taylor Trammell on 01-12-2022 Transferrin [Mass/Vol] 479 mg/dL 180-380 [facility] Creatinine and Glomerular fi ltration rate.predicted panel (S/P/Bld)Ordered By: Taylor Tijerina on 01-12-2022 Creatinine [Mass/Vol] 0.76 mg/dL 0.44-1.03 [facility] Eosinophils Auto (Bld) [#/Vo l]Ordered By: Taylor Tijerina on 01-12-2022 Eosinophils (Bld) [#/Vol] 0.1 10*3/uL 0.0-0.45 [facility] Eosinophils/100 WBC Auto (Bl d)Ordered By: Taylor Tijerina on 01-12-2022 Eosinophils/100 WBC (Bld) 1.3 % . [facility] Erythrocyte distribution wid th Auto (RBC) [Ratio]Ordered By: Taylor Tijerina on 01-12-2022 Erythrocyte distribution width (RBC) [Ratio] 22.4 % 11.9-15.3 [facility] Erythrocyte sedimentation ra te by Photometric methodOrdered By: Taylor Tijerina on 01-12-2022 ESR Photometric method (Bld) [Velocity] 21 mm/hr 0-29 [facility] Estimated glomerular filtrat ion rate (GFR) non- AmericanOrdered By: Taylor Tijerina on 01-12-2022 GFR/1.73 sq M.predicted among non-blacks MDRD (S/P/Bld) [Vol rate/Area] > 60 mL/Min [facility] Ferritin [Mass/volume] in Se rum or PlasmaOrdered By: Taylor Tijerina on 01-12-2022 Ferritin [Mass/Vol] 10.8 ng/mL 11-306.8 [facility] Folate [Mass/volume] in Seru m or PlasmaOrdered By: Taylor Tijerina on 01-12-2022 Folate [Mass/Vol] ng/mL >5.9 [facility] Comment on above: Folate reference ran ge: >5.9 ng/ml The WHO technical consultation on folate and vitamin b12 deficiencies has determined that folate concentrations less than 4 ng/ml are considered deficient. Folate reference ran ge: >5.9 ng/mlThe WHO technical consultation on folate and vitamin [id number] has determined that folate concentrations lessthan 4 ng/ml are considered deficient. Globulin Calc (S) [Mass/Vol] Ordered By: Taylor Tijerina on 01-12-2022 Globulin (S) [Mass/Vol] 3.1 g/dL F [facility] Hematocrit Auto (Bld) [Volum e fraction]Ordered By: Taylor Tijerina on 01-12-2022 Hematocrit (Bld) [Volume fraction] 27.4 % 34.0-46.4 [facility] Hypochromia detectionOrdered By: Taylor Tijerina on 01-12-2022 Hypochromia Ql (Bld) Moderate [facility] IgA [Mass/volume] in Serum o r PlasmaOrdered By: Taylor Tijerina on 01-12-2022 IgA [Mass/Vol] 206 mg/dL 64-422 [facility] IgG [Mass/volume] in Serum o r PlasmaOrdered By: Taylor Tijerina on 01-12-2022 IgG [Mass/Vol] 1070 mg/dL 586-1602 [facility] IgM [Mass/volume] in Serum o r PlasmaOrdered By: Taylor Tijerina on 01-12-2022 IgM [Mass/Vol] 166 mg/dL 26-217 [facility] Comment on above: Performed at: [address] [id number] Learning And Development Specialist: Carlos Mcintyre PhD, Phone: [phone] Performed at: [address] [id number] Director: Carlos Mcintyre PhD, Phone: [phone] Immunoglobulin light chains. kappa.free [Mass/volume] in SerumOrdered By: Taylor Tijerina on 01-12-2022 Immunoglobulin light chains.kappa.free (S) [Mass/Vol] 44.4 mg/L 3.3-19.4 [facility] Immunoglobulin light chains. kappa.free/Immunoglobulin light chains.lambda.free [MassOrdered By: Taylor Tijerina on 01-12-2022 Immunoglobulin light chains.kappa.free/Immun oglobulin light chains.lambda.free (S) [Mass ratio] 1.60 0.26-1.65 [facility] Comment on above: Performed at: [address] [id number] Learning And Development Specialist: Carlos Mcintyre PhD, Phone: [phone] Performed at: [employer] [address] [id number] Director: Carlos Mcintyre PhD, Phone: [phone] Immunoglobulin light chains. lambda.free [Mass/volume] in Serum or PlasmaOrdered By: Taylor Tijerina on 01-12-2022 Immunoglobulin light chains.lambda.free [Mass/Vol] 27.7 mg/L 5.7-26.3 [facility] Iron [Mass/volume] in Serum or PlasmaOrdered By: Taylor Tijerina on 01-12-2022 Iron [Mass/Vol] 10 ug/dL 40-150 [facility] Iron binding capacity [Mass/ volume] in Serum or PlasmaOrdered By: Taylor Tijerina on 01-12-2022 Iron binding capacity [Mass/Vol] 671 ug/dL 255-450 [facility] Iron saturation [Mass Fracti on] in Serum or PlasmaOrdered By: Taylor Tijerina on 01-12-2022 Iron saturation [Mass fraction] 1.0 % 20-50 [facility] Laboratory - Chemistry and C hemistry - challengeOrdered By: Taylor Tijerina on 01-12-2022 Cobalamin (Vitamin B12) [Mass/Vol] 700 pg/mL 180-914 [facility] - Hematology and Cell countsOrdered By: Taylor Tijerina on 01-12-2022 Nucleated RBC/100 WBC (Bld) [Ratio] 0.2 % 0-0.5 [facility] Lymphocytes Auto (Bld) [#/Vo l]Ordered By: Taylor Tijerina on 01-12-2022 Lymphocytes (Bld) [#/Vol] 1.1 10*3/uL 1.00-4.8 [facility] Lymphocytes/100 WBC Auto (Bl d)Ordered By: Taylor Tijerina on 01-12-2022 Lymphocytes/100 WBC (Bld) 17.7 % . [facility] Lymphocytes/100 WBC (Bld) 25 % 18-42 [facility] MCH Auto (RBC) [Entitic mass ]Ordered By: Taylor Tijerina on 01-12-2022 MCH (RBC) [Entitic mass] 18.6 pg 24.7-34.3 [facility] MCHC Auto (RBC) [Mass/Vol]Or dered By: Taylor Tijerina on 01-12-2022 MCHC (RBC) [Mass/Vol] 29.8 g/dL 32.0-35.0 [facility] MCV Auto (RBC) [Entitic vol] Ordered By: Taylor Tijerina on 01-12-2022 MCV (RBC) [Entitic vol] 62.5 fL 80-100 [facility] Macrocytes detectionOrdered By: Taylor Tijerina on 01-12-2022 Macrocytes Ql (Bld) Slight [facility] Monocyte %Ordered By: Taylor hogan on 01-12-2022 Monocytes/100 WBC (Bld) 1 % 1-3 [facility] Monocytes Auto (Bld) [#/Vol] Ordered By: Taylor Tijerina on 01-12-2022 Monocytes (Bld) [#/Vol] 0.5 10*3/uL 0.0-0.8 [facility] Monocytes/100 WBC Auto (Bld) Ordered By: Taylor Tijerina on 01-12-2022 Monocytes/100 WBC (Bld) 8.4 % . [facility] Monocytes/100 WBC Manual cnt (Bld)Ordered By: Taylor Lilliana on 01-12-2022 Monocytes/100 WBC (Bld) 6 % 2-11 [facility] Neutrophils Auto (Bld) [#/Vo l]Ordered By: Taylor Chengpranay on 01-12-2022 Neutrophils (Bld) [#/Vol] 4.3 10*3/uL 1.8-7.7 [facility] Neutrophils/100 WBC Auto (Bl d)Ordered By: Taylor Lilliana on 01-12-2022 Neutrophils/100 WBC (Bld) 71.7 % . [facility] No Panel InformationOrdered By: [facility] Prosperpranay on 01-12-2022 Absolute Reticulocyte Count 0.213 10*6/uL 0.024-0.084 [facility] Estimated GFR () > 60 mL/Min [facility] Comment on above: GFR estimated refere nce range: According to KDOQI guidelines, <60 ml/min/1.73m2 is sufficient to diagnose a patient with chronic kidney disease. Microcytosis Slight [facility] Percent Reticulocyte Count 4.9 % 0.5-1.5 [facility] Creatinine Clearance (Chem 60.82 [facility] Platelet Estimate Normal Normal [facility] Platelet Morphology Comment Normal Normal [facility] Protein Electrophoresis M-Brooks Comment: g/dL Not Observed [facility] Comment on above: SPE shows asymmetric al gamma. Protein Electrophoresis Note See comment . [facility] Comment on above: Protein electrophore sis scan will follow via computer, mail, or bakery helper delivery. Performed at: [facility] [id number] Learning And Development Specialist: Carlos Mcintyre PhD, Phone: [phone] Protein electrophore sis scan will follow via computer,mail, or bakery helper delivery.Performed at: [facility] [id number] Director: Carlos Mcintyre PhD, Phone: [phone] Serum Immunofixation Comment: . [facility] Comment on above: Presence of monoclon al [...] volume (Bld) [Entitic vol] 8.4 fL 6.3-10.7 [facility] Platelets Auto (Bld) [#/Vol] Ordered By: Taylor Tijerina on 01-12-2022 Platelets (Bld) [#/Vol] 386 10*3/uL 150-450 [facility] Protein [Mass/volume] in Ser um or PlasmaOrdered By: Taylor Tijerina on 01-12-2022 Protein [Mass/Vol] 6.0 g/dL 6.1-7.9 [facility] Protein [Mass/Vol] 6.4 g/dL 6.0-8.5 [facility] RBC Auto (Bld) [#/Vol]Ordere d By: Taylor Tijerina on 01-12-2022 RBC (Bld) [#/Vol] 4.38 10*6/uL 3.60-5.00 [facility] RBC morphologyOrdered By: Ana Laura Tijerina on 01-12-2022 RBC morphology finding Nom (Bld) N/A [facility] Segmented neutrophils/100 WB C Manual cnt (Bld)Ordered By: Taylor Tijerina on 01-12-2022 Segmented neutrophils/100 WBC (Bld) 68 % 50-70 [facility] Serum globulin measurement ( mass/volume)Ordered By: Taylor Tijerina on 01-12-2022 Globulin (S) [Mass/Vol] 3.3 g/dL 2.2-3.9 [facility] Serum or plasma alanine terry otransferase measurement without P-5'-P (enzymatic activiOrdered By: Taylor Tijerina on 01-12-2022 ALT No additional P-5'-P [Catalytic activity/Vol] 25 U/L 10-60 [facility] Serum or plasma albumin/glob ulin mass ratioOrdered By: Taylor Tijerina on 01-12-2022 Albumin/Globulin [Mass ratio] 0.9 {ratio} 0.7-1.7 [facility] Serum or plasma alkaline ariella sphatase measurement (enzymatic activity/volume)Ordered By: Taylor Tijerina on 01-12-2022 ALP [Catalytic activity/Vol] 52 U/L 32-92 [facility] Serum or plasma alpha 1 glob ulin measurement by electrophoresis (mass/volume)Ordered By: Taylor Tijerina on 01-12-2022 Alpha 1 globulin Elph [Mass/Vol] 0.3 g/dL 0.0-0.4 [facility] Serum or plasma alpha 2 glob ulin measurement by electrophoresis (mass/volume)Ordered By: Taylor Tijerina on 01-12-2022 Alpha 2 globulin Elph [Mass/Vol] 0.8 g/dL 0.4-1.0 [facility] Serum or plasma anion gap de terminationOrdered By: Taylor Tijerina on 01-12-2022 Anion gap [Moles/Vol] 16.3 mmol/L 6.0-15.0 [facility] Serum or plasma aspartate am inotransferase measurement (enzymatic activity/volume)Ordered By: Taylor Tijerina on 01-12-2022 AST [Catalytic activity/Vol] 42 U/L 10-42 [facility] Serum or plasma beta globuli n measurement by electrophoresis (mass/volume)Ordered By: Taylor Tijerina on 01-12-2022 Beta globulin Elph [Mass/Vol] 1.1 g/dL 0.7-1.3 [facility] Serum or plasma calcium jake urement (mass/volume)Ordered By: Taylor Tijerina on 01-12-2022 Calcium [Mass/Vol] 8.8 mg/dL 8.2-10.2 [facility] Serum or plasma chloride jie surement (moles/volume)Ordered By: Taylor Tijerina on 01-12-2022 Chloride [Moles/Vol] 84 mmol/L 95-114 [facility] Serum or plasma erythropoiet in (EPO) measurement (units/volume)Ordered By: Taylor Tijerina on 01-12-2022 Erythropoietin (EPO) Qn 745.9 mIU/mL 2.6-18.5 [facility] Comment on above: [employer] DxI 800 Immunoassay System Values obtained with different assay methods or kits cannot be used interchangeably. Results cannot be interpreted as absolute evidence of the presence or absence of malignant disease. Performed at: [id number] [place], [place] [id number] Learning And Development Specialist: Carlos Mcintyre PhD, Phone: [phone] [employer] DxI 800 Immunoassay SystemValues obtained with different assay methods or kits cannotbe used interchangeably. Results cannot be interpreted asabsolute evidence of the presence or absence of malignantdisease.Performed at: [facility] [id number] [place], [place] [id number] Director: Carlos Mcintyre PhD, Phone: [phone] Serum or plasma gamma globul in measurement by electrophoresis (mass/volume)Ordered By: Taylor Tijerina on 01-12-2022 Gamma globulin Elph [Mass/Vol] 1.1 g/dL 0.4-1.8 [facility] Serum or plasma glucose jake urement (mass/volume)Ordered By: Taylor Tijerina on 01-12-2022 Glucose [Mass/Vol] 106 mg/dL 70-100 [facility] Comment on above: ADA recommended refe [...] on 01-12-2022 Potassium [Moles/Vol] 4.0 mmol/L 3.5-5.1 [facility] Serum or plasma sodium measu rement (moles/volume)Ordered By: Taylor Tijerina on 01-12-2022 Sodium [Moles/Vol] 125 mmol/L 136-146 [facility] Serum or plasma total biliru bin measurement (mass/volume)Ordered By: Taylor Tijerina on 01-12-2022 Bilirubin [Mass/Vol] 1.0 mg/dL 0.3-1.2 [facility] Serum or plasma total carbon dioxide measurement (moles/volume)Ordered By: Taylor Lilliana on 01-12-2022 CO2 [Moles/Vol] 28.7 mmol/L 22.0-30.0 [facility] Serum or plasma urea nitroge n measurement (mass/volume)Ordered By: Taylor Chengpranay on 01-12-2022 Urea nitrogen [Mass/Vol] 9 mg/dL 9 [facility] BNPon 11-24-2021 Natriuretic peptide B (Bld) [Mass/Vol] 591.0 pg/mL Normal <=900.0 [facility] Comment on above: Performed By: #### C TIFFANY, BNP #### [facility] [address] [place] [address] Dr. Good Montiel CBC AUTO DIFFon 11-24-2021 BASO # 0.1 103/ul Normal 0.0-0.1 [facility] Comment on above: Performed By: #### C TIFFANY CMADM #### [facility] [address] [place] [address] Dr. Good Montiel Basophils/100 WBC (Bld) 0.7 % Normal 0.2-2.0 [facility] Comment on above: Performed By: #### C TIFFANY CMADM #### [facility] [address] [place] [address] Dr. Good Montiel EO # 0.2 103/ul Normal 0.0-0.7 [facility] Comment on above: Performed By: #### C TIFFANY CMADM #### [facility] [address] [place] [address] Dr. Good Montiel Eosinophils/100 WBC (Bld) 2.4 % Normal 0.9-7.0 [facility] Comment on above: Performed By: #### C TIFFANY CMADM #### [facility] [address] [place] [address] Dr. Good Montiel Erythrocyte distribution width (RBC) [Ratio] 19.1 % Critically high 11.0-15.0 [facility] Comment on above: Performed By: #### C TIFFANY CMADM #### [facility] [address] [place], [place] [id number] Dr. Good Montiel Hematocrit (Bld) [Volume fraction] 25.5 % Critically low 36.0-48.0 [facility] Comment on above: Performed By: #### C TIFFANY, CMADM #### [facility] [address] [place] [address] Dr. Good Montiel Hemoglobin (Bld) [Mass/Vol] 7.4 g/dL Critically low 12.0-16.0 [facility] Comment on above: Performed By: #### C MP, CMADM #### [facility] [address] [place] [address] Dr. Good Montiel IG # 0.05 10e3/ul Critically high 0.00-0.03 [facility] Comment on above: Performed By: #### C TIFFANY, CMADM #### [facility] [address] [place] [address] Dr. Good Montiel IG % 0.6 % Critically high 0.0-0.5 [facility] Comment on above: Performed By: #### C TIFFANY, CMADM #### [facility] [address] [place] [address] Dr. Good Montiel LYMPH # 1.7 103/ul Normal 1.2-3.8 [facility] Comment on above: Performed By: #### C TIFFANY, CMADM #### [facility] [address] [place] [address] Dr. Good Montiel Lymphocytes/100 WBC (Bld) 20.6 % Normal 20.5-60.0 [facility] Comment on above: Performed By: #### C TIFFANY, CMADM #### [facility] [address] [place] [address] Dr. Good Montiel MANUAL DIFF REQ NO Normal [facility] Comment on above: Performed By: #### C TIFFANY, CMADM #### [facility] [address] [place] [address] Dr. Good Montiel MCH (RBC) [Entitic mass] 18.9 pg Critically low 26.7-34.0 [facility] Comment on above: Performed By: #### C TIFFANY, CMADM #### [facility] [address] [address] [address] Good Montiel MCHC (RBC) [Mass/Vol] 29.0 g/dL Critically low 29.9-35.2 [facility] Comment on above: Performed By: #### C MP, CMADM #### [facility] [address] [address] [address] Good Montiel MCV (RBC) [Entitic vol] 65.2 fL Critically low 81.0-99. 0 [facility] Comment on above: Performed By: #### C MP, CMADM #### [facility] [address] [address] [address] Good Montiel MONO # 0.8 103/ul Normal 0.3-0.8 [facility] Comment on above: Performed By: #### C MP, CMADM #### [facility] [address] [address] [address] Good Montiel Monocytes/100 WBC (Bld) 9.4 % Normal 1.7-12.0 [facility] Comment on above: Performed By: #### C MP, CMADM #### [facility] [address] [address] [address] Good Montiel NEUT # 5.5 103/ul Normal 1.4-6.5 [facility] Comment on above: Performed By: #### C MP, CMADM #### [facility] [address] [address] [address] Good Montiel Neutrophils/100 WBC (Bld) 66.3 % Normal 43.0-75.0 [facility] Comment on above: Performed By: #### C MP, CMADM #### [facility] [address] [address] [address] Good Montiel Platelet mean volume (Bld) [Entitic vol] 9.1 fL Critically low 9.5-13.5 [facility] Comment on above: Performed By: #### C MP, CMADM #### [facility] [address] [address] [address] Good Montiel PLT 431 103/ul Normal 150-450 [facility] Comment on above: Performed By: #### C MP, CMADM #### [facility] [address] [address] [address] Good Montiel RBC 3.91 106/ul Critically low 4.20-5.40 [facility] Comment on above: Performed By: #### C MP, CMADM #### [facility] [address] [address] [address] Good Montiel WBC 8.3 103/ul Normal 4.0-11.0 [facility] Comment on above: Performed By: #### C TIFFANY, CMADM #### [facility] [address] [address] [address] Good Montiel Covid-19 PCR ([facility])on 11-13 SARS-CoV-2 (COVID-19) RNA FELECIA+probe Ql (Unsp spec) Not detected Normal NOT DETECTED [facility] Comment on above: Result Comment: When [...] for this test is supported by the [place] of Health and Human Service's declaration that [...] used). Performed By: #### M MA2 #### [facility] [address] [address] [address] Good Montiel PROF 14(COMP METB)on 022 Albumin [Mass/Vol] 3.1 g/dL Critically low 3.4-5.0 [facility] Comment on above: Performed By: #### C TIFFANY, BNP #### [facility] [address] [place] [address] Dr. Good Montiel Albumin/Globulin [Mass ratio] 0.9 {ratio} Normal [facility] Comment on above: Performed By: #### C MP, BNP #### [facility] [address] [address] [address] Good Montiel ALP [Catalytic activity/Vol] 60 U/L Normal 46-116 [facility] Comment on above: Performed By: #### C MP, BNP #### [facility] [address] [address] [address] Good Montiel ALT [Catalytic activity/Vol] 30 U/L Normal 14-59 [facility] Comment on above: Performed By: #### C MP, BNP #### [facility] [address] [place] [address] Dr. Good Montiel Anion gap [Moles/Vol] 10.1 mmol/L [facility] Comment on above: Performed By: #### C MP, BNP #### [facility] [address] [place] [address] Dr. Good Montiel AST [Catalytic activity/Vol] 32 U/L Normal 15-37 [facility] Comment on above: Performed By: #### C MP, BNP #### [facility] [address] [place] [address] Dr. Good Montiel Bilirubin [Mass/Vol] 0.7 mg/dL Normal 0.2-1.0 [facility] Comment on above: Performed By: #### C MP, BNP #### [facility] [address] [address] [address] Good Montiel Calcium [Mass/Vol] 8.7 mg/dL Normal 8.5-10.1 [facility] Comment on above: Performed By: #### C MP, BNP #### [facility] [address] [place] [address] Dr. Good Montiel Chloride [Moles/Vol] 93 mmol/L Critically low 98-107 [facility] Comment on above: Performed By: #### C MP, BNP #### [facility] [address] [place] [address] Dr. Good Montiel CO2 [Moles/Vol] 27.5 mmol/L Normal 21.0-32.0 [facility] Comment on above: Performed By: #### C MP, BNP #### [facility] [address] [address] [address] Good Montiel Creatinine [Mass/Vol] 0.80 mg/dL Normal 0.55-1.02 [facility] Comment on above: Performed By: #### C MP, BNP #### [facility] [address] [place] [address] Dr. Good Montiel EGFR-AF INDONESIAN >60 Normal >=60 [facility] Comment on above: Performed By: #### C MP, BNP #### [facility] [address] [place] [address] Dr. Good Montiel EGFR-NON AF INDONESIAN >60 Normal >=60 [facility] Comment on above: Performed By: #### C MP, BNP #### [facility] [address] [place] [address] Dr. Good Montiel Globulin (S) [Mass/Vol] 3.5 g/dL Normal [facility] Comment on above: Performed By: #### C MP, BNP #### [facility] [address] [place] [address] Dr. Good Montiel Glucose [Mass/Vol] 146 mg/dL Critically high 74-106 [facility] Comment on above: Performed By: #### C MP, BNP #### [facility] [address] [place] [address] Dr. Good Montiel Potassium [Moles/Vol] 3.6 mmol/L Normal 3.5-5.1 [facility] Comment on above: Performed By: #### C MP, BNP #### [facility] [address] [place] [address] Dr. Good Montiel Protein [Mass/Vol] 6.6 g/dL Normal 6.4-8.2 [facility] Comment on above: Performed By: #### C MP, BNP #### [facility] [address] [place], [place] [address] Dr. Good Montiel Sodium [Moles/Vol] 127 mmol/L Critically low 136-145 Th e [facility] Comment on above: Performed By: #### C MP, BNP #### [facility] [address] [place], [place] [address] Dr. Good Montiel Urea nitrogen [Mass/Vol] 19.0 mg/dL Critically high 7.0-18.0 [facility] Comment on above: Performed By: #### C MP, BNP #### [facility] [address] [place], [place] [address] Dr. Good Montiel Urea nitrogen/Creatinine [Mass ratio] 23.8 mg/mg Normal [facility] Comment on above: Performed By: #### C MP, BNP #### [facility] [address] [place], [place] [address] Dr. Good Montiel XR CHEST 1 Von [...] by: KETAN ALVAREZ Date: 2021-11-24 00:21 Normal [facility] CT LUNG CANCER SCREENINGon 0 11-10-2021 [...] ARIAN VARGAS Date: 2021-11-10 10:55 Normal [facility] MAMM SCREEN 3D [place] CADon 11-10-2021 MG MAMM SCREEN 3D [place] CAD Patient: NUVIA MARTIN Exam Date: 11/10/2021 : 1945 Gender:F Ordering : DR LATONYA JOSEPH PA Admission #: [id number] Family : Order #: [id number] CLICK HERE TO VIEW EXAM RADIOLOGY REPORT [...] breast cancer at age 62. LOCATION: The [facility] BREAST COMPOSITION: Scattered areas fibroglandular density. [...] Vargas MD on 11/12/2021 at 08:03 Normal [facility] XR DEXA BONE DENSITYon 11-10 XR [...] by: ARIAN VARGAS Date: 2021-11-10 17:06 Normal [facility] Comprehensive Metabolic Pane bing 10-01-2021 Albumin [Mass/Vol] 3.9 g/dL Normal 3.6-5.1 [facility] Comment on above: Performed By: #### C MP #### [facility] [address] [place], [place] [id number] Albumin/Globulin [Mass ratio] 1.4 {ratio} Normal 1.0-2.5 [facility] Comment on above: Performed By: #### C MP #### [facility] [address] [place], [place] [id number] ALP [Catalytic activity/Vol] 51 U/L Normal 35-119 [facility] Comment on above: Performed By: #### C MP #### [facility] [address] [place], [place] [id number] ALT [Catalytic activity/Vol] 15 U/L Normal 6-33 [facility] Comment on above: Result Comment: 04/15 Female reference range changed. Performed By: #### C MP #### [facility] [address] [place], [place] [id number] Anion gap [Moles/Vol] 18 mmol/L Normal 12-20 [facility] Comment on above: Result Comment: Effe ctive 05/21/2019 reference range changed. Performed By: #### C MP #### [facility] [address] [place], [place] [id number] AST [Catalytic activity/Vol] 20 U/L Normal 9-34 [facility] Comment on above: Performed By: #### C MP #### [facility] [address] [place], [place] [id number] BUN/CREA 18 Ratio Normal 6-22 [facility] Comment on above: Performed By: #### C MP #### [facility] [address] [place], [place] [id number] Calcium [Mass/Vol] 9.8 mg/dL Normal 8.6-10.2 [facility] Comment on above: Performed By: #### C MP #### [facility] [address] [place], [place] [id number] Chloride [Moles/Vol] 88 mmol/L Low 98-107 [facility] Comment on above: Performed By: #### C MP #### [facility] [address] [place], [place] [id number] CO2 [Moles/Vol] 23 mmol/L Normal 20-31 [facility] Comment on above: Performed By: #### C MP #### [facility] [address] [place], [place] [id number] Creatinine [Mass/Vol] 0.9 mg/dL Normal 0.6-1.4 [facility] Comment on above: Performed By: #### C MP #### [facility] [address] [place], [place] [id number] eGFRAA 77 mL/min/1.73m2 Normal >60 [facility] Comment on above: Performed By: #### C MP #### [facility] [address] [place], [place] [id number] eGFRNAA 64 mL/min/1.73m2 Normal >60 [facility] Comment on above: Performed By: #### C MP #### [facility] [address] [place], [place] [id number] Globulin (S) [Mass/Vol] 2.7 g/dL Normal 1.9-3.7 [facility] Comment on above: Performed By: #### C MP #### [facility] [address] [place], [place] [id number] Glucose [Mass/Vol] 151 mg/dL High 65-99 [facility] Comment on above: Result Comment: For FASTING Glucose --- ADA reference ranges: Normal 65-99 mg/dl Prediabetes 100-125 Diabetes >/= 126 Performed By: #### C MP #### [facility] [address] [place], [place] [id number] Potassium [Moles/Vol] 4.5 mmol/L Normal 3.5-5.5 [facility] Comment on above: Performed By: #### C MP #### [facility] [address] [place], [place] [id number] Protein [Mass/Vol] 6.6 g/dL Normal 6.1-8.1 [facility] Comment on above: Performed By: #### C MP #### [facility] [address] [place], [place] [id number] Sodium [Moles/Vol] 125 mmol/L Low 135-146 [facility] And Chief Operating Officer Comment on above: Performed By: #### C MP #### [facility] [address] [place], [place] [id number] TBIL <0.3 Normal [facility] Comment on above: Performed By: #### C MP #### [facility] [address] [place], [place] [id number] Urea nitrogen [Mass/Vol] 16 mg/dL Normal 7-25 [facility] Comment on above: Performed By: #### C MP #### [facility] [address] [place], [place] [id number] VITAMIN B6on 08-20-2021 Vitamin B6 50.1 ug/L Critically high 2.0-32.8 [facility] Comment on above: Result Comment: Ef fective August 17, 2021 Vitamin B6 reference interval will be changing to: 3.4 - 65.2 ug/L Deficiency: < 3.4 Marginal: 3.4 - 5.1 Adequate: > 5.1 Performed By: #### V ITAB6 ####[facility] [address] [place], [place] [address]Dr. Good Montiel METHYLMALONIC ACID (MMA)on 0 08-18-2021 Methylmalonic Acid, Serum 327 nmol/L Normal 0-378 [facility] Comment on above: Performed By: #### M MA2 #### [facility] [address] [place] [address] [address] Good Montiel IMMUNOFIX ELEC, PROTEIN ELEC URINEon 08-14-2021 Albumin, U 55.3 % Normal [facility] Comment on above: Performed By: #### C TIFFANY, CMADM #### [facility] [address] [place] [address] [address] Good Montiel Hynte-2-Cirwymeo, U 3.9 % Normal [facility] Comment on above: Performed By: #### C TIFFANY, CMADM #### [facility] [address] [place] [address] [address] Good Montiel Vvbkm-7-Rkhmgqtd, U 6.7 % Normal [facility] Comment on above: Performed By: #### C TIFFANY, CMADM #### [facility] [address] [place] [address] [address] Good Montiel Beta Globulin, U 12.9 % Normal [facility] Comment on above: Performed By: #### C TIFFANY, CMADM #### [facility] [address] [place] [address] [address] Good Montiel Gamma Globulin, U 21.1 % Normal [facility] Comment on above: Performed By: #### C TIFFANY, CMADM #### [facility] [address] [place] [address] [address] Good Montiel Immunofixation Result, Urine Comment: Normal [facility] Comment on above: Result Comment: Pres ence of monoclonal protein is unclear at this time. Suggest repeat in 3 to 6 months if clinically indicated. Performed By: #### C TIFFANY, CMADM #### [facility] [address] [place] [address] [address] Good Montiel M-Brooks, % Not Observed Normal Not Observed [facility] Comment on above: Performed By: #### C MP, CMADM #### [facility] [address] [place] [address] Dr. Good Montiel Note: Comment Normal [facility] Comment on above: Result Comment: Prot ein electrophoresis scan will follow via computer, mail, or bakery helper delivery. Performed By: #### C SERAFIN ALLEN #### [facility] [address] [place] [address] Dr. Good Montiel PDF . Normal [facility] Comment on above: Performed By: #### C SERAFIN ALLEN #### [facility] [address] [place] [address] Dr. Good Montiel Protein (U) [Mass/Vol] 12.2 mg/dL Normal Not Estab. Th [facility] Comment on above: Performed By: #### C SERAFIN ALLEN #### [facility] [address] [place] [address] Dr. Good Montiel WEST NILE VIRUS AB (IGG AND IGM)on 08-14-2021 West Nile Virus, IgG Negative Normal Negative [facility] Comment on above: Result Comment: No d etectable West Nile Virus IgG Antibody. If a recent infection is suspected, another specimen should be submitted for testing within 7-14 days. Performed By: #### C SERAFIN ALLEN #### [facility] [address] [place] [address] Dr. Good Montiel West Nile Virus, IgM Negative Normal Negative [facility] Comment on above: Result Comment: No d etectable West Nile Virus IgM Antibody. If a recent infection is suspected, another specimen should be submitted for testing within 7-14 days. Performed By: #### C SERAFIN ALLEN #### [facility] [address] [place] [address] Dr. Good Montiel JAY EIA W/REFLEX 5 BIOMARKER Son 08-13-2021 JAY Direct Negative Normal Negative [facility] Comment on above: Performed By: #### A NARF ####[facility] [address] [place] [address]Dr. Good Montiel C-REACTIVE PROTEINS (HS)on 0 08-13-2021 C-Reactive Protein, Cardiac 0.55 mg/L Normal 0.00-3.00 [facility] Comment on above: Result Comment: Rela tive Risk for Future Cardiovascular Event Low <1.00 Average 1.00 - 3.00 High >3.00 Performed By: #### C [facility] ####[facility] [address] [place] [address]Dr. Good Montiel HOMOCYSTEINEon 08-13-2021 Homocyst(e)ine, Plasma 15.3 umol/L Normal 0.0-19.2 [facility] Comment on above: Performed By: #### H OMCY #### [facility] [address] [place] [address] [address] Good Montiel IMMUNOFIXATION ELEC, PROTEIN ELECon 08-13-2021 Albumin [Mass/Vol] 3.7 g/dL Normal 2.9-4.4 [facility] Comment on above: Performed By: #### M MA2 #### [facility] [address] [place] [address] [address] Good Montiel Albumin/Globulin [Mass ratio] 1.1 {ratio} Normal 0.7-1.7 [facility] Comment on above: Performed By: #### Hakeem MA2 #### [facility] [address] [place] [address] [address] Good Montiel Zwbmu-1-Sblpqvyp 0.2 g/dL Normal 0.0-0.4 [facility] Comment on above: Performed By: #### Hakeem MA2 #### [facility] [address] [place] [address] [address] Good Montiel Jfoec-7-Gbutiljb 0.9 g/dL Normal 0.4-1.0 [facility] Comment on above: Performed By: #### Hakeem MA2 #### [facility] [address] [place] [address] [address] Good Montiel Beta Globulin 1.2 g/dL Normal 0.7-1.3 [facility] Comment on above: Performed By: #### M MA2 #### [facility] [address] [place] [address] [address] Good Montiel Gamma Globulin 1.2 g/dL Normal 0.4-1.8 [facility] Comment on above: Performed By: #### M MA2 #### [facility] [address] [place] [address] [address] Good Montiel Globulin (S) [Mass/Vol] 3.4 g/dL Normal 2.2-3.9 [facility] Comment on above: Performed By: #### M MA2 #### [facility] [address] [place] [address] [address] Good Montiel Immunofixation Result, Serum Comment: Normal [facility] Comment on above: Result Comment: Pres ence of monoclonal protein is unclear at this time. Suggest repeat in 3 to 6 months if clinically indicated. Performed By: #### M MA2 #### [facility] [address] [place] [address] [address] Good Montiel Immunoglobulin A, Qn, Serum 269 mg/dL Normal 64-422 [facility] Comment on above: Performed By: #### Hakeem MA2 #### [facility] [address] [place] [address] [address] Good Montiel Immunoglobulin G, Qn, Serum 1056 mg/dL Normal 586-1602 [facility] Comment on above: Performed By: #### Hakeem MA2 #### [facility] [address] [place] [address] [address] Good Montiel Immunoglobulin M, Qn, Serum 201 mg/dL Normal 26-217 [facility] Comment on above: Performed By: #### Hakeem MA2 #### [facility] [address] [place] [address] [address] Good Montiel M-Brooks Comment: Normal Not Observed [facility] Comment on above: Result Comment: ASYM METRICAL GAMMA Performed By: #### M MA2 #### [facility] [address] [place] [address] [address] Good Montiel PDF . Normal [facility] Comment on above: Performed By: #### M MA2 #### [facility] [address] [place] [address] Dr. Good Montiel Please note: Comment Normal [facility] Comment on above: Result Comment: Prot ein electrophoresis scan will follow via computer, mail, or bakery helper delivery. Performed By: #### M MA2 #### [facility] [address] [place] [address] [address] Good Montiel Protein [Mass/Vol] 7.1 g/dL Normal 6.0-8.5 [facility] Comment on above: Performed By: #### M MA2 #### [facility] [address] [place] [address] [address] Good Montiel LYME DISEASE AB EIA W REFLEX on 08-13-2021 Lyme Total Antibody,EIA Negative Normal Negative [facility] Comment on above: Result Comment: Lyme Antibody Negative No laboratory evidence of infection with B. burgdorferi (Lyme disease). Negative results may occur in patients recently infected (greater than or equal to 14 days) with B. burgdorferi. If recent infection is suspected, repeat testing on a new sample collected in 7 to 14 days is recommended. Performed By: #### L YMA ####[facility] [address] [place] [address]Dr. Good Montiel RHEUMATOID FACTORon 08-14-19 22 RA Latex Turbid. 10.1 IU/mL Normal <14.0 [facility] Comment on above: Performed By: #### SERAFIN Portillo MP #### [facility] [address] [place] [address] [address] Good Montiel RPR QUANTon 08-13-2021 Rapid Plasma Reagin, Quant Non-Reactive Normal NonRea<1:1 [facility] Comment on above: Result Comment: Plea se Note: This test does not meet current guidelines for screening and diagnosis of syphilis. This test is intended for following treatment response in patients being treated for syphilis infection. To screen for syphilis infection, a reflex cascade that includes both RPR and a treponema-specific assay should be utilized, such as Treponema pallidum (Syphilis) Screening [place] (017550) or Rapid Plasma Reagin (RPR) Test With Reflex to Quantitative RPR and Confirmatory Treponema pallidum Antibodies (837818). Performed By: #### C SERAFIN ALLEN #### [facility] [address] [place] [address] [address] Good Montiel FREE T4on 08-12-2021 Free T4 [Mass/Vol] 1.03 ng/dL Normal 0.78-2.19 [facility] Comment on above: Performed By: #### B 12FOL, FT4 ####[facility] [address] [place] [address]Dr. Good Montiel SED RATE WESTERGRENon 2021 SED RATE 17 mm/hr Normal <=30 [facility] Comment on above: Performed By: #### C MP, CMADM #### [facility] [address] [place] [address] [address] Good Montiel TSHon 08-12-2021 TSH 3.737 uIU/mL Normal 0.470-4.680 [facility] Comment on above: Performed By: #### T SH ####[facility] [address] [place], [place] [address]Dr. Good Montiel TSH RANGE SEE BELOW Normal [facility] Comment on above: Result Comment: <0.3 4 UIU/ml HYPERTHYROID 0.34-5.60 UIU/ml EUTHYROID >5.60 UIU/ml HYPOTHYROID Performed By: #### T SH ####[facility] [address] [place], [place] [address]Dr. Good Montiel VIT B12 AND FOLATEon 022 Cobalamin (Vitamin B12) [Mass/Vol] 741.0 pg/mL Normal 239.0-931.0 [facility] Comment on above: Performed By: #### B 12FOL, FT4 ####[facility] [address] [place] [address]Dr. Good Montiel FOLATE >20.00 Normal >=2.76 [facility] Comment on above: Performed By: #### B 12FOL, FT4 ####[facility] [address] [place] [address]DrSmooth Montiel CBC AUTO DIFFon 06-10-2021 BASO # 0.1 103/ul Normal 0.0-0.1 [facility] Comment on above: Performed By: #### C BC ####[facility] [address] [place] [phone]. Good Montiel Basophils/100 WBC (Bld) 0.7 % Normal 0.2-2.0 [facility] Comment on above: Performed By: #### C BC ####[facility] [address] [place] [phone]. Good Montiel EO # 0.2 103/ul Normal 0.0-0.7 [facility] Comment on above: Performed By: #### C BC ####[facility] [address] [place] [address]Dr. Good Montiel Eosinophils/100 WBC (Bld) 1.6 % Normal 0.9-7.0 [facility] Comment on above: Performed By: #### C BC ####[facility] [address] [place], [place] [address]Dr. Good Montiel Erythrocyte distribution width (RBC) [Ratio] 18.7 % Critically high 11.0-15.0 [facility] Comment on above: Performed By: #### C BC ####[facility] [address] [place] [phone]. Good Montiel Hematocrit (Bld) [Volume fraction] 29.6 % Critically low 36.0-48.0 [facility] Comment on above: Performed By: #### C BC ####[facility] [address] [place] [phone]. Good Montiel Hemoglobin (Bld) [Mass/Vol] 9.1 g/dL Critically low 12.0-16.0 [facility] Comment on above: Performed By: #### C BC ####[facility] [address] [place] [phone]. Good Montiel IG # 0.06 10e3/ul Critically high 0.00-0.03 [facility] Comment on above: Performed By: #### C BC ####[facility] [address] [place] [phone]. Good Montiel IG % 0.6 % Critically high 0.0-0.5 [facility] Comment on above: Performed By: #### C BC ####[facility] [address] [place] [phone]. Good Montiel LYMPH # 2.0 103/ul Normal 1.2-3.8 [facility] Comment on above: Performed By: #### C BC ####[facility] [address] [place], [place] [address]Ks. Good Montiel Lymphocytes/100 WBC (Bld) 18.5 % Critically low 20.5-60.0 [facility] Comment on above: Performed By: #### C BC ####[facility] [address] [place] [phone]. Rejoo Montiel MANUAL DIFF REQ NO Normal [facility] Comment on above: Performed By: #### C BC ####[facility] [address] [place] [phone]. Good Dinesh MCH (RBC) [Entitic mass] 21.8 pg Critically low 26.7-34.0 [facility] Comment on above: Performed By: #### C BC ####[facility] [address] [place] [phone]. Good Montiel MCHC (RBC) [Mass/Vol] 30.7 g/dL Normal 29.9-35.2 [facility] Comment on above: Performed By: #### C BC ####[facility] [address] [place] [phone]. Good Dinesh MCV (RBC) [Entitic vol] 71.0 fL Critically low 81.0-99. 0 [facility] Comment on above: Performed By: #### C BC ####[facility] [address] [place] [phone]. Good Dinesh MONO # 0.8 103/ul Normal 0.3-0.8 [facility] Comment on above: Performed By: #### C BC ####[facility] [address] [place] [phone]. Rejoo Montiel Monocytes/100 WBC (Bld) 7.0 % Normal 1.7-12.0 [facility] Comment on above: Performed By: #### C BC ####[facility] [address] [place], [place] [address]Rc. Good Montiel NEUT # 7.6 103/ul Critically high 1.4-6.5 [facility] Comment on above: Performed By: #### C BC ####[facility] [address] [place], [place] [address]Hg. Good Montiel Neutrophils/100 WBC (Bld) 71.6 % Normal 43.0-75.0 [facility] Comment on above: Performed By: #### C BC ####[facility] [address] [place] [phone]. Good Montiel Platelet mean volume (Bld) [Entitic vol] 8.4 fL Critically low 9.5-13.5 [facility] Comment on above: Performed By: #### C BC ####[facility] [address] [place] [phone]. Rejoo Montiel PLT 442 103/ul Normal 150-450 [facility] Comment on above: Performed By: #### C BC ####[facility] [address] [place] [phone]. Good Montiel RBC 4.17 106/ul Critically low 4.20-5.40 [facility] Comment on above: Performed By: #### C BC ####[facility] [address] [place] [phone]. Good Montiel WBC 10.7 103/ul Normal 4.0-11.0 [facility] Comment on above: Performed By: #### C BC ####[facility] [address] [place] [phone]. Good Montiel CRPon 06-10-2021 CRP [Mass/Vol] mg/L Normal <=1.0 [facility] Comment on above: Performed By: #### M MA2 #### [facility] [address] [place], [place] [address] Dr. Good Montiel ER URINE PROFILEon 2 Bilirubin Ql (U) Negative Normal NEGATIVE [facility] Comment on above: Performed By: #### E RUR ####[facility] [address] [place], [place] [address]Dr. Good Montiel Clarity (U) CLEAR Normal CLEAR [facility] Comment on above: Performed By: #### E RUR ####[facility] [address] [place], [place] [address]Dr. Good Montiel Color (U) YELLOW Normal YELLOW [facility] Comment on above: Performed By: #### E RUR ####[facility] [address] [place], [place] [address]Dr. Good Montiel ERUAHD A micrscopic examination will be performed if indicated. Normal [facility] Comment on above: Performed By: #### E RUR ####[facility] [address] [place], [place] [address]Dr. Rejoo Montiel Glucose Ql (U) Negative Normal NEGATIVE [facility] Comment on above: Performed By: #### E RUR ####[facility] [address] [place], [place] [address]Dr. Good Montiel Hemoglobin Ql (U) Negative Normal NEGATIVE [facility] Comment on above: Performed By: #### E RUR ####[facility] [address] [place], [place] [address]Dr. Good Montiel Ketones Ql (U) Negative Normal NEGATIVE [facility] Comment on above: Performed By: #### E RUR ####[facility] [address] [place], [place] [address]Dr. Good Montiel LEUKOCYTES Negative Normal NEGATIVE [facility] Comment on above: Performed By: #### E RUR ####[facility] [address] [place], [place] [address]Dr. Good Montiel Nitrite Ql (U) Negative Normal NEGATIVE [facility] Comment on above: Performed By: #### E RUR ####[facility] [address] [place], [place] [address]Dr. Good Montiel pH (U) 6.5 [pH] Normal 5-9 [facility] Comment on above: Performed By: #### E RUR ####[facility] [address] [address]Dr. Good Montiel SPEC GRAVITY 1.010 Normal 1.005-<=1.02 5 [facility] Comment on above: Performed By: #### E RUR ####[facility] [address] [address]Dr. Good Montiel UA PROTEIN Negative Normal NEGATIVE/ TRACE [facility] Comment on above: Performed By: #### E RUR ####[facility] [address] [address]Dr. Good Montiel UR MICRO IND NOT INDICATED Normal [facility] Comment on above: Performed By: #### E RUR ####[facility] [address] [address]DrSmooth Montiel Urobilinogen Qn (U) 0.2 {Momo'U}/dL Normal 0.2 - 1. 0 [facility] Comment on above: Performed By: #### E RUR ####[facility] [address] [address]DrSmooth Montiel LACTATE/LACTIC ACIDon 2021 Lactate [Moles/Vol] 1.9 mmol/L Normal 0.7-2.0 [facility] Comment on above: Performed By: #### L ACT ####[facility] [address] [place], [place] [address]DrSmooth Montiel PROF 14(COMP METB)on 022 Albumin [Mass/Vol] 3.0 g/dL Critically low 3.5-5.0 [facility] Comment on above: Performed By: #### M ANA LAURA2 #### [facility] [address] [place] [address] Dr. Good Montiel Albumin/Globulin [Mass ratio] 0.9 {ratio} Normal [facility] Comment on above: Performed By: #### M ANA LAURA2 #### [facility] [address] [address] [address] Good Montiel ALP [Catalytic activity/Vol] 36 U/L Critically low 38-126 [facility] Comment on above: Performed By: #### M ANA LAURA2 #### [facility] [address] [address] [address] Good Montiel ALT [Catalytic activity/Vol] 26 U/L Normal 9-52 [facility] Comment on above: Performed By: #### M MA2 #### [facility] [address] [address] [address] Good Montiel Anion gap [Moles/Vol] 12.2 mmol/L Normal Th [facility] Comment on above: Performed By: #### M MA2 #### [facility] [address] [address] [address] Good Montiel AST [Catalytic activity/Vol] 23 U/L Normal 14-36 [facility] Comment on above: Performed By: #### M MA2 #### [facility] [address] [address] [address] Good Montiel Bilirubin [Mass/Vol] 0.4 mg/dL Normal 0.2-1.3 [facility] Comment on above: Performed By: #### M MA2 #### [facility] [address] [address] [address] Good Montiel Calcium [Mass/Vol] 8.5 mg/dL Normal 8.4-10.2 [facility] Comment on above: Performed By: #### M MA2 #### [facility] [address] [address] [address] Good Montiel Chloride [Moles/Vol] 93 mmol/L Critically low 98-107 [facility] Comment on above: Performed By: #### M MA2 #### [facility] [address] [address] [address] Good Montiel CO2 [Moles/Vol] 27.6 mmol/L Normal 22.0-30.0 [facility] Comment on above: Performed By: #### M MA2 #### [facility] [address] [address] [address] Good Montiel Creatinine [Mass/Vol] 0.78 mg/dL Normal 0.52-1.04 [facility] Comment on above: Performed By: #### M MA2 #### [facility] [address] [address] [address] Good Montiel EGFR-AF INDONESIAN >60 Normal >=60 [facility] Comment on above: Performed By: #### M MA2 #### [facility] [address] [address] [address] Good Montiel EGFR-NON AF INDONESIAN >60 Normal >=60 [facility] Comment on above: Performed By: #### M MA2 #### [facility] [address] [address] [address] Good Montiel Globulin (S) [Mass/Vol] 3.2 g/dL Normal [facility] Comment on above: Performed By: #### M MA2 #### [facility] [address] [address] [address] Good Montiel Glucose [Mass/Vol] 111 mg/dL Critically high 74-106 [facility] Comment on above: Performed By: #### M MA2 #### [facility] [address] [address] [address] Good Montiel Potassium [Moles/Vol] 3.8 mmol/L Normal 3.4-5.0 [facility] Comment on above: Performed By: #### M MA2 #### [facility] [address] [address] [address] Good Montiel Protein [Mass/Vol] 6.2 g/dL Normal 6.1-8.2 [facility] Comment on above: Performed By: #### M MA2 #### [facility] [address] [address] [address] Good Montiel Sodium [Moles/Vol] 129 mmol/L Critically low 137-145 [facility] Comment on above: Performed By: #### M MA2 #### [facility] [address] [address] [address] Good Montiel Urea nitrogen [Mass/Vol] 17.0 mg/dL Normal 7.0-17.0 [facility] Comment on above: Performed By: #### M MA2 #### [facility] [address] [place] [address] Dr. Good Montiel Urea nitrogen/Creatinine [Mass ratio] 21.8 mg/mg Normal [facility] Comment on above: Performed By: #### Hakeem DU2 #### [facility] [address] [place] [address] Dr. Good Montiel TROPONIN, HIGH SENSITIVITYon 06-10-2021 HSTROP 9.8 pg/mL Normal 4.0-35.5 [facility] Comment on above: Result Comment: CUT- OFF POINTS HAVE BEEN ESTABLISHED BASED ON THE FOURTH UNIVERSAL DEFINITIONS OF MYOCARDIAL INFARCTION. THE UPPER REFERENCE LIMIT (URL) OF TROPONIN, DEFINED THE 99TH PERCENTILE OF cTnI DISTRIBUTION IN A REFERENCE POPULATION, HAS BEEN CONFIRMED THE DECISION THRESHOLD FOR MT DIAGNOSIS. Performed By: #### Hakeem DU2 #### [facility] [address] [place] [address] Dr. Good Montiel TSHon 06-10-2021 TSH 7.927 uIU/mL Critically high 0.470-4.680 [facility] Comment on above: Performed By: #### Hakeem DU2 #### [facility] [address] [place] [address] Dr. Good Montiel TSH RANGE SEE BELOW Normal [facility] Comment on above: Result Comment: <0.3 4 UIU/ml HYPERTHYROID 0.34-5.60 UIU/ml EUTHYROID >5.60 UIU/ml HYPOTHYROID Performed By: #### Hakeem DU2 #### [facility] [address] [place] [address] Dr. Good Montiel CBC AUTO DIFFon 06-06-2021 BASO # 0.1 103/ul Normal 0.0-0.1 [facility] Comment on above: Performed By: #### C TIFFANY CMADM #### [facility] [address] [place] [address] Dr. Good Montiel Basophils/100 WBC (Bld) 0.7 % Normal 0.2-2.0 [facility] Comment on above: Performed By: #### C TIFFANY, DOUGLASDM #### [facility] [address] [place] [address] Dr. Good Montiel EO # 0.2 103/ul Normal 0.0-0.7 [facility] Comment on above: Performed By: #### C TIFFANY, DOUGLASDM #### [facility] [address] [place] [address] Dr. Good Montiel Eosinophils/100 WBC (Bld) 2.5 % Normal 0.9-7.0 [facility] Comment on above: Performed By: #### C TIFFANY, DOUGLASDM #### [facility] [address] [place] [address] Dr. Good Montiel Erythrocyte distribution width (RBC) [Ratio] 18.5 % Critically high 11.0-15.0 [facility] Comment on above: Performed By: #### C TIFFANY, DOUGLASDM #### [facility] [address] [place] [address] Dr. Good Montiel Hematocrit (Bld) [Volume fraction] 30.1 % Critically low 36.0-48.0 [facility] Comment on above: Performed By: #### C DOUGLAS ALLENDM #### [facility] [address] [place] [address] Dr. Good Montiel Hemoglobin (Bld) [Mass/Vol] 9.3 g/dL Critically low 12.0-16.0 [facility] Comment on above: Performed By: #### C TIFFANY, DOUGLASDM #### [facility] [address] [place] [address] Dr. Good Montiel IG # 0.06 10e3/ul Critically high 0.00-0.03 [facility] Comment on above: Performed By: #### C TIFFANY, CMADM #### [facility] [address] [place] [address] Dr. Good Montiel IG % 0.7 % Critically high 0.0-0.5 [facility] Comment on above: Performed By: #### C TIFFANY, CMADM #### [facility] [address] [place] [address] Dr. Good Montiel LYMPH # 2.0 103/ul Normal 1.2-3.8 [facility] Comment on above: Performed By: #### C TIFFANY, CMADM #### [facility] [address] [place] [address] Dr. Good Montiel Lymphocytes/100 WBC (Bld) 23.0 % Normal 20.5-60.0 [facility] Comment on above: Performed By: #### C TIFFANY, CMADM #### [facility] [address] [place] [address] Dr. Good Montiel MANUAL DIFF REQ NO Normal [facility] Comment on above: Performed By: #### C MP, CMADM #### [facility] [address] [place] [address] Dr. Good Montiel MCH (RBC) [Entitic mass] 21.9 pg Critically low 26.7-34.0 [facility] Comment on above: Performed By: #### C TIFFANY, CMADM #### [facility] [address] [place] [address] Dr. Good Montiel MCHC (RBC) [Mass/Vol] 30.9 g/dL Normal 29.9-35.2 [facility] Comment on above: Performed By: #### C TIFFANY, CMADM #### [facility] [address] [place] [address] Dr. Good Montiel MCV (RBC) [Entitic vol] 70.8 fL Critically low 81.0-99. 0 [facility] Comment on above: Performed By: #### C TIFFANY, CMADM #### [facility] [address] [place] [address] Dr. Good Montiel MONO # 1.0 103/ul Critically high 0.3-0.8 [facility] Comment on above: Performed By: #### C MP, CMADM #### [facility] [address] [place] [address] Dr. Good Montiel Monocytes/100 WBC (Bld) 11.3 % Normal 1.7-12.0 [facility] Comment on above: Performed By: #### C MP, CMADM #### [facility] [address] [place] [address] Dr. Good Montiel NEUT # 5.2 103/ul Normal 1.4-6.5 [facility] Comment on above: Performed By: #### C MP, CMADM #### [facility] [address] [address] [address] Good Montiel Neutrophils/100 WBC (Bld) 61.8 % Normal 43.0-75.0 [facility] Comment on above: Performed By: #### C MP, CMADM #### [facility] [address] [address] [address] Good Montiel Platelet mean volume (Bld) [Entitic vol] 8.5 fL Critically low 9.5-13.5 [facility] Comment on above: Performed By: #### C MP, CMADM #### [facility] [address] [address] [address] Good Montiel PLT 455 103/ul Critically high 150-450 [facility] Comment on above: Performed By: #### C MP, CMADM #### [facility] [address] [address] [address] Good Montiel RBC 4.25 106/ul Normal 4.20-5.40 [facility] Comment on above: Performed By: #### C MP, CMADM #### [facility] [address] [address] [address] Good Montiel WBC 8.5 103/ul Normal 4.0-11.0 [facility] Comment on above: Performed By: #### C TIFFANY, CMADM #### [facility] [address] [address] [address] Good Montiel POINT OF CARE GLUCOSEon 05-17 Glucose [Mass/Vol] 164 mg/dL Critically high 74-106 [facility] Comment on above: Performed By: #### C MP, CMADM #### [facility] [address] [address] [address] Good Montiel PROF 14(COMP METB)on Albumin [Mass/Vol] 3.2 g/dL Critically low 3.5-5.0 [facility] Comment on above: Performed By: #### M MA2 #### [facility] [address] [place] [address] Dr. Good Montiel Albumin/Globulin [Mass ratio] 1.1 {ratio} Normal [facility] Comment on above: Performed By: #### M MA2 #### [facility] [address] [address] [address] Good Montiel ALP [Catalytic activity/Vol] 37 U/L Critically low 38-126 [facility] Comment on above: Performed By: #### Hakeem MA2 #### [facility] [address] [address] [address] Good Montiel ALT [Catalytic activity/Vol] 26 U/L Normal 9-52 [facility] Comment on above: Performed By: #### Hakeem DU2 #### [facility] [address] [address] [address] Good Montiel Anion gap [Moles/Vol] 11.5 mmol/L Normal [facility] Comment on above: Performed By: #### Hakeem DU2 #### [facility] [address] [address] [address] Good Montiel AST [Catalytic activity/Vol] 25 U/L Normal 14-36 [facility] Comment on above: Performed By: #### Hakeem DU2 #### [facility] [address] [address] [address] Good Montiel Bilirubin [Mass/Vol] 0.4 mg/dL Normal 0.2-1.3 [facility] Comment on above: Performed By: #### Hakeem DU2 #### [facility] [address] [address] [address] Good Montiel Calcium [Mass/Vol] 8.8 mg/dL Normal 8.4-10.2 [facility] Comment on above: Performed By: #### Hakeem DU2 #### [facility] [address] [address] [address] Good Montiel Chloride [Moles/Vol] 93 mmol/L Critically low 98-107 [facility] Comment on above: Performed By: #### Hakeem MA2 #### [facility] [address] [place] [address] Dr. Good Montiel CO2 [Moles/Vol] 28.2 mmol/L Normal 22.0-30.0 [facility] Comment on above: Performed By: #### M MA2 #### [facility] [address] [address] [address] Good Montiel Creatinine [Mass/Vol] 0.57 mg/dL Normal 0.52-1.04 [facility] Comment on above: Performed By: #### M MA2 #### [facility] [address] [address] [address] Good Montiel EGFR-AF INDONESIAN >60 Normal >=60 [facility] Comment on above: Performed By: #### M MA2 #### [facility] [address] [address] [address] Good Montiel EGFR-NON AF INDONESIAN >60 Normal >=60 [facility] Comment on above: Performed By: #### M MA2 #### [facility] [address] [address] [address] Good Montiel Globulin (S) [Mass/Vol] 3.0 g/dL Normal [facility] Comment on above: Performed By: #### M MA2 #### [facility] [address] [address] [address] Good Montiel Glucose [Mass/Vol] 106 mg/dL Normal 74-106 [facility] Comment on above: Performed By: #### M MA2 #### [facility] [address] [address] [address] Good Montiel Potassium [Moles/Vol] 3.7 mmol/L Normal 3.4-5.0 [facility] Comment on above: Performed By: #### M MA2 #### [facility] [address] [address] [address] Good Montiel Protein [Mass/Vol] 6.2 g/dL Normal 6.1-8.2 [facility] Comment on above: Performed By: #### M MA2 #### [facility] [address] [address] [address] Good Montiel Sodium [Moles/Vol] 129 mmol/L Critically low 137-145 [facility] Comment on above: Performed By: #### M MA2 #### [facility] [address] [address] [address] Good Montiel Urea nitrogen [Mass/Vol] 14.0 mg/dL Normal 7.0-17.0 [facility] Comment on above: Performed By: #### M MA2 #### [facility] [address] [address] [address] Good Montiel Urea nitrogen/Creatinine [Mass ratio] 24.6 mg/mg Normal [facility] Comment on above: Performed By: #### M MA2 #### [facility] [address] [address] [address] Good Montiel CARDIAC LOGAN ADMITon 022 CK [Catalytic activity/Vol] 55 U/L Normal 30-135 [facility] Comment on above: Performed By: #### C TIFFANY, DOUGLASDM #### [facility] [address] [place] [address] Dr. Good Montiel CK.MB [Mass/Vol] 2.09 ng/mL Normal <=2.37 [facility] Comment on above: Performed By: #### C TIFFANY, CMADM #### [facility] [address] [place] [address] Dr. Good Montiel HSTROP 10.2 pg/mL Normal 4.0-35.5 [facility] Comment on above: Result Comment: CUT- OFF POINTS HAVE BEEN ESTABLISHED BASED ON THE FOURTH UNIVERSAL DEFINITIONS OF MYOCARDIAL INFARCTION. THE UPPER REFERENCE LIMIT (URL) OF TROPONIN, DEFINED THE 99TH PERCENTILE OF cTnI DISTRIBUTION IN A REFERENCE POPULATION, HAS BEEN CONFIRMED THE DECISION THRESHOLD FOR MT DIAGNOSIS. Performed By: #### C TIFFANY, CMADM #### [facility] [address] [place] [address] Dr. Good Montiel CLIF 61.0 ng/mL Normal <=61.5 [facility] Comment on above: Performed By: #### C TIFFANY, CMADM #### [facility] [address] [place] [address] Dr. Good Montiel CBC AUTO DIFFon 06-05-2021 BASO # 0.1 103/ul Normal 0.0-0.1 [facility] Comment on above: Performed By: #### C BC ####[facility] [address] [place], [place] [address]Dr. Good Montiel Basophils/100 WBC (Bld) 0.8 % Normal 0.2-2.0 [facility] Comment on above: Performed By: #### C BC ####[facility] [address] [place], [place] [address]Dr. Good Montiel EO # 0.2 103/ul Normal 0.0-0.7 [facility] Comment on above: Performed By: #### C BC ####[facility] [address] [place], [place] [address]Dr. Good Montiel Eosinophils/100 WBC (Bld) 2.2 % Normal 0.9-7.0 [facility] Comment on above: Performed By: #### C BC ####[facility] [address] [place], [place] [address]Dr. Good Montiel Erythrocyte distribution width (RBC) [Ratio] 18.2 % Critically high 11.0-15.0 [facility] Comment on above: Performed By: #### C BC ####[facility] [address] [place], [place] [address]Dr. Good Montiel Hematocrit (Bld) [Volume fraction] 31.1 % Critically low 36.0-48.0 [facility] Comment on above: Performed By: #### C BC ####[facility] [address] [place], [place] [address]Dr. Good Montiel Hemoglobin (Bld) [Mass/Vol] 9.6 g/dL Critically low 12.0-16.0 [facility] Comment on above: Performed By: #### C BC ####[facility] [address] [place], [place] [address]Dr. Good Montiel IG # 0.07 10e3/ul Critically high 0.00-0.03 [facility] Comment on above: Performed By: #### C BC ####[facility] [address] [place], [place] [address]DrSmooth Montiel IG % 0.9 % Critically high 0.0-0.5 [facility] Comment on above: Performed By: #### C BC ####[facility] [address] [address]DrSmooth Montiel LYMPH # 1.3 103/ul Normal 1.2-3.8 [facility] Comment on above: Performed By: #### C BC ####[facility] [address] [place], [place] [address]DrSmooth Montiel Lymphocytes/100 WBC (Bld) 17.2 % Critically low 20.5-60.0 [facility] Comment on above: Performed By: #### C BC ####[facility] [address] [place], [place] [address]DrSmooth Montiel MANUAL DIFF REQ NO Normal [facility] Comment on above: Performed By: #### C BC ####[facility] [address] [place], [place] [address]DrSmooth Montiel MCH (RBC) [Entitic mass] 21.8 pg Critically low 26.7-34.0 [facility] Comment on above: Performed By: #### C BC ####[facility] [address] [place], [place] [address]DrSmooth Montiel MCHC (RBC) [Mass/Vol] 30.9 g/dL Normal 29.9-35.2 [facility] Comment on above: Performed By: #### C BC ####[facility] [address] [place], [place] [address]DrSmooth Montiel MCV (RBC) [Entitic vol] 70.5 fL Critically low 81.0-99. 0 [facility] Comment on above: Performed By: #### C BC ####[facility] [address] [place], [place] [address]DrSmooth Montiel MONO # 0.6 103/ul Normal 0.3-0.8 [facility] Comment on above: Performed By: #### C BC ####[facility] [address] [place], [place] [address]DrSmooth Montiel Monocytes/100 WBC (Bld) 8.3 % Normal 1.7-12.0 [facility] Comment on above: Performed By: #### C BC ####[facility] [address] [address]Dr. Good Montiel NEUT # 5.3 103/ul Normal 1.4-6.5 [facility] Comment on above: Performed By: #### C BC ####[facility] [address] [place], [place] [address]Dr. Good Montiel Neutrophils/100 WBC (Bld) 70.6 % Normal 43.0-75.0 [facility] Comment on above: Performed By: #### C BC ####[facility] [address] [place], [place] [address]Dr. Good Montiel Platelet mean volume (Bld) [Entitic vol] 8.3 fL Critically low 9.5-13.5 [facility] Comment on above: Performed By: #### C BC ####[facility] [address] [place], [place] [address]Dr. Good Montiel PLT 463 103/ul Critically high 150-450 [facility] Comment on above: Performed By: #### C BC ####[facility] [address] [place], [place] [address]Dr. Good Montiel RBC 4.41 106/ul Normal 4.20-5.40 [facility] Comment on above: Performed By: #### C BC ####[facility] [address] [place], [place] [address]Dr. Good Montiel WBC 7.6 103/ul Normal 4.0-11.0 [facility] Comment on above: Performed By: #### C BC ####[facility] [address] [place], [place] [address]Dr. Good [address]iel CT STROKE HEAD WOon 06-05-19 [...] relayed to Dr. Garcia. Electronically authenticated by: GIGNER BROOKS Date: 2021-06-05 10:30 Normal [facility] Covid-19 PCR (CVDTBH)on 05-17 SARS-CoV-2 (COVID-19) RNA FELECIA+probe Ql (Unsp spec) Not detected Normal NOT DETECTED [facility] Comment on above: Result Comment: When [...] for this test is supported by the [place] of [employer] and Human Service's declaration that [...] used). Performed By: #### C [facility] #### [facility] [address] [place] [address] Dr. Good Montiel ECHOCARDIO M/2D COMPLETEon 0 06-05-2021 ECHOCARDIO M/2D COMPLETE Patient: NUVIA MARTIN Exam Date: 06/05/2021 : 1945 Gender:F Ordering : DR. RHIANNON OLSON . Admission #: [id number] Family : DR WILY PRADO M.D. Order #: [id number] CLICK HERE TO VIEW EXAM ECHOCARDIOGRAM REPORT [...] Area(A4C): 18.50 cm2 Left Atrium Systolic Volume(A2C): 53985 mm3 Left Atrium Systolic Volume(A4C): 76319 mm3 Mitral Valve MV E to A [...] Ramírez M.D. on 06/08/2021 at 14:19 Normal [facility] GLYCOHEMOGLOBIN A1Con 2021 ADA RECOMMENDATION ADA THERAPEUTIC TARGET 6.0 - 7.0 ACTION SUGGESTED > 7.0 Normal [facility] Comment on above: Performed By: #### M MA2 #### [facility] [address] [place] [address] Dr. Good Montiel Glucose [Mass/Vol] 131 mg/dL Normal [facility] Comment on above: Performed By: #### M MA2 #### [facility] [address] [address] [address] Good Montiel HbA1c (Bld) [Mass fraction] 6.2 % Critically high <=6.0 [facility] Comment on above: Performed By: #### M MA2 #### [facility] [address] [address] [address] Good Montiel LIPID PROFILEon 06-05-2021 CHOL-HDL RATIO NORM SEE BELOW Normal [facility] Comment on above: Result Comment: 3.3 - 4.4 LOW RISK 4.4 - 7.1 AVERAGE RISK 7.1 - 11.0 MODERATE RISK >11.0 HIGH RISK Performed By: #### C TIFFANY, CMADM #### [facility] [address] [address] [address] Good Montiel Cholesterol [Mass/Vol] 157 mg/dL Normal <=200 [facility] Comment on above: Performed By: #### C MP, CMADM #### [facility] [address] [address] [address] Good Montiel Cholesterol in HDL [Mass/Vol] 44 mg/dL Normal [facility] Comment on above: Performed By: #### C TIFFANY, CMADM #### [facility] [address] [address] [address] Good Montiel Cholesterol in LDL [Mass/Vol] 80.0 mg/dL Normal [facility] Comment on above: Performed By: #### C TIFFANY, CMADM #### [facility] [address] [address] [address] Good Montiel Cholesterol.total/Rocío sterol in HDL [Mass ratio] 3.6 {ratio} Normal [facility] Comment on above: Performed By: #### C TIFFANY, CMADM #### [facility] [address] [address] [address] Good Montiel HDL NORMAL > or = 60 mg/dl - LOW CARDIOVASCULAR RISK <40 mg/dl - HIGH CARDIOVASCULAR RISK Normal [facility] Comment on above: Performed By: #### C TIFFANY, CMADM #### [facility] [address] [address] [address] Good Montiel LDL CALC NORMAL SEE BELOW Normal [facility] Comment on above: Result Comment: <100 mg/dl OPTIMAL 100 - 129 mg/dl NEAR OR ABOVE OPTIMAL 130 - 159 mg/dl BORDERLINE HIGH 160 - 189 mg/dl HIGH >190 mg/dl VERY HIGH Performed By: #### C TIFFANY, CMADM #### [facility] [address] [address] [address] Good Montiel Triglyceride [Mass/Vol] 165 mg/dL Critically high <=150 [facility] Comment on above: Performed By: #### C SERAFIN ALLEN #### [facility] [address] [address] [address] Good Montiel VLDL CALC 33.0 mg/dL Normal [facility] Comment on above: Performed By: #### C SERAFIN ALLEN #### [facility] [address] [address] [address] Good Montiel MRI BRAIN WO CONon [...] by: ALFONSO ALTMAN Date: 2021-06-05 15:08 Normal [facility] POINT OF CARE GLUCOSEon 05-17 Glucose [Mass/Vol] 119 mg/dL Critically high 74-106 [facility] Comment on above: Performed By: #### P OCGLUC ####[facility] [address] [address]Dr. Good Montiel Glucose [Mass/Vol] 169 mg/dL Critically high 74-106 [facility] Comment on above: Performed By: #### P OCGLUC ####[facility] [address] [address]Dr. Good Montiel Glucose [Mass/Vol] 119 mg/dL Critically high 74-106 [facility] Comment on above: Performed By: #### P OCGLUC ####[facility] [address] [address]Dr. Good Montiel PROF 14(COMP METB)on 022 Albumin [Mass/Vol] 3.3 g/dL Critically low 3.5-5.0 [facility] Comment on above: Performed By: #### C SERAFIN ALLEN #### [facility] [address] [address] [address] Good Montiel Albumin/Globulin [Mass ratio] 1.0 {ratio} Normal [facility] Comment on above: Performed By: #### C SERAFIN ALLEN #### [facility] [address] [address] [address] Good Montiel ALP [Catalytic activity/Vol] 40 U/L Normal 38-126 [facility] Comment on above: Performed By: #### C SERAFIN ALLEN #### [facility] [address] [address] [address] Good Montiel ALT [Catalytic activity/Vol] 23 U/L Normal 9-52 [facility] Comment on above: Performed By: #### C SERAFIN ALLEN #### [facility] [address] [address] [address] Good Montiel Anion gap [Moles/Vol] 11.3 mmol/L Normal [facility] Comment on above: Performed By: #### C DOUGLAS ALLENDM #### [facility] [address] [address] [address] Good Montiel AST [Catalytic activity/Vol] 20 U/L Normal 14-36 [facility] Comment on above: Performed By: #### C SERAFIN ALLEN #### [facility] [address] [address] [address] Good Montiel Bilirubin [Mass/Vol] 0.6 mg/dL Normal 0.2-1.3 [facility] Comment on above: Performed By: #### C TIFFANY, CMADM #### [facility] [address] [place] [address] Dr. Good Montiel Calcium [Mass/Vol] 8.5 mg/dL Normal 8.4-10.2 [facility] Comment on above: Performed By: #### C TIFFANY, CMADM #### [facility] [address] [place] [address] Dr. Good Montiel Chloride [Moles/Vol] 90 mmol/L Critically low 98-107 [facility] Comment on above: Performed By: #### C TIFFANY, CMADM #### [facility] [address] [place] [address] Dr. Good Montiel CO2 [Moles/Vol] 28.5 mmol/L Normal 22.0-30.0 [facility] Comment on above: Performed By: #### C TIFFANY, CMADM #### [facility] [address] [place] [address] Dr. Good Montiel Creatinine [Mass/Vol] 0.89 mg/dL Normal 0.52-1.04 [facility] Comment on above: Performed By: #### C TIFFANY, DOUGLASDM #### [facility] [address] [place] [address] Dr. Good Montiel EGFR-AF INDONESIAN >60 Normal >=60 [facility] Comment on above: Performed By: #### C TIFFANY, CMADM #### [facility] [address] [place] [address] Dr. Good Montiel EGFR-NON AF INDONESIAN >60 Normal >=60 [facility] Comment on above: Performed By: #### C TIFFANY, CMADM #### [facility] [address] [place] [address] Dr. Good Montiel Globulin (S) [Mass/Vol] 3.3 g/dL Normal [facility] Comment on above: Performed By: #### C TIFFANY, DOUGLASDM #### [facility] [address] [place] [address] Dr. Good Montiel Glucose [Mass/Vol] 128 mg/dL Critically high 74-106 [facility] Comment on above: Performed By: #### C TIFFANY, DOUGLASDM #### [facility] [address] [address] [address] Good Montiel Potassium [Moles/Vol] 3.8 mmol/L Normal 3.4-5.0 [facility] Comment on above: Performed By: #### C TIFFANY, DOUGLASDM #### [facility] [address] [address] [address] Good Montiel Protein [Mass/Vol] 6.6 g/dL Normal 6.1-8.2 [facility] Comment on above: Performed By: #### C TIFFANY, DOUGLASDM #### [facility] [address] [address] [address] Good Montiel Sodium [Moles/Vol] 126 mmol/L Critically low 137-145 [facility] Comment on above: Performed By: #### C TIFFANY, CMADM #### [facility] [address] [address] [address] Good Montiel Urea nitrogen [Mass/Vol] 16.0 mg/dL Normal 7.0-17.0 [facility] Comment on above: Performed By: #### C TIFFANY, CMADM #### [facility] [address] [place] [address] Dr. Good Montiel Urea nitrogen/Creatinine [Mass ratio] 18.0 mg/mg Normal [facility] Comment on above: Performed By: #### C TIFFANY, CMADM #### [facility] [address] [address] [address] Good Montiel US CAROTID ART BILon [...] GINGER BROOKS Date: 2021-06-05 15:31 Normal [facility] XR CHEST 1 Von 06-05-2021 XR [...] GINGER BROOKS Date: 2021-06-05 09:36 Normal [facility] CT HEAD WO CONon 06-04-2021 CT [...] GINGER BROOKS Date: 2021-06-04 08:06 Normal [facility] BNPon 05-27-2021 Natriuretic peptide B (Bld) [Mass/Vol] 285.0 pg/mL Normal <=900.0 [facility] Comment on above: Performed By: #### C MADM, CMP, BNP ####[facility] [address] [id number]. Good Dinesh CARDIAC LOGAN ADMITon 022 CK [Catalytic activity/Vol] 60 U/L Normal 30-135 [facility] Comment on above: Performed By: #### C MADM, CMP, BNP ####[facility] [address] [phone]. Good Montiel CK.MB [Mass/Vol] 2.13 ng/mL Normal <=2.37 [facility] Comment on above: Performed By: #### C MADM, CMP, BNP ####[facility] [address] [address]Dr. Rejoo Montiel HSTROP 10.8 pg/mL Normal 4.0-35.5 [facility] Comment on above: Result Comment: CUT- OFF POINTS HAVE BEEN ESTABLISHED BASED ON THE FOURTH UNIVERSAL DEFINITIONS OF MYOCARDIAL INFARCTION. THE UPPER REFERENCE LIMIT (URL) OF TROPONIN, DEFINED THE 99TH PERCENTILE OF cTnI DISTRIBUTION IN A REFERENCE POPULATION, HAS BEEN CONFIRMED THE DECISION THRESHOLD FOR MT DIAGNOSIS. Performed By: #### C MADM, CMP, BNP ####[facility] [address] [address]Dr. Rejoo Montiel CLIF 62.0 ng/mL Critically high <=61.5 [facility] Comment on above: Performed By: #### C MADM, CMP, BNP ####[facility] [address] [address]Dr. Good Montiel CBC AUTO DIFFon 05-27-2021 BASO # 0.1 103/ul Normal 0.0-0.1 [facility] Comment on above: Performed By: #### C BC ####[facility] [address] [address]Dr. Good Montiel Basophils/100 WBC (Bld) 0.8 % Normal 0.2-2.0 [facility] Comment on above: Performed By: #### C BC ####[facility] [address] [address]Dr. Good Montiel EO # 0.3 103/ul Normal 0.0-0.7 [facility] Comment on above: Performed By: #### C BC ####[facility] [address] [address]Dr. Good Montiel Eosinophils/100 WBC (Bld) 3.1 % Normal 0.9-7.0 [facility] Comment on above: Performed By: #### C BC ####[facility] [address] [place], [place] [address]Dr. Good Montiel Erythrocyte distribution width (RBC) [Ratio] 18.4 % Critically high 11.0-15.0 [facility] Comment on above: Performed By: #### C BC ####[facility] [address] [place], [place] [address]Dr. Good Montiel Hematocrit (Bld) [Volume fraction] 31.8 % Critically low 36.0-48.0 [facility] Comment on above: Performed By: #### C BC ####[facility] [address] [place], [place] [address]Dr. Good Montiel Hemoglobin (Bld) [Mass/Vol] 9.8 g/dL Critically low 12.0-16.0 [facility] Comment on above: Performed By: #### C BC ####[facility] [address] [place], [place] [address]Dr. Good Montiel IG # 0.09 10e3/ul Critically high 0.00-0.03 [facility] Comment on above: Performed By: #### C BC ####[facility] [address] [place], [place] [address]Dr. Good Montiel IG % 1.1 % Critically high 0.0-0.5 [facility] Comment on above: Performed By: #### C BC ####[facility] [address] [place], [place] [address]Dr. Good Montiel LYMPH # 1.6 103/ul Normal 1.2-3.8 [facility] Comment on above: Performed By: #### C BC ####[facility] [address] [place], [place] [address]Dr. Good Montiel Lymphocytes/100 WBC (Bld) 18.5 % Critically low 20.5-60.0 [facility] Comment on above: Performed By: #### C BC ####[facility] [address] [address]DrSmooth Montiel MANUAL DIFF REQ NO Normal [facility] Comment on above: Performed By: #### C BC ####[facility] [address] [address]Dr. Good Montiel MCH (RBC) [Entitic mass] 22.1 pg Critically low 26.7-34.0 [facility] Comment on above: Performed By: #### C BC ####[facility] [address] [place], [place] [address]Dr. Good Montiel MCHC (RBC) [Mass/Vol] 30.8 g/dL Normal 29.9-35.2 [facility] Comment on above: Performed By: #### C BC ####[facility] [address] [place], [place] [address]Dr. Good Montiel MCV (RBC) [Entitic vol] 71.6 fL Critically low 81.0-99. 0 [facility] Comment on above: Performed By: #### C BC ####[facility] [address] [place], [place] [address]DrSmooth Montiel MONO # 0.7 103/ul Normal 0.3-0.8 [facility] Comment on above: Performed By: #### C BC ####[facility] [address] [place], [place] [address]Dr. Good Montiel Monocytes/100 WBC (Bld) 8.8 % Normal 1.7-12.0 [facility] Comment on above: Performed By: #### C BC ####[facility] [address] [place], [place] [address]DrSmooth Montiel NEUT # 5.7 103/ul Normal 1.4-6.5 [facility] Comment on above: Performed By: #### C BC ####[facility] [address] [place], [place] [address]DrSmooth Montiel Neutrophils/100 WBC (Bld) 67.7 % Normal 43.0-75.0 [facility] Comment on above: Performed By: #### C BC ####[facility] [address] [place], [place] [address]SgSmooth Montiel Platelet mean volume (Bld) [Entitic vol] 8.2 fL Critically low 9.5-13.5 [facility] Comment on above: Performed By: #### C BC ####[facility] [address] [place], [place] [address]Xf. Good Montiel PLT 382 103/ul Normal 150-450 [facility] Comment on above: Performed By: #### C BC ####[facility] [address] [phone]. Good Montiel RBC 4.44 106/ul Normal 4.20-5.40 [facility] Comment on above: Performed By: #### C BC ####[facility] [address] [phone]. Good Montiel WBC 8.4 103/ul Normal 4.0-11.0 [facility] Comment on above: Performed By: #### C BC ####[facility] [address] [place], [place] [address] STROKE HEAD WOon 05-27-19 CT [...] GINGER BROOKS Date: 2021-05-27 07:10 Normal [facility] PROF 14(COMP METB)on 022 Albumin [Mass/Vol] 3.3 g/dL Critically low 3.5-5.0 [facility] Comment on above: Performed By: #### C MADM, CMP, BNP ####[facility] [address] [address]Dr. Good Montiel Albumin/Globulin [Mass ratio] 1.0 {ratio} Normal [facility] Comment on above: Performed By: #### C MADM, CMP, BNP ####[facility] [address] [address]Dr. Good Montiel ALP [Catalytic activity/Vol] 43 U/L Normal 38-126 [facility] Comment on above: Performed By: #### C MADM, CMP, BNP ####[facility] [address] [address]Dr. Good Montiel ALT [Catalytic activity/Vol] 27 U/L Normal 9-52 [facility] Comment on above: Performed By: #### C MADM, CMP, BNP ####[facility] [address] [address]Dr. Good Montiel Anion gap [Moles/Vol] 8.1 mmol/L Normal [facility] Comment on above: Performed By: #### C MADM, CMP, BNP ####[facility] [address] [address]Dr. Good Montiel AST [Catalytic activity/Vol] 23 U/L Normal 14-36 [facility] Comment on above: Performed By: #### C MADM, CMP, BNP ####[facility] [address] [address]Dr. Good Montiel Bilirubin [Mass/Vol] 0.4 mg/dL Normal 0.2-1.3 [facility] Comment on above: Performed By: #### C MADM, CMP, BNP ####[facility] [address] [address]Dr. Good Montiel Calcium [Mass/Vol] 8.5 mg/dL Normal 8.4-10.2 [facility] Comment on above: Performed By: #### C MADM, CMP, BNP ####[facility] [address] [address]Dr. Good Montiel Chloride [Moles/Vol] 94 mmol/L Critically low 98-107 [facility] Comment on above: Performed By: #### C MADM, CMP, BNP ####[facility] [address] [address]Dr. Good Montiel CO2 [Moles/Vol] 29.9 mmol/L Normal 22.0-30.0 [facility] Comment on above: Performed By: #### C MADM, CMP, BNP ####[facility] [address] [place], [place] [address]Dr. Good Montiel Creatinine [Mass/Vol] 0.77 mg/dL Normal 0.52-1.04 [facility] Comment on above: Performed By: #### C MADM, CMP, BNP ####[facility] [address] [place], [place] [address]Dr. Good Montiel EGFR-AF INDONESIAN >60 Normal >=60 [facility] Comment on above: Performed By: #### C MADM, CMP, BNP ####[facility] [address] [place], [place] [address]Dr. Good Montiel EGFR-NON AF INDONESIAN >60 Normal >=60 [facility] Comment on above: Performed By: #### C MADM, CMP, BNP ####[facility] [address] [address]Dr. Good Montiel Globulin (S) [Mass/Vol] 3.4 g/dL Normal [facility] Comment on above: Performed By: #### C MADM, CMP, BNP ####[facility] [address] [address]Dr. Good Montiel Glucose [Mass/Vol] 114 mg/dL Critically high 74-106 [facility] Comment on above: Performed By: #### C MADM, CMP, BNP ####[facility] [address] [address]Dr. Good Montiel Potassium [Moles/Vol] 4.0 mmol/L Normal 3.4-5.0 [facility] Comment on above: Performed By: #### C MADM, CMP, BNP ####[facility] [address] [address]Dr. Good Montiel Protein [Mass/Vol] 6.7 g/dL Normal 6.1-8.2 [facility] Comment on above: Performed By: #### C MADM, CMP, BNP ####[facility] [address] [address]Dr. Good Montiel Sodium [Moles/Vol] 128 mmol/L Critically low 137-145 Th [facility] Comment on above: Performed By: #### C MADM, CMP, BNP ####[facility] [address] [address]Dr. Good Montiel Urea nitrogen [Mass/Vol] 12.0 mg/dL Normal 7.0-17.0 [facility] Comment on above: Performed By: #### C MADM, CMP, BNP ####[facility] [address] [address]Dr. Good Montiel Urea nitrogen/Creatinine [Mass ratio] 15.6 mg/mg Normal [facility] Comment on above: Performed By: #### C MADM, CMP, BNP ####[facility] [address] [address]DrSmooth Montiel PROTIMEon 05-27-2021 INR Coag (PPP) [Relative time] 1.01 {INR} Normal [facility] Comment on above: Performed By: #### M MA2 #### [facility] [address] [address] [address] Good Montiel INR GUIDELINES SEE BELOW Normal [facility] Comment on above: Result Comment: JEANNINE RED INR: 2.0 - 3.0 CONDITIONS NOT LISTED BELOW 2.5 - 3.5 FOR PROSTHETIC HEART VALVE REPLACEMENT 2.5 - 3.5 RECURRENT THROMBOSIS Performed By: #### M MA2 #### [facility] [address] [place], [place] [address] Dr. Good Montiel PT Coag (PPP) [Time] 10.9 s Normal 9.0-11.6 [facility] Comment on above: Performed By: #### M MA2 #### [facility] [address] [place], [place] [address] Dr. Good Montiel PTTon 05-27-2021 aPTT Coag (Bld) [Time] 24.5 s Normal 22.3-36.2 [facility] Comment on above: Performed By: #### M MA2 #### [facility] [id number] Good Montiel XR CHEST 1 Von [...] by: GINGER BROOKS Date: 2021-05-27 07:53 Normal [facility] Vital Signs Date Time Vital Sign Value Performing Clinician Facility 10-11-2024 15:48-0400 Body height 149.9 cm Wily Prado MD Work Phone: [facility] 10-11-2024 15:48-0400 Body mass index (BMI) [Ratio] 34.74 kg/m2 Wily Prado MD Work Phone: [facility] 10-11-2024 15:48-0400 Body weight 78.02 kg Wily Prado MD Work Phone: [facility] 10-11-2024 15:48-0400 Diastolic blood pressure 60 mm[Hg] Wily Prado MD Work Phone: [facility] 10-11-2024 15:48-0400 Heart rate 64 /min Wily Prado MD Work Phone: [facility] 10-11-2024 15:48-0400 SaO2% (BldA) [Mass fraction] 94 % Wily Prado MD Work Phone: [facility] 10-11-2024 15:48-0400 Systolic blood pressure 130 mm[Hg] Wily Prado MD Work Phone: [facility] 05-11-2024 08:34-0500 Diastolic blood pressure 60 mm[Hg] Wily Prado MD Work Phone: [facility] 05-11-2024 08:34-0500 Systolic blood pressure 160 mm[Hg] Wily Prado MD Work Phone: [facility] 05-08-2024 08:24-0500 Body height 149.9 cm Wily Prado MD Work Phone: [facility] 05-08-2024 08:24-0500 Body mass index (BMI) [Ratio] 33.33 kg/m2 Wily Prado MD Work Phone: [facility] 05-08-2024 08:24-0500 Body weight 74.84 kg Wily Prado MD Work Phone: [facility] 05-08-2024 08:24-0500 Diastolic blood pressure 92 mm[Hg] Wily Prado MD Work Phone: [facility] 05-08-2024 08:24-0500 Heart rate 61 /min Wily Prado MD Work Phone: [facility] 05-08-2024 08:24-0500 Respiratory rate 17 /min Wily Prado MD Work Phone: [facility] 05-08-2024 08:24-0500 SaO2% (BldA) [Mass fraction] 98 % Wily Prado MD Work Phone: [facility] 05-08-2024 08:24-0500 Systolic blood pressure 184 mm[Hg] Wily Prado MD Work Phone: [facility] 01-17-2024 10:04-0400 Body height 149.9 cm Wily Prado MD Work Phone: [facility] 01-17-2024 10:04-0400 Body mass index (BMI) [Ratio] 33.12 kg/m2 Wily Prado MD Work Phone: [facility] 01-17-2024 10:04-0400 Body weight 74.39 kg Wily Prado MD Work Phone: [facility] 01-17-2024 10:04-0400 Diastolic blood pressure 84 mm[Hg] Wily Prado MD Work Phone: [facility] 01-17-2024 10:04-0400 Heart rate 58 /min Wily Prado MD Work Phone: [facility] 01-17-2024 10:04-0400 SaO2% (BldA) [Mass fraction] 97 % Wily Prado MD Work Phone: [facility] 01-17-2024 10:04-0400 Systolic blood pressure 138 mm[Hg] Wily Prado MD Work Phone: [facility] 02-01-2023 10:58-0400 Body temperature 97.2 [degF] MD Wily Prado Work Phone: [facility] 02-01-2023 10:58-0400 Body weight 78.92 kg MD Wily Prado Work Phone: [facility] 02-01-2023 10:58-0400 Diastolic blood pressure 66 mm[Hg] MD Wily Prado Work Phone: [facility] 02-01-2023 10:58-0400 Heart rate 67 /min MD Wily Prado Work Phone: [facility] 02-01-2023 10:58-0400 Respiratory rate 16 /min MD Wily Prado Work Phone: [facility] 02-01-2023 10:58-0400 SaO2% (BldA) [Mass fraction] 95 % MD Wily Prado Work Phone: [facility] 02-01-2023 10:58-0400 Systolic blood pressure 171 mm[Hg] MD Wily Prado Work Phone: [facility] 11-02-2022 09:46-0400 Body temperature 97.8 [degF] MD Wily Prado Work Phone: [facility] 11-02-2022 09:46-0400 Body weight 78.01 kg MD Wily Prado Work Phone: [facility] 11-02-2022 09:46-0400 Diastolic blood pressure 79 mm[Hg] MD Wily Prado Work Phone: [facility] 11-02-2022 09:46-0400 Heart rate 64 /min MD Wily Prado Work Phone: [facility] 11-02-2022 09:46-0400 Respiratory rate 16 /min MD Wily Prado Work Phone: [facility] 11-02-2022 09:46-0400 SaO2% (BldA) [Mass fraction] 95 % MD Wily Prado Work Phone: [facility] 11-02-2022 09:46-0400 Systolic blood pressure 179 mm[Hg] MD Wiyl Prado Work Phone: [facility] 07-30-2022 10:49-0400 Body temperature 97.7 [degF] MD Wily Prado Work Phone: [facility] 07-30-2022 10:49-0400 Body weight 81 kg MD Wily Prado Work Phone: [facility] 07-30-2022 10:49-0400 Diastolic blood pressure 81 mm[Hg] MD Wily Prado Work Phone: [facility] 07-30-2022 10:49-0400 Heart rate 64 /min MD Wily Prado Work Phone: [facility] 07-30-2022 10:49-0400 Respiratory rate 16 /min MD Wily Prado Work Phone: [facility] 07-30-2022 10:49-0400 SaO2% (BldA) [Mass fraction] 96 % MD Wily Prado Work Phone: [facility] 07-30-2022 10:49-0400 Systolic blood pressure 166 mm[Hg] MD Wily Prado Work Phone: [facility] 04-26-2022 09:37-0500 Body temperature 97.8 [degF] MD Wily Prado Work Phone: [facility] 04-26-2022 09:37-0500 Body weight 80.4 kg MD Wily Prado Work Phone: [facility] 04-26-2022 09:37-0500 Diastolic blood pressure 71 mm[Hg] MD Wily Prado Work Phone: [facility] 04-26-2022 09:37-0500 Heart rate 60 /min MD Wily Prado Work Phone: [facility] 04-26-2022 09:37-0500 Respiratory rate 16 /min MD Wily Prado Work Phone: [facility] 04-26-2022 09:37-0500 SaO2% (BldA) [Mass fraction] 93 % MD Wily Prado Work Phone: [facility] 04-26-2022 09:37-0500 Systolic blood pressure 145 mm[Hg] MD Wily Prado Work Phone: [facility] 02-22-2022 11:08-0400 Body temperature 98 [degF] MD Wily Prado Work Phone: [facility] 02-22-2022 11:08-0400 Body weight 80.73 kg MD Wily Prado Work Phone: [facility] 02-22-2022 11:08-0400 Diastolic blood pressure 56 mm[Hg] MD Wily Prado Work Phone: [facility] 02-22-2022 11:08-0400 Heart rate 65 /min MD Wily Prado Work Phone: [facility] 02-22-2022 11:08-0400 Respiratory rate 16 /min MD Wily Prado Work Phone: [facility] 02-22-2022 11:08-0400 SaO2% (BldA) [Mass fraction] 95 % MD Wily Prado Work Phone: [facility] 02-22-2022 11:08-0400 Systolic blood pressure 163 mm[Hg] MD Wily Prado Work Phone: [facility] 01-12-2022 11:24-0400 Body temperature 97.9 [degF] MD Wily Prado Work Phone: [facility] 01-12-2022 11:24-0400 Body weight 87.86 kg MD Wily Prado Work Phone: [facility] 01-12-2022 11:24-0400 Diastolic blood pressure 63 mm[Hg] MD Wily Prado Work Phone: [facility] 01-12-2022 11:24-0400 Heart rate 58 /min MD Wily Prado Work Phone: [facility] 01-12-2022 11:24-0400 Respiratory rate 18 /min MD Wily Prado Work Phone: [facility] 01-12-2022 11:24-0400 SaO2% (BldA) [Mass fraction] 97 % MD Wily Prado Work Phone: [facility] 01-12-2022 11:24-0400 Systolic blood pressure 169 mm[Hg] MD Wily Prado Work Phone: [facility] 01-12-2022 11:14-0400 Body height 152.4 cm MD Wily Prado Work Phone: [facility] 02-24-2021 13:00-0400 Body height 152.4 cm Mikie Mijaresreyaima Other [facility] Other 02-24-2021 13:00-0400 Body mass index (BMI) [Ratio] 37.1 kg/m2 Mikie Mijaresrer Other [facility] Other 02-24-2021 13:00-0400 Body temperature 97.6 [degF] Mikie Mijaresrer Other [facility] Other 02-24-2021 13:00-0400 Body weight 86.18 kg Mikie Mijaresrer Other [facility] Other 02-24-2021 13:00-0400 Diastolic blood pressure 67 mm[Hg] Mikie Mijaresrer Other [facility] Other 02-24-2021 13:00-0400 Systolic blood pressure 166 mm[Hg] Mikie Buehrer Other [facility] Other Encounters Encounter Date Encounter Type Care Provider Facility Start: 01-07-2025 End: 01-07-2025 ambulatory [facility] Start: 12-24-2024 End: 12-24-2024 ambulatory Danitza Murray MD Facility:[facility] Start: 12-14-2024 End: 12-14-2024 Jordan GE Work Phone: RENY Ye [facility] Comment on above: Other insomnia Start: 12-10-2024 End: 12-11-2024 Jordan Prado MD Work Phone: [facility] Comment on above: Other insomnia Start: 11-18-2024 [...] polyneuropathy, with long-term current use of insulin ([facility]) (Primary Dx); Mixed hyperlipidemia ([facility]); Agitation states as acute reaction to exceptional (gross) stress; Essential hypertension ([facility]); Other insomnia; Hypertensive emergency ([facility]) Start: 05-08-2024 End: 05-08-2024 ambulatory RUGEN Hakeem [...] polyneuropathy, with long-term current use of insulin ([facility]) Essential hypertensi on ([facility]) Start: 01-17-2024 End: 01-17-2024 Office outpatient visit [...] 01-09-2024 End: 01-09-2024 Bamboo flowsheet Eddie Ambrocio [employer] [facility] Start: 01-09-2024 End: 01-09-2024 Bamboo flowsheet Eddie Ambrocio [employer] [employer] Start: 01-09-2024 End: 01-09-2024 ambulatory Eddie Ambrocio [employer] [employer] Comment on above: Muscle spasm of back (Primary Dx); Bilateral hip pain; Acute bilateral low back pain with sciatica, sciatica laterality unspecified; Lumbar spondylosis Start: 01-05-2024 End: 01-05-2024 ambulatory London Crabtree [employer] [employer] Comment on above: Muscle spasm of back (Primary Dx); Bilateral hip pain; Acute bilateral low back pain with sciatica, sciatica laterality unspecified; Lumbar spondylosis Start: 01-02-2024 End: 01-02-2024 ambulatory JALYN GUAN Not Available Start: 12-29-2023 End: 12-29-2023 ambulatory LONDON CRABTREE Not Available Start: 12-27-2023 End: 12-27-2023 ambulatory JALYN GUAN Not Available Start: 12-26-2023 Assay of hemosiderin , quant London Crabtree [facility] [employer] Start: 12-26-2023 End: 12-26-2023 ambulatory RUGEN M JOHAN Not Available Start: 12-20-2023 End: 12-20-2023 ambulatory LOGAN KAUR Not Available Start: 09-16-2023 End: 09-16-2023 Patient encounter procedure MD Wily Prado Work Phone: [facility] [place] Work Phone: Start: 09-16-2023 End: 09-16-2023 ambulatory MD Wily Prado Work Phone: [facility] Work Phone: Start: 06-28-2023 End: 06-28-2023 ambulatory London German [employer] [facility] Comment on above: Acute [...] above: Med Refill ([facility] [place]) Acute bilateral low back pain with bilateral sciatica (Primary Dx) Start: 02-01-2023 ambulatory MD Wily landers Work Phone: [facility] Work Phone: Start: 02-01-2023 Registered Recurring MD Wily Prado Work Phone: [facility] Work Phone: Start: 11-02-2022 End: 11-02-2022 ambulatory MD Wily Prado Work Phone: [facility] Work Phone: Start: 11-02-2022 End: 11-02-2022 Registered Recurring MD Wily Prado Work Phone: [facility] Work Phone: Start: 07-30-2022 End: 07-30-2022 ambulatory MD Wily Prado Work Phone: [facility] Work Phone: Start: 07-30-2022 End: 07-30-2022 Registered Recurring MD Wily Prado Work Phone: [facility] Work Phone: Start: 04-26-2022 End: 04-26-2022 ambulatory MD Wily Prado Work Phone: [facility] Work Phone: Start: 04-26-2022 End: 04-26-2022 Registered Recurring MD Wily Prado Work Phone: [facility] Start: 02-22-2022 End: 02-22-2022 ambulatory MD Wily Prado Work Phone: [facility] Work Phone: Start: 02-22-2022 End: 02-22-2022 Registered Recurring MD Wily Prado Work Phone: [facility] Start: 02-17-2022 End: 02-17-2022 ambulatory UNKNOWN PROVIDER Facility:[facility] Start: 02-17-2022 End: 02-17-2022 Emergency department patient visit [facility] Emergency Triage, Treat and Transport Comment on above: Arrived Start: 01-21-2022 End: 01-21-[address] NATALIA LYN Facility:[facility] Start: 01-20-2022 End: 01-20-[address] MIKIE GARCIA Facility:[facility] Start: 01-20-2022 End: 01-20-2022 Departed Referred MD Wily Prado Work Phone: [facility] [place] Start: 01-15-2022 End: 01-19-2022 ambulatory UNKNOWN PROVIDER Facility:[facility] Start: 01-14-2022 End: 01-14-[address] LOGAN GATES Facility:[facility] Start: 01-12-2022 End: 01-12-2022 Registered Recurring MD Wily Prado Work Phone: [facility] Start: 01-12-2022 Registered Recurring MD [facility] Start: 01-04-2022 End: 01-04-[address] GINGER BROOKS Facility:[facility] Start: 12-24-2021 End: 12-24-2021 ambulatory AUNG ZIMMERMAN Facility:[facility] Start: 11-24-2021 End: 11-24-[address] LOGAN GATES Facility:[facility] Start: 11-13-2021 Encounter for genera l adult medical examination without abnormal findings DR LATONYA JOSEPH [facility] Start: 11-10-2021 End: 11-11-[address] [...] carotid endarterectomy H/O carotid endarterectomy London Crabtree P[employer]ER FEEDER Start: 01-05-2022 Colonoscopy Som Hernandezraymond PT Work [...] Visit [facility] [address] [facility] [address] [place] [address] Wily Prado MD [address] [place] [address] [facility] Start: 10-11-2024 End: 10-11-2025 US.doppler Carotid arteries - bilateral Vascular US carotid artery duplex bilateral Imaging Routine Bilateral carotid bruits Expected: 10/11/2024, Expires: 10/11/2025 [facility] Work Phone: Comment on above: Expected: 10/11/2024 , Expires: 10/11/2025 Start: 05-11-2024 End: 05-11-2024 Clinical Support 05/11/2024 10:00 AM EST Clinical Support [facility] [address] [place] [id number] [facility] Start: 05-10-2024 Urine screening [...] Visit [facility] [address] [place] [address] Wily Prado MD [address] [place] [address] [facility] Start: 01-15-2024 Influenza vaccination Influenza Vacc ine (#1) [facility] Start: 01-11-2024 End: 01-11-2024 ambulatory 01/11/2024 10:30 AM EDT Treatment [facility] [address] [place] [address] Jalyn Guan, PT [facility] Start: 01-09-2024 End: 01-09-2024 ambulatory [facility] Comment on above: Arrived Start: 12-28-2023 Medicare Annual Well ness (AWV) Medicare Annual Wellness (AWV) [facility] Start: 07-05-2023 End: 07-05-2023 ambulatory 07/05/2023 2:30 PM EST Treatment [facility] [address] [place] [address] London Crabtree PTA [facility] Start: [...] [address] [place] [address] Som Sheffield, PT [address] [place] [address] [facility] Start: 06-16-2023 End: 06-16-2023 ambulatory 06/16/2023 2:00 PM EST Treatment [facility] [address] [place] [address] Som Sheffield, PT [address] [place] [address] Arrived [facility] Comment on above: Arrived Start: 11-22-2022 Screening for malign ant neoplasm of colon FIT-DNA [facility] Start: 10-14-2022 Annual Wellness Visi t (G0439) Annual Wellness Visit (G0439) [facility] Start: 08-30-2022 [facility] Start: 08-23-2022 [facility] Start: 02-28-2022 Glaucoma screening Diabetes: R etinopathy Screening [facility] Start: 02-13-2022 Influenza vaccination Influenza Vacc ine (#1) [facility] Start: 02-04-2022 [facility] Start: 02-02-2022 COVID-19 Vaccine (5 - Booster for Pfizer series) COVID-19 Vaccine (5 - [facility] Start: 01-28-2022 [facility] Start: 11-10-2021 Screening for malign ant neoplasm of colon FOBT [facility] Start: 11-07-2021 Pneumococcal vaccination Pneum ococcal [...] Hepatitis C screening Hepatitis C [facility] Start: 07-26-1965 Tetanus + diphtheria + acellular pertussis vaccine (product) Tdap Booster [facility] Start: 1945 Screening for malign ant neoplasm of colon [facility] Start: 1945 Screening for malign ant neoplasm of lung Lung Cancer Screening Shared Decision Making [facility] metabo lic 1999 panel - Serum or Plasma [facility] Comprehensive metabo lic 1999 panel - Serum or Plasma [facility] Comprehensive metabo lic 1999 panel - Serum or Plasma [facility] Ferritin [Mass/volum e] in Serum or Plasma [facility] Ferritin [Mass/volum e] in Serum or Plasma [facility] Work Phone: [facility] Immunizations Immunization Date Immunization Notes Care Provider Fa cility 01-06-2024 influenza, high dose seasonal, preservative-free Wily Prado MD Work Phone: [facility] 01-06-2024 influenza virus vaccine, unspecified formulation Wily Prado MD Work Phone: [facility] 06-17-2023 RSV, recombinant, protein subunit RSVpreF, adjuvant reconstitu, 120mcg/0.5mL, PF (Arexvy) Som Sheffield PT Work Phone: [facility] 03-21-2023 Influenza, Seasonal, Quadrivalent, Adjuvanted Som Sheffield PT Work Phone: [facility] 03-21-2023 influenza virus vaccine, unspecified formulation London Crabtree PAPER FEEDER [facility] 03-19-2022 influenza, high dose seasonal, preservative-free Som Sheffield PT Work Phone: [facility] 01-04-2022 diphtheria, tetanus toxoids and pertussis vaccine [facility] 01-04-2022 tetanus toxoid, redu blake diphtheria toxoid, and acellular pertussis vaccine, adsorbed Som Sheffield PT Work Phone: [facility] 10-30-2021 tetanus toxoid, redu blake diphtheria toxoid, and acellular pertussis vaccine, adsorbed Som Sheffield PT Work Phone: [facility] 04-21-2021 Influenza, seasonal vaccine, quadrivalent, adjuvanted, 0.5mL dose, preservative free (THK=910) [facility] 04-21-2021 Seasonal, trivalent, recombinant, injectable influenza vaccine, preservative free Som Sheffield PT Work Phone: [facility] 04-21-2021 influenza virus vaccine, unspecified formulation [facility] 11-07-2020 pneumococcal conjuga te vaccine, 13 valent [facility] 11-07-2020 zoster vaccine recombinant [facility] 07-14-2020 COVID-19 Vaccine Pfi zer - Documentation Purposes Only Mikie West Other [facility] 06-22-2020 COVID-19 Vaccine Pfi zer - Documentation Purposes Only Mikie West Other [facility] 2018 pneumococcal polysaccharide vaccine, 23 hira West Other [facility] 06-13-2009 novel [id number], preservative-free, injectable [facility] Payers Date Payer Category Payer Self-pay [id number] 2022 Private Health Insurance [employer] Ri mber Subscriber Plan / Payer (Effective 2022-Present) Name: Nuvia Martin Relation to Subscriber: Self Name: Nuvia Martin Anshul Payer ID: Not on file Group ID: Not on file Type: Not on file Address: [place] [id number] 2022 Unknown [id number] .[id number] 2012 Medicare [id number] 1.13.56.2. [id number] 1959 Medicare [id number] 2.16.840.1.929426.19 1959 Unknown [id number] 2.16.840.1.615987.19 1947 Unknown [id number] 2.16.840.1.383303.3.579.2 .593 1947 Unknown [id number] 2.16.840.1.522667.3.579.2 .593 1947 Unknown [id number] 2.16.840.1.328751.3.579.2 .593 1947 Unknown [id number] 2.16.840.1.016092.3.579.2 .593 1947 Unknown [id number] 2.16.840.1.915861.3.579.2 .593 1947 Unknown [id number] 2.16.840.1.852499.3.579.2 .593 1947 Unknown [id number] 2.16.840.1.378433.3.579.2 .593 1947 Unknown [id number] 2.16.840.1.593579.3.579.2 .593 1947 Unknown [id number] 2.16.840.1.730225.3.579.2 .593 1947 Unknown [id number] 2.16.840.1.160188.3.579.2 .593 1947 Unknown [id number] 2.16.840.1.914299.3.579.2 .593 1947 Unknown [id number] 2.16.840.1.823477.3.579.2 .593 1947 Unknown [id number] 2.16.840.1.481212.3.579.2 .732 1947 Unknown [id number] 2.16.840.1.129435.3.579.2 .732 1947 Unknown [id number] 2.840.1.987677.3.579.2 .1259 1947 Unknown [id number] 2.16.840.1.035690.3.579.2 .1259 1947 Unknown [id number] 2.16.840.1.248787.3.579.2 .1259 1947 Unknown [id number] 2.16.840.1.030287.3.579.2 .1259 1947 Unknown [id number] 2.16.840.1.607108.3.579.2 .1259 1947 Unknown [id number] 2.16.840.1.042611.3.579.2 .9 1947 Unknown [id number] 2.16.840.1.036532.3.579.2 .9 1947 Unknown [id number] 2.16.840.1.858349.3.579.2 .1258 1947 Unknown [id number] 2.16.840.1.670379.3.579.2 .1258 1947 Unknown [id number] 2.16.840.1.925800.3.579.2 .1258 1947 Unknown [id number] 2.16.840.1.833526.3.579.2 .1258 1947 Unknown [id number] 2.16.840.1.404836.3.579.2 .1258 1947 Unknown [id number] 2.16.840.1.941690.3.579.2 .1258 1947 Unknown [id number] 2.16.840.1.622787.3.579.2 .196 1947 Unknown [id number] 2.16.840.1.192757.3.579.2 .196 1947 Unknown [id number] 2.16.840.1.110006.3.579.2 .196 Unknown [id number] 2.16.840.1.270612.3.579.2 .531 Social History Date Type Detail Facility Unknown if ever smoked [facility] Other Start: 05-10-2023 End: 10-11-2024 Sex Assigned At [facility] Other Start: 01-12-2022 End: 02-01-2023 Tobacco smoking status NHIS Smoker (finding) [facility] Start: 1945 Sex Assigned At Female [facility] Tobacco smoking stat us MEIS Tobacco smoking consumption unknown [facility] Start: 1945 Sex Assigned At Not on file [facility] Start: 12-27-2022 End: 05-08-2024 Tobacco smoking status NHIS Smokes tobacco daily [facility] History of tobacco use Cigarette Smoker [facility] Start: 12-27-2022 End: 10-11-2024 Cigarettes smoked current (pack per day) - Reported 1.5 [facility] Start: 12-27-2022 End: 05-08-2024 Tobacco use and exposure Smokeless tobacco non-user [facility] Start: 05-10-2023 End: 10-11-2024 Alcohol intake Lifetime non-drinker (finding) [facility] Start: 11-10-2022 Tobacco Comment 11-20 cigs/day [facility] Start: 11-10-2022 Alcohol Comment Caffeine intake: more than 4 cups per day [facility] Medical Equipment Procedure Code Equipment Code Equipment Origin al Text Equipment Identifier Dates Endarterectomy, carotid Cardiovascular patch, animal-derived ()[id number] [facility] Start: 10-02-2020 Angioplasty of carotid artery with insertion of stent Bare-metal carotid artery stent ()[id number] [facility] Start: 12-17-2019 USE DIRECTED TWICE A DAY [id number] Start: 12-20-2022 1 each by Other route in the morning and 1 each before bedtime. [id number] USE TO TEST BLOO D SUGAR TWICE DAILY [id number] Start: 06-27-2023 Use as instructed [id number] Start: 05-31-2024 USE INSTRUCTED [id number] Start: 08-20-2024 USE TO TEST BLOO D SUGAR TWICE DAILY [id number] Start: 12-10-2024 Goals Date Patient Goal Desired Activity /State Functional Status Date Assessment Result Facility 10-11-2024 Patient Health Quest ionnaire 2 item (PHQ-2) [Reported] [facility] Clinical Notes 02-24-2021 to 12-14-2024 Telephone Encounter - LUMA Garcia - 12/14/2024 12:17 PM EDTTelephone Encounter - LUMA Garcia - 12/14/2024 12:17 PM EDTTelephone Encounter - VENANCIO SMALL - 12/14/2024 10:03 AM EDT Note Date & Type Note Facility 12-14-2024 Telephone encount er Note Resent, though it does show that [facility] filled this, hopefully she will not have an issue getting this at [facility] and the other Rx will be cancelled. [facility] 12-14-2024 Miscellaneous Notes Formattin g of this note might be different from the original. Resent, though it does show that [facility] filled this, hopefully she will not have an issue getting this at [facility] and the other Rx will be cancelled. Needs to go to [facility] documented in this encounter [facility] 12-14-2024 Telephone encount er Note Needs to go to [facility] 12-11-2024 Telephone encount er Note OARRS reviewed, Rx sent into patient's pharmacy. [facility] 12-11-2024 Miscellaneous Notes Formattin g of this note might be different from the original. [facility]AR[facility] reviewed, Rx sent into patient's pharmacy. documented in this encounter [facility] 11-19-2024 Telephone encount er Note Amlodipine sent. [facility] 11-19-2024 Miscellaneous Notes Formattin g of this note might be different from the original. Amlodipine sent. documented in this encounter [facility] 11-09-2024 Telephone encount er Note OARRS reviewed, Rx sent into patient's pharmacy. [facility] 11-09-2024 Miscellaneous Notes Formattin g of this note might be different from the original. [facility]ARRS reviewed, Rx sent into patient's pharmacy. OV 10/11/24 RF 10/11/24 documented in this encounter [facility] 11-09-2024 Telephone encount er Note OV 10/11/24 RF 10/11/24 [facility] 10-12-2024 Telephone encount er Note See TE from today. Rx will be filled at [facility]. [facility] 10-12-2024 Miscellaneous Notes Formattin g of this note might be different from the original. See TE from today. Rx will be filled at [facility]. Patient need refill on ALPRAZolam (Xanax) 0.5 MG . She asked if that could be sent to [facility] in [place]. documented in this encounter [facility] 10-12-2024 Telephone encount er Note [facility] called, questioning Xanax being sent to [facility]. Advised it was supposed to be filled at [facility], pt did want it filled there, not [facility]. They have a refill on file for her for 30 day supply and will proceed with filling it. They will contact [facility] and let them know that they are filling the Rx for the patient. [facility] 10-12-2024 Miscellaneous Notes Formattin g of this note might be different from the original. [facility] called, questioning Xanax being sent to [facility]. Advised it was supposed to be filled at [facility], pt did want it filled there, not [facility]. They have a refill on file for her for 30 day supply and will proceed with filling it. They will contact [facility] and let them know that they are filling the Rx for the patient. documented [facility] this encounter [facility] [facility] 10-11-2024 Telephone encount er Note Patient need refill on ALPRAZolam (Xanax) 0.5 MG . She asked if that could be sent to [facility] in [place]. [facility] 10-11-2024 History of Presen t illness Narrative Associated Problem(s): Grade II diastolic dysfunction Needs better BP control Associated Problem(s): Benign hypertension ([facility]/HCC) Our specific goals, for your hypertension, is [...] being taken. She does not see a mill representative.Eye exam is current. Current Outpatient Medications on [...] tablet 3 insulin pen needle (Droplet Pen Peoa) 32G x 4 mm [facility] USE INSTRUCTED 300 each 3 ipratropium-albuterol (Duo-Neb) [...] time each day at the same time. Bison-3 Fatty Acids (Fish Oil) 1000 MG capsule [...] Diagnosis Date AMS (altered mental status) 10/30/2020 [facility] Anemia Arthritis Asthma Breast lump Bronchitis Cancer (CMS/HCC) cervical Carotid artery stenosis Cataract Chicken pox COPD (chronic obstructive pulmonary disease) (CMS/HCC) Diabetes mellitus (CMS/HCC) Disease of thyroid gland (CMS/HCC) Emphysema lung (CMS/HCC) History of being hospitalized 10/30/2020 AMS [facility] Hyperlipemia (CMS/HCC) Hypertension (CMS/HCC) Measles Vascular calcification [...] for Diabetes. documented in this encounter [facility] 10-11-2024 Telephone encount er Note Patient has appointment today. [facility] 10-11-2024 Miscellaneous Notes Formattin g of this note might be different from the original. Patient has appointment today. documented in this encounter [facility] 05-11-2024 History of Presen t illness Narrative Pt was here for a BP check documented in this encounter [facility] 05-08-2024 History of Presen t illness Narrative [...] time each day at the same time. Bison-3 Fatty Acids (Fish Oil) 1000 MG capsule [...] Diagnosis Date AMS (altered mental status) 10/30/2020 [facility] Anemia Arthritis Asthma ([facility]/HCC) Breast lump Bronchitis Cancer ([facility]/HCC) cervical Carotid artery stenosis Cataract Chicken pox COPD (chronic obstructive pulmonary disease) ([facility]/HCC) Diabetes mellitus ([facility]/HCC) Disease of thyroid gland ([facility]/HCC) Emphysema lung ([facility]/HCC) History of being hospitalized 10/30/2020 AMS [facility] Hyperlipemia ([facility]) Hypertension ([facility]) Measles Vascular calcification Past Surgical History: Procedure [...] of healthy diet and exercise. Essential hypertension ([facility]/HCC) Relevant Medications amLODIPine (Norvasc) 10 MG tablet Hyperlipidemia ([facility]/HCC) This is a chronic medical condition that [...] long distances while on medicines. Hypertensive emergency ([facility]) Add Norvasc Take all current blood medications If with severe or stroke like symptoms got to ER Other Visit Diagnoses Other insomnia Relevant Medications ALPRAZolam (Xanax) 0.5 MG tablet Follow up in about 3 days (around 05/11/2024) for Hypertension. documented in this encounter [facility] 05-04-2024 Telephone encount er Note 7 day supply sent. [facility] 05-04-2024 Miscellaneous Notes Formattin g of this note might be different from the original. 7 day supply sent. Pt made an appt for tues with johan , but she is needing a refill on her xanax if willing to send in for her [facility] she stated it helps her sleep at night documented in this encounter [facility] 05-04-2024 Telephone encount er Note Pt made an appt for tues with johan , but she is needing a refill on her xanax if willing to send in for her please [facility] to [facility] she stated it helps her sleep at night [facility] 03-20-2024 Telephone encount er Note OARRS reviewed, Rx sent into patient's pharmacy. [facility] 03-20-2024 Miscellaneous Notes Formattin g of this note might be different from the original. OARRS reviewed, Rx sent into patient's pharmacy. documented in this encounter [facility] 02-15-2024 Telephone encount er Note OARRS reviewed, Rx sent into patient's pharmacy. [facility] 02-15-2024 Miscellaneous Notes Formattin g of this note might be different from the original. OARRS reviewed, Rx sent into patient's pharmacy. documented in this encounter [facility] 02-10-2024 Telephone encount er Note Atorvastatin sent. [facility] 02-10-2024 Miscellaneous Notes Formattin g of this note might be different from the original. Atorvastatin sent. documented in this encounter [facility] 02-10-2024 Telephone encount er Note Janumet sent [facility] 02-10-2024 Miscellaneous Notes Formattin g of this note might be different from the original. Janumet sent documented in this encounter [facility] 01-17-2024 History of Presen t illness Narrative [...] time each day at the same time. Bison-3 Fatty Acids (Fish Oil) 1000 MG capsule [...] Diagnosis Date AMS (altered mental status) 10/30/2020 [facility] Anemia Arthritis Asthma (CMS/HCC) Breast lump Bronchitis Cancer (CMS/HCC) cervical Carotid artery stenosis Cataract Chicken pox COPD (chronic obstructive pulmonary disease) (CMS/HCC) Diabetes mellitus (CMS/HCC) Disease of thyroid gland (CMS/HCC) Emphysema lung (CMS/HCC) History of being hospitalized 10/30/2020 [facility] Hyperlipemia (CMS/HCC) Hypertension (CMS/HCC) Measles Vascular calcification [...] (around 04/17/2024). documented in this encounter [facility] 01-11-2024 History of Presen t illness Narrative [...] her feet; denies any recent falls. Precautions: [place] Subjective: Pt states she has been hurting [...] instructed in home exercise program. - met Detention Goals: To be met in 10 weeks [...] home program. documented in this encounter [facility] 06-21-2023 History of Presen t illness Narrative [...] Signature: Date: documented in this encounter [facility] 06-16-2023 Telephone encount er Note Requesting refill of Tramadol - not on current med list. [facility] 06-16-2023 Miscellaneous Notes Formattin g of this note might be different from the original. Requesting refill of Tramadol - not on current med list. documented in this encounter [facility] 06-16-2023 History of Presen t illness Narrative [...] Signature: Date: documented in this encounter [facility] 11-02-2022 Progress note Note Date/Time November 02, 2022 10:01[facility] [place] at [address] [address] Hem/Onc Follow Up Note - OP Signed Patient: Nuvia Martin MR#: [id number] : 1945 Acct:[id number] Age/Sex: 77 / F Type: REG RCR [...] IV x 2 doses: 01/28/2022 and 02/04/2022 [facility] - Medical History Medical History: Medical [...] (Verified 11/02/22 09:45) Diarrhea bacitracin [From Neosporin (lht-xzr-ygtpv)] Adverse Reaction (Verified 11/02/22 09:45) Blister contact metal agent Adverse Reaction (Verified 11/02/22 09:45) Rash neomycin [From Neosporin (qgq-ykv-hkqfg)] Adverse Reaction (Verified 11/02/22 09:45) Blister petrolatum,white [From Petroleum Jelly] Adverse Reaction (Verified 11/02/22 09:45) Blister polymyxin B [From Neosporin (rdb-yrn-pxffu)] Adverse Reaction (Verified 11/02/2308:45) Blister Home Medications [...] PO QNOON 12/17/19 [History Confirmed 11/02/22] omega 8-iwr-eeb-fish oil 1,000 mg (120 mg-180 mg) capsule [...] % (Auto) 60.6, Lymph % (Auto) 26.9, Howard % (Auto) 9.5, Eos % (Auto) 1.7, Baso % (Auto) 1.3, Nucleat RBC Rel Count 0.2, Neut # (Auto) 3.8, Lymph # (Auto) 1.7, Howard # (Auto) 0.6, Eos # (Auto) 0.1, [...] for coordination of care (as documented) and qacf-vj-mtro counseling of patient and/or family. Dictated By: Taylor Tijerina APRN DD/ 1000 Signed By: <Electronically signed by CARMEAL Tijerina> 11/02/22 1002 [facility] Work Phone: 1(183) 197-737503-28-2023 Progress note Author Taylor Tijerina [facility] August 10, 2022 11:00am Note Date/Time July 30, 2022 11: 10am [facility] [place] [address] Hem/Onc Follow Up Note - OP Signed Patient: Nuvia Martin MR#: [id number] : 1945 Acct:[id number] Age/Sex: 77 / F Type: REG RCR [...] sat low at 15.4% and ferritin 27.4 [facility] - Medical History Medical History: Medical [...] (Verified 07/30/22 10:44) Diarrhea bacitracin [From Neosporin (rpm-swd-jnyck)] Adverse Reaction (Verified 07/30/22 10:44) Blister contact metal agent Adverse Reaction (Verified 07/30/22 10:44) Rash neomycin [From Neosporin (olg-sxq-bqstr)] Adverse Reaction (Verified 07/30/22 10:44) Blister petrolatum,white [From Petroleum Jelly] Adverse Reaction (Verified 07/30/22 10:44) Blister polymyxin B [From Neosporin (ife-vns-xulpj)] Adverse Reaction (Verified 07/30/2309:44) Blister Home Medications [...] PO QNOON 12/17/19 [History Confirmed 07/30/22] omega 6-djs-wnw-fish oil 1,000 mg (120 mg-180 mg) capsule [...] for coordination of care (as documented) and yvlk-oe-anwe counseling of patient and/or family. Dictated By: Taylor Tijerina APRN DD/ 1110 Signed By: <Electronically signed by CARMELA Tijerina> 08/10/22 1100 [facility] Work Phone: 1(168) 265-723512-12-2022 Progress note Author Emily Laronvanessa [facility] April 26, 2022 3:23pm Note Date/Time April 26, 2022 3:16pm [facility] at [address] [address] Hem/Onc Follow Up Note - OP Signed Patient: Nuvia Martin MR#: [id number] : 1945 Acct:[id number] Age/Sex: 76 / F Type: REG RCR [...] history of asthma, hives, eczema or rhinitis. [facility] - Medical History Medical History: Medical [...] (Verified 04/26/22 09:36) Diarrhea bacitracin [From Neosporin (oef-jdn-bmour)] Adverse Reaction (Verified 04/26/22 09:36) Blister contact metal agent Adverse Reaction (Verified 04/26/22 09:36) Rash neomycin [From Neosporin (kht-mza-wksvf)] Adverse Reaction (Verified 04/26/22 09:36) Blister petrolatum,white [From Petroleum Jelly] Adverse Reaction (Verified 04/26/22 09:36) Blister polymyxin B [From Neosporin (bhf-hvc-cefkq)] Adverse Reaction (Verified 04/26/2209:36) Blister Home Medications [...] PO QNOON 12/17/19 [History Confirmed 04/26/22] omega 9-lsj-kyy-fish oil 1,000 mg (120 mg-180 mg) capsule [...] 2.5 mcg-olodaterol 2.5 mcg/actuation mist for inhalation (CallAroundolto Respimat) 2 puff inhalation QHS 09/18/20 [History [...] % (Auto) 68.2, Lymph % (Auto) 20.8, Howard % (Auto) 6.9, Eos % (Auto) 3.3, Baso % (Auto) 0.8, Nucleat RBC Rel Count 0.1, Neut # (Auto) 4.7, Lymph # (Auto) 1.4, Howard # (Auto) 0.5, Eos # (Auto) 0.2, [...] for coordination of care (as documented) and gcys-pl-xfeo counseling of patient and/or family. Dictated By: Emily Degroot APRN DD/ 151 Signed By: <Electronically signed by CARMELA Degroot> 04/26/22 1523 [facility] Work Phone: [phone]) 432-144410-10-2022 Progress note Author Marisabel Noel [facility] February 22, 2022 12:49pm Note Date/Time February 22, 2022 1 2:45pm [facility] [place] [address] Hem/Onc Follow Up Note - OP Signed Patient: Nuvia Martin MR#: [id number] : 1945 Acct:[id number] Age/Sex: 76 / F Type: REG RCR [...] history of asthma, hives, eczema or rhinitis. [facility] - Medical History Medical History: Medical [...] (Verified 02/22/22 11:05) Diarrhea bacitracin [From Neosporin (xgq-klq-xabkz)] Adverse Reaction (Verified 02/22/22 11:05) Blister contact metal agent Adverse Reaction (Verified 02/22/22 11:05) Rash neomycin [From Neosporin (hno-hmt-jsmsa)] Adverse Reaction (Verified 02/22/22 11:05) Blister petrolatum,white [From Petroleum Jelly] Adverse Reaction (Verified 02/22/22 11:05) Blister polymyxin B [From Neosporin (eed-llv-bqmgb)] Adverse Reaction (Verified 02/22/2211:05) Blister Home Medications [...] PO QNOON 12/17/19 [History Confirmed 02/22/22] omega 5-ako-nfq-fish oil 1,000 mg (120 mg-180 mg) capsule [...] % (Auto) N/A, Lymph % (Auto) N/A, Howard % (Auto) N/A, Eos % (Auto) N/A,Baso % (Auto) N/A, Neut # (Auto) N/A, Lymph # (Auto) N/A, Howard # (Auto) N/A, Eos# (Auto) N/A, Baso [...] for coordination of care (as documented) and mdus-yq-wior counseling of patient and/or family. Dictated By: Marisabel Noel MD DD/ 1247 Signed By: <Electronically signed by Marisabel Noel MD> 02/22/22 1243 [facility] Work Phone: [phone]) 981-229810-05-2022 History of Present illness Narrative* Cassidy Julio MD - 02/17/2022 9:17 AM EDT Images from the original note were not included. EMERGENCY TRIAGE, TREAT AND TRANSPORT (ET3) DOCUMENTATION OF TELEHEALTH VISIT Date / Time: 02/17/2022916 Name: Nuvia Martin : 1945 SSN: [id number] EMS Agency: [facility] [x] Verbal consent obtained [] [...] by: Cassidy Julio MD documented in this [id number] Consult note Author Maciel Sofia [facility] January 19, 2022 2:52pm Note Date/Time January 12, 2022 12 :54pm [facility] [place] [id number] Hem/Onc Consult Note - OP Signed Patient: Nuvia Martin MR#: [id number] : 1945 Acct:[id number] Age/Sex: 76 / F Type: REG RCR [...] Unable to locate recent iron studies from [facility]. She will have a colonoscopy [...] fevers, chills, sweats, or unintentional weight loss. [facility] - Medical History Medical History: Medical [...] (Verified 01/12/22 11:14) Diarrhea bacitracin [From Neosporin (ybb-ppv-vpwle)] Adverse Reaction (Verified 01/12/22 11:14) Blister contact metal agent Adverse Reaction (Verified 01/12/22 11:14) Rash neomycin [From Neosporin (ifm-lrb-aymlb)] Adverse Reaction (Verified 01/12/22 11:14) Blister petrolatum,white [From Petroleum Jelly] Adverse Reaction (Verified 01/12/22 11:14) Blister polymyxin B [From Neosporin (nok-ifm-niukr)] Adverse Reaction (Verified 01/12/2211:14) Blister Home Medications [...] PO QNOON 12/17/19 [History Confirmed 01/12/22] omega 2-xro-pmn-fish oil 1,000 mg (120 mg-180 mg) capsule [...] for coordination of care (as documented) and gges-st-opdn counseling of patient and/or family. Dictated By: Taylor Tijerina APRN DD/ 1241 Signed By: <Electronically signed by CARMELA Tijerina> 01/12/22 1403 <Electronically signed by Maciel Sofia II, DO> 01/19/22 1452 [facility] Work Phone: [phone]) [phone] NotePROCEDURE: XR ELBOW RT 2V HISTORY: Bone injury ; acute elbow pain after falling COMPARISON: None. FINDINGS: BONES:No fracture, acute abnormality, or significant arthropathy. SOFT TISSUES:Soft tissue swelling posterior to the proximal forearm. EFFUSION:None visible. OTHER: Negative. IMPRESSION: 1. No acute bone abnormality or joint effusion. Electronically authenticated by: GINGER BROOKS Date: 2022-01-04 13:57[facility]10-12-2021 Evaluation note* Encounter Date Diagnosis Assessment [...] readiness for smoking cessation at this time. [employer] Other Evaluation note* Diagnosis Onset Date Resolution Status Iron deficiency anemia acute [facility] Work Phone: Evaluation note* Diagnosis Fall, initial encounter- Primary [facility] Diagnosis Acute bilateral low back pain with bilateral sciatica- Primary documented in this encounter [facility]* Diagnosis Acute bilateral low back pain with sciatica, sciatica laterality unspecified- Primary Lumbar spondylosis Lumbosacral spondylosis without myelopathy Bilateral hip pain Pain in joint, pelvic region and thigh documented in this encounter [facility]* Diagnosis Acute bilateral low back pain with sciatica, sciatica laterality unspecified- Primary Lumbar spondylosis Lumbosacral spondylosis without myelopathy Bilateral hip pain Pain in joint, pelvic region and thigh documented in this encounter [facility] HealthcareEvaluation noteNo assessment information available[facility] Work Phone: Evaluation note* Diagnosis Other insomnia documented in this encounter [facility] Healthcare[facility] note* Diagnosis Acute bilateral low [...] (CMS/HCC) Other insomnia documented in this encounter [facility]* Diagnosis Acute bilateral low [...] polyneuropathy, with long-term current use of insulin ([facility]) documented in this encounter [facility]* Diagnosis Essential hypertension ([facility]) Unspecified essential hypertension documented in this encounter [facility]* Diagnosis Acute bilateral low back pain with sciatica, sciatica laterality unspecified- Primary Type 2 diabetes mellitus with diabetic polyneuropathy, with long-term current use of insulin (CMS/[facility]) Lumbar spondylosis Lumbosacral spondylosis without myelopathy Lumbar adjacent segment disease with spondylolisthesis- Primary Acute bilateral low back pain with bilateral sciatica Type 2 diabetes mellitus with diabetic polyneuropathy, with long-term current use of insulin (CMS/[facility]) Bilateral carotid artery stenosis Occlusion and stenosis of carotid artery without mention of cerebral infarction Claustrophobia (CMS/[facility]) Other isolated or specific phobias Type 2 diabetes mellitus with diabetic peripheral angiopathy without gangrene, without long-term current use of insulin (CMS/[facility]) Hypervitaminosis B6- Primary Other hyperalimentation Acute bilateral low back pain with bilateral sciatica Lumbar adjacent segment disease with spondylolisthesis Lumbar spondylosis Lumbosacral spondylosis without myelopathy Stenosis of carotid artery, unspecified laterality Lumbar paraspinal muscle spasm Other symptoms referable to back Carpal tunnel syndrome, bilateral Carpal tunnel syndrome Migraine without aura and without status migrainosus, not intractable (CMS/[facility]) OLIVA (obstructive sleep apnea) Obstructive sleep apnea (adult) (pediatric) Routine general medical examination at health care facility- Primary Routine general medical examination at a health care facility Type 2 diabetes mellitus with diabetic peripheral angiopathy without gangrene, without long-term current use of insulin ([facility]/HCC) Peripheral vascular disease, unspecified (CMS/HCC) Peripheral vascular disease, unspecified Heart failure, unspecified (CMS/HCC) Heart failure, unspecified Epilepsy, unspecified, not intractable, without status epilepticus (CMS/[facility]) Other secondary pulmonary hypertension (CMS/[facility]) Atherosclerosis of aorta ([facility]) Atherosclerosis of aorta Medicare annual wellness visit, subsequent Diabetes mellitus with peripheral vascular disease ([facility]) Type 2 diabetes mellitus with diabetic polyneuropathy, with long-term current use of insulin (CMS/HCC)- Primary Mixed hyperlipidemia (CMS/[facility]) Mixed hyperlipidemia Agitation states as acute reaction to exceptional (gross) stress Predominant psychomotor disturbance as reaction to stress Essential hypertension ([facility]) Unspecified essential hypertension Other insomnia Hypertensive emergency ([facility]) documented in this encounter [facility]* Diagnosis Acute bilateral low back pain with sciatica, sciatica laterality unspecified- Primary Type 2 diabetes mellitus with diabetic polyneuropathy, with long-term current use of insulin (/[facility]) Lumbar spondylosis Lumbosacral spondylosis without myelopathy Lumbar adjacent segment disease with spondylolisthesis- Primary Acute bilateral low back pain with bilateral sciatica Type 2 diabetes mellitus with diabetic polyneuropathy, with long-term current use of insulin (/[facility]) Bilateral carotid artery stenosis Occlusion and stenosis of carotid artery without mention of cerebral infarction Claustrophobia (/[facility]) Other isolated or specific phobias Type 2 diabetes mellitus with diabetic peripheral angiopathy without gangrene, without long-term current use of insulin (/[facility]) Hypervitaminosis B6- Primary Other hyperalimentation Acute bilateral [...] (adult) (pediatric) Routine general medical examination at [facility] care facility- Primary Routine general medical examination at a [facility] facility Type 2 diabetes mellitus with [...] subsequent Diabetes mellitus with peripheral vascular disease (CMS/[facility]) Type 2 diabetes mellitus with diabetic polyneuropathy, with long-term current use of insulin (CMS/HCC)- Primary Mixed hyperlipidemia (CMS/HCC) Mixed hyperlipidemia Agitation states as acute reaction to exceptional (gross) stress Predominant psychomotor disturbance as reaction to stress Essential hypertension (CMS/HCC) Unspecified essential hypertension Other insomnia Hypertensive emergency (/[facility]) Essential hypertension (/[facility]) Unspecified essential hypertension documented in this encounter [facility] Healthcare[facility]* Diagnosis Acute bilateral low back pain with sciatica, sciatica laterality unspecified- Primary Type 2 diabetes mellitus with diabetic polyneuropathy, with long-term current use of insulin (/[facility]) Lumbar spondylosis Lumbosacral spondylosis without myelopathy Lumbar adjacent segment disease with spondylolisthesis- Primary Acute bilateral low back pain with bilateral sciatica Type 2 diabetes mellitus with diabetic polyneuropathy, with long-term current use of insulin (/[facility]) Bilateral carotid artery stenosis Occlusion and stenosis of carotid artery without mention of cerebral infarction Claustrophobia (/[facility]) Other isolated or specific phobias Type 2 diabetes mellitus with diabetic peripheral angiopathy without gangrene, without long-term current use of insulin (/[facility]) Hypervitaminosis B6- Primary Other hyperalimentation Acute bilateral [...] Epilepsy, unspecified, not intractable, without status epilepticus (CMS/[facility]) Other secondary pulmonary hypertension (CMS/[facility]) Atherosclerosis of aorta (CMS/[facility]) Atherosclerosis of aorta Medicare annual wellness visit, subsequent Diabetes mellitus with peripheral vascular disease (/[facility]) Type 2 diabetes mellitus with diabetic polyneuropathy, with long-term current use of insulin (/[facility])- Primary Mixed hyperlipidemia (/[facility]) Mixed hyperlipidemia Agitation states as acute reaction to exceptional (gross) stress Predominant psychomotor disturbance as reaction to stress Essential hypertension (CMS/[facility]) Unspecified essential hypertension Other insomnia Hypertensive emergency ([facility]) Other insomnia documented in this encounter [facility] Diagnosis Acute bilateral low back pain with sciatica, sciatica laterality unspecified- Primary Type 2 diabetes mellitus with diabetic polyneuropathy, with long-term current use of insulin (/[facility]) Lumbar spondylosis Lumbosacral spondylosis without myelopathy Lumbar adjacent segment disease with spondylolisthesis- Primary Acute bilateral low back pain with bilateral sciatica Type 2 diabetes mellitus with diabetic polyneuropathy, with long-term current use of insulin (/[facility]) Bilateral carotid artery stenosis Occlusion and stenosis of carotid artery without mention of cerebral infarction Claustrophobia ([facility]) Other isolated or specific phobias Type 2 diabetes mellitus with diabetic peripheral angiopathy without gangrene, without long-term current use of insulin (/[facility]) Hypervitaminosis B6- Primary Other hyperalimentation Acute bilateral low back pain with bilateral sciatica Lumbar adjacent segment disease with spondylolisthesis Lumbar spondylosis Lumbosacral spondylosis without myelopathy Stenosis of carotid artery, unspecified laterality Lumbar paraspinal muscle spasm Other symptoms referable to back Carpal tunnel syndrome, bilateral Carpal tunnel syndrome Migraine without aura and without status migrainosus, not intractable (CMS/[facility]) OLIVA (obstructive sleep apnea) Obstructive sleep apnea (adult) (pediatric) Routine general medical examination at health care facility- Primary Routine general medical examination at a health care facility Type 2 diabetes mellitus with diabetic peripheral angiopathy without gangrene, without long-term current use of insulin (CMS/[facility]) Peripheral vascular disease, unspecified (CMS/HCC) Peripheral vascular disease, unspecified Heart failure, unspecified (CMS/HCC) Heart failure, unspecified Epilepsy, unspecified, not intractable, without status epilepticus Other secondary pulmonary hypertension Atherosclerosis of aorta ([facility]/HCC) Atherosclerosis of aorta Medicare annual wellness visit, subsequent Diabetes mellitus with peripheral vascular disease ([facility]) Type 2 diabetes mellitus with diabetic polyneuropathy, with long-term current use of insulin (/HCC)- Primary Mixed hyperlipidemia (/HCC) Mixed hyperlipidemia Agitation states as acute reaction to exceptional (gross) stress Predominant psychomotor disturbance as reaction to stress Essential hypertension (/) Unspecified essential hypertension Other insomnia Hypertensive emergency (/[facility]) Other insomnia documented in this encounter [facility]* Diagnosis Acute bilateral low back pain with sciatica, sciatica laterality unspecified- Primary Type 2 diabetes mellitus with diabetic polyneuropathy, with long-term current use of insulin (/) Lumbar spondylosis Lumbosacral spondylosis without myelopathy Lumbar adjacent segment disease with spondylolisthesis- Primary Acute bilateral low back pain with bilateral sciatica Type 2 diabetes mellitus with diabetic polyneuropathy, with long-term current use of insulin (/[facility]) Bilateral carotid artery stenosis Occlusion and stenosis of carotid artery without mention of cerebral infarction Claustrophobia (/[facility]) Other isolated or specific phobias Type 2 diabetes mellitus with diabetic peripheral angiopathy without gangrene, without long-term current use of insulin (/[facility]) Hypervitaminosis B6- Primary Other hyperalimentation Acute bilateral low back pain with bilateral sciatica Lumbar adjacent segment disease with spondylolisthesis Lumbar spondylosis Lumbosacral spondylosis without myelopathy Stenosis of carotid artery, unspecified laterality Lumbar paraspinal muscle spasm Other symptoms referable to back Carpal tunnel syndrome, bilateral Carpal tunnel syndrome Migraine without aura and without status migrainosus, not intractable (/[facility]) OLIVA (obstructive sleep apnea) Obstructive sleep apnea [...] Other secondary pulmonary hypertension Atherosclerosis of aorta ([facility]/HCC) Atherosclerosis of aorta Medicare annual wellness visit, [...] bruits Other insomnia documented in this encounter [facility] Healthcare[facility] note* Diagnosis Acute bilateral low [...] Unspecified essential hypertension documented in this encounter [facility]* Diagnosis Acute bilateral low [...] History pgeisert Hospitalization History ACUTE DELIRIUM; 10/02/20 3Scan Other Progress note Author [facility] November 02, 2022 10:02am Note Date/Time November 02, 2022 10:0 1am [facility] [place] [address] Hem/Onc Follow Up Note - OP Signed Patient: Nuvia Martin MR#: [id number] : 1945 Acct:[id number] Age/Sex: 77 / F Type: REG RCR [...] IV x 2 doses: 01/28/2022 and 02/04/2022 [facility] - Medical History Medical History: Medical [...] (Verified 11/02/22 09:45) Diarrhea bacitracin [From Neosporin (bsn-cjq-etjar)] Adverse Reaction (Verified 11/02/22 09:45) Blister contact metal agent Adverse Reaction (Verified 11/02/22 09:45) Rash neomycin [From Neosporin (cia-cbz-adjbh)] Adverse Reaction (Verified 11/02/22 09:45) Blister petrolatum,white [From Petroleum Jelly] Adverse Reaction (Verified 11/02/22 09:45) Blister polymyxin B [From Neosporin (usb-lot-wuhmq)] Adverse Reaction (Verified 11/02/2308:45) Blister Home Medications [...] PO QNOON 12/17/19 [History Confirmed 11/02/22] omega 1-oet-ucl-fish oil 1,000 mg (120 mg-180 mg) capsule [...] % (Auto) 60.6, Lymph % (Auto) 26.9, Howard % (Auto) 9.5, Eos % (Auto) 1.7, Baso % (Auto) 1.3, Nucleat RBC Rel Count 0.2, Neut # (Auto) 3.8, Lymph # (Auto) 1.7, Howard # (Auto) 0.6, Eos # (Auto) 0.1, [...] for coordination of care (as documented) and qosf-eh-qwsc counseling of patient and/or family. Dictated By: Taylor Tijerina APRN DD/ 1000 Signed By: <Electronically signed by CARMELA Tijerina> 11/02/22 1002 [facility] Work Phone: Progress note Author Taylor Tijerina [facility] February 01, 2023 11:23am Note Date/Time February 01, 2023 11:04am [facility] [place] [address] Hem/Onc Follow Up Note - OP Signed Patient: Nuvia Martin MR#: [id number] : 1945 Acct:[id number] Age/Sex: 77 / F Type: REG RCR [...] for coordination of care (as documented) and naqi-bl-pbij counseling of patient and/or family. [facility] - Medical History Medical History: Medical [...] % (Auto) 61.7, Lymph % (Auto) 26.2, Howard % (Auto) 9.2, Eos % (Auto) 2.0, Baso % (Auto) 0.9, Nucleat RBC Rel Count 0.1, Neut # (Auto) 4.2, Lymph # (Auto) 1.8, Howard # (Auto) 0.6, Eos # (Auto) 0.1, Baso # (Auto) 0.1 - Home Medications and Allergies Allergies/Adverse Reactions: Allergies cimetidine [From Tagamet] Allergy (Verified 02/01/23 10:56) Diarrhea bacitracin [From Neosporin (vea-ekx-hihtn)] Adverse Reaction (Verified 02/01/23 10:56) Blister contact metal agent Adverse Reaction (Verified 02/01/23 10:56) Rash neomycin [From Neosporin (kcv-ida-ybbqd)] Adverse Reaction (Verified 02/01/23 10:56) Blister petrolatum,white [From Petroleum Jelly] Adverse Reaction (Verified 02/01/23 10:56) Blister polymyxin B [From Neosporin (iix-faw-ivkbg)] Adverse Reaction (Verified 02/01/2310:56) Blister Home Medications: [...] PO QNOON 12/17/19 [History Confirmed 02/01/23] omega 2-twr-wwi-fish oil 1,000 mg (120 mg-180 mg) capsule [...] <Electronically signed by CARMELA Tijerina> 02/01/23 1123 [facility] Work Phone: Reason for referral (narrative)* Consultation (Routine) - Pending Review Specialty Diagnoses / Procedures Referred By Contac t Referred To Contact Pain Medicine Diagnoses Lumbar spondylosis 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 claudication Procedures [place] OFFICE/OUTPATIENT NEW HIGH MDM 60 MINUTES Wily Prado MD [address] [facility] [address] [place] [address] Danitza Murray MD [address] [place] [address] Referral ID Status Reason Start Date Expiration Date Visits Requested Visits Authorized [id number] Pending Review Specialty Services Required 01/17/2024 07/15/2024 [...] section and content) DATE CREATED AUTHOR 10/04/2021 [facility] dical Specialist DATE CREATED AUTHOR AUTHOR'S ORGANIZ ATION 01/25/2022 [facility] DATE CREATED AUTHOR AUTHOR'S ORGANIZ ATION 02/23/2022 [facility] DATE CREATED AUTHOR AUTHOR'S ORGANIZ ATION 03/09/2024 [facility] DATE CREATED AUTHOR AUTHOR'S ORGANIZ ATION 05/13/2024 [facility] DATE CREATED AUTHOR AUTHOR'S ORGANIZ ATION 10/23/2024 [facility] EPIC DATE CREATED AUTHOR AUTHOR'S ORGANIZ ATION 01/12/2025 [facility] REASON FOR VISIT (unrecogniz ed section and content) Reason Comments Fall Reason Onset Date Comments Med Refill 06/16/2023 [facility] [place] Specialty Diagnoses / Procedures Referred By David chin Referred To Contact Physical Therapy Diagnoses Acute bilateral low back pain with sciatica, sciatica laterality unspecified Lumbar spondylosis Procedures [place] OFFICE/OUTPATIENT NEW HIGH MDM 60 MINUTES Wily Prado MD [address] [facility] [address] [place] [address] Som Sheffield, PT [address] [facility] [address] [place] [address] Referral ID Status Reason Start Date Expiration Date Visits Requested Visits Authorized [id number] Authorized Specialty Services Required 3 11/06/2023 10 10 Reason Onset Date Comments Med Refill 02/15/2024 Reason Onset Date Comments Med Refill 03/20/2024 Reason Onset Date Comments Med Refill 03/26/2024 Specialty Diagnoses / Procedures Referred By Contac t Referred To Contact Physical Therapy Diagnoses Muscle spasm of back lumbar paraspinal muscle spasms Procedures consult and treat Logan Kaur MD [address] [facility] [address] [place] [address] Jalyn Guan, PAVEL Referral ID Status Reason Start Date Expiration Date Visits Requested Visits Authorized [id number] Authorized Consult and Treat 12/20/2023 06/17/2024 15 [...] Active Jesse Tran MD Attending Provider Active Sourcing Consultant Relationship Specialty Start Date End Date Wily Prado MD [address] [facility] [address] [place] [address] PCP - ACO Reach 10/07/22 Wily Prado MD [address] [facility] [address] [place] [address] PCP - General Family Medicine 10/28/22 Sourcing Consultant Relationship Specialty Start Date End Date Wily Prado MD [address] [facility] [address] [place] [address] PCP - ACO Reach 10/07/22 Wily Prdao MD [address] [facility] [address] [place] [address] PCP - General Family Medicine 10/28/22 Sourcing Consultant Relationship Specialty Start Date End Date Wily Prado MD [address] [facility] [address] [place] [address] PCP - ACO Reach 10/07/22 Wily Prado MD [address] [facility] [address] [place] [address] PCP - General Family Medicine 10/28/22 Sourcing Consultant Relationship Specialty Start Date End Date Wily Prado MD [address] [facility] [address] [place] [address] PCP - ACO Reach 10/07/22 Wily Prado MD [address] [facility] [address] [place] [address] PCP - General Family Medicine 10/28/22 Sourcing Consultant Relationship Specialty Start Date End Date Wily Prado MD [address] [facility] [address] [place] [address] PCP - ACO Reach 10/07/22 Wily Prado MD [address] [facility] [address] [place] [address] PCP - General Family Medicine 10/28/22 Sourcing Consultant Relationship Specialty Start Date End Date Wily Prado MD [address] [facility] [address] [place] [address] PCP - ACO Reach 10/07/22 Wily Prado MD [address] [facility] [address] [place] [address] PCP - General Family Medicine 10/28/22 Sourcing Consultant Relationship Specialty Start Date End Date Wily Prado MD [address] [facility] [address] [place] [address] PCP - ACO Reach 10/07/22 Wily Prado MD [address] [facility] [address] [place] [address] PCP - General Family Medicine 10/28/22 Sourcing Consultant Relationship Specialty Start Date End Date Wily Prado MD [address] [facility] [address] [place] [address] PCP - ACO Reach 10/07/22 Wily Prado MD [address] [facility] [address] [place] [address] PCP - General Family Medicine 10/28/22 Sourcing Consultant Relationship Specialty Start Date End Date Wily Prado MD [address] [facility] [address] [place] [address] PCP - ACO Reach 10/07/22 Wily Prado MD [address] [facility] [address] [place] [address] PCP - General Family Medicine 10/28/22 Sourcing Consultant Relationship Specialty Start Date End Date Wily Prado MD [address] [facility] [address] [place] [address] PCP - ACO Reach 10/07/22 Wily Prado MD [address] [facility] [address] [place] [address] PCP - General Family Medicine 10/28/22 Sourcing Consultant Relationship Specialty Start Date End Date Wily Prado MD [address] [facility] [address] [place] [address] PCP - ACO Reach 10/07/22 Wily Prado MD [address] [facility] [address] [place] [address] PCP - General Family Medicine 10/28/22 Sourcing Consultant Relationship Specialty Start Date End Date Wily Prado MD [address] [facility] [address] [place] [address] PCP - ACO Reach 10/07/22 Wily Prado MD [address] [facility] [address] [place] [address] PCP - General Family Medicine 10/28/22 Sourcing Consultant Relationship Specialty Start Date End Date Wily Prado MD [address] [facility] [address] [place] [address] PCP - ACO Reach 10/07/22 Wily Prado MD [address] [facility] [address] [place] [address] PCP - General Family Medicine 10/28/22 Sourcing Consultant Relationship Specialty Start Date End Date Wily Prado MD [address] [facility] [address] [place] [address] PCP - ACO Reach 10/07/22 Wily Prado MD [address] [facility] [address] [place] [address] PCP - General Family Medicine 10/28/22 Sourcing Consultant Relationship Specialty Start Date End Date Wily Prado MD [address] [facility] [address] [place] [address] PCP - ACO Reach 10/07/22 Wily Prado MD [address] [facility] [address] [place] [address] PCP - General Family Medicine 10/28/22 Sourcing Consultant Relationship Specialty Start Date End Date Wily Prado MD [address] [facility] [address] [place] [address] PCP - ACO Reach 10/07/22 Wily Prado MD [address] [facility] [address] [place] [address] PCP - General Family Medicine 10/28/22 Sourcing Consultant Relationship Specialty Start Date End Date Wily Prado MD [address] [facility] [address] [place] [address] PCP - ACO Reach 10/07/22 Wily Prado MD [address] [facility] [address] [place] [address] PCP - General Family Medicine 10/28/22 Sourcing Consultant Relationship Specialty Start Date End Date Wily Prado MD [address] [facility] [address] [place] [address] PCP - ACO Reach 10/07/22 Wliy Prado MD [address] [facility] [address] [place] [address] PCP - General Family Medicine 10/28/22 Sourcing Consultant Relationship Specialty Start Date End Date Wily Prado MD [address] [facility] [address] [place] [address] PCP - ACO Reach 10/07/22 Wily Prado MD [address] [facility] [address] [place] [address] PCP - General Family Medicine 10/28/22 Sourcing Consultant Relationship Specialty Start Date End Date Wily Prado MD [address] [facility] [address] [place] [address] PCP - ACO Reach 10/07/22 Wily Prado MD [address] [facility] [address] [place] [address] PCP - General Family Medicine 10/28/22 Sourcing Consultant Relationship Specialty Start Date End Date Wily Prado MD [address] [facility] [address] [place] [address] PCP - ACO Reach 10/07/22 Wily Prado MD [address] [facility] [address] [place] [address] PCP - General Family Medicine 10/28/22 Sourcing Consultant Relationship Specialty Start Date End Date Wily Prado MD [address] [facility] [address] [place] [address] PCP - ACO Reach 10/07/22 Wily Prado MD [address] [facility] [address] [place] [address] PCP - General Family Medicine 10/28/22 Sourcing Consultant Relationship Specialty Start Date End Date Wily Prado MD [address] [facility] [address] [place] [address] PCP - ACO Reach 10/07/22 Wily Prado MD [address] [facility] [address] [place] [address] PCP - General Family Medicine 10/28/22 Goals [...] BE BASED ON THE PRIMARY CLINICAL RECORDS. [facility] [employer] [facility]. provides no warranty or guarantee of the accuracy or completeness of information in this document.
[2025-01-28 12:12] VITALS: PULSE 68; O2SAT 94
[2025-01-28] MEDS: BUPIVACAINE HCL 0.25% PF 25 MG/10 ML VIAL INJ (12:13)
[2025-01-28] MEDS: 0.9 % SODIUM CHLORIDE 10 ML SYRINGE - SALINE FLUSH INJ (12:13)
[2025-01-28] MEDS: LIDOCAINE HCL 2% 400 MG/20 ML MDV 3 ML INJ (12:13)
[2025-01-28] MEDS: DEXAMETHASONE SOD PHOS 10 MG/ML VIAL INJ (12:13)
[2025-01-28 12:14] VITALS: BP 177/81; BP 185/83; PULSE 68; O2SAT 91
--- NOTE | 2025-01-28 12:18 | W.PM.PROCNOT ---
Date of procedure: 01/28/25 Pre-op diagnosis: Pain due to lumbar stenosis with neurogenic claudication Post-op diagnosis: same as pre-op Procedure: Procedure: Bilateral L3-4 transforaminal epidural steroid injection Medications: Bupivacaine 0.25% 2cc, lidocaine 2% 1cc, dexamethasone 10mg The patient was seen and examined in the preoperative holding area.? Informed consent was obtained and placed on the chart.? Patient was brought to the medical procedure unit and placed in the prone position where a timeout was completed verifying the correct patient, procedure site, position, and planned special equipment using sterile aseptic technique.? Under direct fluoroscopic visualization a 25-gauge Quincke tipped spinal needle was advanced at level left L3-4 to the designated neural foramen where contrast dye was injected to show adequate spread.? There was no evidence of vascular or adverse uptake.? Epidural spread was appreciated.? The above-mentioned injectate was then placed in a 1.5 mL aliquot preceded by negative aspiration.? The needle was removed. The same procedure, at the same level, was completed on the opposite side. ? Patient was taken to the postprocedural recovery area and monitored for an appropriate length of time before found suitable for discharge in the accompaniment of a responsible adult. Anesthesia: Local Surgeon: Danitza Murray Pathology: none sent Condition: stable Disposition: no change
== END 2025-01-28 12:19 | disposition home or self-care (01) ==
LOC: SURGOUT 11:33
PROVIDERS: PCP Family Medicine; Visit Provider Anesthesiology
DX: M48.062 Spinal stenosis, lumbar region with neurogenic claudication (principal); M54.50 Low back pain, unspecified; E11.8 Type 2 diabetes mellitus with unspecified complications; Z79.84 Long term (current) use of oral hypoglycemic drugs
CPT/HCPCS: 36415; 64483; 82948; J0665; J1100

== ENCOUNTER 2025-02-07 08:32 | Outpatient (OUT) | payer MEDICARE, SELFPAY ==
--- OUTSIDE RECORDS SUMMARY | 2025-02-07 08:39 | XMS_ITS | Encounter Summary ---
Author Organization [facility] Address [address] [place] [address] Care Team Providers Care Aerospace Medicine Physician Name Role Phone Nohemy Guajardo MD Unavailable Nohemy Guajardo MD Primary Care Provider Madiha Busch RN Unavailable [phone] Encounter Details Date Type Department Care Team (Late Contact Info) Description 05/17/2023 Abstract [facility] [place] [facility] [address] [facility] [address] [place] [address] Nohemy Guajardo MD [address] [facility] [address] [place] [address] Social History Tobacco Use Types Packs/Day Years [...] 1:00 PM EST Office Visit [facility] [place] [facility] [address] [place] [address] [place] [address] Nohemy Guajardo MD [address] [facility] [address] [place] [address] documented as of this encounter Visit Diagnoses Not on filedocumented in this encounter Additional Health Concerns Assessment Noted Time PHQ-9 Depression Total Score: 5 12/28/19 23 8:00 AM EDT documented as of this encounter Care Teams Aerospace Medicine Physician Relationship Specialty Start Date End Date Nohemy Guajardo MD [address] [facility] [address] [place] [address] PCP - ACO Reach 10/07/22 Nohemy Guajardo MD [address] [facility] [address] [place] [address] PCP - General Family Medicine 10/28/22 Madiha Busch, ONIEL [address] [place] [address] Registered Nurse Family Medicine 01/29/25 01/31/25 documented as of this encounter
--- OUTSIDE RECORDS SUMMARY | 2025-02-07 08:39 | XMS_ITS | Encounter Summary ---
Author Organization [facility] Address [address] [place] [address] Care Team Providers Care Tennis Player Name Role Phone Nohemy Guajardo MD Unavailable Nohemy Guajardo MD Primary Care Provider [phone] Madiha Busch RN Unavailable Encounter Details Date Type Department Care Team (Late Contact Info) Description 05/17/2023 Abstract [facility] [place] O[facility] [address] [facility] [address] [place] [address] Nohemy Guajardo MD [address] [facility] [address] [place] [address] Social History Tobacco Use Types Packs/Day Years [...] [address] [place] [address] [place] [address] Nohemy Guajardo MD [address] [facility] [address] [place] [address] documented as of this encounter Visit Diagnoses Not on filedocumented in this encounter Additional Health Concerns Assessment Noted Time PHQ-9 Depression Total Score: 5 12/28/19 23 8:00 AM EDT documented as of this encounter Care Teams Tennis Player Relationship Specialty Start Date End Date Nohemy Guajardo MD [address] [facility] [address] [place] [address] PCP - ACO Reach 10/07/22 Nohemy Guajardo MD [address] [facility] [address] [place] [address] PCP - General Family Medicine 10/28/22 Madiha Busch, ONIEL [address] [place] [address] Registered Nurse Family Medicine 01/29/25 01/31/25 documented as of this encounter
--- OUTSIDE RECORDS SUMMARY | 2025-02-07 08:39 | XMS_ITS | Encounter Summary ---
Author Organization [facility] Address [address] [place] [address] Care Team Providers Care Retail Supervisor Name Role Phone Nohemy Guajardo MD Unavailable Nohemy Guajardo MD Primary Care Provider Madiha Busch RN Unavailable [phone] Encounter Details Date Type Department Care Team (Late Contact Info) Description 08/30/2023 Abstract [facility] [place] [facility] [address] [facility] [address] [place] [address] Nohemy Guajardo MD [address] [facility] [address] [place] [address] Social History Tobacco Use Types Packs/Day Years [...] [address] [place] [address] [place] [address] Nohemy Guajardo MD [address] [facility] [address] [place] [address] documented as of this encounter Visit Diagnoses Not on filedocumented in this encounter Additional Health Concerns Assessment Noted Time PHQ-9 Depression Total Score: 5 12/28/19 23 8:00 AM EDT documented as of this encounter Care Teams Retail Supervisor Relationship Specialty Start Date End Date Nohemy Guajardo MD [address] [facility] [address] [place] [address] PCP - ACO Reach 10/07/22 Nohemy Guajardo MD [address] [facility] [address] [place] [address] PCP - General Family Medicine 10/28/22 Madiha Busch, ONIEL [address] [place] [address] Registered Nurse Family Medicine 01/29/25 01/31/25 documented as of this encounter
--- OUTSIDE RECORDS SUMMARY | 2025-02-07 08:39 | XMS_ITS | Encounter Summary ---
Author Organization [facility] Address [address] [place] [address] Care Team Providers Care Electric Golf Cart Repairer Name Role Phone Nohemy Guajardo MD Unavailable Nohemy Guajardo MD Primary Care Provider Madiha Busch RN Unavailable Encounter Details Date Type Department Care Team (Late Contact Info) Description 07/03/2024 Abstract [facility] [place] Omal[facility] [address] [email or web address] 110 [place] [address] Nohemy Guajardo MD [address] [facility] 110 [place] [address] Social History Tobacco Use Types Packs/Day Years [...] [address] [place] [address] [place] [address] Nohemy Guajardo MD [address] [facility] 110 [place] [address] documented as of this encounter Visit Diagnoses Not on filedocumented in this encounter Additional Health Concerns Assessment Noted Time PHQ-9 Depression Total Score: 4 12/26/19 24 10:00 AM EDT documented as of this encounter Care Teams Electric Golf Cart Repairer Relationship Specialty Start Date End Date Nohemy Guajardo MD [address] [facility] 110 [place] [address] PCP - ACO Reach 10/07/22 Nhoemy Guajardo MD [address] [facility] 110 [place] [address] PCP - General Family Medicine 10/28/22 Madiha Busch, ONIEL [address] [place] [address] Registered Nurse Family Medicine 01/29/25 01/31/25 documented as of this encounter
--- OUTSIDE RECORDS SUMMARY | 2025-02-07 08:39 | XMS_ITS | Encounter Summary ---
Author Organization [facility] Address [address] [place] [address] Care Team Providers Care Printer Technician Name Role Phone Nohemy Guajardo MD Unavailable Nohemy Guajardo MD Primary Care Provider [phone] Madiha Busch RN Unavailable [phone] Encounter Details Date Type Department Care Team (Late Contact Info) Description 05/17/2023 Orders Only [facility] [place] Omal[facility] [address] [place] [address] [place] [address] A, Unknown Practice [address] [place] [address] Social History Tobacco Use Types Packs/Day Years [...] [place] Pearcence [address] [place] [address] [place] [address] Nohemy Guajardo MD [address] [address] documented as of this encounter Procedures Procedure [...] documented as of this encounter Care Teams Printer Technician Relationship Specialty Start Date End Date Nohemy Guajardo MD [address] [place] [address] PCP - ACO Reach 10/07/22 Nohemy Guajardo MD [address] [address] PCP - General Family Medicine 10/28/22 Madiha Busch, RN [address] [place] [address] Registered Nurse Family Medicine 01/29/25 01/31/25 documented as of this encounter
--- OUTSIDE RECORDS SUMMARY | 2025-02-07 08:39 | XMS_ITS | Encounter Summary ---
Author Organization [facility] Address [address] [place] [address] Care Team Providers Care Contact Center Team Lead Name Role Phone Nohemy Guajardo MD Unavailable Nohemy Guajardo MD Primary Care Provider Madiha Busch RN Unavailable [phone] Encounter Details Date Type Department Care Team (Late Contact Info) Description 05/17/2023 Abstract [facility] [place] Omal[facility] [address] [facility] 110 [place] [address] Nohemy Guajardo MD [address] [facility] 110 [place] [address] Social History Tobacco Use Types Packs/Day Years [...] [address] [place] [address] [place] [address] Nohemy Guajardo MD [address] [facility] 110 [place] [address] documented as of this encounter Visit Diagnoses Not on filedocumented in this encounter Additional Health Concerns Assessment Noted Time PHQ-9 Depression Total Score: 5 12/28/19 23 8:00 AM EDT documented as of this encounter Care Teams Contact Center Team Lead Relationship Specialty Start Date End Date Nohemy Guajardo MD [address] [facility] 110 [place] [address] PCP - ACO Reach 10/07/22 Nohemy Guajardo MD [address] [facility] 110 [place] [address] PCP - General Family Medicine 10/28/22 Madiha Busch, ONIEL [address] [place] [address] Registered Nurse Family Medicine 01/29/25 01/31/25 documented as of this encounter
--- OUTSIDE RECORDS SUMMARY | 2025-02-07 08:39 | XMS_ITS | Encounter Summary ---
Author Organization [facility] Address [address] [place] [address] Care Team Providers Care Strategic Planning Analyst Name Role Phone Nohemy Guajardo MD Unavailable Nohemy Guajardo MD Primary Care Provider [phone] Madiha Busch RN Unavailable Encounter Details Date Type Department Care Team (Late Contact Info) Description 09/16/2023 External Result Encounter [facility] External Department Unsolicited Nohemy Guajardo MD [address] [facility] 110 [place] [address] Social History Tobacco Use Types [...] Upcoming Encounters Date Type Department Care Team ([facility] Contact Info) Description 04/02/2025 1:00 PM EST Office Visit [facility] [place] Omal[facility] [address] [place] 110 [place] [address] Nohemy Guajardo MD 112 [facility] 110 [place] [address] documented as of this encounter Procedures Procedure [...] Latonya Riggs M.D.09/16/2023 10:57 AM Dictation Location: [facility]12 Transcribed By: [facility] 09/16/23 1057 Dictated By: Latonya Riggs MD 09/16/23 1046 Signed By: <Electronically signed by MD Latonya Riggs in OV> 09/16/23 1057 Narrative 09/16/2023 10:59 AM EDT [facility] [place] [address] [place] [address] XRay Report Signed Patient: Lovely Martin MR#: [id number] : 1945 Acct:[id number] Age/Sex: 78 / F ADM Date: 09/16/23 Loc: Room: Type: [facility] Attending Dr: Nohemy Guajardo MD Copies to: Nohemy Guajardo MD Ordering Provider: Nohemy Guajardo MD Date of Service: 09/16/23 MR/MR lumbar spine wo con: M51.36, M43.16 M54.42, M54.41 ([id number]) XR/XR pre/post mri xray: M54.42, M54.41, M51.36, [...] xray Procedure Note Radiology, Radiologist, - 09/16/2023 [facility] [place] [address] [place] [address] XRay Report Signed Patient: Lovely Martin AMR#: [id number] : 8Acct:[id number] Age/Sex: 78 / FADM Date: 09/16/23 Loc: Room:Type: [facility] Attending Dr: Nohemy Guajardo MD Copies to: Nohemy Guajardo MD Ordering Provider: Nohemy Guajardo MD Date of Service: 09/16/23 MR/MR lumbar spine wo con: M51.36, M43.16M54.42, M54.41 ([id number]) XR/XR pre/post mri xray: M54.42, M54.41, M51.36, [...] Latonya Riggs M.D.09/16/2023 10:57 AM Dictation Location: [place] [address] Transcribed By: [facility] 09/16/23 1057 Dictated By: Latonya Riggs [...] documented as of this encounter Care Teams Strategic Planning Analyst Relationship Specialty Start Date End Date Nohemy Guajardo MD [address] [place] [address] PCP - ACO Reach 10/07/22 Nohemy Guajardo MD 112 [facility] 110 [place] [address] PCP - General Family Medicine 10/28/22 Madiha Busch, RN [address] [place] [address] Registered Nurse Family Medicine 01/29/25 01/31/25 documented as of this encounter
--- OUTSIDE RECORDS SUMMARY | 2025-02-07 08:39 | XMS_ITS | Encounter Summary ---
Author Organization [facility] Address [address] [place] [address] Care Team Providers Care Irrigation Worker Name Role Phone Nohemy Guajardo MD Unavailable Nohemy Guajardo MD Primary Care Provider [phone] Madiha Busch RN Unavailable Encounter Details Date Type Department Care Team (Late Contact Info) Description 02/01/2023 Abstract [facility] [place] Omal[place] [address] [facility] 110 [place] [address] Nohemy Guajardo MD [address] [facility] 110 [place] [address] Social History Tobacco Use Types Packs/Day Years [...] Care Team ([facility] Contact Info) Description 04/02/2025 1:00 PM EST Office Visit [facility] [place] Pearcence [address] [place] [address] [place] [address] Nohemy Guajardo MD [address] [facility] 110 [place] [address] documented as of this encounter Visit Diagnoses Not on filedocumented in this encounter Additional Health Concerns Assessment Noted Time PHQ-9 Depression Total Score: 5 12/28/19 23 8:00 AM EDT documented as of this encounter Care Teams Irrigation Worker Relationship Specialty Start Date End Date Nohemy Guajardo MD [address] [facility] 110 [place] [address] PCP - ACO Reach 10/07/22 Nohemy Guajardo MD [address] [facility] 110 [place] [address] PCP - General Family Medicine 10/28/22 Madiha Busch, ONIEL [address] [place] [address] Registered Nurse Family Medicine 01/29/25 01/31/25 documented as of this encounter
--- OUTSIDE RECORDS SUMMARY | 2025-02-07 08:40 | XMS_ITS | Encounter Summary ---
Author Organization [facility] tem Address [id number] [address] [place] [address] Care Team Providers Care Film Coater Name Role Phone Nohemy Guajardo MD Primary Care Provider [phone] Encounter Details Date Type Department Care Team (Late st Contact Info) Description 03/03/2016 Refill [facility] [address] [place] [phone] Kristina Elizalde Social History Tobacco Use Types [...] on filedocumented in this encounter Care Teams Film Coater Relationship Specialty Start Date End [place] [address] PCP - General Family Medicine 11/15/19 documented as of this encounter
--- OUTSIDE RECORDS SUMMARY | 2025-02-07 08:40 | XMS_ITS | Encounter Summary ---
Author Organization [facility] Address [address] [place] [address] Care Team Providers Care Refractory Specialist Name Role Phone Nohemy Prado MD Unavailable Nohemy Prado MD Primary Care Provider [phone] Madiha Busch RN Unavailable Encounter Details Date Type Department Care Team (Late Contact Info) Description 08/13/2023 Clinisync Result Encounter [facility] External Department Unsolicited Nohemy Prado MD [address] [facility] 110 [place] [address] Social History Tobacco Use Types [...] Upcoming Encounters Date Type Department Care Team ([facility] Contact Info) Description 04/02/2025 1:00 PM EST [facility] [address] [place] [address] [place] [address] Nohemy Prado MD [address] [place] [address] documented as of this encounter Procedures Procedure Name Priority Date/Time Associated Diagnosis Comments XR LUMBAR SPINE 2 OR 3V 08/13/2023 6:43 AM EDT documented in this encounter Results * XR LUMBAR SPINE 2 OR 3V (08/13/2023 6:43 AM EDT) Anatomical Region Laterality Modality Radiographic Alice ging 08/13/2023 6:43 AM EDT Narrative 08/13/2023 6:46 AM EDT [address] [address] XRay Report Signed Patient: LOVLEY ABRAHAM MR#: [id number] : 1945 Acct:[id number] Age/Sex: 78 / F ADM Date: 08/12/23 Loc: RAD Attending Dr: NOHEMY PRADO Ordering Physician: NOHEMY PRADO Date of Service: 08/12/23 Procedure(s): XR lumbar spine 2-3V Accession Number(s): [id number] cc: NOHEMY PRADO [address] [address] Patient Name: LOVELY ABRAHAM MRN: [id number] date: 1945 Sex: F Assigned Patient Location: [facility] Current Patient Location: Accession/Order Number: [id number] Exam Date: 08/12/2023 14:38 Report Date: 08/13/2023 [...] M.D. Signed By: 08/13/2346 DD/ 2 TD/TT: Senior Abap Developer: Procedure Note Radiology, Radiologist, MD - 08/17/2023 [place] [address] XRay Report Signed Patient: LOVELY ABRAHAM AMR#: [id number] : 1945cct:[id number] Age/Sex: 78 / FADM Date: 08/12/23 Loc: RAD Attending Dr: NOHEMY PRADO Ordering Physician: NOHEMY PRADO Date of Service: 08/12/23 Procedure(s): XR lumbar spine 2-3V Accession Number(s): [id number] cc: NOHEMY PRADO [place] [id number] Patient Name: LOVELY ABRAHAM MRN: [id number] date: 1945 Sex: F Assigned Patient Location: [facility] Current Patient Location: Accession/Order Number: [id number] Exam Date: 08/12/2023 14:38 Report Date: 08/13/2023 [...] 06:43 Dictated By: Camacho Dumont M.D. Signed By:08/13/23645 DD/ 2 TD/TT: Senior Abap Developer: us Nohemy Prado MD IMG XR PROCEDURES Final Result documented in this encounter Visit Diagnoses Not on filedocumented in this encounter Additional Health Concerns Assessment Noted Time PHQ-9 Depression Total Score: 5 12/28/19 23 8:00 AM EDT documented as of this encounter Care Teams Refractory Specialist Relationship Specialty Start Date End Date Nohemy Prado MD [address] [facility] 110 [place] [address] PCP - ACO Reach 10/07/22 Nohemy Prado MD [address] [facility] 110 [place] [address] PCP - General Family Medicine 10/28/22 Madiha Busch, ONIEL [address] [facility] [place] [address] Registered Nurse Family Medicine 01/29/25 01/31/25 documented as of this encounter
--- OUTSIDE RECORDS SUMMARY | 2025-02-07 08:40 | XMS_ITS | Clinical Summary ---
Author Organization [employer] tem Address [id number] [address] [place] [address] Care Team Providers Care Forestry Crew Chief Name Role Phone Nohemy Guajardo MD Primary Care Provider Family History Medical History Relation Name Comments [...] (2 of 2) 01/02/20212020 COVID-19 Vaccine (4 2024-2 6 season) 2025 04/21/2021, 07/14/2020, 06/22/2020 Influenza Vaccine 01/14/2025 04/21/2021, 06/13/2009 Medical Devices Not on file Insurance [facility] MEDICARE Care Teams Forestry Crew Chief Relationship Specialty Start Date End Date Nohemy Guajardo MD [facility] [place] [address] PCP - General Family Medicine 11/15/19
--- OUTSIDE RECORDS SUMMARY | 2025-02-07 08:40 | XMS_ITS | Clinical Summary ---
Author Organization [facility] Address [address] [place] [address] Care Team Providers Care Chief Commercial Officer Name Role Phone Nohemy Guajardo MD Unavailable Nohemy Guajardo MD Primary Care Provider [phone] Allergies Active Allergy Reactions Criticality Noted Date [...] mouth 1 (one) time each day. Active [place]-3 Fatty Acids (Fish Oil) 1000 MG capsule [...] inhalerIndications :Chronic obstructive pulmonary disease, unspecified ([facility]) INHALE 2 PUFFS EVERY DAY 12 g 3 08/21/19 25 Active insulin pen needle (Droplet Pen [place]) 32G x 4 mm miscIndications:Ot her specified diabetes mellitus with other specified complication, unspecified whether gas reverser insulin use ([facility]) USE INSTRUCTED 300 each 3 08/21/19 25 Active OXcarbazepine (Trileptal) 300 MG tabletIndications: Other diabetic neurological complication associated with type 2 diabetes mellitus ([facility]) TAKE 1 TABLET IN THE MORNING AND [...] with long-term current use of insulin ([facility]) Inject 22 Units under the skin at bedtime 10/12/19 25 Active gabapentin (Neurontin) 600 MG tabletIndications: Type 2 diabetes mellitus with diabetic polyneuropathy, with long-term current use of insulin ([facility]) Take 1 tablet (600 mg) by mouth [...] bruits 10/11/2024 Routine general medical examination at [facility] 12/26/2023 Atherosclerosis of aorta 12/26/2023 Assessment [...] Care Team Description 12/22/2024 [facility] [place] [facility] [address] [facility] 110 [place] [address] Nohemy Guajardo MD Essential hypertension 12/17/2024 Abstract [facility] [place] [facility] [address] [facility] 110 [place] [address] Nohemy Guajardo MD 12/14/2024 Refill [facility] [place] [facility] [address] [facility] 110 [place] [address] Latonya Marie PA Other insomnia 12/14/2024 Abstract [facility] [place] [facility] [address] [facility] 110 [place] [address] Nohemy Guajardo MD 12/10/2024 Refill [facility] [place] [facility] [address] [facility] 110 [place] [address] Nohemy Guajardo MD Other insomnia 12/08/2024 Refill [facility] [place] [facility] [address] [facility] 110 [place] [address] Nohemy Guajardo MD Type 2 diabetes mellitus with diabetic polyneuropathy, with long-term current use of insulin ([facility]); Type 2 diabetes mellitus with diabetic peripheral angiopathy without gangrene, without long-term current use of insulin ([facility]) 12/03/2024 Abstract [facility] 112 [facility] 110 [place] [address] Nohemy Guajardo MD 11/18/2024 Refill [facility] [address] [place] [address] Nohemy Guajardo MD Essential hypertension 11/12/2024 Telephone [facility] 112 [facility] 110 [place] [address] Nohemy Guajardo MD 11/09/2024 Refill [facility] [address] [place] [address] Nohemy Guajardo MD Type 2 diabetes mellitus with diabetic polyneuropathy, with long-term current use of insulin ([facility]) 11/09/2024 Refill [facility] 112 [facility] 110 [place] [address] Nohemy Guajardo MD Other insomnia from Last 3 Months Immunizations Immunization Administration Dates Next Due Influenza, High Dose Seasonal, Preservative Free 01/06/2024,03/19/2022 Influenza, Recombinant, injectable, preservative free 04/21/2021 Influenza, Seasonal, Quadrivalent, Adjuvanted Novel [id number], preservative-free 06/13 Pneumococcal Conjugate PCV 13 11/07/2020 [...] PM EST Office Visit REN[facility] Omalley 112 [facility] 110 [place] [address] Nohemy Guajardo MD 112 [facility] 110 [place] [address] Health Maintenance Due Date Last Done Comments [...] Performing Organization Information Site ID: [id number] Name: [facility] Address: [address] [place] [address], [address] [place] [phone] Director: Дмитрий Mendoza MD us Nohemy Guajardo MD LAB URINE ORDERABLES Final Resul t [facility] * Colonoscopy (01/05/2022 12:00 PM EDT) Anatomical Region Laterality Modality Endoscopy 01/05/2022 12:0 0 PM EDT Narrative 01/05/2022 12:00 PM EDT PERFORMED AT [facility] LOCATION:[id number] Procedure Note CONVERSION, GENERIC - 09/29/2022 PERFORMED AT [facility] LOCATION:[id number] Jesse Rahman MD ENDOSCOPY PROCEDURE ORDERABL ES Final Result * OCC BLD IMMUNO SCREEN (11/10/2020) OCCULT BLOOD NEGATIVE NEGATIVE [facility] PERFORMING LAB: see note [facility] EXTER[facility] Comment:[address] Laboratory - Manager Contract Latonya Jarrett,[place] [address] ,Ext. [phone] 11/10/2020 Nohemy Guajardo MD EC LABS Final Result [facility] * Cologuard?? colon cancer screening [...] (Patricia Real al, N Engl J Med 2014;370(14):6250-4846) The normal value (reference range) for this assay is negative. COLOGUARD RE-SCREENING RECOMMENDATION: Periodic routine colorectal cancer screening is an important part of preventive healthcare for asymptomatic persons at average risk for colorectal cancer. Following a negative Cologuard result, the [place] Cancer Society and U.S. Multi-Society Task Force screening guidelines recommend a Cologuard re-screening interval of 3 years. References: [place] Cancer Society (ACS). Colorectal cancer prevention and early detection. [place], [place]: [place] Cancer Society; [updated 2015Sep 06]. https://www.cancer.org/cancer/uzkjw-entdwk-idgnmo/uvvfwrapz-ebrcwiyln-tmhjcys/ac s-rec ommendations.html. Accessed January 13, 2018; Dominic DK, Tamiko HARMON, Lance LOVE, Colorectal Cancer Screening: Recommendations for Physicians and Patients from the U.S. Multi-Society Task Force on Colorectal Cancer Screening, Am J Gastroenterology 2017; 112:4546-2967. TEST TYPE: Composite algorithmic analysis of stool [...] interval of every 3 years by the [place] Cancer Society and U.S. Multi-Society Task Force. [...] can be accessed at the following location: www.[employer].Deltagen/results. Additional description of the Cologuard test process, warnings and precautions can be found at www.cologuardtest.com. Rx only. 11/23/2019 Nohemy Guajardo MD LAB MOLECULAR DIAGNOSTICS ORDERA BLES Final Result [facility] from Last 3 Months or Most Recently Relevant to Health Maintenance Insurance MEDICARE [facility] Care Teams Chief Commercial Officer Relationship Specialty Start Date End Date Nohemy Guajardo MD [address] [facility] 110 [place] [address] PCP - ACO Reach 10/07/22 Nohemy Guajrado MD [address] [facility] 110 [place] [address] PCP - General Family Medicine 10/28/22
--- OUTSIDE RECORDS SUMMARY | 2025-02-07 08:40 | XMS_ITS | Encounter Summary ---
Author Organization [facility] Address [address] [place] [address] Care Team Providers Care Is Consultant Name Role Phone Nohemy Guajardo MD Unavailable Nohemy Guajardo MD Primary Care Provider [phone] Madiha Busch RN Unavailable Encounter Details Date Type Department Care Team (Late Contact Info) Description 01/05/2023 Orders Only [facility] [place] Omalley [address] [place] [address] [place] [address] A, Unknown Practice [address] [place] [address] Social History Tobacco Use Types Packs/Day [...] PM EST [facility] [place] [facility] [address] [place] [address] [place] [address] Nohemy Guajardo MD [address] [place] [address] documented as of this encounter Procedures Procedure [...] documented as of this encounter Care Teams Is Consultant Relationship Specialty Start Date End Date Nohmey Guajardo MD [address] [place] [address] PCP - ACO Reach 10/07/22 Nohemy Guajardo MD [address] [address] PCP - General Family Medicine 10/28/22 Madiha Busch, RN [address] [place] [address] Registered Nurse Family Medicine 01/29/25 01/31/25 documented as of this encounter
--- OUTSIDE RECORDS SUMMARY | 2025-02-07 08:40 | XMS_ITS | Encounter Summary ---
Author Organization [facility] Address [address] [place] [address] Care Team Providers Care Prevention Specialist Name Role Phone Nohemy Guajardo MD Unavailable Nohemy Guajardo MD Primary Care Provider [phone] Madiha Busch RN Unavailable [phone] Encounter Details Date Type Department Care Team (Late Contact Info) Description 01/06/2023 Orders Only [facility] [place] Omal[place] [address] [place] [address] [place] [phone] A, Unknown Practice [address] [place] [address] Social History Tobacco Use Types Packs/Day [...] PM EST Office [facility] [place] [facility] [address] [place] [address] [place] [phone] Nohemy Guajardo MD [address] [place] [address] documented as of this encounter Procedures Procedure [...] documented as of this encounter Care Teams Prevention Specialist Relationship Specialty Start Date End Date Nohemy Guajardo MD [address] [place] [address] PCP - ACO Reach 10/07/22 Nohemy Guajardo MD [address] [address] PCP - General Family Medicine 10/28/22 Madiha Busch, RN [address] [place] [address] Registered Nurse Family Medicine 01/29/25 01/31/25 documented as of this encounter
--- OUTSIDE RECORDS SUMMARY | 2025-02-07 08:40 | XMS_ITS | Encounter Summary ---
Author Organization [facility] Address [address] [place] [address] Care Team Providers Care Skin Toggler Name Role Phone Nohemy Guajardo MD Unavailable Nohemy Guajardo MD Primary Care Provider [phone] Madiha Busch RN Unavailable Encounter Details Date Type Department Care Team (Late Contact Info) Description 12/31/2022 Abstract [facility] [place] [address] [facility] 110 [place] [id number] Nohemy Guajardo MD [address] [facility] 110 [place] [address] Social History Tobacco Use Types Packs/Day Years [...] Care Team ([facility] [address] Contact Info) Description 04/02/2025 1:00 PM EST Office Visit [facility] [place] [address] [place] [address] [place] [address] Nohemy Guajardo MD [address] [facility] 110 [place] [address] documented as of this encounter Visit Diagnoses Not on filedocumented in this encounter Additional Health Concerns Assessment Noted Time PHQ-9 Depression Total Score: 5 12/28/19 23 8:00 AM EDT documented as of this encounter Care Teams Skin Toggler Relationship Specialty Start Date End Date Nohemy Guajardo MD [address] [facility] 110 [place] [address] PCP - ACO Reach 10/07/22 Nohemy Guajardo MD [address] [facility] 110 [place] [address] PCP - General Family Medicine 10/28/22 Madiha Busch, ONIEL [address] [place] [address] Registered Nurse Family Medicine 01/29/25 01/31/25 documented as of this encounter
--- OUTSIDE RECORDS SUMMARY | 2025-02-07 08:40 | XMS_ITS ---
Author Organization [facility] Address [address] [place] [address] Care Team Providers Care At Risk Specialist Name Role Phone Nohemy Guajardo MD Unavailable Nohemy Guajardo MD Primary Care Provider [phone] Chronic Care Management (CCM) Status:Closed (Closed) Start date:01/29/2025 End date:01/31/2025 Close reason:Unable to reach patient Overview Please assess for Care Management needs. Continued Care and Services Coordination
--- OUTSIDE RECORDS SUMMARY | 2025-02-07 08:40 | XMS_ITS | Encounter Summary ---
Author Organization [facility] Address [address] [place] [address] Care Team Providers Care Roofer Vinyl Coating Name Role Phone Nohemy Guajardo MD Unavailable Nohemy Guajardo MD Primary Care Provider [phone] Madiha Busch RN Unavailable [phone] Encounter Details Date Type Department Care Team (Late Contact Info) Description 01/05/2023 Abstract [facility] [place] [address] [facility] 110 [place] [address] Nohemy Guajardo MD [address] [facility] 110 [place] [address] Social History Tobacco Use Types Packs/Day Years [...] [address] [place] [address] [place] [address] Nohemy Guajardo MD [address] [facility] 110 [place] [address] documented as of this encounter Visit Diagnoses Not on filedocumented in this encounter Additional Health Concerns Assessment Noted Time PHQ-9 Depression Total Score: 5 12/28/19 23 8:00 AM EDT documented as of this encounter Care Teams Roofer Vinyl Coating Relationship Specialty Start Date End Date Nohemy Guajardo MD [address] [facility] 110 [place] [address] PCP - ACO Reach 10/07/22 Nohemy Guajardo MD [address] [facility] 110 [place] [address] PCP - General Family Medicine 10/28/22 Madiha Busch, ONIEL [address] [place] [address] Registered Nurse Family Medicine 01/29/25 01/31/25 documented as of this encounter
--- OUTSIDE RECORDS SUMMARY | 2025-02-07 08:40 | XMS_ITS | Encounter Summary ---
Author Organization [facility] Address [address] [place] [address] Care Team Providers Care Orthopaedic Surgeon Name Role Phone Nohemy Guajardo MD Unavailable Nohemy Guajardo MD Primary Care Provider [phone] Madiha Busch RN Unavailable [phone] Encounter Details Date Type Department Care Team (Late Contact Info) Description 12/28/2023 Abstract [facility] [place] [address] [facility] 110 [place] [address] Nohemy Guajardo MD [address] [facility] 110 [place] [address] Social History Tobacco Use Types Packs/Day Years [...] Upcoming Encounters Date Type Department Care Team ([facility] Contact Info) Description 04/02/2025 1:00 PM EST Office Visit [facility] [place] [facility] [address] [place] [address] [place] [address] Nohemy Guajardo MD [address] [facility] 110 [place] [address] documented as of this encounter Visit Diagnoses Not on filedocumented in this encounter Additional Health Concerns Assessment Noted Time PHQ-9 Depression Total Score: 4 12/26/19 24 10:00 AM EDT documented as of this encounter Care Teams Orthopaedic Surgeon Relationship Specialty Start Date End Date Nohemy Guajardo MD [address] [facility] 110 [place] [address] PCP - ACO Reach 10/07/22 Nohemy Guajardo MD [address] [facility] 110 [place] [address] PCP - General Family Medicine 10/28/22 Madiha Busch, ONIEL [address] [place] [address] Registered Nurse Family Medicine 01/29/25 01/31/25 documented as of this encounter
--- OUTSIDE RECORDS SUMMARY | 2025-02-07 08:40 | XMS_ITS | Encounter Summary ---
Author Organization [facility] Address [address] [place] [address] Care Team Providers Care Buhr Dresser Name Role Phone Nohemy Guajardo MD Unavailable Nohemy Guajardo MD Primary Care Provider [phone] Madiha Busch RN Unavailable [phone] Encounter Details Date Type Department Care Team (Late Contact Info) Description 12/17/2024 Abstract [facility] [place] [address] [facility] 110 [place] [address] Nohemy Guajardo MD [address] [place] [address] [facility] [address] [place] [address] Social History Tobacco Use Types Packs/Day Years [...] Upcoming Encounters Date Type Department Care Team ([facility] Contact Info) Description 04/02/2025 1:00 PM EST Office Visit [facility] [place] [facility] [address] [place] [address] [place] [address] Nohemy Guajardo MD [address] [place] [address] [facility] [address] [place] [address] documented as of this encounter Visit Diagnoses Not on filedocumented in this encounter Additional Health Concerns Assessment Noted Time PHQ-9 Depression Total Score: 4 12/26/19 24 10:00 AM EDT documented as of this encounter Care Teams Buhr Dresser Relationship Specialty Start Date End Date Nohemy Guajardo MD [address] [facility] [address] [place] [address] PCP - ACO Reach 10/07/22 Nohemy Guajardo MD [address] [facility] [address] [place] [address] PCP - General Family Medicine 10/28/22 Madiha Busch, ONIEL [address] [place] [address] Registered Nurse Family Medicine 01/29/25 01/31/25 documented as of this encounter
--- NOTE | 2025-02-07 14:26 | PM.CN ---
Consult Note: HPI Data of Consult Patient: known to practice within the last 3 years Consult date: 02/07/25 Requesting Physician: Maria Antonia Powers NP Primary Care Provider: WILY PRADO Consult Narrative Reason for consult: back pain Narrative: Lovely Martin a pleasant 79 year old female presents for evaluation of low back pain secondary to lumbar stenosis, lumbar ddd, and lumbar spondylosis. pt has failed to benefit from > 6 weeks of PT/HEP, heat, ice, tylenol, nsaids. previously underwent bilateral L4-5 L5-S1 mbb #1 with no improvement while anesthetized and bilateral L4-5 TFESI with less than 50% improvement per p, most recently underwent bilateral L3/4 TFESI with >50% improvement ongoing. pain today 0/10 increasing to 6/10 with standing walking and lifting, improves significantly with forward flexion and sitting. SHANNAN 20%. originally 35%. cc:: CC: Maria Antonia Powers NP PFS PFSH Medical History (Updated 12/27/24 @ 12:59 by Maria Antonia Powers NP) Low back pain ?M54.50 - Low back pain, unspecified (ICD-10) Smoker ?F17.200 - Nicotine dependence, unspecified, uncomplicated (ICD-10) PVD (peripheral vascular disease) ?I73.9 - Peripheral vascular disease, unspecified (ICD-10) Type 2 diabetes mellitus with hyperglycemia ?E11.65 - Type 2 diabetes mellitus with hyperglycemia (ICD-10) Lumbar degenerative disc disease ?M51.36 - Other intervertebral disc degeneration, lumbar region (ICD-10) Hypertension ?I10 - Essential (primary) hypertension (ICD-10) Medication side effect ?T88.7XXA - Unspecified adverse effect of drug or medicament, initial encounter (ICD-10) Chronic back pain ?M54.9 - Dorsalgia, unspecified (ICD-10) ?G89.29 - Other chronic pain (ICD-10) Diabetes ?E11.9 - Type 2 diabetes mellitus without complications (ICD-10) Choking ?T17.308A - Unspecified foreign body in larynx causing other injury, initial encounter (ICD-10) GERD (gastroesophageal reflux disease) ?K21.9 - Gastro-esophageal reflux disease without esophagitis (ICD-10) Surgical History (Updated 12/07/24 @ 09:04 by Grace Abbott) H/O heart artery stent ?Z95.5 - Presence of coronary angioplasty implant and graft (ICD-10) H/O: hysterectomy ?Z90.710 - Acquired absence of both cervix and uterus (ICD-10) History of cholecystectomy ?Z90.49 - Acquired absence of other specified parts of digestive tract (ICD-10) Social History Smoking status: Current every day smoker Meds Home Medications and Allergies Home Medications ?Medication ?Instructions ?Recorded ?Confirmed ?Type Lantus Solostar U-100 Insulin 05/15/23 History Ventolin HFA 05/15/23 History atorvastatin 20 mg tablet 20 mg PO DAILY 05/15/23 01/28/25 History clopidogrel 75 mg tablet 75 mg PO DAILY 05/15/23 01/28/25 History fenofibrate nanocrystallized 145 145 mg PO .qd 05/15/23 01/28/25 History mg tablet gabapentin 600 mg tablet 600 mg PO Q8H 05/15/23 01/28/25 History hydrochlorothiazide 25 mg tablet 25 mg PO DAILY 05/15/23 01/28/25 History ipratropium 0.5 mg-albuterol 3 mg 3 ml inhalation Q6H 05/15/23 01/28/25 History (2.5 mg base)/3 mL nebulization soln lisinopril 40 mg tablet 40 mg PO DAILY 05/15/23 01/28/25 History metoprolol tartrate 25 mg tablet 25 mg PO TID 05/15/23 01/28/25 History omeprazole 20 mg capsule,delayed 20 mg PO .qd 05/15/23 01/28/25 History release oxcarbazepine 300 mg tablet 300 mg PO BID 05/15/23 01/28/25 History sitagliptin phosphate 50 2 tab PO DAILY 05/15/23 01/28/25 History mg-metformin 500 mg tablet (Janumet) tiotropium 2.5 mcg-olodaterol 2.5 2 puff inhalation Q24H 05/15/23 01/28/25 History mcg/actuation mist for inhalation (Stiolto Respimat) torsemide 10 mg tablet 10 mg PO DAILY 05/15/23 01/28/25 History alprazolam 0.5 mg tablet 0.5 mg PO DAILY 11/20/24 01/28/25 History amlodipine 10 mg tablet 10 mg PO DAILY 11/20/24 01/28/25 History naproxen 500 mg tablet 500 mg PO Q12H 11/20/24 01/28/25 History acetaminophen 650 mg 1,300 mg PO Q12H PRN pain 01/07/25 01/28/25 History tablet,extended release (Pain Relief (acetaminophen)) famotidine 20 mg tablet (Pepcid) 20 mg PO DAILY 01/07/25 01/28/25 History guaifenesin 600 mg tablet, 600 mg PO BID PRN cough 01/07/25 01/28/25 History extended release 12 hr (Mucinex) Allergies Allergy/AdvReac Type Severity Reaction Status Date / Time nickel Allergy Mild Rash Verified 01/28/25 11:48 petrolatum,white (From AdvReac Severe Blister Verified 01/28/25 11:48 Petroleum Jelly) tagemet AdvReac Severe Diarrhea Uncoded 01/28/25 11:48 Exam Constitutional Documenting provider has reviewed patient's vital signs: yes Common normals: no apparent distress, oriented x3, healthy appearing, alert and well nourished General appearance: cooperative HENSC Common normals: normocephalic, hearing grossly normal bilaterally and moist oral mucous membranes Head and scalp: normocephalic Eye Common normals: PERRL Pupil: PERRL Neck & C-Spine Common normals: full ROM General: normal visual inspection Chest Common normals: inspection of chest normal Respiratory Common normals: normal respiratory effort, no retractions and no use of accessory muscles Back & Pelvis Lumbar spine/lower back: ROM limited, pain with ROM and straight leg raise negative bilaterally; no lumbar spinal tenderness Other: increased low back pain with standing and walking, significant improvement with forward flexion and sitting strength 4/5 in BLE Neuro Common normals: oriented x3 Sensorium/orientation: alert Psych Common normals: mental status grossly normal, thought process normal, cooperative, affect normal, speech normal and activity/motor behavior normal Speech: normal speech Thought process: normal thought process Results Additional Findings Additional findings: If on a controlled substance or opioids, I have checked an [place] report on this patient and there are no aberrancies noted in the prescribing history.??If on a controlled substance or opioid a drug screen was completed and reviewed within the last year, and if there has not been a drug screen completed we ordered one today to monitor higher risk, state monitored pain medication use. As part of providing excellent, safe, comprehensive care, the following was completed at our patient's visit: 1. A medication reconciliation and review to ensure accurate knowledge of current/active medications, including asking our patients to inform us about any [id number] medications or herbal remedies/nutritional supplements/alternative remedies. 2. A review to specifically ensure our patients have had annual screening for screening for depression, screening for tobacco use, and screening for unhealthy alcohol use. For concerning screenings had a discussion with the patient, provided patient education, and recommended follow-up with primary care provider when appropriate. If patient noted with a risk of falling, they received education on strength, gait, and balance training to prevent future risk of falling. Portions of this note may have been carried over from the previous visit and updated as appropriate. Please note this office utilizes paper charting in addition to the electronic medical record. A list of current medications, vitals, and PMH is available there as the clinical staff outside of myself do not have access to [employer] charting during the clinic day operations. As part of providing quality comprehensive care the current medications, vitals, and PMH were reviewed in the paper chart. Assessment and Plan Assessment and Plan (1) Lumbar stenosis with neurogenic claudication: Assessment and Plan: The patient has had over 3 months of moderate to severe low back pain with functional impairment and inadequate response to conservative care including NSAIDS (unless there are contraindication such as concurrent blood thinners), multiple oral or topical pain medications, and home exercise program/physical therapy.? Patient has completed >6 weeks of guided home exercise program and/or formal physical therapy program without relief of their symptoms.? (2) Lumbar spondylosis: (3) Other intervertebral disc degeneration, lumbar region with discogenic back pain only: Plan update lumbar MRI without contrast in consideration of surgical intervention vs scs trial refer to [facility] Perez for evaluation defer additional medication management due to polypharmacy and hx of falls continue HEP as tolerated f/u after NS consultation
== END 2025-02-07 08:33 | disposition home or self-care (01) ==
LOC: PM 08:33
PROVIDERS: PCP Family Medicine; Visit Provider Nurse Practitioner
DX: M48.062 Spinal stenosis, lumbar region with neurogenic claudication (principal); M47.816 Spondylosis without myelopathy or radiculopathy, lumbar region; M51.360 Other intervertebral disc degeneration, lumbar region with discogenic back pain only
CPT/HCPCS: G0463

== ENCOUNTER 2025-02-21 14:35 | Outpatient (OUT) | payer MEDICARE, SELFPAY ==
--- OUTSIDE RECORDS SUMMARY | 2025-02-21 14:40 | XMS_ITS | CCD ---
Author Organization [facility] Care Team Providers Care Magnetic Testing Technician Name Role Phone Mikie West Unavailable MD Wily Prado Primary Care Provider [phone] MD Wily Prado Referring Provider CARMELA Tijerina Attending Provider MD Wily Prado Primary Care Provider [phone] MD Wily Prado Referring Provider [phone] CARMELA Tijerina Attending Provider MD Jesse Tran Attending Provider [phone] TODD, DR GINGER Hurley Consulting Unavailable PAY, [...] Care Provider MD Wily Prado Referring Provider [phone] CARMELA Tijerina Attending Provider PROVIDER, UNKNOWN Admitting [...] Care Provider MD Wily Prado Referring Provider [phone] Marianaedwar CALL OR CONTACT CENTRE COACH Taylor Morgan Attending Provider Wily Prado MD Unavailable Wily Prado MD Primary Care Provider MD Wily Prado Primary Care Provider MD Wily Prado Attending Provider Wily Prado Attending Unavailable Wily Prado Primary Care Unavailable Wily Prado Admitting Unavailable WILY PRADO Attending Unavailable WILY PRADO Referring Unavailable BELOGAN Kay Attending Unavailable WILY PRADO Referring Unavailable WILY PRADO Attending Unavailable JALYN GUAN Attending Unavailable LOGAN KAUR Referring Unavailable LONDON CRABTREE Attending Unavailable LOGAN KAUR Referring Unavailable JALYN GUAN Attending Unavailable BELOGAN Kay Referring Unavailable LONDON CRABTREE Attending Unavailable BELOGAN Kay Referring Unavailable EDDIE AMBROCIO Attending Unavailable BELOGAN Kay Referring Unavailable JALYN GUAN Attending Unavailable LOGAN KAUR Referring Unavailable WILY PRADO Attending Unavailable WILY PRADO Attending Unavailable Giedraitis , Andrius Egan Attending Unavailable Giedraitis , Andrius Vjaky Attending Unavailable Giedraitis , Andrius Vytangel Attending Unavailable Giedraitis , Andrius Laceyytangel Attending Unavailable Allergies Allergy Classification Reported Allergen(s) Allergy Type Date of Onset Reaction(s) Facility (1 source) Bacitracin / Neomycin / Polymyxin B Drug Allergy Unknown [facility] Other (1 source) Cimetidine Drug Allergy Unknown [facility] Other (20 sources) Bacitracin; Translations: [bacitracin] Drug Allergy 2 [facility] (20 sources) Cimetidine; Translations: [cimetidine] Drug Allergy 2 [facility] (20 sources) Neomycin; Translations: [neomycin] Drug Allergy 2 [facility] (10 sources) contact metal agent; Translations: [contact metal agent] Propensity to adverse reactions 2 [facility] (11 sources) petrolatum,whit e; Translations: [petrolatum,whi te] Propensity to adverse reactions 2 [facility] (20 sources) polymyxin B; Translations: [polymyxin B] Propensity to adverse reactions 2 [facility] (1 source) Bacitracin / Neomycin / Polymyxin B Drug Allergy 5 [facility] (1 source) Cimetidine Drug Allergy 5 [facility] (20 sources) Bacitracin / Polymyxin B Drug Allergy 3 Unknown [facility] Work Phone: (20 sources) Petrolatum Drug Allergy 3 Unknown [facility] Medications Current Medications Medication Drug Class(es) Dates Sig (Normalized) Sig (Original) [id number] 200 actuat albuterol 0.09 mg/actuat metered dose [...] at bedtime for anxiety 30 tablet 12/14/2024 Active amLODIPine 10 mg oral tablet (15 sources) Dihydropyridine Calcium Channel Latha Start: 05-08-2024 [...] 1000 mg by mouth once daily Evening [place] Oil Active 1000 MG PO every day at noon December 17, 2019 12:00am take 1 capsule by mouth once alma delia ly Evening [place] Oil 1000 MG 1 capsule Orally one [...] bedtime. 300 tablet 3 11/09/2024 Active Horse [place]ard 300 MG (1 source) take 1 capsule by mouth once daily Horse [place] 300 MG 1 capsule Orally one time [...] 300 mg by mouth once daily Horse [place] Active 300 MG PO every day at noon December 17, 2019 12:00am hydroCHLOROthiazide 25 mg oral tablet (20 sources) Thiazide Diuretic Start: 12-24-2024 hydroCHLOROthiazide (HYDRODiuril) 25 MG tablet Indications: Essential hypertension TAKE 1 TABLET EVERY MORNING 100 tablet 3 12/24/2024 Active Start: 10-06-2020 hydroCHLOROthi azide (HYDRODiuril) 25 MG tablet Indications: Essential hypertension TAKE 1 TABLET EVERY MORNING 100 tablet 3 12/01/2023 Active 3 ml insulin glargine 100 unt/ml pen injector (20 sources) Insulin Analog Start: 10-11-2024 insulin glargi ne (Lantus SoloStar) 100 UNIT/ML pen Indications: Type [...] (20 sources) Angiotensin Converting Enzyme Inhibitor Start: 12-24-2024 lisinopril 40 MG tablet Indications: Essential hypertension TAKE 1 TABLET EVERY MORNING 100 tablet 3 12/24/2024 Active Start: 10-06-2020 lisinopril 40 MG tablet Indications: Essential hypertension TAKE 1 TABLET EVERY MORNING 100 tablet 3 12/01/2023 Active magnesium gluconate 550 mg oral tablet (20 sources) take 1 tablet by mouth in the morning magnesium 30 MG tablet Take 30 mg by mouth in the morning. Active meloxicam 15 mg oral tablet (7 sources) Nonsteroidal Anti-inflammatory Drug Start: 03-08-20 23 meloxicam (Mobic) 15 MG tablet Indications: Carpal tunnel syndrome, unspecified laterality TAKE 1 TABLET EVERY DAY 90 tablet 3 03/08/2023 Active metFORMIN hydrochloride 500 mg / SITagliptin 50 mg oral tablet (20 sources) Biguanide, Dipeptidyl Peptidase 4 Inhibitor Start: 02-12-20 25 take 2 tablets by mouth in the morning SITagliptin-metFORM IN (Janumet) 50-500 MG tablet Indications: Type 2 diabetes mellitus with diabetic polyneuropathy, with long-term current use of insulin (HCC) Take 2 tablets by mouth in the morning. 180 tablet 02/11/2025 Active Start: 12-31-2022 End: 02-11-2025 take 2 tablets by mouth in the morning SITagliptin-metFORMIN (Janumet) 50-500 MG tablet Indications: Type 2 diabetes mellitus with diabetic polyneuropathy, with long-term current use of insulin (HCC) Take 2 tablets by mouth in the morning. 180 tablet 3 02/10/2024 02/11/2025 Discontinued Start: 12-14-2019 take 2 tablets by mo ut once daily Sitagliptin Phos-Metformin (Janumet) 50-500 mg [...] MOUTH EVERY DAY Inhalation for 90 Active [place] 1-Aos-Qzk-Fish Oil (Fish Oil) 1,000 mg (120 mg-180 mg) Capsule (9 sources) Start: 12-17-2019 take 1 capsule by mouth twice daily [place] 1-Syo-Tpy-Fish Oil (Fish Oil) 1,000 mg (120 mg-180 mg) Capsule Active 1 CAP PO Twice daily December 16, 2019 11:00pm Start: 12-17-2019 take 1 capsule by mo [facility] twice daily [place] 1-Wft-Lvz-Fish Oil (Fish Oil) 1,000 mg (120 mg-180 mg) Capsule Active 1 CAP PO Twice daily December 17, 2019 12:00am [place]-3 Fatty Acids (Fish Oi l) 1000 MG capsule delayed-release (20 sources) take 1 capsule by mouth once daily [place]-3 Fatty Acids (Fish Oil) 1000 MG capsule delayed-release Take 1 capsule by mouth 1 (one) time each day. Active take 1 capsule by mouth once alma delia ly [place]-3 Fatty Acids (Fish Oil) 1000 MG capsule [...] tablet 3 11/14/2023 Active polyethylene glycol 3350 71872 mg powder for oral solution (20 sources) [...] 11:00pm Start: 12-17-2019 [facility] Vitamin B Complex (B-Complex) Tablet [...] (1 source) take 1 capsule by mo [facility] once daily Vitamin E 400 [...] Dates Sig (Normalized) Sig (Original) Glucos Sul 6sjl-Uqv-Rhfbl-C-M n (Glucosamine Chondroitin) 550-30-1 mg Capsule (9 sources) Start: 12-17-2019 End: 01-12-2022 take 1 capsule by mouth twice daily Glucos Sul 5vmo-Ibe-Xaioh-C-Mn (Glucosamine Chondroitin) 550-30-1 mg Capsule Discontinued 1 CAP PO Twice daily December 16, 2019 11:00pm January 12, 2022 10:09am Start: 12-17-2019 End: 01-12-2022 take 1 capsule by mouth twice daily Glucos Sul 6lpw-Fie-Qfgqp-C-Mn (Glucosamine Chondroitin) 550-30-1 mg Capsule Discontinued 1 [...] disease (1 source) Atherosclerotic heart disease of [place] coronary artery without angina pectoris; Translations: [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] Onset: 11-25-2021 Chronic [...] 10-31-2022 Chronic Other aftercare (1 source) intermediate school teacher (current) use of aspirin; Translations: [PRISON CURRENT USE OF ASPIRIN] Onset: 01-25-2022 Episodic Other aftercare (1 source) intermediate school teacher (current) use of insulin; Translations: [PRISON CURRENT USE OF INSULIN] Onset: 01-25-2022 Episodic Other aftercare (1 source) Other lobsterman (current) drug therapy; Translations: [OTH PRISON CURRENT DRUG THERAPY] Onset: 01-25-2022 Episodic Other and ill-defined heart disease (20 sources) Diastolic dysfunction; Translations: [Other ill-defined heart diseases] Onset: 10-31-2022 10-31-2022 Chronic Other bone disease and musculoskeletal deformities (1 source) Other specified disorders of bone density and structure, left thigh; Translations: [OTH D/O BONE DEN STRUCT LT THIGH] Onset: 11-13-2021 Episodic Other circulatory disease (1 source) Disorder of carotid artery; Translations: [Disorder of arteries and arterioles, unspecified] Chronic Other diseases of veins and lymphatics (20 [...] nonspecific abnormal finding of lung field; Translations: [OTH NONSPECIFIC ABN FIND LNG FIELD] Onset: 11-13-2021 [...] urinary calculi; Translations: [Kidney stone] Onset: 01-25-2022 3 Episodic Conditions associated with dizziness or vertigo [...] 08-17-2021 Episodic Other aftercare (1 source) intermediate school teacher (current) use of oral hypoglycemic drugs; Translations: [PRISON USE ORAL HYPOGLYCEMIC DX] Onset: 05-28-2021 Episodic Other bone disease and musculoskeletal deformities (20 sources) Osteopenia; Translations: [Other specified disorders of bone density and structure, left thigh] Onset: 10-31-2022 10-31-2022 Episodic Other circulatory disease (13 sources) Carotid bruit; Translations: [Other specified symptoms and signs involving the circulatory and respiratory systems] Onset: 10-11-2024 10-11-2024 Episodic Other connective tissue disease (1 source) [...] Test Name Value Interpretation Reference Range Facility [facility] US CAROTID ARTERY DUPLE X BILATERALon 10-19-2024 [facility] US CAROTID ARTERY DUPLEX BILATERAL EXAM: [facility] US CAROTID ARTERY DUPLEX BILATERAL [...] present in the vertebral artery. There is lvnk-og-vmmejyve plaque visualized in the left common carotid [...] II, MD, PHD at 22-Oct-2024 10:54:18 AM [facility] Teleradiology SRU criteria: <180 No plaque <2.0 Normal <180 <50% plaque <2.0 <50% 180-230 >50% plaque 2.0 - 4.0 50-69% >230 >50% plaque >4.0 >70% PSV 125-180 cm/sec and ICA/CCA PSV Ratio >= 2.0 is also consistent with 50-69% stenosis. Normal Not Available Laboratory - Hematology and Cell countson 10-11-2024 HbA1c (Bld) [Mass fraction] 4.8 % [facility] No Panel Informationon 10-11 Interpretation and review of laboratory results Normal [facility], [facility]1983 CBC (H/H, RBC, INDICES, WBC, PLT)on 05-12-2024 Erythrocyte distribution width (RBC) [Ratio] 14.0 % Normal 11.0-15.0 [facility] Comment on above: Performed By: #### 7 600 #### [facility] [address] [facility], [address] [place] [phone] Jewel Hole Driller: Дмитрий Mendoza MD #### [id number], 9437 #### [facility]-[address] [address] Jewel Hole Driller: Joyce Vaca Hematocrit (Bld) [Volume fraction] 40.1 % Normal 35.0-45.0 [facility] Comment on above: Performed By: #### 7 600 #### [facility] [address] [facility], [address] [place] [address] Jewel Hole Driller: Дмитрий Mendoza MD #### [id number], 1759 #### [facility] [address] [place] [address] Jewel Hole Driller: Joyce Vaca Hemoglobin (Bld) [Mass/Vol] 13.5 g/dL Normal 11.7-15.5 [facility] Comment on above: Performed By: #### 7 600 #### [facility] [address], [address] [place] [address] Jewel Hole Driller: Дмитрий Mendoza MD #### [id number], 1759 #### [facility] [place] [address] Jewel Hole Driller: Joyce Vaca MCH (RBC) [Entitic mass] 30.6 pg Normal 27.0-33.0 [facility] Comment on above: Performed By: #### 7 600 #### [facility] [place] [address] Jewel Hole Driller: Дмитрий Mendoza MD #### [id number], 1759 #### [facility] [address] Jewel Hole Driller: Joyce Vaca MCHC (RBC) [Mass/Vol] 33.7 g/dL [...] By: #### 7 600 #### [facility] [address], [address] [place] [address] Jewel Hole Driller: Дмитрий Mendoza MD #### [id number], 1759 #### [facility]-[address] [address] Jewel Hole Driller: Joyce Vaca MCV (RBC) [Entitic vol] 90.9 fL Normal 80.0-100.0 [facility] Comment on above: Performed By: #### 7 600 #### [facility] [address], [address] [place] [address] Jewel Hole Driller: Дмитрий Mendoza MD #### [id number], 1759 #### [facility] [address] Jewel Hole Driller: Joyce Vaca Platelet mean volume (Bld) [Entitic vol] 8.5 fL Normal 7.5-12.5 [facility] Comment on above: Performed By: #### 7 600 #### [facility] [address], [address] [place] [address] Jewel Hole Driller: Дмитрий Mendoza MD #### [id number], 1759 #### [facility] [address] Jewel Hole Driller: Joyce Vaca Platelets (Bld) [#/Vol] 309 10*3/uL Normal 140-400 [facility] Comment on above: Performed By: #### 7 600 #### [facility] [address], [address] [place] [address] Jewel Hole Driller: Дмитрий Mendoza MD #### [id number], 1759 #### [facility] [address] Jewel Hole Driller: Joyce Vaca RBC (Bld) [#/Vol] 4.41 10*6/uL Normal 3.80-5.10 [facility] Comment on above: Performed By: #### 7 600 #### [facility] [address], [address] [place] [address] Jewel Hole Driller: Дмитрий Mendoza MD #### 11036, 1759 #### [facility] [address] Jewel Hole Driller: Joyce Vaca WBC (Bld) [#/Vol] 7.2 10*3/uL Normal 3.8-10.8 [facility] Comment on above: Performed By: #### 7 600 #### [facility] [address], [address] [place] [address] Jewel Hole Driller: Дмитрий Mendoza MD #### [id number], 1759 #### [facility] [address] [place] [address] Jewel Hole Driller: Joyce Vaca [facility] 05-12-2024 Albumin [Mass/Vol] 3.7 g/dL Normal 3.6-5.1 [facility] Comment on above: Performed By: #### 7 600 #### [facility] [address], [address] [place] [address] Jewel Hole Driller: Дмитрий Mendoza MD #### [id number], 1759 #### [facility] [address] Jewel Hole Driller: Joyce Vaca Albumin/Globulin [Mass ratio] 1.3 {ratio} Normal 1.0-2.5 [facility] Comment on above: Performed By: #### 7 600 #### [facility] [address], [address] [place] [address] Jewel Hole Driller: Дмитрий Mendoza MD #### 40493, 1759 #### [facility] [address] Jewel Hole Driller: Joyce Vaca ALP [Catalytic activity/Vol] 35 U/L Low 37-153 [facility] Comment on above: Performed By: #### 7 600 #### [facility] [address], [address] [place] [address] Jewel Hole Driller: Дмитрий Mendoza MD #### [id number], 1759 #### [facility] [address] [place] [address] Jewel Hole Driller: Joyce Vaca ALT [Catalytic activity/Vol] 16 U/L Normal 6-29 [facility] Comment on above: Performed By: #### 7 600 #### [facility] [address], [address] [place] [address] Jewel Hole Driller: Дмитрий Mendoza MD #### 26055, 1759 #### [facility] [address] [place], [place] [phone] Jewel Hole Driller: Joyce Vaca AST [Catalytic activity/Vol] 26 U/L Normal 10-35 [facility] Comment on above: Performed By: #### 7 600 #### [facility] [address], [address] [place] [address] Jewel Hole Driller: Дмитрий Mendoza MD #### [id number], 1759 #### [facility] [address] [place] [address] Jewel Hole Driller: Joyce Vaca Bilirubin [Mass/Vol] 0.5 mg/dL Normal 0.2-1.2 [facility] Comment on above: Performed By: #### 7 600 #### [facility] [place] [address] Jewel Hole Driller: Дмитрий Mendoza MD #### 55696, 1759 #### [facility] [address] [place] [address] Jewel Hole Driller: Joyce Vaca BUN/CREATININE RATIO SEE NOTE: Normal 6-22 [facility] Comment on above: Result Comment: Not Reported: BUN and Creatinine are within reference range. Performed By: #### 7 600 #### [facility] [place] [address] Jewel Hole Driller: Дмитрий Mendoza MD #### 60019, 1759 #### [facility] [address] [place] [address] Jewel Hole Driller: Joyce Vaca Calcium [Mass/Vol] 9.6 mg/dL Normal 8.6-10.4 [facility] Comment on above: Performed By: #### 7 600 #### [facility] [address], [address] [place] [address] Jewel Hole Driller: Дмитрий Mendoza MD #### [id number], 1759 #### [facility] [address] [place], [place] [phone] Jewel Hole Driller: Jocye Vaca Chloride [Moles/Vol] 97 mmol/L Low 98-110 [facility] Comment on above: Performed By: #### 7 600 #### [facility] [address], [address] [place] [address] Jewel Hole Driller: Дмитрий Mendoza MD #### [id number], 1759 #### [facility] [address] [place] [address] Jewel Hole Driller: Joyce Friedmani CO2 [Moles/Vol] 30 mmol/L Normal 20-32 [facility] Comment on above: Performed By: #### 7 600 #### [facility] [address], [address] [place] [address] Jewel Hole Driller: Дмитрий Mendoza MD #### 21679, 1759 #### [place] [address] Jewel Hole Driller: Joyce Vaca Creatinine [Mass/Vol] 0.69 mg/dL Normal 0.60-1.[address] [facility] Comment on above: Performed By: #### 7 600 #### [facility] [address], [address] [place] [address] Jewel Hole Driller: Дмитрий Mendoza MD #### 45311, 1759 #### [facility] [phone] Jewel Hole Driller: Joyce Friedmani GFR/1.73 sq M.predicted among non-blacks MDRD (S/P/Bld) [Vol rate/Area] 90 mL/min/{1.73_m2} Normal > OR = 60 [facility] Comment on above: Performed By: #### 7 600 #### [facility] [address], [address] [place] [address] Jewel Hole Driller: Дмитрий Mendoza MD #### 00820, 1759 #### [facility] [phone] Jewel Hole Driller: Joyce Vaca Globulin (S) [Mass/Vol] 2.8 g/dL Normal 1.9-3.7 [facility] Comment on above: Performed By: #### 7 600 #### [facility] [address], [address] [place] [address] Jewel Hole Driller: Дмитрий Mendoza MD #### 10143, 1759 #### [place] [address] Jewel Hole Driller: Joyce Hurley Flati Glucose [Mass/Vol] 81 mg/dL Normal 65-139 [facility] Comment on above: Result Comment: Non-fasting reference interval Performed By: #### 7 600 #### [facility] [address], [address] [place] [address] Jewel Hole Driller: Дмитрий Mendoza MD #### 05887, 1759 #### [facility]-[address] Jewel Hole Driller: Joyce Hurley Flati Potassium [Moles/Vol] 4.1 mmol/L Normal 3.5-5.3 [facility] Comment on above: Performed By: #### 7 600 #### [facility] [address], [address] [place] [address] Jewel Hole Driller: Дмитрий Mendoza MD #### 45393, 1759 #### [facility]-[address] Jewel Hole Driller: Joyce Hurley Flati Protein [Mass/Vol] 6.5 g/dL Normal 6.1-8.1 [facility] Comment on above: Performed By: #### 7 600 #### [facility] [address], [address] [place] [address] Jewel Hole Driller: Дмитрий Mendoza MD #### 26799, 1759 #### [facility] [address] [place], [place] [phone] Jewel Hole Driller: Joyce Hurley Flati Sodium [Moles/Vol] 135 mmol/L Normal 135-146 [facility] Comment on above: Performed By: #### 7 600 #### [facility] [address], [address] [place] [address] Jewel Hole Driller: Дмитрий Mendoza MD #### 28949, 1759 #### [facility] [address] [place], [place] [phone] Jewel Hole Driller: Joyce Vaca Urea nitrogen [Mass/Vol] 21 mg/dL Normal 7- [facility] Comment on above: Performed By: #### 7 600 #### [facility] [address], [address] [place] [address] Jewel Hole Driller: Дмитрий Mendoza MD #### 46705, 1759 #### [facility] [address] [place] [phone] Jewel Hole Driller: Joyce Vaca LIPID PANEL, [facility] 12-2 Cholesterol [Mass/Vol] 156 mg/dL Normal <200 [facility] Comment on above: Order Comment: FASTI NG:NO COLLECTION REQUIREMENTS NOT MET. PATIENT ADVISED TO RETURN. FASTING: NO Performed By: #### 7 600 #### [facility] [address], [address] [place] [address] Jewel Hole Driller: Дмитрий Mendoza MD #### 91060, 1759 #### [facility] [address] [place], [place] [phone] Jewel Hole Driller: Joyce Vaca Cholesterol in HDL [Mass/Vol] 42 mg/dL Low > OR = 50 [facility] Comment on above: Order Comment: FASTI NG:NO COLLECTION REQUIREMENTS NOT MET. PATIENT ADVISED TO RETURN. FASTING: NO Performed By: #### 7 600 #### [facility] [address], [address] [place] [address] Jewel Hole Driller: Дмитрий Mendoza MD #### 86069, 1759 #### [facility] [address] [place], [place] [phone] Jewel Hole Driller: Joyce Vaca Cholesterol in LDL [Mass/Vol] 85 [...] LDL-C. Devyn SUE et al. ZORAIDA. 2013;310(19): 0748-2028 (http://education.Kiva.ZIRX/faq/QAM904) Performed By: #### 7 600 #### [facility] [address], [address] [place] [address] Jewel Hole Driller: Дмитрий Mendoza MD #### 86446, 1759 #### [facility] [address] [place] [address] Jewel Hole Driller: Joyce Vaca Cholesterol.total/Rocío sterol in HDL [Mass ratio] 3.7 {ratio} Normal <5.0 [facility] Comment on above: Order Comment: FASTI NG:NO COLLECTION REQUIREMENTS NOT MET. PATIENT ADVISED TO RETURN. FASTING: NO Performed By: #### 7 600 #### [facility] [address], [address] [place] [address] Jewel Hole Driller: Дмитрий Mendoza MD #### 10520, 1759 #### [facility] [address] [place] [address] Jewel Hole Driller: Joyce Vaca NON HDL CHOLESTEROL 114 mg/dL [...] By: #### 7 600 #### [facility] [address], [address] [place] [address] Jewel Hole Driller: Дмитрий Mendoza MD #### 21047, 1759 #### [facility] [address] [place], [place] [phone] Jewel Hole Driller: Joyce Vaca Triglyceride [Mass/Vol] 197 mg/dL High <150 [facility] Comment on above: Order Comment: FASTI NG:NO COLLECTION REQUIREMENTS NOT MET. PATIENT ADVISED TO RETURN. FASTING: NO Performed By: #### 7 600 #### [facility] [address], [address] [place] [address] Jewel Hole Driller: Дмитрий Mendoza MD #### [id number], 1759 #### [facility] [address] [place] [address] Jewel Hole Driller: Joyce Vaca MR lumbar spine wo conon MR lumbar spine wo con [facility] Main [place] [address] [place], [place] [id number] XRay Report Signed Patient: Nuvia Martin MR#: [id number] : 1945 Acct:[id number] Age/Sex: 78 / F ADM Date: 09/16/23 Loc: Room: Type: [facility] Attending Dr: Wily Prado MD Copies to: Wily Prado MD Ordering Provider: Wily Prado MD Date of Service: 09/16/23 MR/MR lumbar spine wo con: M51.36, M43.16 M54.42, M54.41 ([id number]) XR/XR pre/post mri xray: M54.42, M54.41, M51.36, [...] Latonya Riggs M.D.09/16/2023 10:57 AM Dictation Location: [place] [id number] Transcribed By: [facility] 09/16/23 1057 Dictated By: Latonya Riggs MD 09/16/23 1046 Signed By: 09/16/23 1057 Normal [facility] Alanine aminotransferase [En zymatic activity/volume] in Serum or PlasmaOrdered By: Taylor Tijerina on 01-31-2023 ALT [Catalytic activity/Vol] 16 U/L 7-52 [facility] Albumin [Mass/volume] in Ser um or Plasma by Bromocresol green (BCG) dye binding methoOrdered By: Taylor Tijerina on 01-31-2023 Albumin BCG dye [Mass/Vol] 3.7 g/dL 3.5-5.7 [facility] Alkaline phosphatase [Enzyma tic activity/volume] in Serum or PlasmaOrdered By: Taylor Tijerina on 01-31-2023 ALP [Catalytic activity/Vol] 72 U/L 34-104 [facility] Aspartate aminotransferase [ Enzymatic activity/volume] in Serum or PlasmaOrdered By: Taylor Tijerina on 01-31-2023 AST [Catalytic activity/Vol] 24 U/L 13-39 [facility] Basophils Auto (Bld) [#/Vol] Ordered By: Taylor Tijerina on 01-31-2023 Basophils (Bld) [#/Vol] 0.1 10*3/uL 0.0-0.2 [facility] Basophils/100 WBC Auto (Bld) Ordered By: Taylor Tijerina on 01-31-2023 Basophils/100 WBC (Bld) 0.9 % . [facility] Bilirubin.total [Mass/volume ] in Serum or PlasmaOrdered By: Taylor Tijerina on 01-31-2023 Bilirubin [Mass/Vol] 0.4 mg/dL 0.3-1.0 [facility] Calcium [Mass/volume] in Ser um or PlasmaOrdered By: Taylor Tijerina on 01-31-2023 Calcium [Mass/Vol] 9.1 mg/dL 8.6-10.3 [facility] Carbon dioxide, total [Moles /volume] in Serum or PlasmaOrdered By: Taylor Tijerina on 01-31-2023 CO2 [Moles/Vol] 30.6 mmol/L 21.0-31.0 [facility] Chloride [Moles/volume] in S ramiro or PlasmaOrdered By: Taylor Tijerina on 01-31-2023 Chloride [Moles/Vol] 102 mmol/L 98-107 [facility] Creatinine [Mass/volume] in Serum or PlasmaOrdered By: Taylor Tijerina on 01-31-2023 Creatinine [Mass/Vol] 0.90 mg/dL 0.60-1.20 [facility] Eosinophils Auto (Bld) [#/Vo l]Ordered By: Taylor Tijerina on 01-31-2023 Eosinophils (Bld) [#/Vol] 0.1 10*3/uL 0.0-0.45 [facility] Eosinophils/100 WBC Auto (Bl d)Ordered By: Taylor Tijerina on 01-31-2023 Eosinophils/100 WBC (Bld) 2.0 % . [facility] Erythrocyte distribution wid th Auto (RBC) [Ratio]Ordered By: Taylor Tijerina on 01-31-2023 Erythrocyte distribution width (RBC) [Ratio] 13.8 % 11.9-15.3 [facility] Ferritin [Mass/volume] in Se rum or PlasmaOrdered By: Taylor Tijerina on 01-31-2023 Ferritin [Mass/Vol] 58.3 ng/mL 11.0-306.8 [facility] Globulin Calc (S) [Mass/Vol] Ordered By: Taylor Tijerina on 01-31-2023 Globulin (S) [Mass/Vol] 2.6 g/dL [facility] Glucose [Mass/volume] in Ser um or PlasmaOrdered By: Taylor Tijerina on 01-31-2023 Glucose [Mass/Vol] 118 mg/dL 70-100 [facility] Comment on above: ADA recommended refe rence rangeRandom Glucose Reference Range is dependent on time and content of last meal. Glucose of more than 200 mg/dL in a nonstressed, ambulatory subject supports the diagnosis of Diabetes Mellitus. Hematocrit Auto (Bld) [Volum e fraction]Ordered By: Taylor Tijerina on 01-31-2023 Hematocrit (Bld) [Volume fraction] 40.4 % 34.0-46.4 [facility] Hemoglobin [Mass/volume] in BloodOrdered By: Taylor Tijerina on 01-31-2023 Hemoglobin (Bld) [Mass/Vol] 13.9 g/dL 11.8-15.4 [facility] Iron [Mass/volume] in Serum or PlasmaOrdered By: Taylor Tijerina on 01-31-2023 Iron [Mass/Vol] 91 ug/dL 50-212 [facility] Iron binding capacity [Mass/ volume] in Serum or PlasmaOrdered By: Taylor Tijerina on 01-31-2023 Iron binding capacity [Mass/Vol] 385 ug/dL 255-450 [facility] Iron saturation [Mass Fracti on] in Serum or PlasmaOrdered By: Taylor Tijerina on 01-31-2023 Iron saturation [Mass fraction] 23.6 % 20-50 [facility] Leukocytes [#/volume] correc shara for nucleated erythrocytes in Blood by Automated counOrdered By: Taylor Tijerina on 01-31-2023 WBC corrected for nucl RBC Auto (Bld) [#/Vol] 6.9 10*3/uL 3.8-11.6 [facility] Lymphocytes Auto (Bld) [#/Vo l]Ordered By: Taylor Tijerina on 01-31-2023 Lymphocytes (Bld) [#/Vol] 1.8 10*3/uL 1.00-4.8 [facility] Lymphocytes/100 WBC Auto (Bl d)Ordered By: Taylor Tijerina on 01-31-2023 Lymphocytes/100 WBC (Bld) 26.2 % . [facility] MCH Auto (RBC) [Entitic mass ]Ordered By: Taylor Tijerina on 01-31-2023 MCH (RBC) [Entitic mass] 32.5 pg 24.7-34.3 [facility] MCHC Auto (RBC) [Mass/Vol]Or dered By: Taylor Tijerina on 01-31-2023 MCHC (RBC) [Mass/Vol] 34.4 g/dL 32.0-35.0 [facility] MCV Auto (RBC) [Entitic vol] Ordered By: Taylor Tijerina on 01-31-2023 MCV (RBC) [Entitic vol] 94.5 fL 80-100 [facility] Monocytes Auto (Bld) [#/Vol] Ordered By: Taylor Tijerina on 01-31-2023 Monocytes (Bld) [#/Vol] 0.6 10*3/uL 0.0-0.8 [facility] Monocytes/100 WBC Auto (Bld) Ordered By: Taylor Tijerina on 01-31-2023 Monocytes/100 WBC (Bld) 9.2 % . [facility] Neutrophils Auto (Bld) [#/Vo l]Ordered By: Taylor Tijerina on 01-31-2023 Neutrophils (Bld) [#/Vol] 4.2 10*3/uL 1.8-7.7 [facility] Neutrophils/100 WBC Auto (Bl d)Ordered By: Taylor Tijerina on 01-31-2023 Neutrophils/100 WBC (Bld) 61.7 % . [facility] No Panel InformationOrdered By: Taylor Tijerina on 01-31-2023 Estimated GFR (CKD-EPI) > 60.0 mL/Min [facility] Creatinine Clearance (Chem 49.88 [facility] Nucleated erythrocytes [Pres ence] in Blood by Automated countOrdered By: Taylor Tijerina on 01-31-2023 Nucleated RBC Auto Ql (Bld) 0.1 /100{WBC} 0-0.5 [facility] Platelet mean volume Auto (B ld) [Entitic vol]Ordered By: Taylor Tijerina on 01-31-2023 Platelet mean volume (Bld) [Entitic vol] 7.4 fL 6.3-10.7 [facility] Platelets Auto (Bld) [#/Vol] Ordered By: Taylor Tijerina on 01-31-2023 Platelets (Bld) [#/Vol] 349 10*3/uL 150-450 [facility] Potassium [Moles/volume] in Serum or PlasmaOrdered By: Taylor Tijerina on 01-31-2023 Potassium [Moles/Vol] 4.2 mmol/L 3.5-5.1 [facility] Comment on above: Hemolysis is present at a level that could interfere with the result. Protein [Mass/volume] in Ser um or PlasmaOrdered By: Taylor Tijerina on 01-31-2023 Protein [Mass/Vol] 6.3 g/dL 6.4-8.9 [facility] RBC Auto (Bld) [#/Vol]Ordere d By: Taylor Tijerina on 01-31-2023 RBC (Bld) [#/Vol] 4.27 10*6/uL 3.60-5.00 [facility] Serum or plasma albumin/glob ulin mass ratioOrdered By: Taylor Tijerina on 01-31-2023 Albumin/Globulin [Mass ratio] 1.4 {ratio} [facility] Serum or plasma anion gap de terminationOrdered By: Taylor Tijerina on 01-31-2023 Anion gap [Moles/Vol] 7.6 mmol/L 6.0-15.0 [facility] Sodium [Moles/volume] in Ser um or PlasmaOrdered By: Taylor Tijerina on 01-31-2023 Sodium [Moles/Vol] 136 mmol/L 136-145 [facility] Transferrin [Mass/volume] in Serum or PlasmaOrdered By: Taylor Tijerina on 01-31-2023 Transferrin [Mass/Vol] 275 mg/dL 203-362 [facility] Urea nitrogen [Mass/volume] in Serum or PlasmaOrdered By: Taylor Tijerina on 01-31-2023 Urea nitrogen [Mass/Vol] 24 mg/dL 7-25 [facility] WBC Auto (Bld) [#/Vol]Ordere d By: Taylor Tijerina on 01-31-2023 WBC (Bld) [#/Vol] 6.9 10*3/uL 3.8-11.6 [facility] Alanine aminotransferase [En zymatic activity/volume] in Serum or PlasmaOrdered By: Taylor Tijerina on 11-01-2022 ALT [Catalytic activity/Vol] 18 U/L 7-52 [facility] Albumin [Mass/volume] in Ser um or Plasma by Bromocresol green (BCG) dye binding methoOrdered By: Taylor Tijerina on 11-01-2022 Albumin BCG dye [Mass/Vol] 3.8 g/dL 3.5-5.7 [facility] Alkaline phosphatase [Enzyma tic activity/volume] in Serum or PlasmaOrdered By: Taylor Tijerina on 11-01-2022 ALP [Catalytic activity/Vol] 38 U/L 34-104 [facility] Aspartate aminotransferase [ Enzymatic activity/volume] in Serum or PlasmaOrdered By: Taylor Tijerina on 06-19-2023 AST [Catalytic activity/Vol] 22 U/L 13-39 [facility] Basophils Auto (Bld) [#/Vol] Ordered By: Taylor Tijerina on 11-01-2022 Basophils (Bld) [#/Vol] 0.1 10*3/uL 0.0-0.2 [facility] Basophils/100 WBC Auto (Bld) Ordered By: Taylor Tijerina on 11-01-2022 Basophils/100 WBC (Bld) 1.3 % . [facility] Bilirubin.total [Mass/volume ] in Serum or PlasmaOrdered By: Taylor Tijerina on 11-01-2022 Bilirubin [Mass/Vol] 0.4 mg/dL 0.3-1.0 [facility] Calcium [Mass/volume] in Ser um or PlasmaOrdered By: Taylor Tijerina on 11-01-2022 Calcium [Mass/Vol] 9.2 mg/dL 8.6-10.3 [facility] Carbon dioxide, total [Moles /volume] in Serum or PlasmaOrdered By: Taylor Tijerina on 11-01-2022 CO2 [Moles/Vol] 28.9 mmol/L 21.0-31.0 [facility] Chloride [Moles/volume] in S ramiro or PlasmaOrdered By: Taylor Tijerina on 11-01-2022 Chloride [Moles/Vol] 100 mmol/L 98-107 [facility] Creatinine [Mass/volume] in Serum or PlasmaOrdered By: Taylor Tijerina on 11-01-2022 Creatinine [Mass/Vol] 0.76 mg/dL 0.60-1.20 [facility] Eosinophils Auto (Bld) [#/Vo l]Ordered By: Taylor Tijerina on 11-01-2022 Eosinophils (Bld) [#/Vol] 0.1 10*3/uL 0.0-0.45 [facility] Eosinophils/100 WBC Auto (Bl d)Ordered By: Taylor Tijerina on 11-01-2022 Eosinophils/100 WBC (Bld) 1.7 % . [facility] Erythrocyte distribution wid th Auto (RBC) [Ratio]Ordered By: Taylor Tijerina on 11-01-2022 Erythrocyte distribution width (RBC) [Ratio] 13.6 % 11.9-15.3 [facility] Ferritin [Mass/volume] in Se rum or PlasmaOrdered By: Taylor Tijerina on 11-01-2022 Ferritin [Mass/Vol] 90.9 ng/mL 11.0-306.8 [facility] Globulin Calc (S) [Mass/Vol] Ordered By: Taylor Tijerina on 11-01-2022 Globulin (S) [Mass/Vol] 2.2 g/dL [facility] Glucose [Mass/volume] in Ser um or PlasmaOrdered By: Taylor Tijerina on 11-01-2022 Glucose [Mass/Vol] 118 mg/dL 70-100 [facility] Comment on above: ADA recommended refe rence rangeRandom Glucose Reference Range is dependent on time and content of last meal. Glucose of more than 200 mg/dL in a nonstressed, ambulatory subject supports the diagnosis of Diabetes Mellitus. Hematocrit Auto (Bld) [Volum e fraction]Ordered By: Taylor Tijerina on 11-01-2022 Hematocrit (Bld) [Volume fraction] 37.4 % 34.0-46.4 [facility] Hemoglobin [Mass/volume] in BloodOrdered By: Taylor Tijerina 11-01-2022 Hemoglobin (Bld) [Mass/Vol] 13.0 g/dL 11.8-15.4 [facility] Iron [Mass/volume] in Serum or PlasmaOrdered By: Taylor Tijerina 11-01-2022 Iron [Mass/Vol] 94 ug/dL 50-212 [facility] Iron binding capacity [Mass/ volume] in Serum or PlasmaOrdered By: Taylor Tijerina on 11-01-2022 Iron binding capacity [Mass/Vol] 372 ug/dL 255-450 [facility] Iron saturation [Mass Fracti on] in Serum or PlasmaOrdered By: Taylor Tijerina on 11-01-2022 Iron saturation [Mass fraction] 25.3 % 20-50 [facility] Leukocytes [#/volume] correc shara for nucleated erythrocytes in Blood by Automated counOrdered By: Taylor Tijerina on 11-01-2022 WBC corrected for nucl RBC Auto (Bld) [#/Vol] 6.3 10*3/uL 3.8-11.6 [facility] Lymphocytes Auto (Bld) [#/Vo l]Ordered By: Taylor Tijerina on 11-01-2022 Lymphocytes (Bld) [#/Vol] 1.7 10*3/uL 1.00-4.8 [facility] Lymphocytes/100 WBC Auto (Bl d)Ordered By: Taylor Tijerina on 11-01-2022 Lymphocytes/100 WBC (Bld) 26.9 % . [facility] MCH Auto (RBC) [Entitic mass ]Ordered By: Taylor Tijerina on 11-01-2022 MCH (RBC) [Entitic mass] 33.1 pg 24.7-34.3 [facility] MCHC Auto (RBC) [Mass/Vol]Or dered By: Taylor Tijerina on 11-01-2022 MCHC (RBC) [Mass/Vol] 34.7 g/dL 32.0-35.0 [facility] MCV Auto (RBC) [Entitic vol] Ordered By: Taylor Tijerina on 11-01-2022 MCV (RBC) [Entitic vol] 95.6 fL 80-100 [facility] Monocytes Auto (Bld) [#/Vol] Ordered By: Taylor Tijerina on 11-01-2022 Monocytes (Bld) [#/Vol] 0.6 10*3/uL 0.0-0.8 [facility] Monocytes/100 WBC Auto (Bld) Ordered By: Taylor Tijerina on 11-01-2022 Monocytes/100 WBC (Bld) 9.5 % . [facility] Neutrophils Auto (Bld) [#/Vo l]Ordered By: Taylor Tijerina on 11-01-2022 Neutrophils (Bld) [#/Vol] 3.8 10*3/uL 1.8-7.7 [facility] Neutrophils/100 WBC Auto (Bl d)Ordered By: Taylor Tijerina on 11-01-2022 Neutrophils/100 WBC (Bld) 60.6 % . [facility] No Panel InformationOrdered By: Taylor Tijerina on 11-01-2022 Estimated GFR (CKD-EPI) > 60.0 mL/Min [facility] Creatinine Clearance (Chem 57.26 [facility] Nucleated erythrocytes [Pres ence] in Blood by Automated countOrdered By: Taylor Tijerina on 11-01-2022 Nucleated RBC Auto Ql (Bld) 0.2 /100{WBC} 0-0.5 [facility] Platelet mean volume Auto (B ld) [Entitic vol]Ordered By: Taylor Tijerina on 11-01-2022 Platelet mean volume (Bld) [Entitic vol] 7.1 fL 6.3-10.7 [facility] Platelets Auto (Bld) [#/Vol] Ordered By: Taylor Tijerina on 11-01-2022 Platelets (Bld) [#/Vol] 266 10*3/uL 150-450 [facility] Potassium [Moles/volume] in Serum or PlasmaOrdered By: Taylor Tijerina on 11-01-2022 Potassium [Moles/Vol] 4.3 mmol/L 3.5-5.1 [facility] Protein [Mass/volume] in Ser um or PlasmaOrdered By: Taylor Tijerina on 11-01-2022 Protein [Mass/Vol] 6.0 g/dL 6.4-8.9 [facility] RBC Auto (Bld) [#/Vol]Ordere d By: Taylor Tijerina on 11-01-2022 RBC (Bld) [#/Vol] 3.92 10*6/uL 3.60-5.00 [facility] Serum or plasma albumin/glob ulin mass ratioOrdered By: Taylor Tijerina on 11-01-2022 Albumin/Globulin [Mass ratio] 1.7 {ratio} [facility] Serum or plasma anion gap de terminationOrdered By: Taylor Tijerina on 11-01-2022 Anion gap [Moles/Vol] 11.4 mmol/L 6.0-15.0 [facility] Sodium [Moles/volume] in Ser um or PlasmaOrdered By: Taylor Tijerina on 11-01-2022 Sodium [Moles/Vol] 136 mmol/L 136-145 [facility] Transferrin [Mass/volume] in Serum or PlasmaOrdered By: Taylor Tijerina on 11-01-2022 Transferrin [Mass/Vol] 266 mg/dL 203-362 [facility] Urea nitrogen [Mass/volume] in Serum or PlasmaOrdered By: Taylor Tijerina on 11-01-2022 Urea nitrogen [Mass/Vol] 22 mg/dL 7-25 [facility] WBC Auto (Bld) [#/Vol]Ordere d By: Taylor Tijerina on 11-01-2022 WBC (Bld) [#/Vol] 6.3 10*3/uL 3.8-11.6 [facility] Basophils Auto (Bld) [#/Vol] Ordered By: Emily Degroot on 07-22-2022 Basophils (Bld) [#/Vol] 0.0 10*3/uL 0.0-0.2 [facility] Basophils/100 WBC Auto (Bld) Ordered By: Emily Degroot on 07-22-2022 Basophils/100 WBC (Bld) 0.5 % . [facility] Eosinophils Auto (Bld) [#/Vo l]Ordered By: Emily Degroot on 07-22-2022 Eosinophils (Bld) [#/Vol] 0.1 10*3/uL 0.0-0.45 [facility] Eosinophils/100 WBC Auto (Bl d)Ordered By: Emily Degroot on 07-22-2022 Eosinophils/100 WBC (Bld) 1.8 % . [facility] Erythrocyte distribution wid th Auto (RBC) [Ratio]Ordered By: Emily Degroot on 07-22-2022 Erythrocyte distribution width (RBC) [Ratio] 15.1 % 11.9-15.3 [facility] Ferritin [Mass/volume] in Se rum or PlasmaOrdered By: Emily Degroot on 07-22-2022 Ferritin [Mass/Vol] 27.4 ng/mL 11.0-306.8 [facility] Hematocrit Auto (Bld) [Volum e fraction]Ordered By: Emily Degroot on 07-22-2022 Hematocrit (Bld) [Volume fraction] 39.5 % 34.0-46.4 [facility] Hemoglobin [Mass/volume] in BloodOrdered By: Emily Degroot on 07-22-2022 Hemoglobin (Bld) [Mass/Vol] 13.5 g/dL 11.8-15.4 [facility] Iron [Mass/volume] in Serum or PlasmaOrdered By: Emily Degroot on 07-22-2022 Iron [Mass/Vol] 75 ug/dL 50-212 [facility] Iron binding capacity [Mass/ volume] in Serum or PlasmaOrdered By: Emily Degroot on 07-22-2022 Iron binding capacity [Mass/Vol] 486 ug/dL 255-450 [facility] Iron saturation [Mass Fracti on] in Serum or PlasmaOrdered By: Emily Degroot on 07-22-2022 Iron saturation [Mass fraction] 15.4 % 20-50 [facility] Leukocytes [#/volume] correc shara for nucleated erythrocytes in Blood by Automated counOrdered By: Emily Degroot on 07-22-2022 WBC corrected for nucl RBC Auto (Bld) [#/Vol] 6.2 10*3/uL 3.8-11.6 [facility] Lymphocytes Auto (Bld) [#/Vo l]Ordered By: Emily Degroot on 07-22-2022 Lymphocytes (Bld) [#/Vol] 1.5 10*3/uL 1.00-4.8 [facility] Lymphocytes/100 WBC Auto (Bl d)Ordered By: Emily Degroot on 07-22-2022 Lymphocytes/100 WBC (Bld) 24.3 % . [facility] MCH Auto (RBC) [Entitic mass ]Ordered By: Emily Degroot on 07-22-2022 MCH (RBC) [Entitic mass] 31.7 pg 24.7-34.3 [facility] MCHC Auto (RBC) [Mass/Vol]Or dered By: Emily Degroot on 07-22-2022 MCHC (RBC) [Mass/Vol] 34.1 g/dL 32.0-35.0 [facility] MCV Auto (RBC) [Entitic vol] Ordered By: Emily Degroot on 07-22-2022 MCV (RBC) [Entitic vol] 92.9 fL 80-100 [facility] Monocytes Auto (Bld) [#/Vol] Ordered By: Emily Degroot on 07-22-2022 Monocytes (Bld) [#/Vol] 0.5 10*3/uL 0.0-0.8 [facility] Monocytes/100 WBC Auto (Bld) Ordered By: Emily Degroot on 07-22-2022 Monocytes/100 WBC (Bld) 7.9 % . [facility] Neutrophils Auto (Bld) [#/Vo l]Ordered By: Emily Degroot on 07-22-2022 Neutrophils (Bld) [#/Vol] 4.1 10*3/uL 1.8-7.7 [facility] Neutrophils/100 WBC Auto (Bl d)Ordered By: Emily Degroot on 07-22-2022 Neutrophils/100 WBC (Bld) 65.5 % . [facility] Nucleated erythrocytes [Pres ence] in Blood by Automated countOrdered By: Emily Degroot on 07-22-2022 Nucleated RBC Auto Ql (Bld) 0.1 /100{WBC} 0-0.5 [facility] Platelet mean volume Auto (B ld) [Entitic vol]Ordered By: Emily Degroot on 07-22-2022 Platelet mean volume (Bld) [Entitic vol] 7.1 fL 6.3-10.7 [facility] Platelets Auto (Bld) [#/Vol] Ordered By: Emily Degroot on 07-22-2022 Platelets (Bld) [#/Vol] 308 10*3/uL 150-450 [facility] RBC Auto (Bld) [#/Vol]Ordere d By: Emily Degroot on 07-22-2022 RBC (Bld) [#/Vol] 4.25 10*6/uL 3.60-5.00 [facility] Transferrin [Mass/volume] in Serum or PlasmaOrdered By: Emily Degroot on 07-22-2022 Transferrin [Mass/Vol] 347 mg/dL 203-[facility] W[facility] Auto (Bld) [#/Vol]Ordere d By: Emily Degroot on 07-22-2022 WBC (Bld) [#/Vol] 6.2 10*3/uL 3.8-11.6 [facility] Anisocytosis LM Ql (Bld)Orde red By: Marisabel Noel on 04-23-2022 Anisocytosis Ql (Bld) Moderate [facility] Basophils Auto (Bld) [#/Vol] Ordered By: Marisabel Noel on 04-23-2022 Basophils (Bld) [#/Vol] 0.1 10*3/uL 0.0-0.2 [facility] Basophils/100 WBC Auto (Bld) Ordered By: Marisabel Noel on 04-23-2022 Basophils/100 WBC (Bld) 0.8 % . [facility] CT biopsyOrdered By: Marisabel foss on 04-23-2022 Transferrin [Mass/Vol] 309 mg/dL 180-380 [facility] Eosinophils Auto (Bld) [#/Vo l]Ordered By: Marisabel Noel on 04-23-2022 Eosinophils (Bld) [#/Vol] 0.2 10*3/uL 0.0-0.45 [facility] Eosinophils/100 WBC Auto (Bl d)Ordered By: Marisabel Noel on 04-23-2022 Eosinophils/100 WBC (Bld) 3.3 % . [facility] Erythrocyte distribution wid th Auto (RBC) [Ratio]Ordered By: Marisabel Noel on 04-23-2022 Erythrocyte distribution width (RBC) [Ratio] 16.9 % 11.9-15.3 [facility] Ferritin [Mass/volume] in Se rum or PlasmaOrdered By: Marisabel Noel on 04-23-2022 Ferritin [Mass/Vol] 40.0 ng/mL 11-306.8 [facility] Hematocrit Auto (Bld) [Volum e fraction]Ordered By: Marisabel Noel on 04-23-2022 Hematocrit (Bld) [Volume fraction] 40.2 % 34.0-46.4 [facility] Hemoglobin [Mass/volume] in BloodOrdered By: Marisabel Noel on 04-23-2022 Hemoglobin (Bld) [Mass/Vol] 13.5 g/dL 11.8-15.4 [facility] Hypochromia LM Ql (Bld)Order ed By: Marisabel Noel on 04-23-2022 Hypochromia Ql (Bld) Moderate [facility] Iron [Mass/volume] in Serum or PlasmaOrdered By: Marisabel Noel on 04-23-2022 Iron [Mass/Vol] 73 ug/dL 40-150 [facility] Iron binding capacity [Mass/ volume] in Serum or PlasmaOrdered By: Marisabel Noel on 04-23-2022 Iron binding capacity [Mass/Vol] 433 ug/dL 255-450 [facility] Iron saturation [Mass Fracti on] in Serum or PlasmaOrdered By: Marisabel Noel on 04-23-2022 Iron saturation [Mass fraction] 16.0 % 20-50 [facility] Leukocytes [#/volume] correc shara for nucleated erythrocytes in Blood by Automated counOrdered By: Marisabel Noel on 04-23-2022 WBC corrected for nucl RBC Auto (Bld) [#/Vol] 7.0 10*3/uL 3.8-11.6 [facility] Lymphocytes Auto (Bld) [#/Vo l]Ordered By: Marisabel Noel on 04-23-2022 Lymphocytes (Bld) [#/Vol] 1.4 10*3/uL 1.00-4.8 [facility] Lymphocytes/100 WBC Auto (Bl d)Ordered By: Marisabel Noel on 04-23-2022 Lymphocytes/100 WBC (Bld) 20.8 % . [facility] MCH Auto (RBC) [Entitic mass ]Ordered By: Marisabel Noel on 04-23-2022 MCH (RBC) [Entitic mass] 29.8 pg 24.7-34.3 [facility] MCHC Auto (RBC) [Mass/Vol]Or dered By: Marisabel Noel on 04-23-2022 MCHC (RBC) [Mass/Vol] 33.4 g/dL 32.0-35.0 [facility] MCV Auto (RBC) [Entitic vol] Ordered By: Marisabel Noel on 12-09-2022 MCV (RBC) [Entitic vol] 89.2 fL 80-100 [facility] Microcytes LM Ql (Bld)Ordere d By: Marisabel Noel on 04-23-2022 Microcytes Ql (Bld) Slight [facility] Monocytes Auto (Bld) [#/Vol] Ordered By: Marisabel Noel on 04-23-2022 Monocytes (Bld) [#/Vol] 0.5 10*3/uL 0.0-0.8 [facility] Monocytes/100 WBC Auto (Bld) Ordered By: Marisabel Noel on 04-23-2022 Monocytes/100 WBC (Bld) 6.9 % . [facility] Neutrophils Auto (Bld) [#/Vo l]Ordered By: Marisabel Noel on 04-23-2022 Neutrophils (Bld) [#/Vol] 4.7 10*3/uL 1.8-7.7 [facility] Neutrophils/100 WBC Auto (Bl d)Ordered By: Marisabel Nole on 04-23-2022 Neutrophils/100 WBC (Bld) 68.2 % . [facility] Nucleated erythrocytes [Pres ence] in Blood by Automated countOrdered By: Marisabel Noel on 04-23-2022 Nucleated RBC Auto Ql (Bld) 0.1 /100{WBC} 0-0.5 [facility] Ovalocyte detectionOrdered B y: Marisabel Noel on 04-23-2022 Ovalocytes LM Ql (Bld) Slight [facility] Platelet adequacy [Presence] in Blood by Light microscopyOrdered By: Marisabel Noel on 04-23-2022 Platelets LM Ql (Bld) Normal Normal [facility] Platelet mean volume Auto (B ld) [Entitic vol]Ordered By: Marisabel Noel on 04-23-2022 Platelet mean volume (Bld) [Entitic vol] 6.9 fL 6.3-10.7 [facility] Platelet morphology finding [Identifier] in BloodOrdered By: Marisabel Noel on 04-23-2022 Platelet morphology finding Nom (Bld) Normal Normal [facility] Platelets Auto (Bld) [#/Vol] Ordered By: Marisabel Noel on 04-23-2022 Platelets (Bld) [#/Vol] 298 10*3/uL 150-450 [facility] RBC Auto (Bld) [#/Vol]Ordere d By: Marisabel Noel on 04-23-2022 RBC (Bld) [#/Vol] 4.51 10*6/uL 3.60-5.00 [facility] RBC morphologyOrdered By: Pablo Noel on 04-23-2022 RBC morphology finding Nom (Bld) N/A [facility] Red blood cell stomatocyte d etectionOrdered By: Marisabel oNel on 04-23-2022 Stomatocytes LM Ql (Bld) Slight [facility] WBC Auto (Bld) [#/Vol]Ordere d By: Marisabel Noel on 04-23-2022 WBC (Bld) [#/Vol] 7.0 10*3/uL 3.8-11.6 [facility] Basophils Auto (Bld) [#/Vol] Ordered By: Taylor Tijerina on 02-18-2022 Basophils (Bld) [#/Vol] N/A [facility] Basophils/100 WBC Auto (Bld) Ordered By: Taylor Tijerina on 02-18-2022 Basophils/100 WBC (Bld) N/A [facility] Basophils/100 WBC (Bld) 1 % 0-2 [facility] Blood anisocytosis detection Ordered By: Taylor Tijerina on 02-18-2022 Anisocytosis Ql (Bld) Marked [facility] Blood hemoglobin measurement (mass/volume)Ordered By: Taylor Tijerina on 02-18-2022 Hemoglobin (Bld) [Mass/Vol] 11.1 g/dL 11.8-15.4 [facility] Blood leukocytes automated c ount (number/volume)Ordered By: Taylor Tijerina on 02-18-2022 WBC (Bld) [#/Vol] 4.5 10*3/uL 4.5-11.[address] [facility] [address] biopsyOrdered By: Taylor Trammell on 02-18-2022 Transferrin [Mass/Vol] 297 mg/dL 180-380 [facility] Eosinophils Auto (Bld) [#/Vo l]Ordered By: Taylor Tijerina on 02-18-2022 Eosinophils (Bld) [#/Vol] N/A [facility] Eosinophils/100 WBC Auto (Bl d)Ordered By: Taylor Tijerina on 02-18-2022 Eosinophils/100 WBC (Bld) N/A [facility] Erythrocyte distribution wid th Auto (RBC) [Ratio]Ordered By: Taylor Tijerina on 02-18-2022 Erythrocyte distribution width (RBC) [Ratio] 38.8 % 11.9-15.3 [facility] Ferritin [Mass/volume] in Se rum or PlasmaOrdered By: Taylor Tijerina on 02-18-2022 Ferritin [Mass/Vol] 229.8 ng/mL 11-306.8 [facility] Hematocrit Auto (Bld) [Volum e fraction]Ordered By: Taylor Tijerina on 02-18-2022 Hematocrit (Bld) [Volume fraction] 35.2 % 34.0-46.4 [facility] Hypochromia detectionOrdered By: Taylor Tijerina on 02-18-2022 Hypochromia Ql (Bld) Marked [facility] Iron [Mass/volume] in Serum or PlasmaOrdered By: Taylor Tijerina on 02-18-2022 Iron [Mass/Vol] 116 ug/dL 40-150 [facility] Iron binding capacity [Mass/ volume] in Serum or PlasmaOrdered By: Taylor Tijerina on 02-18-2022 Iron binding capacity [Mass/Vol] 416 ug/dL 255-450 [facility] Iron saturation [Mass Fracti on] in Serum or PlasmaOrdered By: Taylor Tijerina on 02-18-2022 Iron saturation [Mass fraction] 27.0 % 20-50 [facility] Laboratory - Hematology and Cell countsOrdered By: Taylor Tijerina on 02-18-2022 Band form neutrophils/100 WBC (Bld) 2 % 0-5 [facility] Nucleated RBC/100 WBC (Bld) [Ratio] 0.1 % 0-0.5 [facility] Lymphocytes Auto (Bld) [#/Vo l]Ordered By: Taylor Tijerina on 02-18-2022 Lymphocytes (Bld) [#/Vol] N/A [facility] Lymphocytes/100 WBC Auto (Bl d)Ordered By: Taylor Tijerina on 02-18-2022 Lymphocytes/100 WBC (Bld) N/A [facility] Lymphocytes/100 WBC (Bld) 21 % 18-42 [facility] Lymphocytes/100 WBC Manual c nt (Bld)Ordered By: Taylor Tijerina on 02-18-2022 Lymphocytes/100 WBC (Bld) 2 % 0-12 [facility] MCH Auto (RBC) [Entitic mass ]Ordered By: Taylor Tijerina on 02-18-2022 MCH (RBC) [Entitic mass] 24.7 pg 24.7-34.3 [facility] MCHC Auto (RBC) [Mass/Vol]Or dered By: Taylor Tijerina on 02-18-2022 MCHC (RBC) [Mass/Vol] 31.6 g/dL 32.0-35.0 [facility] MCV Auto (RBC) [Entitic vol] Ordered By: Taylor Tijerina on 02-18-2022 MCV (RBC) [Entitic vol] 78.3 fL 80-100 [facility] Macrocytes detectionOrdered By: Taylor Tijerina on 02-18-2022 Macrocytes Ql (Bld) Moderate [facility] Monocytes Auto (Bld) [#/Vol] Ordered By: Taylor Tijerina on 02-18-2022 Monocytes (Bld) [#/Vol] N/A [facility] Monocytes/100 WBC Auto (Bld) Ordered By: Taylor Tijerina on 02-18-2022 Monocytes/100 WBC (Bld) N/A [facility] Monocytes/100 WBC Manual cnt (Bld)Ordered By: Taylor Tijerina on 02-18-2022 Monocytes/100 WBC (Bld) 6 % 2-11 [facility] Neutrophils Auto (Bld) [#/Vo l]Ordered By: Taylor Tijerina on 02-18-2022 Neutrophils (Bld) [#/Vol] N/A [facility] Neutrophils/100 WBC Auto (Bl d)Ordered By: Taylor Tijerina on 02-18-2022 Neutrophils/100 WBC (Bld) N/A [facility] No Panel InformationOrdered By: Taylor Tijerina on 02-18-[address] [facility] Platelet Estimate Normal Normal [facility] Platelet Morphology Comment Normal Normal [facility] Platelet mean volume Auto (B ld) [Entitic vol]Ordered By: Taylor Tijerina on 02-18-2022 Platelet mean volume (Bld) [Entitic vol] 8.4 fL 6.3-10.7 [facility] Platelets Auto (Bld) [#/Vol] Ordered By: Taylor Tijerina on 02-18-2022 Platelets (Bld) [#/Vol] 363 10*3/uL 150-450 [facility] RBC Auto (Bld) [#/Vol]Ordere d By: Taylor Tijerina on 02-18-2022 RBC (Bld) [#/Vol] 4.49 10*6/uL 3.60-5.00 [facility] RBC morphologyOrdered By: Ana Laura Tijerina on 02-18-2022 RBC morphology finding Nom (Bld) N/A [facility] Red blood cell stomatocyte d etectionOrdered By: Taylor Tijerina on 02-18-2022 Stomatocytes LM Ql (Bld) Slight [facility] Segmented neutrophils/100 WB C Manual cnt (Bld)Ordered By: Taylor Tijerina on 02-18-2022 Segmented neutrophils/100 WBC (Bld) 68 % 50-70 [facility] Progress Noteson 02-17-2022 [employer] Authentication Interface Message Text EMERGENCY TRIAGE, TREAT AND TRANSPORT (ET3) DOCUMENTATION OF TELEHEALTH VISIT Date / Time: 02/17/2022916 Name: Nuvia Martin : 1945 SSN: [id number] EMS Agency: [facility] [x] Verbal consent obtained [] [...] Completed by: Cassidy Julio MD Normal [facility] CT FACIAL BONES WO CONon CT [...] Date: 2022-01-14 02:14 Normal [facility] XR CHEST 1 Von 01-14-2022 XR [...] Date: 2022-01-14 03:18 Normal [facility] Albumin [Mass/volume] in Ser um or PlasmaOrdered By: Taylor Tijerina on 01-12-2022 Albumin [Mass/Vol] 3.1 g/dL 2.9-4.4 [facility] Basophils Auto (Bld) [#/Vol] Ordered By: Taylor Tijerina on 01-12-2022 Basophils (Bld) [#/Vol] 0.1 10*3/uL 0.0-0.2 [facility] Basophils/100 WBC Auto (Bld) Ordered By: Taylor Tijerina on 01-12-2022 Basophils/100 WBC (Bld) 0.9 % . [facility] Blood anisocytosis detection Ordered By: Taylor Tijerina on 01-12-2022 Anisocytosis Ql (Bld) Moderate [facility] Blood hemoglobin measurement (mass/volume)Ordered By: Taylor Tijerina on 01-12-2022 Hemoglobin (Bld) [Mass/Vol] 8.2 g/dL 11.8-15.4 [facility] Blood leukocytes automated c ount (number/volume)Ordered By: Taylor Tijerina on 01-12-2022 WBC (Bld) [#/Vol] 6.0 10*3/uL 4.5-11.0 [facility] Blood polychromasia detectio n by light microscopyOrdered By: Taylor Tijerina on 01-12-2022 Polychromasia LM Ql (Bld) Slight [facility] Body fluid albumin measureme nt (mass/volume)Ordered By: Taylor Tijerina on 01-12-2022 Albumin (Body fld) [Mass/Vol] 2.9 g/dL 3.2-5.[address] [facility] [address] biopsyOrdered By: Taylor Trammell on 01-12-2022 Transferrin [Mass/Vol] 479 mg/dL 180-380 [facility] Creatinine and Glomerular fi ltration rate.predicted panel (S/P/Bld)Ordered By: Taylor Tijerina on 01-12-2022 Creatinine [Mass/Vol] 0.76 mg/dL 0.44-1.03 [facility] Eosinophils Auto (Bld) [#/Vo l]Ordered By: Taylor Tijerina on 01-12-2022 Eosinophils (Bld) [#/Vol] 0.1 10*3/uL 0.0-0.45 [facility] Eosinophils/100 WBC Auto (Bl d)Ordered By: Taylor Tijerina on 01-12-2022 Eosinophils/100 WBC (Bld) 1.3 % . [facility] Erythrocyte distribution wid th Auto (RBC) [Ratio]Ordered By: Taylor Tijerina on 01-12-2022 Erythrocyte distribution width (RBC) [Ratio] 22.4 % 11.9-15.3 [facility] Erythrocyte sedimentation ra te by Photometric methodOrdered By: Taylor Tijerina on 01-12-2022 ESR Photometric method (Bld) [Velocity] 21 mm/hr 0-29 [facility] Estimated glomerular filtrat ion rate (GFR) non- AmericanOrdered By: Taylor Tijerina on 01-12-2022 GFR/1.73 sq M.predicted among non-blacks MDRD (S/P/Bld) [Vol rate/Area] > 60 mL/Min [facility] Ferritin [Mass/volume] in Se rum or PlasmaOrdered By: Taylor Tijerina on 01-12-2022 Ferritin [Mass/Vol] 10.8 ng/mL 11-306.8 [facility] Folate [Mass/volume] in Seru m or PlasmaOrdered By: Taylor Tijerina on 01-12-2022 Folate [Mass/Vol] ng/mL >5.9 [facility] Comment on above: Folate reference ran ge: >5.9 ng/ml The WHO technical consultation on folate and vitamin b12 deficiencies has determined that folate concentrations less than 4 ng/ml are considered deficient. Folate reference ran ge: >5.9 ng/mlThe WHO technical consultation on folate and vitamin [id number] has determined that folate concentrations lessthan 4 ng/ml are considered deficient. Globulin Calc (S) [Mass/Vol] Ordered By: Taylor Tijerina on 01-12-2022 Globulin (S) [Mass/Vol] 3.1 g/dL [facility] Hematocrit Auto (Bld) [Volum e fraction]Ordered By: Taylor Tijerina on 01-12-2022 Hematocrit (Bld) [Volume fraction] 27.4 % 34.0-46.4 [facility] Hypochromia detectionOrdered By: Taylor Tijerina on 01-12-2022 Hypochromia Ql (Bld) Moderate [facility] IgA [Mass/volume] in Serum o r PlasmaOrdered By: Taylor Tijerina on 01-12-2022 IgA [Mass/Vol] 206 mg/dL 64-422 [facility] IgG [Mass/volume] in Serum o r PlasmaOrdered By: Taylor Tijeirna on 01-12-2022 IgG [Mass/Vol] 1070 mg/dL 586-1602 [facility] IgM [Mass/volume] in Serum o r PlasmaOrdered By: Taylor Tijerina on 01-12-2022 IgM [Mass/Vol] 166 mg/dL 26-217 [facility] Comment on above: Performed at: [employer] [facility] [employer] [address] [id number] Motorcycle Fabricator: Carlos Mcintyre PhD, Phone: [phone] Performed at: [employer] [address] [id number] Director: Carlos Mcintyre PhD, Phone: [phone] Immunoglobulin light chains. kappa.free [Mass/volume] in SerumOrdered By: Taylor Tijerina on 01-12-2022 Immunoglobulin light chains.kappa.free (S) [Mass/Vol] 44.4 mg/L 3.3-19.4 [facility] Immunoglobulin light chains. kappa.free/Immunoglobulin light chains.lambda.free [MassOrdered By: Taylor Tijerina on 01-12-2022 Immunoglobulin light chains.kappa.free/Immun oglobulin light chains.lambda.free (S) [Mass ratio] 1.60 0.26-1.65 [facility] Comment on above: Performed at: [employer] [address] [id number] Motorcycle Fabricator: Carlos Mcintyre PhD, Phone: [phone] Performed at: [employer] [address] [id number] Director: Carlos Mcintyre PhD, Phone: [phone] Immunoglobulin light chains. lambda.free [Mass/volume] in Serum or PlasmaOrdered By: Taylor Tijerina on 01-12-2022 Immunoglobulin light chains.lambda.free [Mass/Vol] 27.7 mg/L 5.7-26.3 [facility] Iron [Mass/volume] in Serum or PlasmaOrdered By: Taylor Tijerina on 01-12-2022 Iron [Mass/Vol] 10 ug/dL 40-150 [facility] Iron binding capacity [Mass/ volume] in Serum or PlasmaOrdered By: Taylor Tijerina on 01-12-2022 Iron binding capacity [Mass/Vol] 671 ug/dL 255-450 [facility] Iron saturation [Mass Fracti on] in Serum or PlasmaOrdered By: Taylor Tijerina on 01-12-2022 Iron saturation [Mass fraction] 1.0 % 20-50 [facility] Laboratory - Chemistry and C hemistry - challengeOrdered By: Taylor Tijerina on 01-12-2022 Cobalamin (Vitamin B12) [Mass/Vol] 700 pg/mL 180-914 [facility] - Hematology and Cell countsOrdered By: Taylor Tijerina on 01-12-2022 Nucleated RBC/100 WBC (Bld) [Ratio] 0.2 % 0-0.5 [facility] Lymphocytes Auto (Bld) [#/Vo l]Ordered By: Taylor Tijerina on 01-12-2022 Lymphocytes (Bld) [#/Vol] 1.1 10*3/uL 1.00-4.8 [facility] Lymphocytes/100 WBC Auto (Bl d)Ordered By: Taylor Tijerina on 01-12-2022 Lymphocytes/100 WBC (Bld) 17.7 % . [facility] Lymphocytes/100 WBC (Bld) 25 % 18-42 [facility] MCH Auto (RBC) [Entitic mass ]Ordered By: Taylor Tijerina on 01-12-2022 MCH (RBC) [Entitic mass] 18.6 pg 24.7-34.3 [facility] MCHC Auto (RBC) [Mass/Vol]Or dered By: Taylor Tijerina on 01-12-2022 MCHC (RBC) [Mass/Vol] 29.8 g/dL 32.0-35.0 [facility] MCV Auto (RBC) [Entitic vol] Ordered By: Taylor Tijerina on 01-12-2022 MCV (RBC) [Entitic vol] 62.5 fL 80-100 [facility] Macrocytes detectionOrdered By: Taylor Tijerina on 01-12-2022 Macrocytes Ql (Bld) Slight [facility] Monocyte %Ordered By: Taylor dhillonedwar on 01-12-2022 Monocytes/100 WBC (Bld) 1 % 1-3 [facility] Monocytes Auto (Bld) [#/Vol] Ordered By: Taylor Chengpranay on 01-12-2022 Monocytes (Bld) [#/Vol] 0.5 10*3/uL 0.0-0.8 [facility] Monocytes/100 WBC Auto (Bld) Ordered By: Taylor Lilliana on 01-12-2022 Monocytes/100 WBC (Bld) 8.4 % . [facility] Monocytes/100 WBC Manual cnt (Bld)Ordered By: Taylor Lilliana on 01-12-2022 Monocytes/100 WBC (Bld) 6 % 2-11 [facility] Neutrophils Auto (Bld) [#/Vo l]Ordered By: Taylor Chengpranay on 01-12-2022 Neutrophils (Bld) [#/Vol] 4.3 10*3/uL 1.8-7.7 [facility] Neutrophils/100 WBC Auto (Bl d)Ordered By: Taylor Lilliana on 01-12-2022 Neutrophils/100 WBC (Bld) 71.7 % . [facility] No Panel InformationOrdered By: Taylor Chengpranay on 01-12-2022 Absolute Reticulocyte Count 0.213 10*6/uL 0.024-0.084 [facility] Estimated GFR () > 60 mL/Min [facility] Comment on above: GFR estimated refere nce range: According to KDOQI guidelines, <60 ml/min/1.73m2 is sufficient to diagnose a patient with chronic kidney disease. Microcytosis Slight [facility] Percent Reticulocyte Count 4.9 % 0.5-1.5 [facility] Creatinine Clearance (Chem 60.82 [facility] Platelet Estimate Normal Normal [facility] Platelet Morphology Comment Normal Normal [facility] Protein Electrophoresis M-Brooks Comment: g/dL Not Observed [facility] Comment on above: SPE shows asymmetric al gamma. Protein Electrophoresis Note See comment . [facility] Comment on above: Protein electrophore sis scan will follow via computer, mail, or payroll accounting clerk delivery. Performed at: [address] [id number] Motorcycle Fabricator: Carlos Mcintyre PhD, Phone: [phone] Protein electrophore sis scan will follow via computer,mail, or payroll accounting clerk delivery.Performed at: [facility] [employer] [facility] [place] [id number] Director: Carlos Mcintyre PhD, Phone: [phone] Serum Immunofixation Comment: . [facility] Comment on above: Presence of monoclon [...] volume (Bld) [Entitic vol] 8.4 fL 6.3-10.7 [facility] Platelets Auto (Bld) [#/Vol] Ordered By: Taylor Tijerina on 01-12-2022 Platelets (Bld) [#/Vol] 386 10*3/uL 150-450 [facility] Protein [Mass/volume] in Ser um or PlasmaOrdered By: Taylor Tijerina on 01-12-2022 Protein [Mass/Vol] 6.0 g/dL 6.1-7.9 [facility] Protein [Mass/Vol] 6.4 g/dL 6.0-8.5 [facility] RBC Auto (Bld) [#/Vol]Ordere d By: Taylor Tijerian on 01-12-2022 RBC (Bld) [#/Vol] 4.38 10*6/uL 3.60-5.00 [facility] RBC morphologyOrdered By: Ana Laura Tijerina on 01-12-2022 RBC morphology finding Nom (Bld) N/A [facility] Segmented neutrophils/100 WB C Manual cnt (Bld)Ordered By: Taylor Tijerina on 01-12-2022 Segmented neutrophils/100 WBC (Bld) 68 % 50-70 [facility] Serum globulin measurement ( mass/volume)Ordered By: Taylor Tijerina on 01-12-2022 Globulin (S) [Mass/Vol] 3.3 g/dL 2.2-3.9 [facility] Serum or plasma alanine terry otransferase measurement without P-5'-P (enzymatic activiOrdered By: Taylor Tijerina on 01-12-2022 ALT No additional P-5'-P [Catalytic activity/Vol] 25 U/L 10-60 [facility] Serum or plasma albumin/glob ulin mass ratioOrdered By: Taylor Tijerina on 01-12-2022 Albumin/Globulin [Mass ratio] 0.9 {ratio} 0.7-1.7 [facility] Serum or plasma alkaline ariella sphatase measurement (enzymatic activity/volume)Ordered By: Taylor Tijerina on 01-12-2022 ALP [Catalytic activity/Vol] 52 U/L 32-92 [facility] Serum or plasma alpha 1 glob ulin measurement by electrophoresis (mass/volume)Ordered By: Taylor Tijerina on 01-12-2022 Alpha 1 globulin Elph [Mass/Vol] 0.3 g/dL 0.0-0.4 [facility] Serum or plasma alpha 2 glob ulin measurement by electrophoresis (mass/volume)Ordered By: Taylor Tijerina on 01-12-2022 Alpha 2 globulin Elph [Mass/Vol] 0.8 g/dL 0.4-1.0 [facility] Serum or plasma anion gap de terminationOrdered By: Taylor Tijerina on 01-12-2022 Anion gap [Moles/Vol] 16.3 mmol/L 6.0-15.0 [facility] Serum or plasma aspartate am inotransferase measurement (enzymatic activity/volume)Ordered By: Taylor Tijerina on 01-12-2022 AST [Catalytic activity/Vol] 42 U/L 10-42 [facility] Serum or plasma beta globuli n measurement by electrophoresis (mass/volume)Ordered By: Taylor Tijerina on 01-12-2022 Beta globulin Elph [Mass/Vol] 1.1 g/dL 0.7-1.3 [facility] Serum or plasma calcium jake urement (mass/volume)Ordered By: Taylor Tijerina on 01-12-2022 Calcium [Mass/Vol] 8.8 mg/dL 8.2-10.2 [facility] Serum or plasma chloride jie surement (moles/volume)Ordered By: Taylor Lilliana on 01-12-2022 Chloride [Moles/Vol] 84 mmol/L 95-114 [facility] Serum or plasma erythropoiet in (EPO) measurement (units/volume)Ordered By: Taylor Lilliana on 01-12-2022 Erythropoietin (EPO) Qn 745.9 mIU/mL 2.6-18.5 [facility] Comment on above: Evir[employer] el DxI 800 Immunoassay System Values obtained with different assay methods or kits cannot be used interchangeably. Results cannot be interpreted as absolute evidence of the presence or absence of malignant disease. Performed at: [facility] [address] [id number] Motorcycle Fabricator: Carlos Mcintyre PhD, Phone: [phone] [employer] 800 Immunoassay SystemValues obtained with different assay methods or kits cannotbe used interchangeably. Results cannot be interpreted asabsolute evidence of the presence or absence of malignantdisease.Performed at: [facility] [address] [id number] Director: Carlos Mcintyre PhD, Phone: [phone] Serum or plasma gamma globul in measurement by electrophoresis (mass/volume)Ordered By: Taylor Tijerina on 01-12-2022 Gamma globulin Elph [Mass/Vol] 1.1 g/dL 0.4-1.8 [facility] Serum or plasma glucose jake urement (mass/volume)Ordered By: Taylor Tijerina on 01-12-2022 Glucose [Mass/Vol] 106 mg/dL 70-100 [facility] Comment on above: ADA recommended [...] plasma potassium me asurement (moles/volume)Ordered By: Taylor Lilliana on 01-12-2022 Potassium [Moles/Vol] 4.0 mmol/L 3.5-5.1 [facility] Serum or plasma sodium measu rement (moles/volume)Ordered By: Taylor Lilliana on 01-12-2022 Sodium [Moles/Vol] 125 mmol/L 136-146 [facility] Serum or plasma total biliru bin measurement (mass/volume)Ordered By: Taylor Lilliana on 01-12-2022 Bilirubin [Mass/Vol] 1.0 mg/dL 0.3-1.2 [facility] Serum or plasma total carbon dioxide measurement (moles/volume)Ordered By: Taylor Lilliana on 01-12-2022 CO2 [Moles/Vol] 28.7 mmol/L 22.0-30.0 [facility] Serum or plasma urea nitroge n measurement (mass/volume)Ordered By: Taylor Lilliana on 01-12-2022 Urea nitrogen [Mass/Vol] 9 mg/dL 9- [facility] BNPon 11-24-2021 Natriuretic peptide B (Bld) [Mass/Vol] 591.0 pg/mL Normal <=900.0 [facility] Comment on above: Performed By: #### C TIFFANY BNP #### [facility] [address] [place] [address] Dr. Good Montiel CBC AUTO DIFFon 11-24-2021 BASO # 0.1 103/ul Normal 0.0-0.1 [facility] Comment on above: Performed By: #### C TIFFANY CMADM #### [facility] [address] [address] [address] Good Montiel Basophils/100 WBC (Bld) 0.7 % Normal 0.2-2.0 [facility] Comment on above: Performed By: #### C TIFFANY CMADM #### [facility] [address] [place] [address] Dr. Good Montiel EO # 0.2 103/ul Normal 0.0-0.7 [facility] Comment on above: Performed By: #### C SERAFIN ALLEN #### [facility] [address] [address] [address] Good Montiel Eosinophils/100 WBC (Bld) 2.4 % Normal 0.9-7.0 [facility] Comment on above: Performed By: #### C MP, CMADM #### [facility] [address] [place] [address] Dr. Good Montiel Erythrocyte distribution width (RBC) [Ratio] 19.1 % Critically high 11.0-15.0 [facility] Comment on above: Performed By: #### C TIFFANY, CMADM #### [facility] [address] [place] [address] Dr. Good Montiel Hematocrit (Bld) [Volume fraction] 25.5 % Critically low 36.0-48.0 [facility] Comment on above: Performed By: #### C TIFFANY, CMADM #### [facility] [address] [place] [address] Dr. Good Montiel Hemoglobin (Bld) [Mass/Vol] 7.4 g/dL Critically low 12.0-16.0 [facility] Comment on above: Performed By: #### C TIFFANY, CMADM #### [facility] [address] [place] [address] Dr. Good Montiel IG # 0.05 10e3/ul Critically high 0.00-0.03 [facility] Comment on above: Performed By: #### C TIFFANY, CMADM #### [facility] [address] [place] [address] Dr. Good Montiel IG % 0.6 % Critically high 0.0-0.5 [facility] Comment on above: Performed By: #### C MP, CMADM #### [facility] [address] [place] [address] Dr. Good Montiel LYMPH # 1.7 103/ul Normal 1.2-3.8 [facility] Comment on above: Performed By: #### C TIFFANY, CMADM #### [facility] [address] [place] [address] Dr. Good Montiel Lymphocytes/100 WBC (Bld) 20.6 % Normal 20.5-60.0 [facility] Comment on above: Performed By: #### C TIFFANY, CMADM #### [facility] [address] [place] [address] Dr. Good Montiel MANUAL DIFF REQ NO Normal [facility] Comment on above: Performed By: #### C MP, CMADM #### [facility] [address] [place] [address] Dr. Good Montiel MCH (RBC) [Entitic mass] 18.9 pg Critically low 26.7-34.0 [facility] Comment on above: Performed By: #### C TIFFANY, CMADM #### [facility] [address] [place] [address] Dr. Good Montiel MCHC (RBC) [Mass/Vol] 29.0 g/dL Critically low 29.9-35.2 [facility] Comment on above: Performed By: #### C TIFFANY, CMADM #### [facility] [address] [place] [address] Dr. Good Montiel MCV (RBC) [Entitic vol] 65.2 fL Critically low 81.0-99. 0 [facility] Comment on above: Performed By: #### C ITFFANY, DOUGLASDM #### [facility] [address] [place] [address] Dr. Good Montiel MONO # 0.8 103/ul Normal 0.3-0.8 [facility] Comment on above: Performed By: #### C TIFFANY, CMADM #### [facility] [address] [place] [address] Dr. Good Montiel Monocytes/100 WBC (Bld) 9.4 % Normal 1.7-12.0 [facility] Comment on above: Performed By: #### C TIFFANY, CMADM #### [facility] [address] [place] [address] Dr. Good Montiel NEUT # 5.5 103/ul Normal 1.4-6.5 [facility] Comment on above: Performed By: #### C TIFFANY, CMADM #### [facility] [address] [place] [address] Dr. Good Montiel Neutrophils/100 WBC (Bld) 66.3 % Normal 43.0-75.0 [facility] Comment on above: Performed By: #### C TIFFANY, CMADM #### [facility] [address] [place] [address] Dr. Good Montiel Platelet mean volume (Bld) [Entitic vol] 9.1 fL Critically low 9.5-13.5 [facility] Comment on above: Performed By: #### C TIFFANY, CMADM #### [facility] [address] [place] [address] Dr. Good Montiel PLT 431 103/ul Normal 150-450 [facility] Comment on above: Performed By: #### C TIFFANY, CMADM #### [facility] [address] [place] [address] Dr. Good Montiel RBC 3.91 106/ul Critically low 4.20-5.40 [facility] Comment on above: Performed By: #### C TIFFANY, CMADM #### [facility] [address] [place] [address] Dr. Good Montiel WBC 8.3 103/ul Normal 4.0-11.0 [facility] Comment on above: Performed By: #### C TIFFANY, CMADM #### [facility] [address] [place] [address] Dr. Good Montiel Cov[facility]on 11-13 SARS-CoV-2 (COVID-19) RNA FELECIA+probe Ql (Unsp spec) Not detected Normal NOT DETECTED [facility] Comment on above: Result Comment: When [...] for this test is supported by the [employer]er of Health and Human Service's declaration that [...] By: #### M MA2 #### [facility] [address] [place] [address] Dr. Good Montiel PROF 14(COMP METB)on 022 Albumin [Mass/Vol] 3.1 g/dL Critically low 3.4-5.0 [facility] Comment on above: Performed By: #### C MP, BNP #### [facility] [address] [place] [address] Dr. Good Montiel Albumin/Globulin [Mass ratio] 0.9 {ratio} Normal [facility] Comment on above: Performed By: #### C MP, BNP #### [facility] [address] [place] [address] Dr. Good Montiel ALP [Catalytic activity/Vol] 60 U/L Normal 46-116 [facility] Comment on above: Performed By: #### C MP, BNP #### [facility] [address] [place] [address] Dr. Good Montiel ALT [Catalytic activity/Vol] 30 U/L Normal 14-59 [facility] Comment on above: Performed By: #### C MP, BNP #### [facility] [address] [place] [address] Dr. Good Montiel Anion gap [Moles/Vol] 10.1 mmol/L Normal [facility] Comment on above: Performed By: #### C MP, BNP #### [facility] [address] [place] [address] Dr. Good Montiel AST [Catalytic activity/Vol] 32 U/L Normal 15-37 [facility] Comment on above: Performed By: #### C MP, BNP #### [facility] [address] [place] [address] Dr. Good Montiel Bilirubin [Mass/Vol] 0.7 mg/dL Normal 0.2-1.0 [facility] Comment on above: Performed By: #### C MP, BNP #### [facility] [address] [place] [address] Dr. Good Montiel Calcium [Mass/Vol] 8.7 mg/dL Normal 8.5-10.1 [facility] Comment on above: Performed By: #### C MP, BNP #### [facility] [address] [address] [address] Good Montiel Chloride [Moles/Vol] 93 mmol/L Critically low 98-107 [facility] Comment on above: Performed By: #### C MP, BNP #### [facility] [address] [place] [address] Dr. Good Montiel CO2 [Moles/Vol] 27.5 mmol/L Normal 21.0-32.[address] [facility] Comment on above: Performed By: #### C MP, BNP #### [facility] [address] [place] [address] Dr. Good Montiel Creatinine [Mass/Vol] 0.80 mg/dL Normal 0.55-1.02 [facility] Comment on above: Performed By: #### C MP, BNP #### [facility] [address] [place] [address] Dr. Good Montiel EGFR-AF TONGAN >60 Normal >=[address] [facility] Comment on above: Performed By: #### C MP, BNP #### [facility] [address] [place] [address] Dr. Good Montiel EGFR-NON AF TONGAN >60 Normal >=60 [facility] Comment on above: Performed By: #### C MP, BNP #### [facility] [address] [place] [address] Dr. Good Montiel Globulin (S) [Mass/Vol] 3.5 g/dL Normal [facility] Comment on above: Performed By: #### C MP, BNP #### [facility] [address] [place] [address] Dr. Good Montiel Glucose [Mass/Vol] 146 mg/dL Critically high 74-106 [facility] Comment on above: Performed By: #### C MP, BNP #### [facility] [address] [address] [address] Good Montiel Potassium [Moles/Vol] 3.6 mmol/L Normal 3.5-5.1 [facility] Comment on above: Performed By: #### C MP, BNP #### [facility] [address] [address] [address] Good Mnotiel Protein [Mass/Vol] 6.6 g/dL Normal 6.4-8.2 [facility] Comment on above: Performed By: #### C MP, BNP #### [facility] [address] [address] [address] Good Montiel Sodium [Moles/Vol] 127 mmol/L Critically low 136-145 [facility] Comment on above: Performed By: #### C MP, BNP #### [facility] [address] [address] [address] Good Montiel Urea nitrogen [Mass/Vol] 19.0 mg/dL Critically high 7.0-18.0 [facility] Comment on above: Performed By: #### C MP, BNP #### [facility] [address] [address] [address] Good Motniel Urea nitrogen/Creatinine [Mass ratio] 23.8 mg/mg Normal [facility] Comment on above: Performed By: #### C MP, BNP #### [facility] [address] [place] [address] Dr. Good Montiel XR CHEST 1 11-24-2021 XR CHEST 1 V CHEST X-RAY [...] by: KETAN ALVAREZ Date: 2021-11-24 00:21 Normal [facility] CT LUNG CANCER SCREENINGon 0 11-10-2021 [...] by: ARIAN VARGAS Date: 2021-11-10 10:55 Normal [facility] MAMM SCREEN 3D [place] CADon 11-10-2021 MAMM SCREEN 3D [place] CAD Patient: NUVIA MARTIN Exam Date: 11/10/2021 : 1945 Gender:F Ordering : DR LATONYA JOSEPH PA Admission #: [id number] Family : Order #: [id number] CLICK HERE TO VIEW EXAM RADIOLOGY REPORT [...] at age 62. LOCATION: [facility] BREAST COMPOSITION: Scattered areas fibroglandular density. [...] Vargas MD on 11/12/2021 at 08:03 Normal [facility] XR DEXA BONE DENSITYon 11-10 XR [...] by: ARIAN VARGAS Date: 2021-11-10 17:06 Normal [facility] Comprehensive Metabolic Pane bing 10-01-2021 Albumin [Mass/Vol] 3.9 g/dL Normal 3.6-5.1 [facility] [employer] Comment on above: Performed By: #### C MP #### [facility] [address], [place] [id number] Albumin/Globulin [Mass ratio] 1.4 {ratio} Normal 1.0-2.5 [facility] [employer] Comment on above: Performed By: #### C MP #### [facility] [address], [place] [id number] ALP [Catalytic activity/Vol] 51 U/L Normal 35-119 [facility] Comment on above: Performed By: #### C MP #### [facility] [address] [id number] ALT [Catalytic activity/Vol] 15 U/L Normal 6-33 [facility] Comment on above: Result Comment: 04/15 Female reference range changed. Performed By: #### C MP #### [facility] [address] [id number] Anion gap [Moles/Vol] 18 mmol/L Normal 12-20 [facility] Comment on above: Result Comment: Effe ctive 05/21/2019 reference range changed. Performed By: #### C MP #### [facility] [address] [facility] [place] [id number] AST [Catalytic activity/Vol] 20 U/L Normal 9-34 [facility] Comment on above: Performed By: #### C MP #### [facility] [address] [facility] [id number] BUN/CREA 18 Ratio Normal 6-22 [facility] Comment on above: Performed By: #### C MP #### [facility] [address] [facility] [id number] Calcium [Mass/Vol] 9.8 mg/dL Normal 8.6-10.2 [facility] Comment on above: Performed By: #### C MP #### [facility] [address] [facility] [place] [id number] Chloride [Moles/Vol] 88 mmol/L Low 98-107 [facility] Comment on above: Performed By: #### C MP #### [facility] [address] [id number] CO2 [Moles/Vol] 23 mmol/L Normal 20-31 [facility] Comment on above: Performed By: #### C MP #### [facility] [address] [facility] [id number] Creatinine [Mass/Vol] 0.9 mg/dL Normal 0.6-1.4 [facility] Comment on above: Performed By: #### C MP #### [facility] [address] [id number] eGFRAA 77 mL/min/1.73m2 Normal >60 [facility] Comment on above: Performed By: #### C MP #### [facility] [address], [place] [id number] eGFRNAA 64 mL/min/1.73m2 Normal >60 [facility] Comment on above: Performed By: #### C MP #### [facility] [address], [place] [id number] Globulin (S) [Mass/Vol] 2.7 g/dL Normal 1.9-3.7 [facility] Comment on above: Performed By: #### C MP #### [facility] [address], [place] [id number] Glucose [Mass/Vol] 151 mg/dL High 65-99 [facility] Comment on above: Result Comment: For FASTING Glucose --- ADA reference ranges: Normal 65-99 mg/dl Prediabetes 100-125 Diabetes >/= 126 Performed By: #### C MP #### [facility] [address], [place] [id number] Potassium [Moles/Vol] 4.5 mmol/L Normal 3.5-5.5 [facility] Comment on above: Performed By: #### C MP #### [facility] [address], [place] [id number] Protein [Mass/Vol] 6.6 g/dL Normal 6.1-8.1 [facility] [employer] Comment on above: Performed By: #### C MP #### [facility] [address], [place] [id number] Sodium [Moles/Vol] 125 mmol/L Low 135-146 [facility] [employer] Comment on above: Performed By: #### C MP #### [facility] [address], [place] [id number] TBIL <0.3 Normal [facility] Comment on above: Performed By: #### C MP #### [facility] [address], [place] [id number] Urea nitrogen [Mass/Vol] 16 mg/dL Normal 7-25 [facility] [employer] Comment on above: Performed By: #### C TIFFANY #### [facility] [address] [place], [place] [id number] VITAMIN B6on 08-20-2021 Vitamin B6 50.1 ug/L Critically high 2.0-32.8 [facility] Comment on above: Result Comment: Ef fective August 17, 2021 Vitamin B6 reference interval will be changing to: 3.4 - 65.2 ug/L Deficiency: < 3.4 Marginal: 3.4 - 5.1 Adequate: > 5.1 Performed By: #### V ITAB6 ####[facility] [address] [place], [place] [address]IhDr. Good Montiel METHYLMALONIC ACID (MMA)on 0 08-18-2021 Methylmalonic Acid, Serum 327 nmol/L Normal 0-378 [facility] Comment on above: Performed By: #### M MA2 #### [facility] [address] [address] [address] Good Montiel IMMUNOFIX ELEC, PROTEIN ELEC URINEon 08-14-2021 Albumin, U 55.3 % Normal [facility] Comment on above: Performed By: #### C SERAFIN ALLEN #### [facility] [address] [address] [address] Good Montiel Qbmkn-8-Idiutsrx, U 3.9 % Normal [facility] Comment on above: Performed By: #### C SERAFIN ALLEN #### [facility] [address] [address] [address] Good Montiel Neuqz-9-Wbhzmhfz, U 6.7 % Normal [facility] Comment on above: Performed By: #### C DOUGLAS ALLENDM #### [facility] [address] [address] [address] Good Montiel Beta Globulin, U 12.9 % Normal [facility] Comment on above: Performed By: #### C SERAFIN ALLEN #### [facility] [address] [address] [address] Good Montiel Gamma Globulin, U 21.1 % Normal [facility] Comment on above: Performed By: #### C MP, CMADM #### [facility] [address] [place] [address] Dr. Good Montiel Immunofixation Result, Urine Comment: Normal [facility] Comment on above: Result Comment: Pres ence of monoclonal protein is unclear at this time. Suggest repeat in 3 to 6 months if clinically indicated. Performed By: #### C MP, CMADM #### [facility] [address] [place] [address] Dr. Good Montiel M-Brooks, % Not Observed Normal Not Observed [facility] Comment on above: Performed By: #### C MP, CMADM #### [facility] [address] [place] [address] Dr. Good Montiel Note: Comment Normal [facility] Comment on above: Result Comment: Prot ein electrophoresis scan will follow via computer, mail, or payroll accounting clerk delivery. Performed By: #### C MP, CMADM #### [facility] [address] [place] [address] Dr. Good Montiel PDF . Normal [facility] Comment on above: Performed By: #### C MP, CMADM #### [facility] [address] [place] [address] Dr. Good Montiel Protein (U) [Mass/Vol] 12.2 mg/dL Normal Not Estab. [facility] Comment on above: Performed By: #### C MP, CMADM #### [facility] [address] [place] [address] Dr. Good Montiel WEST NILE VIRUS AB (IGG AND IGM)on 08-14-2021 West Nile Virus, IgG Negative Normal Negative [facility] Comment on above: Result Comment: No d etectable West Nile Virus IgG Antibody. If a recent infection is suspected, another specimen should be submitted for testing within 7-14 days. Performed By: #### C MP, CMADM #### [facility] [address] [place] [address] Dr. Good Montiel West Nile Virus, IgM Negative Normal Negative [facility] Comment on above: Result Comment: No d etectable West Nile Virus IgM Antibody. If a recent infection is suspected, another specimen should be submitted for testing within 7-14 days. Performed By: #### C MP, CMADM #### [facility] [address] [address] [address] Good Montiel JAY EIA W/REFLEX 5 BIOMARKER Son 08-13-2021 JAY Direct Negative Normal Negative [facility] Comment on above: Performed By: #### A NARF ####[facility] [address] [address]Dr. Good Montiel C-REACTIVE PROTEINS (HS)on 0 08-13-2021 C-Reactive Protein, Cardiac 0.55 mg/L Normal 0.00-3.00 [facility] Comment on above: Result Comment: Rela tive Risk for Future Cardiovascular Event Low <1.00 Average 1.00 - 3.00 High >3.00 Performed By: #### C RPHS ####[facility] [address] [address]Dr. Good Montiel HOMOCYSTEINEon 08-13-2021 Homocyst(e)ine, Plasma 15.3 umol/L Normal 0.0-19.2 [facility] Comment on above: Performed By: #### H OMCY #### [facility] [address] [place] [address] Dr. Good Montiel IMMUNOFIXATION ELEC, PROTEIN ELECon 08-13-2021 Albumin [Mass/Vol] 3.7 g/dL Normal 2.9-4.4 [facility] Comment on above: Performed By: #### Hakeem DU2 #### [facility] [address] [place] [address] Dr. Good Montiel Albumin/Globulin [Mass ratio] 1.1 {ratio} Normal 0.7-1.7 [facility] Comment on above: Performed By: #### M ANA LAURA2 #### [facility] [address] [place] [address] Dr. Good Montiel Apffh-3-Disfahph 0.2 g/dL Normal 0.0-0.[address] [facility] Comment on above: Performed By: #### Hakeem DU2 #### [facility] [address] [place] [address] Dr. Good Montiel Bshim-3-Hqrgwnsa 0.9 g/dL Normal 0.4-1.[address] [facility] Comment on above: Performed By: #### Hakeem MA2 #### [facility] [address] [address] [address] Good Montiel Beta Globulin 1.2 g/dL Normal 0.7-1.3 [facility] Comment on above: Performed By: #### Hakeem MA2 #### [facility] [address] [address] [address] Good Montiel Gamma Globulin 1.2 g/dL Normal 0.4-1.8 [facility] Comment on above: Performed By: #### Hakeem MA2 #### [facility] [address] [address] [address] Good Montiel Globulin (S) [Mass/Vol] 3.4 g/dL Normal 2.2-3.9 [facility] Comment on above: Performed By: #### Hakeem MA2 #### [facility] [address] [place] [address] Dr. Good Montiel Immunofixation Result, Serum Comment: Normal [facility] Comment on above: Result Comment: Pres ence of monoclonal protein is unclear at this time. Suggest repeat in 3 to 6 months if clinically indicated. Performed By: #### Hakeem MA2 #### [facility] [address] [place] [address] Dr. Good Montiel Immunoglobulin A, Qn, Serum 269 mg/dL Normal 64-422 [facility] Comment on above: Performed By: #### Hakeem MA2 #### [facility] [address] [address] [address] Good Montiel Immunoglobulin G, Qn, Serum 1056 mg/dL Normal 586-1602 [facility] Comment on above: Performed By: #### Hakeem MA2 #### [facility] [address] [address] [address] Good Montiel Immunoglobulin M, Qn, Serum 201 mg/dL Normal 26-217 [facility] Comment on above: Performed By: #### Hakeem MA2 #### [facility] [address] [address] [address] Good Montiel M-Brooks Comment: Normal Not Observed [facility] Comment on above: Result Comment: ASYM METRICAL GAMMA Performed By: #### M MA2 #### [facility] [address] [address] [address] Good Montiel PDF . Normal [facility] Comment on above: Performed By: #### M MA2 #### [facility] [address] [address] [address] Good Montiel Please note: Comment Normal [facility] Comment on above: Result Comment: Prot ein electrophoresis scan will follow via computer, mail, or payroll accounting clerk delivery. Performed By: #### M MA2 #### [facility] [address] [address] [address] Good Montiel Protein [Mass/Vol] 7.1 g/dL Normal 6.0-8.5 [facility] Comment on above: Performed By: #### M MA2 #### [facility] [address] [address] [address] Good Montiel LYME DISEASE AB EIA W REFLEX on 08-13-2021 Lyme Total Antibody,EIA Negative Normal Negative T [facility] Comment on above: Result Comment: [...] Performed By: #### L YMA ####[facility] [address] [address]Dr. Good Montiel RHEUMATOID FACTORon 08-14-19 22 RA Latex Turbid. 10.1 IU/mL Normal <14.[address] [facility] Comment on above: Performed By: #### C MP, CMADM #### [facility] [address] [address] [address] Good Montiel RPR QUANTon 08-13-2021 Rapid Plasma Reagin, Quant Non-Reactive Normal NonRea<1:1 [facility] Comment on above: Result Comment: Plea se Note: This test does not meet current guidelines for screening and diagnosis of syphilis. This test is intended for following treatment response in patients being treated for syphilis infection. To screen for syphilis infection, a reflex cascade that includes both RPR and a treponema-specific assay should be utilized, such as Treponema pallidum (Syphilis) Screening [place] (530673) or Rapid Plasma Reagin (RPR) Test With Reflex to Quantitative RPR and Confirmatory Treponema pallidum Antibodies (364819). Performed By: #### C SERAFIN ALLEN #### [facility] [address] [place] [address] Dr. Good Montiel FREE T4on 08-12-2021 Free T4 [Mass/Vol] 1.03 ng/dL Normal 0.78-2.19 [facility] Comment on above: Performed By: #### B 12FOL, FT4 ####[facility] [address] [place], [place] [address]Dr. Good Montiel SED RATE WESTERGRENon 2021 SED RATE 17 mm/hr Normal <=30 [facility] Comment on above: Performed By: #### C SERAFIN ALLEN #### [facility] [address] [place] [address] Dr. Good Montiel TSHon 08-12-2021 TSH 3.737 uIU/mL Normal 0.470-4.680 [facility] Comment on above: Performed By: #### T SH ####[facility] [address] [place], [place] [address]Dr. Good Montiel TSH RANGE SEE BELOW Normal [facility] Comment on above: Result Comment: <0.3 4 UIU/ml HYPERTHYROID 0.34-5.60 UIU/ml EUTHYROID >5.60 UIU/ml HYPOTHYROID Performed By: #### T SH ####[facility] [address] [place], [place] [address]Dr. Good Montiel VIT B12 AND FOLATEon 022 Cobalamin (Vitamin B12) [Mass/Vol] 741.0 pg/mL Normal 239.0-931.0 [facility] Comment on above: Performed By: #### B 12FOL, FT4 ####[facility] [address] [address]Dr. Good Montiel FOLATE >20.00 Normal >=2.76 [facility] Comment on above: Performed By: #### B 12FOL, FT4 ####[facility] [address] [address]Dr. Good Montiel CBC AUTO DIFFon 06-10-2021 BASO # 0.1 103/ul Normal 0.0-0.1 [facility] Comment on above: Performed By: #### C BC ####[facility] [address] [address]Dr. Good Montiel Basophils/100 WBC (Bld) 0.7 % Normal 0.2-2.0 [facility] Comment on above: Performed By: #### C BC ####[facility] [address] [place], [place] [address]Dr. Good Montiel EO # 0.2 103/ul Normal 0.0-0.7 [facility] Comment on above: Performed By: #### C BC ####[facility] [address] [place], [place] [address]Dr. Good Montiel Eosinophils/100 WBC (Bld) 1.6 % Normal 0.9-7.0 [facility] Comment on above: Performed By: #### C BC ####[facility] [address] [place], [place] [address]Dr. Good Montiel Erythrocyte distribution width (RBC) [Ratio] 18.7 % Critically high 11.0-15.0 [facility] Comment on above: Performed By: #### C BC ####[facility] [address] [place], [place] [address]Dr. Good Montiel Hematocrit (Bld) [Volume fraction] 29.6 % Critically low 36.0-48.0 [facility] Comment on above: Performed By: #### C BC ####[facility] [address] [place], [place] [address]Dr. Good Montiel Hemoglobin (Bld) [Mass/Vol] 9.1 g/dL Critically low 12.0-16.0 [facility] Comment on above: Performed By: #### C BC ####[facility] [address] [address]DrSmooth Montiel IG # 0.06 10e3/ul Critically high 0.00-0.03 [facility] Comment on above: Performed By: #### C BC ####[facility] [address] [address]DrSmooth Montiel IG % 0.6 % Critically high 0.0-0.5 [facility] Comment on above: Performed By: #### C BC ####[facility] [address] [address]DrSmooth Montiel LYMPH # 2.0 103/ul Normal 1.2-3.8 [facility] Comment on above: Performed By: #### C BC ####[facility] [address] [address]DrSmooth Montiel Lymphocytes/100 WBC (Bld) 18.5 % Critically low 20.5-60.0 [facility] Comment on above: Performed By: #### C BC ####[facility] [address] [address]DrSmooth Montiel MANUAL DIFF REQ NO Normal [facility] Comment on above: Performed By: #### C BC ####[facility] [address] [address]DrSmooth Montiel MCH (RBC) [Entitic mass] 21.8 pg Critically low 26.7-34.0 [facility] Comment on above: Performed By: #### C BC ####[facility] [address] [id number] Montiel MCHC (RBC) [Mass/Vol] 30.7 g/dL Normal 29.9-35.2 [facility] Comment on above: Performed By: #### C BC ####[facility] [address] [id number] Montiel MCV (RBC) [Entitic vol] 71.0 fL Critically low 81.0-99. 0 [facility] Comment on above: Performed By: #### C BC ####[facility] [address] [address]Dr. Good Montiel MONO # 0.8 103/ul Normal 0.3-0.8 [facility] Comment on above: Performed By: #### C BC ####[facility] [address] [place] [id number]. Good Montiel Monocytes/100 WBC (Bld) 7.0 % Normal 1.7-12.0 [facility] Comment on above: Performed By: #### C BC ####[facility] [address] [place] [address]Dr. Good Montiel NEUT # 7.6 103/ul Critically high 1.4-6.5 [facility] Comment on above: Performed By: #### C BC ####[facility] [address] [place] [address]Dr. Good Montiel Neutrophils/100 WBC (Bld) 71.6 % Normal 43.0-75.0 [facility] Comment on above: Performed By: #### C BC ####[facility] [address] [place] [id number]. Good Montiel Platelet mean volume (Bld) [Entitic vol] 8.4 fL Critically low 9.5-13.5 [facility] Comment on above: Performed By: #### C BC ####[facility] [address] [place] [id number]. Good Montiel PLT 442 103/ul Normal 150-450 [facility] Comment on above: Performed By: #### C BC ####[facility] [address] [place] [id number]. Good Montiel RBC 4.17 106/ul Critically low 4.20-5.40 [facility] Comment on above: Performed By: #### C BC ####[facility] [address] [place] [id number]. Rejoo Dinesh WBC 10.7 103/ul Normal 4.0-11.0 [facility] Comment on above: Performed By: #### C BC ####[facility] [address] [place], [place] [address]Dr. Good Montiel CRPon 06-10-2021 CRP [Mass/Vol] mg/L Normal <=1.0 [facility] Comment on above: Performed By: #### M MA2 #### [facility] [address] [address] [address] Good Montiel ER URINE PROFILEon 2 Bilirubin Ql (U) Negative Normal NEGATIVE The [facility] Comment on above: Performed By: #### E RUR ####[facility] Pxree[address] [place], [place] [address]Dr. Good Montiel Clarity (U) CLEAR Normal CLEAR [facility] Comment on above: Performed By: #### E RUR ####[facility] [address] [place], [place] [address]Dr. Good Montiel Color (U) YELLOW Normal YELLOW [facility] Comment on above: Performed By: #### E RUR ####[facility] [address] [place], [place] [address]Dr. Good AGUILARD A micrscopic examination will be performed if indicated. Normal [facility] Comment on above: Performed By: #### E RUR ####[facility] Afcr[address] [place], [place] [address]Dr. Good Montiel Glucose Ql (U) Negative Normal NEGATIVE The [facility] Comment on above: Performed By: #### E RUR ####[facility] [address] [place], [place] [address]Dr. Good Montiel Hemoglobin Ql (U) Negative Normal NEGATIVE The [facility] Comment on above: Performed By: #### E RUR ####[facility] Gqih[address] [place], [place] [address]Dr. Good Montiel Ketones Ql (U) Negative Normal NEGATIVE [facility] Comment on above: Performed By: #### E RUR ####[facility] U[address]to[address] [place], [place] [address]Dr. Good Montiel LEUKOCYTES Negative Normal NEGATIVE [facility] Comment on above: Performed By: #### E RUR ####[facility] [address] [place] [address]Dr. Good Montiel Nitrite Ql (U) Negative Normal NEGATIVE [facility] Comment on above: Performed By: #### E RUR ####[facility] [address] [place] [address]Dr. Good Montiel pH (U) 6.5 [pH] Normal 5-9 [facility] Comment on above: Performed By: #### E RUR ####[facility] [address] [place], [place] [address]Dr. Good Montiel SPEC GRAVITY 1.010 Normal 1.005-<=1.02 5 [facility] Comment on above: Performed By: #### E RUR ####[facility] [address] [place], [place] [address]Dr. Good Montiel UA PROTEIN Negative Normal NEGATIVE/ TRACE [facility] Comment on above: Performed By: #### E RUR ####[facility] [address]ix[address] [place], [place] [address]Dr. Good Montiel UR MICRO IND NOT INDICATED Normal [facility] Comment on above: Performed By: #### E RUR ####[facility] [address] [place], [place] [address]Dr. Good Montiel Urobilinogen Qn (U) 0.2 {Momo'U}/dL Normal 0.2 - 1. 0 [facility] Comment on above: Performed By: #### E RUR ####[facility] Rqr[address] [place], [place] [address]Dr. Good Montiel LACTATE/LACTIC ACIDon 2021 Lactate [Moles/Vol] 1.9 mmol/L Normal 0.7-2.0 [facility] Comment on above: Performed By: #### L ACT ####[facility] Emokt[address] [place], [place] [address]DrSmooth Montiel PROF 14(COMP METB)on 022 Albumin [Mass/Vol] 3.0 g/dL Critically low 3.5-5.0 [facility] Comment on above: Performed By: #### M MA2 #### [facility] [address] [place] [address] Dr. Good Montiel Albumin/Globulin [Mass ratio] 0.9 {ratio} Normal [facility] Comment on above: Performed By: #### M MA2 #### [facility] [address] [address] [address] Good Montiel ALP [Catalytic activity/Vol] 36 U/L Critically low 38-126 [facility] Comment on above: Performed By: #### M MA2 #### [facility] [address] [place] [address] Dr. Good Montiel ALT [Catalytic activity/Vol] 26 U/L Normal 9-52 [facility] Comment on above: Performed By: #### Hakeem MA2 #### [facility] [address] [address] [address] Good Montiel Anion gap [Moles/Vol] 12.2 mmol/L Normal [facility] Comment on above: Performed By: #### M MA2 #### [facility] [address] [place] [address] Dr. Good Montiel AST [Catalytic activity/Vol] 23 U/L Normal 14-36 [facility] Comment on above: Performed By: #### M MA2 #### [facility] [address] [place] [address] Dr. Good Montiel Bilirubin [Mass/Vol] 0.4 mg/dL Normal 0.2-1.3 [facility] Comment on above: Performed By: #### M MA2 #### [facility] [address] [address] [address] Good Montiel Calcium [Mass/Vol] 8.5 mg/dL Normal 8.4-10.2 [facility] Comment on above: Performed By: #### M MA2 #### [facility] [address] [place] [address] Dr. Good Montiel Chloride [Moles/Vol] 93 mmol/L Critically low 98-107 [facility] Comment on above: Performed By: #### M MA2 #### [facility] [address] [address] [address] Good Montiel CO2 [Moles/Vol] 27.6 mmol/L Normal 22.0-30.[address] [facility] Comment on above: Performed By: #### M MA2 #### [facility] [address] [address] [address] Good Montiel Creatinine [Mass/Vol] 0.78 mg/dL Normal 0.52-1.04 [facility] Comment on above: Performed By: #### M MA2 #### [facility] [address] [address] [address] Good Montiel EGFR-AF TONGAN >60 Normal >=[address] [facility] Comment on above: Performed By: #### M MA2 #### [facility] [address] [address] [address] Good Montiel EGFR-NON AF TONGAN >60 Normal >=60 [facility] Comment on above: Performed By: #### M MA2 #### [facility] [address] [address] [address] Good Montiel Globulin (S) [Mass/Vol] 3.2 g/dL Normal [facility] Comment on above: Performed By: #### M MA2 #### [facility] [address] [address] [address] Good Montiel Glucose [Mass/Vol] 111 mg/dL Critically high 74-106 [facility] Comment on above: Performed By: #### M MA2 #### [facility] [address] [address] [address] Good Montiel Potassium [Moles/Vol] 3.8 mmol/L Normal 3.4-5.0 [facility] Comment on above: Performed By: #### M MA2 #### [facility] [address] [address] [address] Good Montiel Protein [Mass/Vol] 6.2 g/dL Normal 6.1-8.2 [facility] Comment on above: Performed By: #### M MA2 #### [facility] [address] [address] [address] Good Montiel Sodium [Moles/Vol] 129 mmol/L Critically low 137-145 [facility] Comment on above: Performed By: #### M MA2 #### [facility] [address] [address] [address] Good Montiel Urea nitrogen [Mass/Vol] 17.0 mg/dL Normal 7.0-17.0 [facility] Comment on above: Performed By: #### M MA2 #### [facility] [address] [address] [address] Good Montiel Urea nitrogen/Creatinine [Mass ratio] 21.8 mg/mg Normal [facility] Comment on above: Performed By: #### M MA2 #### [facility] [address] [place] [address] Dr. Good Montiel TROPONIN, HIGH SENSITIVITYon 06-10-2021 HSTROP 9.8 pg/mL Normal 4.0-35.5 [facility] Comment on above: Result Comment: CUT- OFF POINTS HAVE BEEN ESTABLISHED BASED ON THE FOURTH UNIVERSAL DEFINITIONS OF MYOCARDIAL INFARCTION. THE UPPER REFERENCE LIMIT (URL) OF TROPONIN, DEFINED THE 99TH PERCENTILE OF cTnI DISTRIBUTION IN A REFERENCE POPULATION, HAS BEEN CONFIRMED THE DECISION THRESHOLD FOR [place] DIAGNOSIS. Performed By: #### M MA2 #### [facility] [address] [place] [address] Dr. Good Montiel TSHon 06-10-2021 TSH 7.927 uIU/mL Critically high 0.470-4.680 [facility] Comment on above: Performed By: #### M MA2 #### [facility] [address] [address] [address] Good Montiel TSH RANGE SEE BELOW Normal [facility] Comment on above: Result Comment: <0.3 4 UIU/ml HYPERTHYROID 0.34-5.60 UIU/ml EUTHYROID >5.60 UIU/ml HYPOTHYROID Performed By: #### Hakeem MA2 #### [facility] [address] [place] [address] Dr. Good Montiel CBC AUTO DIFFon 06-06-2021 BASO # 0.1 103/ul Normal 0.0-0.1 [facility] Comment on above: Performed By: #### C TIFFANY, CMADM #### [facility] [address] [place] [address] Dr. Good Montiel Basophils/100 WBC (Bld) 0.7 % Normal 0.2-2.0 [facility] Comment on above: Performed By: #### C TIFFANY, CMADM #### [facility] [address] [place] [address] Dr. Good Montiel EO # 0.2 103/ul Normal 0.0-0.7 [facility] Comment on above: Performed By: #### C TIFFANY, DOUGLASDM #### [facility] [address] [place] [address] Dr. Good Montiel Eosinophils/100 WBC (Bld) 2.5 % Normal 0.9-7.0 [facility] Comment on above: Performed By: #### C TIFFANY, CMADM #### [facility] [address] [place] [address] Dr. Good Montiel Erythrocyte distribution width (RBC) [Ratio] 18.5 % Critically high 11.0-15.0 [facility] Comment on above: Performed By: #### C TIFFANY, CMADM #### [facility] [address] [place] [address] Dr. Good Montiel Hematocrit (Bld) [Volume fraction] 30.1 % Critically low 36.0-48.0 [facility] Comment on above: Performed By: #### C TIFFANY, CMADM #### [facility] [address] [place] [address] Dr. Good Montiel Hemoglobin (Bld) [Mass/Vol] 9.3 g/dL Critically low 12.0-16.0 [facility] Comment on above: Performed By: #### C TIFFANY, CMADM #### [facility] [address] [place] [address] Dr. Good Montiel IG # 0.06 10e3/ul Critically high 0.00-0.03 [facility] Comment on above: Performed By: #### C MP, CMADM #### [facility] [address] [address] [address] Good Montiel IG % 0.7 % Critically high 0.0-0.5 [facility] Comment on above: Performed By: #### C MP, CMADM #### [facility] [address] [address] [address] Good Montiel LYMPH # 2.0 103/ul Normal 1.2-3.8 [facility] Comment on above: Performed By: #### C MP, CMADM #### [facility] [address] [address] [address] Good Montiel Lymphocytes/100 WBC (Bld) 23.0 % Normal 20.5-60.0 [facility] Comment on above: Performed By: #### C MP, CMADM #### [facility] [address] [address] [address] Good Montiel MANUAL DIFF REQ NO Normal [facility] Comment on above: Performed By: #### C MP, CMADM #### [facility] [address] [address] [address] Good Montiel MCH (RBC) [Entitic mass] 21.9 pg Critically low 26.7-34.0 [facility] Comment on above: Performed By: #### C MP, CMADM #### [facility] [address] [address] [address] Good Montiel MCHC (RBC) [Mass/Vol] 30.9 g/dL Normal 29.9-35.2 [facility] Comment on above: Performed By: #### C MP, CMADM #### [facility] [address] [address] [address] Good Montiel MCV (RBC) [Entitic vol] 70.8 fL Critically low 81.0-99. 0 [facility] Comment on above: Performed By: #### C MP, CMADM #### [facility] [address] [address] [address] Good Montiel MONO # 1.0 103/ul Critically high 0.3-0.8 [facility] Comment on above: Performed By: #### C TIFFANY, SERAFIN #### [facility] [address] [place] [address] Dr. Good Montiel Monocytes/100 WBC (Bld) 11.3 % Normal 1.7-12.0 [facility] Comment on above: Performed By: #### C TIFFANY, CMADM #### [facility] [address] [place] [address] Dr. Good Montiel NEUT # 5.2 103/ul Normal 1.4-6.5 [facility] Comment on above: Performed By: #### C DOUGLAS ALLENDM #### [facility] [address] [place] [address] Dr. Good Montiel Neutrophils/100 WBC (Bld) 61.8 % Normal 43.0-75.0 [facility] Comment on above: Performed By: #### C DOUGALS ALLENDM #### [facility] [address] [place] [address] Dr. Good Montiel Platelet mean volume (Bld) [Entitic vol] 8.5 fL Critically low 9.5-13.5 [facility] Comment on above: Performed By: #### C SERAFIN ALLEN #### [facility] [address] [place] [address] Dr. Good Montiel PLT 455 103/ul Critically high 150-450 [facility] Comment on above: Performed By: #### C DOUGLAS ALLENDM #### [facility] [address] [place] [address] Dr. Good Montiel RBC 4.25 106/ul Normal 4.20-5.40 [facility] Comment on above: Performed By: #### C DOUGLAS ALLENDM #### [facility] [address] [place] [address] Dr. Good Montiel WBC 8.5 103/ul Normal 4.0-11.0 [facility] Comment on above: Performed By: #### C SERAFIN ALLEN #### [facility] [address] [place] [address] Dr. Good Montiel POINT OF CARE GLUCOSEon 05-17 Glucose [Mass/Vol] 164 mg/dL Critically high 74-106 [facility] Comment on above: Performed By: #### C SERAFIN ALLEN #### [facility] [address] [place] [address] Dr. Good Montiel PROF 14(COMP METB)on 022 Albumin [Mass/Vol] 3.2 g/dL Critically low 3.5-5.0 [facility] Comment on above: Performed By: #### M MA2 #### [facility] [address] [place] [address] Dr. Good Montiel Albumin/Globulin [Mass ratio] 1.1 {ratio} Normal [facility] Comment on above: Performed By: #### M MA2 #### [facility] [address] [place] [address] Dr. Good Montiel ALP [Catalytic activity/Vol] 37 U/L Critically low 38-126 [facility] Comment on above: Performed By: #### M MA2 #### [facility] [address] [place] [address] Dr. Good Montile ALT [Catalytic activity/Vol] 26 U/L Normal 9-52 [facility] Comment on above: Performed By: #### M MA2 #### [facility] [address] [place] [address] Dr. Good Montiel Anion gap [Moles/Vol] 11.5 mmol/L Normal [facility] Comment on above: Performed By: #### M MA2 #### [facility] [address] [place] [address] Dr. Good Montiel AST [Catalytic activity/Vol] 25 U/L Normal 14-36 [facility] Comment on above: Performed By: #### M MA2 #### [facility] [address] [place] [address] Dr. Good Montiel Bilirubin [Mass/Vol] 0.4 mg/dL Normal 0.2-1.3 [facility] Comment on above: Performed By: #### M MA2 #### [facility] [address] [address] [address] Good Montiel Calcium [Mass/Vol] 8.8 mg/dL Normal 8.4-10.2 [facility] Comment on above: Performed By: #### M MA2 #### [facility] [address] [address] [address] Good Montiel Chloride [Moles/Vol] 93 mmol/L Critically low 98-107 [facility] Comment on above: Performed By: #### M MA2 #### [facility] [address] [place] [address] Dr. Good Montiel CO2 [Moles/Vol] 28.2 mmol/L Normal 22.0-30.[address] [facility] Comment on above: Performed By: #### Hakeem MA2 #### [facility] [address] [place] [address] Dr. Good Montiel Creatinine [Mass/Vol] 0.57 mg/dL Normal 0.52-1.04 [facility] Comment on above: Performed By: #### Hakeem MA2 #### [facility] [address] [address] [address] Good Montiel EGFR-AF TONGAN >60 Normal >=[address] [facility] Comment on above: Performed By: #### Hakeem MA2 #### [facility] [address] [place] [address] Dr. Good Montiel EGFR-NON AF TONGAN >60 Normal >=60 [facility] Comment on above: Performed By: #### Hakeem MA2 #### [facility] [address] [address] [address] Good Montiel Globulin (S) [Mass/Vol] 3.0 g/dL Normal T [facility] Comment on above: Performed By: #### M MA2 #### [facility] [address] [place] [address] Dr. Good Montiel Glucose [Mass/Vol] 106 mg/dL Normal 74-106 [facility] Comment on above: Performed By: #### M MA2 #### [facility] [address] [place] [address] Dr. Good Montiel Potassium [Moles/Vol] 3.7 mmol/L Normal 3.4-5.0 [facility] Comment on above: Performed By: #### M MA2 #### [facility] [address] [address] [address] Good Montiel Protein [Mass/Vol] 6.2 g/dL Normal 6.1-8.2 [facility] Comment on above: Performed By: #### Hakeem MA2 #### [facility] [address] [address] [address] Good Montiel Sodium [Moles/Vol] 129 mmol/L Critically low 137-145 [facility] Comment on above: Performed By: #### Hakeem DU2 #### [facility] [address] [address] [address] Good Montiel Urea nitrogen [Mass/Vol] 14.0 mg/dL Normal 7.0-17.0 [facility] Comment on above: Performed By: #### Hakeem DU2 #### [facility] [address] [address] [address] Good Montiel Urea nitrogen/Creatinine [Mass ratio] 24.6 mg/mg Normal [facility] Comment on above: Performed By: #### Hakeem DU2 #### [facility] [address] [address] [address] Good Montiel CARDIAC LOGAN ADMITon 022 CK [Catalytic activity/Vol] 55 U/L Normal 30-135 [facility] Comment on above: Performed By: #### SERAFIN Portillo MP #### [facility] [address] [place] [address] Dr. Good Montiel CK.MB [Mass/Vol] 2.09 ng/mL Normal <=2.[address] [facility] Comment on above: Performed By: #### SERAFIN Portillo MP #### [facility] [address] [place] [address] Dr. Good Montiel HSTROP 10.2 pg/mL Normal 4.0-35.5 [facility] Comment on above: Result Comment: CUT- OFF POINTS HAVE BEEN ESTABLISHED BASED ON THE FOURTH UNIVERSAL DEFINITIONS OF MYOCARDIAL INFARCTION. THE UPPER REFERENCE LIMIT (URL) OF TROPONIN, DEFINED THE 99TH PERCENTILE OF cTnI DISTRIBUTION IN A REFERENCE POPULATION, HAS BEEN CONFIRMED THE DECISION THRESHOLD FOR [place] DIAGNOSIS. Performed By: #### C SERAFIN ALLEN #### [facility] [address] [address] [address] Good Montiel CLIF 61.0 ng/mL Normal <=61.5 [facility] Comment on above: Performed By: #### C SERAFIN ALLEN #### [facility] [address] [address] [address] Good Montiel CBC AUTO DIFFon 06-05-2021 BASO # 0.1 103/ul Normal 0.0-0.1 [facility] Comment on above: Performed By: #### C BC ####[facility] [address] [place] [address]DrSmooth Montiel Basophils/100 WBC (Bld) 0.8 % Normal 0.2-2.0 [facility] Comment on above: Performed By: #### C BC ####[facility] [address] [address]Dr. Good Montiel EO # 0.2 103/ul Normal 0.0-0.7 [facility] Comment on above: Performed By: #### C BC ####[facility] [address] [address]Dr. Good Montiel Eosinophils/100 WBC (Bld) 2.2 % Normal 0.9-7.0 [facility] Comment on above: Performed By: #### C BC ####[facility] [address] [place] [address]DrSmooth Montiel Erythrocyte distribution width (RBC) [Ratio] 18.2 % Critically high 11.0-15.0 [facility] Comment on above: Performed By: #### C BC ####[facility] [address] [place] [address]DrSmooth Montiel Hematocrit (Bld) [Volume fraction] 31.1 % Critically low 36.0-48.0 [facility] Comment on above: Performed By: #### C BC ####[facility] [address] [place] [id number]. Good Montiel Hemoglobin (Bld) [Mass/Vol] 9.6 g/dL Critically low 12.0-16.0 [facility] Comment on above: Performed By: #### C BC ####[facility] [address] [place] [id number]. Good Montiel IG # 0.07 10e3/ul Critically high 0.00-0.03 [facility] Comment on above: Performed By: #### C BC ####[facility] [address] [place] [address]Dr. Good Montiel IG % 0.9 % Critically high 0.0-0.5 [facility] Comment on above: Performed By: #### C BC ####[facility] [address] [place] [address]Dr. Good Dinesh LYMPH # 1.3 103/ul Normal 1.2-3.8 [facility] Comment on above: Performed By: #### C BC ####[facility] [address] [place] [address]Dr. Good Montiel Lymphocytes/100 WBC (Bld) 17.2 % Critically low 20.5-60.0 [facility] Comment on above: Performed By: #### C BC ####[facility] [address] [place] [address]Dr. Good Montiel MANUAL DIFF REQ NO Normal [facility] Comment on above: Performed By: #### C BC ####[facility] [address] [place], [place] [address]Dr. Good Montiel MCH (RBC) [Entitic mass] 21.8 pg Critically low 26.7-34.0 [facility] Comment on above: Performed By: #### C BC ####[facility] [address] [place] [id number]. Good Montiel MCHC (RBC) [Mass/Vol] 30.9 g/dL Normal 29.9-35.2 [facility] Comment on above: Performed By: #### C BC ####[facility] [address] [place], [place] [address]Eg. Good Montiel MCV (RBC) [Entitic vol] 70.5 fL Critically low 81.0-99. 0 [facility] Comment on above: Performed By: #### C BC ####[facility] [address] [place], [place] [address]Wb. Good Montiel MONO # 0.6 103/ul Normal 0.3-0.8 [facility] Comment on above: Performed By: #### C BC ####[facility] [address] [place] [id number]. Good Montiel Monocytes/100 WBC (Bld) 8.3 % Normal 1.7-12.0 [facility] Comment on above: Performed By: #### C BC ####[facility] [address] [place] [id number]. Good Montiel NEUT # 5.3 103/ul Normal 1.4-6.5 [facility] Comment on above: Performed By: #### C BC ####[facility] [address] [place] [id number]. Good Montiel Neutrophils/100 WBC (Bld) 70.6 % Normal 43.0-75.0 [facility] Comment on above: Performed By: #### C BC ####[facility] [address] [place] [id number]. Good Montiel Platelet mean volume (Bld) [Entitic vol] 8.3 fL Critically low 9.5-13.5 [facility] Comment on above: Performed By: #### C BC ####[facility] [address] [place] [id number]. Good Montiel PLT 463 103/ul Critically high 150-450 [facility] Comment on above: Performed By: #### C BC ####[facility] [address] [place], [place] [address]Da. Good Montiel RBC 4.41 106/ul Normal 4.20-5.40 [facility] Comment on above: Performed By: #### C BC ####[facility] Rxnsuiylvd[address] [place], [place] [address]JjSmooth Montiel WBC 7.6 103/ul Normal 4.0-11.0 [facility] Comment on above: Performed By: #### C ####[facility] [address] [place], [place] [address] STROKE HEAD WOon 06-05-19 CT [...] GINGER BROOKS Date: 2021-06-05 10:30 Normal [facility] Covid-19 PCR (CVDTB)on 05-17 SARS-CoV-2 (COVID-19) RNA FELECIA+probe Ql (Unsp spec) Not detected Normal NOT DETECTED [facility] Comment on above: Result Comment: When [...] for this test is supported by the [place] of Health and Human Service's declaration that [...] longer be used). Performed By: #### C [facility] #### [facility] [address] [address] [address] Good Monteil ECHOCARDIO M/2D COMPLETEon 0 06-05-2021 ECHOCARDIO M/2D COMPLETE Patient: NUVIA MARTIN Exam Date: 06/05/2021 : 1945 Gender:F Ordering : DR. RHIANNON OLSON . Admission #: [id number] Family : DR WILY PRADO M.D. Order #: [id number] CLICK HERE TO VIEW EXAM ECHOCARDIOGRAM REPORT [...] Area(A4C): 18.50 cm2 Left Atrium Systolic Volume(A2C): 72222 mm3 Left Atrium Systolic Volume(A4C): 11024 mm3 Mitral Valve MV E to A [...] Ramírez M.D. on 06/08/2021 at 14:19 Normal [facility] GLYCOHEMOGLOBIN A1Con 2021 ADA RECOMMENDATION ADA THERAPEUTIC TARGET 6.0 - 7.0 ACTION SUGGESTED > 7.0 Normal [facility] Comment on above: Performed By: #### M MA2 #### [facility] [address] [address] [address] Good Montiel Glucose [Mass/Vol] 131 mg/dL Normal [facility] Comment on above: Performed By: #### M MA2 #### [facility] [address] [address] [address] Good Montiel HbA1c (Bld) [Mass fraction] 6.2 % Critically high <=6.0 [facility] Comment on above: Performed By: #### M MA2 #### [facility] [address] [address] [address] Good Montiel LIPID PROFILEon 06-05-2021 CHOL-HDL RATIO NORM SEE BELOW Normal [facility] Comment on above: Result Comment: 3.3 - 4.4 LOW RISK 4.4 - 7.1 AVERAGE RISK 7.1 - 11.0 MODERATE RISK >11.0 HIGH RISK Performed By: #### C SERAFIN ALLEN #### [facility] [address] [address] [address] Good Montiel Cholesterol [Mass/Vol] 157 mg/dL Normal <=200 [facility] Comment on above: Performed By: #### C SERAFIN ALLEN #### [facility] [address] [address] [address] Good Montiel Cholesterol in HDL [Mass/Vol] 44 mg/dL Normal [facility] Comment on above: Performed By: #### C SERAFIN ALLEN #### [facility] [address] [address] [address] Good Montiel Cholesterol in LDL [Mass/Vol] 80.0 mg/dL Normal [facility] Comment on above: Performed By: #### C SERAFIN ALLEN #### [facility] [address] [address] [address] Good Montiel Cholesterol.total/Rocío sterol in HDL [Mass ratio] 3.6 {ratio} Normal [facility] Comment on above: Performed By: #### C SERAFIN ALLEN #### [facility] [address] [address] [address] Good Montiel HDL NORMAL > or = 60 mg/dl - LOW CARDIOVASCULAR RISK <40 mg/dl - HIGH CARDIOVASCULAR RISK Normal [facility] Comment on above: Performed By: #### C TIFFANY, CMADM #### [facility] [address] [place], [place] [address] Dr. Good Montiel LDL CALC NORMAL SEE BELOW Normal [facility] Comment on above: Result Comment: <100 mg/dl OPTIMAL 100 - 129 mg/dl NEAR OR ABOVE OPTIMAL 130 - 159 mg/dl BORDERLINE HIGH 160 - 189 mg/dl HIGH >190 mg/dl VERY HIGH Performed By: #### C TIFFANY, CMADM #### [facility] [address] [place], [place] [address] Dr. Good Montiel Triglyceride [Mass/Vol] 165 mg/dL Critically high <=150 [facility] Comment on above: Performed By: #### C TIFFANY, CMADM #### [facility] [address] [place], [place] [address] Dr. Good Montiel VLDL CALC 33.0 mg/dL Normal [facility] Comment on above: Performed By: #### C TIFFANY, CMADM #### [facility] [address] [place], [place] [address] Dr. Good Montiel MRI BRAIN WO CONon [...] by: ALFONSO ALTMAN Date: 2021-06-05 15:08 Normal [facility] POINT OF CARE GLUCOSEon 05-17 Glucose [Mass/Vol] 119 mg/dL Critically high 74-106 [facility] Comment on above: Performed By: #### P OCGLUC ####[facility] [address] [place] [id number]. Good Montiel Glucose [Mass/Vol] 169 mg/dL Critically high -106 [facility] Comment on above: Performed By: #### P OCGLUC ####[facility] [address] [place] [phone]. Good Montiel Glucose [Mass/Vol] 119 mg/dL Critically high -106 [facility] Comment on above: Performed By: #### P OCGLUC ####[facility] [address] [place] [address]Dr. Good Montiel PROF 14(COMP METB)on 022 Albumin [Mass/Vol] 3.3 g/dL Critically low 3.5-5.0 [facility] Comment on above: Performed By: #### C SERAFIN ALLEN #### [facility] [address] [address] [address] Good Montiel Albumin/Globulin [Mass ratio] 1.0 {ratio} Normal [facility] Comment on above: Performed By: #### C SERAFIN ALLEN #### [facility] [address] [address] [address] Good Montiel ALP [Catalytic activity/Vol] 40 U/L Normal 38-126 [facility] Comment on above: Performed By: #### C SERAFIN ALLEN #### [facility] [address] [address] [address] Good Montiel ALT [Catalytic activity/Vol] 23 U/L Normal 9-52 [facility] Comment on above: Performed By: #### C DOUGLAS ALLENDM #### [facility] [address] [address] [address] Good Montiel Anion gap [Moles/Vol] 11.3 mmol/L Normal [facility] Comment on above: Performed By: #### C MP, CMADM #### [facility] [address] [address] [address] Good Montiel AST [Catalytic activity/Vol] 20 U/L Normal 14-36 [facility] Comment on above: Performed By: #### C MP, CMADM #### [facility] [address] [address] [address] Good Montiel Bilirubin [Mass/Vol] 0.6 mg/dL Normal 0.2-1.3 [facility] Comment on above: Performed By: #### C MP, CMADM #### [facility] [address] [place] [address] Dr. Good Montiel Calcium [Mass/Vol] 8.5 mg/dL Normal 8.4-10.2 [facility] Comment on above: Performed By: #### C MP, CMADM #### [facility] [address] [address] [address] Good Montiel Chloride [Moles/Vol] 90 mmol/L Critically low 98-107 [facility] Comment on above: Performed By: #### C MP, CMADM #### [facility] [address] [address] [address] Good Montiel CO2 [Moles/Vol] 28.5 mmol/L Normal 22.0-30.[address] [facility] Comment on above: Performed By: #### C MP, CMADM #### [facility] [address] [address] [address] Good Montiel Creatinine [Mass/Vol] 0.89 mg/dL Normal 0.52-1.04 [facility] Comment on above: Performed By: #### C MP, CMADM #### [facility] [address] [address] [address] Good Montiel EGFR-AF TONGAN >60 Normal >=[address] [facility] Comment on above: Performed By: #### C MP, CMADM #### [facility] [address] [address] [address] Good Montiel EGFR-NON AF TONGAN >60 Normal >=60 [facility] Comment on above: Performed By: #### C MP, CMADM #### [facility] [address] [address] [address] Good Montiel Globulin (S) [Mass/Vol] 3.3 g/dL Normal [facility] Comment on above: Performed By: #### C MP, CMADM #### [facility] [address] [address] [address] Good Montiel Glucose [Mass/Vol] 128 mg/dL Critically high 74-106 [facility] Comment on above: Performed By: #### C MP, CMADM #### [facility] [address] [address] [address] Good Montiel Potassium [Moles/Vol] 3.8 mmol/L Normal 3.4-5.0 [facility] Comment on above: Performed By: #### C TIFFANY, CMADM #### [facility] [address] [address] [address] Good Montiel Protein [Mass/Vol] 6.6 g/dL Normal 6.1-8.2 [facility] Comment on above: Performed By: #### C TIFFANY, CMADM #### [facility] [address] [address] [address] Good Montiel Sodium [Moles/Vol] 126 mmol/L Critically low 137-145 [facility] Comment on above: Performed By: #### C MP, CMADM #### [facility] [address] [address] [address] Good Montiel Urea nitrogen [Mass/Vol] 16.0 mg/dL Normal 7.0-17.0 [facility] Comment on above: Performed By: #### C MP, CMADM #### [facility] [address] [address] [address] Good Montiel Urea nitrogen/Creatinine [Mass ratio] 18.0 mg/mg Normal [facility] Comment on above: Performed By: #### C MP, CMADM #### [facility] [address] [address] [address] Good Montiel US CAROTID ART BILon US CAROTID ART [place] EXAMINATION: US CAROTID [...] by: GINGER BROOKS Date: 2021-06-05 15:31 Normal [facility] XR CHEST 1 Von 06-05-2021 XR [...] by: GINGER BROOKS Date: 2021-06-05 09:36 Normal [facility] CT HEAD WO CONon 06-04-2021 CT [...] Date: 2021-06-04 08:06 Normal [facility] BNPon 05-27-2021 Natriuretic peptide B (Bld) [Mass/Vol] 285.0 pg/mL Normal <=900.0 [facility] Comment on above: Performed By: #### C MADM, CMP, BNP ####[facility] [address] [place] [address]Dr. Good Montiel CARDIAC LOGAN ADMITon 022 CK [Catalytic activity/Vol] 60 U/L Normal 30-135 [facility] Comment on above: Performed By: #### C MADM, CMP, BNP ####[facility] [address] [place] [address]Dr. Good Montiel CK.MB [Mass/Vol] 2.13 ng/mL Normal <=2.37 [facility] Comment on above: Performed By: #### C MADM, CMP, BNP ####[facility] [address] [place] [address]Dr. Good Montiel HSTROP 10.8 pg/mL Normal 4.0-35.5 [facility] Comment on above: Result Comment: CUT- OFF POINTS HAVE BEEN ESTABLISHED BASED ON THE FOURTH UNIVERSAL DEFINITIONS OF MYOCARDIAL INFARCTION. THE UPPER REFERENCE LIMIT (URL) OF TROPONIN, DEFINED THE 99TH PERCENTILE OF cTnI DISTRIBUTION IN A REFERENCE POPULATION, HAS BEEN CONFIRMED THE DECISION THRESHOLD FOR [place] DIAGNOSIS. Performed By: #### C MADM, CMP, BNP ####[facility] [address] [place] [address]DrSmooth Montiel CLIF 62.0 ng/mL Critically high <=61.5 [facility] Comment on above: Performed By: #### C MADM, CMP, BNP ####[facility] [address] [place] [address]DrSmooth Montiel CBC AUTO DIFFon 05-27-2021 BASO # 0.1 103/ul Normal 0.0-0.1 [facility] Comment on above: Performed By: #### C BC ####[facility] [address] [place] [address]Dr. Good Montiel Basophils/100 WBC (Bld) 0.8 % Normal 0.2-2.0 [facility] Comment on above: Performed By: #### C BC ####[facility] [address] [place] [address]Dr. Good Montiel EO # 0.3 103/ul Normal 0.0-0.7 [facility] Comment on above: Performed By: #### C BC ####[facility] [address] [place] [address]Dr. Good Montiel Eosinophils/100 WBC (Bld) 3.1 % Normal 0.9-7.0 [facility] Comment on above: Performed By: #### C BC ####[facility] [address] [place] [address]Dr. Good Montiel Erythrocyte distribution width (RBC) [Ratio] 18.4 % Critically high 11.0-15.0 [facility] Comment on above: Performed By: #### C BC ####[facility] [address] [place] [address]Dr. Good Montiel Hematocrit (Bld) [Volume fraction] 31.8 % Critically low 36.0-48.0 [facility] Comment on above: Performed By: #### C BC ####[facility] [address] [place], [place] [address]Dr. Good Montiel Hemoglobin (Bld) [Mass/Vol] 9.8 g/dL Critically low 12.0-16.0 [facility] Comment on above: Performed By: #### C BC ####[facility] [address] [place] [address]Dr. Good Montiel IG # 0.09 10e3/ul Critically high 0.00-0.03 [facility] Comment on above: Performed By: #### C BC ####[facility] [address] [place] [id number]. Good Montiel IG % 1.1 % Critically high 0.0-0.5 [facility] Comment on above: Performed By: #### C BC ####[facility] [address] [place] [id number]. Good Montiel LYMPH # 1.6 103/ul Normal 1.2-3.8 [facility] Comment on above: Performed By: #### C BC ####[facility] [address] [place] [id number]. Good Montiel Lymphocytes/100 WBC (Bld) 18.5 % Critically low 20.5-60.0 [facility] Comment on above: Performed By: #### C BC ####[facility] [address] [place] [id number]. Good Montiel MANUAL DIFF REQ NO Normal [facility] Comment on above: Performed By: #### C BC ####[facility] [address] [place] [phone]. Good Montiel MCH (RBC) [Entitic mass] 22.1 pg Critically low 26.7-34.0 [facility] Comment on above: Performed By: #### C BC ####[facility] [address] [place] [id number]. Good Montiel MCHC (RBC) [Mass/Vol] 30.8 g/dL Normal 29.9-35.2 [facility] Comment on above: Performed By: #### C BC ####[facility] [address] [place] [phone]. Good Montiel MCV (RBC) [Entitic vol] 71.6 fL Critically low 81.0-99. 0 [facility] Comment on above: Performed By: #### C BC ####[facility] [address] [place] [phone]. Good Montiel MONO # 0.7 103/ul Normal 0.3-0.8 [facility] Comment on above: Performed By: #### C BC ####[facility] [address] [place] [id number]. oGod Montiel Monocytes/100 WBC (Bld) 8.8 % Normal 1.7-12.0 [facility] Comment on above: Performed By: #### C BC ####[facility] [address] [place] [id number]. Good Montiel NEUT # 5.7 103/ul Normal 1.4-6.5 [facility] Comment on above: Performed By: #### C BC ####[facility] [address] [place] [phone]. Good Montiel Neutrophils/100 WBC (Bld) 67.7 % Normal 43.0-75.0 [facility] Comment on above: Performed By: #### C BC ####[facility] [address] [place] [phone]. Good Montiel Platelet mean volume (Bld) [Entitic vol] 8.2 fL Critically low 9.5-13.5 [facility] Comment on above: Performed By: #### C BC ####[facility] [address] [place] [phone]. Good Montiel PLT 382 103/ul Normal 150-450 [facility] Comment on above: Performed By: #### C BC ####[facility] [address] [place] [phone]. Good Montiel RBC 4.44 106/ul Normal 4.20-5.40 [facility] Comment on above: Performed By: #### C BC ####[facility] [address] [place] [phone]. Good Montiel WBC 8.4 103/ul Normal 4.0-11.0 [facility] Comment on above: Performed By: #### C BC ####[facility] [address] [place] [id number]. Good Mont[address] CT STROKE HEAD WOon 05-27-19 [...] Date: 2021-05-27 07:10 Normal [facility] PROF 14(COMP METB)on 05-27- 022 Albumin [Mass/Vol] 3.3 g/dL Critically low 3.5-5.0 [facility] Comment on above: Performed By: #### C MADM, CMP, BNP ####[facility] [address] [place] [address]Dr. Good Montiel Albumin/Globulin [Mass ratio] 1.0 {ratio} Normal [facility] Comment on above: Performed By: #### C BAUTISTA, CMP, BNP ####[facility] [address] [place] [address]Dr. Good Montiel ALP [Catalytic activity/Vol] 43 U/L Normal 38-126 [facility] Comment on above: Performed By: #### C MADM, CMP, BNP ####[facility] [address] [place] [address]Dr. Good Montiel ALT [Catalytic activity/Vol] 27 U/L Normal 9-52 [facility] Comment on above: Performed By: #### C MADM, CMP, BNP ####[facility] [address] [place] [address]Dr. Good Montiel Anion gap [Moles/Vol] 8.1 mmol/L Normal [facility] Comment on above: Performed By: #### C MADM, CMP, BNP ####[facility] [address] [place] [address]Dr. Good Montiel AST [Catalytic activity/Vol] 23 U/L Normal 14-36 [facility] Comment on above: Performed By: #### C MADM, CMP, BNP ####[facility] [address] [place] [address]Dr. Good Montiel Bilirubin [Mass/Vol] 0.4 mg/dL Normal 0.2-1.3 [facility] Comment on above: Performed By: #### C MADM, CMP, BNP ####[facility] [address] [place] [address]Dr. Good Montiel Calcium [Mass/Vol] 8.5 mg/dL Normal 8.4-10.2 [facility] Comment on above: Performed By: #### C MADM, CMP, BNP ####[facility] [address] [place], [place] [address]Dr. Good Montiel Chloride [Moles/Vol] 94 mmol/L Critically low 98-107 [facility] Comment on above: Performed By: #### C MADM, CMP, BNP ####[facility] [address] [place], [place] [address]Dr. Good Montiel CO2 [Moles/Vol] 29.9 mmol/L Normal 22.0-30.0 [facility] Comment on above: Performed By: #### C MADM, CMP, BNP ####[facility] [address] [place], [place] [address]Dr. Good Montiel Creatinine [Mass/Vol] 0.77 mg/dL Normal 0.52-1.04 [facility] Comment on above: Performed By: #### C MADM, CMP, BNP ####[facility] [address] [place], [place] [address]Dr. Good Montiel EGFR-AF TONGAN >60 Normal >=60 [facility] Comment on above: Performed By: #### C MADM, CMP, BNP ####[facility] [address] [place], [place] [address]Dr. Yilan Montiel EGFR-NON AF TONGAN >60 Normal >=60 [facility] Comment on above: Performed By: #### C MADM, CMP, BNP ####[facility] [address] [place] [address]Dr. Good Montiel Globulin (S) [Mass/Vol] 3.4 g/dL Normal [facility] Comment on above: Performed By: #### C MADM, CMP, BNP ####[facility] [address] [place] [address]Dr. Good Montiel Glucose [Mass/Vol] 114 mg/dL Critically high 74-106 [facility] Comment on above: Performed By: #### C MADM, CMP, BNP ####[facility] [address] [place] [address]Dr. Good Montiel Potassium [Moles/Vol] 4.0 mmol/L Normal 3.4-5.0 [facility] Comment on above: Performed By: #### C MADM, CMP, BNP ####[facility] [address] [place] [address]Dr. Good Montiel Protein [Mass/Vol] 6.7 g/dL Normal 6.1-8.2 [facility] Comment on above: Performed By: #### C MADM, CMP, BNP ####[facility] [address] [place] [address]Dr. Good Montiel Sodium [Moles/Vol] 128 mmol/L Critically low 137-145 [facility] Comment on above: Performed By: #### C MADM, CMP, BNP ####[facility] [address] [place] [address]Dr. Good Montiel Urea nitrogen [Mass/Vol] 12.0 mg/dL Normal 7.0-17.0 [facility] Comment on above: Performed By: #### C MADM, CMP, BNP ####[facility] [address] [place] [address]Dr. Good Montiel Urea nitrogen/Creatinine [Mass ratio] 15.6 mg/mg Normal [facility] Comment on above: Performed By: #### C MADM, CMP, BNP ####[facility] [address] [place], [place] [address]AeDr. Good Montiel PROTIMEon 05-27-2021 INR Coag (PPP) [Relative time] 1.01 {INR} Normal [facility] Comment on above: Performed By: #### M MA2 #### [facility] [address] [place], [place] [address] Dr. Good Montiel INR GUIDELINES SEE BELOW Normal [facility] Comment on above: Result Comment: JEANNINE RED INR: 2.0 - 3.0 CONDITIONS NOT LISTED BELOW 2.5 - 3.5 FOR PROSTHETIC HEART VALVE REPLACEMENT 2.5 - 3.5 RECURRENT THROMBOSIS Performed By: #### Hakeem DU2 #### [facility] [address] [address] [address] Good Montiel PT Coag (PPP) [Time] 10.9 s Normal 9.0-11.6 [facility] Comment on above: Performed By: #### Hakeem DU2 #### [facility] [address] [address] [address] Good Montiel PTTon 05-27-2021 aPTT Coag (Bld) [Time] 24.5 s Normal 22.3-36.2 [facility] Comment on above: Performed By: #### Hakeem MA2 #### [facility] [id number] Good Montiel XR CHEST 1 Von [...] by: GINGER BROOKS Date: 2021-05-27 07:53 Normal [facility] Vital Signs Date Time Vital Sign Value Performing Clinician Facility 10-11-2024 15:48-0400 Body height 149.9 cm Wily Prado MD Work Phone: [facility] 10-11-2024 15:48-0400 Body mass index (BMI) [Ratio] 34.74 kg/m2 Wily Prado MD Work Phone: [facility] 10-11-2024 15:48-0400 Body weight 78.02 kg Wily Prado MD Work Phone: [facility] 10-11-2024 15:48-0400 Diastolic blood pressure 60 mm[Hg] Wily Prado MD Work Phone: [facility] 10-11-2024 15:48-0400 Heart rate 64 /min Wily Prado MD Work Phone: [facility] 10-11-2024 15:48-0400 SaO2% (BldA) [Mass fraction] 94 % Wily Prado MD Work Phone: [facility] 10-11-2024 15:48-0400 Systolic blood pressure 130 mm[Hg] Wily Prado MD Work Phone: [facility] 05-11-2024 08:34-0500 Diastolic blood pressure 60 mm[Hg] Wily Prado MD Work Phone: [facility] 05-11-2024 08:34-0500 Systolic blood pressure 160 mm[Hg] Wily Prado MD Work Phone: [facility] 05-08-2024 08:24-0500 Body height 149.9 cm Wily Prado MD Work Phone: [facility] 05-08-2024 08:24-0500 Body mass index (BMI) [Ratio] 33.33 kg/m2 Wily Prado MD Work Phone: [facility] 05-08-2024 08:24-0500 Body weight 74.84 kg Wily Prado MD Work Phone: [facility] 05-08-2024 08:24-0500 Diastolic blood pressure 92 mm[Hg] Wily Prado MD Work Phone: [facility] 05-08-2024 08:24-0500 Heart rate 61 /min Wily Prado MD Work Phone: [facility] 05-08-2024 08:24-0500 Respiratory rate 17 /min Wily Prado MD Work Phone: [facility] 05-08-2024 08:24-0500 SaO2% (BldA) [Mass fraction] 98 % Wily Prado MD Work Phone: [facility] 05-08-2024 08:24-0500 Systolic blood pressure 184 mm[Hg] Wily Prado MD Work Phone: [facility] 01-17-2024 10:04-0400 Body height 149.9 cm Wily Prado MD Work Phone: [facility] 01-17-2024 10:04-0400 Body mass index (BMI) [Ratio] 33.12 kg/m2 Wily Prado MD Work Phone: [facility] 01-17-2024 10:04-0400 Body weight 74.39 kg Wily Prado MD Work Phone: [facility] 01-17-2024 10:04-0400 Diastolic blood pressure 84 mm[Hg] Wily Prado MD Work Phone: [facility] 01-17-2024 10:04-0400 Heart rate 58 /min Wily Prado MD Work Phone: [facility] 01-17-2024 10:04-0400 SaO2% (BldA) [Mass fraction] 97 % Wily Prado MD Work Phone: [facility] 01-17-2024 10:04-0400 Systolic blood pressure 138 mm[Hg] Wily Prado MD Work Phone: [facility] 02-01-2023 10:58-0400 Body temperature 97.2 [degF] MD Wily Prado Work Phone: [facility] 02-01-2023 10:58-0400 Body weight 78.92 kg MD Wily Prado Work Phone: [facility] 02-01-2023 10:58-0400 Diastolic blood pressure 66 mm[Hg] MD Wily Prado Work Phone: [facility] 02-01-2023 10:58-0400 Heart rate 67 /min MD Wily Prado Work Phone: [facility] 02-01-2023 10:58-0400 Respiratory rate 16 /min MD Wily Prado Work Phone: [facility] 02-01-2023 10:58-0400 SaO2% (BldA) [Mass fraction] 95 % MD Wily Prado Work Phone: [facility] 02-01-2023 10:58-0400 Systolic blood pressure 171 mm[Hg] MD Wily Prado Work Phone: [facility] 11-02-2022 09:46-0400 Body temperature 97.8 [degF] MD Wily Prado Work Phone: [facility] 11-02-2022 09:46-0400 Body weight 78.01 kg MD Wily Prado Work Phone: [facility] 11-02-2022 09:46-0400 Diastolic blood pressure 79 mm[Hg] MD Wily Prado Work Phone: [facility] 11-02-2022 09:46-0400 Heart rate 64 /min MD Wily Prado Work Phone: [facility] 11-02-2022 09:46-0400 Respiratory rate 16 /min MD Wily Prado Work Phone: [facility] 11-02-2022 09:46-0400 SaO2% (BldA) [Mass fraction] 95 % MD Wily Prado Work Phone: [facility] 11-02-2022 09:46-0400 Systolic blood pressure 179 mm[Hg] MD Wily Prado Work Phone: [facility] 07-30-2022 10:49-0400 Body temperature 97.7 [degF] MD Wily Prado Work Phone: [facility] 07-30-2022 10:49-0400 Body weight 81 kg MD Wily Prado Work Phone: [facility] 07-30-2022 10:49-0400 Diastolic blood pressure 81 mm[Hg] MD Wily Prado Work Phone: [facility] 07-30-2022 10:49-0400 Heart rate 64 /min MD Wily Prado Work Phone: [facility] 07-30-2022 10:49-0400 Respiratory rate 16 /min MD Wily Prado Work Phone: [facility] 07-30-2022 10:49-0400 SaO2% (BldA) [Mass fraction] 96 % MD Wily Prado Work Phone: [facility] 07-30-2022 10:49-0400 Systolic blood pressure 166 mm[Hg] MD Wily Prado Work Phone: [facility] 04-26-2022 09:37-0500 Body temperature 97.8 [degF] MD Wily Prado Work Phone: [facility] 04-26-2022 09:37-0500 Body weight 80.4 kg MD Wily Prado Work Phone: [facility] 04-26-2022 09:37-0500 Diastolic blood pressure 71 mm[Hg] MD Wily Prado Work Phone: [facility] 04-26-2022 09:37-0500 Heart rate 60 /min MD Wily Prado Work Phone: [facility] 04-26-2022 09:37-0500 Respiratory rate 16 /min MD Wily Prado Work Phone: [facility] 04-26-2022 09:37-0500 SaO2% (BldA) [Mass fraction] 93 % MD Wily Prado Work Phone: [facility] 04-26-2022 09:37-0500 Systolic blood pressure 145 mm[Hg] MD Wily Prado Work Phone: [facility] 02-22-2022 11:08-0400 Body temperature 98 [degF] MD Wily Prado Work Phone: [facility] 02-22-2022 11:08-0400 Body weight 80.73 kg MD Wily Prado Work Phone: [facility] 02-22-2022 11:08-0400 Diastolic blood pressure 56 mm[Hg] MD Wily Prado Work Phone: [facility] 02-22-2022 11:08-0400 Heart rate 65 /min MD Wily Prado Work Phone: [facility] 02-22-2022 11:08-0400 Respiratory rate 16 /min MD Wily Prado Work Phone: [facility] 02-22-2022 11:08-0400 SaO2% (BldA) [Mass fraction] 95 % MD Wily Prado Work Phone: [facility] 02-22-2022 11:08-0400 Systolic blood pressure 163 mm[Hg] MD Wily Prado Work Phone: [facility] 01-12-2022 11:24-0400 Body temperature 97.9 [degF] MD Wily Prado Work Phone: [facility] 01-12-2022 11:24-0400 Body weight 87.86 kg MD Wily Prado Work Phone: [facility] 01-12-2022 11:24-0400 Diastolic blood pressure 63 mm[Hg] MD Wily Prado Work Phone: [facility] 01-12-2022 11:24-0400 Heart rate 58 /min MD Wily Prado Work Phone: [facility] 01-12-2022 11:24-0400 Respiratory rate 18 /min MD Wily Prado Work Phone: [facility] 01-12-2022 11:24-0400 SaO2% (BldA) [Mass fraction] 97 % MD Wily Prado Work Phone: [facility] 01-12-2022 11:24-0400 Systolic blood pressure 169 mm[Hg] MD Wily Prado Work Phone: [facility] 01-12-2022 11:14-0400 Body height 152.4 cm MD Wily Prado Work Phone: [facility] 02-24-2021 13:00-0400 Body height 152.4 cm Mikie West Other [facility] Other 02-24-2021 13:00-0400 Body mass index (BMI) [Ratio] 37.1 kg/m2 Mikie West Other [facility] Other 02-24-2021 13:00-0400 Body temperature 97.6 [degF] Mikie West Other [facility] Other 02-24-2021 13:00-0400 Body weight 86.18 kg Mikie West Other [facility] Other 02-24-2021 13:00-0400 Diastolic blood pressure 67 mm[Hg] Mikie West Other [facility] Other 02-24-2021 13:00-0400 Systolic blood pressure 166 mm[Hg] Mikie Mijaresrer Other [facility] Other Encounters Encounter Date Encounter Type Care Provider Facility Start: 02-11-2025 End: 02-11-2025 Refill Latonya Joseph PA Work Phone: [facility] [place] [facility] Comment on above: 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, with long-term current use of insulin (HCC) Start: 01-28-2025 End: 01-28-2025 ambulatory Danitza Murray MD Facility:[facility] Start: 01-07-2025 End: 01-07-2025 ambulatory Danitza Murray MD Facility:[facility] Start: 12-24-2024 End: 12-24-2024 ambulatory Danitza Murray MD Facility:[facility] Start: 12-14-2024 End: 12-14-2024 Refill Latonya Joseph PA Work Phone: [facility] [place] [facility] Comment on above: Other insomnia Start: 12-10-2024 End: 12-11-2024 Refill Wily Prado MD Work Phone: [facility] [place] [facility] Comment on above: Other insomnia Start: 11-18-2024 End: 11-19-2024 Refill Wily Prado MD Work Phone: [facility] Comment on above: Essential hypertensi on Start: 11-09-2024 End: 11-09-2024 Refill Wily Prado MD Work Phone: [facility] Comment on above: Other insomnia Start: 10-19-2024 End: 10-19-2024 ambulatory RUGEN M JOHAN Not Available Start: 10-12-2024 End: 10-12-2024 Telephone encounter Latonya Joseph PA Work Phone: [facility] Start: 10-11-2024 End: 10-11-2024 ambulatory RUGEN M JOHAN Not Available Start: 10-11-2024 End: [...] emergency (CMS/HCC) Start: 05-08-2024 End: 05-08-2024 ambulatory WILY PRADO Not Available Start: 05-04-2024 End: 05-04-2024 Refill [...] polyneuropathy, with long-term current use of insulin ([facility]) Essential hypertensi on ([facility]) Start: 01-17-2024 End: 01-17-2024 Office outpatient visit 25 minutes Wily Prado MD Work Phone: [facility] Comment on above: Lumbar spondylosis ( Primary Dx); Other insomnia; 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 claudication Start: 01-17-2024 End: 01-17-2024 ambulatory WILY PRADO Not Available Start: 01-11-2024 End: 01-11-2024 Bamboo [...] Start: 01-09-2024 End: 01-09-2024 Bamboo flowsheet Eddie Brink REHAB TECHNICIAN [facility] Start: 01-09-2024 End: 01-09-2024 Bamboo flowsheet Eddie Brink REHAB TECHNICIAN [facility] Start: 01-09-2024 End: 01-09-2024 ambulatory Eddie Ambrocio REHAB TECHNICIAN [facility] Comment on above: Muscle spasm of back (Primary Dx); Bilateral hip pain; Acute bilateral low back pain with sciatica, sciatica laterality unspecified; Lumbar spondylosis Start: 01-05-2024 End: 01-05-2024 ambulatory London Crabtree REHAB TECHNICIAN [facility] Comment on above: Muscle spasm of back (Primary Dx); Bilateral hip pain; Acute bilateral low back pain with sciatica, sciatica laterality unspecified; Lumbar spondylosis Start: 01-02-2024 End: 01-02-2024 ambulatory JALYN GUAN Not Available Start: 12-29-2023 End: 12-29-2023 ambulatory LONDON BRO Not Available Start: 12-27-2023 End: 12-27-2023 ambulatory JALYN GUAN Not Available Start: 12-26-2023 Assay of hemosiderin , quant London Crabtree REHAB TECHNICIAN [facility] Start: 12-26-2023 End: 12-26-2023 ambulatory WILY PRADO Not Available Start: 12-20-2023 End: 12-20-2023 ambulatory LOGAN KAUR Not Available Start: 09-16-2023 End: 09-16-2023 Patient encounter procedure MD Wily Prado Work Phone: [facility] [place] Work Phone: Start: 09-16-2023 End: 09-16-2023 ambulatory MD Wily Prado Work Phone: [facility] Work Phone: Start: 06-28-2023 End: 06-28-2023 ambulatory London Crabtree REHAB TECHNICIAN [facility] Comment on above: Acute [...] pain Start: 06-16-2023 End: 06-16-2023 ambulatory Som T Davidraymond PT Work Phone: [facility] Comment on above: Acute bilateral low back pain with sciatica, sciatica laterality unspecified (Primary Dx); Lumbar spondylosis; Bilateral hip pain Start: 06-16-2023 Bamboo flowsheet Som brown PT Work Phone: [facility] Start: 06-16-2023 Bamboo flowsheet Som brown PT Work Phone: [facility] Start: 06-16-2023 Telephone encounter Wily Swenson MD Work Phone: [facility] Comment on above: Med Refill ([facility] [place]) Acute bilateral low back pain with bilateral sciatica (Primary Dx) Start: 02-01-2023 ambulatory MD Wily landers Work Phone: [facility] Work Phone: Start: 02-01-2023 Registered Recurring MD Wily Prado Work Phone: [facility] Work Phone: Start: 11-02-2022 End: 11-02-2022 ambulatory MD Wily Prado Work Phone: [facility] Work Phone: Start: 11-02-2022 End: 11-02-2022 Registered Recurring MD Wily Prado Work Phone: [facility] Work Phone: Start: 07-30-2022 End: 07-30-2022 ambulatory MD Wily Prado Work Phone: [facility] Work Phone: Start: 07-30-2022 End: 07-30-2022 Registered Recurring MD Wily Prado Work Phone: [facility] Work Phone: Start: 04-26-2022 End: 04-26-2022 ambulatory MD Wily Prado Work Phone: [facility] Work Phone: Start: 04-26-2022 End: 04-26-2022 Registered Recurring MD Wily Prado Work Phone: [facility] Start: 02-22-2022 End: 02-22-2022 ambulatory MD Wily Prado Work Phone: [facility] Work Phone: Start: 02-22-2022 End: 02-22-2022 Registered Recurring MD Wily Prado [facility] Start: 02-17-2022 End: 02-17-2022 ambulatory UNKNOWN PROVIDER Facility:[facility] Start: 02-17-2022 End: 02-17-2022 Emergency department patient visit [facility] Emergency Triage, Treat and Transport Comment on above: Arrived Start: 01-21-2022 End: 01-21-[address] NATALIA LYN Facility:[facility] Start: 01-20-2022 End: 01-20-[address] MIKIE GARCIA Facility:[facility] Start: 01-20-2022 End: 01-20-2022 Departed Referred MD Wily Prado Work Phone: [facility] [place] Start: 01-15-2022 End: 01-19-2022 ambulatory UNKNOWN PROVIDER Facility:[facility] Start: 01-14-2022 End: 01-14-[address] LOGAN GATES Facility:[facility] Start: 01-12-2022 End: 01-12-2022 Registered Recurring MD Wily Prado Work Phone: [facility] Start: 01-12-2022 Registered Recurring MD Wily Prado [facility] Start: 01-04-2022 End: 01-04-[address] GINGER BROOKS Facility:[facility] Start: 12-24-2021 End: 12-24-2021 ambulatory AUNG ZIMMERMAN Facility:[facility] Start: 11-24-2021 End: 11-24-[address] LOGAN GATES Facility:[facility] Start: 11-13-2021 Encounter for genera l adult medical examination without abnormal findings DR LATONYA JOSEPH [facility] Start: 11-10-2021 End: 11-11-[address] [...] vi sit 15 minutes Mikie West [facility] Vascular Surgery Procedures Date Procedure Procedure Detail Performing Clinician Start: 10-11-2024 Hemoglobin glycosylated a1c Wily Prado MD Work Phone: Start: 09-16-2023 XR pre/post mri xray MD Wily Prado Work Phone: Start: 09-16-2023 MR lumbar spine wo con MD Wily Prado Work Phone: Start: 08-25-2023 History of carotid endarterectomy H/O carotid endarterectomy London Crabtree REHAB TECHNICIAN Start: 01-05-2022 Colonoscopy Som Sheffield PT Work [...] Visit [facility] [address] [facility] [address] [place] [id number] Wily Prado MD [address] [place] [address] [facility] Start: 10-11-2024 End: 10-11-2025 US.doppler Carotid arteries - bilateral Vascular US carotid artery duplex bilateral Imaging Routine Bilateral carotid bruits Expected: 10/11/2024, Expires: 10/11/2025 [facility] Work Phone: Comment on above: Expected: 10/11/2024 , Expires: 10/11/2025 Start: 05-11-2024 End: 05-11-2024 Clinical Support 05/11/2024 10:00 AM EST Clinical Support [facility] [address] [place] [phone] [facility] Start: 05-10-2024 Urine screening [...] Visit [facility] [address] [facility] [address] [place] [address] Wily Prado MD [address] [place] [address] [facility] Start: 01-15-2024 Influenza vaccination Influenza Vacc ine (#1) [facility] Start: 01-11-2024 End: 01-11-2024 ambulatory 01/11/2024 10:30 AM EDT Treatment [facility] [address] [facility] [address] [place] [phone] Jalyn Guan, PT [facility] Start: 01-09-2024 End: 01-09-2024 ambulatory [facility] Comment on above: Arrived Start: 12-28-2023 Medicare Annual Well ness (AWV) Medicare Annual Wellness (AWV) [facility] Start: 07-05-2023 End: 07-05-2023 ambulatory 07/05/2023 2:30 PM EST Treatment [facility] [address] [facility] [address] [place] [id number] London Crabtree PTA [facility] Start: [...] Treatment [facility] [address] [facility] [address] [place] [phone] Som Sheffield, PT [address] [facility] [address] [place] [address] [facility] Start: 06-16-2023 End: 06-16-2023 ambulatory 06/16/2023 2:00 PM EST Treatment [facility] [address] [place] [place] [address] Som Sheffield, PT [address] [facility] [address] [place] [address] Arrived [facility] Comment on above: Arrived Start: 11-22-2022 Screening for malign ant neoplasm of colon FIT-DNA [facility] Start: 10-14-2022 Annual Wellness Visi t (G0439) Annual Wellness Visit (G0439) [facility] Start: 08-30-2022 [facility] Start: 08-23-2022 [facility] Start: 02-28-2022 Glaucoma screening Diabetes: R etinopathy Screening [facility] Start: 02-13-2022 Influenza vaccination Influenza Vacc ine (#1) [facility] Start: 02-04-2022 [facility] Start: 02-02-2022 COVID-19 Vaccine (5 - Booster for Pfizer series) COVID-19 Vaccine (5 - Booster for Pfizer series) [facility] Start: 01-28-2022 [facility] Start: 11-10-2021 Screening for malign ant neoplasm of colon [facility] Start: 11-07-2021 Pneumococcal vaccination Pneum ococcal [...] + acellular pertussis vaccine (product) Tdap Booster [facility] Start: 1945 Screening for malign ant neoplasm of colon [facility] Start: 1945 Screening for malign ant neoplasm of lung Lung Cancer Screening Shared Decision Making [facility] metabo lic 1999 panel - Serum or Plasma [facility] Comprehensive metabo lic 1999 panel - Serum or Plasma [facility] Comprehensive metabo lic 1999 panel - Serum or Plasma [facility] Ferritin [Mass/volum e] in Serum or Plasma [facility] Ferritin [Mass/volum e] in Serum or Plasma [facility] Work Phone: [facility] Immunizations Immunization Date Immunization Notes Care Provider Fa [facility] 01-06-2024 influenza, high dose seasonal, preservative-free Wily Prado MD Work Phone: [facility] 01-06-2024 influenza virus vaccine, unspecified formulation Wily Prado MD Work Phone: [facility] 06-17-2023 RSV, recombinant, protein subunit RSVpreF, adjuvant reconstitu, 120mcg/0.5mL, PF (Arexvy) Som Sheffield PT Work Phone: [facility] 03-21-2023 Influenza, Seasonal, Quadrivalent, Adjuvanted Som Sheffield PT Work Phone: [facility] 03-21-2023 influenza virus vaccine, unspecified formulation London Crabtree REHAB TECHNICIAN [facility] 03-19-2022 influenza, high dose seasonal, preservative-free Som Sheffield PT Work Phone: [facility] 01-04-2022 diphtheria, tetanus toxoids and pertussis vaccine [facility] 01-04-2022 tetanus toxoid, redu blake diphtheria toxoid, and acellular pertussis vaccine, adsorbed Som Sheffield PT Work Phone: [facility] 10-30-2021 tetanus toxoid, redu blake diphtheria toxoid, and acellular pertussis vaccine, adsorbed Som Davidraymond PT Work Phone: [facility] 04-21-2021 Influenza, seasonal vaccine, quadrivalent, adjuvanted, 0.5mL dose, preservative free (FWI=577) [facility] 04-21-2021 Seasonal, trivalent, recombinant, injectable influenza vaccine, preservative free Som Sheffield PT Work Phone: [facility] 04-21-2021 influenza virus vaccine, unspecified formulation [facility] 11-07-2020 pneumococcal conjuga te vaccine, 13 valent [facility] 11-07-2020 zoster vaccine recombinant [facility] 07-14-2020 COVID-19 Vaccine Pfi zer - Documentation Purposes Only Mikie West Other [facility] 06-22-2020 COVID-19 Vaccine Pfi zer - Documentation Purposes Only Mikie West Other [facility] 2018 pneumococcal polysaccharide vaccine, 23 valent Mikie Brett Other [facility] 06-13-2009 novel [id number], preservative-free, injectable [facility] Payers Date Payer Category Payer Self-pay [id number] 2022 [facility] [id number] 2022 Unknown [id number] .[id number] 2012 Medicare [id number]. 1.13.56.2. [id number] 1959 Medicare [id number] 2.16.840.1.885184.19 1959 Unknown [id number] 2.16.840.1.470049.19 1947 Unknown [id number] 2.16.840.1.311099.3.579.2 .593 1947 Unknown [id number] 2.16.840.1.100142.3.579.2 .593 1947 Unknown [id number] 2.16.840.1.881132.3.579.2 .593 1947 Unknown [id number] 2.16.840.1.029263.3.579.2 .593 1947 Unknown [id number] 2.16.840.1.623793.3.579.2 .593 1947 Unknown [id number] 2.16.840.1.717080.3.579.2 .593 1947 Unknown [id number] 2.16.840.1.599720.3.579.2 .593 1947 Unknown [id number] 2.16.840.1.111910.3.579.2 .593 1947 Unknown [id number] 2.16.840.1.749552.3.579.2 .593 1947 Unknown [id number] 2.16.840.1.360382.3.579.2 .593 1947 Unknown [id number] 2.16.840.1.763387.3.579.2 .593 1947 Unknown [id number] 2.16.840.1.421435.3.579.2 .593 1947 Unknown [id number] 2.16.840.1.667322.3.579.2 .732 1947 Unknown [id number] 2.16.840.1.636822.3.579.2 .732 1947 Unknown [id number] 2.16.840.1.350219.3.579.2 .125 1947 Unknown [id number] 2.16.840.1.812132.3.579.2 .1258 1947 Unknown [id number] 2.16.840.1.402532.3.579.2 .125 1947 Unknown [id number] 2.16.840.1.371814.3.579.2 .1258 1947 Unknown [id number] 2.16.840.1.004688.3.579.2 .1258 1947 Unknown [id number] 2.16.840.1.700062.3.579.2 .1258 1947 Unknown [id number] 2.16.840.1.770363.3.579.2 .125 1947 Unknown [id number] 2.16.840.1.377842.3.579.2 .125 1947 Unknown [id number] 2.16.840.1.570200.3.579.2 .125 1947 Unknown [id number] 2.16.840.1.271218.3.579.2 .125 1947 Unknown [id number] 2.16.840.1.663383.3.579.2 .1258 1947 Unknown [id number] 2.16.840.1.756131.3.579.2 .125 1947 Unknown [id number] 2.16.840.1.757228.3.579.2 .125 1947 Unknown [id number] 2.16.840.1.588369.3.579.2 .196 1947 Unknown [id number] 2.16.840.1.018944.3.579.2 .196 1947 Unknown [id number] 2.16.840.1.153157.3.579.2 .196 1947 Unknown [id number] 2.16.840.1.440150.3.579.2 .196 Unknown [id number] 2.16.840.1.792904.3.579.2 .531 Social History Date Type Detail Facility Unknown if ever smoked [facility] Other Start: 05-10-2023 End: 10-11-2024 Sex Assigned At [employer] Other Start: 01-12-2022 End: 02-01-2023 Tobacco smoking status ILIS Smoker (finding) [facility] Start: 1945 Sex Assigned [address] Female [facility] Tobacco smoking stat us [facility]: 1945 Sex Assigned At Not on file [facility] Start: 12-27-2022 End: 05-08-2024 Tobacco smoking status [facility] Smokes tobacco daily [facility] History of tobacco use Cigarette Smoker [...] intake: more than 4 cups per day [facility] Medical Equipment Procedure Code Equipment Code Equipment Origin al Text Equipment Identifier Dates Endarterectomy, carotid Cardiovascular patch, animal-derived ([id number] [facility] Start: 10-02-2020 Angioplasty of carotid artery with insertion of stent Bare-metal carotid artery stent ()[id number] [facility] Start: 12-17-2019 USE DIRECTED TWICE A DAY [id number] Start: 12-20-2022 1 each by Other route in the morning and 1 each before bedtime. [id number] USE TO TEST BLOO D SUGAR TWICE DAILY [id number] Start: 06-27-2023 Use as instructed [id number] Start: 05-31-2024 USE INSTRUCTED [id number] Start: 08-20-2024 USE TO TEST BLOO D SUGAR TWICE DAILY [id number] Start: 12-10-2024 Goals Date Patient Goal Desired Activity /State Functional Status Date Assessment Result Facility 10-11-2024 Patient Health Quest ionnaire 2 item (PHQ-2) [Reported] [facility] Clinical Notes 02-24-2021 to 02-11-2025 Telephone Encounter - LUMA Garcia - 02/11/2025 10:28 AM EDTTelephone Encounter - LUMA Garcia - 02/11/2025 10:28 AM EDTTelephone Encounter - LUMA Garcia - 12/14/2024 12:17 PM EDT Note Date & Type Note Facility 02-11-2025 Telephone encount er Note Ivonne sent [facility] 02-11-2025 Miscellaneous Notes Formattin g of this note might be different from the original. Ivonne sent documented in this encounter [facility] 12-14-2024 Telephone encount er Note Resent, though it does show that [facility] filled this, hopefully she will not have an issue getting this at [facility] and the other Rx will be cancelled. [facility] 12-14-2024 Miscellaneous Notes Formattin g of this note might be different from the original. Resent, though it does show that [facility] filled this, hopefully she will [facility] an [facility] SYSTEM and the other Rx will be cancelled. Needs to go to [facility] documented in this encounter [facility] 12-14-2024 Telephone encount er Note Needs to go to [facility] 12-11-2024 Telephone encount er Note OARRS reviewed, Rx sent into patient's pharmacy. [facility] 12-11-2024 Miscellaneous Notes Formattin g of this note might be different from the original. OARRS reviewed, Rx sent into patient's pharmacy. documented in this encounter [facility] 11-19-2024 Telephone encount er Note Amlodipine sent. [facility] 11-19-2024 Miscellaneous Notes Formattin g of this note might be different from the original. Amlodipine sent. documented in this encounter [facility] 11-09-2024 Telephone encount er Note OARRS reviewed, Rx sent into patient's pharmacy. [facility] 11-09-2024 Miscellaneous Notes Formattin g of this note might be different from the original. OARRS reviewed, Rx sent into patient's pharmacy. [facility] 10/11/24 RF 10/11/24 documented in this encounter [facility] 11-09-2024 Telephone encount er Note OV 10/11/24 RF 10/11/24 [facility] 10-12-2024 Telephone encount er Note See TE from today. Rx will be filled at [facility]. [facility] 10-12-2024 Miscellaneous Notes Formattin g of this note might be different from the original. See TE from today. Rx will be filled at [facility]. Patient need refill on ALPRAZolam (Xanax) 0.5 MG . She asked if that could be sent to [facility] in [place]. documented in this encounter [facility] 10-12-2024 Telephone encount er Note [facility] called, questioning Xanax being sent to [facility]. Advised it was supposed to be filled at [facility], pt did want it filled there, not [facility]. They have a refill on file for her for 30 day supply and will proceed with filling it. They will contact [facility] and let them know that they are filling the Rx for the patient. [facility] 10-12-2024 Miscellaneous Notes Formattin g of this note might be different from the original. [facility] called, questioning Xanax being sent to [facility]. Advised it was supposed to be filled at [facility], pt did want it filled there, not [facility]. They have a refill on file for her for 30 day supply and will proceed with filling it. They will contact [facility] and let them know that they are filling the Rx for the patient. documented in this encounter [facility] 10-11-2024 Telephone encount er Note Patient need refill on ALPRAZolam (Xanax) 0.5 MG . She asked if that could be sent to [facility] in [place]. [facility] 10-11-2024 History of Presen t illness [...] and exercise. Associated Problem(s): Heart failure, unspecified ([facility]) Continue current meds. Associated Problem(s): Epilepsy, unspecified, [...] being taken. She does not see a impregnator and drier.Eye exam is current. Current Outpatient Medications on [...] tablet 3 insulin pen needle (Droplet Pen [place]) 32G x 4 mm misc USE INSTRUCTED [...] time each day at the same time. [place]-3 Fatty Acids (Fish Oil) 1000 MG capsule delayed-release Take 1 capsule by mouth 1 (one) time each day. omeprazole (PriLOSEC) [address] capsule TAKE 1 CAPSULE EVERY DAY 100 capsule 3 Welcome FundsTouch Ultra test strip USE TO TEST BLOOD [...] Diagnosis Date AMS (altered mental status) 10/30/2020 [facility] [place]emia Arthritis Asthma Breast lump Bronchitis Cancer ([facility]/HCC) cervical Carotid artery stenosis Cataract Chicken pox COPD (chronic obstructive pulmonary disease) ([facility]/HCC) Diabetes mellitus ([facility]/HCC) Disease of thyroid gland ([facility]/HCC) Emphysema lung ([facility]/HCC) History of being hospitalized 10/30/2020 [facility] Hyperlipemia ([facility]) Hypertension ([facility]/HCC) Measles Vascular calcification Past Surgical History: [...] Diabetes. documented in this encounter [facility] 10-11-2024 Telephone encount er Note Patient has appointment today. [facility] 10-11-2024 Miscellaneous Notes Formattin g of this note might be different from the original. Patient has appointment today. documented in this encounter [facility] 05-11-2024 History of Presen t illness Narrative Pt was here for a BP check documented in this encounter [facility] 05-08-2024 History of Presen t illness [...] time each day at the same time. [place]-3 Fatty Acids (Fish Oil) 1000 MG capsule [...] Diagnosis Date AMS (altered mental status) 10/30/2020 [facility] [place] Anemia Arthritis Asthma ([facility]/HCC) Breast lump Bronchitis Cancer ([facility]/HCC) cervical Carotid artery stenosis Cataract Chicken pox COPD (chronic obstructive pulmonary disease) ([facility]/HCC) Diabetes mellitus (CMS/HCC) Disease of thyroid gland (CMS/HCC) Emphysema lung ([facility]/HCC) History of being hospitalized 10/30/2020 A[facility] Hyperlipemia ([facility]/HCC) Hypertension ([facility]/HCC) Measles Vascular calcification Past Surgical History: [...] List Items Addressed This Visit Diabetes mellitus ([facility]/HCC) - Primary No Tobacco use Follow ADA [...] long distances while on medicines. Hypertensive emergency (CMS/[facility]) Add Norvasc Take all current blood medications If with severe or stroke like symptoms got to ER Other Visit Diagnoses Other insomnia Relevant Medications ALPRAZolam (Xanax) 0.5 MG tablet Follow up in about 3 days (around 05/11/2024) for Hypertension. documented in this encounter [facility] 05-04-2024 Telephone encount er Note 7 day supply sent. [facility] 05-04-2024 Miscellaneous Notes Formattin g of this note might be different from the original. 7 day supply sent. Pt made an appt for tues with johan , but she is needing a refill on her xanax if willing to send in for her please send to [facility] she stated it helps her sleep at night documented in this encounter [facility] 05-04-2024 Telephone encount er Note Pt made an appt for tues with johan , but she is needing a refill on her xanax if willing to send in for her please send to [facility] she stated it helps her sleep at night [facility] 03-20-2024 Telephone encount er Note OARRS reviewed, Rx sent into patient's pharmacy. [facility] 03-20-2024 Miscellaneous Notes Formattin g of this note might be different from the original. OARRS reviewed, Rx sent into patient's pharmacy. documented in this encounter [facility] 02-15-2024 Telephone encount er Note OARRS reviewed, Rx sent into patient's pharmacy. [facility] 02-15-2024 Miscellaneous Notes Formattin g of this note might be different from the original. OARRS reviewed, Rx sent into patient's pharmacy. documented in this encounter [facility] 02-10-2024 Telephone encount er Note Atorvastatin sent. [facility] 02-10-2024 Miscellaneous Notes Formattin g of this note might be different from the original. Atorvastatin sent. documented in this encounter [facility] 02-10-2024 Telephone encount er Note Janumet sent [facility] 02-10-2024 Miscellaneous Notes Formattin g of this note might be different from the original. Ivonne sent documented in this encounter [facility] 01-17-2024 History of Presen t illness [...] time each day at the same time. [place]-3 Fatty Acids (Fish Oil) 1000 MG capsule [...] Diagnosis Date AMS (altered mental status) 10/30/2020 [facility] [place] Anemia Arthritis Asthma ([facility]) Breast lump Bronchitis Cancer ([facility]/HCC) cervical Carotid artery stenosis Cataract Chicken pox COPD (chronic obstructive pulmonary disease) ([facility]) Diabetes mellitus ([facility]/HCC) Disease of thyroid gland (CMS/HCC) Emphysema lung ([facility]) History of being hospitalized 10/30/2020 AMS [facility] Hyperlipemia ([facility]) Hypertension ([facility]) Measles Vascular calcification Past Surgical History: Procedure [...] 04/17/2024). documented in this encounter [facility] 01-11-2024 History of Presen t illness [...] her feet; denies any recent falls. Precautions: [place] Subjective: Pt states she has been hurting [...] instructed in home exercise program. - met Residential Goals: To be met in 10 weeks [...] program. documented in this encounter [facility] 06-21-2023 History of Presen t illness [...] Date: documented in this encounter [facility] 06-16-2023 Telephone encount er Note Requesting refill of Tramadol - not on current med list. [facility] 06-16-2023 Miscellaneous Notes Formattin g of this note might be different from the original. Requesting refill of Tramadol - not on current med list. documented in this encounter [facility] 06-16-2023 History of Presen t illness [...] Date: documented in this encounter [facility] 11-02-2022 Progress note Note Date/Time November 02, 2022 10:01[facility] at [address] [address] Hem/Onc Follow Up Note - OP Signed Patient: Nuvia Martin MR#: [id number] : 1945 Acct:[id number] Age/Sex: 77 / F Type: REG RCR [...] (Verified 11/02/22 09:45) Diarrhea bacitracin [From Neosporin (ywq-obc-kbtfr)] Adverse Reaction (Verified 11/02/22 09:45) Blister contact metal agent Adverse Reaction (Verified 11/02/22 09:45) Rash neomycin [From Neosporin (otu-jzr-pstxi)] Adverse Reaction (Verified 11/02/22 09:45) Blister petrolatum,white [From Petroleum Jelly] Adverse Reaction (Verified 11/02/22 09:45) Blister polymyxin B [From Neosporin (gfj-swm-cubwj)] Adverse Reaction (Verified 11/02/2308:45) Blister Home Medications [...] PO QNOON 12/17/19 [History Confirmed 11/02/22] omega 8-twc-sil-fish oil 1,000 mg (120 mg-180 mg) capsule [...] % (Auto) 60.6, Lymph % (Auto) 26.9, [place] % (Auto) 9.5, Eos % (Auto) 1.7, Baso % (Auto) 1.3, Nucleat RBC Rel Count 0.2, Neut # (Auto) 3.8, Lymph # (Auto) 1.7, [place] # (Auto) 0.6, Eos # (Auto) 0.1, [...] for coordination of care (as documented) and giqu-cy-kvqh counseling of patient and/or family. Dictated By: Taylor Tijerina APRN DD/ 1000 Signed By: <Electronically signed by CARMELA Tijerina> 11/02/[address] [facility] Work Phone: 1([phone]) 322-260803-28-2023 Progress note Author Taylor Tijerina [facility] August 10, 2022 11:00am Note Date/Time July 30, 2022 11: 10am [facility] [place] [address] Hem/Onc Follow Up Note - OP Signed Patient: Nuvia Martin MR#: [id number] : 1945 Acct:[id number] Age/Sex: 77 / F Type: REG RCR [...] sat low at 15.4% and ferritin 27.4 PMFSH - Medical History Medical History: Medical [...] (Verified 07/30/22 10:44) Diarrhea bacitracin [From Neosporin (jak-cwu-gonrv)] Adverse Reaction (Verified 07/30/22 10:44) Blister contact metal agent Adverse Reaction (Verified 07/30/22 10:44) Rash neomycin [From Neosporin (azh-bjl-tknhi)] Adverse Reaction (Verified 07/30/22 10:44) Blister petrolatum,white [From Petroleum Jelly] Adverse Reaction (Verified 07/30/22 10:44) Blister polymyxin B [From Neosporin (hnk-keq-fbuqa)] Adverse Reaction (Verified 07/30/2309:44) Blister Home Medications [...] PO QNOON 12/17/19 [History Confirmed 07/30/22] omega 2-ffc-mcn-fish oil 1,000 mg (120 mg-180 mg) capsule [...] for coordination of care (as documented) and ktvl-rd-cfud counseling of patient and/or family. Dictated By: Taylor Tijerina APRN DD/ 1110 Signed By: <Electronically signed by CARMELA Tijerina> 08/10/[address] [facility] Work Phone: 1(145) 661-876012-12-2022 Progress note Author Emily Degroot [facility] April 26, 2022 3:23pm Note Date/Time April 26, 2022 3:16pm [facility] [place] [address] Hem/Onc Follow Up Note - OP Signed Patient: Nuvia Martin MR#: [id number] : 1945 Acct:[id number] Age/Sex: 76 / F Type: REG RCR [...] history of asthma, hives, eczema or rhinitis. PMFSH - Medical History Medical History: Medical [...] (Verified 04/26/22 09:36) Diarrhea bacitracin [From Neosporin (zju-tue-cwzwb)] Adverse Reaction (Verified 04/26/22 09:36) Blister contact metal agent Adverse Reaction (Verified 04/26/22 09:36) Rash neomycin [From Neosporin (pew-gzj-dzsec)] Adverse Reaction (Verified 04/26/22 09:36) Blister petrolatum,white [From Petroleum Jelly] Adverse Reaction (Verified 04/26/22 09:36) Blister polymyxin B [From Neosporin (rbk-ttj-ktbdx)] Adverse Reaction (Verified 04/26/2209:36) Blister Home Medications [...] PO QNOON 12/17/19 [History Confirmed 04/26/22] omega 9-lgj-zlo-fish oil 1,000 mg (120 mg-180 mg) capsule [...] % (Auto) 68.2, Lymph % (Auto) 20.8, [place] % (Auto) 6.9, Eos % (Auto) 3.3, Baso % (Auto) 0.8, Nucleat RBC Rel Count 0.1, Neut # (Auto) 4.7, Lymph # (Auto) 1.4, [place] # (Auto) 0.5, Eos # (Auto) 0.2, [...] for coordination of care (as documented) and nxgn-ib-rcee counseling of patient and/or family. Dictated By: Emily Degroot APRN DD/ 1514 Signed By: <Electronically signed by CARMELA Degroot> 04/26/22 1523 [facility] Work Phone: 1(504) 432-475510-10-2022 Progress note Author Marisabel Noel [facility] February 22, 2022 12:49pm Note Date/Time February 22, 2022 1 2:45pm [facility] [place] [address] Hem/Onc Follow Up Note - OP Signed Patient: Nuvia Martin MR#: [id number] : 1945 Acct:[id number] Age/Sex: 76 / F Type: REG RCR [...] history of asthma, hives, eczema or rhinitis. PENDING SALE TO [facility] - Medical History Medical History: [...] (Verified 02/22/22 11:05) Diarrhea bacitracin [From Neosporin (mbw-yck-yzalp)] Adverse Reaction (Verified 02/22/22 11:05) Blister contact metal agent Adverse Reaction (Verified 02/22/22 11:05) Rash neomycin [From Neosporin (nwk-zjt-qvqux)] Adverse Reaction (Verified 02/22/22 11:05) Blister petrolatum,white [From Petroleum Jelly] Adverse Reaction (Verified 02/22/22 11:05) Blister polymyxin B [From Neosporin (cnb-dah-nequi)] Adverse Reaction (Verified 02/22/2211:05) Blister Home Medications [...] PO QNOON 12/17/19 [History Confirmed 02/22/22] omega 4-asm-sbj-fish oil 1,000 mg (120 mg-180 mg) capsule [...] % (Auto) N/A, Lymph % (Auto) N/A, [place] % (Auto) N/A, Eos % (Auto) N/A,Baso % (Auto) N/A, Neut # (Auto) N/A, Lymph # (Auto) N/A, [place] # (Auto) N/A, Eos# (Auto) N/A, Baso [...] for coordination of care (as documented) and dtye-xg-lnmu counseling of patient and/or family. Dictated By: Marisabel Noel MD DD/ 1243 Signed By: <Electronically signed by Marisabel Noel MD> 02/22/22 1249 [facility] Work Phone: [phone] 466-161610-05-2022 History of Present illness Narrative* Cassidy Julio MD - 02/17/2022 9:17 AM EDT Images from the original note were not included. EMERGENCY TRIAGE, TREAT AND TRANSPORT (ET3) DOCUMENTATION OF TELEHEALTH VISIT Date / Time: 02/17/2022916 Name: Nuvia Martin : 1945 SSN: [id number] EMS Agency: [facility] [x] Verbal consent obtained [] [...] by: Cassidy Julio MD documented in this [id number] Consult note Author Maciel Sofia [facility] January 19, 2022 2:52pm Note Date/Time January 12, 2022 12 :54pm [facility] [place] [address] Hem/Onc Consult Note - OP Signed Patient: Nuvia Martin MR#: [id number] : 1945 Acct:[id number] Age/Sex: 76 / F Type: REG RCR [...] Unable to locate recent iron studies from [facility]. She will have a colonoscopy and [...] fevers, chills, sweats, or unintentional weight loss. PENDING SALE TO [facility] - Medical History Medical History: [...] (Verified 01/12/22 11:14) Diarrhea bacitracin [From Neosporin (stc-ttj-gyeaj)] Adverse Reaction (Verified 01/12/22 11:14) Blister contact metal agent Adverse Reaction (Verified 01/12/22 11:14) Rash neomycin [From Neosporin (wrx-svg-lymss)] Adverse Reaction (Verified 01/12/22 11:14) Blister petrolatum,white [From Petroleum Jelly] Adverse Reaction (Verified 01/12/22 11:14) Blister polymyxin B [From Neosporin (eei-oko-blcfn)] Adverse Reaction (Verified 01/12/2211:14) Blister Home Medications [...] PO QNOON 12/17/19 [History Confirmed 01/12/22] omega 5-vzx-quk-fish oil 1,000 mg (120 mg-180 mg) capsule [...] for coordination of care (as documented) and ttic-xc-cdhr counseling of patient and/or family. Dictated By: Taylor Tijerina APRN DD/ 1241 Signed By: <Electronically signed by CARMELA Tijerina> 01/12/22 1403 <Electronically signed by Maciel Sofia II, DO> 01/19/[address] [facility] Work Phone: [phone]) 473-435508-22-2022 NotePROCEDURE: XR ELBOW RT 2V HISTORY: Bone injury ; acute elbow pain after falling COMPARISON: None. FINDINGS: BONES:No fracture, acute abnormality, or significant arthropathy. SOFT TISSUES:Soft tissue swelling posterior to the proximal forearm. EFFUSION:None visible. OTHER: Negative. IMPRESSION: 1. No acute bone abnormality or joint effusion. Electronically authenticated by: GINGER BROOKS Date: 2022-01-04 13:57[facility]10-12-2021 Evaluation note* Encounter Date Diagnosis Assessment [...] readiness for smoking cessation at this time. Yunzhisheng Other Evaluation note* Diagnosis Onset Date Resolution Status Iron deficiency anemia acute [facility] Work Phone: Evaluation note* Diagnosis [...] region and thigh documented in this encounter [facility]* Diagnosis Acute bilateral low back pain with sciatica, sciatica laterality unspecified- Primary Lumbar spondylosis Lumbosacral spondylosis without myelopathy Bilateral hip pain Pain in joint, pelvic region and thigh documented in this encounter [facility] HealthcareEvaluation noteNo assessment information availablePrem[facility] Work Phone: Evaluation note* Diagnosis Other insomnia documented in this encounter [facility] HealthcareEvaluation note* Diagnosis Acute bilateral low [...] (CMS/HCC) Other insomnia documented in this encounter [facility] HealthcareEvaluation note* Diagnosis Acute bilateral low back pain with sciatica, sciatica laterality unspecified- Primary Type 2 diabetes mellitus with diabetic polyneuropathy, with long-term current use of insulin (CMS/[facility]) Lumbar spondylosis Lumbosacral spondylosis without myelopathy Lumbar adjacent segment disease with spondylolisthesis- Primary Acute bilateral low back pain with bilateral sciatica Type 2 diabetes mellitus with diabetic polyneuropathy, with long-term current use of insulin (CMS/[facility]) Bilateral carotid artery stenosis Occlusion and stenosis of carotid artery without mention of cerebral infarction Claustrophobia (CMS/[facility]) Other isolated or specific phobias Type 2 diabetes mellitus with diabetic peripheral angiopathy without gangrene, without long-term current use of insulin (CMS/[facility]) Hypervitaminosis B6- Primary Other hyperalimentation Acute bilateral low back pain with bilateral sciatica Lumbar adjacent segment disease with spondylolisthesis Lumbar spondylosis Lumbosacral spondylosis without myelopathy Stenosis of carotid artery, unspecified laterality Lumbar paraspinal muscle spasm Other symptoms referable to back Carpal tunnel syndrome, bilateral Carpal tunnel syndrome Migraine without aura and without status migrainosus, not intractable (CMS/[facility]) OLIVA (obstructive sleep apnea) Obstructive sleep apnea (adult) (pediatric) Routine general medical examination at health care facility- Primary Routine general medical examination at a health care facility Type 2 diabetes mellitus with diabetic peripheral angiopathy without gangrene, without long-term current use of insulin (CMS/[facility]) Peripheral vascular disease, unspecified (CMS/[facility]) Peripheral vascular disease, unspecified Heart failure, unspecified (CMS/[facility]) Heart failure, unspecified Epilepsy, unspecified, not intractable, without status epilepticus (CMS/[facility]) Other secondary pulmonary hypertension (CMS/[facility]) Atherosclerosis of aorta ([facility]) Atherosclerosis of aorta Medicare annual wellness visit, subsequent Diabetes mellitus with peripheral vascular disease ([facility]) Other insomnia documented in this encounter [facility]* Diagnosis Muscle spasm of back- Primary Bilateral hip pain Pain in joint, pelvic region and thigh Acute bilateral low back pain with sciatica, sciatica laterality unspecified Lumbar spondylosis Lumbosacral spondylosis without myelopathy documented in this encounter [facility]* Diagnosis Muscle spasm of back- Primary Bilateral hip pain Pain in joint, pelvic region and thigh Acute bilateral low back pain with sciatica, sciatica laterality unspecified Lumbar spondylosis Lumbosacral spondylosis without myelopathy documented in this encounter [facility]* Diagnosis Lumbar spondylosis- Primary Lumbosacral spondylosis without myelopathy Other insomnia 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 claudication documented in this encounter [facility]* Diagnosis Type 2 diabetes mellitus with diabetic polyneuropathy, with long-term current use of insulin (CMS/HCC) documented in this encounter [facility]Evaluation note* Diagnosis Essential hypertension (CMS/HCC) [...] Unspecified essential hypertension Other insomnia Hypertensive emergency (CMS/[facility]) documented in this encounter [facility]Evaluation note* Diagnosis Acute bilateral low back pain with sciatica, sciatica laterality unspecified- Primary Type 2 diabetes mellitus with diabetic polyneuropathy, with long-term current use of insulin (CMS/[facility]) Lumbar spondylosis Lumbosacral spondylosis without myelopathy Lumbar adjacent segment disease with spondylolisthesis- Primary Acute bilateral low back pain with bilateral sciatica Type 2 diabetes mellitus with diabetic polyneuropathy, with long-term current use of insulin (CMS/HCC) Bilateral carotid artery stenosis Occlusion and stenosis of carotid artery without mention of cerebral infarction Claustrophobia ([facility]) Other isolated or specific phobias Type 2 [...] aura and without status migrainosus, not intractable ([facility]) OLIVA (obstructive sleep apnea) Obstructive sleep apnea [...] secondary pulmonary hypertension (CMS/HCC) Atherosclerosis of aorta ([facility]) Atherosclerosis of aorta Medicare annual wellness visit, subsequent Diabetes mellitus with peripheral vascular disease ([facility]) Type 2 diabetes mellitus with diabetic polyneuropathy, [...] without long-term current use of insulin (/HCC) Hypervitaminosis B6- Primary Other hyperalimentation Acute bilateral [...] Unspecified essential hypertension Other insomnia Hypertensive emergency (CMS/[facility]) Other insomnia documented in this encounter [facility] HealthcareEvaluation note* Diagnosis Acute bilateral low [...] artery without mention of cerebral infarction Claustrophobia (CMS/[facility]) Other isolated or specific phobias Type 2 diabetes mellitus with diabetic peripheral angiopathy without gangrene, without long-term current use of insulin (/[facility]) Hypervitaminosis B6- Primary Other hyperalimentation Acute bilateral [...] Other secondary pulmonary hypertension Atherosclerosis of aorta (CMS/[facility]) Atherosclerosis of aorta Medicare annual wellness visit, subsequent Diabetes mellitus with peripheral vascular disease (CMS/[facility]) Type 2 diabetes mellitus with diabetic polyneuropathy, with long-term current use of insulin (CMS/HCC)- Primary Mixed hyperlipidemia (CMS/HCC) Mixed hyperlipidemia Agitation states as acute reaction to exceptional (gross) stress Predominant psychomotor disturbance as reaction to stress Essential hypertension (CMS/HCC) Unspecified essential hypertension Other insomnia Hypertensive emergency ([facility]) Other insomnia documented in this encounter [facility] HealthcareEvaluation note* Diagnosis Acute bilateral low back pain with sciatica, sciatica laterality unspecified- Primary Type 2 diabetes mellitus with diabetic polyneuropathy, with long-term current use of insulin (CMS/[facility]) Lumbar spondylosis Lumbosacral spondylosis without myelopathy Lumbar adjacent segment disease with spondylolisthesis- Primary Acute bilateral low back pain with bilateral sciatica Type 2 diabetes mellitus with diabetic polyneuropathy, with long-term current use of insulin (CMS/[facility]) Bilateral carotid artery stenosis Occlusion and stenosis of carotid artery without mention of cerebral infarction Claustrophobia ([facility]) Other isolated or specific phobias Type 2 diabetes mellitus with diabetic peripheral angiopathy without gangrene, without long-term current use of insulin ([facility]) Hypervitaminosis B6- Primary Other hyperalimentation Acute bilateral low back pain with bilateral sciatica Lumbar adjacent segment disease with spondylolisthesis Lumbar spondylosis Lumbosacral spondylosis without myelopathy Stenosis of carotid artery, unspecified laterality Lumbar paraspinal muscle spasm Other symptoms referable to back Carpal tunnel syndrome, bilateral Carpal tunnel syndrome Migraine without aura and without status migrainosus, not intractable ([facility]) OLIVA (obstructive sleep apnea) Obstructive sleep apnea (adult) (pediatric) Routine general medical examination at health care facility- Primary Routine general medical examination at a health care facility Type 2 diabetes mellitus with diabetic peripheral angiopathy without gangrene, without long-term current use of insulin ([facility]) Peripheral vascular disease, unspecified ([facility]) Peripheral vascular disease, unspecified Heart failure, unspecified ([facility]) Heart failure, unspecified Epilepsy, unspecified, not intractable, without status epilepticus Other secondary pulmonary hypertension Atherosclerosis of aorta ([facility]) Atherosclerosis of aorta Medicare annual wellness visit, subsequent Diabetes mellitus with peripheral vascular disease ([facility]) Type 2 diabetes mellitus with diabetic polyneuropathy, with long-term current use of insulin ([facility])- Primary Mixed hyperlipidemia ([facility]) Mixed hyperlipidemia Agitation states as acute reaction to exceptional (gross) stress Predominant psychomotor disturbance as reaction to stress Essential hypertension (CMS/HCC) Unspecified essential hypertension Other insomnia Hypertensive emergency ([facility]) Diabetes mellitus with peripheral vascular disease ([facility])- Primary Epilepsy, unspecified, not intractable, without status epilepticus Other secondary pulmonary hypertension Heart failure, unspecified (CMS/HCC) Heart failure, unspecified Benign hypertension (CMS/HCC) Essential hypertension, benign Grade II diastolic dysfunction Type 2 diabetes mellitus with diabetic polyneuropathy, with long-term current use of insulin (CMS/HCC) Bilateral carotid bruits documented in this encounter [facility] HealthcareEvaluation note* Diagnosis Acute bilateral low [...] bruits Other insomnia documented in this encounter [facility] HealthcareEvaluation note* Diagnosis Acute bilateral low [...] Unspecified essential hypertension documented in this encounter [facility] HealthcareEvaluation note* Diagnosis Acute bilateral low [...] bruits Other insomnia documented in this encounter [facility] HealthcareEvaluation note* Diagnosis Acute bilateral low [...] bruits Other insomnia documented in this encounter [facility] HealthcareEvaluation note* Diagnosis Acute bilateral low [...] use of insulin (HCC)- Primary Mixed hyperlipidemia Agitation states as acute reaction [...] use of insulin (HCC) Bilateral carotid bruits Type 2 diabetes mellitus with diabetic polyneuropathy, with long-term current use of insulin (HCC) documented in this encounter [facility] general [...] History pgeisert Hospitalization History ACUTE DELIRIUM; 10/02/20 Yunzhisheng Other Progress note Author Taylor Tijerina [facility] November 02, 2022 10:02am Note Date/Time November 02, 2022 10:0 1am [facility] [place] [address] Hem/Onc Follow Up Note - OP Signed Patient: Nuvia Martin MR#: [id number] : 1945 Acct:[id number] Age/Sex: 77 / F Type: REG RCR [...] IV x 2 doses: 01/28/2022 and 02/04/2022 PENDING SALE TO [facility] - Medical History Medical History: [...] (Verified 11/02/22 09:45) Diarrhea bacitracin [From Neosporin (qju-abo-auuoy)] Adverse Reaction (Verified 11/02/22 09:45) Blister contact metal agent Adverse Reaction (Verified 11/02/22 09:45) Rash neomycin [From Neosporin (zvj-woe-fwrgd)] Adverse Reaction (Verified 11/02/22 09:45) Blister petrolatum,white [From Petroleum Jelly] Adverse Reaction (Verified 11/02/22 09:45) Blister polymyxin B [From Neosporin (rlq-sxs-nuhoi)] Adverse Reaction (Verified 11/02/2308:45) Blister Home Medications [...] PO QNOON 12/17/19 [History Confirmed 11/02/22] omega 3-lgb-qbw-fish oil 1,000 mg (120 mg-180 mg) capsule [...] % (Auto) 60.6, Lymph % (Auto) 26.9, [place] % (Auto) 9.5, Eos % (Auto) 1.7, Baso % (Auto) 1.3, Nucleat RBC Rel Count 0.2, Neut # (Auto) 3.8, Lymph # (Auto) 1.7, [place] # (Auto) 0.6, Eos # (Auto) 0.1, [...] for coordination of care (as documented) and ayqi-zl-tsrd counseling of patient and/or family. Dictated By: Taylor Tijerina APRN DD/ 1000 Signed By: <Electronically signed by CARMELA Tijerina> 11/02/22 1002 [facility] Work Phone: Progress note Author Taylor Tijerina [facility] February 01, 2023 11:23am Note Date/Time February 01, 2023 11:04am [facility] [place] [address] Hem/Onc Follow Up Note - OP Signed Patient: Nuvia Martin MR#: [id number] : 1945 Acct:[id number] Age/Sex: 77 / F Type: REG RCR [...] for coordination of care (as documented) and wfln-yx-gosq counseling of patient and/or family. PENDING SALE TO [facility] - Medical History Medical History: [...] % (Auto) 61.7, Lymph % (Auto) 26.2, [place] % (Auto) 9.2, Eos % (Auto) 2.0, Baso % (Auto) 0.9, Nucleat RBC Rel Count 0.1, Neut # (Auto) 4.2, Lymph # (Auto) 1.8, [place] # (Auto) 0.6, Eos # (Auto) 0.1, Baso # (Auto) 0.1 - Home Medications and Allergies Allergies/Adverse Reactions: Allergies cimetidine [From Tagamet] Allergy (Verified 02/01/23 10:56) Diarrhea bacitracin [From Neosporin (ysy-xka-dxqmz)] Adverse Reaction (Verified 02/01/23 10:56) Blister contact metal agent Adverse Reaction (Verified 02/01/23 10:56) Rash neomycin [From Neosporin (nzi-ktn-qtgrv)] Adverse Reaction (Verified 02/01/23 10:56) Blister petrolatum,white [From Petroleum Jelly] Adverse Reaction (Verified 02/01/23 10:56) Blister polymyxin B [From Neosporin (lon-iwf-ewiks)] Adverse Reaction (Verified 02/01/2310:56) Blister Home Medications: [...] PO QNOON 12/17/19 [History Confirmed 02/01/23] omega 1-fcs-ama-fish oil 1,000 mg (120 mg-180 mg) capsule [...] <Electronically signed by CARMELA Tijerina> 02/01/[address] [facility] Work Phone: Reason for referral (narrative)* Consultation (Routine) - Pending Review Specialty Diagnoses / Procedures Referred By David t Referred To Contact Pain Medicine Diagnoses Lumbar spondylosis 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 claudication Procedures [place] OFFICE/OUTPATIENT NEW HIGH MDM 60 MINUTES Wily Prado MD [address] [address] Danitza Murray MD [address] [place] [address] Referral ID Status Reason Start Date Expiration Date Visits Requested Visits Authorized [id number] Pending Review Specialty Services Required 01/17/2024 07/15/2024 [...] section and content) DATE CREATED AUTHOR 10/04/2021 [facility] dical Specialist DATE CREATED AUTHOR AUTHOR'S ORGANIZ ATION 01/25/2022 [facility] DATE CREATED AUTHOR AUTHOR'S ORGANIZ ATION 02/23/2022 [facility] DATE CREATED AUTHOR AUTHOR'S ORGANIZ ATION 03/09/2024 [facility] DATE CREATED AUTHOR AUTHOR'S ORGANIZ ATION 05/13/2024 [facility] DATE CREATED AUTHOR AUTHOR'S ORGANIZ ATION 10/23/2024 [facility] dical Specialists EPIC DATE CREATED AUTHOR AUTHOR'S ORGANIZ ATION 01/30/2025 [facility] REASON FOR VISIT (unrecogniz ed section and content) Reason Comments Fall Reason Onset Date Comments Med Refill 06/16/2023 [facility] [place] Specialty Diagnoses / Procedures Referred By Contac t Referred To Contact Physical Therapy Diagnoses Acute bilateral low back pain with sciatica, sciatica laterality unspecified Lumbar spondylosis Procedures [place] OFFICE/OUTPATIENT NEW HIGH MDM 60 MINUTES Wily Prado MD 112 [facility] [address] [place] [address] Som Sheffield, PT 112 [facility] [address] [place] [address] Referral ID Status Reason Start Date Expiration Date Visits Requested Visits Authorized [id number] Authorized Specialty Services Required 3 11/06/2023 10 [...] [address] [facility] [address] [place] [address] Jalyn Guan PT Referral ID Status Reason Start Date Expiration Date Visits Requested Visits Authorized [id number] Authorized Consult and Treat 12/20/2023 06/17/2024 15 [...] Active Jesse Tran MD Attending Provider Active Magnetic Testing Technician Relationship Specialty Start Date End Date Wily Prado MD [address] [facility] [address] [place] [address] PCP - ACO Reach 10/07/22 Wily Prado MD [address] [facility] [address] [place] [address] PCP - General Family Medicine 10/28/22 Magnetic Testing Technician Relationship Specialty Start Date End Date Wily Prado MD [address] [facility] [address] [place] [address] PCP - ACO Reach 10/07/22 Wily Prado MD [address] [facility] [address] [place] [address] PCP - General Family Medicine 10/28/22 Magnetic Testing Technician Relationship Specialty Start Date End Date Wily Prado MD [address] [facility] [address] [place] [address] PCP - ACO Reach 10/07/22 Wily Prado MD [address] [facility] [address] [place] [address] PCP - General Family Medicine 10/28/22 Magnetic Testing Technician Relationship Specialty Start Date End Date Wily Prado MD [address] [facility] [address] [place] [address] PCP - ACO Reach 10/07/22 Wily Prado MD [address] [facility] [address] [place] [address] PCP - General Family Medicine 10/28/22 Magnetic Testing Technician Relationship Specialty Start Date End Date Wily Prado MD [address] [facility] [address] [place] [address] PCP - ACO Reach 10/07/22 Wily Prado MD [address] [facility] [address] [place] [address] PCP - General Family Medicine 10/28/22 Magnetic Testing Technician Relationship Specialty Start Date End Date Wily Prado MD [address] [facility] [address] [place] [address] PCP - ACO Reach 10/07/22 Wily Prado MD [address] [facility] [address] [place] [address] PCP - General Family Medicine 10/28/22 Magnetic Testing Technician Relationship Specialty Start Date End Date Wily Prado MD [address] [facility] [address] [place] [address] PCP - ACO Reach 10/07/22 Wily Prado MD [address] [facility] [address] [place] [address] PCP - General Family Medicine 10/28/22 Magnetic Testing Technician Relationship Specialty Start Date End Date Wily Prado MD [address] [facility] [address] [place] [address] PCP - ACO Reach 10/07/22 Wily Prado MD [address] [facility] [address] [place] [address] PCP - General Family Medicine 10/28/22 Magnetic Testing Technician Relationship Specialty Start Date End Date Wily Prado MD [address] [facility] [address] [place] [address] PCP - ACO Reach 10/07/22 Wily Prado MD [address] [facility] [address] [place] [address] PCP - General Family Medicine 10/28/22 Magnetic Testing Technician Relationship Specialty Start Date End Date Wily Prado MD [address] [facility] [address] [place] [address] PCP - ACO Reach 10/07/22 Wily Prado MD [address] [facility] [address] [place] [address] PCP - General Family Medicine 10/28/22 Magnetic Testing Technician Relationship Specialty Start Date End Date Wily Prado MD [address] [facility] [address] [place] [address] PCP - ACO Reach 10/07/22 Wily Prado MD [address] [facility] [address] [place] [address] PCP - General Family Medicine 10/28/22 Magnetic Testing Technician Relationship Specialty Start Date End Date Wily Prado MD [address] [facility] [address] [place] [address] PCP - ACO Reach 10/07/22 Wily Prado MD [address] [facility] [address] [place] [address] PCP - General Family Medicine 10/28/22 Magnetic Testing Technician Relationship Specialty Start Date End Date Wily Prado MD [address] [facility] [address] [place] [address] PCP - ACO Reach 10/07/22 Wily Prado MD [address] [facility] [address] [place] [address] PCP - General Family Medicine 10/28/22 Magnetic Testing Technician Relationship Specialty Start Date End Date Wily Prado MD [address] [facility] [address] [place] [address] PCP - ACO Reach 10/07/22 Wily Prado MD [address] [facility] [address] [place] [address] PCP - General Family Medicine 10/28/22 Magnetic Testing Technician Relationship Specialty Start Date End Date Wily Prado MD [address] [facility] [address] [place] [address] PCP - ACO Reach 10/07/22 Wily Prado MD [address] [facility] [address] [place] [address] PCP - General Family Medicine 10/28/22 Magnetic Testing Technician Relationship Specialty Start Date End Date Wily Prado MD [address] [facility] [address] [place] [address] PCP - ACO Reach 10/07/22 Wily Prado MD [address] [facility] [address] [place] [address] PCP - General Family Medicine 10/28/22 Magnetic Testing Technician Relationship Specialty Start Date End Date Wily Prado MD [address] [facility] [address] [place] [address] PCP - ACO Reach 10/07/22 Wily Prado MD [address] [facility] [address] [place] [address] PCP - General Family Medicine 10/28/22 Magnetic Testing Technician Relationship Specialty Start Date End Date Wily Prado MD [address] [facility] [address] [place] [address] PCP - ACO Reach 10/07/22 Wily Prado MD [address] [facility] [address] [place] [address] PCP - General Family Medicine 10/28/22 Magnetic Testing Technician Relationship Specialty Start Date End Date Wily Prado MD [address] [facility] [address] [place] [address] PCP - ACO Reach 10/07/22 Wily Prado MD [address] [facility] [address] [place] [address] PCP - General Family Medicine 10/28/22 Magnetic Testing Technician Relationship Specialty Start Date End Date Wily Prado MD [address] [facility] [address] [place] [address] PCP - ACO Reach 10/07/22 Wily Prado MD [address] [facility] [address] [place] [address] PCP - General Family Medicine 10/28/22 Magnetic Testing Technician Relationship Specialty Start Date End Date Wily Prado MD [address] [facility] [address] [place] [address] PCP - ACO Reach 10/07/22 Wily Prado MD [address] [facility] [address] [place] [address] PCP - General Family Medicine 10/28/22 Magnetic Testing Technician Relationship Specialty Start Date End Date Wily Prado MD [address] [facility] [address] [place] [address] PCP - ACO Reach 10/07/22 Wily Prado MD [address] [facility] [address] [place] [address] PCP - General Family Medicine 10/28/22 Magnetic Testing Technician Relationship Specialty Start Date End Date Wily Prado MD [address] [facility] [address] [place] [address] PCP - ACO Reach 10/07/22 Wily Prado MD [address] [facility] [address] [place] [address] PCP - General Family Medicine 10/28/22 Goals [...] BE BASED ON THE PRIMARY CLINICAL RECORDS. [employer] [facility]. provides no warranty or guarantee of the accuracy or completeness of information in this document.
--- NOTE | 2025-02-21 15:14 | PM.WCHP ---
Wound Care H&P: HPI History of Present Illness Narrative: The pain is a pleasant 79-year-old female with history of well-controlled type 2 diabetes, last hemoglobin A1c was 4.8, who presents for routine toenail care. She states her long toenails are painful. she has no other complaints. [facility] Medical History (Updated 02/21/25 @ 15:16 by LUMA Nazario) Low back pain ?M54.50 - Low back pain, unspecified (ICD-10) Smoker ?F17.200 - Nicotine dependence, unspecified, uncomplicated (ICD-10) PVD (peripheral vascular disease) ?I73.9 - Peripheral vascular disease, unspecified (ICD-10) Type 2 diabetes mellitus with hyperglycemia ?E11.65 - Type 2 diabetes mellitus with hyperglycemia (ICD-10) Lumbar degenerative disc disease ?M51.36 - Other intervertebral disc degeneration, lumbar region (ICD-10) Hypertension ?I10 - Essential (primary) hypertension (ICD-10) Medication side effect ?T88.7XXA - Unspecified adverse effect of drug or medicament, initial encounter (ICD-10) Chronic back pain ?M54.9 - Dorsalgia, unspecified (ICD-10) ?G89.29 - Other chronic pain (ICD-10) Diabetes ?E11.9 - Type 2 diabetes mellitus without complications (ICD-10) Choking ?T17.308A - Unspecified foreign body in larynx causing other injury, initial encounter (ICD-10) GERD (gastroesophageal reflux disease) ?K21.9 - Gastro-esophageal reflux disease without esophagitis (ICD-10) Surgical History (Updated 12/07/24 @ 09:04 by Grace Abbott) H/O heart artery stent ?Z95.5 - Presence of coronary angioplasty implant and graft (ICD-10) H/O: hysterectomy ?Z90.710 - Acquired absence of both cervix and uterus (ICD-10) History of cholecystectomy ?Z90.49 - Acquired absence of other specified parts of digestive tract (ICD-10) Social History Smoking status: Current every day smoker Meds Home Medications and Allergies Home Medications ?Medication ?Instructions ?Recorded ?Confirmed ?Type Lantus Solostar U-100 Insulin 05/15/23 History Ventolin HFA 05/15/23 History atorvastatin 20 mg tablet 20 mg PO DAILY 05/15/23 01/28/25 History clopidogrel 75 mg tablet 75 mg PO DAILY 05/15/23 01/28/25 History fenofibrate nanocrystallized 145 145 mg PO .qd 05/15/23 01/28/25 History mg tablet gabapentin 600 mg tablet 600 mg PO Q8H 05/15/23 01/28/25 History hydrochlorothiazide 25 mg tablet 25 mg PO DAILY 05/15/23 01/28/25 History ipratropium 0.5 mg-albuterol 3 mg 3 ml inhalation Q6H 05/15/23 01/28/25 History (2.5 mg base)/3 mL nebulization soln lisinopril 40 mg tablet 40 mg PO DAILY 05/15/23 01/28/25 History metoprolol tartrate 25 mg tablet 25 mg PO TID 05/15/23 01/28/25 History omeprazole 20 mg capsule,delayed 20 mg PO .qd 05/15/23 01/28/25 History release oxcarbazepine 300 mg tablet 300 mg PO BID 05/15/23 01/28/25 History sitagliptin phosphate 50 2 tab PO DAILY 05/15/23 01/28/25 History mg-metformin 500 mg tablet (Janumet) tiotropium 2.5 mcg-olodaterol 2.5 2 puff inhalation Q24H 05/15/23 01/28/25 History mcg/actuation mist for inhalation (Stiolto Respimat) torsemide 10 mg tablet 10 mg PO DAILY 05/15/23 01/28/25 History alprazolam 0.5 mg tablet 0.5 mg PO DAILY 11/20/24 01/28/25 History amlodipine 10 mg tablet 10 mg PO DAILY 11/20/24 01/28/25 History naproxen 500 mg tablet 500 mg PO Q12H 11/20/24 01/28/25 History acetaminophen 650 mg 1,300 mg PO Q12H PRN pain 01/07/25 01/28/25 History tablet,extended release (Pain Relief (acetaminophen)) famotidine 20 mg tablet (Pepcid) 20 mg PO DAILY 01/07/25 01/28/25 History guaifenesin 600 mg tablet, 600 mg PO BID PRN cough 01/07/25 01/28/25 History extended release 12 hr (Mucinex) Allergies Allergy/AdvReac Type Severity Reaction Status Date / Time nickel Allergy Mild Rash Verified 01/28/25 11:48 petrolatum,white (From AdvReac Severe Blister Verified 01/28/25 11:48 Petroleum Jelly) tagemet AdvReac Severe Diarrhea Uncoded 01/28/25 11:48 Exam Narrative: Exam Narrative: Derm: Toenails 1 through 10 are thickened, elongated, mycotic, and incurvated.? No evidence of paronychia. Skin is diffusely dry, thin, and atrophic.? Hemosiderin staining present on the lower legs bilaterally. Vascular: DP and PT pulses are nonpalpable bilaterally.? Capillary refill is less than 3 seconds to all toes. Digital hair is absent bilaterally. 2+ pitting edema noted to both ankles. Neuro: Vibratory sensation is absent bilaterally.? Achilles deep tendon reflex is absent bilaterally.? Protective sensation was tested with a monofilament and is present in 1/5 areas tested on the right and 0/5 areas tested on the left.? Musculoskeletal: No gross deformity.? Mild bruising noted on the left second toe which is rectus. Strength 5/5 in all planes bilaterally Assessment and Plan Assessment and Plan (1) Tinea unguium: (2) Type 2 diabetes mellitus with diabetic neuropathy, unspecified: (3) Diminished pulses in lower extremity: (4) Pain around toenail: Plan The patient presents for evaluation of trauma to the left second toenail. The toenail was noted to be partially from the nailbed. The nail was debrided, anesthesia was not necessary. No nailbed laceration was identified. The remainder of her toenails were sharply debrided with nail nippers without incident. She may follow-up in 3 months or at her discretion. Acute Procedures Podiatry Nail Debridement Class B Findings Absent posterior tibial pulse: bilateral Advanced trophic changes as evidenced by any three of the following: decreased hair growth, nail changes (thickening), pigmentary changes (discoloring), skin texture (thin or shiny) and skin color (rubor or redness) Absent dorsalis pedis pulse: bilateral Class C Findings Claudication: No Temperature changes: No Edema: Yes Nail debridement paresthesia (abnormal spontaneous sensations in the feet): Yes Burning: Yes Qualifies If: Qualifiers If:: A patient qualifies for nail debridement if they have: 1 class A finding (Q7) 2 class B findings (Q8) OR 1 class B & 2 class C findings in addition to a primary condition (Q9) Nail Procedure Nail Procedure Time out: Yes Nail procedure: other (Toenail debridement nails 1 through 10) Number of affected nails: 10 Location (toes): left and right Procedure successful: Yes Patient tolerated procedure: well and no complications Additional comments: Toenails 1-10 were sharply debrided with nail nippers without incident.
== END 2025-02-21 14:36 | disposition home or self-care (01) ==
LOC: WC 14:35
PROVIDERS: PCP Family Medicine; Visit Provider Physician Assistant
DX: B35.1 Tinea unguium (principal); E11.40 Type 2 diabetes mellitus with diabetic neuropathy, unspecified; R09.89 Other specified symptoms and signs involving the circulatory and respiratory systems; M79.676 Pain in unspecified toe(s)
CPT/HCPCS: 11721

== ENCOUNTER 2025-02-28 09:06 | Outpatient (OUT) | payer MEDICARE, SELFPAY ==
--- OUTSIDE RECORDS SUMMARY | 2025-02-28 09:09 | XMS_ITS | Encounter Summary ---
Author Organization [facility] Address [address] [place] [address] Care Team Providers Care Land Conservation Specialist Name Role Phone Nohemy Guajardo MD Unavailable Nohemy Guajardo MD Primary Care Provider Madiha Busch RN Unavailable [phone] Encounter Details Date Type Department Care Team (Late Contact Info) Description 08/30/2023 Abstract [facility] [place] [address] [facility] 110 [place] [address] Nohemy Guajardo MD [address] [facility] 110 [place] [address] Social History Tobacco Use Types Packs/Day Years [...] [address] [place] [address] [place] [address] Nohemy Guajardo MD [address] [facility] 110 [place] [address] documented as of this encounter Visit Diagnoses Not on filedocumented in this encounter Additional Health Concerns Assessment Noted Time PHQ-9 Depression Total Score: 5 12/28/19 23 8:00 AM EDT documented as of this encounter Care Teams Land Conservation Specialist Relationship Specialty Start Date End Date Nohemy Guajardo MD [address] [facility] 110 [place] [address] PCP - ACO Reach 10/07/22 Nohemy Guajardo MD [address] [facility] 110 [place] [address] PCP - General Family Medicine 10/28/22 Madiha Busch, ONIEL [address] [place] [address] Registered Nurse Family Medicine 01/29/25 01/31/25 documented as of this encounter
--- OUTSIDE RECORDS SUMMARY | 2025-02-28 09:09 | XMS_ITS | Encounter Summary ---
Author Organization [facility] Address [address] [place] [address] Care Team Providers Care Packing Machine Can Feeder Name Role Phone Nohemy Guajardo MD Unavailable Nohemy Guajardo MD Primary Care Provider Madiha Busch RN Unavailable Encounter Details Date Type Department Care Team (Late Contact Info) Description 05/17/2023 Abstract [facility] [place] [address] [facility] 110 [place] [address] Nohemy Guajardo MD [address] [facility] 110 [place] [address] Social History Tobacco Use Types Packs/Day Years [...] [address] [place] [address] [place] [address] Nohemy Guajardo MD [address] [facility] 110 [place] [address] documented as of this encounter Visit Diagnoses Not on filedocumented in this encounter Additional Health Concerns Assessment Noted Time PHQ-9 Depression Total Score: 5 12/28/19 23 8:00 AM EDT documented as of this encounter Care Teams Packing Machine Can Feeder Relationship Specialty Start Date End Date Nohemy Guajardo MD [address] [facility] 110 [place] [address] PCP - ACO Reach 10/07/22 Nohemy Guajardo MD [address] [facility] 110 [place] [address] PCP - General Family Medicine 10/28/22 Madiha Busch, ONIEL [address] [place] [address] Registered Nurse Family Medicine 01/29/25 01/31/25 documented as of this encounter
--- OUTSIDE RECORDS SUMMARY | 2025-02-28 09:09 | XMS_ITS | Encounter Summary ---
Author Organization [facility] Address [address] [place] [address] Care Team Providers Care Emergency Dispatch Operator Name Role Phone Nohemy Guajardo MD Unavailable Nohemy Guajardo MD Primary Care Provider [phone] Madiha Busch RN Unavailable Encounter Details Date Type Department Care Team (Late Contact Info) Description 05/17/2023 Abstract [facility] [place] [address] [facility] 110 [place] [address] Nohemy Guajardo MD [address] [facility] 110 [place] [address] Social History Tobacco Use Types Packs/Day Years [...] [address] [place] [address] [place] [address] Nohemy Guajardo MD [address] [facility] 110 [place] [address] documented as of this encounter Visit Diagnoses Not on filedocumented in this encounter Additional Health Concerns Assessment Noted Time PHQ-9 Depression Total Score: 5 12/28/19 23 8:00 AM EDT documented as of this encounter Care Teams Emergency Dispatch Operator Relationship Specialty Start Date End Date Nohemy Guajardo MD [address] [facility] 110 [place] [address] PCP - ACO Reach 10/07/22 Nohemy Guajardo MD [address] [facility] 110 [place] [address] PCP - General Family Medicine 10/28/22 Madiha Busch, ONIEL [address] [place] [address] Registered Nurse Family Medicine 01/29/25 01/31/25 documented as of this encounter
--- OUTSIDE RECORDS SUMMARY | 2025-02-28 09:09 | XMS_ITS | Encounter Summary ---
Author Organization [facility] Address [address] [place] [address] Care Team Providers Care Photostat Operator Helper Name Role Phone Nohemy Guajardo MD Unavailable Nohemy Guajardo MD Primary Care Provider Madiha Busch RN Unavailable Encounter Details Date Type Department Care Team (Late Contact Info) Description 02/01/2023 Abstract [facility] [place] [address] [facility] 110 [place] [address] Nohemy Guajardo MD [address] [facility] 110 [place] [address] Social History Tobacco Use Types Packs/Day Years [...] Upcoming Encounters Date Type Department Care Team ([facility] Contact Info) Description 04/02/2025 1:00 PM EST Office Visit [facility] [place] [facility] [address] [place] [address] [place] [address] Nohemy Guajardo MD [address] [facility] 110 [place] [address] documented as of this encounter Visit Diagnoses Not on filedocumented in this encounter Additional Health Concerns Assessment Noted Time PHQ-9 Depression Total Score: 5 12/28/19 23 8:00 AM EDT documented as of this encounter Care Teams Photostat Operator Helper Relationship Specialty Start Date End Date Nohemy Guajardo MD [address] [facility] 110 [place] [address] PCP - ACO Reach 10/07/22 Nohemy Guajardo MD [address] [facility] 110 [place] [address] PCP - General Family Medicine 10/28/22 Madiha Busch, ONIEL [address] [place] [address] Registered Nurse Family Medicine 01/29/25 01/31/25 documented as of this encounter
--- OUTSIDE RECORDS SUMMARY | 2025-02-28 09:09 | XMS_ITS | Encounter Summary ---
Author Organization [facility] Address [address] [place] [address] Care Team Providers Care Field Service Engineer Name Role Phone Nohemy Guajardo MD Unavailable Nohemy Guajardo MD Primary Care Provider [phone] Madiha Busch RN Unavailable Encounter Details Date Type Department Care Team (Late Contact Info) Description 12/31/2022 Abstract [facility] [place] [address] [facility] 110 [place] [address] Nohemy Guajardo MD [address] [email or web address] 110 [place] [address] Social History Tobacco Use Types Packs/Day Years [...] Type Department Care Team ([facility] Contact Info) Description 04/02/2025 1:00 PM EST Office Visit [facility] [place] [facility] [address] [place] [address] [place] [address] Nohemy Guajardo MD [address] [email or web address] 110 [place] [address] documented as of this encounter Visit Diagnoses Not on filedocumented in this encounter Additional Health Concerns Assessment Noted Time PHQ-9 Depression Total Score: 5 12/28/19 23 8:00 AM EDT documented as of this encounter Care Teams Field Service Engineer Relationship Specialty Start Date End Date Nohemy Guajardo MD [address] [facility] 110 [place] [address] PCP - ACO Reach 10/07/22 Nohemy Guajardo MD [address] [facility] 110 [place] [address] PCP - General Family Medicine 10/28/22 Madiha Busch, ONIEL [address] [place] [address] Registered Nurse Family Medicine 01/29/25 01/31/25 documented as of this encounter
--- OUTSIDE RECORDS SUMMARY | 2025-02-28 09:09 | XMS_ITS | Encounter Summary ---
Author Organization [facility] Address [address] [place] [address] Care Team Providers Care Upper Leather Sorter Name Role Phone Nohemy Guajardo MD Unavailable Nohemy Guajardo MD Primary Care Provider [phone] Madiha Busch RN Unavailable Encounter Details Date Type Department Care Team (Late Contact Info) Description 01/06/2023 Orders Only [facility] [place] [address] [place] [address] [place] [address] A, Unknown Practice [address] [place] [address] Social History Tobacco Use Types Packs/Day [...] PM EST Office Visit [facility] [place] [facility] [address] [place] [address] [place] [address] Nohemy Guajardo MD [address] [place] [address] documented as of this encounter Procedures Procedure [...] documented as of this encounter Care Teams Upper Leather Sorter Relationship Specialty Start Date End Date Nohemy Guajardo MD [address] [place] [address] PCP - ACO Reach 10/07/22 Nohemy Guajardo MD [address] [address] PCP - General Family Medicine 10/28/22 Madiha Busch, RN [address] [place] [address] Registered Nurse Family Medicine 01/29/25 01/31/25 documented as of this encounter
--- OUTSIDE RECORDS SUMMARY | 2025-02-28 09:09 | XMS_ITS | Encounter Summary ---
Author Organization [facility] Address [address] [place] [address] Care Team Providers Care Bookmobile Librarian Name Role Phone Nohemy Guajardo MD Unavailable Nohemy Guajardo MD Primary Care Provider [phone] Reason for Visit * Reason Onset Date Comments Med Refill 02/12/2025 Encounter Details Date Type Department Care Team (Late Contact Info) Description 02/12/2025 Refill [facility] [place] [facility] 110 [place] [address] Nohemy Guajardo MD [address] [facility] 110 [place] [address] Other insomnia Social History Tobacco Use Types [...] Type Department Care Team ([facility] Contact Info) Description 04/02/2025 1:00 PM EST Office Visit [facility] [place] [facility] [address] [facility] 110 [place] [address] Nohemy Guajardo MD [address] [facility] 110 [place] [address] documented as of this encounter Visit Diagnoses Diagnosis Other insomnia documented in this encounter Additional Health Concerns Assessment Noted Time PHQ-9 Depression Total Score: 4 12/26/19 24 10:00 AM EDT documented as of this encounter Care Teams Bookmobile Librarian Relationship Specialty Start Date End Date Nohemy Guajardo MD [address] [facility] 110 [place] [address] PCP - ACO Reach 10/07/22 Nohemy Guajardo MD [address] [facility] 110 [place] [address] PCP - General Family Medicine 10/28/22 documented as of this encounter
--- OUTSIDE RECORDS SUMMARY | 2025-02-28 09:09 | XMS_ITS | Encounter Summary ---
Author Organization [facility] Address [address] [place] [address] Care Team Providers Care Trust Operations Assistant Name Role Phone Nohemy Guajardo MD Unavailable Nohemy Guajardo MD Primary Care Provider [phone] Reason for Visit * Reason Comments Med Refill Encounter Details Date Type Department Care Team (Late Contact Info) Description 02/18/2025 Refill [facility] [place] [facility] 112 [facility] 110 [place] [address] Nohemy Guajardo MD 112 [facility] 110 [place] [address] Essential hypertension Social History Tobacco Use Types [...] PM EST Office Visit [facility] [place] [facility] 112 [facility] 110 [place] [address] Nohemy Guajardo MD 112 [facility] 110 [place] [address] documented as of this encounter Visit Diagnoses Diagnosis Essential hypertension Unspecified essential hypertension documented in this encounter Additional Health Concerns Assessment Noted Time PHQ-9 Depression Total Score: 4 12/26/19 24 10:00 AM EDT documented as of this encounter Care Teams Trust Operations Assistant Relationship Specialty Start Date End Date Nohemy Guajardo MD 112 [facility] 110 [place] [address] PCP - ACO Reach 10/07/22 Nohemy Guajardo MD 112 [facility] [address] [place] [address] PCP - General Family Medicine 10/28/22 documented as of this encounter
--- OUTSIDE RECORDS SUMMARY | 2025-02-28 09:09 | XMS_ITS | Encounter Summary ---
Author Organization [facility] Address [address] [place] [address] Care Team Providers Care Debrander Name Role Phone Nohemy Guajardo MD Unavailable Nohemy Guajardo MD Primary Care Provider [phone] Madiha Busch RN Unavailable [phone] Encounter Details Date Type Department Care Team (Late Contact Info) Description 09/16/2023 External Result Encounter [facility] External Department Unsolicited Nohemy Guajardo MD [address] [facility] 110 [place] [address] Social History Tobacco Use Types [...] Upcoming Encounters Date Type Department Care Team ([facility] Contact Info) Description 04/02/2025 1:00 PM EST Office Visit [facility] [place] [address] [facility] 110 [place] [address] Nohemy Guajardo MD 112 [facility] 110 [place] [address] documented as of this encounter Procedures Procedure [...] Latonya Riggs M.D.09/16/2023 10:57 AM Dictation Location: [facility]12 Transcribed By: [facility] 09/16/23 1057 Dictated By: Latonya Riggs MD 09/16/23 1046 Signed By: <Electronically signed by MD Latonya Riggs in OV> 09/16/23 1057 Narrative 09/16/2023 10:59 AM EDT [facility] [place] [address] [place] [address] XRay Report Signed Patient: Lovely Martin MR#: [id number] : 1945 Acct:[id number] Age/Sex: 78 / F ADM Date: 09/16/23 Loc: Room: Type: [facility] Attending Dr: Nohemy Guajardo MD Copies to: Nohemy Guajardo MD Ordering Provider: Nohemy Guajardo MD Date of Service: 09/16/23 MR/MR lumbar spine wo con: M51.36, M43.16 M54.42, M54.41 ([id number]) XR/XR pre/post mri xray: M54.42, M54.41, M51.36, [...] xray Procedure Note Radiology, Radiologist, - 09/16/2023 [facility] [place] [address] [place] [address] XRay Report Signed Patient: Lovely Martin AMR#: [id number] : 8Acct:[id number] Age/Sex: 78 / FADM Date: 09/16/23 Loc: Room:Type: [facility] Attending Dr: Nohemy Guajardo MD Copies to: Nohemy Guajardo MD Ordering Provider: Nohemy Guajardo MD Date of Service: 09/16/23 MR/MR lumbar spine wo con: M51.36, M43.16M54.42, M54.41 ([id number]) XR/XR pre/post mri xray: M54.42, M54.41, M51.36, [...] Latonya Riggs M.D.09/16/2023 10:57 AM Dictation Location: [place] [address] Transcribed By: [facility] 09/16/23 1057 Dictated By: Latonya Riggs [...] documented as of this encounter Care Teams Debrander Relationship Specialty Start Date End Date Nohemy Guajardo MD [address] [place] [address] PCP - ACO Reach 10/07/22 Nohemy Guajardo MD 112 [facility] 110 [place] [address] PCP - General Family Medicine 10/28/22 Madiha Busch, RN [address] [place] [address] Registered Nurse Family Medicine 01/29/25 01/31/25 documented as of this encounter
--- OUTSIDE RECORDS SUMMARY | 2025-02-28 09:09 | XMS_ITS | Encounter Summary ---
Author Organization [facility] Address [address] [place] [address] Care Team Providers Care Financial Aid Counselor Name Role Phone Nohemy Guajardo MD Unavailable Nohemy Guajardo MD Primary Care Provider [phone] Madiha Busch RN Unavailable Encounter Details Date Type Department Care Team (Late Contact Info) Description 01/05/2023 Orders Only [facility] [place] [address] [place] [address] [place] [address] A, Unknown Practice [address] [place] [address] Social History Tobacco Use Types Packs/Day [...] PM EST Office Visit [facility] [place] [facility] [address] [place] [address] [place] [address] Nohemy Guajardo MD [address] [place] [address] documented as of this encounter Procedures Procedure [...] documented as of this encounter Care Teams Financial Aid Counselor Relationship Specialty Start Date End Date Nohemy Guajardo MD [address] [place] [address] PCP - ACO Reach 10/07/22 Nohemy Guajardo MD [address] [address] PCP - General Family Medicine 10/28/22 Madiha Busch, RN [address] [place] [address] Registered Nurse Family Medicine 01/29/25 01/31/25 documented as of this encounter
--- OUTSIDE RECORDS SUMMARY | 2025-02-28 09:09 | XMS_ITS | Encounter Summary ---
Author Organization [facility] Address [address] [place] [address] Care Team Providers Care Violin Tutor Name Role Phone Nohemy Guajardo MD Unavailable Nohemy Guajardo MD Primary Care Provider Madiha Busch RN Unavailable Encounter Details Date Type Department Care Team (Late Contact Info) Description 01/05/2023 Abstract [facility] [place] [address] [facility] 110 [place] [address] Nohemy Guajardo MD [address] [facility] 110 [place] [address] Social History Tobacco Use Types Packs/Day Years [...] Upcoming Encounters Date Type Department Care Team ([facility] Contact Info) Description 04/02/2025 1:00 PM EST Office Visit [facility] [place] [facility] [address] [place] [address] [place] [address] Nohemy Guajardo MD [address] [facility] 110 [place] [address] documented as of this encounter Visit Diagnoses Not on filedocumented in this encounter Additional Health Concerns Assessment Noted Time PHQ-9 Depression Total Score: 5 12/28/19 23 8:00 AM EDT documented as of this encounter Care Teams Violin Tutor Relationship Specialty Start Date End Date Nohemy Guajardo MD [address] [facility] 110 [place] [address] PCP - ACO Reach 10/07/22 Nohemy Guajardo MD [address] [facility] 110 [place] [address] PCP - General Family Medicine 10/28/22 Madiha Busch, ONIEL [address] [place] [address] Registered Nurse Family Medicine 01/29/25 01/31/25 documented as of this encounter
--- OUTSIDE RECORDS SUMMARY | 2025-02-28 09:09 | XMS_ITS | Encounter Summary ---
Author Organization [facility] Address [address] [place] [address] Care Team Providers Care Labor Arbitrator Hearing Office Name Role Phone Nohemy Guajardo MD Unavailable Nohemy Guajardo MD Primary Care Provider [phone] Madiha Busch RN Unavailable Encounter Details Date Type Department Care Team (Late Contact Info) Description 05/17/2023 Orders Only [facility] [place] [facility] [address] [place] [address] [place] [address] A, Unknown Practice [address] [place] [address] Social History Tobacco Use Types Packs/Day [...] PM EST Office Visit [facility] [place] [facility] [address] [place] [address] [place] [address] Nohemy Guajardo MD [address] [place] [address] [address] documented as of this encounter Procedures Procedure [...] documented as of this encounter Care Teams Labor Arbitrator Hearing Office Relationship Specialty Start Date End Date Nohemy Guajardo MD [address] [place] [address] [place] [address] PCP - ACO Reach 10/07/22 Nohemy Guajardo MD [address] [place] [address] [address] PCP - General Family Medicine 10/28/22 Madiha Busch, RN [address] [place] [address] Registered Nurse Family Medicine 01/29/25 01/31/25 documented as of this encounter
--- OUTSIDE RECORDS SUMMARY | 2025-02-28 09:09 | XMS_ITS | Encounter Summary ---
Author Organization [facility] Address [address] [place] [address] Care Team Providers Care Post Production Assistant Name Role Phone Nohemy Guajardo MD Unavailable Nohemy Guajardo MD Primary Care Provider Madiha Busch RN Unavailable [phone] Encounter Details Date Type Department Care Team (Late Contact Info) Description 05/17/2023 Abstract [facility] [place] [facility] [address] [facility] 110 [place] [address] Nohemy Guajardo MD [address] [facility] 110 [place] [address] Social History Tobacco Use Types Packs/Day Years [...] [address] [place] [address] [place] [address] Nohemy Guajardo MD [address] [facility] 110 [place] [address] documented as of this encounter Visit Diagnoses Not on filedocumented in this encounter Additional Health Concerns Assessment Noted Time PHQ-9 Depression Total Score: 5 12/28/19 23 8:00 AM EDT documented as of this encounter Care Teams Post Production Assistant Relationship Specialty Start Date End Date Nhoemy Guajardo MD [address] [facility] 110 [place] [address] PCP - ACO Reach 10/07/22 Nohemy Guajardo MD [address] [facility] 110 [place] [address] PCP - General Family Medicine 10/28/22 Madiha Busch, ONIEL [address] [place] [address] Registered Nurse Family Medicine 01/29/25 01/31/25 documented as of this encounter
--- OUTSIDE RECORDS SUMMARY | 2025-02-28 09:09 | XMS_ITS | Clinical Summary ---
Author Organization [employer] Address [facility]-[id number] [address] [place] [address] Care Team Providers Care Physical Therapist Aide Name Role Phone Nohemy Guajardo MD Primary Care Provider [phone] Family History Medical History Relation Name Comments [...] 06/13/2009 Medical Devices Not on file Insurance [facility] MEDICARE Care Teams Physical Therapist Aide Relationship Specialty Start Date End Date Nohemy Guajardo MD [facility] [place] [address] PCP - General Family Medicine 11/15/19
--- OUTSIDE RECORDS SUMMARY | 2025-02-28 09:09 | XMS_ITS | Encounter Summary ---
Author Organization [facility] Address [address] [place] [address] Care Team Providers Care Heater Helper Forge Name Role Phone Nohemy Guajardo MD Unavailable Nohemy Guajardo MD Primary Care Provider Madiha Busch RN Unavailable Encounter Details Date Type Department Care Team (Late Contact Info) Description 07/03/2024 Abstract [facility] [place] [facility] [address] [facility] 110 [place] [address] Nohemy Guajardo MD [address] [facility] 110 [place] [address] Social History Tobacco Use Types Packs/Day Years [...] [address] [place] [address] [place] [address] Nohemy Guajardo MD [address] [facility] 110 [place] [address] documented as of this encounter Visit Diagnoses Not on filedocumented in this encounter Additional Health Concerns Assessment Noted Time PHQ-9 Depression Total Score: 4 12/26/19 24 10:00 AM EDT documented as of this encounter Care Teams Heater Helper Forge Relationship Specialty Start Date End Date Nohemy Guajardo MD [address] [facility] 110 [place] [address] PCP - ACO Reach 10/07/22 Nohemy Guajardo MD [address] [facility] 110 [place] [address] PCP - General Family Medicine 10/28/22 Madiha Busch, ONIEL [address] [place] [address] Registered Nurse Family Medicine 01/29/25 01/31/25 documented as of this encounter
--- OUTSIDE RECORDS SUMMARY | 2025-02-28 09:09 | XMS_ITS | Encounter Summary ---
Author Organization [facility] Address [address] [place] [address] Care Team Providers Care Farmworker Pullet Farm Name Role Phone Nohemy Guajardo MD Unavailable Nohemy Guajardo MD Primary Care Provider Reason for Visit * Reason Comments Med Refill Encounter Details Date Type Department Care Team (Late Contact Info) Description 02/25/2025 Refill [facility] [place] [facility] [place] [address] [facility] [address] [place] [address] Latonya Marie PA [address] [facility] 110 [place] [address] Essential hypertension Social History Tobacco Use Types [...] Upcoming Encounters Date Type Department Care Team ([facility] Contact Info) Description 04/02/2025 1:00 PM EST Office Visit [facility] [place] [facility] [address] [facility] 110 [place] [address] Nohemy Guajardo MD 112 [facility] [address] [place] [address] documented as of this encounter Visit Diagnoses Diagnosis Essential hypertension Unspecified essential hypertension documented in this encounter Additional Health Concerns Assessment Noted Time PHQ-9 Depression Total Score: 4 12/26/19 24 10:00 AM EDT documented as of this encounter Care Teams Farmworker Pullet Farm Relationship Specialty Start Date End Date Nohemy Guajardo MD 112 [facility] [address] [place] [address] PCP - ACO Reach 10/07/22 Nohemy Guajardo MD 112 [facility] [address] [place] [address] PCP - General Family Medicine 10/28/22 documented as of this encounter
--- OUTSIDE RECORDS SUMMARY | 2025-02-28 09:09 | XMS_ITS | Encounter Summary ---
Author Organization [facility] Address [address] [place] [address] Care Team Providers Care Onion Farmer Name Role Phone Nohemy Guajardo MD Unavailable Nohemy Guajardo MD Primary Care Provider Madiha Busch RN Unavailable Encounter Details Date Type Department Care Team (Late Contact Info) Description 12/28/2023 Abstract [facility] [place] [address] [facility] 110 [place] [address] Nohemy Guajardo MD [address] [facility] 110 [place] [address] Social History Tobacco Use Types Packs/Day Years [...] Type Department Care Team ([facility] Contact Info) Description 04/02/2025 1:00 PM EST Office Visit [facility] [place] [address] [place] [address] [place] [address] Nohemy Guajardo MD [address] [facility] 110 [place] [address] documented as of this encounter Visit Diagnoses Not on filedocumented in this encounter Additional Health Concerns Assessment Noted Time PHQ-9 Depression Total Score: 4 12/26/19 24 10:00 AM EDT documented as of this encounter Care Teams Onion Farmer Relationship Specialty Start Date End Date Nohemy Guajardo MD [address] [facility] 110 [place] [address] PCP - ACO Reach 10/07/22 Nohemy Guajardo MD [address] [facility] 110 [place] [address] PCP - General Family Medicine 10/28/22 Madiha Bucsh, ONIEL [address] [place] [address] Registered Nurse Family Medicine 01/29/25 01/31/25 documented as of this encounter
--- OUTSIDE RECORDS SUMMARY | 2025-02-28 09:10 | XMS_ITS | Encounter Summary ---
Author Organization [facility] tem Address [id number] [address] [place] [address] Care Team Providers Care Blueprint Developer Name Role Phone Nohemy Guajardo MD Primary Care Provider [phone] Encounter Details Date Type Department Care Team (Late st Contact Info) Description 03/03/2016 Refill [facility] [address] [place] [phone] Kristina Elizalde Social History Tobacco Use Types [...] on filedocumented in this encounter Care Teams Blueprint Developer Relationship Specialty Start Date End [place] [address] PCP - General Family Medicine 11/15/19 documented as of this encounter
--- OUTSIDE RECORDS SUMMARY | 2025-02-28 09:10 | XMS_ITS | Encounter Summary ---
Author Organization [facility] Address [address] [place] [address] Care Team Providers Care Composition Weatherboard Installer Name Role Phone Nohemy Guajardo MD Unavailable Nohemy Guajardo MD Primary Care Provider Madiha Busch RN Unavailable Encounter Details Date Type Department Care Team (Late Contact Info) Description 12/17/2024 Abstract [facility] [place] [address] [facility] 110 [place] [address] Nohemy Guajarod MD [address] [facility] 110 [place] [address] Social History Tobacco Use Types Packs/Day Years [...] [address] [place] [address] [place] [address] Nohemy Guajardo MD [address] [facility] 110 [place] [address] documented as of this encounter Visit Diagnoses Not on filedocumented in this encounter Additional Health Concerns Assessment Noted Time PHQ-9 Depression Total Score: 4 12/26/19 24 10:00 AM EDT documented as of this encounter Care Teams Composition Weatherboard Installer Relationship Specialty Start Date End Date Nohemy Guajardo MD [address] [facility] 110 [place] [address] PCP - ACO Reach 10/07/22 Nohemy Guajardo MD [address] [facility] 110 [place] [address] PCP - General Family Medicine 10/28/22 Madiha Busch, ONIEL [address] [place] [address] Registered Nurse Family Medicine 01/29/25 01/31/25 documented as of this encounter
--- OUTSIDE RECORDS SUMMARY | 2025-02-28 09:10 | XMS_ITS | Clinical Summary ---
Author Organization [facility] Address [address] [place] [address] Care Team Providers Care Arc Cutter Plasma Arc Name Role Phone Nohemy Guajardo MD Unavailable Nohemy Guajardo MD Primary Care Provider [phone] Allergies Active Allergy Reactions Criticality Noted Date [...] mouth 1 (one) time each day. Active [place]-3 Fatty Acids (Fish Oil) 1000 MG capsule [...] g by mouth Daily as needed. Active naproxen (Naprosyn) 500 MG tabletIndications :Hand [...] inhalerIndication s:Chronic obstructive pulmonary disease, unspecified ([facility]) INHALE 2 PUFFS EVERY DAY 12 g 3 025 Active insulin pen needle (Droplet Pen Prospect) 32G x 4 mm miscIndications:O ther specified diabetes mellitus with other specified complication, unspecified whether halfway insulin use ([facility]) USE INSTRUCTED 300 each 3 025 Active OXcarbazepine (Trileptal) 300 MG tabletIndications :Other diabetic neurological complication associated with type 2 diabetes mellitus ([facility]) TAKE 1 TABLET IN THE MORNING AND [...] use of insulin ([facility]) Inject 22 Units under the skin at bedtime 025 Active gabapentin (Neurontin) 600 MG tabletIndications :Type 2 diabetes mellitus with diabetic polyneuropathy, with long-term current use of insulin ([facility]) Take 1 tablet (600 mg) by mouth in the morning and 1 tablet (600 mg) in the evening and 1 tablet (600 mg) before bedtime. 300 tablet 3 025 Active amLODIPine (Norvasc) 10 MG tabletIndications :Essential hypertension TAKE 1 TABLET (10 MG) BY MOUTH DAILY. 100 tablet 1 025 Active OneTouch Ultra test stripIndications: Type 2 diabetes mellitus with diabetic polyneuropathy, with long-term current use of insulin ([facility]),Type 2 diabetes mellitus with diabetic peripheral angiopathy without gangrene, without long-term current use of insulin ([facility]) USE TO TEST BLOOD SUGAR TWICE DAILY 200 strip 3 025 Active lisinopril 40 MG tabletIndications :Essential hypertension TAKE 1 TABLET EVERY MORNING 100 tablet 3 025 Active hydroCHLOROthiazi de (HYDRODiuril) 25 MG tabletIndications :Essential hypertension TAKE 1 TABLET EVERY MORNING 100 tablet 3 025 Active SITagliptin-metFO RMIN (Janumet) 50-500 MG tabletIndications :Type 2 diabetes mellitus with diabetic polyneuropathy, with long-term current use of insulin (HCC) Take 2 tablets by mouth in the morning. 180 tablet Active ALPRAZolam (Xanax) 0.5 MG tabletIndications :Other insomnia Take 1 tablet (0.5 mg) by mouth as needed at bedtime for anxiety 30 tablet 2024 Active metoprolol tartrate (Lopressor) 25 MG tabletIndications :Essential hypertension TAKE 1 TABLET THREE TIMES DAILY (IN THE MORNING, IN THE EVENING, AND BEFORE BEDTIME) 270 tablet 3 Active atorvastatin (Lipitor) 20 MG tabletIndications :Essential hypertension TAKE 1 TABLET EVERY DAY 90 tablet 3 Active SITagliptin-metFO RMIN (Janumet) 50-500 MG tabletIndications :Type 2 diabetes mellitus with diabetic polyneuropathy, with long-term current use of insulin ([facility]) Take 2 tablets by mouth in the morning. 180 tablet 3 024 2024 Discontinued atorvastatin (Lipitor) 20 MG tabletIndications :Essential hypertension TAKE 1 TABLET EVERY DAY 90 tablet 3 024 2024 Discontinued metoprolol tartrate (Lopressor) 25 MG tabletIndications :Essential hypertension TAKE 1 TABLET THREE TIMES DAILY (IN THE MORNING, IN THE EVENING, AND BEFORE BEDTIME) 270 tablet 3 024 2024 Discontinued ALPRAZolam (Xanax) 0.5 MG tabletIndications :Other insomnia Take 1 tablet (0.5 mg) by mouth as needed at bedtime for anxiety 30 tablet 2024 Discontinued(R eodom) Active Problems Problem Noted Date Diagnosed Date Bilateral carotid bruits 10/11/2024 Routine general medical examination at [facility] 12/26/2023 Atherosclerosis of aorta 12/26/2023 [...] Encounters Date Type Department Care Team Description 02/25[facility] [address] [place] [address] [place] [address] Latonya Marie PA Essential hypertension 02/18/2025 Refill [facility] [place] [facility] [address] [place] [address] [place] [address] Nohemy Guajardo MD Essential hypertension 02/12/2025 Refill [facility] [place] [facility] [address] [place] [address] [place] [address] Nohemy Guajardo MD Other insomnia 02/11/2025 Refill [facility] [place] [facility] [address] [place] [address] [place] [address] Latonya Marie PA Type 2 diabetes mellitus with diabetic polyneuropathy, with long-term current use of insulin (HCC) 12/22/2024 Refill [facility] [place] [facility] [address] [place] [address] [place] [address] Nohemy Guajardo MD Essential hypertension 12/17/2024 Abstract [facility] [place] [facility] [address] [facility] 110 [place] [address] Nohemy Guajardo MD 12/14/2024 Refill [facility] [place] [facility] [address] [facility] [address] [place] [address] Latonya Marie PA Other insomnia 12/14/2024 Abstract [facility] [place] [facility] [address] [place] [address] [place] [address] Nohemy Guajardo MD 12/10/2024 Refill [facility] [place] [facility] [address] [facility] [address] [place] [address] Nohemy Guajardo MD Other insomnia 12/08/2024 Refill [facility] [place] [facility] [address] [place] [address] [place] [address] Nohemy Guajardo MD Type 2 diabetes mellitus with diabetic polyneuropathy, with long-term current use of insulin (HCC); Type 2 diabetes mellitus with diabetic peripheral angiopathy without gangrene, without long-term current use of insulin (HCC) 12/03/2024 Abstract [facility] [place] [facility] [address] [place] [address] [place] [address] Nohemy Guajardo MD from Last 3 Months Immunizations Immunization Administration Dates Next Due Influenza, High Dose Seasonal, Preservative Free 01/06/2024,03/19/2022 Influenza, Recombinant, injectable, preservative free 04/21/2021 Influenza, Seasonal, Quadrivalent, Adjuvanted Novel [id number], preservative-free 06/13 Pneumococcal Conjugate PCV 13 11/07/2020 [...] Office Visit [facility] [place] [facility] 112 [facility] 110 [place] [address] Nohemy Guajardo MD 112 [facility] 110 [place] [address] Health Maintenance Due Date Last Done Comments [...] Performing Organization Information Site ID: QPT Name: [employer] [facility] Address: [address] [place] [address], [address] [place] [id number] Director: Дмитрий Mendoza MD Nohemy Guajardo MD LAB URINE ORDERABLES Final Resul t [facility] * Colonoscopy (01/05/2022 12:00 PM EDT) Anatomical Region Laterality Modality Endoscopy 01/05/2022 12:0 0 PM EDT Narrative 01/05/2022 12:00 PM EDT PERFORMED AT [facility] LOCATION:[id number] Procedure Note CONVERSION, GENERIC - 09/29/2022 PERFORMED AT [facility] LOCATION:[id number] Jesse Rahman MD ENDOSCOPY PROCEDURE ORDERABL ES Final Result * OCC BLD IMMUNO SCREEN (11/10/2020) [facility] OCCULT BLOOD NEGATIVE NEGATIVE [facility] PERFORMING LAB: see note [facility] Comment:[address] Laboratory - [facility] Attendant Latonya Jarrett,[place] [address] ,Ext. [phone] 11/10/2020 Nohemy Guajardo MD [facility] Final Result [facility] * Cologuard?? colon [...] (Patricia Real al, N Engl J Med 2014;370(14):8692-2637) The normal value (reference range) for this assay is negative. COLOGUARD RE-SCREENING RECOMMENDATION: Periodic routine colorectal cancer screening is an important part of preventive healthcare for asymptomatic persons at average risk for colorectal cancer. Following a negative Cologuard result, the [place] [employer] and U.S. Multi-Society Task Force screening guidelines recommend a Cologuard re-screening interval of 3 years. References: [place] [employer] (ACS). Colorectal cancer prevention and early detection. [place], [place]: [place] [employer]; [updated 2015Sep 06]. https://www.cancer.org/cancer/zvena-rcbkuk-ncgosn/zgeximltr-otqirxget-lhytlty/ac s-rec ommendations.html. Accessed January 13, 2018; Dominic DK, Tamiko HARMON, Lance [employer], Colorectal Cancer Screening: Recommendations for Physicians and Patients from the U.S. Multi-Society Task Force on Colorectal Cancer Screening, Am J Gastroenterology 2017; 112:6853-7532. TEST TYPE: Composite algorithmic analysis of stool [...] interval of every 3 years by the [place] [employer] Society and U.S. Multi-Society Task Force. [...] can be accessed at the following location: www.[employer].com/results. Additional description of the Cologuard test process, warnings and precautions can be found at www.cologuardtest.com. Rx only. 11/23/2019 Nohemy Guajardo MD LAB MOLECULAR DIAGNOSTICS ORDERA NENITA Final Result [facility] from Last 3 Months or Most Recently Relevant to Health Maintenance Insurance MEDICARE [facility] Care Teams Arc Cutter Plasma Arc Relationship Specialty Start Date End Date Nohemy Guajardo MD 112 [place] [facility] 110 [place] [address] PCP - ACO Reach 10/07/22 Nohemy Guajardo MD 112 [place] [address] [address] PCP - General Family Medicine 10/28/22
--- OUTSIDE RECORDS SUMMARY | 2025-02-28 09:10 | XMS_ITS | Encounter Summary ---
Author Organization [facility] Address [address] [place] [address] Care Team Providers Care Cleaning Supervisor Name Role Phone Nohemy Prado MD Unavailable Nohemy Prado MD Primary Care Provider [phone] Madiha Busch RN Unavailable [phone] Encounter Details Date Type Department Care Team (Late Contact Info) Description 08/13/2023 Clinisync Result Encounter [facility] External Department Unsolicited Nohemy Prado MD [address] [place] 110 [place] [address] Social History Tobacco Use Types [...] Encounters Date Type Department Care Team ([facility] Contact Info) Description 04/02/2025 1:00 PM EST [facility] [place] [facility] [address] [place] [address] [place] [address] Nohemy Prado MD [address] [place] [address] documented as of this encounter Procedures Procedure Name Priority Date/Time Associated Diagnosis Comments XR LUMBAR SPINE 2 OR 3V 08/13/2023 6:43 AM EDT documented in this encounter Results * XR LUMBAR SPINE 2 OR 3V (08/13/2023 6:43 AM EDT) Anatomical Region Laterality Modality Radiographic Alice ging 08/13/2023 6:43 AM EDT Narrative 08/13/2023 6:46 AM EDT [address] [address] XRay Report Signed Patient: LOVELY ABRAHAM MR#: [id number] : 1945 Acct:[id number] Age/Sex: 78 / F ADM Date: 08/12/23 Loc: RAD Attending Dr: NOHEMY PRADO Ordering Physician: NOHEMY PRADO Date of Service: 08/12/23 Procedure(s): XR lumbar spine 2-3V Accession Number(s): [id number] cc: NOHEMY PRADO [address] [address] Patient Name: LOVELY ABRAHAM MRN: [id number] date: 1945 Sex: F Assigned Patient Location: [facility] Current Patient Location: Accession/Order Number: [id number] Exam Date: 08/12/2023 14:38 Report Date: 08/13/2023 [...] M.D. Signed By: 08/13/2346 DD/ 2 TD/TT: Fireproof Door Assembler: Procedure Note Radiology, Radiologist, MD - 08/17/2023 [place] [address] XRay Report Signed Patient: LOVELY ABRAHAM AMR#: [id number] : 1945cct:[id number] Age/Sex: 78 / FADM Date: 08/12/23 Loc: RAD Attending Dr: NOHEMY PRADO Ordering Physician: NOHEMY PRADO Date of Service: 08/12/23 Procedure(s): XR lumbar spine 2-3V Accession Number(s): [id number] cc: NOHEMY PRADO [place] [id number] Patient Name: LOVELY ABRAHAM MRN: [id number] date: 1945 Sex: F Assigned Patient Location: [facility] Current Patient Location: Accession/Order Number: [id number] Exam Date: 08/12/2023 14:38 Report Date: 08/13/2023 [...] Dumont M.D. Signed By:08/13/23645 DD/ 2 TD/TT: Fireproof Door Assembler: us Nohemy Prado MD IMG XR PROCEDURES Final Result documented in this encounter Visit Diagnoses Not on filedocumented in this encounter Additional Health Concerns Assessment Noted Time PHQ-9 Depression Total Score: 5 12/28/19 23 8:00 AM EDT documented as of this encounter Care Teams Cleaning Supervisor Relationship Specialty Start Date End Date Nohemy Prado MD [address] [facility] 110 [place] [address] PCP - ACO Reach 10/07/22 Nohemy Prado MD [address] [facility] 110 [place] [address] PCP - General Family Medicine 10/28/22 Madiha Busch, ONIEL [address] [facility] [place] [address] Registered Nurse Family Medicine 01/29/25 01/31/25 documented as of this encounter
--- NOTE | 2025-02-28 09:12 | MR_ITS ---
The [address] [address] Patient Name: NUVIA ABRAHAM MRN: [facility]:[id number] date: 1945 Sex: F Assigned Patient Location: MRI Current Patient Location: MRI Accession/Order Number: [id number] Exam Date: 02/28/2025 09:35 Report Date: 02/28/2025 12:22 At the request of: ANGI CLOUD NP Procedure: MR lumbar spine wo con MRI of the lumbar spine performed without contrast INDICATION: Neurogenic claudication COMPARISON: MRI lumbar spine 09/16/2023 FINDINGS: Lumbar vertebral heights are maintained. Anterolisthesis L3-4 and L4-L5 identified 3 mm and 7 mm respectively, mildly progressed. Related to the advanced facet arthropathy these levels. Otherwise moderate intervertebral space narrowing L3-S1. Degenerative marrow changes L4-5 noted appearing predominantly sclerotic Modic type III. Conus medullaris terminates normally at there are simple cyst right kidney. Left renal cysts noted 1 cm size, has some intermediate T2 characteristics but too small to adequately characterize by cross-sectional imaging. Common bile duct is prominent 9 mm. T12-L2: Disc desiccation with facet arthropathy. No significant disc disease or central canal or foraminal narrowing identified. At L2-3: Broad-based disc bulge with mild facet arthropathy and facet joint effusion. Mild central canal narrowing. There is minimal foraminal narrowing. L3-4: Circumferential disc bulge with endplate osteophytosis extending into both foramina zones and moderate severe facet arthropathy. Slight uncovering the posterior disc as well. There is slight cranial migration of disc noted 5 mm. There is moderate bilateral neural from narrowing. There is moderate central canal and gqqy-yv-qzlyavzr right-sided and moderate left-sided subarticular recess narrowing. L4-5: Circumferential disc bulge with uncovering the posterior disc due to the anterolisthesis. There is moderate severe left and severe right neural foraminal narrowing with mass effect on the exiting L4 nerve root. There is severe right-sided and moderate severe left-sided subarticular recess narrowing correlate with right greater than left L5 radiculopathy. There is a 6 mm synovial cyst not well-visualized Images Otherwise moderate central canal stenosis. L5-S1: Circumferential disc bulge with moderate facet arthropathy and endplate osteophytosis extending both foramina zones. There is moderate right-sided and idnygtkj-kp-hrjulu left-sided neural foraminal narrowing with encroachment upon the exiting left-sided L5 nerve root. Additionally, there is a 6 mm synovial cysts contribute to the left foraminal encroachment. Correlate with left L5 radiculopathy. MR/MR lumbar spine wo con IMPRESSION: Stable multilevel degenerative changes greatest lower lumbar spine predominantly caused by posterior element hypertrophic changes. Please correlate with possible right L4 and L5 radiculopathy due to the right foraminal zone and subarticular zone encroachment and correlate with possible left L5 radiculopathy due to the left foraminal zone encroachment. Otherwise stable moderate multilevel canal narrowing. Impression dictated by: Benja Escudero M.D. 02/28/2025 12:22 PM Dictation Location: [place] [address] Electronically authenticated by: [id number] Y Date: 02/28/2025 12:22
--- OUTSIDE RECORDS SUMMARY | 2025-02-28 09:14 | XMS_ITS | CCD ---
Author Organization [facility] Care Team Providers Care Metallurgical Analyst Name Role Phone Mikie West Unavailable MD [...] Unavailable MD Wily Prado Primary Care Provider [phone] MD Wily Prado Referring Provider [phone] CARMELA Tijerina Attending Provider PROVIDER, UNKNOWN Admitting [...] Care Provider MD Wily Prado Referring Provider [phone] CARMELA Tijerina Attending Provider MD Wily Prado Primary Care Provider [phone] MD Wily Prado Referring Provider [phone] Marianaedwar CERTIFIED PHYSICIAN'S ASSISTANT Taylor Morgan Attending Provider Wily Prado MD [...] Neomycin / Polymyxin B Drug Allergy Unknown [facility] Other (1 source) Cimetidine Drug Allergy Unknown [facility] Other (20 sources) Bacitracin; Translations: [bacitracin] Drug Allergy 2 [facility] (20 sources) Cimetidine; Translations: [cimetidine] Drug Allergy 2 [facility] (20 sources) Neomycin; Translations: [neomycin] Drug Allergy 2 [facility] (10 sources) contact metal agent; Translations: [contact metal agent] Propensity to adverse reactions 2 [facility] (11 sources) petrolatum,whit e; Translations: [petrolatum,whi te] Propensity to adverse reactions 2 [facility] (20 sources) polymyxin B; Translations: [polymyxin B] Propensity to adverse reactions 2 [facility] (1 source) Bacitracin / Neomycin / Polymyxin B Drug Allergy 5 [facility] (1 source) Cimetidine Drug Allergy 5 [facility] (20 sources) Bacitracin / Polymyxin B Drug Allergy 3 Unknown [facility] Work Phone: (20 sources) Petrolatum Drug Allergy 3 Unknown [facility] Medications Current Medications Medication Drug Class(es) Dates Sig (Normalized) Sig (Original) [id number] 200 actuat albuterol 0.09 mg/actuat metered dose [...] 1000 mg by mouth once daily Evening Titus Oil Active 1000 MG PO every day at noon December 17, 2019 12:00am take 1 capsule by mouth once alma delia ly Evening Titus Oil 1000 MG 1 capsule Orally one [...] bedtime. 300 tablet 3 11/09/2024 Active [place] 300 MG (1 source) take 1 capsule by mouth once daily [place] 300 MG 1 capsule Orally one time [...] 300 mg by mouth once daily [place] Active 300 MG PO every day at [...] MOUTH EVERY DAY Inhalation for 90 Active Rice 2-Tzm-Ukh-Fish Oil (Fish Oil) 1,000 mg (120 mg-180 mg) Capsule (9 sources) Start: 12-17-2019 take 1 capsule by mouth twice daily Rice 5-Vmn-Csb-Fish Oil (Fish Oil) 1,000 mg (120 mg-180 mg) Capsule Active 1 CAP PO Twice daily December 16, 2019 11:00pm Start: 12-17-2019 take 1 capsule by mo [facility] twice daily Rice 1-Zlg-Epn-Fish Oil (Fish Oil) 1,000 mg (120 mg-180 mg) Capsule Active 1 CAP PO Twice daily December 17, 2019 12:00am Rice-3 Fatty Acids (Fish Oi l) 1000 MG capsule delayed-release (20 sources) take 1 capsule by mouth once daily Rice-3 Fatty Acids (Fish Oil) 1000 MG capsule delayed-release Take 1 capsule by mouth 1 (one) time each day. Active take 1 capsule by mouth once alma delia ly Rice-3 Fatty Acids (Fish Oil) 1000 MG capsule [...] tablet 3 11/14/2023 Active polyethylene glycol 3350 53115 mg powder for oral solution (20 sources) [...] 11:00pm Start: 12-17-2019 [facility] Vitamin B Complex (B-Complex) Tablet [...] (1 source) take 1 capsule by mo [facility] once daily Vitamin E 400 UNIT 1 [...] Dates Sig (Normalized) Sig (Original) Glucos [place] 5zgf-Hfd-Ixdzj-C-M n (Glucosamine Chondroitin) 550-30-1 mg Capsule (9 sources) Start: 12-17-2019 End: 01-12-2022 take 1 capsule by mouth twice daily Glucos Sul 8wut-Lni-Vcdmc-C-Mn (Glucosamine Chondroitin) 550-30-1 mg Capsule Discontinued 1 CAP PO Twice daily December 16, 2019 11:00pm January 12, 2022 10:09am Start: 12-17-2019 End: 01-12-2022 take 1 capsule by mouth twice daily Glucos Sul 1wmi-Cis-Bduoz-C-Mn (Glucosamine Chondroitin) 550-30-1 mg Capsule Discontinued 1 [...] disease (1 source) Atherosclerotic heart disease of [place] coronary artery without angina pectoris; Translations: [ASHD COEUR [place]'ALENE 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] Onset: 11-25-2021 Chronic [...] 10-31-2022 10-31-2022 Chronic Other aftercare (1 source) senior living (current) use of aspirin; Translations: [SENIOR LIVING CURRENT USE OF ASPIRIN] Onset: 01-25-2022 Episodic Other aftercare (1 source) senior living (current) use of insulin; Translations: [ECONOMETRICIAN CURRENT USE OF INSULIN] Onset: 01-25-2022 Episodic Other aftercare (1 source) Other rn long term care (current) drug therapy; Translations: [OTH ECONOMETRICIAN CURRENT DRUG THERAPY] Onset: 01-25-2022 Episodic Other [...] Onset: 08-17-2021 Episodic Other aftercare (1 source) senior living (current) use of oral hypoglycemic drugs; Translations: [ECONOMETRICIAN USE ORAL HYPOGLYCEMIC DX] Onset: 05-28-2021 Episodic [...] Test Name Value Interpretation Reference Range Facility [facility] US CAROTID ARTERY DUPLE X BILATERALon 10-19-2024 [facility] US CAROTID ARTERY DUPLEX BILATERAL EXAM: [facility] US CAROTID ARTERY DUPLEX BILATERAL [...] present in the vertebral artery. There is kevb-gz-rhhauvrk plaque visualized in the left common carotid [...] II, MD, PHD at 22-Oct-2024 10:54:18 AM [facility] Teleradiology SRU criteria: <180 No plaque <2.0 Normal <180 <50% plaque <2.0 <50% 180-230 >50% plaque 2.0 - 4.0 50-69% >230 >50% plaque >4.0 >70% PSV 125-180 cm/sec and ICA/CCA PSV Ratio >= 2.0 is also consistent with 50-69% stenosis. Normal Not Available Laboratory - Hematology and Cell countson 10-11-2024 HbA1c (Bld) [Mass fraction] 4.8 % [facility] No Panel Informationon 10-11 Interpretation and review of laboratory results Normal [facility] CBC (H/H, RBC, INDICES, WBC, PLT)on 05-12-2024 Erythrocyte distribution width (RBC) [Ratio] 14.0 % Normal 11.0-15.0 [facility] Comment on above: Performed By: #### 7 600 #### [facility] [address] [facility], [address] [place] [id number] Ppap Coordinator: Дмитрий Mendoza MD #### [id number], [id number] #### [facility]-[address] [address] Ppap Coordinator: Joyce Vaca Hematocrit (Bld) [Volume fraction] 40.1 % Normal 35.0-45.0 [facility] Comment on above: Performed By: #### 7 600 #### [facility] [address] [facility], [address] [place] [address] Ppap Coordinator: Дмитрий Mendoza MD #### [id number], 1759 #### [facility] [address] [place] [address] Ppap Coordinator: Joyce Vaca Hemoglobin (Bld) [Mass/Vol] 13.5 g/dL Normal 11.7-15.5 [facility] Comment on above: Performed By: #### 7 600 #### [facility] [address], [address] [place] [address] Ppap Coordinator: Дмитрий Mendoza MD #### [id number], 1759 #### [facility] [address] Ppap Coordinator: Joyce Vaca MCH (RBC) [Entitic mass] 30.6 pg Normal 27.0-33.0 [facility] Comment on above: Performed By: #### 7 600 #### [facility] [place] [address] Ppap Coordinator: Димтрий Mendoza MD #### [id number], 1759 #### [facility] [address] Ppap Coordinator: Joyce Vaca MCHC (RBC) [Mass/Vol] 33.7 g/dL [...] By: #### 7 600 #### [facility] [address], [address] [place] [address] Ppap Coordinator: Дмитрий Mendoza MD #### [id number], 1759 #### [facility]-[address] [address] Ppap Coordinator: Joyce Vaca MCV (RBC) [Entitic vol] 90.9 fL Normal 80.0-100.0 [facility] Comment on above: Performed By: #### 7 600 #### [facility] [address], [address] [place] [address] Ppap Coordinator: Дмитрий Mendoza MD #### [id number], 1759 #### [facility] [address] Ppap Coordinator: Joyce Vaca Platelet mean volume (Bld) [Entitic vol] 8.5 fL Normal 7.5-12.5 [facility] Comment on above: Performed By: #### 7 600 #### [facility] [address], [address] [place] [address] Ppap Coordinator: Дмитрий Mendoza MD #### [id number], 1759 #### [facility] [address] Ppap Coordinator: Joyce Vaca Platelets (Bld) [#/Vol] 309 10*3/uL Normal 140-400 [facility] Comment on above: Performed By: #### 7 600 #### [facility] [address], [address] [place] [address] Ppap Coordinator: Дмитрий Mendoza MD #### [id number], 1759 #### [facility] [address] Ppap Coordinator: Joyce Vaca RBC (Bld) [#/Vol] 4.41 10*6/uL Normal 3.80-5.10 [facility] Comment on above: Performed By: #### 7 600 #### [facility] [address], [address] [place] [address] Ppap Coordinator: Дмитрий Mendoza MD #### [id number], 1759 #### [facility] [address] Ppap Coordinator: Joyce Vaca WBC (Bld) [#/Vol] 7.2 10*3/uL Normal 3.8-10.8 [facility] Comment on above: Performed By: #### 7 600 #### [facility] [address], [address] [place] [address] Ppap Coordinator: Дмитрий Mendoza MD #### [id number], 1759 #### [facility] [address] [place] [address] Ppap Coordinator: Joyce Vaca [facility] 05-12-2024 Albumin [Mass/Vol] 3.7 g/dL Normal 3.6-5.1 [facility] Comment on above: Performed By: #### 7 600 #### [facility] [address], [address] [place] [address] Ppap Coordinator: Дмитрий Mendoza MD #### [id number], 1759 #### [facility] [address] Ppap Coordinator: Joyce Vaca Albumin/Globulin [Mass ratio] 1.3 {ratio} Normal 1.0-2.5 [facility] Comment on above: Performed By: #### 7 600 #### [facility] [address], [address] [place] [address] Ppap Coordinator: Дмитрий Mendoza MD #### [id number], 1759 #### [facility] [address] Ppap Coordinator: Joyce Vaca ALP [Catalytic activity/Vol] 35 U/L Low 37-153 [facility] Comment on above: Performed By: #### 7 600 #### [facility] [address], [address] [place] [address] Ppap Coordinator: Дмитрий Mendoza MD #### [id number], 1759 #### [facility] [address] [place] [address] Ppap Coordinator: Joyce Vaca ALT [Catalytic activity/Vol] 16 U/L Normal 6-29 [facility] Comment on above: Performed By: #### 7 600 #### [facility] [address], [address] [place] [address] Ppap Coordinator: Дмитрий Mendoza MD #### [id number], 1759 #### [facility] [address] [place], [place] [id number] Ppap Coordinator: Joyce Vaca AST [Catalytic activity/Vol] 26 U/L Normal 10-35 [facility] Comment on above: Performed By: #### 7 600 #### [facility] [address], [address] [place] [address] Ppap Coordinator: Дмитрий Mendoza MD #### 85873, 1759 #### [facility] [address] [place] [address] Ppap Coordinator: Joyce Vaca Bilirubin [Mass/Vol] 0.5 mg/dL Normal 0.2-1.2 [facility] Comment on above: Performed By: #### 7 600 #### [facility] [place] [address] Ppap Coordinator: Дмитрий Mendoza MD #### 40216, 1759 #### [facility] [address] [place] [address] Ppap Coordinator: Joyce Vaca BUN/CREATININE RATIO SEE NOTE: Normal 6-22 [facility] Comment on above: Result Comment: Not Reported: BUN and Creatinine are within reference range. Performed By: #### 7 600 #### [facility] [place] [address] Ppap Coordinator: Дмитрий Mendoza MD #### 17080, 1759 #### [facility] [address] [place] [address] Ppap Coordinator: Joyce Vaca Calcium [Mass/Vol] 9.6 mg/dL Normal 8.6-10.4 [facility] Comment on above: Performed By: #### 7 600 #### [facility] [address], [address] [place] [address] Ppap Coordinator: Дмитрий Mendoza MD #### 90386, 1759 #### [facility] [address] [place], [place] [id number] Ppap Coordinator: Joyce Vaca Chloride [Moles/Vol] 97 mmol/L Low 98-110 [facility] Comment on above: Performed By: #### 7 600 #### [facility] [address], [address] [place] [address] Ppap Coordinator: Дмитрий Mendoza MD #### 16911, 1759 #### [facility] [address] [place] [address] Ppap Coordinator: Joyce Friedmani CO2 [Moles/Vol] 30 mmol/L Normal 20-32 [facility] Comment on above: Performed By: #### 7 600 #### [facility] [address], [address] [place] [address] Ppap Coordinator: Дмитрий Mendoza MD #### 41614, 1759 #### [place] [address] Ppap Coordinator: Joyce Vaca Creatinine [Mass/Vol] 0.69 mg/dL Normal 0.60-1.[address] [facility] Comment on above: Performed By: #### 7 600 #### [facility] [address], [address] [place] [address] Ppap Coordinator: Дмитрий Mendoza MD #### 95897, 1759 #### [facility] [phone] Ppap Coordinator: Joyce Friedmani GFR/1.73 sq M.predicted among non-blacks MDRD (S/P/Bld) [Vol rate/Area] 90 mL/min/{1.73_m2} Normal > OR = 60 [facility] Comment on above: Performed By: #### 7 600 #### [facility] [address], [address] [place] [address] Ppap Coordinator: Дмитрий Mendoza MD #### [id number], 1759 #### [facility] [phone] Ppap Coordinator: Joyce Vaca Globulin (S) [Mass/Vol] 2.8 g/dL Normal 1.9-3.7 [facility] Comment on above: Performed By: #### 7 600 #### [facility] [address], [address] [place] [address] Ppap Coordinator: Дмитрий Mendoza MD #### [id number], 1759 #### [place] [address] Ppap Coordinator: Joyce Hurley Flati Glucose [Mass/Vol] 81 mg/dL Normal 65-139 [facility] Comment on above: Result Comment: Non-fasting reference interval Performed By: #### 7 600 #### [facility] [address], [address] [place] [address] Ppap Coordinator: Дмитрий Mendoza MD #### 26309, 1759 #### [facility]-[address] Ppap Coordinator: Joyce Hurley Flati Potassium [Moles/Vol] 4.1 mmol/L Normal 3.5-5.3 [facility] st [facility] Comment on above: Performed By: #### 7 600 #### [facility] [address], [address] [place] [address] Ppap Coordinator: Дмитрий Mendoza MD #### 98656, 1759 #### [facility]-[address] Ppap Coordinator: Joyce Hurley Flati Protein [Mass/Vol] 6.5 g/dL Normal 6.1-8.1 [facility] Comment on above: Performed By: #### 7 600 #### [facility] [address], [address] [place] [address] Ppap Coordinator: Дмитрий Mendoza MD #### 32076, 1759 #### [facility] [address] [place], [place] [id number] Ppap Coordinator: Joyce Hurley Flati Sodium [Moles/Vol] 135 mmol/L Normal 135-146 [facility] Comment on above: Performed By: #### 7 600 #### [facility] [address], [address] [place] [address] Ppap Coordinator: Дмитрий Mendoza MD #### 45015, 1759 #### [facility] [address] [place], [place] [phone] Ppap Coordinator: Joyce Vaca Urea nitrogen [Mass/Vol] 21 mg/dL Normal 7- [facility] Comment on above: Performed By: #### 7 600 #### [facility] [address], [address] [place] [address] Ppap Coordinator: Дмитрий Mendoza MD #### 21591, 1759 #### [facility] [address] [place] [address] Ppap Coordinator: Joyce Vaca LIPID PANEL, [facility] 12-2 Cholesterol [Mass/Vol] 156 mg/dL Normal <200 [facility] Comment on above: Order Comment: FASTI NG:NO COLLECTION REQUIREMENTS NOT MET. PATIENT ADVISED TO RETURN. FASTING: NO Performed By: #### 7 600 #### [facility] [address], [address] [place] [address] Ppap Coordinator: Дмитрий Mendoza MD #### [id number], 1759 #### [facility] [address] [place], [place] [id number] Ppap Coordinator: Joyce Vaca Cholesterol in HDL [Mass/Vol] 42 mg/dL Low > OR = 50 [facility] Comment on above: Order Comment: FASTI NG:NO COLLECTION REQUIREMENTS NOT MET. PATIENT ADVISED TO RETURN. FASTING: NO Performed By: #### 7 600 #### [facility] [address], [address] [place] [address] Ppap Coordinator: Дмитрий Mendoza MD #### [id number], 1759 #### [facility] [address] [place], [place] [phone] Ppap Coordinator: Joyce Vaca Cholesterol in LDL [Mass/Vol] 85 [...] LDL-C. Devyn SUE et al. ZORAIDA. 2013;310(19): 9006-7932 (http://education.Roobi[employer]/faq/NEQ030) Performed By: #### 7 600 #### [facility] [address], [address] [place] [address] Ppap Coordinator: Дмитрий Mendoza MD #### 56054, 1759 #### [facility] [address] [place] [address] Ppap Coordinator: Joyce Vaca Cholesterol.total/Rocío sterol in HDL [Mass ratio] 3.7 {ratio} Normal <5.0 [facility] Comment on above: Order Comment: FASTI NG:NO COLLECTION REQUIREMENTS NOT MET. PATIENT ADVISED TO RETURN. FASTING: NO Performed By: #### 7 600 #### [facility] [address], [address] [place] [address] Ppap Coordinator: Дмитрий Mendoza MD #### [id number], 1759 #### [facility] [address] [place] [address] Ppap Coordinator: Joyce Vaca NON HDL CHOLESTEROL 114 mg/dL [...] By: #### 7 600 #### [facility] [address], [address] [place] [address] Ppap Coordinator: Дмитрий Mendoza MD #### [id number], 1759 #### [facility] [address] [place], [place] [phone] Ppap Coordinator: Joyce Vaca Triglyceride [Mass/Vol] 197 mg/dL High <150 [facility] Comment on above: Order Comment: FASTI NG:NO COLLECTION REQUIREMENTS NOT MET. PATIENT ADVISED TO RETURN. FASTING: NO Performed By: #### 7 600 #### [facility] [address], [address] [place] [address] Ppap Coordinator: Дмитрий Mendoza MD #### [id number], 1759 #### [facility] [address] [place] [address] Ppap Coordinator: Joyce Vaca MR lumbar spine wo conon MR lumbar spine wo con [facility] [place] [address] [place], [place] [id number] XRay Report Signed Patient: Nuvia Martin MR#: [id number] : 1945 Acct:[id number] Age/Sex: 78 / F ADM Date: 09/16/23 Loc: Room: Type: [facility] Attending Dr: Wily Prado MD Copies to: Wily Prado MD Ordering Provider: Wily Prado MD Date of Service: 09/16/23 MR/MR lumbar spine wo con: M51.36, M43.16 M54.42, M54.41 ([id number]) XR/XR pre/post mri xray: M54.42, M54.41, M51.36, [...] Latonya Riggs M.D.09/16/2023 10:57 AM Dictation Location: [place] [address] Transcribed By: [facility] 09/16/23 1057 Dictated By: Latonya Riggs MD 09/16/23 1046 Signed By: 09/16/23 1057 Normal [facility] Physician [facility] Alanine aminotransferase [En zymatic activity/volume] in Serum or PlasmaOrdered By: Taylor Tijerina on 01-31-2023 ALT [Catalytic activity/Vol] 16 U/L 7-52 [facility] Albumin [Mass/volume] in Ser um or Plasma by Bromocresol green (BCG) dye binding methoOrdered By: Taylor Tijerina on 01-31-2023 Albumin BCG dye [Mass/Vol] 3.7 g/dL 3.5-5.7 [facility] Alkaline phosphatase [Enzyma tic activity/volume] in Serum or PlasmaOrdered By: Taylor Tijerina on 01-31-2023 ALP [Catalytic activity/Vol] 72 U/L 34-104 [facility] Aspartate aminotransferase [ Enzymatic activity/volume] in Serum or PlasmaOrdered By: Taylor Tijerina on 01-31-2023 AST [Catalytic activity/Vol] 24 U/L 13-39 [facility] Basophils Auto (Bld) [#/Vol] Ordered By: Taylor Tijerina on 01-31-2023 Basophils (Bld) [#/Vol] 0.1 10*3/uL 0.0-0.2 [facility] Basophils/100 WBC Auto (Bld) Ordered By: Taylor Tijerina on 01-31-2023 Basophils/100 WBC (Bld) 0.9 % . [facility] Bilirubin.total [Mass/volume ] in Serum or PlasmaOrdered By: Taylor Tijerina on 01-31-2023 Bilirubin [Mass/Vol] 0.4 mg/dL 0.3-1.0 [facility] Calcium [Mass/volume] in Ser um or PlasmaOrdered By: Taylor Tijerina on 01-31-2023 Calcium [Mass/Vol] 9.1 mg/dL 8.6-10.3 [facility] Carbon dioxide, total [Moles /volume] in Serum or PlasmaOrdered By: Taylor Tijerina on 01-31-2023 CO2 [Moles/Vol] 30.6 mmol/L 21.0-31.0 [facility] Chloride [Moles/volume] in S ramiro or PlasmaOrdered By: Taylor Tijerina on 01-31-2023 Chloride [Moles/Vol] 102 mmol/L 98-107 [facility] Creatinine [Mass/volume] in Serum or PlasmaOrdered By: Taylor Tijerina on 01-31-2023 Creatinine [Mass/Vol] 0.90 mg/dL 0.60-1.20 [facility] Eosinophils Auto (Bld) [#/Vo l]Ordered By: Taylor Tijerina on 01-31-2023 Eosinophils (Bld) [#/Vol] 0.1 10*3/uL 0.0-0.45 [facility] Eosinophils/100 WBC Auto (Bl d)Ordered By: Taylor Tijerina on 01-31-2023 Eosinophils/100 WBC (Bld) 2.0 % . [facility] Erythrocyte distribution wid th Auto (RBC) [Ratio]Ordered By: Taylor Tijerina on 01-31-2023 Erythrocyte distribution width (RBC) [Ratio] 13.8 % 11.9-15.3 [facility] Ferritin [Mass/volume] in Se rum or PlasmaOrdered By: Taylor Tijerina on 01-31-2023 Ferritin [Mass/Vol] 58.3 ng/mL 11.0-306.8 [facility] Globulin Calc (S) [Mass/Vol] Ordered By: Taylor Tijerina on 01-31-2023 Globulin (S) [Mass/Vol] 2.6 g/dL [facility] Glucose [Mass/volume] in Ser um or [...] [Volume fraction] 40.4 % 34.0-46.4 [facility] Hemoglobin [Mass/volume] in BloodOrdered By: Taylor Tijerina on 01-31-2023 Hemoglobin (Bld) [Mass/Vol] 13.9 g/dL 11.8-15.4 [facility] Iron [Mass/volume] in Serum or PlasmaOrdered By: Taylor Tijerina on 01-31-2023 Iron [Mass/Vol] 91 ug/dL 50-212 [facility] Iron binding capacity [Mass/ volume] in Serum or PlasmaOrdered By: Taylor Tijerina on 01-31-2023 Iron binding capacity [Mass/Vol] 385 ug/dL 255-450 [facility] Iron saturation [Mass Fracti on] in Serum or PlasmaOrdered By: Taylor Tijerina on 01-31-2023 Iron saturation [Mass fraction] 23.6 % 20-50 [facility] Leukocytes [#/volume] correc shara for nucleated erythrocytes in Blood by Automated counOrdered By: Taylor Tijerina on 01-31-2023 WBC corrected for nucl RBC Auto (Bld) [#/Vol] 6.9 10*3/uL 3.8-11.6 [facility] Lymphocytes Auto (Bld) [#/Vo l]Ordered By: Taylor Tijerina on 01-31-2023 Lymphocytes (Bld) [#/Vol] 1.8 10*3/uL 1.00-4.8 [facility] Lymphocytes/100 WBC Auto (Bl d)Ordered By: Taylor Tijerina on 01-31-2023 Lymphocytes/100 WBC (Bld) 26.2 % . [facility] MCH Auto (RBC) [Entitic mass ]Ordered By: Taylor Tijerina on 01-31-2023 MCH (RBC) [Entitic mass] 32.5 pg 24.7-34.3 [facility] MCHC Auto (RBC) [Mass/Vol]Or dered By: Taylor Tijerina on 01-31-2023 MCHC (RBC) [Mass/Vol] 34.4 g/dL 32.0-35.0 [facility] MCV Auto (RBC) [Entitic vol] Ordered By: Taylor Tijerina on 01-31-2023 MCV (RBC) [Entitic vol] 94.5 fL 80-100 [facility] Monocytes Auto (Bld) [#/Vol] Ordered By: Taylor Tijerina on 01-31-2023 Monocytes (Bld) [#/Vol] 0.6 10*3/uL 0.0-0.8 [facility] Monocytes/100 WBC Auto (Bld) Ordered By: Taylor Tijerina on 01-31-2023 Monocytes/100 WBC (Bld) 9.2 % . [facility] Neutrophils Auto (Bld) [#/Vo l]Ordered By: Taylor Tijerina on 01-31-2023 Neutrophils (Bld) [#/Vol] 4.2 10*3/uL 1.8-7.7 [facility] Neutrophils/100 WBC Auto (Bl d)Ordered By: Taylor Tijerina on 01-31-2023 Neutrophils/100 WBC (Bld) 61.7 % . [facility] No Panel InformationOrdered By: Taylor Tijerina on 01-31-2023 Estimated GFR (CKD-EPI) > 60.0 mL/Min [facility] Creatinine Clearance (Chem 49.88 [facility] Nucleated erythrocytes [Pres ence] in Blood by Automated countOrdered By: Taylor Tijerina on 01-31-2023 Nucleated RBC Auto Ql (Bld) 0.1 /100{WBC} 0-0.5 [facility] Platelet mean volume Auto (B ld) [Entitic vol]Ordered By: Taylor Tijerina on 01-31-2023 Platelet mean volume (Bld) [Entitic vol] 7.4 fL 6.3-10.7 [facility] Platelets Auto (Bld) [#/Vol] Ordered By: Taylor Tijerina on 01-31-2023 Platelets (Bld) [#/Vol] 349 10*3/uL 150-450 [facility] Potassium [Moles/volume] in Serum or PlasmaOrdered By: Taylor Tijerina on 01-31-2023 Potassium [Moles/Vol] 4.2 mmol/L 3.5-5.1 [facility] Comment on above: Hemolysis is present at a level that could interfere with the result. Protein [Mass/volume] in Ser um or PlasmaOrdered By: Taylor Tijerina on 01-31-2023 Protein [Mass/Vol] 6.3 g/dL 6.4-8.9 [facility] RBC Auto (Bld) [#/Vol]Ordere d By: Taylor Tijerina on 01-31-2023 RBC (Bld) [#/Vol] 4.27 10*6/uL 3.60-5.00 [facility] Serum or plasma albumin/glob ulin mass ratioOrdered By: Taylor Tijerina on 01-31-2023 Albumin/Globulin [Mass ratio] 1.4 {ratio} [facility] Serum or plasma anion gap de terminationOrdered By: Taylor Tijerina on 01-31-2023 Anion gap [Moles/Vol] 7.6 mmol/L 6.0-15.0 [facility] Sodium [Moles/volume] in Ser um or PlasmaOrdered By: Taylor Tijerina on 01-31-2023 Sodium [Moles/Vol] 136 mmol/L 136-145 [facility] Transferrin [Mass/volume] in Serum or PlasmaOrdered By: Taylor Tijerina on 01-31-2023 Transferrin [Mass/Vol] 275 mg/dL 203-362 [facility] Urea nitrogen [Mass/volume] in Serum or PlasmaOrdered By: Taylor Tijerina on 01-31-2023 Urea nitrogen [Mass/Vol] 24 mg/dL 7-25 [facility] WBC Auto (Bld) [#/Vol]Ordere d By: Taylor Tijerina on 01-31-2023 WBC (Bld) [#/Vol] 6.9 10*3/uL 3.8-11.6 [facility] Alanine aminotransferase [En zymatic activity/volume] in Serum or PlasmaOrdered By: Taylor Tijerina on 11-01-2022 ALT [Catalytic activity/Vol] 18 U/L 7-52 [facility] Albumin [Mass/volume] in Ser um or Plasma by Bromocresol green (BCG) dye binding methoOrdered By: Taylor Tijerina on 11-01-2022 Albumin BCG dye [Mass/Vol] 3.8 g/dL 3.5-5.7 [facility] Alkaline phosphatase [Enzyma tic activity/volume] in Serum or PlasmaOrdered By: Taylor Tijerina on 11-01-2022 ALP [Catalytic activity/Vol] 38 U/L 34-104 [facility] Aspartate aminotransferase [ Enzymatic activity/volume] in Serum or PlasmaOrdered By: Taylor Tijerina on 06-19-2023 AST [Catalytic activity/Vol] 22 U/L 13-39 [facility] Basophils Auto (Bld) [#/Vol] Ordered By: Taylor Tijerina on 11-01-2022 Basophils (Bld) [#/Vol] 0.1 10*3/uL 0.0-0.2 [facility] Basophils/100 WBC Auto (Bld) Ordered By: Taylor Tijerina on 11-01-2022 Basophils/100 WBC (Bld) 1.3 % . [facility] Bilirubin.total [Mass/volume ] in Serum or PlasmaOrdered By: Taylor Tijerina on 11-01-2022 Bilirubin [Mass/Vol] 0.4 mg/dL 0.3-1.0 [facility] Calcium [Mass/volume] in Ser um or PlasmaOrdered By: Taylor Tijerina on 11-01-2022 Calcium [Mass/Vol] 9.2 mg/dL 8.6-10.3 [facility] Carbon dioxide, total [Moles /volume] in Serum or PlasmaOrdered By: Taylor Tijerina on 11-01-2022 CO2 [Moles/Vol] 28.9 mmol/L 21.0-31.0 [facility] Chloride [Moles/volume] in S ramiro or PlasmaOrdered By: Taylor Tijerina on 11-01-2022 Chloride [Moles/Vol] 100 mmol/L 98-107 [facility] Creatinine [Mass/volume] in Serum or PlasmaOrdered By: Taylor Tijerina on 11-01-2022 Creatinine [Mass/Vol] 0.76 mg/dL 0.60-1.20 [facility] Eosinophils Auto (Bld) [#/Vo l]Ordered By: Taylor Tijerina on 11-01-2022 Eosinophils (Bld) [#/Vol] 0.1 10*3/uL 0.0-0.45 [facility] Eosinophils/100 WBC Auto (Bl d)Ordered By: Taylor Tijerina on 11-01-2022 Eosinophils/100 WBC (Bld) 1.7 % . [facility] Erythrocyte distribution wid th Auto (RBC) [Ratio]Ordered By: Taylor Tijerina on 11-01-2022 Erythrocyte distribution width (RBC) [Ratio] 13.6 % 11.9-15.3 [facility] Ferritin [Mass/volume] in Se rum or PlasmaOrdered By: Taylor Tijerina on 11-01-2022 Ferritin [Mass/Vol] 90.9 ng/mL 11.0-306.8 [facility] Globulin Calc (S) [Mass/Vol] Ordered By: Taylor Tijerina on 11-01-2022 Globulin (S) [Mass/Vol] 2.2 g/dL [facility] Glucose [Mass/volume] in Ser um or [...] [Volume fraction] 37.4 % 34.0-46.4 [facility] Hemoglobin [Mass/volume] in BloodOrdered By: Taylor Tijerina 11-01-2022 Hemoglobin (Bld) [Mass/Vol] 13.0 g/dL 11.8-15.4 [facility] Iron [Mass/volume] in Serum or PlasmaOrdered By: Taylor Tijerina 11-01-2022 Iron [Mass/Vol] 94 ug/dL 50-212 [facility] Iron binding capacity [Mass/ volume] in Serum or PlasmaOrdered By: Taylor Tijerina on 11-01-2022 Iron binding capacity [Mass/Vol] 372 ug/dL 255-450 [facility] Iron saturation [Mass Fracti on] in Serum or PlasmaOrdered By: Taylor Tijerina on 11-01-2022 Iron saturation [Mass fraction] 25.3 % 20-50 [facility] Leukocytes [#/volume] correc shara for nucleated erythrocytes in Blood by Automated counOrdered By: Taylor Tijerina on 11-01-2022 WBC corrected for nucl RBC Auto (Bld) [#/Vol] 6.3 10*3/uL 3.8-11.6 [facility] Lymphocytes Auto (Bld) [#/Vo l]Ordered By: Taylor Tijerina on 11-01-2022 Lymphocytes (Bld) [#/Vol] 1.7 10*3/uL 1.00-4.8 [facility] Lymphocytes/100 WBC Auto (Bl d)Ordered By: Taylor Tijerina on 11-01-2022 Lymphocytes/100 WBC (Bld) 26.9 % . [facility] MCH Auto (RBC) [Entitic mass ]Ordered By: Taylor Tijerina on 11-01-2022 MCH (RBC) [Entitic mass] 33.1 pg 24.7-34.3 [facility] MCHC Auto (RBC) [Mass/Vol]Or dered By: Taylor Tijerina on 11-01-2022 MCHC (RBC) [Mass/Vol] 34.7 g/dL 32.0-35.0 [facility] MCV Auto (RBC) [Entitic vol] Ordered By: Taylor Tijerina on 11-01-2022 MCV (RBC) [Entitic vol] 95.6 fL 80-100 [facility] Monocytes Auto (Bld) [#/Vol] Ordered By: Taylor Tijerina on 11-01-2022 Monocytes (Bld) [#/Vol] 0.6 10*3/uL 0.0-0.8 [facility] Monocytes/100 WBC Auto (Bld) Ordered By: Taylor Tijerina on 11-01-2022 Monocytes/100 WBC (Bld) 9.5 % . [facility] Neutrophils Auto (Bld) [#/Vo l]Ordered By: Taylor Tijerina on 11-01-2022 Neutrophils (Bld) [#/Vol] 3.8 10*3/uL 1.8-7.7 [facility] Neutrophils/100 WBC Auto (Bl d)Ordered By: Taylor Tijerina on 11-01-2022 Neutrophils/100 WBC (Bld) 60.6 % . [facility] No Panel InformationOrdered By: Taylor Tijerina on 11-01-2022 Estimated GFR (CKD-EPI) > 60.0 mL/Min [facility] Creatinine Clearance (Chem 57.26 [facility] Nucleated erythrocytes [Pres ence] in Blood by Automated countOrdered By: Taylor Tijerina on 11-01-2022 Nucleated RBC Auto Ql (Bld) 0.2 /100{WBC} 0-0.5 [facility] Platelet mean volume Auto (B ld) [Entitic vol]Ordered By: Taylor Tijerina on 11-01-2022 Platelet mean volume (Bld) [Entitic vol] 7.1 fL 6.3-10.7 [facility] Platelets Auto (Bld) [#/Vol] Ordered By: Taylor Tijerina on 11-01-2022 Platelets (Bld) [#/Vol] 266 10*3/uL 150-450 [facility] Potassium [Moles/volume] in Serum or PlasmaOrdered By: Taylor Tijerina on 11-01-2022 Potassium [Moles/Vol] 4.3 mmol/L 3.5-5.1 [facility] Protein [Mass/volume] in Ser um or PlasmaOrdered By: Taylor Tijerina on 11-01-2022 Protein [Mass/Vol] 6.0 g/dL 6.4-8.9 [facility] RBC Auto (Bld) [#/Vol]Ordere d By: Taylor Tijerina on 11-01-2022 RBC (Bld) [#/Vol] 3.92 10*6/uL 3.60-5.00 [facility] Serum or plasma albumin/glob ulin mass ratioOrdered By: Taylor Tijerina on 11-01-2022 Albumin/Globulin [Mass ratio] 1.7 {ratio} [facility] Serum or plasma anion gap de terminationOrdered By: Taylor Tijerina on 11-01-2022 Anion gap [Moles/Vol] 11.4 mmol/L 6.0-15.0 [facility] Sodium [Moles/volume] in Ser um or PlasmaOrdered By: Taylor Tijerina on 11-01-2022 Sodium [Moles/Vol] 136 mmol/L 136-145 [facility] Transferrin [Mass/volume] in Serum or PlasmaOrdered By: Taylor Tijerina on 11-01-2022 Transferrin [Mass/Vol] 266 mg/dL 203-362 [facility] Urea nitrogen [Mass/volume] in Serum or PlasmaOrdered By: Taylor Tijerina on 11-01-2022 Urea nitrogen [Mass/Vol] 22 mg/dL 7-25 [facility] WBC Auto (Bld) [#/Vol]Ordere d By: Taylor Tijerina on 11-01-2022 WBC (Bld) [#/Vol] 6.3 10*3/uL 3.8-11.6 [facility] Basophils Auto (Bld) [#/Vol] Ordered By: Emily Degroot on 07-22-2022 Basophils (Bld) [#/Vol] 0.0 10*3/uL 0.0-0.2 [facility] Basophils/100 WBC Auto (Bld) Ordered By: Emily Degroot on 07-22-2022 Basophils/100 WBC (Bld) 0.5 % . [facility] Eosinophils Auto (Bld) [#/Vo l]Ordered By: Emily Degroot on 07-22-2022 Eosinophils (Bld) [#/Vol] 0.1 10*3/uL 0.0-0.45 [facility] Eosinophils/100 WBC Auto (Bl d)Ordered By: Emily Degroot on 07-22-2022 Eosinophils/100 WBC (Bld) 1.8 % . [facility] Erythrocyte distribution wid th Auto (RBC) [Ratio]Ordered By: Emily Degroot on 07-22-2022 Erythrocyte distribution width (RBC) [Ratio] 15.1 % 11.9-15.3 [facility] Ferritin [Mass/volume] in Se rum or PlasmaOrdered By: Emily Degroot on 07-22-2022 Ferritin [Mass/Vol] 27.4 ng/mL 11.0-306.8 [facility] Hematocrit Auto (Bld) [Volum e fraction]Ordered By: Emily Degroot on 07-22-2022 Hematocrit (Bld) [Volume fraction] 39.5 % 34.0-46.4 [facility] Hemoglobin [Mass/volume] in BloodOrdered By: Emily Degroot on 07-22-2022 Hemoglobin (Bld) [Mass/Vol] 13.5 g/dL 11.8-15.4 [facility] Iron [Mass/volume] in Serum or PlasmaOrdered By: Emily Degroot on 07-22-2022 Iron [Mass/Vol] 75 ug/dL 50-212 [facility] Iron binding capacity [Mass/ volume] in Serum or PlasmaOrdered By: Emily Degroot on 07-22-2022 Iron binding capacity [Mass/Vol] 486 ug/dL 255-450 [facility] Iron saturation [Mass Fracti on] in Serum or PlasmaOrdered By: Emily Degroot on 07-22-2022 Iron saturation [Mass fraction] 15.4 % 20-50 [facility] Leukocytes [#/volume] correc shara for nucleated erythrocytes in Blood by Automated counOrdered By: Emily Degroot on 07-22-2022 WBC corrected for nucl RBC Auto (Bld) [#/Vol] 6.2 10*3/uL 3.8-11.6 [facility] Lymphocytes Auto (Bld) [#/Vo l]Ordered By: Emily Degroot on 07-22-2022 Lymphocytes (Bld) [#/Vol] 1.5 10*3/uL 1.00-4.8 [facility] Lymphocytes/100 WBC Auto (Bl d)Ordered By: Emily Degroot on 07-22-2022 Lymphocytes/100 WBC (Bld) 24.3 % . [facility] MCH Auto (RBC) [Entitic mass ]Ordered By: Emily Degroot on 07-22-2022 MCH (RBC) [Entitic mass] 31.7 pg 24.7-34.3 [facility] MCHC Auto (RBC) [Mass/Vol]Or dered By: Emily Degroot on 07-22-2022 MCHC (RBC) [Mass/Vol] 34.1 g/dL 32.0-35.0 [facility] MCV Auto (RBC) [Entitic vol] Ordered By: Emily Degroot on 07-22-2022 MCV (RBC) [Entitic vol] 92.9 fL 80-100 [facility] Monocytes Auto (Bld) [#/Vol] Ordered By: Emily Degroot on 07-22-2022 Monocytes (Bld) [#/Vol] 0.5 10*3/uL 0.0-0.8 [facility] Monocytes/100 WBC Auto (Bld) Ordered By: Emily Degroot on 07-22-2022 Monocytes/100 WBC (Bld) 7.9 % . [facility] Neutrophils Auto (Bld) [#/Vo l]Ordered By: Emily Degroot on 07-22-2022 Neutrophils (Bld) [#/Vol] 4.1 10*3/uL 1.8-7.7 [facility] Neutrophils/100 WBC Auto (Bl d)Ordered By: Emily Degroot on 07-22-2022 Neutrophils/100 WBC (Bld) 65.5 % . [facility] Nucleated erythrocytes [Pres ence] in Blood by Automated countOrdered By: Emily Degroot on 07-22-2022 Nucleated RBC Auto Ql (Bld) 0.1 /100{WBC} 0-0.5 [facility] Platelet mean volume Auto (B ld) [Entitic vol]Ordered By: Emily Degroot on 07-22-2022 Platelet mean volume (Bld) [Entitic vol] 7.1 fL 6.3-10.7 [facility] Platelets Auto (Bld) [#/Vol] Ordered By: Emily Degroot on 07-22-2022 Platelets (Bld) [#/Vol] 308 10*3/uL 150-450 [facility] RBC Auto (Bld) [#/Vol]Ordere d By: Emily Degroot on 07-22-2022 RBC (Bld) [#/Vol] 4.25 10*6/uL 3.60-5.00 [facility] Transferrin [Mass/volume] in Serum or PlasmaOrdered By: Emily Degroot on 07-22-2022 Transferrin [Mass/Vol] 347 mg/dL 203-[facility] W[facility] Auto (Bld) [#/Vol]Ordere d By: Emily Degroot on 07-22-2022 WBC (Bld) [#/Vol] 6.2 10*3/uL 3.8-11.6 [facility] Anisocytosis LM Ql (Bld)Orde red By: Mraisabel Noel on 04-23-2022 Anisocytosis Ql (Bld) Moderate [facility] Basophils Auto (Bld) [#/Vol] Ordered By: Marisabel Noel on 04-23-2022 Basophils (Bld) [#/Vol] 0.1 10*3/uL 0.0-0.2 [facility] Basophils/100 WBC Auto (Bld) Ordered By: Marisabel Noel on 04-23-2022 Basophils/100 WBC (Bld) 0.8 % . F [facility] CT biopsyOrdered By: Marisabel foss on 04-23-2022 Transferrin [Mass/Vol] 309 mg/dL 180-380 [facility] Eosinophils Auto (Bld) [#/Vo l]Ordered By: Marisabel Noel on 04-23-2022 Eosinophils (Bld) [#/Vol] 0.2 10*3/uL 0.0-0.45 [facility] Eosinophils/100 WBC Auto (Bl d)Ordered By: Marisabel Noel on 04-23-2022 Eosinophils/100 WBC (Bld) 3.3 % . [facility] Erythrocyte distribution wid th Auto (RBC) [Ratio]Ordered By: Marisabel Noel on 04-23-2022 Erythrocyte distribution width (RBC) [Ratio] 16.9 % 11.9-15.3 [facility] Ferritin [Mass/volume] in Se rum or PlasmaOrdered By: Marisabel Noel on 04-23-2022 Ferritin [Mass/Vol] 40.0 ng/mL 11-306.8 [facility] Hematocrit Auto (Bld) [Volum e fraction]Ordered By: Marisabel Noel on 04-23-2022 Hematocrit (Bld) [Volume fraction] 40.2 % 34.0-46.4 [facility] Hemoglobin [Mass/volume] in BloodOrdered By: Marisabel Noel on 04-23-2022 Hemoglobin (Bld) [Mass/Vol] 13.5 g/dL 11.8-15.4 [facility] Hypochromia LM Ql (Bld)Order ed By: Marisabel Noel on 04-23-2022 Hypochromia Ql (Bld) Moderate [facility] Iron [Mass/volume] in Serum or PlasmaOrdered By: Marisabel Noel on 04-23-2022 Iron [Mass/Vol] 73 ug/dL 40-150 [facility] Iron binding capacity [Mass/ volume] in Serum or PlasmaOrdered By: Marisabel Noel on 04-23-2022 Iron binding capacity [Mass/Vol] 433 ug/dL 255-450 [facility] Iron saturation [Mass Fracti on] in Serum or PlasmaOrdered By: Marisabel Noel on 04-23-2022 Iron saturation [Mass fraction] 16.0 % 20-50 [facility] Leukocytes [#/volume] correc shara for nucleated erythrocytes in Blood by Automated counOrdered By: Marisabel Noel on 04-23-2022 WBC corrected for nucl RBC Auto (Bld) [#/Vol] 7.0 10*3/uL 3.8-11.6 [facility] Lymphocytes Auto (Bld) [#/Vo l]Ordered By: Marisabel Noel on 04-23-2022 Lymphocytes (Bld) [#/Vol] 1.4 10*3/uL 1.00-4.8 [facility] Lymphocytes/100 WBC Auto (Bl d)Ordered By: Marisabel Noel on 04-23-2022 Lymphocytes/100 WBC (Bld) 20.8 % . [facility] MCH Auto (RBC) [Entitic mass ]Ordered By: Marisabel Noel on 04-23-2022 MCH (RBC) [Entitic mass] 29.8 pg 24.7-34.3 [facility] MCHC Auto (RBC) [Mass/Vol]Or dered By: Marisabel Noel on 04-23-2022 MCHC (RBC) [Mass/Vol] 33.4 g/dL 32.0-35.0 [facility] MCV Auto (RBC) [Entitic vol] Ordered By: Marisabel Noel on 12-09-2022 MCV (RBC) [Entitic vol] 89.2 fL 80-100 [facility] Microcytes LM Ql (Bld)Ordere d By: Marisabel Noel on 04-23-2022 Microcytes Ql (Bld) Slight [facility] Monocytes Auto (Bld) [#/Vol] Ordered By: Marisabel Noel on 04-23-2022 Monocytes (Bld) [#/Vol] 0.5 10*3/uL 0.0-0.8 [facility] Monocytes/100 WBC Auto (Bld) Ordered By: Marisabel Noel on 04-23-2022 Monocytes/100 WBC (Bld) 6.9 % . [facility] Neutrophils Auto (Bld) [#/Vo l]Ordered By: Marisabel Noel on 04-23-2022 Neutrophils (Bld) [#/Vol] 4.7 10*3/uL 1.8-7.7 [facility] Neutrophils/100 WBC Auto (Bl d)Ordered By: Marisabel Noel on 04-23-2022 Neutrophils/100 WBC (Bld) 68.2 % . [facility] Nucleated erythrocytes [Pres ence] in Blood by Automated countOrdered By: Marisabel Noel on 04-23-2022 Nucleated RBC Auto Ql (Bld) 0.1 /100{WBC} 0-0.5 [facility] Ovalocyte detectionOrdered B y: Marisabel Noel on 04-23-2022 Ovalocytes LM Ql (Bld) Slight [facility] Platelet adequacy [Presence] in Blood by Light microscopyOrdered By: Marisabel Noel on 04-23-2022 Platelets LM Ql (Bld) Normal Normal [facility] Platelet mean volume Auto (B ld) [Entitic vol]Ordered By: Marisabel Noel on 04-23-2022 Platelet mean volume (Bld) [Entitic vol] 6.9 fL 6.3-10.7 [facility] Platelet morphology finding [Identifier] in BloodOrdered By: Marisabel Noel on 04-23-2022 Platelet morphology finding Nom (Bld) Normal Normal [facility] Platelets Auto (Bld) [#/Vol] Ordered By: Marisabel Noel on 04-23-2022 Platelets (Bld) [#/Vol] 298 10*3/uL 150-450 [facility] RBC Auto (Bld) [#/Vol]Ordere d By: Marisabel Noel on 04-23-2022 RBC (Bld) [#/Vol] 4.51 10*6/uL 3.60-5.00 [facility] RBC morphologyOrdered By: Pablo Noel on 04-23-2022 RBC morphology finding Nom (Bld) N/A [facility] Red blood cell stomatocyte d etectionOrdered By: Marisabel Noel on 04-23-2022 Stomatocytes LM Ql (Bld) Slight [facility] WBC Auto (Bld) [#/Vol]Ordere d By: Marisabel Noel on 04-23-2022 WBC (Bld) [#/Vol] 7.0 10*3/uL 3.8-11.6 [facility] Basophils Auto (Bld) [#/Vol] Ordered By: Taylor Tijerina on 02-18-2022 Basophils (Bld) [#/Vol] N/A [facility] Basophils/100 WBC Auto (Bld) Ordered By: Taylor Tijerina on 02-18-2022 Basophils/100 WBC (Bld) N/A [facility] Basophils/100 WBC (Bld) 1 % 0-2 [facility] Blood anisocytosis detection Ordered By: Taylor Tijerina on 02-18-2022 Anisocytosis Ql (Bld) Marked [facility] Blood hemoglobin measurement (mass/volume)Ordered By: Taylor Tijerina on 02-18-2022 Hemoglobin (Bld) [Mass/Vol] 11.1 g/dL 11.8-15.4 [facility] Blood leukocytes automated c ount (number/volume)Ordered By: Taylor Tijerina on 02-18-2022 WBC (Bld) [#/Vol] 4.5 10*3/uL 4.5-11.[address] [facility] [address] biopsyOrdered By: Taylor Trammell on 02-18-2022 Transferrin [Mass/Vol] 297 mg/dL 180-380 [facility] Eosinophils Auto (Bld) [#/Vo l]Ordered By: Taylor Tijerina on 02-18-2022 Eosinophils (Bld) [#/Vol] N/A [facility] Eosinophils/100 WBC Auto (Bl d)Ordered By: Taylor Tijerina on 02-18-2022 Eosinophils/100 WBC (Bld) N/A [facility] Erythrocyte distribution wid th Auto (RBC) [Ratio]Ordered By: Taylor Tijerina on 02-18-2022 Erythrocyte distribution width (RBC) [Ratio] 38.8 % 11.9-15.3 [facility] Ferritin [Mass/volume] in Se rum or PlasmaOrdered By: Taylor Tijerina on 02-18-2022 Ferritin [Mass/Vol] 229.8 ng/mL 11-306.8 [facility] Hematocrit Auto (Bld) [Volum e fraction]Ordered By: Taylor Tijerina on 02-18-2022 Hematocrit (Bld) [Volume fraction] 35.2 % 34.0-46.4 [facility] Hypochromia detectionOrdered By: Taylor Tijerina on 02-18-2022 Hypochromia Ql (Bld) Marked [facility] Iron [Mass/volume] in Serum or PlasmaOrdered By: Taylor Tijerina on 02-18-2022 Iron [Mass/Vol] 116 ug/dL 40-150 [facility] Iron binding capacity [Mass/ volume] in Serum or PlasmaOrdered By: Taylor Tijerina on 02-18-2022 Iron binding capacity [Mass/Vol] 416 ug/dL 255-450 [facility] Iron saturation [Mass Fracti on] in Serum or PlasmaOrdered By: Taylor Tijerina on 02-18-2022 Iron saturation [Mass fraction] 27.0 % 20-50 [facility] Laboratory - Hematology and Cell countsOrdered By: Taylor Tijerina on 02-18-2022 Band form neutrophils/100 WBC (Bld) 2 % 0-5 [facility] Nucleated RBC/100 WBC (Bld) [Ratio] 0.1 % 0-0.5 [facility] Lymphocytes Auto (Bld) [#/Vo l]Ordered By: Taylor Tijerina on 02-18-2022 Lymphocytes (Bld) [#/Vol] N/A [facility] Lymphocytes/100 WBC Auto (Bl d)Ordered By: Taylor Tijerina on 02-18-2022 Lymphocytes/100 WBC (Bld) N/A [facility] Lymphocytes/100 WBC (Bld) 21 % 18-42 [facility] Lymphocytes/100 WBC Manual c nt (Bld)Ordered By: Taylor Tijerina on 02-18-2022 Lymphocytes/100 WBC (Bld) 2 % 0-12 [facility] MCH Auto (RBC) [Entitic mass ]Ordered By: Taylor Tijerina on 02-18-2022 MCH (RBC) [Entitic mass] 24.7 pg 24.7-34.3 [facility] MCHC Auto (RBC) [Mass/Vol]Or dered By: Taylor Tijerina on 02-18-2022 MCHC (RBC) [Mass/Vol] 31.6 g/dL 32.0-35.0 [facility] MCV Auto (RBC) [Entitic vol] Ordered By: Taylor Tijerina on 02-18-2022 MCV (RBC) [Entitic vol] 78.3 fL 80-100 [facility] Macrocytes detectionOrdered By: Taylor Tijerina on 02-18-2022 Macrocytes Ql (Bld) Moderate [facility] Monocytes Auto (Bld) [#/Vol] Ordered By: Taylor Tijerina on 02-18-2022 Monocytes (Bld) [#/Vol] N/A [facility] Monocytes/100 WBC Auto (Bld) Ordered By: Taylor Tijerina on 02-18-2022 Monocytes/100 WBC (Bld) N/A [facility] Monocytes/100 WBC Manual cnt (Bld)Ordered By: Taylor Tijerina on 02-18-2022 Monocytes/100 WBC (Bld) 6 % 2-11 [facility] Neutrophils Auto (Bld) [#/Vo l]Ordered By: Taylor Tijerina on 02-18-2022 Neutrophils (Bld) [#/Vol] N/A [facility] Neutrophils/100 WBC Auto (Bl d)Ordered By: Taylro Tijerina on 02-18-2022 Neutrophils/100 WBC (Bld) N/A [facility] No Panel InformationOrdered By: Taylor Tijerina on 02-18-2022 Microcytosis Slight [facility] Platelet Estimate Normal Normal [facility] Platelet Morphology Comment Normal Normal [facility] Platelet mean volume Auto (B ld) [Entitic vol]Ordered By: Taylor Tijerina on 02-18-2022 Platelet mean volume (Bld) [Entitic vol] 8.4 fL 6.3-10.7 [facility] Platelets Auto (Bld) [#/Vol] Ordered By: Taylor Tijerina on 02-18-2022 Platelets (Bld) [#/Vol] 363 10*3/uL 150-450 [facility] RBC Auto (Bld) [#/Vol]Ordere d By: Taylor Tijerina on 02-18-2022 RBC (Bld) [#/Vol] 4.49 10*6/uL 3.60-5.00 [facility] RBC morphologyOrdered By: Ana Laura Tijerina on 02-18-2022 RBC morphology finding Nom (Bld) N/A [facility] Red blood cell stomatocyte d etectionOrdered By: Taylor Tijerina on 02-18-2022 Stomatocytes LM Ql (Bld) Slight [facility] Segmented neutrophils/100 WB C Manual cnt (Bld)Ordered By: Taylor Tijerina on 02-18-2022 Segmented neutrophils/100 WBC (Bld) 68 % 50-70 [facility] Progress Noteson 02-17-2022 A And P [employer] Authentication Interface Message Text EMERGENCY TRIAGE, TREAT AND TRANSPORT (ET3) DOCUMENTATION OF TELEHEALTH VISIT Date / Time: 02/17/2022916 Name: Nuvia Martin : 1945 SSN: [id number] EMS Agency: [facility] [x] Verbal consent obtained [] [...] Completed by: Cassidy Julio MD Normal [facility] [employer] [facility] CT FACIAL BONES WO CONon CT [...] CARSON VASQUEZ Date: 2022-01-14 02:14 Normal [facility] XR CHEST 1 Von 01-14-2022 XR CHEST [...] JANET SCHWARTZ Date: 2022-01-14 03:18 Normal [facility] Albumin [Mass/volume] in Ser um or PlasmaOrdered By: Taylor Tijerina on 01-12-2022 Albumin [Mass/Vol] 3.1 g/dL 2.9-4.4 [facility] Basophils Auto (Bld) [#/Vol] Ordered By: Taylor Tijerina on 01-12-2022 Basophils (Bld) [#/Vol] 0.1 10*3/uL 0.0-0.2 [facility] Basophils/100 WBC Auto (Bld) Ordered By: Taylor Tijerina on 01-12-2022 Basophils/100 WBC (Bld) 0.9 % . F [facility] Blood anisocytosis detection Ordered By: Taylor Tijerina on 01-12-2022 Anisocytosis Ql (Bld) Moderate [facility] Blood hemoglobin measurement (mass/volume)Ordered By: Taylor Tijerina on 01-12-2022 Hemoglobin (Bld) [Mass/Vol] 8.2 g/dL 11.8-15.4 [facility] Blood leukocytes automated c ount (number/volume)Ordered By: Taylor Tijerina on 01-12-2022 WBC (Bld) [#/Vol] 6.0 10*3/uL 4.5-11.0 [place] [facility] polychromasia detectio n by light microscopyOrdered By: Taylor Tijerina on 01-12-2022 Polychromasia LM Ql (Bld) Slight [facility] Body fluid albumin measureme nt (mass/volume)Ordered By: Taylor Tijerina on 01-12-2022 Albumin (Body fld) [Mass/Vol] 2.9 g/dL 3.2-5.[address] [facility] [address] biopsyOrdered By: Taylor Trammell on 01-12-2022 Transferrin [Mass/Vol] 479 mg/dL 180-380 [facility] Creatinine and Glomerular fi ltration rate.predicted panel (S/P/Bld)Ordered By: Taylor Tijerina on 01-12-2022 Creatinine [Mass/Vol] 0.76 mg/dL 0.44-1.03 [facility] Eosinophils Auto (Bld) [#/Vo l]Ordered By: Taylor Tijerina on 01-12-2022 Eosinophils (Bld) [#/Vol] 0.1 10*3/uL 0.0-0.45 [facility] Eosinophils/100 WBC Auto (Bl d)Ordered By: Taylor Tijerina on 01-12-2022 Eosinophils/100 WBC (Bld) 1.3 % . [facility] Erythrocyte distribution wid th Auto (RBC) [Ratio]Ordered By: Taylor Tijerina on 01-12-2022 Erythrocyte distribution width (RBC) [Ratio] 22.4 % 11.9-15.3 [facility] Erythrocyte sedimentation ra te by Photometric methodOrdered By: Taylor Tijerina on 01-12-2022 ESR Photometric method (Bld) [Velocity] 21 mm/hr 0-29 [facility] Estimated glomerular filtrat ion rate (GFR) non- AmericanOrdered By: Taylor Tijerina on 01-12-2022 GFR/1.73 sq M.predicted among non-blacks MDRD (S/P/Bld) [Vol rate/Area] > 60 mL/Min [facility] Ferritin [Mass/volume] in Se rum or PlasmaOrdered By: Taylor Tijerina on 01-12-2022 Ferritin [Mass/Vol] 10.8 ng/mL 11-306.8 [facility] Folate [Mass/volume] in Seru m or PlasmaOrdered By: Taylor Tijerina on 01-12-2022 Folate [Mass/Vol] ng/mL >5.9 [facility] Comment on above: Folate reference ran ge: >5.9 ng/ml The WHO technical consultation on folate and vitamin b12 deficiencies has determined that folate concentrations less than 4 ng/ml are considered deficient. Folate reference ran ge: >5.9 ng/mlThe WHO technical consultation on folate and vitamin [id number] has determined that folate concentrations lessthan 4 ng/ml are considered deficient. Globulin Calc (S) [Mass/Vol] Ordered By: Taylor Tijerina on 01-12-2022 Globulin (S) [Mass/Vol] 3.1 g/dL [facility] Hematocrit Auto (Bld) [Volum e fraction]Ordered By: Taylor Tijerina on 01-12-2022 Hematocrit (Bld) [Volume fraction] 27.4 % 34.0-46.4 [facility] Hypochromia detectionOrdered By: Taylor Tijerina on 01-12-2022 Hypochromia Ql (Bld) Moderate [facility] IgA [Mass/volume] in Serum o r PlasmaOrdered By: Taylor Tijerina on 01-12-2022 IgA [Mass/Vol] 206 mg/dL 64-422 [facility] IgG [Mass/volume] in Serum o r PlasmaOrdered By: Taylor Tijerina on 01-12-2022 IgG [Mass/Vol] 1070 mg/dL 586-1602 [facility] IgM [Mass/volume] in Serum o r PlasmaOrdered By: Taylor Tijerina on 01-12-2022 IgM [Mass/Vol] 166 mg/dL 26-217 [facility] Comment on above: Performed at: [facility] [employer] [facility] [employer] [address] [id number] District Fire Management Officer: Carlos Mcintyre PhD, Phone: [phone] Performed at: [employer] [address] [id number] Director: Carlos Mcintyre PhD, Phone: [phone] Immunoglobulin light chains. kappa.free [Mass/volume] in SerumOrdered By: Taylor Tijerina on 01-12-2022 Immunoglobulin light chains.kappa.free (S) [Mass/Vol] 44.4 mg/L 3.3-19.4 [facility] Immunoglobulin light chains. kappa.free/Immunoglobulin light chains.lambda.free [MassOrdered By: Taylor Tijerina on 01-12-2022 Immunoglobulin light chains.kappa.free/Immun oglobulin light chains.lambda.free (S) [Mass ratio] 1.60 0.26-1.65 [facility] Comment on above: Performed at: [employer] [address] [id number] District Fire Management Officer: Carlos Mcintyre PhD, Phone: [phone] Performed at: [employer] [address] [id number] Director: Carlos Mcintyre PhD, Phone: [phone] Immunoglobulin light chains. lambda.free [Mass/volume] in Serum or PlasmaOrdered By: Taylor Tijerina on 01-12-2022 Immunoglobulin light chains.lambda.free [Mass/Vol] 27.7 mg/L 5.7-26.3 [facility] Iron [Mass/volume] in Serum or PlasmaOrdered By: Taylor Tijerina on 01-12-2022 Iron [Mass/Vol] 10 ug/dL 40-150 [facility] Iron binding capacity [Mass/ volume] in Serum or PlasmaOrdered By: Taylor Tijerina on 01-12-2022 Iron binding capacity [Mass/Vol] 671 ug/dL 255-450 [facility] Iron saturation [Mass Fracti on] in Serum or PlasmaOrdered By: Taylor Tijerina on 01-12-2022 Iron saturation [Mass fraction] 1.0 % 20-50 [facility] Laboratory - Chemistry and C hemistry - challengeOrdered By: Taylor Tijerina on 01-12-2022 Cobalamin (Vitamin B12) [Mass/Vol] 700 pg/mL 180-914 [facility] Laboratory - Hematology and Cell countsOrdered By: Taylor Tijerina on 01-12-2022 Nucleated RBC/100 WBC (Bld) [Ratio] 0.2 % 0-0.5 [facility] Lymphocytes Auto (Bld) [#/Vo l]Ordered By: Taylor Tijerina on 01-12-2022 Lymphocytes (Bld) [#/Vol] 1.1 10*3/uL 1.00-4.8 [facility] Lymphocytes/100 WBC Auto (Bl d)Ordered By: Taylor Tijerina on 01-12-2022 Lymphocytes/100 WBC (Bld) 17.7 % . [facility] Lymphocytes/100 WBC (Bld) 25 % 18-42 [facility] MCH Auto (RBC) [Entitic mass ]Ordered By: Taylor Tijerina on 01-12-2022 MCH (RBC) [Entitic mass] 18.6 pg 24.7-34.3 [facility] MCHC Auto (RBC) [Mass/Vol]Or dered By: Taylor Tijerina on 01-12-2022 MCHC (RBC) [Mass/Vol] 29.8 g/dL 32.0-35.0 [facility] MCV Auto (RBC) [Entitic vol] Ordered By: Taylor Tijerina on 01-12-2022 MCV (RBC) [Entitic vol] 62.5 fL 80-100 [facility] Macrocytes detectionOrdered By: Taylor Tijerina on 01-12-2022 Macrocytes Ql (Bld) [facility]light [facility] Monocyte %Ordered By: Taylor dhillonedwar on 01-12-2022 Monocytes/100 WBC (Bld) 1 % 1-3 [facility] Monocytes Auto (Bld) [#/Vol] Ordered By: Taylor Chengpranay on 01-12-2022 Monocytes (Bld) [#/Vol] 0.5 10*3/uL 0.0-0.8 [facility] Monocytes/100 WBC Auto (Bld) Ordered By: Taylor Lilliana on 01-12-2022 Monocytes/100 WBC (Bld) 8.4 % . [facility] Monocytes/100 WBC Manual cnt (Bld)Ordered By: Taylor Lilliana on 01-12-2022 Monocytes/100 WBC (Bld) 6 % 2-11 [facility] Neutrophils Auto (Bld) [#/Vo l]Ordered By: Taylor Chengpranay on 01-12-2022 Neutrophils (Bld) [#/Vol] 4.3 10*3/uL 1.8-7.7 [facility] Neutrophils/100 WBC Auto (Bl d)Ordered By: Taylor Lilliana on 01-12-2022 Neutrophils/100 WBC (Bld) 71.7 % . [facility] No Panel InformationOrdered By: Taylor Chengpranay on 01-12-2022 Absolute Reticulocyte Count 0.213 10*6/uL 0.024-0.084 [facility] Estimated GFR () > 60 mL/Min [facility] Comment on above: GFR estimated refere nce range: According to KDOQI guidelines, <60 ml/min/1.73m2 is sufficient to diagnose a patient with chronic kidney disease. Microcytosis Slight [facility] Percent Reticulocyte Count 4.9 % 0.5-1.5 [facility] Pharmacy Creatinine Clearance (Chem 60.82 [facility] Platelet Estimate Normal Normal [facility] Platelet Morphology Comment Normal Normal [facility] Protein Electrophoresis M-Brooks Comment: g/dL Not Observed [facility] Comment on above: SPE shows asymmetric al gamma. Protein Electrophoresis Note See comment . [facility] Comment on above: Protein electrophore sis scan will follow via computer, mail, or green end worker delivery. Performed at: [address] [id number] District Fire Management Officer: Carlos Mcintyre PhD, Phone: [phone] Protein electrophore sis scan will follow via computer,mail, or green end worker delivery.Performed at: [facility] [place] [id number] Director: Carlos Mcintyre PhD, Phone: [phone] Serum Immunofixation Comment: . [facility] Comment on above: Presence of monoclon al [...] [Entitic vol] 8.4 fL 6.3-10.7 [facility] Platelets Auto (Bld) [#/Vol] Ordered By: Taylor Tijerina on 01-12-2022 Platelets (Bld) [#/Vol] 386 10*3/uL 150-450 [facility] Protein [Mass/volume] in Ser um or PlasmaOrdered By: Taylor Tijerina on 01-12-2022 Protein [Mass/Vol] 6.0 g/dL 6.1-7.9 [facility] Protein [Mass/Vol] 6.4 g/dL 6.0-8.5 [facility] RBC Auto (Bld) [#/Vol]Ordere d By: Taylor Tijerina on 01-12-2022 RBC (Bld) [#/Vol] 4.38 10*6/uL 3.60-5.00 [facility] RBC morphologyOrdered By: Ana Laura Tijerina on 01-12-2022 RBC morphology finding Nom (Bld) N/A [facility] Segmented neutrophils/100 WB C Manual cnt (Bld)Ordered By: Taylor Tijerina on 01-12-2022 Segmented neutrophils/100 WBC (Bld) 68 % 50-70 [facility] Serum globulin measurement ( mass/volume)Ordered By: Taylor Tijerina on 01-12-2022 Globulin (S) [Mass/Vol] 3.3 g/dL 2.2-3.9 [facility] Serum or plasma alanine terry otransferase measurement without P-5'-P (enzymatic activiOrdered By: Taylor Tijerina on 01-12-2022 ALT No additional P-5'-P [Catalytic activity/Vol] 25 U/L 10-60 [facility] Serum or plasma albumin/glob ulin mass ratioOrdered By: Taylor Tijerina on 01-12-2022 Albumin/Globulin [Mass ratio] 0.9 {ratio} 0.7-1.7 [facility] Serum or plasma alkaline ariella sphatase measurement (enzymatic activity/volume)Ordered By: Taylor Tijerina on 01-12-2022 ALP [Catalytic activity/Vol] 52 U/L 32-92 [facility] Serum or plasma alpha 1 glob ulin measurement by electrophoresis (mass/volume)Ordered By: Taylor Tijerina on 01-12-2022 Alpha 1 globulin Elph [Mass/Vol] 0.3 g/dL 0.0-0.4 [facility] Serum or plasma alpha 2 glob ulin measurement by electrophoresis (mass/volume)Ordered By: Taylor Tijerina on 01-12-2022 Alpha 2 globulin Elph [Mass/Vol] 0.8 g/dL 0.4-1.0 [facility] Serum or plasma anion gap de terminationOrdered By: Taylor Tijerina on 01-12-2022 Anion gap [Moles/Vol] 16.3 mmol/L 6.0-15.0 [facility] Serum or plasma aspartate am inotransferase measurement (enzymatic activity/volume)Ordered By: Taylor Tijerina on 01-12-2022 AST [Catalytic activity/Vol] 42 U/L 10-42 [facility] Serum or plasma beta globuli n measurement by electrophoresis (mass/volume)Ordered By: Taylor Tijerina on 01-12-2022 Beta globulin Elph [Mass/Vol] 1.1 g/dL 0.7-1.3 [facility] Serum or plasma calcium jake urement (mass/volume)Ordered By: Taylor Tijerina on 01-12-2022 Calcium [Mass/Vol] 8.8 mg/dL 8.2-10.2 [facility] Serum or plasma chloride jie surement (moles/volume)Ordered By: Taylor Lilliana on 01-12-2022 Chloride [Moles/Vol] 84 mmol/L 95-114 [facility] Serum or plasma erythropoiet in (EPO) measurement (units/volume)Ordered By: Taylor Lilliana on 01-12-2022 Erythropoietin (EPO) Qn 745.9 mIU/mL 2.6-18.5 [facility] Comment on above: [facility] 800 Immunoassay System Values obtained with different assay methods or kits cannot be used interchangeably. Results cannot be interpreted as absolute evidence of the presence or absence of malignant disease. Performed at: [employer] [address] [id number] District Fire Management Officer: Carlos Mcintyre PhD, Phone: [phone] [facility] 800 Immunoassay SystemValues obtained with different assay methods or kits cannotbe used interchangeably. Results cannot be interpreted asabsolute evidence of the presence or absence of malignantdisease.Performed at: [employer] [address] [id number] Director: Carlos Mcintyre PhD, Phone: [phone] Serum or plasma gamma globul in measurement by electrophoresis (mass/volume)Ordered By: Taylor Tijerina on 01-12-2022 Gamma globulin Elph [Mass/Vol] 1.1 g/dL 0.4-1.8 [facility] Serum or plasma glucose jake urement (mass/volume)Ordered [...] on 01-12-2022 Potassium [Moles/Vol] 4.0 mmol/L 3.5-5.1 [facility] Serum or plasma sodium measu rement (moles/volume)Ordered By: Taylor Lilliana on 01-12-2022 Sodium [Moles/Vol] 125 mmol/L 136-146 [facility] Serum or plasma total biliru bin measurement (mass/volume)Ordered By: Taylor Lilliana on 01-12-2022 Bilirubin [Mass/Vol] 1.0 mg/dL 0.3-1.2 [facility] Serum or plasma total carbon dioxide measurement (moles/volume)Ordered By: Taylor Lilliana on 01-12-2022 CO2 [Moles/Vol] 28.7 mmol/L 22.0-30.0 [facility] Serum or plasma urea nitroge n measurement (mass/volume)Ordered By: Taylor Lilliana on 01-12-2022 Urea nitrogen [Mass/Vol] 9 mg/dL 9- [facility] BNPon 11-24-2021 Natriuretic peptide B (Bld) [Mass/Vol] 591.0 pg/mL Normal <=900.0 [facility] Comment on above: Performed By: #### C TIFFANY BNP #### [facility] [address] [place] [address] Dr. Good Montiel CBC AUTO DIFFon 11-24-2021 BASO # 0.1 103/ul Normal 0.0-0.1 [facility] Comment on above: Performed By: #### C TIFFANY CMADM #### [facility] [address] [address] [address] Good Montiel Basophils/100 WBC (Bld) 0.7 % Normal 0.2-2.0 [facility] Comment on above: Performed By: #### C TIFFANY CMADM #### [facility] [address] [place] [address] Dr. Good Montiel EO # 0.2 103/ul Normal 0.0-0.7 [facility] Comment on above: Performed By: #### C SERAFIN ALLEN #### [facility] [address] [address] [address] Good Montiel Eosinophils/100 WBC (Bld) 2.4 % Normal 0.9-7.0 [facility] Comment on above: Performed By: #### C MP, CMADM #### [facility] [address] [place] [address] Dr. Good Montiel Erythrocyte distribution width (RBC) [Ratio] 19.1 % Critically high 11.0-15.0 [facility] Comment on above: Performed By: #### C TIFFANY, CMADM #### [facility] [address] [place] [address] Dr. Good Montiel Hematocrit (Bld) [Volume fraction] 25.5 % Critically low 36.0-48.0 [facility] Comment on above: Performed By: #### C TIFFANY, CMADM #### [facility] [address] [place] [address] Dr. Good Montiel Hemoglobin (Bld) [Mass/Vol] 7.4 g/dL Critically low 12.0-16.0 [facility] Comment on above: Performed By: #### C TIFFANY, CMADM #### [facility] [address] [place] [address] Dr. Good Montiel IG # 0.05 10e3/ul Critically high 0.00-0.03 [facility] Comment on above: Performed By: #### C TIFFANY, CMADM #### [facility] [address] [place] [address] Dr. Good Montiel IG % 0.6 % Critically high 0.0-0.5 [facility] Comment on above: Performed By: #### C MP, CMADM #### [facility] [address] [place] [address] Dr. Good Montiel LYMPH # 1.7 103/ul Normal 1.2-3.8 [facility] Comment on above: Performed By: #### C TIFFANY, CMADM #### [facility] [address] [place] [address] Dr. Good Montiel Lymphocytes/100 WBC (Bld) 20.6 % Normal 20.5-60.0 [facility] Comment on above: Performed By: #### C TIFFANY, CMADM #### [facility] [address] [place] [address] Dr. Good Montiel MANUAL DIFF REQ NO Normal [facility] Comment on above: Performed By: #### C MP, CMADM #### [facility] [address] [place] [address] Dr. Good Montiel MCH (RBC) [Entitic mass] 18.9 pg Critically low 26.7-34.0 [facility] Comment on above: Performed By: #### C TIFFANY, CMADM #### [facility] [address] [place] [address] Dr. Good Montiel MCHC (RBC) [Mass/Vol] 29.0 g/dL Critically low 29.9-35.2 [facility] Comment on above: Performed By: #### C TIFFANY, CMADM #### [facility] [address] [place] [address] Dr. Good Montiel MCV (RBC) [Entitic vol] 65.2 fL Critically low 81.0-99. 0 [facility] Comment on above: Performed By: #### C TIFFANY, DOUGLASDM #### [facility] [address] [place] [address] Dr. Good Montiel MONO # 0.8 103/ul Normal 0.3-0.8 [facility] Comment on above: Performed By: #### C TIFFANY, CMADM #### [facility] [address] [place] [address] Dr. Good Montiel Monocytes/100 WBC (Bld) 9.4 % Normal 1.7-12.0 [facility] Comment on above: Performed By: #### C TIFFANY, CMADM #### [facility] [address] [place] [address] Dr. Good Montiel NEUT # 5.5 103/ul Normal 1.4-6.5 [facility] Comment on above: Performed By: #### C TIFFANY, CMADM #### [facility] [address] [place] [address] Dr. Good Montiel Neutrophils/100 WBC (Bld) 66.3 % Normal 43.0-75.0 [facility] Comment on above: Performed By: #### C TIFFANY, CMADM #### [facility] [address] [place] [address] Dr. Good Montiel Platelet mean volume (Bld) [Entitic vol] 9.1 fL Critically low 9.5-13.5 [facility] Comment on above: Performed By: #### C TIFFANY, CMADM #### [facility] [address] [place] [address] Dr. Good Montiel PLT 431 103/ul Normal 150-450 [facility] Comment on above: Performed By: #### C TIFFANY, CMADM #### [facility] [address] [place] [address] Dr. Good Montiel RBC 3.91 106/ul Critically low 4.20-5.40 [facility] Comment on above: Performed By: #### C TIFFANY, CMADM #### [facility] [address] [place] [address] Dr. Good Montiel WBC 8.3 103/ul Normal 4.0-11.0 [facility] Comment on above: Performed By: #### C TIFFANY, CMADM #### [facility] [address] [place] [address] Dr. Good Montiel [facility]13 SARS-CoV-2 (COVID-19) RNA FELECIA+probe Ql (Unsp spec) Not detected Normal NOT DETECTED [facility] Comment on above: Result Comment: When diagnostic [...] for this test is supported by the [place] of Health and Human Service's declaration that [...] used). Performed By: #### M MA2 #### [facility] [address] [place] [address] Dr. Good Montiel PROF 14(COMP METB)on 022 Albumin [Mass/Vol] 3.1 g/dL Critically low 3.4-5.0 [facility] Comment on above: Performed By: #### C MP, BNP #### [facility] [address] [place] [address] Dr. Good Montiel Albumin/Globulin [Mass ratio] 0.9 {ratio} Normal [facility] Comment on above: Performed By: #### C MP, BNP #### [facility] [address] [place] [address] Dr. Good Montiel ALP [Catalytic activity/Vol] 60 U/L Normal 46-116 [facility] Comment on above: Performed By: #### C MP, BNP #### [facility] [address] [place] [address] Dr. Good Montiel ALT [Catalytic activity/Vol] 30 U/L Normal 14-59 [facility] Comment on above: Performed By: #### C MP, BNP #### [facility] [address] [place] [address] Dr. Good Montiel Anion gap [Moles/Vol] 10.1 mmol/L Normal [facility] Comment on above: Performed By: #### C MP, BNP #### [facility] [address] [place] [address] Dr. Good Montiel AST [Catalytic activity/Vol] 32 U/L Normal 15-37 [facility] Comment on above: Performed By: #### C MP, BNP #### [facility] [address] [place] [address] Dr. Good Montiel Bilirubin [Mass/Vol] 0.7 mg/dL Normal 0.2-1.0 [facility] Comment on above: Performed By: #### C MP, BNP #### [facility] [address] [place] [address] Dr. Good Montiel Calcium [Mass/Vol] 8.7 mg/dL Normal 8.5-10.1 [facility] Comment on above: Performed By: #### C MP, BNP #### [facility] [address] [address] [address] Good Montiel Chloride [Moles/Vol] 93 mmol/L Critically low 98-107 [facility] Comment on above: Performed By: #### C MP, BNP #### [facility] [address] [place] [address] Dr. Good Montiel CO2 [Moles/Vol] 27.5 mmol/L Normal 21.0-32.0 [facility] Comment on above: Performed By: #### C MP, BNP #### [facility] [address] [place] [address] Dr. Good Montiel Creatinine [Mass/Vol] 0.80 mg/dL Normal 0.55-1.02 [facility] Comment on above: Performed By: #### C MP, BNP #### [facility] [address] [place] [address] Dr. Good Montiel EGFR-AF QATARI >60 Normal >=60 [facility] Comment on above: Performed By: #### C MP, BNP #### [facility] [address] [place] [address] Dr. Good Montiel EGFR-NON AF QATARI >60 Normal >=60 [facility] Comment on above: Performed By: #### C MP, BNP #### [facility] [address] [place] [address] Dr. Good Montiel Globulin (S) [Mass/Vol] 3.5 g/dL Normal [facility] Comment on above: Performed By: #### C MP, BNP #### [facility] [address] [place] [address] Dr. Good Montiel Glucose [Mass/Vol] 146 mg/dL Critically high 74-106 [facility] Comment on above: Performed By: #### C MP, BNP #### [facility] [address] [address] [address] Good Montiel Potassium [Moles/Vol] 3.6 mmol/L Normal 3.5-5.1 [facility] Comment on above: Performed By: #### C MP, BNP #### [facility] [address] [address] [address] Good Montiel Protein [Mass/Vol] 6.6 g/dL Normal 6.4-8.2 [facility] Comment on above: Performed By: #### C MP, BNP #### [facility] [address] [address] [address] Good Montiel Sodium [Moles/Vol] 127 mmol/L Critically low 136-145 [facility] Comment on above: Performed By: #### C MP, BNP #### [facility] [address] [address] [address] Good Montiel Urea nitrogen [Mass/Vol] 19.0 mg/dL Critically high 7.0-18.0 [facility] Comment on above: Performed By: #### C MP, BNP #### [facility] [address] [address] [address] Good Montiel Urea nitrogen/Creatinine [Mass ratio] 23.8 mg/mg Normal [facility] Comment on above: Performed By: #### C MP, BNP #### [facility] [address] [place] [address] Dr. Good Montiel XR CHEST 1 11-24-2021 [...] by: KETAN ALVAREZ Date: 2021-11-24 00:21 Normal [facility] CT LUNG CANCER SCREENINGon 0 11-10-2021 [...] mass, effusion, or pneumothorax. VASCULATURE: No abnormality. SCOTITE: Scattered stable lymph nodes MEDIASTINUM: Scattered stable [...] by: ARIAN VARGAS Date: 2021-11-10 10:55 Normal [facility] MAMM SCREEN 3D [place] CADon 11-10-2021 MAMM SCREEN 3D [place] CAD Patient: NUVIA MARTIN Exam Date: 11/10/2021 : 1945 Gender:F Ordering : DR LATONYA JOSEPH PA Admission #: [id number] Family : Order #: [id number] CLICK HERE TO VIEW EXAM RADIOLOGY REPORT [...] breast cancer at age 62. LOCATION: [facility] BREAST COMPOSITION: Scattered areas fibroglandular density. FINDINGS: [...] Vargas MD on 11/12/2021 at 08:03 Normal [facility] XR DEXA BONE DENSITYon 11-10 XR [...] by: ARIAN VARGAS Date: 2021-11-10 17:06 Normal [facility] Comprehensive Metabolic Pane bing 10-01-2021 Albumin [Mass/Vol] 3.9 g/dL Normal 3.6-5.1 [facility] [employer] Developer Comment on above: Performed By: #### C MP #### [facility] [address] [place], [place] [id number] Albumin/Globulin [Mass ratio] 1.4 {ratio} Normal 1.0-2.5 [facility] [employer] Comment on above: Performed By: #### C MP #### [facility] [address] [place], [place] [id number] ALP [Catalytic activity/Vol] 51 U/L Normal 35-119 [facility] Comment on above: Performed By: #### C MP #### [facility] [address] [place] [id number] ALT [Catalytic activity/Vol] 15 U/L Normal 6-33 [facility] Comment on above: Result Comment: 04/15 Female reference range changed. Performed By: #### C MP #### [facility] [address] [place] [id number] Anion gap [Moles/Vol] 18 mmol/L Normal 12-20 [facility] Comment on above: Result Comment: Effe ctive 05/21/2019 reference range changed. Performed By: #### C MP #### [facility] [address] [facility] [place] [id number] AST [Catalytic activity/Vol] 20 U/L Normal 9-34 [facility] Comment on above: Performed By: #### C MP #### [facility] [address] [facility] [place] [id number] BUN/CREA 18 Ratio Normal 6-22 [facility] Comment on above: Performed By: #### C MP #### [facility] [address] [facility] [place] [id number] Calcium [Mass/Vol] 9.8 mg/dL Normal 8.6-10.2 [facility] Comment on above: Performed By: #### C MP #### [facility] [address] [facility] [place] [id number] Chloride [Moles/Vol] 88 mmol/L Low 98-107 [facility] Comment on above: Performed By: #### C MP #### [facility] [address] [place] [id number] CO2 [Moles/Vol] 23 mmol/L Normal 20-31 [facility] Comment on above: Performed By: #### C MP #### [facility] [address] [facility] [place] [id number] Creatinine [Mass/Vol] 0.9 mg/dL Normal 0.6-1.4 [facility] Comment on above: Performed By: #### C MP #### [facility] [address] [place] [id number] eGFRAA 77 mL/min/1.73m2 Normal >60 [facility] Comment on above: Performed By: #### C MP #### [facility] [address] [place], [place] [id number] eGFRNAA 64 mL/min/1.73m2 Normal >60 [facility] Comment on above: Performed By: #### C MP #### [facility] [address] [place], [place] [id number] Globulin (S) [Mass/Vol] 2.7 g/dL Normal 1.9-3.7 [facility] Comment on above: Performed By: #### C MP #### [facility] [address] [place], [place] [id number] Glucose [Mass/Vol] 151 mg/dL High 65-99 [facility]ist Comment on above: Result Comment: For FASTING Glucose --- ADA reference ranges: Normal 65-99 mg/dl Prediabetes 100-125 Diabetes >/= 126 Performed By: #### C MP #### [facility] [address] [place], [place] [id number] Potassium [Moles/Vol] 4.5 mmol/L Normal 3.5-5.5 [facility] Comment on above: Performed By: #### C MP #### [facility] [address] [place], [place] [id number] Protein [Mass/Vol] 6.6 g/dL Normal 6.1-8.1 [facility] [employer] Comment on above: Performed By: #### C MP #### [facility] [address] [place], [place] [id number] Sodium [Moles/Vol] 125 mmol/L Low 135-146 [facility] [employer] Developer Comment on above: Performed By: #### C MP #### [facility] [address] [place], [place] [id number] TBIL <0.3 Normal [facility] Comment on above: Performed By: #### C MP #### [facility] [address] [place], [place] [id number] Urea nitrogen [Mass/Vol] 16 mg/dL Normal 7-25 [place] [employer] Developer Comment on above: Performed By: #### C TIFFANY #### [facility] [address] [place], [place] [id number] VITAMIN B6on 08-20-2021 Vitamin B6 50.1 ug/L Critically high 2.0-32.8 [facility] Comment on above: Result Comment: Ef fective August 17, 2021 Vitamin B6 reference interval will be changing to: 3.4 - 65.2 ug/L Deficiency: < 3.4 Marginal: 3.4 - 5.1 Adequate: > 5.1 Performed By: #### V ITAB6 ####[facility] [address] [place], [place] [address]GyDr. Good Montiel METHYLMALONIC ACID (MMA)on 0 08-18-2021 Methylmalonic Acid, Serum 327 nmol/L Normal 0-378 [facility] Comment on above: Performed By: #### M MA2 #### [facility] [address] [address] [address] Good Montiel IMMUNOFIX ELEC, PROTEIN ELEC URINEon 08-14-2021 Albumin, U 55.3 % Normal [facility] Comment on above: Performed By: #### C SERAFIN ALLEN #### [facility] [address] [address] [address] Good Montiel Oiwon-3-Tlemlusi, U 3.9 % Normal [facility] Comment on above: Performed By: #### C SERAFIN ALLEN #### [facility] [address] [address] [address] Good Montiel Ymlvn-7-Mbjoaktm, U 6.7 % Normal [facility] Comment on above: Performed By: #### C DOUGLAS ALLENDM #### [facility] [address] [address] [address] Good Montiel Beta Globulin, U 12.9 % Normal [facility] Comment on above: Performed By: #### C SERAFIN ALLEN #### [facility] [address] [address] [address] Good Montiel Gamma Globulin, U 21.1 % Normal [facility] Comment on above: Performed By: #### C MP, CMADM #### [facility] [address] [place] [address] Dr. Good Montiel Immunofixation Result, Urine Comment: Normal [facility] Comment on above: Result Comment: Pres ence of monoclonal protein is unclear at this time. Suggest repeat in 3 to 6 months if clinically indicated. Performed By: #### C MP, CMADM #### [facility] [address] [place] [address] Dr. Good Montiel M-Brooks, % Not Observed Normal Not Observed [facility] Comment on above: Performed By: #### C MP, CMADM #### [facility] [address] [place] [address] Dr. Good Montiel Note: Comment Normal [facility] Comment on above: Result Comment: Prot ein electrophoresis scan will follow via computer, mail, or green end worker delivery. Performed By: #### C MP, CMADM #### [facility] [address] [place] [address] Dr. Good Montiel PDF . Normal [facility] Comment on above: Performed By: #### C MP, CMADM #### [facility] [address] [place] [address] Dr. Good Montiel Protein (U) [Mass/Vol] 12.2 mg/dL Normal Not Estab. [facility] Comment on above: Performed By: #### C MP, CMADM #### [facility] [address] [place] [address] Dr. Good Montiel WEST NILE VIRUS AB (IGG AND IGM)on 08-14-2021 West Nile Virus, IgG Negative Normal Negative [facility] Comment on above: Result Comment: No d etectable West Nile Virus IgG Antibody. If a recent infection is suspected, another specimen should be submitted for testing within 7-14 days. Performed By: #### C MP, CMADM #### [facility] [address] [place] [address] Dr. Good Montiel West Nile Virus, IgM Negative Normal Negative [facility] Comment on above: Result Comment: No d etectable West Nile Virus IgM Antibody. If a recent infection is suspected, another specimen should be submitted for testing within 7-14 days. Performed By: #### C MP, CMADM #### [facility] [address] [address] [address] Good Montiel JAY EIA W/REFLEX 5 BIOMARKER Son 08-13-2021 JAY Direct Negative Normal Negative [facility] Comment on above: Performed By: #### A NARF ####[facility] [address] [address]Dr. Good Montiel C-REACTIVE PROTEINS (HS)on 0 08-13-2021 C-Reactive Protein, Cardiac 0.55 mg/L Normal 0.00-3.00 [facility] Comment on above: Result Comment: Rela tive Risk for Future Cardiovascular Event Low <1.00 Average 1.00 - 3.00 High >3.00 Performed By: #### C RPHS ####[facility] [address] [address]Dr. Good Montiel HOMOCYSTEINEon 08-13-2021 Homocyst(e)ine, Plasma 15.3 umol/L Normal 0.0-19.2 [facility] Comment on above: Performed By: #### H OMCY #### [facility] [address] [place] [address] Dr. Good Montiel IMMUNOFIXATION ELEC, PROTEIN ELECon 08-13-2021 Albumin [Mass/Vol] 3.7 g/dL Normal 2.9-4.4 [facility] Comment on above: Performed By: #### Hakeem DU2 #### [facility] [address] [place] [address] Dr. Good Montiel Albumin/Globulin [Mass ratio] 1.1 {ratio} Normal 0.7-1.7 [facility] Comment on above: Performed By: #### M ANA LAURA2 #### [facility] [address] [place] [address] Dr. Good Montiel Qpevl-0-Gaqjophd 0.2 g/dL Normal 0.0-0.4 [facility] Comment on above: Performed By: #### Hakeem DU2 #### [facility] [address] [place] [address] Dr. Good Montiel Fuqbx-9-Nlgkribq 0.9 g/dL Normal 0.4-1.0 [facility] Comment on above: Performed By: #### Hakeem MA2 #### [facility] [address] [address] [address] Good Montiel Beta Globulin 1.2 g/dL Normal 0.7-1.3 [facility] Comment on above: Performed By: #### Hakeem MA2 #### [facility] [address] [address] [address] Good Montiel Gamma Globulin 1.2 g/dL Normal 0.4-1.8 [facility] Comment on above: Performed By: #### Hakeem MA2 #### [facility] [address] [address] [address] Good Montiel Globulin (S) [Mass/Vol] 3.4 g/dL Normal 2.2-3.9 [facility] Comment on above: Performed By: #### Hakeem MA2 #### [facility] [address] [place] [address] Dr. Good Montiel Immunofixation Result, Serum Comment: Normal [facility] Comment on above: Result Comment: Pres ence of monoclonal protein is unclear at this time. Suggest repeat in 3 to 6 months if clinically indicated. Performed By: #### Hakeem MA2 #### [facility] [address] [place] [address] Dr. Good Montiel Immunoglobulin A, Qn, Serum 269 mg/dL Normal 64-422 [facility] Comment on above: Performed By: #### Hakeem MA2 #### [facility] [address] [address] [address] Good Montiel Immunoglobulin G, Qn, Serum 1056 mg/dL Normal 586-1602 [facility] Comment on above: Performed By: #### Hakeem MA2 #### [facility] [address] [address] [address] Good Montiel Immunoglobulin M, Qn, Serum 201 mg/dL Normal 26-217 [facility] Comment on above: Performed By: #### Hakeem MA2 #### [facility] [address] [address] [address] Good Montiel M-Brooks Comment: Normal Not Observed [facility] Comment on above: Result Comment: ASYM METRICAL GAMMA Performed By: #### M MA2 #### [facility] [address] [address] [address] Good Montiel PDF . Normal [facility] Comment on above: Performed By: #### M MA2 #### [facility] [address] [address] [address] Good Montiel Please note: Comment Normal [facility] Comment on above: Result Comment: Prot ein electrophoresis scan will follow via computer, mail, or green end worker delivery. Performed By: #### M MA2 #### [facility] [address] [address] [address] Good Montiel Protein [Mass/Vol] 7.1 g/dL Normal 6.0-8.5 [facility] Comment on above: Performed By: #### M MA2 #### [facility] [address] [address] [address] Good Montiel LYME DISEASE AB EIA W REFLEX on 08-13-2021 Lyme Total Antibody,EIA Negative Normal Negative T [facility] Comment on above: Result Comment: Lyme Antibody Negative No laboratory evidence of infection with B. burgdorferi (Lyme disease). Negative results may occur in patients recently infected (greater than or equal to 14 days) with B. burgdorferi. If recent infection is suspected, repeat testing on a new sample collected in 7 to 14 days is recommended. Performed By: #### L YMA ####[facility] [address] [address]Dr. Good Montiel RHEUMATOID FACTORon 08-14-19 22 RA Latex Turbid. 10.1 IU/mL Normal <14.0 [facility] Comment on above: Performed By: #### C MP, CMADM #### [facility] [address] [address] [address] Good Montiel RPR QUANTon 08-13-2021 Rapid Plasma Reagin, Quant Non-Reactive Normal NonRea<1:1 [facility] Comment on above: Result Comment: Plea se Note: This test does not meet current guidelines for screening and diagnosis of syphilis. This test is intended for following treatment response in patients being treated for syphilis infection. To screen for syphilis infection, a reflex cascade that includes both RPR and a treponema-specific assay should be utilized, such as Treponema pallidum (Syphilis) Screening [place] (607307) or Rapid Plasma Reagin (RPR) Test With Reflex to Quantitative RPR and Confirmatory Treponema pallidum Antibodies (327793). Performed By: #### C SERAFIN ALLEN #### [facility] [address] [place] [address] Dr. Good Montiel FREE T4on 08-12-2021 Free T4 [Mass/Vol] 1.03 ng/dL Normal 0.78-2.19 [facility] Comment on above: Performed By: #### B 12FOL, FT4 ####[facility] [address] [place], [place] [address]Dr. Good Montiel SED RATE WESTERGRENon 2021 SED RATE 17 mm/hr Normal <=30 [facility] Comment on above: Performed By: #### C SERAFIN ALLEN #### [facility] [address] [place] [address] Dr. Good Montiel TSHon 08-12-2021 TSH 3.737 uIU/mL Normal 0.470-4.680 [facility] Comment on above: Performed By: #### T SH ####[facility] [address] [place], [place] [address]Dr. Good Montiel TSH RANGE SEE BELOW Normal [facility] Comment on above: Result Comment: <0.3 4 UIU/ml HYPERTHYROID 0.34-5.60 UIU/ml EUTHYROID >5.60 UIU/ml HYPOTHYROID Performed By: #### T SH ####[facility] [address] [place], [place] [address]Dr. Good Montiel VIT B12 AND FOLATEon 022 Cobalamin (Vitamin B12) [Mass/Vol] 741.0 pg/mL Normal 239.0-931.0 [facility] Comment on above: Performed By: #### B 12FOL, FT4 ####[facility] [address] [id number]. Good Montiel FOLATE >20.00 Normal >=2.76 [facility] Comment on above: Performed By: #### B 12FOL, FT4 ####[facility] [address] [id number]. Good Montiel CBC AUTO DIFFon 06-10-2021 BASO # 0.1 103/ul Normal 0.0-0.1 [facility] Comment on above: Performed By: #### C BC ####[facility] [address] [id number]. Good Montiel Basophils/100 WBC (Bld) 0.7 % Normal 0.2-2.0 [facility] Comment on above: Performed By: #### C BC ####[facility] [address] [place], [place] [address]Dr. Good Monteil EO # 0.2 103/ul Normal 0.0-0.7 [facility] Comment on above: Performed By: #### C BC ####[facility] [address] [place], [place] [address]Dr. Good Montiel Eosinophils/100 WBC (Bld) 1.6 % Normal 0.9-7.0 [facility] Comment on above: Performed By: #### C BC ####[facility] [address] [place], [place] [address]Dr. Good Montiel Erythrocyte distribution width (RBC) [Ratio] 18.7 % Critically high 11.0-15.0 [facility] Comment on above: Performed By: #### C BC ####[facility] [address] [place], [place] [address]Dr. Good Montiel Hematocrit (Bld) [Volume fraction] 29.6 % Critically low 36.0-48.0 [facility] Comment on above: Performed By: #### C BC ####[facility] [address] [place], [place] [address]Dr. Good Montiel Hemoglobin (Bld) [Mass/Vol] 9.1 g/dL Critically low 12.0-16.0 [facility] Comment on above: Performed By: #### C BC ####[facility] [address] [address]DrSmooth Montiel IG # 0.06 10e3/ul Critically high 0.00-0.03 [facility] Comment on above: Performed By: #### C BC ####[facility] [address] [address]DrSmooth Montiel IG % 0.6 % Critically high 0.0-0.5 [facility] Comment on above: Performed By: #### C BC ####[facility] [address] [address]DrSmooth Montiel LYMPH # 2.0 103/ul Normal 1.2-3.8 [facility] Comment on above: Performed By: #### C BC ####[facility] [address] [address]DrSmooth Montiel Lymphocytes/100 WBC (Bld) 18.5 % Critically low 20.5-60.0 [facility] Comment on above: Performed By: #### C BC ####[facility] [address] [address]DrSmooth Montiel MANUAL DIFF REQ NO Normal [facility] Comment on above: Performed By: #### C BC ####[facility] [address] [address]DrSmooth Montiel MCH (RBC) [Entitic mass] 21.8 pg Critically low 26.7-34.0 [facility] Comment on above: Performed By: #### C BC ####[facility] [address] [id number] Montiel MCHC (RBC) [Mass/Vol] 30.7 g/dL Normal 29.9-35.2 [facility] Comment on above: Performed By: #### C BC ####[facility] [address] [id number] Montiel MCV (RBC) [Entitic vol] 71.0 fL Critically low 81.0-99. 0 [facility] Comment on above: Performed By: #### C BC ####[facility] [address] [id number]. Good Montiel MONO # 0.8 103/ul Normal 0.3-0.8 [facility] Comment on above: Performed By: #### C BC ####[facility] [address] [id number]. Good Montiel Monocytes/100 WBC (Bld) 7.0 % Normal 1.7-12.0 [facility] Comment on above: Performed By: #### C BC ####[facility] [address] [address]Dr. Good Montiel NEUT # 7.6 103/ul Critically high 1.4-6.5 [facility] Comment on above: Performed By: #### C BC ####[facility] [address] [address]Dr. Good Montiel Neutrophils/100 WBC (Bld) 71.6 % Normal 43.0-75.0 [facility] Comment on above: Performed By: #### C BC ####[facility] [address] [id number]. Good Montiel Platelet mean volume (Bld) [Entitic vol] 8.4 fL Critically low 9.5-13.5 [facility] Comment on above: Performed By: #### C BC ####[facility] [address] [id number]. Good Montiel PLT 442 103/ul Normal 150-450 [facility] Comment on above: Performed By: #### C BC ####[facility] [address] [id number]. Good Montiel RBC 4.17 106/ul Critically low 4.20-5.40 [facility] Comment on above: Performed By: #### C BC ####[facility] [address] [id number]. Rejoo Dinesh WBC 10.7 103/ul Normal 4.0-11.0 [facility] Comment on above: Performed By: #### C BC ####[facility] Ijtx[address] [place], [place] [address]Dr. Good Montiel CRPon 06-10-2021 CRP [Mass/Vol] mg/L Normal <=1.0 [facility] Comment on above: Performed By: #### M MA2 #### [facility] [address] [address] [address] Good Montiel ER URINE PROFILEon 2 Bilirubin Ql (U) Negative Normal NEGATIVE [facility] Comment on above: Performed By: #### E RUR ####[facility] [address] [place], [place] [address]Dr. Good Montiel Clarity (U) CLEAR Normal CLEAR [facility] Comment on above: Performed By: #### E RUR ####[facility] [address] [place], [place] [address]Dr. Good Montiel Color (U) YELLOW Normal YELLOW [facility] Comment on above: Performed By: #### E RUR ####[facility] [address]qfeweb[address] [place], [place] [address]Dr. Good AGUILARD A micrscopic examination will be performed if indicated. Normal [facility] Comment on above: Performed By: #### E RUR ####[facility] [address] [place], [place] [address]Dr. Good Montiel Glucose Ql (U) Negative Normal NEGATIVE The [facility] Comment on above: Performed By: #### E RUR ####[facility] Tuoxm[address] [place], [place] [address]Dr. Good Montiel Hemoglobin Ql (U) Negative Normal NEGATIVE [facility] Comment on above: Performed By: #### E RUR ####[facility] Gmez[address] [place], [place] [address]Dr. Good Montiel Ketones Ql (U) Negative Normal NEGATIVE The [facility] Comment on above: Performed By: #### E RUR ####[facility] Jy[address]zn[address] [place], [place] [address]Dr. Good Montiel LEUKOCYTES Negative Normal NEGATIVE [facility] Comment on above: Performed By: #### E RUR ####[facility] [address] [address]Dr. Good Montiel Nitrite Ql (U) Negative Normal NEGATIVE [facility] Comment on above: Performed By: #### E RUR ####[facility] [address] [address]Dr. Good Montiel pH (U) 6.5 [pH] Normal 5-9 [facility] Comment on above: Performed By: #### E RUR ####[facility] Ne[address] [place], [place] [address]Dr. Good Montiel SPEC GRAVITY 1.010 Normal 1.005-<=1.02 5 [facility] Comment on above: Performed By: #### E RUR ####[facility] Xnkuslisxc[address] [place], [place] [address]Dr. Good Montiel UA PROTEIN Negative Normal NEGATIVE/ TRACE [facility] Comment on above: Performed By: #### E RUR ####[facility] [address]xx[address] [place], [place] [address]Dr. Good Montiel UR MICRO IND NOT INDICATED Normal [facility] Comment on above: Performed By: #### E RUR ####[facility] Y[address] [place], [place] [address]Dr. Good Montiel Urobilinogen Qn (U) 0.2 {Momo'U}/dL Normal 0.2 - 1. 0 [facility] Comment on above: Performed By: #### E RUR ####[facility] [address] [place], [place] [address]Dr. Good Montiel LACTATE/LACTIC ACIDon 2021 Lactate [Moles/Vol] 1.9 mmol/L Normal 0.7-2.0 [facility] Healthcare Comment on above: Performed By: #### L ACT ####[facility] [address] [place], [place] [address]DrSmooth Montiel PROF 14(COMP METB)on 022 Albumin [Mass/Vol] 3.0 g/dL Critically low 3.5-5.0 [facility] Comment on above: Performed By: #### M MA2 #### [facility] [address] [place] [address] Dr. Good Montiel Albumin/Globulin [Mass ratio] 0.9 {ratio} Normal [facility] Comment on above: Performed By: #### M MA2 #### [facility] [address] [address] [address] Good Montiel ALP [Catalytic activity/Vol] 36 U/L Critically low 38-126 [facility] Comment on above: Performed By: #### M MA2 #### [facility] [address] [place] [address] Dr. Good Montiel ALT [Catalytic activity/Vol] 26 U/L Normal 9-52 [facility] Comment on above: Performed By: #### Hakeem MA2 #### [facility] [address] [address] [address] Good Montiel Anion gap [Moles/Vol] 12.2 mmol/L Normal [facility] Comment on above: Performed By: #### M MA2 #### [facility] [address] [place] [address] Dr. Good Montiel AST [Catalytic activity/Vol] 23 U/L Normal 14-36 [facility] Comment on above: Performed By: #### M MA2 #### [facility] [address] [place] [address] Dr. Good Montiel Bilirubin [Mass/Vol] 0.4 mg/dL Normal 0.2-1.3 [facility] Comment on above: Performed By: #### M MA2 #### [facility] [address] [address] [address] Good Montiel Calcium [Mass/Vol] 8.5 mg/dL Normal 8.4-10.2 [facility] Comment on above: Performed By: #### M MA2 #### [facility] [address] [place] [address] Dr. Good Montile Chloride [Moles/Vol] 93 mmol/L Critically low 98-107 [facility] Comment on above: Performed By: #### M MA2 #### [facility] [address] [address] [address] Good Montiel CO2 [Moles/Vol] 27.6 mmol/L Normal 22.0-30.0 [facility] Comment on above: Performed By: #### M MA2 #### [facility] [address] [address] [address] Good Montiel Creatinine [Mass/Vol] 0.78 mg/dL Normal 0.52-1.04 [facility] Comment on above: Performed By: #### M MA2 #### [facility] [address] [address] [address] Good Montiel EGFR-AF QATARI >60 Normal >=60 [facility] Comment on above: Performed By: #### M MA2 #### [facility] [address] [address] [address] Good Montiel EGFR-NON AF QATARI >60 Normal >=60 [facility] Comment on above: Performed By: #### M MA2 #### [facility] [address] [address] [address] Good Montiel Globulin (S) [Mass/Vol] 3.2 g/dL Normal [facility] Comment on above: Performed By: #### M MA2 #### [facility] [address] [address] [address] Good Montiel Glucose [Mass/Vol] 111 mg/dL Critically high 74-106 [facility] Comment on above: Performed By: #### M MA2 #### [facility] [address] [address] [address] Good Montiel Potassium [Moles/Vol] 3.8 mmol/L Normal 3.4-5.0 [facility] Comment on above: Performed By: #### M MA2 #### [facility] [address] [address] [address] Good Montiel Protein [Mass/Vol] 6.2 g/dL Normal 6.1-8.2 [facility] Comment on above: Performed By: #### M MA2 #### [facility] [address] [address] [address] Good Montiel Sodium [Moles/Vol] 129 mmol/L Critically low 137-145 [facility] Comment on above: Performed By: #### M MA2 #### [facility] [address] [address] [address] Good Montiel Urea nitrogen [Mass/Vol] 17.0 mg/dL Normal 7.0-17.0 [facility] Comment on above: Performed By: #### M MA2 #### [facility] [address] [address] [address] Good Montiel Urea nitrogen/Creatinine [Mass ratio] 21.8 mg/mg Normal [facility] Comment on above: Performed By: #### M MA2 #### [facility] [address] [place] [address] Dr. Good Montiel TROPONIN, HIGH SENSITIVITYon 06-10-2021 HSTROP 9.8 pg/mL Normal 4.0-35.5 [facility] Comment on above: Result Comment: CUT- OFF POINTS HAVE BEEN ESTABLISHED BASED ON THE FOURTH UNIVERSAL DEFINITIONS OF MYOCARDIAL INFARCTION. THE UPPER REFERENCE LIMIT (URL) OF TROPONIN, DEFINED THE 99TH PERCENTILE OF cTnI DISTRIBUTION IN A REFERENCE POPULATION, HAS BEEN CONFIRMED THE DECISION THRESHOLD FOR SD DIAGNOSIS. Performed By: #### M MA2 #### [facility] [address] [place] [address] Dr. Good Montiel TSHon 06-10-2021 TSH 7.927 uIU/mL Critically high 0.470-4.680 [facility] Comment on above: Performed By: #### M MA2 #### [facility] [address] [address] [address] Good Montiel TSH RANGE SEE BELOW Normal [facility] Comment on above: Result Comment: <0.3 4 UIU/ml HYPERTHYROID 0.34-5.60 UIU/ml EUTHYROID >5.60 UIU/ml HYPOTHYROID Performed By: #### Hakeem MA2 #### [facility] [address] [place] [address] Dr. Good Montiel CBC AUTO DIFFon 06-06-2021 BASO # 0.1 103/ul Normal 0.0-0.1 [facility] Comment on above: Performed By: #### C TIFFANY, CMADM #### [facility] [address] [place] [address] Dr. Good Montiel Basophils/100 WBC (Bld) 0.7 % Normal 0.2-2.0 [facility] Comment on above: Performed By: #### C TIFFANY, CMADM #### [facility] [address] [place] [address] Dr. Good Montiel EO # 0.2 103/ul Normal 0.0-0.7 [facility] Comment on above: Performed By: #### C TIFFANY, DOUGLASDM #### [facility] [address] [place] [address] Dr. Good Montiel Eosinophils/100 WBC (Bld) 2.5 % Normal 0.9-7.0 [facility] Comment on above: Performed By: #### C TIFFANY, CMADM #### [facility] [address] [place] [address] Dr. Good Montiel Erythrocyte distribution width (RBC) [Ratio] 18.5 % Critically high 11.0-15.0 [facility] Comment on above: Performed By: #### C TIFFANY, CMADM #### [facility] [address] [place] [address] Dr. Good Montiel Hematocrit (Bld) [Volume fraction] 30.1 % Critically low 36.0-48.0 [facility] Comment on above: Performed By: #### C TIFFANY, CMADM #### [facility] [address] [place] [address] Dr. Good Montiel Hemoglobin (Bld) [Mass/Vol] 9.3 g/dL Critically low 12.0-16.0 [facility] Comment on above: Performed By: #### C TIFFANY, CMADM #### [facility] [address] [place] [address] Dr. Good Montiel IG # 0.06 10e3/ul Critically high 0.00-0.03 [facility] Comment on above: Performed By: #### C MP, CMADM #### [facility] [address] [address] [address] Good Montiel IG % 0.7 % Critically high 0.0-0.5 [facility] Comment on above: Performed By: #### C MP, CMADM #### [facility] [address] [address] [address] Good Montiel LYMPH # 2.0 103/ul Normal 1.2-3.8 [facility] Comment on above: Performed By: #### C MP, CMADM #### [facility] [address] [address] [address] Good Montiel Lymphocytes/100 WBC (Bld) 23.0 % Normal 20.5-60.0 [facility] Comment on above: Performed By: #### C MP, CMADM #### [facility] [address] [address] [address] Good Montiel MANUAL DIFF REQ NO Normal [facility] Comment on above: Performed By: #### C MP, CMADM #### [facility] [address] [address] [address] Good Montiel MCH (RBC) [Entitic mass] 21.9 pg Critically low 26.7-34.0 [facility] Comment on above: Performed By: #### C MP, CMADM #### [facility] [address] [address] [address] Good Montiel MCHC (RBC) [Mass/Vol] 30.9 g/dL Normal 29.9-35.2 [facility] Comment on above: Performed By: #### C MP, CMADM #### [facility] [address] [address] [address] Good Montiel MCV (RBC) [Entitic vol] 70.8 fL Critically low 81.0-99. 0 [facility] Comment on above: Performed By: #### C MP, CMADM #### [facility] [address] [address] [address] Good Montiel MONO # 1.0 103/ul Critically high 0.3-0.8 [facility] Comment on above: Performed By: #### C TIFFANY, SERAFIN #### [facility] [address] [place] [address] Dr. Good Montiel Monocytes/100 WBC (Bld) 11.3 % Normal 1.7-12.0 [facility] Comment on above: Performed By: #### C TIFFANY, CMADM #### [facility] [address] [place] [address] Dr. Godo Montiel NEUT # 5.2 103/ul Normal 1.4-6.5 [facility] Comment on above: Performed By: #### C DOUGLAS ALLENDM #### [facility] [address] [place] [address] Dr. Good Montiel Neutrophils/100 WBC (Bld) 61.8 % Normal 43.0-75.0 [facility] Comment on above: Performed By: #### C DOUGLAS ALLENDM #### [facility] [address] [place] [address] Dr. Good Montiel Platelet mean volume (Bld) [Entitic vol] 8.5 fL Critically low 9.5-13.5 [facility] Comment on above: Performed By: #### C SERAFIN ALLEN #### [facility] [address] [place] [address] Dr. Good Montiel PLT 455 103/ul Critically high 150-450 [facility] Comment on above: Performed By: #### C DOUGLAS ALLENDM #### [facility] [address] [place] [address] Dr. Good Montiel RBC 4.25 106/ul Normal 4.20-5.40 [facility] Comment on above: Performed By: #### C DOUGLAS ALLENDM #### [facility] [address] [place] [address] Dr. Good Montiel WBC 8.5 103/ul Normal 4.0-11.0 [facility] Comment on above: Performed By: #### C SERAFIN ALLEN #### [facility] [address] [place] [address] Dr. Good Montiel POINT OF CARE GLUCOSEon 05-17 Glucose [Mass/Vol] 164 mg/dL Critically high 74-106 [facility] Comment on above: Performed By: #### C SERAFIN ALLEN #### [facility] [address] [place] [address] Dr. Good Montiel PROF 14(COMP METB)on 022 Albumin [Mass/Vol] 3.2 g/dL Critically low 3.5-5.0 [facility] Comment on above: Performed By: #### M MA2 #### [facility] [address] [place] [address] Dr. Good Montiel Albumin/Globulin [Mass ratio] 1.1 {ratio} Normal [facility] Comment on above: Performed By: #### M MA2 #### [facility] [address] [place] [address] Dr. Good Montiel ALP [Catalytic activity/Vol] 37 U/L Critically low 38-126 [facility] Comment on above: Performed By: #### M MA2 #### [facility] [address] [place] [address] Dr. Good Montiel ALT [Catalytic activity/Vol] 26 U/L Normal 9-52 [facility] Comment on above: Performed By: #### M MA2 #### [facility] [address] [place] [address] Dr. Good Montiel Anion gap [Moles/Vol] 11.5 mmol/L Normal [facility] Comment on above: Performed By: #### M MA2 #### [facility] [address] [place] [address] Dr. Good Montiel AST [Catalytic activity/Vol] 25 U/L Normal 14-36 [facility] Comment on above: Performed By: #### M MA2 #### [facility] [address] [place] [address] Dr. Good Montiel Bilirubin [Mass/Vol] 0.4 mg/dL Normal 0.2-1.3 [facility] Comment on above: Performed By: #### M MA2 #### [facility] [address] [address] [address] Good Montiel Calcium [Mass/Vol] 8.8 mg/dL Normal 8.4-10.2 [facility] Comment on above: Performed By: #### M MA2 #### [facility] [address] [address] [address] Good Montiel Chloride [Moles/Vol] 93 mmol/L Critically low 98-107 [facility] Comment on above: Performed By: #### M MA2 #### [facility] [address] [place] [address] Dr. Good Montiel CO2 [Moles/Vol] 28.2 mmol/L Normal 22.0-30.0 [facility] Comment on above: Performed By: #### Hakeem MA2 #### [facility] [address] [place] [address] Dr. Good Montiel Creatinine [Mass/Vol] 0.57 mg/dL Normal 0.52-1.04 [facility] Comment on above: Performed By: #### Hakeem MA2 #### [facility] [address] [address] [address] Good Montiel EGFR-AF QATARI >60 Normal >=60 [facility] Comment on above: Performed By: #### Hakeem MA2 #### [facility] [address] [place] [address] Dr. Good Montiel EGFR-NON AF QATARI >60 Normal >=60 [facility] Comment on above: Performed By: #### Hakeem MA2 #### [facility] [address] [address] [address] Good Montiel Globulin (S) [Mass/Vol] 3.0 g/dL Normal [facility] Comment on above: Performed By: #### M MA2 #### [facility] [address] [place] [address] Dr. Good Montiel Glucose [Mass/Vol] 106 mg/dL Normal 74-106 [facility] Comment on above: Performed By: #### M MA2 #### [facility] [address] [place] [address] Dr. Good Montiel Potassium [Moles/Vol] 3.7 mmol/L Normal 3.4-5.0 [facility] Comment on above: Performed By: #### M MA2 #### [facility] [address] [address] [address] Good Montiel Protein [Mass/Vol] 6.2 g/dL Normal 6.1-8.2 [facility] Comment on above: Performed By: #### Hakeem MA2 #### [facility] [address] [address] [address] Good Montiel Sodium [Moles/Vol] 129 mmol/L Critically low 137-145 [facility] Comment on above: Performed By: #### Hakeem DU2 #### [facility] [address] [address] [address] Good Montiel Urea nitrogen [Mass/Vol] 14.0 mg/dL Normal 7.0-17.0 [facility] Comment on above: Performed By: #### Hakeem DU2 #### [facility] [address] [address] [address] Good Montiel Urea nitrogen/Creatinine [Mass ratio] 24.6 mg/mg Normal [facility] Comment on above: Performed By: #### Hakeem DU2 #### [facility] [address] [address] [address] Good Montiel CARDIAC LOGAN ADMITon 022 CK [Catalytic activity/Vol] 55 U/L Normal 30-135 [facility] Comment on above: Performed By: #### SERAFIN Portillo MP #### [facility] [address] [place] [address] Dr. Good Montiel CK.MB [Mass/Vol] 2.09 ng/mL Normal <=2.37 [facility] Comment on above: Performed By: #### SERAFIN Portillo MP #### [facility] [address] [place] [address] Dr. Good Montiel HSTROP 10.2 pg/mL Normal 4.0-35.5 [facility] Comment on above: Result Comment: CUT- OFF POINTS HAVE BEEN ESTABLISHED BASED ON THE FOURTH UNIVERSAL DEFINITIONS OF MYOCARDIAL INFARCTION. THE UPPER REFERENCE LIMIT (URL) OF TROPONIN, DEFINED THE 99TH PERCENTILE OF cTnI DISTRIBUTION IN A REFERENCE POPULATION, HAS BEEN CONFIRMED THE DECISION THRESHOLD FOR SD DIAGNOSIS. Performed By: #### C SERAFIN ALLEN #### [facility] [address] [address] [address] Good Montiel CLIF 61.0 ng/mL Normal <=61.5 [facility] Comment on above: Performed By: #### C SERAFIN ALLEN #### [facility] [address] [address] [address] Good Montiel CBC AUTO DIFFon 06-05-2021 BASO # 0.1 103/ul Normal 0.0-0.1 [facility] Comment on above: Performed By: #### C BC ####[facility] [address] [address]DrSmooth Montiel Basophils/100 WBC (Bld) 0.8 % Normal 0.2-2.0 [facility] Comment on above: Performed By: #### C BC ####[facility] [address] [address]Dr. Good Montiel EO # 0.2 103/ul Normal 0.0-0.7 [facility] Comment on above: Performed By: #### C BC ####[facility] [address] [address]Dr. Good Montiel Eosinophils/100 WBC (Bld) 2.2 % Normal 0.9-7.0 [facility] Comment on above: Performed By: #### C BC ####[facility] [address] [address]DrSmooth Montiel Erythrocyte distribution width (RBC) [Ratio] 18.2 % Critically high 11.0-15.0 [facility] Comment on above: Performed By: #### C BC ####[facility] [address] [address]DrSmooth Montiel Hematocrit (Bld) [Volume fraction] 31.1 % Critically low 36.0-48.0 [facility] Comment on above: Performed By: #### C BC ####[facility] [address] [id number][address] Good Montiel Hemoglobin (Bld) [Mass/Vol] 9.6 g/dL Critically low 12.0-16.0 [facility] Comment on above: Performed By: #### C BC ####[facility] [address] [id number][address] Good Montiel IG # 0.07 10e3/ul Critically high 0.00-0.03 [facility] Comment on above: Performed By: #### C BC ####[facility] [address] [address]Dr. Good Montiel IG % 0.9 % Critically high 0.0-0.5 [facility] Comment on above: Performed By: #### C BC ####[facility] [address] [address]Dr. Good Dinesh LYMPH # 1.3 103/ul Normal 1.2-3.8 [facility] Comment on above: Performed By: #### C BC ####[facility] [address] [address]Dr. Good Montiel Lymphocytes/100 WBC (Bld) 17.2 % Critically low 20.5-60.0 [facility] Comment on above: Performed By: #### C BC ####[facility] [address] [address]Dr. Good Montiel MANUAL DIFF REQ NO Normal [facility] Comment on above: Performed By: #### C BC ####[facility] [address] [place], [place] [address]Dr. Good Montiel MCH (RBC) [Entitic mass] 21.8 pg Critically low 26.7-34.0 [facility] Comment on above: Performed By: #### C BC ####[facility] [address] [place], [place] [address]Dr. Good Montiel MCHC (RBC) [Mass/Vol] 30.9 g/dL Normal 29.9-35.2 [facility] Comment on above: Performed By: #### C BC ####[facility] [address] [place], [place] [address]St. Good Montiel MCV (RBC) [Entitic vol] 70.5 fL Critically low 81.0-99. 0 [facility] Comment on above: Performed By: #### C BC ####[facility] [address] [place], [place] [address]Tk. Good Montiel MONO # 0.6 103/ul Normal 0.3-0.8 [facility] Comment on above: Performed By: #### C BC ####[facility] [address] [id number]. Good Montiel Monocytes/100 WBC (Bld) 8.3 % Normal 1.7-12.0 [facility] Comment on above: Performed By: #### C BC ####[facility] [address] [id number]. Good Montiel NEUT # 5.3 103/ul Normal 1.4-6.5 [facility] Comment on above: Performed By: #### C BC ####[facility] [address] [id number]. Good Montiel Neutrophils/100 WBC (Bld) 70.6 % Normal 43.0-75.0 [facility] Comment on above: Performed By: #### C BC ####[facility] [address] [id number]. Good Montiel Platelet mean volume (Bld) [Entitic vol] 8.3 fL Critically low 9.5-13.5 [facility] Comment on above: Performed By: #### C BC ####[facility] [address] [id number]. Good Montiel PLT 463 103/ul Critically high 150-450 [facility] Comment on above: Performed By: #### C BC ####[facility] [address] [place], [place] [address]Uf. Good Montiel RBC 4.41 106/ul Normal 4.20-5.40 [facility] Comment on above: Performed By: #### C BC ####[facility] [address] [place], [place] [address]WpSmooth Montiel WBC 7.6 103/ul Normal 4.0-11.0 [facility] Comment on above: Performed By: #### C ####[facility] [address] [place], [place] [address]F[address] STROKE HEAD WOon 06-05-19 CT [...] GINGER BROOKS Date: 2021-06-05 10:30 Normal [facility] Covid-19 PCR (CVDTB)on 05-17 SARS-CoV-2 (COVID-19) RNA FELECIA+probe Ql (Unsp spec) Not detected Normal NOT DETECTED [facility] Comment on above: Result Comment: When diagnostic [...] for this test is supported by the [place] of Health and Human Service's declaration that [...] longer be used). Performed By: #### C [facility] #### [facility] [address] [address] [address] Good Montiel ECHOCARDIO M/2D COMPLETEon 0 06-05-2021 ECHOCARDIO M/2D COMPLETE Patient: NUVIA MARTIN Exam Date: 06/05/2021 : 1945 Gender:F Ordering : DR. RHIANNON OLSON . Admission #: [id number] Family : DR WILY PRADO M.D. Order #: [id number] CLICK HERE TO VIEW EXAM ECHOCARDIOGRAM REPORT [...] Area(A4C): 18.50 cm2 Left Atrium Systolic Volume(A2C): 99497 mm3 Left Atrium Systolic Volume(A4C): 16410 mm3 Mitral Valve MV E to A [...] M.D. on 06/08/2021 at 14:15 Approved by: Josafta Ramírez M.D. on 06/08/2021 at 14:19 Normal [facility] GLYCOHEMOGLOBIN A1Con 2021 ADA RECOMMENDATION ADA THERAPEUTIC TARGET 6.0 - 7.0 ACTION SUGGESTED > 7.0 Normal [facility] Comment on above: Performed By: #### M MA2 #### [facility] [address] [address] [address] Good Montiel Glucose [Mass/Vol] 131 mg/dL Normal [facility] Comment on above: Performed By: #### M MA2 #### [facility] [address] [address] [address] Good Montiel HbA1c (Bld) [Mass fraction] 6.2 % Critically high <=6.0 [facility] Comment on above: Performed By: #### M MA2 #### [facility] [address] [address] [address] Good Montiel LIPID PROFILEon 06-05-2021 CHOL-HDL RATIO NORM SEE BELOW Normal [facility] Comment on above: Result Comment: 3.3 - 4.4 LOW RISK 4.4 - 7.1 AVERAGE RISK 7.1 - 11.0 MODERATE RISK >11.0 HIGH RISK Performed By: #### C SERAFIN ALLEN #### [facility] [address] [address] [address] Good Montiel Cholesterol [Mass/Vol] 157 mg/dL Normal <=200 [facility] Comment on above: Performed By: #### C SERAFIN ALLEN #### [facility] [facility] [address] [address] [address] Good Montiel Cholesterol in HDL [Mass/Vol] 44 mg/dL Normal [facility] Comment on above: Performed By: #### C SERAFIN ALLEN #### [facility] [address] [address] [address] Good Montiel Cholesterol in LDL [Mass/Vol] 80.0 mg/dL Normal [facility] Comment on above: Performed By: #### C SERAFIN ALLEN #### [facility] [address] [address] [address] Good Montiel Cholesterol.total/Rocío sterol in HDL [Mass ratio] 3.6 {ratio} Normal [facility] Comment on above: Performed By: #### C SERAFIN ALLEN #### [facility] [address] [address] [address] Good Montiel HDL NORMAL > or = 60 mg/dl - LOW CARDIOVASCULAR RISK <40 mg/dl - HIGH CARDIOVASCULAR RISK Normal [facility] Comment on above: Performed By: #### C TIFFANY, CMADM #### [facility] [address], [place] [address] Dr. Good Montiel LDL CALC NORMAL SEE BELOW Normal [facility] Comment on above: Result Comment: <100 mg/dl OPTIMAL 100 - 129 mg/dl NEAR OR ABOVE OPTIMAL 130 - 159 mg/dl BORDERLINE HIGH 160 - 189 mg/dl HIGH >190 mg/dl VERY HIGH Performed By: #### C TIFFANY, CMADM #### [facility] [address], [place] [address] Dr. Good Montiel Triglyceride [Mass/Vol] 165 mg/dL Critically high <=150 [facility] Comment on above: Performed By: #### C TIFFANY, CMADM #### [facility] [address], [place] [address] Dr. Good Montiel VLDL CALC 33.0 mg/dL Normal [facility] Comment on above: Performed By: #### C TIFFANY, CMADM #### [facility] [address], [place] [address] Dr. Good Montiel MRI BRAIN WO CONon [...] by: ALFONSO ALTMAN Date: 2021-06-05 15:08 Normal [facility] POINT OF CARE GLUCOSEon 05-17 Glucose [Mass/Vol] 119 mg/dL Critically high 74-106 [facility] Comment on above: Performed By: #### P OCGLUC ####[facility] [address] [id number]. Good Montiel Glucose [Mass/Vol] 169 mg/dL Critically high -106 [facility] Comment on above: Performed By: #### P OCGLUC ####[facility] [address] [id number]. Good Montiel Glucose [Mass/Vol] 119 mg/dL Critically high -106 [facility] Comment on above: Performed By: #### P OCGLUC ####[facility] [address] [address]Dr. Good Montiel PROF 14(COMP METB)on 022 Albumin [Mass/Vol] 3.3 g/dL Critically low 3.5-5.0 [facility] Comment on above: Performed By: #### C SERAFIN ALLEN #### [facility] [address] [address] [address] Good Montiel Albumin/Globulin [Mass ratio] 1.0 {ratio} Normal [facility] Comment on above: Performed By: #### C SERAFIN ALLEN #### [facility] [address] [address] [address] Good Montiel ALP [Catalytic activity/Vol] 40 U/L Normal 38-126 [facility] Comment on above: Performed By: #### C SERAFIN ALLEN #### [facility] [address] [address] [address] Good Montiel ALT [Catalytic activity/Vol] 23 U/L Normal 9-52 [facility] Comment on above: Performed By: #### C DOUGLAS ALLENDM #### [facility] [address] [address] [address] Good Montiel Anion gap [Moles/Vol] 11.3 mmol/L Normal [facility] Comment on above: Performed By: #### C MP, CMADM #### [facility] [address] [address] [address] Good Montiel AST [Catalytic activity/Vol] 20 U/L Normal 14-36 [facility] Comment on above: Performed By: #### C MP, CMADM #### [facility] [address] [address] [address] Good Montiel Bilirubin [Mass/Vol] 0.6 mg/dL Normal 0.2-1.3 [facility] Comment on above: Performed By: #### C MP, CMADM #### [facility] [address] [place] [address] Dr. Good Montiel Calcium [Mass/Vol] 8.5 mg/dL Normal 8.4-10.2 [facility] Comment on above: Performed By: #### C MP, CMADM #### [facility] [address] [address] [address] Good Montiel Chloride [Moles/Vol] 90 mmol/L Critically low 98-107 [facility] Comment on above: Performed By: #### C MP, CMADM #### [facility] [address] [address] [address] Good Montiel CO2 [Moles/Vol] 28.5 mmol/L Normal 22.0-30.0 [facility] Comment on above: Performed By: #### C MP, CMADM #### [facility] [address] [address] [address] Good Montiel Creatinine [Mass/Vol] 0.89 mg/dL Normal 0.52-1.04 [facility] Comment on above: Performed By: #### C MP, CMADM #### [facility] [address] [address] [address] Good Montiel EGFR-AF QATARI >60 Normal >=60 [facility] Comment on above: Performed By: #### C MP, CMADM #### [facility] [address] [address] [address] Good Montiel EGFR-NON AF QATARI >60 Normal >=60 [facility] Comment on above: Performed By: #### C MP, CMADM #### [facility] [address] [address] [address] Good Montiel Globulin (S) [Mass/Vol] 3.3 g/dL Normal [facility] Comment on above: Performed By: #### C MP, CMADM #### [facility] [address] [address] [address] Good Montiel Glucose [Mass/Vol] 128 mg/dL Critically high 74-106 [facility] Comment on above: Performed By: #### C MP, CMADM #### [facility] [address] [address] [address] Good Montiel Potassium [Moles/Vol] 3.8 mmol/L Normal 3.4-5.0 [facility] Comment on above: Performed By: #### C TIFFANY, CMADM #### [facility] [address] [address] [address] Good Montiel Protein [Mass/Vol] 6.6 g/dL Normal 6.1-8.2 [facility] Comment on above: Performed By: #### C TIFFANY, CMADM #### [facility] [address] [address] [address] Good Montiel Sodium [Moles/Vol] 126 mmol/L Critically low 137-145 [facility] Comment on above: Performed By: #### C MP, CMADM #### [facility] [address] [address] [address] Good Montiel Urea nitrogen [Mass/Vol] 16.0 mg/dL Normal 7.0-17.0 [facility] Comment on above: Performed By: #### C MP, CMADM #### [facility] [address] [address] [address] Good Montiel Urea nitrogen/Creatinine [Mass ratio] 18.0 mg/mg Normal [facility] Comment on above: Performed By: #### C MP, CMADM #### [facility] [address] [address] [address] Good Montiel US CAROTID ART BILon [...] by: GINGER BROOKS Date: 2021-06-05 15:31 Normal [facility] XR CHEST 1 Von 06-05-2021 XR [...] by: GINGER BROOKS Date: 2021-06-05 09:36 Normal [facility] CT HEAD WO CONon 06-04-2021 CT [...] GINGER BROOKS Date: 2021-06-04 08:06 Normal [facility] BNPon 05-27-2021 Natriuretic peptide B (Bld) [Mass/Vol] 285.0 pg/mL Normal <=900.0 [facility] Comment on above: Performed By: #### C MADM, CMP, BNP ####[facility] [address] [address]Dr. Good Montiel CARDIAC LOGAN ADMITon 022 CK [Catalytic activity/Vol] 60 U/L Normal 30-135 [facility] Comment on above: Performed By: #### C MADM, CMP, BNP ####[facility] [address] [address]Dr. Good Montiel CK.MB [Mass/Vol] 2.13 ng/mL Normal <=2.37 [facility] Comment on above: Performed By: #### C MADM, CMP, BNP ####[facility] [address] [address]Dr. Good Montiel HSTROP 10.8 pg/mL Normal 4.0-35.5 [facility] Comment on above: Result Comment: CUT- OFF POINTS HAVE BEEN ESTABLISHED BASED ON THE FOURTH UNIVERSAL DEFINITIONS OF MYOCARDIAL INFARCTION. THE UPPER REFERENCE LIMIT (URL) OF TROPONIN, DEFINED THE 99TH PERCENTILE OF cTnI DISTRIBUTION IN A REFERENCE POPULATION, HAS BEEN CONFIRMED THE DECISION THRESHOLD FOR SD DIAGNOSIS. Performed By: #### C MADM, CMP, BNP ####[facility] [address] [address]DrSmooth Montiel CLIF 62.0 ng/mL Critically high <=61.5 [facility] Comment on above: Performed By: #### C MADM, CMP, BNP ####[facility] [address] [address]DrSmooth Montiel CBC AUTO DIFFon 05-27-2021 BASO # 0.1 103/ul Normal 0.0-0.1 [facility] Comment on above: Performed By: #### C BC ####[facility] [address] [address]Dr. Good Montiel Basophils/100 WBC (Bld) 0.8 % Normal 0.2-2.0 [facility] Comment on above: Performed By: #### C BC ####[facility] [address] [address]Dr. Good Montiel EO # 0.3 103/ul Normal 0.0-0.7 [facility] Comment on above: Performed By: #### C BC ####[facility] [address] [address]Dr. Good Montiel Eosinophils/100 WBC (Bld) 3.1 % Normal 0.9-7.0 [facility] Comment on above: Performed By: #### C BC ####[facility] [address] [address]Dr. Good Montiel Erythrocyte distribution width (RBC) [Ratio] 18.4 % Critically high 11.0-15.0 [facility] Comment on above: Performed By: #### C BC ####[facility] [address] [address]Dr. Good Montiel Hematocrit (Bld) [Volume fraction] 31.8 % Critically low 36.0-48.0 [facility] Comment on above: Performed By: #### C BC ####[facility] [address] [place], [place] [address]Dr. Good Montiel Hemoglobin (Bld) [Mass/Vol] 9.8 g/dL Critically low 12.0-16.0 [facility] Comment on above: Performed By: #### C BC ####[facility] [address] [address]Dr. Good Montiel IG # 0.09 10e3/ul Critically high 0.00-0.03 [facility] Comment on above: Performed By: #### C BC ####[facility] [address] [id number]. Good Montiel IG % 1.1 % Critically high 0.0-0.5 [facility] Comment on above: Performed By: #### C BC ####[facility] [address] [id number]. Good Montiel LYMPH # 1.6 103/ul Normal 1.2-3.8 [facility] Comment on above: Performed By: #### C BC ####[facility] [address] [id number]. Good Montiel Lymphocytes/100 WBC (Bld) 18.5 % Critically low 20.5-60.0 [facility] Comment on above: Performed By: #### C BC ####[facility] [address] [id number]. Good Montiel MANUAL DIFF REQ NO Normal [facility] Comment on above: Performed By: #### C BC ####[facility] [address] [id number]. Good Montiel MCH (RBC) [Entitic mass] 22.1 pg Critically low 26.7-34.0 [facility] Comment on above: Performed By: #### C BC ####[facility] [address] [id number]. Good Montiel MCHC (RBC) [Mass/Vol] 30.8 g/dL Normal 29.9-35.2 [facility] Comment on above: Performed By: #### C BC ####[facility] [address] [id number]. Good Montiel MCV (RBC) [Entitic vol] 71.6 fL Critically low 81.0-99. 0 [facility] Comment on above: Performed By: #### C BC ####[facility] [address] [id number]. Good Montiel MONO # 0.7 103/ul Normal 0.3-0.8 [facility] Comment on above: Performed By: #### C BC ####[facility] [address] [id number]. Good Montiel Monocytes/100 WBC (Bld) 8.8 % Normal 1.7-12.0 [facility] Comment on above: Performed By: #### C BC ####[facility] [address] [id number]. Good Montiel NEUT # 5.7 103/ul Normal 1.4-6.5 [facility] Comment on above: Performed By: #### C BC ####[facility] [address] [id number]. Good Montiel Neutrophils/100 WBC (Bld) 67.7 % Normal 43.0-75.0 [facility] Comment on above: Performed By: #### C BC ####[facility] [address] [id number]. Good Montiel Platelet mean volume (Bld) [Entitic vol] 8.2 fL Critically low 9.5-13.5 [facility] Comment on above: Performed By: #### C BC ####[facility] [address] [id number]. Good Montiel PLT 382 103/ul Normal 150-450 [facility] Comment on above: Performed By: #### C BC ####[facility] [address] [id number]. Good Montiel RBC 4.44 106/ul Normal 4.20-5.40 [facility] Comment on above: Performed By: #### C BC ####[facility] [address] [id number]. Good Montiel WBC 8.4 103/ul Normal 4.0-11.0 [facility] Comment on above: Performed By: #### C BC ####[facility] [address] [id number]. Good Montiel CT STROKE HEAD WOon 05-27-19 [...] GINGER BROOKS Date: 2021-05-27 07:10 Normal [facility] PROF 14(COMP METB)on 05-27- 022 Albumin [Mass/Vol] 3.3 g/dL Critically low 3.5-5.0 [facility] Comment on above: Performed By: #### C MADM, CMP, BNP ####[facility] [address] [address]Dr. Good Montiel Albumin/Globulin [Mass ratio] 1.0 {ratio} Normal [facility] Comment on above: Performed By: #### C BAUTISTA, CMP, BNP ####[facility] [address] [address]Dr. Good Montiel ALP [Catalytic activity/Vol] 43 U/L Normal 38-126 [facility] Comment on above: Performed By: #### C MADM, CMP, BNP ####[facility] [address] [address]Dr. Good Montiel ALT [Catalytic activity/Vol] 27 U/L Normal 9-52 [facility] Comment on above: Performed By: #### C MADM, CMP, BNP ####[facility] [address] [address]Dr. Good Montiel Anion gap [Moles/Vol] 8.1 mmol/L Normal [facility] Comment on above: Performed By: #### C MADM, CMP, BNP ####[facility] [address] [address]Dr. Good Montiel AST [Catalytic activity/Vol] 23 U/L Normal 14-36 [facility] Comment on above: Performed By: #### C MADM, CMP, BNP ####[facility] [address] [address]Dr. Good Montiel Bilirubin [Mass/Vol] 0.4 mg/dL Normal 0.2-1.3 [facility] Comment on above: Performed By: #### C MADM, CMP, BNP ####[facility] [address] [address]Dr. Good Montiel Calcium [Mass/Vol] 8.5 mg/dL Normal 8.4-10.2 [facility] Comment on above: Performed By: #### C MADM, CMP, BNP ####[facility] [address] [place], [place] [address]Dr. Good Montiel Chloride [Moles/Vol] 94 mmol/L Critically low 98-107 [facility] Comment on above: Performed By: #### C MADM, CMP, BNP ####[facility] [address] [place], [place] [address]Dr. Good Montiel CO2 [Moles/Vol] 29.9 mmol/L Normal 22.0-30.0 [facility] Comment on above: Performed By: #### C MADM, CMP, BNP ####[facility] [address] [place], [place] [address]Dr. Good Montiel Creatinine [Mass/Vol] 0.77 mg/dL Normal 0.52-1.04 [facility] Comment on above: Performed By: #### C MADM, CMP, BNP ####[facility] [address] [place], [place] [address]Dr. Good Montiel EGFR-AF QATARI >60 Normal >=60 [facility] Comment on above: Performed By: #### C MADM, CMP, BNP ####[facility] [address] [place], [place] [address]Dr. Yilan Montiel EGFR-NON AF QATARI >60 Normal >=60 [facility] Comment on above: Performed By: #### C MADM, CMP, BNP ####[facility] [address] [address]Dr. Good Montiel Globulin (S) [Mass/Vol] 3.4 g/dL Normal [facility] Comment on above: Performed By: #### C MADM, CMP, BNP ####[facility] [address] [address]Dr. Good Montiel Glucose [Mass/Vol] 114 mg/dL Critically high 74-106 [facility] Comment on above: Performed By: #### C MADM, CMP, BNP ####[facility] [address] [address]Dr. Good Montiel Potassium [Moles/Vol] 4.0 mmol/L Normal 3.4-5.0 [facility] Comment on above: Performed By: #### C MADM, CMP, BNP ####[facility] [address] [address]Dr. Good Montiel Protein [Mass/Vol] 6.7 g/dL Normal 6.1-8.2 [facility] Comment on above: Performed By: #### C MADM, CMP, BNP ####[facility] [address] [address]Dr. Good Montiel Sodium [Moles/Vol] 128 mmol/L Critically low 137-145 [facility] Comment on above: Performed By: #### C MADM, CMP, BNP ####[facility] [address] [address]Dr. Good Montiel Urea nitrogen [Mass/Vol] 12.0 mg/dL Normal 7.0-17.0 [facility] Comment on above: Performed By: #### C MADM, CMP, BNP ####[facility] [address] [address]Dr. Good Montiel Urea nitrogen/Creatinine [Mass ratio] 15.6 mg/mg Normal [facility] Comment on above: Performed By: #### C MADM, CMP, BNP ####[facility] [address] [place], [place] [address]LrDr. Good Montiel PROTIMEon 05-27-2021 INR Coag (PPP) [Relative time] 1.01 {INR} Normal [facility] Comment on above: Performed By: #### M MA2 #### [facility] [address], [place] [address] Dr. Good Montiel INR GUIDELINES SEE BELOW Normal The [facility] Comment on above: Result Comment: JEANNINE RED INR: 2.0 - 3.0 CONDITIONS NOT LISTED BELOW 2.5 - 3.5 FOR PROSTHETIC HEART VALVE REPLACEMENT 2.5 - 3.5 RECURRENT THROMBOSIS Performed By: #### Hakeem DU2 #### [facility] [address] [address] [address] Good Montiel PT Coag (PPP) [Time] 10.9 s Normal 9.0-11.6 [facility] Comment on above: Performed By: #### Hakeem DU2 #### [facility] [address] [address] [address] Good Montiel PTTon 05-27-2021 aPTT Coag (Bld) [Time] 24.5 s Normal 22.3-36.2 [facility] Comment on above: Performed By: #### Hakeem MA2 #### [facility] [id number] Good Montiel XR CHEST 1 Von [...] by: GINGER BROOKS Date: 2021-05-27 07:53 Normal [facility] Vital Signs Date Time Vital Sign Value Performing Clinician Facility 10-11-2024 15:48-0400 Body height 149.9 cm Wily Prado MD Work Phone: [facility] 10-11-2024 15:48-0400 Body mass index (BMI) [Ratio] 34.74 kg/m2 Wily Prado MD Work Phone: [facility] 10-11-2024 15:48-0400 Body weight 78.02 kg Wily Prado MD Work Phone: [facility] 10-11-2024 15:48-0400 Diastolic blood pressure 60 mm[Hg] Wily Prado MD Work Phone: [facility] 10-11-2024 15:48-0400 Heart rate 64 /min Wily Prado MD Work Phone: [facility] 10-11-2024 15:48-0400 SaO2% (BldA) [Mass fraction] 94 % Wily Prado MD Work Phone: [facility] 10-11-2024 15:48-0400 Systolic blood pressure 130 mm[Hg] Wily Prado MD Work Phone: [facility] 05-11-2024 08:34-0500 Diastolic blood pressure 60 mm[Hg] Wily Prado MD Work Phone: [facility] 05-11-2024 08:34-0500 Systolic blood pressure 160 mm[Hg] Wily Prado MD Work Phone: [facility] 05-08-2024 08:24-0500 Body height 149.9 cm Wily Prado MD Work Phone: [facility] 05-08-2024 08:24-0500 Body mass index (BMI) [Ratio] 33.33 kg/m2 Wily Prado MD Work Phone: [facility] 05-08-2024 08:24-0500 Body weight 74.84 kg Wily Prado MD Work Phone: [facility] 05-08-2024 08:24-0500 Diastolic blood pressure 92 mm[Hg] Wily Prado MD Work Phone: [facility] 05-08-2024 08:24-0500 Heart rate 61 /min Wily Prado MD Work Phone: [facility] 05-08-2024 08:24-0500 Respiratory rate 17 /min Wily Prado MD Work Phone: [facility] 05-08-2024 08:24-0500 SaO2% (BldA) [Mass fraction] 98 % Wily Prado MD Work Phone: [facility] 05-08-2024 08:24-0500 Systolic blood pressure 184 mm[Hg] Wily Prado MD Work Phone: [facility] 01-17-2024 10:04-0400 Body height 149.9 cm Wily Prado MD Work Phone: [facility] 01-17-2024 10:04-0400 Body mass index (BMI) [Ratio] 33.12 kg/m2 Wily Prado MD Work Phone: [facility] 01-17-2024 10:04-0400 Body weight 74.39 kg Wily Prado MD Work Phone: [facility] 01-17-2024 10:04-0400 Diastolic blood pressure 84 mm[Hg] Wily Prado MD Work Phone: [facility] 01-17-2024 10:04-0400 Heart rate 58 /min Wily Prado MD Work Phone: [facility] 01-17-2024 10:04-0400 SaO2% (BldA) [Mass fraction] 97 % Wily Prado MD Work Phone: [facility] 01-17-2024 10:04-0400 Systolic blood pressure 138 mm[Hg] Wily Prado MD Work Phone: [facility] 02-01-2023 10:58-0400 Body temperature 97.2 [degF] MD Wily Prado Work Phone: [facility] 02-01-2023 10:58-0400 Body weight 78.92 kg MD Wily Prado Work Phone: [facility] 02-01-2023 10:58-0400 Diastolic blood pressure 66 mm[Hg] MD Wily Prado Work Phone: [facility] 02-01-2023 10:58-0400 Heart rate 67 /min MD Wily Prado Work Phone: [facility] 02-01-2023 10:58-0400 Respiratory rate 16 /min MD Wily Prado Work Phone: [facility] 02-01-2023 10:58-0400 SaO2% (BldA) [Mass fraction] 95 % MD Wily Prado Work Phone: [facility] 02-01-2023 10:58-0400 Systolic blood pressure 171 mm[Hg] MD Wily Prado Work Phone: [facility] 11-02-2022 09:46-0400 Body temperature 97.8 [degF] MD Wily Prado Work Phone: [facility] 11-02-2022 09:46-0400 Body weight 78.01 kg MD Wily Prado Work Phone: [facility] 11-02-2022 09:46-0400 Diastolic blood pressure 79 mm[Hg] MD Wily Prado Work Phone: [facility] 11-02-2022 09:46-0400 Heart rate 64 /min MD Wily Prado Work Phone: [facility] 11-02-2022 09:46-0400 Respiratory rate 16 /min MD Wily Prado Work Phone: [facility] 11-02-2022 09:46-0400 SaO2% (BldA) [Mass fraction] 95 % MD Wily Prado Work Phone: [facility] 11-02-2022 09:46-0400 Systolic blood pressure 179 mm[Hg] MD Wily Prado Work Phone: [facility] 07-30-2022 10:49-0400 Body temperature 97.7 [degF] MD Wily Prado Work Phone: [facility] 07-30-2022 10:49-0400 Body weight 81 kg MD Wily rPado Work Phone: [facility] 07-30-2022 10:49-0400 Diastolic blood pressure 81 mm[Hg] MD Wily Prado Work Phone: [facility] 07-30-2022 10:49-0400 Heart rate 64 /min MD Wily Prado Work Phone: [facility] 07-30-2022 10:49-0400 Respiratory rate 16 /min MD Wily Prado Work Phone: [facility] 07-30-2022 10:49-0400 SaO2% (BldA) [Mass fraction] 96 % MD Wily Prado Work Phone: [facility] 07-30-2022 10:49-0400 Systolic blood pressure 166 mm[Hg] MD Wily Prado Work Phone: [facility] 04-26-2022 09:37-0500 Body temperature 97.8 [degF] MD Wily Prado Work Phone: [facility] 04-26-2022 09:37-0500 Body weight 80.4 kg MD Wily Prado Work Phone: [facility] 04-26-2022 09:37-0500 Diastolic blood pressure 71 mm[Hg] MD Wily Prado Work Phone: [facility] 04-26-2022 09:37-0500 Heart rate 60 /min MD Wily Prado Work Phone: [facility] 04-26-2022 09:37-0500 Respiratory rate 16 /min MD Wily Prado Work Phone: [facility] 04-26-2022 09:37-0500 SaO2% (BldA) [Mass fraction] 93 % MD Wily Prado Work Phone: [facility] 04-26-2022 09:37-0500 Systolic blood pressure 145 mm[Hg] MD Wily Prado Work Phone: [facility] 02-22-2022 11:08-0400 Body temperature 98 [degF] MD Wily Prado Work Phone: [facility] 02-22-2022 11:08-0400 Body weight 80.73 kg MD Wily Prado Work Phone: [facility] 02-22-2022 11:08-0400 Diastolic blood pressure 56 mm[Hg] MD Wily Prado Work Phone: [facility] 02-22-2022 11:08-0400 Heart rate 65 /min MD Wily Prado Work Phone: [facility] 02-22-2022 11:08-0400 Respiratory rate 16 /min MD Wily Prado Work Phone: [facility] 02-22-2022 11:08-0400 SaO2% (BldA) [Mass fraction] 95 % MD Wily Prado Work Phone: [facility] 02-22-2022 11:08-0400 Systolic blood pressure 163 mm[Hg] MD Wily Prado Work Phone: [facility] 01-12-2022 11:24-0400 Body temperature 97.9 [degF] MD Wily Prado Work Phone: [facility] 01-12-2022 11:24-0400 Body weight 87.86 kg MD Wily Prado Work Phone: [facility] 01-12-2022 11:24-0400 Diastolic blood pressure 63 mm[Hg] MD Wily Prado Work Phone: [facility] 01-12-2022 11:24-0400 Heart rate 58 /min MD Wily Prado Work Phone: [facility] 01-12-2022 11:24-0400 Respiratory rate 18 /min MD Wily Prado Work Phone: [facility] 01-12-2022 11:24-0400 SaO2% (BldA) [Mass fraction] 97 % MD Wily Prado Work Phone: [facility] 01-12-2022 11:24-0400 Systolic blood pressure 169 mm[Hg] MD Wily Prado Work Phone: [facility] 01-12-2022 11:14-0400 Body height 152.4 cm MD Wily Pardo Work Phone: [facility] 02-24-2021 13:00-0400 Body height 152.4 cm Mikie West Other [facility] Other 02-24-2021 13:00-0400 Body mass index (BMI) [Ratio] 37.1 kg/m2 Mikie West Other [facility] Other 02-24-2021 13:00-0400 Body temperature 97.6 [degF] Mikie West Other [facility] Other 02-24-2021 13:00-0400 Body weight 86.18 kg Mikie West Other [facility] Other 02-24-2021 13:00-0400 Diastolic blood pressure 67 mm[Hg] Mikie West Other [facility] Other 02-24-2021 13:00-0400 Systolic blood pressure 166 mm[Hg] Mikie Mijaresrer Other [facility] Other Encounters Encounter Date Encounter Type Care Provider Facility Start: 02-11-2025 End: 02-11-2025 Refill Latonya Joseph PA Work Phone: [facility] [place] [facility] Comment on above: 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, with long-term current use of insulin (HCC) Start: 01-28-2025 End: 01-28-2025 ambulatory Danitza Murray MD Facility:[facility] Start: 01-07-2025 End: 01-07-2025 ambulatory Danitza Murray MD Facility:[facility] Start: 12-24-2024 End: 12-24-2024 ambulatory Danitza Murray MD Facility:[facility] Start: 12-14-2024 End: 12-14-2024 Refill Latonya Joseph [...] polyneuropathy, with long-term current use of insulin ([facility]) Essential hypertensi on ([facility]) Start: 01-17-2024 End: 01-17-2024 Office outpatient visit [...] 01-09-2024 End: 01-09-2024 Bamboo flowsheet Eddie Brink ADJUNCT TRAINER [facility] Start: 01-09-2024 End: 01-09-2024 Bamboo flowsheet Eddie Brink ADJUNCT TRAINER [facility] Start: 01-09-2024 End: 01-09-2024 ambulatory Eddie Ambrocio ADJUNCT TRAINER [facility] Comment on above: Muscle spasm of back (Primary Dx); Bilateral hip pain; Acute bilateral low back pain with sciatica, sciatica laterality unspecified; Lumbar spondylosis Start: 01-05-2024 End: 01-05-2024 ambulatory London Crabtree ADJUNCT TRAINER [facility] Comment on above: Muscle spasm of back (Primary Dx); Bilateral hip pain; Acute bilateral low back pain with sciatica, sciatica laterality unspecified; Lumbar spondylosis Start: 01-02-2024 End: 01-02-2024 ambulatory JALYN GUAN Not Available Start: 12-29-2023 End: 12-29-2023 ambulatory LONDON BRO Not Available Start: 12-27-2023 End: 12-27-2023 ambulatory JALYN GUAN Not Available Start: 12-26-2023 Assay of hemosiderin , quant London Crabtree ADJUNCT TRAINER [facility] Start: 12-26-2023 End: 12-26-2023 ambulatory WILY PRADO Not Available Start: 12-20-2023 End: 12-20-2023 ambulatory LOGAN KAUR Not Available Start: 09-16-2023 End: 09-16-2023 Patient encounter procedure MD Wily Prado Work Phone: [facility] [place] Work Phone: Start: 09-16-2023 End: 09-16-2023 ambulatory MD Wily Prado Work Phone: [facility] Work Phone: Start: 06-28-2023 End: 06-28-2023 ambulatory London Crabtree ADJUNCT TRAINER [facility] Comment on above: Acute [...] above: Med Refill ([facility] [place]) Acute bilateral low back pain with bilateral sciatica (Primary Dx) Start: 02-01-2023 ambulatory MD Wily landers Work Phone: [facility] Work Phone: Start: 02-01-2023 Registered Recurring MD Wily Prado Work Phone: [facility] Work Phone: Start: 11-02-2022 End: 11-02-2022 ambulatory MD Wily Prado Work Phone: [facility] Work Phone: Start: 11-02-2022 End: 11-02-2022 Registered Recurring MD Wily Prado Work Phone: [facility] Work Phone: Start: 07-30-2022 End: 07-30-2022 ambulatory MD Wily Prado Work Phone: [facility] Work Phone: Start: 07-30-2022 End: 07-30-2022 Registered Recurring MD Wily Prado Work Phone: [facility] Work Phone: Start: 04-26-2022 End: 04-26-2022 ambulatory MD Wily Prado Work Phone: [facility] Work Phone: Start: 04-26-2022 End: 04-26-2022 Registered Recurring MD Wily Prado Work Phone: [facility] Start: 02-22-2022 End: 02-22-2022 ambulatory MD Wily Prado Work Phone: [facility] Work Phone: Start: 02-22-2022 End: 02-22-2022 Registered Recurring MD [facility] Start: 02-17-2022 End: 02-17-2022 ambulatory UNKNOWN PROVIDER Facility:[facility] Start: 02-17-2022 End: 02-17-2022 Emergency department patient visit [facility] Emergency Triage, Treat and Transport Comment on above: Arrived Start: 01-21-2022 End: 01-21-[address] NATALIA LYN Facility:[facility] Start: 01-20-2022 End: 01-20-[address] MIKIE GARCIA Facility:[facility] Start: 01-20-2022 End: 01-20-2022 Departed Referred MD Wily Prado Work Phone: [facility] [place] Start: 01-15-2022 End: 01-19-2022 ambulatory UNKNOWN PROVIDER Facility:[facility] Start: 01-14-2022 End: 01-14-[address] LOGAN GATES Facility:[facility] Start: 01-12-2022 End: 01-12-2022 Registered Recurring MD Wily Prado Work Phone: [facility] Start: 01-12-2022 Registered Recurring MD [facility]ado [facility] Start: 01-04-2022 End: 01-04-[address] GINGER BROOKS Facility:[facility] Start: 12-24-2021 End: 12-24-2021 ambulatory AUNG ZIMMERMAN Facility:[facility] Start: 11-24-2021 End: 11-24-[address] LOGAN GATES Facility:[facility] Start: 11-13-2021 Encounter for genera l adult medical examination without abnormal findings DR LATONYA JOSEPH [facility] Start: 11-10-2021 End: 11-11-[address] [...] outpatient vi sit 15 minutes Mikie West [facility] Vascular Surgery Procedures Date Procedure Procedure Detail Performing Clinician Start: 10-11-2024 Hemoglobin glycosylated a1c Wily Prado MD Work Phone: Start: 09-16-2023 XR pre/post mri xray MD Wily Prado Work Phone: Start: 09-16-2023 MR lumbar spine wo con MD Wily Prado Work Phone: Start: 08-25-2023 History of carotid endarterectomy H/O carotid endarterectomy London Crabtree ADJUNCT TRAINER Start: 01-05-2022 Colonoscopy Som Sheffield PT Work [...] Visit [facility] [address] [facility] [address] [place] [id number] Wily Prado MD [address] [place] [address] [facility] Start: 10-11-2024 End: 10-11-2025 US.doppler Carotid arteries - bilateral Vascular US carotid artery duplex bilateral Imaging Routine Bilateral carotid bruits Expected: 10/11/2024, Expires: 10/11/2025 [facility] Work Phone: Comment on above: Expected: 10/11/2024 , Expires: 10/11/2025 Start: 05-11-2024 End: 05-11-2024 Clinical Support 05/11/2024 10:00 AM EST Clinical Support [facility] [address] [place] [phone] [facility] Start: 05-10-2024 Urine screening [...] Visit [facility] [address] [facility] [address] [place] [address] Wily Prado MD [address] [place] [address] [facility] Start: 01-15-2024 Influenza vaccination Influenza Vacc ine (#1) [facility] Start: 01-11-2024 End: 01-11-2024 ambulatory 01/11/2024 10:30 AM EDT Treatment [facility] [address] [facility] [address] [place] [phone] Jalyn Guan, PT [facility] Start: 01-09-2024 End: 01-09-2024 ambulatory [facility] Comment on above: Arrived Start: 12-28-2023 Medicare Annual Well ness (AWV) Medicare Annual Wellness (AWV) [facility] Start: 07-05-2023 End: 07-05-2023 ambulatory 07/05/2023 2:30 PM EST Treatment [facility] [address] [facility] [address] [place] [id number] London Crabtree PTA [facility] Start: [...] Treatment [facility] [address] [facility] [address] [place] [phone] Som Sheffield, PT [address] [facility] [address] [place] [address] [facility] Start: 06-16-2023 End: 06-16-2023 ambulatory 06/16/2023 2:00 PM EST Treatment [facility] [address] [place] [address] Som Sheffield, PT [address] [place] [address] Arrived [facility] Comment on above: Arrived Start: 11-22-2022 Screening for malign ant neoplasm of colon FIT-DNA [facility] Start: 10-14-2022 Annual Wellness Visi t (G0439) Annual Wellness Visit (G0439) [facility] Start: 08-30-2022 [facility] Start: 08-23-2022 [facility] Start: 02-28-2022 Glaucoma screening Diabetes: R etinopathy Screening [facility] Start: 02-13-2022 Influenza vaccination Influenza Vacc ine (#1) [facility] Start: 02-04-2022 [facility] Start: 02-02-2022 COVID-19 Vaccine (5 - Booster for Pfizer series) COVID-19 Vaccine (5 - Booster for Pfizer series) [facility] Start: 01-28-2022 [facility] Start: 11-10-2021 Screening for malign ant neoplasm of colon [facility] Start: 11-07-2021 Pneumococcal vaccination Pneum ococcal [...] malign ant neoplasm of colon [facility] Start: 1945 Screening for malign ant neoplasm of lung Lung Cancer Screening Shared Decision Making [facility] metabo lic 1999 panel - Serum or Plasma [facility] Comprehensive metabo lic 1999 panel - Serum or Plasma [facility] Comprehensive metabo lic 1999 panel - Serum or Plasma [facility] Ferritin [Mass/volum e] in Serum or Plasma [facility] Ferritin [Mass/volum e] in Serum or Plasma [facility] Work Phone: [facility] Immunizations Immunization Date Immunization Notes Care Provider Fa [facility] 01-06-2024 influenza, high dose seasonal, preservative-free Wily Prado MD Work Phone: [facility] 01-06-2024 influenza virus vaccine, unspecified formulation Wily Prado MD Work Phone: [facility] 06-17-2023 RSV, recombinant, protein subunit RSVpreF, adjuvant reconstitu, 120mcg/0.5mL, PF (Arexvy) Som Sheffield PT Work Phone: [facility] 03-21-2023 Influenza, Seasonal, Quadrivalent, Adjuvanted Som Sheffield PT Work Phone: [facility] 03-21-2023 influenza virus vaccine, unspecified formulation London Crabtree ADJUNCT TRAINER [facility] 03-19-2022 influenza, high dose seasonal, preservative-free Som Sheffield PT Work Phone: [facility] 01-04-2022 diphtheria, tetanus toxoids and pertussis vaccine [facility] 01-04-2022 tetanus toxoid, redu blake diphtheria toxoid, and acellular pertussis vaccine, adsorbed Som Sheffield PT Work Phone: [facility] 10-30-2021 tetanus toxoid, redu blake diphtheria toxoid, and acellular pertussis vaccine, adsorbed Som Davidraymond PT Work Phone: [facility] 04-21-2021 Influenza, seasonal vaccine, quadrivalent, adjuvanted, 0.5mL dose, preservative free (DJD=467) [facility] 04-21-2021 Seasonal, trivalent, recombinant, injectable influenza vaccine, preservative free Som Sheffield PT Work Phone: [facility] 04-21-2021 influenza virus vaccine, unspecified formulation [facility] 11-07-2020 pneumococcal conjuga te vaccine, 13 valent [facility] 11-07-2020 zoster vaccine recombinant [facility] 07-14-2020 COVID-19 Vaccine Pfi zer - Documentation Purposes Only Mikie West Other [facility] 06-22-2020 COVID-19 Vaccine Pfi zer - Documentation Purposes Only Mikie West Other [facility] 2018 pneumococcal polysaccharide vaccine, 23 valent Mikie Brett Other [facility] 06-13-2009 novel [id number], preservative-free, injectable [facility] Payers Date Payer Category Payer Self-pay [id number] 2022 [facility] [id number] 2022 Unknown [id number] [id number] .[id number] 2012 Medicare [id number]. 1.13.56.2. 7.3.508569.315 1959 Medicare [id number] 2.16.840.1.994029.19 1959 Unknown [id number] 2.16.840.1.666580.19 1947 Unknown [id number] 2.16.840.1.732859.3.579.2 .593 1947 Unknown [id number] 2.16.840.1.590702.3.579.2 .593 1947 Unknown [id number] 2.16.840.1.761989.3.579.2 .593 1947 Unknown [id number] 2.16.840.1.006410.3.579.2 .593 1947 Unknown [id number] 2.16.840.1.797040.3.579.2 .593 1947 Unknown [id number] 2.16.840.1.926599.3.579.2 .593 1947 Unknown [id number] 2.16.840.1.672827.3.579.2 .593 1947 Unknown [id number] 2.16.840.1.179969.3.579.2 .593 1947 Unknown [id number] 2.16.840.1.173654.3.579.2 .593 1947 Unknown [id number] 2.16.840.1.605031.3.579.2 .593 1947 Unknown [id number] 2.16.840.1.925548.3.579.2 .593 1947 Unknown [id number] 2.16.840.1.910191.3.579.2 .593 1947 Unknown [id number] 2.16.840.1.166918.3.579.2 .732 1947 Unknown [id number] 2.16.840.1.610215.3.579.2 .732 1947 Unknown [id number] 2.16.840.1.181410.3.579.2 .125 1947 Unknown [id number] 2.16.840.1.879150.3.579.2 .1258 1947 Unknown [id number] 2.16.840.1.895316.3.579.2 .125 1947 Unknown [id number] 2.16.840.1.105999.3.579.2 .1258 1947 Unknown [id number] 2.16.840.1.825588.3.579.2 .1258 1947 Unknown [id number] 2.16.840.1.823336.3.579.2 .1258 1947 Unknown [id number] 2.16.840.1.016926.3.579.2 .125 1947 Unknown [id number] 2.16.840.1.694625.3.579.2 .125 1947 Unknown [id number] 2.16.840.1.478370.3.579.2 .125 1947 Unknown [id number] 2.16.840.1.631805.3.579.2 .125 1947 Unknown [id number] 2.16.840.1.706455.3.579.2 .1258 1947 Unknown [id number] 2.16.840.1.023771.3.579.2 .125 1947 Unknown [id number] 2.16.840.1.198038.3.579.2 .125 1947 Unknown [id number] 2.16.840.1.655887.3.579.2 .196 1947 Unknown [id number] 2.16.840.1.618452.3.579.2 .196 1947 Unknown [id number] 2.16.840.1.970420.3.579.2 .196 1947 Unknown [id number] 2.16.840.1.671653.3.579.2 .196 Unknown [id number] 2.16.840.1.676266.3.579.2 .531 Social History Date Type Detail Facility Unknown if ever smoked [facility] Other Start: 05-10-2023 End: 10-11-2024 Sex Assigned At [facility] Other Start: 01-12-2022 End: 02-01-2023 Tobacco smoking status ORIS Smoker (finding) [facility] Start: 1945 Sex Assigned At Female [facility] Tobacco smoking stat us [facility] Start: 1945 Sex Assigned At Not on file [facility] Start: 12-27-2022 End: 05-08-2024 Tobacco smoking status [facility] Smokes tobacco daily [facility] History of tobacco use Cigarette Smoker [...] Identifier Dates Endarterectomy, carotid Cardiovascular patch, animal-derived ([id number] [facility] Start: 10-02-2020 Angioplasty of carotid artery with insertion of stent Bare-metal carotid artery stent ()[id number] [facility] Start: 12-17-2019 USE DIRECTED TWICE A DAY [id number] Start: 12-20-2022 1 each by Other route in the morning and 1 each before bedtime. [id number] USE TO TEST BLOO D SUGAR TWICE DAILY [id number] Start: 06-27-2023 Use as instructed [id number] Start: 05-31-2024 USE INSTRUCTED [id number] Start: 08-20-2024 USE TO TEST BLOO D SUGAR TWICE DAILY [id number] Start: 12-10-2024 Goals Date Patient Goal Desired Activity /State Functional Status Date Assessment Result Facility 10-11-2024 Patient Health Quest ionnaire 2 item (PHQ-2) [Reported] [facility] Clinical Notes 02-24-2021 to 02-11-2025 Telephone Encounter - LUMA Garcia - 02/11/2025 10:28 AM EDTTelephone Encounter - LUMA Garcia - 02/11/2025 10:28 AM EDTTelephone Encounter - LUMA Garcia - 12/14/2024 12:17 PM EDT Note Date & Type Note Facility 02-11-2025 Telephone encount er Note Ivonne sent [facility] 02-11-2025 Miscellaneous Notes Formattin g of this note might be different from the original. Ivonne sent documented in this encounter [facility] 12-14-2024 Telephone encount er Note Resent, though it does show that [facility] filled this, hopefully she will not have an issue getting this at [facility] and the other Rx will be cancelled. [facility] 12-14-2024 Miscellaneous Notes Formattin g of this note might be different from the original. Resent, though it does show that [facility] filled this, hopefully she will not have an issue getting this at [facility] and the other Rx will be cancelled. Needs to go to [facility] documented in this encounter [facility] 12-14-2024 Telephone encount er Note Needs to go to [facility] 12-11-2024 Telephone encount er Note OARRS reviewed, Rx sent into patient's pharmacy. [facility] 12-11-2024 Miscellaneous Notes Formattin g of this note might be different from the original. OARRS reviewed, Rx sent into patient's pharmacy. documented in this encounter [facility] 11-19-2024 Telephone encount er Note Amlodipine sent. [facility] 11-19-2024 Miscellaneous Notes Formattin g of this note might be different from the original. Amlodipine sent. documented in this encounter [facility] 11-09-2024 Telephone encount er Note OARRS reviewed, Rx sent into patient's pharmacy. [facility] 11-09-2024 Miscellaneous Notes Formattin g of this note might be different from the original. OARRS reviewed, Rx sent into patient's pharmacy. OV 10/11/24 RF 10/11/24 documented in this encounter [facility] 11-09-2024 Telephone encount er Note OV 10/11/24 RF 10/11/24 [facility] 10-12-2024 Telephone encount er Note See TE from today. Rx will be filled at [facility]. [facility] 10-12-2024 Miscellaneous Notes Formattin g of this note might be different from the original. See TE from today. Rx will be filled at [facility]. Patient need refill on ALPRAZolam (Xanax) 0.5 MG . She asked if that could be sent to [facility] in [place]. documented in this encounter [facility] 10-12-2024 Telephone encount er Note [facility] called, questioning Xanax being sent to [facility]. Advised it was supposed to be filled at [facility], pt did want it filled there, not [facility]. They have a refill on file for her for 30 day supply and will proceed with filling it. They will contact [facility] and let them know that they are filling the Rx for the patient. [facility] 10-12-2024 Miscellaneous Notes Formattin g of this note might be different from the original. [facility] called, questioning Xanax being sent to [facility]. Advised it was supposed to be filled at [facility], pt did want it filled there, not [facility]. They have a refill on file for her for 30 day supply and will proceed with filling it. They will contact [facility] and let them know that they are filling the Rx for the patient. documented in this encounter [facility] 10-11-2024 Telephone encount er Note Patient need refill on ALPRAZolam (Xanax) 0.5 MG . She asked if that could be sent to [facility] in [place]. [facility] 10-11-2024 History of Presen t [...] and exercise. Associated Problem(s): Heart failure, unspecified ([facility]) Continue current meds. Associated Problem(s): Epilepsy, unspecified, [...] being taken. She does not see a bar host/hostess.Eye exam is current. Current Outpatient Medications on [...] tablet 3 insulin pen needle (Droplet Pen Warden) 32G x 4 mm misc USE INSTRUCTED [...] time each day at the same time. Rice-3 Fatty Acids (Fish Oil) 1000 MG capsule delayed-release Take 1 capsule by mouth 1 (one) time each day. omeprazole (PriLOSEC) [address] capsule TAKE 1 CAPSULE EVERY DAY 100 capsule 3 Sconce SolutionsTouch Ultra test strip USE TO TEST BLOOD [...] Diagnosis Date AMS (altered mental status) 10/30/[address] [facility] Anemia Arthritis Asthma Breast lump Bronchitis Cancer ([facility]) cervical Carotid artery stenosis Cataract Chicken pox COPD (chronic obstructive pulmonary disease) ([facility]) Diabetes mellitus ([facility]) Disease of thyroid gland ([facility]) Emphysema lung ([facility] History of being hospitalized 10/30/2020 [facility] Hyperlipemia ([facility]) Hypertension ([facility]) Measles Vascular calcification Past Surgical History: Procedure [...] 04/13/2025) for Diabetes. documented in this encounter [facility] 10-11-2024 Telephone encount er Note Patient has appointment today. [facility] 10-11-2024 Miscellaneous Notes Formattin g of this note might be different from the original. Patient has appointment today. documented in this encounter [facility] 05-11-2024 History of Presen t illness Narrative Pt was here for a BP check documented in this encounter [facility] 05-08-2024 History of Presen t [...] time each day at the same time. Rice-3 Fatty Acids (Fish Oil) 1000 MG capsule [...] Diagnosis Date AMS (altered mental status) 10/30/[address] [facility] Anemia Arthritis Asthma ([facility]/HCC) Breast lump Bronchitis Cancer ([facility]/HCC) cervical Carotid artery stenosis Cataract Chicken pox COPD (chronic obstructive pulmonary disease) ([facility]/HCC) Diabetes mellitus (CMS/HCC) Disease of thyroid gland (CMS/HCC) Emphysema lung ([facility]/HCC) History of being hospitalized 10/30/[address] [facility] Hyperlipemia ([facility]/HCC) Hypertension ([facility]/HCC) Measles Vascular calcification Past Surgical History: Procedure [...] List Items Addressed This Visit Diabetes mellitus ([facility]/HCC) - Primary No Tobacco use Follow ADA [...] long distances while on medicines. Hypertensive emergency (CMS/[facility]) Add Norvasc Take all current blood medications If with severe or stroke like symptoms got to ER Other Visit Diagnoses Other insomnia Relevant Medications ALPRAZolam (Xanax) 0.5 MG tablet Follow up in about 3 days (around 05/11/2024) for Hypertension. documented in this encounter [facility] 05-04-2024 Telephone encount er Note 7 day supply sent. [facility] 05-04-2024 Miscellaneous Notes Formattin g of this note might be different from the original. 7 day supply sent. Pt made an appt for tues with johan , but she is needing a refill on her xanax if willing to send in for her please send to [facility] she stated it helps her sleep at night documented in this encounter [facility] 05-04-2024 Telephone encount er Note Pt made an appt for tues with johan , but she is needing a refill on her xanax if willing to send in for her please send to [facility] she stated it helps her sleep at night [facility] 03-20-2024 Telephone encount er Note OARRS reviewed, Rx sent into patient's pharmacy. [facility] 03-20-2024 Miscellaneous Notes Formattin g of this note might be different from the original. OARRS reviewed, Rx sent into patient's pharmacy. documented in this encounter [facility] 02-15-2024 Telephone encount er Note OARRS reviewed, Rx sent into patient's pharmacy. [facility] 02-15-2024 Miscellaneous Notes Formattin g of this note might be different from the original. OARRS reviewed, Rx sent into patient's pharmacy. documented in this encounter [facility] 02-10-2024 Telephone encount er Note Atorvastatin sent. [facility] 02-10-2024 Miscellaneous Notes Formattin g of this note might be different from the original. Atorvastatin sent. documented in this encounter [facility] 02-10-2024 Telephone encount er Note Janumet sent [facility] 02-10-2024 Miscellaneous Notes Formattin g of this note might be different from the original. Ivonne sent documented in this encounter [facility] 01-17-2024 History of Presen t [...] time each day at the same time. Rice-3 Fatty Acids (Fish Oil) 1000 MG capsule [...] Diagnosis Date AMS (altered mental status) 10/30/[address] [facility] Anemia Arthritis Asthma ([facility]) Breast lump Bronchitis Cancer ([facility]/HCC) cervical Carotid artery stenosis Cataract Chicken pox COPD (chronic obstructive pulmonary disease) ([facility]) Diabetes mellitus ([facility]/HCC) Disease of thyroid gland (CMS/HCC) Emphysema lung ([facility]) History of being hospitalized 10/30/[address] [facility] Hyperlipemia ([facility] Hypertension ([facility]) Measles Vascular calcification Past Surgical History: [...] months (around 04/17/2024). documented in this encounter [facility] 01-11-2024 History of Presen t [...] her feet; denies any recent falls. Precautions: Cashion Subjective: Pt states she has been hurting [...] instructed in home exercise program. - met Jail Goals: To be met in 10 weeks [...] to home program. documented in this encounter [facility] 06-21-2023 History of Presen t [...] Physician Signature: Date: documented in this encounter [facility] 06-16-2023 Telephone encount er Note Requesting refill of Tramadol - not on current med list. [facility] 06-16-2023 Miscellaneous Notes Formattin g of this note might be different from the original. Requesting refill of Tramadol - not on current med list. documented in this encounter [facility] 06-16-2023 History of Presen t [...] Physician Signature: Date: documented in this encounter [facility] 11-02-2022 Progress note Note Date/Time November 02, 2022 10:01[facility] at [address] [address] Hem/Onc Follow Up Note - OP Signed Patient: Nuvia Martin MR#: [id number] : 1945 Acct:[id number] Age/Sex: 77 / F Type: REG RCR [...] (Verified 11/02/22 09:45) Diarrhea bacitracin [From Neosporin (sbm-bbw-ifhsa)] Adverse Reaction (Verified 11/02/22 09:45) Blister contact metal agent Adverse Reaction (Verified 11/02/22 09:45) Rash neomycin [From Neosporin (vdh-mfd-wthos)] Adverse Reaction (Verified 11/02/22 09:45) Blister petrolatum,white [From Petroleum Jelly] Adverse Reaction (Verified 11/02/22 09:45) Blister polymyxin B [From Neosporin (jtt-hch-oaluo)] Adverse Reaction (Verified 11/02/2308:45) Blister Home Medications [...] PO QNOON 12/17/19 [History Confirmed 11/02/22] omega 6-rht-jgl-fish oil 1,000 mg (120 mg-180 mg) capsule [...] % (Auto) 60.6, Lymph % (Auto) 26.9, Finney % (Auto) 9.5, Eos % (Auto) 1.7, Baso % (Auto) 1.3, Nucleat RBC Rel Count 0.2, Neut # (Auto) 3.8, Lymph # (Auto) 1.7, Finney # (Auto) 0.6, Eos # (Auto) 0.1, [...] for coordination of care (as documented) and bvwh-dv-bxdx counseling of patient and/or family. Dictated By: Taylor Tijerina APRN DD/ 1000 Signed By: <Electronically signed by CARMELA Tijerina> 11/02/[address] [facility] Work Phone: 1(653) 650-775803-28-2023 Progress note Author Taylor Tijerina [facility] August 10, 2022 11:00am Note Date/Time July 30, 2022 11: 10am [facility] [place] [address] Hem/Onc Follow Up Note - OP Signed Patient: Nuvia Martin MR#: [id number] : 1945 Acct:[id number] Age/Sex: 77 / F Type: REG RCR [...] (Verified 07/30/22 10:44) Diarrhea bacitracin [From Neosporin (prn-nih-ylreg)] Adverse Reaction (Verified 07/30/22 10:44) Blister contact metal agent Adverse Reaction (Verified 07/30/22 10:44) Rash neomycin [From Neosporin (ion-ckp-snpsy)] Adverse Reaction (Verified 07/30/22 10:44) Blister petrolatum,white [From Petroleum Jelly] Adverse Reaction (Verified 07/30/22 10:44) Blister polymyxin B [From Neosporin (jfn-lsz-wgsdt)] Adverse Reaction (Verified 07/30/2309:44) Blister Home Medications [...] PO QNOON 12/17/19 [History Confirmed 07/30/22] omega 8-uvt-ttf-fish oil 1,000 mg (120 mg-180 mg) capsule [...] for coordination of care (as documented) and jotp-rq-cuso counseling of patient and/or family. Dictated By: Taylor Tijerina APRN DD/ 1110 Signed By: <Electronically signed by CARMELA Tijerina> 08/10/[address] [facility] Work Phone: 1(144) 682-151712-12-2022 Progress note Author Emily Degroot [facility] April 26, 2022 3:23pm Note Date/Time April 26, 2022 3:16pm [facility] [place] [address] Hem/Onc Follow Up Note - OP Signed Patient: Nuvia Martin MR#: [id number] : 1945 Acct:[id number] Age/Sex: 76 / F Type: REG RCR [...] (Verified 04/26/22 09:36) Diarrhea bacitracin [From Neosporin (ryg-nwo-dxtis)] Adverse Reaction (Verified 04/26/22 09:36) Blister contact metal agent Adverse Reaction (Verified 04/26/22 09:36) Rash neomycin [From Neosporin (nxm-awm-kqkmf)] Adverse Reaction (Verified 04/26/22 09:36) Blister petrolatum,white [From Petroleum Jelly] Adverse Reaction (Verified 04/26/22 09:36) Blister polymyxin B [From Neosporin (yhc-azp-foxjj)] Adverse Reaction (Verified 04/26/2209:36) Blister Home Medications [...] PO QNOON 12/17/19 [History Confirmed 04/26/22] omega 2-tba-akb-fish oil 1,000 mg (120 mg-180 mg) capsule [...] % (Auto) 68.2, Lymph % (Auto) 20.8, Finney % (Auto) 6.9, Eos % (Auto) 3.3, Baso % (Auto) 0.8, Nucleat RBC Rel Count 0.1, Neut # (Auto) 4.7, Lymph # (Auto) 1.4, Finney # (Auto) 0.5, Eos # (Auto) 0.2, [...] for coordination of care (as documented) and ulzz-ze-inwm counseling of patient and/or family. Dictated By: Emily Degroot APRN DD/ 1514 Signed By: <Electronically signed by CARMELA Degroot> 04/26/22 1523 [facility] Work Phone: 1([phone]) 561-447010-10-2022 Progress note Author Marisabel Noel [facility] February 22, 2022 12:49pm Note Date/Time February 22, 2022 1 2:45pm [facility] [place] [address] Hem/Onc Follow Up Note - OP Signed Patient: Nuvia Martin MR#: [id number] : 1945 Acct:[id number] Age/Sex: 76 / F Type: REG RCR [...] asthma, hives, eczema or rhinitis. [facility] - Medical History Medical History: Medical History [...] (Verified 02/22/22 11:05) Diarrhea bacitracin [From Neosporin (pav-pjv-uxrlq)] Adverse Reaction (Verified 02/22/22 11:05) Blister contact metal agent Adverse Reaction (Verified 02/22/22 11:05) Rash neomycin [From Neosporin (gne-hot-tesyp)] Adverse Reaction (Verified 02/22/22 11:05) Blister petrolatum,white [From Petroleum Jelly] Adverse Reaction (Verified 02/22/22 11:05) Blister polymyxin B [From Neosporin (sku-ilr-bvqkr)] Adverse Reaction (Verified 02/22/2211:05) Blister Home Medications [...] PO QNOON 12/17/19 [History Confirmed 02/22/22] omega 6-eni-bns-fish oil 1,000 mg (120 mg-180 mg) capsule [...] % (Auto) N/A, Lymph % (Auto) N/A, Finney % (Auto) N/A, Eos % (Auto) N/A,Baso % (Auto) N/A, Neut # (Auto) N/A, Lymph # (Auto) N/A, Finney # (Auto) N/A, Eos# (Auto) N/A, Baso [...] for coordination of care (as documented) and xubn-mu-yfev counseling of patient and/or family. Dictated By: Marisabel Noel MD DD/ 1243 Signed By: <Electronically signed by Marisabel Noel MD> 02/22/22 1249 [facility] Work Phone: 1(643) 947-104210-05-2022 History of Present illness Narrative* Cassidy Julio MD - 02/17/2022 9:17 AM EDT Images from the original note were not included. EMERGENCY TRIAGE, TREAT AND TRANSPORT (ET3) DOCUMENTATION OF TELEHEALTH VISIT Date / Time: 02/17/2022916 Name: Nuvia Martin : 1945 SSN: [id number] EMS Agency: [facility] [x] Verbal consent obtained [] [...] by: Cassidy Julio MD documented in this [id number] Consult note Author Maciel Sofia [facility] January 19, 2022 2:52pm Note Date/Time January 12, 2022 12 :54pm [facility] [place] [address] Hem/Onc Consult Note - OP Signed Patient: Nuvia Martin MR#: [id number] : 1945 Acct:[id number] Age/Sex: 76 / F Type: REG RCR [...] Unable to locate recent iron studies from [facility]. She will have a colonoscopy and [...] sweats, or unintentional weight loss. [facility] - Medical History Medical History: Medical History [...] (Verified 01/12/22 11:14) Diarrhea bacitracin [From Neosporin (qfg-qfo-fkeac)] Adverse Reaction (Verified 01/12/22 11:14) Blister contact metal agent Adverse Reaction (Verified 01/12/22 11:14) Rash neomycin [From Neosporin (ldy-iqa-oclsd)] Adverse Reaction (Verified 01/12/22 11:14) Blister petrolatum,white [From Petroleum Jelly] Adverse Reaction (Verified 01/12/22 11:14) Blister polymyxin B [From Neosporin (oac-oxp-dkzrh)] Adverse Reaction (Verified 01/12/2211:14) Blister Home Medications [...] PO QNOON 12/17/19 [History Confirmed 01/12/22] omega 9-pfw-bzf-fish oil 1,000 mg (120 mg-180 mg) capsule [...] for coordination of care (as documented) and eogc-et-byml counseling of patient and/or family. Dictated By: Taylor Tijerina APRN DD/ 1241 Signed By: <Electronically signed by CARMELA Tijerina> 01/12/22 1403 <Electronically signed by Macile Sofia II, DO> 01/19/[address] [facility] Work Phone: [phone]) 197-912008-22-2022 NotePROCEDURE: XR ELBOW RT 2V HISTORY: Bone injury ; acute elbow pain after falling COMPARISON: None. FINDINGS: BONES:No fracture, acute abnormality, or significant arthropathy. SOFT TISSUES:Soft tissue swelling posterior to the proximal forearm. EFFUSION:None visible. OTHER: Negative. IMPRESSION: 1. No acute bone abnormality or joint effusion. Electronically authenticated by: GINGER BROOKS Date: 2022-01-04 13:57[facility]10-12-2021 Evaluation note* Encounter Date Diagnosis Assessment [...] readiness for smoking cessation at this time. [facility] Other Evaluation note* Diagnosis Onset Date Resolution Status Iron deficiency anemia acute [facility] Work Phone: Evaluation note* Diagnosis [...] region and thigh documented in this encounter [facility] HealthcareEvaluation note* Diagnosis Acute bilateral low back pain with sciatica, sciatica laterality unspecified- Primary Lumbar spondylosis Lumbosacral spondylosis without myelopathy Bilateral hip pain Pain in joint, pelvic region and thigh documented in this encounter [facility] HealthcareEvaluation noteNo assessment information availableC[facility] Work Phone: Evaluation note* Diagnosis Other insomnia documented in this encounter [facility] HealthcareEvaluation note* Diagnosis Acute bilateral low back [...] (CMS/HCC) Other insomnia documented in this encounter [facility] HealthcareEvaluation note* Diagnosis Acute bilateral low back pain with sciatica, sciatica laterality unspecified- Primary Type 2 diabetes mellitus with diabetic polyneuropathy, with long-term current use of insulin (CMS/[facility]) Lumbar spondylosis Lumbosacral spondylosis without myelopathy Lumbar adjacent segment disease with spondylolisthesis- Primary Acute bilateral low back pain with bilateral sciatica Type 2 diabetes mellitus with diabetic polyneuropathy, with long-term current use of insulin (CMS/[facility]) Bilateral carotid artery stenosis Occlusion and stenosis of carotid artery without mention of cerebral infarction Claustrophobia (CMS/[facility]) Other isolated or specific phobias Type 2 diabetes mellitus with diabetic peripheral angiopathy without gangrene, without long-term current use of insulin (CMS/[facility]) Hypervitaminosis B6- Primary Other hyperalimentation Acute bilateral low back pain with bilateral sciatica Lumbar adjacent segment disease with spondylolisthesis Lumbar spondylosis Lumbosacral spondylosis without myelopathy Stenosis of carotid artery, unspecified laterality Lumbar paraspinal muscle spasm Other symptoms referable to back Carpal tunnel syndrome, bilateral Carpal tunnel syndrome Migraine without aura and without status migrainosus, not intractable (CMS/[facility]) OLIVA (obstructive sleep apnea) Obstructive sleep apnea (adult) (pediatric) Routine general medical examination at health care facility- Primary Routine general medical examination at a health care facility Type 2 diabetes mellitus with diabetic peripheral angiopathy without gangrene, without long-term current use of insulin (CMS/[facility]) Peripheral vascular disease, unspecified (CMS/[facility]) Peripheral vascular disease, unspecified Heart failure, unspecified (CMS/[facility]) Heart failure, unspecified Epilepsy, unspecified, not intractable, without status epilepticus (CMS/[facility]) Other secondary pulmonary hypertension (CMS/[facility]) Atherosclerosis of aorta ([facility]) Atherosclerosis of aorta Medicare annual wellness visit, subsequent Diabetes mellitus with peripheral vascular disease ([facility]) Other insomnia documented in this encounter [facility]Evaluation note* Diagnosis Muscle spasm of back- Primary Bilateral hip pain Pain in joint, pelvic region and thigh Acute bilateral low back pain with sciatica, sciatica laterality unspecified Lumbar spondylosis Lumbosacral spondylosis without myelopathy documented in this encounter [facility] HealthcareEvaluation note* Diagnosis Muscle spasm of back- Primary Bilateral hip pain Pain in joint, pelvic region and thigh Acute bilateral low back pain with sciatica, sciatica laterality unspecified Lumbar spondylosis Lumbosacral spondylosis without myelopathy documented in this encounter [facility] HealthcareEvaluation note* Diagnosis Lumbar spondylosis- Primary Lumbosacral spondylosis without myelopathy Other insomnia 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 claudication documented in this encounter [facility]* Diagnosis Type 2 diabetes mellitus with diabetic polyneuropathy, with long-term current use of insulin (CMS/HCC) documented in this encounter [facility] HealthcareEvaluation note* Diagnosis Essential hypertension (CMS/HCC) Unspecified [...] Unspecified essential hypertension Other insomnia Hypertensive emergency (CMS/[facility]) documented in this encounter [facility] HealthcareEvaluation note* Diagnosis Acute bilateral low back pain with sciatica, sciatica laterality unspecified- Primary Type 2 diabetes mellitus with diabetic polyneuropathy, with long-term current use of insulin (CMS/[facility]) Lumbar spondylosis Lumbosacral spondylosis without myelopathy Lumbar adjacent segment disease with spondylolisthesis- Primary Acute bilateral low back pain with bilateral sciatica Type 2 diabetes mellitus with diabetic polyneuropathy, with long-term current use of insulin (CMS/HCC) Bilateral carotid artery stenosis Occlusion and stenosis of carotid artery without mention of cerebral infarction Claustrophobia ([facility]) Other isolated or specific phobias Type [...] aura and without status migrainosus, not intractable ([facility]) OLIVA (obstructive sleep apnea) Obstructive sleep [...] secondary pulmonary hypertension (CMS/HCC) Atherosclerosis of aorta ([facility]) Atherosclerosis of aorta Medicare annual wellness visit, subsequent Diabetes mellitus with peripheral vascular disease ([facility]) Type 2 diabetes mellitus with diabetic [...] Unspecified essential hypertension Other insomnia Hypertensive emergency (CMS/[facility]) Other insomnia documented in this encounter [facility] HealthcareEvaluation note* Diagnosis Acute bilateral low back [...] artery without mention of cerebral infarction Claustrophobia (CMS/[facility]) Other isolated or specific phobias Type 2 diabetes mellitus with diabetic peripheral angiopathy without gangrene, without long-term current use of insulin (/[facility]) Hypervitaminosis B6- Primary Other hyperalimentation Acute [...] Other secondary pulmonary hypertension Atherosclerosis of aorta (CMS/[facility]) Atherosclerosis of aorta Medicare annual wellness visit, subsequent Diabetes mellitus with peripheral vascular disease (CMS/[facility]) Type 2 diabetes mellitus with diabetic polyneuropathy, with long-term current use of insulin (CMS/HCC)- Primary Mixed hyperlipidemia (CMS/HCC) Mixed hyperlipidemia Agitation states as acute reaction to exceptional (gross) stress Predominant psychomotor disturbance as reaction to stress Essential hypertension (CMS/HCC) Unspecified essential hypertension Other insomnia Hypertensive emergency ([facility]) Other insomnia documented in this encounter [facility] HealthcareEvaluation note* Diagnosis Acute bilateral low back pain with sciatica, sciatica laterality unspecified- Primary Type 2 diabetes mellitus with diabetic polyneuropathy, with long-term current use of insulin (CMS/[facility]) Lumbar spondylosis Lumbosacral spondylosis without myelopathy Lumbar adjacent segment disease with spondylolisthesis- Primary Acute bilateral low back pain with bilateral sciatica Type 2 diabetes mellitus with diabetic polyneuropathy, with long-term current use of insulin (CMS/[facility]) Bilateral carotid artery stenosis Occlusion and stenosis of carotid artery without mention of cerebral infarction Claustrophobia ([facility]) Other isolated or specific phobias Type 2 diabetes mellitus with diabetic peripheral angiopathy without gangrene, without long-term current use of insulin ([facility]) Hypervitaminosis B6- Primary Other hyperalimentation Acute bilateral low back pain with bilateral sciatica Lumbar adjacent segment disease with spondylolisthesis Lumbar spondylosis Lumbosacral spondylosis without myelopathy Stenosis of carotid artery, unspecified laterality Lumbar paraspinal muscle spasm Other symptoms referable to back Carpal tunnel syndrome, bilateral Carpal tunnel syndrome Migraine without aura and without status migrainosus, not intractable ([facility]) OLIVA (obstructive sleep apnea) Obstructive sleep apnea (adult) (pediatric) Routine general medical examination at health care facility- Primary Routine general medical examination at a health care facility Type 2 diabetes mellitus with diabetic peripheral angiopathy without gangrene, without long-term current use of insulin ([facility]) Peripheral vascular disease, unspecified ([facility]) Peripheral vascular disease, unspecified Heart failure, unspecified ([facility]) Heart failure, unspecified Epilepsy, unspecified, not intractable, without status epilepticus Other secondary pulmonary hypertension Atherosclerosis of aorta ([facility]) Atherosclerosis of aorta Medicare annual wellness visit, subsequent Diabetes mellitus with peripheral vascular disease ([facility]) Type 2 diabetes mellitus with diabetic polyneuropathy, with long-term current use of insulin ([facility])- Primary Mixed hyperlipidemia ([facility] [facility]) Mixed hyperlipidemia Agitation states as acute reaction to exceptional (gross) stress Predominant psychomotor disturbance as reaction to stress Essential hypertension (CMS/HCC) Unspecified essential hypertension Other insomnia Hypertensive emergency ([facility]) Diabetes mellitus with peripheral vascular disease ([facility])- Primary Epilepsy, unspecified, not intractable, without status epilepticus Other secondary pulmonary hypertension Heart failure, unspecified (CMS/HCC) Heart failure, unspecified Benign hypertension (CMS/HCC) Essential hypertension, benign Grade II diastolic dysfunction Type 2 diabetes mellitus with diabetic polyneuropathy, with long-term current use of insulin (CMS/HCC) Bilateral carotid bruits documented in this encounter [facility] HealthcareEvaluation note* Diagnosis Acute bilateral low back [...] bruits Other insomnia documented in this encounter [facility] HealthcareEvaluation note* Diagnosis Acute bilateral low back [...] Unspecified essential hypertension documented in this encounter [facility] HealthcareEvaluation note* Diagnosis Acute bilateral low back [...] bruits Other insomnia documented in this encounter [facility] HealthcareEvaluation note* Diagnosis Acute bilateral low back [...] bruits Other insomnia documented in this encounter [facility] HealthcareEvaluation note* Diagnosis Acute bilateral low back [...] History pgeisert Hospitalization History ACUTE DELIRIUM; 10/02/20 [facility] [place] Other Progress note Author Taylor Tijerina [facility] November 02, 2022 10:02am Note Date/Time November 02, 2022 10:0 1am [facility] [place] [address] Hem/Onc Follow Up Note - OP Signed Patient: Nuvia Martin MR#: [id number] : 1945 Acct:[id number] Age/Sex: 77 / F Type: REG RCR [...] 2 doses: 01/28/2022 and 02/04/2022 [facility] - Medical History Medical History: Medical History [...] (Verified 11/02/22 09:45) Diarrhea bacitracin [From Neosporin (nhh-bhw-pyjja)] Adverse Reaction (Verified 11/02/22 09:45) Blister contact metal agent Adverse Reaction (Verified 11/02/22 09:45) Rash neomycin [From Neosporin (pxu-zmg-vfaxj)] Adverse Reaction (Verified 11/02/22 09:45) Blister petrolatum,white [From Petroleum Jelly] Adverse Reaction (Verified 11/02/22 09:45) Blister polymyxin B [From Neosporin (ned-jhn-bdirh)] Adverse Reaction (Verified 11/02/2308:45) Blister Home Medications [...] PO QNOON 12/17/19 [History Confirmed 11/02/22] omega 7-yxx-sge-fish oil 1,000 mg (120 mg-180 mg) capsule [...] % (Auto) 60.6, Lymph % (Auto) 26.9, Finney % (Auto) 9.5, Eos % (Auto) 1.7, Baso % (Auto) 1.3, Nucleat RBC Rel Count 0.2, Neut # (Auto) 3.8, Lymph # (Auto) 1.7, Finney # (Auto) 0.6, Eos # (Auto) 0.1, [...] for coordination of care (as documented) and cycf-nd-nwam counseling of patient and/or family. Dictated By: Taylor Tijerina APRN DD/ 1000 Signed By: <Electronically signed by CARMELA Tijerina> 11/02/22 1002 [facility] Work Phone: Progress note Author Taylor Tijerina [facility] February 01, 2023 11:23am Note Date/Time February 01, 2023 11:04am [facility] [place] [address] Hem/Onc Follow Up Note - OP Signed Patient: Nuvia Martin MR#: [id number] : 1945 Acct:[id number] Age/Sex: 77 / F Type: REG RCR [...] for coordination of care (as documented) and ruwj-hd-ervc counseling of patient and/or family. [facility] - Medical History Medical History: Medical History [...] % (Auto) 61.7, Lymph % (Auto) 26.2, Finney % (Auto) 9.2, Eos % (Auto) 2.0, Baso % (Auto) 0.9, Nucleat RBC Rel Count 0.1, Neut # (Auto) 4.2, Lymph # (Auto) 1.8, Finney # (Auto) 0.6, Eos # (Auto) 0.1, Baso # (Auto) 0.1 - Home Medications and Allergies Allergies/Adverse Reactions: Allergies cimetidine [From Tagamet] Allergy (Verified 02/01/23 10:56) Diarrhea bacitracin [From Neosporin (jyh-xaz-ihtpt)] Adverse Reaction (Verified 02/01/23 10:56) Blister contact metal agent Adverse Reaction (Verified 02/01/23 10:56) Rash neomycin [From Neosporin (wck-afd-vkxni)] Adverse Reaction (Verified 02/01/23 10:56) Blister petrolatum,white [From Petroleum Jelly] Adverse Reaction (Verified 02/01/23 10:56) Blister polymyxin B [From Neosporin (rad-tao-wpzju)] Adverse Reaction (Verified 02/01/2310:56) Blister Home Medications: [...] PO QNOON 12/17/19 [History Confirmed 02/01/23] omega 3-iob-ckt-fish oil 1,000 mg (120 mg-180 mg) capsule [...] by CARMELA Tijerina> 02/01/[address] [facility] Work Phone: Reason for referral (narrative)* Consultation (Routine) - Pending Review Specialty Diagnoses / Procedures Referred By David t Referred To Contact Pain Medicine Diagnoses Lumbar spondylosis 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 claudication Procedures UT OFFICE/OUTPATIENT NEW HIGH MDM 60 MINUTES Wily Prado MD [address] [address] Danitza Murray MD [address] [place] [address] Referral ID Status Reason Start Date Expiration Date Visits Requested Visits Authorized [id number] Pending Review Specialty Services Required 01/17/2024 07/15/2024 [...] section and content) DATE CREATED AUTHOR 10/04/2021 [facility] DATE CREATED AUTHOR AUTHOR'S ORGANIZ ATION 01/25/2022 [facility] DATE CREATED AUTHOR AUTHOR'S ORGANIZ ATION 02/23/2022 [facility] DATE CREATED AUTHOR AUTHOR'S ORGANIZ ATION 03/09/2024 [facility] DATE CREATED AUTHOR AUTHOR'S ORGANIZ ATION 05/13/2024 [facility] DATE CREATED AUTHOR AUTHOR'S ORGANIZ ATION 10/23/2024 [facility] EPIC DATE CREATED AUTHOR AUTHOR'S ORGANIZ ATION 01/30/2025 [facility] REASON FOR VISIT (unrecogniz ed section and content) Reason Comments Fall Reason Onset Date Comments Med Refill 06/16/2023 [facility] [place] Specialty Diagnoses / Procedures Referred By Contac t Referred To Contact Physical Therapy Diagnoses Acute bilateral low back pain with sciatica, sciatica laterality unspecified Lumbar spondylosis Procedures UT OFFICE/OUTPATIENT NEW HIGH MDM 60 MINUTES Wily Prado MD [address] [facility] [address] [place] [address] Som Sheffield, PT [address] [facility] [address] [place] [address] Referral ID Status Reason Start Date Expiration Date Visits Requested Visits Authorized [id number] Authorized Specialty Services Required 3 11/06/2023 10 10 Reason Onset Date Comments Med Refill 02/15/2024 Reason Onset Date Comments Med Refill 03/20/2024 Reason Onset Date Comments Med Refill 03/26/2024 Specialty Diagnoses / Procedures Referred By Contac t Referred To Contact Physical Therapy Diagnoses Muscle spasm of back lumbar paraspinal muscle spasms Procedures consult and treat Logan Kaur MD [address] [facility] [address] [place] [address] Jalyn Guan PT Referral ID Status Reason Start Date Expiration Date Visits Requested Visits Authorized [id number] Authorized Consult and Treat 12/20/2023 06/17/2024 15 [...] Active Jesse Tran MD Attending Provider Active Metallurgical Analyst Relationship Specialty Start Date End Date Wily Prado MD [address] [facility] [address] [place] [address] PCP - ACO Reach 10/07/22 Wily Prado MD [address] [facility] [address] [place] [address] PCP - General Family Medicine 10/28/22 Metallurgical Analyst Relationship Specialty Start Date End Date Wily Prado MD [address] [facility] [address] [place] [address] PCP - ACO Reach 10/07/22 Wily Prado MD [address] [facility] [address] [place] [address] PCP - General Family Medicine 10/28/22 Metallurgical Analyst Relationship Specialty Start Date End Date Wily Prado MD [address] [facility] [address] [place] [address] PCP - ACO Reach 10/07/22 Wily Prado MD [address] [facility] [address] [place] [address] PCP - General Family Medicine 10/28/22 Metallurgical Analyst Relationship Specialty Start Date End Date Wily Prado MD [address] [facility] [address] [place] [address] PCP - ACO Reach 10/07/22 Wily Prado MD [address] [place] [address] [place] [address] PCP - General Family Medicine 10/28/22 Metallurgical Analyst Relationship Specialty Start Date End Date Wily Prado MD [address] [facility] [address] [place] [address] PCP - ACO Reach 10/07/22 Wily Prado MD [address] [place] [address] [place] [address] PCP - General Family Medicine 10/28/22 Metallurgical Analyst Relationship Specialty Start Date End Date Wily Prado MD [address] [facility] [address] [place] [address] PCP - ACO Reach 10/07/22 Wily Prado MD [address] [facility] [address] [place] [address] PCP - General Family Medicine 10/28/22 Metallurgical Analyst Relationship Specialty Start Date End Date Wily Prado MD [address] [place] [address] [place] [address] PCP - ACO Reach 10/07/22 Wily Prado MD [address] [place] [address] [place] [address] PCP - General Family Medicine 10/28/22 Metallurgical Analyst Relationship Specialty Start Date End Date Wily Prado MD [address] [facility] [address] [place] [address] PCP - ACO Reach 10/07/22 Wily Prado MD [address] [facility] [address] [place] [address] PCP - General Family Medicine 10/28/22 Metallurgical Analyst Relationship Specialty Start Date End Date Wily Prado MD [address] [facility] [address] [place] [address] PCP - ACO Reach 10/07/22 Wily Prado MD [address] [facility] [address] [place] [address] PCP - General Family Medicine 10/28/22 Metallurgical Analyst Relationship Specialty Start Date End Date Wily Prado MD [address] [place] [address] [place] [address] PCP - ACO Reach 10/07/22 Wily Prado MD [address] [place] [address] [place] [address] PCP - General Family Medicine 10/28/22 Metallurgical Analyst Relationship Specialty Start Date End Date Wily Prado MD [address] [place] [address] [place] [address] PCP - ACO Reach 10/07/22 Wily Prado MD [address] [facility] [address] [place] [address] PCP - General Family Medicine 10/28/22 Metallurgical Analyst Relationship Specialty Start Date End Date Wily Prado MD [address] [place] [address] [place] [address] PCP - ACO Reach 10/07/22 Wily Prado MD [address] [place] [address] [place] [address] PCP - General Family Medicine 10/28/22 Metallurgical Analyst Relationship Specialty Start Date End Date Wily Prado MD [address] [place] [address] [place] [address] PCP - ACO Reach 10/07/22 Wily Prado MD [address] [facility] [address] [place] [address] PCP - General Family Medicine 10/28/22 Metallurgical Analyst Relationship Specialty Start Date End Date Wily Prado MD [address] [facility] [address] [place] [address] PCP - ACO Reach 10/07/22 Wily Prado MD [address] [facility] [address] [place] [address] PCP - General Family Medicine 10/28/22 Metallurgical Analyst Relationship Specialty Start Date End Date Wily Prado MD [address] [facility] [address] [place] [address] PCP - ACO Reach 10/07/22 Wily Prado MD [address] [facility] [address] [place] [address] PCP - General Family Medicine 10/28/22 Metallurgical Analyst Relationship Specialty Start Date End Date Wily Prado MD [address] [place] [address] [place] [address] PCP - ACO Reach 10/07/22 Wily Prado MD [address] [facility] [address] [place] [address] PCP - General Family Medicine 10/28/22 Metallurgical Analyst Relationship Specialty Start Date End Date Wily Prado MD [address] [place] [address] [place] [address] PCP - ACO Reach 10/07/22 Wily Prado MD [address] [place] [address] [place] [address] PCP - General Family Medicine 10/28/22 Metallurgical Analyst Relationship Specialty Start Date End Date Wily Prado MD [address] [place] [address] [place] [address] PCP - ACO Reach 10/07/22 Wily Prado MD [address] [place] [address] [place] [address] PCP - General Family Medicine 10/28/22 Metallurgical Analyst Relationship Specialty Start Date End Date Wily Prado MD [address] [place] [address] [place] [address] PCP - ACO Reach 10/07/22 Wily Prado MD [address] [facility] [address] [place] [address] PCP - General Family Medicine 10/28/22 Metallurgical Analyst Relationship Specialty Start Date End Date Wily Prado MD [address] [place] [address] [place] [address] PCP - ACO Reach 10/07/22 Wily Prado MD [address] [place] [address] [place] [address] PCP - General Family Medicine 10/28/22 Metallurgical Analyst Relationship Specialty Start Date End Date Wily Prado MD [address] [place] [address] [place] [address] PCP - ACO Reach 10/07/22 Wily Prado MD [address] [place] [address] [place] [address] PCP - General Family Medicine 10/28/22 Metallurgical Analyst Relationship Specialty Start Date End Date Wily Prado MD [address] [place] [address] [place] [address] PCP - ACO Reach 10/07/22 Wily Prado MD [address] [place] [address] [place] [address] PCP - General Family Medicine 10/28/22 Metallurgical Analyst Relationship Specialty Start Date End Date Wily Prado MD [address] [facility] [address] [place] [address] PCP - ACO Reach 10/07/22 Wily Prado MD [address] [place] [address] [place] [address] PCP - General Family Medicine 10/28/22 Goals [...] BE BASED ON THE PRIMARY CLINICAL RECORDS. [employer] [facility]. provides no warranty or guarantee of the accuracy or completeness of information in this document.
== END 2025-02-28 09:07 | disposition home or self-care (01) ==
LOC: MRI 09:06
PROVIDERS: PCP Family Medicine; Visit Provider Nurse Practitioner
DX: M48.062 Spinal stenosis, lumbar region with neurogenic claudication (principal); M51.369 Other intervertebral disc degeneration, lumbar region without mention of lumbar back pain or lower extremity pain
CPT/HCPCS: 72148

== ENCOUNTER 2025-04-22 07:59 | Outpatient (OUT) | payer MEDICARE, SELFPAY ==
--- OUTSIDE RECORDS SUMMARY | 2025-04-22 08:02 | XMS_ITS | Encounter Summary ---
Author Organization [facility] Address [address] [place] [address] Care Team Providers Care Office Services Associate Name Role Phone Nohemy Guajardo MD Unavailable Nohemy Guajardo MD Primary Care Provider [phone] Reason for Visit * ReasonOnset DateCommentsMed Crhbhg6804/16/2025 Encounter Details DateTypeDepartmentCare Team (Latest Contact Info)Idabwpeivwk59/02/2025Refill [facility] [address] [place] [address] [place] [address] Mariia Dos Santos LPN [address] [place] [address] Other insomnia Social History Tobacco UseTypesPacks/DayYears UsedDateSmoking Tobacco: Every DayCigarettes1.550 Smokeless Tobacco: Never Comments:11-20 cigs/day Alcohol UseStandard Drinks/WeekCommentsNever0 (1 standard drink = 0.6 oz pure alcohol)Caffeine intake: more than 4 cups per dayPHQ-2AnswerDate RecordedPatient Health Questionnaire-2 Kknil79406/02/2024CommentsUnknownSex and Gender InformationValueDate RecordedSex Assigned at BirthNot on fileLegal SexFemale 07/28/2022 8:06 PM EDTGender IdentityNot on fileSexual OrientationNot on file documented as of this encounter Miscellaneous Notes * Telephone Encounter - Mariia Dos Santos LPN - 04/16/2025 11:01 AM EST This was sent to her mail order please send to courtney pressley documented in this encounter Plan of Treatment DateTypeDepartmentCare Team (Latest Contact Info)Viibaiklymk36/18/2026 1:00 PM EDTOffice Visit [facility] [place] [facility] [address] [facility] [address] [place] [address] Nohemy Guajardo MD [address] [facility] [address] [place] [address] documented as of this encounter Visit Diagnoses Diagnosis Other insomnia documented in this encounter Additional Health Concerns AssessmentNoted TimePHQ-9 Depression Total Score: 10:00 AM EDT documented as of this encounter Care Teams Team MemberRelationshipSpecialtyStart DateEnd Date Nohemy Guajardo MD [address] [facility] [address] [place] [address] PCP - ACO Reach10/07/22 Nohemy Guajardo MD [address] [facility] [address] [place] [address] PCP - GeneralFamily Medicine10/28/22documented as of this encounter
--- OUTSIDE RECORDS SUMMARY | 2025-04-22 08:02 | XMS_ITS | Encounter Summary ---
Author Organization [facility] Address [address] [place] [address] Care Team Providers Care Production Department Supervisor Name Role Phone Nohemy Guajardo MD Unavailable Nohemy Guajardo MD Primary Care Provider Reason for Visit * ReasonOnset DateCommentsMed Uufiwg9904/15/2025 Encounter Details DateTypeDepartmentCare Team (Latest Contact Info)Bcfbrfcjbde32/01/2025Refill [facility] [address] [facility] [address] [place] [phone] Nohemy Guajardo MD [address] [facility] [address] [place] [address] Other insomnia Social History Tobacco UseTypesPacks/DayYears UsedDateSmoking Tobacco: Every DayCigarettes1.550 Smokeless Tobacco: Never Comments:11-20 cigs/day Alcohol UseStandard Drinks/WeekCommentsNever0 (1 standard drink = 0.6 oz pure alcohol)Caffeine intake: more than 4 cups per dayPHQ-2AnswerDate RecordedPatient Health Questionnaire-2 Fpmxq73606/02/2024CommentsUnknownSex and Gender InformationValueDate RecordedSex Assigned at BirthNot on fileLegal SexFemale 07/28/2022 8:06 PM EDTGender IdentityNot on fileSexual OrientationNot on file documented as of this encounter Plan of Treatment DateTypeDepartmentCare Team (Latest Contact Info)Ffblwazoiqe22/18/2026 1:00 PM EDTOffice Visit [facility] [place] [facility] [address] [place] [address] [place] [address] Nohemy Guajardo MD [address] [place] [address] [place] [address] documented as of this encounter Visit Diagnoses Diagnosis Other insomnia documented in this encounter Additional Health Concerns AssessmentNoted TimePHQ-9 Depression Total Score: 10:00 AM EDT documented as of this encounter Care Teams Team MemberRelationshipSpecialtyStart DateEnd Date Nohemy Guajardo MD [address] [facility] [address] [place] [address] PCP - ACO Reach10/07/22 Nohemy Guajardo MD [address] [facility] [address] [place] [address] PCP - GeneralFamily Medicine10/28/22documented as of this encounter
--- OUTSIDE RECORDS SUMMARY | 2025-04-22 08:02 | XMS_ITS | Clinical Summary ---
Author Organization [facility] Address [address] [place] [address] Care Team Providers Care Railway Switchman Name Role Phone Nohemy Prado MD Unavailable Nohemy Prado MD Primary Care Provider [phone] Allergies Active AllergyReactionsCriticalityNoted OjylWkvpljbpDlyvoejmem88/19/2023 Other Reaction(s): Blister Bacitracin-Polymyxin BBxdpvnd38/18/2807NmzzijdjywMtgjxms61/18/2023Neomycin 02/01/2023 Other Reaction(s): Blister YmvxhybtttZudzupg59/18/2023Polymyxin B002/01/2023 Other Reaction(s): Blister Medications MedicationSigDispense QuantityRefillsLast FilledStart DateEnd DateStatus Calcium Citrate-Vitamin D (CALCIUM CITRATE + D3 MAXIMUM PO) Take 1 tablet by mouth 1 (one) time each day.Active EVENING PRIMROSE OIL PO Take 1 application by mouth 1 (one) time each day.Active [place]-3 Fatty Acids (Fish Oil) 1000 MG capsule delayed-release Take 1 capsule by mouth 1 (one) time each day.Active HORSE CHESTNUT PO Take 1 tablet by mouth 1 (one) time each day.Active Docusate Sodium (STOOL SOFTENER LAXATIVE PO) Take 1 tablet by mouth if neededActive Ventolin HFA 108 (90 Base) MCG/ACT inhaler Inhale 2 puffs every 6 (six) hours if needed for wheezing or shortness of breath.Active Alpha Lipoic Acid 200 MG capsule Take 1 tablet by mouth 1 (one) time each day.Active cetirizine (ZyrTEC ALLERGY) 10 MG tablet Take 1 tablet by mouth 1 (one) time each day at the same time.Active famotidine (Pepcid) 20 MG tablet Take 1 tablet by mouth as needed at bedtime for indigestion or heartburn.Active ferrous sulfate 325 (65 Fe) MG tablet Take 1 tablet by mouth 1 (one) time each day at the same time.12/01/2021ctive ipratropium-albuterol (Duo-Neb) 0.5-2.5 mg/3 mL nebulizer solution Take 3 mL by nebulization every 6 (six) hours. PRN3Active melatonin 5 MG tablet Take 1 tablet by mouth if neededActive Multiple Vitamin (Multivitamin Adult) tablet Take 1 tablet by mouth 1 (one) time each day at the same time.Active niacin 500 MG tablet Take 1 tablet by mouth 1 (one) time each day at the same time.Active alpha tocopherol (Vitamin E) 400 units capsule Take 2 capsules by mouth 1 (one) time each day at the same time.Active zinc gluconate 50 MG tablet Take 1 tablet by mouth 1 (one) time each day at the same time.Active co-enzyme Q-10 30 MG capsule Take 30 mg by mouth in the morning.Active magnesium 30 MG tablet Take 30 mg by mouth in the morning.Active sodium chloride 1 g tablet Take 1 g by mouth Daily as needed.Active polyethylene glycol, PEG, 3350 (Miralax) 17 g packet Take 17 g by mouth Daily as needed.Active naproxen (Naprosyn) 500 MG tablet Indications:Hand weaknessTAKE 1 TABLET TWICE DAILY WITH FOOD OR MILK 180 tablet 5Active levothyroxine (Synthroid, Levoxyl) 88 MCG tablet Indications:Acquired hypothyroidismTAKE 1 TABLET IN THE MORNING BEFORE A MEAL 90 tablet 5Active omeprazole (PriLOSEC) [address] capsule Indications:Gastroesophageal reflux disease without esophagitisTAKE 1 CAPSULE EVERY DAY 100 capsule 5Active fenofibrate (Tricor) 145 MG tablet Indications:Mixed hyperlipidemiaTAKE 1 TABLET EVERY DAY 100 tablet 5Active Stiolto Respimat 2.5-2.5 MCG/ACT aerosol solution inhaler Indications:Chronic obstructive pulmonary disease, unspecified ([facility])INHALE 2 PUFFS EVERY DAY 12 g 5Active insulin pen needle (Droplet Pen [place]) 32G x 4 mm [facility] Indications:Other specified diabetes mellitus with other specified complication, unspecified whether mcc insulin use ([facility])USE INSTRUCTED 300 each 5Active OXcarbazepine (Trileptal) 300 MG tablet Indications:Other diabetic neurological complication associated with type 2 diabetes mellitus ([facility])TAKE 1 TABLET IN THE MORNING AND TAKE 1 TABLET BEFORE BEDTIME 200 tablet 5Active torsemide (Demadex) 10 MG tablet Indications:LymphedemaTAKE 1 TABLET EVERY MORNING 100 tablet 5Active clopidogrel (Plavix) 75 MG tablet Indications:Stenosis of carotid artery, unspecified lateralityTAKE 1 TABLET EVERY MORNING 100 tablet 5Active insulin glargine (Lantus SoloStar) 100 UNIT/ML pen Indications:Type 2 diabetes mellitus with diabetic polyneuropathy, with long- term current use of insulin ([facility])Inject 22 Units under the skin at bedtime 5Active gabapentin (Neurontin) 600 MG tablet Indications:Type 2 diabetes mellitus with diabetic polyneuropathy, with long- term current use of insulin ([facility])Take 1 tablet (600 mg) by mouth in the morning and 1 tablet (600 mg) in the evening and 1 tablet (600 mg) before bedtime. 300 tablet 5Active amLODIPine (Norvasc) 10 MG tablet Indications:Essential hypertensionTAKE 1 TABLET (10 MG) BY MOUTH DAILY. 100 tablet 5Active [employer] Ultra test strip Indications:Type 2 diabetes mellitus with diabetic polyneuropathy, with long- term current use of insulin ([facility]),Type 2 diabetes mellitus with diabetic peripheral angiopathy without gangrene, without long-term current use of insulin ([facility])USE TO TEST BLOOD SUGAR TWICE DAILY 200 strip 5Active lisinopril 40 MG tablet Indications:Essential hypertensionTAKE 1 TABLET EVERY MORNING 100 tablet 5Active hydroCHLOROthiazide (HYDRODiuril) 25 MG tablet Indications:Essential hypertensionTAKE 1 TABLET EVERY MORNING 100 tablet 5Active metoprolol tartrate (Lopressor) 25 MG tablet Indications:Essential hypertensionTAKE 1 TABLET THREE TIMES DAILY (IN THE MORNING, IN THE EVENING, AND BEFORE BEDTIME) 270 tablet 5Active atorvastatin (Lipitor) 20 MG tablet Indications:Essential hypertensionTAKE 1 TABLET EVERY DAY 90 tablet 5Active ofloxacin (Ocuflox) 0.3 % ophthalmic solution INSTILL 1 DROP INTO RIGHT EYE 4 TIMES A DAY5Active prednisoLONE acetate (Pred-Forte) 1 % ophthalmic suspension PUT 1 DROP IN RIGHT EYE 4 TIMES A DAY5Active ALPRAZolam (Xanax) 0.5 MG tablet Indications:Other insomniaTake 1 tablet (0.5 mg) by mouth as needed at bedtime for anxiety 30 tablet /ctive Janumet 50-500 MG tablet Indications:Type 2 diabetes mellitus with diabetic polyneuropathy, with long- term current use of insulin (HCC)TAKE 2 TABLETS EVERY MORNING 180 tablet 5Active SITagliptin-metFORMIN (Janumet) 50-500 MG tablet Indications:Type 2 diabetes mellitus with diabetic polyneuropathy, with long- term current use of insulin (HCC)Take 2 tablets by mouth in the morning. 180 tablet /07/2024Discontinued ALPRAZolam (Xanax) 0.5 MG tablet Indications:Other insomniaTake 1 tablet (0.5 mg) by mouth as needed at bedtime for anxiety 30 tablet Discontinued(Reorder) ALPRAZolam (Xanax) 0.5 MG tablet Indications:Other insomniaTake 1 tablet (0.5 mg) by mouth as needed at bedtime for anxiety 30 tablet Discontinued(Reorder) Active Problems ProblemNoted DateDiagnosed DateBilateral carotid rpftpo7410/11/2024Routine general medical examination at health care iastccmp44/12/2024therosclerosis of aorta 12/26/2023 Assessment & Plan (12/26/2023 11:18 AM EDT): Found on imaging. Make sure we control DM HTN A1c ordered Other secondary pulmonary vquqoqyppypj38/12/2024 Assessment & Plan (12/26/2023 11:20 AM EDT): Ound on Echo No CHF sxs or edema Epilepsy, unspecified, not intractable, without status pltkkrkgamw43/12/2024 Assessment & Plan (10/11/2024 3:53 PM EDT): Controlled with meds Assessment & Plan (12/26/2023 11:22 AM EDT): Stable Follow up with Neuro as needed Saw Neuro last week also said back non surgical Heart failure, /12/2024 Assessment & Plan (10/11/2024 3:53 PM EDT): Continue current meds. Assessment & Plan (12/26/2023 11:18 AM EDT): No symptoms currently Peripheral vascular disease, wnbriichqjr90/12/2024 Assessment & Plan (12/26/2023 11:19 AM EDT): Continue current meds Diabetes mellitus with peripheral vascular ammyopr4512/26/2023 Assessment & Plan (10/11/2024 3:53 PM EDT): No Tobacco use Follow ADA 1800 diet low carbohydrate Continue Med Compliance Goal LDL less than 100Goal BP 130/80 Goal HgbA1c < 7.0% Monitor Feet, monitor for infection Needs Exercise Yearly eye exams Prior to your visit today we reviewed your chart and outlined testing and treatment needed foryour care. Reviewed poissble complications of diabetes including, [...] Continue Med Compliance Goal LDL less than 100Goal BP 130/80 Goal HgbA1c < 7.0% Monitor Feet, monitor for infection Needs Exercise Yearly eye exams Prior to your visit today we reviewed your chart and outlined testing and treatment needed foryour care. Reviewed poissble complications of diabetes including, loss of vision, kidney failure and increased risk of heart attacks and stroke. We made recommendations on how to control your blood sugars, and minimize your risk of these complications. We discussed your current barriers to a healthy living and importance of healthy diet and exercise. OLIVA (obstructive sleep apnea)12/20/2023 Assessment & Plan (12/20/2023 2:45 PM EDT): Get old chart rasheed PSGs. Hypervitaminosis B612/20/2023 Assessment & Plan (12/20/2023 3:06 PM EDT): Stop B-complex. Remain on MVI alone. Redo B6 4-8 w. Lumbar paraspinal muscle spasm12/20/2023 Assessment & Plan (12/20/2023 3:04 PM EDT): PT - add lumbar spine to curr regimen. I do not feel that there is a surgical lesion at present. May have tizanidine 2 mg hs, incr to 4 mg if need be, if/when pt decides. Carpal tunnel syndrome, qoqkniiyu89/06/2024 Assessment & Plan (12/20/2023 3:03 PM EDT): Use splints B nightly! PT/OT please fit for B wrist splints.) Acute zoyjelrv72/11/2024gitation states as acute reaction to exceptional (gross) kecmjg7608/25/2023 Assessment & Plan (04/02/2025 1:27 PM EST): Patient's Medicine is effective at controlling symptoms at current dose and frequency. PDMP reviewed with no evidence of overuse and abuse D/W patient to avoid use of benzodiazepines when consuming alcohol Advised against operating heavy machinery and driving long distances while on medicines. Assessment & Plan (05/08/2024 8:57 AM EST): Patient's Medicine is effective at controlling symptoms at current dose and frequency. PDMP reviewed with no evidence of overuse and abuse D/W patient to avoid use of benzodiazepines when consuming alcohol Advised against operating heavy machinery and driving long distances while on medicines. Breathing jalcypx8708/25/2023H/O carotid cglashvbrpskyw76/11/2024Hypertensive tioylkfxb68/11/2024 Assessment & Plan (05/08/2024 9:07 AM EST): Add Norvasc Take all current blood medications If with severe or stroke like symptoms got to ER Enwehdmuofepn82/11/4492Gjenvzhewtvvlp26/11/2024cute bilateral low back pain with xwvdyzmi55/26/2023 Assessment & Plan (05/10/2023 3:51 PM EST): Stretching exercises. Will do XR and meds and PT first. If no improvement consider MRI Discontinue Naprosyn Added Baclofen and increased the Tramadol Lumbar adjacent segment disease with aijbtqjyhbacsdtox47/14/2023 Assessment & Plan (08/25/2023 2:25 PM EDT): Do an MRI Consider Referral pain specialist or neurosurgeon Chronic obstructive pulmonary cflnqyj2510/31/2022arotid artery osyyvodw26/18/2023 Assessment & Plan (08/25/2023 2:24 PM EDT): Needs to f/up with vascular surgery Carpal tunnel qjecvrfm62/18/2023omplicated pqebbpjt77/18/2023iabetes mellitus 10/31/2022 Assessment & Plan (04/02/2025 1:26 PM EST): No Tobacco use Follow ADA 1800 diet low carbohydrate Continue Med Compliance Goal LDL less than 100Goal BP 130/80 Goal HgbA1c < 7.0% Monitor Feet, monitor for infection Needs Exercise Yearly eye exams Prior to your visit today we reviewed your chart and outlined testing and treatment needed foryour care. Reviewed poissble complications of diabetes including, loss of vision, kidney failure and increased risk of heart attacks and stroke. We made recommendations on how to control your blood sugars, and minimize your risk of these complications. We discussed your current barriers to a healthy living and importance of healthy diet and exercise. Assessment & Plan (05/08/2024 8:56 AM EST): No Tobacco use Follow ADA 1800 diet low carbohydrate Continue Med Compliance Goal LDL less than 100Goal BP 130/80 Goal HgbA1c < 7.0% Monitor Feet, monitor for infection Needs Exercise Yearly eye exams Prior to your visit today we reviewed your chart and outlined testing and treatment needed foryour care. Reviewed poissble complications of diabetes including, loss of vision, kidney failure and increased risk of heart attacks and stroke. We made recommendations on how to control your blood sugars, and minimize your risk of these complications. We discussed your current barriers to a healthy living and importance of healthy diet and exercise. Grade II diastolic zxkxoblsjqo53/18/2023 Assessment & Plan (10/11/2024 3:56 PM EDT): Needs better BP control Benign essential ajwdefrnpdum16/18/2023 Assessment & Plan (04/02/2025 1:25 PM EST): Our specific goals, for your hypertension, is to keep your blood pressure less than 140/90, and theimportance of weight control. We made recommendations on [...] taking them as prescribed. DASH diet handouts Assessment & Plan (10/11/2024 3:54 PM EDT): Our specific goals, for your hypertension, is to keep your blood pressure less than 140/90, and theimportance of weight control. We made recommendations on [...] as prescribed. DASH diet handouts Gastroesophageal reflux uuzabso1910/31/2022Hand vimaztho65/18/2023Hyperlipidemia 10/31/2022 Assessment & Plan (04/02/2025 1:26 PM EST): This is a chronic medical condition that is stable since last assessment. No changes in treatment are suggested at this time. Continue Current meds. Assessment & Plan (05/08/2024 9:06 AM EST): This is a chronic medical condition that is stable since last assessment. No changes in treatment are suggested at this time. Continue Current meds. Gphzhprlnven57/18/1641Yafbebdhvrhfvt73/18/2023Iron deficiency blbawb8310/31/2022 Left ffrjmojowtojvig82/18/3084Nuorekfvtb26/18/3767Kymwizgnsqdd52/18/2023Migraine without aura and without status migrainosus, not gyrzhmhjsdp86/18/2023 Assessment & Plan (12/20/2023 3:05 PM EDT): (Continue Mg.) Obesity (BMI 30-39.9)10/31/20222259Uqrgvtrmvuezgc88/18/2023Osteopenia of left hip 10/31/20229376Cyerzavvfrgjeh22/18/2023rimary ovarian adobcoo0610/31/2022Renal cysts, acquired, iofnczaqg75/18/6229Fskhyw30/18/2023Transient ischemic zizwjb4810/31/2022 White matter yqqwwah2810/31/2022 Resolved Problems ProblemNoted DateDiagnosed DateResolved DateAcute exacerbation of chronic obstructive pulmonary /3Diabetic oqdoouhahi79/18/2023 12/27/2022 Encounters DateTypeDepartmentCare AoccHynwtjbvzal52/03/2025Refrome [facility] [address] [place] [id number] Latonya Marie, LUMA Type 2 diabetes mellitus with diabetic polyneuropathy, with long-term current use of insulin (HCC)04/16/2025[facility] [address] [place] [address] Mariia Dos Santos LPN Other pdhoahud80/01/2025[facility] [address] [place] [address] Nohemy Prado MD Other /20/2025bstract [facility] [address] [place] [address] Nohemy Prado MD 04/04/2025bstract [facility] [address] [place] [address] Nohemy Prado MD 04/02/2025 1:00 PM ESTOffice Visit [facility] [place] [facility] [address] [place] [address] Nohemy Prado MD Routine general medical examination at health care facility (Primary Dx); Benign essential hypertension; Estrogen deficiency; Smoker; Mixed hyperlipidemia; Type 2 diabetes mellitus with diabetic peripheral angiopathy without gangrene, without long-term current use of insulin (HCC); Agitation states as acute reaction to exceptional (gross) stress; Abnormal Doppler ultrasound of carotid qwkblf7804/02/2025amboo flowsheet [facility] [place] [facility] [address] [place] [address] Nohemy rPado MD 04/02/20259501Wuhbqu32/31/2025bstract [facility] [address] [place] [address] Nohemy Prado MD 03/11/2025[facility] [address] [place] [address] Nohemy Prado MD Other qedqkuft77/27/2025[facility] [address] [place] [address] Madiha Negrete MA 02/28/2025linisync Result Encounter [facility] External Department Unsolicited Provider, Generic External Data 02/25/2025Refill [facility] [address] [facility] [address] [place] [address] Latonya Marie PA Essential slftnkbcahal57/06/2025Refill [facility] [address] [facility] [address] [place] [address] Nohemy Prado MD Essential fjxiqilrgijm22/30/2025Refill [facility] [address] [facility] [address] [place] [address] Nohemy Prado MD Other /29/2025Refill [facility] [address] [facility] [address] [place] [address] Latonya Marie PA Type 2 diabetes mellitus with diabetic polyneuropathy, with long-term current use of insulin (HCC)from Last 3 Months Immunizations ImmunizationAdministration DatesNext DueInfluenza, High Dose Seasonal, Preservative Free01/06/2024,03/19/2022Influenza, Recombinant, injectable, preservative free04/21/2021Influenza, Seasonal, Quadrivalent, Adjuvanted 03/21/2023Novel btcyiuwab-F3L4-51, preservative-free06/13/2009Pneumococcal Conjugate PCV 13011/07/2020neumococcal Polysaccharide TFRP1572RSV, recombinant, protein subunit RSVpreF, adjuvant reconstitu, 120mcg/0.5mL, PF (Arexvy)06/17/2023Tdap01/04/2022,10/30/2021Zoster, Zolbzpuysiw04/25/2021 Family History Medical HistoryRelationNameCommentsCancerFatherCancerMotherDiabetesMotherHeart diseaseMotherHypertensionMotherRelationNameStatusCommentsFatherDeceasedMother DeceasedSister3 sisters Social History Tobacco UseTypesPacks/DayYears UsedDateSmoking Tobacco: Every DayCigarettes1.550 Smokeless Tobacco: Never Tobacco Cessation:Ready to Q uit: Not Asked; Counseling Given: Not Answered Comments:11- cigs/day Alcohol UseStandard Drinks/WeekCommentsNever0 (1 standard drink = 0.6 oz pure alcohol)Caffeine intake: more than 4 cups per dayPHQ-2AnswerDate RecordedPatient Health Questionnaire-2 Fseln57406/02/2024CommentsUnknownSex and Gender InformationValueDate RecordedSex Assigned at BirthNot on fileLegal SexFemale 07/28/2022 8:06 PM EDTGender IdentityNot on fileSexual OrientationNot on file Last Filed Vital Signs Vital SignReadingTime TakenCommentsBlood Jpmkarbf194/6804/02/2025 1:15 PM EST Ojvkj282904/02/2025 1:15 PM ESTTemperature--Respiratory Wmkk701107/09/2023 8:24 AM ESTOxygen Rezwqrcnyu19%04/02/2025 1:15 PM ESTInhaled Oxygen Concentration-- Ygyrmo36.3 kg (166 lb)04/02/2025 1:15 PM LHEUvnywq992.9 cm (4' 11 )04/02/2025 1:15 PM ESTBody Mass Index33.5304/02/2025 1:15 PM EST Plan of Treatment DateTypeDepartmentCare Team (Latest Contact Info)Svdtrwmpnac35/18/2026 1:00 PM EDTOffice Visit [facility] [place] [facility] [address] [facility] [address] [place] [address] Nohemy Prado MD [address] [facility] [address] [place] [address] Health MaintenanceDue DateLast DoneCommentsLung Cancer Screening Shared Decision Chwreo81 1945Diabetes: Urine Protein Nlqyxyqzo00/26/461201/, 10/28/2020, 10/22/2019COVID-19 Vaccine ( season)6106/12/2024, 03/14/2024, 03/21/2023, Additional history existsDiabetes: Hemoglobin A1C 6106/02/2024, 10/11/2024, 12/26/2023, Additional history existsMedicare Annual Wellness (AWV)6106/02/2024, 12/26/2023, 12/27/2022, Additional history existsDiabetes: Retinopathy Tvtqsimog78/30/424473, 12/13/2024, 11/30/2024, Additional history existsFIT-YUYFcinuwcwwsld57/10/2020, 11/23/2019 Pneumococcal Vaccine: 65+ JkkcaClyicyign30/25/2021, 2018FOBTDiscontinued 9520JksbvryygplEvbazyglcdyy05/07/2022, 2Colorectal Cancer ScreeningDiscontinuedInfluenza RkomnkiQzctkiago20/28/2025, 01/06/2024, 03/21/2023, Additional history existsCT ColonographyDiscontinuedFITDiscontinued SigmoidoscopyDiscontinued Procedures Procedure NamePriorityDate/TimeAssociated DiagnosisCommentsPOCT GLYCATED HEMOGLOBIN, JIKIBIndichd59/18/2025 1:26 PM EST Type 2 diabetes mellitus with diabetic peripheral angiopathy without gangrene, without long-term current use of insulin (HCC) DIABETIC RETINOPATHY SCREENING - OU - BOTH LMYLTywgiun05/30/2025 10:31 AM EDT MR LUMBAR SPINE WO CON02/28/2025 12:22 PM EDT MICROALBUMIN / CREATININE URINE XMTDRAamaeoq85/26/2023 3:42 PM EST Type 2 diabetes mellitus with diabetic polyneuropathy, with long-term current use of insulin (HCC) YTGXUGCDTSKYchcvwn02/23/2022 12:00 PM EDT Iron deficiency anemia secondary to blood loss (chronic) Anemia, unspecified OCC BLD IMMUNO BABESQXxltffl89/28/2021 LAB COLOGUARD?? COLON CANCER XDDIWSLozewyq47/10/2020 from Last 3 Months or Most Recently Relevant to Health Maintenance Results * POCT Glycated hemoglobin, total (04/02/2025 1:26 PM EST)ComponentValueRef RangeTest MethodAnalysis TimePerformed AtPathologist SignatureHemoglobin A1C 4.9Specimen (Source)Anatomical Location / LateralityCollection Method / Volume Collection TimeReceived OmbzIuqer92/18/2025 1:26 PM EST Narrative Authorizing ProviderResult TypeResult StatusNohemy Prado MDPOINT OF CARE TEST ENTER/EDIT ORDERABLESFinal Result * Diabetic Retinopathy Screening - OU - Both Eyes (03/14/2025 10:31 AM EDT) ComponentValueRef RangeTest MethodAnalysis TimePerformed AtPathologist SignatureRESULTSndrAnatomical RegionLateralityModalityHeadOther Narrative Authorizing ProviderResult TypeResult StatusNohemy Prado MDOPHTH PHOTOGRAPHY Final Result * MR LUMBAR SPINE WO CON (02/28/2025 12:22 PM EDT)Anatomical RegionLaterality ModalityOtherSpecimen (Source)Anatomical Location / LateralityCollection Method / VolumeCollection TimeReceived Time02/28/2025 12:22 PM EDT Narrative 02/28/2025 12:24 PM EDT [facility] ?[address] ? [place] [address] ? Magnetic Resonance Report ? Signed ? Patient: JARAD,LOVELY A ?MR#: [id number] ?? : 1945 ?Acct:[id number] ?? Age/Sex: 79 / F ?ADM Date: 02/28/25 ?? Loc: MRI ? Attending Dr: Angi Powers CATTLE TRADER ? Ordering Physician: Angi Powers NP ?? Date of Service: 02/28/25 ?? Procedure(s): MR lumbar spine wo con ?? Accession Number(s): [id number] ? cc: NOHEMY PRADO ; Angi Powers NP ? [facility] ? [address] ? [place] [address] ? Patient Name: ?? LOVELY ABRAHAM ? MRN: [id number] ? date: 1945 ?Sex: F ?? Assigned Patient Location: MRI ?? Current Patient Location: MRI ?? Accession/Order Number: [id number] ?? Exam Date: 02/28/2025 ??09:35 ?Report Date: 02/28/2025 ??12:22 ? At the request of: ?? ANGI ??AI ??CATTLE TRADER ? Procedure: ??MR lumbar spine wo con ? MRI of the lumbar spine performed without contrast ? INDICATION: Neurogenic claudication ? COMPARISON: MRI lumbar spine 09/16/2023 ? FINDINGS: Lumbar vertebral heights are maintained. ??Anterolisthesis L3-4 and ?? L4-L5 identified 3 mm and 7 mm respectively, mildly progressed. ??Related to ?? the advanced facet arthropathy these levels. ??Otherwise moderate ?? intervertebral space narrowing L3-S1. ??Degenerative marrow changes L4-5 noted ?? appearing predominantly sclerotic Modic type III. ??Conus medullaris terminates ?? normally at there are simple cyst right kidney. ??Left renal cysts noted 1 cm ?? size, has some intermediate T2 characteristics but too small to adequately ?? characterize by cross-sectional imaging. ??Common bile duct is prominent 9 mm. ? T12-L2: Disc desiccation with facet arthropathy. ??No significant disc disease ?? or central canal or foraminal narrowing identified. ? At L2-3: Broad-based disc bulge with mild facet arthropathy and facet joint ?? effusion. ??Mild central canal narrowing. ??There is minimal foraminal ?? narrowing. ? L3-4: Circumferential disc bulge with endplate osteophytosis extending into ?? both foramina zones and moderate severe facet arthropathy. ??Slight uncovering ?? the posterior disc as well. ??There is slight cranial migration of disc noted 5 ?? mm. ??There is moderate bilateral neural from narrowing. ??There is moderate ?? central canal and mjjb-yj-ermdosnj right-sided and moderate left-sided ?? subarticular recess narrowing. ? L4-5: Circumferential disc bulge with uncovering the posterior disc due to the ?? anterolisthesis. ??There is moderate severe left and severe right neural ?? foraminal narrowing with mass effect on the exiting L4 nerve root. ??There is ?? severe right-sided and moderate severe left-sided subarticular recess ?? narrowing correlate with right greater than left L5 radiculopathy. ??There is a ?? 6 mm synovial cyst not well-visualized ?? Images Otherwise moderate central canal stenosis. ? L5-S1: Circumferential disc bulge with moderate facet arthropathy and endplate ?? osteophytosis extending both foramina zones. ??There is moderate right-sided ?? and vyzbheht-dp-jnrkaz left-sided neural foraminal narrowing with encroachment ?? upon the exiting left-sided L5 nerve root. ??Additionally, there is a 6 mm ?? synovial cysts contribute to the left foraminal encroachment. ??Correlate with ?? left L5 radiculopathy. ? MR/MR lumbar spine wo con ?? IMPRESSION: Stable multilevel degenerative changes greatest lower lumbar spine ?? predominantly caused by posterior element hypertrophic changes. ? Please correlate with possible right L4 and L5 radiculopathy due to the right ?? foraminal zone and subarticular zone encroachment and correlate with possible ?? left L5 radiculopathy due to the left foraminal zone encroachment. ??Otherwise ?? stable moderate multilevel canal narrowing. ? Impression dictated by: Benja Escudero M.D. ??02/28/2025 12:22 PM ? Dictation Location: [place] [address] ? Electronically authenticated by: [id number] ??Y ?? Date: 02/28/2025 ??12:22 ? Dictated By: ?Benja Escudero M.D. ? Signed By: ?02/28/25 1224 ? DD/ 1222 ? TD/TT: ? Expanded Duty Dental Assistant: Procedure Note Radiology, Radiologist, - 02/28/2025 [facility] [place] [id number] Magnetic Resonance Report Signed Patient: LOVELY ABRAHAM AMR#: [id number] : 1945cct:[id number] Age/Sex: 79 / FADM Date: 02/28/25 Loc: MRI Attending Dr: Angi Powers NP Ordering Physician: Angi Powers NP Date of Service: 02/28/25 Procedure(s): MR lumbar spine wo con Accession Number(s): [id number] cc: NOHEMY PRADO ; Angi Powers NP The [address] [address] Patient Name: LOVELY ABRAHAM MRN: [id number] date: 1945 Sex: F Assigned Patient Location: MRI Current Patient Location: MRI Accession/Order Number: [id number] Exam Date: 02/28/2025 09:35 Report Date: 02/28/2025 12:22 At the request of: ANGI POWERS NP Procedure: MR lumbar spine wo con MRI of the lumbar spine performed without contrast INDICATION: Neurogenic claudication COMPARISON: MRI lumbar spine 09/16/2023 FINDINGS: Lumbar vertebral heights are maintained. Anterolisthesis L3-4and L4-L5 identified 3 mm and 7 mm respectively, mildly progressed. Relatedto the advanced facet arthropathy these levels. Otherwise moderate intervertebral space narrowing L3-S1. Degenerative marrow changes L4-5noted appearing predominantly sclerotic Modic type III. Conus medullaristerminates normally at there are simple cyst right kidney. Left renal cysts noted 1cm size, has some intermediate T2 characteristics but too small to adequately characterize by cross-sectional imaging. Common bile duct is prominent 9mm. T12-L2: Disc desiccation with facet arthropathy. No significant discdisease or central canal or foraminal narrowing identified. At L2-3: Broad-based disc bulge with mild facet arthropathy and facetjoint effusion. Mild central canal narrowing. There is minimal foraminal narrowing. L3-4: Circumferential disc bulge with endplate osteophytosis extendinginto both foramina zones and moderate severe facet arthropathy. Slightuncovering the posterior disc as well. There is slight cranial migration of discnoted 5 mm. There is moderate bilateral neural from narrowing. There is moderate central canal and erez-nv-mccuxoci right-sided and moderate left-sided subarticular recess narrowing. L4-5: Circumferential disc bulge with uncovering the posterior disc due tothe anterolisthesis. There is moderate severe left and severe right neural foraminal narrowing with mass effect on the exiting L4 nerve root. Thereis severe right-sided and moderate severe left-sided subarticular recess narrowing correlate with right greater than left L5 radiculopathy. Thereis a 6 mm synovial cyst not well-visualized Images Otherwise moderate central canal stenosis. L5-S1: Circumferential disc bulge with moderate facet arthropathy andendplate osteophytosis extending both foramina zones. There is moderateright-sided and pbxrrfvf-qv-ewhfjb left-sided neural foraminal narrowing withencroachment upon the exiting left-sided L5 nerve root. Additionally, there is a 6 mm synovial cysts contribute to the left foraminal encroachment. Correlatewith left L5 radiculopathy. MR/MR lumbar spine wo con IMPRESSION: Stable multilevel degenerative changes greatest lower lumbarspine predominantly caused by posterior element hypertrophic changes. Please correlate with possible right L4 and L5 radiculopathy due to theright foraminal zone and subarticular zone encroachment and correlate withpossible left L5 radiculopathy due to the left foraminal zone encroachment.Otherwise stable moderate multilevel canal narrowing. Impression dictated by: Benja Escudero M.D. 02/28/2025 12:22 PM Dictation Location: [place] [address] Electronically authenticated by: [id number] Y Date: 2:22 Dictated By: Benja Escudero M.D. Signed By:02/28/25 1224 DD/ 1222 TD/TT: Expanded Duty Dental Assistant: Authorizing ProviderResult TypeResult StatusGeneric External Data Provider CLINISYNC IMAGINGFinal Result * (ABNORMAL) Microalbumin / creatinine, urine ratio (05/10/2023 3:42 PM EST) ComponentValueRef RangeTest MethodAnalysis TimePerformed AtPathologist SignatureCREATININE, RANDOM PYMUG1637 - 275 mg/dLQUESTALBUMIN, URINE7.5See Note: mg/dLQUESTComment: Reference Range: Reference Range Not established ALBUMIN/CREATININE RATIO, RANDOM [id number](H)<30 mcg/mg creatQUESTComment: The ADA defines abnormalities in albumin excretion as follows: Albuminuria Category ?Result (mcg/mg creatinine) Normal to Mildly increased <30 Moderately increased ? 30-299 Severely increased > OR = 300 The ADA recommends that at least two of three specimens collected within a 3-6 month period be abnormal before considering a patient to be within a diagnostic category. Specimen (Source)Anatomical Location / LateralityCollection Method / Volume Collection TimeReceived TimeUrineUrine specimen obtained by clean catch procedure / Iqrvsal2705/10/2023 3:42 PM EST05/10/2023 3:42 PM EST Narrative Resulting Agency Comment Performing Organization Information ?Site ID: [id number] ?Name: [facility] ?Address: [address] [place] [address], [address] [place] [address], [place] [address] ?Director: Дмитрий Mendoza MD Authorizing ProviderResult TypeResult StatusNohemy Prado MDLAB URINE ORDERABLES Final ResultPerforming OrganizationAddressCity/State/ZIP CodePhone Number [facility] * Colonoscopy (01/05/2022 12:00 PM EDT)Anatomical RegionLateralityModality EndoscopySpecimen (Source)Anatomical Location / LateralityCollection Method / VolumeCollection TimeReceived Time01/05/2022 12:00 PM EDT Narrative 01/05/2022 12:00 PM EDT PERFORMED AT [facility] LOCATION:[id number] Procedure Note CONVERSION, GENERIC - 09/29/[address] [facility] LOCATION:[id number] Authorizing ProviderResult TypeResult StatusJesse Rahman MDENDOSCOPY PROCEDURE ORDERABLESFinal Result * OCC BLD IMMUNO SCREEN (11/10/2020)ComponentValueRef RangeTest MethodAnalysis TimePerformed AtPathologist SignatureOCCULT BLOODNEGATIVENEGATIVENOMS LEGACY EXTERNAL LABPERFORMING LAB:see noteNOMS LEGACY EXTERNAL LABComment:[address] Laboratory - Chief Design Drafter Latonya Jarrett,[place] [address] ,Ext. [phone] specimen (Source)Anatomical Location / LateralityCollection Method / VolumeCollection TimeReceived Time11/10/2020 Narrative Authorizing ProviderResult TypeResult Yue Prado MDECW LABSFinal Result Performing OrganizationAddressty/State/ZIP CodePhone Number [facility] * Cologuard?? colon cancer screening (11/23/2019)ComponentValueRef RangeTest MethodAnalysis TimePerformed AtPathologist SignatureCOLOGUARD RESULT REPORTABLENegativeNot ApplicableNOMS LEGACY EXTERNAL LABComment: A negative result indicates a low likelihood [...] (Patricia Real al, N Engl J Med 2014;370(14):5384-3631) The normal value (reference range) for this assay is negative. COLOGUARD RE-SCREENING RECOMMENDATION: Periodic routine colorectal cancer screening is an important part of preventive healthcare for asymptomatic persons at average risk for colorectal cancer. Following a negative Cologuard result, the [place] [employer] and U.S. Multi-Society Task Force screening guidelines recommend a Cologuard re-screening interval of 3 years. References: [employer] Society (ACS). Colorectal cancer prevention and early detection. [place], [place]: [employer]; [updated 2015Sep 06]. https://www.cancer.org/cancer/anqlc-uxwcew-zhrgfi/detection-diagnosis -staging/acs-recommendations.html. Accessed January 13, 2018; Dominic FRIAS, Tamiko HARMON, Lance LOVE, Colorectal Cancer Screening: Recommendations for Physicians and Patients from the U.S. Multi-Society Task Force on Colorectal Cancer Screening, Am J Gastroenterology 2017; 112:7407-4553. TEST TYPE: Composite algorithmic analysis of stool DNA-biomarkers with hemoglobin immunoassay. ??Quantitative values of individual biomarkers are not reportable and are not associated with individualbiomarker result reference ranges. PRECAUTIONS AND LIMITATIONS: Cologuard is intended for colorectal cancer screening of adults of either sex, 45 years or older, who are at average-risk for colorectal cancer (CRC). Cologuard has been approved for use by the U.S. FDA. Cologuard may produce a false negative or false positive result. Anegative Cologuard test result does not guarantee the absence of CRC or advanced adenoma (pre-cancer). Patients with a negative Cologuard test result should be advised to continue participating in a colorectal cancer screening program. The screening interval for Cologuard is currently recommended at an interval of every 3 years by the [employer] and U.S. Multi-Society Task Force. A false positive result occurs when Cologuard produces a positive result, even though a colonoscopy maynot find colorectal cancer or precancerous polyps. The [...] can be accessed at the following location: www.[employer].Framebench/results. Additional description of the Cologuard test process, warnings and precautions can be found at www.cologuardtest.com. Rx only. Specimen (Source)Anatomical Location / LateralityCollection Method / Volume Collection TimeReceived Time11/23/2019 Narrative Authorizing ProviderResult TypeResult StatusNohemy Prado MDLAB MOLECULAR DIAGNOSTICS ORDERABLESFinal ResultPerforming OrganizationAddressCity/State/ZIP CodePhone Number [facility] from Last 3 Months or Most Recently Relevant to Health Maintenance Insurance Care Teams Team MemberRelationshipSpecialtyStart DateEnd Date Nohemy Prado MD [address] [facility] [address] [place] [address] PCP - [facility]10/07/22 Nohemy Prado MD [address] [facility] [address] [place] [address] PCP - [facility]10/28/22
--- OUTSIDE RECORDS SUMMARY | 2025-04-22 08:02 | XMS_ITS | Encounter Summary ---
Author Organization [facility] Address [address] [place] [address] Care Team Providers Care Water Filterer Helper Name Role Phone Nohemy Guajardo MD Unavailable Nohemy Guajardo MD Primary Care Provider [phone] Reason for Visit * ReasonCommentsMed Refill Encounter Details DateTypeDepartmentCare Team (Latest Contact Info)Qevuowwcqay71/03/2025Refill [facility] [address] [facility] [address] [place] [id number] Latonya Marie PA [address] [facility] [address] [place] [address] Type 2 diabetes mellitus with diabetic polyneuropathy, with long-term current use of insulin (HCC) Social History Tobacco UseTypesPacks/DayYears UsedDateSmoking Tobacco: Every DayCigarettes1.550 Smokeless Tobacco: Never Comments:11-20 cigs/day Alcohol UseStandard Drinks/WeekCommentsNever0 (1 standard drink = 0.6 oz pure alcohol)Caffeine intake: more than 4 cups per dayPHQ-2AnswerDate RecordedPatient Health Questionnaire-2 Gfqfq43106/02/2024CommentsUnknownSex and Gender InformationValueDate RecordedSex Assigned at BirthNot on fileLegal SexFemale 07/28/2022 8:06 PM EDTGender IdentityNot on fileSexual OrientationNot on file documented as of this encounter Plan of Treatment DateTypeDepartmentCare Team (Latest Contact Info)Xtyvjroijhz60/18/2026 1:00 PM EDTOffice Visit [facility] [place] [facility] [address] [facility] [address] [place] [address] Nohemy Guajardo MD [address] [facility] [address] [place] [address] documented as of this encounter Visit Diagnoses Diagnosis Type 2 diabetes mellitus with diabetic polyneuropathy, with long-term current use of insulin (HCC) documented in this encounter Additional Health Concerns AssessmentNoted TimePHQ-9 Depression Total Score: 10:00 AM EDT documented as of this encounter Care Teams Team MemberRelationshipSpecialtyStart DateEnd Date Nohemy Guajardo MD [address] [facility] [address] [place] [address] PCP - [facility]10/07/22 Nohemy Guajardo MD [address] [facility] [address] [place] [address] PCP - GeneralFamily Medicine10/28/22documented as of this encounter
--- NOTE | 2025-04-22 08:03 | CT_ITS ---
The [address] [address] Patient Name: NUVIA ABRAHAM MRN: [id number] date: 1945 Sex: F Assigned Patient Location: CT Current Patient Location: CT Accession/Order Number: [id number] Exam Date: 04/22/2025 08:15 Report Date: 04/22/2025 09:44 At the request of: WILY PRADO Procedure: CT lung screening low-dose LOW-DOSE SCREENING CHEST CT WITHOUT CONTRAST COMPARISON: 01/05/2023 CLINICAL DATA: Current smoker for over 60 years Spiral axial unenhanced low-dose images were obtained through the chest. Images were reviewed using both narrow and wide window settings. This CT exam was performed using one or more following dose reduction techniques: Automated exposure control, adjustment of the mA and/or kV according to patient size, or use of iterative reconstruction technique. The heart is within normal limits for size. No pericardial effusion is present. Coronary artery disease is seen. There is plaque at the aorta and proximal great vessels. No aneurysm is identified. There are similar small mediastinal lymph nodes. The right thyroid lobe remains larger than the left. There is endplate spurring at the spine. There is obstructive lung disease with airspace lucencies. There is atelectasis and/or scarring, greatest at the right lower lobe and lingula. There are no additional consolidation, pleural effusion or pneumothorax. There is still a 10 - 11 mm soft tissue nodule at the lingula which is similar. There is an 8 mm nodule at the right lower lobe which has not significantly changed. There is still a punctate nodule on the right within the middle lobe on axial image 146. There is also a potential tiny developing 3 mm nodule within the left lower lobe on axial image 160. Limited imaging through the upper abdomen shows additional atherosclerotic disease. CT/CT lung screening low-dose IMPRESSION: OBSTRUCTIVE LUNG DISEASE. CONTINUED PULMONARY NODULARITY, DESCRIBED. Lung RADS category 2 - benign Twelve-month low-dose CT follow-up suggested Impression dictated by: Latonya Riggs M.D. 04/22/2025 9:44 AM Dictation Location: [place] [address] Electronically authenticated by: [id number] Y Date: 04/22/2025 09:44
--- OUTSIDE RECORDS SUMMARY | 2025-04-22 08:06 | XMS_ITS | CCD ---
Author Organization [facility] Care Team Providers Care Project Management Instructor Name Role Phone Mikie West Unavailable MD Wily Prado Primary Care Provider MD Wily Prado Referring Provider CARMELA Tijerina Attending Provider MD Wily Prado Primary Care Provider [phone] MD Wily Prado Referring Provider [phone] CARMELA Tijerina Attending Provider MD Jesse Tran Attending Provider [phone] TOD[address], DR GINGER [employer] Unavailable PAY, [...] Care Provider MD Wily Prado Referring Provider [phone] CARMELA Tijerina Attending Provider MD Wily Prado Primary Care Provider MD Wily Prado Referring Provider CARMELA Tijerina Attending Provider MD Wily Prado Primary Care Provider MD Wily Prado Referring Provider [phone] CARMELA Tijerina Attending Provider MD Wily Prado Primary Care Provider MD Wily Prado Referring Provider MarianaFITO vannN Taylor Morgan Attending Provider Wily Prado MD Unavailable Wily Prado MD Primary Care Provider [phone] MD Wily Prado Primary Care Provider MD Wily Prado Attending Provider [phone] Wily Prado Attending Unavailable Wily Prado Primary [...] PRADO Attending Unavailable WILY PRADO Attending Unavailable Giiramitis , Andrius Egan Attending Unavailable Giedraitis , Andrius Vjaky Attending Unavailable Giedraitis , Andrius Vytautsia Attending Unavailable Giedraitis , Andrius Vytangel Attending Unavailable Narayan ENGLE, Madiha Unavailable [phone] Allergies Allergy ClassificationReported Allergen(s)Allergy TypeDate of OnsetReaction(s) Facility (1 source)Bacitracin / Neomycin / Polymyxin BDrug AllergyDaylight Solutions Other (1 source)CimetidineDrug AllergyUnkedulio Other (20 sources)Bacitracin; Translations: [bacitracin]Drug Zuweyyg97-09-6980PpuemslMer[facility] (20 sources)Cimetidine; Translations: [cimetidine]Drug Acmbmme03-18-3815XidihanCleveland Clinic (20 sources)Neomycin; Translations: [neomycin]Drug Tkvtuxh98-25-9328ZjyxexwMercer County Community Hospital (10 sources)contact metal agent; Translations: [contact metal agent]Propensity to adverse qbqelcryh96-17-4884JptrVwlphuknxLancaster Municipal Hospital (11 sources)petrolatum,white; Translations: [petrolatum,white]Propensity to adverse -75-0698QnzdpxrEkylbkmkcCommunity Regional Medical Center (20 sources)polymyxin B; Translations: [polymyxin B]Propensity to adverse rpdyxbxtv19-03-0730NeqiugtAbqbhpaimCommunity Regional Medical Center (1 source)Bacitracin / Neomycin / Polymyxin BDrug Bfjmsle12-94-7255IabWilson [address] [facility] (1 source)CimetidineDrug Mthlrcr93-65-5087SwhWilson [address] [facility] (20 sources)Bacitracin / Polymyxin BDrug Sqamiog11-42-8444JoelzesGTPO Healthcare Work Phone: (20 sources)PetrolatumDrug Hngbjnj19-84-3375SgnblemDFQV Healthcare Medications Current Medications MedicationDrug Class(es)DatesSig (Normalized)Sig (Original)[id number] 200 actuat albuterol 0.09 mg/actuat metered dose inhaler (20 sources)beta2-Adrenergic AgonistStart: 77-29-1849xeii 1 puff(s) by inhalation four times dailyAlbuterol Sulfate (Ventolin Hfa) 90 mcg/actuation Hfa Aerosol Inhaler Active 2 PUFF INHALATION Fourtimes daily December 17, 2019 12:00amtake 2 puff(s) by inhalation every six hours for wheezingVentolin HFA 108 (90 Base) MCG/ACT inhaler Inhale 2 puffs every 6 (six) hours if needed for wheezing or shortness of breath. Activetake 1 puff(s) by inhalation every four hours as neededVentolin HFA 108 (90 Base) MCG/ACT 1 puff as needed Inhalation every 4 hrs Activealbuterol 0.833 mg/ml / ipratropium bromide 0.167 mg/ml inhalation solution (20 sources)Anticholinergic, beta2-Adrenergic AgonistStart: 06-17-2022 ipratropium-albuterol (Duo-Neb) 0.5-2.5 mg/3 mL nebulizer solution Take 3 mL by nebulization every 6 (six) hours. PRN 06/17/2022 ActiveAlpha Lipoic Acid 200 MG (1 source)take 3 capsules by mouth once dailyAlpha Lipoic Acid 200 MG 3 capsules Orally one time a day ActiveALPRAZolam 0.5 mg oral tablet (20 sources)BenzodiazepineStart: 02-12-2025 End: 57-28-6385SZRSMDvsyd (Xanax) 0.5 MG tablet Indications: Other insomnia Take 1 tablet (0.5 mg) by mouth as needed at bedtime for anxiety 30 tablet 03/11/2025 04/10/2025 ActiveStart: 12-16-2023 End: 99-81-0996TLHRNUtrio (Xanax) 0.5 MG tablet Indications: Other insomnia Take 1 tablet (0.5 mg) by mouth as needed at bedtime for anxiety 30 tablet 12/14/2024 ActiveamLODIPine 10 mg oral tablet (17 sources)Dihydropyridine Calcium Channel BlockerStart: 05-08-2024 End: 77-87-9135hdfz 1 tablet by mouth once dailyamLODIPine (Norvasc) 10 MG tablet Indications: Essential hypertension TAKE 1 TABLET (10 MG) BY MOUTH DAILY. 100 tablet 1 11/19/2024 Activeascorbic acid 60 mg / beta carotene 5000 unt / copper sulfate 40 mg / dl-alpha tocopheryl acetate 30 unt / sodium selenite 0.04 mg / zinc oxide 40 mg oral tablet (20 sources)Vitamin Ctake 1 tablet by mouth once dailyMultiple Vitamin (Multivitamin Adult) tablet Take 1 tablet by mouth 1 (one) time each day at the same time. Activeaspirin 81 mg delayed release oral tablet (17 sources)Platelet Aggregation Inhibitor, Nonsteroidal Anti-inflammatory Drug Start: 78-75-2143Zepzfnk (Magno Low Dose Aspirin) 81 mg Tablet,Delayed Release (Dr/Ec) Active 81 MG PO Daily at bedtime December 17, 2019 12:00amatorvastatin 20 mg oral tablet (20 sources)HMG-CoA Reductase InhibitorStart: 94-33-4564eklppjjrzwdg (Lipitor) 20 MG tablet Indications: Essential hypertension TAKE 1 TABLET EVERY DAY 90 t ablet 3 02/25/2025 ActiveStart: 12-14-2019 End: 19-18-0157fevazfylgjlg (Lipitor) 20 MG tablet Indications: Essential hypertension TAKE 1 TABLET EVERY DAY 90 tablet 3 02/10/2024 ActiveB Complex + C TR - (1 source)B Complex + C TR - as directed Orally ActiveB Complex Vitamins (B COMPLEX 1 PO) (7 sources)B Complex Vitamins (B COMPLEX 1 PO) Take 1 tablet by mouth 1 (one) time each day. 0 ActiveCalcium (1 source)Phosphate Binder, CalciumCalcium 1200+D3 Activecalcium carbonate 1500 mg / cholecalciferol 0.01 mg oral tablet (9 sources)Vitamin DStart: 92-97-0416zdgw 1 tablet by mouth once daily before lunchCalcium Carbonate-Vitamin D3 (Calcium 600 + D(3)) 600 mg(1,500mg) -400 unit Tablet Active 1 TAB PO Daily before lunch December 17, 2019 12:00amCalcium Citrate / Vitamin D (20 sources)take 1 tablet by mouth once dailyCalcium Citrate-Vitamin D (CALCIUM CITRATE + D3 MAXIMUM PO) Take 1 tablet by mouth 1 (one) time each day. Active take 1 tablet by mouth once dailyCalcium Citrate-Vitamin D (CALCIUM CITRATE + D3 MAXIMUM PO) Take 1 tablet by mouth 1 (one) time each day. 0 Activecetirizine hydrochloride 10 mg oral tablet (20 sources)Histamine-1 Receptor AntagonistStart: 00-83-3274danf 1 tablet by mouth once dailyCetirizine (Zyrtec) 10 mg Tablet Active 10 MG PO every day at noon December 17, 2019 12:00amclopidogrel 75 mg oral tablet (20 sources)P2Y12 Platelet InhibitorStart: 70-44-3523hlqsbiuvxoa (Plavix) 75 MG tablet Indications: Stenosis of carotid artery, unspecified laterality TAKE 1 TABLET EVERY MORNING 100 tablet 3 10/01/2024 ActiveStart: 90-42-4805gbmjjyewzgg (Plavix) 75 MG tablet Indications: Stenosis of carotid artery, unspecified laterality TAKE 1 TABLET EVERY MORNING 90 tablet 3 11/11/2023 Activedocusate sodium 100 mg oral tablet (20 sources)Start: 78-58-4696xuux 100 mg by mouth once dailyDocusate Sodium Active 100 MG PO Daily December 29, 2021 12:00amDocusate Sodium (STOOL SOFTENER LAXATIVE PO) Take 1 tablet by mouth if needed ActiveDocusate Sodium (STOOL SOFTENER LAXATIVE PO) Take 1 tablet by mouth if needed 0 Activeevening primrose oil 500 mg oral capsule (10 sources)Start: 06-09-5974udxh 1000 mg by mouth once dailyEvening [place] Oil Active 1000 MG PO every day at noon December 17, 2019 12:00amtake 1 capsule by mouth once dailyEvening [place] Oil 1000 MG 1 capsule Orally one time a day ActiveEVENING PRIMROSE OIL PO (20 sources)EVENING PRIMROSE OIL PO Take 1 application by mouth 1 (one) time each day. ActiveEVENING PRIMROSE OIL PO Take 1 application by mouth 1 (one) time each day. 0 Activefamotidine 10 mg oral tablet (20 sources)Histamine-2 Receptor AntagonistStart: 33-90-2292Gyvujukbkr (Pepcid Ac) 10 mg Tablet Active 20 MG PO Daily at bedtime December 17, 2019 12:00am famotidine (Pepcid) 20 MG tablet Take 1 tablet by mouth as needed at bedtime for indigestion or heartburn. Activefenofibrate 145 mg oral tablet (20 sources)Peroxisome Proliferator Receptor alpha AgonistStart: 07-16-2024 fenofibrate (Tricor) 145 MG tablet Indications: Mixed hyperlipidemia TAKE 1 TABLET EVERY DAY 100 tablet 3 07/16/2024 ActiveStart: 23-60-0314ubyfoyofkyi (Tricor) 145 MG tablet Indications: Mixed hyperlipidemia (CMS/HCC) TAKE 1 TABLET EVERY DAY 100 tablet 3 08/26/2023 Activeferrous sulfate 325 mg oral tablet (20 sources)Start: 07-63-7723fxph 1 tablet by mouth once dailyferrous sulfate 325 (65 Fe) MG tablet Take 1 tablet by mouth 1 (one) time each day at the same time. 12/01/2021 ActiveFish Oils (1 source)take 1 capsule by mouth twice dailyFish Oil 1200 MG 1 capsule Orally Twice a day Activegabapentin 600 mg oral tablet (20 sources)Anti-epileptic AgentStart: 53-39-2134xwsr 1 tablet by mouth in the morning, then take 1 tablet by mouth in the evening, then take 1 tablet by mouth at bedtimegabapentin (Neurontin) 600 MG tablet Indications: Type 2 diabetes mellitus with diabetic polyneuropathy, with long-term current use of insulin ([facility]) Take 1 tablet (600 mg) by mouth in the morning and1 tablet (600 mg) in the evening and 1 tablet (600 mg) before bedtime. 300 tablet 3 11/09/2024 Active Horse [place] 300 MG (1 source)take 1 capsule by mouth once dailyHorse [place] 300 MG 1 capsule Orally one time a day ActiveHORSE CHESTNUT PO (20 sources)take 1 tablet by mouth once dailyHORSE CHESTNUT PO Take 1 tablet by mouth 1 (one) time each day. Activetake 1 tablet by mouth once dailyHORSE CHESTNUT PO Take 1 tablet by mouth 1 (one) time each day. 0 Activehorse chestnut seed 300 mg oral capsule (9 sources)Start: 49-46-2389yqwy 300 mg by mouth once dailyHorse [place] Active 300 MG PO every day at noon December 17, 2019 12:00amhydroCHLOROthiazide 25 mg oral tablet (20 sources)Thiazide DiureticStart: 45-99-2143gfpmlIZDDNPxtagovtu (HYDRODiuril) 25 MG tablet Indications: Essential hypertension TAKE 1 TABLET EVERY MORNING 100 tablet 3 12/24/2024 ActiveStart: 26-15-6924wsfbfNQZMANawkjlurc (HYDRODiuril) 25 MG tablet Indications: Essential hypertension TAKE 1 TABLET EVERY MORNING 100 tablet 3 12/01/2023 Active3 ml insulin glargine 100 unt/ml pen injector (20 sources)Insulin AnalogStart: 10-60-0713khaevku glargine (Lantus SoloStar) 100 UNIT/ML pen Indications: Type 2 diabetes mellitus with diabetic polyneuropathy, with long-term current use of insulin (HCC) Inject 22 Units under the skin at bedtime 10/11/2024 ActiveStart: 08-27-2024 End: 01-22-1615Etbtvj SoloStar 100 UNIT/ML pen Indications: Type 2 diabetes mellitus with diabetic polyneuropathy,with long-term current use of insulin (CMS/HCC) INJECT 25 UNITS UNDER THE SKIN ONE TIME DAILY DIRECTED 30 mL 3 08/27/2024 10/11/2024 Discontinued (Reorder)Start: 23-76-8564Nvzgdf SoloStar 100 UNIT/ML pen Indications: Type 2 diabetes mellitus with diabetic polyneuropathy, with long-term current use of insulin (CMS/HCC) INJECT 25 UNITS UNDER THE SKIN ONE TIME DAILY DIRECTED 30 mL 3 07/25/2023 ActiveLantus 100 UNIT/ML as directed Subcutaneous Activelevothyroxine sodium 0.088 mg oral tablet (20 sources)l-ThyroxineStart: 93-39-1206rqhbbvjusvgjl (Synthroid, Levoxyl) 88 MCG tablet Indications: Acquired hypothyroidism TAKE 1 TABLETIN THE MORNING BEFORE A MEAL 90 tablet 3 06/08/2024 ActiveStart: 14-31-9605hnkq 1 tablet by mouth before mealtimelevothyroxine (Synthroid, Levoxyl) 88 MCG tablet Indications: Acquired hypothyroidism (CMS/HCC) TAKE 1 TABLET (88 MCG) BY MOUTH IN THE MORNING BEFORE A MEAL 90 tablet 3 08/01/2023 ActiveStart: 02-19-8296hakw 1 tablet by mouth before mealtimelevothyroxine (Synthroid) 88 MCG tablet Indications: Acquired hypothyroidism (CMS/HCC) Take 1 tablet (88 mcg) by mouth in the morning. Take before meals. 100 tablet 3 06/01/2023 ActiveStart: 15-78-6828evof 75 ug by mouth once daily in the morningLevothyroxine Active 75 MCG PO Every morning December 14, 2019 12:00amtake 1 tablet by mouth once daily in the morningLevothyroxine Sodium 75 MCG 1 tablet in the morning on an empty stomach Orally Once a day Activelisinopril 40 mg oral tablet (20 sources)Angiotensin Converting Enzyme InhibitorStart: 68-94-8951vvxrpxlvtd 40 MG tablet Indications: Essential hypertension TAKE 1 TABLET EVERY MORNING 100 tablet 3 12/24/2024 ActiveStart: 40-04-0826ocuuwmgbgc 40 MG tablet Indications: Essential hypertension TAKE 1 TABLET EVERY MORNING 100 tablet 3 12/01/2023 Activemagnesium gluconate 550 mg oral tablet (20 sources)take 1 tablet by mouth in the morningmagnesium 30 MG tablet Take 30 mg by mouth in the morning. Activemeloxicam 15 mg oral tablet (7 sources)Nonsteroidal Anti-inflammatory DrugStart: 80-91-7484sumglqtaz (Mobic) 15 MG tablet Indications: Carpal tunnel syndrome, unspecified laterality TAKE 1 TABLET EVERY DAY 90 tablet 3 03/08/2023 ActivemetFORMIN hydrochloride 500 mg / SITagliptin 50 mg oral tablet (20 sources)Biguanide, Dipeptidyl Peptidase 4 InhibitorStart: 12-31-2022 End: 07-87-4952pzxp 2 tablets by mouth in the morningSITagliptin-metFORMIN (Mayumet) 50-500 MG tablet Indications: Type 2 diabetes mellitus with diabetic polyneuropathy, with long-term current use of insulin (HCC) Take 2 tablets by mouth in the morning. 180 tablet 02/11/2025 ActiveStart: 73-04-0165awwk 2 tablets by mouth once dailySitagliptin Phos-Metformin (Janumet) 50-500 mg tablet Active 2 TAB PO Daily December 14, 2019 12:00amtake 2 tablets one time daily metoprolol tartrate 25 mg oral tablet (20 sources)beta-Adrenergic BlockerStart: 62-91-9607hivjagbrlw tartrate (Lopressor) 25 MG tablet Indications: Essential hypertension TAKE 1 TABLET THREE TIMES DAILY (IN THE MORNING, IN THE EVENING, AND BEFORE BEDTIME) 270 tablet 3 02/18/2025 ActiveStart: 76-45-7178kkypuopkjv tartrate (Lopressor) 25 MG tablet Indications: Essential hypertension TAKE 1 TABLET THREE TIMES DAILY (IN THE MORNING, IN THE EVENING, AND BEFORE BEDTIME) 270 tablet 3 02/13/2024 Active Multivital (1 source)Multivital ActiveMultivitamin (Daily-Sandy) Tablet (9 sources)Start: 76-83-7788iwcz 1 tablet by mouth once daily at bedtime Multivitamin (Daily-Sandy) Tablet Active 1 TAB PO Daily at bedtime December 16, 2019 11:00pm plus ironStart: 98-50-1621fmjd 1 tablet by mouth once daily at bedtimeMultivitamin (Daily-Sandy) Tablet Active 1 TAB PO Daily at bedtime December 17, 2019 12:00am plus ironnaproxen 500 mg oral tablet (20 sources)Nonsteroidal Anti-inflammatory DrugStart: 88-46-3380dmisysau (Naprosyn) 500 MG tablet Indications: Hand weakness TAKE 1 TABLET TWICE DAILY WITH FOOD ORMILK 180 tablet 3 06/04/2024 ActiveStart: 26-62-8090pgecnfsv (Naprosyn) 500 MG tablet Indications: Hand weakness TAKE 1 TABLET TWICE DAILY WITH FOOD ORMILK 180 tablet 3 08/01/2023 Activetake 1 tablet by mouth every twelve hours at mealtime as neededNaproxen 500 MG 1 tablet with food or milk as needed Orally every 12 hrs Activeniacin 500 mg oral tablet (20 sources)Nicotinic AcidStart: 42-35-9649elps 500 mg by mouth once dailyNiacin Active 500 MG PO every day at noon December 17, 2019 12:00am10 actuat olodaterol 0.0025 mg/actuat / tiotropium 0.0025 mg/actuat inhalation spray (20 sources)Anticholinergic, beta2-Adrenergic AgonistStart: 65-33-5627Ydiknfb Respimat 2.5-2.5 MCG/ACT aerosol solution inhaler Indications: Chronic obstructive pulmonary disease, unspecified (HCC) INHALE 2 PUFFS EVERY DAY 12 g 3 08/20/2024 ActiveStart: 15-71-0966agkqdwnbih-olodaterol (Stiolto Respimat) 2.5- 2.5 MCG/ACT aerosol solution inhaler Indications: Chronic obstructive pulmonary disease, unspecified (CMS/HCC) Inhale 2 Inhalation Daily 4 g 3 05/31/2024 Active Start: 54-87-1212evrvmbjnis-olodaterol (Stiolto Respimat) 2.5-2.5 MCG/ACT aerosol solution inhaler Indications: Chronic obstructive pulmonary disease, unspecified (CMS/HCC) INHALE 2 PUFFS BY MOUTH ONCE A DAY 4 g 3 02/07/2024 Active Start: 45-43-7151clszcqxmkk-olodaterol (Stiolto Respimat) 2.5-2.5 MCG/ACT aerosol solution inhaler Indications: Chronic obstructive pulmonary disease, unspecified (CMS/HCC) INHALE 2 PUFFS ONCE A DAY 4 g 3 09/15/2023 ActiveStart: 57-33-5825Gtfwmbaepr-Olodaterol (Stiolto Respimat) 2.5-2.5 mcg/actuation Mist Active 2 PUFF INHALATION Daily at bedtime September 17, 2020 11:00pmStart: 09-18-2020 Tiotropium-Olodaterol (Stiolto Respimat) 2.5-2.5 mcg/actuation Mist Active 2 PUFF INHALATION Daily at bedtime September 18, 2020 12:00amStiolto Respimat 2.5-2.5 MCG/ACT aerosol solution inhaler Inhale 2 Inhalation 1 (one) time each dayat the same time. 0 ActiveStiolto Respimat 2.5-2.5 MCG/ACT TAKE 2 PUFFS BY MOUTH EVERY DAY Inhalation for 90 ActiveOmega 1-Jyv-Uly-Fish Oil (Fish Oil) 1,000 mg (120 mg-180 mg) Capsule (9 sources)Start: 42-93-7665pbsn 1 capsule by mouth twice dailyOmega 1-Zsp-Byv-Fish Oil (Fish Oil) 1,000 mg (120 mg-180 mg) Capsule Active 1 CAP PO Twice daily December 16, 2019 11:00pmStart: 40-41-3962kbzh 1 capsule by mouth twice dailyOmega 2-Ycr-Vjg-Fish Oil (Fish Oil) 1,000 mg (120 mg-180 mg) Capsule Active 1 CAP PO Twice daily December 17, 2019 12:00amOmega-3 Fatty Acids (Fish Oil) 1000 MG capsule delayed-release (20 sources)take 1 capsule by mouth once dailyOmega-3 Fatty Acids (Fish Oil) 1000 MG capsule delayed-release Take 1 capsule by mouth 1 (one) timeeach day. Activetake 1 capsule by mouth once dailyOmega-3 Fatty Acids (Fish Oil) 1000 MG capsule delayed-release Take 1 capsule by mouth 1 (one) timeeach day. 0 Active omeprazole 20 mg delayed release oral capsule (20 sources)Proton Pump InhibitorStart: 55-76-7535icyxyrvcho (PriLOSEC) [address] capsule Indications: Gastroesophageal reflux disease without esophagitis TAKE 1 CAPSULE EVERY DAY 100 capsule 3 07/16/2024 ActiveStart: 22-92-8835ejeztmpznz (PriLOSEC) [address] capsule Indications: Gastroesophageal reflux disease without esophagitis TAKE 1 CAPSULE ONE TIME DAILY 100 capsule 3 08/26/2023 Active OXcarbazepine 300 mg oral tablet (20 sources)Anti-epileptic AgentStart: 49-23-2408QDymgfrxqjbxi (Trileptal) 300 MG tablet Indications: Other diabetic neurological complication associated with type 2 diabetes mellitus (HCC) TAKE 1 TABLET IN THE MORNING AND TAKE 1 TABLET BEFORE BEDTIME 200 tablet 3 10/01/2024 ActiveStart: 80-38-7158GExejzzrbyxks (Trileptal) 300 MG tablet Indications: Other diabetic neurological complication associated with type 2 diabetes mellitus (CMS/HCC) TAKE 1 TABLET IN THE MORNING AND TAKE 1 TABLET BEFORE BEDTIME 180 tablet 3 11/14/2023 Activepolyethylene glycol 3350 16099 mg powder for oral solution (20 sources)Osmotic LaxativeStart: 32-83-6037Wevgmahfulhb Glycol 3350 (Miralax) 17 gram Powder In Packet Active 17 GM PO Daily July 30, 2022 12:00am Sennosides-Docusate Sodium 8.6-50 MG (1 source)take 1 tablet by mouth once daily in the evening as neededSennosides- Docusate Sodium 8.6-50 MG 1 tablet in the evening as needed Orally Once a day Activesodium chloride 1000 mg oral tablet (20 sources)take 1 tablet by mouth every twenty-four hours as neededsodium chloride 1 g tablet Take 1 g by mouth Daily as needed. ActiveSpectravite - (1 source)Spectravite - as directed Orally Activethioctic acid 200 mg oral capsule (20 sources)take 1 tablet by mouth once dailyAlpha Lipoic Acid 200 MG capsule Take 1 tablet by mouth 1 (one) time each day. Activetorsemide 10 mg oral tablet (20 sources)Loop DiureticStart: 02-91-1977fwgwfmlzr (Demadex) 10 MG tablet Indications: Lymphedema TAKE 1 TABLET EVERY MORNING 100 tablet 3 10/01/2024 ActiveStart: 42-94-1335vtbcuuwic (Demadex) 10 MG tablet Indications: Lymphedema TAKE 1 TABLET EVERY MORNING 90 tablet 3 11/14/2023 ActivetraMADol hydrochloride 50 mg oral tablet (20 sources)Opioid AgonistStart: 06-16-2023 End: 40-09-9469dajv 1 tablet by mouth every six hours for paintraMADol (Ultram) 50 MG tablet Indications: Lumbar spondylosis , 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 claudication Take 1 tablet (50 mg) by mouth every 6 (six) hours if needed for severe pain 120 tablet 01/17/2024 02/16/2024 ActiveStart: 07-00-9554pkja 50 mg by mouth twice dailyTramadol Active 50 MG PO Twice daily February 22, 2022 12:00amubidecarenone 30 mg oral capsule (20 sources)take 1 capsule by mouth in the morningco-enzyme Q-10 30 MG capsule Take 30 mg by mouth in the morning. ActiveVitamin B Complex (B-Complex) Tablet (9 sources)Start: 22-10-4639bbfz 1 tablet by mouth once dailyVitamin B Complex (B-Complex) Tablet Active 1 TAB PO every day at noon December 16, 2019 11:00pm Start: 27-07-5206soer 1 tablet by mouth once dailyVitamin B Complex (B-Complex) Tablet Active 1 TAB PO every day at noon December 17, 2019 12:00amvitamin e 180 mg oral capsule (20 sources)Start: 38-75-1654jqum 800 [IU] by mouth once daily in the morning Vitamin E Active 800 UNIT PO Every morning December 17, 2019 12:00amtake 2 capsules by mouth once dailyalpha tocopherol (Vitamin E) 400 units capsule Take 2 capsules by mouth 1 (one) time each day at the same time. ActiveVitamin E 400 UNIT (1 source)take 1 capsule by mouth once dailyVitamin E 400 UNIT 1 capsule Orally Once a day ActiveZinc (10 sources)Start: 77-24-1926clzf 50 mg by mouth once dailyZinc Active 50 MG PO every day at noon December 16, 2019 11:00pmStart: 80-78-6810ydan 50 mg by mouth once dailyZinc Active 50 MG PO every day at noDecember 17, 2019 12:00amtake 1 tablet by mouth once dailyZinc 50 MG 1 tablet Orally Once a day Activezinc gluconate 50 mg oral tablet (20 sources)take 1 tablet by mouth once dailyzinc gluconate 50 MG tablet Take 1 tablet by mouth 1 (one) time each day at the same time. Active Completed/Discontinued Medications MedicationDrug Class(es)DatesSig (Normalized)Sig (Original)Glucos Sul 7wuc-Zdl-Kxqgi-C-Mn (Glucosamine Chondroitin) 550-30-1 mg Capsule (9 sources)Start: 12-17-2019 End: 03-25-3237pgfu 1 capsule by mouth twice dailyGlucos Sul 0ali-Psu-Avcby-C-Mn (Glucosamine Chondroitin) 550-30-1 mg Capsule Discontinued 1 CAP PO Twice daily December 16, 2019 11:00pm January 12, 2022 10:09amStart: 12-17-2019 End: 47-58-0146oqyr 1 capsule by mouth twice dailyGlucos Sul 4mhi-Ifz-Vlrdo-C-Mn (Glucosamine Chondroitin) 550-30-1 mg Capsule Discontinued 1 CAP PO Twice daily December 17, 2019 12:00am January 12, 2022 11:09am12 hr guaiFENesin 600 mg extended release oral tablet (9 sources)Start: 12-17-2019 End: 54-72-4054xcgg 2 tablets by mouth twice daily, then take 1 tablet by mouth every twelve hoursGuaifenesin (Mucinex) 600 mg Tablet Extended Release 12hr Discontinued 1200 MG PO Twice daily December 17, 2019 12:00am December 31, 2021 3:19pmhydroCHLOROthiazide 12.5 mg / lisinopril 20 mg oral tablet (9 sources)Thiazide Diuretic, Angiotensin Converting Enzyme InhibitorStart: 12-14-2019 End: 01-39-4600tcoh 1 tablet by mouth once dailyLisinopril-Hydrochlorothiazide Discontinued 1 TAB PO every day at noon December 14, 2019 12:00am October 06, 2020 2:11pmmelatonin 10 mg oral tablet (20 sources)Start: 12-17-2019 End: 57-62-5008imij 5 mg by mouth at bedtimeMelatonin Discontinued 5 MG PO Bedtime December 17, 2019 12:00am July 30, 2022 10:47ammelatonin 5 MG tablet Take 1 tablet by mouth if needed ActiveMelatonin 10 MG as directed Orally Active 7 actuat umeclidinium 0.0625 mg/actuat / vilanterol 0.025 mg/actuat dry powder inhaler (9 sources)Anticholinergic, beta2-Adrenergic AgonistStart: 12-17-2019 End: 90-63-1070Xuosvuyizlcx-Vilanterol (Anoro Ellipta) 62.5-25 mcg/actuation Blister With Device Discontinued 1 INH INHALATION Daily December 17, 2019 12:00am September 18, 2020 3:52pm Problems Active Problems Problem ClassificationProblemDateDocumented DateEpisodic/ChronicAnxiety disorders (20 sources)Feeling agitated; Translations: [Acute stress reaction]Onset: [id number] of cervix (1 source)Personal history of malignant neoplasm of cervix uteri; Translations: [PERS HX MALIG NEOPLASM CERV UTERI]Onset: 40-66-6074QhzizwmdNqhpxpg obstructive pulmonary disease and bronchiectasis (20 sources)Chronic obstructive pulmonary disease with (acute) exacerbation; Translations: [Chronic obstructivepulmonary disease with (acute) lower respiratory infection]Onset: 11-13-2021 Resolved: 660706-80-6530GxbcjycOhbpkwxrss heart failure; nonhypertensive (20 sources)Heart failure, unspecified; Translations: [Heart failure]Onset: 526829-64-4442XrehdodGuhtupxu atherosclerosis and other heart disease (1 source)Atherosclerotic heart disease of telida coronary artery without angina pectoris; Translations: [ASHD IGIUGIG 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]Onset: 11-25-2021 ChronicDeficiency and other anemia (7 sources)Iron deficiency anemia, unspecified; Translations: [Iron deficiency anemia, unspecified]01-47-9821LlknbdimLgkrxclzkb and other anemia (1 source)Anemia, unspecified; Translations: [ANEMIA UNSPECIFIED]Onset: 54-89-5999SifmqiaeVzwpbico mellitus with complications (20 sources)Neuropathy due to diabetes mellitus; Translations: [Type 2 diabetes mellitus with diabetic neuropathy, unspecified]Onset: 10-31-2022 Resolved: 895266-47-8335IzvdfjkWjjrujwj mellitus without complication (20 sources)Type 2 diabetes mellitus without complications; Translations: [Diabetes mellitus]Onset: 668661-54-9259ItxkffjBgvznuvhy congenital anomalies (20 sources)Enlargement of tongue; Translations: [Macroglossia]Onset: 10-31-2022 69-98-0140XatodpyYeptbvsuh of lipid metabolism (20 sources)Pure hypercholesterolemia, unspecified; Translations: [Hyperlipidemia, unspecified]Onset: 937304-94-6258OyqfolnT Codes: Fall (2 sources)Unspecified fall, initial encounter; Translations: [Fall]Onset: 54-46-0004BeqdbtdoJbjtlzfl; convulsions (20 sources)Epilepsy, unspecified, not intractable, without status epilepticus; Translations: [Epilepsy]Onset: 745305-83-9174JxeqcqpXjwszxxpic disorders (20 sources)Gastro-esophageal reflux disease without esophagitis; Translations: [Gastroesophageal reflux disease]Onset: 127193-77-1320EsdsstdHsvzzaxyj hypertension (20 sources)Hypertensive disorder; Translations: [Essential (primary) hypertension]Onset: 395957-73-3801KjnkxqwRilxlhdj; including migraine (20 sources)Complicated migraine; Translations: [Migraine with aura, not intractable, without status migrainosus]Onset: hronic Hypertension with complications and secondary hypertension (20 sources)Hypertensive emergency; Translations: [Hypertensive emergency]Onset: 416873-78-2965KhgpuicTbsodkuwes disorders (20 sources)Other primary ovarian failure; Translations: [Primary ovarian failure]Onset: 823072-82-6079SungsriTeppsb and vomiting (4 sources)Nausea; Translations: [NAUSEA]Onset: 94-03-7203RqtuenenChybpkekj or stenosis of precerebral arteries (20 sources)Right carotid artery stenosis; Translations: [Occlusion and stenosis of right carotid artery]Onset: 02-24-2021 Resolved: 94-59-5879HjqceonGtvj wounds of extremities (4 sources)Unspecified open wound of left great toe without damage to nail, initial encounter; Translations: [UNS OP WND LT GRT TOE NO DMG NL INT]Onset: 26-23-0493DlthdsjzSrlthupqvxikmq (20 sources)Osteoarthritis; Translations: [Unspecified osteoarthritis, unspecified site]Onset: 966423-78-6473KvkiincMmcrj aftercare (1 source)halfway (current) use of aspirin; Translations: [SKILLED NURSING CURRENT USE OF ASPIRIN]Onset: 89-51-3252ArxsqlbbLhtni aftercare (1 source)halfway (current) use of insulin; Translations: [HOME HOSPICE AIDE CURRENT USE OF INSULIN]Onset: 94-86-2327GlcfzvcxCedlb aftercare (1 source)Other correction (current) drug therapy; Translations: [OTH SKILLED NURSING CURRENT DRUG THERAPY]Onset: 85-04-5019UxbebhxsYwavq and ill-defined heart disease (20 sources)Diastolic dysfunction; Translations: [Other ill-defined heart diseases]Onset: 151101-00-3381LnbpzlxBtxva bone disease and musculoskeletal deformities (1 source)Other specified disorders of bone density and structure, left thigh; Translations: [OT D/O BONE DEN STRUCT LT THIGH]Onset: 41-11-6973LwzvjgfoQdhfd circulatory disease (1 source)Disorder of carotid artery; Translations: [Disorder of arteries and arterioles, unspecified]ChronicOther diseases of veins and lymphatics (20 sources)Lymphedema; Translations: [Lymphedema, not elsewhere classified] Onset: 629421-70-8562VkergmwXwjan injuries and conditions due to external causes (1 source)History of falling; Translations: [HISTORY OF FALLING]Onset: 17-31-8347PlqphewiWddxw lower respiratory disease (3 sources)Shortness of breath; Translations: [SHORTNESS OF BREATH]Onset: 06-08-8210RzdahmvyBofuu lower respiratory disease (1 source)Other nonspecific abnormal finding of lung field; Translations: [[facility] NONSPECIFIC ABN FIND LNG FIELD]Onset: 10-33-7001UbeatcskYlagv nervous system disorders (4 sources)Polyneuropathy, unspecified; Translations: [POLYNEUROPATHY UNSPECIFIED]Onset: 90-68-2212OkblsmwLxfft nervous system disorders (1 source)Hereditary and idiopathic neuropathy, unspecified; Translations: [HEREDITARY IDIOPATH NEUROPATHY UNS]Onset: 58-75-5366KulwqvaVyill nervous system disorders (20 sources)Carpal tunnel syndrome; Translations: [Carpal tunnel syndrome, unspecified upper limb]Onset: 887143-82-9391RedwqedLslba nervous system disorders (20 sources)Polyneuropathy; Translations: [Polyneuropathy, unspecified]Onset: 524806-63-5207MfdvyenNvjpe nervous system disorders (20 sources)Bilateral carpal tunnel syndrome; Translations: [Carpal tunnel syndrome, bilateral upper limbs]Onset: 434008-97-7721LwtojgrIdfcl non- traumatic joint disorders (4 sources)Pain in right hip; Translations: [PAIN IN RIGHT HIP]Onset: 01-06-2022 EpisodicOther non-traumatic joint disorders (4 sources)Pain in right elbow; Translations: [PAIN IN RIGHT ELBOW]Onset: 32-66-4041IlawerniKtqsi non-traumatic joint disorders (1 source)Pain in right knee; Translations: [PAIN IN RIGHT KNEE]Onset: 21-56-9629TlzgfxpgPbcef nutritional; endocrine; and metabolic disorders (20 sources)Body mass index 30+ - obesity; Translations: [Obesity, unspecified] Onset: 094580-24-8621OsbjtkxJnhor nutritional; endocrine; and metabolic disorders (20 sources)Hypervitaminosis B6; 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]Onset: 852422-06-4455KshztbeVoqkr screening for suspected conditions (not mental disorders or infectious disease) (1 source)Encounter for screening mammogram for malignant neoplasm of breast; Translations: [ENC SCR MAMMO MALIG NEOPLASM BREAST]Onset: 79-46-6325Jpkpijbo Other upper respiratory disease (3 sources)Other specified disorders of nose and nasal sinuses; Translations: [OTH SPEC D/O NOSE NASAL SINUSES]Onset: 09-63-1119YoxxgcboZvngfwwegb and visceral atherosclerosis (20 sources)Peripheral vascular disease, unspecified; Translations: [Generalized atherosclerosis]Onset: 041708-26-0042LptpjfgUaiwbnnrb (except that caused by tuberculosis or sexually transmitted disease) (1 source)Pneumonia, unspecified organism; Translations: [PNEUMONIA UNSPECIFIED ORGANISM]Onset: 89-01-6825SqiejyjfYartnedpf heart disease (20 sources)Secondary pulmonary hypertension; Translations: [Other secondary pulmonary hypertension]Onset: 503907-02-1860FaslhxlWxwomthv codes; unclassified (14 sources)Insomnia; Translations: [Other insomnia]13-44-9711CqnpehkLfasorki codes; unclassified (20 sources)Obstructive sleep apnea syndrome; Translations: [Obstructive sleep apnea (adult) (pediatric)]Onset: 472261-26-9439FdfckzuRhxllcvq codes; unclassified (1 source)Other specified postprocedural states; Translations: [OTH SPECIFIED POSTPROCEDURAL STATES]Onset: 76-68-6519LuxcwcelVxbvwpiq codes; unclassified (1 source)Acquired absence of other specified parts of digestive tract; Translations: [ACQ ABSENCE OTH PART DIGESTV TRACT]Onset: 30-66-2691Exwgvwyk Residual codes; unclassified (1 source)Acquired absence of both cervix and uterus; Translations: [ACQUIRED ABSENCE BOTH CERVIX AND UTERUS]Onset: 40-81-8718CovgktftRbtememc codes; unclassified (1 source)Family history of malignant neoplasm of breast; Translations: [FAMILY HX MALIG NEOPLASM OF BREAST]Onset: 77-19-0860EqcxqklqHjsqybylfmw; intervertebral disc disorders; other back problems (20 sources)Lumbar spondylosis; Translations: [Spondylosis without myelopathy or radiculopathy, lumbar region]Onset: 295995-39-8845YmxidesMoklillkh- related disorders (20 sources)Smoker; Translations: [Nicotine dependence, unspecified, uncomplicated]Onset: 02-24-2021 Resolved: 04-05-8182SabxwzdBazpoyrbayk injury; contusion (2 sources)Contusion of other part of head, initial encounter; Translations: [Contusion of right elbow, initial encounter]Onset: 99-83-3322DvyepofwJaacusn disorders (20 sources)Hypothyroidism, unspecified; Translations: [Hypothyroidism]Onset: 097105-88-5533KfcxlziObuqiqygz cerebral ischemia (20 sources)Transient cerebral ischemic attack, unspecified; Translations: [Transient cerebral ischemia]Onset: 441817-91-5644ZzvjekzVywkhynvaujb (1 source)CONTACT W/AND (SUSP) EXPOS COVID-19; Translations: [CONTACT W/AND (SUSP) EXPOS COVID-19]Onset: 11-25-2021 Past or Other Problems Problem ClassificationProblemDateDocumented DateEpisodic/ChronicCalculus of urinary tract (20 sources)Personal history of urinary calculi; Translations: [Kidney stone] Onset: 190878-65-8488RzhcmqslZkmpqbqrqq associated with dizziness or vertigo (4 sources)Dizziness and giddiness; Translations: [DIZZINESS AND GIDDINESS] Onset: 44-54-9196RrolnofuRwwowwcowu and other anemia (20 sources)Iron deficiency anemia; Translations: [Iron deficiency anemia, unspecified]Onset: 293989-06-9744LeyirzvvBozyolnvgx and other anemia (1 source)Other dietary vitamin B12 deficiency anemia; Translations: [OTH DIETARY VITAMIN B12 DEF ANEMIA]Onset: 27-20-1430CbezatpdSqtwc and electrolyte disorders (20 sources)Hypo-osmolality and hyponatremia; Translations: [Hyponatremia]Onset: 934230-40-0957GxcfkjenGkgxxqgnbbzgr and screening for infectious disease (1 source)Encounter for screening for infections with a predominantly sexual mode of transmission; Translations: [ENC SCREEN INFECTIONS SEXL TRANSMS]Onset: 19-07-5926SsjkrlkwAyzx disorders (20 sources)Mood disordersOnset: 12-27-2022 Resolved: 588039-17-0026Nzhngoqwrdg deficiencies (1 source)Pyridoxine deficiency; 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]Onset: 89-83-1809OulaavfxIvdrf aftercare (1 source)director long term care (current) use of oral hypoglycemic drugs; Translations: [SKILLED NURSING USE ORAL HYPOGLYCEMIC DX]Onset: 55-42-6177GwjzvwcnDwyfb bone disease and musculoskeletal deformities (20 sources)Osteopenia; Translations: [Other specified disorders of bone density and structure, left thigh]Onset: 829347-50-0786QnpgowlpEdzzp circulatory disease (16 sources)Carotid bruit; Translations: [Other specified symptoms and signs involving the circulatory and respiratory systems]Onset: EpisodicOther connective tissue disease (1 source)Myalgia, unspecified site; Translations: [MYALGIA UNSPECIFIED SITE] Onset: 74-80-8368XvvarenfWefez connective tissue disease (20 sources)Weakness of hand; Translations: [Other symptoms and signs involving the musculoskeletal system]Onset: 977042-62-4856ZwtxjlqeFpnmg diseases of kidney and ureters (20 sources)Acquired renal cystic disease; Translations: [Cyst of kidney, acquired]Onset: 864989-87-7879XhmcpxuaDqyqe lower respiratory disease (20 sources)Abnormal breathing; Translations: [Unspecified abnormalities of breathing]Onset: 238229-20-0543YmkrnynzIigyz nervous system disorders (4 sources)Paresthesia of skin; Translations: [PARESTHESIA OF SKIN]Onset: 62-27-4618CaycqqlfHtoef nervous system disorders (4 sources)Anesthesia of skin; Translations: [ANESTHESIA OF SKIN]Onset: 33-35-4045WapvibhjKesrz nervous system disorders (20 sources)White matter disease; Translations: [White matter disease, unspecified]Onset: 337562-26-7089MmxjqbjwWvyvf non-traumatic joint disorders (6 sources)Hip pain; Translations: [Pain in right hip]32-02-9507MfhgbvieCotugypn codes; unclassified (1 source)Insomnia; Translations: [Insomnia, unspecified]EpisodicResidual codes; unclassified (20 sources)Noncompliance with treatment; Translations: [Patient's noncompliance with other medical treatment and regimen]Onset: 076671-12-8867Bcbjlnze Residual codes; unclassified (20 sources)Delirium; Translations: [Disorientation, unspecified]Onset: 007919-17-6814SfhoqhqrMnktawdouoq; intervertebral disc disorders; other back problems (20 sources)Lumbago with sciatica, right side; Translations: [Acute back pain with sciatica]Onset: 593327-70-3847Ayjzgdpi Results Test NameValueInterpretationReference RangeFacilityMR LUMBAR SPINE WO CONon 34-42-6108[address] [address] Magnetic Resonance Report Signed Patient: NUVIA MARTIN MR#: [id number] : 1945 Acct:[id number] Age/Sex: 79 / F ADM Date: 02/28/25 Loc: MRI Attending Dr: Angi Powers [employer] Ordering Physician: Angi Powers NP Date of Service: 02/28/25 Procedure(s): MR lumbar spine wo con Accession Number(s): [id number] cc: WILY PRADO Anna NP [address] [address] Patient Name: NUVIA MARTIN MRN: [id number] date: 1945 Sex: F Assigned Patient Location: MRI Current Patient Location: MRI Accession/Order Number: [id number] Exam Date: 02/28/2025 09:35 Report Date: 02/28/2025 12:22 At the request of: ANGI POWERS NP Procedure: MR lumbar spine wo con MRI of the lumbar spine performed without contrast INDICATION: Neurogenic claudication COMPARISON: MRI lumbar spine 09/16/2023 FINDINGS: Lumbar vertebral heights are maintained. Anterolisthesis L3-4 and L4-L5 identified 3 mm and 7 mm respectively, mildly progressed. Related to the advanced facet arthropathy these levels. Otherwise moderate intervertebral space narrowing L3-S1. Degenerative marrow changes L4-5 noted appearing predominantly sclerotic Modic type III. Conus medullaris terminates normally at there are simple cyst right kidney. Left renal cysts noted 1 cm size, has some intermediate T2 characteristics but too small to adequately characterize by cross-sectional imaging. Common bile duct is prominent 9 mm. T12-L2: Disc desiccation with facet arthropathy. No significant disc disease or central canal or foraminal narrowing identified. At L2-3: Broad-based disc bulge with mild facet arthropathy and facet joint effusion. Mild central canal narrowing. There is minimal foraminal narrowing. L3-4: Circumferential disc bulge with endplate osteophytosis extending into both foramina zones and moderate severe facet arthropathy. Slight uncovering the posterior disc as well. There is slight cranial migration of disc noted 5 mm. There is moderate bilateral neural from narrowing. There is moderate central canal and gzhl-hb-fcznnwqs right-sided and moderate left-sided subarticular recess narrowing. L4-5: Circumferential disc bulge with uncovering the posterior disc due to the anterolisthesis. There is moderate severe left and severe right neural foraminal narrowing with mass effect on the exiting L4 nerve root. There is severe right-sided and moderate severe left-sided subarticular recess narrowing correlate with right greater than left L5 radiculopathy. There is a 6 mm synovial cyst not well-visualized Images Otherwise moderate central canal stenosis. L5-S1: Circumferential disc bulge with moderate facet arthropathy and endplate osteophytosis extending both foramina zones. There is moderate right-sided and rocybitz-vd-gouicw left-sided neural foraminal narrowing with encroachment upon the exiting left-sided L5 nerve root. Additionally, there is a 6 mm synovial cysts contribute to the left foraminal encroachment. Correlate with left L5 radiculopathy. MR/MR lumbar spine wo con IMPRESSION: Stable multilevel degenerative changes greatest lower lumbar spine predominantly caused by posterior element hypertrophic changes. Please correlate with possible right L4 and L5 radiculopathy due to the right foraminal zone and subarticular zone encroachment and correlate with possible left L5 radiculopathy due to the left foraminal zone encroachment. Otherwise stable moderate multilevel canal narrowing. Impression dictated by: Benja Escudero M.D. 02/28/2025 12:22 PM Dictation Location: [place] [address] Electronically authenticated by: [id number] Y Date: 02/28/2025 12:22 Dictated By: Benja Escudero M.D. Signed By: 02/28/25 1224 (more content not included)...TBHRadiology, Radiologist, MD - 02/28/2025 [place] [address] Magnetic Resonance Report Signed Patient: NUVIA MARTIN MR#: [id number] : 1945 Acct:[id number] Age/Sex: 79 / F ADM Date: 02/28/25 Loc: MRI Attending Dr: Angi Powers NP Ordering Physician: Angi Powers NP Date of Service: 02/28/25 Procedure(s): MR lumbar spine wo con Accession Number(s): [id number] cc: WILY PRADO ; Angi Powers NP The [address] [address] Patient Name: NUVIA MARTIN MRN: [id number] date: 1945 Sex: F Assigned Patient Location: MRI Current Patient Location: MRI Accession/Order Number: [id number] Exam Date: 02/28/2025 09:35 Report Date: 02/28/2025 12:22 At the request of: ANGI POWERS NP Procedure: MR lumbar spine wo con MRI of the lumbar spine performed without contrast INDICATION: Neurogenic claudication COMPARISON: MRI lumbar spine 09/16/2023 FINDINGS: Lumbar vertebral heights are maintained. Anterolisthesis L3-4 and L4-L5 identified 3 mm and 7 mm respectively, mildly progressed. Related to the advanced facet arthropathy these levels. Otherwise moderate intervertebral space narrowing L3-S1. Degenerative marrow changes L4-5 noted appearing predominantly sclerotic Modic type III. Conus medullaris terminates normally at there are simple cyst right kidney. Left renal cysts noted 1 cm size, has some intermediate T2 characteristics but too small to adequately characterize by cross-sectional imaging. Common bile duct is prominent 9 mm. T12-L2: Disc desiccation with facet arthropathy. No significant disc disease or central canal or foraminal narrowing identified. At L2-3: Broad-based disc bulge with mild facet arthropathy and facet joint effusion. Mild central canal narrowing. There is minimal foraminal narrowing. L3-4: Circumferential disc bulge with endplate osteophytosis extending into both foramina zones and moderate severe facet arthropathy. Slight uncovering the posterior disc as well. There is slight cranial migration of disc noted 5 mm. There is moderate bilateral neural from narrowing. There is moderate central canal and uwjt-wf-kfaciztb right-sided and moderate left-sided subarticular recess narrowing. L4-5: Circumferential disc bulge with uncovering the posterior disc due to the anterolisthesis. There is moderate severe left and severe right neural foraminal narrowing with mass effect on the exiting L4 nerve root. There is severe right-sided and moderate severe left-sided subarticular recess narrowing correlate with right greater than left L5 radiculopathy. There is a 6 mm synovial cyst not well-visualized Images Otherwise moderate central canal stenosis. L5-S1: Circumferential disc bulge with moderate facet arthropathy and endplate osteophytosis extending both foramina zones. There is moderate right-sided and cjjptbfl-aw-iibvcp left-sided neural foraminal narrowing with encroachment upon the exiting left-sided L5 nerve root. Additionally, there is a 6 mm synovial cysts contribute to the left foraminal encroachment. Correlate with left L5 radiculopathy. MR/MR lumbar spine wo con IMPRESSION: Stable multilevel degenerative changes greatest lower lumbar spine predominantly caused by posterior element hypertrophic changes. Please correlate with possible right L4 and L5 radiculopathy due to the right foraminal zone and subarticular zone encroachment and correlate with possible left L5 radiculopathy due to the left foraminal zone encroachment. Otherwise stable moderate multilevel canal narrowing. Impression dictated by: Benja Escudero M.D. 02/28/2025 12:22 PM Dictation Location: [place] [address] Electronically authenticated by: [id number] Y Date: 02/28/2025 12:22 Dictated By: Benja Escudero M.D. Signed By: 02/28/25 1224 DD/ 1222 TD/TT: Grit Blaster: [facility] (narrative)[facility] LUMBAR SPINE WO CONOrdered By: Radiologist Radiology on 91-73-0528LKYPMissouri Southern Healthcare Work Phone: VAS US CAROTID ARTERY DUPLEX BILATERALon 10-19-2024 [facility] US CAROTID ARTERY DUPLEX BILATERALEXAM: [facility] US CAROTID ARTERY DUPLEX BILATERAL HISTORY: Bilateral [...] present in the vertebral artery. There is zwap-yq-nusqhusi plaque visualized in the left common carotid artery and bulb, extending into the internal carotid artery resulting in less than 50% stenosis. The peak systolic and end diastolic velocities in the distal left CCA, ICA and ECA are 68/9, 92/23 and 173 cm/s. The ICA/CCA ratio is 1.4. The external carotid artery is patent with antegrade flow. Antegrade flow is present in the v ertebral artery. IMPRESSION: 1. Less than 50% stenosis of the bilateral internal carotid arteries utilizing SRU criteria. Interpreted by: Electronically signed by CARLOZ HOUGH II, MD, PHD at 22-Oct-2024 10:54:18 AM [facility] SRU criteria: <180 No plaque <2.0 Normal <180 <50% plaque <2.0 <50% 180-230 >50% plaque 2.0 - 4.0 50-69% >230 >50% plaque >4.0 >70% PSV 125-180 cm/sec and ICA/CCA PSV Ratio >= 2.0 is also consistent with 50- 69% stenosis.NormalNot AvailableLaboratory - Hematology and Cell countson 41-01-4912QxM1n (Bld) [Mass fraction]4.8 %[facility] HealthcareNo Panel Informationon 73-21-9870Jmrepqxxgulouk and review of laboratory resultsNoOrthopaedic Hospital of Wisconsin - GlendaleCBC (H/H, RBC, INDICES, WBC, PLT)on 32-38-2378Yrothjgbqys distribution width (RBC) [Ratio]14.0 %Ngdpxh15.0-15.0Quest DiagnosticsComment on above:Performed By: #### 7600 #### [facility] [place] [address] Pipe Organ Installer: Дмитрий Mendoza MD #### [id number], 3488 #### [facility] [address] [place] [address] Pipe Organ Installer: Joyce Hurley FlatiHematocrit (Bld) [Volume fraction]40.1 %Normal 35.0-45.0Quest DiagnosticsComment on above:Performed By: #### 1740 #### [facility] [place] [address] Pipe Organ Installer: Дмитрий Mendoza MD #### 07998, 7773 #### [facility] [address] [place] [address] Pipe Organ Installer: Joyce Hurley FlatiHemoglobin (Bld) [Mass/Vol]13.5 g/dLNormal 11.7-15.5Quest DiagnosticsComment on above:Performed By: #### 7600 #### [facility] [place] [address] Pipe Organ Installer: Дмитрий Mendoza MD #### 98031, 5199 #### [facility] [address] [place] [address] Pipe Organ Installer: Joyce FriedmaniMCH (RBC) [Entitic mass]30.6 tbYydneh18.0-33.0 Quest DiagnosticsComment on above:Performed By: #### 7600 #### [facility] [address], [address] [place] [address] Pipe Organ Installer: Дмитрий Mendoza MD #### [id number], 1464 #### [facility] [address] Pipe Organ Installer: Joyce FriedmaniMCHC (RBC) [Mass/Vol]33.7 g/dJAhqbkr40.0-36.0 Quest DiagnosticsComment on above:Result Comment: For adults, a slight decrease in the calculated MCHC value (in the range of 30 to 32 g/dL) is most likely not clinically significant; however, it should be interpreted with caution in correlation with other red cell parameters and the patient's clinical condition.Performed By: #### 7600 #### [facility] [address], [address] [place] [address] Pipe Organ Installer: Дмитрий Mendoza MD #### [id number], 4978 #### [facility] [place] [address] Pipe Organ Installer: Joyce MckeonCV (RBC) [Entitic vol]90.9 pQJxuuhw00.0-100.0 Quest DiagnosticsComment on above:Performed By: #### 7600 #### [facility] [place] [address] Pipe Organ Installer: Дмитрий Mendoza MD #### 38751, 1701 #### [facility] [address] Pipe Organ Installer: Joyce FriedmaniPlatelet mean volume (Bld) [Entitic vol]8.5 fL Normal7.5-12.5Quest DiagnosticsComment on above:Performed By: #### 7600 #### [facility] [address], [address] [place] [address] Pipe Organ Installer: Дмитрий Mendoza MD #### [id number], 1759 #### [facility] [address] [place] [phone] Pipe Organ Installer: Joyce Iniguez (Bestd) [#/Vol]309 10*3/uLNormal 140-400Quest DiagnosticsComment on above:Performed By: #### 7600 #### [facility] [address], [address] [place] [address] Pipe Organ Installer: Дмитрий Mendoza MD #### 77730, 1759 #### [facility] [address] [place] [phone] Pipe Organ Installer: Joyce Madrid (humaira) [#/Vol]4.41 10*6/uLNormal3.80-5.10 [facility] DiagnosticsComment on above:Performed By: #### 7600 #### [facility] [address], [address] [place] [address] Pipe Organ Installer: Дмитрий Mendoza MD #### 03500, 1759 #### [facility] [address] [place], [place] [phone] Pipe Organ Installer: Joyce Love (humaira) [#/Vol]7.2 10*3/uLNormal3.8-10.8 [facility] DiagnosticsComment on above:Performed By: #### 7600 #### [facility] [address], [address] [place] [address] Pipe Organ Installer: Дмитрий Mendoza MD #### 66608, 1759 #### [facility] [address] [place] [phone] Pipe Organ Installer: Joyce FriedmaniCOMPREHENSIVE METABOLIC PANELon 05-12-2024 Albumin [Mass/Vol]3.7 g/dLNormal3.6-5.1Quest DiagnosticsComment on above: Performed By: #### 7600 #### [facility] [address], [address] [place] [address] Pipe Organ Installer: Дмитрий Mendoza MD #### 46967, 1759 #### [facility] [address] [place], [place] [id number] Pipe Organ Installer: Joyce Hurley FlatiAlbumin/Globulin [Mass ratio]1.3 {ratio}Normal 1.0-2.5Quest DiagnosticsComment on above:Performed By: #### 7600 #### [facility] [address], [address] [place] [address] Pipe Organ Installer: Дмитрий Mendoza MD #### 68127, 1759 #### [facility] [address] [place], [place] [id number] Pipe Organ Installer: Joyce Hurley FlatiALP [Catalytic activity/Vol]35 U/FNbk93-465 Quest DiagnosticsComment on above:Performed By: #### 7600 #### [facility] [address], [address] [place] [address] Pipe Organ Installer: Дмитрий Mendoza MD #### 33010, 1759 #### [facility] [address] [place] [address] Pipe Organ Installer: Joyce Hurley FlatiALT [Catalytic activity/Vol]16 U/LNormal6-29 Quest DiagnosticsComment on above:Performed By: #### 7600 #### [facility] [address], [address] [place] [address] Pipe Organ Installer: Дмитрий Mendoza MD #### 92487, 1759 #### [facility] [address] [place], [place] [id number] Pipe Organ Installer: Joyce Hurley FlatiAST [Catalytic activity/Vol]26 U/QBniwzh34-46 Quest DiagnosticsComment on above:Performed By: #### 7600 #### [facility] [address], [address] [place] [address] Pipe Organ Installer: Дмитрий Mendoza MD #### 61625, 175 #### [facility] [address] [place], [place] [id number] Pipe Organ Installer: Joyce R FlatiBilirubin [Mass/Vol]0.5 mg/dLNormal0.2-1.2 Quest DiagnosticsComment on above:Performed By: #### 7600 #### [facility] [address], [address] [place] [address] Pipe Organ Installer: Дмитрий Mendoza MD #### 24198, 1759 #### [facility] [address] [place] [address] Pipe Organ Installer: Joyce FriedmaniBUN/CREATININE RATIOSEE NOTE:Normal6-22Quest DiagnosticsComment on above:Result Comment: Not Reported: BUN and Creatinine are within reference range.Performed By: #### 7600 #### [facility] [address], [address] [place] [address] Pipe Organ Installer: Дмитрий Mendoza MD #### 56781, 9879 #### [facility] [address] [place] [address] Pipe Organ Installer: Joyce Hurley FlatiCalcium [Mass/Vol]9.6 mg/dLNormal8.6-10.4Quest DiagnosticsComment on above:Performed By: #### 7600 #### [facility] [address], [address] [place] [address] Pipe Organ Installer: Дмитрий Mendoza MD #### 26542, 1752 #### [facility] [address] Pipe Organ Installer: Joyce Hurley FlatiChloride [Moles/Vol]97 mmol/OPdb89-209Jhtdq DiagnosticsComment on above:Performed By: #### 7600 #### [facility] [address], [address] [place] [address] Pipe Organ Installer: Дмитрий Mendoza MD #### 30118, 1751 #### [facility] [address] [place] [address] Pipe Organ Installer: Joyce Hurley FlatiCO2 [Moles/Vol]30 mmol/ROnyjga63-93Ulvei DiagnosticsComment on above:Performed By: #### 0350 #### [facility] [address], [address] [place] [address] Pipe Organ Installer: Дмитрий Mendoza MD #### 03078, 1759 #### [facility] [phone] Pipe Organ Installer: Joyce Hurley FlatiCreatinine [Mass/Vol]0.69 mg/dLNormal0.60-1.00 Quest DiagnosticsComment on above:Performed By: #### 7600 #### [facility] [address], [address] [place] [address] Pipe Organ Installer: Дмитрий Mendoza MD #### 65602, 1759 #### [place] [address] Pipe Organ Installer: Joyce Hurley FlatiGFR/1.73 sq M.predicted among non-blacks MDRD (S/P/Bld) [Vol rate/Area]90 mL/min/{1.73_m2}Normal> OR = 60[facility] Comment on above:Performed By: #### 7600 #### [facility] [address], [address] [place] [address] Pipe Organ Installer: Дмитрий Menodza MD #### 47102, 1759 #### [facility] [address] Pipe Organ Installer: Joyce Hurley FlatiGlobulin (S) [Mass/Vol]2.8 g/dLNormal1.9-3.7 Quest DiagnosticsComment on above:Performed By: #### 7600 #### [facility] [address], [address] [place] [address] Pipe Organ Installer: Дмитрий Mendoza MD #### 85453, 1759 #### [facility] [address] Pipe Organ Installer: Joyce Hurley FlatiGlucose [Mass/Vol]81 mg/jFCioujm57-258Ulkhk DiagnosticsComment on above:Result Comment: Non-fasting reference intervalPerformed By: #### 7600 #### [facility] [address], [address] [place] [address] Pipe Organ Installer: Дмитрий Mendoza MD #### 47563, 1759 #### [facility] [address] Pipe Organ Installer: Joyce Hurley FlatiPotassium [Moles/Vol]4.1 mmol/LNormal3.5-5.3 [facility] DiagnosticsComment on above:Performed By: #### 7600 #### [facility] [address], [address] [place] [address] Pipe Organ Installer: Дмитрий Mendoza MD #### 97048, 1759 #### [facility] [address] Pipe Organ Installer: Joyce Hurley FlatiProtein [Mass/Vol]6.5 g/dLNormal6.1-8.1Quest DiagnosticsComment on above:Performed By: #### 7600 #### [facility] [address], [address] [place] [address] Pipe Organ Installer: Дмитрий Mendoza MD #### 81783, 1759 #### [facility] [address] Pipe Organ Installer: Joyce Hurley FlatiSodium [Moles/Vol]135 mmol/HLgkkwg295-818Itwvi DiagnosticsComment on above:Performed By: #### 7600 #### [facility] [address], [address] [place] [address] Pipe Organ Installer: Дмитрий Mendoza MD #### 61569, 1759 #### [facility] [address] Pipe Organ Installer: Joyce FriedmaniUrea nitrogen [Mass/Vol]21 mg/dLNormal7-25 [facility] DiagnosticsComment on above:Performed By: #### 7600 #### [facility] [address], [address] [place] [address] Pipe Organ Installer: Дмитрий Mendoza MD #### 14698, 1759 #### [facility] [address] [place] [address] Pipe Organ Installer: Joyce MCKEONProMedica Bay Park [facility] 60-40-0292Yqxunqzzkvc [Mass/Vol]156 mg/dLNormal<200Quest DiagnosticsComment on above:Order Comment: FASTING:NO COLLECTION REQUIREMENTS NOT MET. PATIENT ADVISED TO RETURN. FASTING: NOPerformed By: #### 7600 #### [facility] [address], [address] [place] [address] Pipe Organ Installer: Дмитрий Mendoza MD #### 99374, 1759 #### [facility] [address] [place] [address] Pipe Organ Installer: Joyce FriedmaniCholesterol in HDL [Mass/Vol]42 mg/dLLow> OR = 50Quest DiagnosticsComment on above:Order Comment: FASTING:NO COLLECTION REQUIREMENTS NOT MET. PATIENT ADVISED TO RETURN. FASTING: NOPerformed By: #### 7600 #### [facility] [address], [address] [place] [address] Pipe Organ Installer: Дмитрий Mendoza MD #### 37850, 1759 #### [facility] [address] [place] [address] Pipe Organ Installer: Joyce FriedmaniCholesterol in LDL [Mass/Vol]85 mg/dLNormal [facility] DiagnosticsComment on above:Order Comment: FASTING:NO COLLECTION REQUIREMENTS NOT MET. PATIENT ADVISED TO RETURN. FASTING: NOResult Comment: Reference range: <100 Desirable range <100 mg/dL for primary prevention; <70 mg/dL for patients with CHD or diabetic patients with > or = 2 CHD risk factors. LDL-C is now calculated using the Yarely calculation, which is a validated novel method providing better accuracy than the Friedewald equation in the estimation of LDL-C. Devyn SUE et al. ZORAIDA. 2013;310(19): 7313-3962 (http://education.PublishThis.Gaudena/faq/FCW697)Performed By: #### 7600 #### [facility] [address], [address] [place] [address] Pipe Organ Installer: Дмитрий Mendoza MD #### 71407, 1759 #### [facility] [address] [place] [phone] Pipe Organ Installer: Joyce Hoffmanolesterol.total/Cholesterol in HDL [Mass ratio]3.7 {ratio}Normal<5.0Quest DiagnosticsComment on above:Order Comment: FASTING:NO COLLECTION REQUIREMENTS NOT MET. PATIENT ADVISED TO RETURN. FASTING: NOPerformed By: #### 7600 #### [facility] [address], [address] [place] [address] Pipe Organ Installer: Дмитрий Mendoza MD #### 46058, 175 #### [facility] [address] [place] [address] Pipe Organ Installer: Joyce NunesN HDL AXSQCCALFCL023 mg/dL (calc)Normal<130 Quest DiagnosticsComment on above:Order Comment: FASTING:NO COLLECTION REQUIREMENTS NOT MET. PATIENT ADVISED TO RETURN. FASTING: NOResult Comment: For patients with diabetes plus 1 major ASCVD risk factor, treating to a non-HDL-C goal of <100 mg/dL (LDL-C of <70 mg/dL) is considered a therapeutic option.Performed By: #### 7600 #### [facility] [address], [address] [place] [address] Pipe Organ Installer: Дмитрий Mendoza MD #### 52135, 1759 #### [facility] [address] [place] [phone] Pipe Organ Installer: Joyce FriedmaniTriglyceride [Mass/Vol]197 mg/dLHigh<150Quest DiagnosticsComment on above:Order Comment: FASTING:NO COLLECTION REQUIREMENTS NOT MET. PATIENT ADVISED TO RETURN. FASTING: NOPerformed By: #### 7600 #### [facility] [address], [address] [place] [address] Pipe Organ Installer: Дмитрий Mendoza MD #### 68389, 1759 #### [facility] [address] [place] [address] Pipe Organ Installer: Joyce Moore lumbar spine wo david 57-21-7395KJ lumbar spine wo [facility] [place] [address] [place] [address] XRay Report Signed Patient: Nuvia Martin MR#: [id number] : 1945 Acct:[id number] Age/Sex: 78 / F ADM Date: 09/16/23 Loc: MR Room: Type: [facility] Attending Dr: Wily Prado MD Copies to: Wily Prado MD Ordering Provider: Wily Prado MD Date of Service: 09/16/23 MR/MR lumbar spine wo con: M51.36, M43.16 M54.42, M54.41 ([id number]) XR/XR pre/post mri xray: M54.42, M54.41, M51.36, [...] Latonya Riggs M.D.09/16/2023 10:57 AM Dictation Location: [place] [address] Transcribed By: [facility] 09/16/23 1057 Dictated By: Latonya Riggs MD 09/16/23 1046 Signed By: 09/16/23 [facility] GroupXR LUMBAR SPINE 2 OR 3Von 49-90-[place], [place] [address] XRay Report Signed Patient: NUVIA MARTIN MR#: [id number] : 1945 Acct:[id number] Age/Sex: 78 / F ADM Date: 08/12/23 Loc: RAD Attending Dr: WILY PRADO Ordering Physician: WILY PRADO Date of Service: 08/12/23 Procedure(s): XR lumbar spine 2-3V Accession Number(s): [id number] cc: WILY PRADO [place] [address] Patient Name: NUVIA MARTIN MRN: [id number] date: 1945 Sex: F Assigned Patient Location: RAD Current Patient Location: Accession/Order Number: [id number] Exam Date: 08/12/2023 14:38 Report Date: 08/13/2023 06:43 At the request of: WILY PRADO Procedure: XR lumbar spine 2-3V EXAMINATION: [...] compared to prior study. Electronically authenticated by: GINGER BROOKS Date: 08/13/2023 06:43 Dictated By: Ginger Brooks M.D. Signed By: 08/13/2346 DD/ TD/TT: Grit Blaster:TBHRadiology, Radiologist, MD - 08/17/2023 [place] [address] XRay Report Signed Patient: NUVIA MARTIN MR#: [id number] : 1945 Acct:[id number] Age/Sex: 78 / F ADM Date: 08/12/23 Loc: RAD Attending Dr: WILY PRADO Ordering Physician: WILY PRADO Date of Service: 08/12/23 Procedure(s): XR lumbar spine 2-3V Accession Number(s): [id number] cc: WILY PRADO [place] [address] Patient Name: NUVIA MARTIN MRN: [facility]:[id number] date: 1945 Sex: F Assigned Patient Location: [facility] Current Patient Location: Accession/Order Number: [id number] Exam Date: 08/12/2023 14:38 Report Date: 08/13/2023 06:43 At the request of: WILY PRADO Procedure: XR lumbar spine 2-3V EXAMINATION: [...] compared to prior study. Electronically authenticated by: GINGER BROOKS Date: 08/13/2023 06:43 Dictated By: Ginger Brooks M.D. Signed By: 08/13/2346 DD/ 2 TD/TT: Grit Blaster: NOMS HealthcareRadiology Study observation (narrative)NOMS HealthcareXR LUMBAR SPINE 2 OR 3VOrdered By: Radiologist Radiology on 83-52-4872ET[facility] Work Phone: alanine aminotransferase [Enzymatic activity/volume] in Serum or PlasmaOrdered By: Taylor Tijerina on 88-36-2138BKY [Catalytic activity/Vol]16 U/L7-52Memorial HospitalAlbumin [Mass/volume] in Serum or Plasma by Bromocresol green (BCG) dye binding methoOrdered By: Taylor Tijerina on 70-68-2547Cfkymkd BCG dye [Mass/Vol]3.7 g/dL3.5-5.7FSt. Mary's Medical Center, Ironton CampusAlkaline phosphatase [Enzymatic activity/volume] in Serum or PlasmaOrdered By: Taylor Lilliana on 75-63-1167DAE [Catalytic activity/Vol]72 U/D06-023QdpfekqarMemorial HospitalAspartate aminotransferase [Enzymatic activity/volume] in Serum or PlasmaOrdered By: Taylor Lilliana on 34-86-9918LQF [Catalytic activity/Vol]24 U/Y58-06XbvemxvnlMemorial HospitalBasophils Auto (Bld) [#/Vol]Ordered By: Taylor Tijerina on 86-79-2080Gccdvduwx (Bld) [#/Vol] 0.1 10*3/uL0.0-0.2FSt. Mary's Medical Center, Ironton CampusBasophils/100 WBC Auto (Bld) Ordered By: Taylor Tijerina on 98-00-7040Uuaihrunb/100 WBC (Bld)0.9 %.Memorial HospitalBilirubin.total [Mass/volume] in Serum or PlasmaOrdered By: Taylor Tijerina on 16-76-2657Olzmlping [Mass/Vol]0.4 mg/dL0.3-1.0Memorial HospitalCalcium [Mass/volume] in Serum or PlasmaOrdered By: Taylor Tijerina on 90-83-3034Yjufrzf [Mass/Vol]9.1 mg/dL8.6-10.3FSt. Mary's Medical Center, Ironton CampusCarbon dioxide, total [Moles/volume] in Serum or PlasmaOrdered By: Taylor Tijerina on 60-59-8009ZX8 [Moles/Vol]30.6 mmol/L21.0-31.0Memorial HospitalChloride [Moles/volume] in Serum or PlasmaOrdered By: Taylor Tijerina on 68-22-0477Fskxuohi [Moles/Vol]102 mmol/V04-731QnbmxtfzqMemorial HospitalCreatinine [Mass/volume] in Serum or PlasmaOrdered By: Taylor Tijerina on 97-23-9263Nmghmouwkv [Mass/Vol]0.90 mg/dL0.60-1.20Memorial HospitalEosinophils Auto (Bld) [#/Vol]Ordered By: Taylor Tijerina on 75-70-2897Hjnrkmylmef (Bld) [#/Vol]0.1 10*3/uL0.0-0.45Memorial HospitalEosinophils/100 WBC Auto (Bld)Ordered By: Taylor Lilliana on 60-51-4307Xvlqlednesu/100 WBC (Bld)2.0 %.[facility] Erythrocyte distribution width Auto (RBC) [Ratio]Ordered By: Taylor Tijerina on 32-90-7440Pexcwxipuyp distribution width (RBC) [Ratio]13.8 %11.9-15.3FSt. Mary's Medical Center, Ironton CampusFerritin [Mass/volume] in Serum or PlasmaOrdered By: Taylor Tijerina on 69-77-8327Zsttqhqf [Mass/Vol]58.3 ng/mL11.0-306.8Memorial HospitalGlobulin Calc (S) [Mass/Vol]Ordered By: Taylor Tijerina on 42-68-7666Akhhloxg (S) [Mass/Vol]2.6 g/dLMemorial Hospital Glucose [Mass/volume] in Serum or PlasmaOrdered By: Taylor Tijerina on 01-31-2023 Glucose [Mass/Vol]118 mg/hD02-599XpzadlegfMemorial HospitalComment on above:ADA recommended reference rangeRandom Glucose Reference Range is dependent on time and content of last meal. Glucose of more than 200 mg/dL in a nonstressed, ambulatory subject supports the diagnosisof Diabetes Mellitus. Hematocrit Auto (Bld) [Volume fraction]Ordered By: Taylor Tijerina on 01-31-2023 Hematocrit (Bld) [Volume fraction]40.4 %34.0-46.4FSt. Mary's Medical Center, Ironton CampusHemoglobin [Mass/volume] in BloodOrdered By: Taylor Tijerina on 01-31-2023 Hemoglobin (Bld) [Mass/Vol]13.9 g/dL11.8-15.4FSt. Mary's Medical Center, [facility] Campus Iron [Mass/volume] in Serum or PlasmaOrdered By: Taylor Tijerina on 59-24-6930Dxgy [Mass/Vol]91 ug/rG27-845TuznrqyaaMemorial HospitalIron binding capacity [Mass/volume] in Serum or PlasmaOrdered By: Taylor Tijerina on 38-84-9563Oplm binding capacity [Mass/Vol]385 ug/bT647-309AfojpwciwMemorial HospitalIron saturation [Mass Fraction] in Serum or PlasmaOrdered By: Taylor Tijerina on 54-44-8656Gkhn saturation [Mass fraction]23.6 %20-50Memorial HospitalLeukocytes [#/volume] corrected for nucleated erythrocytes in Blood by Automated counOrdered By: Taylor Tijerina on 83-64-1065WZG corrected for nucl RBC Auto (Bld) [#/Vol]6.9 10*3/uL3.8-11.6FSt. Mary's Medical Center, [facility]ont[facility] Campus Lymphocytes Auto (Bld) [#/Vol]Ordered By: Taylor Tijerina on 48-31-5257Ezlvcgnajro (Bld) [#/Vol]1.8 10*3/uL1.00-4.8[facility] Lymphocytes/100 WBC Auto (Bld)Ordered By: Taylor Tijerina on 01-31-2023 Lymphocytes/100 WBC (Bld)26.2 %.[facility] MemorialH Auto (RBC) [Entitic mass]Ordered By: Taylor Tijerina on 04-08-4011MWI (RBC) [Entitic mass] 32.5 pg24.7-34.3FSt. Mary's Medical Center, Ironton CampusMCHC Auto (RBC) [Mass/Vol] Ordered By: Taylor Tijerina on 52-50-8173SWYU (RBC) [Mass/Vol]34.4 g/dL32.0-35.0 Memorial HospitalMCV Auto (RBC) [Entitic vol]Ordered By: Taylor Tijerina on 99-29-6498VEA (RBC) [Entitic vol]94.5 eN99-457GpjmqtoeqMemorial HospitalMonocytes Auto (Bld) [#/Vol]Ordered By: Taylor Tijerina on 39-45-6204Ymzmqzodj (Bld) [#/Vol]0.6 10*3/uL0.0-0.8Memorial HospitalMonocytes/100 WBC Auto (Bld)Ordered By: Taylor Tijerina on 01-31-2023 Monocytes/100 WBC (Bld)9.2 %.Memorial HospitalNeutrophils Auto (Bld) [#/Vol]Ordered By: Taylor Tijerina on 70-19-5784Pasjsvpeufn (Bld) [#/Vol]4.2 10*3/uL1.8-7.7FSt. Mary's Medical Center, Ironton CampusNeutrophils/100 WBC Auto (Bld) Ordered By: Taylor Lilliana on 45-78-7250Thxniypiykk/100 WBC (Bld)61.7 %.Memorial HospitalNo Panel InformationOrdered By: Taylor Lilliana on 19-51-1621Fxwcmwgaq GFR (CKD-EPI)> 60.0 mL/MinMemorial Hospital Pharmacy Creatinine Clearance (Chem49.88[facility] Nucleated erythrocytes [Presence] in Blood by Automated countOrdered By: Taylor Lilliana on 48-80-1779Qxfimvhhm RBC Auto Ql (Bld)0.1 /100{WBC}0-0.5FSt. Mary's Medical Center, Ironton CampusPlatelet mean volume Auto (Bld) [Entitic vol]Ordered By: Taylor Lilliana on 12-74-3724Motptjao mean volume (Bld) [Entitic vol]7.4 fL 6.3-10.7FSt. Mary's Medical Center, Ironton CampusPlatelets Auto (Bld) [#/Vol]Ordered By: Taylor Lilliana on 84-95-4778Lmrvyicht (Bld) [#/Vol]349 10*3/qV357-548OsusqufqpMemorial HospitalPotassium [Moles/volume] in Serum or PlasmaOrdered By: Talyor Lilliana on 44-43-0078Hzeomgysy [Moles/Vol]4.2 mmol/L3.5-5.1FSt. Mary's Medical Center, Ironton CampusComment on above:Hemolysis is present at a level that could interfere with the result.Protein [Mass/volume] in Serum or PlasmaOrdered By: Taylor Tijerina on 89-39-2905Obxveyf [Mass/Vol]6.3 g/dL6.4-8.9Memorial HospitalRBC Auto (Bld) [#/Vol]Ordered By: Taylor Lilliana on 69-59-2891JLY (Bld) [#/Vol]4.27 10*6/uL3.60-5.00[facility] Hospital - Cantonerum or plasma albumin/globulin mass ratioOrdered By: Taylor Tijerina on 36-47-7504Vptezha/Globulin [Mass ratio]1.4 {ratio}[facility] - Cantonerum or plasma anion gap determinationOrdered By: Taylor Tijerina on 89-82-6623Pgdyi gap [Moles/Vol]7.6 mmol/L6.0-15.0[facility] - Cantonodium [Moles/volume] in Serum or PlasmaOrdered By: Taylor Tijerina on 63-40-0051Skufqf [Moles/Vol]136 mmol/L837-493RclszqkqsMemorial Hospital Transferrin [Mass/volume] in Serum or PlasmaOrdered By: Taylor Tijerina on 03-94-2551Yrvarlswtuc [Mass/Vol]275 mg/xR544-254JlgwrponfMemorial HospitalUrea nitrogen [Mass/volume] in Serum or PlasmaOrdered By: Taylor Tijerina on 07-05-0797Mtff nitrogen [Mass/Vol]24 mg/dL7-25[facility] WBC Auto (Bld) [#/Vol]Ordered By: Taylor Tijerina on 31-68-8211RCR (Bld) [#/Vol] 6.9 10*3/uL3.8-11.6FSt. Mary's Medical Center, Ironton CampusAlanine aminotransferase [Enzymatic activity/volume] in Serum or PlasmaOrdered By: Taylor Tijerina on 15-74-4315XIK [Catalytic activity/Vol]18 U/L7-52Memorial HospitalAlbumin [Mass/volume] in Serum or Plasma by Bromocresol green (BCG) dye binding methoOrdered By: Taylor Tijerina on 31-49-4256Crzyzbx BCG dye [Mass/Vol] 3.8 g/dL3.5-5.7FSt. Mary's Medical Center, Ironton CampusAlkaline phosphatase [Enzymatic activity/volume] in Serum or PlasmaOrdered By: Taylor Tijerina on 19-72-1060BNE [Catalytic activity/Vol]38 U/M63-816BjrkooaraMemorial HospitalAspartate aminotransferase [Enzymatic activity/volume] in Serum or PlasmaOrdered By: Taylor Tijerina on 72-46-7840DZG [Catalytic activity/Vol]22 U/E29-50DbyjbqebeMemorial HospitalBasophils Auto (Bld) [#/Vol]Ordered By: Taylor Tijerina on 53-34-2784Eyfcwqjkf (Bld) [#/Vol]0.1 10*3/uL0.0-0.2FSt. Mary's Medical Center, Ironton CampusBasophils/100 WBC Auto (Bld)Ordered By: Taylor Lilliana on 11-01-2022 Basophils/100 WBC (Bld)1.3 %.Memorial HospitalBilirubin.total [Mass/volume] in Serum or PlasmaOrdered By: Taylor Lilliana on 58-01-5560Wrqxwhaza [Mass/Vol]0.4 mg/dL0.3-1.0Memorial HospitalCalcium [Mass/volume] in Serum or PlasmaOrdered By: Taylor Tijerina on 50-24-7707Jtvppez [Mass/Vol]9.2 mg/dL8.6-10.3FSt. Mary's Medical Center, Ironton CampusCarbon dioxide, total [Moles/volume] in Serum or PlasmaOrdered By: Taylor Lilliana on 11-01-2022 CO2 [Moles/Vol]28.9 mmol/L21.0-31.0Memorial HospitalChloride [Moles/volume] in Serum or PlasmaOrdered By: Taylor Lilliana on 73-48-5648Fypuyxuk [Moles/Vol]100 mmol/V54-179HzwxfpzoxMemorial HospitalCreatinine [Mass/volume] in Serum or PlasmaOrdered By: Taylor Lilliana on 11-01-2022 Creatinine [Mass/Vol]0.76 mg/dL0.60-1.20[facility] Eosinophils Auto (Bld) [#/Vol]Ordered By: Taylor Tijerina on 66-09-1317Kdrcktwnukk (Bld) [#/Vol]0.1 10*3/uL0.0-0.45[facility] Eosinophils/100 WBC Auto (Bld)Ordered By: Taylor Tijerina on 11-01-2022 Eosinophils/100 WBC (Bld)1.7 %.Memorial HospitalErythrocyte distribution width Auto (RBC) [Ratio]Ordered By: Taylor Tijerina on 11-01-2022 Erythrocyte distribution width (RBC) [Ratio]13.6 %11.9-15.3FSt. Mary's Medical Center, Ironton CampusFerritin [Mass/volume] in Serum or PlasmaOrdered By: Taylor Tijerina on 58-49-4780Qysrgjmx [Mass/Vol]90.9 ng/mL11.0-306.8Memorial HospitalGlobulin Calc (S) [Mass/Vol]Ordered By: Taylor Tijerina on 11-01-2022 Globulin (S) [Mass/Vol]2.2 g/dLMemorial HospitalGlucose [Mass/volume] in Serum or PlasmaOrdered By: Taylor Tijerina on 91-71-0435Nppbqhe [Mass/Vol]118 mg/oT33-248LwzmvksgkMemorial HospitalComment on above:ADA recommended reference rangeRandom Glucose Reference Range is dependent on time and content of last meal. Glucose of more than 200 mg/dL in a nonstressed, ambulatory subject supports the diagnosisof Diabetes Mellitus.Hematocrit Auto (Bld) [Volume fraction]Ordered By: Taylor Tijerina on 53-78-5557Zwzstryzdr (Bld) [Volume fraction]37.4 %34.0-46.4FSt. Mary's Medical Center, Ironton CampusHemoglobin [Mass/volume] in BloodOrdered By: Taylor Tijerina on 68-15-2896Sjuisrmdjl (Bld) [Mass/Vol]13.0 g/dL11.8-15.4FSt. Mary's Medical Center, Ironton CampusIron [Mass/volume] in Serum or PlasmaOrdered By: Taylor Tijerina on 15-25-8080Opfa [Mass/Vol]94 ug/dL 50-212Memorial HospitalIron binding capacity [Mass/volume] in Serum or PlasmaOrdered By: Taylor Tijerina on 74-38-9764Yuip binding capacity [Mass/Vol]372 ug/eQ663-402AzbvhavleMemorial HospitalIron saturation [Mass Fraction] in Serum or PlasmaOrdered By: Taylor Tijerina on 94-64-3210Lnas saturation [Mass fraction]25.3 %20-50Memorial HospitalLeukocytes [#/volume] corrected for nucleated erythrocytes in Blood by Automated coun Ordered By: Taylor Tijerina on 80-51-1422BET corrected for nucl RBC Auto (Bld) [#/Vol]6.3 10*3/uL3.8-11.6FSt. Mary's Medical Center, Ironton CampusLymphocytes Auto (Bld) [#/Vol]Ordered By: Taylor Tijerina on 26-97-9812Ylwvlemoyka (Bld) [#/Vol]1.7 10*3/uL1.00-4.8Memorial HospitalLymphocytes/100 WBC Auto (Bld) Ordered By: Taylor Tijerina on 01-78-7384Ekzythkhekr/100 WBC (Bld)26.9 %.[facility] MemorialH Auto (RBC) [Entitic mass]Ordered By: Taylor Tijerina on 18-20-0168SKU (RBC) [Entitic mass]33.1 pg24.7-34.3FSt. Mary's Medical Center, Ir[facility] CampusMCHC Auto (RBC) [Mass/Vol]Ordered By: Taylor Tijerina on 67-83-9140RMBG (RBC) [Mass/Vol]34.7 g/dL32.0-35.0Mem[facility] HospitalMCV Auto (RBC) [Entitic vol]Ordered By: Taylor Tijerina on 22-88-9244NLX (RBC) [Entitic vol]95.6 sG50-381UrlzdwmviMemorial HospitalMonocytes Auto (Bld) [#/Vol] Ordered By: Taylor Tijerina on 68-82-7936Wgxbpeypx (Bld) [#/Vol]0.6 10*3/uL0.0-0.8 [facility] HospitalMonocytes/100 WBC Auto (Bld)Ordered By: Taylor Tijerina on 11-28-7508Grjvsvjip/100 WBC (Bld)9.5 %.Mem[facility] HospitalNeutrophils Auto (Bld) [#/Vol]Ordered By: Taylor Tijerina on 11-01-2022 Neutrophils (Bld) [#/Vol]3.8 10*3/uL1.8-7.7FSt. Mary's [facility], [facility] Neutrophils/100 WBC Auto (Bld)Ordered By: Taylor Tijerina on 11-01-2022 Neutrophils/100 WBC (Bld)60.6 %.Mem[facility] HospitalNo Panel InformationOrdered By: Taylor Tijerina on 83-45-9860Sgebrnlyp GFR (CKD-EPI)> 60.0 mL/MinMemorial HospitalPharmacy Creatinine Clearance (Chem57.26 Memorial HospitalNucleated erythrocytes [Presence] in Blood by Automated countOrdered By: Taylor Tijerina on 97-18-5996Xcifoarip RBC Auto Ql (Bld)0.2 /100{WBC}0-0.5FSt. Mary's Medical Center, [facility] CampusPlatelet mean volume Auto (Bld) [Entitic vol]Ordered By: Taylor Tijerina on 51-83-0166Hihjqovp mean volume (Bld) [Entitic vol]7.1 fL6.3-10.7FSt. Mary's [facility], [facility] Platelets Auto (Bld) [#/Vol]Ordered By: Tayolr Tijerina on 41-12-3695Xjbffjudr (Bld) [#/Vol]266 10*3/sG314-626DarxruxtfMemorial HospitalPotassium [Moles/volume] in Serum or PlasmaOrdered By: Taylor Tijerina on 11-01-2022 Potassium [Moles/Vol]4.3 mmol/L3.5-5.1FSt. Mary's Medical Center, [facility] CampusProtein [Mass/volume] in Serum or PlasmaOrdered By: Taylor Tijerina on 65-70-9472Zvpbowk [Mass/Vol]6.0 g/dL6.4-8.9Memorial HospitalRBC Auto (Bld) [#/Vol] Ordered By: Taylor Tijerina on 40-66-3938LZG (Bld) [#/Vol]3.92 10*6/uL3.60-5.00 [facility] - Cantonerum or plasma albumin/globulin mass ratio Ordered By: Taylor Tijerina on 59-07-3587Avxjqzq/Globulin [Mass ratio]1.7 {ratio} [facility] Cantonerum or plasma anion gap determinationOrdered By: Taylor Tijerina on 48-84-3717Owwon gap [Moles/Vol]11.4 mmol/L6.0-15.0[facility] Cantonodium [Moles/volume] in Serum or PlasmaOrdered By: Taylor Tijerina on 76-58-5382Uiqauo [Moles/Vol]136 mmol/T745-435PnuhxhtejMemorial HospitalTransferrin [Mass/volume] in Serum or PlasmaOrdered By: Taylor Tijerina on 82-88-8448Auhglsxnuxf [Mass/Vol]266 mg/lL495-503RhnfiyiroMemorial HospitalUrea nitrogen [Mass/volume] in Serum or PlasmaOrdered By: Taylor Tijerina on 86-05-4077Pnbk nitrogen [Mass/Vol]22 mg/dL7-25Memorial HospitalWBC Auto (Bld) [#/Vol]Ordered By: Taylor Tjierina on 77-53-1664ZJP (Bld) [#/Vol]6.3 10*3/uL3.8-11.6FSt. Mary's Medical Center, [facility] CampusBasophils Auto (Bld) [#/Vol]Ordered By: Emiyl Degroot on 16-02-5480Vlzlacxxi (Bld) [#/Vol]0.0 10*3/uL0.0-0.2FSt. Mary's Medical Center, [facility] CampusBasophils/100 WBC Auto (Bld)Ordered By: Emily Degroot on 74-58-0219Iaakwftiy/100 WBC (Bld)0.5 %. [facility] HospitalEosinophils Auto (Bld) [#/Vol]Ordered By: Emily Degroot on 52-77-3405Heedrlaojqm (Bld) [#/Vol]0.1 10*3/uL0.0-0.45 [facility] HospitalEosinophils/100 WBC Auto (Bld)Ordered By: Emily Degroot on 16-83-5309Swxjiidwyos/100 WBC (Bld)1.8 %.[facility] HospitalErythrocyte distribution width Auto (RBC) [Ratio]Ordered By: Emily Degroot on 88-83-7098Nojgekyvefl distribution width (RBC) [Ratio]15.1 %11.9-15.3FSt. Mary's Medical Center, [facility] CampusFerritin [Mass/volume] in Serum or PlasmaOrdered By: Emily Degroot on 63-87-0140Eqzgxeuc [Mass/Vol] 27.4 ng/mL11.0-306.8Mem[facility] HospitalHematocrit Auto (Bld) [Volume fraction]Ordered By: Emily Degroot on 86-39-0124Ndcmqmcswa (Bld) [Volume fraction]39.5 %34.0-46.4FSt. Mary's Medical Center, [facility] CampusHemoglobin [Mass/volume] in BloodOrdered By: Emily Degroot on 65-75-1351Wzwwpwiurn (Bld) [Mass/Vol]13.5 g/dL11.8-15.4FSt. Mary's Medical Center, [facility] CampusIron [Mass/volume] in Serum or PlasmaOrdered By: Emily Degroot on 07-22-2022 Iron [Mass/Vol]75 ug/bT48-650NiqcsizbbMemorial HospitalIron binding capacity [Mass/volume] in Serum or PlasmaOrdered By: Emily Degroot on 62-57-4948Dbuw binding capacity [Mass/Vol]486 ug/uD155-723ThqtsszhkMemorial HospitalIron saturation [Mass Fraction] in Serum or PlasmaOrdered By: Emily Degroot on 57-91-7415Zuvc saturation [Mass fraction]15.4 %20-50 [facility] HospitalLeukocytes [#/volume] corrected for nucleated erythrocytes in Blood by Automated counOrdered By: Emily Degroot on 59-63-5642CZJ corrected for nucl RBC Auto (Bld) [#/Vol]6.2 10*3/uL3.8-11.6 [facility] HospitalLymphocytes Auto (Bld) [#/Vol]Ordered By: Emily Degroot on 00-47-4390Yussqiozaew (Bld) [#/Vol]1.5 10*3/uL1.00-4.8 [facility] HospitalLymphocytes/100 WBC Auto (Bld)Ordered By: Emily Degroot on 67-39-8970Budytwnwglu/100 WBC (Bld)24.3 %.[facility] MemorialH Auto (RBC) [Entitic mass]Ordered By: Emily Degroot on 65-71-2289SJZ (RBC) [Entitic mass]31.7 pg24.7-34.3FSt. Mary's Medical Center, [place] CampusMCHC Auto (RBC) [Mass/Vol]Ordered By: Emily Degroot on 80-02-7162TPVI (RBC) [Mass/Vol]34.1 g/dL32.0-35.0Mem[facility] HospitalMCV Auto (RBC) [Entitic vol]Ordered By: Emily Degroot on 07-22-2022 MCV (RBC) [Entitic vol]92.9 bY61-865DdbshxoadMemorial HospitalMonocytes Auto (Bld) [#/Vol]Ordered By: Emily Degroot on 47-84-0394Lddrfvqye (Bld) [#/Vol]0.5 10*3/uL0.0-0.8Mem[facility] HospitalMonocytes/100 WBC Auto (Bld)Ordered By: Emily Degroot on 49-03-9943Xjiqswdjz/100 WBC (Bld)7.9 %. [facility] HospitalNeutrophils Auto (Bld) [#/Vol]Ordered By: Emily Degroot on 85-06-3235Lgzhmchzelq (Bld) [#/Vol]4.1 10*3/uL1.8-7.7 [facility] HospitalNeutrophils/100 WBC Auto (Bld)Ordered By: Emily Degroot on 80-80-9077Qvbsngoktga/100 WBC (Bld)65.5 %.[facility] HospitalNucleated erythrocytes [Presence] in Blood by Automated countOrdered By: Emily Degroot on 40-85-8451Atlnpcodg RBC Auto Ql (Bld)0.1 /100{WBC}0-0.5FSt. Mary's Medical Center, [facility] CampusPlatelet mean volume Auto (Bld) [Entitic vol]Ordered By: Emily Degroot on 67-02-8400Iwosfoup mean volume (Bld) [Entitic vol]7.1 fL6.3-10.7FSt. Mary's Medical Center, [place] CampusPlatelets Auto (Bld) [#/Vol]Ordered By: Emily Degroot on 26-56-5381Nvsuyguxk (Bld) [#/Vol]308 10*3/pE086-515ZwimcmnnxMemorial HospitalRBC Auto (Bld) [#/Vol] Ordered By: Emily Degroot on 53-65-3854WQU (Bld) [#/Vol]4.25 10*6/uL 3.60-5.00Mem[facility] HospitalTransferrin [Mass/volume] in Serum or PlasmaOrdered By: Emily Degroot on 33-12-6515Gbmdnyqsoxz [Mass/Vol]347 mg/cB399-979SyvqbsluaMemorial HospitalWBC Auto (Bld) [#/Vol]Ordered By: Emily Degroot on 59-73-7985HSP (Bld) [#/Vol]6.2 10*3/uL3.8-11.6FSt. Mary's Medical Center, [facility] CampusAnisocytosis LM Ql (Bld)Ordered By: Marisabel Noel on 40-75-1672Lxxckqmanaif Ql (Bld)ModerateMemorial Hospital Basophils Auto (Bld) [#/Vol]Ordered By: Marisabel Noel on 51-00-2857Xwhjtxjni (Bld) [#/Vol]0.1 10*3/uL0.0-0.2FSt. Mary's Medical Center, [facility] CampusBasophils/100 WBC Auto (Bld)Ordered By: Marisabel Noel on 58-83-0831Rauwkgokg/100 WBC (Bld)0.8 %. [facility] HospitalCT biopsyOrdered By: Marisabel Noel on 04-23-2022 Transferrin [Mass/Vol]309 mg/jZ311-716PxijqwsolMemorial Hospital Eosinophils Auto (Bld) [#/Vol]Ordered By: Marisabel Noel on 42-70-9232Dssjmqhhcfu (Bld) [#/Vol]0.2 10*3/uL0.0-0.45Mem[facility] HospitalEosinophils/100 WBC Auto (Bld)Ordered By: Marisabel Noel on 43-91-5024Edjoxqzgmlt/100 WBC (Bld)3.3 %.[facility] HospitalErythrocyte distribution width Auto (RBC) [Ratio]Ordered By: Marisabel Noel on 66-49-1467Xonusslbxrr distribution width (RBC) [Ratio]16.9 %11.9-15.3FSt. Mary's Medical Center, [place] CampusFerritin [Mass/volume] in Serum or PlasmaOrdered By: Marisabel Noel on 63-18-4217Qqevszas [Mass/Vol]40.0 ng/yQ18-108.8Memorial HospitalHematocrit Auto (Bld) [Volume fraction]Ordered By: Marisabel Noel on 95-93-9776Pmdtlclgyr (Bld) [Volume fraction] 40.2 %34.0-46.4FSt. Mary's Medical Center, [facility] CampusHemoglobin [Mass/volume] in BloodOrdered By: Marisabel Noel on 13-29-2723Tnwnivsmdx (Bld) [Mass/Vol]13.5 g/dL 11.8-15.4FSt. Mary's Medical Center, [facility] CampusHypochromia LM Ql (Bld)Ordered By: Marisabel Noel on 16-54-2150Ymwaicuesps Ql (Bld)ModerateMemorial HospitalIron [Mass/volume] in Serum or PlasmaOrdered By: Marisabel Noel on 04-23-2022 Iron [Mass/Vol]73 ug/wP73-600IvyifokdjMemorial HospitalIron binding capacity [Mass/volume] in Serum or PlasmaOrdered By: Marisabel Noel on 04-23-2022 Iron binding capacity [Mass/Vol]433 ug/pF414-174QfibfsrghMemorial HospitalIron saturation [Mass Fraction] in Serum or PlasmaOrdered By: Marisabel Noel on 46-73-4471Aikp saturation [Mass fraction]16.0 %20-50Mem[facility] HospitalLeukocytes [#/volume] corrected for nucleated erythrocytes in Blood by Automated counOrdered By: Marisabel Noel on 92-91-3017FCB corrected for nucl RBC Auto (Bld) [#/Vol]7.0 10*3/uL3.8-11.6FSt. Mary's Medical [facility], [facility] Lymphocytes Auto (Bld) [#/Vol]Ordered By: Marisabel Noel on 45-94-2637Hyqhkjgrpat (Bld) [#/Vol]1.4 10*3/uL1.00-4.8Mem[facility] HospitalLymphocytes/100 WBC Auto (Bld)Ordered By: Marisabel Noel on 35-13-0952Nptxsovcrjz/100 WBC (Bld) 20.8 %.Memorial HospitalMCH Auto (RBC) [Entitic mass]Ordered By: Marisabel Noel on 50-99-6743OZU (RBC) [Entitic mass]29.8 pg24.7-34.3FSt. Mary's Medical Center, [facility] CampusMCHC Auto (RBC) [Mass/Vol]Ordered By: Marisabel Noel on 42-51-3202MYND (RBC) [Mass/Vol]33.4 g/dL32.0-35.0Mem[facility] HospitalMCV Auto (RBC) [Entitic vol]Ordered By: Marisabel Noel on 99-80-6796LAC (RBC) [Entitic vol]89.2 gT22-223SrikfwikqMemorial HospitalMicrocytes LM Ql (Bld)Ordered By: Marisabel Noel on 40-42-4078Ayaodpdveg Ql (Bld)SlightMemorial HospitalMonocytes Auto (Bld) [#/Vol]Ordered By: Marisabel Noel on 42-40-8915Txsomtjii (Bld) [#/Vol]0.5 10*3/uL0.0-0.8Mem[facility] HospitalMonocytes/100 WBC Auto (Bld)Ordered By: Marisabel Noel on 04-23-2022 Monocytes/100 WBC (Bld)6.9 %.[facility] HospitalNeutrophils Auto (Bld) [#/Vol]Ordered By: Marisabel Noel on 18-62-2954Ggpfuaewgir (Bld) [#/Vol]4.7 10*3/uL1.8-7.7FSt. Mary's Medical Center, [facility] CampusNeutrophils/100 WBC Auto (Bld) Ordered By: Marisabel Noel on 04-92-6191Pqxhqinaqfl/100 WBC (Bld)68.2 %.[facility]orial HospitalNucleated erythrocytes [Presence] in Blood by Automated countOrdered By: Marisabel Noel on 06-37-2012Fakkhttjo RBC Auto Ql (Bld)0.1 /100{WBC}0-0.5FSt. Mary's Medical Center, [place] CampusOvalocyte detectionOrdered By: Marisabel Noel on 10-69-4961Gqnagxipqa LM Ql (Bld)[facility] HospitalPlatelet adequacy [Presence] in Blood by Light microscopyOrdered By: Marisabel Noel on 05-05-0840Rztvuouvz LM Ql (Bld)NormalNormAultman Orrville HospitalPlatelet mean volume Auto (Bld) [Entitic vol]Ordered By: Marisabel Noel on 44-75-4993Fmemyvwa mean volume (Bld) [Entitic vol]6.9 fL6.3-10.7FSt. Mary's Medical Center, [place] CampusPlatelet morphology finding [Identifier] in BloodOrdered By: Marisabel Noel on 55-14-0417Svopkqng morphology finding Nom (Bld)NormalNoal Memorial HospitalPlatelets Auto (Bld) [#/Vol]Ordered By: Marisabel Noel on 63-17-9763Upkwcvmeb (Bld) [#/Vol]298 10*3/jM729-710JrsarnbqlMemorial HospitalRB Auto (Bld) [#/Vol]Ordered By: Marisabel Noel on 91-69-8393AOR (Bld) [#/Vol]4.51 10*6/uL3.60-5.00Memorial HospitalRB morphologyOrdered By: Marisabel Noel on 68-05-5847AQH morphology finding Nom (Bld) N/Wilson HealthRed blood cell stomatocyte detectionOrdered By: Marisabel Noel on 65-11-5928Vzuufqibprzn LM Ql (Bld)SlightMemorial HospitalWBC Auto (Bld) [#/Vol]Ordered By: Marisabel Noel on 51-76-1098AZQ (Bld) [#/Vol]7.0 10*3/uL3.8-11.6FSt. Mary's Medical Center, [place] CampusBasophils Auto (Bld) [#/Vol]Ordered By: Taylor Tijerina on 42-63-6939Wropjiclx (Bld) [#/Vol]N/A Memorial HospitalBasophils/100 WBC Auto (Bld)Ordered By: Taylor Tijerina on 28-93-5181Vejtawzzj/100 WBC (Bld)N/[facility] HealthBasophils/100 WBC (Bld)1 %0-2FSt. Mary's Medical Center, [place] CampusBlood anisocytosis detectionOrdered By: Taylor Tijerina on 46-08-2392Amytypffdbqo Ql (Bld)[facility] HospitalBlood hemoglobin measurement (mass/volume)Ordered By: Taylor Tijerina on 96-95-0961Syjwahmwoe (Bld) [Mass/Vol] 11.1 g/dL11.8-15.4FSt. Mary's Medical Center, [place] CampusBlood leukocytes automated count (number/volume)Ordered By: Taylor Tijerina on 94-05-6705ZNE (Bld) [#/Vol]4.5 10*3/uL4.5-11.0Mem[facility] HospitalCT biopsyOrdered By: Taylor Tijerina on 49-46-2466Brplovltfmy [Mass/Vol]297 mg/qI721-430ChnrulnctMemorial HospitalEosinophils Auto (Bld) [#/Vol]Ordered By: Taylor Tijerina on 67-36-8107Dfdhwfhlktp (Bld) [#/Vol]N/[facility] Eosinophils/100 WBC Auto (Bld)Ordered By: Taylor Tijerina on 02-18-2022 Eosinophils/100 WBC (Bld)N/Wilson HealthErythrocyte distribution width Auto (RBC) [Ratio]Ordered By: Taylor Tijerina on 02-18-2022 Erythrocyte distribution width (RBC) [Ratio]38.8 %11.9-15.3FSt. Mary's Medical Center, [place] CampusFerritin [Mass/volume] in Serum or PlasmaOrdered By: Taylor Tijerina on 75-48-9501Zqjjsgun [Mass/Vol]229.8 ng/sN54-300.8Memorial HospitalHematocrit Auto (Bld) [Volume fraction]Ordered By: Taylor Tijerina on 41-94-0576Toxfhmntex (Bld) [Volume fraction]35.2 %34.0-46.4FSt. Mary's Medical Center, [place] CampusHypochromia detectionOrdered By: Taylor Tijerina on 02-18-2022 Hypochromia Ql (Bld)[facility] HospitalIron [Mass/volume] in Serum or PlasmaOrdered By: Taylor Tijerina on 90-76-5777Pwyi [Mass/Vol]116 ug/dL 40-150Memorial HospitalIron binding capacity [Mass/volume] in Serum or PlasmaOrdered By: Taylor Tijerina on 03-10-9334Qmtk binding capacity [Mass/Vol]416 ug/iP006-063UbnybhgzyMemorial HospitalIron saturation [Mass Fraction] in Serum or PlasmaOrdered By: Taylor Tijerina on 72-65-2045Haab saturation [Mass fraction]27.0 %20-50Mem[facility] HospitalLaboratory - Hematology and Cell countsOrdered By: Tyalor Tijerina on 47-81-2125Vtqd form neutrophils/100 WBC (Bld)2 %0-5FSt. Mary's Medical Center, [facility] CampusNucleated RBC/100 WBC (Bld) [Ratio]0.1 %0-0.5FSt. Mary's Medical Center, [place] CampusLymphocytes Auto (Bld) [#/Vol]Ordered By: Taylor Tijerina on 64-06-1789Xvcfkdumafs (Bld) [#/Vol]N/Wilson HealthLymphocytes/100 WBC Auto (Bld)Ordered By: Taylor Tijerina on 33-87-5533Wodedqtaakc/100 WBC (Bld)N/Wilson HealthLymphocytes/100 WBC (Bld)21 %18-42Memorial HospitalLymphocytes/100 WBC Manual cnt (Bld)Ordered By: Taylor Tijerina on 70-14-5125Jkdloxbycvf/100 WBC (Bld)2 %0-12[facility] MemorialH Auto (RBC) [Entitic mass]Ordered By: Taylor Tijerina on 90-00-2291BUO (RBC) [Entitic mass]24.7 pg24.7-34.3FCleveland Clinic Avon HospitalHC Auto (RBC) [Mass/Vol]Ordered By: Taylor Tijerina on 52-36-5319RRCC (RBC) [Mass/Vol]31.6 g/dL 32.0-35.0[facility] MemorialV Auto (RBC) [Entitic vol]Ordered By: Taylor Tijerina on 93-96-6105PRG (RBC) [Entitic vol]78.3 aA86-135OsqkdryytMemorial HospitalMacrocytes detectionOrdered By: Taylor Tijerina on 78-18-2238Cuygsaksho Ql (Bld)ModerateMemorial HospitalMonocytes Auto (Bld) [#/Vol]Ordered By: Taylor Tijerina on 39-32-5376Efhbbmoip (Bld) [#/Vol] N/Wilson HealthMonocytes/100 WBC Auto (Bld)Ordered By: Taylor Tijerina on 54-51-1255Pitanddcn/100 WBC (Bld)N/Wilson HealthMonocytes/100 WBC Manual cnt (Bld)Ordered By: Taylor Tijerina on 02-18-2022 Monocytes/100 WBC (Bld)6 %2-11Memorial HospitalNeutrophils Auto (Bld) [#/Vol]Ordered By: Taylor Tijerina on 30-59-0728Jjrtssooskw (Bld) [#/Vol]N/A Memorial HospitalNeutrophils/100 WBC Auto (Bld)Ordered By: Taylor Tijerina on 13-29-0817Xtpuupxfrgx/100 WBC (Bld)N/[facility] HealthNo Panel InformationOrdered By: Taylor Tijerina on 00-12-4095Meflbonykdsb SlightMemorial HospitalPlatelet EstimateNormalNormAultman Orrville HospitalPlatelet Morphology CommentNormalNormAultman Orrville HospitalPlatelet mean volume Auto (Bld) [Entitic vol]Ordered By: Taylor Tijerina on 27-76-4399Jdbkarpb mean volume (Bld) [Entitic vol]8.4 fL6.3-10.7 Memorial HospitalPlatelets Auto (Bld) [#/Vol]Ordered By: Taylor Tijerina on 88-63-1030Maazkbaaj (Bld) [#/Vol]363 10*3/vM461-934OlzdockqdMemorial HospitalRBC Auto (Bld) [#/Vol]Ordered By: Taylor Tijerina on 13-84-8394TUQ (Bld) [#/Vol]4.49 10*6/uL3.60-5.00Memorial HospitalRBC morphologyOrdered By: Taylor Tijerina on 55-14-1514RVV morphology finding Nom (Bld)N/Wilson HealthRed blood cell stomatocyte detectionOrdered By: Taylor Chengpranay on 94-26-0682Xvjnnlpuluwz LM Ql (Bld)Slight [facility] - Cantonegmented neutrophils/100 WBC Manual cnt (Bld) Ordered By: Taylor Tijerina on 67-28-3988Nzxccpyph neutrophils/100 WBC (Bld)68 % 50-70Memorial HospitalProgress Noteson 61-68-9722Fvkosvxzfifwv Authentication Interface Message TextEMERGENCY TRIAGE, TREAT AND TRANSPORT (ET3) DOCUMENTATION OF TELEHEALTH VISIT Date / Time: 02/17/2022916 Name: Nuvia Martin : 1945 SSN: [id number] EMS Agency: [facility] [x] Verbal consent obtained [] [...] Disposition Reported: Same ET3 Encounter Completed by: Rob Veronica [facility] SystemCT FACIAL BONES WO CONon [id number] FACIAL BONES WO CONINDICATION: 76 years old; Female. Closed head trauma status post [...] mass effect consistent with small vessel ischemia. VENTRICLES/EXTRA-AXIAL SPACES: Normal for patient's age. Dilated perivascular [...] Electronically authenticated by: CARSON VASQUEZ Date: 2022-01-14 02:14[facility]XR [facility] 1 Von [id number] CHEST 1 VXR CHEST 1 V 01/14/2022 1:42 AM EDT [...] Electronically authenticated by: JANET SCHWARTZ Date: 2022-01-14 03:18[facility] HospitalAlbumin [Mass/volume] in Serum or PlasmaOrdered By: Taylor Tijerina on 53-33-4085Rnbnorf [Mass/Vol]3.1 g/dL2.9-4.4FSt. Mary's Medical Center, [facility] CampusBasophils Auto (Bld) [#/Vol]Ordered By: Taylor Tijerina on 55-99-3488Bajaspbjd (Bld) [#/Vol]0.1 10*3/uL0.0-0.2FSt. Mary's Medical Center, [facility] CampusBasophils/100 WBC Auto (Bld)Ordered By: Taylor Tijerina on 01-12-2022 Basophils/100 WBC (Bld)0.9 %.Mem[facility] HospitalBlood anisocytosis detectionOrdered By: Taylor Tijerina on 71-46-0229Ffiwzdmdmour Ql (Bld)Moderate Memorial HospitalBllakewood health system critical care [facility] hemoglobin measurement (mass/volume) Ordered By: Taylor Tijerina on 16-61-2542Sjdkxsgxbh (Bld) [Mass/Vol]8.2 g/dL 11.8-15.4FSt. Mary's Medical Center, [facility] CampusBllakewood health system critical care hospital leukocytes automated count (number/volume)Ordered By: Taylor Tijerina on 99-23-8502TCK (Bld) [#/Vol]6.0 10*3/uL4.5-11.0[facility] CenterBlood polychromasia detection by light microscopyOrdered By: Taylor Tijerina on 69-61-0690Ysjcfxmhfridw LM Ql (Bld)SlightMemorial HospitalBody fluid albumin measurement (mass/volume)Ordered By: Taylor Tijerina on 74-83-8360Gmdskua (Body fld) [Mass/Vol]2.9 g/dL3.2-5.5FSt. Mary's Medical Center, [facility] CampusCT biopsyOrdered By: Taylor Tijerina on 35-13-8115Temnitykqsc [Mass/Vol]479 mg/gG213-430YnfxkcglgMemorial HospitalCreatinine and Glomerular filtration rate.predicted panel (S/P/Bld)Ordered By: Taylor Tijerina on 05-47-1623Xbnzlovcni [Mass/Vol]0.76 mg/dL 0.44-1.03Memorial HospitalEosinophils Auto (Bld) [#/Vol]Ordered By: Taylor Tijerina on 84-55-3596Arecithovdm (Bld) [#/Vol]0.1 10*3/uL0.0-0.45 Memorial HospitalEosinophils/100 WBC Auto (Bld)Ordered By: Taylor Tijerina on 71-97-0052Espaehsuafx/100 WBC (Bld)1.3 %.Memorial HospitalErythrocyte distribution width Auto (RBC) [Ratio]Ordered By: Taylor Tijerina on 64-00-3031Lbujpmdkrbn distribution width (RBC) [Ratio]22.4 %11.9-15.3 Memorial HospitalErythrocyte sedimentation rate by Photometric methodOrdered By: Taylor Tijerina on 62-87-8924IPB Photometric method (Bld) [Velocity]21 mm/hr0-29Memorial HospitalEstimated glomerular filtration rate (GFR) non- AmericanOrdered By: Taylor Tijerina on 55-89-5424MZT/1.73 sq M.predicted among non-blacks MDRD (S/P/Bld) [Vol rate/Area]> 60 mL/MinMemorial HospitalFerritin [Mass/volume] in Serum or PlasmaOrdered By: Taylor Tijerina on 15-09-9706Smytqzaf [Mass/Vol]10.8 ng/bP40-663.8Memorial HospitalFolate [Mass/volume] in Serum or PlasmaOrdered By: Taylor Tijerina on 62-83-1253Rtyqgx [Mass/Vol]ng/mL>5.9Memorial HospitalComment on above:Folate reference range: >5.9 ng/ml The WHO technical consultation on folate and vitamin b12 deficiencies has determined that folate concentrations less than 4 ng/ml are considered deficient.Folate reference range: >5.9 ng/mlThe WHO technical consultation on folate and vitamin d08rzometardifd has determined that folate concentrations lessthan 4 ng/ml are considered deficient.Globulin Calc (S) [Mass/Vol]Ordered By: Taylor Tijerina on 26-37-7047Upuepwcc (S) [Mass/Vol]3.1 g/dLMemorial HospitalHematocrit Auto (Bld) [Volume fraction] Ordered By: Taylor Tijerina on 82-71-7645Zxumskpkxg (Bld) [Volume fraction]27.4 % 34.0-46.4FSt. Mary's Medical Center, Ironton CampusHypochromia detectionOrdered By: Taylor Tijerina on 05-07-0371Znpgapafahv Ql (Bld)ModerateMemorial HospitalIgA [Mass/volume] in Serum or PlasmaOrdered By: Taylor Tijerina on 72-25-8661OaL [Mass/Vol]206 mg/eQ49-014PfxfgjtevMemorial HospitalIgG [Mass/volume] in Serum or PlasmaOrdered By: Taylor Tijerina on 97-45-7077QkF [Mass/Vol]1070 mg/eQ372-4272IhmbzrtujMemorial HospitalIgM [Mass/volume] in Serum or PlasmaOrdered By: Taylor Tijerina on 95-10-5109BsE [Mass/Vol]166 mg/dL 26-217Memorial HospitalComment on above:Performed at: [facility] [address] [place], [place] [id number] Payer Specialist: Carlos Mcintyre PhD, Phone: [phone] at: [facility] [employer] [id number] Director: Carlos Mcintyre PhD, Phone: [phone] light chains.kappa.free [Mass/volume] in SerumOrdered By: Taylor Tijerina on 87-87-5410Mphpjivmbqlmxh light chains.kappa.free (S) [Mass/Vol]44.4 mg/L3.3-19.4FSt. Mary's Medical Center, [place]onton CampusImmunoglobulin light chains.kappa.free/Immunoglobulin light chains.lambda.free [MassOrdered By: Taylor Tijerina on 12-72-5440Crcyhvifnmxqse light chains.kappa.free/Immunoglobulin light chains.lambda.free (S) [Mass ratio] 1.600.26-1.65Memorial HospitalComment on above:Performed at: [facility] [employer] [id number] Payer Specialist: Carlos Mcintyre PhD, Phone: [phone] at: [facility] [employer] [id number] Director: Carlos Mcintyre PhD, Phone: [phone] light chains.lambda.free [Mass/volume] in Serum or PlasmaOrdered By: Taylor Tijerina on 05-00-8528Zppbcnwftrxywx light chains.lambda.free [Mass/Vol]27.7 mg/L5.7-26.3FSt. Mary's Medical [facility], [place] Campus Iron [Mass/volume] in Serum or PlasmaOrdered By: Taylor Tijerina on 71-96-6079Pmyq [Mass/Vol]10 ug/pZ26-537XtprukkbhMemorial HospitalIron binding capacity [Mass/volume] in Serum or PlasmaOrdered By: Taylor Tijerina on 09-45-8152Oxja binding capacity [Mass/Vol]671 ug/aG560-522MraapvhysMemorial HospitalIron saturation [Mass Fraction] in Serum or PlasmaOrdered By: Taylor Tijerina on 65-92-4715Yrpv saturation [Mass fraction]1.0 %20-50Memorial HospitalLaboratory - Chemistry and Chemistry - challengeOrdered By: Taylor Tijerina on 09-63-0139Zwgcssyyb (Vitamin B12) [Mass/Vol]700 pg/dP128-107MxxwqgronMemorial HospitalLaboratory - Hematology and Cell countsOrdered By: Taylor Tijerina on 07-37-0041Rwceaxafs RBC/100 WBC (Bld) [Ratio]0.2 %0-0.5FSt. Mary's Medical Center, Ironton CampusLymphocytes Auto (Bld) [#/Vol]Ordered By: Taylor Tijerina on 52-33-1440Wuuucwhzirr (Bld) [#/Vol]1.1 10*3/uL1.00-4.8Mem[facility] HospitalLymphocytes/100 WBC Auto (Bld)Ordered By: Taylor Tijerina on 49-74-3582Hoeoixyoxsk/100 WBC (Bld)17.7 %.[facility] Lymphocytes/100 WBC (Bld)25 %18-42[facility] Auto (RBC) [Entitic mass]Ordered By: Taylor Tijerina on 75-51-2624HCU (RBC) [Entitic mass]18.6 pg24.7-34.3FSt. Mary's Medical Center, Ironton CampusMCHC Auto (RBC) [Mass/Vol] Ordered By: Taylor Tijerina on 79-59-9928WRIW (RBC) [Mass/Vol]29.8 g/dL32.0-35.0 Memorial HospitalMCV Auto (RBC) [Entitic vol]Ordered By: Taylor Tijerina on 62-26-8275KZK (RBC) [Entitic vol]62.5 uR50-130RzmtkacgoMemorial HospitalMacrocytes detectionOrdered By: Taylor Tijerina on 01-12-2022 Macrocytes Ql (Bld)SlightMemorial HospitalMonocyte %Ordered By: Taylor Tijerina on 27-90-1836Cibnrtrid/100 WBC (Bld)1 %1-3FSt. Mary's Medical Center, Ir[place] CampusMonocytes Auto (Bld) [#/Vol]Ordered By: Taylor Tijerina on 77-78-3007Vuhwrcsof (Bld) [#/Vol]0.5 10*3/uL0.0-0.8Mem[facility] HospitalMonocytes/100 WBC Auto (Bld)Ordered By: Taylor Tijerina on 01-12-2022 Monocytes/100 WBC (Bld)8.4 %.[facility] HospitalMonocytes/100 WBC Manual cnt (Bld)Ordered By: Taylor Tijerina on 15-24-4586Ruqevgyvb/100 WBC (Bld)6 %2-11Memorial HospitalNeutrophils Auto (Bld) [#/Vol]Ordered By: Taylor Tijerina on 59-58-9735Pdahzmvnpbu (Bld) [#/Vol]4.3 10*3/uL1.8-7.7FSt. Mary's Medical Center, Ironton CampusNeutrophils/100 WBC Auto (Bld)Ordered By: Taylor Peñaedwar on 70-54-8337Cqgbpoxibgp/100 WBC (Bld)71.7 %.Memorial HospitalNo Panel InformationOrdered By: Taylor Peñaedwar on 58-70-8754Uyvphkwx Reticulocyte Count0.213 10*6/uL0.024-0.084Memorial HospitalEstimated GFR ()> 60 mL/MinMemorial HospitalComment on above: GFR estimated reference range: According to KDOQI guidelines, <60 ml/min/1.73m2 is sufficient todiagnose a patient with chronic kidney disease.Microcytosis SlightMemorial HospitalPercent Reticulocyte Count4.9 %0.5-1.5 [facility] HospitalPharmacy Creatinine Clearance (Chem60.82 [facility] HospitalPlatelet EstimateNormalNormAultman Orrville HospitalPlatelet Morphology CommentNormalOhioHealth Grady Memorial HospitalProtein Electrophoresis M-SpikeComment: g/dLNot ObservedMemorial HospitalComment on above:SPE shows asymmetrical gamma.Protein Electrophoresis NoteSee comment.Memorial HospitalComment on above:Protein electrophoresis scan will follow via computer, mail, or abstracter delivery. Performed at: - [facility] [address] [id number] Payer Specialist: Carlos Mcintyre PhD, Phone: [phone] electrophoresis scan will follow via computer,mail, or abstracter delivery.Performed at: CB - [facility] [address] [id number] Director: Carlos Mcintyre PhD, Phone: [phone] ImmunofixationComment:.Memorial HospitalComment on above:Presence of monoclonal protein is unclear at this time. Suggest repeat in 3 to 6 months if clinically indicated.Presence of monoclonal protein is unclear at this time. Suggestrepeat in 3 to 6 months if clinically indicated. Platelet mean volume Auto (Bld) [Entitic vol]Ordered By: Taylor Tijerina on 23-93-6397Xqejrumt mean volume (Bld) [Entitic vol]8.4 fL6.3-10.7FSt. Mary's Medical Center, Iront[place] CampusPlatelets Auto (Bld) [#/Vol]Ordered By: Taylor Tijerina on 61-33-2491Vimhcehaw (Bld) [#/Vol]386 10*3/rW256-813QmubddicxMemorial HospitalProtein [Mass/volume] in Serum or PlasmaOrdered By: Taylor Tijerina on 20-45-3569Xnuktgj [Mass/Vol]6.0 g/dL6.1-7.9[facility] Protein [Mass/Vol]6.4 g/dL6.0-8.5FSt. Mary's Medical Center, Iront[place] CampusRBC Auto (Bld) [#/Vol]Ordered By: Taylor Tijerina on 59-32-9447GRI (Bld) [#/Vol]4.38 10*6/uL 3.60-5.00[facility] morphologyOrdered By: Taylor Tijerina on 85-27-1923ZVK morphology finding Nom (Bld)N/AFDetwiler Memorial Hospitalegmented neutrophils/100 WBC Manual cnt (Bld)Ordered By: Taylor Tijerina on 38-26-5006Ernpjjenv neutrophils/100 WBC (Bld)68 %50-70[facility] Cantonerum globulin measurement (mass/volume)Ordered By: Taylor Tijerina on 22-62-5257Kbtnrrtn (S) [Mass/Vol]3.3 g/dL2.2-3.9[facility] - Cantonerum or plasma alanine aminotransferase measurement without P-5'-P (enzymatic activiOrdered By: Taylor Tijerina on 74-04-6569HOV No additional P-5'-P [Catalytic activity/Vol]25 U/U37-93GuidwqnujMemorial Hospital Serum or plasma albumin/globulin mass ratioOrdered By: Taylor Tijerina on 38-09-7613Vvacsqc/Globulin [Mass ratio]0.9 {ratio}0.7-1.7FDetwiler Memorial Hospitalerum or plasma alkaline phosphatase measurement (enzymatic activity/volume)Ordered By: Taylor Lilliana on 50-42-8412GWH [Catalytic activity/Vol]52 U/D05-11SikwbhuulSelect Medical Specialty Hospital - Cantonerum or plasma alpha 1 globulin measurement by electrophoresis (mass/volume)Ordered By: Taylor Tijerina on 21-21-7207Aqsdd 1 globulin Elph [Mass/Vol]0.3 g/dL0.0-0.4FDetwiler Memorial Hospitalerum or plasma alpha 2 globulin measurement by electrophoresis (mass/volume)Ordered By: Taylor Tijerina on 15-27-2325Oegrr 2 globulin Elph [Mass/Vol]0.8 g/dL0.4-1.0[facility] Cantonerum or plasma anion gap determinationOrdered By: Taylor Tijerina on 69-83-3368Zvkve gap [Moles/Vol] 16.3 mmol/L6.0-15.0[facility] Cantonerum or plasma aspartate aminotransferase measurement (enzymatic activity/volume)Ordered By: Taylor Tijerina on 00-99-9752HDR [Catalytic activity/Vol]42 U/B24-56GsceyuxumSelect Medical Specialty Hospital - Cantonerum or plasma beta globulin measurement by electrophoresis (mass/volume)Ordered By: Taylor Tijerina on 82-68-1875Xnit globulin Elph [Mass/Vol]1.1 g/dL0.7-1.3FDetwiler Memorial Hospitalerum or plasma calcium measurement (mass/volume)Ordered By: Taylor Tijerina on 13-31-1440Ffxddvi [Mass/Vol]8.8 mg/dL8.2-10.2FDetwiler Memorial Hospitalerum or plasma chloride measurement (moles/volume)Ordered By: Taylor Tijerina on 01-12-2022 Chloride [Moles/Vol]84 mmol/H33-420JnbyfqaypSelect Medical Specialty Hospital - Cantonerum or plasma erythropoietin (EPO) measurement (units/volume)Ordered By: Taylor Tijerina on 52-55-4719Wvmsesuvajbefh (EPO) Qn745.9 mIU/mL2.6-18.5FSt. Mary's Medical Center, Iront[place] CampusComment on above:PlaceIQ DxI 800 Immunoassay System Values obtained with different assay methods or kits cannot be used interchangeably. Results cannot be interpreted as absolute evidence of the presence or absence of malignant disease. Performed at: [facility] [address] [id number] Payer Specialist: Carlos Mcintyre PhD, Phone: [phone] Coulter UniCel DxI 800 Immunoassay SystemValues obtained with different assay methods or kits cannotbe used interchangeably. Results cannot be interpreted asabsolute evidence of the presence or absence of malignantdisease.Performed at: [facility] [address] [id number] Director: Carlos Mcintyre PhD, Phone: [phone] or plasma gamma globulin measurement by electrophoresis (mass/volume)Ordered By: Taylor Tijerina on 00-59-0372Lfflr globulin Elph [Mass/Vol]1.1 g/dL0.4-1.8[facility] Cantonerum or plasma glucose measurement (mass/volume)Ordered By: Taylor Tijerina on 12-91-4620Yckknbi [Mass/Vol]106 mg/wB21-342AqyeybmaaMemorial HospitalComment on above:ADA recommended reference range Random Glucose Reference Range is dependent on time and content of last meal. Glucose of more than 200 mg/dL in a nonstressed, ambulatory subject supports the diagnosis of Diabetes Mellitus.ADA recommended reference rangeRandom Glucose Reference Range is dependent on time and content of last meal. Glucose of more than 200 mg/dL in a nonstressed, ambulatory subject supports the diagnosisof Diabetes Mellitus.Serum or plasma potassium measurement (moles/volume)Ordered By: Taylor Tijerina on 87-51-3376Quendoqzq [Moles/Vol]4.0 mmol/L3.5-5.1FDetwiler Memorial Hospitalerum or plasma sodium measurement (moles/volume)Ordered By: Taylor Tijerina on 36-22-4486Ojnktw [Moles/Vol]125 mmol/N387-468NbnwatdgvSelect Medical Specialty Hospital - Cantonerum or plasma total bilirubin measurement (mass/volume) Ordered By: Taylor Tijerina on 49-63-2736Suirozzmz [Mass/Vol]1.0 mg/dL0.3-1.2 [facility] Cantonerum or plasma total carbon dioxide measurement (moles/volume)Ordered By: Taylor Lilliana on 13-19-3221DL3 [Moles/Vol] 28.7 mmol/L22.0-30.0[facility] - Cantonerum or plasma urea nitrogen measurement (mass/volume)Ordered By: Taylor Lilliana on 99-40-3214Vtvr nitrogen [Mass/Vol]9 mg/dL9-23Memorial HospitalBNPon 11-24-2021 Natriuretic peptide B (Bld) [Mass/Vol]591.0 pg/mLNormal<=900.0The [facility] CenterComment on above:Performed By: #### CMP, BNP #### [facility] [address] [place] [address] Dr. Good Huang AUTO DIFFon 97-19-2697GARE #0.1 103/ulNormal0.0-0.1The [facility] CenterComment on above:Performed By: #### CMP, CMADM #### [facility] [address] [place] [address] Dr. Good Nolansophils/100 WBC (Bld)0.7 %Normal0.2-2.0[facility] Comment on above:Performed By: #### CMP, CMADM #### [facility] [address] [place] [address] Dr. Good Britt #0.2 103/ulNormal0.0-0.7The [facility] CenterComment on above: Performed By: #### CMP, CMADM #### [facility] [address] [place] [address] Dr. Good Fortuneosinophils/100 WBC (Bld)2.4 %Normal0.9-7.0The [facility] Comment on above:Performed By: #### CMP, CMADM #### [facility] [address] [place] [address] Dr. Good Fortunerythrocyte distribution width (RBC) [Ratio]19.1 %Critically high 11.0-15.0The [facility] CenterComment on above:Performed By: #### CMP, CMADM #### [facility] [address] [address] [address] Good Harveyatocrit (Bld) [Volume fraction]25.5 %Critically low36.0-48.0 The [facility] Medical CenterComment on above:Performed By: #### CMP, CMADM #### [facility] [address] [place] [address] Dr. Good MontielHemoglobin (Bld) [Mass/Vol]7.4 g/dLCritically low12.0-16.0The [facility] CenterComment on above:Performed By: #### CMP, CMADM #### [facility] [address] [place] [address] Dr. Good Jones #0.05 10e3/ulCritically high0.00-0.03The [facility] Comment on above:Performed By: #### CMP, CMADM #### [facility] [address] [place] [address] Dr. Good Jones %0.6 %Critically high0.0-0.5The [facility] Medical CenterComment on above:Performed By: #### CMP, CMADM #### [facility] [address] [place] [address] Dr. Good Angeles #1.7 103/ulNormal1.2-3.8The [facility] CenterComment on above:Performed By: #### CMP, CMADM #### [facility] [address] [place] [address] Dr. Good Patelhocytes/100 WBC (Bld)20.6 %Ppynxp97.5-60.0The [facility] CenterComment on above:Performed By: #### CMP, CMADM #### [facility] [address] [place] [address] Dr. Good AcostaUAL DIFF REQNONormalThe [facility] Medical CenterComment on above: Performed By: #### CMP, CMADM #### [facility] [address] [place] [address] Dr. Good Schafer (RBC) [Entitic mass]18.9 pgCritically low26.7-34.0The [facility] Medical CenterComment on above:Performed By: #### CMP, CMADM #### [facility] [address] [place] [address] Dr. Good MorinHC (RBC) [Mass/Vol]29.0 g/dLCritically low29.9-35.2The [facility] CenterComment on above:Performed By: #### CMP, CMADM #### [facility] [address] [place] [address] Dr. Good Proctor (RBC) [Entitic vol]65.2 fLCritically low81.0-99.0The [facility] CenterComment on above:Performed By: #### CMP, CMADM #### [facility] [address] [place] [address] Dr. Good Iniguez #0.8 103/ulNormal0.3-0.8The [facility] CenterComment on above:Performed By: #### CMP, CMADM #### [facility] [address] [place] [address] Dr. Good Laytonocytes/100 WBC (Bld)9.4 %Normal1.7-12.0The [facility] Comment on above:Performed By: #### CMP, CMADM #### [facility] [address] [place] [address] Dr. Good Godoy #5.5 103/ulNormal1.4-6.5The [facility] Medical CenterComment on above:Performed By: #### CMP, CMADM #### [facility] [address] [place] [address] Dr. Good Jainutrophils/100 WBC (Bld)66.3 %Mnkeae22.0-75.0The [facility] Medical CenterComment on above:Performed By: #### CMP, CMADM #### [facility] [address] [place] [address] Dr. Good Gould mean volume (Bld) [Entitic vol]9.1 fLCritically low 9.5-13.5The [facility] CenterComment on above:Performed By: #### CMP, CMADM #### [facility] [address] [address] [address] Good MontielPLT431 103/qfWmncuq004-490Fro [facility] CenterComment on above: Performed By: #### CMP, CMADM #### [facility] [address] [place] [address] Dr. Good MontielRBC3.91 106/ulCritically low4.20-5.40The [facility] Medical CenterComment on above:Performed By: #### CMP, CMADM #### [facility] [address] [place] [address] Dr. Good MontielWBC8.3 103/ulNormal4.0-11.0The [facility] Medical CenterComment on above: Performed By: #### CMP, CMADM #### [facility] [address] [place] [address] Dr. Good MontielCovihumaira-19 PCR (CVDTB)on 11-39-5794ISKX-CoV-2 (COVID-19) RNA FELECIA+probe Ql (Unsp spec)Not detectedNormalNOT DETECTEDThe [facility] Comment on above:Result Comment: When diagnostic testing is negative, the [...] for this test is supported by the [place] of Health and Human Service's declaration that circumstances exist to justify the emergency use of in vitro diagnostics for the detection and/or diagnosis of the virus that causes COVID-19. This EUA will remain in effect for the duration of the COVID-19 declaration justifying emergency of IVDs, unless it is terminated or revoked by the FDA (after which the test may no longer be used).Performed By: #### MMA2 #### [facility] [address] [place] [address] Dr. Good MontielPROF 14(COMP METB)on 93-11-1321Aizjsta [Mass/Vol]3.1 g/dL Critically low3.4-5.0The [facility] Medical CenterComment on above:Performed By: #### CMP, BNP #### [facility] [address] [place] [address] Dr. Good MontielAlbumin/Globulin [Mass ratio]0.9 {ratio}NormalThe [facility] Medical CenterComment on above:Performed By: #### CMP, BNP #### [facility] [address] [place] [address] Dr. Good Hawkins [Catalytic activity/Vol]60 U/JEjcwjb91-682Dia [facility] CenterComment on above:Performed By: #### CMP, BNP #### [facility] [address] [place] [address] Dr. Good Miramontes [Catalytic activity/Vol]30 U/VWagquz95-89Plt [facility] CenterComment on above:Performed By: #### CMP, BNP #### [facility] [address] [place] [address] Dr. Good Ríos gap [Moles/Vol]10.1 mmol/LNormalThe [facility] Comment on above:Performed By: #### CMP, BNP #### [facility] [address] [place] [address] Dr. Good Vaughan [Catalytic activity/Vol]32 U/SQyzjjt92-40Uhg [facility] CenterComment on above:Performed By: #### CMP, BNP #### [facility] [address] [place] [address] Dr. Good MontielBilirubin [Mass/Vol]0.7 mg/dLNormal0.2-1.0The [facility] Comment on above:Performed By: #### CMP, BNP #### [facility] [address] [place] [address] Dr. Good MontielCalcium [Mass/Vol]8.7 mg/dLNormal8.5-10.1[facility] Comment on above:Performed By: #### CMP, BNP #### [facility] [address] [place] [address] Dr. Yilan ChangChloride [Moles/Vol]93 mmol/LCritically vdp37-674KhpWilson Street HospitalComment on above:Performed By: #### CMP, BNP #### [facility] [address] [place] [address] Dr. Good MontielCO2 [Moles/Vol]27.5 mmol/WIwoucs90.0-32.0The [facility] Comment on above:Performed By: #### CMP, BNP #### [facility] [address] [place] [address] Dr. Good MontielCreatinine [Mass/Vol]0.80 mg/dLNormal0.55-1.02The [facility] Medical CenterComment on above:Performed By: #### CMP, BNP #### [facility] [address] [place] [address] Dr. Good FortuneGFR-AF COLOMBIAN>60Normal>=60The [facility] Medical CenterComment on above:Performed By: #### CMP, BNP #### [facility] [address] [place] [address] Dr. Good FortuneGFR-NON AF COLOMBIAN>60Normal>=60The [facility] Medical CenterComment on above:Performed By: #### CMP, BNP #### [facility] [address] [place] [address] Dr. Good MontielGlobulin (S) [Mass/Vol]3.5 g/dLNormalThe [facility] Medical CenterComment on above:Performed By: #### CMP, BNP #### [facility] [address] [place] [address] Dr. Good MontielGlucose [Mass/Vol]146 mg/dLCritically vtvx69-875Xpe [facility] CenterComment on above:Performed By: #### CMP, BNP #### [facility] [address] [place] [address] Dr. Good MontielPotassium [Moles/Vol]3.6 mmol/LNormal3.5-5.1The [facility] Comment on above:Performed By: #### CMP, BNP #### [facility] [address] [place] [address] Dr. Good MontielProtein [Mass/Vol]6.6 g/dLNormal6.4-8.2The [facility] Comment on above:Performed By: #### CMP, BNP #### [facility] [address] [address] [address] Good MontielSodium [Moles/Vol]127 mmol/LCritically vjs079-971Tvb [facility] CenterComment on above:Performed By: #### CMP, BNP #### [facility] [address] [address] [address] Good MontielUrea nitrogen [Mass/Vol]19.0 mg/dLCritically high7.0-18.0The [facility] Medical CenterComment on above:Performed By: #### CMP, BNP #### [facility] [address] [address] [address] Good Garduno nitrogen/Creatinine [Mass ratio]23.8 mg/mgNoMarietta Osteopathic ClinicComment on above:Performed By: #### CMP, BNP #### [facility] [address] [place] [address] Dr. Good MontielXR CHEST 1 Von 31-39-9268UL CHEST 1 VCHEST X-RAY HISTORY: Chest pain COMPARISON: 06/05/2021 TECHNIQUE: [...] Electronically authenticated by: KETAN ALVAREZ Date: 2021-11-24 00:21[facility] LUNG CANCER SCREENINGon 20-88-6236EM LUNG CANCER SCREENING EXAMINATION: CT LUNG CANCER [...] Electronically authenticated by: ARIAN VARGAS Date: 2021-11-10 10:[address] [place] [address] MAMM SCREEN 3D [place] CADon 95-98-6454EL MAMM SCREEN 3D [place] CAD Patient: NUVIA MARTIN Exam Date: 11/10/2021 : 1945 Gender:F Ordering : DR LATONYA GE Admission #: [id number] Family : Order #: [id number] CLICK HERE TO VIEW EXAM RADIOLOGY REPORT [...] breast cancer at age 62. LOCATION: [facility] BREAST COMPOSITION: Scattered areas fibroglandular density. FINDINGS: [...] by: Arian Vargas MD on 11/12/2021 at 08:03[facility] HospitalXR DEXA BONE DENSITYon 41-63-1913WD DEXA BONE DENSITYEXAMINATION: XR DEXA BONE DENSITY, 11/10/2021 8:59 AM EDT HISTORY: [...] Electronically authenticated by: ARIAN VARGAS Date: 2021-11-10 17:06[facility] HospitalComprehensive Metabolic Panelon 99-34-1875Hkcmxci [Mass/Vol]3.9 g/dLNormal3.6-5.1[facility] SpecialistComment on above:Performed By: #### CMP #### [facility] [address] [place], [place] [id number]/Globulin [Mass ratio]1.4 {ratio}Normal1.0-2.5Nortdignity health east valley rehabilitation hospitaln [facility] SpecialistComment on above:Performed By: #### CMP #### [facility] [address] [place], [place] [id number] [Catalytic activity/Vol]51 U/TIjwhvc49-553Jlpdujsx [facility] SpecialistComment on above:Performed By: #### CMP #### [facility] [address] [place], [place] [id number] [Catalytic activity/Vol]15 U/LNormal6-33NoWadsworth-Rittman Hospital SpecialistComment on above:Result Comment: 04/15/2021 Female reference range changed.Performed By: #### CMP #### [facility] [address] [place], [place] [id number] gap [Moles/Vol]18 mmol/AIknzmb11-97Cibcbyna [facility] SpecialistComment on above:Result Comment: Effective 05/21/2019 reference range changed.Performed By: #### CMP #### [facility] [address] [place], [place] [id number] [Catalytic activity/Vol]20 U/LNormal9-34NortSelect Medical [facility] SpecialistComment on above:Performed By: #### CMP #### [facility] [address] [place], [place] [id number]/CREA18 RatioNormal6-22NoWadsworth-Rittman Hospital Specialist Comment on above:Performed By: #### CMP #### [facility] [address] [place], [place] [id number] [Mass/Vol]9.8 mg/dLNormal8.6-10.2[facility] SpecialistComment on above:Performed By: #### CMP #### [facility] [address] [place], [place] [id number] [Moles/Vol]88 mmol/YAro35-707Hgukmfqs [facility] SpecialistComment on above:Performed By: #### CMP #### [facility] [address] [place], [place] [id number] [Moles/Vol]23 mmol/TJvcqul36-55Ybtukvga [facility] SpecialistComment on above:Performed By: #### CMP #### [facility] [address] [place], [place] [id number] [Mass/Vol]0.9 mg/dLNormal0.6-1.4NortSelect Medical [facility] SpecialistComment on above:Performed By: #### CMP #### [facility] [address] [place], [place] [id number] mL/min/1.12h6Rmrrek>60Nortdignity health east valley rehabilitation hospitaln [facility] SpecialistComment on above:Performed By: #### CMP #### [facility] [address] [place], [place] [id number] mL/min/1.95l7Lhjewv>60NortSelect Medical [facility] SpecialistComment on above:Performed By: #### CMP #### [facility] [address] [place], [place] [id number] (S) [Mass/Vol]2.7 g/dLNormal1.9-3.7NoWadsworth-Rittman Hospital SpecialistComment on above:Performed By: #### CMP #### [facility] [address] [place], [place] [id number] [Mass/Vol]151 mg/gGAxmo00-92Pugayxkx [facility] SpecialistComment on above:Result Comment: For FASTING Glucose --- ADA reference ranges: Normal 65-99 mg/dl Prediabetes 100-125 Diabetes >/= 126Performed By: #### CMP #### [facility] [address] [place], [place] [id number] [Moles/Vol]4.5 mmol/LNormal3.5-5.5NoWadsworth-Rittman Hospital SpecialistComment on above:Performed By: #### CMP #### [facility] [address], [place] [id number] [Mass/Vol]6.6 g/dLNormal6.1-8.1[facility] SpecialistComment on above:Performed By: #### CMP #### [facility] [address] [place], [place] [id number] [Moles/Vol]125 mmol/LIyi533-560Ocewtjye [place] [facility] SpecialistComment on above:Performed By: #### CMP #### [facility] [address] [place], [place] [id number]<0.3NormalNoWadsworth-Rittman Hospital SpecialistComment on above:Performed By: #### CMP #### [facility] [address] [place], [place] [id number] nitrogen [Mass/Vol]16 mg/dLNormal7-25NortSelect Medical [facility], Edwin Shaw SpecialistComment on above:Performed By: #### CMP #### [facility] [address] [place], [place] [id number] B6on 41-40-6958Eulpplg B650.1 ug/LCritically high 2.0-32.8The [facility] CenterComment on above:Result Comment: Effective August 17, 2021 Vitamin B6 reference interval will be changing to: 3.4 - 65.2 ug/L Deficiency: < 3.4 Marginal: 3.4 - 5.1 Adequate: > 5.1Performed By: #### VITAB6 ####[facility] [address] [address]Dr. Good MontielMETHYLMALONIC ACID (MMA)on 87-37-0024Tophmywobgned Acid, Fukxs710 nmol/LNormal0-378[facility] Comment on above:Performed By: #### MMA2 #### [facility] [address] [address] [address] Good MontielIMMUNOFIX ELEC, PROTEIN ELEC URINEon 40-33-9394Vizehpi, U55.3 % NormalThe [facility] Medical CenterComment on above:Performed By: #### ANNIKA CMADM #### [facility] [address] [address] [address] Good MontielMwdjtTbjmu-7-Usvyxbau, U3.9 %NormalThe [facility] CenterComment on above:Performed By: #### ANNIKA, CMADM #### [facility] [address] [address] [address] Good MontielCycqlIsmqw-5-Yokiuvxk, U6.7 %NormalThe [facility] CenterComment on above:Performed By: #### ANNIKA, CMADM #### [facility] [address] [address] [address] Good MontielBeta Globulin, U12.9 %NormalThe [facility] CenterComment on above:Performed By: #### ANNIKA, CMADM #### [facility] [address] [address] [address] Good MontielGamma Globulin, U21.1 %NormalThe [facility] CenterComment on above:Performed By: #### CMP, CMADM #### [facility] [address] [place] [address] Dr. Good MontielImmunofixation Result, UrineComment:NormalWilson [facility] Comment on above:Result Comment: Presence of monoclonal protein is unclear at this time. Suggest repeat in 3 to 6 months if clinically indicated.Performed By: #### CMP, CMADM #### [facility] [address] [place] [address] Dr. Good MontielM-Brooks, %Not ObservedNormalNot ObservedWilson Street Hospital Comment on above:Performed By: #### CMP, CMADM #### [facility] [address] [place] [address] Dr. Good MontielNote:CommentNormalThe [facility] Medical CenterComment on above:Result Comment: Protein electrophoresis scan will follow via computer, mail, or abstracter delivery.Performed By: #### CMP, CMADM #### [facility] [address] [place] [address] Dr. [address] Mont[address]PDF[address] HospitalComment on above:Performed By: #### CMP, CMADM #### [facility] [address] [place] [address] Dr. Good MontielProtein (U) [Mass/Vol]12.2 mg/dLNormalNot Estab.Wilson Street HospitalComment on above:Performed By: #### CMP, CMADM #### [facility] [address] [place] [address] Dr. Good MontielWEST NILE VIRUS AB (IGG AND IGM)on 51-46-2235Cxdt Nile Virus, IgG NegativeNormalNegativeWilson Street HospitalComment on above:Result Comment: No detectable West Nile Virus IgG Antibody. If a recent infection is suspected, another specimen should be submitted for testing within 7-14 days.Performed By: #### CMP, CMADM #### [facility] [address] [place] [address] Dr. Good MontielWest Nile Virus, IgMNegativeNormalNegativeWilson [address] [facility] Comment on above:Result Comment: No detectable West Nile Virus IgM Antibody. If a recent infection is suspected, another specimen should be submitted for testing within 7-14 days.Performed By: #### CMP, CMADM #### [facility] [address] [address] [address] Good Goncalves EIA W/REFLEX 5 BIOMARKERSon 60-50-1568HFY DirectNegative NormalNegativeThe [facility] Medical CenterComment on above:Performed By: #### ANARF ####[facility] [address] [address]DrSmooth MontielC-REACTIVE PROTEINS (HS)on 11-20-2653P-Reactive Protein, Cardiac0.55 mg/LNormal0.00-3.00The [facility] CenterComment on above:Result Comment: Relative Risk for Future Cardiovascular Event Low <1.00 Average 1.00 - 3.00 High >3.00Performed By: #### CRPHS ####[facility] I[address] [place], [place] [address]Dr. Good MontielHOMOCYSTEINEon 08-13-2021 Homocyst(e)ine, Nzmnsa27.3 umol/LNormal0.0-19.2The [facility] HospitalComment on above:Performed By: #### HOMCY #### [facility] [address] [place] [address] Dr. Good MontielIMMUNOFIXATION ELEC, PROTEIN ELECon 46-82-0526Pgnemyj [Mass/Vol] 3.7 g/dLNormal2.9-4.4The [facility] CenterComment on above:Performed By: #### MMA2 #### [facility] [address] [place] [address] Dr. Good MontielAlbumin/Globulin [Mass ratio]1.1 {ratio}Normal0.7-1.7The [facility] Medical CenterComment on above:Performed By: #### MMA2 #### [facility] [address] [place] [address] Dr. Good MontielUghcbEhvdg-0-Buwdyilm7.2 g/dLNormal0.0-0.4The [facility] CenterComment on above:Performed By: #### MMA2 #### [facility] [address] [place] [address] Dr. Good MontielVknopHqzab-1-Eqvznqry1.9 g/dLNormal0.4-1.0The [facility] CenterComment on above:Performed By: #### MMA2 #### [facility] [address] [place] [address] Dr. Good MontielBeta Globulin1.2 g/dLNormal0.7-1.3The [facility] CenterComment on above:Performed By: #### MMA2 #### [facility] [address] [place] [address] Dr. Good MontielGamma Globulin1.2 g/dLNormal0.4-1.8The [facility] CenterComment on above:Performed By: #### MMA2 #### [facility] [address] [place] [address] Dr. Good MontielGlobulin (S) [Mass/Vol]3.4 g/dLNormal2.2-3.9The [facility] Comment on above:Performed By: #### MMA2 #### [facility] [address] [place] [address] Dr. Good MontielImmunofixation Result, SerumComment:NormalThe [facility] Comment on above:Result Comment: Presence of monoclonal protein is unclear at this time. Suggest repeat in 3 to 6 months if clinically indicated.Performed By: #### MMA2 #### [facility] [address] [place] [address] Dr. Good MontielImmunoglobulin A, Qn, Sfwvs743 mg/tXXzjxlw89-402Pop [facility] CenterComment on above:Performed By: #### MMA2 #### [facility] [address] [place] [address] Dr. Good MontielImmunoglobulin G, Qn, Grhor6779 mg/oYPtyplv768-4710Nmn [facility] CenterComment on above:Performed By: #### MMA2 #### [facility] [address] [place] [address] Dr. Good MontielImmunoglobulin M, Qn, Ltyva460 mg/gEJcczhk43-781Vow [facility] CenterComment on above:Performed By: #### MMA2 #### [facility] [address] [address] [address] Good MontielM-SpikeComment:NormalNot ObservedThe [facility] on above:Result Comment: ASYMMETRICAL GAMMAPerformed By: #### MMA2 #### [facility] [address] [place] [address] Dr. Good MontielPDF.NormalThe [facility] Medical CenterComment on above:Performed By: #### MMA2 #### [facility] [address] [address] [address] Good MontielPlease note:CommentNormalThe [facility] Medical CenterComment on above: Result Comment: Protein electrophoresis scan will follow via computer, mail, or abstracter delivery.Performed By: #### MMA2 #### [facility] [address] [place] [address] Dr. Good MontielProtein [Mass/Vol]7.1 g/dLNormal6.0-8.5The [facility] Comment on above:Performed By: #### MMA2 #### [facility] [address] [place] [address] Dr. Good Diamond DISEASE AB EIA W REFLEXon 66-25-1271Xpwb Total Antibody,EIA NegativeNormalNegativeThe [facility] Medical CenterComcorewell health [facility] on above:Result Comment: Lyme Antibody Negative No laboratory evidence of infection with B. burgdorferi (Lyme disease). Negative results may occur in patients recently infected (greater than or equal to 14 days) with B. burgdorferi. If recent infection is suspected, repeat testing on a new sample collected in 7 to 14 days is recommended.Performed By: #### LYMA ####[facility] [address] [address]Dr. Good MontielRHEUMATOID FACTORon 53-21-4986JU Latex Turbid.10.1 IU/mLNormal<14.0The [facility] CenterComcorewell health blodgett hospital on above: Performed By: #### CMP, CMADM #### [facility] [address] [place] [address] Dr. Good MontielRPR QUANTon 32-23-6385Cmaiv Plasma Reagin, QuantNon-Reactive NormalNonRea<1:1The [facility] on above:Result Comment: Please Note: This test does not meet current guidelines for screening and diagnosis of syphilis. This test is intended for following treatment response in patients being treated for syphilis infection. To screen for syphilis infection, a reflex cascade that includes both RPR and a treponema-specific assay should be utilized, such as Treponema pallidum (Syphilis) Screening [place] (083349) or Rapid Plasma Reagin (RPR) Test With Reflex to Quantitative RPR and Confirmatory Treponema pallidum Antibodies (420591).Performed By: #### CMP CMADM #### [facility] [address] [place] [address] Dr. Good Castillo T4on 82-40-2884Ipcw T4 [Mass/Vol]1.03 ng/dLNormal0.78-2.19 The [facility] Medical CenterComment on above:Performed By: #### B12FOL, FT4 ####[facility] [address] [place], [place] [address]DrSmooth MontielSED RATE WESTERGRENon 09-45-7312CWV RATE17 mm/hrNormal<=30The [facility] Medical CenterComment on above:Performed By: #### DOUGLAS ROBLERODM #### [facility] [address] [place] [address] Dr. Good ParryHobee 90-77-5490VAJ3.737 uIU/mLNormal0.470-4.680The [facility] on above:Performed By: #### TSH ####[facility] R[address] [place], [place] [address]DrJanna ParryH RANGESEE BELOWNormalThMemorial Health SystemComment on above:Result Comment: <0.34 UIU/ml HYPERTHYROID 0.34-5.60 UIU/ml EUTHYROID >5.60 UIU/ml HYPOTHYROIDPerformed By: #### TSH ####[facility] [address] [place], [place] [address]DrJanna HickeyT B12 AND FOLATEon 85-61-3687Lnzymkgza (Vitamin B12) [Mass/Vol]741.0 pg/gMLdbfur667.0-931.0The [facility] CenterComment on above: Performed By: #### B12TAMMY FT4 ####[facility] Xlyflbgpim[address] [place], [place] [address]Dr. Yilan ChangFOLATE>20.00Normal>=2.76The [facility] Medical CenterComment on above:Performed By: #### B12TAMMY FT4 ####[facility] Eepniewezn[address] [place], [place] [address]Dr. Yilan ChangCBC AUTO DIFF on 23-49-2140ZYIJ #0.1 103/ulNormal0.0-0.1The [facility] CenterComment on above: Performed By: #### CBC ####[facility] Rmynnipkty[address] [place], [place] [address]Dr.Yilan ChangBasophils/100 WBC (Bld)0.7 %Normal 0.2-2.0The [facility] Medical CenterComment on above:Performed By: #### CBC ####[facility] Svebveaizy[address] [place], [place] [address]Dr.Yilan ChangEO # 0.2 103/ulNormal0.0-0.7The [facility] Medical CenterComment on above:Performed By: #### CBC ####[facility] Xhdamygxlw[address] [place], [place] [address]Dr. Yilan ChangEosinophils/100 WBC (Bld)1.6 %Normal0.9-7.0The [facility] Comment on above:Performed By: #### CBC ####[facility] Nhchrtxmap[address] [place], [place] [address]Dr.Yilan ChangErythrocyte distribution width (RBC) [Ratio]18.7 %Critically high11.0-15.0The [facility] Medical CenterComment on above:Performed By: #### CBC ####[facility] Qxnprafoqv[address] [place], [place] [address]Dr.Relan ChangHematocrit (Bld) [Volume fraction]29.6 % Critically low36.0-48.0The [facility] Medical CenterComment on above:Performed By: #### CBC ####[facility] [address] [address]Dr. Good ChangHemoglobin (Bld) [Mass/Vol]9.1 g/dLCritically low12.0-16.0The [facility] CenterComment on above:Performed By: #### CBC ####[facility] [address]zjuzv[address]hk[address] [place], [place] [address]Dr.Good ChangIG #0.06 10e3/ulCritically high0.00-0.03The [facility] HospitalComment on above:Performed By: #### CBC ####[facility] Gwdydejlll[address] [place], [place] [address]Dr.Good MontielIG %0.6 %Critically high0.0-0.5The [facility] Medical CenterComment on above:Performed By: #### CBC ####[facility] Uatwyecvdd[address] [place], [place] [address]Dr.Good MontielLYMPH #2.0 103/ulNormal1.2-3.8The [facility] Medical CenterComment on above:Performed By: #### CBC ####[facility] Przttnrubq[address] [place], [place] [address]Dr.Good MontielLymphocytes/100 WBC (Bld)18.5 %Critically low20.5-60.0The [facility] CenterComment on above: Performed By: #### CBC ####[facility] [address]qkmfiepaq[address] [place], [place] [address]Dr.Good MontielMANUAL DIFF REQNONormalThe [facility] Medical CenterComment on above:Performed By: #### CBC ####[facility] Wxmzkimqsu[address] [place], [place] [address]Dr.Good MontielMCH (RBC) [Entitic mass]21.8 pgCritically low26.7-34.0The [facility] Medical CenterComment on above:Performed By: #### CBC ####[facility] Esjjpwowek[address] [place], [place] [address]Dr.Good MontielMCHC (RBC) [Mass/Vol]30.7 g/dLNormal 29.9-35.2The [facility] CenterComment on above:Performed By: #### CBC ####[facility] [address] [address]Dr. Good MontielMCV (RBC) [Entitic vol]71.0 fLCritically low81.0-99.0The [facility] Medical CenterComment on above:Performed By: #### CBC ####[facility] W[address]mlwlp[address] [place], [place] [address]Dr.Good MontielMONO #0.8 103/ulNormal0.3-0.8The [facility] Medical CenterComment on above:Performed By: #### CBC ####[facility] Drygkrjifj[address] [place], [place] [address]Dr. Good MontielMonocytes/100 WBC (Bld)7.0 %Normal1.7-12.0The [facility] Comment on above:Performed By: #### CBC ####[facility] Zfetmykryj[address] [place], [place] [address]Dr.Good MontielNEUT #7.6 103/ulCritically high1.4-6.5The [facility] CenterComment on above:Performed By: #### CBC ####[facility] Mjmxiqsvaa[address] [place], [place] [address]Dr. Good MontielNeutrophils/100 WBC (Bld)71.6 %Xxbuix29.0-75.0The [facility] Comment on above:Performed By: #### CBC ####[facility] Lcedmwenby[address] [place], [place] [address]Dr.Good MontielPlatelet mean volume (Bld) [Entitic vol]8.4 fLCritically low9.5-13.5The [facility] CenterComment on above: Performed By: #### CBC ####[facility] Tnrvbxvmog[address] [place], [place] [address]Dr.Relan RtyubWFJ179 103/xmHeljym271-337Yfc [facility] CenterComment on above:Performed By: #### CBC ####[facility] Ndjrcgfiqt[address] [place], [place] [address]Dr.Good MontielRBC4.17 106/ul Critically low4.20-5.40[address] HospitalComment on above:Performed By: #### CBC ####[facility] [address] [address]Dr. Good RbftdZRK48.7 103/ulNormal4.0-11.0The [facility] CenterComment on above: Performed By: #### CBC ####[facility] Yapchghmiz[address] [place], [place] [address]Dr.Good ChangCRPon 02-57-8339NGS [Mass/Vol]mg/LNormal <=1.0The [facility] CenterComment on above:Performed By: #### MMA2 #### [facility] [address] [address] [address] Good Rivera URINE PROFILEon 86-12-6133Tfcenruqa Ql (U)NegativeNormal NEGATIVEWilson Street HospitalComment on above:Performed By: #### ERUR ####[facility] Ugbzvhxwrp[address] [place], [place] [address]Dr. Good ChangClarity (U)CLEARNormalCLEARWilson Street HospitalComment on above: Performed By: #### ERUR ####[facility] Cdrcvizthq[address] [place], [place] [address]Dr. Good ChangColor (U)YELLOWNormalYELLOWWilson Street HospitalComment on above:Performed By: #### ERUR ####[facility] Kurzzoykjf[address] [place], [place] [address]Dr. Good Redman micrscopic examination will be performed if indicated.NormalThe [facility] Medical CenterComment on above:Performed By: #### ERUR ####[facility] [address]knczwdj[address] [place], [place] [address]Dr. Good ChangGlucose Ql (U) NegativeNormalNEGATIVEWilson Street HospitalComment on above:Performed By: #### ERUR ####[facility] Cljajqbznp[address] [place], [place] [address]Dr. Good ChangHemoglobin Ql (U)NegativeNormalNEGATIVEMercy Health West Hospital on above:Performed By: #### ERUR ####[facility] [address] [address]Dr. Yilan ChangKetones Ql (U)NegativeNormal NEGATIVEThe [facility] HospitalComment on above:Performed By: #### ERUR ####[facility] Icolqjjyux[address] [place], [place] [address]Dr. Yilan ChangLEUKOCYTESNegativeNormalNEGATIVEThe [facility] HospitalComment on above:Performed By: #### ERUR ####[facility] S[address]odkwy[address] [place], [place] [address]Dr. Yilan ChangNitrite Ql (U)NegativeNormalNEGATIVEThe [facility] HospitalComment on above:Performed By: #### ERUR ####[facility] Xuublplezn[address] [place], [place] [address]Dr. Yilan ChangpH (U)6.5 [pH]Normal5-9The [facility] CenterComment on above:Performed By: #### ERUR ####[facility] Dptzdglgbn[address] [place], [place] [address]Dr. Yilan ChangSPEC GRAVITY1.890Hmqezw6.005-<=1.025The [facility] CenterComment on above:Performed By: #### ERUR ####[facility] [address]lsxcoqzfp[address] [place], [place] [address]Dr. Yilan ChangUA PROTEINNegativeNormalNEGATIVE/ TRACE The [facility] HospitalComment on above:Performed By: #### ERUR ####[facility] Z[address]ccdlquqf[address] [place], [place] [address]Dr. Yilan ChangUR MICRO INDNOT INDICATEDNormalThe [facility] HospitalComment on above:Performed By: #### ERUR ####[facility] Bmrlnmawjs[address] [place], [place] [address]Dr. Yilan ChangUrobilinogen Qn (U)0.2 {Momo'U}/dLNormal0.2 - 1.0The [facility] HospitalComment on above:Performed By: #### ERUR ####[facility] Nujsrljsru[address] [place], [place] [address]Dr. Yilan ChangLACTATE/LACTIC ACIDon 40-50-7534Xlwdlbf [Moles/Vol]1.9 mmol/LNormal0.7-2.0The [facility] CenterComment on above:Performed By: #### LACT ####[facility] [address] [address]Dr. Good MontielPROF 14(COMP METB)on 13-53-9246Hnkzmgp [Mass/Vol]3.0 g/dLCritically low3.5-5.0The [facility] CenterComment on above:Performed By: #### MMA2 #### [facility] [address] [address] [address] Good MontielAlbumin/Globulin [Mass ratio]0.9 {ratio}NormalThe [facility] CenterComment on above:Performed By: #### MMA2 #### [facility] [address] [place] [address] Dr. Good CruzP [Catalytic activity/Vol]36 U/LCritically gjk64-004Ajp [facility] CenterComment on above:Performed By: #### MMA2 #### [facility] [address] [address] [address] Good Miramontes [Catalytic activity/Vol]26 U/LNormal9-52The [facility] Comment on above:Performed By: #### MMA2 #### [facility] [address] [address] [address] Good Ríos gap [Moles/Vol]12.2 mmol/LNormalThe [facility] Comment on above:Performed By: #### MMA2 #### [facility] [address] [address] [address] Good Vaughan [Catalytic activity/Vol]23 U/ADytcwc60-10Btk [facility] CenterComment on above:Performed By: #### MMA2 #### [facility] [address] [address] [address] Good MontielBilirubin [Mass/Vol]0.4 mg/dLNormal0.2-1.3The [facility] Comment on above:Performed By: #### MMA2 #### [facility] [address] [address] [address] Good MontielCalcium [Mass/Vol]8.5 mg/dLNormal8.4-10.2The [facility] Comment on above:Performed By: #### MMA2 #### [facility] [address] [address] [address] Good MontielChloride [Moles/Vol]93 mmol/LCritically ybh44-291Zpk [facility] CenterComment on above:Performed By: #### MMA2 #### [facility] [address] [address] [address] Good MontielCO2 [Moles/Vol]27.6 mmol/KAmwmxr70.0-30.0The [facility] Comment on above:Performed By: #### MMA2 #### [facility] [address] [place] [address] Dr. Good MontielCreatinine [Mass/Vol]0.78 mg/dLNormal0.52-1.04The [facility] CenterComment on above:Performed By: #### MMA2 #### [facility] [address] [address] [address] Good FortuneGFR-AF COLOMBIAN>60Normal>=60The [facility] CenterComment on above:Performed By: #### MMA2 #### [facility] [address] [address] [address] Good FortuneGFR-NON AF COLOMBIAN>60Normal>=60The [facility] CenterComment on above:Performed By: #### MMA2 #### [facility] [address] [address] [address] Good MontielGlobulin (S) [Mass/Vol]3.2 g/dLNormalThe [facility] CenterComment on above:Performed By: #### MMA2 #### [facility] [address] [address] [address] Good MontielGlucose [Mass/Vol]111 mg/dLCritically ddok01-390Fkn [facility] CenterComment on above:Performed By: #### MMA2 #### [facility] [address] [address] [address] Good MontielPotassium [Moles/Vol]3.8 mmol/LNormal3.4-5.0The [facility] Comment on above:Performed By: #### MMA2 #### [facility] [address] [address] [address] Good MontielProtein [Mass/Vol]6.2 g/dLNormal6.1-8.2The [facility] Comment on above:Performed By: #### MMA2 #### [facility] [address] [address] [address] Good MontielSodium [Moles/Vol]129 mmol/LCritically rxf512-892Qkh [facility] CenterComment on above:Performed By: #### MMA2 #### [facility] [address] [place] [address] Dr. Good MontielUrea nitrogen [Mass/Vol]17.0 mg/dLNormal7.0-17.0The [facility] CenterComment on above:Performed By: #### MMA2 #### [facility] [address] [place] [address] Dr. Good MontielUrea nitrogen/Creatinine [Mass ratio]21.8 mg/mgNormalThe [facility] CenterComment on above:Performed By: #### MMA2 #### [facility] [address] [place] [address] Dr. Good Velázquez, HIGH SENSITIVITYon 25-12-9608FZIWEP6.8 pg/mLNormal 4.0-35.5The [facility] CenterComment on above:Result Comment: CUT-OFF POINTS HAVE BEEN ESTABLISHED BASED ON THE FOURTH UNIVERSAL DEFINITIONS OF MYOCARDIAL INFARCTION. THE UPPER REFERENCE LIMIT (URL) OF TROPONIN, DEFINED THE 99TH PERCENTILE OF cTnI DISTRIBUTION IN A REFERENCE POPULATION, HAS BEEN CONFIRMED THE DECISION THRESHOLD FOR CA DIAGNOSIS.Performed By: #### MMA2 #### [facility] [address] [place] [address] Dr. Good Adams 66-68-6099HJL5.927 uIU/mLCritically high0.470-4.680The [facility] CenterComment on above:Performed By: #### MMA2 #### [facility] [address] [place] [address] Dr. Good Baig [facility] HospitalComment on above: Result Comment: <0.34 UIU/ml HYPERTHYROID 0.34-5.60 UIU/ml EUTHYROID >5.60 UIU/ml HYPOTHYROIDPerformed By: #### MMA2 #### [facility] [address] [place] [address] Dr. Good Huang AUTO DIFFon [id number] #0.1 103/ulNormal0.0-0.1The [facility] CenterComment on above:Performed By: #### CMP, CMADM #### [facility] [address] [place] [address] Dr. Good MontielBasophils/100 WBC (Bld)0.7 %Normal0.2-2.0[facility] Comment on above:Performed By: #### CMP, CMADM #### [facility] [address] [place] [address] Dr. Good Britt #0.2 103/ulNormal0.0-0.7The [facility] CenterComment on above: Performed By: #### CMP, CMADM #### [facility] [address] [place] [address] Dr. Good Fortuneosinophils/100 WBC (Bld)2.5 %Normal0.9-7.0[facility] Comment on above:Performed By: #### CMP, CMADM #### [facility] [address] [place] [address] Dr. Good Fortunerythrocyte distribution width (RBC) [Ratio]18.5 %Critically high 11.0-15.0The [facility] CenterComment on above:Performed By: #### CMP, CMADM #### [facility] [address] [place] [address] Dr. Good MontielHematocrit (Bld) [Volume fraction]30.1 %Critically low36.0-48.0 The [facility] CenterComment on above:Performed By: #### CMP, CMADM #### [facility] [address] [place] [address] Dr. Good MontielHemoglobin (Bld) [Mass/Vol]9.3 g/dLCritically low12.0-16.0The [facility] CenterComment on above:Performed By: #### CMP, CMADM #### [facility] [address] [place] [address] Dr. Good Jones #0.06 10e3/ulCritically high0.00-0.03The [facility] Comment on above:Performed By: #### CMP, CMADM #### [facility] [address] [place] [address] Dr. Good Jones %0.7 %Critically high0.0-0.5The [facility] CenterComment on above:Performed By: #### CMP, CMADM #### [facility] [address] [place] [address] Dr. Good Angeles #2.0 103/ulNormal1.2-3.8The [facility] CenterComment on above:Performed By: #### CMP, CMADM #### [facility] [address] [place] [address] Dr. Good Patelhocytes/100 WBC (Bld)23.0 %Hskhhy06.5-60.0The [facility] CenterComment on above:Performed By: #### CMP, CMADM #### [facility] [address] [place] [address] Dr. Good AcostaUAL DIFF REQNONormalThe [facility] CenterComment on above: Performed By: #### CMP, CMADM #### [facility] [address] [place] [address] Dr. Good Schafer (RBC) [Entitic mass]21.9 pgCritically low26.7-34.0The [facility] CenterComment on above:Performed By: #### CMP, CMADM #### [facility] [address] [place] [address] Dr. Good MorinHC (RBC) [Mass/Vol]30.9 g/oODyjaho23.9-35.2The [facility] CenterComment on above:Performed By: #### CMP, CMADM #### [facility] [address] [place] [address] Dr. Good MorinV (RBC) [Entitic vol]70.8 fLCritically low81.0-99.0The [facility] CenterComment on above:Performed By: #### CMP, CMADM #### [facility] [address] [address] [address] Good Iniguez #1.0 103/ulCritically high0.3-0.8The [facility] Comment on above:Performed By: #### CMP, CMADM #### [facility] [address] [place] [address] Dr. Good Laytonocytes/100 WBC (Bld)11.3 %Normal1.7-12.0The [facility] Comment on above:Performed By: #### CMP, CMADM #### [facility] [address] [place] [address] Dr. Good Godoy #5.2 103/ulNormal1.4-6.5The [facility] CenterComment on above:Performed By: #### CMP, CMADM #### [facility] [address] [place] [address] Dr. Good Jainutrophils/100 WBC (Bld)61.8 %Dlmbkr97.0-75.0The [facility] CenterComment on above:Performed By: #### CMP, CMADM #### [facility] [address] [place] [address] Dr. Good Goldsteinlet mean volume (Bld) [Entitic vol]8.5 fLCritically low 9.5-13.5The [facility] CenterComment on above:Performed By: #### CMP, CMADM #### [facility] [address] [place] [address] Dr. Good LopezT455 103/ulCritically toee887-309Lxo Mihai HospitalComment on above:Performed By: #### CMP, CMADM #### [facility] [address] [address] [address] Good MontielRBC4.25 106/ulNormal4.20-5.40The [facility] CenterComment on above:Performed By: #### CMP, CMADM #### [facility] [address] [address] [address] Good MontielWBC8.5 103/ulNormal4.0-11.0The [facility] CenterComment on above: Performed By: #### CMP, CMADM #### [facility] [address] [place] [address] Dr. Good MontielATRIUM HEALTH NAV[facility]ENT BALDW[facility] GLUCOSEon 18-91-5069Gzfnqzt [Mass/Vol]164 mg/dL Critically gifd70-287Eaj [facility] CenterComment on above:Performed By: #### CMP, CMADM #### [facility] [address] [place] [address] Dr. Good Nunes 14(COMP METB)on 20-79-3213Wanayos [Mass/Vol]3.2 g/dL Critically low3.5-5.0The [facility] CenterComment on above:Performed By: #### MMA2 #### [facility] [address] [place] [address] Dr. Good MontielAlbumin/Globulin [Mass ratio]1.1 {ratio}NormalThe [facility] CenterComment on above:Performed By: #### MMA2 #### [facility] [address] [place] [address] Dr. Godo Hawkins [Catalytic activity/Vol]37 U/LCritically mad69-411Ejx [facility] CenterComment on above:Performed By: #### MMA2 #### [facility] [address] [place] [address] Dr. Good Miramontes [Catalytic activity/Vol]26 U/LNormal9-52The [facility] Comment on above:Performed By: #### MMA2 #### [facility] [address] [place] [address] Dr. Good Ríos gap [Moles/Vol]11.5 mmol/LNormalWilson [address] [facility] Comment on above:Performed By: #### MMA2 #### [facility] [address] [place] [address] Dr. Good MontielAST [Catalytic activity/Vol]25 U/EXlesdq67-56Wmp [facility] CenterComment on above:Performed By: #### MMA2 #### [facility] [address] [place] [address] Dr. Good MontielBilirubin [Mass/Vol]0.4 mg/dLNormal0.2-1.3The [facility] Comment on above:Performed By: #### MMA2 #### [facility] [address] [place] [address] Dr. Good MontielCalcium [Mass/Vol]8.8 mg/dLNormal8.4-10.2[facility] Comment on above:Performed By: #### MMA2 #### [facility] [address] [place] [address] Dr. Good MontielChloride [Moles/Vol]93 mmol/LCritically nxv52-513Yud [facility] CenterComment on above:Performed By: #### MMA2 #### [facility] [address] [place] [address] Dr. Good MontielCO2 [Moles/Vol]28.2 mmol/FApisbb97.0-30.0[facility] Comment on above:Performed By: #### MMA2 #### [facility] [address] [place] [address] Dr. Good MontielCreatinine [Mass/Vol]0.57 mg/dLNormal0.52-1.04The [facility] CenterComment on above:Performed By: #### MMA2 #### [facility] [address] [place] [address] Dr. Good Roberson-AF COLOMBIAN>60Normal>=60The [facility] CenterComment on above:Performed By: #### MMA2 #### [facility] [address] [place] [address] Dr. Yilan ChangEGFR-NON AF COLOMBIAN>60Normal>=60The [facility] CenterComment on above:Performed By: #### MMA2 #### [facility] [address] [place] [address] Dr. Good MontielGlobulin (S) [Mass/Vol]3.0 g/dLNormMercy Health St. Anne HospitalComment on above:Performed By: #### MMA2 #### [facility] [address] [place] [address] Dr. Good MontielGlucose [Mass/Vol]106 mg/aTRwckbr53-197Onh [facility] Comment on above:Performed By: #### MMA2 #### [facility] [address] [place] [address] Dr. Good MontielPotassium [Moles/Vol]3.7 mmol/LNormal3.4-5.0The [facility] Comment on above:Performed By: #### MMA2 #### [facility] [address] [place] [address] Dr. Good MontielProtein [Mass/Vol]6.2 g/dLNormal6.1-8.2The [facility] Comment on above:Performed By: #### MMA2 #### [facility] [address] [place] [address] Dr. Good MontielSodium [Moles/Vol]129 mmol/LCritically dvl327-212Nxm [facility] CenterComment on above:Performed By: #### MMA2 #### [facility] [address] [place] [address] Dr. Good MontielUrea nitrogen [Mass/Vol]14.0 mg/dLNormal7.0-17.0The [facility] CenterComment on above:Performed By: #### MMA2 #### [facility] [address] [place] [address] Dr. Good Garduno nitrogen/Creatinine [Mass ratio]24.6 mg/mgNormalThMemorial Health SystemComment on above:Performed By: #### MMA2 #### [facility] [address] [place] [address] Dr. Good Carpenter LOGAN ADMITon 92-23-5354HF [Catalytic activity/Vol]55 U/L Sgooov50-516Xda [facility] CenterComment on above:Performed By: #### CMP, CMADM #### [facility] [address] [address] [address] Good Saha.MB [Mass/Vol]2.09 ng/mLNormal<=2.37The [facility] Comment on above:Performed By: #### CMP, CMADM #### [facility] [address] [address] [address] Good CorriganTROP10.2 pg/mLNormal4.0-35.5The [facility] CenterComment on above:Result Comment: CUT-OFF POINTS HAVE BEEN ESTABLISHED BASED ON THE FOURTH UNIVERSAL DEFINITIONS OF MYOCARDIAL INFARCTION. THE UPPER REFERENCE LIMIT (URL) OF TROPONIN, DEFINED THE 99TH PERCENTILE OF cTnI DISTRIBUTION IN A REFERENCE POPULATION, HAS BEEN CONFIRMED THE DECISION THRESHOLD FOR CA DIAGNOSIS.Performed By: #### CMP, CMADM #### [facility] [address] [address] [address] Good MossO61.0 ng/mLNormal<=61.5The [facility] CenterComment on above: Performed By: #### CMP, CMADM #### [facility] [address] [address] [address] Good Huang AUTO DIFFon 26-94-7487GJUX #0.1 103/ulNormal0.0-0.1The [facility] CenterComment on above:Performed By: #### CBC ####[facility] [address] [address]Dr.Yilan MontielBasophils/100 WBC (Bld)0.8 %Normal0.2-2.0The [facility] CenterComment on above:Performed By: #### CBC ####[facility] [address] [address] ChangEO #0.2 103/ulNormal0.0-0.7The [facility] CenterComment on above:Performed By: #### CBC ####[facility] [address] [address]Dr.Good ChangEosinophils/100 WBC (Bld)2.2 %Normal 0.9-7.0The [facility] CenterComment on above:Performed By: #### CBC ####[facility] Xu[address] [place], [place] [address]Dr.Good Montiel Erythrocyte distribution width (RBC) [Ratio]18.2 %Critically high11.0-15.0The [facility] CenterComment on above:Performed By: #### CBC ####[facility] Ed[address] [place], [place] [address]Dr.Good ChangHematocrit (Bld) [Volume fraction]31.1 %Critically low36.0-48.0The [facility] CenterComment on above:Performed By: #### CBC ####[facility] Dxco[address]ch[address] [place], [place] [address]Dr.Good ChangHemoglobin (Bld) [Mass/Vol]9.6 g/dL Critically low12.0-16.0The [facility] CenterComment on above:Performed By: #### CBC ####[facility] [address] [place], [place] [address]Dr. Good ChangIG #0.07 10e3/ulCritically high0.00-0.03The [facility] CenterComment on above:Performed By: #### CBC ####[facility] Z[address] [place], [place] [address]Dr.Good ChangIG %0.9 %Critically high0.0-0.5The [facility] CenterComment on above:Performed By: #### CBC ####[facility] Avtr[address] [place], [place] [address]Dr.Good ChangLYMPH #1.3 103/ulNormal1.2-3.8The [facility] CenterComment on above:Performed By: #### CBC ####[facility] [address] [place], [place] [address]Dr. Good ChangLymphocytes/100 WBC (Bld)17.2 %Critically low20.5-60.0The [facility] HospitalComment on above:Performed By: #### CBC ####[facility] [address] [address]Dr.Good MontielMANUAL DIFF REQ NONormalThe [facility] HospitalComment on above:Performed By: #### CBC ####[facility] Cnoct[address] [place], [place] [address]Dr. Rejoo MontielH (RBC) [Entitic mass]21.8 pgCritically low26.7-34.0The [facility] HospitalComment on above:Performed By: #### CBC ####[facility] Senmhv[address]my[address] [place], [place] [address]Dr.Rejoo MontielHC (RBC) [Mass/Vol]30.9 g/bLIeeykl21.9-35.2The [facility] HospitalComment on above: Performed By: #### CBC ####[facility] [address] [place], [place] [address]Dr.Good MontielV (RBC) [Entitic vol]70.5 fLCritically low81.0-99.0The [facility] HospitalComment on above:Performed By: #### CBC ####[facility] [address] [place], [place] [address]Dr. Good MontielMONO #0.6 103/ulNormal0.3-0.8The [facility] HospitalComment on above: Performed By: #### CBC ####[facility] Byneaupoen[address] [place], [place] [address]Dr.Rejoo MontielMonocytes/100 WBC (Bld)8.3 %Normal 1.7-12.0The [facility] HospitalComment on above:Performed By: #### CBC ####[facility] [address] [place], [place] [address]Dr. Good MontielNEUT #5.3 103/ulNormal1.4-6.5The [facility] HospitalComment on above: Performed By: #### CBC ####[facility] [address] [place], [place] [address]Dr.Yilan ChangNeutrophils/100 WBC (Bld)70.6 %Normal 43.0-75.0The [facility] CenterComment on above:Performed By: #### CBC ####[facility] [address] [address]Dr. Good MontielPlatelet mean volume (Bld) [Entitic vol]8.3 fLCritically low9.5-13.5 The [facility] CenterComment on above:Performed By: #### CBC ####[facility] [address] [address]Dr.Good GynkeCHI962 103/ulCritically nsze469-950Jpb [facility] CenterComment on above:Performed By: #### CBC ####[facility] [address] [address]Dr.Good ChangRBC4.41 106/ulNormal4.20-5.40The [facility] CenterComment on above:Performed By: #### CBC ####[facility] [address] [address]Dr.Good ChangWBC7.6 103/ulNormal4.0-11.0The [facility] CenterComment on above:Performed By: #### CBC ####[facility] [address] [place], [place] [address]Dr.Good ChangCT STROKE HEAD WOon [id number] STROKE HEAD WOEXAMINATION: CT STROKE HEAD WO, 06/05/2021 8:50 AM [...] emergency department to be relayed to Dr. Aquino. Electronically authenticated by: GINGER BROOKS Date: 2021-06-05 10:30[facility] HospitalCovid-19 PCR (CVDTB)on 43-04-6280NEBO-CoV-2 (COVID-19) RNA FELECIA+probe Ql (Unsp spec)Not detectedNormalNOT DETECTEDThe [facility] Comment on above:Result Comment: When diagnostic testing is negative, the [...] for this test is supported by the [place] of Health and Human Service's declaration that circumstances exist to justify the emergency use of in vitro diagnostics for the detection and/or diagnosis of the virus that causes COVID-19. This EUA will remain in effect for the duration of the COVID-19 declaration justifying emergency of IVDs, unless it is terminated or revoked by the FDA (after which the test may no longer be used).Performed By: #### CVDTBH #### [facility] [address] [place] [address] Dr. Good FortuneCHOCARDIO M/2D COMPLETEon [id number] M/2D COMPLETE Patient: NUVIA MARTIN Exam Date: 06/05/2021 : 1945 Gender:F Ordering : DR. RHIANNON OLSON . Admission #: [id number] Family : DR WILY PRADO M.D. Order #: [id number] CLICK HERE TO VIEW EXAM ECHOCARDIOGRAM REPORT [...] Area(A4C): 18.50 cm2 Left Atrium Systolic Volume(A2C): 42559 mm3 Left Atrium Systolic Volume(A4C): 04917 mm3 Mitral Valve MV E to A [...] by: Josafat Ramírez M.D. on 06/08/2021 at 14:19[facility] HospitalGLYCOHEMOGLOBIN A1Con 08-34-7030AGZ RECOMMENDATIONADA THERAPEUTIC TARGET 6.0 - 7.0 ACTION SUGGESTED > 7.0[facility] HospitalComment on above: Performed By: #### MMA2 #### [facility] [address] [place] [address] Dr. Good MontielGlucose [Mass/Vol]131 mg/dLLima Memorial HospitalComment on above:Performed By: #### MMA2 #### [facility] [address] [place] [address] Dr. Good MontielHbA1c (Bld) [Mass fraction]6.2 %Critically high<=6.0[facility] HospitalComment on above:Performed By: #### MMA2 #### [facility] [address] [place] [address] Dr. Good MontielLIPID PROFILEon 15-76-1963PURC-HDL RATIO NORMSEE [facility] Mer[facility] HospitalComment on above:Result Comment: 3.3 - 4.4 LOW RISK 4.4 - 7.1 AVERAGE RISK 7.1 - 11.0 MODERATE RISK >11.0 HIGH RISKPerformed By: #### CMP, CMADM #### [facility] [address] [place] [address] Dr. Good MontielCholesterol [Mass/Vol]157 mg/dLNormal<=200[facility] Comment on above:Performed By: #### CMP, CMADM #### [facility] [address] [address] [address] Good MontielCholesterol in HDL [Mass/Vol]44 mg/dLLima Memorial Hospital Comment on above:Performed By: #### CMP, CMADM #### [facility] [address] [address] [address] Good MontielCholesterol in LDL [Mass/Vol]80.0 mg/dLLima Memorial HospitalComment on above:Performed By: #### CMP, CMADM #### [facility] [address] [address] [address] Good Lamestercarlos.total/Cholesterol in HDL [Mass ratio]3.6 {ratio} NormalThe [facility] CenterComment on above:Performed By: #### CMP, CMADM #### [facility] [address] [address] [address] Good Velasco NORMAL> or = 60 mg/dl - LOW CARDIOVASCULAR RISK <40 mg/dl - HIGH CARDIOVASCULAR RISKLima Memorial HospitalComment on above:Performed By: #### CMP, CMADM #### [facility] [address] [address] [address] Good North CALC NORMALSEE BELOWLima Memorial HospitalComment on above:Result Comment: <100 mg/dl OPTIMAL 100 - 129 mg/dl NEAR OR ABOVE OPTIMAL 130 - 159 mg/dl BORDERLINE HIGH 160 - 189 mg/dl HIGH >190 mg/dl VERY HIGH Performed By: #### CMP, CMADM #### [facility] [address] [address] [address] Good MontielTriglyceride [Mass/Vol]165 mg/dLCritically high<=150The [facility] CenterComment on above:Performed By: #### CMP, CMADM #### [facility] [address] [address] [address] Good RashidLDL CALC33.0 mg/dLLima Memorial HospitalComment on above: Performed By: #### CMP, CMADM #### [facility] [address] [address] [address] Good Ardon BRAIN WO CONon [id number] BRAIN WO CONEXAM: MRI BRAIN WO CON HISTORY: Transient cerebral [...] Electronically authenticated by: ALFONSO ALTMAN Date: 2021-06-05 15:08[facility] HospitalPOINT OF CARE GLUCOSEon 88-13-6033Jgmxmbm [Mass/Vol]119 mg/dL Critically aawr33-788YljWilson [address] HospitalComcorewell health blod[facility] hospital on above:Performed By: #### POCGLUC ####[facility] [address] [address]Dr. Good ChangGlucose [Mass/Vol]169 mg/dLCritically ablf00-042BdsWilson [address] HospitalComcorewell health blodgett hospital on above:Performed By: #### POCGLUC ####[facility] [address] [id number]. Good ChangGlucose [Mass/Vol]119 mg/dLCritically arwc55-340N[facility]ihai HospitalComment on above: Performed By: #### POCGLUC ####[facility] [address] [address]Dr. Good MontielPROF 14(COMP METB)on 86-56-7912Yxyatwv [Mass/Vol]3.3 g/dLCritically low3.5-5.0The [facility] CenterComment on above: Performed By: #### CMP, CMADM #### [facility] [address] [address] [address] Good MontielAlbumin/Globulin [Mass ratio]1.0 {ratio}NormalThe [facility] CenterComment on above:Performed By: #### CMP, CMADM #### [facility] [address] [address] [address] Good CruzP [Catalytic activity/Vol]40 U/WNkhwrn55-128Pkx [facility] CenterComment on above:Performed By: #### CMP, CMADM #### [facility] [address] [address] [address] Good Miramontes [Catalytic activity/Vol]23 U/LNormal9-52The [facility] Comment on above:Performed By: #### CMP, CMADM #### [facility] [address] [address] [address] Good Ríos gap [Moles/Vol]11.3 mmol/LNormalWilson Street Hospital Comment on above:Performed By: #### CMP, CMADM #### [facility] [address] [address] [address] Good Vaughan [Catalytic activity/Vol]20 U/LXhzeju45-38Oiv Wayne Hospitalment on above:Performed By: #### CMP, CMADM #### [facility] [address] [address] [address] Good MontielBilirubin [Mass/Vol]0.6 mg/dLNormal0.2-1.3TSt. Anthony's Hospital Comment on above:Performed By: #### CMP, CMADM #### [facility] [address] [address] [address] Good MontielCalcium [Mass/Vol]8.5 mg/dLNormal8.4-10.2The [facility] Comment on above:Performed By: #### CMP, CMADM #### [facility] [address] [address] [address] Good MontielChloride [Moles/Vol]90 mmol/LCritically ywc09-866Jtp [facility] CenterComment on above:Performed By: #### CMP, CMADM #### [facility] [address] [address] [address] Good MontielCO2 [Moles/Vol]28.5 mmol/UXaonoe46.0-30.0The [facility] Comment on above:Performed By: #### CMP, CMADM #### [facility] [address] [place] [address] Dr. Good MontielCreatinine [Mass/Vol]0.89 mg/dLNormal0.52-1.04The [facility] CenterComment on above:Performed By: #### CMP, CMADM #### [facility] [address] [place] [address] Dr. Good FortuneGFR-AF COLOMBIAN>60Normal>=60The [facility] CenterComment on above:Performed By: #### CMP, CMADM #### [facility] [address] [place] [address] Dr. Good FortuneGFR-NON AF COLOMBIAN>60Normal>=60The [facility] Medical CenterComment on above:Performed By: #### CMP, CMADM #### [facility] [address] [place] [address] Dr. Good MontielGlobulin (S) [Mass/Vol]3.3 g/dLNormalThe [facility] CenterComment on above:Performed By: #### CMP, CMADM #### [facility] [address] [address] [address] Good MontielGlucose [Mass/Vol]128 mg/dLCritically cjje29-981Fwg [facility] CenterComment on above:Performed By: #### CMP, CMADM #### [facility] [address] [address] [address] Good MontielPotassium [Moles/Vol]3.8 mmol/LNormal3.4-5.0The [facility] Comment on above:Performed By: #### CMP, CMADM #### [facility] [address] [place] [address] Dr. Good MontielProtein [Mass/Vol]6.6 g/dLNormal6.1-8.2The [facility] Comment on above:Performed By: #### CMP, CMADM #### [facility] [address] [place] [address] Dr. Good MontielSodium [Moles/Vol]126 mmol/LCritically zmh568-151Gqu [facility] CenterComment on above:Performed By: #### CMP, CMADM #### [facility] [address] [place] [address] Dr. Good MontielUrea nitrogen [Mass/Vol]16.0 mg/dLNormal7.0-17.0The [facility] CenterComment on above:Performed By: #### CMP, CMADM #### [facility] [address] [place] [address] Dr. Good Garduno nitrogen/Creatinine [Mass ratio]18.0 mg/mgNormalThe [facility] CenterComment on above:Performed By: #### CMP, CMADM #### [facility] [address] [place] [address] Dr. Good Portillo CAROTID ART BILon [id number] CAROTID ART BILEXAMINATION: US CAROTID ART [place] HISTORY: Transient cerebral [...] Electronically authenticated by: GINGER BROOKS Date: 2021-06-05 15:31[facility] HospitalXR CHE[facility] 1 Von 40-24-4086XR CHEST 1 VEXAMINATION: XR CHEST 1 V HISTORY: Dizziness COMPARISON: [...] Electronically authenticated by: GINGER BROOKS Date: 2021-06-05 09:36[facility] HospitalCT HEAD WO CONon [id number] HEAD WO CONEXAMINATION: CT HEAD WO CON, 06/04/2021 7:10 AM [...] Electronically authenticated by: GINGER BROOKS Date: 2021-06-04 08:06[facility] HospitalBNPon 19-18-2321Chplmcwymcn peptide B (Bld) [Mass/Vol]285.0 pg/mLNormal<=900.0The [facility] CenterComment on above:Performed By: #### CMADM, CMP, BNP ####[facility] [address] [place], [place] [address]SvSmooth Carpenter LOGAN ADMITon 85-47-3054OC [Catalytic activity/Vol]60 U/HZhrzue64-572Ihy [facility] CenterComment on above:Performed By: #### CMADM, CMP, BNP ####[facility] [address] [address]Dr. Good MontielCK.MB [Mass/Vol]2.13 ng/mLNormal<=2.37 The [facility] CenterComment on above:Performed By: #### CMADM, CMP, BNP ####[facility] [address] [address]Dr. Good MontielSwbtqVLSIXW54.8 pg/mLNormal4.0-35.5The [facility] CenterComment on above: Result Comment: CUT-OFF POINTS HAVE BEEN ESTABLISHED BASED ON THE FOURTH UNIVERSAL DEFINITIONS OF MYOCARDIAL INFARCTION. THE UPPER REFERENCE LIMIT (URL) OF TROPONIN, DEFINED THE 99TH PERCENTILE OF cTnI DISTRIBUTION IN A REFERENCE POPULATION, HAS BEEN CONFIRMED THE DECISION THRESHOLD FOR CA DIAGNOSIS.Performed By: #### CMADM, CMP, BNP ####[facility] [address] [address]Dr. Good MontielMYO62.0 ng/mL Critically high<=61.5The [facility] CenterComment on above:Performed By: #### CMADM, CMP, BNP ####[facility] [address] [place], [place] [address]Dr. Good DineshCBC AUTO DIFFon 69-10-9156FZRR #0.1 103/ulNormal0.0-0.1 The [facility] CenterComcorewell health blod[facility] on above:Performed By: #### CBC ####[facility] X[address]lt[address] [place], [place] [address]Dr.Good Montiel Basophils/100 WBC (Bld)0.8 %Normal0.2-2.0The [facility] CenterComment on above: Performed By: #### CBC ####[facility] Wgkq[address] [place], [place] [address]Dr.Good ChangEO #0.3 103/ulNormal0.0-0.7The [facility] CenterComment on above:Performed By: #### CBC ####[facility] [address] [address]Dr.Good ChangEosinophils/100 WBC (Bld)3.1 %Normal0.9-7.0The [facility] CenterComment on above:Performed By: #### CBC ####[facility] Gplzmn[address]zs[address] [place], [place] [address]Dr.Good ChangErythrocyte distribution width (RBC) [Ratio]18.4 %Critically high11.0-15.0The [facility] CenterComment on above:Performed By: #### CBC ####[facility] [address] [place], [place] [address]Dr. Good ChangHematocrit (Bld) [Volume fraction]31.8 %Critically low36.0-48.0The [facility] CenterComment on above:Performed By: #### CBC ####[facility] H[address]ynm[address] [place], [place] [address]Dr.Rejoo ChangHemoglobin (Bld) [Mass/Vol]9.8 g/dLCritically low12.0-16.0The [facility] CenterComment on above:Performed By: #### CBC ####[facility] [address] [place], [place] [address]Dr.Good ChangIG #0.09 10e3/ulCritically high0.00-0.03 The [facility] CenterComment on above:Performed By: #### CBC ####[facility] Qtbcvipsyb[address] [place], [place] [address]Dr.Good ChangIG % 1.1 %Critically high0.0-0.5The [facility] CenterComment on above:Performed By: #### CBC ####[facility] Rpmsdiv[address] [place], [place] [address]Dr.Relan ChangLYMPH #1.6 103/ulNormal1.2-3.8The [facility] CenterComment on above:Performed By: #### CBC ####[facility] Kwjcbeienm[address] [place], [place] [address]Dr.Yilan ChangLymphocytes/100 WBC (Bld)18.5 % Critically low20.5-60.0The [facility] CenterComment on above:Performed By: #### CBC ####[facility] [address] [address]Dr. Good MontielMANUAL DIFF REQNONormalThe [facility] CenterComment on above: Performed By: #### CBC ####[facility] [address] [address]Dr.Good MontielH (RBC) [Entitic mass]22.1 pg Critically low26.7-34.0The [facility] HospitalComment on above:Performed By: #### CBC ####[facility] [address]vrd[address] [place], [place] [address]Dr. Good MontielHC (RBC) [Mass/Vol]30.8 g/oJKymldx10.9-35.2The [facility] Comment on above:Performed By: #### CBC ####[facility] Vqjnfwty[address] [place], [place] [address]Dr.Good MontielV (RBC) [Entitic vol]71.6 fL Critically low81.0-99.0The [facility] CenterComment on above:Performed By: #### CBC ####[facility] Rfmhrbcglq[address] [place], [place] [address]Dr. Good LaytonO #0.7 103/ulNormal0.3-0.8The [facility] CenterComment on above: Performed By: #### CBC ####[facility] Hkpb[address]akih[address] [place], [place] [address]Dr.Good MontielMonocytes/100 WBC (Bld)8.8 %Normal 1.7-12.0The [facility] CenterComment on above:Performed By: #### CBC ####[facility] Vx[address] [place], [place] [address]DrSmooth MontielNEUT #5.7 103/ulNormal1.4-6.5The [facility] CenterComment on above: Performed By: #### CBC ####[facility] Y[address]azk[address] [place], [place] [address]Dr.Good MontielNeutrophils/100 WBC (Bld)67.7 %Normal 43.0-75.0The [facility] CenterComment on above:Performed By: #### CBC ####[facility] [address] [address]Dr. Good MontielPlatelet mean volume (Bld) [Entitic vol]8.2 fLCritically low9.5-13.5 The [facility] CenterComment on above:Performed By: #### CBC ####[facility] [address] [address]Dr.Good BvfczZAO282 103/irOphlru325-646Cqk [facility] CenterComment on above:Performed By: #### CBC ####[facility] Bxjrcp[address] [place], [place] [address]Dr. Good ChangRBC4.44 106/ulNormal4.20-5.40The [facility] CenterComment on above: Performed By: #### CBC ####[facility] [address] [address]Dr.Good ChangWBC8.4 103/ulNormal4.0-11.0The [facility] CenterComment on above:Performed By: #### CBC ####[facility] Mytpevicij[address] [place], [place] [address]Dr.Good ChangCT STROKE HEAD WOon 08-21-5486QS STROKE HEAD WOEXAMINATION: CT STROKE HEAD WO, 05/27/2021 6:54 AM [...] Electronically authenticated by: GINGER BROOKS Date: 2021-05-27 07:10[facility] HospitalPROF 14(COMP METB)on 77-89-1889Ngnoixo [Mass/Vol]3.3 g/dL Critically low3.5-5.0The [facility] CenterComment on above:Performed By: #### CMADM, CMP, BNP ####[facility] [address] [address]Dr. Yilan ChangAlbumin/Globulin [Mass ratio]1.0 {ratio}NormalThe [facility] CenterComment on above:Performed By: #### CMADM, CMP, BNP ####[facility] [address] [address]Dr. Yilan ChangALP [Catalytic activity/Vol]43 U/QKufvhh29-311Zbw [facility] Comment on above:Performed By: #### CMADM, CMP, BNP ####[facility] [address] [address]Dr. Yilan ChangALT [Catalytic activity/Vol]27 U/LNormal9-52The [facility] CenterComment on above:Performed By: #### CMADM, CMP, BNP ####[facility] [address] [address]Dr. Yilan ChangAnion gap [Moles/Vol]8.1 mmol/LNormal The [facility] CenterComment on above:Performed By: #### CMADM, CMP, BNP ####[facility] [address] [address]Dr. Yilan ChangAST [Catalytic activity/Vol]23 U/CGolbgz24-82Eea [facility] Comment on above:Performed By: #### CMADM, CMP, BNP ####[facility] [address] [address]Dr. Yilan ChangBilirubin [Mass/Vol]0.4 mg/dLNormal0.2-1.3The [facility] CenterComment on above:Performed By: #### CMADM, CMP, BNP ####[facility] [address] [address]Dr. Yilan ChangCalcium [Mass/Vol]8.5 mg/dLNormal 8.4-10.2The [facility] CenterComment on above:Performed By: #### CMADM, CMP, BNP ####[facility] [address] [address]Dr. Yilan ChangChloride [Moles/Vol]94 mmol/LCritically lpj23-560Hjn [facility] CenterComment on above:Performed By: #### CMADM, CMP, BNP ####[facility] [address] [place], [place] [address]Dr. Yilan ChangCO2 [Moles/Vol]29.9 mmol/ZMzweqe44.0-30.0The [facility] CenterComment on above: Performed By: #### CMADM, CMP, BNP ####[facility] Fatwh[address]rtk[address] [place], [place] [address]Dr. Yilan ChangCreatinine [Mass/Vol]0.77 mg/dL Normal0.52-1.04The [facility] CenterComment on above:Performed By: #### CMADM, CMP, BNP ####[facility] [address] [place], [place] [address]Dr. Yilan ChangEGFR-AF COLOMBIAN>60Normal>=60The [facility] CenterComment on above:Performed By: #### CMADM, CMP, BNP ####[facility] Okzmilcbjx[address] [place], [place] [address]Dr. Yilan ChangEGFR-NON AF COLOMBIAN>60Normal >=60The [facility] CenterComment on above:Performed By: #### CMADM, CMP, BNP ####[facility] [address] [place], [place] [address]Dr. Yilan ChangGlobulin (S) [Mass/Vol]3.4 g/dLNormalThe [facility] CenterComment on above:Performed By: #### CMADM, CMP, BNP ####[facility] Weeqamxsst[address] [place], [place] [address]Dr. Yilan ChangGlucose [Mass/Vol]114 mg/dL Critically noyh85-589Itx [facility] CenterComment on above:Performed By: #### CMADM, CMP, BNP ####[facility] [address] [address]Dr. Yilan ChangPotassium [Moles/Vol]4.0 mmol/LNormal3.4-5.0The [facility] CenterComment on above:Performed By: #### CMADM, CMP, BNP ####[facility] [address] [address]Dr. Yilan ChangProtein [Mass/Vol]6.7 g/dLNormal6.1-8.2The [facility] CenterComment on above:Performed By: #### CMADM, CMP, BNP ####[facility] [address] [address]Dr. Relan ChangSodium [Moles/Vol]128 mmol/L Critically onh544-936Vre [facility] CenterComment on above:Performed By: #### CMADM, CMP, BNP ####[facility] [address] [address]Dr. Good ChangUrea nitrogen [Mass/Vol]12.0 mg/dLNormal7.0-17.0The [facility] CenterComcorewell health blodgett hospital on above:Performed By: #### CMADM, CMP, BNP ####[facility] [address] [address]Dr. Relan ChangUrea nitrogen/Creatinine [Mass ratio]15.6 mg/mgNoMarietta Osteopathic ClinicComment on above:Performed By: #### CMADM, CMP, BNP ####[facility] [address] [address]Dr. Good Montiel PROTIMEon 15-83-2032WUR Coag (PPP) [Relative time]1.01 {INR}NormalThe [facility] CenterComcorewell health blodgett hospital on above:Performed By: #### MMA2 #### [facility] [address] [address] [address] Good Hwang GUIDELINESSEE BELOWLima Memorial HospitalComment on above:Result Comment: DESIRED INR: 2.0 - 3.0 CONDITIONS NOT LISTED BELOW 2.5 - 3.5 FOR PROSTHETIC HEART VALVE REPLACEMENT 2.5 - 3.5 RECURRENT THROMBOSIS Performed By: #### MMA2 #### [facility] [address] [place] [address] Dr. Good Owens Coag (PPP) [Time]10.9 sNormal9.0-11.6The [facility] Comment on above:Performed By: #### MMA2 #### [facility] [address] [place] [address] Dr. Good OwensTon 11-69-7313rDHR Coag (Bld) [Time]24.[address] HospitalComment on above:Performed By: #### MMA2 #### [facility] [address] [place] [address] Dr. Good MontielXR CHEST 1 Von 26-80-4312XP CHEST 1 VEXAMINATION: XR CHEST 1 V HISTORY: Dizziness COMPARISON: [...] Electronically authenticated by: GINGER BROOKS Date: 2021-05-27 07:53[facility] Vital Signs Date TimeVital SignValuePerforming AyxdbjaifYrhsfrwp55-18-0729 15:48-0400Body jjbnfy555.9 Kirill Prado MD Work Phone: [facility]OM[facility] CenterCimbdroize99-80-0221 15:48-0400Body mass index (BMI) [Ratio]34.74 kg/g3EzlinWily Prado MD Work Phone: [facility]OM[facility] CenterJptfwokkzs47-99-7864 15:48-0400Body divxwo30.02 kgWily Prado MD Work Phone: [facility] HealthcareOckqfobvkz38-26-4582 15:48-0400Diastolic blood rkqewxnq76 mm[Hg]Wily Prado MD Work Phone: [facility]OM[facility] CenterFouthpjcud43-57-9056 15:48-0400Heart rate64 /min Wily Prado MD Work Phone: 1(283)[facility]-9503NOMiss[facility] Rehabilitation CenterXykgwhbubp22-71-6269 15:48-2738ApE8% (BldA) [Mass fraction]94 %Wily Prado MD Work Phone: [facility] HealthcareElpoxzuzwy71-12-3709 15:48-0400Systolic blood fysowddq163 mm[Hg]Wily Prado MD Work Phone: 1(267)[facility]-1505NOM[facility] Rehabilitation CenterGchjsrgghj85-90-0109 08:34-0500Diastolic blood sawapdtr23 mm[Hg]Wily Prado MD Work Phone: [facility] HealthcareCvptcoxhkp69-02-6028 08:34-0500Systolic blood mm[Hg]Wily Prado MD Work Phone: 1(545)[facility]-4593[facility] HealthcareSjaabaxdpq79-30-3313 08:24-0500Body mnhodg863.9 cmRnas Prado MD Work Phone: [facility] HealthcareVfuyufagfh06-19-3847 08:24-0500Body mass index (BMI) [Ratio]33.33 kg/r5TssyzWily Prado MD Work Phone: [facility]OM[facility] CenterDiotrkscik42-04-9943 08:24-0500Body evkugn20.84 kgWily Prado MD Work Phone: [facility] HealthcarePxpkuckpjd59-91-1295 08:24-0500Diastolic blood bazcqmae59 mm[Hg]Wily Prado MD Work Phone: [facility]OM[facility] CenterOkurshyyhj85-88-1427 08:24-0500Heart rate61 /min Wily Prado MD Work Phone: [facility]OM[facility] CenterKsmntyqtql70-51-6728 08:24-0500Respiratory rate17 /minWily Prado MD Work Phone: [facility]OM[facility] Rehabilitation CenterBsdbyzuphc81-38-1927 08:24-9067DhA3% (BldA) [Mass fraction]98 %Wily Prado MD Work Phone: [facility] HealthcareMpiahtdwiu74-26-2156 08:24-0500Systolic blood mm[Hg]Wily Prado MD Work Phone: [facility] HealthcareEmebapyecp35-32-1572 10:04-0400Body .9 cmRnas Prado MD Work Phone: [facility] HealthcareHnploffwdr10-71-8929 10:04-0400Body mass index (BMI) [Ratio]33.12 kg/k8AavbqWily Prado MD Work Phone: [facility] HealthcareJuesvqazul17-28-2905 10:04-0400Body dmsukh74.39 kgWily Prado MD Work Phone: [facility] HealthcareIlvpvlhlkm86-52-9094 10:04-0400Diastolic blood yylmycat80 mm[Hg]Wily Prado MD Work Phone: 1(088)321-[address] [place], [place] [address]Bmdrrqwobm19-76-0013 10:04-0400Heart rate58 /min Wily Prado MD Work Phone: 1(390)680-[address] [place], [place] [address]Nbtfskmdxv38-51-1238 10:04-7932DlR0% (BldA) [Mass fraction]97 %Wily Prado MD Work Phone: [facility] HealthcareOuvefsbawt24-35-3944 10:04-0400Systolic blood yrsyvqzi906 mm[Hg]Wily Prado MD Work Phone: 1(885)136-[address] [place], [place] [address]Ocobuokred74-54-2438 10:58-0400Body temperature 97.2 [degF]MD Wily Prado Work Phone: 1(179)227-[address] [place], [place] 9451809-19-2023 10:58-0400 Body .92 kgMD Wily Prado Work Phone: 1(724)868-[address] [place], [place] 9451809-19-2023 10:58-0400 Diastolic blood iuizxvzi69 mm[Hg]MD Wily Prado Work Phone: 1(255)082-[address] [place], [place] [address]45[address]09-19-2023 10:58-0400 Heart rate67 /minMD Wily Prado Work Phone: 1(804)259-[address] [place], [place] [address]09-19-2023 10:58-0400 Respiratory rate16 /minMD Rugelsy [place] Work Phone: 1(233)[address]09-19-2023 10:58-0400 SaO2% (BldA) [Mass fraction]95 %MD Wily Prado Work Phone: 1(635)34670 [address]09-19-2023 10:58-0400 Systolic blood wvdcaotw395 mm[Hg]MD Wily Prado Work Phone: 1(886)57[address]06-20-2023 09:46-0400 Body fnfvfzqhmit17.8 [degF]MD Wily Prado Work Phone: 1(380)[address]70 [address]06-20-2023 09:46-0400 Body cmbdub99.01 kgMD Wily Crabtreea Work Phone: 1(541)[address] [place], [place] [address]106-20-2023 09:46-0400 Diastolic blood fqfcuniu61 mm[Hg]MD Wily Prado Work Phone: 1(477)[address]70 [address]06-20-2023 09:46-0400 Heart rate64 /minMD Rugelsy Johan Work Phone: 1(940)19170 [address]06-20-2023 09:46-0400 Respiratory rate16 /minMD Rugelsy Johan Work Phone: 1(168)[address]06-20-2023 09:46-0400 SaO2% (BldA) [Mass fraction]95 %MD Wily Prado Work Phone: 1(869)[address]06-20-2023 09:46-0400 Systolic blood txqgurpr497 mm[Hg]MD Wily Prado Work Phone: 1(162)40070 [address]03-17-2023 10:49-0400 Body whcusgmxupw49.7 [degF]MD Wily Prado Work Phone: 1(029)39270 [address]03-17-2023 10:49-0400 Body cvavqo83 kgMD Wily Prado Work Phone: 1(287)23170 [address]03-17-2023 10:49-0400 Diastolic blood noaggmyr02 mm[Hg]MD Wily Prado Work Phone: 1(973)19370 [address]03-17-2023 10:49-0400 Heart rate64 /minMD Wily Johan Work Phone: 1(244)74970 [address]03-17-2023 10:49-0400 Respiratory rate16 /minMD Julien [place] Work Phone: 1(289)01270 [address]03-17-2023 10:49-0400 SaO2% (BldA) [Mass fraction]96 %MD Wily Prado Work Phone: 1(464)[address] [place], [place] [address]103-17-2023 10:49-0400 Systolic blood mxyirbof195 mm[Hg]MD Wily Prado Work Phone: 1(935)[address] [place], [place] 7521112-12-2022 09:37-0500 Body vbnjxxflyqk42.8 [degF]MD Wily Prado Work Phone: 1(419)[address] [place], [place] 7521112-12-2022 09:37-0500 Body mrfioh86.4 kgMD Wily [place] Work Phone: 1(546)[address] [place], [place] 7521112-12-2022 09:37-0500 Diastolic blood mm[Hg]MD Wily Prado Work Phone: 1(333)[address] [place], [place] [address]521112-12-2022 09:37-0500 Heart rate60 /minMD Wily Prado Work Phone: 1(144)31270 [address]12-12-2022 09:37-0500 Respiratory rate16 /minMD Julien [place] Work Phone: 1(967)07270 [address]12-12-2022 09:37-0500 SaO2% (BldA) [Mass fraction]93 %MD Wily Prado Work Phone: 1(329)16870 [address]12-12-2022 09:37-0500 Systolic blood jgcmnpyp445 mm[Hg]MD Wily Prado Work Phone: 1(090)[address]370 [address]10-10-2022 11:08-0400 Body rlcpklsnydu30 [degF]MD Wily Prado Work Phone: 1(041)[address] [place], [place] 7521110-10-2022 11:08-0400 Body jdjqaw22.73 kgMD Rugelsy [place] Work Phone: 1(128)[address] [place], [place] [address]521110-10-2022 11:08-0400 Diastolic blood exniumyr21 mm[Hg]MD Wily Prado Work Phone: 1419)[address] [place], [place] 7521110-10-2022 11:08-0400 Heart rate65 /minMD Ruglesy [place] Work Phone: 1(149)[address] [place], [place] 7521110-10-2022 11:08-0400 Respiratory rate16 /min Rugelsy [place] Work Phone: 1(926)[address] [place], [place] 7521110-10-2022 11:08-0400 SaO2% (BldA) [Mass fraction]95 %MD Wily Prado Work Phone: 1(775)[address] [place], [place] [address]521110-10-2022 11:08-0400 Systolic blood mrcnuxnz890 mm[Hg]MD Wily Prado Work Phone: 1(305)[address] [place], [place] 75[address]108-30-2022 11:24-0400 Body btnnubumkzs43.9 [degF]MD Wily Prado Work Phone: 1(328)[address] [place], [place] [address]108-30-2022 11:24-0400 Body vllhej01.86 kgMD Rugelsy [place] Work Phone: 1(109)[address] [place], [place] [address]108-30-2022 11:24-0400 Diastolic blood potuqfov96 mm[Hg]MD Wily Prado Work Phone: 1(804)[address] [place], [place] [address]108-30-2022 11:24-0400 Heart rate58 /minMD Julien [place] Work Phone: 1(599)[address] [place], [place] [address]108-30-2022 11:24-0400 Respiratory rate18 /minMD Julien Johan Work Phone: 1(013)[address] [place], [place] [address]108-30-2022 11:24-0400 SaO2% (BldA) [Mass fraction]97 %MD Wily Prado Work Phone: [facility]08-30-2022 11:24-0400 Systolic blood wexmbdfa015 mm[Hg]MD Wily Prado Work Phone: [facility]08-30-2022 11:14-0400 Body kjyiif625.4 cmMD Wily Prado Work Phone: [facility]10-12-2021 13:00-0400 Body ewgyvf372.4 cmJerenetta Buehrer Other [employer] Other 10-12-2021 13:00-0400Body mass index (BMI) [Ratio]37.1 kg/g6Hzsiaad Buehrer Other [employer] Other 10-12-2021 13:00-0400Body xwmdenvowgw16.6 [degF] Mikie Buehrer Other [employer] Other 10-12-2021 13:00-0400Body sbfohu17.18 kgJerenetta Buehrer Other [employer] Other 10-12-2021 13:00-0400Diastolic blood teufvajc01 mm[Hg] Mikie Buehrer Other [employer] Other 10-12-2021 13:00-0400Systolic blood sgqjowqs826 mm[Hg] Mikie Buehrer Other [employer] Other Encounters Encounter DateEncounter TypeCare ProviderFacilityStart: 03-11-2025 End: 20-70-1197VoslbgJiwca M Alda MD Work Phone: [facility] MedinceComment on above:Other insomniaStart: 02-28-2025 End: 47-69-4693Nbiyfbubh Result EncounterGeneric External Data ProviderNOMS External Department UnsolicitedStart: 02-28-2025 End: 28-92-1240Ijgrtwcml Result EncounterGeneric External Data ProviderNOMS External Department UnsolicitedStart: 02-11-2025 End: 05-79-4932JedyfrFptxj M Hemmer PA Work Phone: [facility] MedinceComment on above:Type 2 diabetes mellitus with diabetic polyneuropathy, with long-term current use of insulin (HCC)Start: 01-28-2025 End: 43-79-6156uhhbscfkctEwvbeei Vytautas Giedraitis MDFacility:[facility] Start: 01-07-2025 End: 23-89-2800luamwzoufkRcmfdjk Vytautas Giedraitis MDFacility:[facility] [place] Start: 12-24-2024 End: 43-01-4445tqwyzrfmfjLulcsbe Vytautas Giedraitis MDFacility:[facility] [place] Start: 12-14-2024 End: 35-96-8494VdnsxxCilps M Hemmer PA Work Phone: [facility] MedinceComment on above:Other insomniaStart: 12-10-2024 End: 77-96-0439QrdfwyUhneu M Alda MD Work Phone: [facility] MedinceComment on above:Other insomniaStart: 11-18-2024 End: 83-18-6787YqhozcDsslg M Alda MD Work Phone: [facility] FMComment on above:Essential hypertension Start: 11-09-2024 End: 44-23-9382UeyixvNpgli M Alda MD Work Phone: NOMS CI FMComment on above:Other insomniaStart: 10-19-2024 End: 04-01-7815ydczpwchtoQHIAX M ALDANot AvailableStart: 10-12-2024 End: 79-27-8801Ehwsihshq encounterLatonya GE Work Phone: NOMS CI FMStart: 10-11-2024 End: 05-72-1643knilvsjsspKOGJT M ALDANot AvailableStart: 10-11-2024 End: 98-80-3226Nrrnxo outpatient visit 25 minutesWily Prado MD Work Phone: NOMS CI FMComment on above:Diabetes mellitus with peripheral vascular disease (CMS/HCC) (Primary Dx); Epilepsy, unspecified, not intractable, without status epilepticus; Other secondary pulmonary hypertension; Heart failure, unspecified (CMS/HCC); Benign hypertension (CMS/HCC); Grade II diastolic dysfunction; Type 2 diabetes mellitus with diabetic polyneuropathy, with long-term current use of insulin (CMS/HCC); Bilateral carotid bruitsStart: 10-11-2024 End: 56-32-8535Bwzqchxzf encounterWily Prado MD Work Phone: [facility] CI FM 100Start: 10-09-2024 End: 22-47-3063FaqkwfZjrgx M Alda MD Work Phone: NOMS CI FMComment on above:Other insomniaStart: 08-09-2024 End: 42-78-5370LeuumwEarly Dukles LPNNOMS CI FMComment on above:Other insomnia Start: 05-11-2024 End: 24-70-5351Ofdqaju encounter Justyna Prado MD Work Phone: NOMS CI FMComment on above:Essential hypertension (CMS/HCC)Start: 05-11-2024 End: 63-11-3824mdpwvdxogiQTRQB ALDANot AvailableStart: 05-08-2024 End: 52-81-2557Akdgpj Adriano Prado MD Work Phone: NOMS CI FMStart: 05-08-2024 End: 97-05-1169Dnfgnt Adriano Prado MD Work Phone: NOMS CI FMStart: 05-08-2024 End: 04-93-6949Glfpto outpatient visit 25 minutesWily Prado MD Work Phone: NOMS CI FMComment on above:Type 2 diabetes mellitus with diabetic polyneuropathy, with long-term current use of insulin (CMS/HCC) (Primary Dx); Mixed hyperlipidemia (CMS/HCC); Agitation states as acute reaction to exceptional (gross) stress; Essential hypertension (CMS/HCC); Other insomnia; Hypertensive emergency (CMS/HCC)Start: 05-08-2024 End: 34-61-3024xmlmkoeariGAMEZ M ALDANot AvailableStart: 05-04-2024 End: 85-19-3493QhybnlSktfbrn Caden BOLDEN CI FMComment on above:Other insomnia Start: 03-26-2024 End: 62-07-5302JgbglnYozcylt Caden BOLDEN CI FMComment on above:Other insomnia Start: 03-20-2024 End: 01-17-4476JotlxtGlbzzav Caden BOLDEN CI FMComment on above:Other insomnia Start: 02-15-2024 End: 49-44-8260TfbhurPkrphab Caden BOLDEN CI FMComment on above:Other insomnia Start: 02-10-2024 End: 68-42-8076AjpuzeTpzofJihan GE Work Phone: NOMS CI FMComment on above:Type 2 diabetes mellitus with diabetic polyneuropathy, with long-term current use of insulin (CMS/HCC) Essential hypertension (CMS/HCC)Start: 01-17-2024 End: 41-28-1672Wzkgvg outpatient visit 25 minutesWily Prado MD Work Phone: NOMS CI FMComment on above:Lumbar spondylosis (Primary Dx); Other insomnia; 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 claudicationStart: 01-17-2024 End: 24-34-2024dfkvqbzpbfJGVCL M ALDANot AvailableStart: 01-11-2024 End: 41-30-0551Grayck flowsheetSammantha Guan PTNOMS CI PTStart: 01-11-2024 End: 92-96-6914Kohqll flowsheetSammantha Guan PTNOMS CI PTStart: 01-11-2024 End: 70-79-5783reahcfjmbsLraibvfry Guan PTNOMS CI PTComment on above:Muscle spasm of back (Primary Dx); Bilateral hip pain; Acute bilateral low back pain with sciatica, sciatica laterality unspecified; Lumbar spondylosisStart: 01-09-2024 End: 20-31-4396Rxbueb flowsheetEddie Ambrocio PTANOMS CI PTStart: 01-09-2024 End: 77-06-2087Bgrlns flowsheetMarshaamir Ambrocio PTANOMS CI PTStart: 01-09-2024 End: 55-41-7975epgqevkvigZkqxhity Brink PTANOMS CI PTComment on above:Muscle spasm of back (Primary Dx); Bilateral hip pain; Acute bilateral low back pain with sciatica, sciatica laterality unspecified; Lumbar spondylosisStart: 01-05-2024 End: 80-90-5248pfapqfxwcxNpftyyv German PTANOMS CI PTComment on above:Muscle spasm of back (Primary Dx); Bilateral hip pain; Acute bilateral low back pain with sciatica, sciatica laterality unspecified; Lumbar spondylosisStart: 01-02-2024 End: 07-78-9491vdeydjdarlANZVSGPBD SCHNEIDERNot AvailableStart: 12-29-2023 End: 96-54-7501syuvlhtueoJRCDSYO LAWRENCENot AvailableStart: 12-27-2023 End: 14-52-6597rnhnrynbtiDPGFROTAT SCHNEIDERNot AvailableStart: 33-76-9389Dwdyo of hemosiderin, quantLondon German PTANOMS HealthcareStart: 12-26-2023 End: 29-91-5727azqndexlsyNCBTA M ALDANot AvailableStart: 12-20-2023 End: 97-61-7556qphjuyyqdoUELA D BEJNot AvailableStart: 09-16-2023 End: 53-16-3068Jtrejdh encounter procedureMD Wily Prado Work Phone: [facility] [place] Work Phone: Start: 09-16-2023 End: 65-47-7406fxzmhukohpMT Rugen M Alda Work Phone: [facility] Work Phone: Start: 08-13-2023 End: 54-24-8342Xxnxtqott Result EncounterWily Prado MD Work Phone: noms External Department UnsolicitedStart: 08-13-2023 End: 83-19-6820Vtdkrvlzd Result EncounterWily Prado MD Work Phone: noms External Department UnsolicitedStart: 06-28-2023 End: 67-60-3306iamkdqgsitFbuanxh Lawrence PTANOMS CI PTComment on above:Acute bilateral low back pain with sciatica, sciatica laterality unspecified (Primary Dx); Lumbar spondylosis; Bilateral hip painStart: 18-83-0320Wxwwdd flowsJunioreddi German PTANOMS CI PTStart: 75-00-3407Jfqlak flowsAnthony German PTANOMS CI PTStart: 06-21-2023 End: 05-69-4682rtbgbznmloXbdzzw T Blackston PT Work Phone: NOMS CI PTComment on above:Acute bilateral low back pain with sciatica, sciatica laterality unspecified (Primary Dx); Lumbar spondylosis; Bilateral hip painStart: 06-16-2023 End: 73-97-0814uptffmwsxvOvrmni T Blackston PT Work Phone: noMS CI PTComment on above:Acute bilateral low back pain with sciatica, sciatica laterality unspecified (Primary Dx); Lumbar spondylosis; Bilateral hip painStart: 46-32-2449Yuyyhk flowsheetJeremy T Blackston PT Work Phone: NOMS CI PTStart: 73-25-9080Pfnuvn flowsheetLaloremy T Blackston PT Work Phone: NOMS CI PTStart: 19-62-8395Fjyhpgnpf Marshall Prado MD Work Phone: noMS CI FMComment on above:Med Refill ([facility] [place])Acute bilateral low back pain with bilateral sciatica (Primary Dx) Start: 60-23-1159swhheoaqqpYZ Rugen M Johan Work Phone: [facility] Work Phone: Start: 85-67-3464Hwemqqqmwi RecurringMD Rugen [place] Work Phone: [phone] [place] [address] [facility] Work Phone: Start: 11-02-2022 End: 13-57-0687xfymqyrflzQB Rugen M Johan Work Phone: [phone] [place] [address] Ctr Work Phone: Start: 11-02-2022 End: 13-26-8182Snllbesdnj RecurringMD Rugen Johan Work Phone: [phone] [place] [address] [facility] Work Phone: Start: 07-30-2022 End: 18-17-5904yhocyczvqhZR Rugen M Johan Work Phone: [phone] [place] [address] Ctr Work Phone: Start: 07-30-2022 End: 48-81-2540Wtcfwhlewx RecurringMD Rugen [place] Work Phone: [phone] [place] [address] [facility] Work Phone: Start: 04-26-2022 End: 09-81-6176brjeqqhlfdZX Rugen M Johan Work Phone: [phone] [place] [address] Ctr Work Phone: Start: 04-26-2022 End: 35-86-6852Ipvmiftrrm RecurringMD Rugen [place] Work Phone: [phone] [place] [address] Ctr-Cancer CenterStart: 02-22-2022 End: 02-27-8853ofsswmbjezUV Rugen M Johan Work Phone: [phone] [place] [address] Ctr Work Phone: Start: 02-22-2022 End: 67-30-3270Fibihpocod RecurringMD Rugen [place] Work Phone: [phone] [place] [address] Ctr-Cancer CenterStart: 02-17-2022 End: 78-45-7352tqrnjchffbUMNLLIR PROVIDERFacility:METROHealthStart: 02-17-2022 End: 47-08-3730Owuvpqfdo department patient visitEt3 [facility] Emergency Triage, Treat and TransportComment on above:ArrivedStart: 01-21-2022 End: 79-47-9808fahhegjwgoLC NATALIA MARKERFacility:K6Owtap: 01-20-2022 End: 39-82-9451mbqzbrndysHA MIKIE PAYFacility:T9Cbefq: 01-20-2022 End: 67-86-0850Xsomhmap ReferredMD Rugen [place] Work Phone: [facility] Main CampusStart: 01-15-2022 End: 88-51-5419chjggciifcMGXDEEV PROVIDERFacility:METROHealthStart: 01-14-2022 End: 26-94-5029sgelkingilQR LOGAN GATESFacility:Z4Fmxfx: 01-12-2022 End: 23-46-9437Npojsnqrjz RecurringMD Rugen [place] Work Phone: [facility]-Cancer CenterStart: 26-68-6997Yyjqhzplbs RecurringMD Rugen [place] Work Phone: [facility]-Cancer CenterStart: 01-04-2022 End: 26-47-5088shgbchkjnqAO GINGER BROOKSFacility:P8Imvwn: 12-24-2021 End: 03-81-2654xtheaizgrcEKDXU PARKERFacility:W8Vbbdq: 11-24-2021 End: 91-54-4828gnbzhlcjkpIU MARK R SMITHFacility:D0Hgkrf: 08-45-5750Asurinitj for general adult medical examination without abnormal findingsDR LATONYA JOSEPH [facility] Hospitaltart: 11-10-2021 End: 61-14-5900fwhvuposxoBO DAVID V WESTFacility:N9Zpccn: 11-10-2021 End: 00-55-6005Kgblqktsa for general adult medical examination without abnormal findingsDR ARIAN V WESTFacility:V9Rpoto: 08-12-2021 End: 04-86-1625tffpudcltvFLNJ BEJFacility:W4Ryust: 06-10-2021 End: 56-13-6918naomoncgyzEI NATALIA MARKERFacility:Z4Clfwq: 06-05-2021 End: 18-55-4892ntsfifvcxxSG FELIBERTO HOYFacility:U3Fdzya: 06-04-2021 End: 21-84-2700hiiyqrrnapGT GINGER MEDINAEBERFacility:Y8Dbifv: 05-27-2021 End: 77-03-3354qfwkhaqnuzDANOGH KATIRJIFacility:G9Eajdi: 93-48-0511Rfrgrj outpatient visit [address] V[facility] Surgery Procedures DateProcedureProcedure DetailPerforming ClinicianStart: 13-80-6646VC LUMBAR SPINE WO CONGeneric External Data ProviderStart: 44-17-5199Mguyhzsnem glycosylated y1uLodsiWily Prado MD Work Phone: Start: 55-91-8789UQ pre/post mri xrayMD Wily Prado Work Phone: Start: 52-17-7090WB lumbar spine wo conMD Wily rPado Work Phone: Start: 65-78-1155Sfnkjlz of carotid endarterectomyH/O carotid endarterectomyKennetDuane L. Waters Hospital PTAStart: 20-46-4329QP LUMBAR SPINE 2 OR 3VRnas Prado MD Work Phone: Start: 72-99-8126GshdbgtmindQhyief [facility] PT Work Phone: History of carotid endarterectomyH/O carotid endarterectomyMD Wily Prado Work Phone: Plan of Treatment DateCare ActivityDetailAuthorStart: 58-65-2061Swkflyimh for malignant neoplasm of colonNOMS HealthcareStart: 79-96-4059Ibzhzhsg screeningDiabetes: Retinopathy ScreeningNOMS HealthcareStart: 69-16-7949Lhrkfcgm screeningDiabetes: Retinopathy ScreeningNOMS HealthcareStart: 04-72-2700Yqxovcimgww [Mass/volume] in Serum or PlasmaCholesterolMetroHealthStart: 04-02-2025 End: 53-65-7876Ytigxtj encounter procedureNOMS CI FMStart: 72-67-2305OZPNT-19 Vaccine ( season)COVID-19 Vaccine ()[facility] Start: 33-56-8114Orwvxikfm vaccinationInfluenza Vaccine (#1)[facility] Start: 66-49-5336Nbmrvjoqyz A1c measurementDiabetes: Hemoglobin V4YJVQD HealthcareStart: 08-12-2025Medicare Annual Wellness (AWV)Medicare Annual Wellness (AWV)NOMS HealthcareStart: 10-11-2024 End: 91-82-3943Tprvrmo encounter /29/2025 3:30 PM EDT Office Visit [facility] CI FM [address] [facility] [address] [place] [phone] Wily Prado MD [address] [facility] [address] [place] [address] NOMS CI FMStart: 10-11-2024 End: 23-16-5639KC.doppler Carotid arteries - bilateralVascular US carotid artery duplex bilateral Imaging Routine Bilateral carotid bruits Expected: 10/11/2024, Expires: 10/11/2025[facility] Work Phone: Comment on above:Expected: 10/11/2024, Expires: 10/11/2025Start: 05-11-2024 End: 75-18-2908Atwufnfm Iivmcun4605/11/2024 10:00 AM EST Clinical Support [facility] FM [address] [facility] [address] [place] [phone] NOMS CI FM Start: 68-30-0271Taysd screening for proteinDiabetes: Urine Protein Screening NOMS HealthcareStart: 05-08-2024 End: 44-52-9314Zyyzgiu encounter procedureNOMS CI FMComment on above:Arrived Start: 04-17-2024 End: 04-80-4853Nsrgiwr encounter procedureNOMS CI FMStart: 29-66-7440Elgeybatjr A1c measurementDiabetes: Hemoglobin O7SGJYM HealthcareStart: 01-17-2024 End: 38-08-7131Ezqylzi encounter titqqcopt13/03/2024 10:00 AM EDT Office Visit [facility] FM [address] [facility] [address] [place] [address] Wily Prado MD [address] [facility] [address] [place] [address] NOMS CI FMStart: 40-16-1305Puwksshtk vaccinationInfluenza Vaccine (#1)NOMS HealthcareStart: 01-11-2024 End: 10-00-2704trjzofmmrg41/28/2024 10:30 AM EDT Treatment [facility] CI PT [address] [facility] [address] [place] [address] Jalyn Guan PTNOMS CI PTStart: 01-09-2024 End: 66-18-9526welullwgyxASAR CI PTComment on above:ArrivedStart: 12-28-2023 Medicare Annual Wellness (AWV)Medicare Annual Wellness (AWV)[facility] Start: 07-05-2023 End: 36-97-7756nxypnaglgc68/20/2024 2:30 PM EST Treatment [facility] CI PT [address] [facility] [address] [place] [address] [place] Crabtree PTANOMS CI PTStart: 06-30-2023 End: 44-98-3290ogxqrhilicSOUU CI PTStart: 78-02-3059Hjyrzjyzqb A1c measurement Diabetes: Hemoglobin I1TGPMA HealthcareComment on above:Postponed from 03/29/2023 (Other Medical Reasons)Start: 06-28-2023 End: 30-83-1188vqzyiqgwoeQPJY CI PTComment on above:ArrivedStart: 06-23-2023 End: 24-40-1660ivhqrespruLXYA CI PTStart: 06-21-2023 End: 13-15-4430pxsldpdrqh67/06/2024 2:30 PM EST Treatment [facility] CI PT [address] [facility] [address] [place] [phone] YohannesSom, PT [address] [facility] [address] [place] [address] NOMS CI PTStart: 06-16-2023 End: 73-28-8175obrljiffos61/01/2024 2:00 PM EST Treatment [facility] CI PT [address] [facility] [address] [place] [address] Yohannes Som Nicole, PT [address] [facility] [address] [place] [address] ArrivedNOOR CI PTComment on above:ArrivedStart: 81-82-4815Qodqdclmn for malignant neoplasm of colonFIT-DNANOMS HealthcareStart: 27-12-6235Rolzet Wellness Visit (G0439)Annual Wellness Visit (G0439)MetroHealthStart: 08-30-2022 [facility]: 70-41-9729ZnpbcbsrsSelect Medical Specialty Hospital - Cantontart: 40-28-2224ZKxA/Tdap/Td Vaccines (3 - Td or Tdap)DTaP/Tdap/Td Vaccines (3 - Td or Tdap)NOMS HealthcareStart: 64-87-4318Smayyuip screening Diabetes: Retinopathy ScreeningHUNTSMAN MENTAL [facility]ALTH IN[facility] HealthcareStart: 67-13-6139Lxedbguze vaccinationInfluenza Vaccine (#1)MetroHealthStart: 57-22-8321VkxombjefSelect Medical Specialty Hospital - Cantontart: 18-55-3830MRVOY-19 Vaccine (5 - Booster for Pfizer series) COVID-19 Vaccine (5 - Booster for Pfizer series)MetroHealthStart: 01-28-2022 [facility]: 83-05-5598Eilpozmyz for malignant neoplasm of colonFOBTNOOR HealthcareStart: 13-45-7618Aghdktstvjgh vaccination Pneumococcal Vaccine(s) (65+ yrs) (2 - PPSV23 or PCV20)MetroHealthStart: 32-02-8005Odxsufke (RZV) Vaccine (2 of 2)Shingles (RZV) Vaccine (2 of 2) MetroHealthStart: 96-36-5764Fvrdrhtph for malignant neoplasm of breast MammographyMetroHealthStart: 31-51-2869Gqpowanrs for osteoporosisBone DensitometryMetroHealthStart: 55-59-3445Mkyrthpyude of occult blood in single stool specimenFITMetroHealthStart: 21-25-0355Npahyatcz for malignant neoplasm of colonCRC ScreeningMetroHealthStart: 50-08-4635Zblipigbb C screeningHepatitis C AntibodyMetroHealthStart: 62-10-6007Sgfaclo + diphtheria + acellular pertussis vaccine (product)Tdap BoosterMetroHealthStart: 51-38-0583Zwvqqoyfc for malignant neoplasm of colonMetroHealthStart: 91-19-5648Zqtwnovbo for malignant neoplasm of lungLung Cancer Screening Shared Decision MakingBothwell Regional Health Centerprehenve metabolic 1999 panel - Serum or [facility] Comprehensive metabolic 1999 panel - Serum or [facility] CampusComprehensive metabolic 1999 panel - Serum or [facility] CampusFerritin [Mass/volume] in Serum or [facility] CampusFerritin [Mass/volume] in Serum or [facility] Work Phone: [facility] Immunizations Immunization DateImmunizationNotesCare GiwiogngKxxnctph59-60-8069bxlonmtlf, high dose seasonal, preservative-freeWily Prado MD Work Phone: NOMissouri Rehabilitation CenterCopsmteeep03-05-3481fzcccvbtj virus vaccine, unspecified formulationWily Prado MD Work Phone: NOMissouri Rehabilitation CenterVherdrzkcm08-39-6362EVG, recombinant, protein subunit RSVpreF, adjuvant reconstitu, 120mcg/0.5mL, PF (Arexvy)Som Sheffield PT Work Phone: NOOR Vzynhxkblx08-47-8972Cxvexvkuo, Seasonal, Quadrivalent, AdjuvantedJeremveronica Sheffield PT Work Phone: NOMissouri Rehabilitation CenterVbgudmfcxz33-84-7863cepjhdgmx virus vaccine, unspecified formulationLondon Crabtree Guthrie ClinicKjntlovwta60-47-2990zdexovhmc, high dose seasonal, preservative-freeLaloremveronica Hernandezcape regional medical center PT Work Phone: [facility] HealthcareMuzlewnfoe32-46-7264jtpmsubtct, tetanus toxoids and pertussis vaccineEt3 RkgvxjcnSpsbkJkipmc04-09-5813iiepfst toxoid, reduced diphtheria toxoid, and acellular pertussis vaccine, adsorbedLalomadison healthveronica [employer] Identityc[facility] PT Work Phone: [facility] HealthcareRfzdjecsry52-25-5313uawpjuv toxoid, reduced diphtheria toxoid, and acellular pertussis vaccine, adsorbedLaloMobile Embraceveronica [facility] Identityc[facility] PT Work Phone: [facility] HealthcareTbfywjsbow83-51-8319Ldtvmjame, seasonal vaccine, quadrivalent, adjuvanted, 0.5mL dose, preservative free (JDV=058)Et3 [facility] HealthPrbisItdqio40-60-6053Arqwhevi, trivalent, recombinant, injectable influenza vaccine, preservative freeDoylestown Healthveronica [facility] PT Work Phone: [facility] HealthcareNpyirubobc38-48-0216msksyweev virus vaccine, unspecified formulationEt3 CfcxnkiyWndygIbmgfp90-18-3108yhdrlcpuqqxr conjugate vaccine, 13 valentEt3 MyrynqhhWrgczRldjly27-71-4055ppxpjv vaccine recombinantEt3 VjnnqqsvUojdnIpnqlt44-27-4475QXTKQ-58 Vaccine Pfizer - Documentation Purposes OnlyMikie West [facility]02-07-2021COVID-19 Vaccine Pfizer - Documentation Purposes OnlyMikie West [facility]03-14-2019 pneumococcal polysaccharide vaccine, 23 valentJerenetta West Other [facility] HealthcareCgvsodawct34-77-6160rjbyh vzpvihiwz-Q0Y9-80, preservative-free, injectableEt3 [facility] Payers DatePayer CategoryPayerPolicy [id number] [id number] Health InsuranceRP [id number] 1.2.840.130377.1.13.693.2.7.3.210323.315 2013Medicare 1.2.840.265251.1.13.56.2.7.3.102991.315 [id number] 2.840.8.17294[id number] 2.0.0.578671.1562-13-1948 [id number] 2.840.1.880141.3.579.2.42791-12-3739Dlfwlgf1279678 2.0.1.783280.3.579.2.37149-96-5800Ssuxabh0804275 2.840.1.666108.3.579.2.19408-08-2277Rpaberr5635242 2.16840.1.954996.3.579.2.80313-56-7926Rdjwhxj2299729 2.16840.1.542049.3.579.2.93750-27-9985Mdvqrwg9238775 2.16840.1.282466.3.579.2.52474-97-5959Noalgqj3259633 2.16.840.1.775855.3.579.2.18223-23-3006Ajqeryb6045411 2.840.1.785412.3.579.2.31967-68-9870Oiecsrv5196473 2.840.1.323366.3.579.2.50765-98-7725Rchxsei1065703 2.840.1.537686.3.579.2.64452-82-1267Ofmcjst3220870 2.840.1.179806.3.579.2.49652-13-0156Tnfvwky5453843 2.840.1.117770.3.579.2.06734-05-5415Ytyzaax609537820 2.0.1.148151.3.579.2.24945-31-0456Wojrrus861306309 2.840.1.159628.3.579.2.22387-41-4408Ichnrrx03357899 2.0.1.894845.3.579.2.662117-62-3424Dsayjcq5802407 2.840.1.161141.3.579.2.422938-63-6286Ftytbsl3518311 2.0.1.432386.3.579.2.611445-03-5803Xlsdmwz3168918 2.840.1.065123.3.579.2.023752-72-8940Niyisna7472817 2.840.1.635725.3.579.2.610893-10-2110Oneepfq1598924 2.840.1.388313.3.579.2.739164-28-7980Qtgzfmm0597535 2.840.1.219389.3.579.2.603425-52-7465Oqnaaqj3806419 2.16.840.1.780978.3.579.2.577338-71-1572Cvfpbom0998106 2.16.840.1.169601.3.579.2.764758-31-6792Fhrplwh3982032 2.16.840.1.091924.3.579.2.001946-37-6091Fnzbgrw8674472 2.16.840.1.877158.3.579.2.481757-98-4473Lrexkuz4042242 2.16.840.1.158402.3.579.2.193926-57-6181Ckmkxmi4577121 2.16.840.1.030706.3.579.2.300311-98-1821Kmkwsqf217354452 2.16.840.1.844337.3.579.2.08841-31-4869Tfnrdsf822980366 2.16.840.1.674552.3.579.2.93002-53-2813Jzxbcyi132412779 2.16.840.1.486315.3.579.2.83123-50-9274Mpbrybs820928546 2.16.840.1.927634.3.579.2.500Aysepfz40079074 2.16.840.1.929287.3.579.2.531 Social History DateTypeDetailFacilityUnknown if ever smokedEduKart Other Start: 05-10-2023 End: 91-42-1284Pqw Assigned At BirthNoNetDevices Other Start: 01-12-2022 End: 05-17-1720Waznagf smoking status NHISSmoker (finding)[facility]ontart: 62-12-0152Fcr Assigned At BirthFeParkwood HospitalTobacco smoking status NHISTobacco smoking consumption unknown MetroHealthStart: 12-34-4144Dgl Assigned At BirthNot on fileMetroHealthStart: 12-27-2022 End: 52-10-4765Kxgcrjn smoking status NHISSmokes tobacco dailyNOOR [facility] History of tobacco useCigarette SmokerNOMS HealthcareStart: 12-27-2022 End: 59-44-8189Iuomuqssbv smoked current (pack per day) - Reported1.5NOMS HealthcareStart: 12-27-2022 End: 35-96-0516Oxkwzbt use and exposureSmokeless tobacco non-userNOMS Healthcare Start: 05-10-2023 End: 39-23-2270Tqeiwxn intakeLifetime non-drinker (finding)[facility]S HealthcareStart: 67-10-7286Eclwguf Sygvikk41-84 cigs/dayNOMS HealthcareStart: 81-05-2053Rghdpbt CommentCaffeine intake: more than 4 cups per dayNOMS HealthcareStart: 07-28-2022 [facility] Medical Equipment Procedure CodeEquipment CodeEquipment Original TextEquipment IdentifierDates Endarterectomy, carotidCardiovascular patch, animal-derived ()[id number] FDAStart: 10-02-2020 Angioplasty of carotid artery with insertion of stentBare-metal carotid artery stent()[id number] FDAStart: 01-51-6526FXQ DIRECTED TWICE A [id number]: each by Other route in the morning and 1 each before bedtime.[id number] TO TEST BLOOD SUGAR TWICE DAILY [id number]: 41-79-6798Tlk as [id number]: 52-04-0372DZV [id number]: 96-44-7398CKR TO TEST BLOOD SUGAR TWICE [id number] Start: 12-10-2024 Goals DatePatient GoalDesired Activity/State Functional Status HckrAyqhsmkkuxJlatfqKesqljii18-88-4783Rrogknd Health Questionnaire 2 item (PHQ- 2) [Reported][facility]-9240Zcgkeot Health Questionnaire 2 item (PHQ- 2) [Reported][facility] Clinical Notes 02-24-2021 to 02-11-2025 Note Date & KjkbTjsvLvknffzr03-85-1223 Telephone encounter Note* Telephone Encounter - LUMA Garcia - 02/11/2025 10:28 AM EDT [facility]5021 Miscellaneous Notes* Telephone Encounter - LUMA Garcia - 02/11/2025 10:28 AM EDT Janumet sent documented in this encounterMiss[facility] HealthcareVflahddjks68-49-9152 Telephone encounter Note* Telephone Encounter - LUMA Garcia - 12/14/2024 12:17 PM EDT Resent, though it does show that [facility] filled this, hopefully she will not have an issue getting this at [facility] and the other Rx will be cancelled. [facility] HealthcareZlkeiuwvfa46-45-8430 Miscellaneous Notes* Telephone Encounter - LUMA Garcia - 12/14/2024 12:17 PM EDT Resent, though it does show that [facility] filled this, hopefully she will not have an issue getting this at [facility] and the other Rx will be cancelled. * Telephone Encounter - VENANCIO SMALL - 12/14/2024 10:03 AM EDT Needs to go to [facility] documented in this [facility]08-01-2025 Telephone encounter Note* Telephone Encounter - VENANCIO SMALL - 12/14/2024 10:03 AM EDT [facility]iy[facility]-4550 Telephone encounter Note* Telephone Encounter - LUMA Garcia - 12/11/2024 8:41 AM EDT OARRS reviewed, Rx sent into [facility]'s pharmacy. [facility] HealthcareLdvhcztzba21-58-0757 Miscellaneous Notes* Telephone Encounter - LUMA Garcia - 12/11/2024 8:41 AM EDT OARRS reviewed, Rx sent into patient's pharmacy. documented in this [facility]07-07-2025 Telephone encounter Note* Telephone Encounter - LUMA Garcia - 11/19/2024 8:33 AM EDT Amlodipine sent. [place] [facility] [id number] Miscellaneous Notes* Telephone Encounter - LUMA Garcia - 11/19/2024 8:33 AM EDT Amlodipine sent. documented in this [facility]06-27-2025 Telephone encounter Note* Telephone Encounter - LUMA Garcia - 11/09/2024 9:07 AM EDT OARRS reviewed, Rx sent into patient's pharmacy. [facility] He[id number] Miscellaneous Notes* Telephone Encounter - LUMA Garcia - 11/09/2024 9:07 AM EDT OARRS reviewed, Rx sent into patient's pharmacy. * Telephone Encounter - VENANCIO SMALL - 11/09/2024 8:40 AM EDT OV 10/11/24 RF 10/11/24 documented in this encounterMissouri Southern HealthcareDxfbjgbkes89-30-9589 Telephone encounter Note* Telephone Encounter - VENANCIO SMALL - 11/09/2024 8:40 AM EDT OV 10/11/24 RF 10/11/24 [facility] HealthcareXwhkdfjqdw56-40-7803 Telephone encounter Note* Telephone Encounter - LUMA Garcia - 10/12/2024 11:57 AM EDT See TE from today. [facility]. [facility] HealthcareAcwhnwdlcc16-43-7334 Miscellaneous Notes* Telephone Encounter - LUMA Garcia - 10/12/2024 11:57 AM EDT See TE from today. Rx will be filled at [facility]. * Telephone Encounter - Charissa Joseph - 10/11/2024 4:22 PM EDT Patient need refill on ALPRAZolam (Xanax) 0.5 MG . She asked if that could be sent to [facility] in [place]. documented in this [facility]05-30-2025 Telephone encounter Note* Telephone Encounter - LUMA Garcia - 10/12/2024 11:55 AM EDT [facility] called, questioning Xanax being sent to [facility]. Advised it was supposed to be filled at [facility], pt did want it filled there, not [facility]. They have a refill on file for her for 30 day supply and will proceed with filling it. They will contact [facility] and let them know that they are filling the Rx for the patient. [place] [facility] He[id number] Miscellaneous Notes* Telephone Encounter - LUMA Garcia - 10/12/2024 11:55 AM EDT [facility] called, questioning Xanax being sent to [facility]. Advised it was supposed to be filled at [facility], pt did want it filled there, not [facility]. They have a refill on file for her for 30 day supply and will proceed with filling it. They will contact [facility] and let them know that they are filling the Rx for the patient. documented in this [facility]05-29-2025 Telephone encounter Note* Telephone Encounter - Charissa Joseph - 10/11/2024 4:22 PM EDT Patient need refill on ALPRAZolam (Xanax) 0.5 MG . She asked if that could be sent to [facility] [place]. [place] [facility] HealthcareHqxgkhrueu63-25-2538 History of Present illness Narrative* Wily Prado MD - 10/11/2024 3:56 PM EDTAssociated Problem(s): Grade II diastolic dysfunction Needs better BP control * Wily Prado MD - 10/11/2024 3:54 PM EDTAssociated Problem(s): Benign hypertension (CMS/HCC) Our specific goals, [...] taking them as prescribed. DASH diet handouts * Wily Prado MD - 10/11/2024 3:53 PM EDTAssociated Problem(s): Diabetes mellitus with peripheral vascular disease [...] and importance of healthy diet and exercise. * Wily Prado MD - 10/11/2024 3:53 PM EDTAssociated Problem(s): Heart failure, unspecified (CMS/HCC) Continue current meds. * Wily Prado MD - 10/11/2024 3:53 PM EDTAssociated Problem(s): Epilepsy, unspecified, not intractable, without status epilepticus Controlled with meds * Wily Prado MD - 10/11/2024 3:30 PM EDT Images from the original note were [...] been stable. There are no hypoglycemic associated symptoms.Pertinent negatives for hypoglycemia include no confusion, dizziness, [...] following a diabetic diet. Meal planning includes a voidance of concentrated sweets. She has not had a previous visit with a dietitian. She participates in exercise intermittently. There is no change in her home blood glucose trend. An LESLEY inhibitor/angiotensin II receptor latha is being taken. She does not see a coffee blender.Eye exam is current. Current Outpatient Medications on [...] tablet 3 insulin pen needle (Droplet Pen [place]) 32G x 4 mm [facility] USE INSTRUCTED 300 each 3 ipratropium-albuterol (Duo-Neb) [...] time each day at the same time. [place]-3 Fatty Acids (Fish Oil) 1000 MG capsule delayed-release Take 1 capsule by mouth 1 (one) timeeach day. omeprazole (PriLOSEC) [address] capsule [...] tablets by mouth in the morning. 180 tablet3 sodium chloride 1 g tablet Take 1 [...] Diagnosis Date AMS (altered mental status) 10/30/2020 [facility] Anemia Arthritis Asthma Breast lump Bronchitis Cancer ([facility]/HCC) cervical Carotid artery stenosis Cataract Chicken pox COPD (chronic obstructive pulmonary disease) ([facility]/HCC) Diabetes mellitus ([facility]/HCC) Disease of thyroid gland (CMS/HCC) Emphysema lung ([facility]/HCC) History of being hospitalized 10/30/2020 AMS [facility] Hyperlipemia ([facility]/HCC) Hypertension ([facility]/HCC) Measles Vascular calcification Past Surgical History: Procedure [...] (around 04/13/2025) for Diabetes. documented in this [facility]05-29-2025 Telephone encounter Note* Telephone Encounter - LUMA Garcia - 10/11/2024 9:41 AM EDT Patient has appointment today. [facility] He[id number] Miscellaneous Notes* Telephone Encounter - LUMA Garcia - 10/11/2024 9:41 AM EDT Patient has appointment today. documented in this [facility]12-27-2024 History of Present illness Narrative* Madiha Negrete MA - 05/11/2024 10:00 AM EST Pt was here for a BP check documented in this [facility]12-24-2024 History of Present illness Narrative* Wily Prado MD - 05/08/2024 9:07 AM ESTAssociated Problem(s): Hypertensive emergency (CMS/HCC) Add Norvasc Take all current blood medications If with severe or stroke like symptoms got to ER * Wily Prado MD - 05/08/2024 9:06 AM ESTAssociated Problem(s): Hyperlipidemia (CMS/HCC) This is a chronic medical condition that is stable since last assessment. No changes in treatment are suggested at this time. Continue Current meds. * Wily Prado MD - 05/08/2024 8:57 AM ESTAssociated Problem(s): Agitation states as acute reaction to exceptional (gross) stress Patient's Medicine is effective at controlling symptoms at current dose and frequency. PDMP reviewed with no evidence of overuse and abuse D/W patient to avoid use of benzodiazepines when consuming alcohol Advised against operating heavy machinery and driving long distances while on medicines. * Wily Prado MD - 05/08/2024 8:56 AM ESTAssociated Problem(s): Diabetes mellitus (CMS/[facility]) No Tobacco use Follow ADA [...] and importance of healthy diet and exercise. * Wily Prado MD - 05/08/2024 8:30 AM EST Images from the original note were not [...] time each day at the same time. [place]-3 Fatty Acids (Fish Oil) 1000 MG capsule delayed-release Take 1 capsule by mouth 1 (one) timeeach day. omeprazole (PriLOSEC) [address] capsule [...] tablets by mouth in the morning. 180 tablet3 sodium chloride 1 g tablet Take 1 g by mouth Daily as needed. tiotropium-olodaterol (Stiolto Respimat) 2.5-2.5 MCG/ACT aerosol solution inhaler INHALE 2 PUFFS BYMOUTH ONCE A DAY 4 g 3 torsemide [...] Diagnosis Date AMS (altered mental status) 10/30/2020 [facility] Anemia Arthritis Asthma ([facility]/HCC) Breast lump Bronchitis Cancer ([facility]/HCC) cervical Carotid artery stenosis Cataract Chicken pox COPD (chronic obstructive pulmonary disease) ([facility]/HCC) Diabetes mellitus (CMS/HCC) Disease of thyroid gland (CMS/HCC) Emphysema lung (CMS/HCC) History of being hospitalized 10/30/2020 AMS [facility] Hyperlipemia ([facility]/HCC) Hypertension ([facility]/HCC) Measles Vascular calcification Past Surgical History: Procedure [...] Medications amLODIPine (Norvasc) 10 MG tablet Hyperlipidemia ([facility]/HCC) This is a chronic medical condition that [...] long distances while on medicines. Hypertensive emergency ([facility]) Add Norvasc Take all current blood medications If with severe or stroke like symptoms got to ER Other Visit Diagnoses Other insomnia Relevant Medications ALPRAZolam (Xanax) 0.5 MG tablet Follow up in about 3 days (around 05/11/2024) for Hypertension. documented in this encounterMissouri Southern He[id number] Telephone encounter Note* Telephone Encounter - LUMA Garcia - 05/04/2024 12:26 PM EST 7 day supply sent. [place] [facility] HealthcareBenzqdkzna90-95-1309 Miscellaneous Notes* Telephone Encounter - LUMA Garcia - 05/04/2024 12:26 PM EST 7 day supply sent. * Telephone Encounter - Madiha Negrete MA - 05/04/2024 8:56 AM EST Pt made an appt for tues with johan , but she is needing a refill on her xanax if willing to send infor her [facility] she stated it helps her sleep at night documented in this [facility]12-20-2024 Telephone encounter Note* Telephone Encounter - Madiha Negrete MA - 05/04/2024 8:56 AM EST Pt made an appt for tues with johan , but she is needing a refill on her xanax if willing to send infor her [facility] she stated it helps her sleep at night [place] [facility] HealthcareFqpumoghoj24-95-5800 Telephone encounter Note* Telephone Encounter - LUMA Garcia - 03/20/2024 11:41 AM EST OARRS reviewed, Rx sent into patient's pharmacy. [place] [facility] HealthcareDytfmgntxg25-71-0361 Miscellaneous Notes* Telephone Encounter - LUMA Garcia - 03/20/2024 11:41 AM EST OARRS reviewed, Rx sent into patient's pharmacy. documented in this [facility]10-02-2024 Telephone encounter Note* Telephone Encounter - LUMA Garcia - 02/15/2024 11:55 AM EDT OARRS reviewed, Rx sent into patient's pharmacy. [place] [facility] HealthcareLuniltbqto27-70-8650 Miscellaneous Notes* Telephone Encounter - LUMA Garcia - 02/15/2024 11:55 AM EDT OARRS reviewed, Rx sent into patient's pharmacy. documented in this [facility]09-27-2024 Telephone encounter Note* Telephone Encounter - LUMA Garcia - 02/10/2024 9:04 AM EDT Atorvastatin [address]. [address]fcybumyep26-31-4518 Miscellaneous Notes* Telephone Encounter - LUMA Garcia - 02/10/2024 9:04 AM EDT Atorvastatin sent. documented [place] [id number] Telephone encounter Note* Telephone Encounter - LUMA Garcia - 02/10/2024 9:03 AM EDT Janumet sent [place] [id number] Miscellaneous Notes* Telephone Encounter - LUMA Garcia - 02/10/2024 9:03 AM EDT Janumet sent documented in this [place] [id number] History of Present illness Narrative* Wily Prado MD - 01/17/2024 10:15 AM EDT Images from the original note [...] time each day at the same time. [place]-3 Fatty Acids (Fish Oil) 1000 MG capsule delayed-release Take 1 capsule by mouth 1 (one) timeeach day. omeprazole (PriLOSEC) [address] capsule [...] tablets by mouth in the morning. 200 tablet3 sodium chloride 1 g tablet Take 1 [...] mouth every 6 (six) hours if needed forsevere pain No current facility-administered medications on file [...] Diagnosis Date AMS (altered mental status) 10/30/2020 [facility] Anemia Arthritis Asthma ([facility]/HCC) Breast lump Bronchitis Cancer ([facility]/HCC) cervical Carotid artery stenosis Cataract Chicken pox COPD (chronic obstructive pulmonary disease) ([facility]) Diabetes mellitus ([facility]/HCC) Disease of thyroid gland ([facility]/HCC) Emphysema lung ([facility]/HCC) History of being hospitalized 10/30/2020 AMS [facility] Hyperlipemia ([facility]) Hypertension ([facility]) Measles Vascular calcification Past Surgical [...] 3 months (around 04/17/2024). documented in this encounterMissouri Southern HealthcareFavkayujoq03-99-3875 History of Present illness Narrative* Jalyn Guan, PT - 01/11/2024 10:30 AM EDT Physical Therapy Treatment Visit / DISCHARGE Patient [...] store when she is pushing a cart. Ptstates she does have neuropathy in both her feet; denies any recent falls. Precautions: Glide Subjective: Pt states she has been hurting [...] minutes) Strength, Endurance, Flexibility, ROM, HEP, Neural Mobilization,Power, and Core Stability as needed. Reviewed HEP [...] instructed in home exercise program. - met Traveling Storekeeper Goals: To be met in 10 weeks [...] Discharge to home program. documented in this encounterMissouri Southern HealthcareAgpzrsycfm32-77-9076 History of Present illness Narrative* Som Sheffield, PT - 06/21/2023 2:30 PM EST Physical Therapy Physical Therapy Evaluation Visit Patient [...] and hip pain which started 4-5 months ago.No insidious onset. Denies N/T. Right side pain is worse than left. Unable to stand greater than 10minutes. Pt. Has history of neuropathy. Sit to stand transfers increases her pain. History of fallsa year ago due to low sodium leading [...] to focus on improve LE/core strength and flexibility.Progressing well toward PT goals. Plan: Recommend outpatient PT 1-2x/week for 4-6 weeks per above PT POC pending patient progress and medical necessity standards I hereby deem this POC medically necessary. Please sign below and fax back to the number below. Physician Signature: Date: documented in this encounterNOMS [id number] Telephone encounter Note* Telephone Encounter - Meme Olsen LPN - 06/16/2023 3:41 PM EST Requesting refill of Tramadol - not on current med list. [facility] [id number] Miscellaneous Notes* Telephone Encounter - Meme Olsen LPN - 06/16/2023 3:41 PM EST Requesting refill of Tramadol - not on current med list. documented in this encounterMissouri Southern HealthcarePmonaqyrky62-58-7876 History of Present illness Narrative* Som Sheffield, PT - 06/16/2023 2:00 PM EST Physical Therapy Physical Therapy Evaluation Visit Patient [...] and hip pain which started 4-5 months ago.No insidious onset. Denies N/T. Right side pain is worse than left. Unable to stand greater than 10minutes. Pt. Has history of neuropathy. Sit to stand transfers increases her pain. History of fallsa year ago due to low sodium leading [...] to focus on improve LE/core strength and flexibility.Added manual techniques to help improve muscle flexibility today. Pt. Tolerate treatment well, performed MT bilaterally. Plan: Recommend outpatient PT 1-2x/week for 4-6 weeks per above PT POC pending patient progress and medical necessity standards I hereby deem this POC medically necessary. Please sign below and fax back to the number below. Physician Signature: Date: documented in this encounterMissouri Southern HealthcareLaytinhire44-53-6635 Progress note Author [facility] November 02, 2022 10:02amNote Date/TimeJune 2022 10:01[facility] at [address] [address] Hem/Onc Follow Up Note - OP Signed Patient: Nuvia Martin MR#: [id number] : 1945 Acct:[id number] Age/Sex: 77 / F Type: REG RCR Copies to: Wily Prado MD~ Subjective Date/Time of Service: Date of Service: 11/02/2022 Time of Service: 10:00 Chief Complaint: Patient is here today for a 3 month follow up visit for iron deficiency anemia andgo over labs HPI: Patient is a 76-year-old white lady seen with her daughter for hematologic surveillance on iron deficiency anemia. She received Injectafer in January 2022. She felt slightly better in terms of energy and much better in terms of restless leg syndrome symptoms. She continues to feel pretty good forthe most part. No significant fatigue or changes [...] IV x 2 doses: 01/28/2022 and 02/04/2022 [facility] - Medical History Medical History: Medical [...] (Verified 11/02/22 09:45) Diarrhea bacitracin [From Neosporin (ccx-ycv-dkqkv)] Adverse Reaction (Verified 11/02/22 09:45) Blister contact metal agent Adverse Reaction (Verified 11/02/22 09:45) Rash neomycin [From Neosporin (unl-yqx-uuadi)] Adverse Reaction (Verified 11/02/22 09:45) Blister petrolatum,white [From Petroleum Jelly] Adverse Reaction (Verified 11/02/22 09:45) Blister polymyxin B [From Neosporin (bry-vne-dnmck)] Adverse Reaction (Verified 11/02/2308:45) Blister Home Medications [...] pen (Lantus Solostar U-100 Insulin) 25 unit subcutQHS 12/14/19 [History Confirmed 11/02/22] levothyroxine 75 mcg [...] PO QNOON 12/17/19 [History Confirmed 11/02/22] omega 6-ibk-rvw-fish oil 1,000 mg (120 mg-180 mg) capsule (Fish Oil) 1 cap PO BID 12/17/19 [HistoryConfirmed 11/02/22] vitamin B complex (B-Complex tablet) 1 [...] Sodium 136, Potassium 4.3, Chloride 100, Carbon Zrsbcni16.9, Anion Gap 11.4, BUN 22, Creatinine 0.76, Est GFR (CKD- EPI) > 60.0, Glucose 118 H, Calcium 9.2, [...] % (Auto) 60.6, Lymph % (Auto) 26.9, [place] % (Auto) 9.5, Eos % (Auto) 1.7, Baso % (Auto) 1.3, Nucleat RBC Rel Count 0.2, Neut # (Auto) 3.8, Lymph # (Auto) 1.7, [place] # (Auto) 0.6, Eos # (Auto) 0.1, [...] with no acute findings other than chronic, inactivegastritis. Is not taking NSAIDS as previously advised [...] for coordination of care (as documented) and babc-nf-myya counseling of patient and/or family. Dictated By: Taylor Tijerina APRN DD/ 1000 Signed By: <Electronically signed by CARMELA Tijerina> 11/02/22 1002 [facility] Work Phone: 1(256) 765-520903-28-2023 Progress note Author [facility] August 10, 2022 11:00amNote Date/TimeMarch 2022 11:10a[facility] [place] [address] Hem/Onc Follow Up Note - OP Signed Patient: Nuvia Martin MR#: [id number] : 1945 Acct:[id number] Age/Sex: 77 / F Type: REG RCR [...] symptoms. She continues to feel pretty good forthe most part. No significant fatigue or changes [...] sat low at 15.4% and ferritin 27.4 [facility] - Medical History Medical History: Medical [...] (Verified 07/30/22 10:44) Diarrhea bacitracin [From Neosporin (wta-opm-tucju)] Adverse Reaction (Verified 07/30/22 10:44) Blister contact metal agent Adverse Reaction (Verified 07/30/22 10:44) Rash neomycin [From Neosporin (hse-lbn-ixvss)] Adverse Reaction (Verified 07/30/22 10:44) Blister petrolatum,white [From Petroleum Jelly] Adverse Reaction (Verified 07/30/22 10:44) Blister polymyxin B [From Neosporin (eky-zjd-gdbcv)] Adverse Reaction (Verified 07/30/2309:44) Blister Home Medications [...] pen (Lantus Solostar U-100 Insulin) 25 unit subcutQHS 12/14/19 [History Confirmed 07/30/22] levothyroxine 75 mcg [...] PO QNOON 12/17/19 [History Confirmed 07/30/22] omega 1-fha-dxu-fish oil 1,000 mg (120 mg-180 mg) capsule (Fish Oil) 1 cap PO BID 12/17/19 [HistoryConfirmed 07/30/22] vitamin B complex (B-Complex tablet) 1 [...] with no acute findings other than chronic, inactivegastritis. Is not taking NSAIDS as previously advised [...] for coordination of care (as documented) and thod-bv-gklc counseling of patient and/or family. Dictated By: Taylor Tijerina APRN DD/ 1110 Signed By: <Electronically signed by CARMELA Tijerina> 08/10/22 [address] [facility] Work Phone: 1(535) 970-755412-12-2022 Progress note Author [facility] April 26, 2022 3:23pmNote Date/TimeDecemb2021 3:16pm[facility] at [address] [address] Hem/Onc Follow Up Note - OP Signed Patient: Nuvia Martin MR#: [id number] : 1945 Acct:[id number] Age/Sex: 76 / F Type: REG RCR [...] symptoms. She continues to feel pretty good forthe most part. No significant fatigue or changes [...] history of asthma, hives, eczema or rhinitis. [facility] - Medical History Medical History: Medical [...] (Verified 04/26/22 09:36) Diarrhea bacitracin [From Neosporin (yvy-eyo-rvqte)] Adverse Reaction (Verified 04/26/22 09:36) Blister contact metal agent Adverse Reaction (Verified 04/26/22 09:36) Rash neomycin [From Neosporin (yqt-noe-elxuq)] Adverse Reaction (Verified 04/26/22 09:36) Blister petrolatum,white [From Petroleum Jelly] Adverse Reaction (Verified 04/26/22 09:36) Blister polymyxin B [From Neosporin (qfm-zgy-rqcui)] Adverse Reaction (Verified 04/26/2209:36) Blister Home Medications [...] pen (Lantus Solostar U-100 Insulin) 25 unit subcutQHS 12/14/19 [History Confirmed 04/26/22] levothyroxine 75 mcg [...] PO QNOON 12/17/19 [History Confirmed 04/26/22] omega 2-yvu-rgi-fish oil 1,000 mg (120 mg-180 mg) capsule (Fish Oil) 1 cap PO BID 08/03/20 [HistoryConfirmed 04/26/22] vitamin B complex (B-Complex tablet) 1 [...] Neut % (Auto) 68.2, Lymph % (Auto) 20.8,[place] % (Auto) 6.9, Eos % (Auto) 3.3, Baso % (Auto) 0.8, Nucleat RBC Rel Count 0.1, Neut # (Auto) 4.7, Lymph # (Auto) 1.4, [place] # (Auto) 0.5, Eos # (Auto) 0.2, [...] with no acute findings other than chronic, inactivegastritis. She has since stopped taking NSAIDS as [...] for coordination of care (as documented) and oeor-va-dqxu counseling of patient and/or family. Dictated By: Emily Degroot APRN DD/ 1514 Signed By: <Electronically signed by CARMELA Degroot> 04/26/22 1523 [facility] Work Phone: 1(614) 324-606810-10-2022 Progress note Author [facility] February 22, 2022 12:49pmNote Date/TimeOct2021 12:45pmH[facility] [place] [address] Hem/Onc Follow Up Note - OP Signed Patient: Nuvia Martin MR#: [id number] : 1945 Acct:[id number] Age/Sex: 76 / F Type: REG RCR [...] lightheadedness. She had repeated fall episodes with nosyncope or near syncope. If mostly due to [...] history of asthma, hives, eczema or rhinitis. [facility] - Medical History Medical History: Medical [...] (Verified 02/22/22 11:05) Diarrhea bacitracin [From Neosporin (rqg-ork-fqjfz)] Adverse Reaction (Verified 02/22/22 11:05) Blister contact metal agent Adverse Reaction (Verified 02/22/22 11:05) Rash neomycin [From Neosporin (quy-aws-eldrj)] Adverse Reaction (Verified 02/22/22 11:05) Blister petrolatum,white [From Petroleum Jelly] Adverse Reaction (Verified 02/22/22 11:05) Blister polymyxin B [From Neosporin (jxc-kyw-mnbkh)] Adverse Reaction (Verified 02/22/2211:05) Blister Home Medications [...] pen (Lantus Solostar U-100 Insulin) 25 unit subcutQHS 12/14/19 [History Confirmed 02/22/22] levothyroxine 75 mcg [...] PO QNOON 12/17/19 [History Confirmed 02/22/22] omega 1-gtv-ypl-fish oil 1,000 mg (120 mg-180 mg) capsule (Fish Oil) 1 cap PO BID 12/17/19 [HistoryConfirmed 02/22/22] vitamin B complex (B-Complex tablet) 1 [...] % (Auto) N/A, Lymph % (Auto) N/A, [place] % (Auto) N/A, Eos % (Auto) N/A,Baso % (Auto) N/A, Neut # (Auto) N/A, Lymph # (Auto) N/A, [place] # (Auto) N/A, Eos# (Auto) N/A, Baso # (Auto) N/A, Nucleated RBC % (auto) 0.1, Band Neutrophils % 2, Lymphocytes % 21, Monocytes % 6, Basophils % 1, Segmented Neutrophils 68, Reactive Lymphocytes 2,Platelet Estimate Normal, Plt Morphology Comment Normal,RBC Morphology [...] for coordination of care (as documented) and zxav-st-kels counseling of patient and/or family. Dictated By: Marisabel Noel MD DD/ 1243 Signed By: <Electronically signed by Marisabel Noel MD> 02/22/22 1249 [facility] Work Phone: [phone]) 589-534710-05-2022 History of Present illness Narrative* Cassidy Julio MD - 02/17/2022 9:17 AM EDT Images from the original note were not included. EMERGENCY TRIAGE, TREAT AND TRANSPORT (ET3) DOCUMENTATION OF TELEHEALTH VISIT Date / Time: 02/17/2022 / 916 Name: Nuvia Maritn : 1945 SSN: [id number] EMS Agency: [facility] [x] Verbal consent obtained [] [...] by: Cassidy Julio MD documented in this [id number] Consult note Author [facility] January 19, 2022 2:52pmNote Date/TimeAugust 2021 12:54pmH[facility] [place] [address] Hem/Onc Consult Note - OP Signed Patient: Nuvia Martin MR#: [id number] : 1945 Acct:[id number] Age/Sex: 76 / F Type: REG RCR [...] a history of hyperlipidemia, hypothyroidism, HTN, COPD, diabetes,carotid artery stenosis, arthritis, cervical cancer, GERD, kidney [...] normal WBC andplatelets. Unable to locate [facility]ies from [facility]. She will have a colonoscopy and EGD in one week (beginning of January). On exam, she is significantly fatigued and feels weak. She denies any pica or dark/tarry stool, butadmits to restless legs that she has had for years. She also notes BLE neuropathy from her diabetes, as well as nausea without vomiting and intermittent constipation. The only time she gets heartburnis if she does not take her medications with food. Otherwise she denies dyspnea, chest pain, new bone pain, diarrhea, fevers, chills, sweats, or unintentional weight loss. [facility] - Medical History Medical History: Medical [...] (Verified 01/12/22 11:14) Diarrhea bacitracin [From Neosporin (olz-cix-jqjmt)] Adverse Reaction (Verified 01/12/22 11:14) Blister contact metal agent Adverse Reaction (Verified 01/12/22 11:14) Rash neomycin [From Neosporin (tea-anw-xloau)] Adverse Reaction (Verified 01/12/22 11:14) Blister petrolatum,white [From Petroleum Jelly] Adverse Reaction (Verified 01/12/22 11:14) Blister polymyxin B [From Neosporin (bwj-wcv-vxvyg)] Adverse Reaction (Verified 01/12/2211:14) Blister Home Medications [...] pen (Lantus Solostar U-100 Insulin) 25 unit subcutQHS 12/14/19 [History Confirmed 01/12/22] levothyroxine 75 mcg [...] PO QNOON 12/17/19 [History Confirmed 01/12/22] omega 7-neg-sbs-fish oil 1,000 mg (120 mg-180 mg) capsule (Fish Oil) 1 cap PO BID 12/17/19 [HistoryConfirmed 01/12/22] vitamin B complex (B-Complex) 1 tab [...] scattered small scabs to her BUE, chronic perpatient MUSCULOSKELETAL: Normal musculature, no joint deformities. EXTREMITIES: [...] for coordination of care (as documented) and jbak-vt-dbvj counseling of patient and/or family. Dictated By: Taylor Tijerina APRN DD/ 1241 Signed By: <Electronically signed by CARMELA Tijerina> 01/12/22 1403 <Electronically signed by Maciel Sofia II, DO> 01/19/22 1452 [facility] Work Phone: [phone] 933-893908-22-2022 NotePROCEDURE: XR ELBOW RT 2V HISTORY: Bone injury ; acute elbow pain after falling COMPARISON: None. FINDINGS: BONES:No fracture, acute abnormality, or significant arthropathy. SOFT TISSUES:Soft tissue swelling posterior to the proximal forearm. EFFUSION:None visible. OTHER: Negative. IMPRESSION: 1. No acute bone abnormality or joint effusion. Electronically authenticated by: GINGER BROOKS Date: 2022-01-04 13:57[facility]10-12-2021 Evaluation note* Encounter Date Diagnosis Assessment Notes Treatment Notes Treatment Clinical Notes Feb, Occlusion and stenos is of bilateral carotid arteries (ICD-10 - I65.23) Overall she has done well since her left CEA. We reviewed today's duplex studies together and her carotid occlusive disease is stable. We will continue to follow her along for annual surveillance carotid duplex studies. She will continue with her aspirin and statin medications daily. She verbalizesunderstanding of all discussion here today, agrees with plan at this time, denies any questions. Feb,urrent smoker (ICD-10 - F17.200) We discussed the various health risks associated with cigarette smoking and discussed my recommendation for smoking cessation. She does not state readiness for smoking cessation at this time. [employer] Other Evaluation note* Diagnosis Onset Date Resolution Status Iron deficiency anemia acute [facility] Work Phone: Evaluation note* Diagnosis Fall, [...] region and thigh documented in this encounter [facility] HealthcareEvaluation note* Diagnosis Acute bilateral low back pain with sciatica, sciatica laterality unspecified- Primary Lumbar spondylosis Lumbosacral spondylosis without myelopathy Bilateral hip pain Pain in joint, pelvic region and thigh documented in this encounter [facility] HealthcareEvaluation noteNo assessment information availableOhio [facility] Work Phone: Evaluation note* Diagnosis Other insomnia documented in this encounter [facility] HealthcareEvaluation note* Diagnosis Acute bilateral low back [...] artery without mention of cerebral infarction Claustrophobia (CMS/[facility]) Other isolated or specific phobias Type 2 diabetes mellitus with diabetic peripheral angiopathy without gangrene, without long-term current use of insulin (CMS/[facility]) Hypervitaminosis B6- Primary Other hyperalimentation Acute bilateral low back pain with bilateral sciatica Lumbar adjacent segment disease with spondylolisthesis Lumbar spondylosis Lumbosacral spondylosis without myelopathy Stenosis of carotid artery, unspecified laterality Lumbar paraspinal muscle spasm Other symptoms referable to back Carpal tunnel syndrome, bilateral Carpal tunnel syndrome Migraine without aura and without status migrainosus, not intractable (CMS/[facility]) OLIVA (obstructive sleep apnea) Obstructive sleep apnea (adult) (pediatric) Routine general medical examination at health care facility- Primary Routine general medical examination at a health care facility Type 2 diabetes mellitus with diabetic peripheral angiopathy without gangrene, without long-term current use of insulin (CMS/[facility]) Peripheral vascular disease, unspecified (CMS/HCC) Peripheral vascular disease, unspecified Heart failure, unspecified (CMS/[facility]) Heart failure, unspecified Epilepsy, unspecified, not intractable, without status epilepticus (CMS/[facility]) Other secondary pulmonary hypertension (CMS/[facility]) Atherosclerosis of aorta ([facility]) Atherosclerosis of aorta Medicare annual wellness visit, subsequent Diabetes mellitus with peripheral vascular disease ([facility]) Other insomnia documented in this [...] of insulin (CMS/HCC) documented in this encounter [facility]* Diagnosis Essential hypertension (CMS/HCC) Unspecified [...] subsequent Diabetes mellitus with peripheral vascular disease ([facility]/HCC) Type 2 diabetes mellitus with diabetic polyneuropathy, with long-term current use of insulin (CMS/HCC)- Primary Mixed hyperlipidemia (CMS/HCC) Mixed hyperlipidemia Agitation states as acute reaction to exceptional (gross) stress Predominant psychomotor disturbance as reaction to stress Essential hypertension (CMS/HCC) Unspecified essential hypertension Other insomnia Hypertensive emergency (CMS/[facility]) documented [facility] this encounter [facility]* Diagnosis Acute bilateral low back pain with sciatica, sciatica laterality unspecified- Primary Type 2 diabetes mellitus with diabetic polyneuropathy, with long-term current use of insulin (CMS/[facility]) Lumbar spondylosis Lumbosacral spondylosis without myelopathy Lumbar adjacent segment disease with spondylolisthesis- Primary Acute bilateral low back pain with bilateral sciatica Type 2 diabetes mellitus with diabetic polyneuropathy, with long-term current use of insulin (CMS/HCC) Bilateral carotid artery stenosis Occlusion and stenosis of carotid artery without mention of cerebral infarction Claustrophobia (CMS/[facility]) Other isolated or specific phobias Type 2 diabetes mellitus with diabetic peripheral angiopathy without gangrene, without long-term current use of insulin (/[facility]) Hypervitaminosis B6- Primary Other hyperalimentation Acute bilateral low back pain with bilateral sciatica Lumbar adjacent segment disease with spondylolisthesis Lumbar spondylosis Lumbosacral spondylosis without myelopathy Stenosis of carotid artery, unspecified laterality Lumbar paraspinal muscle spasm Other symptoms referable to back Carpal tunnel syndrome, bilateral Carpal tunnel syndrome Migraine without aura and without status migrainosus, not intractable ([facility]) OLIVA (obstructive sleep apnea) Obstructive [...] secondary pulmonary hypertension (CMS/HCC) Atherosclerosis of aorta ([facility]/HCC) Atherosclerosis of aorta Medicare annual wellness visit, subsequent Diabetes mellitus with peripheral vascular disease ([facility]) Type 2 diabetes mellitus with diabetic polyneuropathy, with long-term current use of insulin (CMS/HCC)- Primary Mixed hyperlipidemia (CMS/HCC) Mixed hyperlipidemia Agitation states as acute reaction to exceptional (gross) stress Predominant psychomotor disturbance as reaction to stress Essential hypertension (CMS/HCC) Unspecified essential hypertension Other insomnia Hypertensive emergency (CMS/HCC) Essential hypertension (CMS/HCC) Unspecified essential hypertension documented in this encounter [facility] HealthcareEvaluation [facility]* Diagnosis Acute bilateral [...] subsequent Diabetes mellitus with peripheral vascular disease (CMS/[facility]) Type 2 diabetes mellitus with diabetic polyneuropathy, with long-term current use of insulin (CMS/HCC)- Primary Mixed hyperlipidemia ([facility]/HCC) Mixed hyperlipidemia Agitation states as acute reaction to exceptional (gross) stress Predominant psychomotor disturbance as reaction to stress Essential hypertension ([facility]/HCC) Unspecified essential hypertension Other insomnia Hypertensive emergency ([facility]) Other insomnia documented in this encounter [facility]* Diagnosis Acute bilateral low back pain with sciatica, sciatica laterality unspecified- Primary Type 2 diabetes mellitus with diabetic polyneuropathy, with long-term current use of insulin ([facility]) Lumbar spondylosis Lumbosacral spondylosis without myelopathy Lumbar adjacent segment disease with spondylolisthesis- Primary Acute bilateral low back pain with bilateral sciatica Type 2 diabetes mellitus with diabetic polyneuropathy, with long-term current use of insulin ([facility]) Bilateral carotid artery stenosis Occlusion and stenosis of carotid artery without mention of cerebral infarction Claustrophobia ([facility]) Other isolated or specific phobias Type 2 diabetes mellitus with diabetic peripheral angiopathy without gangrene, without long-term current use of insulin ([facility]) Hypervitaminosis B6- Primary Other hyperalimentation Acute bilateral low back pain with bilateral sciatica Lumbar adjacent segment disease with spondylolisthesis Lumbar spondylosis Lumbosacral spondylosis without myelopathy Stenosis of carotid artery, unspecified laterality Lumbar paraspinal muscle spasm Other symptoms referable to back Carpal tunnel syndrome, bilateral Carpal tunnel syndrome Migraine without aura and without status migrainosus, not intractable ([facility]) OLIVA (obstructive sleep apnea) Obstructive sleep apnea (adult) (pediatric) Routine general medical examination at health care facility- Primary Routine general medical examination at a health care facility Type 2 diabetes mellitus with diabetic peripheral angiopathy without gangrene, without long-term current use of insulin ([facility]) Peripheral vascular disease, unspecified ([facility]) Peripheral vascular disease, unspecified Heart failure, unspecified ([facility]) Heart failure, unspecified Epilepsy, unspecified, not intractable, without status epilepticus Other secondary pulmonary hypertension Atherosclerosis of aorta ([facility]) Atherosclerosis of aorta Medicare annual wellness visit, subsequent Diabetes mellitus with peripheral vascular disease ([facility]) Type 2 diabetes mellitus with diabetic polyneuropathy, with long-term current use of insulin ([facility])- Primary Mixed hyperlipidemia ([facility]) Mixed hyperlipidemia Agitation states as acute reaction to exceptional (gross) stress Predominant psychomotor disturbance as reaction to stress Essential hypertension (CMS/HCC) Unspecified essential hypertension Other insomnia Hypertensive emergency (CMS/HCC) Other insomnia documented in this encounter [facility] HealthcareEvaluation [facility]* Diagnosis Acute bilateral [...] artery without mention of cerebral infarction Claustrophobia (CMS/[facility]) Other isolated or specific phobias [...] aura and without status migrainosus, not intractable (CMS/[facility]) OLIVA (obstructive sleep apnea) Obstructive sleep apnea (adult) (pediatric) Routine general medical examination at health care facility- Primary Routine general medical examination at a health care facility Type 2 diabetes mellitus with diabetic peripheral angiopathy without gangrene, without long-term current use of insulin (CMS/[facility]) Peripheral vascular disease, unspecified (CMS/HCC) Peripheral vascular disease, unspecified Heart failure, unspecified (CMS/HCC) Heart failure, unspecified Epilepsy, unspecified, not intractable, without status epilepticus Other secondary pulmonary hypertension Atherosclerosis of aorta (CMS/[facility]) Atherosclerosis of aorta Medicare annual wellness visit, subsequent Diabetes mellitus with peripheral vascular disease ([facility]) Type 2 diabetes mellitus with diabetic polyneuropathy, with long-term current use of insulin (CMS/HCC)- Primary Mixed hyperlipidemia (CMS/HCC) Mixed hyperlipidemia Agitation states as acute reaction to exceptional (gross) stress Predominant psychomotor disturbance as reaction to stress Essential hypertension (CMS/HCC) Unspecified essential hypertension Other insomnia Hypertensive emergency (CMS/[facility]) Diabetes mellitus with peripheral vascular disease (CMS/HCC)- Primary Epilepsy, unspecified, not intractable, without status epilepticus Other secondary pulmonary hypertension Heart failure, unspecified (CMS/HCC) Heart failure, unspecified Benign hypertension (CMS/HCC) Essential hypertension, benign Grade II diastolic dysfunction Type 2 diabetes mellitus with diabetic polyneuropathy, with long-term current use of insulin (CMS/HCC) Bilateral carotid bruits documented in this encounter [facility] HealthcareEvaluation note* Diagnosis Acute bilateral [...] bruits Other insomnia documented in this encounter [facility] HealthcareEvaluation note* Diagnosis Acute bilateral low back [...] Unspecified essential hypertension documented in this encounter [facility] HealthcareEvaluation note* Diagnosis Acute bilateral low back [...] bruits Other insomnia documented in this encounter [facility] HealthcareEvaluation note* Diagnosis Acute bilateral [...] bruits Other insomnia documented in this encounter [facility] HealthcareEvaluation note* Diagnosis Acute bilateral [...] of insulin (HCC) documented in this encounter [facility] HealthcareEvaluation note* Diagnosis Acute bilateral low back [...] Description Date Medical History carotid stenosis Medical HistoryDMMedical HistoryHTNMedical HistoryHyperlipidemiaMedical History COPDMedical HistoryGERDMedical HistoryHYPOTHYROIDISMSurgical HistoryCarotid endarterectomy [id number] [id number] HistoryHysterectomy 1992Surgical HistoryLEFT CEAHospitalization Historysee aboveHospitalization HistorypgeisertHospitalization HistoryACUTE DELIRIUM;10/02/20 [employer] Other Progress note Author Taylor [facility] November 02, 2022 10:02amNote Date/TimeJun2022 10:01[facility] [place] [address] Hem/Onc Follow Up Note - OP Signed Patient: Nuvia Martin MR#: [id number] : 1945 Acct:[id number] Age/Sex: 77 / F Type: REG RCR Copies to: Wily Prado MD~ Subjective Date/Time of Service: Date of Service: 11/02/2022 Time of Service: 10:00 Chief Complaint: Patient is here today for a 3 month follow up visit for iron deficiency anemia andgo over labs HPI: Patient is a 76-year-old white lady seen with her daughter for hematologic surveillance on iron deficiency anemia. She received Injectafer in January 2022. She felt slightly better in terms of energy and much better in terms of restless leg syndrome symptoms. She continues to feel pretty good forthe most part. No significant fatigue or changes [...] IV x 2 doses: 01/28/2022 and 02/04/2022 [facility] - Medical History Medical History: Medical [...] (Verified 11/02/22 09:45) Diarrhea bacitracin [From Neosporin (epk-kky-ucyrf)] Adverse Reaction (Verified 11/02/22 09:45) Blister contact metal agent Adverse Reaction (Verified 11/02/22 09:45) Rash neomycin [From Neosporin (ein-mxp-crtem)] Adverse Reaction (Verified 11/02/22 09:45) Blister petrolatum,white [From Petroleum Jelly] Adverse Reaction (Verified 11/02/22 09:45) Blister polymyxin B [From Neosporin (idu-nsn-nafnu)] Adverse Reaction (Verified 11/02/2308:45) Blister Home Medications [...] pen (Lantus Solostar U-100 Insulin) 25 unit subcutQHS 12/14/19 [History Confirmed 11/02/22] levothyroxine 75 mcg [...] PO QNOON 12/17/19 [History Confirmed 11/02/22] omega 4-lwg-ahu-fish oil 1,000 mg (120 mg-180 mg) capsule (Fish Oil) 1 cap PO BID 12/17/19 [HistoryConfirmed 11/02/22] vitamin B complex (B-Complex tablet) 1 [...] Sodium 136, Potassium 4.3, Chloride 100, Carbon Vdwvzim36.9, Anion Gap 11.4, BUN 22, Creatinine 0.76, Est GFR (CKD- EPI) > 60.0, Glucose 118 H, Calcium 9.2, [...] % (Auto) 60.6, Lymph % (Auto) 26.9, [place] % (Auto) 9.5, Eos % (Auto) 1.7, Baso % (Auto) 1.3, Nucleat RBC Rel Count 0.2, Neut # (Auto) 3.8, Lymph # (Auto) 1.7, [place] # (Auto) 0.6, Eos # (Auto) 0.1, [...] with no acute findings other than chronic, inactivegastritis. Is not taking NSAIDS as previously advised [...] for coordination of care (as documented) and lntv-in-sjjw counseling of patient and/or family. Dictated By: Taylor Tijerina APRN DD/ 1000 Signed By: <Electronically signed by CARMELA Tijerina> 11/02/22 1002 [facility] Work Phone: Progress note Author Taylor [facility] February 01, 2023 11:23amNote Date/TimeSeptember 2022 11:04am[facility] [address] [address] Hem/Onc Follow Up Note - OP Signed Patient: Nuvia Martin MR#: [id number] : 1945 Acct:[id number] Age/Sex: 77 / F Type: REG RCR [...] Given stability, will push f/u and labs to6mo Follow Up Instructions: cbc, cmp, iron studies [...] symptoms. She continues to feel pretty good forthe most part. No significant fatigue or changes [...] for coordination of care (as documented) and slcy-fm-ttdt counseling of patient and/or family. [facility] - Medical History Medical History: Medical [...] Sodium 136, Potassium 4.2, Chloride 102, Carbon Cheopnw75.6, Anion Gap 7.6, BUN 24, Creatinine 0.90, Est GFR (CKD- EPI) > 60.0, Glucose 118 H, Calcium 9.1, [...] % (Auto) 61.7, Lymph % (Auto) 26.2, [place] % (Auto) 9.2, Eos % (Auto) 2.0, Baso % (Auto) 0.9, Nucleat RBC Rel Count 0.1, Neut # (Auto) 4.2, Lymph # (Auto) 1.8, [place] # (Auto) 0.6, Eos # (Auto) 0.1, Baso # (Auto) 0.1 - Home Medications and Allergies Allergies/Adverse Reactions: Allergies cimetidine [From Tagamet] Allergy (Verified 02/01/23 10:56) Diarrhea bacitracin [From Neosporin (bbv-ikq-mlbhr)] Adverse Reaction (Verified 02/01/23 10:56) Blister contact metal agent Adverse Reaction (Verified 02/01/23 10:56) Rash neomycin [From Neosporin (kft-pml-emxyk)] Adverse Reaction (Verified 02/01/23 10:56) Blister petrolatum,white [From Petroleum Jelly] Adverse Reaction (Verified 02/01/23 10:56) Blister polymyxin B [From Neosporin (gab-zqv-zgpap)] Adverse Reaction (Verified 02/01/2310:56) Blister Home Medications: [...] pen (Lantus Solostar U-100 Insulin) 25 unit subcutQHS 12/14/19 [History Confirmed 02/01/23] levothyroxine 75 mcg [...] PO QNOON 12/17/19 [History Confirmed 02/01/23] omega 0-aoy-gra-fish oil 1,000 mg (120 mg-180 mg) capsule (Fish Oil) 1 cap PO BID 12/17/19 [HistoryConfirmed 02/01/23] vitamin B complex (B-Complex tablet) 1 [...] <Electronically signed by CARMELA Tijerina> 02/01/23 1123 [facility] Work Phone: Reason for referral (narrative)* Consultation (Routine) - Pending ReviewSpecialtyDiagnoses / ProceduresReferred By Contact Referred To [facility] Medicine Diagnoses Lumbar spondylosis 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 claudication Procedures MT OFFICE/OUTPATIENT NEW HIGH MDM 60 MINUTES Wily Prado MD [address] [facility] [address] [place] [address] Danitza Murray MD [address] [place] [address] Referral IDStatusReasonStart DateExpiration DateVisits RequestedVisits [id number] Review Specialty Services Required / [facility] Summary Purpose Family History Relationship Condition Age at Onset Recorded Date/T rosa Not Specified Malignant neoplasm of pancreas Unknown Diabetes mellitusUnknownMalignant neoplasm of breastUnknownfatherDiabetes mellitusUnknownHeart diseaseUnknownsisterMalignant neoplasm of breastUnknown Relationship Condition Age at Onset Recorded Date/T rosa Not Specified Malignant neoplasm of pancreas Unknown Diabetes mellitusUnknownMalignant neoplasm of breastUnknownfatherDiabetes mellitusUnknownHeart diseaseUnknownsisterMalignant neoplasm of breastUnknown brotherMalignant neoplasm of breastUnknownMalignant neoplasmUnknownHypertension UnknownfatherHeart diseaseUnknownDeceasedUnknownNot SpecifiedDeceasedUnknown Relationship Condition Age at Onset Recorded Date/T rosa mother Malignant neoplasm of pancreas Unknown Diabetes mellitusUnknownMalignant neoplasm of breastUnknownfatherDiabetes mellitusUnknownHeart diseaseUnknownsisterMalignant neoplasm of breastUnknown brotherMalignant neoplasm of breastUnknownMalignant neoplasmUnknownHypertension UnknownfatherHeart diseaseUnknownDeceasedUnknownmotherDeceasedUnknown Advance Directives Advance Directive Response Recorded Date/ Time Advance Directives No December 11 3:31pm Advance Directive Response Recorded Date/ Time Advance Directives No December 11 2:31pm Chief Complaint and Reason for Visit Chief Complaint Iron Def /Anemia Reason for Visit Iron deficiency anem ia Chief Complaint Anemia Iron Def /AnemiaReason for VisitIron deficiency anemia Chief Complaint m43.16 m54.42 m54.41 Additional Source Comments INFORMATION SOURCE (unrecogn ized section and content) DATE CREATED AUTHOR 10/04/2021 [facility] DATE CREATED AUTHOR AUTHOR'S ORGANIZ ATION 01/25/2022 [facility] DATE CREATED AUTHOR AUTHOR'S ORGANIZ ATION 02/23/2022 [facility] DATE CREATED AUTHOR AUTHOR'S ORGANIZ ATION 03/09/2024 [facility] DATE CREATED AUTHOR AUTHOR'S ORGANIZ ATION 05/13/2024 [facility] DATE CREATED AUTHOR AUTHOR'S ORGANIZ ATION 10/23/2024 [facility] EPIC DATE CREATED AUTHOR AUTHOR'S ORGANIZ ATION 01/30/2025 [facility] REASON FOR VISIT (unrecogniz ed section and content) ReasonCommentsFallReasonOnset DateCommentsMed Lkswfu5806/16/2023[facility]ITALpecialtyDiagnoses / ProceduresReferred By ContactReferred To Contact Physical Therapy Diagnoses Acute bilateral low back pain with sciatica, sciatica laterality unspecified Lumbar spondylosis Procedures MT OFFICE/OUTPATIENT [facility] 60 MINUTES Wily Prado MD [address] [facility] [address] [place] [address] Som Sheffield, PT [address] [facility] [address] [place] [address] Referral IDStatusReasonStart DateExpiration DateVisits RequestedVisits [id number] Specialty Services Required /[id number] DateCommentsMed Vwqldp2902/15/2024easonOnset DateCommentsMed [id number] DateCommentsMed Ttgtxk2903/26/2024 SpecialtyDiagnoses / ProceduresReferred By ContactReferred To ContactPhysical Therapy Diagnoses Muscle spasm of back lumbar paraspinal muscle spasms Procedures consult and treat Logan Kaur MD [address] [facility] [address] [place] [address] Jalyn Guan, PT Referral IDStatusReasonStart DateExpiration DateVisits RequestedVisits [id number] Consult and Treat /[id number] pain managementReasonCommentsMed Refill ReasonOnset DateCommentsMed Xzjsyx1105/04/2024easonOnset DateCommentsMed Refill 08/09/2024ReasonOnset DateCommentsMed Ikocww5210/09/2024ReasonCommentsDiabetesLast A1c was 5.2ReasonOnset DateCommentsMed Vomoni7711/09/2024ReasonOnset DateComments Med Pftten8712/10/2024ReasonOnset DateCommentsMed Lvepdk0512/14/2024ReasonOnset Date CommentsMed Gwaofh5303/11/2025 Care Teams (unrecognized sec tion and content) [...] Provider, Referring Pro vider Active Taylor Tijerina , APRNAttending ProviderActive Team Status: Inactive Member Role Status Dates Wily Prado MD Primary Care Provider Active Jesse Tran , MDAttending ProviderActiveTeam MemberRelationshipSpecialtyStart DateEnd Date Wily Prado MD [address] [address] PCP - [facility]10/07/22 Wily Prado MD [address] [place] [address] PCP - GeneralFamily [facility]10/28/22Team MemberRelationshipSpecialtyStart DateEnd Date Wily Prado MD [address] [address] PCP - [facility]10/07/22 Wily Prado MD [address] [place] [address] PCP - [facility]10/28/22Team MemberRelationshipSpecialtyStart DateEnd Date Wily Prado MD [address] [place] [address] PCP - [facility]10/07/22 Wily Prado MD [address] [place] [address] PCP - [facility]10/28/22Team MemberRelationshipSpecialtyStart DateEnd Date Wily Prado MD [address] [facility] [address] [place] [address] PCP - [facility]10/07/22 Wily Prado MD [address] [place] [address] PCP - [facility]Em[facility]10/28/22Team MemberRelationshipSpecialtyStart DateEnd Date Wily Prado MD [address] [place] [address] PCP - [facility]10/07/22 Wily Prado MD [address] [place] [address] PCP - [facility]Em[facility]10/28/22Team MemberRelationshipSpecialtyStart DateEnd Date Wily Prado MD [address] [place] [address] PCP - [facility]10/07/22 Wily Prado MD [address] [place] [address] PCP - GeneralFamily Medicine10/28/22Team MemberRelationshipSpecialtyStart DateEnd Date Wily Prado MD [address] [facility] [address] [place] [address] PCP - [facility]10/07/22 Wily Prado MD [address] [facility] [address] [place] [address] PCP - [facility]10/28/22Team MemberRelationshipSpecialtyStart DateEnd Date Wily Prado MD [address] [facility] [address] [place] [address] PCP - [facility]10/07/22 Wily Prado MD [address] [facility] [address] [place] [address] PCP - Generalmi Medicine10/28/22Team MemberRelationshipSpecialtyStart DateEnd Date Wily Prado MD [address] [facility] [address] [place] [address] PCP - [facility]10/07/22 Wily Prado MD [address] [facility] [address] [place] [address] [facility]10/28/22Team MemberRelationshipSpecialtyStart DateEnd Date Wily Prado MD [address] [place] [address] PCP - [facility]10/07/22 Wily Prado MD [address] [place] [address] PCP - GeneralFamily Medicine10/28/22Team MemberRelationshipSpecialtyStart DateEnd Date Wily Prado MD [address] [place] [address] PCP - [facility]10/07/22 Wily Prado MD [address] [place] [address] PCP - GeneralFami Medicine10/28/22Team MemberRelationshipSpecialtyStart DateEnd Date Wily Prado MD [address] [facility] [address] [place] [address] PCP - [facility]10/07/22 Wily Prado MD [address] [place] [address] PCP - GeneralFami Medicine10/28/22Team MemberRelationshipSpecialtyStart DateEnd Date Wily Prado MD [address] [place] [address] PCP - [facility]10/07/22 Wily Prado MD [address] [place] [address] PCP - GeneralFamily Medicine10/28/22Team MemberRelationshipSpecialtyStart DateEnd Date Wily Prado MD [address] [place] [address] PCP - [facility]10/07/22 Wily Prado MD [address] [place] [address] PCP - GeneralFamiP[facility]10/28/22Team MemberRelationshipSpecialtyStart DateEnd Date Wily Prado MD [address] [place] [address] PCP - [facility]10/07/22 Wily Prado MD [address] [place] [address] PCP - [facility]10/28/22Te MemberRelationshipSpecialtyStart DateEnd Date Wily Prado MD [address] [place] [address] PCP - [facility]10/07/22 Wily Prado MD [address] [place] [address] PCP - [facility]10/28/22Te MemberRelationshipSpecialtyStart DateEnd Date Wily Prado MD [address] [place] [address] PCP - [facility]10/07/22 Wily Prado MD [address] [place] [address] PCP - [facility]10/28/22Te MemberRelationshipSpecialtyStart DateEnd Date Wily Prado MD [address] [place] [address] PCP - [facility]10/07/22 Wily Prado MD [address] [place] [address] PCP - [facility]10/28/22Te MemberRelationshipSpecialtyStart DateEnd Date Wily Prado MD [address] [place] [address] [facility] Wily Prado MD [address] [place] [address] PCP - [facility]10/28/22Te MemberRelationshipSpecialtyStart DateEnd Date Wily Prado MD [address] [place] [address] PCP - [facility]10/07/22 Wily Prado MD [address] [place] [address] PCP - [facility]10/28/22Te MemberRelationshipSpecialtyStart DateEnd Date Wily Prado MD [address] [place] [address] [facility] Wily Prado MD [address] [place] [address] PCP - [facility]10/28/22Te MemberRelationshipSpecialtyStart DateEnd Date Wily Prado MD [address] [place] [address] PCP - [facility]10/07/22 Wily Prado MD [address] [place] [address] PCP - [facility]10/28/22Te MemberRelationshipSpecialtyStart DateEnd Date Wily Prado MD [address] [place] [address] PCP - [facility]10/07/22 Wily Prado MD [address] [place] [address] [facility] - [facility]10/28/22Te MemberRelationshipSpecialtyStart DateEnd Date Wily Prado MD [address] [place] [address] [facility] - [facility]10/07/22 Wily Prado MD [address] [place] [address] [facility] - [facility]10/28/22Te MemberRelationshipSpecialtyStart DateEnd Date Wily Prado MD [address] [place] [address] PCP - [facility]10/07/22 Wily Prado MD [address] [place] [address] PCP - [facility]10/28/22 Madiha Busch, RN [address] [place] [address] Registered NurseFamily Medicine Goals (unrecognized section and content) Goals may [...] BE BASED ON THE PRIMARY CLINICAL RECORDS. [facility]. provides no warranty or guarantee of the accuracy or completeness of information in this document.
[2025-04-22 10:00] LABS: Hematocrit 39.4 % (36.0-48.0); Hemoglobin 13.1 g/dL (12.0-16.0); Immature Granulocytes Abs Auto 0.09 10^3/uL (0.00-0.03); Immature Granulocytes Pct Auto 1.0 % (0.0-0.5); Lymphocytes Absolute Auto 1.4 10^3/uL (1.2-3.8); Mean Corpuscular HGB Conc 33.2 g/dL (29.9-35.2); Mean Corpuscular Hemoglobin 31.9 pg (26.7-34.0); Mean Corpuscular Volume 95.9 fL (81.0-99.0); Platelet Count 291 10^3/uL (150-450); Red Blood Count 4.11 10^6/uL (4.20-5.40); White Blood Count 9.4 10^3/uL (4.0-11.0)
[2025-04-22 12:00] LABS: Alanine Aminotransferase 19 U/L (14-59); Albumin Globulin Ratio 0.9; Albumin Level 2.9 g/dL (3.4-5.0); Alkaline Phosphatase 38 U/L (46-116); Anion Gap 8.6; Aspartate Amino Transferase 25 U/L (15-37); Blood Urea Nitrogen 17.0 mg/dL (7.0-18.0); Calcium 8.6 mg/dL (8.5-10.1); Carbon Dioxide 30.7 mmol/L (21.0-32.0); Chloride 103 mmol/L (98-107); Cholesterol 125 mg/dL (<=200); Estimated GFR (African America >60 (>=60 mL/min/1.73m^2); Estimated GFR (Non-African Ame >60 (>=60 mL/min/1.73m^2); Globulin 3.4 g/dL; Glucose 70 mg/dL (74-106); HDL Cholesterol 32 mg/dL (40-60); Potassium 4.3 mmol/L (3.5-5.1); Sodium 138 mmol/L (136-145); Total Protein 6.3 g/dL (6.4-8.2); Triglycerides 214 mg/dL (<=150); VLDL CHOLESTEROL 42.8 mg/dL
[2025-04-22 12:00] LABS: Microalbum Creatinine Ratio Ur 361.8 mg/g (0.0-29.9)
== END 2025-04-22 08:00 | disposition home or self-care (01) ==
LOC: CT 07:59
PROVIDERS: PCP Family Medicine; Visit Provider Family Medicine
DX: Z00.00 Encounter for general adult medical examination without abnormal findings (principal); F17.210 Nicotine dependence, cigarettes, uncomplicated; R93.89 Abnormal findings on diagnostic imaging of other specified body structures; E28.39 Other primary ovarian failure; F17.200 Nicotine dependence, unspecified, uncomplicated; I10 Essential (primary) hypertension; E78.2 Mixed hyperlipidemia; E11.51 Type 2 diabetes mellitus with diabetic peripheral angiopathy without gangrene; J44.9 Chronic obstructive pulmonary disease, unspecified; M85.88 Other specified disorders of bone density and structure, other site; R42 Dizziness and giddiness
CPT/HCPCS: 36415; 71271; 77080; 80053; 80061; 82043; 82570; 85025; 93880